=== PATIENT | female | born 1955 | race Caucasian/White ===

== ENCOUNTER → 2016-03-25 | Outpatient (CLI) | payer MEDICARE, OTHER ==
[~2016-03-25] MED LIST: ACET-2267 PO; ACTOS; ACTOS15 MG PO; ACYC800T PO; ALBU8.5H4 IH; ALPR.5T; ALPR0.25 PO; AMIT150T PO; AMIT50TA3 PO; AMLO5TAB2 PO; AMT50T; ASPI-983 PO; ATEN50TA PO; ATOR10TA PO; AZIT-21 PO; BUDE10.22 IH; BUTA-234 PO; CALC-250 PO; CEFD300C3 PO; CETI-265 PO; CETI10TA17 PO; CHOL100048 PO; CHOL5000 PO; CLOP75TA28 PO; CYCL10TA9 PO; DICYCLOMINE; ENAL20TA PO; FERR160T5 PO; FLUT16SP22 NS; FLUT1DIS26 IH; FOLI-74 PO; GABA-486 PO; GLIP-123; GLIP10TA13 PO; GLIP5TAB13 PO; HYDR-34 PO; HYDR-3923 PO; INSU100V16 SC; INSU100V5 SQ; KETO10TA PO; LACT1CAP62 PO; LEVO750T39 PO; LIRA0.6P SQ; LORA0.5T PO; LVT.1T; LVT.1T PO; MECL-106 PO; MECL-124 PO; METF-380 PO; METF1000 PO; METO-270 PO; METO-272 PO; MGX400T PO; MONT10TA24 PO; Multivitamins/Minerals Therap PO; OMEP20TA2 PO; ONDA4TAB8 SL; PNT40TEC PO; PRD20T PO; PRM25T PO; PROM25TA14 PO; PROMETRIUM; RT-ALBUINH IH; SULF1TAB38 PO; TICA90TA PO; TRAM50TA2 PO; TRM50T PO; ZLP10T PO
== END ==
LOC: LAB 11:07
PROVIDERS: ATTEND Internal Medicine Cardiovascular Disease
DX: R07.89 Other chest pain (principal); I25.10 Atherosclerotic heart disease of native coronary artery without angina pectoris; E11.9 Type 2 diabetes mellitus without complications; I10 Essential (primary) hypertension; E78.2 Mixed hyperlipidemia
CPT/HCPCS: 36415; 84484

== ENCOUNTER → 2016-03-26 | Outpatient (CLI) | payer MEDICARE, OTHER ==
[~2016-03-26] MED LIST changes: +CATHETER FLUSH 10 ML SYR IV PRN; +REGADENOSON 0.4 MG/5 ML SYR (LEXISCAN) IV ONE
[2016-03-26 09:08] VITALS: BP 134/59
--- NOTE | 2016-03-27 07:45 | STRESS TEST ---
PROCEDURE PHYSICIAN: NGHIA GUTIERREZ DATE OF PROCEDURE: 03/26/2016 LEXISCAN MYOVIEW STRESS TEST REPORT: REFERRING PHYSICIAN: Dr. Colindres. INDICATION: Chest pain. BASELINE HEART RATE: 106 BASELINE BLOOD PRESSURE: 136/52 BASELINE EKG: Sinus rhythm with no ischemic changes. IN SUMMARY: The patient was injected with 10.58 mCi of technetium 99 Myoview and the resting images were obtained. Then the patient received 0.4 mg of Lexiscan followed by 30.6 mCi of technetium 99 Myoview. Throughout the test, there were no EKG changes. The resting and stress images were reviewed and compared in the short axis, horizontal long axis, and vertical long axis views. Review of the images showed good radiotracer uptake with no significant ischemia or infarction on SPECT images. SSS is 3, SDS 3, TID value 0.87. On the gated images, the left ventricle appeared to be normal size with normal contractility. Calculated ejection fraction 69%. IN CONCLUSION: 1. The patient tolerated Lexiscan well. 2. Typical female pattern with no significant ischemia or infarction on SPECT images. 3. Normal left ventricular size with normal contractility. Calculated ejection fraction 69%. Job ID: [id number] Dictated Date: 03/26/2016 16:26:52 Superintendent Sales Date: 03/27/2016 07:41:36 / [email or web address]
== END ==
LOC: CARD 06:47
PROVIDERS: ATTEND Internal Medicine Cardiovascular Disease
DX: R07.89 Other chest pain (principal); I25.10 Atherosclerotic heart disease of native coronary artery without angina pectoris; I10 Essential (primary) hypertension; E78.2 Mixed hyperlipidemia; E11.9 Type 2 diabetes mellitus without complications
CPT/HCPCS: 78452; 93017

== ENCOUNTER 2016-04-07 00:39 | Emergency (ER) | payer MEDICARE, OTHER ==
[~2016-04-07] VITALS: Ht 162.6 cm; Wt 107.0 kg
[~2016-04-07 00:39] MED LIST changes: -CALC-250 PO; -CATHETER FLUSH 10 ML SYR IV PRN; -CLOP75TA28 PO; -INSU100V16 SC; -INSU100V5 SQ; -LEVO750T39 PO; -LIRA0.6P SQ; -MECL-106 PO; -METO-270 PO; -METO-272 PO; -Multivitamins/Minerals Therap PO; -ONDA4TAB8 SL; -PROM25TA14 PO; -REGADENOSON 0.4 MG/5 ML SYR (LEXISCAN) IV ONE
[2016-04-07 00:58] LABS: BASOPHILS # (AUTO) 0.1 10^3/uL (0.0-0.1); BASOPHILS % (AUTO) 1 % (0-10); EOSINOPHILS # (AUTO) 0.3 10^3/uL (0.0-0.3); EOSINOPHILS % (AUTO) 3 % (0-10); LYMPHOCYTES # (AUTO) 2.4 X 10^3 (1.0-4.0); LYMPHOCYTES % (AUTO) 25 % (12-44); MEAN CORPUSCULAR HEMOGLOBIN 26 PG (25-34); MEAN CORPUSCULAR HGB CONC 31 G/DL (32-36); MEAN CORPUSCULAR VOLUME 84 FL (80-99); MEAN PLATELET VOLUME 9.9 FL (7.4-10.4); MONOCYTES # (AUTO) 0.5 X 10^3 (0.0-1.0); MONOCYTES % (AUTO) 5 % (0-12); NEUTROPHILS # (AUTO) 6.4 X 10^3 (1.8-7.8); NEUTROPHILS % (AUTO) 67 % (42-75); PLATELET COUNT 257 10^3/uL (130-400); RED BLOOD COUNT 3.93 10^6/uL (4.35-5.85); RED CELL DISTRIBUTION WIDTH 14.3 % (10.0-14.5); WHITE BLOOD COUNT 9.6 10^3/uL (4.3-11.0)
[2016-04-07] MEDS ORDERED: ONDANSETRON 4 MG/2 ML (SDV) Z0FRAN IVP ONE (01:00)
[2016-04-07 01:09] LABS: MAGNESIUM 1.6 MG/DL (1.8-2.4)
[2016-04-07] MEDS ORDERED: BUDE10.22 IH (01:11)
[2016-04-07] MEDS ORDERED: CLOP75TA28 PO (01:11)
[2016-04-07] MEDS ORDERED: CYCL10TA9 PO (01:11)
[2016-04-07] MEDS ORDERED: MECL-106 PO ×2 (01:11→03:23)
[2016-04-07] MEDS ORDERED: LIRA0.6P SQ (01:11)
[2016-04-07] MEDS ORDERED: METO-270 PO (01:11)
[2016-04-07] MEDS ORDERED: AMIT50TA3 PO (01:11)
[2016-04-07] MEDS ORDERED: NS IV 500 ML 500 ML IV ONE (01:21)
[2016-04-07] MEDS ORDERED: PROMETHAZINE INJ 25 MG/ML (PHENERGAN) AMP IVP ONE (01:30)
[2016-04-07] MEDS ORDERED: MECLIZINE 25 MG (ANTIVERT) TAB PO ONE (01:30)
[2016-04-07 01:37] LABS: THYROID STIMULATING HORMONE 5.21 UIU/ML (0.35-4.94); TROPONIN I < 0.30 NG/ML (<0.30)
[2016-04-07 01:42] LABS: ALBUMIN 3.9 G/DL (3.2-4.5); BILIRUBIN,TOTAL 0.2 MG/DL (0.1-1.0); CALCIUM 8.9 MG/DL (8.5-10.1); CREATININE SERUM 1.03 MG/DL (0.60-1.30); POTASSIUM 4.8 MMOL/L (3.6-5.0); TOTAL PROTEIN 6.6 G/DL (6.4-8.2)
--- NOTE | 2016-04-07 01:47 | ED General ---
General Chief Complaint: Dizziness/Syncope Stated Complaint: OVERDOSE OF INSULIN Nursing Triage Note: pt reports taking 18units of insulin and feeling dizzy. fsbs 267. Nursing Sepsis Screen: No Definite Risk Source of Information: Patient Exam Limitations: No Limitations History of Present Illness Time Seen by Provider: 00:51 Initial Comments This 60-year-old woman presents to the emergency room with complaints of dizziness, nausea, and vomiting. She reports some visual disturbance as well although her gross finger discrimination is intact. She has some visual problems at baseline because of cataracts that are inoperable while she is on Plavix. She has a history of coronary artery disease with prior stent placement and takes Plavix. She is not a have any chest pain or shortness of breath at present. She has some mild left upper quadrant discomfort which may be associated with the vomiting. She has a history of problems with dizziness or vertigo treated with meclizine. She reports this episode of dizziness is worse than her prior episodes. She presents symptoms that she had an overdose of insulin as she was just recently started on Basaglar which she took not long before symptoms started. Fingerstick blood sugar was 267. Dizziness is present even without head movement but seems to be worse with movement of the head, particularly to the left. Allergies and Home Medications Allergies Coded Allergies: Penicillins (Verified Allergy, Unknown, 10/22/06) acetaminophen (Verified Allergy, Unknown, 10/22/06) codeine (Verified Allergy, Unknown, UPSET STOMACH, 10/23/06) morphine (Unverified Allergy, Unknown, 12/12/14) propoxyphene (Verified Allergy, Unknown, 10/22/06) topiramate (Verified Allergy, Unknown, 10/22/06) Home Medications Albuterol Sulfate 18 Gm Hfa.aer.ad 1-2 PUFF IH QID (Reported) Amitriptyline HCl 50 Mg Tablet 50 MG PO UD (Reported) Aspirin 81 Mg Tablet.dr #100 81 MG PO DAILY Prescribed by: NGHIA GUTIERREZ on 12/27/15 0741 Atorvastatin Calcium 10 Mg Tablet #30 10 MG PO DAILY Prescribed by: NGHIA GUTIERREZ on 12/27/15 0742 Budesonide/Formoterol Fumarate 10.2 Gm Hfa.aer.ad 2 PUFF IH BID (Reported) Cetirizine HCl 10 Mg Tablet 10 MG PO DAILY (Reported) Clopidogrel Bisulfate 75 Mg Tablet #90 1 TAB PO UD (Reported) Cyclobenzaprine HCl 10 Mg Tablet 10 MG PO UD (Reported) Enalapril Maleate 20 Mg Tablet 20 MG PO DAILY (Reported) Fluticasone Propionate 16 Gm [place].susp 2 SPRAYS NS HS (Reported) Gabapentin 100 Mg Capsule 200 MG PO TID (Reported) TAKES 2 (100MG) CAPSULES Glipizide 10 Mg Tablet 10 MG PO BID (Reported) Hydralazine HCl 25 Mg Tablet 25 MG PO BID (Reported) Levothyroxine Sodium 100 Mcg Tablet 100 MCG PO DAILY (Reported) Liraglutide 0.6 Mg/0.1 Ml Pen.injctr 1.2 MG SQ UD (Reported) Lorazepam 0.5 Mg Tablet 0.5 MG PO TID PRN PRN ANXIETY (Reported) Meclizine HCl 25 Mg Tablet 25 MG PO UD (Reported) Meclizine HCl 25 Mg Tablet #30 25 MG PO Q6H PRN PRN DIZZINESS Prescribed by: DAVIN ADHIKARI on 04/07/16322 Metformin HCl 1,000 Mg Tablet #180 1 TAB PO BID (Reported) Metoprolol Succinate 25 Mg Tab.er.24h #90 1 TAB PO UD (Reported) Ondansetron 4 Mg Tab.rapdis #10 4 MG SL Q4H PRN PRN NAUSEA/VOMITING Prescribed by: DAVIN ADHIKARI on 04/07/16322 Promethazine HCl 25 Mg Tablet #10 25 MG PO Q6H PRN PRN NAUSEA/VOMITING Prescribed by: DAVIN ADHIKARI on 04/07/163 Constitutional: no symptoms reported EENTM: see HPI Respiratory: no symptoms reported Cardiovascular: no symptoms reported Gastrointestinal: see HPI Genitourinary: no symptoms reported : No Musculoskeletal: no symptoms reported Skin: no symptoms reported Psychiatric/Neurological: See HPI Hematologic/Lymphatic: No Symptoms Reported Past Msvplyo-Bzqrgv-Udwrmy Hx Patient Social History Alcohol Use: Denies Use Recreational Drug Use: No Smoking Status: Never a Smoker Recent Foreign Travel: No Contact w/Someone Who Travel: No Recent Infectious Disease Expo: No Recent Hopitalizations: No Physical Abuse Screen: No Sexual Abuse: No Immunizations Up To Date Tetanus Booster (TDap): Unknown Date of Pneumonia Vaccine: Jan 06, 2008 Date of Influenza Vaccine: Dec 19, 2014 Seasonal Allergies Seasonal Allergies: No Surgeries HX Surgeries: Yes (FOOT) Surgeries: Appendectomy, Coronary Stent, Gallbladder, Orthopedic, Thyroidectomy Respiratory Hx Respiratory Disorders: Yes (CPAP) Respiratory Disorders: Asthma, Sleep Apnea, COPD Cardiovascular Hx Cardiac Disorders: Yes Cardiac Disorders: Cardiomyopathy, Coronary Artery Disease, High Cholesterol, Hypertension Neurological Hx Neurological Disorders: No 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 System : No Hx 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 Disorders: No Sexually Transmitted Disease: No SOLUTION SPEC History: Menopausal Genitourinary Hx Genitourinary Disorders: No Gastrointestinal Hx Gastrointestinal Disorders: No Musculoskeletal Hx Musculoskeletal Disorders: Yes (ARTHRITIS, LUPUS) Musculoskeletal Disorders: Arthritis Endocrine Hx Endocrine Disorders: Yes Endocrine Disorders: Diabetes, Insulin dep, Hypothyroidsim HEENT HX ENT Disorders: Yes (19 ROOT CANALS, TEETH MISSING) Cancer Hx Cancer: No Psychosocial Hx Psychiatric Problems: Yes Behavioral Health Disorders: Anxiety Integumentary HX Skin/Integumentary Disorder: No Blood Transfusions Hx Blood Disorders: No Adverse Reaction to a Blood Tr: No Family Medical History Family Medial History: Patient reports no known family medical history. Physical Exam Vital Signs Vital Sign - Last 12Hours 04/07/16 00:46 Temp 96.5 Pulse 93 Resp 18 B/P 157/94 Pulse Ox 97 O2 Delivery Room Air Capillary Refill : Less Than 3 Seconds General Appearance: No Apparent Distress WD/WN HEENT: PERRL/EOMI TMs Normal Normal ENT Inspection Pharynx Normal Neck: Normal Inspection SuppleNo Carotid Bruit Respiratory: Lungs Clear Normal Breath Sounds No Accessory Muscle Use No Respiratory Distress Cardiovascular: Regular Rate, Rhythm No Edema No Murmur Normal Peripheral Pulses Gastrointestinal: Normal Bowel Sounds Soft Tenderness (minimal on the left upper quadrant) Back: Normal Inspection Extremity: Normal Inspection No Pedal Edema Neurologic/Psychiatric: Alert Oriented x3 No Motor/Sensory Deficits 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 Norm as Tested Skin: Normal Color Warm/Dry Progress/Results/Core Measures Results/Orders Lab Results Laboratory Tests Test 04/07/16 00:45 04/07/16 01:55 Range/Units Alanine Aminotransferase (ALT/SGPT) 34 0-55 U/L Albumin 3.9 3.2-4.5 G/DL Alkaline Phosphatase 120 40-136 U/L Anion Gap 13 5-14 MMOL/L Aspartate Amino Transf (AST/SGOT) 32 5-34 U/L BUN/Creatinine Ratio 21 Basophils # (Auto) 0.1 0.0-0.1 10^3/uL Basophils (%) (Auto) 1 0-10 % Blood Urea Nitrogen 22 H 7-18 MG/DL Calcium Level 8.9 8.5-10.1 MG/DL Carbon Dioxide Level 19 L 21-32 MMOL/L Chloride Level 103 98-107 MMOL/L Creatinine 1.03 0.60-1.30 MG/DL Eosinophils # (Auto) 0.3 0.0-0.3 10^3/uL Eosinophils (%) (Auto) 3 0-10 % Estimat Glomerular Filtration Rate 54 Free Thyroxine 0.97 0.70-1.48 NG/DL Glucometer 267 H 70-110 MG/DL Glucose Level 259 H 70-105 MG/DL Hematocrit 33 L 35-52 % Hemoglobin 10.3 L 11.5-16.0 G/DL Lipase 56 8-78 U/L Lymphocytes # (Auto) 2.4 1.0-4.0 X 10^3 Lymphocytes (%) (Auto) 25 12-44 % Magnesium Level 1.6 L 1.8-2.4 MG/DL Mean Corpuscular Hemoglobin 26 25-34 PG Mean Corpuscular Hemoglobin Concent 31 L 32-36 G/DL Mean Corpuscular Volume 84 80-99 FL Mean Platelet Volume 9.9 7.4-10.4 FL Monocytes # (Auto) 0.5 0.0-1.0 X 10^3 Monocytes (%) (Auto) 5 0-12 % Neutrophils # (Auto) 6.4 1.8-7.8 X 10^3 Neutrophils (%) (Auto) 67 42-75 % Platelet Count 257 130-400 10^3/uL Potassium Level 4.8 3.6-5.0 MMOL/L Red Blood Count 3.93 L 4.35-5.85 10^6/uL Red Cell Distribution Width 14.3 10.0-14.5 % Sodium Level 135 135-145 MMOL/L TSH [place] Testing 5.21 H 0.35-4.94 UIU/ML Thyroid Stimulating Hormone (TSH) 5.21 H 0.35-4.94 UIU/ML Total Bilirubin 0.2 0.1-1.0 MG/DL Total Protein 6.6 6.4-8.2 G/DL Troponin I < 0.30 <0.30 NG/ML White Blood Count 9.6 4.3-11.0 10^3/uL Urine Bacteria TRACE /HPF Urine Bilirubin NEGATIVE NEGATIVE Urine Casts NONE /LPF Urine Clarity SLIGHTLY CLOUDY Urine Color YELLOW Urine Crystals NONE /LPF Urine Culture Indicated NO Urine Glucose (UA) 4+ H NEGATIVE Urine Ketones NEGATIVE NEGATIVE Urine Leukocyte Esterase 1+ H NEGATIVE Urine Mucus SMALL H /LPF Urine Nitrite NEGATIVE NEGATIVE Urine Protein NEGATIVE NEGATIVE Urine RBC NONE /HPF Urine RBC (Auto) NEGATIVE NEGATIVE Urine Specific [place] 1.020 1.016-1.022 Urine Squamous Epithelial Cells 10-25 H /HPF Urine Urobilinogen NORMAL NORMAL MG/DL Urine WBC RARE /HPF Urine pH 5 5-9 My Orders Orders-DAVIN DODSON MD Cbc With Automated Diff (04/07/16 00:49) Magnesium (04/07/16 00:49) Thyroid Analyzer (04/07/16 00:49) Troponin I (04/07/16 00:49) Ua Culture If Indicated (04/07/16 00:49) Influenza A And B Antigens (04/07/16 00:49) Accucheck Stat ONCE (04/07/16 00:49) Saline Lock/Iv-Start (04/07/16 00:49) Ekg Tracing (04/07/16 00:49) Monitor-Rhythm Ecg Trace Only (04/07/16 00:49) Chest 1 View, Ap/Pa Only (04/07/16 00:49) Ondansetron Injection (Zofran Injectio (04/07/16 01:00) Thyroid Stimulating Hormone (04/07/16 00:52) Free T4 (Free Thyroxine) (04/07/16 00:52) Ns Iv 500 Ml (Sodium Chloride 0.9%) (04/07/16 01:21) Meclizine Tablet (Antivert Tablet) (04/07/16 01:30) Promethazine Injection (Phenergan Injec (04/07/16 01:30) Comprehensive Metabolic Panel (04/07/16 01:24) Ct Angio Head/Neck (04/07/16 01:40) Lipase (04/07/16 01:50) Iohexol Injection (Omnipaque 350 Mg/Ml 1 (04/07/16 02:00) Ns (Ivpb) (Sodium Chloride 0.9% Ivpb Bag (04/07/16 02:00) Rx-Ondansetron Po (Rx-Zofran Po) (04/07/16 03:16) Rx-Promethazine Hcl (Rx-Phenergan Supp) (04/07/16 03:16) Rx-Meclizine Hcl (Rx-Antivert) (04/07/16 03:16) Medications Given in ED Current Medications Medications Dose Ordered Sig/Katrina Route Start Time Stop Time Status Last Admin Dose Admin Iohexol 85 ml ONCE ONCE IV 04/07/16 02:00 04/07/16 02:31 DC 04/07/16 02:13 85 ML Meclizine HCl 25 mg ONCE ONCE PO 04/07/16 01:30 04/07/16 01:31 DC 04/07/16 01:25 25 MG Ondansetron HCl 8 mg 8 mg ONCE ONCE IVP 04/07/16 01:00 04/07/16 01:02 DC 04/07/16 00:56 8 MG Promethazine HCl 12.5 mg ONCE ONCE IVP 04/07/16 01:30 04/07/16 01:31 DC 04/07/16 01:25 12.5 MG Sodium Chloride 80 ml ONCE ONCE IV 04/07/16 02:00 04/07/16 02:31 DC 04/07/16 02:13 80 ML Sodium Chloride 500 ml @ 0 mls/hr Q0M ONCE IV 04/07/16 01:21 04/07/16 01:23 DC 04/07/16 01:26 0 MLS/HR Vital Signs/I&O Vital Sign - Last 12Hours 04/07/16 04/07/16 00:46 03:26 Temp 96.5 98.7 Pulse 93 84 Resp 18 16 B/P 157/94 Pulse Ox 97 97 O2 Delivery Room Air Room Air Blood Pressure Mean: 115 Progress Note #1: Time: 02:00 Progress Note Patient's nausea has been treated in and Phenergan. She received 500 mL normal saline IV bolus. Oral meclizine has also been administered. She reports the nausea has resolved and the dizziness is modestly improved. Patient is on Plavix. CT of the head and neck was ordered as a means to evaluate posterior circulation, carotid arteries, and evaluate for acute stroke or hemorrhage. Anabel maneuver will be attempted once she returns. Progress Note #2: Progress Note Patient reported Apley maneuver did improve her dizziness but it was still present, worsening with movement to the right or left. CT angiogram of the head and neck was viewed by me, stat rad report reviewed, and results discussed with the radiologist. While there was a severe stenosis suspected in the proximal right internal carotid, this was not felt to be critical. Bilateral carotid arteries and in the vertebral arteries appeared patent. Furthermore, symptoms of dizziness would not correlate well with stenosis in the anterior circulation. The radiologist recommended outpatient carotid ultrasound follow- up. Progress Note #3: Progress Note Patient was dispensed with meclizine, or meclizine suppositories, and sublingual Zofran. Close follow-up was recommended. ECG Initial ECG Impression Date: Apr 07, 2016 Initial ECG Impression Time: 00:52 Initial ECG Rate: 76 Initial ECG Rhythm: Normal Sinus Comment Normal sinus rhythm with no ST elevation or depression. No abnormal intervals or axis deviation. No acute change from prior. Diagnostic Imaging Diagonstic Imaging: Xray Plain Films/CT/US/NM/MRI: chest Comments Chest x-ray viewed by me. Report not yet available. There is cardiomegaly stable from prior. No acute abnormalities appreciated. Diagonstic Imaging: CT Plain Films/CT/US/NM/MRI: head (and neck) Comments CT angiogram of the head and neck viewed by me and stat rad report reviewed. Findings discussed with radiologist Dr. Lynch. Moderate to severe stenosis was noted in the right internal carotid artery. However, she did not feel this correlated with symptoms of dizziness as the vertebral arteries were patent. She also stated the degree of stenosis did not appear critical and could be further evaluated by outpatient ultrasound. No hemorrhage was identified. Departure Impression Impression: Primary Impression: Vertigo Additional Impressions: Nausea & vomiting Qualified Code: R11.2 - Nausea with vomiting, unspecified Carotid stenosis Qualified Code: I65.23 - Occlusion and stenosis of bilateral carotid arteries Disposition: 01 HOME, SELF-CARE Condition: Improved Departure-Patient Inst. Decision time for Depature: 03:00 Referrals: KIYA HERMAN MD (PCP/Family) Primary Care Physician Patient Instructions: Vertigo (a Type of Dizziness) (DC) Add. Discharge Instructions: For nausea and vomiting, first try Zofran (ondansetron) dissolved under the tongue every 4 hours as needed. For nausea not controlled by Zofran, you may add Phenergan (promethazine), either the suppositories received in the ER or the pills prescribed. For dizziness you may take meclizine as prescribed. You may also try the Ativan you have at home. Some narrowing of the carotid arteries in your neck was identified on the CT scan. This should be followed by your primary care provider or medical equipment technician with ultrasound imaging. Return to the emergency room if symptoms worsen. All discharge instructions reviewed with patient and/or family. Voiced understanding. Scripts Promethazine HCl (Promethazine Tablet)25 Mg [id number] Mg PO Q6H PRN NAUSEA/ VOMITING #10 TAB Prov:DAVIN DODSON MD 04/07/16 Ondansetron (Zofran Odt)4 Mg Tab.rapdis4 Mg SL Q4H PRN NAUSEA/VOMITING #10 TAB Prov:DAVIN DODSON MD 04/07/16 Meclizine HCl 25 Mg [id number] Mg PO Q6H PRN DIZZINESS #30 TAB Prov:DAVIN DODSON MD 04/07/16 Copy Copies To 1: KIYA HERMAN MD Copies To 2: NGHIA GUTIERREZ MD, JOSHUA T MD Apr 07, 2016 01:47
[2016-04-07] MEDS ORDERED: NS 100 ML (IVPB) BAG IV ONE (02:00)
[2016-04-07] MEDS ORDERED: IOHEXOL 350 MG/ML 100 ML (OMNIPAQUE 350) VIAL IV ONE (02:00)
[2016-04-07 02:04] LABS: BILIRUBIN,URINE NEGATIVE (NEGATIVE); KETONES,URINE NEGATIVE (NEGATIVE); LEUKOCYTE ESTERASE ,URINE 1+ (NEGATIVE); NITRITE,URINE NEGATIVE (NEGATIVE); PH,URINE 5 (5-9); PROTEIN,URINE NEGATIVE (NEGATIVE); UROBILINOGEN,URINE NORMAL (NORMAL)
[2016-04-07 02:16] LABS: WBC,URINE RARE /HPF
[2016-04-07] MEDS ORDERED: RX-MECLIZINE HCL (ANTIVERT) 25 MG TAB #4 PPK PO STA (03:16)
[2016-04-07] MEDS ORDERED: RX-ONDANSETRON 4 MG ODT (ZOFRAN) PPK #4 SL STA (03:16)
[2016-04-07] MEDS ORDERED: RX-PHENERGAN 25 MG SUPP PPK#3 PR STA (03:16)
[2016-04-07] MEDS ORDERED: ONDA4TAB8 SL (03:23)
[2016-04-07] MEDS ORDERED: PROM25TA14 PO (03:23)
[2016-04-07 03:26] VITALS: BP 120/73
--- NOTE | 2016-04-07 07:14 | Diagnostic Imaging Report ---
INDICATION: Dizziness and cardiomegaly COMPARISON STUDY: Chest dated 12-26-15. FINDINGS: Portable upright view of the chest demonstrates stable cardiomegaly with normal vascularity. The lungs are clear. There are no pleural effusions. IMPRESSION: Stable cardiomegaly. Dictated by: Dictated on workstation # [id number]
--- NOTE | 2016-04-07 07:31 | Diagnostic Imaging Report ---
PROCEDURE: CT angiography of the head and CT angiography of the neck with and without contrast. TECHNIQUE: Contiguous noncontrast images were obtained from the skull base through the vertex. After intravenous contrast administration, helical CT angiography of the neck was performed. Source data was reformatted into multiple MIP projections. Delayed post contrast acquisition was also obtained. INDICATION: Dizziness, possible cerebral occlusion. CONTRAST: 85 cc of Omnipaque 350 was given intravenously. FINDINGS: Noncontrast CT scanning of the head demonstrates mild atrophy. No mass effect, midline shift, hemorrhage, or extra-axial fluid collections are present. The bone windows appear normal. CTA of the head demonstrates no aneurysms, arterial venous malformations, or dissection. The vertebrobasilar system appears normal. The right vertebral artery is slightly larger. The anterior middle cerebral arteries appear normal. CTA of the chest demonstrates normal takeoff of the great vessels from the arch. The vertebral arteries appear unremarkable. No dissection or stenosis is present. Right vertebral artery is slightly dominant. There is some artifact near the takeoff of both vertebral arteries. Mixed soft and hard plaque is seen at the right carotid bifurcation extending into the internal carotid artery with probably significant stenosis in the 70 to 80% range. The left carotid also has mixed plaque in the bulb and internal carotid artery. There is probably closer to 60% stenosis. Mild degenerative changes seen in the cervical spine. Posterior osteophytes are present at the T2-T3 level. Soft tissues appear normal. No fluid is seen in the mastoid air cells or paranasal sinuses. Degenerative changes are present in the acromioclavicular joints. The lung apices are clear. IMPRESSION: 1. There is significant plaque in both carotid bulbs and internal carotid arteries right worse than the left. Consider ultrasound for further evaluation. 2. Mild atrophy is present. 3. There are some mild degenerative changes of the spine. 4. Degenerative changes are present in the acromioclavicular joints. Dictated by: Dictated on workstation # [id number]
[2016-05-15] MEDS ORDERED: METO-272 PO (10:28)
[2016-05-15] MEDS ORDERED: AMLO5TAB2 PO (10:28)
[2016-05-15] MEDS ORDERED: LEVO750T39 PO (10:28)
[2016-05-15] MEDS ORDERED: CALC-250 PO (10:28)
[2016-05-15] MEDS ORDERED: GLIP5TAB13 PO (10:28)
[2016-05-15] MEDS ORDERED: Multivitamins/Minerals Therap PO (10:28)
[2016-05-15] MEDS ORDERED: MONT10TA24 PO (10:28)
[2016-05-15] MEDS ORDERED: GABA-486 PO (10:28)
[2016-05-15] MEDS ORDERED: INSU100V16 SC (10:28)
[2016-05-15] MEDS ORDERED: INSU100V5 SQ (10:28)
== END 2016-04-07 03:26 | disposition home or self-care (01) ==
LOC: EDUNIT# 00:39 → ER 00:41
DX: R11.2 Nausea with vomiting, unspecified (principal); H81.12 Benign paroxysmal vertigo, left ear; I65.23 Occlusion and stenosis of bilateral carotid arteries; I51.7 Cardiomegaly; M19.011 Primary osteoarthritis, right shoulder; M19.012 Primary osteoarthritis, left shoulder; I10 Essential (primary) hypertension; E11.9 Type 2 diabetes mellitus without complications; I25.10 Atherosclerotic heart disease of native coronary artery without angina pectoris; J44.9 Chronic obstructive pulmonary disease, unspecified; Z79.84 Long term (current) use of oral hypoglycemic drugs; Z79.02 Long term (current) use of antithrombotics/antiplatelets; Z79.899 Other long term (current) drug therapy; Z79.4 Long term (current) use of insulin
CPT/HCPCS: 36415; 70496; 70498; 71010; 80053; 81000; 82962; 83690; 83735; 84439; 84443; 84484; 85025; 93005; 93041; 96374; 96375

== ENCOUNTER → 2016-04-16 | Outpatient (CLI) | payer MEDICARE, OTHER ==
[~2016-04-16] MED LIST changes: +CALC-250 PO; +CLOP75TA28 PO; +INSU100V16 SC; +INSU100V5 SQ; +LEVO750T39 PO; +LIRA0.6P SQ; +MECL-106 PO; +METO-270 PO; +METO-272 PO; +Multivitamins/Minerals Therap PO; +ONDA4TAB8 SL; +PROM25TA14 PO
[2016-04-16 09:19] LABS: MEAN PLATELET VOLUME 10.4 FL (7.4-10.4); RED CELL DISTRIBUTION WIDTH 14.7 % (10.0-14.5); WHITE BLOOD COUNT 8.7 10^3/uL (4.3-11.0)
[2016-04-16 09:26] LABS: BILIRUBIN,URINE NEGATIVE (NEGATIVE); KETONES,URINE NEGATIVE (NEGATIVE); LEUKOCYTE ESTERASE ,URINE 1+ (NEGATIVE); NITRITE,URINE NEGATIVE (NEGATIVE); PH,URINE 5 (5-9); PROTEIN,URINE 2+ (NEGATIVE); UROBILINOGEN,URINE NORMAL (NORMAL)
[2016-04-16 09:40] LABS: BILIRUBIN,TOTAL 0.3 MG/DL (0.1-1.0); CREATININE SERUM 1.04 MG/DL (0.60-1.30); POTASSIUM 4.7 MMOL/L (3.6-5.0); TOTAL PROTEIN 7.2 G/DL (6.4-8.2)
--- NOTE | 2016-04-16 12:29 | Diagnostic Imaging Report ---
PA and lateral views of the chest. INDICATION: Preoperative evaluation. COMPARISON: 04/07/2016. FINDINGS: The lungs are clear. The heart size is mildly enlarged. No effusion or pneumothorax. The mediastinum and kesha appear unremarkable. IMPRESSION: Mild cardiomegaly. Dictated by: Dictated on workstation # [id number]
== END ==
LOC: CARD 08:35
PROVIDERS: ATTEND Thoracic Surgery (Cardiothoracic Vascular Surgery)
DX: Z01.810 Encounter for preprocedural cardiovascular examination (principal); Z01.811 Encounter for preprocedural respiratory examination; Z01.812 Encounter for preprocedural laboratory examination; I65.23 Occlusion and stenosis of bilateral carotid arteries
CPT/HCPCS: 36415; 71020; 80053; 81000; 85027; 93005

== ENCOUNTER 2016-05-06 11:10 | Inpatient (IN) | payer MEDICARE, OTHER ==
[~2016-05-06] VITALS: Ht 162.6 cm; Wt 107.0 kg
[~2016-05-06 11:10] MED LIST changes: -CALC-250 PO; -INSU100V16 SC; -INSU100V5 SQ; -LEVO750T39 PO; -METO-272 PO; -Multivitamins/Minerals Therap PO
[2016-05-06 12:35] VITALS: BP 146/61
[2016-05-06] MEDS ORDERED: MECLIZINE 25 MG (ANTIVERT) TAB PO PRN (13:30)
[2016-05-06] MEDS ORDERED: NITROGLYCERIN SUBLINGUAL 0.4 MG TAB (NITROSTAT) SL PRN (13:30)
[2016-05-06] MEDS ORDERED: FLU TRIvalent (5 YOA+) 2016-17 (AFLURIA) 0.5 ML IM ONE (13:30)
[2016-05-06] MEDS ORDERED: RT-ALBUTEROL SULF 2.5 MG/3 ML PRE-MIX VIAL INH PRN (13:45)
[2016-05-06] MEDS ORDERED: NON-FORMULARY MEDICATION 1 EA EA PV PRN (13:45)
[2016-05-06] MEDS ORDERED: CLOTRIMAZOLE 1% VAG CR (GYNE LOTRIMIN) 45 GM PV PRN (14:00)
--- NOTE | 2016-05-06 14:16 | Physical Therapy Evaluation ---
PT Evaluation-General Medical Diagnosis Admission Date May 06, 2016 at 13:01 Medical Diagnosis: right carotid endarterectomy Onset Date: Apr 24, 2016 Therapy Diagnosis Therapy Diagnosis: generalized weakness and debility Height/Weight Height (Feet): 5 Height (Inches): 4.00 Weight (Pounds): 236 Weight (Ounces): 0.0 Precautions Precautions/Isolations: Fall Prevention, Standard Precautions Weight Bear Status Location Restriction: LE Bilateral Referral Physician: Harry Reason for Referral: Evaluation/Treatment Medical History Pertinent Medical History: CAD, COPD, DM, GERD, HTN, Neuropathy Additional Medical History flash pulmonary edema Current History transfer from [place] Reviewed History: Yes Social History Home: Single Level Current Living Status: Alone Entry Into Home: Stairs With Railing PT Steps Into Home: 2 Prior/Core FIM Prior Level of Function Functional [place] Measure 0=Not Assessed/NA 4=Minimal Assistance 1=Total Assistance 5=Supervision or Setup 2=Maximal Assistance 6=Modified [place] 3=Moderate Assistance 7=Complete [place] Bed Mobility: 6 Transfers (B,C,W/C) (FIM): 6 Gait: 6 uses a cane or FWW PRN PT Evaluation-Current Subjective Patient states she is glad to be back in [place]. Pain Numeric Pain Scale: 0-No Pain Location: No Pain Reported Objective Patient Orientation: Normal For Age Problem Solving: Good ROM/Strength ROM Lower Extremities bilateral LE WFL Strenght Lower Extremities right knee flexion/extension 4/5; hip flexion 4/5; ankle dorsi/plantarflexion 4/ 5 left knee flexion/extension 4/5; hip flexion 4/5; ankle dorsi/plantarflexion 4/5 Integumentary/Posture Integumentary refer to nursing notes Bowel Incontinence: No Bladder Incontinence: No Posture slight flexed hip posture in stand Neuromuscular (Tone, Coordination, Reflexes) grossly intact Sensory Vision: Functional Hearing: Functional Sensation Right Lower Extremit: Impaired Sensation Left Lower Extremity: Impaired Transfers Functional [place] Measure 0=Not Assessed/NA 4=Minimal Assistance 1=Total Assistance 5=Supervision or Setup 2=Maximal Assistance 6=Modified [place] 3=Moderate Assistance 7=Complete IndependenceIRFPAI Quality Coding Scale 6 Independent with activity with or without an assistive device 5 Patient requires set up or clean up by helper. Patient completes activity by themselves 4 Supervision or touching assist (CGA). [employer] provide cues , steadying assist 3 The helper provides less than half the effort to complete the activity 2 The helper provides more than half the effort to complete the activity 1 Dependent. The helper does all the effort to complete an activity 7 Patient refused to complete or attempt activity 9 The patient did not perform the activity before the current illness or injury 88 Not attempted due to Medical conditions or safety concerns Transfers (B, C, W/C) (FIM): 5 Scootin Rollin Roll Left to Right (QC): 5 Supine to/from Sit: 5 Sit to/from Stand: 5 Sit to Lying (QC): 5 Lying to Sitting/Side of Bed(Q: 5 Sit to Stand (QC): 5 Chair/Vmb-ds-Pwxzp Xfer(QC): 5 Car Transfer (QC): 4 patient required assistance from car due to fatigue from trip Gait Does the Patient Walk?: Yes Mode of Locomotion: Walk Anticipated Mode of Locomotion: Walk Gait (FIM): 5 Distance (FIM): 3=150 ft Walk 10 feet (QC): 5 Walk 50 ft with 2 Turns(QC): 5 Walk 150 ft (QC): 5 Walking 10ft/uneven surface-QC: 5 Distance: 150' x 4 Gait Level of Assist: 5 Gait Persons Needed: 1 Gait Assistive Device: FWW Comments/Gait Description slow, steady, functional with FWW Stairs Stairs (FIM): 2 #of Steps: 5 Level of Assist: 4 1 Step (curb) (QC): 4 4 Steps (QC): 4 12 Steps (QC): 9 step to gait sequence Balance Sitting Static: Normal Sitting Dynamic: Normal Standing Static: Normal Standing Dynamic: Normal Picking up an Object (QC): 88 Treatment Patient performed NuStep exercise WL 1 x 20 min to increase cardiopulmonary function. Patient fatigues with activity. Assessment/Needs 60 y.o. female, will benefit from skilled PT to address functional strength and mobility to improve current LOF and to safely return to home with family support at maximum LOF. Rehab Potential: Good PT Short Term Goals Short Term Goals Time Frame: Apr 15, 2016 Transfers (B,C,W/C) (FIM): 5 Gait (FIM): 5 Distance (FIM): 3=150 ft Gait Distance Comment: 200' Gait Level of Assist: 5 Gait Assistive Device: FWW PT Avionics Installer Goals Avionics Installer Goals PT Avionics Installer Goals Time Frame: May 20, 2016 Transfers (B,C,W/C) (FIM): 6 Sit to Lying (QC): 6 Lying-Sitting on Side/Bed(QC): 6 Sit to Stand (QC): 6 Rollin Roll Left to Right (QC): 6 Chair/Myo-oh-Tzlob Xfer(QC): 6 Car Transfer (QC): 6 Does the Patient Walk: Yes Gait (FIM): 6 Gait distance (FIM): 3=150 ft Distance: 250' Walk 10 feet (QC): 6 Walk 10ft-Uneven Surface(QC): 6 Walk 50ft with 2 Turns (QC): 6 Walk 150 ft (QC): 6 Gait Level of Assist: 6 Gait Assistive Device: None, FWW Stairs (FIM): 5 (household exception) # of Steps: 4 1 Step (curb) (QC): 6 4 Steps (QC): 5 12 Steps (QC): 9 Stairs Level Of Assist: 5 Picking up an Object (QC): 6 PT Plan Problem List Problem List: Activity Tolerance, Functional Strength Treatment/Plan Treatment Plan: Continue Plan of Care Treatment Plan: Bed Mobility, Education, Functional Activity Lola, Functional Strength, Gait, Safety, Therapeutic Exercise, Transfers Treatment Duration: May 20, 2016 # of days/week 5-6 Minutes/Day (M-F): 60-90 Minutes/Day (Sat/Cuevas): PRN Pt/Family Agrees w/Plan: Yes Safety Risks/Education Patient Education: Disease Process, Safety Issues Teaching Recipient: Patient Teaching Methods: Discussion Response to Teaching: Verbalize Understanding Discharge Recommendations Therapy D/C Recommendations: Home w/ Family Support Time/GCodes Time In: 1230 Time Out: 1335 Total Billed Treatment Time: 65 Total Billed Treatment 1 visit EVHighC 45 min EX 20 min ARON GAMBLE PT May 06, 2016 14:16
--- NOTE | 2016-05-06 15:08 | ST Cognitive Linguistic Eval ---
Speech Evaluation-General Medical Diagnosis right carotid endarterectomy Onset Date: Apr 24, 2016 Therapy Diagnosis Therapy Diagnosis: Mild Dysarthria Precautions Precautions/Isolations: Fall Prevention, Standard Precautions Referral Referring Physician: Dr. Dheeraj Mcdonald Reason for Referral: Evaluation/Treatment Speech, Language, and Cognition Evaluation Medical History Pertinent Medical History: CAD, COPD, DM, GERD, HTN, Neuropathy Reviewed History: Yes Social History Current Living Status: Alone Speech PLF-Current Status Prior Level of Function The patient denied prior speech, language, or cognitive deficits prior to admission. Subjective The patient was recently admitted to [facility] following a carotid endarterectomy. The patient greeted the clinician appropriately and agreed to participate in the cognitive, speech, and language evaluation on this date. Language Eval: Auditory Comprehends Simple Yes/No Ques: Functional Indent/Objects Multiple Mathew: Functional Ident/Pics in Multiple Mathew: Functional Follows 1-Step Commands: Functional Follows Complex Directions: Functional (a) Follows General Conversations: Functional Language Eval: Verbal Language Completes Spontaneous Greeting: Functional Produces Auto, Serial Info: Functional Imitates Simple Words/Phrases: Functional Word Finding: Functional Requests Basic Needs: Functional States Basic Personal Info: Functional Expresses Complex Ideas: Functional Cognitive Patient Orientation The patient was oriented to month, day, date, year, and rationale for rehabilitation stay. Objective Cognitive Domain Attention: WNL Memory: Mild Problem Solving: Functional Objective Oral Motor/Speech Production The patient demonstrated slightly decreased right labial retraction and facial range of motion resulting in slightly imprecise articulation. The patient remained 100% intelligible in known and unknown contexts. Impression The patient demonstrated mild dysarthria characterized by slightly imprecise articulation. The patient demonstrated cognitive linguistic skills grossly within normal limits for completion of ADL's. Communication/Social Cognition Comprehension: 5 Expression: 5 Social Interaction: 6 Problem Solvin Memory: 5 Speech Patient Assess Expression of Ideas/Wants: Exhibits (3) Understanding [place] Content: Usually Understands (3) Brief Interview-Mental Status: Yes Repetition of Three Words: Three (3) Temporal Orientation: Year: Correct (3) Temporal Orientation: Month: Accurate within 5 days(2) Temporal Orientation: Day: Correct (1) Recall : Wear to say "Sock": Yes, no cue required (2) Recall : Color: Yes, after cueing (1) Recall : Bed: Yes, no cue required (2) Speech Short Term Goals Short Term Goals Short Term Goals 1. The patient will demonstrate oral motor exercises with 90% accuracy, independently. Time Frame-STG: One Week Speech Food Cro[employer] Farm Hand Goals Food Cro[employer] Farm Hand Goals 1. The patient will demonstrate increased labial and facial strength for improved intelligibility with verbal expression. Time Frame: Four Weeks Comprehension: 6 Expression: 5 Social Interaction: 6 Problem Solvin Memory: 6 Speech-Plan Treatment Plan Speech Therapy Treatment Plan: Continue Plan of Care Continue skilled speech services to focus on right facial range of motion and strengthening exercises. Treatment Duration: Jun 03, 2016 # of days/week Four to Five. Visits Per Week: Four to Five. Minutes/Day (M-F): 30 Rehab Potential: Good Safety Risks/Education Teaching Recipient: Patient Teaching Methods: Discussion Response to Teaching: Verbalize Understanding Education Topics Provided: Plan of Care, Results, Recommendations Time Speech Therapy Time In: 15:10 Speech Therapy Time Out: 15:25 Total Billed Time: 15 Billed Treatment Time 1, ANNIE MARTINS May 06, 2016 15:08
--- NOTE | 2016-05-06 15:34 | Occupational Therapy Eval ---
OT Evaluation-General/PLF Medical Diagnosis Admission Date May 06, 2016 at 13:01 Medical Diagnosis: right carotid endarterectomy Onset Date: Apr 24, 2016 Therapy Diagnosis Therapy Diagnosis: weakness, decr activity tolerance, decr self care Height/Weight Height (Feet): 5 Height (Inches): 4.00 Weight (Pounds): 236 Weight (Ounces): 0.0 Precautions Precautions/Isolations: Fall Prevention, Standard Precautions Weight Bear Status Location Restriction: LE Bilateral No lifting greater than 10#, no squatting. Referral Physician: Harry Referral Reason: Evaluation/Treatment Medical History Pertinent Medical History: CAD, COPD, DM, GERD, HTN, Neuropathy Additional Medical History Cardiac stent, lupus, flash pulmonary edema, anemia, asthma, chronic UTIs, carpal tunnel release bilat, osteoporosis, L breast biopsy, anxiety, acute renal failure, hypoxemia, mitral stenosis, pneumonia, bilat TKA and scoliosis per pt report Current History Admitted for carotid endarterectomy on 04-24, with complications of renal failure , pulmonary edema, pneumonia, resulting in admission to ICU for several days Reviewed History: Yes Social History Home: Single Level Current Living Status: Alone Entry Into Home: Stairs With Railing Steps Into Home: 2 Son lives next door ADL-Prior Level of Function ADL PLOF Comments Pt reported that she was able to manage all of her basic ADLs prior to surgery. 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 Pain reported 0/10 Appearance Alert, cooperative, good historian Mental Status/Objective Patient Orientation: Person, Place, Time, Situation Current Glasses/Contacts: Yes Hearing Aids: No Dentures/Partials: Yes (doesn't wear partial) Hand Dominance: Right Upper Extremity ROM Grossly WFL bilat Upper Extremity Sensation Pt reported no problems except some numbness R side of face Upper Extremity Strength Grossly 4/5 bilat Edema: No UE edema noted ADL-Treatment Functional [place] Measure 0=Not Assessed/NA 4=Minimal Assistance 1=Total Assistance 5=Supervision or Setup 2=Maximal Assistance 6=Modified [place] 3=Moderate Assistance 7=Complete IndependenceIRFPAI Quality Coding Scale 6 Independent with activity with or without an assistive device 5 Patient requires set up or clean up by helper. Patient completes activity by themselves 4 Supervision or touching assist (CGA). [place] provide cues , steadying assist 3 The helper provides less than half the effort to complete the activity 2 The helper provides more than half the effort to complete the activity 1 Dependent. The helper does all the effort to complete an activity 7 Patient refused to complete or attempt activity 9 The patient did not perform the activity before the current illness or injury 88 Not attempted due to Medical conditions or safety concerns Eating (FIM): 6 (Pt report. Has partial) Eating (QC): 6 Grooming (FIM): 5 (SBA, FWW at sink to brush teeth, comb hair. Washed face and hands in shower. No makeup) Oral Hygiene (QC): 4 (SBA) Bathing (FIM): 5 (SBA when standing to wash bottom. Washed and dried all parts in shower, shower bench, grab bars, hand held shower. setup) Shower/Bathe Self (QC): 4 (SBA) Upper Body Dressing (FIM): 5 (setup) Upper Body Dressing (QC): 5 Lower Body Dressing (FIM): 5 (SBA when standing to manage clothing, FWW. Struggled to get socks off, shoes without problem. pt educ use of soft sock aid) Lower Body Dressing (QC): 4 (SBA) On/Off Footwear (QC): 4 (SBA, struggled with socks off) Toileting (FIM): 5 (SBA for standing for clothing management, FWW, grab bar, tall toilet. managed clothing and hygiene) Toileting Hygiene (QC): 4 (SBA) Toilet/Commode Transfer (FIM): 5 (SBA on/off tall toilet, grab bar, FWW) Toilet Transfer (QC): 4 (SBA) Shower Transfer (FIM): 5 (SBA, pt educ for hand placement, shower bench, grab bar) Other Treatments Pt walked to gym area, FWW, SBA for safety with no LOB observed. Pt did 10 minutes bilat UE exercise with arm bike set at 10W resistance, with one recovery break. Exercises to help with increasing activity tolerance after long hospitalization. She reported that she uses this same piece of equipment during pulmonary rehab twice a week. Pt education on rehab process and energy conservation technique of pacing. She indicated that she tends to want to just get it done. O2 sats were generally 95%, with HR in 80s after walking to gym and in upper 50s after exercise. Care transferred to PT. Education OT Patient Education: Energy conservation, Exercise program, Modified ADL techniques, Purpose of tx/functional activities, Reviewed precautions, Rehab process, Safety issues, Transfer techniques, Use of adapted equipment Teaching Recipient: Patient Teaching Methods: Demonstration, Discussion Response to Teaching: Verbalize Understanding, Return Demonstration, Reinforcement Needed OT Short Term Goals Short Term Goals Transfers (B,C,W/C) (FIM): 5 OT Intermediate Goals Biofuels Research Scientist Goals Time Frame: May 20, 2016 Eating (FIM): 6 Eating (QC): 6 Groomin Oral Hygiene (QC): 6 Bathing(FIM): 6 Shower/Bathe Self (QC): 6 Upper Body Dressing(FIM): 6 Upper Body Dressing (QC): 6 Lower Body Dressing(FIM): 6 Lower Body Dressing (QC): 6 On/Off Footwear (QC): 6 Toileting(FIM): 6 Toileting Hygiene (QC): 6 Toilet/Commode Transfer(FIM): 6 Toilet/Commode Transfer (QC): 6 Shower Transfer(FIM): 6 Comprehension(FIM): 6 Expression (FIM): 5 Social Interaction(FIM): 6 1=Demonstrate adherence to instructed precautions during ADL tasks. 2=Patient will verbalize/demonstrate understanding of assistive devices/ modifications for ADL. 3=Patient will improve strength/tolerance for activity to enable patient to perform ADL's. OT Education/Plan Problem List/Assessment Assessment: Decreased Activ Tolerance, Decreased UE Strength, Dependent Transfers, Impaired Self-Care Skills Pt would benefit from skilled OT to increase her independence in basic self care to allow her to return to her home to live safely with nearby family support. Discharge Recommendations Plan/Recommendations: Continue POC Treatment Plan/Plan of Care Treatment,Training & Education: Yes Patient would benefit from OT for education, treatment and training to promote independence in ADL's, mobility, safety and/or upper extremity function for ADL' s. Plan of Care: ADL Retraining, Functional Mobility, Group Exercise/Act as Ind ( education, exercise, activity tolerance, functional activities), UE Funct Exercise/Act, UE Neuromus Re-Ed/Coord Treatment Duration: May 20, 2016 # of days/week 5-6 Visits Per Week: 10-11 Minutes/Day (M-F): 75-90 Minutes/Day (Sat/Cuevas): PRN Agreement: Yes Rehab Potential: Good Time/GCodes Start Time: 13:40 Stop Time: 15:10 Total Time Billed (hr/min): 90 Billed Treatment Time visit, 15 minutes evaluation moderate intensity, 45 minutes ADL, 30 minutes exercise PRIYA CHIRINOS OT May 06, 2016 15:34
--- NOTE | 2016-05-06 15:44 | Physical Therapy Daily Note ---
PT Daily Note-Current Subjective Patient agrees to PT. Pain Numeric Pain Scale: 0-No Pain Location: No Pain Reported Mental Status Patient Orientation: Normal For Age Transfers Functional [place] Measure 0=Not Assessed/NA 4=Minimal Assistance 1=Total Assistance 5=Supervision or Setup 2=Maximal Assistance 6=Modified [place] 3=Moderate Assistance 7=Complete IndependenceIRFPAI Quality Coding Scale 6 Independent with activity with or without an assistive device 5 Patient requires set up or clean up by helper. Patient completes activity by themselves 4 Supervision or touching assist (CGA). [place] provide cues , steadying assist 3 The helper provides less than half the effort to complete the activity 2 The helper provides more than half the effort to complete the activity 1 Dependent. The helper does all the effort to complete an activity 7 Patient refused to complete or attempt activity 9 The patient did not perform the activity before the current illness or injury 88 Not attempted due to Medical conditions or safety concerns Exercises Supine Ex: Ankle pumps, Quad Set, Heel Slides, Straight leg raise, Hip abd/add Supine Reps: 10 (bilateral LE in reclined position) Assessment Patient tolerated treatment well and is very fatigued. PT to increase activity as tolerated by patient. PT Short Term Goals Short Term Goals Time Frame: Apr 15, 2016 Transfers (B,C,W/C) (FIM): 5 Gait (FIM): 5 Distance (FIM): 3=150 ft Gait Distance Comment: 200' Gait Level of Assist: 5 Gait Assistive Device: FWW PT Vacuum System Tester Goals Fci Goals PT Fci Goals Time Frame: May 20, 2016 Transfers (B,C,W/C) (FIM): 6 Sit to Lying (QC): 6 Lying-Sitting on Side/Bed(QC): 6 Sit to Stand (QC): 6 Rollin Roll Left to Right (QC): 6 Chair/Sgq-cb-Ejulm Xfer(QC): 6 Car Transfer (QC): 6 Does the Patient Walk: Yes Gait (FIM): 6 Gait distance (FIM): 3=150 ft Distance: 250' Walk 10 feet (QC): 6 Walk 10ft-Uneven Surface(QC): 6 Walk 50ft with 2 Turns (QC): 6 Walk 150 ft (QC): 6 Gait Level of Assist: 6 Gait Assistive Device: None, FWW Stairs (FIM): 5 (household exception) # of Steps: 4 1 Step (curb) (QC): 6 4 Steps (QC): 5 12 Steps (QC): 9 Stairs Level Of Assist: 5 Picking up an Object (QC): 6 PT Plan Treatment/Plan Treatment Plan: Continue Plan of Care Treatment Plan: Bed Mobility, Education, Functional Activity Lola, Functional Strength, Gait, Safety, Therapeutic Exercise, Transfers Treatment Duration: May 20, 2016 Minutes/Day (M-F): 60-90 Minutes/Day (Sat/Cuevas): PRN Time/GCodes Time In: 1525 Time Out: 1540 Total Billed Treatment Time: 15 Total Billed Treatment 1 visit EX 15 min ARON GAMBLE PT May 06, 2016 15:44
[2016-05-06] MEDS: glipiZIDE 5 MG (GLUCOTROL) TAB PO SCH (16:09)
[2016-05-06] MEDS: metFORMIN 500 MG (GLUCOPHAGE) TAB PO SCH (16:10)
[2016-05-06] MEDS ORDERED: inSUlin ASPART (NovoLOG) 1 UNIT/0.01 ML (CHARGE PER UNIT) SC SCH (16:15)
[2016-05-06] MEDS ORDERED: inSUlin ASPART (NovoLOG) 1 UNIT/0.01 ML (CHARGE PER UNIT) SC ONE (16:30)
[2016-05-06 18:08] VITALS: BP 128/66
[2016-05-06] MEDS: inSUlin DETERMIR 1 UNIT/0.01 ML (LEVEMIR) CHARGE PER UNIT SQ SCH (20:26)
[2016-05-06] MEDS: inSUlin ASPART (NovoLOG) 1 UNIT/0.01 ML (CHARGE PER UNIT) SC SCH (20:26)
[2016-05-06] MEDS: GABAPENTIN 100 MG (NEURONTIN) CAP PO SCH (20:26)
[2016-05-06] MEDS: VITAMIN D3 5,000 UNITS (CHOLECALCIFEROL ) CAPSULE PO SCH (20:27)
[2016-05-06] MEDS: AMITRIPTYLINE 50 MG (ELAVIL) TAB PO SCH (20:27)
[2016-05-06] MEDS: FLUTICASONE NASAL SPRAY (FLONASE) 16 GM BTL NS SCH (20:27)
[2016-05-06] MEDS ORDERED: NON-FORMULARY MEDICATION 1 EA EA SC SCH (21:00)
[2016-05-06] MEDS ORDERED: NON-FORMULARY MEDICATION 1 EA EA IH SCH (21:00)
[2016-05-07 06:00] VITALS: BP 145/73
[2016-05-07] MEDS: inSUlin ASPART (NovoLOG) 1 UNIT/0.01 ML (CHARGE PER UNIT) SC SCH ×4 (06:00→20:16)
[2016-05-07] MEDS: MULTIVIT W/MINERALS TAB (THERAGRAN M) PO SCH (06:23)
[2016-05-07] MEDS: glipiZIDE 5 MG (GLUCOTROL) TAB PO SCH ×2 (06:23→17:48)
[2016-05-07] MEDS: metFORMIN 500 MG (GLUCOPHAGE) TAB PO SCH ×2 (06:23→17:49)
[2016-05-07] MEDS: LEVOTHYROXINE 100 MCG (LEVOTHROID) TAB PO SCH (06:23)
--- NOTE | 2016-05-07 08:13 | Consultation ---
History of Present Illness History of Present Illness Patient Consulted On(paige/time) 05/07/16 08:09 Date of Admission History of Present Illness patient had a right endarterectomy at [facility]. Patient's blood pressure went high and kidneys stop working. Patient was in intensive care unit for 12 days. Patient has weakness and a little slow now. Patient states has a little droopiness the right side of the mouth probably due to a nerve and stroke area Surgeries 2 knees replaced appendectomy gallbladder and stent in the heart Family history has same problems as I have Allergies and Home Medications Allergies Coded Allergies: Penicillins (Verified Allergy, Unknown, 10/22/06) acetaminophen (Verified Allergy, Unknown, 10/22/06) codeine (Verified Allergy, Unknown, UPSET STOMACH, 10/23/06) morphine (Unverified Allergy, Unknown, 12/12/14) propoxyphene (Verified Allergy, Unknown, 10/22/06) topiramate (Verified Allergy, Unknown, 10/22/06) Home Medications Albuterol Sulfate 18 Gm Hfa.aer.ad 1-2 PUFF IH QID (Reported) Amitriptyline HCl 50 Mg Tablet 50 MG PO UD (Reported) Aspirin 81 Mg Tablet.dr #100 81 MG PO DAILY Prescribed by: NGHIA GUTIERREZ on 12/27/15 0741 Atorvastatin Calcium 10 Mg Tablet #30 10 MG PO DAILY Prescribed by: NGHIA GUTIERREZ on 12/27/15 0742 Budesonide/Formoterol Fumarate 10.2 Gm Hfa.aer.ad 2 PUFF IH BID (Reported) Cetirizine HCl 10 Mg Tablet 10 MG PO DAILY (Reported) Clopidogrel Bisulfate 75 Mg Tablet #90 1 TAB PO UD (Reported) Cyclobenzaprine HCl 10 Mg Tablet 10 MG PO UD (Reported) Enalapril Maleate 20 Mg Tablet 20 MG PO DAILY (Reported) Fluticasone Propionate 16 Gm Richardson.susp 2 SPRAYS NS HS (Reported) Gabapentin 100 Mg Capsule 200 MG PO TID (Reported) TAKES 2 (100MG) CAPSULES Glipizide 10 Mg Tablet 10 MG PO BID (Reported) Hydralazine HCl 25 Mg Tablet 25 MG PO BID (Reported) Levothyroxine Sodium 100 Mcg Tablet 100 MCG PO DAILY (Reported) Liraglutide 0.6 Mg/0.1 Ml Pen.injctr 1.2 MG SQ UD (Reported) Lorazepam 0.5 Mg Tablet 0.5 MG PO TID PRN PRN ANXIETY (Reported) Meclizine HCl 25 Mg Tablet 25 MG PO UD (Reported) Meclizine HCl 25 Mg Tablet #30 25 MG PO Q6H PRN PRN DIZZINESS Prescribed by: DAVIN ADHIKARI on 04/07/16322 Metformin HCl 1,000 Mg Tablet #180 1 TAB PO BID (Reported) Metoprolol Succinate 25 Mg Tab.er.24h #90 1 TAB PO UD (Reported) Ondansetron 4 Mg Tab.rapdis #10 4 MG SL Q4H PRN PRN NAUSEA/VOMITING Prescribed by: DAVIN ADHIKARI on 04/07/16322 Promethazine HCl 25 Mg Tablet #10 25 MG PO Q6H PRN PRN NAUSEA/VOMITING Prescribed by: DAVIN ADHIKARI on 04/07/16322 Past Bphgfkb-Acjehg-Ouoels Hx Patient Social History Alcohol Use: Denies Use Recreational Drug Use: No Smoking Status: Never a Smoker Recent Foreign Travel: No Contact w/Someone Who Travel: No Recent Infectious Disease Expo: No Recent Hopitalizations: No Physical Abuse Screen: No Sexual Abuse: No Immunizations Up To Date Tetanus Booster (TDap): Unknown Date of Pneumonia Vaccine: Jan 06, 2008 Date of Influenza Vaccine: Dec 27, 2015 Seasonal Allergies Seasonal Allergies: No Surgeries HX Surgeries: Yes (FOOT) Surgeries: Appendectomy, Coronary Stent, Gallbladder, Orthopedic, Thyroidectomy Respiratory Hx Respiratory Disorders: Yes (CPAP) Respiratory Disorders: Asthma, Sleep Apnea, COPD Cardiovascular Hx Cardiac Disorders: Yes Cardiac Disorders: Cardiomyopathy, Coronary Artery Disease, High Cholesterol, Hypertension Neurological Hx Neurological Disorders: No 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 System Hx 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 Disorders: No Sexually Transmitted Disease: No MANAGER PRIVACY History: Menopausal Genitourinary Hx Genitourinary Disorders: No Genitourinary Disorders: UTI-Chronic Gastrointestinal Hx Gastrointestinal Disorders: No Musculoskeletal Hx Musculoskeletal Disorders: Yes (ARTHRITIS, LUPUS) Musculoskeletal Disorders: Arthritis Endocrine Hx Endocrine Disorders: Yes Endocrine Disorders: Diabetes, Insulin dep, Hypothyroidsim HEENT HX ENT Disorders: Yes (19 ROOT CANALS, TEETH MISSING) Cancer Hx Cancer: No Psychosocial Hx Psychiatric Problems: Yes Behavioral Health Disorders: Anxiety, Depression Integumentary HX Skin/Integumentary Disorder: No Blood Transfusions Hx Blood Disorders: No Adverse Reaction to a Blood Tr: No Family Medical History Family Medial History: Alzheimer's disease G8 SISTER Diabetes mellitus 19 FATHER Hypertension 19 FATHER 19 MOTHER Myocardial infarction 19 FATHER 19 MOTHER Neoplasm G8 SISTER Review of Systems-General Constitutional: weakness EENTM: no symptoms reported Respiratory: short of breath Gastrointestinal: no symptoms reported Genitourinary: no symptoms reported Physical Exam-General Problems Physical Exam Vital Signs Vital Sign - Last 12Hours 05/06/16 05/06/16 12:30 12:35 Temp 98.6 Pulse 76 Resp 20 B/P 146/61 Pulse Ox 97 O2 Delivery Room Air Capillary Refill : General Appearance: WD/WN no apparent distress Eyes: Bilateral Eye Normal Inspection HEENT: normal ENT inspection other (breakout inside lips) Neck: full range of motion other (right carotid endarterectomy) Respiratory: chest non-tender lungs clear no respiratory distress no accessory muscle use Cardiovascular: regular rate, rhythm no murmur Gastrointestinal: non tender soft Assessment/Plan Assessment/Plan Admission Diagnosis/Plan weakness. Carotid stenosis. Diabetes. History of renal failure. COPD. Asthma. Coronary artery disease History of infection Clinical Quality Measures DVT/VTE Risk/Contraindication: Risk Factor Score Per Nursin RFS Level Per Nursing on Admit: 4+=Very High VIELKA LUIS DO May 07, 2016 08:13
[2016-05-07 08:50] LABS: BILIRUBIN,URINE NEGATIVE (NEGATIVE); KETONES,URINE NEGATIVE (NEGATIVE); LEUKOCYTE ESTERASE ,URINE 2+ (NEGATIVE); NITRITE,URINE NEGATIVE (NEGATIVE); PH,URINE 7 (5-9); PROTEIN,URINE NEGATIVE (NEGATIVE); UROBILINOGEN,URINE NORMAL (NORMAL)
[2016-05-07] MEDS ORDERED: NON-FORMULARY MEDICATION 1 EA EA PO SCH (09:00)
[2016-05-07 09:08] LABS: YEAST,URINE FEW /HPF
[2016-05-07] MEDS: ACYCLOVIR 400 MG TABLET (ZOVIRAX) PO SCH ×3 (09:52→20:15)
[2016-05-07] MEDS: ASPIRIN E.C. 81 MG (ECOTRIN) TAB PO SCH (09:52)
[2016-05-07] MEDS: CLOPIDOGREL 75 MG (PLAVIX) TABLET PO SCH (09:52)
[2016-05-07] MEDS: amLODIPine 5 MG (NORVASC) TAB PO SCH (09:53)
[2016-05-07] MEDS: meTOproloL SUCCINATE 50 MG (TOPROL XL) TAB PO SCH (09:53)
[2016-05-07] MEDS: hydrALAZINE (APRESOLINE) 25 MG TAB PO SCH (09:53)
[2016-05-07] MEDS: ATORVASTATIN 10 MG (LIPITOR) TABLET PO SCH (09:53)
[2016-05-07] MEDS: LORATADINE (CLARITIN) 10 MG TAB PO SCH (09:53)
[2016-05-07] MEDS: GABAPENTIN 100 MG (NEURONTIN) CAP PO SCH ×2 (09:53→20:14)
[2016-05-07] MEDS: VITAMIN D3 5,000 UNITS (CHOLECALCIFEROL ) CAPSULE PO SCH ×2 (09:53→20:15)
[2016-05-07] MEDS: LORazepam 1 MG (ATIVAN) TAB PO SCH (09:53)
[2016-05-07] MEDS: MONTELUKAST 10 MG (SINGULAIR) TAB PO SCH (10:00)
--- NOTE | 2016-05-07 10:01 | HISTORY AND PHYSICAL ---
DATE OF ADMISSION: 05/06/2016 CHIEF COMPLAINT: Difficulty with walking. HISTORY OF PRESENT ILLNESS: The patient is a 60-year-old female who lives alone in [place] who had been modified independent with a cane or walker prior to having a right carotid endarterectomy for carotid artery disease with Dr. Victoria at [facility] in [place], [place] on 04/24/2016. The patient had postoperative complications with hypertension which was managed with a Cardene drip. She had worsening renal function and nephrology was consulted and started on IV fluids. The patient spiked a fever, and had leukocytosis, and there was concern for pneumonia. She was started on antibiotics. Her chest x-ray on 04/26 and 04/27 showed increasing pulmonary edema and she was placed on BiPAP and started on Lasix. She was followed by hospitalist and cardiology, critical care and Dr. Victoria. Therapies were begun and the patient was felt to be appropriate for inpatient rehabilitation and she is referred to [facility] rehab unit so as to be closer to home. Her PCP is Dr. Colindres. PAST MEDICAL HISTORY: 1. Type 2 diabetes mellitus. 2. Hypertension. 3. COPD. 4. GERD. 5. Asthma. 6. Chronic UTIs. 7. Menstrual disorder. 8. Carpal tunnel syndrome. 9. Osteoporosis. 10. Systemic lupus erythematosus. PAST SURGICAL HISTORY: 1. Left breast biopsy. 2. Thyroidectomy. 3. Carpal tunnel release bilateral. ALLERGIES: 1. PENICILLIN. 2. ACETAMINOPHEN. 3. CODEINE. 4. MORPHINE. 5. PROPOXYPHENE. 6. TOPIRAMATE. FAMILY HISTORY: Noncontributory. SOCIAL HISTORY: Essentially as per above. REVIEW OF SYSTEMS: Ten-point review of systems significant for some mild weakness mild dyspnea on exertion. Some mild incisional pain. Her admission glucometer reading was 402 and she was provided with a sliding scale A-regimen to complement her regular dose of insulin and oral medication for diabetes mellitus. MEDICATIONS: 1. Norvasc 10 mg p.o. daily. 2. Toprol XL 50 mg p.o. daily. 3. Apresoline 25 mg p.o. daily. 4. Lipitor 10 mg p.o. daily. 5. ASA 81 mg p.o. daily. 6. Singulair 10 mg p.o. daily. 7. Plavix 75 mg p.o. daily. 8. Ativan 1 mg p.o. daily. 9. Claritin 10 p.o. daily. 10. Multiple vitamins with minerals 1 tablet p.o. daily. 11. Synthroid 100 mcg p.o. daily. 12. Elavil 50 mg p.o. at bedtime. 13. Vitamin D3 5000 units p.o. b.i.d. 14. Flonase one spray each nostril at bedtime. 15. Gabapentin 200 mg p.o. t.i.d. 16. Levemir insulin 18 units subcutaneous at bedtime. 17. Sliding scale insulin regimen A, initiated upon admission to this facility. 18. Advair 2 puffs b.i.d. 19. Metformin 1000 mg p.o. b.i.d. 20. Glipizide 5 mg p.o. b.i.d. 21. Gyne-Lotrimin cream p.r.n. for rash. 22. Proventil treatments q.4 hours p.r.n. shortness of breath. 23. Tylenol 1000 mg p.o. q.6 hours p.r.n. mild pain. 24. Meclizine 25 mg p.o. q.6 hours for dizziness. 25. Nitroglycerin 0.4 mg q. 5 minutes p.r.n. chest pain or follow-up but glucometer readings 384 and 366; we will reassess in a.m. and adjust medications as necessary. PHYSICAL EXAMINATION: Physical examination is significant for a pleasant female, appearing her stated age, alert and oriented in no acute distress. VITAL SIGNS: She is afebrile. Pulse is 72, respirations 16, blood pressure 128/66. O2 sat 96% on room air. BMI 40.5 kg/sq m. HEENT: Vision, speech, hearing, grossly intact. No oral lesions noted. NECK: Supple without mass. Right carotid endarterectomy incision site is intact and healing well. No drainage noted. HEART: Regular rhythm. LUNGS: Clear. ABDOMEN: Soft, nontender. Bowel sounds present. EXTREMITIES: Trace edema both ankles. No calf tenderness. She is obese. MUSCULOSKELETAL: She has functional strength and active range of motion in both upper extremities, both lower extremities functional active range of motion strength is 4/5. NEUROLOGIC: Cognition grossly intact. Sensation is impaired in both ankles to light touch, coordination is intact. She is reported to be continent of bowel and bladder. She currently is min assist to standby assist for transfers. Mod assist for ambulating 150 feet with a wheeled walker. She is modified independent for eating and grooming at the wheelchair level, min assist for upper body dressing. Mod assist for lower body dressing and toileting. IMPRESSION: 1. General debilitation status post right carotid endarterectomy, Dr. Victoria, [facility] in [place], [place] 04/24/2016 for a carotid artery stenosis. 2. Obesity. 3. Brittle diabetes. Poorly controlled at this time. 4. COPD on inhalers. 5. GERD, on medications. 6. Hypertension, controlled with medication. 7. Asthma on inhaler. 8. History of chronic UTIs 9. Postoperative respiratory insufficiency placed on fluids. 10. Postop fluid overload placed on diuretic. 11. Postop hypertension placed on Cardene drip now on p.o. medications. 12. Diabetic peripheral neuropathy. 13. History of bilateral carpal tunnel release. 14. Postop dysarthria. PLAN: The patient will have a comprehensive program of inpatient rehabilitation with goal of maximizing level of functional independence prior to discharge home with home health care and family. The patient will have PT/OT 90 minutes per day, each discipline, for gait strengthening, conditioning, balance, energy conservation, any patient/family/caregiver training necessary, any adaptive equipment and training necessary. Therapy with cardiac and fall precautions. Speech therapy has assessed the patient on date of admission to rehab and found her to be functional other than for some slightly imprecise articulation due to slight decreased right labial retraction and facial range of motion. The mild dysarthria will be treated 3 to 5 times a week by speech therapy for 30 to 45 minutes sessions. Rehabilitation nursing assist with bowel, bladder, skin, wound care, medication administration, pain management. shipping services sales representative to assist with discharge planning, community reentry. Accu-Cheks q.i.d. before meals and at bedtime and adjust medications as needed. Consult Dr. Matthew in lieu of Dr. Colindres, PCP for medical management. Routine admission labs in a.m. Follow-up Dr. Victoria upon discharge from rehab. ESTIMATED LENGTH OF STAY: Two weeks. PROGNOSIS: Rehab prognosis appears good for goal of discharging home with family and home health care modified independent to supervision for ADLs and mobility skills. DIET: Carb consistent. CODE STATUS: Full code. POST ADMISSION PHYSICIAN ASSESSMENT: The preadmission screen agrees with the post admission assessment that the patient is a good candidate for inpatient rehabilitation. She appears to be well motivated to participate in 3 hours of therapy a day. She should be able tolerate 3 hours of therapy a day from a medical and surgical standpoint. She should benefit 3 hours of therapy a day. The case was discussed with Dr. Mcdonald over the phone by Dr. Victoria service today. The patient has a reasonable discharge plan, reasonable discharge rehabilitation goals and a supportive family. She has various comorbidities that need to be closely monitored, medications and treatments adjusted on daily basis as needed. These include her poorly controlled diabetes mellitus at this time, her hypertension and her COPD. Barriers to discharge for this patient who had been modified independent prior to this and living alone is for her to be modified independent to supervision for ADLs and mobility skills prior to discharge home with improved speech and intelligibility prior to discharge home so as to lessen the burden of the caregivers. Risks for this patient include: 1. Wound dehiscence. 2. Wound infection. 3. Skin breakdown. 4. Fall. 5. Fracture. 6. DVT. 7. Pulmonary embolism. 8. Urinary retention. 9. UTI. 10. Respiratory infection. 11. Aspiration. Will utilize SCDs for DVT prophylaxis.The patient is on plavix as well Job ID: [id number] Dictated Date: 05/06/2016 20:40:44 Chief Wellness Officer Date: 05/07/2016 09:34:00/edelmira MANCUSO
--- NOTE | 2016-05-07 10:09 | Occupational Ther Daily Note ---
OT Current Status-Daily Note Subjective No pain reported. Appearance Pt. is in bed. Agrees to work with OT. Mental Status/Objective Patient Orientation: Person, Place Functional [place] Measure 0=Not Assessed/NA 4=Minimal Assistance 1=Total Assistance 5=Supervision or Setup 2=Maximal Assistance 6=Modified [place] 3=Moderate Assistance 7=Complete [place] ADL-Treatment Functional [place] Measure 0=Not Assessed/NA 4=Minimal Assistance 1=Total Assistance 5=Supervision or Setup 2=Maximal Assistance 6=Modified [place] 3=Moderate Assistance 7=Complete IndependenceIRFPAI Quality Coding Scale 6 Independent with activity with or without an assistive device 5 Patient requires set up or clean up by helper. Patient completes activity by themselves 4 Supervision or touching assist (CGA). [place] provide cues , steadying assist 3 The helper provides less than half the effort to complete the activity 2 The helper provides more than half the effort to complete the activity 1 Dependent. The helper does all the effort to complete an activity 7 Patient refused to complete or attempt activity 9 The patient did not perform the activity before the current illness or injury 88 Not attempted due to Medical conditions or safety concerns Grooming (FIM): 5 (Pt. is able to brush hair and teeth with SBA at sink.) Bathing (FIM): 5 (Pt. showered last night. Requests to only spongebathe this morning. Requires set up only.) Upper Body (FIM): 5 Lower Body Dressing (FIM): 5 (Pt. is able to doff and don socks, shoes, underwear, and pants.) Toileting (FIM): 5 (Pt. is able to toilet self with SBA.) Transfers (B, C, W/C) (FIM): 5 (SBA for all transfers, including into/out of bed.) Toilet/Commode Transfer (FIM): 5 Other Treatment After ADLs, pt. agrees to ambulate to therapy gym. Completed 15 minutes with light resistance on armbike. Then tolerated fine motor coordination tasks with nut/bolt activity. Also completed arm arc activity with bilateral UE. No shortness of breath noted. 02 sats monitored and they stayed 94-95%. Hr at 73- 75. All needs met back in room. Pt.is able to ambulate with walker and no difficulty. Education OT Patient Education: Exercise program, Modified ADL techniques, Progress toward Goal/Update tx plan, Purpose of tx/functional activities, Reviewed precautions, Rehab process, Use of adapted equipment Teaching Recipient: Patient Teaching Methods: Demonstration, Discussion Response to Teaching: Verbalize Understanding, Return Demonstration OT Short Term Goals Short Term Goals Transfers (B,C,W/C) (FIM): 5 1=Demonstrate adherence to instructed precautions during ADL tasks. 2=Patient will verbalize/demonstrate understanding of assistive devices/ modifications for ADL. 3=Patient will improve strength/tolerance for activity to enable patient to perform ADL's. OT Snf Goals Snf Goals Time Frame: May 20, 2016 Eating (FIM): 6 Eating (QC): 6 Groomin Oral Hygiene (QC): 6 Bathing(FIM): 6 Shower/Bathe Self (QC): 6 Upper Body Dressing(FIM): 6 Upper Body Dressing (QC): 6 Lower Body Dressing(FIM): 6 Lower Body Dressing (QC): 6 On/Off Footwear (QC): 6 Toileting(FIM): 6 Toileting Hygiene (QC): 6 Toilet/Commode Transfer(FIM): 6 Toilet/Commode Transfer (QC): 6 Shower Transfer(FIM): 6 Comprehension(FIM): 6 Expression (FIM): 5 Social Interaction(FIM): 6 Problem Solving(FIM): 6 Memory(FIM): 6 1=Demonstrate adherence to instructed precautions during ADL tasks. 2=Patient will verbalize/demonstrate understanding of assistive devices/ modifications for ADL. 3=Patient will improve strength/tolerance for activity to enable patient to perform ADL's. OT Education/Plan Problem List/Assessment Assessment: Decreased Activ Tolerance, Decreased UE Strength, Impaired I ADL's , Impaired Self-Care Skills Pt would benefit from skilled OT to increase her independence in basic self care to allow her to return to her home to live safely with nearby family support. Discharge Recommendations Plan/Recommendations: Continue POC Therapy D/C Recommendations: Home w/ Family Support, Occupational Therapy Home Care Treatment Plan/Plan of Care Treatment,Training & Education: Yes Patient would benefit from OT for education, treatment and training to promote independence in ADL's, mobility, safety and/or upper extremity function for ADL' s. Plan of Care: ADL Retraining, Functional Mobility, Group Exercise/Act as Ind ( education, exercise, activity tolerance, functional activities), UE Funct Exercise/Act, UE Neuromus Re-Ed/Coord Treatment Duration: May 20, 2016 Visits Per Week: 10-11 Minutes/Day (M-F): 75-90 Minutes/Day (Sat/Cuevas): PRN Agreement: Yes Rehab Potential: Good Time/GCodes Start Time: 08:15 Stop Time: 09:15 Total Time Billed (hr/min): 60 Billed Treatment Time 1, ADL x 30minutes, EX x 30minutes HENRIETTA ROSENBERG OT May 07, 2016 10:09
--- NOTE | 2016-05-07 10:25 | Speech Therapy Daily Note ---
Speech Daily Progress Note Subjective The patient was sitting upright in recliner upon entrance. The patient greeted the clinician appropriately and agreed to participate in the speech therapy session on this date. Objective Oral Motor Exercises/Labial and Lingual Range of Motion and Strengthening: Oral motor exercises involving the tongue and lips were introduced, discussed, and demonstrated on this date. The patient completed 10 repetitions of each exercise following one direct modeling occurrence by the clinician. The patient completed exercises with high accuracy. Assessment Assessment Current Status: Good Progress Treatment Plan Continue Plan of Care Communication Comprehension: 4 Expression: 4 Social Cognition Social Interaction: 5 Problem Solvin Memory: 5 Speech Short Term Goals Short Term Goals Short Term Goals 1. The patient will demonstrate oral motor exercises with 90% accuracy, independently. Time Frame-STG: One Week Speech Correction Goals Chip Bin Conveyor Tender Goals 1. The patient will demonstrate increased labial and facial strength for improved intelligibility with verbal expression. Time Frame: Four Weeks Comprehension: 6 Expression: 5 Social Interaction: 6 Problem Solvin Memory: 6 Speech-Plan Treatment Plan Speech Therapy Treatment Plan: Continue Plan of Care Continue skilled speech services to target increased labial and lingual range of motion and strength. Treatment Duration: Jun 03, 2016 # of days/week Four to five. Visits Per Week: Four to Five. Minutes/Day (M-F): 30 Rehab Potential: Good Safety Risks/Education Teaching Recipient: Patient Teaching Methods: Demonstration, Handout, Discussion Response to Teaching: Return Demonstration Education Topics Provided: Oral Motor Exercises Time Speech Therapy Time In: 09:45 Speech Therapy Time Out: 10:15 Total Billed Time: 30 Billed Treatment Time NoelleJARETT ELIZABETH ST May 07, 2016 10:25
--- NOTE | 2016-05-07 11:25 | Physical Therapy Daily Note ---
PT Daily Note-Current Subjective Pt sitting in recliner with feet raised upon arrival. Pt reports feeling okay and agrees to PT but might need some rest breaks. Pt reports dizziness during walking so PT will monitor vitals. Pain Numeric Pain Scale: 0-No Pain Location: No Pain Reported Mental Status Patient Orientation: Person, Place, Time, Situation Transfers Functional [place] Measure 0=Not Assessed/NA 4=Minimal Assistance 1=Total Assistance 5=Supervision or Setup 2=Maximal Assistance 6=Modified [place] 3=Moderate Assistance 7=Complete IndependenceIRFPAI Quality Coding Scale 6 Independent with activity with or without an assistive device 5 Patient requires set up or clean up by helper. Patient completes activity by themselves 4 Supervision or touching assist (CGA). [place] provide cues , steadying assist 3 The helper provides less than half the effort to complete the activity 2 The helper provides more than half the effort to complete the activity 1 Dependent. The helper does all the effort to complete an activity 7 Patient refused to complete or attempt activity 9 The patient did not perform the activity before the current illness or injury 88 Not attempted due to Medical conditions or safety concerns Transfers (B, C, W/C) (FIM): 5 Scootin Sit to/from Stand: 5 Sit to Lying (QC): 5 Sit to Stand (QC): 5 Weight Bearing Weight Bearing Restriction: Full Weight Bearing Location Restriction: LE Bilateral Gait Training Does the Patient Walk?: Yes Gait (FIM): 5 Distance (FIM): 3=150 ft Distance: 150' Walk 10 feet (QC): 5 Walk 50 ft with 2 Turns(QC): 5 Walk 150 ft (QC): 5 Gait Level of Assist: 5 Gait Persons Needed: 1 Gait Assistive Device: FWW Pt ambulates with normalized gait pattern although reports dizziness shortly upon starting ambulation in [facility] [place]. PT will monitor vitals during tx to watch. Wheelchair Training Does the Pt Use a Wheelchair?: No Exercises Supine Ex: Ankle pumps, Glut sets, Heel Slides, Straight leg raise, Hip abd/add Supine Reps: 20 Treatments Pt transferred from recliner to standing using FWW at [facility]. Pt then ambulated in [employer] using FWW at [facility] before entering the Therapy Gym. Pt reports dizziness while walking so nursing is informed and vitals will be monitored. PT took short rest in chair and dizziness subsides. PT then transfers to standing using FWW at S[facility] and ambulates to mat before transferring standing to EOB to supine at SBA. Pt performs supine EX on mat with a couple short rest breaks due to fatigue. Pt then transfers from supine to EOB and reports dizziness again. PT takes vitals (BP-102/65, P-68 & O2 was 95%). Pt then transfers EOB to standing using FWW at SBA. Pt then ambulates back to room to rest. Pt transfers standing to sitting in recliner at A. Pt is left sitting in recliner with feet up and all needs met. Nursing to arrive shortly for Blood Sugar check. Assessment Current Status: Fair Progress Pt si able to complete transfers, ambulation and EX but fatigues easy and needs frequent rest breaks. Pt is also reporting dizziness with positional changes, nursing notified. PT Short Term Goals Short Term Goals Time Frame: Apr 15, 2016 Transfers (B,C,W/C) (FIM): 5 Gait (FIM): 5 Distance (FIM): 3=150 ft Gait Distance Comment: 200' Gait Level of Assist: 5 Gait Assistive Device: FWW PT Fpc Goals Final Tester Goals PT Fpc Goals Time Frame: May 20, 2016 Transfers (B,C,W/C) (FIM): 6 Sit to Lying (QC): 6 Lying-Sitting on Side/Bed(QC): 6 Sit to Stand (QC): 6 Rollin Roll Left to Right (QC): 6 Chair/Sbr-hg-[place] Xfer(QC): 6 Car Transfer (QC): 6 Does the Patient Walk: Yes Gait (FIM): 6 Gait distance (FIM): 3=150 ft Distance: 250' Walk 10 feet (QC): 6 Walk 10ft-Uneven Surface(QC): 6 Walk 50ft with 2 Turns (QC): 6 Walk 150 ft (QC): 6 Gait Level of Assist: 6 Gait Assistive Device: None, FWW Stairs (FIM): 5 (household exception) # of Steps: 4 1 Step (curb) (QC): 6 4 Steps (QC): 5 12 Steps (QC): 9 Stairs Level Of Assist: 5 Picking up an Object (QC): 6 PT Plan Problem List Problem List: Activity Tolerance, Functional Strength, Safety, Balance, Gait Treatment/Plan Treatment Plan: Continue Plan of Care Treatment Plan: Bed Mobility, Education, Functional Activity Lola, Functional Strength, Gait, Safety, Therapeutic Exercise, Transfers Treatment Duration: May 20, 2016 Minutes/Day (M-F): 60-90 Minutes/Day (Sat/Cuevas): PRN Safety Risks/Education Patient Education: Gait Training, Transfer Techniques, Correct Positioning, Safety Issues Teaching Recipient: Patient Teaching Methods: Discussion Response to Teaching: Verbalize Understanding Time/GCodes Time In: 1015 Time Out: 1100 Total Billed Treatment Time: 45 Total Billed Treatment visit, GT (10m), EX (20m) & FA (15m) FRANCIS JIN BOAT PULLER May 07, 2016 11:25
--- NOTE | 2016-05-07 14:41 | Therapy Group Daily Note ---
Therapy Daily Group Note Patient Education Topic Other List Below (ARU description/expectation) Exercises LE Seated Exercise, UE Exercise Other/Notes Pt actively participated in OT group. Group consisted of introductions (name, place living, favorite food), socializations, ARU expectations/educations, group interaction presenting safety hazards in home, UE/LE seated exercises and memory recall from history and pt's past. Pt contributed to each discussion appropriately. Pt had difficulties describing memories with details relevant to the topic. Pt able to complete UE/LE seated exercises without difficulty to increase strength and activity tolerance. After group, pt lying in bed with call light/phone in reach. Start Time: 13:00 Stop Time: 14:10 Total Billed Treatment Time: 70 Total Billed Treatment 1-GRP IVETH COSTELLO May 07, 2016 14:41
[2016-05-07 17:47] VITALS: BP 128/76
[2016-05-07] MEDS: AMITRIPTYLINE 50 MG (ELAVIL) TAB PO SCH (20:15)
[2016-05-07] MEDS: inSUlin DETERMIR 1 UNIT/0.01 ML (LEVEMIR) CHARGE PER UNIT SQ SCH (20:17)
[2016-05-07] MEDS: FLUTICASONE NASAL SPRAY (FLONASE) 16 GM BTL NS SCH (20:22)
[2016-05-07] MEDS ORDERED: MELATONIN 3 MG TABLET PO ONE (20:24)
[2016-05-07] MEDS: MELATONIN 3 MG TABLET PO SCH (20:26)
--- NOTE | 2016-05-07 20:29 | PM & R (SOAP) Progress Note ---
Subjective Subjective/Events-last exam Patient was seen in her room this AM Adjusting well to unit Patient requests resumption of her home melatonin for insomnia current meds reviewed DM better contolled this AM Patient c/o oral pain and throat pain Dr Matthew has begun antiviral Review of Systems General: Other (insomnia) HEENT: Sore Throat Other (oral pain) Neurological: : Other (dysarthria mild) Objective Exam Last Set of Vital Signs Vital Signs Date Time Temp Pulse Resp B/P Pulse Ox O2 Delivery O2 Flow Rate FiO2 05/07/16 17:47 96.0 70 18 128/76 96 Room Air Capillary Refill : I&O Bad tableGeneral: Alert, Oriented X3, Cooperative, No Acute Distress HEENT: Atraumatic, PERRLA, EOMI, Other (mild rt labial droop Hyperemic mucosa) Neck: Supple, No JVD Lungs: Clear to Auscultation Heart: Regular Rate Abdomen: Normal Bowel Sounds, Soft, No Tenderness Extremities: No Edema Neuro: Other (generalized weakness) Results Lab Laboratory Tests 05/06/16 15:46: Glucometer 402*H 05/06/16 18:27: Glucometer 384H 05/06/16 20:10: Glucometer 358H 05/07/16 05:35: Glucometer 85 05/07/16 08:35: Urine Bacteria TRACE, Urine Bilirubin NEGATIVE, Urine Casts NONE, Urine Clarity SLIGHTLY CLOUDY, Urine Color YELLOW, Urine Crystals NONE, Urine Culture Indicated YES, Urine Glucose (UA) NEGATIVE, Urine Ketones NEGATIVE, Urine Leukocyte Esterase 2+H, Urine Mucus NEGATIVE, Urine Nitrite NEGATIVE, Urine Other 5-10 TRANS EPIS, Urine Protein NEGATIVE, Urine RBC NONE, Urine RBC (Auto) NEGATIVE, Urine Specific [place] 1.005L, Urine Squamous Epithelial Cells 10-25H , Urine Urobilinogen NORMAL, Urine WBC 10-25H, Urine Yeast FEWH, Urine pH 7 05/07/16 11:04: Glucometer 110 05/07/16 16:03: Glucometer 199H 05/07/16 20:15: Glucometer 251H Assessment/Plan Assessment S/P RT CEA at OSH for Carotid artery d. DM better controlled Insomnia-melatonin resumed Mild dysarthria-ST addressing Herpes Simplex-antiviral ordered Discussed case with DR Lemos today who IS PCP-He made courtesy visit today Appreciate Dr Carvajal consult and orders OA both knees s/p BTKRS remote Plan Continue PT/OT/ST Team Conference held earlier today-See report for full functional update and POC and ELOS See orders. WHIT ARRINGTON MD May 07, 2016 20:29
[2016-05-07] MEDS ORDERED: MELATONIN 3 MG TABLET PO SCH (21:00)
[2016-05-07] MEDS: RT-ADVAIR HFA 45/21 MCG PER PUFF IH SCH (23:43)
[2016-05-08] MEDS: ACETAMINOPHEN 500 MG TAB (TYLENOL) PO PRN ×3 (05:22→20:18)
[2016-05-08 05:29] LABS: BASOPHILS % (AUTO) 0 % (0-10); EOSINOPHILS # (AUTO) 0.5 10^3/uL (0.0-0.3); EOSINOPHILS % (AUTO) 4 % (0-10); LYMPHOCYTES # (AUTO) 3.3 X 10^3 (1.0-4.0); LYMPHOCYTES % (AUTO) 23 % (12-44); MEAN CORPUSCULAR HEMOGLOBIN 27 PG (25-34); MEAN CORPUSCULAR HGB CONC 30 G/DL (32-36); MEAN CORPUSCULAR VOLUME 89 FL (80-99); MONOCYTES # (AUTO) 0.7 X 10^3 (0.0-1.0); MONOCYTES % (AUTO) 5 % (0-12); NEUTROPHILS # (AUTO) 9.9 X 10^3 (1.8-7.8); NEUTROPHILS % (AUTO) 69 % (42-75); PLATELET COUNT 343 10^3/uL (130-400); RED BLOOD COUNT 3.47 10^6/uL (4.35-5.85); RED CELL DISTRIBUTION WIDTH 14.9 % (10.0-14.5); WHITE BLOOD COUNT 14.4 10^3/uL (4.3-11.0)
[2016-05-08 05:50] LABS: ALBUMIN 3.7 G/DL (3.2-4.5); BILIRUBIN,TOTAL 0.5 MG/DL (0.1-1.0); CALCIUM 8.9 MG/DL (8.5-10.1); CREATININE SERUM 1.18 MG/DL (0.60-1.30); TOTAL PROTEIN 6.1 G/DL (6.4-8.2)
[2016-05-08] MEDS: inSUlin ASPART (NovoLOG) 1 UNIT/0.01 ML (CHARGE PER UNIT) SC SCH ×4 (05:58→20:15)
[2016-05-08 06:08] LABS: BAND NEUTROPHILS 0 %; BASOPHILS % (MANUAL) 0 %; EOSINOPHILS % (MANUAL) 3 %; HYPOCHROMASIA SLIGHT; LYMPHOCYTES % (MANUAL) 26 %; NEUTROPHILS % (MANUAL) 67 %; POIKILOCYTOSIS SLIGHT; POLYCHROMASIA SLIGHT
[2016-05-08] MEDS: metFORMIN 500 MG (GLUCOPHAGE) TAB PO SCH (06:33)
[2016-05-08] MEDS: MULTIVIT W/MINERALS TAB (THERAGRAN M) PO SCH (06:33)
[2016-05-08] MEDS: LEVOTHYROXINE 100 MCG (LEVOTHROID) TAB PO SCH (06:33)
[2016-05-08] MEDS: glipiZIDE 5 MG (GLUCOTROL) TAB PO SCH ×2 (06:33→17:29)
[2016-05-08 06:36] VITALS: BP 113/71
--- NOTE | 2016-05-08 07:58 | Progress Note (SOAP) ---
Subjective Subjective/Events-last exam patient has weakness. Patient has muscle pain on left side of ribs. GFR below 46. To stop metformin. Carotid stenosis Objective Exam Vital Signs Date Time Temp Pulse Resp B/P Pulse Ox O2 Delivery O2 Flow Rate FiO2 05/08/16 06:36 96.9 74 20 113/71 94 Room Air 05/07/16 17:47 96.0 70 18 128/76 96 Room Air I & O 05/08/16 07:00 Intake Total 875 ml Balance 875 ml Capillary Refill : General Appearance: No Apparent Distress WD/WN HEENT: Normal ENT Inspection Respiratory: Chest Non Tender Lungs Clear No Accessory Muscle Use No Respiratory Distress Cardiovascular: Regular Rate, Rhythm No Murmur Results Lab Laboratory Tests 05/08/16 05:06 Laboratory Tests 05/07/16 08:35: Urine Bacteria TRACE, Urine Bilirubin NEGATIVE, Urine Casts NONE, Urine Clarity SLIGHTLY CLOUDY, Urine Color YELLOW, Urine Crystals NONE, Urine Culture Indicated YES, Urine Glucose (UA) NEGATIVE, Urine Ketones NEGATIVE, Urine Leukocyte Esterase 2+H, Urine Mucus NEGATIVE, Urine Nitrite NEGATIVE, Urine Other 5-10 TRANS EPIS, Urine Protein NEGATIVE, Urine RBC NONE, Urine RBC (Auto) NEGATIVE, Urine Specific [place] 1.005L, Urine Squamous Epithelial Cells 10-25H , Urine Urobilinogen NORMAL, Urine WBC 10-25H, Urine Yeast FEWH, Urine pH 7 05/07/16 11:04: Glucometer 110 05/07/16 16:03: Glucometer 199H 05/07/16 20:15: Glucometer 251H 05/08/16 05:06: Alanine Aminotransferase (ALT/SGPT) 60H, Albumin 3.7, Alkaline Phosphatase 101, Anion Gap 14, Aspartate Amino Transf (AST/SGOT) 45H, B-Type Natriuretic Peptide 147.1H, BUN/Creatinine Ratio 26, Band Neutrophils 0, Basophils # (Auto) 0.0, Basophils % (Manual) 0, Basophils (%) (Auto) 0, Blood Urea Nitrogen 31H, Calcium Level 8.9, Carbon Dioxide Level 26, Chloride Level 101, Creatinine 1.18 , Eosinophils # (Auto) 0.5H, Eosinophils % (Manual) 3, Eosinophils (%) (Auto) 4 , Estimat Glomerular Filtration Rate 46, Glucose Level 85, Hematocrit 31L, Hemoglobin 9.3L, Hypochromasia SLIGHT, Lymphocytes # (Auto) 3.3, Lymphocytes % ( Manual) 26, Lymphocytes (%) (Auto) 23, Mean Corpuscular Hemoglobin 27, Mean Corpuscular Hemoglobin Concent 30L, Mean Corpuscular Volume 89, Mean Platelet Volume 10.0, Monocytes # (Auto) 0.7, Monocytes % (Manual) 4, Monocytes (%) (Auto ) 5, Neutrophils # (Auto) 9.9H, Neutrophils % (Manual) 67, Neutrophils (%) (Auto ) 69, Platelet Count 343, Poikilocytosis SLIGHT, Polychromasia SLIGHT, Potassium Level 4.0, Red Blood Count 3.47L, Red Cell Distribution Width 14.9H, Sodium Level 141, Total Bilirubin 0.5, Total Protein 6.1L, White Blood Count 14.4H 05/08/16 06:09: Glucometer 86 Assessment/Plan Assessment/Plan Assess & Plan/Chief Complaint weakness. Carotid stenosis. Diabetes. History of renal failure. COPD. Asthma. Coronary artery disease History of infection. . 05/08/16. Weakness. Carotid stenosis. Diabetes. Renal insufficiency. History of infection. Asthma Diagnosis/Problems: Clinical Quality Measures DVT/VTE Risk/Contraindication: Risk Factor Score Per Nursin RFS Level Per Nursing on Admit: 4+=Very High VIELKA LUIS DO May 08, 2016 07:58
[2016-05-08] MEDS: RT-ADVAIR HFA 45/21 MCG PER PUFF IH SCH ×2 (08:03→21:02)
--- NOTE | 2016-05-08 08:43 | Physical Therapy Daily Note ---
PT Daily Note-Current Subjective Patient in recliner pre tx, agrees to PT, states she has pain of 3/10 in her left side. Appearance Patient on toilet post tx, knows to pull nurse call when she is done Mental Status Patient Orientation: Person, Place, Situation Transfers Functional [place] Measure 0=Not Assessed/NA 4=Minimal Assistance 1=Total Assistance 5=Supervision or Setup 2=Maximal Assistance 6=Modified [place] 3=Moderate Assistance 7=Complete IndependenceIRFPAI Quality Coding Scale 6 Independent with activity with or without an assistive device 5 Patient requires set up or clean up by helper. Patient completes activity by themselves 4 Supervision or touching assist (CGA). [place] provide cues , steadying assist 3 The helper provides less than half the effort to complete the activity 2 The helper provides more than half the effort to complete the activity 1 Dependent. The helper does all the effort to complete an activity 7 Patient refused to complete or attempt activity 9 The patient did not perform the activity before the current illness or injury 88 Not attempted due to Medical conditions or safety concerns Transfers (B, C, W/C) (FIM): 5 Sit to/from Stand: 5 appropriate use of hands, no LOB Gait Training Gait (FIM): 5 Distance: 150'x2 Gait Level of Assist: 5 Gait Persons Needed: 1 Gait Assistive Device: FWW Patient was able to ambulate 150' without having to stop due to dizziness Exercises Standing: Hip Abduction, Hamstring curls, Heel/toe raises, Marching, Mini squats Standing Reps: 20 NuStep Minutes: 15 NuStep Workload: 4 Treatments functional strengthening, transfers, ambulation Assessment Current Status: Fair Progress Patient did need to rest between exercises in the parallel bars due to dizziness PT Short Term Goals Short Term Goals Time Frame: Apr 15, 2016 Transfers (B,C,W/C) (FIM): 5 Gait (FIM): 5 Distance (FIM): 3=150 ft Gait Distance Comment: 200' Gait Level of Assist: 5 Gait Assistive Device: FWW PT Fci Goals Ophthalmologist Retina Specialist Goals PT Fci Goals Time Frame: May 20, 2016 Transfers (B,C,W/C) (FIM): 6 Sit to Lying (QC): 6 Lying-Sitting on Side/Bed(QC): 6 Sit to Stand (QC): 6 Rollin Roll Left to Right (QC): 6 Chair/Zlr-ix-Ukswj Xfer(QC): 6 Car Transfer (QC): 6 Does the Patient Walk: Yes Gait (FIM): 6 Gait distance (FIM): 3=150 ft Distance: 250' Walk 10 feet (QC): 6 Walk 10ft-Uneven Surface(QC): 6 Walk 50ft with 2 Turns (QC): 6 Walk 150 ft (QC): 6 Gait Level of Assist: 6 Gait Assistive Device: None, FWW Stairs (FIM): 5 (household exception) # of Steps: 4 1 Step (curb) (QC): 6 4 Steps (QC): 5 12 Steps (QC): 9 Stairs Level Of Assist: 5 Picking up an Object (QC): 6 PT Plan Problem List Problem List: Activity Tolerance, Functional Strength, Safety, Balance, Gait, Transfer Treatment/Plan Treatment Plan: Continue Plan of Care Treatment Plan: Bed Mobility, Education, Functional Activity Lola, Functional Strength, Gait, Safety, Therapeutic Exercise, Transfers Treatment Duration: May 20, 2016 Minutes/Day (M-F): 60-90 Minutes/Day (Sat/Cuevas): PRN Safety Risks/Education Patient Education: Gait Training, Transfer Techniques, Safety Issues Teaching Recipient: Patient Teaching Methods: Demonstration, Discussion Response to Teaching: Reinforcement Needed Time/GCodes Time In: 800 Time Out: 845 Total Billed Treatment Time: 45 Total Billed Treatment 1 visit GT 15 min EX 30 min BRENT MORRIS PT May 08, 2016 08:43
[2016-05-08] MEDS: amLODIPine 5 MG (NORVASC) TAB PO SCH (08:45)
[2016-05-08] MEDS: LORATADINE (CLARITIN) 10 MG TAB PO SCH (08:45)
[2016-05-08] MEDS: ATORVASTATIN 10 MG (LIPITOR) TABLET PO SCH (08:45)
[2016-05-08] MEDS: meTOproloL SUCCINATE 50 MG (TOPROL XL) TAB PO SCH (08:45)
[2016-05-08] MEDS: MONTELUKAST 10 MG (SINGULAIR) TAB PO SCH (08:45)
[2016-05-08] MEDS: VITAMIN D3 5,000 UNITS (CHOLECALCIFEROL ) CAPSULE PO SCH ×2 (08:45→20:18)
[2016-05-08] MEDS: LORazepam 1 MG (ATIVAN) TAB PO SCH (08:46)
[2016-05-08] MEDS: GABAPENTIN 100 MG (NEURONTIN) CAP PO SCH ×2 (08:46→20:18)
[2016-05-08] MEDS: ACYCLOVIR 400 MG TABLET (ZOVIRAX) PO SCH ×3 (08:46→20:18)
[2016-05-08] MEDS: hydrALAZINE (APRESOLINE) 25 MG TAB PO SCH (08:46)
[2016-05-08] MEDS: CLOPIDOGREL 75 MG (PLAVIX) TABLET PO SCH (08:46)
[2016-05-08] MEDS: ASPIRIN E.C. 81 MG (ECOTRIN) TAB PO SCH (08:46)
--- NOTE | 2016-05-08 10:20 | Speech Therapy Daily Note ---
Speech Daily Progress Note Subjective The patient was sitting upright in recliner upon entrance. The patient greeted the clinician appropriately and agreed to participate in the speech therapy session on this date. Objective Oral Motor Exercises/Labial and Lingual Range of Motion and Strengthening: Oral motor exercises involving the tongue and lips were continued, discussed, and demonstrated on this date. The patient completed 10 repetitions of each exercise , independently. The patient completed exercises with high accuracy. Assessment Assessment Current Status: Excellent Progress Treatment Plan Discontinue ST, Goals Met Communication Comprehension: 6 Expression: 5 Social Cognition Social Interaction: 6 Problem Solvin Memory: 6 Speech Short Term Goals Short Term Goals Short Term Goals 1. The patient will demonstrate oral motor exercises with 90% accuracy, independently. Time Frame-STG: One Week Speech Longterm Goals Concrete Sculptor Goals 1. The patient will demonstrate increased labial and facial strength for improved intelligibility with verbal expression. Time Frame: Four Weeks Comprehension: 6 Expression: 5 Social Interaction: 6 Problem Solvin Memory: 6 Speech-Plan Treatment Plan Speech Therapy Treatment Plan: Discontinue ST, Goals Met The patient has met initial goals placed by ST and will be discharged from skilled speech services at this time. Treatment Duration: Jun 03, 2016 # of days/week Four to five. Visits Per Week: Four to Five. Minutes/Day (M-F): 30 Rehab Potential: Good Safety Risks/Education Teaching Recipient: Patient Teaching Methods: Discussion Response to Teaching: Verbalize Understanding Education Topics Provided: Plan of Care, Discharge Time Speech Therapy Time In: 09:45 Speech Therapy Time Out: 10:15 Total Billed Time: 30 Billed Treatment Time 1, ANNIE ERNANDEZ May 08, 2016 10:20
--- NOTE | 2016-05-08 10:22 | Therapy Team Discharge Summary ---
Therapy Discharge Summary Discharge Recommendations Date of Discharge Therapy D/C Recommendations: Home w/ Family Support, Occupational Therapy Home Care Speech-Language Pathology The patient was recently admitted to [facility] following a carotid endarterectomy resulting in debility. Upon admission, the patient reported and demonstrated mild dysarthria secondary to slight facial nerve paralysis. Skilled speech therapy services focused on oral motor exercises and labial/lingual strengthening. The patient met all goals placed by ST, demonstrating exercises with high accuracy, independently. At this time, the patient will be discharged from skilled speech services. PT Personal Lines Insurance Agent Goals Snf Goals PT Snf Goals Time Frame: May 20, 2016 Transfers (B,C,W/C) (FIM): 6 Roll Left to Right (QC): 6 Sit to Lying (QC): 6 Lying-Sitting on Side/Bed(QC): 6 Sit to Stand (QC): 6 Chair/Hpq-bo-Xeqdg Xfer(QC): 6 Car Transfer (QC): 6 Does the Patient Walk: Yes Gait (FIM): 6 Gait distance (FIM): 3=150 ft Distance: 250' Walk 10 feet (QC): 6 Walk 10ft-Uneven Surface(QC): 6 Walk 50ft with 2 Turns (QC): 6 Walk 150 ft (QC): 6 Gait Level of Assist: 6 Gait Assistive Device: None, FWW Stairs (FIM): 5 (household exception) # of Steps: 4 1 Step (curb) (QC): 6 4 Steps (QC): 5 12 Steps (QC): 9 Stairs Level Of Assist: 5 Picking up an Object (QC): 6 OT Personal Lines Insurance Agent Goals Snf Goals Time Frame: May 20, 2016 Eating (FIM): 6 Eating (QC): 6 Oral Hygiene (QC): 6 Grooming(FIM): 6 Bathing(FIM): 6 Shower/Bathe Self (QC): 6 Upper Body Dressing(FIM): 6 Upper Body Dressing (QC): 6 Lower Body Dressing(FIM): 6 Lower Body Dressing (QC): 6 On/Off Footwear (QC): 6 Toileting(FIM): 6 Toileting Hygiene (QC): 6 Toilet/Commode Transfer(FIM): 6 Toilet/Commode Transfer (QC): 6 Shower Transfer(FIM): 6 Comprehension(FIM): 6 Expression (FIM): 5 Social Interaction(FIM): 6 Problem Solving(FIM): 6 Memory(FIM): 6 1=Demonstrate adherence to instructed precautions during ADL tasks. 2=Patient will verbalize/demonstrate understanding of assistive devices/ modifications for ADL. 3=Patient will improve strength/tolerance for activity to enable patient to perform ADL's. Speech Snf Goals Snf Goals 1. The patient will demonstrate increased labial and facial strength for improved intelligibility with verbal expression. Time Frame: Four Weeks Comprehension: 6 (MET) Expression: 5 (MET) Social Interaction: 6 (MET) Problem Solvin (MET) Memory: 6 (MET) ANNIE RUBY May 08, 2016 10:22
--- NOTE | 2016-05-08 14:16 | Physical Therapy Daily Note ---
PT Daily Note-Current Subjective Patient is in recliner and agrees to PT. No c/o at this time. Pain Numeric Pain Scale: 0-No Pain Location: No Pain Reported Mental Status Patient Orientation: Normal For Age Transfers Functional [place] Measure 0=Not Assessed/NA 4=Minimal Assistance 1=Total Assistance 5=Supervision or Setup 2=Maximal Assistance 6=Modified [place] 3=Moderate Assistance 7=Complete IndependenceIRFPAI Quality Coding Scale 6 Independent with activity with or without an assistive device 5 Patient requires set up or clean up by helper. Patient completes activity by themselves 4 Supervision or touching assist (CGA). [place] provide cues , steadying assist 3 The helper provides less than half the effort to complete the activity 2 The helper provides more than half the effort to complete the activity 1 Dependent. The helper does all the effort to complete an activity 7 Patient refused to complete or attempt activity 9 The patient did not perform the activity before the current illness or injury 88 Not attempted due to Medical conditions or safety concerns Transfers (B, C, W/C) (FIM): 5 Scootin Sit to/from Stand: 5 Sit to Stand (QC): 5 Gait Training Does the Patient Walk?: Yes Gait (FIM): 5 Distance (FIM): 3=150 ft Distance: 300' x 1; 150' x 1 Walk 10 feet (QC): 5 Walk 50 ft with 2 Turns(QC): 5 Walk 150 ft (QC): 5 Gait Level of Assist: 5 Gait Assistive Device: FWW safe and functional Exercises NuStep Minutes: 15 NuStep Workload: 3 Assessment Patient is progressing with treatment and plans dismissing to home 05/13/16. PT to increase activity as tolerated by patient. PT Short Term Goals Short Term Goals Time Frame: Apr 15, 2016 Transfers (B,C,W/C) (FIM): 5 Gait (FIM): 5 Distance (FIM): 3=150 ft Gait Distance Comment: 200' Gait Level of Assist: 5 Gait Assistive Device: FWW PT Tile Setter Apprentice Goals Half-Way Goals PT Half-Way Goals Time Frame: May 20, 2016 Transfers (B,C,W/C) (FIM): 6 Sit to Lying (QC): 6 Lying-Sitting on Side/Bed(QC): 6 Sit to Stand (QC): 6 Rollin Roll Left to Right (QC): 6 Chair/Zkv-ev-Wsnjy Xfer(QC): 6 Car Transfer (QC): 6 Does the Patient Walk: Yes Gait (FIM): 6 Gait distance (FIM): 3=150 ft Distance: 250' Walk 10 feet (QC): 6 Walk 10ft-Uneven Surface(QC): 6 Walk 50ft with 2 Turns (QC): 6 Walk 150 ft (QC): 6 Gait Level of Assist: 6 Gait Assistive Device: None, FWW Stairs (FIM): 5 (household exception) # of Steps: 4 1 Step (curb) (QC): 6 4 Steps (QC): 5 12 Steps (QC): 9 Stairs Level Of Assist: 5 Picking up an Object (QC): 6 PT Plan Treatment/Plan Treatment Plan: Continue Plan of Care Treatment Plan: Bed Mobility, Education, Functional Activity Lola, Functional Strength, Gait, Safety, Therapeutic Exercise, Transfers Treatment Duration: May 20, 2016 Minutes/Day (M-F): 60-90 Minutes/Day (Sat/Cuevas): PRN Time/GCodes Time In: 1250 Time Out: 1320 Total Billed Treatment Time: 30 Total Billed Treatment 1 visit EX 15 min GT 15 min ARON GAMBLE PT May 08, 2016 14:16
--- NOTE | 2016-05-08 14:44 | Occupational Ther Daily Note ---
OT Current Status-Daily Note Subjective No pain reported. Appearance Pt. is up in chair. Agrees to shower. Mental Status/Objective Patient Orientation: Person, Place Functional [place] Measure 0=Not Assessed/NA 4=Minimal Assistance 1=Total Assistance 5=Supervision or Setup 2=Maximal Assistance 6=Modified [place] 3=Moderate Assistance 7=Complete [place] ADL-Treatment Functional [place] Measure 0=Not Assessed/NA 4=Minimal Assistance 1=Total Assistance 5=Supervision or Setup 2=Maximal Assistance 6=Modified [place] 3=Moderate Assistance 7=Complete IndependenceIRFPAI Quality Coding Scale 6 Independent with activity with or without an assistive device 5 Patient requires set up or clean up by helper. Patient completes activity by themselves 4 Supervision or touching assist (CGA). [place] provide cues , steadying assist 3 The helper provides less than half the effort to complete the activity 2 The helper provides more than half the effort to complete the activity 1 Dependent. The helper does all the effort to complete an activity 7 Patient refused to complete or attempt activity 9 The patient did not perform the activity before the current illness or injury 88 Not attempted due to Medical conditions or safety concerns Grooming (FIM): 5 (SBA at sink to brush hair and teeth.) Bathing (FIM): 5 (Pt. requires SBA in shower to bathe self.) Upper Body (FIM): 5 Lower Body Dressing (FIM): 4 (Pt. able to don underwear, pants, and shoes with SBA. Required min assist with sock aide to don socks.) Transfers (B, C, W/C) (FIM): 5 Shower Transfer(FIM): 5 (SBA to transfer into shower.) Other Treatment After ADLs in room, pt. ambulated to therapy gym. Completed armbike x 15 minutes to increase overall strength and endurance. O2 sats at 95% after shower. HR at 72 at end of this treatment. Donned 1 lb. wrist weights to increase overall strength and performed fine motor coordination task with pegs. Tolerated this treatment well by reaching consecutively with bilateral UE to put pegs into peg board. Education OT Patient Education: Correct positioning, Exercise program, Modified ADL techniques, Progress toward Goal/Update tx plan, Purpose of tx/functional activities, Reviewed precautions, Rehab process, Transfer techniques Teaching Recipient: Patient Teaching Methods: Demonstration, Discussion Response to Teaching: Verbalize Understanding, Return Demonstration OT Short Term Goals Short Term Goals Transfers (B,C,W/C) (FIM): 5 1=Demonstrate adherence to instructed precautions during ADL tasks. 2=Patient will verbalize/demonstrate understanding of assistive devices/ modifications for ADL. 3=Patient will improve strength/tolerance for activity to enable patient to perform ADL's. OT Color Depositing Machine Tender Goals Care Home Goals Time Frame: May 20, 2016 Eating (FIM): 6 Eating (QC): 6 Groomin Oral Hygiene (QC): 6 Bathing(FIM): 6 Shower/Bathe Self (QC): 6 Upper Body Dressing(FIM): 6 Upper Body Dressing (QC): 6 Lower Body Dressing(FIM): 6 Lower Body Dressing (QC): 6 On/Off Footwear (QC): 6 Toileting(FIM): 6 Toileting Hygiene (QC): 6 Toilet/Commode Transfer(FIM): 6 Toilet/Commode Transfer (QC): 6 Shower Transfer(FIM): 6 Comprehension(FIM): 6 (MET) Expression (FIM): 5 (MET) Social Interaction(FIM): 6 (MET) Problem Solving(FIM): 6 (MET) Memory(FIM): 6 (MET) 1=Demonstrate adherence to instructed precautions during ADL tasks. 2=Patient will verbalize/demonstrate understanding of assistive devices/ modifications for ADL. 3=Patient will improve strength/tolerance for activity to enable patient to perform ADL's. OT Education/Plan Problem List/Assessment Assessment: Decreased Activ Tolerance, Decreased UE Strength, Impaired I ADL's , Impaired Self-Care Skills Pt would benefit from skilled OT to increase her independence in basic self care to allow her to return to her home to live safely with nearby family support. Discharge Recommendations Plan/Recommendations: Continue POC Therapy D/C Recommendations: Home w/ Family Support, Occupational Therapy Home Care Treatment Plan/Plan of Care Treatment,Training & Education: Yes Patient would benefit from OT for education, treatment and training to promote independence in ADL's, mobility, safety and/or upper extremity function for ADL' s. Plan of Care: ADL Retraining, Functional Mobility, Group Exercise/Act as Ind ( education, exercise, activity tolerance, functional activities), UE Funct Exercise/Act, UE Neuromus Re-Ed/Coord Treatment Duration: May 20, 2016 Visits Per Week: 10-11 Minutes/Day (M-F): 75-90 Minutes/Day (Sat/Cuevas): PRN Agreement: Yes Rehab Potential: Good Time/GCodes Start Time: 10:15 Stop Time: 11:30 Total Time Billed (hr/min): 75 Billed Treatment Time 1, ADL x 30minutes, EX x 45minutes HENRIETTA ROSENBERG OT May 08, 2016 14:44
[2016-05-08 18:37] VITALS: BP 159/88
--- NOTE | 2016-05-08 19:33 | PM & R (SOAP) Progress Note ---
Subjective Subjective/Events-last exam Patient was seen in her room earlier today Progressing well with therapies.Patient SBA for transfers and gait Accucheks show good control DM Incision healing well Objective Exam Last Set of Vital Signs Vital Signs Date Time Temp Pulse Resp B/P Pulse Ox O2 Delivery O2 Flow Rate FiO2 05/08/16 18:37 97.9 75 20 159/88 94 Room Air Capillary Refill : I&O Intake and Output 05/08/16 00:00 Intake Total 975 ml Balance 975 ml Intake Oral 975 ml # Voids 5 # Bowel Movements 2 General: Alert, Oriented X3, Cooperative, No Acute Distress HEENT: Atraumatic, PERRLA, EOMI, Other (mild rt labial droop Hyperemic mucosa) Neck: Supple, No JVD Lungs: Clear to Auscultation Heart: Regular Rate Abdomen: Normal Bowel Sounds, Soft, No Tenderness Extremities: No Edema Neuro: Other (generalized weakness) Results Lab Laboratory Tests 05/06/16 15:46: Glucometer 402*H 05/06/16 18:27: Glucometer 384H 05/06/16 20:10: Glucometer 358H 05/07/16 05:35: Glucometer 85 05/07/16 08:35: Urine Bacteria TRACE, Urine Bilirubin NEGATIVE, Urine Casts NONE, Urine Clarity SLIGHTLY CLOUDY, Urine Color YELLOW, Urine Crystals NONE, Urine Culture Indicated YES, Urine Glucose (UA) NEGATIVE, Urine Ketones NEGATIVE, Urine Leukocyte Esterase 2+H, Urine Mucus NEGATIVE, Urine Nitrite NEGATIVE, Urine Other 5-10 TRANS EPIS, Urine Protein NEGATIVE, Urine RBC NONE, Urine RBC (Auto) NEGATIVE, Urine Specific [place] 1.005L, Urine Squamous Epithelial Cells 10-25H , Urine Urobilinogen NORMAL, Urine WBC 10-25H, Urine Yeast FEWH, Urine pH 7 05/07/16 11:04: Glucometer 110 05/07/16 16:03: Glucometer 199H 05/07/16 20:15: Glucometer 251H 05/08/16 05:06: Alanine Aminotransferase (ALT/SGPT) 60H, Albumin 3.7, Alkaline Phosphatase 101, Anion Gap 14, Aspartate Amino Transf (AST/SGOT) 45H, B-Type Natriuretic Peptide 147.1H, BUN/Creatinine Ratio 26, Band Neutrophils 0, Basophils # (Auto) 0.0, Basophils % (Manual) 0, Basophils (%) (Auto) 0, Blood Urea Nitrogen 31H, Calcium Level 8.9, Carbon Dioxide Level 26, Chloride Level 101, Creatinine 1.18 , Eosinophils # (Auto) 0.5H, Eosinophils % (Manual) 3, Eosinophils (%) (Auto) 4 , Estimat Glomerular Filtration Rate 46, Glucose Level 85, Hematocrit 31L, Hemoglobin 9.3L, Hypochromasia SLIGHT, Lymphocytes # (Auto) 3.3, Lymphocytes % ( Manual) 26, Lymphocytes (%) (Auto) 23, Mean Corpuscular Hemoglobin 27, Mean Corpuscular Hemoglobin Concent 30L, Mean Corpuscular Volume 89, Mean Platelet Volume 10.0, Monocytes # (Auto) 0.7, Monocytes % (Manual) 4, Monocytes (%) (Auto ) 5, Neutrophils # (Auto) 9.9H, Neutrophils % (Manual) 67, Neutrophils (%) (Auto ) 69, Platelet Count 343, Poikilocytosis SLIGHT, Polychromasia SLIGHT, Potassium Level 4.0, Red Blood Count 3.47L, Red Cell Distribution Width 14.9H, Sodium Level 141, Total Bilirubin 0.5, Total Protein 6.1L, White Blood Count 14.4H 05/08/16 06:09: Glucometer 86 05/08/16 11:02: Glucometer 148H 05/08/16 16:02: Glucometer 174H Microbiology 05/07/16 Urine Culture - Preliminary, Resulted Gram Negative Roberto Assessment/Plan Assessment S/P RT CEA at OSH for Carotid artery d. DM better controlled Insomnia-melatonin resumed Mild dysarthria-ST addressing Herpes Simplex-antiviral ordered Discussed case with DR Lemos today who IS PCP-He made courtesy visit today Appreciate Dr Carvajal consult and orders OA both knees s/p BTKRS remote Plan Continue PT/OT/ST Team Conference held earlier yesterday-See report for full functional update and POC and ELOS Appreciate DR carvajal notes and orders. See orders. WHIT ARRINGTON MD May 08, 2016 19:33
--- NOTE | 2016-05-08 19:41 | Individualized Plan of Care ---
Individualized Plan of Care Rehab Nursing IPOC Order Admission Date May 06, 2016 at 13:01 Current Orders Orders-WHIT ARRINGTON MD Insulin Aspart (Novolog) (Novolog (Charg (05/06/16 21:00) Patient Visit (05/07/16 ) Treat. Speech/Lang/Voice (05/07/16 ) Patient Visit (05/07/16 ) Gait Training, Ea 15 Min (05/07/16 ) Exercise Therap, Ea 15 Min (05/07/16 ) Functional Activities, Ea 15 (05/07/16 ) Nursing Communication (Pt.Care (05/07/16 14:59) Cbc With Automated Diff (05/12/16 04:00) Renal Profile (05/12/16 04:00) Melatonin Tablet (Melatonin Tablet) (05/07/16 21:00) Melatonin Tablet (Melatonin Tablet) (05/07/16 21:00) Melatonin Tablet (Melatonin Tablet) (05/07/16 20:24) Patient Visit (05/08/16 ) Treat. Speech/Lang/Voice (05/08/16 ) Patient Visit (05/08/16 ) Gait Training, Ea 15 Min (05/08/16 ) Exercise Therap, Ea 15 Min (05/08/16 ) Patient Visit (05/08/16 ) Exercise Therap, Ea 15 Min (05/08/16 ) Gait Training, Ea 15 Min (05/08/16 ) PT IPOC Problem List: Activity Tolerance, Functional Strength, Safety, Balance, Gait, Transfer Treatment Plan: Continue Plan of Care Bed Mobility, Education, Functional Activity [place], Functional Strength, Gait, Safety, Therapeutic Exercise, Transfers Treatment Duration: May 20, 2016 Visits Per Week: 10-11 Minutes/Day (M-F): 60-90 Minutes/Day (Sat/Cuevas): PRN OT IPOC Problems: Decreased Activ Tolerance, Decreased UE Strength, Impaired I ADL's, Impaired Self-Care Skills OT Problems Pt would benefit from skilled OT to increase her independence in basic self care to allow her to return to her home to live safely with nearby family support. Plan of Care: ADL Retraining, Functional Mobility, Group Exercise/Act as Ind ( education, exercise, activity tolerance, functional activities), UE Funct Exercise/Act, UE Neuromus Re-Ed/Coord Treatment Duration: May 20, 2016 Visits Per Week: 10-11 Minutes/Day (M-F): 75-90 Minutes/Day (Sat/Cuevas): PRN ST IPOC Speech Therapy Treatment Plan: Discontinue ST, Goals Met Treatment Duration: Jun 03, 2016 Visits Per Week: Four to Five. Minutes/Day (M-F): 30 Physician IPOC Medical Issues being managed closely and that require the 24 hour availability of a physician:dysarthria,poorly controlled DM all improved at this time 05/08/16 insomnia home melatonin resumed Medical Issues: DVT Prophylaxis, Falls Precautions, Fluid/Electrolyte/ Nutrition Balance, Infection Protection, Pain Management, Wound Care, Other ( List) (as per above) Brief Synthesis of Preadmission Screen, Post-Admission Evaluation, and Therapy Evaluations: 60 yo female s/p RT CEA done at OSH for Coritid Artery D referred to IRU for ongoing care and rehab.Accucheck > 400 upon admission and meds adjusted with good results Oral pain presumed [place] treated with med with improvement Home med for insomnia resumed Patient had been Independent prior to this PCP DR Lemos.Patient had mild postop dysarthria with rt labial droop now improved with ST and ST has signed off at this time Medical Prognosis: good Anticipated Length of Stay: 06/03/16 Rehab Goals Modified Independent for adls and mobility skills with improved speech and good wound healing as well as good control of DM Decreased oral pain Anticipated discharge destinat: Home with family and [facility] WHIT ARRINGTON MD May 08, 2016 19:41
[2016-05-08] MEDS: AMITRIPTYLINE 50 MG (ELAVIL) TAB PO SCH (20:18)
[2016-05-08] MEDS: MELATONIN 3 MG TABLET PO SCH (20:18)
[2016-05-08] MEDS: inSUlin DETERMIR 1 UNIT/0.01 ML (LEVEMIR) CHARGE PER UNIT SQ SCH (20:20)
[2016-05-08] MEDS: FLUTICASONE NASAL SPRAY (FLONASE) 16 GM BTL NS SCH (20:22)
[2016-05-09] MEDS: ACETAMINOPHEN 500 MG TAB (TYLENOL) PO PRN (05:22)
[2016-05-09 05:36] VITALS: BP 150/81
[2016-05-09] MEDS: inSUlin ASPART (NovoLOG) 1 UNIT/0.01 ML (CHARGE PER UNIT) SC SCH ×4 (06:00→20:34)
[2016-05-09] MEDS: MULTIVIT W/MINERALS TAB (THERAGRAN M) PO SCH (06:19)
[2016-05-09] MEDS: LEVOTHYROXINE 100 MCG (LEVOTHROID) TAB PO SCH (06:19)
[2016-05-09] MEDS: glipiZIDE 5 MG (GLUCOTROL) TAB PO SCH ×2 (06:19→17:00)
[2016-05-09] MEDS: RT-ADVAIR HFA 45/21 MCG PER PUFF IH SCH ×3 (06:55→18:56)
[2016-05-09 07:05] LABS: BASOPHILS % (AUTO) 0 % (0-10); EOSINOPHILS # (AUTO) 0.5 10^3/uL (0.0-0.3); EOSINOPHILS % (AUTO) 4 % (0-10); LYMPHOCYTES # (AUTO) 2.5 X 10^3 (1.0-4.0); LYMPHOCYTES % (AUTO) 17 % (12-44); MEAN CORPUSCULAR HEMOGLOBIN 27 PG (25-34); MEAN CORPUSCULAR HGB CONC 30 G/DL (32-36); MEAN CORPUSCULAR VOLUME 89 FL (80-99); MONOCYTES # (AUTO) 0.8 X 10^3 (0.0-1.0); MONOCYTES % (AUTO) 6 % (0-12); NEUTROPHILS # (AUTO) 11.1 X 10^3 (1.8-7.8); NEUTROPHILS % (AUTO) 74 % (42-75); PLATELET COUNT 352 10^3/uL (130-400); RED BLOOD COUNT 3.47 10^6/uL (4.35-5.85); WHITE BLOOD COUNT 14.9 10^3/uL (4.3-11.0)
[2016-05-09 07:28] LABS: ALBUMIN 3.7 G/DL (3.2-4.5); BILIRUBIN,TOTAL 0.5 MG/DL (0.1-1.0); CALCIUM 8.9 MG/DL (8.5-10.1); CREATININE SERUM 1.24 MG/DL (0.60-1.30); POTASSIUM 4.1 MMOL/L (3.6-5.0); TOTAL PROTEIN 6.2 G/DL (6.4-8.2)
--- NOTE | 2016-05-09 07:47 | Progress Note (SOAP) ---
Subjective Subjective/Events-last exam PATIENT STATES SHE FELT THE HEART FLUTTERING THIS MORNING. Patient in sinus rhythm now and did miss one beat. Patient voices no other complaints. Told patient if this continues we'll put her on telemetry. Patient has renal insufficiency to do a BMP on Thursday Objective Exam Vital Signs Date Time Temp Pulse Resp B/P Pulse Ox O2 Delivery O2 Flow Rate FiO2 05/09/16 06:55 92 05/09/16 05:36 96.0 80 20 150/81 93 Room Air 05/08/16 21:02 92 05/08/16 18:37 97.9 75 20 159/88 94 Room Air 05/08/16 09:00 Room Air I & O 05/09/16 07:00 Intake Total 1600 ml Balance 1600 ml Capillary Refill : General Appearance: No Apparent Distress WD/WN HEENT: Normal ENT Inspection Neck: Full Range of Motion Normal Inspection Respiratory: Chest Non Tender Lungs Clear Normal Breath Sounds No Accessory Muscle Use No Respiratory Distress Cardiovascular: Regular Rate, Rhythm Results Lab Laboratory Tests 05/08/16 11:02: Glucometer 148H 05/08/16 16:02: Glucometer 174H 05/08/16 20:14: Glucometer 176H 05/09/16 06:06: Glucometer 96 05/09/16 06:50: Alanine Aminotransferase (ALT/SGPT) 45, Albumin 3.7, Alkaline Phosphatase 102, Anion Gap 11, Aspartate Amino Transf (AST/SGOT) 23, BUN/Creatinine Ratio 20, Basophils # (Auto) 0.0, Basophils (%) (Auto) 0, Blood Urea Nitrogen 25H, Calcium Level 8.9, Carbon Dioxide Level 26, Chloride Level 102, Creatinine 1.24 , Eosinophils # (Auto) 0.5H, Eosinophils (%) (Auto) 4, Estimat Glomerular Filtration Rate 44, Glucose Level 129H, Hematocrit 31L, Hemoglobin 9.3L, Lymphocytes # (Auto) 2.5, Lymphocytes (%) (Auto) 17, Mean Corpuscular Hemoglobin 27, Mean Corpuscular Hemoglobin Concent 30L, Mean Corpuscular Volume 89, Mean Platelet Volume 10.0, Monocytes # (Auto) 0.8, Monocytes (%) (Auto) 6, Neutrophils # (Auto) 11.1H, Neutrophils (%) (Auto) 74, Platelet Count 352, Potassium Level 4.1, Red Blood Count 3.47L, Red Cell Distribution Width 15.0H, Sodium Level 139, Total Bilirubin 0.5, Total Protein 6.2L, White Blood Count 14.9H Microbiology 05/07/16 Urine Culture - Preliminary, Resulted Gram Negative Roberto Assessment/Plan Assessment/Plan Assess & Plan/Chief Complaint weakness. Carotid stenosis. Diabetes. History of renal failure. COPD. Asthma. Coronary artery disease History of infection. . 05/08/16. Weakness. Carotid stenosis. Diabetes. Renal insufficiency. History of infection. Asthma. . 05/09/16. Weakness. Carotid stenosis. Fluttering of heart. Diabetes. Renal insufficiency. CAD. Patient doing good. To monitor the flutter Diagnosis/Problems: Clinical Quality Measures DVT/VTE Risk/Contraindication: Risk Factor Score Per Nursin RFS Level Per Nursing on Admit: 4+=Very High VIELKA LUIS DO May 09, 2016 07:47
--- NOTE | 2016-05-09 08:39 | PM & R (SOAP) Progress Note ---
Subjective Subjective/Events-last exam Patient was seen in her room this AM Patient SBA for transfers Oral pain improved with antiviral RX.Postop anemia stable DM controlled Objective Exam Last Set of Vital Signs Vital Signs Date Time Temp Pulse Resp B/P Pulse Ox O2 Delivery O2 Flow Rate FiO2 05/09/16 06:55 92 05/09/16 05:36 96.0 80 20 150/81 Room Air Capillary Refill : I&O Intake and Output 05/09/16 00:00 Intake Total 1100 ml Balance 1100 ml Intake Oral 1100 ml # Voids 5 # Bowel Movements 2 General: Alert, Oriented X3, Cooperative, No Acute Distress HEENT: Atraumatic, PERRLA, EOMI, Other (mild rt labial droop Hyperemic mucosa) Neck: Supple, No JVD Lungs: Clear to Auscultation Heart: Regular Rate Abdomen: Normal Bowel Sounds, Soft, No Tenderness Extremities: No Edema Neuro: Other (generalized weakness) Results Lab Laboratory Tests 05/06/16 15:46: Glucometer 402*H 05/06/16 18:27: Glucometer 384H 05/06/16 20:10: Glucometer 358H 05/07/16 05:35: Glucometer 85 05/07/16 08:35: Urine Bacteria TRACE, Urine Bilirubin NEGATIVE, Urine Casts NONE, Urine Clarity SLIGHTLY CLOUDY, Urine Color YELLOW, Urine Crystals NONE, Urine Culture Indicated YES, Urine Glucose (UA) NEGATIVE, Urine Ketones NEGATIVE, Urine Leukocyte Esterase 2+H, Urine Mucus NEGATIVE, Urine Nitrite NEGATIVE, Urine Other 5-10 TRANS EPIS, Urine Protein NEGATIVE, Urine RBC NONE, Urine RBC (Auto) NEGATIVE, Urine Specific [place] 1.005L, Urine Squamous Epithelial Cells 10-25H , Urine Urobilinogen NORMAL, Urine WBC 10-25H, Urine Yeast FEWH, Urine pH 7 05/07/16 11:04: Glucometer 110 05/07/16 16:03: Glucometer 199H 05/07/16 20:15: Glucometer 251H 05/08/16 05:06: Alanine Aminotransferase (ALT/SGPT) 60H, Albumin 3.7, Alkaline Phosphatase 101, Anion Gap 14, Aspartate Amino Transf (AST/SGOT) 45H, B-Type Natriuretic Peptide 147.1H, BUN/Creatinine Ratio 26, Band Neutrophils 0, Basophils # (Auto) 0.0, Basophils % (Manual) 0, Basophils (%) (Auto) 0, Blood Urea Nitrogen 31H, Calcium Level 8.9, Carbon Dioxide Level 26, Chloride Level 101, Creatinine 1.18 , Eosinophils # (Auto) 0.5H, Eosinophils % (Manual) 3, Eosinophils (%) (Auto) 4 , Estimat Glomerular Filtration Rate 46, Glucose Level 85, Hematocrit 31L, Hemoglobin 9.3L, Hypochromasia SLIGHT, Lymphocytes # (Auto) 3.3, Lymphocytes % ( Manual) 26, Lymphocytes (%) (Auto) 23, Mean Corpuscular Hemoglobin 27, Mean Corpuscular Hemoglobin Concent 30L, Mean Corpuscular Volume 89, Mean Platelet Volume 10.0, Monocytes # (Auto) 0.7, Monocytes % (Manual) 4, Monocytes (%) (Auto ) 5, Neutrophils # (Auto) 9.9H, Neutrophils % (Manual) 67, Neutrophils (%) (Auto ) 69, Platelet Count 343, Poikilocytosis SLIGHT, Polychromasia SLIGHT, Potassium Level 4.0, Red Blood Count 3.47L, Red Cell Distribution Width 14.9H, Sodium Level 141, Total Bilirubin 0.5, Total Protein 6.1L, White Blood Count 14.4H 05/08/16 06:09: Glucometer 86 05/08/16 11:02: Glucometer 148H 05/08/16 16:02: Glucometer 174H 05/08/16 20:14: Glucometer 176H 05/09/16 06:06: Glucometer 96 05/09/16 06:50: Alanine Aminotransferase (ALT/SGPT) 45, Albumin 3.7, Alkaline Phosphatase 102, Anion Gap 11, Aspartate Amino Transf (AST/SGOT) 23, BUN/Creatinine Ratio 20, Basophils # (Auto) 0.0, Basophils (%) (Auto) 0, Blood Urea Nitrogen 25H, Calcium Level 8.9, Carbon Dioxide Level 26, Chloride Level 102, Creatinine 1.24 , Eosinophils # (Auto) 0.5H, Eosinophils (%) (Auto) 4, Estimat Glomerular Filtration Rate 44, Glucose Level 129H, Hematocrit 31L, Hemoglobin 9.3L, Lymphocytes # (Auto) 2.5, Lymphocytes (%) (Auto) 17, Mean Corpuscular Hemoglobin 27, Mean Corpuscular Hemoglobin Concent 30L, Mean Corpuscular Volume 89, Mean Platelet Volume 10.0, Monocytes # (Auto) 0.8, Monocytes (%) (Auto) 6, Neutrophils # (Auto) 11.1H, Neutrophils (%) (Auto) 74, Platelet Count 352, Potassium Level 4.1, Red Blood Count 3.47L, Red Cell Distribution Width 15.0H, Sodium Level 139, Total Bilirubin 0.5, Total Protein 6.2L, White Blood Count 14.9H Microbiology 05/07/16 Urine Culture - Preliminary, Resulted Gram Negative Roberto Assessment/Plan Assessment S/P RT CEA at OSH for Carotid artery d. DM better controlled Insomnia-melatonin resumed Mild dysarthria-ST addressing Herpes Simplex-antiviral ordered Discussed case with DR Lemos today who IS PCP-He made courtesy visit today Appreciate Dr Carvajal consult and orders OA both knees s/p BTKRS remote Plan Continue PT/OT/ST Team Conference held 05-07-16-See report for full functional update and POC and ELOS Appreciate DR carvajal notes and orders. Current labs appreciated WHIT ARRINGTON MD May 09, 2016 08:39
[2016-05-09] MEDS: VITAMIN D3 5,000 UNITS (CHOLECALCIFEROL ) CAPSULE PO SCH ×2 (08:41→20:34)
[2016-05-09] MEDS: MONTELUKAST 10 MG (SINGULAIR) TAB PO SCH (08:42)
[2016-05-09] MEDS: ASPIRIN E.C. 81 MG (ECOTRIN) TAB PO SCH (08:42)
[2016-05-09] MEDS: GABAPENTIN 100 MG (NEURONTIN) CAP PO SCH ×2 (08:42→20:34)
[2016-05-09] MEDS: hydrALAZINE (APRESOLINE) 25 MG TAB PO SCH (08:42)
[2016-05-09] MEDS: LORATADINE (CLARITIN) 10 MG TAB PO SCH (08:42)
[2016-05-09] MEDS: CLOPIDOGREL 75 MG (PLAVIX) TABLET PO SCH (08:42)
[2016-05-09] MEDS: ATORVASTATIN 10 MG (LIPITOR) TABLET PO SCH (08:42)
[2016-05-09] MEDS: meTOproloL SUCCINATE 50 MG (TOPROL XL) TAB PO SCH (08:42)
[2016-05-09] MEDS: ACYCLOVIR 400 MG TABLET (ZOVIRAX) PO SCH ×3 (08:42→20:34)
[2016-05-09] MEDS: LORazepam 1 MG (ATIVAN) TAB PO SCH (08:43)
[2016-05-09] MEDS: amLODIPine 5 MG (NORVASC) TAB PO SCH (08:43)
--- NOTE | 2016-05-09 09:01 | Physical Therapy Daily Note ---
PT Daily Note-Current Subjective Patient in bed pre tx, agrees to PT, states she has some discomfort in her left trunk but not what she would consider pain. Appearance Patient in recliner post tx with nurse in room to administer meds, has nurse call, phone, tray, all needs met. Mental Status Patient Orientation: Normal For Age Transfers Functional [place] Measure 0=Not Assessed/NA 4=Minimal Assistance 1=Total Assistance 5=Supervision or Setup 2=Maximal Assistance 6=Modified [place] 3=Moderate Assistance 7=Complete IndependenceIRFPAI Quality Coding Scale 6 Independent with activity with or without an assistive device 5 Patient requires set up or clean up by helper. Patient completes activity by themselves 4 Supervision or touching assist (CGA). [place] provide cues , steadying assist 3 The helper provides less than half the effort to complete the activity 2 The helper provides more than half the effort to complete the activity 1 Dependent. The helper does all the effort to complete an activity 7 Patient refused to complete or attempt activity 9 The patient did not perform the activity before the current illness or injury 88 Not attempted due to Medical conditions or safety concerns Transfers (B, C, W/C) (FIM): 5 Scootin Rollin Supine to/from Sit: 5 Sit to/from Stand: 5 cues for safety and hand placement, tends to stand pulling up from walker Gait Training Gait (FIM): 5 Distance: 400', 150' Gait Level of Assist: 5 Gait Persons Needed: 1 Gait Assistive Device: FWW slow, no LOB or unsteadiness Stair Training Stair Training: Handrails/: 2 handrails Stairs (FIM): 5 #of Steps: 12 Stairs: Pattern: Step to Level of Assist: 5 Exercises Seated Therapy Exercises: Ankle pumps, Hip flexion, Hip abd/add Seated Reps: 20 LAQ alternating for 5 min NuStep Minutes: 15 NuStep Workload: 5 Treatments functional strengthening, bed mobility and transfers, ambulation, stair training Assessment Current Status: Fair Progress improving mobility and endurance PT Short Term Goals Short Term Goals Time Frame: Apr 15, 2016 Transfers (B,C,W/C) (FIM): 5 Gait (FIM): 5 Distance (FIM): 3=150 ft Gait Distance Comment: 200' Gait Level of Assist: 5 Gait Assistive Device: FWW PT Pbx Teacher Goals Pbx Teacher Goals PT Care Home Goals Time Frame: May 20, 2016 Transfers (B,C,W/C) (FIM): 6 Sit to Lying (QC): 6 Lying-Sitting on Side/Bed(QC): 6 Sit to Stand (QC): 6 Rollin Roll Left to Right (QC): 6 Chair/[id number] Xfer(QC): 6 Car Transfer (QC): 6 Does the Patient Walk: Yes Gait (FIM): 6 Gait distance (FIM): 3=150 ft Distance: 250' Walk 10 feet (QC): 6 Walk 10ft-Uneven Surface(QC): 6 Walk 50ft with 2 Turns (QC): 6 Walk 150 ft (QC): 6 Gait Level of Assist: 6 Gait Assistive Device: None, FWW Stairs (FIM): 5 (household exception) # of Steps: 4 1 Step (curb) (QC): 6 4 Steps (QC): 5 12 Steps (QC): 9 Stairs Level Of Assist: 5 Picking up an Object (QC): 6 PT Plan Problem List Problem List: Activity Tolerance, Functional Strength, Safety, Balance, Gait, Transfer, Bed Mobility Treatment/Plan Treatment Plan: Continue Plan of Care Treatment Plan: Bed Mobility, Education, Functional Activity Lola, Functional Strength, Gait, Safety, Therapeutic Exercise, Transfers Treatment Duration: May 20, 2016 Visits Per Week: 10-11 Minutes/Day (M-F): 60-90 Minutes/Day (Sat/Cuevas): PRN Safety Risks/Education Patient Education: Gait Training, Transfer Techniques, Steps, Safety Issues Teaching Recipient: Patient Teaching Methods: Demonstration, Discussion Response to Teaching: Reinforcement Needed Time/GCodes Time In: 800 Time Out: 900 Total Billed Treatment Time: 60 Total Billed Treatment 1 visit GT 15 min FA 15 min EX 30 min BRENT MORRIS PT May 09, 2016 09:01
--- NOTE | 2016-05-09 11:37 | Occupational Ther Daily Note ---
OT Current Status-Daily Note Subjective Pt sitting in chair, agrees to treatment. Mental Status/Objective Functional [place] Measure 0=Not Assessed/NA 4=Minimal Assistance 1=Total Assistance 5=Supervision or Setup 2=Maximal Assistance 6=Modified [place] 3=Moderate Assistance 7=Complete [place] ADL-Treatment Pt declined bathing, states she took a shower last night. Pt already dressed and groomed this morning prior to therapy. Functional [place] Measure 0=Not Assessed/NA 4=Minimal Assistance 1=Total Assistance 5=Supervision or Setup 2=Maximal Assistance 6=Modified [place] 3=Moderate Assistance 7=Complete IndependenceIRFPAI Quality Coding Scale 6 Independent with activity with or without an assistive device 5 Patient requires set up or clean up by helper. Patient completes activity by themselves 4 Supervision or touching assist (CGA). [place] provide cues , steadying assist 3 The helper provides less than half the effort to complete the activity 2 The helper provides more than half the effort to complete the activity 1 Dependent. The helper does all the effort to complete an activity 7 Patient refused to complete or attempt activity 9 The patient did not perform the activity before the current illness or injury 88 Not attempted due to Medical conditions or safety concerns Other Treatment Sit to stand with SBA. Gait to therapy gym with FWW, no LOB noted. Pt donned 1 lb. wrist weights to increase overall strength and performed fine motor coordination task with pegs to increase coordination skills. Pt also performed fine motor task with nuts and bolts with 1# weights in place to increase strength and coordination. Arm bike x15 minutes to increase overall strength and activity tolerance. Pt completed task with minimal resistance and slow pace. Two rest breaks taken during activity. Pt completed putty activity with bilateral hands to increase strength. Pt then removed small beads from putty to increase manipulation skills. Pt performed sit to stand x10 reps to increase strength and safety needed for functional transfers. Pt able to complete sit to stand with SBA, occasional cues to push up from chair. Pt returned to room, transferred to chair with SBA. Sitting with needs met after session. OT Short Term Goals Short Term Goals Transfers (B,C,W/C) (FIM): 5 1=Demonstrate adherence to instructed precautions during ADL tasks. 2=Patient will verbalize/demonstrate understanding of assistive devices/ modifications for ADL. 3=Patient will improve strength/tolerance for activity to enable patient to perform ADL's. OT Resistance Welding Machine Operator Goals [facility] Goals Time Frame: May 20, 2016 Eating (FIM): 6 Eating (QC): 6 Groomin Oral Hygiene (QC): 6 Bathing(FIM): 6 Shower/Bathe Self (QC): 6 Upper Body Dressing(FIM): 6 Upper Body Dressing (QC): 6 Lower Body Dressing(FIM): 6 Lower Body Dressing (QC): 6 On/Off Footwear (QC): 6 Toileting(FIM): 6 Toileting Hygiene (QC): 6 Toilet/Commode Transfer(FIM): 6 Toilet/Commode Transfer (QC): 6 Shower Transfer(FIM): 6 Comprehension(FIM): 6 (MET) Expression (FIM): 5 (MET) Social Interaction(FIM): 6 (MET) Problem Solving(FIM): 6 (MET) Memory(FIM): 6 (MET) 1=Demonstrate adherence to instructed precautions during ADL tasks. 2=Patient will verbalize/demonstrate understanding of assistive devices/ modifications for ADL. 3=Patient will improve strength/tolerance for activity to enable patient to perform ADL's. OT Education/Plan Problem List/Assessment Pt would benefit from skilled OT to increase her independence in basic self care to allow her to return to her home to live safely with nearby family support. Discharge Recommendations Plan/Recommendations: Continue POC Treatment Plan/Plan of Care Patient would benefit from OT for education, treatment and training to promote independence in ADL's, mobility, safety and/or upper extremity function for ADL' s. Plan of Care: ADL Retraining, Functional Mobility, Group Exercise/Act as Ind ( education, exercise, activity tolerance, functional activities), UE Funct Exercise/Act, UE Neuromus Re-Ed/Coord Treatment Duration: May 20, 2016 Visits Per Week: 10-11 Minutes/Day (M-F): 75-90 Minutes/Day (Sat/Cuevas): PRN Agreement: Yes Rehab Potential: Good Time/GCodes Start Time: 09:00 Stop Time: 10:15 Total Time Billed (hr/min): 75 Billed Treatment Time 1 visit, EXx4(60minutes), FA(15minutes) SHARON GALLAGHER OT May 09, 2016 11:37
--- NOTE | 2016-05-09 11:42 | Occupational Ther Daily Note ---
OT Current Status-Daily Note Subjective Pt sitting in chair, agrees to treatment. Pt has no c/o pain. Mental Status/Objective Functional [place] Measure 0=Not Assessed/NA 4=Minimal Assistance 1=Total Assistance 5=Supervision or Setup 2=Maximal Assistance 6=Modified [place] 3=Moderate Assistance 7=Complete [place] ADL-Treatment Pt ambulated to ADL kitchen with SBA using FWW. Pt performed simple kitchen task to promote increased independence for home activities. Pt practiced getting items out of cabinets using FWW for balance. Pt able to fill cup with ice and water with SBA. Occasional cues required for FWW safety. Pt returned to room and transferred to toilet with SBA. Pt able to complete toileting hygiene with SBA. Stood at sink to wash hands with SBA. Pt sitting in chair with needs met after session, nurse aide present Functional [place] Measure 0=Not Assessed/NA 4=Minimal Assistance 1=Total Assistance 5=Supervision or Setup 2=Maximal Assistance 6=Modified [place] 3=Moderate Assistance 7=Complete IndependenceIRFPAI Quality Coding Scale 6 Independent with activity with or without an assistive device 5 Patient requires set up or clean up by helper. Patient completes activity by themselves 4 Supervision or touching assist (CGA). [place] provide cues , steadying assist 3 The helper provides less than half the effort to complete the activity 2 The helper provides more than half the effort to complete the activity 1 Dependent. The helper does all the effort to complete an activity 7 Patient refused to complete or attempt activity 9 The patient did not perform the activity before the current illness or injury 88 Not attempted due to Medical conditions or safety concerns Toileting (FIM): 5 Toilet/Commode Transfer (FIM): 5 Education OT Patient Education: Safety issues Teaching Recipient: Patient Teaching Methods: Discussion Response to Teaching: Verbalize Understanding OT Short Term Goals Short Term Goals Transfers (B,C,W/C) (FIM): 5 1=Demonstrate adherence to instructed precautions during ADL tasks. 2=Patient will verbalize/demonstrate understanding of assistive devices/ modifications for ADL. 3=Patient will improve strength/tolerance for activity to enable patient to perform ADL's. OT Plateman Goals [facility] Goals Time Frame: May 20, 2016 Eating (FIM): 6 Eating (QC): 6 Groomin Oral Hygiene (QC): 6 Bathing(FIM): 6 Shower/Bathe Self (QC): 6 Upper Body Dressing(FIM): 6 Upper Body Dressing (QC): 6 Lower Body Dressing(FIM): 6 Lower Body Dressing (QC): 6 On/Off Footwear (QC): 6 Toileting(FIM): 6 Toileting Hygiene (QC): 6 Toilet/Commode Transfer(FIM): 6 Toilet/Commode Transfer (QC): 6 Shower Transfer(FIM): 6 Comprehension(FIM): 6 (MET) Expression (FIM): 5 (MET) Social Interaction(FIM): 6 (MET) Problem Solving(FIM): 6 (MET) Memory(FIM): 6 (MET) 1=Demonstrate adherence to instructed precautions during ADL tasks. 2=Patient will verbalize/demonstrate understanding of assistive devices/ modifications for ADL. 3=Patient will improve strength/tolerance for activity to enable patient to perform ADL's. OT Education/Plan Problem List/Assessment Pt would benefit from skilled OT to increase her independence in basic self care to allow her to return to her home to live safely with nearby family support. Discharge Recommendations Plan/Recommendations: Continue POC Treatment Plan/Plan of Care Patient would benefit from OT for education, treatment and training to promote independence in ADL's, mobility, safety and/or upper extremity function for ADL' s. Plan of Care: ADL Retraining, Functional Mobility, Group Exercise/Act as Ind ( education, exercise, activity tolerance, functional activities), UE Funct Exercise/Act, UE Neuromus Re-Ed/Coord Treatment Duration: May 20, 2016 Visits Per Week: 10-11 Minutes/Day (M-F): 75-90 Minutes/Day (Sat/Cuevas): PRN Agreement: Yes Rehab Potential: Good Time/GCodes Start Time: 10:45 Stop Time: 11:00 Total Time Billed (hr/min): 15 Billed Treatment Time 1 visit, ADL(15minutes) SHARON GALLAGHER OT May 09, 2016 11:42
--- NOTE | 2016-05-09 16:38 | Physical Therapy Daily Note ---
PT Daily Note-Current Subjective Pt sitting in recliner upon arrival. Pt agrees to PT. Pain Numeric Pain Scale: 0-No Pain Location: No Pain Reported Mental Status Patient Orientation: Person, Place, Situation Transfers Functional [place] Measure 0=Not Assessed/NA 4=Minimal Assistance 1=Total Assistance 5=Supervision or Setup 2=Maximal Assistance 6=Modified [place] 3=Moderate Assistance 7=Complete IndependenceIRFPAI Quality Coding Scale 6 Independent with activity with or without an assistive device 5 Patient requires set up or clean up by helper. Patient completes activity by themselves 4 Supervision or touching assist (CGA). [place] provide cues , steadying assist 3 The helper provides less than half the effort to complete the activity 2 The helper provides more than half the effort to complete the activity 1 Dependent. The helper does all the effort to complete an activity 7 Patient refused to complete or attempt activity 9 The patient did not perform the activity before the current illness or injury 88 Not attempted due to Medical conditions or safety concerns Sc[place]in Sit to/from Stand: 5 Sit to Lying (QC): 5 Sit to Stand (QC): 5 Chair/Kzi-hs-Lpmqx Xfer(QC): 5 Bed to/from Chair: 5 Weight Bearing Weight Bearing Restriction: Full Weight Bearing Location Restriction: LE Bilateral Gait Training Does the Patient Walk?: Yes Gait (FIM): 5 Distance (FIM): 3=150 ft Distance: 150' Walk 10 feet (QC): 5 Walk 50 ft with 2 Turns(QC): 5 Walk 150 ft (QC): 5 Gait Level of Assist: 5 Gait Persons Needed: 1 Gait Assistive Device: FWW Exercises NuStep Minutes: 10 NuStep Workload: 5 Treatments Pt transferred and ambulated using FWW at [facility]. Pt used NuStep for strengthening and activity tolerance. Pt was left supine in bed with all needs met. Assessment Current Status: Good Progress Pt is transferring and ambulating at [facility] using FWW. PT Short Term Goals Short Term Goals Time Frame: Apr 15, 2016 Transfers (B,C,W/C) (FIM): 5 Gait (FIM): 5 Distance (FIM): 3=150 ft Gait Distance Comment: 200' Gait Level of Assist: 5 Gait Assistive Device: FWW PT Usp Goals Usp Goals PT Senior Pensions Administrator Goals Time Frame: May 20, 2016 Transfers (B,C,W/C) (FIM): 6 Sit to Lying (QC): 6 Lying-Sitting on Side/Bed(QC): 6 Sit to Stand (QC): 6 Rollin Roll Left to Right (QC): 6 Chair/Tml-ol-Cqtls Xfer(QC): 6 Car Transfer (QC): 6 Does the Patient Walk: Yes Gait (FIM): 6 Gait distance (FIM): 3=150 ft Distance: 250' Walk 10 feet (QC): 6 Walk 10ft-Uneven Surface(QC): 6 Walk 50ft with 2 Turns (QC): 6 Walk 150 ft (QC): 6 Gait Level of Assist: 6 Gait Assistive Device: None, FWW Stairs (FIM): 5 (household exception) # of Steps: 4 1 Step (curb) (QC): 6 4 Steps (QC): 5 12 Steps (QC): 9 Stairs Level Of Assist: 5 Picking up an Object (QC): 6 PT Plan Problem List Problem List: Activity Tolerance, Functional Strength, Gait Treatment/Plan Treatment Plan: Continue Plan of Care Treatment Plan: Bed Mobility, Education, Functional Activity [place]ola, Functional Strength, Gait, Safety, Therapeutic Exercise, Transfers Treatment Duration: May 20, 2016 Visits Per Week: 10-11 Minutes/Day (M-F): 60-90 Minutes/Day (Sat/Cuevas): PRN Safety Risks/Education Patient Education: Gait Training, Transfer Techniques, Correct Positioning, Safety Issues Teaching Recipient: Patient Teaching Methods: Discussion Response to Teaching: Verbalize Understanding Time/GCodes Time In: 1515 Time Out: 1545 Total Billed Treatment Time: 30 Total Billed Treatment visit, EX (15m) & GT (15m) FRANCIS IJN PTA May 09, 2016 16:38
[2016-05-09 20:05] VITALS: BP 119/74
[2016-05-09] MEDS: inSUlin DETERMIR 1 UNIT/0.01 ML (LEVEMIR) CHARGE PER UNIT SQ SCH (20:34)
[2016-05-09] MEDS: AMITRIPTYLINE 50 MG (ELAVIL) TAB PO SCH (20:34)
[2016-05-09] MEDS: MELATONIN 3 MG TABLET PO SCH (20:34)
[2016-05-09] MEDS: FLUTICASONE NASAL SPRAY (FLONASE) 16 GM BTL NS SCH (20:35)
[2016-05-10 06:00] VITALS: BP 158/78
[2016-05-10] MEDS: inSUlin ASPART (NovoLOG) 1 UNIT/0.01 ML (CHARGE PER UNIT) SC SCH ×4 (06:00→21:39)
[2016-05-10] MEDS: MULTIVIT W/MINERALS TAB (THERAGRAN M) PO SCH (06:07)
[2016-05-10] MEDS: LEVOTHYROXINE 100 MCG (LEVOTHROID) TAB PO SCH (06:07)
[2016-05-10] MEDS: glipiZIDE 5 MG (GLUCOTROL) TAB PO SCH ×2 (06:07→16:14)
[2016-05-10] MEDS: LORazepam 1 MG (ATIVAN) TAB PO SCH (08:18)
[2016-05-10] MEDS: VITAMIN D3 5,000 UNITS (CHOLECALCIFEROL ) CAPSULE PO SCH ×2 (08:18→20:08)
[2016-05-10] MEDS: ATORVASTATIN 10 MG (LIPITOR) TABLET PO SCH (08:18)
[2016-05-10] MEDS: meTOproloL SUCCINATE 50 MG (TOPROL XL) TAB PO SCH (08:18)
[2016-05-10] MEDS: ACYCLOVIR 400 MG TABLET (ZOVIRAX) PO SCH ×3 (08:19→20:08)
[2016-05-10] MEDS: amLODIPine 5 MG (NORVASC) TAB PO SCH (08:19)
[2016-05-10] MEDS: CLOPIDOGREL 75 MG (PLAVIX) TABLET PO SCH (08:19)
[2016-05-10] MEDS: LORATADINE (CLARITIN) 10 MG TAB PO SCH (08:19)
[2016-05-10] MEDS: GABAPENTIN 100 MG (NEURONTIN) CAP PO SCH ×2 (08:19→20:08)
[2016-05-10] MEDS: hydrALAZINE (APRESOLINE) 25 MG TAB PO SCH (08:19)
[2016-05-10] MEDS: ASPIRIN E.C. 81 MG (ECOTRIN) TAB PO SCH (08:19)
[2016-05-10] MEDS: MONTELUKAST 10 MG (SINGULAIR) TAB PO SCH (08:19)
[2016-05-10] MEDS: RT-ADVAIR HFA 45/21 MCG PER PUFF IH SCH ×2 (08:24→20:15)
--- NOTE | 2016-05-10 10:09 | Physical Therapy Daily Note ---
PT Daily Note-Current Subjective Pt agreeable. Pt denies pain. Pt reports overall she is getting stronger. Mental Status Patient Orientation: Person, Place, Situation Transfers Functional [place] Measure 0=Not Assessed/NA 4=Minimal Assistance 1=Total Assistance 5=Supervision or Setup 2=Maximal Assistance 6=Modified [place] 3=Moderate Assistance 7=Complete IndependenceIRFPAI Quality Coding Scale 6 Independent with activity with or without an assistive device 5 Patient requires set up or clean up by helper. Patient completes activity by themselves 4 Supervision or touching assist (CGA). [place] provide cues , steadying assist 3 The helper provides less than half the effort to complete the activity 2 The helper provides more than half the effort to complete the activity 1 Dependent. The helper does all the effort to complete an activity 7 Patient refused to complete or attempt activity 9 The patient did not perform the activity before the current illness or injury 88 Not attempted due to Medical conditions or safety concerns Gait Training Gait Assistive Device: FWW PT amb with FWW 2 x 400ft. Rest break of 2-3 min between. Pt CGA Exercises Seated Therapy Exercises: Ankle pumps, Long arc quads, Hip flexion, Hip abd/add Seated Reps: 20 Treatments PT seen for gait training, toileting SBA, and ther ex in chair. Assessment Current Status: Good Progress Pt vikash very well with rest breaks. No complaints. Pt back to chair with all needs met and call light in reach following therapy session. PT Short Term Goals Short Term Goals Time Frame: Apr 15, 2016 Transfers (B,C,W/C) (FIM): 5 Gait (FIM): 5 Distance (FIM): 3=150 ft Gait Distance Comment: 200' Gait Level of Assist: 5 Gait Assistive Device: FWW PT Halfway Goals Bank Courier Goals PT Bank Courier Goals Time Frame: May 20, 2016 Transfers (B,C,W/C) (FIM): 6 Sit to Lying (QC): 6 Lying-Sitting on Side/Bed(QC): 6 Sit to Stand (QC): 6 Rollin Roll Left to Right (QC): 6 Chair/Ffm-tt-Lxmeu Xfer(QC): 6 Car Transfer (QC): 6 Does the Patient Walk: Yes Gait (FIM): 6 Gait distance (FIM): 3=150 ft Distance: 250' Walk 10 feet (QC): 6 Walk 10ft-Uneven Surface(QC): 6 Walk 50ft with 2 Turns (QC): 6 Walk 150 ft (QC): 6 Gait Level of Assist: 6 Gait Assistive Device: None, FWW Stairs (FIM): 5 (household exception) # of Steps: 4 1 Step (curb) (QC): 6 4 Steps (QC): 5 12 Steps (QC): 9 Stairs Level Of Assist: 5 Picking up an Object (QC): 6 PT Plan Treatment/Plan Treatment Plan: Continue Plan of Care Treatment Plan: Bed Mobility, Education, Functional Activity [place], Functional Strength, Gait, Safety, Therapeutic Exercise, Transfers Treatment Duration: May 20, 2016 Visits Per Week: 10-11 Minutes/Day (M-F): 60-90 Minutes/Day (Sat/Cuevas): PRN Time/GCodes Time In: 950 Time Out: 1007 Total Billed Treatment Time: 15 Total Billed Treatment 1 gait 10min, Ther ex 5 min ROZINA MENG May 10, 2016 10:09
[2016-05-10] MEDS: MEROPENEM 500 MG in NS (IVPB) 100 ML IV SCH ×2 (16:12→21:32)
[2016-05-10] MEDS: fluCOnazole (DIFLUCAN) 100 MG TAB PO SCH (16:12)
[2016-05-10 18:12] VITALS: BP 133/85
[2016-05-10] MEDS: inSUlin DETERMIR 1 UNIT/0.01 ML (LEVEMIR) CHARGE PER UNIT SQ SCH (20:08)
[2016-05-10] MEDS: AMITRIPTYLINE 50 MG (ELAVIL) TAB PO SCH (20:08)
[2016-05-10] MEDS: FLUTICASONE NASAL SPRAY (FLONASE) 16 GM BTL NS SCH (20:09)
[2016-05-10] MEDS: MELATONIN 3 MG TABLET PO SCH (20:09)
[2016-05-10] MEDS: CATHETER FLUSH 10 ML SYR IV SCH (21:39)
[2016-05-11] MEDS: CATHETER FLUSH 10 ML SYR IV SCH ×3 (04:50→22:27)
[2016-05-11] MEDS: MEROPENEM 500 MG in NS (IVPB) 100 ML IV SCH ×4 (04:50→22:27)
[2016-05-11] MEDS: inSUlin ASPART (NovoLOG) 1 UNIT/0.01 ML (CHARGE PER UNIT) SC SCH ×4 (05:23→20:22)
[2016-05-11 06:03] VITALS: BP 129/77
[2016-05-11] MEDS: glipiZIDE 5 MG (GLUCOTROL) TAB PO SCH ×2 (06:32→16:48)
[2016-05-11] MEDS: MULTIVIT W/MINERALS TAB (THERAGRAN M) PO SCH (06:32)
[2016-05-11] MEDS: LEVOTHYROXINE 100 MCG (LEVOTHROID) TAB PO SCH (06:32)
[2016-05-11] MEDS: RT-ADVAIR HFA 45/21 MCG PER PUFF IH SCH ×2 (07:50→19:16)
[2016-05-11] MEDS: CLOPIDOGREL 75 MG (PLAVIX) TABLET PO SCH (09:50)
[2016-05-11] MEDS: hydrALAZINE (APRESOLINE) 25 MG TAB PO SCH (09:50)
[2016-05-11] MEDS: ACYCLOVIR 400 MG TABLET (ZOVIRAX) PO SCH ×2 (09:50→13:11)
[2016-05-11] MEDS: ATORVASTATIN 10 MG (LIPITOR) TABLET PO SCH (09:50)
[2016-05-11] MEDS: MONTELUKAST 10 MG (SINGULAIR) TAB PO SCH (09:50)
[2016-05-11] MEDS: meTOproloL SUCCINATE 50 MG (TOPROL XL) TAB PO SCH (09:50)
[2016-05-11] MEDS: LORATADINE (CLARITIN) 10 MG TAB PO SCH (09:51)
[2016-05-11] MEDS: amLODIPine 5 MG (NORVASC) TAB PO SCH (09:51)
[2016-05-11] MEDS: ASPIRIN E.C. 81 MG (ECOTRIN) TAB PO SCH (09:51)
[2016-05-11] MEDS: VITAMIN D3 5,000 UNITS (CHOLECALCIFEROL ) CAPSULE PO SCH ×2 (09:52→20:22)
[2016-05-11] MEDS: GABAPENTIN 100 MG (NEURONTIN) CAP PO SCH ×2 (09:52→20:22)
[2016-05-11] MEDS: LORazepam 1 MG (ATIVAN) TAB PO SCH (09:52)
[2016-05-11] MEDS: fluCOnazole (DIFLUCAN) 100 MG TAB PO SCH (15:33)
[2016-05-11 18:15] VITALS: BP 118/71
[2016-05-11] MEDS: FLUTICASONE NASAL SPRAY (FLONASE) 16 GM BTL NS SCH (20:22)
[2016-05-11] MEDS: AMITRIPTYLINE 50 MG (ELAVIL) TAB PO SCH (20:22)
[2016-05-11] MEDS: MELATONIN 3 MG TABLET PO SCH (20:22)
[2016-05-11] MEDS: inSUlin DETERMIR 1 UNIT/0.01 ML (LEVEMIR) CHARGE PER UNIT SQ SCH (20:23)
[2016-05-12] MEDS: CATHETER FLUSH 10 ML SYR IV SCH ×3 (03:51→21:36)
[2016-05-12] MEDS: MEROPENEM 500 MG in NS (IVPB) 100 ML IV SCH ×4 (03:51→21:36)
[2016-05-12 05:20] LABS: BASOPHILS # (AUTO) 0.1 10^3/uL (0.0-0.1); BASOPHILS % (AUTO) 1 % (0-10); EOSINOPHILS # (AUTO) 0.3 10^3/uL (0.0-0.3); EOSINOPHILS % (AUTO) 4 % (0-10); LYMPHOCYTES # (AUTO) 1.5 X 10^3 (1.0-4.0); LYMPHOCYTES % (AUTO) 18 % (12-44); MEAN CORPUSCULAR HGB CONC 30 G/DL (32-36); MEAN CORPUSCULAR VOLUME 90 FL (80-99); MEAN PLATELET VOLUME 8.9 FL (7.4-10.4); MONOCYTES # (AUTO) 0.7 X 10^3 (0.0-1.0); MONOCYTES % (AUTO) 8 % (0-12); NEUTROPHILS # (AUTO) 5.9 X 10^3 (1.8-7.8); NEUTROPHILS % (AUTO) 70 % (42-75)
[2016-05-12 05:22] LABS: MEAN CORPUSCULAR HEMOGLOBIN 27 PG (25-34); PLATELET COUNT 252 10^3/uL (130-400); RED BLOOD COUNT 3.33 10^6/uL (4.35-5.85); WHITE BLOOD COUNT 9.4 10^3/uL (4.3-11.0)
[2016-05-12 05:26] VITALS: BP 118/76
[2016-05-12 05:40] LABS: ALBUMIN 3.5 G/DL (3.2-4.5); BILIRUBIN,TOTAL 0.4 MG/DL (0.1-1.0); CREATININE SERUM 1.1 MG/DL (0.60-1.30); POTASSIUM 4.1 MMOL/L (3.6-5.0); TOTAL PROTEIN 6.1 G/DL (6.4-8.2)
[2016-05-12] MEDS: inSUlin ASPART (NovoLOG) 1 UNIT/0.01 ML (CHARGE PER UNIT) SC SCH ×4 (06:00→21:00)
[2016-05-12] MEDS: glipiZIDE 5 MG (GLUCOTROL) TAB PO SCH ×2 (06:27→16:41)
[2016-05-12] MEDS: LEVOTHYROXINE 100 MCG (LEVOTHROID) TAB PO SCH (06:27)
[2016-05-12] MEDS: MULTIVIT W/MINERALS TAB (THERAGRAN M) PO SCH (06:27)
--- NOTE | 2016-05-12 08:16 | Progress Note (SOAP) ---
Subjective Subjective/Events-last exam patient feeling good today. Heart regular. To do UA tomorrow. GFR increased to 50 from 44 Patient voices no complaints Objective Exam Vital Signs Date Time Temp Pulse Resp B/P Pulse Ox O2 Delivery O2 Flow Rate FiO2 05/12/16 05:26 98.9 77 18 118/76 90 Room Air 05/11/16 18:15 97.3 73 16 118/71 98 05/11/16 09:00 Room Air I & O 05/12/16 07:00 Intake Total 1760 ml Balance 1760 ml Capillary Refill : General Appearance: No Apparent Distress WD/WN HEENT: Normal ENT Inspection Respiratory: Chest Non Tender Lungs Clear Normal Breath Sounds No Accessory Muscle Use No Respiratory Distress Cardiovascular: Regular Rate, Rhythm No Murmur Results Lab Laboratory Tests 05/12/16 05:14 Laboratory Tests 05/11/16 11:00: Glucometer 182H 05/11/16 15:38: Glucometer 186H 05/11/16 20:11: Glucometer 266H 05/12/16 05:14: Alanine Aminotransferase (ALT/SGPT) 41, Albumin 3.5, Alkaline Phosphatase 113, Anion Gap 11, Aspartate Amino Transf (AST/SGOT) 31, BUN/Creatinine Ratio 13, Basophils # (Auto) 0.1, Basophils (%) (Auto) 1, Blood Urea Nitrogen 14, Calcium Level 9.0, Carbon Dioxide Level 23, Chloride Level 106, Creatinine 1.10, Eosinophils # (Auto) 0.3, Eosinophils (%) (Auto) 4, Estimat Glomerular Filtration Rate 50, Glucose Level 163H, Hematocrit 30L, Hemoglobin 9.1L, Lymphocytes # (Auto) 1.5, Lymphocytes (%) (Auto) 18, Mean Corpuscular Hemoglobin 27, Mean Corpuscular Hemoglobin Concent 30L, Mean Corpuscular Volume 90, Mean Platelet Volume 8.9, Monocytes # (Auto) 0.7, Monocytes (%) (Auto) 8, Neutrophils # (Auto) 5.9, Neutrophils (%) (Auto) 70, Platelet Count 252, Potassium Level 4.1, Red Blood Count 3.33L, Red Cell Distribution Width 16.0H, Sodium Level 140, Total Bilirubin 0.4, Total Protein 6.1L, White Blood Count 9.4 Microbiology 05/07/16 Urine Culture - Final, Complete Pseudomonas Aeruginosa Yeast Species Assessment/Plan Assessment/Plan Assess & Plan/Chief Complaint weakness. Carotid stenosis. Diabetes. History of renal failure. COPD. Asthma. Coronary artery disease History of infection. . 05/08/16. Weakness. Carotid stenosis. Diabetes. Renal insufficiency. History of infection. Asthma. . 05/09/16. Weakness. Carotid stenosis. Fluttering of heart. Diabetes. Renal insufficiency. CAD. Patient doing good. To monitor the flutter. . 05/12/16. GFR better at 50. Renal insufficiency. Carotid stenosis. Patient feeling better heart regular. Patient states occasionally heart flutters. Clinical Quality Measures DVT/VTE Risk/Contraindication: Risk Factor Score Per Nursin RFS Level Per Nursing on Admit: 4+=Very High VIELKA LUIS DO May 12, 2016 08:16
[2016-05-12] MEDS: LORATADINE (CLARITIN) 10 MG TAB PO SCH (08:43)
[2016-05-12] MEDS: ASPIRIN E.C. 81 MG (ECOTRIN) TAB PO SCH (08:43)
[2016-05-12] MEDS: ATORVASTATIN 10 MG (LIPITOR) TABLET PO SCH (08:43)
[2016-05-12] MEDS: meTOproloL SUCCINATE 50 MG (TOPROL XL) TAB PO SCH (08:44)
[2016-05-12] MEDS: hydrALAZINE (APRESOLINE) 25 MG TAB PO SCH (08:44)
[2016-05-12] MEDS: LORazepam 1 MG (ATIVAN) TAB PO SCH (08:44)
[2016-05-12] MEDS: CLOPIDOGREL 75 MG (PLAVIX) TABLET PO SCH (08:44)
[2016-05-12] MEDS: GABAPENTIN 100 MG (NEURONTIN) CAP PO SCH ×2 (08:44→21:35)
[2016-05-12] MEDS: MONTELUKAST 10 MG (SINGULAIR) TAB PO SCH (08:44)
[2016-05-12] MEDS: VITAMIN D3 5,000 UNITS (CHOLECALCIFEROL ) CAPSULE PO SCH ×2 (08:44→21:35)
[2016-05-12] MEDS: amLODIPine 5 MG (NORVASC) TAB PO SCH (08:45)
--- NOTE | 2016-05-12 09:44 | Physical Therapy Daily Note ---
PT Daily Note-Current Subjective Patient in recliner pre tx, agrees to PT, pleasant and cooperative. Pain Numeric Pain Scale: 0-No Pain Appearance Patient in recliner post tx with nurse call, phone, tray, all needs met. Discussed with nurse about making the patient independent in her room and allowing her to use the rest room by herself. PT and nurse agree to let her do that. Mental Status Patient Orientation: Normal For Age Transfers Functional [place] Measure 0=Not Assessed/NA 4=Minimal Assistance 1=Total Assistance 5=Supervision or Setup 2=Maximal Assistance 6=Modified [place] 3=Moderate Assistance 7=Complete IndependenceIRFPAI Quality Coding Scale 6 Independent with activity with or without an assistive device 5 Patient requires set up or clean up by helper. Patient completes activity by themselves 4 Supervision or touching assist (CGA). [place] provide cues , steadying assist 3 The helper provides less than half the effort to complete the activity 2 The helper provides more than half the effort to complete the activity 1 Dependent. The helper does all the effort to complete an activity 7 Patient refused to complete or attempt activity 9 The patient did not perform the activity before the current illness or injury 88 Not attempted due to Medical conditions or safety concerns Transfers (B, C, W/C) (FIM): 6 Sit to/from Stand: 6 Patient still occasionally needs reminded to use hands when standing or sitting. Gait Training Gait (FIM): 6 Distance: 500', 150' Gait Assistive Device: FWW slow but steady, no LOB Stair Training Stair Training: Handrails/: 2 handrails Stairs (FIM): 5 #of Steps: 12 Stairs: Pattern: Step to Level of Assist: 5 Exercises Standing: Hip Abduction, Hamstring curls, Heel/toe raises, Mini squats Standing Reps: 20 LAQ alternating with 2# ankle weights for 5 min, step ups x10 each side NuStep Minutes: 15 NuStep Workload: 5 Treatments functional strengthening, stair training, gait training, transfers Assessment Current Status: Fair Progress improving steadily with mobility PT Short Term Goals Short Term Goals Time Frame: Apr 15, 2016 Transfers (B,C,W/C) (FIM): 5 Gait (FIM): 5 Distance (FIM): 3=150 ft Gait Distance Comment: 200' Gait Level of Assist: 5 Gait Assistive Device: FWW PT Halfway Goals Halfway Goals PT Steward Dishwasher Goals Time Frame: May 20, 2016 Transfers (B,C,W/C) (FIM): 6 Sit to Lying (QC): 6 Lying-Sitting on Side/Bed(QC): 6 Sit to Stand (QC): 6 Rollin Roll Left to Right (QC): 6 Chair/Sxk-qv-Tgrdp Xfer(QC): 6 Car Transfer (QC): 6 Does the Patient Walk: Yes Gait (FIM): 6 Gait distance (FIM): 3=150 ft Distance: 250' Walk 10 feet (QC): 6 Walk 10ft-Uneven Surface(QC): 6 Walk 50ft with 2 Turns (QC): 6 Walk 150 ft (QC): 6 Gait Level of Assist: 6 Gait Assistive Device: None, FWW Stairs (FIM): 5 (household exception) # of Steps: 4 1 Step (curb) (QC): 6 4 Steps (QC): 5 12 Steps (QC): 9 Stairs Level Of Assist: 5 Picking up an Object (QC): 6 PT Plan Problem List Problem List: Activity Tolerance, Functional Strength, Safety, Balance, Gait, Transfer Treatment/Plan Treatment Plan: Continue Plan of Care Treatment Plan: Bed Mobility, Education, Functional Activity [place], Functional Strength, Gait, Safety, Therapeutic Exercise, Transfers Treatment Duration: May 20, 2016 Visits Per Week: 10-11 Minutes/Day (M-F): 60-90 Minutes/Day (Sat/Cuevas): PRN Safety Risks/Education Patient Education: Gait Training, Transfer Techniques, Steps, Safety Issues Teaching Recipient: Patient Teaching Methods: Demonstration, Discussion Response to Teaching: Reinforcement Needed Time/GCodes Time In: 845 Time Out: 945 Total Billed Treatment Time: 60 Total Billed Treatment 1 visit GT 15 min FA 15 min EX 30 min BRENT MORRIS PT May 12, 2016 09:44
[2016-05-12] MEDS: RT-ADVAIR HFA 45/21 MCG PER PUFF IH SCH ×2 (11:23→20:35)
--- NOTE | 2016-05-12 11:24 | Occupational Ther Daily Note ---
OT Current Status-Daily Note Subjective No pain reported. Appearance Pt. is up in chair. Agrees to shower and complete ADL tasks with OT. Mental Status/Objective Patient Orientation: Person, Place, Time, Situation Functional [place] Measure 0=Not Assessed/NA 4=Minimal Assistance 1=Total Assistance 5=Supervision or Setup 2=Maximal Assistance 6=Modified [place] 3=Moderate Assistance 7=Complete [place] ADL-Treatment Functional [place] Measure 0=Not Assessed/NA 4=Minimal Assistance 1=Total Assistance 5=Supervision or Setup 2=Maximal Assistance 6=Modified [place] 3=Moderate Assistance 7=Complete IndependenceIRFPAI Quality Coding Scale 6 Independent with activity with or without an assistive device 5 Patient requires set up or clean up by helper. Patient completes activity by themselves 4 Supervision or touching assist (CGA). [place] provide cues , steadying assist 3 The helper provides less than half the effort to complete the activity 2 The helper provides more than half the effort to complete the activity 1 Dependent. The helper does all the effort to complete an activity 7 Patient refused to complete or attempt activity 9 The patient did not perform the activity before the current illness or injury 88 Not attempted due to Medical conditions or safety concerns Grooming (FIM): 6 (Pt. is able to brush hair at sink with walker in front.) Bathing (FIM): 5 (Pt. showered this date with SBA required.) Shower/Bathe Self (QC): 5 Upper Body (FIM): 6 Upper Body Dressing (QC): 6 Lower Body Dressing (FIM): 4 (Pt. requested for OT to don socks. States that she has a system at home, and is able to do this on the bed.) Lower Body Dressing (QC): 4 Transfers (B, C, W/C) (FIM): 6 (Pt. is able to transfer with Mod I. Pt. is now up ad dell in her room.) Shower Transfer(FIM): 5 Other Treatment After ADL treatment, pt. ambulated with Mod I to therapy gym. Tolerated 15 minutes on armbike to increase overall strength and endurance. Pt. then donned 1 lb. wrist weights and completed fine motor peg activity with bilateral UE to increase strength. Went to kitchen. Completed kitchen task with walker. Able to retrieve items from high/low cabinets, as well as out of the refridgerator, with Mod I. Pt. educated in walker and kitchen safety. Verbalizes understanding. Went back to room. Needs met in room. PT/nursing/pt., and OT all aware that pt. is up ad dell in room. Education OT Patient Education: Exercise program, Modified ADL techniques, Progress toward Goal/Update tx plan, Purpose of tx/functional activities, Reviewed precautions, Rehab process, Transfer techniques Teaching Recipient: Patient Teaching Methods: Demonstration, Discussion Response to Teaching: Verbalize Understanding, Return Demonstration OT Short Term Goals Short Term Goals Transfers (B,C,W/C) (FIM): 5 1=Demonstrate adherence to instructed precautions during ADL tasks. 2=Patient will verbalize/demonstrate understanding of assistive devices/ modifications for ADL. 3=Patient will improve strength/tolerance for activity to enable patient to perform ADL's. OT Nursing Home Goals Nursing Home Goals Time Frame: May 20, 2016 Eating (FIM): 6 Eating (QC): 6 Groomin Oral Hygiene (QC): 6 Bathing(FIM): 6 Shower/Bathe Self (QC): 6 Upper Body Dressing(FIM): 6 Upper Body Dressing (QC): 6 Lower Body Dressing(FIM): 6 Lower Body Dressing (QC): 6 On/Off Footwear (QC): 6 Toileting(FIM): 6 Toileting Hygiene (QC): 6 Toilet/Commode Transfer(FIM): 6 Toilet/Commode Transfer (QC): 6 Shower Transfer(FIM): 6 Comprehension(FIM): 6 (MET) Expression (FIM): 5 (MET) Social Interaction(FIM): 6 (MET) Problem Solving(FIM): 6 (MET) Memory(FIM): 6 (MET) 1=Demonstrate adherence to instructed precautions during ADL tasks. 2=Patient will verbalize/demonstrate understanding of assistive devices/ modifications for ADL. 3=Patient will improve strength/tolerance for activity to enable patient to perform ADL's. OT Education/Plan Problem List/Assessment Assessment: Decreased Activ Tolerance, Impaired I ADL's, Impaired Self-Care Skills Pt would benefit from skilled OT to increase her independence in basic self care to allow her to return to her home to live safely with nearby family support. Discharge Recommendations Plan/Recommendations: Continue POC Therapy D/C Recommendations: Home w/ Family Support, Occupational Therapy Home Care Treatment Plan/Plan of Care Treatment,Training & Education: Yes Patient would benefit from OT for education, treatment and training to promote independence in ADL's, mobility, safety and/or upper extremity function for ADL' s. Plan of Care: ADL Retraining, Functional Mobility, Group Exercise/Act as Ind ( education, exercise, activity tolerance, functional activities), UE Funct Exercise/Act, UE Neuromus Re-Ed/Coord Treatment Duration: May 20, 2016 Visits Per Week: 10-11 Minutes/Day (M-F): 75-90 Minutes/Day (Sat/Cuevas): PRN Agreement: Yes Rehab Potential: Good Time/GCodes Start Time: 09:45 Stop Time: 11:15 Total Time Billed (hr/min): 90 Billed Treatment Time 1, ADL x 45minutes, Ex x 45minutes HENRIETTA ROSENBERG OT May 12, 2016 11:24
--- NOTE | 2016-05-12 13:53 | Physical Therapy Daily Note ---
PT Daily Note-Current Subjective Pt sitting in recliner with feet raised upon arrival. Pt agrees to PT. Pain Numeric Pain Scale: 0-No Pain Location: No Pain Reported Mental Status Patient Orientation: Person, Place, Situation Attachments: IV Transfers Functional [place] Measure 0=Not Assessed/NA 4=Minimal Assistance 1=Total Assistance 5=Supervision or Setup 2=Maximal Assistance 6=Modified [place] 3=Moderate Assistance 7=Complete IndependenceIRFPAI Quality Coding Scale 6 Independent with activity with or without an assistive device 5 Patient requires set up or clean up by helper. Patient completes activity by themselves 4 Supervision or touching assist (CGA). [place] provide cues , steadying assist 3 The helper provides less than half the effort to complete the activity 2 The helper provides more than half the effort to complete the activity 1 Dependent. The helper does all the effort to complete an activity 7 Patient refused to complete or attempt activity 9 The patient did not perform the activity before the current illness or injury 88 Not attempted due to Medical conditions or safety concerns Transfers (B, C, W/C) (FIM): 6 Scootin Rollin Roll Left to Right (QC): 6 Supine to/from Sit: 6 Sit to/from Stand: 6 Sit to Lying (QC): 6 Sit to Stand (QC): 6 Chair/Drm-py-[place] Xfer(QC): 6 Bed to/from Chair: 6 Weight Bearing Weight Bearing Restriction: Full Weight Bearing Location Restriction: LE Bilateral Gait Training Does the Patient Walk?: Yes Gait (FIM): 6 Distance (FIM): 3=150 ft Distance: 200' Walk 10 feet (QC): 6 Walk 50 ft with 2 Turns(QC): 6 Walk 150 ft (QC): 6 Gait Level of Assist: 6 Gait Persons Needed: 1 Gait Assistive Device: FWW Pt walks with slow but steady gait pattern, no LOB. Wheelchair Training Does the Pt Use a Wheelchair?: No Exercises Standing: Hip Abduction, Heel/toe raises, 3 way Ex=Flex, Abd, Ext, Mini squats , Step-ups, Weight shifts Standing Reps: 20 Treatments Pt transfers and ambulates using FWW at Mod I. Pt uses restroom before leaving room for tx. Pt completes Standing Ex at //bars. Pt returns to room to rest supine in bed at end of tx with all needs met. Assessment Current Status: Good Progress Pt has improved with increased independence of transfers and ambulation. PT Short Term Goals Short Term Goals Time Frame: Apr 15, 2016 Transfers (B,C,W/C) (FIM): 5 Gait (FIM): 5 Distance (FIM): 3=150 ft Gait Distance Comment: 200' Gait Level of Assist: 5 Gait Assistive Device: FWW PT Senior Care Goals Senior Care Goals PT Senior Care Goals Time Frame: May 20, 2016 Transfers (B,C,W/C) (FIM): 6 Sit to Lying (QC): 6 Lying-Sitting on Side/Bed(QC): 6 Sit to Stand (QC): 6 Rollin Roll Left to Right (QC): 6 Chair/Rrg-dd-Oorwz Xfer(QC): 6 Car Transfer (QC): 6 Does the Patient Walk: Yes Gait (FIM): 6 Gait distance (FIM): 3=150 ft Distance: 250' Walk 10 feet (QC): 6 Walk 10ft-Uneven Surface(QC): 6 Walk 50ft with 2 Turns (QC): 6 Walk 150 ft (QC): 6 Gait Level of Assist: 6 Gait Assistive Device: None, FWW Stairs (FIM): 5 (household exception) # of Steps: 4 1 Step (curb) (QC): 6 4 Steps (QC): 5 12 Steps (QC): 9 Stairs Level Of Assist: 5 Picking up an Object (QC): 6 PT Plan Problem List Problem List: Activity Tolerance, Functional Strength, Safety, Balance Treatment/Plan Treatment Plan: Continue Plan of Care Treatment Plan: Bed Mobility, Education, Functional Activity Lola, Functional Strength, Gait, Safety, Therapeutic Exercise, Transfers Treatment Duration: May 20, 2016 Visits Per Week: 10-11 Minutes/Day (M-F): 60-90 Minutes/Day (Sat/Cuevas): PRN Safety Risks/Education Patient Education: Gait Training, Transfer Techniques, Correct Positioning, Safety Issues Teaching Recipient: Patient Teaching Methods: Discussion Response to Teaching: Verbalize Understanding Time/GCodes Time In: 1300 Time Out: 1330 Total Billed Treatment Time: 30 Total Billed Treatment visit, EX (20m) & GT (10m) FRANCIS JIN PTA May 12, 2016 13:53
[2016-05-12] MEDS: ACETAMINOPHEN 500 MG TAB (TYLENOL) PO PRN (14:58)
[2016-05-12] MEDS: fluCOnazole (DIFLUCAN) 100 MG TAB PO SCH (15:00)
[2016-05-12 17:54] VITALS: BP 116/70
--- NOTE | 2016-05-12 19:45 | PM & R (SOAP) Progress Note ---
Subjective Subjective/Events-last exam Patient was seen in her room this evening Discharge postponed so that patient can complete course of IV antibiotics Patient Modified Independent for transfers Objective Exam Last Set of Vital Signs Vital Signs Date Time Temp Pulse Resp B/P Pulse Ox O2 Delivery O2 Flow Rate FiO2 05/12/16 17:54 97.8 68 18 116/70 96 Room Air Capillary Refill : I&O Intake and Output 05/12/16 00:00 Intake Total 1610 ml Balance 1610 ml Intake Oral 1280 ml IV Total 330 ml # Voids 7 General: Alert, Oriented X3, Cooperative, No Acute Distress HEENT: Atraumatic, PERRLA, EOMI, Other (mild rt labial droop Hyperemic mucosa) Neck: Supple, No JVD Lungs: Clear to Auscultation Heart: Regular Rate Abdomen: Normal Bowel Sounds, Soft, No Tenderness Extremities: No Edema Neuro: Other (generalized weakness) Results Lab Laboratory Tests 05/09/16 20:04: Glucometer 231H 05/10/16 06:00: Glucometer 121H 05/10/16 10:58: Glucometer 166H 05/10/16 16:07: Glucometer 179H 05/10/16 21:26: Glucometer 213H 05/11/16 04:56: Glucometer 162H 05/11/16 11:00: Glucometer 182H 05/11/16 15:38: Glucometer 186H 05/11/16 20:11: Glucometer 266H 05/12/16 05:14: Alanine Aminotransferase (ALT/SGPT) 41, Albumin 3.5, Alkaline Phosphatase 113, Anion Gap 11, Aspartate Amino Transf (AST/SGOT) 31, BUN/Creatinine Ratio 13, Basophils # (Auto) 0.1, Basophils (%) (Auto) 1, Blood Urea Nitrogen 14, Calcium Level 9.0, Carbon Dioxide Level 23, Chloride Level 106, Creatinine 1.10, Eosinophils # (Auto) 0.3, Eosinophils (%) (Auto) 4, Estimat Glomerular Filtration Rate 50, Glucose Level 163H, Hematocrit 30L, Hemoglobin 9.1L, Lymphocytes # (Auto) 1.5, Lymphocytes (%) (Auto) 18, Mean Corpuscular Hemoglobin 27, Mean Corpuscular Hemoglobin Concent 30L, Mean Corpuscular Volume 90, Mean Platelet Volume 8.9, Monocytes # (Auto) 0.7, Monocytes (%) (Auto) 8, Neutrophils # (Auto) 5.9, Neutrophils (%) (Auto) 70, Platelet Count 252, Potassium Level 4.1, Red Blood Count 3.33L, Red Cell Distribution Width 16.0H, Sodium Level 140, Total Bilirubin 0.4, Total Protein 6.1L, White Blood Count 9.4 05/12/16 11:12: Glucometer 191H 05/12/16 15:31: Glucometer 159H Microbiology 05/07/16 Urine Culture - Final, Complete Pseudomonas Aeruginosa Yeast Species Assessment/Plan Assessment S/P RT CEA at OSH for Carotid artery d. DM better controlled Insomnia-melatonin resumed Mild dysarthria-ST addressing Herpes Simplex-antiviral ordered Discussed case with DR Lemos today who IS PCP-He made courtesy visit today Appreciate Dr Carvajal consult and orders OA both knees s/p BTKRS remote Plan Continue PT/OT/ST Next Team Conference to be held 05/14/[address] carvajal notes and orders. Current labs appreciated WHIT ARRINGTON MD May 12, 2016 19:45
[2016-05-12] MEDS: inSUlin DETERMIR 1 UNIT/0.01 ML (LEVEMIR) CHARGE PER UNIT SQ SCH (21:35)
[2016-05-12] MEDS: MELATONIN 3 MG TABLET PO SCH (21:36)
[2016-05-12] MEDS: AMITRIPTYLINE 50 MG (ELAVIL) TAB PO SCH (21:36)
[2016-05-12] MEDS: FLUTICASONE NASAL SPRAY (FLONASE) 16 GM BTL NS SCH (21:38)
[2016-05-13] MEDS: MEROPENEM 500 MG in NS (IVPB) 100 ML IV SCH ×4 (05:00→21:29)
[2016-05-13] MEDS: LEVOTHYROXINE 100 MCG (LEVOTHROID) TAB PO SCH (05:02)
[2016-05-13] MEDS: CATHETER FLUSH 10 ML SYR IV SCH ×3 (05:04→20:16)
[2016-05-13] MEDS: inSUlin ASPART (NovoLOG) 1 UNIT/0.01 ML (CHARGE PER UNIT) SC SCH ×4 (05:04→20:14)
[2016-05-13 06:00] VITALS: BP 155/81
[2016-05-13] MEDS: glipiZIDE 5 MG (GLUCOTROL) TAB PO SCH ×2 (07:02→16:30)
[2016-05-13] MEDS: RT-ADVAIR HFA 45/21 MCG PER PUFF IH SCH ×2 (07:02→21:30)
[2016-05-13] MEDS: MULTIVIT W/MINERALS TAB (THERAGRAN M) PO SCH (07:02)
--- NOTE | 2016-05-13 08:06 | Progress Note (SOAP) ---
Subjective Subjective/Events-last exam carotid stenosis. Urine to be checked today for infection. Patient says she's improving. Patient able to get up and dressed himself. Objective Exam Vital Signs Date Time Temp Pulse Resp B/P Pulse Ox O2 Delivery O2 Flow Rate FiO2 05/13/16 07:02 93 05/13/16 06:00 96.8 81 16 155/81 95 Room Air 05/12/16 21:00 Room Air 05/12/16 20:35 95 05/12/16 17:54 97.8 68 18 116/70 96 Room Air 05/12/16 11:23 96 05/12/16 08:24 Room Air I & O 05/13/16 07:00 Intake Total 1725 ml Balance 1725 ml Capillary Refill : General Appearance: No Apparent Distress WD/WN HEENT: Normal ENT Inspection Neck: Full Range of Motion Normal Inspection Respiratory: Chest Non Tender Lungs Clear Normal Breath Sounds No Accessory Muscle Use No Respiratory Distress Cardiovascular: Regular Rate, Rhythm No Murmur Gastrointestinal: non tender soft Results Lab Laboratory Tests 05/12/16 11:12: Glucometer 191H 05/12/16 15:31: Glucometer 159H 05/12/16 21:29: Glucometer 189H 05/13/16 05:03: Glucometer 146H Microbiology 05/07/16 Urine Culture - Final, Complete Pseudomonas Aeruginosa Yeast Species Assessment/Plan Assessment/Plan Assess & Plan/Chief Complaint weakness. Carotid stenosis. Diabetes. History of renal failure. COPD. Asthma. Coronary artery disease History of infection. . 05/08/16. Weakness. Carotid stenosis. Diabetes. Renal insufficiency. History of infection. Asthma. . 05/09/16. Weakness. Carotid stenosis. Fluttering of heart. Diabetes. Renal insufficiency. CAD. Patient doing good. To monitor the flutter. . 05/12/16. GFR better at 50. Renal insufficiency. Carotid stenosis. Patient feeling better heart regular. Patient states occasionally heart flutters.. . 05/13/16. Patient feeling better. 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 Patient able to get up easily use the walker better Clinical Quality Measures DVT/VTE Risk/Contraindication: Risk Factor Score Per Nursin RFS Level Per Nursing on Admit: 4+=Very High VIELKA LUIS DO May 13, 2016 08:06
[2016-05-13] MEDS: meTOproloL SUCCINATE 50 MG (TOPROL XL) TAB PO SCH (08:40)
[2016-05-13] MEDS: CLOPIDOGREL 75 MG (PLAVIX) TABLET PO SCH (08:40)
[2016-05-13] MEDS: hydrALAZINE (APRESOLINE) 25 MG TAB PO SCH (08:41)
[2016-05-13] MEDS: LORazepam 1 MG (ATIVAN) TAB PO SCH (08:41)
[2016-05-13] MEDS: MONTELUKAST 10 MG (SINGULAIR) TAB PO SCH (08:41)
[2016-05-13] MEDS: amLODIPine 5 MG (NORVASC) TAB PO SCH (08:41)
[2016-05-13] MEDS: GABAPENTIN 100 MG (NEURONTIN) CAP PO SCH ×2 (08:41→20:15)
[2016-05-13] MEDS: LORATADINE (CLARITIN) 10 MG TAB PO SCH (08:41)
[2016-05-13] MEDS: ATORVASTATIN 10 MG (LIPITOR) TABLET PO SCH (08:41)
[2016-05-13] MEDS: VITAMIN D3 5,000 UNITS (CHOLECALCIFEROL ) CAPSULE PO SCH ×2 (08:41→20:15)
[2016-05-13] MEDS: ASPIRIN E.C. 81 MG (ECOTRIN) TAB PO SCH (08:41)
--- NOTE | 2016-05-13 09:10 | Physical Therapy Daily Note ---
PT Daily Note-Current Subjective Pt sitting in recliner upon arrival. Pt reports feeling pretty good and ready to discharge in a few days. Pt agrees to PT. Pain Numeric Pain Scale: 0-No Pain Location: No Pain Reported Mental Status Patient Orientation: Person, Place, Time, Situation Attachments: IV Transfers Functional [place] Measure 0=Not Assessed/NA 4=Minimal Assistance 1=Total Assistance 5=Supervision or Setup 2=Maximal Assistance 6=Modified [place] 3=Moderate Assistance 7=Complete IndependenceIRFPAI Quality Coding Scale 6 Independent with activity with or without an assistive device 5 Patient requires set up or clean up by helper. Patient completes activity by themselves 4 Supervision or touching assist (CGA). [place] provide cues , steadying assist 3 The helper provides less than half the effort to complete the activity 2 The helper provides more than half the effort to complete the activity 1 Dependent. The helper does all the effort to complete an activity 7 Patient refused to complete or attempt activity 9 The patient did not perform the activity before the current illness or injury 88 Not attempted due to Medical conditions or safety concerns Transfers (B, C, W/C) (FIM): 6 Scootin Sit to/from Stand: 6 Sit to Stand (QC): 6 Weight Bearing Weight Bearing Restriction: Full Weight Bearing Location Restriction: LE Bilateral Gait Training Does the Patient Walk?: Yes Gait (FIM): 5 Distance (FIM): 3=150 ft Distance: 175' Walk 10 feet (QC): 6 Walk 50 ft with 2 Turns(QC): 5 Walk 150 ft (QC): 5 Gait Level of Assist: 5 Gait Persons Needed: 1 Gait Assistive Device: FWW Pt's blade is a little slow but steady with no LOB. Wheelchair Training Does the Pt Use a Wheelchair?: No Stair Training Stair Training: Handrails/: 2 handrails Stairs (FIM): 5 #of Steps: 12 1 Step (curb) (QC): 5 4 Steps (QC): 5 12 Steps (QC): 5 Stairs: Pattern: Step to Level of Assist: 5 Exercises Standing: Hamstring curls, Heel/toe raises, 3 way Ex=Flex, Abd, Ext, Mini squats, Step-ups, Weight shifts Standing Reps: 20 NuStep Minutes: 10 NuStep Workload: 4 Treatments Pt [place] [facility] [place] FWW. Pt ambulates using FWW at SBA for safety with balance. Pt completes 12 stairs as well as Standing EX at //bars for balance practice, strengthening and activity tolerance. Pt also uses NuStep for 10m. Pt returns to sitting in recliner with all needs met at end of tx. Assessment Current Status: Good Progress Pt tolerates tx well and is making improvements with balance, activity tolerance and safety. 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 Time Frame: May 20, 2016 Transfers (B,C,W/C) (FIM): 6 Sit to Lying (QC): 6 Lying-Sitting on Side/Bed(QC): 6 Sit to Stand (QC): 6 Rollin Roll Left to Right (QC): 6 Chair/Mqy-df-Pjncf Xfer(QC): 6 Car Transfer (QC): 6 Does the Patient Walk: Yes Gait (FIM): 6 Gait distance (FIM): 3=150 ft Distance: 250' Walk 10 feet (QC): 6 Walk 10ft-Uneven Surface(QC): 6 Walk 50ft with 2 Turns (QC): 6 Walk 150 ft (QC): 6 Gait Level of Assist: 6 Gait Assistive Device: None, FWW Stairs (FIM): 5 (household exception) # of Steps: 4 1 Step (curb) (QC): 6 4 Steps (QC): 5 12 Steps (QC): 9 Stairs Level Of Assist: 5 Picking up an Object (QC): 6 PT Plan Problem List Problem List: Activity Tolerance, Safety, Balance, Gait Treatment/Plan Treatment Plan: Continue Plan of Care Treatment Plan: Bed Mobility, Education, Functional Activity [place]ola, Functional Strength, Gait, Safety, Therapeutic Exercise, Transfers Treatment Duration: May 20, 2016 Visits Per Week: 10-11 Minutes/Day (M-F): 60-90 Minutes/Day (Sat/Cuevas): PRN Safety Risks/Education Patient Education: Gait Training, Transfer Techniques, Steps, Correct Positioning, Safety Issues Teaching Recipient: Patient Teaching Methods: Discussion Response to Teaching: Verbalize Understanding Time/GCodes Time In: 815 Time Out: 915 Total Billed Treatment Time: 60 Total Billed Treatment visit, GT (15m), EX X2 (30m) & FA (15m) FRANCIS JIN LEASING COORDINATOR May 13, 2016 09:10
[2016-05-13] MEDS ORDERED: MILK OF MAGNESIA 400 MG/5 ML 30 ML UDC PO PRN (09:30)
--- NOTE | 2016-05-13 09:32 | PM & R (SOAP) Progress Note ---
Subjective Subjective/Events-last exam Patient was seen in her room this AM C/O constipation Discussed case with RN See orders.Patient modified Independent for transfers Objective Exam Last Set of Vital Signs Vital Signs Date Time Temp Pulse Resp B/P Pulse Ox O2 Delivery O2 Flow Rate FiO2 05/13/16 09:00 Room Air 05/13/16 07:02 93 05/13/16 06:00 96.8 81 16 155/81 Capillary Refill : I&O Intake and Output 05/13/16 00:00 Intake Total 1935 ml Balance 1935 ml Intake Oral 1625 ml IV Total 310 ml # Voids 8 General: Alert, Oriented X3, Cooperative, No Acute Distress HEENT: Atraumatic, PERRLA, EOMI, Other (mild rt labial droop Hyperemic mucosa) Neck: Supple, No JVD Lungs: Clear to Auscultation Heart: Regular Rate Abdomen: Normal Bowel Sounds, Soft, No Tenderness Extremities: No Edema Neuro: Other (generalized weakness) Results Lab Laboratory Tests 05/10/16 10:58: Glucometer 166H 05/10/16 16:07: Glucometer 179H 05/10/16 21:26: Glucometer 213H 05/11/16 04:56: Glucometer 162H 05/11/16 11:00: Glucometer 182H 05/11/16 15:38: Glucometer 186H 05/11/16 20:11: Glucometer 266H 05/12/16 05:14: Alanine Aminotransferase (ALT/SGPT) 41, Albumin 3.5, Alkaline Phosphatase 113, Anion Gap 11, Aspartate Amino Transf (AST/SGOT) 31, BUN/Creatinine Ratio 13, Basophils # (Auto) 0.1, Basophils (%) (Auto) 1, Blood Urea Nitrogen 14, Calcium Level 9.0, Carbon Dioxide Level 23, Chloride Level 106, Creatinine 1.10, Eosinophils # (Auto) 0.3, Eosinophils (%) (Auto) 4, Estimat Glomerular Filtration Rate 50, Glucose Level 163H, Hematocrit 30L, Hemoglobin 9.1L, Lymphocytes # (Auto) 1.5, Lymphocytes (%) (Auto) 18, Mean Corpuscular Hemoglobin 27, Mean Corpuscular Hemoglobin Concent 30L, Mean Corpuscular Volume 90, Mean Platelet Volume 8.9, Monocytes # (Auto) 0.7, Monocytes (%) (Auto) 8, Neutrophils # (Auto) 5.9, Neutrophils (%) (Auto) 70, Platelet Count 252, Potassium Level 4.1, Red Blood Count 3.33L, Red Cell Distribution Width 16.0H, Sodium Level 140, Total Bilirubin 0.4, Total Protein 6.1L, White Blood Count 9.4 05/12/16 11:12: Glucometer 191H 05/12/16 15:31: Glucometer 159H 05/12/16 21:29: Glucometer 189H 05/13/16 05:03: Glucometer 146H Microbiology 05/07/16 Urine Culture - Final, Complete Pseudomonas Aeruginosa Yeast Species Assessment/Plan Assessment S/P RT CEA at OSH for Carotid artery d. DM better controlled Insomnia-melatonin resumed Mild dysarthria-ST addressing Herpes Simplex-antiviral ordered Discussed case with DR Lemos today who IS PCP-He made courtesy visit today Appreciate Dr Carvajal consult and orders OA both knees s/p BTKRS remote Constipation meds adjusted Plan Continue PT/OT/ST Next Team Conference to be held tomorrow 05/14/[address] carvajal notes and orders. Current labs appreciated Meds added for constipation See orders WHIT ARRINGTON MD May 13, 2016 09:32
[2016-05-13 09:51] LABS: BILIRUBIN,URINE NEGATIVE (NEGATIVE); KETONES,URINE NEGATIVE (NEGATIVE); LEUKOCYTE ESTERASE ,URINE 2+ (NEGATIVE); NITRITE,URINE NEGATIVE (NEGATIVE); PH,URINE 6 (5-9); PROTEIN,URINE NEGATIVE (NEGATIVE); UROBILINOGEN,URINE NORMAL (NORMAL)
[2016-05-13 10:05] LABS: YEAST,URINE FEW /HPF
--- NOTE | 2016-05-13 10:49 | Occupational Ther Daily Note ---
OT Current Status-Daily Note Subjective Pt sitting in chair, agrees to treatment. Pt has no c/o pain. Mental Status/Objective Functional [place] Measure 0=Not Assessed/NA 4=Minimal Assistance 1=Total Assistance 5=Supervision or Setup 2=Maximal Assistance 6=Modified [place] 3=Moderate Assistance 7=Complete [place] ADL-Treatment Pt declined shower today, states she had a good shower yesterday. Pt requests to "freshen up." Pt sponge bathed upper body with set up while seated in chair. Doff/don pullover shirt with modified independence. Pt transferred to toilet with modified independence. Pt able to complete toileting hygiene and clothing management with modified independence. Stood at sink to wash hands without assistance. Functional [place] Measure 0=Not Assessed/NA 4=Minimal Assistance 1=Total Assistance 5=Supervision or Setup 2=Maximal Assistance 6=Modified [place] 3=Moderate Assistance 7=Complete IndependenceIRFPAI Quality Coding Scale 6 Independent with activity with or without an assistive device 5 Patient requires set up or clean up by helper. Patient completes activity by themselves 4 Supervision or touching assist (CGA). [place] provide cues , steadying assist 3 The helper provides less than half the effort to complete the activity 2 The helper provides more than half the effort to complete the activity 1 Dependent. The helper does all the effort to complete an activity 7 Patient refused to complete or attempt activity 9 The patient did not perform the activity before the current illness or injury 88 Not attempted due to Medical conditions or safety concerns Upper Body (FIM): 6 Upper Body Dressing (QC): 6 Toileting (FIM): 6 Toilet/Commode Transfer (FIM): 6 Other Treatment Gait to therapy gym with FWW, no LOB noted. Arm bike x15 minutes to increase overall strength and activity tolerance. Pt completed task with slow pace, one rest break taken. Bilateral UE exercises completed to increase strength needed for ADLs and transfers. Pt performed shoulder flexion, forward press, biceps curls, and wrist flex/ext x20 reps with dowel pedro. Rest breaks between exercises. Pt completed tabletop peg activity with bilateral hands with 1# wrist weights in place to increase strength for functional tasks. Arm arc activity with 1# weights in place to increase strength. Pt required one brief rest break during activity. Pt completed fine motor task with nuts and bolts to increase coordination/manipulation skills. Putty activity with bilateral hands to increase strength. Pt then removed small beads from putty with increased time. Pt returned to room, transferred to chair with modified independence. Pt sitting in chair with needs met after session. OT Short Term Goals Short Term Goals Transfers (B,C,W/C) (FIM): 5 1=Demonstrate adherence to instructed precautions during ADL tasks. 2=Patient will verbalize/demonstrate understanding of assistive devices/ modifications for ADL. 3=Patient will improve strength/tolerance for activity to enable patient to perform ADL's. OT Assisted Goals Motorboat Operator Goals Time Frame: May 20, 2016 Eating (FIM): 6 Eating (QC): 6 Groomin Oral Hygiene (QC): 6 Bathing(FIM): 6 Shower/Bathe Self (QC): 6 Upper Body Dressing(FIM): 6 Upper Body Dressing (QC): 6 Lower Body Dressing(FIM): 6 Lower Body Dressing (QC): 6 On/Off Footwear (QC): 6 Toileting(FIM): 6 Toileting Hygiene (QC): 6 Toilet/Commode Transfer(FIM): 6 Toilet/Commode Transfer (QC): 6 Shower Transfer(FIM): 6 Comprehension(FIM): 6 (MET) Expression (FIM): 5 (MET) Social Interaction(FIM): 6 (MET) Problem Solving(FIM): 6 (MET) Memory(FIM): 6 (MET) 1=Demonstrate adherence to instructed precautions during ADL tasks. 2=Patient will verbalize/demonstrate understanding of assistive devices/ modifications for ADL. 3=Patient will improve strength/tolerance for activity to enable patient to perform ADL's. OT Education/Plan Problem List/Assessment Pt would benefit from skilled OT to increase her independence in basic self care to allow her to return to her home to live safely with nearby family support. Discharge Recommendations Plan/Recommendations: Continue POC Treatment Plan/Plan of Care Patient would benefit from OT for education, treatment and training to promote independence in ADL's, mobility, safety and/or upper extremity function for ADL' s. Plan of Care: ADL Retraining, Functional Mobility, Group Exercise/Act as Ind ( education, exercise, activity tolerance, functional activities), UE Funct Exercise/Act, UE Neuromus Re-Ed/Coord Treatment Duration: May 20, 2016 Visits Per Week: 10-11 Minutes/Day (M-F): 75-90 Minutes/Day (Sat/Cuevas): PRN Agreement: Yes Rehab Potential: Good Time/GCodes Start Time: 09:15 Stop Time: 10:45 Total Time Billed (hr/min): 90 Billed Treatment Time 1 visit, ADL(20minutes), EXx5(70minutes) SHARON GALLAGHER OT May 13, 2016 10:49
--- NOTE | 2016-05-13 14:08 | Physical Therapy Daily Note ---
PT Daily Note-Current Subjective Pt asleep in recliner with feet raised upon arrival. Pt agrees to PT. Pain Numeric Pain Scale: 0-No Pain Location: No Pain Reported Mental Status Patient Orientation: Person, Place, Situation Transfers Functional [place] Measure 0=Not Assessed/NA 4=Minimal Assistance 1=Total Assistance 5=Supervision or Setup 2=Maximal Assistance 6=Modified [place] 3=Moderate Assistance 7=Complete IndependenceIRFPAI Quality Coding Scale 6 Independent with activity with or without an assistive device 5 Patient requires set up or clean up by helper. Patient completes activity by themselves 4 Supervision or touching assist (CGA). [place] provide cues , steadying assist 3 The helper provides less than half the effort to complete the activity 2 The helper provides more than half the effort to complete the activity 1 Dependent. The helper does all the effort to complete an activity 7 Patient refused to complete or attempt activity 9 The patient did not perform the activity before the current illness or injury 88 Not attempted due to Medical conditions or safety concerns Transfers (B, C, W/C) (FIM): 6 Scootin Sit to/from Stand: 6 Sit to Lying (QC): 6 Sit to Stand (QC): 6 Chair/Jmq-yq-Snjdo Xfer(QC): 6 Bed to/from Chair: 6 Weight Bearing Weight Bearing Restriction: Full Weight Bearing Location Restriction: LE Bilateral Gait Training Does the Patient Walk?: Yes Gait (FIM): 6 Distance (FIM): 3=150 ft Distance: 250' Walk 10 feet (QC): 6 Walk 50 ft with 2 Turns(QC): 6 Walk 150 ft (QC): 6 Gait Level of Assist: 6 Gait Persons Needed: 1 Gait Assistive Device: FWW Pt walks with slow but steady blade but no LOB. Wheelchair Training Does the Pt Use a Wheelchair?: No Exercises NuStep Minutes: 10 NuStep Workload: 5 Treatments Pt transfers at Mod I using FWW and ambulates using FWW at Mod I. Pt uses restroom before leaving room for tx. Pt uses NuStep in Therapy Gym for activity tolerance and strengthening. Pt returns to room to rest supine in bed with all needs met at end of tx. Assessment Current Status: Good Progress Pt has made improvements with independence and safety of transfers and mobility. PT Short Term Goals Short Term Goals Time Frame: Apr 15, 2016 Transfers (B,C,W/C) (FIM): 5 Gait (FIM): 5 Distance (FIM): 3=150 ft Gait Distance Comment: 200' Gait Level of Assist: 5 Gait Assistive Device: FWW PT [employer] Goals [employer] Goals PT Jail Goals Time Frame: May 20, 2016 Transfers (B,C,W/C) (FIM): 6 Sit to Lying (QC): 6 Lying-Sitting on Side/Bed(QC): 6 Sit to Stand (QC): 6 Rollin Roll Left to Right (QC): 6 Chair/[id number]-Igwcx Xfer(QC): 6 Car Transfer (QC): 6 Does the Patient Walk: Yes Gait (FIM): 6 Gait distance (FIM): 3=150 ft Distance: 250' Walk 10 feet (QC): 6 Walk 10ft-Uneven Surface(QC): 6 Walk 50ft with 2 Turns (QC): 6 Walk 150 ft (QC): 6 Gait Level of Assist: 6 Gait Assistive Device: None, FWW Stairs (FIM): 5 (household exception) # of Steps: 4 1 Step (curb) (QC): 6 4 Steps (QC): 5 12 Steps (QC): 9 Stairs Level Of Assist: 5 Picking up an Object (QC): 6 PT Plan Problem List Problem List: Activity Tolerance, Functional Strength, Gait Treatment/Plan Treatment Plan: Continue Plan of Care Treatment Plan: Bed Mobility, Education, Functional Activity Lola, Functional Strength, Gait, Safety, Therapeutic Exercise, Transfers Treatment Duration: May 20, 2016 Visits Per Week: 10-11 Minutes/Day (M-F): 60-90 Minutes/Day (Sat/Cuevas): PRN Safety Risks/Education Patient Education: Gait Training, Transfer Techniques, Correct Positioning, Safety Issues Teaching Recipient: Patient Teaching Methods: Discussion Response to Teaching: Verbalize Understanding Time/GCodes Time In: 1300 Time Out: 1330 Total Billed Treatment Time: 30 Total Billed Treatment visit, Ex (15m) & GT (15m) FRANCIS JIN PTA May 13, 2016 14:08
[2016-05-13] MEDS: fluCOnazole (DIFLUCAN) 100 MG TAB PO SCH (16:30)
[2016-05-13 17:55] VITALS: BP 109/68
[2016-05-13] MEDS: AMITRIPTYLINE 50 MG (ELAVIL) TAB PO SCH (20:15)
[2016-05-13] MEDS: MELATONIN 3 MG TABLET PO SCH (20:15)
[2016-05-13] MEDS: SENNA W/DOCUSATE (SENOKOT S) TABLET PO SCH (20:15)
[2016-05-13] MEDS: inSUlin DETERMIR 1 UNIT/0.01 ML (LEVEMIR) CHARGE PER UNIT SQ SCH (20:16)
[2016-05-13] MEDS: FLUTICASONE NASAL SPRAY (FLONASE) 16 GM BTL NS SCH (20:17)
[2016-05-14] MEDS: CATHETER FLUSH 10 ML SYR IV SCH ×3 (04:28→22:16)
[2016-05-14] MEDS: MEROPENEM 500 MG in NS (IVPB) 100 ML IV SCH ×4 (04:28→22:16)
[2016-05-14] MEDS: inSUlin ASPART (NovoLOG) 1 UNIT/0.01 ML (CHARGE PER UNIT) SC SCH ×4 (05:43→20:15)
[2016-05-14] MEDS: MULTIVIT W/MINERALS TAB (THERAGRAN M) PO SCH (05:44)
[2016-05-14] MEDS: LEVOTHYROXINE 100 MCG (LEVOTHROID) TAB PO SCH (05:44)
[2016-05-14] MEDS: glipiZIDE 5 MG (GLUCOTROL) TAB PO SCH ×2 (05:44→17:25)
[2016-05-14] MEDS: POLYETHYLENE GLYCOL 17 GM (MIRALAX) PACK PO PRN ×2 (05:45→20:13)
[2016-05-14 06:00] VITALS: BP 109/65
[2016-05-14 06:57] LABS: ANION GAP 10 MMOL/L (5-14); BLOOD UREA NITROGEN 14 MG/DL (7-18); BUN/CREATININE RATIO 16; CALCIUM 8.2 MG/DL (8.5-10.1); CARBON DIOXIDE 23 MMOL/L (21-32); CHLORIDE 109 MMOL/L (98-107); CREATININE SERUM 0.88 MG/DL (0.60-1.30); GFR ESTIMATED > 60; GLUCOSE 125 MG/DL (70-105); POTASSIUM 3.9 MMOL/L (3.6-5.0); SODIUM 142 MMOL/L (135-145)
[2016-05-14] MEDS: RT-ADVAIR HFA 45/21 MCG PER PUFF IH SCH ×2 (07:47→20:42)
--- NOTE | 2016-05-14 08:12 | Progress Note (SOAP) ---
Subjective Subjective/Events-last exam carotid stenosis. Recent pneumonia. Patient coughing. CBC and chest x-ray ordered. Patient improving Objective Exam Vital Signs Date Time Temp Pulse Resp B/P Pulse Ox O2 Delivery O2 Flow Rate FiO2 05/14/16 06:00 98.6 79 22 109/65 94 Room Air 05/13/16 21:31 96 05/13/16 20:00 Room Air 05/13/16 17:55 97.5 71 16 109/68 96 05/13/16 09:00 Room Air I & O 05/14/16 07:00 Intake Total 1340 ml Output Total 150 ml Balance 1190 ml Capillary Refill : General Appearance: No Apparent Distress WD/WN HEENT: Normal ENT Inspection Neck: Full Range of Motion Normal Inspection Respiratory: Chest Non Tender No Accessory Muscle Use No Respiratory Distress Other (ooff) Cardiovascular: Regular Rate, Rhythm No Murmur Results Lab Laboratory Tests 05/13/16 10:33: Glucometer 201H 05/13/16 15:33: Glucometer 169H 05/13/16 20:09: Glucometer 166H 05/14/16 05:15: Glucometer 127H 05/14/16 05:16: Anion Gap 10, BUN/Creatinine Ratio 16, Blood Urea Nitrogen 14, Calcium Level 8.2L, Carbon Dioxide Level 23, Chloride Level 109H, Creatinine 0.88, Estimat Glomerular Filtration Rate > 60, Glucose Level 125H, Potassium Level 3.9, Sodium Level 142 Microbiology 05/13/16 Urine Culture - Preliminary, Resulted NO GROWTH Assessment/Plan Assessment/Plan Assess & Plan/Chief Complaint weakness. Carotid stenosis. Diabetes. History of renal failure. COPD. Asthma. Coronary artery disease History of infection. . 05/08/16. Weakness. Carotid stenosis. Diabetes. Renal insufficiency. History of infection. Asthma. . 05/09/16. Weakness. Carotid stenosis. Fluttering of heart. Diabetes. Renal insufficiency. CAD. Patient doing good. To monitor the flutter. . 05/12/16. GFR better at 50. Renal insufficiency. Carotid stenosis. Patient feeling better heart regular. Patient states occasionally heart flutters.. . 05/13/16. Patient feeling better. 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 Patient able to get up easily use the walker better. . 05/14/16. Weakness. Carotid stenosis. History of renal failure. COPD. History of recent pneumonia. Patient starting to cough. Urine culture shows no growth preliminary report Clinical Quality Measures DVT/VTE Risk/Contraindication: Risk Factor Score Per Nursin RFS Level Per Nursing on Admit: 4+=Very High VIELKA LUIS DO May 14, 2016 08:12
[2016-05-14 08:23] LABS: BASOPHILS # (AUTO) 0.1 10^3/uL (0.0-0.1); BASOPHILS % (AUTO) 1 % (0-10); EOSINOPHILS # (AUTO) 0.3 10^3/uL (0.0-0.3); EOSINOPHILS % (AUTO) 4 % (0-10); LYMPHOCYTES # (AUTO) 1.7 X 10^3 (1.0-4.0); LYMPHOCYTES % (AUTO) 22 % (12-44); MEAN CORPUSCULAR HEMOGLOBIN 29 PG (25-34); MEAN CORPUSCULAR HGB CONC 31 G/DL (32-36); MEAN CORPUSCULAR VOLUME 92 FL (80-99); MEAN PLATELET VOLUME 10.3 FL (7.4-10.4); MONOCYTES # (AUTO) 0.6 X 10^3 (0.0-1.0); MONOCYTES % (AUTO) 8 % (0-12); NEUTROPHILS # (AUTO) 5.2 X 10^3 (1.8-7.8); NEUTROPHILS % (AUTO) 66 % (42-75); PLATELET COUNT 207 10^3/uL (130-400); RED BLOOD COUNT 3.03 10^6/uL (4.35-5.85); RED CELL DISTRIBUTION WIDTH 17.5 % (10.0-14.5); WHITE BLOOD COUNT 7.8 10^3/uL (4.3-11.0)
--- NOTE | 2016-05-14 09:04 | Physical Therapy Daily Note ---
PT Daily Note-Current Subjective Patient in recliner pre tx, agrees to PT, pleasant and cooperative, no complaints of pain. Patient is scheduled to discharge tomorrow. Appearance Patient in bathroom post tx, she is mod I in her room. Mental Status Patient Orientation: Normal For Age Transfers Functional [place] Measure 0=Not Assessed/NA 4=Minimal Assistance 1=Total Assistance 5=Supervision or Setup 2=Maximal Assistance 6=Modified [place] 3=Moderate Assistance 7=Complete IndependenceIRFPAI Quality Coding Scale 6 Independent with activity with or without an assistive device 5 Patient requires set up or clean up by helper. Patient completes activity by themselves 4 Supervision or touching assist (CGA). [place] provide cues , steadying assist 3 The helper provides less than half the effort to complete the activity 2 The helper provides more than half the effort to complete the activity 1 Dependent. The helper does all the effort to complete an activity 7 Patient refused to complete or attempt activity 9 The patient did not perform the activity before the current illness or injury 88 Not attempted due to Medical conditions or safety concerns Transfers (B, C, W/C) (FIM): 6 Scootin Rollin Roll Left to Right (QC): 6 Supine to/from Sit: 6 Sit to/from Stand: 6 Sit to Lying (QC): 6 Sit to Stand (QC): 6 Appropriate safety precautions and hand placement. Gait Training Gait (FIM): 6 Distance: 300' Walk 10 feet (QC): 6 Walk 50 ft with 2 Turns(QC): 6 Walk 150 ft (QC): 6 Walking 10ft/uneven surface-QC: 6 Gait Assistive Device: FWW Slow ambulation but steady, patient ambulates slightly pigeon toed. Wheelchair Training Does the Pt Use a Wheelchair?: No Stair Training Stair Training: Handrails/: 2 handrails Stairs (FIM): 6 #of Steps: 12 1 Step (curb) (QC): 6 4 Steps (QC): 6 12 Steps (QC): 6 Stairs: Pattern: Step to Balance Picking up an Object (QC): 6 Exercises Standing: Hip Abduction, Hamstring curls, Heel/toe raises, Marching, Mini squats Standing Reps: 20 NuStep Minutes: 15 NuStep Workload: 5 Treatments functional strengthening, stair training, bed mobility and transfers, ambulation Assessment Current Status: Fair Progress good improvement with mobility, no pain, patient is leaving tomorrow PT Short Term Goals Short Term Goals Time Frame: Apr 15, 2016 Transfers (B,C,W/C) (FIM): 5 Gait (FIM): 5 Distance (FIM): 3=150 ft Gait Distance Comment: 200' Gait Level of Assist: 5 Gait Assistive Device: FWW PT Jail Goals Jail Goals PT Computer Training Specialist Goals Time Frame: May 20, 2016 Transfers (B,C,W/C) (FIM): 6 (et) Sit to Lying (QC): 6 (met) Lying-Sitting on Side/Bed(QC): 6 (met) Sit to Stand (QC): 6 (met) Rollin (met) Roll Left to Right (QC): 6 (met) Chair/Ujr-oz-Jbxpv Xfer(QC): 6 Car Transfer (QC): 6 Does the Patient Walk: Yes Gait (FIM): 6 (mt) Gait distance (FIM): 3=150 ft Distance: 250' Walk 10 feet (QC): 6 (met) Walk 10ft-Uneven Surface(QC): 6 (met) Walk 50ft with 2 Turns (QC): 6 (met) Walk 150 ft (QC): 6 (met) Gait Level of Assist: 6 Gait Assistive Device: None, FWW Stairs (FIM): 5 (met) # of Steps: 4 1 Step (curb) (QC): 6 (met) 4 Steps (QC): 5 (metmet) 12 Steps (QC): 9 (met) Stairs Level Of Assist: 5 Picking up an Object (QC): 6 (met) PT Plan Problem List Problem List: Activity Tolerance, Functional Strength, Safety, Balance, Gait, Transfer Treatment/Plan Treatment Plan: Continue Plan of Care Treatment Plan: Bed Mobility, Education, Functional Activity [place], Functional Strength, Gait, Safety, Therapeutic Exercise, Transfers Treatment Duration: May 20, 2016 Visits Per Week: 10-11 Minutes/Day (M-F): 60-90 Minutes/Day (Sat/Cuevas): PRN Safety Risks/Education Patient Education: Gait Training, Transfer Techniques, Steps, Correct Positioning, Safety Issues Teaching Recipient: Patient Teaching Methods: Demonstration, Discussion Response to Teaching: Reinforcement Needed Time/GCodes Time In: 800 Time Out: 900 Total Billed Treatment Time: 60 Total Billed Treatment 1 visit GT 30 min EX 30 min BRENT MORRIS PT May 14, 2016 09:04
[2016-05-14] MEDS: meTOproloL SUCCINATE 50 MG (TOPROL XL) TAB PO SCH (09:07)
[2016-05-14] MEDS: ASPIRIN E.C. 81 MG (ECOTRIN) TAB PO SCH (09:07)
[2016-05-14] MEDS: SENNA W/DOCUSATE (SENOKOT S) TABLET PO SCH ×2 (09:07→20:14)
[2016-05-14] MEDS: VITAMIN D3 5,000 UNITS (CHOLECALCIFEROL ) CAPSULE PO SCH ×2 (09:07→20:14)
[2016-05-14] MEDS: LORazepam 1 MG (ATIVAN) TAB PO SCH (09:07)
[2016-05-14] MEDS: hydrALAZINE (APRESOLINE) 25 MG TAB PO SCH (09:07)
[2016-05-14] MEDS: LORATADINE (CLARITIN) 10 MG TAB PO SCH (09:07)
[2016-05-14] MEDS: CLOPIDOGREL 75 MG (PLAVIX) TABLET PO SCH (09:07)
[2016-05-14] MEDS: GABAPENTIN 100 MG (NEURONTIN) CAP PO SCH ×2 (09:07→20:14)
[2016-05-14] MEDS: ATORVASTATIN 10 MG (LIPITOR) TABLET PO SCH (09:07)
[2016-05-14] MEDS: MONTELUKAST 10 MG (SINGULAIR) TAB PO SCH (09:08)
[2016-05-14] MEDS: amLODIPine 5 MG (NORVASC) TAB PO SCH (09:08)
--- NOTE | 2016-05-14 10:40 | Occupational Ther Daily Note ---
OT Current Status-Daily Note Subjective No pain reported. Appearance Pt. is up in chair. Agreeable to shower. Mental Status/Objective Patient Orientation: Person, Place, Time, Situation Functional [place] Measure 0=Not Assessed/NA 4=Minimal Assistance 1=Total Assistance 5=Supervision or Setup 2=Maximal Assistance 6=Modified [place] 3=Moderate Assistance 7=Complete [place] ADL-Treatment Functional [place] Measure 0=Not Assessed/NA 4=Minimal Assistance 1=Total Assistance 5=Supervision or Setup 2=Maximal Assistance 6=Modified [place] 3=Moderate Assistance 7=Complete IndependenceIRFPAI Quality Coding Scale 6 Independent with activity with or without an assistive device 5 Patient requires set up or clean up by helper. Patient completes activity by themselves 4 Supervision or touching assist (CGA). [place] provide cues , steadying assist 3 The helper provides less than half the effort to complete the activity 2 The helper provides more than half the effort to complete the activity 1 Dependent. The helper does all the effort to complete an activity 7 Patient refused to complete or attempt activity 9 The patient did not perform the activity before the current illness or injury 88 Not attempted due to Medical conditions or safety concerns Eating (FIM): 6 Eating (QC): 6 Grooming (FIM): 6 Bathing (FIM): 6 Shower/Bathe Self (QC): 6 Upper Body (FIM): 6 Upper Body Dressing (QC): 6 Lower Body Dressing (FIM): 6 Lower Body Dressing (QC): 6 On/Off Footwear (QC): 6 Toileting (FIM): 6 Toileting Hygiene (QC): 6 Transfers (B, C, W/C) (FIM): 6 Toilet/Commode Transfer (FIM): 6 Toilet Transfer (QC): 6 Shower Transfer(FIM): 6 Other Treatment Pt. is up ad dell. Has already gathered her clothing previous to OT coming in room. Pt. is able to take herself to the shower, complete shower and dressing, and ambulate back out into the room. Pt. is able to complete all ADLs with Mod I, using walker, shower bench, and grab bars. No difficulty noted this date. Pt. states that she really hopes she can go home tomorrow. Education OT Patient Education: Modified ADL techniques, Progress toward Goal/Update tx plan, Purpose of tx/functional activities, Reviewed precautions, Rehab process, Transfer techniques Teaching Recipient: Patient Teaching Methods: Demonstration, Discussion Response to Teaching: Verbalize Understanding, Return Demonstration OT Short Term Goals Short Term Goals Transfers (B,C,W/C) (FIM): 5 1=Demonstrate adherence to instructed precautions during ADL tasks. 2=Patient will verbalize/demonstrate understanding of assistive devices/ modifications for ADL. 3=Patient will improve strength/tolerance for activity to enable patient to perform ADL's. OT [facility] Goals Skein Drier Goals Time Frame: May 20, 2016 Eating (FIM): 6 Eating (QC): 6 Groomin Oral Hygiene (QC): 6 Bathing(FIM): 6 Shower/Bathe Self (QC): 6 Upper Body Dressing(FIM): 6 Upper Body Dressing (QC): 6 Lower Body Dressing(FIM): 6 Lower Body Dressing (QC): 6 On/Off Footwear (QC): 6 Toileting(FIM): 6 Toileting Hygiene (QC): 6 Toilet/Commode Transfer(FIM): 6 Toilet/Commode Transfer (QC): 6 Shower Transfer(FIM): 6 Comprehension(FIM): 6 (MET) Expression (FIM): 5 (MET) Social Interaction(FIM): 6 (MET) Problem Solving(FIM): 6 (MET) Memory(FIM): 6 (MET) 1=Demonstrate adherence to instructed precautions during ADL tasks. 2=Patient will verbalize/demonstrate understanding of assistive devices/ modifications for ADL. 3=Patient will improve strength/tolerance for activity to enable patient to perform ADL's. OT Education/Plan Problem List/Assessment Assessment: No Skilled OT Needs ID'd Discharge Recommendations Plan/Recommendations: Continue POC Therapy D/C Recommendations: Home w/ Family Support Treatment Plan/Plan of Care Treatment,Training & Education: Yes Patient would benefit from OT for education, treatment and training to promote independence in ADL's, mobility, safety and/or upper extremity function for ADL' s. Plan of Care: ADL Retraining, Functional Mobility, Group Exercise/Act as Ind ( education, exercise, activity tolerance, functional activities), UE Funct Exercise/Act, UE Neuromus Re-Ed/Coord Treatment Duration: May 20, 2016 Visits Per Week: 10-11 Minutes/Day (M-F): 75-90 Minutes/Day (Sat/Cuevas): PRN Agreement: Yes Rehab Potential: Good Time/GCodes Start Time: 09:15 Stop Time: 10:15 Total Time Billed (hr/min): 60 Billed Treatment Time 1, ADL x 4 HENRIETTA ROSENBERG OT May 14, 2016 10:40
--- NOTE | 2016-05-14 11:20 | Diagnostic Imaging Report ---
INDICATION: Followup pneumonia. COMPARISON: 04/16/2016 FINDINGS: Frontal and lateral radiographic views of the chest were obtained. Cardiac silhouette and pulmonary vasculature are stable. Evaluation of the lung garcia demonstrates interval development of patchy opacities in the lateral left midlung field and right upper lobe. There is no large effusion or pneumothorax. Bony structures show no gross acute abnormalities. IMPRESSION: 1. Interval development of bilateral patchy airspace opacities concerning for pneumonia. Followup to resolution is recommended. Dictated by: Dictated on workstation # [id number]
[2016-05-14] MEDS: LEVOFLOXACIN 750 MG TAB (LEVAQUIN) PO SCH (14:23)
--- NOTE | 2016-05-14 14:23 | Therapy Group Daily Note ---
Therapy Daily Group Note Patient Education Topic Exercises (Benefits of Stretching) Exercises LE Seated Exercise, UE Exercise Other/Notes Pt ambulated to OT/PT group with FWW. Group consisted of introductions (name, place, own relaxation), socialization, education on stretching, UE/LE seated exercises, indoor signs/environmental Bingo. Pt actively participated in group. Pt was able to contribute to discussions each topic. Pt interacted with each peer appropriately. Completed exercises and stretches without difficulty. Pt was able to manipulate bingo chips, match pictures and follow directions throughout activities. After group, pt ambulated back to room with FWW by self. Call light/phone in reach. All needs met in room. Start Time: 13:00 Stop Time: 14:05 Total Billed Treatment Time: 65 Total Billed Treatment 1-GRP IVETH COSTELLO May 14, 2016 14:23
[2016-05-14] MEDS: fluCOnazole (DIFLUCAN) 100 MG TAB PO SCH (15:23)
[2016-05-14 18:00] VITALS: BP 112/75
[2016-05-14] MEDS: inSUlin DETERMIR 1 UNIT/0.01 ML (LEVEMIR) CHARGE PER UNIT SQ SCH (20:13)
[2016-05-14] MEDS: FLUTICASONE NASAL SPRAY (FLONASE) 16 GM BTL NS SCH (20:14)
[2016-05-14] MEDS: MELATONIN 3 MG TABLET PO SCH (20:14)
[2016-05-14] MEDS: AMITRIPTYLINE 50 MG (ELAVIL) TAB PO SCH (20:14)
--- NOTE | 2016-05-14 20:54 | PM & R (SOAP) Progress Note ---
Subjective Subjective/Events-last exam Patient was seen in HER room earlier today Appreciate Dr Carvajal note and orders CXR appreciated,Patient progressing well with therapes.Metformin on hold Objective Exam Last Set of Vital Signs Vital Signs Date Time Temp Pulse Resp B/P Pulse Ox O2 Delivery O2 Flow Rate FiO2 05/14/16 20:42 96 05/14/16 18:00 97.5 64 20 112/75 Room Air Capillary Refill : I&O Intake and Output 05/14/16 00:00 Intake Total 1050 ml Output Total 150 ml Balance 900 ml Intake Oral 850 ml IV Total 200 ml Output Urine Total 150 ml # Voids 7 General: Alert, Oriented X3, Cooperative, No Acute Distress HEENT: Atraumatic, PERRLA, EOMI, Other (mild rt labial droop Hyperemic mucosa) Neck: Supple, No JVD Lungs: Clear to Auscultation Heart: Regular Rate Abdomen: Normal Bowel Sounds, Soft, No Tenderness Extremities: No Edema Neuro: Other (generalized weakness) Results Lab Laboratory Tests 05/12/16 05:14: Alanine Aminotransferase (ALT/SGPT) 41, Albumin 3.5, Alkaline Phosphatase 113, Anion Gap 11, Aspartate Amino Transf (AST/SGOT) 31, BUN/Creatinine Ratio 13, Basophils # (Auto) 0.1, Basophils (%) (Auto) 1, Blood Urea Nitrogen 14, Calcium Level 9.0, Carbon Dioxide Level 23, Chloride Level 106, Creatinine 1.10, Eosinophils # (Auto) 0.3, Eosinophils (%) (Auto) 4, Estimat Glomerular Filtration Rate 50, Glucose Level 163H, Hematocrit 30L, Hemoglobin 9.1L, Lymphocytes # (Auto) 1.5, Lymphocytes (%) (Auto) 18, Mean Corpuscular Hemoglobin 27, Mean Corpuscular Hemoglobin Concent 30L, Mean Corpuscular Volume 90, Mean Platelet Volume 8.9, Monocytes # (Auto) 0.7, Monocytes (%) (Auto) 8, Neutrophils # (Auto) 5.9, Neutrophils (%) (Auto) 70, Platelet Count 252, Potassium Level 4.1, Red Blood Count 3.33L, Red Cell Distribution Width 16.0H, Sodium Level 140, Total Bilirubin 0.4, Total Protein 6.1L, White Blood Count 9.4 05/12/16 11:12: Glucometer 191H 05/12/16 15:31: Glucometer 159H 05/12/16 21:29: Glucometer 189H 05/13/16 05:03: Glucometer 146H 05/13/16 07:13: Urine Bacteria TRACE, Urine Bilirubin NEGATIVE, Urine Casts NONE, Urine Clarity CLEAR, Urine Color YELLOW, Urine Crystals NONE, Urine Culture Indicated YES, Urine Glucose (UA) NEGATIVE, Urine Ketones NEGATIVE, Urine Leukocyte Esterase 2+ H, Urine Mucus NEGATIVE, Urine Nitrite NEGATIVE, Urine Protein NEGATIVE, Urine RBC NONE, Urine RBC (Auto) NEGATIVE, Urine Renal Epithelial Cells 2-5, Urine Specific [place] 1.010L, Urine Squamous Epithelial Cells 5-10, Urine Urobilinogen NORMAL, Urine WBC 5-10H, Urine Yeast FEWH, Urine pH 6 05/13/16 10:33: Glucometer 201H 05/13/16 15:33: Glucometer 169H 05/13/16 20:09: Glucometer 166H 05/14/16 05:15: Glucometer 127H 05/14/16 05:16: Anion Gap 10, BUN/Creatinine Ratio 16, Basophils # (Auto) 0.1, Basophils (%) ( Auto) 1, Blood Urea Nitrogen 14, Calcium Level 8.2L, Carbon Dioxide Level 23, Chloride Level 109H, Creatinine 0.88, Eosinophils # (Auto) 0.3, Eosinophils (%) (Auto) 4, Estimat Glomerular Filtration Rate > 60, Glucose Level 125H, Hematocrit 28L, Hemoglobin 8.7L, Lymphocytes # (Auto) 1.7, Lymphocytes (%) (Auto ) 22, Mean Corpuscular Hemoglobin 29, Mean Corpuscular Hemoglobin Concent 31L, Mean Corpuscular Volume 92, Mean Platelet Volume 10.3, Monocytes # (Auto) 0.6, Monocytes (%) (Auto) 8, Neutrophils # (Auto) 5.2, Neutrophils (%) (Auto) 66, Platelet Count 207, Potassium Level 3.9, Red Blood Count 3.03L, Red Cell Distribution Width 17.5H, Sodium Level 142, White Blood Count 7.8 05/14/16 10:49: Glucometer 177H 05/14/16 15:41: Glucometer 162H 05/14/16 20:05: Glucometer 191H Microbiology 05/13/16 Urine Culture - Preliminary, Resulted NO GROWTH Assessment/Plan Assessment S/P RT CEA at OSH for Carotid artery d. DM better controlled Insomnia-melatonin resumed Mild dysarthria-ST addressing Herpes Simplex-antiviral ordered Discussed case with DR Lemos today who IS PCP-He made courtesy visit today Appreciate Dr Carvajal consult and orders OA both knees s/p BTKRS remote Constipation meds adjusted Presumed Pneumonia Antibiotics ordered. Plan Continue PT/OT/ST Team Conference hedl earlier today See report for full functional update and POC Appreciate DR carvajal notes and orders. Current labs appreciated Meds added for constipation See orders Discussed case with Nursing Discharge tentatively set for tomorrow. WHIT ARRINGTON MD May 14, 2016 20:54
[2016-05-15] MEDS: MEROPENEM 500 MG in NS (IVPB) 100 ML IV SCH (03:56)
[2016-05-15] MEDS: CATHETER FLUSH 10 ML SYR IV SCH (03:56)
[2016-05-15] MEDS: inSUlin ASPART (NovoLOG) 1 UNIT/0.01 ML (CHARGE PER UNIT) SC SCH ×2 (05:16→11:00)
[2016-05-15 05:30] VITALS: BP 145/84
[2016-05-15] MEDS: glipiZIDE 5 MG (GLUCOTROL) TAB PO SCH (06:17)
[2016-05-15] MEDS: LEVOTHYROXINE 100 MCG (LEVOTHROID) TAB PO SCH (06:17)
[2016-05-15] MEDS: MULTIVIT W/MINERALS TAB (THERAGRAN M) PO SCH (06:18)
[2016-05-15] MEDS: RT-ADVAIR HFA 45/21 MCG PER PUFF IH SCH (07:40)
--- NOTE | 2016-05-15 08:07 | Progress Note (SOAP) ---
Subjective Subjective/Events-last exam feeling better. Chest x-ray showed pneumonia. Patient sent home on Levaquin 5 more days. Urine culture negative now Objective Exam Vital Signs Date Time Temp Pulse Resp B/P Pulse Ox O2 Delivery O2 Flow Rate FiO2 05/15/16 07:40 88 05/15/16 05:30 99.0 87 18 145/84 92 Room Air 05/14/16 20:42 96 05/14/16 18:00 97.5 64 20 112/75 98 Room Air 05/14/16 09:00 Room Air I & O 05/15/16 07:00 Intake Total 1910 ml Balance 1910 ml Capillary Refill : General Appearance: No Apparent Distress WD/WN Results Lab Laboratory Tests 05/14/16 10:49: Glucometer 177H 05/14/16 15:41: Glucometer 162H 05/14/16 20:05: Glucometer 191H 05/15/16 05:11: Glucometer 127H Microbiology 05/13/16 Urine Culture - Preliminary, Resulted NO GROWTH Assessment/Plan Assessment/Plan Assess & Plan/Chief Complaint weakness. Carotid stenosis. Diabetes. History of renal failure. COPD. Asthma. Coronary artery disease History of infection. . 05/08/16. Weakness. Carotid stenosis. Diabetes. Renal insufficiency. History of infection. Asthma. . 05/09/16. Weakness. Carotid stenosis. Fluttering of heart. Diabetes. Renal insufficiency. CAD. Patient doing good. To monitor the flutter. . 05/12/16. GFR better at 50. Renal insufficiency. Carotid stenosis. Patient feeling better heart regular. Patient states occasionally heart flutters.. . 05/13/16. Patient feeling better. 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 Patient able to get up easily use the walker better. . 05/14/16. Weakness. Carotid stenosis. History of renal failure. COPD. History of recent pneumonia. Patient starting to cough. Urine culture shows no growth preliminary report. . 05/15/16. Patient feeling better. Patient to be discharged today. Pneumonia put on Levaquin. COPD. Carotid stenosis Clinical Quality Measures DVT/VTE Risk/Contraindication: Risk Factor Score Per Nursin RFS Level Per Nursing on Admit: 4+=Very High VIELKA LUIS DO May 15, 2016 08:07
--- NOTE | 2016-05-15 08:21 | Therapy Team Discharge Summary ---
Therapy Discharge Summary Discharge Recommendations Date of Discharge 05-15-16 Therapy D/C Recommendations: Home w/ Family Support, Occupational Therapy Home Care Occupational Therapy Pt. has been seen by occupational therapy to increase overall strength and independence with daily tasks. Pt. has met all goals. Pt. is able to shower, dress, and transfer with mod I. Pt. is discharging home with support from son. Recommend a shower chair, and an occupational therapy home evaluation to make sure she is independent in her home. Pt. to discharge today. PT [employer] Goals [employer] Goals PT [employer] Goals Time Frame: May 20, 2016 Transfers (B,C,W/C) (FIM): 6 (et) Roll Left to Right (QC): 6 (met) Sit to Lying (QC): 6 (met) Lying-Sitting on Side/Bed(QC): 6 (met) Sit to Stand (QC): 6 (met) Chair/Ser-ry-Rmqnl Xfer(QC): 6 Car Transfer (QC): 6 Does the Patient Walk: Yes Gait (FIM): 6 (mt) Gait distance (FIM): 3=150 ft Distance: 250' Walk 10 feet (QC): 6 (met) Walk 10ft-Uneven Surface(QC): 6 (met) Walk 50ft with 2 Turns (QC): 6 (met) Walk 150 ft (QC): 6 (met) Gait Level of Assist: 6 Gait Assistive Device: None, FWW Stairs (FIM): 5 (met) # of Steps: 4 1 Step (curb) (QC): 6 (met) 4 Steps (QC): 5 (metmet) 12 Steps (QC): 9 (met) Stairs Level Of Assist: 5 Picking up an Object (QC): 6 (met) OT [employer] Goals [employer] Goals Time Frame: May 20, 2016 Eating (FIM): 6 (met) Eating (QC): 6 (met) Oral Hygiene (QC): 6 (met) Grooming(FIM): 6 (met) Bathing(FIM): 6 (met) Shower/Bathe Self (QC): 6 (met) Upper Body Dressing(FIM): 6 (met) Upper Body Dressing (QC): 6 (met) Lower Body Dressing(FIM): 6 (met) Lower Body Dressing (QC): 6 (met) On/Off Footwear (QC): 6 (met) Toileting(FIM): 6 (met) Toileting Hygiene (QC): 6 (met) Toilet/Commode Transfer(FIM): 6 (met) Toilet/Commode Transfer (QC): 6 (met) Shower Transfer(FIM): 6 (met) Comprehension(FIM): 6 (MET) Expression (FIM): 5 (MET) Social Interaction(FIM): 6 (MET) Problem Solving(FIM): 6 (MET) Memory(FIM): 6 (MET) 1=Demonstrate adherence to instructed precautions during ADL tasks. 2=Patient will verbalize/demonstrate understanding of assistive devices/ modifications for ADL. 3=Patient will improve strength/tolerance for activity to enable patient to perform ADL's. Speech [employer] Goals Senior Care Goals 1. The patient will demonstrate increased labial and facial strength for improved intelligibility with verbal expression. Time Frame: Four Weeks Comprehension: 6 (MET) Expression: 5 (MET) Social Interaction: 6 (MET) Problem Solvin (MET) Memory: 6 (MET) HENRIETTA ROSENBERG OT May 15, 2016 08:21
[2016-05-15] MEDS: GABAPENTIN 100 MG (NEURONTIN) CAP PO SCH (09:01)
[2016-05-15] MEDS: meTOproloL SUCCINATE 50 MG (TOPROL XL) TAB PO SCH (09:02)
[2016-05-15] MEDS: LORazepam 1 MG (ATIVAN) TAB PO SCH (09:02)
[2016-05-15] MEDS: LORATADINE (CLARITIN) 10 MG TAB PO SCH (09:02)
[2016-05-15] MEDS: CLOPIDOGREL 75 MG (PLAVIX) TABLET PO SCH (09:02)
[2016-05-15] MEDS: hydrALAZINE (APRESOLINE) 25 MG TAB PO SCH (09:02)
[2016-05-15] MEDS: ATORVASTATIN 10 MG (LIPITOR) TABLET PO SCH (09:02)
[2016-05-15] MEDS: VITAMIN D3 5,000 UNITS (CHOLECALCIFEROL ) CAPSULE PO SCH (09:02)
[2016-05-15] MEDS: ASPIRIN E.C. 81 MG (ECOTRIN) TAB PO SCH (09:02)
[2016-05-15] MEDS: amLODIPine 5 MG (NORVASC) TAB PO SCH (09:02)
[2016-05-15] MEDS: SENNA W/DOCUSATE (SENOKOT S) TABLET PO SCH (09:02)
[2016-05-15] MEDS: MONTELUKAST 10 MG (SINGULAIR) TAB PO SCH (09:03)
--- NOTE | 2016-05-15 10:17 | Therapy Team Discharge Summary ---
Therapy Discharge Summary Discharge Recommendations Date of Discharge Therapy D/C Recommendations: Home w/ Family Support, Occupational Therapy Home Care Physical Therapy Patient came to rehab with weakness after right carotid endarterectomy. Upon admission patient performed bed mobility and transfers with SBA, ambulated 150' with a rolling walker with SBA, and could go up and down 5 steps using 2 handrails with CGA. Patient has been performing bed mobility and transfer training, balance and endurance training, functional strengthening, stair training, gait training, and education. Patient has made good progress and has met all of her roasterman goals. Now patient can perform bed mobility and transfers with mod I, ambulates 300' with a rolling walker with mod I ( including 10' over an uneven surface like carpet and 50' with at least 2 turns of 90 degrees), and can go up and down 12 steps using 2 handrails with mod I, and she can cloth picker an object from the floor with mod I. Patient is being discharged from this facility today and will be discharged from PT at this time. PT [facility] Goals Accounting Supervisor Goals PT Accounting Supervisor Goals Time Frame: May 20, 2016 Transfers (B,C,W/C) (FIM): 6 (et) Roll Left to Right (QC): 6 (met) Sit to Lying (QC): 6 (met) Lying-Sitting on Side/Bed(QC): 6 (met) Sit to Stand (QC): 6 (met) Chair/Mfc-pl-Eurlr Xfer(QC): 6 Car Transfer (QC): 6 Does the Patient Walk: Yes Gait (FIM): 6 (mt) Gait distance (FIM): 3=150 ft Distance: 250' Walk 10 feet (QC): 6 (met) Walk 10ft-Uneven Surface(QC): 6 (met) Walk 50ft with 2 Turns (QC): 6 (met) Walk 150 ft (QC): 6 (met) Gait Level of Assist: 6 Gait Assistive Device: None, FWW Stairs (FIM): 5 (met) # of Steps: 4 1 Step (curb) (QC): 6 (met) 4 Steps (QC): 5 (metmet) 12 Steps (QC): 9 (met) Stairs Level Of Assist: 5 Picking up an Object (QC): 6 (met) OT Accounting Supervisor Goals Accounting Supervisor Goals Time Frame: May 20, 2016 Eating (FIM): 6 (met) Eating (QC): 6 (met) Oral Hygiene (QC): 6 (met) Grooming(FIM): 6 (met) Bathing(FIM): 6 (met) Shower/Bathe Self (QC): 6 (met) Upper Body Dressing(FIM): 6 (met) Upper Body Dressing (QC): 6 (met) Lower Body Dressing(FIM): 6 (met) Lower Body Dressing (QC): 6 (met) On/Off Footwear (QC): 6 (met) Toileting(FIM): 6 (met) Toileting Hygiene (QC): 6 (met) Toilet/Commode Transfer(FIM): 6 (met) Toilet/Commode Transfer (QC): 6 (met) Shower Transfer(FIM): 6 (met) Comprehension(FIM): 6 (MET) Expression (FIM): 5 (MET) Social Interaction(FIM): 6 (MET) Problem Solving(FIM): 6 (MET) Memory(FIM): 6 (MET) 1=Demonstrate adherence to instructed precautions during ADL tasks. 2=Patient will verbalize/demonstrate understanding of assistive devices/ modifications for ADL. 3=Patient will improve strength/tolerance for activity to enable patient to perform ADL's. Speech Accounting Supervisor Goals [facility] Goals 1. The patient will demonstrate increased labial and facial strength for improved intelligibility with verbal expression. Time Frame: Four Weeks Comprehension: 6 (MET) Expression: 5 (MET) Social Interaction: 6 (MET) Problem Solvin (MET) Memory: 6 (MET) BRENT MORRIS PT May 15, 2016 10:16
--- NOTE | 2016-05-15 10:18 | PM & R (SOAP) Progress Note ---
Subjective Subjective/Events-last exam Patient was seen in her room this AM Appreciate Dr Carvajal note Discussed case with RN Current labs reviewed as well as therapy notes Objective Exam Last Set of Vital Signs Vital Signs Date Time Temp Pulse Resp B/P Pulse Ox O2 Delivery O2 Flow Rate FiO2 05/15/16 09:23 Room Air 05/15/16 07:40 88 05/15/16 05:30 99.0 87 18 145/84 Capillary Refill : I&O Intake and Output 05/15/16 00:00 Intake Total 2400 ml Balance 2400 ml Intake Oral 2200 ml IV Total 200 ml # Voids 6 General: Alert, Oriented X3, Cooperative, No Acute Distress HEENT: Atraumatic, PERRLA, EOMI, Other (mild rt labial droop Hyperemic mucosa) Neck: Supple, No JVD Lungs: Clear to Auscultation Heart: Regular Rate Abdomen: Normal Bowel Sounds, Soft, No Tenderness Extremities: No Edema Neuro: Other (generalized weakness) Results Lab Laboratory Tests 05/12/16 11:12: Glucometer 191H 05/12/16 15:31: Glucometer 159H 05/12/16 21:29: Glucometer 189H 05/13/16 05:03: Glucometer 146H 05/13/16 07:13: Urine Bacteria TRACE, Urine Bilirubin NEGATIVE, Urine Casts NONE, Urine Clarity CLEAR, Urine Color YELLOW, Urine Crystals NONE, Urine Culture Indicated YES, Urine Glucose (UA) NEGATIVE, Urine Ketones NEGATIVE, Urine Leukocyte Esterase 2+ H, Urine Mucus NEGATIVE, Urine Nitrite NEGATIVE, Urine Protein NEGATIVE, Urine RBC NONE, Urine RBC (Auto) NEGATIVE, Urine Renal Epithelial Cells 2-5, Urine Specific [place] 1.010L, Urine Squamous Epithelial Cells 5-10, Urine Urobilinogen NORMAL, Urine WBC 5-10H, Urine Yeast FEWH, Urine pH 6 05/13/16 10:33: Glucometer 201H 05/13/16 15:33: Glucometer 169H 05/13/16 20:09: Glucometer 166H 05/14/16 05:15: Glucometer 127H 05/14/16 05:16: Anion Gap 10, BUN/Creatinine Ratio 16, Basophils # (Auto) 0.1, Basophils (%) ( Auto) 1, Blood Urea Nitrogen 14, Calcium Level 8.2L, Carbon Dioxide Level 23, Chloride Level 109H, Creatinine 0.88, Eosinophils # (Auto) 0.3, Eosinophils (%) (Auto) 4, Estimat Glomerular Filtration Rate > 60, Glucose Level 125H, Hematocrit 28L, Hemoglobin 8.7L, Lymphocytes # (Auto) 1.7, Lymphocytes (%) (Auto ) 22, Mean Corpuscular Hemoglobin 29, Mean Corpuscular Hemoglobin Concent 31L, Mean Corpuscular Volume 92, Mean Platelet Volume 10.3, Monocytes # (Auto) 0.6, Monocytes (%) (Auto) 8, Neutrophils # (Auto) 5.2, Neutrophils (%) (Auto) 66, Platelet Count 207, Potassium Level 3.9, Red Blood Count 3.03L, Red Cell Distribution Width 17.5H, Sodium Level 142, White Blood Count 7.8 05/14/16 10:49: Glucometer 177H 05/14/16 15:41: Glucometer 162H 05/14/16 20:05: Glucometer 191H 05/15/16 05:11: Glucometer 127H Microbiology 05/13/16 Urine Culture - Preliminary, Resulted NO GROWTH Assessment/Plan Assessment S/P RT CEA at OSH for Carotid artery d. DM better controlled Insomnia-melatonin resumed Mild dysarthria-ST addressing Herpes Simplex-antiviral ordered Discussed case with DR Lemos today who IS PCP-He made courtesy visit today Appreciate Dr Carvajal consult and orders OA both knees s/p BTKRS remote Constipation meds adjusted Presumed Pneumonia Antibiotics ordered. Plan Discharge today to home with family and HHC F/U with Dr Jimenez in 1 week with CXR See orders. WHIT ARRINGTON MD May 15, 2016 10:18
[2016-05-15] MEDS ORDERED: CALC-250 PO (10:28)
[2016-05-15] MEDS ORDERED: INSU100V5 SQ (10:28)
[2016-05-15] MEDS ORDERED: GABA-486 PO (10:28)
[2016-05-15] MEDS ORDERED: AMLO5TAB2 PO (10:28)
[2016-05-15] MEDS ORDERED: METO-272 PO (10:28)
[2016-05-15] MEDS ORDERED: MONT10TA24 PO (10:28)
[2016-05-15] MEDS ORDERED: LEVO750T39 PO (10:28)
[2016-05-15] MEDS ORDERED: INSU100V16 SC (10:28)
[2016-05-15] MEDS ORDERED: Multivitamins/Minerals Therap PO (10:28)
[2016-05-15] MEDS ORDERED: GLIP5TAB13 PO (10:28)
[2016-05-15] MEDS: LEVOFLOXACIN 750 MG TAB (LEVAQUIN) PO SCH (11:16)
[2016-05-15 11:30] VITALS: BP 145/84
--- NOTE | 2016-05-27 13:19 | DISCHARGE SUMMARY ---
DATE OF ADMISSION: 05/06/2016 DATE OF DISCHARGE: 05/15/2016 HISTORY OF PRESENT ILLNESS: The patient is a 60-year-old female who lives alone in [place] who had been modified independent with a cane or walker prior to having a right carotid endarterectomy for carotid artery disease Dr. Victoria at [facility] in [place], [place] on 04/24/2016. The patient had postoperative complications with hypertension, which was managed with a Cardene drip. She had worsening renal function and nephrology was consulted and the patient was started on IV fluids. The patient spiked a fever and had leukocytosis and there was concern for pneumonia. She was started on antibiotics. Chest x-ray on 04/26 and 04/27 showed increasing pulmonary edema and she was placed on BiPAP and started on Lasix. She was followed by hospitalist service and cardiology, critical care and Dr. Victoria. Therapies were begun and the patient was felt to be appropriate for inpatient rehabilitation and she was referred to [facility] rehab unit so as to be closer to home. Her PCP is Dr. Colindres PAST MEDICAL HISTORY: 1. Type 2 diabetes mellitus. 2. Hypertension. 3. COPD, 4. GERD. 5. Asthma. 6. Chronic UTIs. 7. Carpal tunnel syndrome. 8. Osteoporosis. 9. Systemic lupus erythematosus. 10. Left breast biopsy. 11. Thyroidectomy. 12. Carpal tunnel release bilateral. MEDICAL COURSE: The patient was followed by Dr. Mcdonald and Dr. Matthew while on rehab unit. Her Accu-Cheks were monitored, insulin adjusted accordingly. She continued on her multiple medications which included Norvasc, Toprol-XL, Apresoline, Lipitor, aspirin, Singulair, Plavix, Ativan, Claritin, Synthroid, Elavil, Vitamin D3, Flonase nasal spray, Gabapentin, Advair, metformin, glipizide, Proventil treatments. She continued on a carb consistent diet. She had a chest x-ray on 05/14 showing interval development of bilateral patchy airspace opacities consistent with pneumonia. She had a course of IV antibiotics with improvement. She was afebrile during her stay. Blood pressure 145/84 on 05/15, pulse 87, respirations 18, O2 saturation 88% on room air. CBC on 05/14 showed WBC 7.8, H&H 8.7.28, platelet count 207,000. Glucometer readings between 05/14 and 05/15 varied between 127 and 192. Serum calcium on 05/14 was 8.2, blood glucose 125, chloride 109. UA was abnormal on 05/13 it showed yeast species. Urine culture on 05/07 showed pseudomonas aeruginosa, the patient was on antibiotic. The patient was also then started on Levaquin on the 05/14 p.o. after completing a course of IV antibiotics. The patient had a short course of Diflucan also for yeast infection. Her incision site was healing well and despite these her various medical issues she progressed well with therapy. She will have a follow-up x-ray in one week's time with Dr. Colindres. The patient had a course of acyclovir capsules for presumed oral herpes simplex. REHABILITATION COURSE: As per above she progressed well. PT notes upon admission the patient could perform bed mobility, transfers, standby assist, could ambulate 150 feet with a wheeled walker with standby assist and could go up and down 5 steps using 2 handrails with contact guard. Upon discharge, the patient could perform bed mobility, transfers, modified independent and ambulate 20 feet with a wheeled walker with modified independence. OT notes upon discharge she is able to shower dressing, transfers with modified independence. She will be discharging home with support from her son. It is recommended that she obtain a shower chair and home health care evaluation. Upon admission OT notes the patient was modified independent for eating, standby assist for grooming. Min assist for oral hygiene, min assist to standby assist for bathing. Set up for dressing, upper body, min assist for lower body dressing. Min assist for toileting hygiene, and toilet transfers. Speech therapy noted upon admission, the patient reported and demonstrated mild dysarthria secondary to slight facial nerve paralysis. Skilled speech therapy services focused on oral motor exercises, and labial/lingual strengthening. The patient met all goals placed by speech therapy demonstrating exercises with high accuracy independently and speech intelligibility improved. DISCHARGE INSTRUCTIONS: The patient will continue with carb consistent diet. Have follow-up with her surgeon Dr. Victoria and Dr. Colindres, PCP. Would follow-up chest x-ray one week's time with Dr. Colindres. The will have follow-up home health care services as well. DISCHARGE MEDICATIONS: 1. Amlodipine 10 mg p.o. daily. 2. Vitamin D 5000 units p.o. b.i.d. 3. Gabapentin 200 mg p.o. b.i.d. 4. Glipizide 5 mg p.o. b.i.d. with meals. 5. NovoLog insulin subcutaneous before meals and at bedtime, sliding scale. 6. Levemir insulin 18 units subcutaneous at bedtime. 7. Levaquin 750 mg p.o. daily. 8. Metoprolol 50 mg p.o. daily. 9. Singulair 10 mg p.o. daily. 10. Multivitamins with minerals 1 tablet p.o. daily. 11. Ventolin HFA 1 to 2 puffs q.i.d. 12. Amitriptyline 50 mg p.o. daily. 13. ASA 81 mg p.o. daily. 14. Lipitor 10 mg p.o. daily. 15. Symbicort 2 puffs b.i.d. 16. Cetirizine 10 mg p.o. daily. 17. Plavix 75 mg p.o. daily. 18. Flexeril 10 mg p.o. daily. 19. Flonase 2 sprays nasally at bedtime. 20. Levothyroxine 100 mcg p.o. daily. 21. Victoza 1.2 mg subcutaneous daily. 22. Lorazepam 0.5 mg p.o. t.i.d. p.r.n. anxiety. 23. Meclizine 25 mg p.o. q.6 hours p.r.n. dizziness. DISCHARGE DIAGNOSES: 1. Rehabilitation general debilitation status post right carotid artery endarterectomy for right carotid artery disease. 2. Dysarthria, postop cleared. 3. Postop hypertension, cleared. 4. Postoperative respiratory insufficiency, weaned from O2. 5. P.o. fluid overload, improved. 6. Herpes simplex, oral treated. 7. UTI, treated. 8. Cardiomyopathy stable, on medications. 9. Obesity. BMI 40.5. 10. Renal insufficiency, stable. 11. Hypertension, stable. 12. Diabetic peripheral neuropathy. 13. Coronary artery disease, stable. 14. Hypothyroidism on replacement. 15. GERD, on medications. 16. COPD, stable on medications. 17. Insomnia, improved with melatonin. 18. Long-term insulin. 19. Status post coronary stent. 20. Status post bilateral total knee replacements. 21. Constipation, treated. 22. Pneumonia, treated. CONDITION AT DISCHARGE: Improved and stable. PROGNOSIS: Rehab prognosis appears good for continued improvement at home and return to independent living with assistance from family as needed. Job ID: [id number] Dictated Date: 05/27/2016 12:30:30 Mailhouse Operator Date: 05/27/2016 12:52:22/edelmira MANCUSO
== END 2016-05-15 11:30 | disposition home health service (06) | DRG 949 ==
PROVIDERS: ADMIT Physical Medicine & Rehabilitation; ATTEND Physical Medicine & Rehabilitation
DX: Z48.812 Encounter for surgical aftercare following surgery on the circulatory system (principal); R47.1 Dysarthria and anarthria; B00.2 Herpesviral gingivostomatitis and pharyngotonsillitis; N39.0 Urinary tract infection, site not specified; I42.9 Cardiomyopathy, unspecified; J18.9 Pneumonia, unspecified organism; E87.70 Fluid overload, unspecified; E66.9 Obesity, unspecified; Z68.41 Body mass index [BMI] 40.0-44.9, adult; R06.89 Other abnormalities of breathing; N28.9 Disorder of kidney and ureter, unspecified; I10 Essential (primary) hypertension; E11.42 Type 2 diabetes mellitus with diabetic polyneuropathy; I25.10 Atherosclerotic heart disease of native coronary artery without angina pectoris; K59.00 Constipation, unspecified; E03.9 Hypothyroidism, unspecified; K21.9 Gastro-esophageal reflux disease without esophagitis; J44.9 Chronic obstructive pulmonary disease, unspecified; G47.00 Insomnia, unspecified; Z79.4 Long term (current) use of insulin; Z95.5 Presence of coronary angioplasty implant and graft; Z96.653 Presence of artificial knee joint, bilateral
CPT/HCPCS: 36415; 71020; 80048; 80053; 81000; 82962; 83880; 85007; 85025; 85027; 87077; 87088; 87186; 94640; 94664; 94760

== ENCOUNTER → 2016-05-26 | Outpatient (CLI) | payer MEDICARE, OTHER ==
[~2016-05-26] MED LIST changes: +CALC-250 PO; +INSU100V16 SC; +INSU100V5 SQ; +LEVO750T39 PO; +METO-272 PO; +Multivitamins/Minerals Therap PO
--- NOTE | 2016-05-26 09:52 | Diagnostic Imaging Report ---
INDICATION: Pneumonia. PA and lateral views of the chest are obtained. Comparison is made study of 05/14/2016. FINDINGS: Overall heart size and pulmonary vascularity remain within normal limits. There may be slight residual density in right perihilar region, however, previous findings have otherwise nearly resolved. There is no evidence of pneumothorax or significant pleural fluid. IMPRESSION: Minimal residual right perihilar density may represent area of residual pneumonitis. No new abnormality or adverse change is seen. Dictated by: Dictated on workstation # [id number]
== END ==
LOC: RAD 09:02
PROVIDERS: ATTEND Family Medicine
DX: J18.9 Pneumonia, unspecified organism (principal)
CPT/HCPCS: 71020

== ENCOUNTER → 2016-07-01 | Outpatient (CLI) | payer MEDICARE, OTHER ==
--- NOTE | 2016-07-04 08:36 | Diagnostic Imaging Report ---
EXAMINATION: Bilateral screening mammogram with a Computer Aided Detection (CAD) system. INDICATION: Screening. PERSONAL HISTORY: No current complaints stated on the questionnaire. COMPARISON: 06/28/2015. FINDINGS: The breasts are composed of scattered fibroglandular densities. There are scattered benign-appearing calcifications. In addition, there is a new group of mildly heterogenous calcifications seen in the upper lateral aspect of the right breast at mid depth. No definite associated mass. The left breast demonstrates no definite change. IMPRESSION: Focal compression magnification views for better evaluation of a new cluster of calcifications in the upper outer aspect of the right breast would be recommended. ACR BI-RADS Category 0: Incomplete. (Needs additional imaging evaluation). Result letter will be mailed to the patient. Note: At least 10% of breast cancer is not imaged by mammography. Dictated by: Dictated on workstation # [id number]
== END ==
LOC: RAD 08:48
PROVIDERS: ATTEND Obstetrics & Gynecology
DX: Z12.31 Encounter for screening mammogram for malignant neoplasm of breast (principal)
CPT/HCPCS: 77067

== ENCOUNTER → 2016-10-15 | Outpatient (CLI) | payer MEDICARE, OTHER ==
--- NOTE | 2016-10-15 12:59 | Diagnostic Imaging Report ---
PROCEDURE: CT abdomen and pelvis without contrast. TECHNIQUE: Multiple contiguous axial images were obtained through the abdomen and pelvis without the use of intravenous contrast. INDICATION: Abdominal and pelvic pain two weeks' duration. COMPARISON: Study compared with the abdominal portion of a CT chest and abdomen dated 08/30/2014. FINDINGS: There are some patchy nodular tree-in-bud infiltrates in both lower lobes suggestive of infectious or inflammatory process. No basilar pleural fluid. The gallbladder is surgically absent. There are a few small benign calcified splenic granulomata; the spleen is normal in size. The adrenals, pancreas, and unobstructed kidneys appeared normal. There is no bowel obstruction. There is apparent previous appendectomy. The uterus, adnexa, and urinary bladder are unremarkable. There is no evidence for bowel, biliary, or urinary tract obstruction. There is no ascites, abscess, hematoma, or other fluid collection. No inflammatory process or acute finding. No pneumatosis or free air. IMPRESSION: Likely infectious or inflammatory changes in the lung bases. No acute abdominal or pelvic abnormality. Dictated by: Dictated on workstation # [id number]
== END ==
LOC: RAD 07:30
PROVIDERS: ATTEND Family Medicine
DX: R10.2 Pelvic and perineal pain (principal)
CPT/HCPCS: 74176

== ENCOUNTER → 2016-11-18 | Outpatient (CLI) | payer MEDICARE, OTHER ==
--- NOTE | 2016-11-18 13:39 | Diagnostic Imaging Report ---
PA view of the chest and three views of the left ribs. INDICATION: Left rib pain. FINDINGS: PA chest view demonstrates slightly prominent opacity along the medial aspect of the right lung base probably related to prominent pericardial fat pad. The heart size is mildly enlarged. No effusion or pneumothorax. The mediastinum and kesha appear unremarkable. The left ribs demonstrate no fracture or focal lesion. IMPRESSION: Cardiomegaly. No left rib fracture seen. Dictated by: Dictated on workstation # [id number]
--- NOTE | 2016-11-18 13:44 | Diagnostic Imaging Report ---
AP view of the pelvis. INDICATION: Right hip pain. Patient felt that the right hip popped out of place. FINDINGS: No fracture, dislocation or radiopaque foreign body is seen. Prominent sclerotic changes with suggestion of subchondral erosions are seen in the right sacroiliac joint. The left sacroiliac joint demonstrates minimal sclerotic degenerative changes. Minimal degenerative changes at the hip joints and symphysis pubis seen. IMPRESSION: Prominent sclerotic changes with question of erosive component in the right sacroiliac joint seen. Consider possibility of inflammatory arthritis. Mild degenerative changes seen in the hip joints. Dictated by: Dictated on workstation # [id number]
== END ==
LOC: RAD 09:15
PROVIDERS: ATTEND Family Medicine
DX: R93.8 Abnormal findings on diagnostic imaging of other specified body structures (principal); I51.7 Cardiomegaly; R07.81 Pleurodynia
CPT/HCPCS: 71101; 72170

== ENCOUNTER 2017-06-15 17:00 | Outpatient (RCR) | payer MEDICARE, OTHER ==
[~2017-06-15 17:00] MED LIST changes: -METF1000 PO; +METF10002 PO; -METO-270 PO; -METO-272 PO; +METO-370 PO; +METO-387 PO
== END 2017-07-10 | disposition home or self-care (01) ==
LOC: CR3 17:00
PROVIDERS: ATTEND Family Medicine
DX: Z29.8 Encounter for other specified prophylactic measures (principal)

== ENCOUNTER → 2017-06-19 | Outpatient (CLI) | payer MEDICARE, OTHER ==
--- NOTE | 2017-06-19 08:24 | Diagnostic Imaging Report ---
PROCEDURE: US left lower extremity venous. TECHNIQUE: Multiple real-time grayscale images were obtained over the left lower extremity in various projections. Additional duplex Doppler and color Doppler images were also obtained. INDICATION: Left lower extremity pain and swelling. EXAMINATION: Grayscale and color Doppler evaluation of the deep veins of the left lower extremity were performed with waveform analysis. FINDINGS: Continuous venous flow is present. No intraluminal filling defect is identified. There is normal compressibility and response to augmentation. No abnormal perivascular fluid collection is identified. IMPRESSION: No ultrasound evidence of left lower extremity deep venous thrombosis. Dictated by: Dictated on workstation # [id number]
== END ==
LOC: RAD 07:17
PROVIDERS: ATTEND Family Medicine
DX: M79.89 Other specified soft tissue disorders (principal)

== ENCOUNTER → 2017-08-12 | Outpatient (RCR) | payer MEDICARE, OTHER | END | disposition home or self-care (01) | LOC: CR3 07-13 07:50 | PROVIDERS: ATTEND Family Medicine | DX: Z29.8 Encounter for other specified prophylactic measures (principal) ==

== ENCOUNTER 2017-09-04 08:54 | Outpatient (RCR) | payer MEDICARE, OTHER | END 2017-09-13 | disposition home or self-care (01) | LOC: CR3 08:54 | PROVIDERS: ATTEND Family Medicine | DX: Z29.8 Encounter for other specified prophylactic measures (principal) ==

== ENCOUNTER → 2017-10-07 | Outpatient (CLI) | payer MEDICARE, OTHER ==
--- NOTE | 2017-10-07 10:42 | Diagnostic Imaging Report ---
PROCEDURE: US left lower extremity venous. TECHNIQUE: Multiple real-time grayscale images were obtained over the left lower extremity in various projections. Additional duplex Doppler and color Doppler images were also obtained. INDICATION: Left leg pain and swelling. FINDINGS: The veins have good color fill-in and compressibility. There is normal spontaneous and augmented flow. IMPRESSION: Negative venous Doppler left leg. Dictated by: Dictated on workstation # [id number]
== END ==
LOC: RAD 09:23
PROVIDERS: ATTEND Family Medicine
DX: I82.432 Acute embolism and thrombosis of left popliteal vein (principal); R00.2 Palpitations
CPT/HCPCS: 93005

== ENCOUNTER 2017-10-13 07:50 | Emergency (ER) | payer MEDICARE, OTHER ==
[~2017-10-13] VITALS: Ht 162.6 cm; Wt 109.8 kg
--- OUTSIDE RECORDS SUMMARY | 2017-10-13 07:59 | XMS REPORT ---
Author Author JF CHAVARRIA [facility] Address [address] [place] [address] Care Team Providers Care Conservation Science Teacher Name Role Phone JF CHAVARRIA Unavailable PROBLEMS Type Condition ICD9-CM Code [id number] Code Onset Dates Condition Status SNOMED Code Assessment Severe episode of recurrent major depressive disorder, without psychotic features F33.2 Nov, Active [id number] Assessment Generalized anxiety disorder F41.1 Nov, Active [id number] Assessment Panic attack F41.0 Nov, Active [id number] ALLERGIES Unknown Allergies SOCIAL HISTORY No smoking Hx information available PLAN OF CARE VITAL SIGNS MEDICATIONS Unknown Medications RESULTS No Results PROCEDURES Procedure Date Ordered Related Diagnosis Body Site Psych diagnostic evaluation, new patient Nov 26, 2015 IMMUNIZATIONS No Known Immunizations
--- OUTSIDE RECORDS SUMMARY | 2017-10-13 07:59 | XMS REPORT ---
Author Author JF CHAVARRIA [facility] Address [address] [place] [address] Care Team Providers Care Leasing Agent Name Role Phone JF CHAVARRIA Unavailable PROBLEMS Type Condition ICD9-CM Code QCX05-AR Code Onset Dates Condition Status SNOMED Code Assessment Anxiety, generalized F41.1 Nov, Active [id number] Assessment Severe episode of recurrent major depressive disorder, without psychotic features F33.2 Nov, Active [id number] ALLERGIES Unknown Allergies SOCIAL HISTORY No smoking Hx information available PLAN OF CARE VITAL SIGNS MEDICATIONS Unknown Medications RESULTS No Results PROCEDURES Procedure Date Ordered Related Diagnosis Body Site Psychotherapy, patient &/family, 30 minutes, established patient Dec 03, 2015 IMMUNIZATIONS No Known Immunizations
--- NOTE | 2017-10-13 08:57 | Diagnostic Imaging Report ---
PROCEDURE: CT head without contrast. TECHNIQUE: Multiple contiguous axial images were obtained through the brain without the use of intravenous contrast. INDICATION: Head pain after fall. FINDINGS: There is mild prominence of the ventricles and sulci. There is some mild chronic microvascular ischemic disease. There is no hydrocephalus. No midline shift. There is no intracranial mass, hemorrhage or extra-axial fluid collection. Calvarium is intact. Sinuses and mastoid air cells are clear. Impression: No acute intracranial abnormality. Atrophy and mild chronic microvascular ischemic disease. Dictated by: Dictated on workstation # [id number]
--- NOTE | 2017-10-13 09:38 | ED Fall/Injury ---
General Chief Complaint: Trauma-Non Activation Stated Complaint: FELL Nursing Triage Note: SEE TRIAGE Source: patient Exam Limitations: no limitations History of Present Illness Date Seen by Provider: Oct 13, 2017 Time Seen by Provider: 08:50 Initial Comments Here with report of fall off the porch this morning. Patient apparently had an episode where she was coughing and describes choking but states her COPD is activated. She stepped out of the house to go to her son's house next door when she slipped and fell. She states that she hit her head and landed on her left hip. Denies loss of consciousness. Complains of pain to the posterior hip area on the left. Has been using her albuterol nebulizer at home and this has been helping but does not lasting. She has a doctor's appointment tomorrow. Location Injury Occurred: HOME Occurred: this morning Severity: moderate Injuries/Pain Location: head, pelvis Context: lost balance Loss of Consciousness: no loss of consciousness Associated Symptoms (Fall): No Abdominal Pain, No Chest Pain, No Confusion; Dizziness; No Headache, No Neck Pain Allergies and Home Medications Allergies Coded Allergies: Penicillins (Verified Allergy, Unknown, 10/22/06) acetaminophen (Verified Allergy, Unknown, 10/22/06) codeine (Verified Allergy, Unknown, UPSET STOMACH, 10/23/06) morphine (Unverified Allergy, Unknown, 12/12/14) propoxyphene (Verified Allergy, Unknown, 10/22/06) topiramate (Verified Allergy, Unknown, 10/22/06) Home Medications Albuterol Sulfate 18 Gm Hfa.aer.ad, 1-2 PUFF IH QID, (Reported) Amitriptyline HCl 50 Mg Tablet, 50 MG PO UD, (Reported) Amlodipine Besylate 5 Mg Tablet, 10 MG PO DAILY Prescribed by: WHIT ARRINGTON on 05/15/16 1028 Aspirin 81 Mg Tablet.dr, 81 MG PO DAILY Prescribed by: NGHIA GUTIERREZ on 12/27/15 0741 Atorvastatin Calcium 10 Mg Tablet, 10 MG PO DAILY Prescribed by: NGHIA GUTIERREZ on 12/27/15 0742 Budesonide/Formoterol Fumarate 10.2 Gm Hfa.aer.ad, 2 PUFF IH BID, (Reported) Cetirizine HCl 10 Mg Tablet, 10 MG PO DAILY, (Reported) Cholecalciferol 5,000 Unit Capsule, 5,000 UNIT PO BID Prescribed by: WHIT ARRINGTON on 05/15/16 1028 Clopidogrel Bisulfate 75 Mg Tablet, 1 TAB PO UD, (Reported) Cyclobenzaprine HCl 10 Mg Tablet, 10 MG PO UD, (Reported) Fluticasone Propionate 16 Gm [place].susp, 2 SPRAYS NS HS, (Reported) Gabapentin 100 Mg Capsule, 200 MG PO BID Prescribed by: WHIT ARRINGTON on 05/15/16 1028 Glipizide 5 Mg Tablet, 5 MG PO BID WITH MEALS Prescribed by: WHIT ARRINGTON on 05/15/16 1028 Insulin Aspart 100 Unit/1 Ml Susp, 0 UNIT SC ACHS Prescribed by: WHIT ARRINGTON on 05/15/16 1028 Insulin Determir 1,000 Units/10 Ml Soln, 18 UNIT SQ HS Prescribed by: WHIT ARRINGTON on 05/15/16 1028 Levofloxacin 750 Mg Tablet, 750 MG PO DAILY@1100 Prescribed by: WHIT ARRINGTON on 05/15/16 1028 Levothyroxine Sodium 100 Mcg Tablet, 100 MCG PO DAILY, (Reported) Liraglutide 0.6 Mg/0.1 Ml Pen.injctr, 1.2 MG SQ UD, (Reported) Lorazepam 0.5 Mg Tablet, 0.5 MG PO TID PRN for ANXIETY, (Reported) Meclizine HCl 25 Mg Tablet, 25 MG PO Q6H PRN for DIZZINESS Prescribed by: DAVIN ADHIKARI on 04/07/16 0323 Metoprolol Succinate 50 Mg Tab.er.24h, 50 MG PO DAILY Prescribed by: WHIT ARRINGTON on 05/15/16 1028 Montelukast Sodium 10 Mg Tablet, 10 MG PO DAILY Prescribed by: WHIT ARRINGTON on 05/15/16 1028 [Multivitamins/Minerals Therap] 1 EA TABLET, 1 EA PO DAILY@0700 Prescribed by: WHIT ARRINGTON on 05/15/16 1028 Patient Home Medication List Home Medication List Reviewed: Yes Review of Systems Constitutional: see HPI; No chills, No fever Eyes: No Symptoms Reported Ears, Nose, Mouth, Throat: no symptoms reported Respiratory: see HPI, cough, short of breath, wheezing Cardiovascular: no symptoms reported Gastrointestinal: No abdominal pain, No nausea, No vomiting Genitourinary: no symptoms reported Musculoskeletal: see HPI, joint pain, muscle pain; No neck pain Skin: no symptoms reported All Other Systems Reviewed Negative Unless Noted: Yes Past Ejhhubb-Geqmbx-Bkofnk Hx Past Med/Social Hx: Reviewed Nursing Past Med/Soc Hx Patient Social History Alcohol Use: Denies Use Recreational Drug Use: No Smoking Status: Former Smoker Recent Foreign Travel: No Contact w/Someone Who Travel: No Recent Infectious Disease Expo: No Recent Hopitalizations: No Immunizations Up To Date Tetanus Booster (TDap): Unknown Date of Pneumonia Vaccine: Jan 06, 2008 Date of Influenza Vaccine: Dec 27, 2015 Seasonal Allergies Seasonal Allergies: No Past Medical History Surgeries: Yes (FOOT) Appendectomy, Coronary Stent, Gallbladder, Orthopedic, Thyroidectomy Respiratory: Yes (CPAP) Asthma, Sleep Apnea, COPD Currently Using CPAP: Yes Currently Using BIPAP: No Cardiac: Yes Cardiomyopathy, Coronary Artery Disease, High Cholesterol, Hypertension Neurological: No 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 Sexually Transmitted Disease: No UTI-Chronic Gastrointestinal: No Musculoskeletal: Yes (ARTHRITIS, LUPUS) Arthritis Endocrine: Yes Diabetes, Insulin dep, Hypothyroidsim Cancer: No Psychosocial: Yes Anxiety, Depression Integumentary: No Blood Disorders: No Adverse Reaction/Blood Tranf: No Family Medical History Reviewed Nursing Family Hx Alzheimer's disease G8 SISTER Diabetes mellitus 19 FATHER Hypertension 19 FATHER 19 MOTHER Myocardial infarction 19 FATHER 19 MOTHER Neoplasm G8 SISTER Physical Exam Vital Signs Vital Signs - First Documented 10/13/17 10/13/17 07:50 09:46 Temp 97.1 Pulse 94 Resp 18 B/P (MAP) 144/84 (104) Pulse Ox 95 O2 Delivery Nasal Cannula O2 Flow Rate 1.00 Capillary Refill : Less Than 3 Seconds Height, Weight, BMI Height: 5'4.00" Weight: 242lbs. 0.0oz. 109.157755ld; 40.5 BMI Method:Stated General Appearance: WD/WN, no apparent distress HEENT: PERRL/EOMI, pharynx normal Neck: full range of motion, supple Cardiovascular: regular rate, rhythm, no murmur Respiratory: lungs clear, normal breath sounds Gastrointestinal: non tender, soft Back: normal inspection, no CVA tenderness, no vertebral tenderness Extremities: pelvis stable, other (tenderness posterior left hip area without deformity.) Neurologic/Psychiatric: alert, oriented x 3 Skin: normal color, warm/dry [place] Coma Score Best Eye Response: (4) Open Spontaneously Best Verbal Response: (5) Oriented Best Motor Response: (6) Obeys Commands Progress/Results/Core Measures Results/Orders My Orders Orders - SHARLA DOWNS MD Ct Head Wo (10/13/17 08:05) Pelvis With Left Hip 2-3 Views (10/13/17 08:05) Prednisone Tablet (Deltasone Tablet) (10/13/17 09:45) Albuterol/Ipra Inhalation Soln (Duoneb I (10/13/17 09:45) Svn Small Volume Nebulizer (10/13/17 09:32) Medications Given in ED Current Medications Medications Dose Ordered Sig/Katrina Route Start Time Stop Time Status Last Admin Dose Admin Albuterol/ Ipratropium 3 ml ONCE ONCE INH 10/13/17 09:45 10/13/17 09:46 DC 10/13/17 09:46 3 ML Prednisone 40 mg ONCE ONCE PO 10/13/17 09:45 10/13/17 09:46 DC 10/13/17 09:45 40 MG Vital Signs/I&O 10/13/17 10/13/17 07:50 09:46 Temp 97.1 Pulse 94 Resp 18 B/P (MAP) 144/84 (104) Pulse Ox 95 94 O2 Delivery Nasal Cannula O2 Flow Rate 1.00 Blood Pressure Mean: 104 Progress Progress Note : Progress Note Seen and evaluated. CT head ordered. X-ray left hip and pelvis ordered. Monitor patient. Duo neb and prednisone 40 mg by mouth ordered after she is complaining of COPD symptoms. Monitor patient. 1010: Patient feeling better. We will continue outpatient steroids and have her continue her doctor's appointment tomorrow. Discharged home with return precautions. Patient verbalize understanding instructions and agreement with plan. Diagnostic Imaging Diagonstic Imaging: CT Plain Films/CT/US/NM/MRI: head Comments VIA [facility] [place], [place] NAME: RUDDY GARLAND [facility] REC#: [id number] PT STATUS: REG ER : 1955 PHYSICIAN: SHARLA DOWNS MD ADMIT DATE: 10/13/17/ER Draft Date of Exam:10/13/17 CT HEAD WO PROCEDURE: CT head without contrast. TECHNIQUE: Multiple contiguous axial images were obtained through the brain without the use of intravenous contrast. INDICATION: Head pain after fall. FINDINGS: There is mild prominence of the ventricles and sulci. There is some mild chronic microvascular ischemic disease. There is no hydrocephalus. No midline shift. There is no intracranial mass, hemorrhage or extra-axial fluid collection. Calvarium is intact. Sinuses and mastoid air cells are clear. Impression: No acute intracranial abnormality. Atrophy and mild chronic microvascular ischemic disease. Dictated on workstation # [id number] Dict: 10/13/17 0853 Trans: 10/13/17 0857 [facility] [id number] Interpreted by: NATE PARKER MD Electronically signed by: Eligocheikh Imaging: Xray Plain Films/CT/US/NM/MRI: pelvis, hip Comments NAME: RUDDY GARLAND [facility] REC#: [id number] PT STATUS: REG ER : 1955 PHYSICIAN: SHARLA DOWNS MD ADMIT DATE: 10/13/17/ER Signed Date of Exam: 10/13/17 PELVIS WITH LEFT HIP 2-3 VIEWS INDICATION: Left hip pain after fall. COMPARISON: 11/18/2016. TECHNIQUE: AP pelvis with AP and frog-leg lateral views of left hip. FINDINGS: No acute fracture or malalignment involving the left hip. Mild degenerative arthritis of the left hip is stable since prior exam. No displaced fracture within the pelvis. The SI joints and symphysis pubis are normal in alignment. Right hip is also normal in alignment. IMPRESSION: No acute fracture or malalignment involving the left hip. Dictated by: Dictated on workstation # [id number] Dict: 10/13/1736 Trans: 10/13/17947 Interpreted by: GENO CORNEJO MD Electronically signed by: GENO CORNEJO MD 10/13/17947 Departure Impression Primary Impression: COPD with acute exacerbation Additional Impressions: Contusion of left hip Qualified Codes: S70.02XA - Contusion of left hip, initial encounter Minor head injury without loss of consciousness Qualified Codes: S09.90XA - Unspecified injury of head, initial encounter Disposition: 01 HOME, SELF-CARE Condition: Improved Departure-Patient Inst. Decision time for Depature: 10:15 Referrals: KIYA HERMAN MD (PCP/Family) Primary Care Physician Patient Instructions: COPD Including Emphysema (DC), Contusion (DC), Minor Head Injury (DC) Add. Discharge Instructions: All discharge instructions reviewed with patient and/or family. Voiced understanding. Take medications as directed. Follow-up with your doctor tomorrow scheduled. Return for worse pain, fever, vomiting, weakness, breathing problems or other concerns as needed. You may take Tylenol/acetaminophen 1000 mg every 8 hours as needed for pain. Copy Copies To 1: KIYA HERMAN MD, TIMOTHY D MD Oct 13, 2017 09:38
[2017-10-13] MEDS ORDERED: predniSONE 20 MG TAB PO ONE (09:45)
[2017-10-13] MEDS ORDERED: RT-ALBUTEROL/IPRATROPIUM 3 ML (DUONEB) VIAL INH ONE (09:45)
[2017-10-13 10:13] VITALS: BP 151/93
[2017-10-13] MEDS ORDERED: PRD20T PO (10:18)
== END 2017-10-13 10:26 | disposition home or self-care (01) ==
LOC: EDUNIT# 07:52 → ER 07:54
DX: S09.90XA Unspecified injury of head, initial encounter (principal); S70.02XA Contusion of left hip, initial encounter; J44.1 Chronic obstructive pulmonary disease with (acute) exacerbation; G47.30 Sleep apnea, unspecified; I42.9 Cardiomyopathy, unspecified; I25.10 Atherosclerotic heart disease of native coronary artery without angina pectoris; I10 Essential (primary) hypertension; E78.00 Pure hypercholesterolemia, unspecified; R40.2142 Coma scale, eyes open, spontaneous, at arrival to emergency department; R40.2252 Coma scale, best verbal response, oriented, at arrival to emergency department; R40.2362 Coma scale, best motor response, obeys commands, at arrival to emergency department; E11.9 Type 2 diabetes mellitus without complications; E03.9 Hypothyroidism, unspecified; F41.9 Anxiety disorder, unspecified; F32.9 Major depressive disorder, single episode, unspecified; Z88.0 Allergy status to penicillin; Z88.5 Allergy status to narcotic agent; Z87.440 Personal history of urinary (tract) infections; Z88.8 Allergy status to other drugs, medicaments and biological substances; Z82.49 Family history of ischemic heart disease and other diseases of the circulatory system; Z79.51 Long term (current) use of inhaled steroids; Z79.4 Long term (current) use of insulin; Z79.02 Long term (current) use of antithrombotics/antiplatelets; Z90.89 Acquired absence of other organs; Z95.5 Presence of coronary angioplasty implant and graft; Z87.891 Personal history of nicotine dependence; Z79.82 Long term (current) use of aspirin; W01.198A Fall on same level from slipping, tripping and stumbling with subsequent striking against other object, initial encounter; Y92.009 Unspecified place in unspecified non-institutional (private) residence as the place of occurrence of the external cause
CPT/HCPCS: 70450; 94640

== ENCOUNTER 2017-11-02 08:49 | Inpatient (IN) | payer MEDICARE, OTHER ==
[~2017-11-02] VITALS: Ht 163.8 cm; Wt 109.4 kg
[~2017-11-02 08:49] MED LIST changes: +AMLO5TAB7 PO; +METF-399 PO; -METF10002 PO
[2017-11-02 09:30] VITALS: BP 139/65
[2017-11-02 09:55] LABS: ABG BASE EXCESS 1.2 MMOL/L (-2.5-2.5); ABG OXYGEN SATURATION 86 % (94-100); ABG PCO2 44 MMHG (35-45); ABG PH 7.38 (7.37-7.43); ABG PO2 53 MMHG (79-93); ABG TCO2 26.9 MMOL/L (21.0-31.0); ALLENS TEST YES-POS; INSPIRED O2 0; PATIENT TEMP 99.5; VENTILATOR NO
[2017-11-02] MEDS ORDERED: NS IV 1000 ML 1,000 ML ONE (10:13)
[2017-11-02 10:38] LABS: BASOPHILS % (AUTO) 0 % (0-10); EOSINOPHILS # (AUTO) 0.2 10^3/uL (0.0-0.3); EOSINOPHILS % (AUTO) 2 % (0-10); HEMATOCRIT 29 % (35-52); HEMOGLOBIN 8.6 G/DL (11.5-16.0); LYMPHOCYTES # (AUTO) 1.4 X 10^3 (1.0-4.0); LYMPHOCYTES % (AUTO) 13 % (12-44); MEAN CORPUSCULAR HEMOGLOBIN 26 PG (25-34); MEAN CORPUSCULAR HGB CONC 29 G/DL (32-36); MEAN CORPUSCULAR VOLUME 89 FL (80-99); MEAN PLATELET VOLUME 9.3 FL (7.4-10.4); MONOCYTES # (AUTO) 0.3 X 10^3 (0.0-1.0); MONOCYTES % (AUTO) 3 % (0-12); NEUTROPHILS # (AUTO) 8.5 X 10^3 (1.8-7.8); NEUTROPHILS % (AUTO) 82 % (42-75); PLATELET COUNT 269 10^3/uL (130-400); RED BLOOD COUNT 3.29 10^6/uL (4.35-5.85); RED CELL DISTRIBUTION WIDTH 17.5 % (10.0-14.5); WHITE BLOOD COUNT 10.4 10^3/uL (4.3-11.0)
[2017-11-02 10:54] LABS: ALBUMIN 3.6 GM/DL (3.2-4.5); BILIRUBIN,TOTAL 0.4 MG/DL (0.1-1.0); CALCIUM 9.3 MG/DL (8.5-10.1); CREATININE SERUM 1.08 MG/DL (0.60-1.30); MAGNESIUM 1.6 MG/DL (1.8-2.4); PHOSPHORUS 4.2 MG/DL (2.3-4.7); POTASSIUM 4.4 MMOL/L (3.6-5.0); TOTAL PROTEIN 6.7 GM/DL (6.4-8.2)
[2017-11-02 12:00] VITALS: BP 153/68
[2017-11-02] MEDS: NS IV 1000 ML 1,000 ML IV SCH (14:35)
--- NOTE | 2017-11-02 14:44 | Diagnostic Imaging Report ---
PROCEDURE: US Venous Lower Ext Brendon. INDICATION: Chest pain, shortness of breath TECHNIQUE: Grayscale with color-flow and Doppler waveform evaluation of the bilateral lower extremity deep venous systems. CORRELATION STUDY: None FINDINGS: Color and grayscale sonographic images demonstrate no intraluminal defect within the visualized portion of the common femoral, superficial femoral and/or popliteal veins to suggest thrombus formation. These vessels demonstrate normal response to compression and augmentation. No soft tissue fluid collection. IMPRESSION: 1. Negative for deep venous thrombosis of either leg. Dictated by: Dictated on workstation # [id number]
[2017-11-02] MEDS ORDERED: RT-ALBUTEROL/IPRATROPIUM 3 ML (DUONEB) VIAL INH PRN (15:00)
[2017-11-02] MEDS: RT-ALBUTEROL/IPRATROPIUM 3 ML (DUONEB) VIAL INH SCH ×2 (15:09→19:15)
--- NOTE | 2017-11-02 15:33 | History & Physical-Hospitalist ---
History of Present Illness HPI/Chief Complaint The patient is a 61-year-old white female whom I have known for nearly 40 years. She presented to Dr. Gutierrez's office this morning with complaints of shortness of breath. He found her to be hypoxic and felt she should be admitted. She is a lifetime nonsmoker. There is a past history of vascular disease with a previous right carotid endarterectomy and ischemic heart disease with Dr. Peralta having performed angiography and stenting in 2016. She reports no recent chest pain. She states that she has had a cough but no sputum production. There has been no fever or sweats. She reports dyspnea with minimum exercise. Source: patient Exam Limitations: no limitations Date Seen 11/02/17 Time Seen by Provider: 15:32 Attending Physician Guillaume Gutierrez Floyd R MD Referring Physician Date of Admission Nov 02, 2017 at 09:33 Home Medications & Allergies Home Medications Reviewed patient Home Medication Reconciliation performed by pharmacy medication reconciliations cardiology technician and/or nursing. Patients Allergies have been reviewed. Allergies Allergies Coded Allergies Penicillins (Verified Allergy, Unknown, 10/22/06) acetaminophen (Verified Allergy, Unknown, 10/22/06) codeine (Verified Allergy, Unknown, UPSET STOMACH, 10/23/06) morphine (Unverified Allergy, Unknown, 12/12/14) propoxyphene (Verified Allergy, Unknown, 10/22/06) topiramate (Verified Allergy, Unknown, 10/22/06) Past Txsbqwn-Csmvxe-Dradbg Hx Past Med/Social Hx: Reviewed Nursing Past Med/Soc Hx Patient Social History 2nd Hand Smoke Exposure: No Recent Foreign Travel: No Contact w/other who traveled: No Recent Hopitalizations: No Immunizations Up To Date Tetanus Booster (TDap): Unknown Date of Pneumonia Vaccine: Jan 06, 2008 Date of Influenza Vaccine: Dec 27, 2015 Seasonal Allergies Seasonal Allergies: No Past Medical History Surgeries: Appendectomy, Coronary Stent, Gallbladder, Orthopedic, Thyroidectomy Currently Using CPAP: Yes Currently Using BIPAP: No Cardiac: Cardiomyopathy, Coronary Artery Disease, High Cholesterol, Hypertension 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: No Sexually Transmitted Disease: No Menopausal Genitourinary: UTI-Chronic Musculoskeletal: Arthritis Endocrine: Diabetes, Insulin dep, Hypothyroidsim Psychosocial: Anxiety, Depression History of Blood Disorders: No Adverse Reaction to Blood Anthony: No Family History Alzheimer's disease G8 SISTER Diabetes mellitus 19 FATHER Hypertension 19 FATHER 19 MOTHER Myocardial infarction 19 FATHER 19 MOTHER Neoplasm G8 SISTER Review of Systems Constitutional: see HPI EENTM: no symptoms reported Respiratory: see HPI, cough, dyspnea on exertion, short of breath Cardiovascular: no symptoms reported Gastrointestinal: no symptoms reported Genitourinary: no symptoms reported : No Musculoskeletal: no symptoms reported Skin: no symptoms reported Psychiatric/Neurological: No Symptoms Reported Physical Exam Physical Exam Vital Signs Capillary Refill : Height, Weight, BMI Height: 5'4.50" Weight: 241lbs. 4.0oz. 109.858585cx; 40.8 BMI Method:Stated General Appearance: Anxious Eyes: Bilateral Eye Normal Inspection HEENT: Normal ENT Inspection Neck: Full Range of Motion, Normal Inspection, Non Tender, Supple, Carotid Bruit Respiratory: Chest Non Tender, Lungs Clear, Normal Breath Sounds, No Accessory Muscle Use, No Respiratory Distress Cardiovascular: Regular Rate, Rhythm, No Edema, No Gallop, No JVD, No Murmur, Normal Peripheral Pulses Gastrointestinal: Normal Bowel Sounds, No Organomegaly, No Pulsatile Mass, Non Tender, Soft Extremity: Normal Capillary Refill, Normal Inspection, Normal Range of Motion, Non Tender, No Calf Tenderness, No Pedal Edema Neurologic/Psychiatric: Alert, Oriented x3, No Motor/Sensory Deficits, Normal Mood/Affect Skin: Normal Color, Warm/Dry Lymphatic: No Adenopathy Results Results/Procedures Labs Patient resulted labs reviewed. Assessment/Plan Admission Diagnosis Hypoxia 2.ASHD. 3.ASVD. Admission Status: Observation Assessment and Plan Chest x-ray. Nebulizer treatment. Pulmonology consult RUSLAN MADRID MD Nov 02, 2017 15:33
[2017-11-02 15:48] VITALS: BP 130/61
[2017-11-02] MEDS ORDERED: SULF-222 PO (16:21)
[2017-11-02] MEDS ORDERED: LORA1TAB PO ×2 (16:21→16:32)
[2017-11-02] MEDS ORDERED: MONT10TA21 PO (16:32)
[2017-11-02] MEDS ORDERED: TRAM50TA2 PO (16:32)
[2017-11-02] MEDS ORDERED: VITA1CAP PO (16:32)
[2017-11-02] MEDS ORDERED: BUDE10.2 IH (16:32)
[2017-11-02] MEDS ORDERED: METF-399 PO (16:32)
[2017-11-02] MEDS ORDERED: LOSA50TA7 PO (16:32)
[2017-11-02] MEDS ORDERED: CETI10TA20 PO (16:32)
[2017-11-02] MEDS ORDERED: ATOR10TA66 PO (16:32)
[2017-11-02] MEDS ORDERED: ALBU18HF2 INH (16:32)
[2017-11-02] MEDS ORDERED: LEVO100T7 PO (16:32)
[2017-11-02] MEDS ORDERED: CYCL10TA9 PO (16:32)
[2017-11-02] MEDS ORDERED: GABA-490 PO (16:32)
[2017-11-02] MEDS ORDERED: AMIT75TA2 PO (16:32)
[2017-11-02] MEDS ORDERED: INSU200I4 SC (16:32)
[2017-11-02] MEDS ORDERED: ACET-2267 PO (16:32)
[2017-11-02] MEDS ORDERED: GLIP5TAB13 PO (16:32)
[2017-11-02] MEDS ORDERED: METO-387 PO (16:32)
[2017-11-02] MEDS ORDERED: AMLO10TA6 PO (16:32)
[2017-11-02] MEDS ORDERED: MULT-35 PO (16:32)
[2017-11-02] MEDS ORDERED: ASPI-983 PO (16:32)
[2017-11-02] MEDS ORDERED: CHOL5000 PO (16:32)
[2017-11-02] MEDS ORDERED: LORazepam 1 MG (ATIVAN) TAB PO PRN (16:45)
[2017-11-02] MEDS ORDERED: RT-ALBUTEROL SULF 2.5 MG/3 ML PRE-MIX VIAL INH PRN (16:45)
[2017-11-02] MEDS ORDERED: NON-FORMULARY MEDICATION 1 EA EA (Acetaminophen (Tylenol Extra Strength) 1,000 MG) PO PRN (16:45)
[2017-11-02] MEDS ORDERED: MECLIZINE 25 MG (ANTIVERT) TAB PO PRN (16:45)
[2017-11-02] MEDS ORDERED: CYCLOBENZAPRINE 10 MG (FLEXERIL) TAB PO PRN (16:45)
--- NOTE | 2017-11-02 17:09 | Consultation-Cardiology ---
HPI-Cardiology Cardiology Consultation Date of Consultation 11/02/17 Date of Admission Time Seen by Provider: 17:04 Indication: Shortness of breath HPI 61 years old lady with history of coronary artery disease, carotid stenosis, hypertension hyperlipidemia. Patient was in her usual state of health, has been having increasing dyspnea on exertion which has been worsening. She was seen by Dr. Gutierrez and referred for direct admission. She has been compliant with medication. Having mild pedal edema. She was seen by Dr. Vargas in [place] and had a cardiac catheterization in [facility] about 3 months ago and she was told that there is no significant obstructive disease. Home Medications & Allergies Allergies: Coded Allergies: Penicillins (Verified Allergy, Unknown, 10/22/06) acetaminophen (Verified Allergy, Unknown, 10/22/06) codeine (Verified Allergy, Unknown, UPSET STOMACH, 10/23/06) morphine (Unverified Allergy, Unknown, 12/12/14) propoxyphene (Verified Allergy, Unknown, 10/22/06) topiramate (Verified Allergy, Unknown, 10/22/06) Home Medication List Reviewed: Yes [id number]-[id number] Hx Patient Social History Marital Status: 2nd Hand Smoke Exposure: No Recent Foreign Travel: No Recent Hopitalizations: No Immunizations Up To Date Tetanus Booster (TDap): Unknown Date of Pneumonia Vaccine: Jan 06, 2008 Date of Influenza Vaccine: Dec 27, 2015 Past Medical History Past medical history as described below Family Medical History Family History: Alzheimer's disease G8 SISTER Diabetes mellitus 19 FATHER Hypertension 19 FATHER 19 MOTHER Myocardial infarction 19 FATHER 19 MOTHER Neoplasm G8 SISTER Review of Systems Constitutional: no symptoms reported, see HPI EENTM: see HPI, no symptoms reported Respiratory: see HPI, dyspnea on exertion, short of breath Cardiovascular: see HPI; No chest pain; edema; No Hx of Intervention, No palpitations, No syncope, No vascular heart diseas, No other Gastrointestinal: no symptoms reported, see HPI Genitourinary: no symptoms reported, see HPI Musculoskeletal: no symptoms reported, see HPI Skin: no symptoms reported, see HPI Psychiatric/Neurological: No Symptoms Reported, See HPI Reviewed Test Results Reviewed Test Results Lab Laboratory Tests Test 11/02/17 09:49 11/02/17 10:20 11/02/17 16:26 Range/Units Blood Gas Puncture Site R BRACHIAL Blood Gas Patient Temperature 99.5 Arterial Blood pH 7.38 7.37-7.43 Arterial Blood Partial Pressure CO2 44 35-45 MMHG Arterial Blood Partial Pressure O2 53 L 79-93 MMHG Arterial Blood HCO3 26 23-27 MMOL/L Arterial Blood Total CO2 26.9 21.0-31.0 MMOL/L Arterial Blood Oxygen Saturation 86 L 94-100 % Arterial Blood Base Excess 1.2 -2.5-2.5 MMOL/L Derian Test YES-POS Blood Gas Ventilator Setting NO Blood Gas Inspired Oxygen 0 White Blood Count 10.4 4.3-11.0 10^3/uL Red Blood Count 3.29 L 4.35-5.85 10^6/uL Hemoglobin 8.6 L 11.5-16.0 G/DL Hematocrit 29 L 35-52 % Mean Corpuscular Volume 89 80-99 FL Mean Corpuscular Hemoglobin 26 25-34 PG Mean Corpuscular Hemoglobin Concent 29 L 32-36 G/DL Red Cell Distribution Width 17.5 H 10.0-14.5 % Platelet Count 269 130-400 10^3/uL Mean Platelet Volume 9.3 7.4-10.4 FL Neutrophils (%) (Auto) 82 H 42-75 % Lymphocytes (%) (Auto) 13 12-44 % Monocytes (%) (Auto) 3 0-12 % Eosinophils (%) (Auto) 2 0-10 % Basophils (%) (Auto) 0 0-10 % Neutrophils # (Auto) 8.5 H 1.8-7.8 X 10^3 Lymphocytes # (Auto) 1.4 1.0-4.0 X 10^3 Monocytes # (Auto) 0.3 0.0-1.0 X 10^3 Eosinophils # (Auto) 0.2 0.0-0.3 10^3/uL Basophils # (Auto) 0.0 0.0-0.1 10^3/uL D-Dimer 1.02 H 0.00-0.49 UG/ML Sodium Level 139 135-145 MMOL/L Potassium Level 4.4 3.6-5.0 MMOL/L Chloride Level 104 98-107 MMOL/L Carbon Dioxide Level 25 21-32 MMOL/L Anion Gap 10 5-14 MMOL/L Blood Urea Nitrogen 12 7-18 MG/DL Creatinine 1.08 0.60-1.30 MG/DL Estimat Glomerular Filtration Rate 51 BUN/Creatinine Ratio 11 Glucose Level 212 H 70-105 MG/DL Calcium Level 9.3 8.5-10.1 MG/DL Corrected Calcium 9.6 8.5-10.1 MG/DL Phosphorus Level 4.2 2.3-4.7 MG/DL Magnesium Level 1.6 L 1.8-2.4 MG/DL Total Bilirubin 0.4 0.1-1.0 MG/DL Aspartate Amino Transf (AST/SGOT) 15 5-34 U/L Alanine Aminotransferase (ALT/SGPT) 14 0-55 U/L Alkaline Phosphatase 122 40-136 U/L Troponin I < 0.30 < 0.30 <0.30 NG/ML B-Type Natriuretic Peptide 322.5 H <100.0 PG/ML Total Protein 6.7 6.4-8.2 GM/DL Albumin 3.6 3.2-4.5 GM/DL Physical Exam Vital Signs Vital Signs - First Documented 11/02/17 09:30 Temp 99.5 Pulse 101 Resp 18 B/P (MAP) 139/65 (89) Pulse Ox 94 O2 Delivery Nasal Cannula O2 Flow Rate 2.00 Capillary Refill : Height, Weight, BMI Height: 5'4.50" Weight: 241lbs. 4.0oz. 109.444713en; 40.8 BMI Method:Stated General Appearance: No Apparent Distress, WD/WN Eyes: Bilateral Eye Normal Inspection, Bilateral Eye PERRL, Bilateral Eye EOMI HEENT: PERRL/EOMI, TMs Normal, Normal ENT Inspection, Pharynx Normal Neck: Full Range of Motion, Normal Inspection, Non Tender, Supple, Carotid Bruit Respiratory: Chest Non Tender, Lungs Clear, Normal Breath Sounds, No Accessory Muscle Use, No Respiratory Distress Cardiovascular: Regular Rate, Rhythm, No Edema, No Gallop, No JVD, No Murmur, Normal Peripheral Pulses Gastrointestinal: Normal Bowel Sounds, No Organomegaly, No Pulsatile Mass, Non Tender, Soft Back: Normal Inspection, No CVA Tenderness, No Vertebral Tenderness Extremity: Normal Capillary Refill, Normal Inspection, Normal Range of Motion, Non Tender, No Calf Tenderness, No Pedal Edema Neurologic/Psychiatric: Alert, Oriented x3, No Motor/Sensory Deficits, Normal Mood/Affect Skin: Normal Color, Warm/Dry Lymphatic: No Adenopathy A/P-Cardiology Admission Diagnosis Shortness of breath Coronary artery disease Peripheral arterial disease Hypertension Assessment/Plan Shortness of breath, worsening recently, acute exacerbation of COPD. Elevation of BNP. I will evaluate 2-D echocardiogram, previously she had abnormal echocardiogram. History of chest pain, musculoskeletal. Currently not having any active pain. Coronary artery disease, status post cardiac catheterization done on December had 90 percent stenosis in the OM, stenting using 2.516 mm Promus Premier stent with excellent results expanded to 2.65, reporting having a cardiac catheterization done at [facility] about 3 months ago and she was told that she has [id number] disease nonobstructive disease. I'll try to obtain copy of the results. Carotid artery stenosis, had carotid endarterectomy done by Dr. Victoria in 2016. Lower extremity pain, seen Dr. Pruett in the past, had ultrasound which was negative, MARICEL is 0.86 on the right and 0.95 on the left done on November 13, 2015. Continue to monitor Hypertension, restart home medication monitor blood pressure Hyperlipidemia, monitor lipids BMI is 40, we discussed weight loss and exercise. History of chronic venous insufficiency, COPD, followed and managed by Dr. Gutierrez Diabetes mellitus, followed and managed by primary care physician Degenerative joint disease, spinal stenosis, scoliosis, limiting her exercise ability. Systemic lupus erythematous. Followed and managed by primary care physician. Clinical Quality Measures DVT/VTE Risk/Contraindication: Risk Factor Score Per Nursin RFS Level Per Nursing on Admit: 3=High NGHIA GUTIERREZ MD Nov 02, 2017 5:09 pm
[2017-11-02] MEDS ORDERED: ACETAMINOPHEN 500 MG TAB (TYLENOL) PO PRN (17:30)
[2017-11-02] MEDS: RT-ADVAIR HFA 115/21 MCG PER PUFF IH SCH (19:16)
[2017-11-02] MEDS: metFORMIN 500 MG (GLUCOPHAGE) TAB PO SCH (19:27)
[2017-11-02] MEDS ORDERED: inSUlin ASPART (NovoLOG) 1 UNIT/0.01 ML (CHARGE PER UNIT) SC SCH (19:30)
[2017-11-02 20:19] VITALS: BP 138/64
[2017-11-02] MEDS ORDERED: NON-FORMULARY MEDICATION 1 EA EA (Amitriptyline HCl 75 MG) PO SCH (21:00)
[2017-11-02] MEDS ORDERED: inSUlin DETERMIR 1 UNIT/0.01 ML (LEVEMIR) CHARGE PER UNIT SQ SCH (21:00)
[2017-11-02] MEDS ORDERED: NON-FORMULARY MEDICATION 1 EA EA (Montelukast Sodium (Singulair) 10 MG) PO SCH (21:00)
[2017-11-02] MEDS ORDERED: NON-FORMULARY MEDICATION 1 EA EA (Budesonide/Formoterol Fumarate (Symbicort 160-4.5 Mcg In IH SCH ×2 (21:00)
[2017-11-02] MEDS ORDERED: NON-FORMULARY MEDICATION 1 EA EA (Metformin HCl 1,000 MG) PO SCH (21:00)
[2017-11-02] MEDS: MONTELUKAST 10 MG (SINGULAIR) TAB PO SCH (21:21)
[2017-11-02] MEDS: AMITRIPTYLINE 25 MG (ELAVIL) TAB PO SCH (21:21)
[2017-11-02] MEDS: GABAPENTIN 400 MG (NEURONTIN) CAP PO SCH (21:21)
[2017-11-02] MEDS: LORazepam 1 MG (ATIVAN) TAB PO SCH (21:22)
[2017-11-02] MEDS: FLUTICASONE NASAL SPRAY (FLONASE) 16 GM BTL NS SCH (21:22)
[2017-11-02 23:24] VITALS: BP 122/57
[2017-11-03] MEDS: RT-ALBUTEROL/IPRATROPIUM 3 ML (DUONEB) VIAL INH SCH ×4 (02:31→19:16)
[2017-11-03 04:00] VITALS: BP 131/58
[2017-11-03] MEDS: NS IV 1000 ML 1,000 ML IV SCH (04:48)
[2017-11-03 05:04] LABS: BASOPHILS # (AUTO) 0.1 10^3/uL (0.0-0.1); BASOPHILS % (AUTO) 1 % (0-10); EOSINOPHILS # (AUTO) 0.3 10^3/uL (0.0-0.3); EOSINOPHILS % (AUTO) 3 % (0-10); HEMATOCRIT 29 % (35-52); HEMOGLOBIN 8.7 G/DL (11.5-16.0); LYMPHOCYTES # (AUTO) 1.7 X 10^3 (1.0-4.0); LYMPHOCYTES % (AUTO) 19 % (12-44); MEAN CORPUSCULAR HEMOGLOBIN 27 PG (25-34); MEAN CORPUSCULAR HGB CONC 30 G/DL (32-36); MEAN CORPUSCULAR VOLUME 89 FL (80-99); MEAN PLATELET VOLUME 9.1 FL (7.4-10.4); MONOCYTES # (AUTO) 0.3 X 10^3 (0.0-1.0); MONOCYTES % (AUTO) 3 % (0-12); NEUTROPHILS # (AUTO) 6.7 X 10^3 (1.8-7.8); NEUTROPHILS % (AUTO) 74 % (42-75); PLATELET COUNT 263 10^3/uL (130-400); RED CELL DISTRIBUTION WIDTH 17.1 % (10.0-14.5)
[2017-11-03 05:23] LABS: ALBUMIN 3.6 GM/DL (3.2-4.5); BILIRUBIN,TOTAL 0.4 MG/DL (0.1-1.0); CALCIUM 9.3 MG/DL (8.5-10.1); CREATININE SERUM 1.08 MG/DL (0.60-1.30); MAGNESIUM 1.8 MG/DL (1.8-2.4); PHOSPHORUS 4.7 MG/DL (2.3-4.7); POTASSIUM 4.3 MMOL/L (3.6-5.0); TOTAL PROTEIN 6.8 GM/DL (6.4-8.2)
[2017-11-03] MEDS: LEVOTHYROXINE 100 MCG (LEVOTHROID) TAB PO SCH (06:09)
[2017-11-03] MEDS: glipiZIDE 5 MG (GLUCOTROL) TAB PO SCH (06:09)
[2017-11-03] MEDS: metFORMIN 500 MG (GLUCOPHAGE) TAB PO SCH ×2 (06:09→17:01)
[2017-11-03 08:00] VITALS: BP 135/61
--- NOTE | 2017-11-03 08:00 | Cardiology Progress Note ---
Subjective Date Seen by Provider: Nov 03, 2017 Time Seen by Provider: 07:59 Subjective/Events-last exam Patient is laying down in bed, breathing better, denied any chest pain. Reporting mild improvement, complaining of dysuria Review of Systems General: No Chills, No Night Sweats, No Fatigue, No Malaise, No Appetite, No Other HEENT: No Head Aches, No Visual Changes, No Eye Pain, No Ear Pain, No Dysphasia , No Sinus Congestion, No Post Nasal Drip, No Sore Throat, No Other Pulmonary: Dyspnea; No Cough, No Pleuritic Chest Pain, No Other Cardiovascular: Edema; No: Chest Pain, Palpitations, Orthopnea, Paroxysmal Noc. Dyspnea, Lt Headedness, Other Objective-Cardiology Exam Last Set of Vital Signs Vital Signs 11/03/17 04:00 Temp 96.5 Pulse 92 Resp 20 B/P (MAP) 131/58 (82) Pulse Ox 96 O2 Delivery Nasal Cannula O2 Flow Rate 2.00 Capillary Refill : I&O Intake and Output 11/03/17 00:00 Intake Total 620 ml Output Total 900 ml Balance -280 ml Intake Oral 620 ml Output Urine Total 900 ml # Voids 2 Daily Weight Change No General: Alert, Oriented X3, Cooperative HEENT: Atraumatic, PERRLA Neck: Supple, No JVD, No Thyromegaly Lungs: Clear to Auscultation, Normal Air Movement Heart: Regular Rate, Normal S1, Normal S2, No Murmurs Abdomen: Normal Bowel Sounds, Soft, No Tenderness, No Hepatosplenomegaly, No Masses Extremities: No Clubbing, No Cyanosis, No Edema, Normal Pulses, No Tenderness/ Swelling Skin: No Rashes, No Breakdown, No Significant Lesion Neuro: Normal Gait, Normal Speech, Strength at 5/5 X4 Ext, Normal Tone, Sensation Intact Psych/Mental Status: Mental Status NL, Mood NL Results Lab Laboratory Tests 11/02/17 10:20 11/03/17 04:35 A/P-Cardiology Admission Diagnosis Shortness of breath Coronary artery disease Peripheral arterial disease Hypertension Assessment/Plan Acute exacerbation of COPD, improving slowly. Echocardiogram showed normal left ventricular size and function with ejection fraction 55-60 percent, moderate mitral regurgitation, heavily calcified mitral valve, pulmonary artery pressure of 15-20 mmHg. History of chest pain, musculoskeletal. Currently not having any active pain. Dysuria, I will evaluate urine analysis Coronary artery disease, status post cardiac catheterization done on December had 90 percent stenosis in the OM, stenting using 2.516 mm Promus Premier stent with excellent results expanded to 2.65, reporting having a cardiac catheterization done at [facility] about 3 months ago and she was told that she has [id number] disease nonobstructive disease. I'll try to obtain copy of the results. Carotid artery stenosis, had carotid endarterectomy done by Dr. Victoria in 2016. Lower extremity pain, seen Dr. Pruett in the past, had ultrasound which was negative, MARICEL is 0.86 on the right and 0.95 on the left done on November 13, 2015. Continue to monitor Hypertension, continue to monitor blood pressure Hyperlipidemia, monitor lipids BMI is 40, we discussed weight loss and exercise. History of chronic venous insufficiency, COPD, followed and managed by Dr. Gutierrez Diabetes mellitus, followed and managed by primary care physician Degenerative joint disease, spinal stenosis, scoliosis, limiting her exercise ability. Systemic lupus erythematous. Followed and managed by primary care physician. Clinical Quality Measures DVT/VTE Risk/Contraindication: Risk Factor Score Per Nursin RFS Level Per Nursing on Admit: 3=High NGHIA GUTIERREZ MD Nov 03, 2017 08:00
--- NOTE | 2017-11-03 08:07 | Pulmonary Consultation ---
History of Present Illness History of Present Illness Date of Consultation 11/03/17 08:05 Time Seen by Provider: 09:33 Date of Admission Reason for Visit: Shortness of breath History of Present Illness 61yo with hx of CAD, caroted stenosis, morbid obesity directly admitted from my office secondary to worsening SOB and midsternal sharp 10/10 CP radiating to left sholder. She has had similar episodes in the past. She also has increased bilateral edema. I am consulted for pulmonary management. Allergies and Home Medications Allergies Coded Allergies: Penicillins (Verified Allergy, Unknown, 10/22/06) acetaminophen (Verified Allergy, Unknown, 10/22/06) codeine (Verified Allergy, Unknown, UPSET STOMACH, 10/23/06) morphine (Unverified Allergy, Unknown, 12/12/14) propoxyphene (Verified Allergy, Unknown, 10/22/06) topiramate (Verified Allergy, Unknown, 10/22/06) Home Medications Acetaminophen 500 Mg Tablet, 1,000 MG PO Q6H PRN for PAIN-MILD, (Reported) Albuterol Sulfate 18 Gm Hfa.aer.ad, 2 PUFF INH Q4H PRN for SHORTNESS OF BREATH, (Reported) Amitriptyline HCl 75 Mg Tablet, 75 MG PO HS, (Reported) Amlodipine Besylate 10 Mg Tablet, 5 MG PO DAILY, (Reported) Aspirin 81 Mg Tablet.dr, 81 MG PO DAILY, (Reported) Atorvastatin Calcium 10 Mg Tablet, 10 MG PO DAILY, (Reported) Budesonide/Formoterol Fumarate 10.2 Gm Hfa.aer.ad, 2 PUFF IH BID, (Reported) Cetirizine HCl 10 Mg Tablet, 10 MG PO DAILY, (Reported) Cholecalciferol (Vitamin D3) 5,000 Unit Capsule, 5,000 UNIT PO BID, (Reported) Cyclobenzaprine HCl 10 Mg Tablet, 10 MG PO BID PRN for MUSCLE SPASMS, (Reported) Fluticasone Propionate 16 Gm [place].susp, 2 SPRAYS NS HS, (Reported) Gabapentin 400 Mg Capsule, 400 MG PO TID, (Reported) Glipizide 5 Mg Tablet, 5 MG PO DAILY, (Reported) Insulin Degludec 200 Unit/1 Ml Insuln.pen, 12 UNITS SC BID, (Reported) Levothyroxine Sodium 100 Mcg Tablet, 100 MCG PO DAILY, (Reported) Lorazepam 1 Mg Tablet, 1 MG PO DAILY PRN for ANXIETY, (Reported) Lorazepam 1 Mg Tablet, 1 MG PO HS, (Reported) Losartan Potassium 50 Mg Tablet, 50 MG PO DAILY, (Reported) Meclizine HCl 25 Mg Tablet, 25 MG PO Q6H PRN for DIZZINESS Prescribed by: DAVIN ADHIKARI on 04/07/16 0323 Metformin HCl 1,000 Mg Tablet, 1,000 MG PO BID, (Reported) Metoprolol Succinate 25 Mg Tab.er.24h, 25 MG PO DAILY, (Reported) Montelukast Sodium 10 Mg Tablet, 10 MG PO HS, (Reported) Multivitamin 1 Each Tablet, 1 TAB PO DAILY, (Reported) Tramadol HCl 50 Mg Tablet, 50 MG PO Q4H PRN for PAIN-MODERATE, (Reported) Vitamin B Complex 1 Each Capsule, 1 CAP PO DAILY, (Reported) Past Lzfdwll-Sbrwvw-Rkyavv Hx Patient Social History Alcohol Use: Denies Use Recreational Drug Use: No Smoking Status: Never a Smoker 2nd Hand Smoke Exposure: No Recent Foreign Travel: No Contact w/Someone Who Travel: No Recent Hopitalizations: No Immunizations Up To Date Tetanus Booster (TDap): Unknown Date of Pneumonia Vaccine: Feb 05, 2018 Date of Influenza Vaccine: Dec 27, 2015 Seasonal Allergies Seasonal Allergies: No Past Medical History Surgeries: Yes (FOOT) Appendectomy, Coronary Stent, Gallbladder, Orthopedic, Thyroidectomy Respiratory: Yes (CPAP) Asthma, Sleep Apnea, COPD Currently Using CPAP: Yes Currently Using BIPAP: No Cardiac: Yes (STENT) Cardiomyopathy, Coronary Artery Disease, High Cholesterol, Hypertension Neurological: No 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 Disorders: No CASING 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 History: Menopausal Sexually Transmitted Disease: No UTI-Chronic Gastrointestinal: No Musculoskeletal: Yes (ARTHRITIS, LUPUS) Arthritis Endocrine: Yes Diabetes, Insulin dep, Hypothyroidsim HEENT: No Cancer: No Psychosocial: Yes Anxiety, Depression Integumentary: No Blood Disorders: No Adverse Reaction/Blood Tranf: No Family Medical History Alzheimer's disease G8 SISTER Diabetes mellitus 19 FATHER Hypertension 19 FATHER 19 MOTHER Myocardial infarction 19 FATHER 19 MOTHER Neoplasm G8 SISTER Review of Systems Time Seen by Provider: 09:35 Constitutional: No: Fever, Sweats, Weakness, Malaise, Other Respiratory: Cough, Shortness of breath Cardiovascular: Chest Pain, Palpitations, Paroxysmal Noc. Dyspnea, Lt Headedness Gastrointestinal: Nausea; No: Abdominal Pain, Diarrhea, Constipation Genitourinary: No Dysuria, No Frequency, No Incontinence, No Hematuria, No Retention, No Other Neurological: Weakness Sepsis Event Evaluation Height, Weight, BMI Height: 5'4.50" Weight: 241lbs. 4.0oz. 109.968400rg; 40.8 BMI Method:Stated Exam Exam Vital Signs Date Time Temp Pulse Resp B/P (MAP) Pulse Ox O2 Delivery O2 Flow Rate FiO2 11/03/17 04:00 96.5 92 20 131/58 (82) 96 Nasal Cannula 2.00 11/03/17 02:31 94 Nasal Cannula 2.00 11/03/17 01:00 88 11/02/17 23:24 99.0 91 20 122/57 (78) 96 Nasal Cannula 2.00 11/02/17 20:19 97.6 95 18 138/64 (88) 96 Nasal Cannula 2.00 11/02/17 20:00 Nasal Cannula 2.00 11/02/17 19:16 92 Nasal Cannula 2.00 11/02/17 19:16 92 Nasal Cannula 2.00 11/02/17 19:00 91 11/02/17 15:48 98.0 92 14 130/61 (84) 95 11/02/17 15:09 93 Nasal Cannula 2.00 11/02/17 13:00 94 11/02/17 12:00 98.4 97 18 153/68 (96) 100 Nasal Cannula 2.00 11/02/17 10:32 Nasal Cannula 3.00 11/02/17 10:31 96 11/02/17 09:55 84 Room Air 11/02/17 09:30 99.5 101 18 139/65 (89) 94 Nasal Cannula 2.00 I & O 11/03/17 07:00 Intake Total 1720 ml Output Total 1550 ml Balance 170 ml Height & Weight Height: 5'4.50" Weight: 241lbs. 4.0oz. 109.945975gr; 40.8 BMI Method:Stated General Appearance: No Apparent Distress, WD/WN HEENT: PERRL/EOMI, TMs Normal, Normal ENT Inspection, Pharynx Normal Neck: Full Range of Motion, Normal Inspection, Non Tender, Supple, Carotid Bruit Respiratory: Chest Non Tender, Lungs Clear, Normal Breath Sounds, No Accessory Muscle Use, No Respiratory Distress Cardiovascular: Regular Rate, Rhythm, No Edema, No Gallop, No JVD, No Murmur, Normal Peripheral Pulses Extremity: Normal Capillary Refill, Normal Inspection, Normal Range of Motion, Non Tender, No Calf Tenderness, No Pedal Edema Neurologic/Psychiatric: Alert, Oriented x3, No Motor/Sensory Deficits, Normal Mood/Affect Skin: Normal Color, Warm/Dry Lymphatic: No Adenopathy Results Lab Laboratory Tests 11/02/17 10:20 11/03/17 04:35 Assessment/Plan Assessment/Plan COPDAE -Steroids, SVNs -Check CT of chest CP, CAD -Dr. Peralta following LARRY MURILLO DO Nov 03, 2017 08:07
[2017-11-03] MEDS ORDERED: NON-FORMULARY MEDICATION 1 EA EA (Amlodipine Besylate 5 MG) PO SCH ×2 (09:00)
[2017-11-03] MEDS ORDERED: ASPIRIN E.C. 81 MG (ECOTRIN) TAB PO SCH (09:00)
[2017-11-03] MEDS ORDERED: NON-FORMULARY MEDICATION 1 EA EA (Losartan Potassium 50 MG) PO SCH ×2 (09:00)
[2017-11-03] MEDS ORDERED: ATORVASTATIN 10 MG (LIPITOR) TABLET PO SCH (09:00)
[2017-11-03] MEDS ORDERED: NON-FORMULARY MEDICATION 1 EA EA (Cetirizine HCl (Zyrtec) 10 MG) PO SCH ×2 (09:00)
[2017-11-03] MEDS: GABAPENTIN 400 MG (NEURONTIN) CAP PO SCH ×3 (09:10→21:14)
[2017-11-03] MEDS: LOSARTAN 50 MG (COZAAR) TAB PO SCH (09:10)
[2017-11-03] MEDS: ASPIRIN E.C. 81 MG (ECOTRIN) TAB PO SCH (09:10)
[2017-11-03] MEDS: amLODIPine 5 MG (NORVASC) TAB PO SCH (09:10)
[2017-11-03] MEDS: ATORVASTATIN 10 MG (LIPITOR) TABLET PO SCH (09:10)
[2017-11-03] MEDS: LORATADINE (CLARITIN) 10 MG TAB PO SCH (09:10)
[2017-11-03] MEDS: RT-ADVAIR HFA 115/21 MCG PER PUFF IH SCH ×2 (09:20→19:16)
[2017-11-03 10:29] LABS: BILIRUBIN,URINE NEGATIVE (NEGATIVE); CLARITY,URINE CLEAR; COLOR,URINE YELLOW; GLUCOSE, URINE (UA) NEGATIVE (NEGATIVE); KETONES,URINE NEGATIVE (NEGATIVE); LEUKOCYTE ESTERASE ,URINE 1+ (NEGATIVE); NITRITE,URINE NEGATIVE (NEGATIVE); PH,URINE 7 (5-9); PROTEIN,URINE NEGATIVE (NEGATIVE); UROBILINOGEN,URINE NORMAL (NORMAL)
[2017-11-03] MEDS ORDERED: PATIENT MAY USE OWN MED,SINGLE MED PO SCH (10:30)
[2017-11-03] MEDS: INSULIN DEGLUDEC 200 UNIT/ML SC SCH ×2 (10:37→21:15)
[2017-11-03 10:43] LABS: BACTERIA,URINE NEGATIVE /HPF; YEAST,URINE FEW /HPF
[2017-11-03 12:00] VITALS: BP 132/59
[2017-11-03] MEDS ORDERED: IOHEXOL 350 MG/ML 150 ML (OMNIPAQUE 350) VIAL IV ONE (12:45)
[2017-11-03] MEDS ORDERED: NS 250 ML (IVPB) BAG IV ONE (12:45)
--- NOTE | 2017-11-03 13:58 | Progress Note-Hospitalist ---
Progress Note Progress Notes/Assess & Plan Date Seen 11/03/17 Time Seen by Provider: 13:41 Assessment & Plan The workup continues. It is noted that her PCO2 was 53 on room air. Is also noted that her hemoglobin is 8.7. The cause of her anemia is not completely clear. Echocardiogram is pending. It is not known whether she has had previous pulmonary function testing. She reports she is comfortable today. She is not clear about the etiology of her anemia. She reports that in 2016 when she had her carotid endarterectomy she was anemic and required a transfusion. Physical exam: She is in the bedside chair. Lungs are clear to auscultation. CV is regular without murmur. Ankles show no pedal edema. Impression: Hypoxia etiology unknown Plan: CT scan today. As she has not previously had any anemia workup I will consult hematology. RUSLAN MADRID MD Nov 03, 2017 13:58
--- NOTE | 2017-11-03 15:37 | Diagnostic Imaging Report ---
PROCEDURE: CT angiography of the chest with contrast. TECHNIQUE: Multiple contiguous axial images were obtained through the chest after uneventful bolus administration of intravenous contrast. Reconstructed CTA MIP acquisitions were also performed. INDICATION: Shortness of breath. FINDINGS: The previous CT chest exam performed on 03/05/2015 failed to show any sign of an acute cardiopulmonary abnormality. On this study, the pulmonary arteries were not fully opacified. There is no definite defect to suggest a pulmonary embolus. There are areas of low density interposed between the main pulmonary arteries and the bronchi. These findings were also present on the prior study and have not changed. The aorta is not abnormally dilated, and there is no sign of a dissection. The heart is enlarged, and there are coronary artery calcifications evident. In the interval since the prior study, vague ground-glass densities have developed throughout both lungs. There is also now a small amount of fluid and/or pleural thickening in each lung base. These findings are nonspecific but could be related to mild acute pulmonary edema. There is no consolidated pneumonia identified, however. The previous exam did note chronic mediastinal adenopathy. On this study, several of the nodes involving the mediastinum have increased in size since the prior exam. The 1.2 cm subcarinal node now measures 1.5 CM. The 0.8 CM pretracheal node on the right is now estimated to be 1.2 cm. The 0.9 cm lymph node in the superior mediastinum on the right now measures 1.1 cm. These nodes are nonspecific and may represent reactive nodes. It would be less likely that they are involved by neoplasm. Even so, it may prove worthwhile to have a short-term (three-month) followup CT chest exam for further study. The thyroid gland where visualized is unremarkable. The 1.1 cm nodule in the left breast seen previously is again evident and not significantly changed. There is no other obvious breast mass. The sections through the upper abdomen again show hepatomegaly with fatty metamorphosis of the liver. The gallbladder is surgically absent. The bone windows are unremarkable for a fracture or for a destructive lesion. IMPRESSION: 1. In the interval since the prior exam, ground-glass densities have developed in both lungs. There also appears to be a small amount of fluid present. These findings suggest that there may be an element of mild pulmonary congestion present. Clinical followup is recommended. 2. There is no evidence for pneumonia, and there is no definite defect within the pulmonary arteries to indicate a pulmonary embolus. 3. There is cardiomegaly and coronary artery disease. 4. There has been an increase in size of the mediastinal nodes. These nodes are nonspecific, however. Recommendations as above. 5. There is hepatomegaly with fatty metamorphosis. Dictated by: Dictated on workstation # [id number]
[2017-11-03 16:00] VITALS: BP 133/65
[2017-11-03 19:31] VITALS: BP 122/56
[2017-11-03] MEDS: AMITRIPTYLINE 25 MG (ELAVIL) TAB PO SCH (21:14)
[2017-11-03] MEDS: MONTELUKAST 10 MG (SINGULAIR) TAB PO SCH (21:14)
[2017-11-03] MEDS: LORazepam 1 MG (ATIVAN) TAB PO SCH (21:15)
[2017-11-03] MEDS: FLUTICASONE NASAL SPRAY (FLONASE) 16 GM BTL NS SCH (21:15)
[2017-11-04 00:19] VITALS: BP 134/65
[2017-11-04] MEDS: RT-ALBUTEROL/IPRATROPIUM 3 ML (DUONEB) VIAL INH SCH ×2 (01:43→09:17)
[2017-11-04] MEDS: NS IV 1000 ML 1,000 ML IV SCH (03:53)
[2017-11-04 04:35] VITALS: BP 124/60
[2017-11-04] MEDS: LEVOTHYROXINE 100 MCG (LEVOTHROID) TAB PO SCH (06:08)
[2017-11-04] MEDS: glipiZIDE 5 MG (GLUCOTROL) TAB PO SCH (06:08)
[2017-11-04 06:42] LABS: ABSOLUTE RETIC # 93 10e9/L (24-90); BASOPHILS % (AUTO) 0 % (0-10); EOSINOPHILS # (AUTO) 0.3 10^3/uL (0.0-0.3); EOSINOPHILS % (AUTO) 4 % (0-10); HEMATOCRIT 29 % (35-52); HEMOGLOBIN 8.4 G/DL (11.5-16.0); LYMPHOCYTES # (AUTO) 1.1 X 10^3 (1.0-4.0); LYMPHOCYTES % (AUTO) 13 % (12-44); MEAN CORPUSCULAR HEMOGLOBIN 27 PG (25-34); MEAN CORPUSCULAR HGB CONC 30 G/DL (32-36); MEAN CORPUSCULAR VOLUME 91 FL (80-99); MONOCYTES # (AUTO) 0.4 X 10^3 (0.0-1.0); MONOCYTES % (AUTO) 4 % (0-12); NEUTROPHILS # (AUTO) 7.2 X 10^3 (1.8-7.8); NEUTROPHILS % (AUTO) 79 % (42-75); PLATELET COUNT 261 10^3/uL (130-400); RED BLOOD COUNT 3.15 10^6/uL (4.35-5.85); RED CELL DISTRIBUTION WIDTH 17.4 % (10.0-14.5); RETICULOCYTE % 2.94 % (0.50-2.40); WHITE BLOOD COUNT 9.1 10^3/uL (4.3-11.0)
[2017-11-04 07:03] LABS: ALBUMIN 3.4 GM/DL (3.2-4.5); BILIRUBIN,TOTAL 0.3 MG/DL (0.1-1.0); CALCIUM 9.2 MG/DL (8.5-10.1); CREATININE SERUM 1.11 MG/DL (0.60-1.30); POTASSIUM 4.6 MMOL/L (3.6-5.0); TOTAL PROTEIN 6.4 GM/DL (6.4-8.2)
[2017-11-04 07:33] LABS: BAND NEUTROPHILS 1 %; BASOPHILS % (MANUAL) 0 %; EOSINOPHILS % (MANUAL) 6 %; ERYTHROCYTE SEDIMENTATION RATE 69 MM/HR (0-30); LYMPHOCYTES % (MANUAL) 16 %; MONOCYTES % (MANUAL) 3 %; NEUTROPHILS % (MANUAL) 74 %
[2017-11-04 07:36] LABS: HYPOCHROMASIA SLIGHT; POLYCHROMASIA SLIGHT
[2017-11-04] MEDS ORDERED: FUROSEMIDE 40 MG/4 ML INJ (LASIX) IVP NR (07:45)
[2017-11-04 08:00] VITALS: BP 125/60
--- NOTE | 2017-11-04 08:34 | Cardiology Progress Note ---
Subjective Date Seen by Provider: Nov 04, 2017 Time Seen by Provider: 08:20 Subjective/Events-last exam Patient is in bed, c/o chest pain, reproducible with palpation. Denies any dizziness or lightheadedness. Review of Systems General: No Night Sweats, No Fatigue, No Malaise HEENT: No Visual Changes, No Dysphasia Pulmonary: Dyspnea, Cough Cardiovascular: Chest Pain, Edema; No: Palpitations, Paroxysmal Noc. Dyspnea Gastrointestinal: No: Nausea, Vomiting, Abdominal Pain, Constipation Genitourinary: No Dysuria, No Frequency Musculoskeletal: No: neck pain, back pain Neurological: No: Weakness, Numbness Objective-Cardiology Exam Last Set of Vital Signs Vital Signs 11/04/17 11/04/17 01:44 04:35 Temp 98.5 Pulse 91 Resp 18 B/P (MAP) 124/60 (81) Pulse Ox 98 O2 Delivery Room Air O2 Flow Rate 3.00 Capillary Refill : Less Than 3 SecondsLess Than 3 Seconds I&O Intake and Output 11/04/17 00:00 Intake Total 3220 ml Output Total 2950 ml Balance 270 ml Intake Oral 2220 ml IV Total 1000 ml Output Urine Total 2950 ml # Voids 3 General: Alert, Oriented X3, Cooperative HEENT: Atraumatic, PERRLA Neck: Supple, No JVD, No Thyromegaly Lungs: Clear to Auscultation, Normal Air Movement Heart: Regular Rate, Normal S1, Normal S2, No Murmurs Abdomen: Normal Bowel Sounds, Soft, No Tenderness, No Hepatosplenomegaly, No Masses Extremities: No Clubbing, No Cyanosis, No Edema, Normal Pulses, No Tenderness/ Swelling Skin: No Rashes, No Breakdown, No Significant Lesion Neuro: Normal Gait, Normal Speech, Strength at 5/5 X4 Ext, Normal Tone, Sensation Intact Psych/Mental Status: Mental Status NL, Mood NL Results Lab Laboratory Tests 11/04/17 06:30 A/P-Cardiology Admission Diagnosis Shortness of breath Coronary artery disease Peripheral arterial disease Hypertension Assessment/Plan Acute exacerbation of COPD, improving slowly. Mitral valve stenosis- Echocardiogram showed normal left ventricular size and function with ejection fraction 55-60 percent, moderate mitral regurgitation, heavily calcified mitral valve, pulmonary artery pressure of 15-20 mmHg. Patient underwent THANH July 2017, done by Dr. Vargas at [facility] revealing moderate mitral valve stenosis. Continue to monitor. History of chest pain, musculoskeletal. Currently not having any active pain. Dysuria, UA WNL Coronary artery disease, status post cardiac catheterization done on December had 90 percent stenosis in the OM, stenting using 2.516 mm Promus Premier stent with excellent results expanded to 2.65. Underwent cardiac cath July [address] Vargas at [facility] revealing patent stent to OM, nonobstructive disease. Carotid artery stenosis, had carotid endarterectomy done by Dr. Victoria in 2016. Lower extremity pain, seen Dr. Pruett in the past, had ultrasound which was negative, MARICEL is 0.86 on the right and 0.95 on the left done on November 13, 2015. Continue to monitor Hypertension, continue to monitor blood pressure Hyperlipidemia, monitor lipids BMI is 40, we discussed weight loss and exercise. History of chronic venous insufficiency, COPD, followed and managed by Dr. Gutierrez Diabetes mellitus, followed and managed by primary care physician Degenerative joint disease, spinal stenosis, scoliosis, limiting her exercise ability. Systemic lupus erythematous. Followed and managed by primary care physician. Clinical Quality Measures DVT/VTE Risk/Contraindication: Risk Factor Score Per Nursin RFS Level Per Nursing on Admit: 3=High MERARY MATTSON Nov 04, 2017 08:34
[2017-11-04] MEDS: RT-ADVAIR HFA 115/21 MCG PER PUFF IH SCH (09:17)
[2017-11-04] MEDS: GABAPENTIN 400 MG (NEURONTIN) CAP PO SCH ×2 (09:37→13:52)
[2017-11-04] MEDS: ATORVASTATIN 10 MG (LIPITOR) TABLET PO SCH (09:37)
[2017-11-04] MEDS: INSULIN DEGLUDEC 200 UNIT/ML SC SCH (09:37)
[2017-11-04] MEDS: ASPIRIN E.C. 81 MG (ECOTRIN) TAB PO SCH (09:37)
[2017-11-04] MEDS: amLODIPine 5 MG (NORVASC) TAB PO SCH (09:37)
[2017-11-04] MEDS: LORATADINE (CLARITIN) 10 MG TAB PO SCH (09:37)
[2017-11-04] MEDS: LOSARTAN 50 MG (COZAAR) TAB PO SCH (09:38)
[2017-11-04] MEDS ORDERED: LACTULOSE SYRUP 10GM/15ML (ENULOSE) 30ML UDC PO SCH (10:30)
[2017-11-04] MEDS ORDERED: POLYETHYLENE GLYCOL 17 GM (MIRALAX) PACK PO SCH (10:30)
--- NOTE | 2017-11-04 10:56 | Pulmonary Progress Note ---
Subjective Time Seen by Provider: 10:05 Subjective/Events-last exam complains of SOB. Sepsis Event Evaluation Height, Weight, BMI Height: 5'4.50" Weight: 241lbs. 4.0oz. 109.949308eo; 40.8 BMI Method:Stated Exam Exam Vital Signs Date Time Temp Pulse Resp B/P (MAP) Pulse Ox O2 Delivery O2 Flow Rate FiO2 11/04/17 09:18 Room Air 11/04/17 08:00 99 Nasal Cannula 2.00 11/04/17 08:00 98.4 96 20 125/60 (81) 99 Nasal Cannula 2.00 11/04/17 07:00 93 11/04/17 04:35 98.5 91 18 124/60 (81) 98 Room Air 11/04/17 01:44 95 Nasal Cannula 3.00 11/04/17 01:00 77 11/04/17 00:19 98.1 93 17 134/65 (88) 98 Room Air 11/03/17 20:00 Nasal Cannula 2.00 11/03/17 19:31 97.2 90 16 122/56 (78) 98 Room Air 11/03/17 19:23 Nasal Cannula 3.00 11/03/17 19:16 95 Nasal Cannula 3.00 11/03/17 19:00 91 11/03/17 16:00 97.9 94 20 133/65 (87) 97 Room Air 11/03/17 15:00 99 Nasal Cannula 2.00 11/03/17 13:00 102 11/03/17 12:00 99.1 94 20 132/59 (83) 96 Room Air I & O 11/04/17 07:00 Intake Total 2920 ml Output Total 2850 ml Balance 70 ml Height & Weight Height: 5'4.50" Weight: 241lbs. 4.0oz. 109.779878mn; 40.8 BMI Method:Stated General Appearance: No Apparent Distress, WD/WN HEENT: PERRL/EOMI, TMs Normal, Normal ENT Inspection, Pharynx Normal Neck: Full Range of Motion, Normal Inspection, Non Tender, Supple, Carotid Bruit Respiratory: Chest Non Tender, Lungs Clear, Normal Breath Sounds, No Accessory Muscle Use, No Respiratory Distress Cardiovascular: Regular Rate, Rhythm, No Edema, No Gallop, No JVD, No Murmur, Normal Peripheral Pulses Capillary Refill: Less Than 3 Seconds Extremity: Normal Capillary Refill, Normal Inspection, Normal Range of Motion, Non Tender, No Calf Tenderness, No Pedal Edema Neurologic/Psychiatric: Alert, Oriented x3, No Motor/Sensory Deficits, Normal Mood/Affect Skin: Normal Color, Warm/Dry Lymphatic: No Adenopathy Results Lab Laboratory Tests 11/03/17 04:35 11/04/17 06:30 Assessment/Plan Assessment/Plan COPDAE -Steroids, SVNs Pulmonary edema with small bilateral pleural effusions -Will give lasix 60mg IV X 1 -CT of chest reviewed Diastolic CHF -Amy CP, CAD -Dr. Peralta following LARRY MURILLO DO Nov 04, 2017 10:56
--- NOTE | 2017-11-04 11:27 | Discharge Summary-Hospitalist ---
Diagnosis/Chief Complaint Date of Admission Nov 02, 2017 at 09:33 Date of Discharge Discharge Date: Nov 04, 2017 Discharge Diagnosis (1) Chest pain Status: Resolved (2) Debility Status: Chronic (3) Hypoxia Status: Chronic Assessment & Plan: Needs 3 liters on exertion and 2 liters continuous (4) Dysuria Status: Chronic (5) Depression Status: Chronic (6) Anxiety Status: Chronic (7) Anemia Status: Chronic (8) Diabetes mellitus Status: Chronic Discharge Summary Discharge Physical Exam Allergies: Coded Allergies: Penicillins (Verified Allergy, Unknown, 10/22/06) acetaminophen (Verified Allergy, Unknown, 10/22/06) codeine (Verified Allergy, Unknown, UPSET STOMACH, 10/23/06) morphine (Unverified Allergy, Unknown, 12/12/14) propoxyphene (Verified Allergy, Unknown, 10/22/06) topiramate (Verified Allergy, Unknown, 10/22/06) Vitals & I&Os Vital Signs Date Time Temp Pulse Resp B/P (MAP) Pulse Ox O2 Delivery O2 Flow Rate FiO2 11/04/17 11:12 96 3.00 11/04/17 09:18 Room Air 11/04/17 08:00 98.4 96 20 125/60 (81) General Appearance: No Apparent Distress, WD/WN, Chronically ill, Obese Respiratory: Chest Non Tender, Lungs Clear, Normal Breath Sounds, No Accessory Muscle Use, No Respiratory Distress Cardiovascular: Regular Rate, Rhythm, No Edema, No Gallop, No JVD, No Murmur, Normal Peripheral Pulses Neurologic/Psychiatric: Alert, Oriented x3, No Motor/Sensory Deficits, Depressed Affect Hospital Course Hospital course: patient had an uneventful hospital course. Chest pain was evaluated by Cardiology and Pulmonology to be non-cardiac in origin. Home O2 evaluation revealed she needs 3 liters on exertion and 2 liters continuous and those orders were placed for medical supply. Dr Jain was consulted for anemia and he will see her prior to DC but labs suggested anemia of chronic disease. Patient overall remained stable but chronic illnesses are progressive and causing more debility. She will go home at DC and her son lives next door for additional support and she declined HH orders. Labs (last 24 hrs) Laboratory Tests 11/03/17 16:04: Glucometer 201H 11/03/17 20:10: Glucometer 234H 11/04/17 05:50: Glucometer 265H 11/04/17 06:30: White Blood Count 9.1, Red Blood Count 3.15L, Hemoglobin 8.4L, Hematocrit 29L, Mean Corpuscular Volume 91, Mean Corpuscular Hemoglobin 27, Mean Corpuscular Hemoglobin Concent 30L, Red Cell Distribution Width 17.4H, Platelet Count 261, Mean Platelet Volume 9.0, Neutrophils (%) (Auto) 79H, Lymphocytes (%) (Auto) 13 , Monocytes (%) (Auto) 4, Eosinophils (%) (Auto) 4, Basophils (%) (Auto) 0, Neutrophils # (Auto) 7.2, Lymphocytes # (Auto) 1.1, Monocytes # (Auto) 0.4, Eosinophils # (Auto) 0.3, Basophils # (Auto) 0.0, Neutrophils % (Manual) 74, Lymphocytes % (Manual) 16, Monocytes % (Manual) 3, Eosinophils % (Manual) 6, Basophils % (Manual) 0, Band Neutrophils 1, Polychromasia SLIGHT, Hypochromasia SLIGHT, Erythrocyte Sedimentation Rate 69H, Absolute Reticulocyte Count 93H, Percent Reticulocyte Count 2.94H, Sodium Level 139, Potassium Level 4.6, Chloride Level 103, Carbon Dioxide Level 26, Anion Gap 10, Blood Urea Nitrogen 12, Creatinine 1.11, Estimat Glomerular Filtration Rate 50, BUN/Creatinine Ratio 11, Glucose Level 265H, Calcium Level 9.2, Corrected Calcium 9.7, Total Bilirubin 0.3, Aspartate Amino Transf (AST/SGOT) 13, Alanine Aminotransferase ( ALT/SGPT) 12, Alkaline Phosphatase 112, C-Reactive Protein High Sensitivity 4.20H, Total Protein 6.4, Albumin 3.4 11/04/17 11:20: Glucometer 235H Patient resulted labs reviewed. Pending Labs Laboratory Tests 11/04/17 05:50: Glucometer 265 11/04/17 06:30: White Blood Count 9.1, Red Blood Count 3.15, Hemoglobin 8.4, Hematocrit 29, Mean Corpuscular Volume 91, Mean Corpuscular Hemoglobin 27, Mean Corpuscular Hemoglobin Concent 30, Red Cell Distribution Width 17.4, Platelet Count 261, Mean Platelet Volume 9.0, Neutrophils (%) (Auto) 79, Lymphocytes (%) (Auto) 13, Monocytes (%) (Auto) 4, Eosinophils (%) (Auto) 4, Basophils (%) (Auto) 0, Neutrophils # (Auto) 7.2, Lymphocytes # (Auto) 1.1, Monocytes # (Auto) 0.4, Eosinophils # (Auto) 0.3, Basophils # (Auto) 0.0, Neutrophils % (Manual) 74, Lymphocytes % (Manual) 16, Monocytes % (Manual) 3, Eosinophils % (Manual) 6, Basophils % (Manual) 0, Band Neutrophils 1, Polychromasia SLIGHT, Hypochromasia SLIGHT, Erythrocyte Sedimentation Rate 69, Absolute Reticulocyte Count 93, Percent Reticulocyte Count 2.94, Sodium Level 139, Potassium Level 4.6, Chloride Level 103, Carbon Dioxide Level 26, Anion Gap 10, Blood Urea Nitrogen 12, Creatinine 1.11, Estimat Glomerular Filtration Rate 50, BUN/Creatinine Ratio 11, Glucose Level 265, Calcium Level 9.2, Corrected Calcium 9.7, Iron Level [Pending], Total Iron Binding Capacity [Pending], Unsaturated Iron Binding Capacity [Pending], Transferrin % Saturation [Pending], Ferritin [ Pending], Total Bilirubin 0.3, Aspartate Amino Transf (AST/SGOT) 13, Alanine Aminotransferase (ALT/SGPT) 12, Alkaline Phosphatase 112, C-Reactive Protein High Sensitivity 4.20, Total Protein 6.4, Albumin 3.4 11/04/17 11:20: Glucometer 235 Discussion & Recommendations Discharge Planning: <30 minutes discharge planning Discharge Home Medications: Active Scripts Active Meclizine HCl 25 Mg Tablet 25 Mg PO Q6H PRN Reported Cyclobenzaprine HCl 10 Mg Tablet 10 Mg PO BID PRN Tylenol Extra Strength (Acetaminophen) 500 Mg Tablet 1,000 Mg PO Q6H PRN Vitamin B Complex 1 Each Capsule 1 Cap PO DAILY Daily Multiple Vitamin (Multivitamin) 1 Each Tablet 1 Tab PO DAILY Zyrtec (Cetirizine HCl) 10 Mg Tablet 10 Mg PO DAILY Vitamin D3 (Cholecalciferol (Vitamin D3)) 5,000 Unit Capsule 5,000 Unit PO BID Aspirin EC (Aspirin) 81 Mg Tablet.dr 81 Mg PO DAILY Levothyroxine Sodium 100 Mcg Tablet 100 Mcg PO DAILY Amlodipine Besylate 10 Mg Tablet 5 Mg PO DAILY Metoprolol Succinate 25 Mg Tab.er.24h 25 Mg PO DAILY Atorvastatin Calcium 10 Mg Tablet 10 Mg PO DAILY Ventolin Hfa (Albuterol Sulfate) 18 Gm Hfa.aer.ad 2 Puff INH Q4H PRN Gabapentin 400 Mg Capsule 400 Mg PO TID Glipizide 5 Mg Tablet 5 Mg PO DAILY Losartan Potassium 50 Mg Tablet 50 Mg PO DAILY Amitriptyline HCl 75 Mg Tablet 75 Mg PO HS Metformin HCl 1,000 Mg Tablet 1,000 Mg PO BID Singulair (Montelukast Sodium) 10 Mg Tablet 10 Mg PO HS Tramadol HCl 50 Mg Tablet 50 Mg PO Q4H PRN Lorazepam 1 Mg Tablet 1 Mg PO HS Tresiba Flextouch U-200 (Insulin Degludec) 200 Unit/1 Ml Insuln.pen 12 Units SC BID Symbicort 160-4.5 Mcg Inhaler (Budesonide/Formoterol Fumarate) 10.2 Gm Hfa.aer.ad 2 Puff IH BID Lorazepam 1 Mg Tablet 1 Mg PO DAILY PRN Fluticasone Propionate 16 Gm [place].susp 2 Sprays NS HS Instructions to patient/family Please see electronic discharge instructions given to patient. Clinical Quality Measures DVT/VTE Risk/Contraindication: Risk Factor Score Per Nursin RFS Level Per Nursing on Admit: 3=High Problem Qualifiers (1) Chest pain: Chest pain type: unspecified Qualified Codes: R07.9 - Chest pain, unspecified (2) Depression: Depression Type: unspecified Qualified Codes: F32.9 - Major depressive disorder, single episode, unspecified (3) Anemia: Anemia type: unspecified type Qualified Codes: D64.9 - Anemia, unspecified (4) Diabetes mellitus: Diabetes mellitus type: type 2 Diabetes mellitus manager long term care insulin use: without [place] use Diabetes mellitus complication status: with unspecified complications Qualified Codes: E11.8 - Type 2 diabetes mellitus with unspecified complications FERN BAILEY DO Nov 04, 2017 11:27
--- NOTE | 2017-11-04 11:32 | Progress Note-Hospitalist ---
ANGEL ZIEGLER MEDICAL STUDENT 11/04/17 1132: Subjective HPI/CC On Admission Date Seen by Provider: Nov 04, 2017 Time Seen by Provider: 09:50 The patient is a 61-year-old white female whom I have known for nearly 40 years. She presented to Dr. Gutierrez's office this morning with complaints of shortness of breath. He found her to be hypoxic and felt she should be admitted. She is a lifetime nonsmoker. There is a past history of vascular disease with a previous right carotid endarterectomy and ischemic heart disease with Dr. Peralta having performed angiography and stenting in 2016. She reports no recent chest pain. She states that she has had a cough but no sputum production. There has been no fever or sweats. She reports dyspnea with minimum exercise. Subjective/Events-last exam No acute events overnight. Her shortness of breath and chest pain are improving , though her chest still hurts when she presses on it. She has not had a BM since arriving, but she had 5 BMS the day prior to admission. She continues to have burning with urination. She is ambulating to and from the bathroom. Review of Systems Cardiovascular: Chest Pain Gastrointestinal: Constipation Genitourinary: Dysuria, Frequency Objective Exam Vital Signs Vital Signs Date Time Temp Pulse Resp B/P (MAP) Pulse Ox O2 Delivery O2 Flow Rate FiO2 11/04/17 11:12 96 3.00 11/04/17 09:18 Room Air 11/04/17 08:00 98.4 96 20 125/60 (81) Capillary Refill : Less Than 3 SecondsLess Than 3 Seconds Results/Procedures Lab Laboratory Tests 11/04/17 06:30 Patient resulted labs reviewed. Assessment/Plan Assessment and Plan Assess & Plan/Chief Complaint Chest Pain: Likely muskuloskeletal, no further work up necessary. Anemia -Hematology consulted -Iron studies pending Dysuria/Frequency -UA has shown no indication of UTI, no further workup necessary Dispo -Qualifies for 3 L for home daytime use -Will help arrange follow up with Dr. Vargas Clinical Quality Measures DVT/VTE Risk/Contraindication: Risk Factor Score Per Nursin RFS Level Per Nursing on Admit: 3=High FERN BAILEY DO 11/04/17 1232: Subjective Subjective/Events-last exam Patient has multiple chronic issues Patient lives alone but son is next door and declines HH Multiple home meds noted O2 needs portable access Dr Jain will see the patient but likely anemia of chronic disease Chest pain is no longer present and non-specific and non-cardiac UA nl x 2 although symptoms still present and appears to be chronic like the rest of her issues Review of Systems General: Fatigue Pulmonary: Dyspnea Cardiovascular: Chest Pain Gastrointestinal: Constipation Genitourinary: Dysuria, Frequency Objective Exam General Appearance: No Apparent Distress, WD/WN, Chronically ill, Obese HEENT: PERRL/EOMI, Normal ENT Inspection, Pharynx Normal, Moist Mucous Membranes Neck: Full Range of Motion, Normal Inspection, Non Tender, Supple, Carotid Bruit Respiratory: Chest Non Tender, Lungs Clear, Normal Breath Sounds, No Accessory Muscle Use, No Respiratory Distress, Decreased Breath Sounds Cardiovascular: Regular Rate, Rhythm, No Edema, No Gallop, No JVD, No Murmur, Normal Peripheral Pulses Gastrointestinal: Normal Bowel Sounds, No Organomegaly, No Pulsatile Mass, Non Tender, Soft Back: Normal Inspection, No CVA Tenderness, No Vertebral Tenderness Extremity: Normal Capillary Refill, Normal Inspection, Normal Range of Motion, Non Tender, No Calf Tenderness, No Pedal Edema Neurologic/Psychiatric: Alert, Oriented x3, No Motor/Sensory Deficits, Depressed Affect Skin: Normal Color, Warm/Dry Lymphatic: No Adenopathy Assessment/Plan Assessment and Plan Assess & Plan/Chief Complaint Chest pain non-cardiac Dysuria with normal UA x 2 appears chronic Hypoxia on home O2 Anemia of chronic disease Diagnosis/Problems Diagnosis/Problems (1) Chest pain Status: Acute Qualifiers: Chest pain type: unspecified Qualified Codes: R07.9 - Chest pain, unspecified (2) Diabetes mellitus Status: Chronic Qualifiers: Diabetes mellitus type: type 2 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 use: without snf use Diabetes mellitus complication status: with unspecified complications Qualified Codes: E11.8 - Type 2 diabetes mellitus with unspecified complications (3) Dysuria Status: Chronic (4) Debility Status: Chronic (5) Depression Status: Chronic Qualifiers: Depression Type: unspecified Qualified Codes: F32.9 - Major depressive disorder, single episode, unspecified (6) Anemia Status: Chronic Qualifiers: Anemia type: unspecified type Qualified Codes: D64.9 - Anemia, unspecified (7) Hypoxia Status: Chronic (8) Anxiety Status: Chronic ANGEL ZIEGLER MEDICAL STUDENT Nov 04, 2017 11:32 FERN BAILEY DO Nov 04, 2017 12:32
--- NOTE | 2017-11-04 11:45 | Cardiology Progress Note ---
Subjective Date Seen by Provider: Nov 04, 2017 Time Seen by Provider: 11:41 Subjective/Events-last exam Patient is in bed, feeling better, no new complaint, had reproducible chest pain on the left Review of Systems General: No Chills, No Night Sweats, No Fatigue, No Malaise, No Appetite, No Other HEENT: No Head Aches, No Visual Changes, No Eye Pain, No Ear Pain, No Dysphasia , No Sinus Congestion, No Post Nasal Drip, No Sore Throat, No Other Pulmonary: Dyspnea; No Cough, No Pleuritic Chest Pain, No Other Cardiovascular: No: Chest Pain, Palpitations, Orthopnea, Paroxysmal Noc. Dyspnea, Edema, Lt Headedness, Other Objective-Cardiology Exam Last Set of Vital Signs Vital Signs 11/04/17 11/04/17 11/04/17 08:00 09:18 11:12 Temp 98.4 Pulse 96 Resp 20 B/P (MAP) 125/60 (81) Pulse Ox 96 O2 Delivery Room Air O2 Flow Rate 3.00 Capillary Refill : Less Than 3 SecondsLess Than 3 Seconds I&O Intake and Output 11/04/17 00:00 Intake Total 3220 ml Output Total 2950 ml Balance 270 ml Intake Oral 2220 ml IV Total 1000 ml Output Urine Total 2950 ml # Voids 3 General: Alert, Oriented X3, Cooperative HEENT: Atraumatic, PERRLA Neck: Supple, No JVD, No Thyromegaly Lungs: Clear to Auscultation, Normal Air Movement Heart: Regular Rate, Normal S1, Normal S2, No Murmurs Abdomen: Normal Bowel Sounds, Soft, No Tenderness, No Hepatosplenomegaly, No Masses Extremities: No Clubbing, No Cyanosis, No Edema, Normal Pulses, No Tenderness/ Swelling Skin: No Rashes, No Breakdown, No Significant Lesion Neuro: Normal Gait, Normal Speech, Strength at 5/5 X4 Ext, Normal Tone, Sensation Intact Psych/Mental Status: Mental Status NL, Mood NL Results Lab Laboratory Tests 11/04/17 06:30 A/P-Cardiology Admission Diagnosis Shortness of breath Coronary artery disease Peripheral arterial disease Hypertension Assessment/Plan Acute exacerbation of COPD, improving slowly. Mitral valve stenosis- Echocardiogram showed normal left ventricular size and function with ejection fraction 55-60 percent, moderate mitral regurgitation, heavily calcified mitral valve, pulmonary artery pressure of 15-20 mmHg. Patient underwent THANH July 2017, done by Dr. Vargas at [facility] revealing moderate mitral valve stenosis. Continue to monitor Anemia, stable H&H, anemia analyzer were ordered. Continue to monitor, managed by primary care team History of chest pain, musculoskeletal, having reproducible chest pain, non cardiac Dysuria, UA WNL, managed by primary team Coronary artery disease, status post cardiac catheterization done on December had 90 percent stenosis in the OM, stenting using 2.516 mm Promus Premier stent with excellent results expanded to 2.65. Underwent cardiac cath July [address] Vargas at [facility] revealing patent stent to OM, nonobstructive disease. Continue to monitor Carotid artery stenosis, had carotid endarterectomy done by Dr. Victoria in 2016. continue to monitor Lower extremity pain, seen Dr. Pruett in the past, had ultrasound which was negative, MARICEL is 0.86 on the right and 0.95 on the left done on November 13, 2015. Continue to monitor Hypertension, continue to monitor blood pressure Hyperlipidemia, monitor lipids BMI is 40, we discussed weight loss and exercise. History of chronic venous insufficiency, COPD, followed and managed by Dr. Gutierrez Diabetes mellitus, followed and managed by primary care physician Degenerative joint disease, spinal stenosis, scoliosis, limiting her exercise ability. Systemic lupus erythematous. Followed and managed by primary care physician. Clinical Quality Measures DVT/VTE Risk/Contraindication: Risk Factor Score Per Nursin RFS Level Per Nursing on Admit: 3=High NGHIA GUTIERREZ MD Nov 04, 2017 11:45
--- NOTE | 2017-11-04 18:04 | CONSULTATION REPORT ---
DATE OF SERVICE: 11/04/2017 The patient is admitted to room 425. REFERRING PHYSICIAN: Gil Oliva MD. IMPRESSION: 1. A 61-year-old female admitted with increasing shortness of breath. 2. Worsening anemia since the last few years and history of packed red blood cell transfusion in the past for symptomatic anemia. 3. Chronic kidney disease - stage III since the last several years. 4. Multiple other comorbidities including coronary artery disease, peripheral arterial disease, diabetes mellitus type 2, systemic lupus erythematosus. RECOMMENDATIONS: 1. I will obtain a CBC, reticulocyte count, serum iron studies, CMP, sed rate as well as C-reactive protein today. 2. Continue management of lung problems as you are doing. 3. Okay to discharge the patient if stable from medical standpoint. 4. [facility] week to review the pending labs and discuss about further options. BRIEF HISTORY: The patient is a 61-year-old female who was admitted to the hospital with worsening dyspnea on exertion. The patient has been oxygen dependent previously and follows regularly with Dr. Gutierrez. At the time of admission, she was noted to be anemic, which has been gradually worsening over the last several years. Because of this, a hematology consultation was obtained for further workup and management. PAST MEDICAL HISTORY: Significant for diabetes mellitus for more than 25 to 30 years. She is on treatment for this. She has a history of coronary artery disease requiring a stent placement in the past. She also has peripheral arterial disease and has undergone carotid endarterectomies. She has history of hypertension and hypercholesterolemia. She was diagnosed with systemic lupus erythematosus several years ago, but has not taken any treatment for the last few years and no followup with the automation developer. PAST SURGICAL HISTORY: Includes appendectomy, cholecystectomy, thyroidectomy in her teenage years, bilateral knee replacement, bilateral carpal tunnel release, cardiac catheterization with stent placement and foot surgery. SOCIAL HISTORY: The patient is and lives alone in [place], [place]. She has a son who lives next door and checks on her regularly. 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 She gives history of significant exposure to chemicals during her work. She is a never smoker and denied any significant secondhand tobacco exposure other than at work. No significant alcohol or other recreational drug use. FAMILY HISTORY: Only significant for her sister who was diagnosed with breast cancer while in her early 70s. No hematologic problems in the family that the patient knows of. Both her parents had hypertension and coronary artery disease. Father was a diabetic also. Rest of the family history is unremarkable. PHYSICAL EXAMINATION: GENERAL: Today showed an elderly female, obese, awake and oriented and in mild respiratory distress. VITAL SIGNS: Temperature was 98.4, pulse rate of 96, respirations 20, blood pressure 125/60 with oxygen saturation of 99% on 2 liters of oxygen by nasal cannula. HEENT: Normocephalic, extraocular muscles intact, conjunctivae slightly pale, oral mucosa moist. NECK: Supple, with no JVD. No cervical, supraclavicular or axillary lymphadenopathy palpable. CHEST: Symmetrical. LUNGS: Fairly clear to auscultation without wheezes or rales. CARDIOVASCULAR: Regular in rate and rhythm and borderline tachycardic. No murmurs or gallops heard. ABDOMEN: Obese, soft, nontender with no hepatosplenomegaly or other masses palpable. EXTREMITIES: Showed no edema. NEUROLOGIC: Grossly intact without focal motor deficits. LABORATORY DATA: CBC done today showed a white blood cell count of 9.1, hemoglobin was 8.4 with MCV of 91. Platelet count was 261,000 with neutrophil count of 7.2 and lymphocyte count 1.1. Absolute reticulocyte count was 93,000. Sed rate was elevated at 69 and C-reactive protein was elevated at 4.2. Chemistry panel showed normal electrolytes. BUN was 12 and creatinine 1.11 with GFR 50 mL per minute. Fasting blood glucose was 265. Liver function studies were within normal limits. Serum iron study is pending. I have reviewed her CBCs dating back to 2010 and the anemia has been gradually worsening over time. The renal function has also been below normal since 2010 onwards. Thank you for allowing me to participate in this patient's care. I will see her back next week in the office and follow the pending lab work as well as initiate further workup as needed. Job ID: [id number] DocumentID: [id number] Dictated Date: 11/04/2017 14:14:30 Revenue Research Analyst Date: 11/04/2017 18:03:41 Dictated By: NORA ESCAMILLA MD [facility]dulkadir
--- NOTE | 2017-11-06 11:04 | Physician Query Clarification ---
PQ-Conflicting Diagnosis Admission/Discharge Admission Date: Nov 02, 2017 at 09:33 Discharge Date: Nov 04, 2017 at 14:05 The medical record reflects the following clinical scenario: History/Risk Factors: Hypertensive cardiorenal disease, CAD, Diabetes Clinical Findings: SOB, hypoxia, midsternal sharp chest pain radiating into Lt. shoulder Treatment: Steroids, SVN's, telemetry, IVF NS 50 cc/hr, O2 Question: Do you agree with the impression of the COPD acute exacerbation per Dr. Peralta and Dr. Gutierrez 11/03 PN. Please document a response below. PHYSICIAN RESPONSE Do you agree w/Consulting Dx?: Yes In responding to this query, please exercise your independent professional judgment. The purpose of this communication is to more accurately reflect the complexity of your patients condition. The fact that a question is asked does not imply that any particular answer is desired or expected. Thank you for your timely response to this clarification. Requestors name: Vin THIS PHYSICIAN QUERY FORM IS A PERMANENT PART OF THE MEDICAL RECORD VIN DICKSON Nov 06, 2017 11:04 FERN BAILEY DO Nov 06, 2017 17:52
[2017-11-10] MEDS ORDERED: SUCR1TAB36 PO (08:38)
[2017-11-10] MEDS ORDERED: PANT40TA2 PO (08:38)
--- NOTE | 2017-11-12 16:35 | Physician Query Clarification ---
PQ-CHF Specificity The medical record reflects the following clinical scenario: History/Risk Factors: COPDAE, CAD, CARDIOMYOPATHY, HTN Clinical Findings: BNP 322.5, pulmonary edema with small bilateral pleural effusions and diastolic CHF per Dr. Gutierrez consult Treatment: 60 mg IV lasix Question: Can you further specify the acuity &/or type of CHF per the clinical indicators above? Please document a response below PHYSICIAN RESPONSE Acuity: Acute Type: Diastolic In responding to this query, please exercise your independent professional judgment. The purpose of this communication is to more accurately reflect the complexity of your patients condition. The fact that a question is asked does not imply that any particular answer is desired or expected. Thank you for your timely response to this clarification. Requestors name: Vin THIS PHYSICIAN QUERY FORM IS A PERMANENT PART OF THE MEDICAL RECORD VIN DICKSON Nov 12, 2017 16:35 NGHIA GUTIERREZ MD Nov 12, 2017 21:51
== END 2017-11-04 14:05 | disposition home or self-care (01) | DRG 190 ==
LOC: 4TH 09:33
PROVIDERS: ADMIT Internal Medicine; ATTEND Internal Medicine Critical Care Medicine
DX: J44.1 Chronic obstructive pulmonary disease with (acute) exacerbation (principal); I25.10 Atherosclerotic heart disease of native coronary artery without angina pectoris; I42.9 Cardiomyopathy, unspecified; I13.0 Hypertensive heart and chronic kidney disease with heart failure and stage 1 through stage 4 chronic kidney disease, or unspecified chronic kidney disease; I50.31 Acute diastolic (congestive) heart failure; N18.3 Chronic kidney disease, stage 3 (moderate); D64.9 Anemia, unspecified; E78.00 Pure hypercholesterolemia, unspecified; Z68.41 Body mass index [BMI] 40.0-44.9, adult; E66.01 Morbid (severe) obesity due to excess calories; E11.51 Type 2 diabetes mellitus with diabetic peripheral angiopathy without gangrene; I34.0 Nonrheumatic mitral (valve) insufficiency; R30.0 Dysuria; G47.30 Sleep apnea, unspecified; R60.0 Localized edema; M79.661 Pain in right lower leg; M79.662 Pain in left lower leg; I87.2 Venous insufficiency (chronic) (peripheral); I65.29 Occlusion and stenosis of unspecified carotid artery; E89.0 Postprocedural hypothyroidism; M19.91 Primary osteoarthritis, unspecified site; F41.9 Anxiety disorder, unspecified; F32.9 Major depressive disorder, single episode, unspecified; M48.00 Spinal stenosis, site unspecified; R07.89 Other chest pain; M41.9 Scoliosis, unspecified; M32.9 Systemic lupus erythematosus, unspecified; Z95.5 Presence of coronary angioplasty implant and graft; Z79.4 Long term (current) use of insulin
CPT/HCPCS: 36415; 36600; 71275; 80053; 81000; 82728; 82805; 82962; 83540; 83735; 83880; 84100; 84484; 85007; 85025; 85027; 85045; 85379; 85652; 86141; 93005; 93306; 93970; 94640; 94664; 94760; 94761

== ENCOUNTER 2017-11-10 07:02 | Day surgery (SDC) | payer MEDICARE, OTHER ==
[~2017-11-10] VITALS: Ht 163.8 cm; Wt 109.4 kg
[~2017-11-10 07:02] MED LIST changes: +ALBU18HF2 INH; +AMIT75TA2 PO; +AMLO10TA6 PO; +ATOR10TA66 PO; +BUDE10.2 IH; +CETI10TA20 PO; +GABA-490 PO; +INSU200I4 SC; +LEVO100T7 PO; +LORA1TAB PO; +LOSA50TA7 PO; +MONT10TA21 PO; +MULT-35 PO; +SULF-222 PO; +VITA1CAP PO
[2017-11-10] MEDS ORDERED: LACTATED RINGERS 1,000 ML IV ONE (07:18)
--- NOTE | 2017-11-10 07:36 | Progress Note-Pre Operative ---
Pre-Operative Progress Note H&P Reviewed The H&P was reviewed, patient examined and no changes noted. Date Seen by Provider: Nov 10, 2017 Time Seen by Provider: 07:35 Date H&P Reviewed: Nov 10, 2017 Time H&P Reviewed: 07:35 Pre-Operative Diagnosis: dysphagia MARILY PANDEY DO Nov 10, 2017 07:36
[2017-11-10] MEDS ORDERED: LACTATED RINGERS 1,000 ML IV STA (07:51)
[2017-11-10 07:55] VITALS: BP 136/67
[2017-11-10] MEDS ORDERED: HURRICAINE EXT TUBE (BENZOCAINE) XX PRN (08:00)
[2017-11-10] MEDS ORDERED: proPOfol 200 MG/20 ML (DIPRIVAN) VIAL IV ONE (08:06)
[2017-11-10] MEDS ORDERED: MIDAZOLAM 2 MG/2 ML (VERSED) VIAL ONE (08:06)
--- NOTE | 2017-11-10 08:34 | Progress Note-Post Operative ---
Post-Operative Progess Note Surgeon (s)/Caterpillar Mechanic (s) Surgeon MARILY PANDEY DO Caterpillar Mechanic: na Pre-Operative Diagnosis dysphagia Post-Operative Diagnosis small hiatal hernia, gastritis c linear ulcerations Procedure & Operative Findings Date of Procedure 11/10/17 Procedure Performed/Findings egd c biopsies Anesthesia Type per [facility] Estimated Blood Loss Estimated blood loss (mL): none Specimens/Packing Specimens Removed antrum, body MARILY PANDEY DO Nov 10, 2017 08:34
[2017-11-10] MEDS ORDERED: SUCR1TAB36 PO (08:38)
[2017-11-10] MEDS ORDERED: HURRICAINE EXT TUBE (BENZOCAINE) ONE (08:38)
[2017-11-10] MEDS ORDERED: PANT40TA2 PO (08:38)
--- NOTE | 2017-11-10 08:40 | Discharge Inst-Simple/Standard ---
Discharge Inst-Standard Discharge Medications New, Converted or Re-Newed RX: Transmitted to Pharmacy Patient Instructions/Follow Up Plan of Care/Instructions/FU: 3 weeks isaiah Activity as Tolerated: Yes Discharge Diet: Regular Diet, Other Diet (ulcer diet) MARILY PANDEY DO Nov 10, 2017 08:40
[2017-11-10 08:50] VITALS: BP 121/56
[2017-11-10 09:10] VITALS: BP 129/69
[2017-11-10 09:18] VITALS: BP 129/69
--- NOTE | 2017-11-10 10:09 | Anesthesia-General Post-Op ---
MAC Patient Condition Mental Status/LOC: Same as Preop Cardiovascular: Satisfactory Nausea/Vomiting: Absent Respiratory: Satisfactory Pain: Controlled Complications: Absent Post Op Complications Complications None Follow Up Care/Instructions Patient Instructions None needed. Anesthesiology Discharge Order Discharge Order Patient is doing well, no complaints, stable vital signs, no apparent adverse anesthesia problems. No complications reported per nursing. CHAR LUNA CRNA Nov 10, 2017 10:09
--- NOTE | 2017-11-10 12:18 | OPERATIVE REPORT ---
DATE OF SERVICE: 11/10/2017 PREOPERATIVE DIAGNOSIS: Dysphagia. POSTOPERATIVE DIAGNOSES: Small hiatal hernia, gastritis with linear ulcerations. PROCEDURE: EGD with biopsy. SURGEON: Marily Pulido DO. ANESTHESIA: Per MDA. ESTIMATED BLOOD LOSS: None. COMPLICATIONS: None. INDICATIONS: The patient is a 61-year-old female with dysphagia. She understands the risks and benefits of the procedure and wished to proceed with procedure. Consent was signed on the chart. DESCRIPTION OF PROCEDURE: The patient was taken to the endoscopy suite, placed in the left lateral recumbent position. Timeout was performed. Scope was inserted in the mouth, down the esophagus, stomach and into the duodenum without difficulty. There were no polyps, masses or ulcerations within the duodenum. Scope was slowly retracted back into the stomach where it was further insufflated. Linear ulcerations were present up around the body of the stomach. The antrum had just a slight gastritis appearance, no polyps, masses or ulcerations. The scope was retroflexed noting a very small hiatal hernia. No other polyps, masses or ulcerations as noted above. Biopsies of the antrum and the body were obtained. Scope was then slowly retracted back into the distal esophagus. There were no polyps, masses, ulcerations or erythematous changes. Scope was slowly retracted back until completely removed noting no other pathology. RECOMMENDATIONS: The patient will be started on Protonix 40 mg daily and Carafate 1 gram four times a day. We will see her in the office in three weeks to discuss symptoms and pathology at that time. If she has any problems, she should be seen at that time. Job ID: [id number] DocumentID: [id number] Dictated Date: 11/10/2017 08:42:52 Labourers Date: 11/10/2017 12:17:23 Dictated By: MARILY PULIDO DO
== END 2017-11-10 09:15 | disposition home or self-care (01) ==
LOC: ENDO 07:02
PROVIDERS: ATTEND Surgery
DX: K29.50 Unspecified chronic gastritis without bleeding (principal); K44.9 Diaphragmatic hernia without obstruction or gangrene; K25.9 Gastric ulcer, unspecified as acute or chronic, without hemorrhage or perforation; I25.10 Atherosclerotic heart disease of native coronary artery without angina pectoris; I42.9 Cardiomyopathy, unspecified; I10 Essential (primary) hypertension; J45.909 Unspecified asthma, uncomplicated; J44.9 Chronic obstructive pulmonary disease, unspecified; G47.33 Obstructive sleep apnea (adult) (pediatric); E11.42 Type 2 diabetes mellitus with diabetic polyneuropathy; E66.01 Morbid (severe) obesity due to excess calories; Z68.41 Body mass index [BMI] 40.0-44.9, adult; Z79.4 Long term (current) use of insulin; Z79.82 Long term (current) use of aspirin; Z95.5 Presence of coronary angioplasty implant and graft
CPT/HCPCS: 88305; 88342

== ENCOUNTER 2017-11-19 08:53 | Outpatient (RCR) | payer MEDICARE, OTHER ==
[~2017-11-19 08:53] MED LIST changes: +FERRIC CARBOXYMALTOSE (CANCER) 750 MG in NS (IVPB) CANCER CENTER 250 ML IV SCH; +PANT40TA2 PO; +SUCR1TAB36 PO
== END 2017-12-06 | disposition home or self-care (01) ==
LOC: ONC 08:53
PROVIDERS: ATTEND Internal Medicine Hematology & Oncology
DX: D50.9 Iron deficiency anemia, unspecified (principal); K29.50 Unspecified chronic gastritis without bleeding; K25.9 Gastric ulcer, unspecified as acute or chronic, without hemorrhage or perforation; N18.3 Chronic kidney disease, stage 3 (moderate); I12.9 Hypertensive chronic kidney disease with stage 1 through stage 4 chronic kidney disease, or unspecified chronic kidney disease; E11.22 Type 2 diabetes mellitus with diabetic chronic kidney disease; I25.10 Atherosclerotic heart disease of native coronary artery without angina pectoris; J45.909 Unspecified asthma, uncomplicated; G47.33 Obstructive sleep apnea (adult) (pediatric); E03.9 Hypothyroidism, unspecified; Z79.4 Long term (current) use of insulin; Z79.82 Long term (current) use of aspirin
CPT/HCPCS: 96365

== ENCOUNTER → 2017-11-27 | Outpatient (CLI) | payer MEDICARE, OTHER ==
[~2017-11-27] MED LIST changes: -FERRIC CARBOXYMALTOSE (CANCER) 750 MG in NS (IVPB) CANCER CENTER 250 ML IV SCH
== END ==
LOC: RAD 13:53
PROVIDERS: ATTEND Nurse Practitioner Family
DX: N63.0 Unspecified lump in unspecified breast (principal); Z53.8 Procedure and treatment not carried out for other reasons

== ENCOUNTER 2017-11-30 10:16 | Outpatient (RCR) | payer MEDICARE, OTHER ==
[~2017-11-30] VITALS: Ht 162.6 cm; Wt 108.9 kg
[2017-11-30 10:25] VITALS: BP 130/40
== END 2017-12-06 | disposition home or self-care (01) ==
LOC: RT 10:16
PROVIDERS: ATTEND Nurse Practitioner Family
DX: J98.4 Other disorders of lung (principal); R06.02 Shortness of breath; R09.02 Hypoxemia

== ENCOUNTER → 2017-12-02 | Outpatient (CLI) | payer MEDICARE, OTHER ==
--- NOTE | 2017-12-02 10:03 | Diagnostic Imaging Report ---
Ultrasound of the left breast. INDICATION: Left breast mass. FINDINGS: The diagnostic mammogram performed earlier today failed to show any sign of malignancy. On this exam, there is no discrete solid or cystic mass in the region of patient's palpable abnormality. It may be that the palpable abnormality in question is related to fibroglandular tissue alone. However, if clinical concern regarding a palpable abnormality persists, then biopsy should still be considered. The mammogram also noted a small area increased density in the medial aspect of the breast. The also examination of the medial aspect of the breast failed to show any discrete solid or cystic mass. Most likely the density seen on the mammogram was secondary to superimposition. IMPRESSION: 1. There is no evidence of malignancy. Recommendations as above. 2. These results were discussed with Brenda Correa APRN. ACR BI-RADS Category 1: Negative. Dictated by: Dictated on workstation # [id number]
--- NOTE | 2017-12-02 18:12 | Diagnostic Imaging Report ---
EXAMINATION: Unilateral Diagnostic left mammogram with 3D tomosynthesis. INDICATION: Breast nodule. COMPARISON: This study was compared to the prior exams of 07/08/2017, 07/01/2016, and 06/28/2015. The current study was also evaluated with a Computer Aided Detection (CAD) system. FINDINGS: At this time, the patient does complain of a mass in the 12 o'clock position of the left breast. A marker was placed over the area of concern. There is no primary or secondary sign of malignancy evident in this area. Even so, I would recommend that ultrasound be performed for further study. In the medial aspect of the left breast in the craniocaudad view, approximately 12 cm from the nipple, there is a small 5 mm asymmetric density. This finding is not as conspicuous on the tomographic views nor can it be identified with certainty on the MLO view of the left breast. I suspect this density is most likely secondary to fibroglandular tissue. Even so, I would recommend that ultrasound of the medial aspect of the left breast also be performed. IMPRESSION: There is no evidence of malignancy. Ultrasound would be recommended for further evaluation of both the palpable abnormality in the 12 o'clock position and the small density in the medial aspect of the left breast. ACR BI-RADS Category 0: Incomplete. (Needs additional imaging evaluation). Result letter will be mailed to the patient. Note: At least 10% of breast cancer is not imaged by mammography. Dictated by: Dictated on workstation # [id number]
== END ==
LOC: RAD 08:21
PROVIDERS: ATTEND Nurse Practitioner Family
DX: N63.20 Unspecified lump in the left breast, unspecified quadrant (principal); N64.4 Mastodynia
CPT/HCPCS: 76642

== ENCOUNTER → 2017-12-09 | Outpatient (CLI) | payer MEDICARE, OTHER ==
--- NOTE | 2017-12-09 14:48 | Diagnostic Imaging Report ---
PROCEDURE: US Renal Bilateral. TECHNIQUE: Multiple real-time grayscale images were obtained over the kidneys in various projections bilaterally. INDICATION: Dysuria. Right kidney measures 9.4 x 4.4 x 5.4 cm and the left kidney measures 8.7 x 5.4 x 4.3 cm. Cortical thickness and echogenicity is normal. No calculi are seen. There is no hydronephrosis. Bladder is decompressed. IMPRESSION: Unremarkable renal ultrasound. Dictated by: Dictated on workstation # [id number]
--- NOTE | 2017-12-09 14:53 | Diagnostic Imaging Report ---
Indication: Dysuria. Prevoid bladder volume is 159 mL. Post void volume is 2 mL. No bladder wall thickening or mass is detected. Impression: Unremarkable bladder ultrasound. Dictated by: Dictated on workstation # [id number]
== END ==
LOC: RAD 11:59
PROVIDERS: ATTEND Nurse Practitioner Family
DX: R30.0 Dysuria (principal)
CPT/HCPCS: 76770; 76857

== ENCOUNTER 2017-12-24 08:56 | Outpatient (RCR) | payer MEDICARE, OTHER ==
[2017-12-21 09:30] LABS: ABSOLUTE RETIC # 74 10e9/L (24-90); BASOPHILS # (AUTO) 0.1 10^3/uL (0.0-0.1); BASOPHILS % (AUTO) 1 % (0-10); EOSINOPHILS # (AUTO) 0.2 10^3/uL (0.0-0.3); EOSINOPHILS % (AUTO) 2 % (0-10); HEMATOCRIT 37 % (35-52); HEMOGLOBIN 12.3 G/DL (11.5-16.0); LYMPHOCYTES # (AUTO) 1.2 X 10^3 (1.0-4.0); LYMPHOCYTES % (AUTO) 12 % (12-44); MEAN CORPUSCULAR HEMOGLOBIN 31 PG (25-34); MEAN CORPUSCULAR HGB CONC 34 G/DL (32-36); MEAN CORPUSCULAR VOLUME 92 FL (80-99); MEAN PLATELET VOLUME 9.8 FL (7.4-10.4); MONOCYTES # (AUTO) 0.4 X 10^3 (0.0-1.0); MONOCYTES % (AUTO) 4 % (0-12); NEUTROPHILS # (AUTO) 8.3 X 10^3 (1.8-7.8); NEUTROPHILS % (AUTO) 82 % (42-75); PLATELET COUNT 218 10^3/uL (130-400); RED BLOOD COUNT 3.99 10^6/uL (4.35-5.85); RED CELL DISTRIBUTION WIDTH 17.4 % (10.0-14.5); RETICULOCYTE % 1.85 % (0.50-2.40); WHITE BLOOD COUNT 10.1 10^3/uL (4.3-11.0)
[2017-12-21 09:48] LABS: ALBUMIN 4.1 GM/DL (3.2-4.5); BILIRUBIN,TOTAL 0.3 MG/DL (0.1-1.0); CALCIUM 9.2 MG/DL (8.5-10.1); CREATININE SERUM 1.1 MG/DL (0.60-1.30); POTASSIUM 4.8 MMOL/L (3.6-5.0); TOTAL PROTEIN 7.5 GM/DL (6.4-8.2)
== END 2018-03-21 | disposition home or self-care (01) ==
LOC: ONC 08:56
PROVIDERS: ATTEND Internal Medicine Hematology & Oncology
DX: D50.9 Iron deficiency anemia, unspecified (principal); K29.50 Unspecified chronic gastritis without bleeding; K25.9 Gastric ulcer, unspecified as acute or chronic, without hemorrhage or perforation; N18.3 Chronic kidney disease, stage 3 (moderate); I12.9 Hypertensive chronic kidney disease with stage 1 through stage 4 chronic kidney disease, or unspecified chronic kidney disease; E11.22 Type 2 diabetes mellitus with diabetic chronic kidney disease; I25.10 Atherosclerotic heart disease of native coronary artery without angina pectoris; J45.909 Unspecified asthma, uncomplicated; G47.33 Obstructive sleep apnea (adult) (pediatric); E03.9 Hypothyroidism, unspecified; Z79.4 Long term (current) use of insulin; Z79.82 Long term (current) use of aspirin
CPT/HCPCS: 36415; 80053; 82728; 85025; 85045; 99213

== ENCOUNTER 2018-01-27 13:15 | Outpatient (CLI) | payer MEDICARE, OTHER ==
[~2018-01-27] VITALS: Ht 162.6 cm; Wt 111.1 kg
== END 2018-01-27 14:09 | disposition home or self-care (01) ==
LOC: PREOP 13:15
PROVIDERS: ATTEND Surgery
DX: Z01.818 Encounter for other preprocedural examination (principal)

== ENCOUNTER 2018-02-02 06:34 | Day surgery (SDC) | payer MEDICARE, OTHER ==
[~2018-02-02] VITALS: Ht 162.6 cm; Wt 111.1 kg
[2018-02-02] MEDS ORDERED: LACTATED RINGERS 1,000 ML IV STA (07:06)
[2018-02-02] MEDS ORDERED: HURRICAINE EXT TUBE (BENZOCAINE) XX PRN (07:15)
[2018-02-02] MEDS ORDERED: LACTATED RINGERS 1,000 ML IV ONE (07:25)
[2018-02-02] MEDS ORDERED: MIDAZOLAM 2 MG/2 ML (VERSED) VIAL ONE (07:29)
[2018-02-02] MEDS ORDERED: PROPOFOL INJECTION 50 ML IV ONE ×2 (07:29→08:41)
[2018-02-02 07:32] VITALS: BP 156/88
--- OUTSIDE RECORDS SUMMARY | 2018-02-02 07:51 | XMS REPORT | Clinical Summary ---
Author Author [facility] Organization [facility] Address Unknown Phone Unavailable Care Team Providers Care Acid Loader Name Role Phone PCP Unavailable Allergies Not on File Current Medications Not on file Active Problems Not on file Social History Tobacco Use Types Packs/Day Years Used Date Never Assessed Sex Assigned at Date Recorded Not on file Last Filed Vital Signs Not on file Plan of Treatment Not on file Results Not on filefrom Last 3 Months
[2018-02-02] MEDS ORDERED: ESMOLOL 100 MG/10 ML (BREVIBLOC) VIAL ONE (08:19)
--- NOTE | 2018-02-02 08:22 | Progress Note-Pre Operative ---
Pre-Operative Progress Note H&P Reviewed The H&P was reviewed, patient examined and no changes noted. Date Seen by Provider: Feb 02, 2018 Time Seen by Provider: 08:22 Date H&P Reviewed: Feb 02, 2018 Time H&P Reviewed: 08:22 Pre-Operative Diagnosis: gastrtis, fe def anemia MAIRLY PANDEY DO Feb 02, 2018 08:22
[2018-02-02] MEDS ORDERED: fentaNYL INJECTION 100 MCG/2 ML AMP ONE (08:41)
--- NOTE | 2018-02-02 09:12 | Progress Note-Post Operative ---
Post-Operative Progess Note Surgeon (s)/Outreach Consultant (s) Surgeon MARILY PANDEY DO Outreach Consultant: na Pre-Operative Diagnosis gastrtis, fe def anemia Post-Operative Diagnosis gastritis, normal colon Procedure & Operative Findings Date of Procedure 02/02/18 Procedure Performed/Findings egd c biopsies, colonoscopy Anesthesia Type per credit clerk Estimated Blood Loss Estimated blood loss (mL): none Specimens/Packing Specimens Removed antrum, body MARILY PANDEY DO Feb 02, 2018 09:12
--- NOTE | 2018-02-02 09:14 | Discharge Inst-Simple/Standard ---
Discharge Inst-Standard Patient Instructions/Follow Up Plan of Care/Instructions/FU: 2 weeks isaiah Activity as Tolerated: Yes Discharge Diet: Regular Diet MARILY PANDEY DO Feb 02, 2018 09:14
[2018-02-02 09:15] VITALS: BP 134/70
[2018-02-02 09:50] VITALS: BP 147/88
--- NOTE | 2018-02-02 09:54 | Anesthesia-General Post-Op ---
MAC Patient Condition Mental Status/LOC: Same as Preop Cardiovascular: Satisfactory Nausea/Vomiting: Absent Respiratory: Satisfactory Pain: Controlled Complications: Absent Post Op Complications Complications None Follow Up Care/Instructions Patient Instructions None needed. Anesthesiology Discharge Order Discharge Order Patient is doing well, no complaints, stable vital signs, no apparent adverse anesthesia problems. No complications reported per nursing. LEON NAVARRO CRNA Feb 02, 2018 09:54
[2018-02-02 10:30] VITALS: BP 123/78
[2018-02-02 10:45] VITALS: BP 123/78
--- NOTE | 2018-02-02 14:13 | OPERATIVE REPORT ---
DATE OF SERVICE: 02/02/2018 PREOPERATIVE DIAGNOSES: Gastritis, iron deficiency anemia. POSTOPERATIVE DIAGNOSES: Gastritis, hiatal hernia, normal colon. PROCEDURES PERFORMED: Esophagogastroduodenoscopy with biopsies, colonoscopy. SURGEON: Marily Pulido DO. ANESTHESIA: Per EXTRACORPOREAL TECHNICIAN. ESTIMATED BLOOD LOSS: None. COMPLICATIONS: None. INDICATIONS: The patient is a 62-year-old female, clinically with gastritis and she had some iron deficiency anemia. She understands risks and benefits of procedure and wished to proceed with procedure. Consent was signed on the chart. DESCRIPTION OF PROCEDURE: The patient was taken to the endoscopy suite, placed in left lateral recumbent position. Timeout was performed. Scope was inserted in the mouth, down the esophagus, stomach and into the duodenum without difficulty. There are no polyps, masses or ulcerations in the duodenum. Scope was slowly retracted back to the stomach where it was further insufflated. Erythematous changes were present around the body and antrum. Biopsies of the antrum and body were obtained. Scope was retroflexed noting a hiatal hernia, no other pathology noted. Scope was returned to its normal position within the stomach. There are no polyps, masses or ulcerations. Scope was slowly retracted back into the distal esophagus, which had normal appearance. There are no polyps, masses or ulcerations. Scope was slowly retracted back until completely removed, noting no other pathology. Digital rectal exam was performed. No palpable polyps, masses or ulcerations. Scope was inserted in the rectum, advanced all the way to the cecum with minimal difficulty. Prep was adequate with irrigation and suction. Scope was then slowly retracted back. No polyps, mass or ulceration in the cecum, ascending, transverse, descending, sigmoid colon. Once in the rectum, scope was retroflexed noting no other pathology. Scope was returned to its normal position, slowly withdrawn until completely removed. The patient tolerated the procedure well without any complications. She was taken to recovery room in stable condition. RECOMMENDATIONS: The patient is to continue on current medications. The patient is to follow up in the office in 2 weeks to discuss pathology results. The patient will need repeat colonoscopy in 10 years unless family history of colon cancer or personal history of polyps, which would then be in 5 years. Job ID: [id number] DocumentID: [id number] Dictated Date: 02/02/2018 09:17:30 Reel Cart Operator Date: 02/02/2018 14:12:30 Dictated By: MARILY PULIDO DO
== END 2018-02-02 10:45 | disposition home or self-care (01) ==
LOC: ENDO 06:34
PROVIDERS: ATTEND Surgery
DX: K29.70 Gastritis, unspecified, without bleeding (principal); K21.9 Gastro-esophageal reflux disease without esophagitis; K44.9 Diaphragmatic hernia without obstruction or gangrene; D50.9 Iron deficiency anemia, unspecified; E11.9 Type 2 diabetes mellitus without complications; I25.10 Atherosclerotic heart disease of native coronary artery without angina pectoris; I10 Essential (primary) hypertension; J45.909 Unspecified asthma, uncomplicated; J44.9 Chronic obstructive pulmonary disease, unspecified; G47.33 Obstructive sleep apnea (adult) (pediatric); E66.01 Morbid (severe) obesity due to excess calories; Z68.41 Body mass index [BMI] 40.0-44.9, adult; Z95.5 Presence of coronary angioplasty implant and graft; Z79.4 Long term (current) use of insulin; Z79.82 Long term (current) use of aspirin; Z79.899 Other long term (current) drug therapy
CPT/HCPCS: 82962

== ENCOUNTER → 2018-02-23 | Outpatient (CLI) | payer MEDICARE, OTHER ==
[~2018-02-23] MED LIST changes: +IOHEXOL 350 MG/ML 100 ML (OMNIPAQUE 350) VIAL IV ONE; +NS 100 ML (IVPB) BAG IV ONE; +RECEIVED CONTRAST (Hold Metformin) IV SCH
[2018-02-23 08:46] LABS: CREATININE SERUM 1.07 MG/DL (0.60-1.30)
--- NOTE | 2018-02-23 10:08 | Diagnostic Imaging Report ---
PROCEDURE: CT chest with contrast only. TECHNIQUE: Multiple contiguous axial images were obtained through the chest after administration of intravenous contrast. INDICATION: Restrictive lung disease. COMPARISON: 11/03/2017 FINDINGS: There is no significant mediastinal, axillary and/or hilar lymphadenopathy. The severity of mediastinal lymphadenopathy appears diminished. A few mildly prominent axillary lymph nodes are present. Largest in left axilla short axis dimension 8 mm. Heart size is enlarged. Scattered coronary artery calcification. Prominent calcification of the mitral valve. No pericardial effusion. Small hiatal hernia present. The lung garcia overall appear to be relatively normal. There is noted slight asymmetric elevated right diaphragm appearing unchanged from prior study. Lung garcia overall are clear. No infiltrate. Very slight groundglass opacities about the right lung base but appears less pronounced from prior study. No findings to suggest significant fibrosis. No significant pleural effusion. Likely hepatomegaly and hepatic steatosis present. Few calcified granulomas within the spleen. Gallbladder absent. Advanced degenerative changes about the thoracic spine with bridging osteophytes at multiple levels. IMPRESSION: 1. Negative for acute abnormality of the chest. The previously noted groundglass opacities of the lung garcia are largely diminished. No current consolidating infiltrate. Lung volumes overall appear to be relatively normal. 2. Cardiac enlargement with scattered coronary artery and mitral valve calcifications. Dictated by: Dictated on workstation # [id number]
[2018-02-23 11:27] LABS: ABG BASE EXCESS 4.6 MMOL/L (-2.5-2.5); ABG OXYGEN SATURATION 99 % (94-100); ABG PCO2 45 MMHG (35-45); ABG PH 7.42 (7.37-7.43); ABG PO2 119 MMHG (79-93); ABG TCO2 30.4 MMOL/L (21.0-31.0)
[2018-02-23 11:30] LABS: ALLENS TEST YES-POS; INSPIRED O2 3
[2018-02-23 11:31] LABS: PATIENT TEMP 97.6; VENTILATOR NO
== END ==
LOC: RAD 08:19
PROVIDERS: ATTEND Nurse Practitioner Family
DX: J45.909 Unspecified asthma, uncomplicated (principal); I25.10 Atherosclerotic heart disease of native coronary artery without angina pectoris; I05.9 Rheumatic mitral valve disease, unspecified; J98.4 Other disorders of lung
CPT/HCPCS: 36415; 71260; 82565; 82805; 84520

== ENCOUNTER 2018-03-18 09:00 | Outpatient (RCR) | payer MEDICARE, OTHER ==
[2017-12-22 08:50] VITALS: BP 120/70
[2017-12-22 09:47] VITALS: BP 160/60
[2017-12-31 09:00] VITALS: BP 140/80
[2017-12-31 10:00] VITALS: BP 135/70
[2018-01-07 09:00] VITALS: BP 130/78
[2018-01-07 10:00] VITALS: BP 125/70
[2018-01-12 09:00] VITALS: BP 128/60
[2018-01-12 10:00] VITALS: BP 138/60
[2018-01-21 09:00] VITALS: BP 132/73
[2018-01-21 10:00] VITALS: BP 132/68
[2018-01-26 08:45] VITALS: BP 150/60
[2018-01-26 09:45] VITALS: BP 140/64
[2018-02-09 08:40] VITALS: BP 170/80
[2018-02-09 10:00] VITALS: BP 140/60
[2018-02-11 08:50] VITALS: BP 160/60
[2018-02-11 09:56] VITALS: BP 110/72
[2018-02-16 09:00] VITALS: BP 123/70
[2018-02-16 10:00] VITALS: BP 141/50
[2018-02-25 08:50] VITALS: BP 130/60
[2018-02-25 11:44] VITALS: BP 130/60
[2018-03-04 08:25] VITALS: BP 118/72
[2018-03-04 09:30] VITALS: BP 118/60
[2018-03-18 09:00] VITALS: BP 148/50
[~2018-03-18 09:00] MED LIST changes: -IOHEXOL 350 MG/ML 100 ML (OMNIPAQUE 350) VIAL IV ONE; -NS 100 ML (IVPB) BAG IV ONE; -RECEIVED CONTRAST (Hold Metformin) IV SCH
[2018-03-23 08:30] VITALS: BP 137/70
[2018-03-23 09:35] VITALS: BP 170/50
== END 2018-03-22 | disposition home or self-care (01) ==
LOC: PULM 09:00
PROVIDERS: ATTEND Nurse Practitioner Family
DX: J98.4 Other disorders of lung (principal); R06.02 Shortness of breath; R09.02 Hypoxemia

== ENCOUNTER 2018-03-30 20:05 | Outpatient (CLI) | payer MEDICARE, OTHER ==
[~2018-03-30 20:05] MED LIST changes: -AMLO10TA6 PO; +AMLO10TA7 PO; -AMLO5TAB7 PO; +AMLO5TAB9 PO; +LOSA50TA63 PO; -LOSA50TA7 PO
== END 2018-03-31 06:10 | disposition home or self-care (01) ==
LOC: SLEEP 20:05
PROVIDERS: ATTEND Nurse Practitioner Family
DX: G47.33 Obstructive sleep apnea (adult) (pediatric) (principal); R09.02 Hypoxemia; J45.909 Unspecified asthma, uncomplicated; R07.89 Other chest pain; J98.4 Other disorders of lung; R06.02 Shortness of breath
CPT/HCPCS: 95810

== ENCOUNTER 2018-04-26 08:24 | Outpatient (RCR) | payer MEDICARE, OTHER ==
[2018-04-21 08:50] LABS: ABSOLUTE RETIC # 71 10e9/L (24-90); BASOPHILS % (AUTO) 1 % (0-10); EOSINOPHILS # (AUTO) 0.3 10^3/uL (0.0-0.3); EOSINOPHILS % (AUTO) 3 % (0-10); HEMATOCRIT 36 % (35-52); HEMOGLOBIN 11.9 G/DL (11.5-16.0); LYMPHOCYTES # (AUTO) 1.4 X 10^3 (1.0-4.0); LYMPHOCYTES % (AUTO) 16 % (12-44); MEAN CORPUSCULAR HEMOGLOBIN 32 PG (25-34); MEAN CORPUSCULAR HGB CONC 33 G/DL (32-36); MEAN CORPUSCULAR VOLUME 98 FL (80-99); MEAN PLATELET VOLUME 9.3 FL (7.4-10.4); MONOCYTES # (AUTO) 0.4 X 10^3 (0.0-1.0); MONOCYTES % (AUTO) 4 % (0-12); NEUTROPHILS # (AUTO) 6.4 X 10^3 (1.8-7.8); NEUTROPHILS % (AUTO) 76 % (42-75); PLATELET COUNT 243 10^3/uL (130-400); RED CELL DISTRIBUTION WIDTH 12.8 % (10.0-14.5); RETICULOCYTE % 1.91 % (0.50-2.40); WHITE BLOOD COUNT 8.4 10^3/uL (4.3-11.0)
[2018-04-21 09:11] LABS: BILIRUBIN,TOTAL 0.4 MG/DL (0.1-1.0); CALCIUM 8.9 MG/DL (8.5-10.1); CREATININE SERUM 1.06 MG/DL (0.60-1.30); POTASSIUM 4.2 MMOL/L (3.6-5.0); TOTAL PROTEIN 7.3 GM/DL (6.4-8.2)
== END 2018-07-20 | disposition home or self-care (01) ==
LOC: ONC 08:24
PROVIDERS: ATTEND Internal Medicine Hematology & Oncology
DX: D50.9 Iron deficiency anemia, unspecified (principal); K29.50 Unspecified chronic gastritis without bleeding; K25.9 Gastric ulcer, unspecified as acute or chronic, without hemorrhage or perforation; N18.3 Chronic kidney disease, stage 3 (moderate); I12.9 Hypertensive chronic kidney disease with stage 1 through stage 4 chronic kidney disease, or unspecified chronic kidney disease; E11.22 Type 2 diabetes mellitus with diabetic chronic kidney disease; I25.10 Atherosclerotic heart disease of native coronary artery without angina pectoris; J45.909 Unspecified asthma, uncomplicated; G47.33 Obstructive sleep apnea (adult) (pediatric); E03.9 Hypothyroidism, unspecified; Z79.4 Long term (current) use of insulin; Z79.82 Long term (current) use of aspirin
CPT/HCPCS: 36415; 80053; 82728; 85025; 85045; 99213

== ENCOUNTER 2018-05-07 20:33 | Outpatient (CLI) | payer MEDICARE, OTHER | END 2018-05-08 06:53 | disposition home or self-care (01) | LOC: SLEEP 20:33 | PROVIDERS: ATTEND Nurse Practitioner Family | DX: G47.33 Obstructive sleep apnea (adult) (pediatric) (principal); J45.909 Unspecified asthma, uncomplicated; R07.89 Other chest pain; J30.9 Allergic rhinitis, unspecified; J98.4 Other disorders of lung; R06.02 Shortness of breath; R09.02 Hypoxemia | CPT/HCPCS: 95811 ==

== ENCOUNTER 2018-06-01 09:00 | Outpatient (RCR) | payer MEDICARE, OTHER ==
[2018-03-30 08:20] VITALS: BP 123/60
[2018-03-30 09:12] VITALS: BP 160/60
[2018-04-01 08:50] VITALS: BP 140/60
[2018-04-01 09:45] VITALS: BP 140/60
[2018-04-06 09:48] VITALS: BP 120/60
[2018-04-06 10:45] VITALS: BP 140/60
[2018-04-08 08:42] VITALS: BP 124/82
[2018-04-08 08:50] VITALS: BP 124/82
[2018-04-08 09:48] VITALS: BP 120/60
[2018-04-13 09:00] VITALS: BP 120/60
[2018-04-13 10:00] VITALS: BP 160/60
[2018-04-27 08:20] VITALS: BP 160/60
[2018-04-27 09:00] VITALS: BP 132/64
[2018-04-29 09:00] VITALS: BP 140/60
[2018-04-29 10:00] VITALS: BP 125/60
[2018-05-04 09:00] VITALS: BP 142/70
[2018-05-04 10:00] VITALS: BP 132/60
[2018-05-11 08:30] VITALS: BP 118/60
[2018-05-11 09:35] VITALS: BP 115/50
[2018-05-13 08:43] VITALS: BP 156/60
[2018-05-13 09:47] VITALS: BP 128/50
[2018-05-20 09:00] VITALS: BP 130/70
[2018-05-20 09:40] VITALS: BP 120/50
[2018-05-27 08:30] VITALS: BP 141/60
[2018-05-27 09:30] VITALS: BP 140/80
[2018-06-01 08:30] VITALS: BP 160/50
[2018-06-01 09:30] VITALS: BP 138/62
== END 2018-06-30 | disposition home or self-care (01) ==
LOC: PULM 09:00
PROVIDERS: ATTEND Nurse Practitioner Family
DX: J98.4 Other disorders of lung (principal); R06.02 Shortness of breath; R09.02 Hypoxemia

== ENCOUNTER 2018-06-01 15:41 | Emergency (ER) | payer MEDICARE, OTHER ==
[~2018-06-01] VITALS: Ht 162.6 cm; Wt 113.4 kg
[2018-06-01 16:28] LABS: BASOPHILS # (AUTO) 0.1 10^3/uL (0.0-0.1); BASOPHILS % (AUTO) 1 % (0-10); EOSINOPHILS # (AUTO) 0.3 10^3/uL (0.0-0.3); EOSINOPHILS % (AUTO) 3 % (0-10); HEMATOCRIT 36 % (35-52); HEMOGLOBIN 11.5 G/DL (11.5-16.0); LYMPHOCYTES # (AUTO) 1.7 X 10^3 (1.0-4.0); LYMPHOCYTES % (AUTO) 17 % (12-44); MEAN CORPUSCULAR HEMOGLOBIN 32 PG (25-34); MEAN CORPUSCULAR HGB CONC 32 G/DL (32-36); MEAN CORPUSCULAR VOLUME 98 FL (80-99); MEAN PLATELET VOLUME 10.1 FL (7.4-10.4); MONOCYTES # (AUTO) 0.4 X 10^3 (0.0-1.0); MONOCYTES % (AUTO) 4 % (0-12); NEUTROPHILS # (AUTO) 7.4 X 10^3 (1.8-7.8); NEUTROPHILS % (AUTO) 75 % (42-75); PLATELET COUNT 216 10^3/uL (130-400); RED CELL DISTRIBUTION WIDTH 12.3 % (10.0-14.5); WHITE BLOOD COUNT 9.9 10^3/uL (4.3-11.0)
--- NOTE | 2018-06-01 16:30 | ED Cardiac General ---
History of Present Illness General Chief Complaint: Cardiac/General Problems Stated Complaint: HEART RATE PROBLEMS Nursing Triage Note: PT ARRIVED POV WITH FRIEND WITH C/O IRREGULAR HEART RATE. PT STATES HEARTRATE WILL BE 40 THEN GO TO 120. HER DOCTOR SENT HER TO THE ED. PT ONLY OTHER SYMPTOMS ARE FEELING TIRED. Source: patient Exam Limitations: no limitations History of Present Illness Date Seen by Provider: Jun 01, 2018 Time Seen by Provider: 16:06 Initial Comments The patient presents to the ER by private conveyance with significant other and chief complaint that today since this morning is been having some irregular heart rate. She says she usually checks her heart rate 4 times a day because she has COPD. She says her heart rates been anywhere from 2240. She denies a history of atrial fibrillation. She denies palpitations chest pain shortness of breath, cough, fevers chills nausea vomiting sweats. She does have a history of coronary stent and has had her carotids surgically addressed. She follows with a admissions rn at [place], [place]. She's never had this problem with irregular heartbeat before. She is not on a blood thinner. She takes her medications routinely. She is diabetic and takes stress either 18 units twice a day as well as metformin and glipizide. She is followed by Dr. HERMAN. She denies any chest pain now. She takes metoprolol 25 mg as well as Synthroid 100 g a day. Allergies and Home Medications Allergies Coded Allergies: Penicillins (Verified Allergy, Unknown, 10/22/06) acetaminophen (Verified Allergy, Unknown, 10/22/06) codeine (Verified Allergy, Unknown, UPSET STOMACH, 10/23/06) morphine (Unverified Allergy, Unknown, 12/12/14) propoxyphene (Verified Allergy, Unknown, 10/22/06) topiramate (Verified Allergy, Unknown, 10/22/06) Home Medications Acetaminophen 500 Mg Tablet, 1,000 MG PO Q6H PRN for PAIN-MILD, (Reported) Albuterol Sulfate 18 Gm Hfa.aer.ad, 2 PUFF INH Q4H PRN for SHORTNESS OF BREATH, (Reported) Amitriptyline HCl 75 Mg Tablet, 75 MG PO HS, (Reported) Amlodipine Besylate 10 Mg Tablet, 5 MG PO DAILY, (Reported) Aspirin 81 Mg Tablet.dr, 81 MG PO DAILY, (Reported) Atorvastatin Calcium 10 Mg Tablet, 10 MG PO DAILY, (Reported) Budesonide/Formoterol Fumarate 10.2 Gm Hfa.aer.ad, 2 PUFF IH BID, (Reported) Cetirizine HCl 10 Mg Tablet, 10 MG PO DAILY, (Reported) Cholecalciferol (Vitamin D3) 5,000 Unit Capsule, 5,000 UNIT PO BID, (Reported) Cyclobenzaprine HCl 10 Mg Tablet, 10 MG PO BID PRN for MUSCLE SPASMS, (Reported) Fluticasone Propionate 16 Gm Stopover.susp, 2 SPRAYS NS HS, (Reported) Gabapentin 400 Mg Capsule, 400 MG PO TID, (Reported) Glipizide 5 Mg Tablet, 5 MG PO DAILY, (Reported) Insulin Degludec 200 Unit/1 Ml Insuln.pen, 12 UNITS SC BID, (Reported) Levothyroxine Sodium 100 Mcg Tablet, 100 MCG PO DAILY, (Reported) Lorazepam 1 Mg Tablet, 1 MG PO DAILY PRN for ANXIETY, (Reported) Lorazepam 1 Mg Tablet, 1 MG PO HS, (Reported) Losartan Potassium 50 Mg Tablet, 50 MG PO DAILY, (Reported) Meclizine HCl 25 Mg Tablet, 25 MG PO Q6H PRN for DIZZINESS Prescribed by: DAVIN ADHIKARI on 04/07/16 0323 Metformin HCl 1,000 Mg Tablet, 1,000 MG PO BID, (Reported) Metoprolol Succinate 25 Mg Tab.er.24h, 25 MG PO DAILY, (Reported) Montelukast Sodium 10 Mg Tablet, 10 MG PO HS, (Reported) Multivitamin 1 Each Tablet, 1 TAB PO DAILY, (Reported) Pantoprazole Sodium 40 Mg Tablet.dr, 40 MG PO DAILY Prescribed by: MARILY PANDEY on 11/10/17837 Sucralfate 1 Gm Tablet, 1 GM PO Q6H Prescribed by: MARILY PANDEY on 11/10/17837 Tramadol HCl 50 Mg Tablet, 50 MG PO Q4H PRN for PAIN-MODERATE, (Reported) Vitamin B Complex 1 Each Capsule, 1 CAP PO DAILY, (Reported) Patient Home Medication List Home Medication List Reviewed: Yes Review of Systems Review of Systems Constitutional: No chills, No fever, No malaise EENTM: No Eye Pain, No Eye Tearing Respiratory: Denies Cough, Denies Shortness of Air Cardiovascular: Denies Chest Pain, Denies Edema Gastrointestinal: Denies Constipated, Denies Diarrhea, Denies Nausea, Denies Vomiting Genitourinary: Denies Burning, Denies Drainage Musculoskeletal: No back pain, No joint pain Past Xovvoao-Ddqwoh-Jqhucw Hx Patient Social History Alcohol Use: Denies Use Recreational Drug Use: No Smoking Status: Never a Smoker 2nd Hand Smoke Exposure: No Recent Foreign Travel: No Contact w/Someone Who Travel: No Recent Infectious Disease Expo: No Recent Hopitalizations: Yes (11/02/17-"LOW OXYGEN") Physical Abuse: No Sexual Abuse: No Mistreated: No Fear: No Immunizations Up To Date Tetanus Booster (TDap): Unknown Date of Pneumonia Vaccine: Feb 05, 2017 Date of Influenza Vaccine: Dec 21, 2017 Seasonal Allergies Seasonal Allergies: No Past Medical History Surgeries: Yes (FOOT) Appendectomy, Coronary Stent, Gallbladder, Orthopedic, Thyroidectomy Respiratory: Yes (CPAP) Asthma, Sleep Apnea, COPD Currently Using CPAP: Yes Currently Using BIPAP: No Cardiac: Yes (STENT) Cardiomyopathy, Coronary Artery Disease, High Cholesterol, Hypertension Neurological: No 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 Sexually Transmitted Disease: No HIV/AIDS: No UTI-Chronic Gastrointestinal: No Musculoskeletal: Yes (ARTHRITIS, LUPUS) Arthritis Endocrine: Yes Diabetes, Insulin dep, Hypothyroidsim HEENT: No Cancer: No Psychosocial: Yes Anxiety, Depression Integumentary: No Blood Disorders: No Adverse Reaction/Blood Tranf: No Family Medical History Alzheimer's disease G8 SISTER Diabetes mellitus 19 FATHER Hypertension 19 FATHER 19 MOTHER Myocardial infarction 19 FATHER 19 MOTHER Neoplasm G8 SISTER Physical Exam Vital Signs Vital Signs - First Documented 06/01/18 15:48 Temp 98.8 Pulse 103 Resp 20 B/P (MAP) 174/69 (104) Pulse Ox 91 O2 Delivery Nasal Cannula Capillary Refill : Less Than 3 Seconds Height, Weight, BMI Height: 5'4.00" Weight: 250lbs. 6.0oz. 113.527613ew; 42.1 BMI Method:Stated General Appearance: No Apparent Distress, Anxious HEENT: PERRL/EOMI, Normal ENT Inspection, Pharynx Normal, Moist Mucous Membranes Neck: Full Range of Motion, Normal Inspection Respiratory: Lungs Clear, Normal Breath Sounds, No Accessory Muscle Use, No Respiratory Distress Cardiovascular: Regular Rate, Rhythm, No Edema, Normal Peripheral Pulses, Other (rate is running between 90 and 105.) Extremity: Normal Capillary Refill, Normal Inspection, No Pedal Edema Neurologic/Psychiatric: Alert, Oriented x3, No Motor/Sensory Deficits Skin: Normal Color, Warm/Dry Progress/Results/Core Measures Results/Orders Lab Results Laboratory Tests Test 06/01/18 16:03 Range/Units White Blood Count 9.9 4.3-11.0 10^3/uL Red Blood Count 3.64 L 4.35-5.85 10^6/uL Hemoglobin 11.5 11.5-16.0 G/DL Hematocrit 36 35-52 % Mean Corpuscular Volume 98 80-99 FL Mean Corpuscular Hemoglobin 32 25-34 PG Mean Corpuscular Hemoglobin Concent 32 32-36 G/DL Red Cell Distribution Width 12.3 10.0-14.5 % Platelet Count 216 130-400 10^3/uL Mean Platelet Volume 10.1 7.4-10.4 FL Neutrophils (%) (Auto) 75 42-75 % Lymphocytes (%) (Auto) 17 12-44 % Monocytes (%) (Auto) 4 0-12 % Eosinophils (%) (Auto) 3 0-10 % Basophils (%) (Auto) 1 0-10 % Neutrophils # (Auto) 7.4 1.8-7.8 X 10^3 Lymphocytes # (Auto) 1.7 1.0-4.0 X 10^3 Monocytes # (Auto) 0.4 0.0-1.0 X 10^3 Eosinophils # (Auto) 0.3 0.0-0.3 10^3/uL Basophils # (Auto) 0.1 0.0-0.1 10^3/uL Sodium Level 136 135-145 MMOL/L Potassium Level 4.2 3.6-5.0 MMOL/L Chloride Level 102 98-107 MMOL/L Carbon Dioxide Level 25 21-32 MMOL/L Anion Gap 9 5-14 MMOL/L Blood Urea Nitrogen 13 7-18 MG/DL Creatinine 1.03 0.60-1.30 MG/DL Estimat Glomerular Filtration Rate 54 BUN/Creatinine Ratio 13 Glucose Level 324 H 70-105 MG/DL Calcium Level 8.5 8.5-10.1 MG/DL Corrected Calcium 8.7 8.5-10.1 MG/DL Magnesium Level 1.4 L 1.8-2.4 MG/DL Total Bilirubin 0.3 0.1-1.0 MG/DL Aspartate Amino Transf (AST/SGOT) 38 H 5-34 U/L Alanine Aminotransferase (ALT/SGPT) 36 0-55 U/L Alkaline Phosphatase 125 40-136 U/L Troponin I < 0.028 <0.028 NG/ML Total Protein 6.8 6.4-8.2 GM/DL Albumin 3.8 3.2-4.5 GM/DL Thyroid Stimulating Hormone (TSH) 6.67 H 0.35-4.94 UIU/ML Free Thyroxine 0.95 0.70-1.48 NG/DL My Orders Orders - TO GRAY Cbc With Automated Diff (06/01/18 16:21) Comprehensive Metabolic Panel (06/01/18 16:21) Magnesium (06/01/18 16:21) Thyroid Stimulating Hormone (06/01/18 16:21) Troponin I (06/01/18 16:21) Chest 1 View, Ap/Pa Only (06/01/18 16:21) Continuous Ekg Monitoring (06/01/18 16:21) Ekg Tracing (06/01/18 16:21) Free T4 (Free Thyroxine) (06/01/18 17:12) Magnesium Oxide Tablet (Mag Ox Tablet) (06/01/18 17:30) Medications Given in ED Current Medications Medications Dose Ordered Sig/Katrina Route Start Time Stop Time Status Last Admin Dose Admin Magnesium Oxide 400 mg ONCE ONCE PO 06/01/18 17:30 06/01/18 17:31 DC 06/01/18 17:34 400 MG Vital Signs/I&O 06/01/18 15:48 Temp 98.8 Pulse 103 Resp 20 B/P (MAP) 174/69 (104) Pulse Ox 91 O2 Delivery Nasal Cannula Blood Pressure Mean: 104 Progress Progress Note #1: Time: 16:28 Progress Note The patient states she noted her heart rate down in the 20s and as high as the 140s even since being on the monitor here in the ER but no alarms were triggered and a review of the telemetry did not back that up. The patient does have a significant amount of anxiety and that may be contributed to her heart rate and blood pressure being elevated. We'll continue to monitor check some basic labs to include a TSH and if we don't find anything we'll have her follow- up with primary care and/or cardiology. Progress Note #2: Time: 17:13 Progress Note Labs are okay. Patient has had a steady heart rate in the 85-95 range since being here. Resting comfortably. Other vital signs are unremarkable. TSH is borderline elevated so we added a free T4. We'll discharge to follow-up with primary care. Initial ECG Impression Date: Jun 01, 2018 Initial ECG Impression Time: 15:58 Initial ECG Rate: 97 Initial ECG Rhythm: Normal Sinus Initial ECG Intervals: QT (473) Initial ECG Impression: Normal, Nonspecific Changes Initial ECG Comparisson: Unchanged Comment No significant ST elevation or depression. Diagnostic Imaging Diagonstic Imaging: Xray Plain Films/CT/US/NM/MRI: chest (1v) Comments [facility] [place], [place] NAME: RUDDY GARLAND [facility] REC#: [id number] PT STATUS: REG ER : 1955 PHYSICIAN: TO GRAY MD ADMIT DATE: 06/01/18/ER Draft Date of Exam:06/01/18 CHEST 1 VIEW, AP/PA ONLY INDICATION: Irregular heart rate. TIME OF EXAM: 4:34 p.m. COMPARISON: Correlation is made with prior study from 10/29/2017. FINDINGS: The heart is enlarged. No infiltrate or failure is seen. No effusion or pneumothorax is detected. IMPRESSION: Cardiomegaly. No acute feature is detected. Dictated on workstation # [id number] Dict: 06/01/18 1639 Trans: 06/01/18 1643 [id number] Interpreted by: BERENICE WHITE MD Electronically signed by: Reviewed: Reviewed by Me Departure Impression Primary Impression: Irregular heart beat Disposition: 01 HOME, SELF-CARE Condition: Stable Departure-Patient Inst. Decision time for Depature: 17:51 Referrals: KIYA HERMAN MD (PCP/Family) Primary Care Physician Patient Instructions: Lowering Your Risk of Heart Disease Add. Discharge Instructions: Your admissions rn and get a follow-up appointment in the next few weeks. Discuss your irregular heartbeat. You may also follow-up with primary care same reason. If you begin to have significant chest pain or shortness of breath then you should return to the nearest ER. All discharge instructions reviewed with patient and/or family. Voiced understanding. TO GRAY Jun 01, 2018 16:30
[2018-06-01 16:40] LABS: ALANINE AMINOTRANSFERASE 36 U/L (0-55); ALBUMIN 3.8 GM/DL (3.2-4.5); ALKALINE PHOSPHATASE 125 U/L (40-136); BILIRUBIN,TOTAL 0.3 MG/DL (0.1-1.0); BUN/CREATININE RATIO 13; CALCIUM 8.5 MG/DL (8.5-10.1); CARBON DIOXIDE 25 MMOL/L (21-32); CHLORIDE 102 MMOL/L (98-107); CREATININE SERUM 1.03 MG/DL (0.60-1.30); GFR ESTIMATED 54; GLUCOSE 324 MG/DL (70-105); MAGNESIUM 1.4 MG/DL (1.8-2.4); POTASSIUM 4.2 MMOL/L (3.6-5.0); SODIUM 136 MMOL/L (135-145); TOTAL PROTEIN 6.8 GM/DL (6.4-8.2)
--- NOTE | 2018-06-01 16:43 | Diagnostic Imaging Report ---
INDICATION: Irregular heart rate. TIME OF EXAM: 4:34 p.m. COMPARISON: Correlation is made with prior study from 10/29/2017. FINDINGS: The heart is enlarged. No infiltrate or failure is seen. No effusion or pneumothorax is detected. IMPRESSION: Cardiomegaly. No acute feature is detected. Dictated by: Dictated on workstation # [id number]
[2018-06-01] MEDS ORDERED: MAGNESIUM OXIDE (MAG-OX)400 MG TAB PO ONE (17:30)
[2018-06-01 17:59] VITALS: BP 152/98
== END 2018-06-01 17:59 | disposition home or self-care (01) ==
LOC: EDUNIT# 15:41 → ER 15:43
DX: I49.9 Cardiac arrhythmia, unspecified (principal); J44.9 Chronic obstructive pulmonary disease, unspecified; E11.9 Type 2 diabetes mellitus without complications; I42.9 Cardiomyopathy, unspecified; G47.30 Sleep apnea, unspecified; I10 Essential (primary) hypertension; M32.9 Systemic lupus erythematosus, unspecified; E03.9 Hypothyroidism, unspecified; F41.9 Anxiety disorder, unspecified; F32.9 Major depressive disorder, single episode, unspecified; E78.00 Pure hypercholesterolemia, unspecified; Z95.5 Presence of coronary angioplasty implant and graft; Z87.440 Personal history of urinary (tract) infections; Z88.0 Allergy status to penicillin; Z88.6 Allergy status to analgesic agent; Z82.49 Family history of ischemic heart disease and other diseases of the circulatory system; Z88.5 Allergy status to narcotic agent; Z90.89 Acquired absence of other organs; Z88.8 Allergy status to other drugs, medicaments and biological substances; Z79.51 Long term (current) use of inhaled steroids; Z79.82 Long term (current) use of aspirin; Z79.4 Long term (current) use of insulin
CPT/HCPCS: 36415; 71045; 80053; 83735; 84439; 84443; 84484; 85025; 93005

== ENCOUNTER 2018-09-24 07:56 | Outpatient (RCR) | payer MEDICARE, OTHER ==
[2018-09-13 08:43] LABS: BASOPHILS # (AUTO) 0.1 10^3/uL (0.0-0.1); BASOPHILS % (AUTO) 1 % (0-10); EOSINOPHILS # (AUTO) 0.3 10^3/uL (0.0-0.3); EOSINOPHILS % (AUTO) 3 % (0-10); HEMATOCRIT 36 % (35-52); HEMOGLOBIN 11.4 G/DL (11.5-16.0); LYMPHOCYTES # (AUTO) 1.2 X 10^3 (1.0-4.0); LYMPHOCYTES % (AUTO) 13 % (12-44); MEAN CORPUSCULAR HEMOGLOBIN 31 PG (25-34); MEAN CORPUSCULAR HGB CONC 32 G/DL (32-36); MEAN CORPUSCULAR VOLUME 98 FL (80-99); MEAN PLATELET VOLUME 9.4 FL (7.4-10.4); MONOCYTES # (AUTO) 0.4 X 10^3 (0.0-1.0); MONOCYTES % (AUTO) 4 % (0-12); NEUTROPHILS # (AUTO) 7.4 X 10^3 (1.8-7.8); NEUTROPHILS % (AUTO) 80 % (42-75); PLATELET COUNT 252 10^3/uL (130-400); RED CELL DISTRIBUTION WIDTH 12.8 % (10.0-14.5); WHITE BLOOD COUNT 9.2 10^3/uL (4.3-11.0)
[2018-09-13 09:10] LABS: ALBUMIN 3.9 GM/DL (3.2-4.5); BILIRUBIN,TOTAL 0.4 MG/DL (0.1-1.0); CALCIUM 9.1 MG/DL (8.5-10.1); CREATININE SERUM 1.01 MG/DL (0.60-1.30); POTASSIUM 4.6 MMOL/L (3.6-5.0); TOTAL PROTEIN 7.5 GM/DL (6.4-8.2)
== END 2018-12-12 | disposition home or self-care (01) ==
LOC: ONC 07:56
PROVIDERS: ATTEND Internal Medicine Hematology & Oncology
DX: D50.9 Iron deficiency anemia, unspecified (principal); K29.50 Unspecified chronic gastritis without bleeding; K25.9 Gastric ulcer, unspecified as acute or chronic, without hemorrhage or perforation; N18.3 Chronic kidney disease, stage 3 (moderate); I12.9 Hypertensive chronic kidney disease with stage 1 through stage 4 chronic kidney disease, or unspecified chronic kidney disease; E11.22 Type 2 diabetes mellitus with diabetic chronic kidney disease; I25.10 Atherosclerotic heart disease of native coronary artery without angina pectoris; J45.909 Unspecified asthma, uncomplicated; G47.33 Obstructive sleep apnea (adult) (pediatric); E03.9 Hypothyroidism, unspecified; Z79.4 Long term (current) use of insulin; Z79.82 Long term (current) use of aspirin
CPT/HCPCS: 36415; 80053; 82728; 85025; 99213

== ENCOUNTER 2018-11-05 16:10 | Emergency (ER) | payer MEDICARE, OTHER ==
[~2018-11-05] VITALS: Ht 162.6 cm; Wt 111.6 kg
--- NOTE | 2018-11-05 16:27 | ED Cough/URI ---
General Chief Complaint: Respiratory Problems Stated Complaint: SOB Source: patient Exam Limitations: no limitations History of Present Illness Date Seen by Provider: Nov 05, 2018 Time Seen by Provider: 16:26 Initial Comments To ER by private vehicle with reports of shortness of breath that began about 12:30 PM today. She has a history of some sort of lung disease but she states that it is not COPD. She wears oxygen at 3 L [id number]. Denies cough. Reports a lot of "mucus" in her throat and difficulty clearing it. Thinks that she may just be panicking, she used some new laundry detergent and suspects that the fragrances of that has worsened her lung disease. She also states that she is very anxious. Timing/Duration: this afternoon Prior Episodes/Possible Cause: frequent episodes Associated Symptoms: shortness of breath Allergies and Home Medications Allergies Coded Allergies: Penicillins (Verified Allergy, Unknown, 10/22/06) acetaminophen (Verified Allergy, Unknown, 10/22/06) codeine (Verified Allergy, Unknown, UPSET STOMACH, 10/23/06) morphine (Unverified Allergy, Unknown, 12/12/14) propoxyphene (Verified Allergy, Unknown, 10/22/06) topiramate (Verified Allergy, Unknown, 10/22/06) Home Medications Acetaminophen 500 Mg Tablet, 1,000 MG PO Q6H PRN for PAIN-MILD, (Reported) Albuterol Sulfate 18 Gm Hfa.aer.ad, 2 PUFF INH Q4H PRN for SHORTNESS OF BREATH, (Reported) Amitriptyline HCl 75 Mg Tablet, 75 MG PO HS, (Reported) Amlodipine Besylate 10 Mg Tablet, 5 MG PO DAILY, (Reported) Aspirin 81 Mg Tablet.dr, 81 MG PO DAILY, (Reported) Atorvastatin Calcium 10 Mg Tablet, 10 MG PO DAILY, (Reported) Budesonide/Formoterol Fumarate 10.2 Gm Hfa.aer.ad, 2 PUFF IH BID, (Reported) Cetirizine HCl 10 Mg Tablet, 10 MG PO DAILY, (Reported) Cholecalciferol (Vitamin D3) 5,000 Unit Capsule, 5,000 UNIT PO BID, (Reported) Cyclobenzaprine HCl 10 Mg Tablet, 10 MG PO BID PRN for MUSCLE SPASMS, (Reported) Fluticasone Propionate 16 Gm [place].susp, 2 SPRAYS NS HS, (Reported) Gabapentin 400 Mg Capsule, 400 MG PO TID, (Reported) Glipizide 5 Mg Tablet, 5 MG PO DAILY, (Reported) Insulin Degludec 200 Unit/1 Ml Insuln.pen, 12 UNITS SC BID, (Reported) Levothyroxine Sodium 100 Mcg Tablet, 100 MCG PO DAILY, (Reported) Lorazepam 1 Mg Tablet, 1 MG PO DAILY PRN for ANXIETY, (Reported) Lorazepam 1 Mg Tablet, 1 MG PO HS, (Reported) Losartan Potassium 50 Mg Tablet, 50 MG PO DAILY, (Reported) Meclizine HCl 25 Mg Tablet, 25 MG PO Q6H PRN for DIZZINESS Prescribed by: DAVIN ADHIKARI on 04/07/16 0323 Metformin HCl 1,000 Mg Tablet, 1,000 MG PO BID, (Reported) Metoprolol Succinate 25 Mg Tab.er.24h, 25 MG PO DAILY, (Reported) Montelukast Sodium 10 Mg Tablet, 10 MG PO HS, (Reported) Multivitamin 1 Each Tablet, 1 TAB PO DAILY, (Reported) Pantoprazole Sodium 40 Mg Tablet.dr, 40 MG PO DAILY Prescribed by: MARILY PANDEY on 11/10/17837 Sucralfate 1 Gm Tablet, 1 GM PO Q6H Prescribed by: MARILY PANDEY on 11/10/17837 Tramadol HCl 50 Mg Tablet, 50 MG PO Q4H PRN for PAIN-MODERATE, (Reported) Vitamin B Complex 1 Each Capsule, 1 CAP PO DAILY, (Reported) Patient Home Medication List Home Medication List Reviewed: Yes Review of Systems Review of Systems Constitutional: see HPI EENTM: see HPI Respiratory: see HPI, cough Cardiovascular: no symptoms reported Genitourinary: no symptoms reported Musculoskeletal: no symptoms reported Skin: no symptoms reported Psychiatric/Neurological: No Symptoms Reported Past Hciltit-Jecyvx-Azwxnr Hx Patient Social History 2nd Hand Smoke Exposure: No Recent Hopitalizations: Yes (11/02/17-"LOW OXYGEN") Immunizations Up To Date Tetanus Booster (TDap): Unknown Date of Pneumonia Vaccine: Feb 05, 2017 Date of Influenza Vaccine: Dec 21, 2017 Seasonal Allergies Seasonal Allergies: No Past Medical History Surgeries: Yes (FOOT) Appendectomy, Coronary Stent, Gallbladder, Orthopedic, Thyroidectomy Respiratory: Yes (CPAP) Asthma, Sleep Apnea, COPD Currently Using CPAP: Yes Currently Using BIPAP: No Cardiac: Yes (STENT) Cardiomyopathy, Coronary Artery Disease, High Cholesterol, Hypertension Neurological: No 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 Sexually Transmitted Disease: No HIV/AIDS: No UTI-Chronic Gastrointestinal: No Musculoskeletal: Yes (ARTHRITIS, LUPUS) Arthritis Endocrine: Yes Diabetes, Insulin dep, Hypothyroidsim HEENT: No Cancer: No Psychosocial: Yes Anxiety, Depression Integumentary: No Blood Disorders: No Adverse Reaction/Blood Tranf: No Family Medical History Alzheimer's disease G8 SISTER Diabetes mellitus 19 FATHER Hypertension 19 FATHER 19 MOTHER Myocardial infarction 19 FATHER 19 MOTHER Neoplasm G8 SISTER Physical Exam Vital Signs - First Documented 11/05/18 16:30 Temp 98.3 Pulse 99 Resp 19 B/P (MAP) 141/75 (97) Pulse Ox 100 O2 Delivery Nasal Cannula O2 Flow Rate 3.00 Capillary Refill : Height: 5'4.00" Weight: 250lbs. 6.0oz. 113.476061sm; 42.1 BMI Method:Stated General Appearance: WD/WN, no apparent distress Eyes: Bilateral Eye Normal Inspection, Bilateral Eye PERRL, Bilateral Eye EOMI HEENT: PERRL/EOMI, normal ENT inspection Respiratory: lungs clear, normal breath sounds, no respiratory distress, no accessory muscle use Gastrointestinal: normal bowel sounds, non tender, soft Extremities: normal range of motion, non-tender Neurologic/Psychiatric: alert, normal mood/affect, oriented x 3 Skin: normal color, warm/dry Progress/Results/Core Measures Suspected Sepsis SIRS Temperature: Pulse: Respiratory Rate: Laboratory Tests 11/05/18 16:30: White Blood Count 9.3 Blood Pressure / Mean: Laboratory Tests 11/05/18 16:30: Creatinine 1.21, Platelet Count 227, Total Bilirubin 0.2 Results/Orders Lab Results Laboratory Tests Test 11/05/18 16:30 Range/Units White Blood Count 9.3 4.3-11.0 10^3/uL Red Blood Count 3.54 L 4.35-5.85 10^6/uL Hemoglobin 11.2 L 11.5-16.0 G/DL Hematocrit 34 L 35-52 % Mean Corpuscular Volume 97 80-99 FL Mean Corpuscular Hemoglobin 32 25-34 PG Mean Corpuscular Hemoglobin Concent 33 32-36 G/DL Red Cell Distribution Width 12.6 10.0-14.5 % Platelet Count 227 130-400 10^3/uL Mean Platelet Volume 9.8 7.4-10.4 FL Neutrophils (%) (Auto) 76 H 42-75 % Lymphocytes (%) (Auto) 16 12-44 % Monocytes (%) (Auto) 5 0-12 % Eosinophils (%) (Auto) 2 0-10 % Basophils (%) (Auto) 0 0-10 % Neutrophils # (Auto) 7.1 1.8-7.8 X 10^3 Lymphocytes # (Auto) 1.5 1.0-4.0 X 10^3 Monocytes # (Auto) 0.5 0.0-1.0 X 10^3 Eosinophils # (Auto) 0.2 0.0-0.3 10^3/uL Basophils # (Auto) 0.0 0.0-0.1 10^3/uL Sodium Level 138 135-145 MMOL/L Potassium Level 4.4 3.6-5.0 MMOL/L Chloride Level 101 98-107 MMOL/L Carbon Dioxide Level 22 21-32 MMOL/L Anion Gap 15 H 5-14 MMOL/L Blood Urea Nitrogen 17 7-18 MG/DL Creatinine 1.21 0.60-1.30 MG/DL Estimat Glomerular Filtration Rate 45 BUN/Creatinine Ratio 14 Glucose Level 295 H 70-105 MG/DL Calcium Level 8.8 8.5-10.1 MG/DL Corrected Calcium 8.9 8.5-10.1 MG/DL Total Bilirubin 0.2 0.1-1.0 MG/DL Aspartate Amino Transf (AST/SGOT) 32 5-34 U/L Alanine Aminotransferase (ALT/SGPT) 31 0-55 U/L Alkaline Phosphatase 122 40-136 U/L Troponin I < 0.028 <0.028 NG/ML Total Protein 7.2 6.4-8.2 GM/DL Albumin 3.9 3.2-4.5 GM/DL My Orders Orders - MAGDY ZIEGLER INTERNET MARKETING ASSISTANT Cbc With Automated Diff (11/05/18 16:21) Comprehensive Metabolic Panel (11/05/18 16:21) Ua Culture If Indicated (11/05/18 16:21) Ed Iv/Invasive Line Start (11/05/18 16:21) Troponin I (11/05/18 16:21) Chest Pa/Lat (2 View) (11/05/18 16:21) Lorazepam Injection (Ativan Injection) (11/05/18 16:30) Medications Given in ED Current Medications Medications Dose Ordered Sig/Katrina Route Start Time Stop Time Status Last Admin Dose Admin Lorazepam 0.5 mg ONCE PRN IVP 11/05/18 16:30 11/05/18 16:37 0.5 MG Vital Signs/I&O 11/05/18 16:30 Temp 98.3 Pulse 99 Resp 19 B/P (MAP) 141/75 (97) Pulse Ox 100 O2 Delivery Nasal Cannula O2 Flow Rate 3.00 Capillary Refill : Departure Communication (Admissions) Left chest wall is very tender to palpation, she states she always has this and is no different than usual. She's been told this is arthritis. Impression Primary Impression: Anxiety Additional Impression: Chest wall pain Disposition: HOME, SELF-CARE Condition: Stable Departure-Patient Inst. Decision time for Depature: 17:37 Referrals: KIYA HERMAN MD (PCP/Family) Primary Care Physician Patient Instructions: NO INSTRUCTIONS GIVEN Add. Discharge Instructions: 1. Return to ER for any concerns. All discharge instructions reviewed with patient and/or family. Voiced understanding. MAGDY ZIEGLER INTERNET MARKETING ASSISTANT Nov 05, 2018 16:27
[2018-11-05] MEDS ORDERED: LORazepam INJ 2 MG/ML (ATIVAN) VIAL IVP PRN (16:30)
[2018-11-05 16:37] LABS: BASOPHILS % (AUTO) 0 % (0-10); EOSINOPHILS # (AUTO) 0.2 10^3/uL (0.0-0.3); EOSINOPHILS % (AUTO) 2 % (0-10); HEMATOCRIT 34 % (35-52); HEMOGLOBIN 11.2 G/DL (11.5-16.0); LYMPHOCYTES # (AUTO) 1.5 X 10^3 (1.0-4.0); LYMPHOCYTES % (AUTO) 16 % (12-44); MEAN CORPUSCULAR HEMOGLOBIN 32 PG (25-34); MEAN CORPUSCULAR HGB CONC 33 G/DL (32-36); MEAN CORPUSCULAR VOLUME 97 FL (80-99); MEAN PLATELET VOLUME 9.8 FL (7.4-10.4); MONOCYTES # (AUTO) 0.5 X 10^3 (0.0-1.0); MONOCYTES % (AUTO) 5 % (0-12); NEUTROPHILS # (AUTO) 7.1 X 10^3 (1.8-7.8); NEUTROPHILS % (AUTO) 76 % (42-75); PLATELET COUNT 227 10^3/uL (130-400); RED CELL DISTRIBUTION WIDTH 12.6 % (10.0-14.5); WHITE BLOOD COUNT 9.3 10^3/uL (4.3-11.0)
[2018-11-05 16:57] LABS: ALANINE AMINOTRANSFERASE 31 U/L (0-55); ALBUMIN 3.9 GM/DL (3.2-4.5); ALKALINE PHOSPHATASE 122 U/L (40-136); BILIRUBIN,TOTAL 0.2 MG/DL (0.1-1.0); BUN/CREATININE RATIO 14; CALCIUM 8.8 MG/DL (8.5-10.1); CARBON DIOXIDE 22 MMOL/L (21-32); CHLORIDE 101 MMOL/L (98-107); CREATININE SERUM 1.21 MG/DL (0.60-1.30); GFR ESTIMATED 45; GLUCOSE 295 MG/DL (70-105); POTASSIUM 4.4 MMOL/L (3.6-5.0); SODIUM 138 MMOL/L (135-145); TOTAL PROTEIN 7.2 GM/DL (6.4-8.2)
--- NOTE | 2018-11-05 17:06 | Diagnostic Imaging Report ---
INDICATION: Short of breath. FINDINGS: Two views of the chest show cardiomegaly with mild pulmonary venous distention. The lungs are clear. There is no effusion or pneumothorax. There is no acute bony abnormality. IMPRESSION: There is cardiomegaly with no failure. The chest is similar to a study from 06/01/2018. Dictated by: Dictated on workstation # [id number]
[2018-11-05 17:58] VITALS: BP 134/72
== END 2018-11-05 17:58 | disposition home or self-care (01) ==
LOC: ER 16:10 → EDUNIT# 16:10 → ER 17:58
DX: F41.9 Anxiety disorder, unspecified (principal); R07.89 Other chest pain; J44.9 Chronic obstructive pulmonary disease, unspecified; G47.30 Sleep apnea, unspecified; I10 Essential (primary) hypertension; E78.00 Pure hypercholesterolemia, unspecified; I25.10 Atherosclerotic heart disease of native coronary artery without angina pectoris; I42.9 Cardiomyopathy, unspecified; M32.9 Systemic lupus erythematosus, unspecified; E11.9 Type 2 diabetes mellitus without complications; E03.9 Hypothyroidism, unspecified; F32.9 Major depressive disorder, single episode, unspecified; Z87.440 Personal history of urinary (tract) infections; Z99.81 Dependence on supplemental oxygen; Z88.0 Allergy status to penicillin; Z88.5 Allergy status to narcotic agent; Z88.8 Allergy status to other drugs, medicaments and biological substances; Z79.82 Long term (current) use of aspirin; Z79.84 Long term (current) use of oral hypoglycemic drugs; Z90.49 Acquired absence of other specified parts of digestive tract; Z95.5 Presence of coronary angioplasty implant and graft; Z82.49 Family history of ischemic heart disease and other diseases of the circulatory system
CPT/HCPCS: 36415; 71046; 80053; 84484; 85025

== ENCOUNTER → 2018-12-06 | Outpatient (CLI) | payer MEDICARE, OTHER ==
--- NOTE | 2018-12-06 12:15 | Diagnostic Imaging Report ---
PROCEDURE: US Renal Bilateral. TECHNIQUE: Multiple real-time grayscale images were obtained over the kidneys in various projections bilaterally. INDICATION: Acute cystitis, dysuria. FINDINGS: The previous renal ultrasound exam of 12/09/2017 fail to show any sign of solid renal mass or hydronephrosis of either kidney. On this exam, both kidneys were identified. The right kidney measures 10.6 x 5.0 x 5.2 CM while the left kidney is estimated to be 10.0 x 5.5 x 5.0 CM. There is no evidence for solid renal mass or hydronephrosis. The renal cortices are normal in thickness and echogenicity. The bladder was imaged during the course of exam. The bladder is only partially filled and consequently not well evaluated. There is no obvious bladder abnormality evident. Neither ureteral jet was noted, however. IMPRESSION: 1. There is no evidence for solid renal mass or for an acute abnormality of either kidney. 2. The renal cortices are normal in thickness and echogenicity. 3. There is no obvious bladder abnormality noted. Dictated by: Dictated on workstation # [id number]
== END ==
LOC: RAD 09:15
PROVIDERS: ATTEND Nurse Practitioner Family
DX: N30.00 Acute cystitis without hematuria (principal)
CPT/HCPCS: 76770

== ENCOUNTER 2018-12-31 16:39 | Emergency (ER) | payer MEDICARE, OTHER ==
[~2018-12-31] VITALS: Ht 162 cm; Wt 111.0 kg
[2018-12-31] MEDS ORDERED: LACTATED RINGERS 1,000 ML IV ONE (18:53)
[2018-12-31 19:00] LABS: BILIRUBIN,URINE NEGATIVE (NEGATIVE); CLARITY,URINE CLEAR; COLOR,URINE YELLOW; GLUCOSE, URINE (UA) 3+ (NEGATIVE); KETONES,URINE NEGATIVE (NEGATIVE); LEUKOCYTE ESTERASE ,URINE 3+ (NEGATIVE); NITRITE,URINE POSITIVE (NEGATIVE); PH,URINE 6 (5-9); PROTEIN,URINE 2+ (NEGATIVE)
[2018-12-31] MEDS ORDERED: FAMOTIDINE 20MG/2ML IV (PEPCID) IV STA (19:02)
[2018-12-31 19:09] LABS: AMORPHOUS SEDIMENT,UR FEW AMOR URATES /LPF; BACTERIA,URINE MODERATE /HPF
[2018-12-31 19:12] LABS: BASOPHILS # (AUTO) 0.1 10^3/uL (0.0-0.1); BASOPHILS % (AUTO) 1 % (0-10); EOSINOPHILS # (AUTO) 0.2 10^3/uL (0.0-0.3); EOSINOPHILS % (AUTO) 2 % (0-10); HEMATOCRIT 37 % (35-52); HEMOGLOBIN 11.8 G/DL (11.5-16.0); LYMPHOCYTES # (AUTO) 2.3 X 10^3 (1.0-4.0); LYMPHOCYTES % (AUTO) 21 % (12-44); MEAN CORPUSCULAR HEMOGLOBIN 31 PG (25-34); MEAN CORPUSCULAR HGB CONC 32 G/DL (32-36); MEAN CORPUSCULAR VOLUME 96 FL (80-99); MEAN PLATELET VOLUME 8.9 FL (7.4-10.4); MONOCYTES # (AUTO) 0.5 X 10^3 (0.0-1.0); MONOCYTES % (AUTO) 5 % (0-12); NEUTROPHILS # (AUTO) 7.9 X 10^3 (1.8-7.8); NEUTROPHILS % (AUTO) 72 % (42-75); PLATELET COUNT 255 10^3/uL (130-400); RED CELL DISTRIBUTION WIDTH 12.8 % (10.0-14.5)
[2018-12-31] MEDS ORDERED: ANTACID SUSP 30 ML UDC (MYLANTA) PO ONE (19:15)
[2018-12-31] MEDS ORDERED: LIDOCAINE 2% VISCOUS 15 ML UDC PO ONE (19:15)
[2018-12-31] MEDS ORDERED: ONDANSETRON 4 MG/2 ML (SDV) Z0FRAN IVP ONE (19:15)
[2018-12-31 19:34] LABS: ALBUMIN 4.1 GM/DL (3.2-4.5); BILIRUBIN,TOTAL 0.3 MG/DL (0.1-1.0); CALCIUM 9.3 MG/DL (8.5-10.1); CREATININE SERUM 1.03 MG/DL (0.60-1.30); MAGNESIUM 1.6 MG/DL (1.6-2.4); POTASSIUM 4.2 MMOL/L (3.6-5.0); TOTAL PROTEIN 7.5 GM/DL (6.4-8.2)
--- NOTE | 2018-12-31 20:12 | ED GI ---
General Chief Complaint: Abdominal/GI Problems Stated Complaint: ABD PAIN,DIARRHEA Nursing Triage Note: YUE STATES THAT SHE HAS HAD DIARRHEA X4 DAYS. SHE HAS BEEN SEEING HER PCP WHO PUT HER ON PROBIOTICS AND IMMODIUM WITH NO LUCK. SHE IS HAVING EPIGASTRIC PAINS AND LOWER GI PAINS WELL. Sepsis Screen: Possible Sepsis Risk Source of Information: Patient Exam Limitations: No Limitations History of Present Illness Date Seen by Provider: Dec 31, 2018 Time Seen by Provider: 18:07 Initial Comments This 63-year-old woman presents to the emergency room with primary complaint of epigastric pain and lower abdominal pain for about 4 days. She has had a worsening of her chronic diarrhea. She is under the care of Dr. Davis in [place] and has had workups for bowel issues in the past. She has no definite diagnosis at this time. She denies any hematochezia or melena. She has recently been treated with Cipro for urinary tract infection. She has also taken medications for yeast infection. She is afebrile. She denies vomiting. She has chronic hypoxia and wears nasal cannula oxygen due to cardiac disease. Allergies and Home Medications Allergies Coded Allergies: Penicillins (Verified Allergy, Unknown, 10/22/06) acetaminophen (Verified Allergy, Unknown, 10/22/06) codeine (Verified Allergy, Unknown, UPSET STOMACH, 10/23/06) morphine (Unverified Allergy, Unknown, 12/12/14) propoxyphene (Verified Allergy, Unknown, 10/22/06) topiramate (Verified Allergy, Unknown, 10/22/06) Home Medications Acetaminophen 500 Mg Tablet, 1,000 MG PO Q6H PRN for PAIN-MILD, (Reported) Albuterol Sulfate 18 Gm Hfa.aer.ad, 2 PUFF INH Q4H PRN for SHORTNESS OF BREATH, (Reported) Amitriptyline HCl 75 Mg Tablet, 75 MG PO HS, (Reported) Amlodipine Besylate 10 Mg Tablet, 5 MG PO DAILY, (Reported) Aspirin 81 Mg Tablet.dr, 81 MG PO DAILY, (Reported) Atorvastatin Calcium 10 Mg Tablet, 10 MG PO DAILY, (Reported) Budesonide/Formoterol Fumarate 10.2 Gm Hfa.aer.ad, 2 PUFF IH BID, (Reported) Cetirizine HCl 10 Mg Tablet, 10 MG PO DAILY, (Reported) Cholecalciferol (Vitamin D3) 5,000 Unit Capsule, 5,000 UNIT PO BID, (Reported) Ciprofloxacin HCl 500 Mg Tablet, 500 MG PO BID Prescribed by: DAVIN ADHIKARI on 12/31/182013 Cyclobenzaprine HCl 10 Mg Tablet, 10 MG PO BID PRN for MUSCLE SPASMS, (Reported) Fluticasone Propionate 16 Gm [place].susp, 2 SPRAYS NS HS, (Reported) Gabapentin 400 Mg Capsule, 400 MG PO TID, (Reported) Glipizide 5 Mg Tablet, 5 MG PO DAILY, (Reported) Insulin Degludec 200 Unit/1 Ml Insuln.pen, 12 UNITS SC BID, (Reported) Levothyroxine Sodium 100 Mcg Tablet, 100 MCG PO DAILY, (Reported) Lorazepam 1 Mg Tablet, 1 MG PO DAILY PRN for ANXIETY, (Reported) Lorazepam 1 Mg Tablet, 1 MG PO HS, (Reported) Losartan Potassium 50 Mg Tablet, 50 MG PO DAILY, (Reported) Meclizine HCl 25 Mg Tablet, 25 MG PO Q6H PRN for DIZZINESS Prescribed by: DAVIN ADHIKARI on 04/07/16322 Metformin HCl 1,000 Mg Tablet, 1,000 MG PO BID, (Reported) Metoprolol Succinate 25 Mg Tab.er.24h, 25 MG PO DAILY, (Reported) Montelukast Sodium 10 Mg Tablet, 10 MG PO HS, (Reported) Multivitamin 1 Each Tablet, 1 TAB PO DAILY, (Reported) Pantoprazole Sodium 40 Mg Tablet.dr, 40 MG PO DAILY Prescribed by: MARILY PANDEY on 11/10/17837 Sucralfate 1 Gm Tablet, 1 GM PO Q6H Prescribed by: MARILY PANDEY on 11/10/17837 Tramadol HCl 50 Mg Tablet, 50 MG PO Q4H PRN for PAIN-MODERATE, (Reported) Vitamin B Complex 1 Each Capsule, 1 CAP PO DAILY, (Reported) Patient Home Medication List Home Medication List Reviewed: Yes Review of Systems Review of Systems Constitutional: no symptoms reported EENTM: No Symptoms Reported Respiratory: See HPI Cardiovascular: See HPI Gastrointestinal: See HPI Genitourinary: See HPI Musculoskeletal: no symptoms reported Skin: no symptoms reported Psychiatric/Neurological: No Symptoms Reported Endocrine: No Symptoms Reported Hematologic/Lymphatic: No Symptoms Reported Past Mfqbnpf-Xyidti-Niwcdy Hx Past Med/Social Hx: Reviewed and Corrections made Patient Social History Alcohol Use: Denies Use Recreational Drug Use: No Smoking Status: Never a Smoker 2nd Hand Smoke Exposure: No Recent Foreign Travel: No Contact w/Someone Who Travel: No Recent Infectious Disease Expo: No Recent Hopitalizations: Yes (11/02/17-"LOW OXYGEN") Immunizations Up To Date Tetanus Booster (TDap): Unknown Date of Pneumonia Vaccine: Feb 05, 2017 Date of Influenza Vaccine: Dec 21, 2017 Seasonal Allergies Seasonal Allergies: No Past Medical History Surgeries: Yes (FOOT) Appendectomy, Coronary Stent, Gallbladder, Orthopedic, Thyroidectomy Respiratory: Yes (CPAP - 3L NC O2 ) Asthma, Sleep Apnea, COPD Currently Using CPAP: Yes Currently Using BIPAP: No Cardiac: Yes (STENT) Cardiomyopathy, Coronary Artery Disease, High Cholesterol, Hypertension, Valvular Heart Disease Neurological: No 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 Disorders: No 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: 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 Sexually Transmitted Disease: No HIV/AIDS: No UTI-Chronic Gastrointestinal: No Musculoskeletal: Yes (ARTHRITIS, LUPUS, spinal stenosis) Arthritis, Scoliosis Endocrine: Yes Diabetes, Insulin dep, Hypothyroidsim HEENT: No Cancer: No Psychosocial: Yes Anxiety, Depression Integumentary: No Blood Disorders: No Adverse Reaction/Blood Tranf: No Family Medical History Reviewed Nursing Family Hx Alzheimer's disease G8 SISTER Diabetes mellitus 19 FATHER Hypertension 19 FATHER 19 MOTHER Myocardial infarction 19 FATHER 19 MOTHER Neoplasm G8 SISTER Physical Exam Vital Signs Vital Signs - First Documented 12/31/18 16:58 Temp 37.0 Pulse 99 Resp 22 B/P (MAP) 152/82 (105) Pulse Ox 97 O2 Delivery Nasal Cannula O2 Flow Rate 3.00 Capillary Refill : Less Than 3 Seconds Height/Weight/BMI Height: 5'4.00" Weight: 246lbs. 6.0oz. 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, no motor/sensory deficits, alert, normal mood/affect, oriented x 3 Skin: normal color, warm/dry Progress/Results/Core Measures Results/Orders Lab Results Laboratory Tests Test 12/31/18 18:53 12/31/18 19:06 Range/Units Urine Color YELLOW Urine Clarity CLEAR Urine pH 6 5-9 Urine Specific [place] 1.010 L 1.016-1.022 Urine Protein 2+ H NEGATIVE Urine Glucose (UA) 3+ H NEGATIVE Urine Ketones NEGATIVE NEGATIVE Urine Nitrite POSITIVE H NEGATIVE Urine Bilirubin NEGATIVE NEGATIVE Urine Urobilinogen NORMAL NORMAL MG/DL Urine Leukocyte Esterase 3+ H NEGATIVE Urine RBC (Auto) 2+ H NEGATIVE Urine RBC 2-5 H /HPF Urine WBC 10-25 H /HPF Urine Crystals PRESENT H /LPF Urine Amorphous Sediment FEW MICHELET URATES H /LPF Urine Bacteria MODERATE H /HPF Urine Casts NONE /LPF Urine Mucus NEGATIVE /LPF Urine Culture Indicated YES White Blood Count 11.0 4.3-11.0 10^3/uL Red Blood Count 3.83 L 4.35-5.85 10^6/uL Hemoglobin 11.8 11.5-16.0 G/DL Hematocrit 37 35-52 % Mean Corpuscular Volume 96 80-99 FL Mean Corpuscular Hemoglobin 31 25-34 PG Mean Corpuscular Hemoglobin Concent 32 32-36 G/DL Red Cell Distribution Width 12.8 10.0-14.5 % Platelet Count 255 130-400 10^3/uL Mean Platelet Volume 8.9 7.4-10.4 FL Neutrophils (%) (Auto) 72 42-75 % Lymphocytes (%) (Auto) 21 12-44 % Monocytes (%) (Auto) 5 0-12 % Eosinophils (%) (Auto) 2 0-10 % Basophils (%) (Auto) 1 0-10 % Neutrophils # (Auto) 7.9 H 1.8-7.8 X 10^3 Lymphocytes # (Auto) 2.3 1.0-4.0 X 10^3 Monocytes # (Auto) 0.5 0.0-1.0 X 10^3 Eosinophils # (Auto) 0.2 0.0-0.3 10^3/uL Basophils # (Auto) 0.1 0.0-0.1 10^3/uL Sodium Level 140 135-145 MMOL/L Potassium Level 4.2 3.6-5.0 MMOL/L Chloride Level 103 98-107 MMOL/L Carbon Dioxide Level 28 21-32 MMOL/L Anion Gap 9 5-14 MMOL/L Blood Urea Nitrogen 12 7-18 MG/DL Creatinine 1.03 0.60-1.30 MG/DL Estimat Glomerular Filtration Rate 54 BUN/Creatinine Ratio 12 Glucose Level 160 H 70-105 MG/DL Calcium Level 9.3 8.5-10.1 MG/DL Corrected Calcium 9.2 8.5-10.1 MG/DL Magnesium Level 1.6 1.6-2.4 MG/DL Total Bilirubin 0.3 0.1-1.0 MG/DL Aspartate Amino Transf (AST/SGOT) 37 H 5-34 U/L Alanine Aminotransferase (ALT/SGPT) 36 0-55 U/L Alkaline Phosphatase 140 H 40-136 U/L C-Reactive Protein High Sensitivity 2.09 H 0.00-0.50 MG/DL Total Protein 7.5 6.4-8.2 GM/DL Albumin 4.1 3.2-4.5 GM/DL Lipase 23 8-78 U/L Thyroid Stimulating Hormone (TSH) 8.24 H 0.35-4.94 UIU/ML Free Thyroxine 0.95 0.70-1.48 NG/DL My Orders Orders - DAVIN DODSON MD Cbc With Automated Diff (12/31/18 18:06) Comprehensive Metabolic Panel (12/31/18 18:06) Magnesium (12/31/18 18:06) Ua Culture If Indicated (12/31/18 18:06) Ed Iv/Invasive Line Start (12/31/18 18:06) Ed Iv/Invasive Line Start (12/31/18 18:53) Lactated Ringers (Lr 1000 Ml Iv Solution (12/31/18 18:53) Hs C Reactive Protein (12/31/18 19:02) Lipase (12/31/18 19:02) Ondansetron Injection (Zofran Injectio (12/31/18 19:15) Lidocaine 2% Viscous 15 Ml (Xylocaine Vi (12/31/18 19:15) Antacid Suspension (Mylanta Suspension (12/31/18 19:15) Famotidine Injection (Pepcid Injection) (12/31/18 19:02) Urine Culture (12/31/18 18:53) Thyroid Stimulating Hormone (12/31/18 20:12) Free T4 (Free Thyroxine) (12/31/18 20:12) Medications Given in ED Vital Signs/I&O 12/31/18 12/31/18 16:58 20:20 Temp 37.0 36.9 Pulse 99 79 Resp 22 18 B/P (MAP) 152/82 (105) 154/81 (105) Pulse Ox 97 99 O2 Delivery Nasal Cannula Nasal Cannula O2 Flow Rate 3.00 3.00 Blood Pressure Mean: 105 Progress Progress Note : Time: 20:09 Progress Note Workup was unremarkable. Patient received a liter of LR. Pepcid, Zofran, and GI cocktail greatly improved her upper abdominal pain. I am adding Pepcid to her pantoprazole for additional treatment of suspected gastritis. Urinary tract infection will be treated with Cipro. Patient states her urologist recommends that she take Cipro whenever she has UTI. It was noted patient takes levothyroxin. She states that is been a few years since her levels have been checked. I'm going to add thyroid labs to her blood in the lab. She is to follow-up with Dr. Colindres regarding results. Departure Impression Primary Impression: Nausea vomiting and diarrhea Additional Impressions: Generalized abdominal pain Urinary tract infection Qualified Codes: N39.0 - Urinary tract infection, site not specified Hypothyroidism Qualified Codes: E03.9 - Hypothyroidism, unspecified Disposition: 01 HOME, SELF-CARE Condition: Improved Departure-Patient Inst. Referrals: KIYA COLINDRES MD (PCP/Family) Primary Care Physician Patient Instructions: Viral Gastroenteritis, Acute Abdomen (Belly Pain), Adult (DC) Add. Discharge Instructions: Start with clear liquids and gradually advance your diet with small quantities of bland food as tolerated. Rehydration formula such as Pedialyte or generic equivalents are ideal for rehydration and can be purchased [id number]. I suggest adding Pepcid (famotidine) 20 mg twice daily to your pantoprazole for the next 1-2 weeks. You may continue taking Zofran (ondansetron) and probiotics as previously prescribed. Complete Cipro as prescribed. Follow-up with your primary care provider or urologist early next week to review urine culture results. You may use Tylenol (acetaminophen) up to 1000 mg every 6 hours as needed for pain. Imodium may be used sparingly to treat diarrhea. You may also try stopping metformin for the next 2 or 3 days. Return to the emergency room if you have worsening symptoms or you develop new symptoms such as fever over 100, escalating pain, etc. All discharge instructions reviewed with patient and/or family. Voiced understa nding. Scripts Ciprofloxacin HCl (Ciprofloxacin HCl) 500 Mg Tablet 500 MG PO BID, #10 TAB Prov: DAVIN DODSON MD 12/31/18 Copy Copies To 1: KIYA COLINDRES MD, JOSHUA T MD Dec 31, 2018 20:12
[2018-12-31] MEDS ORDERED: CIPR500T4 PO (20:14)
[2018-12-31 20:20] VITALS: BP 154/81
[2018-12-31 20:50] LABS: FREE T4 (FREE THYROXINE) 0.95 NG/DL (0.70-1.48)
== END 2018-12-31 20:25 | disposition home or self-care (01) ==
LOC: EDUNIT# 16:39 → ER 16:40
DX: N39.0 Urinary tract infection, site not specified (principal); R19.7 Diarrhea, unspecified; R10.84 Generalized abdominal pain; E03.9 Hypothyroidism, unspecified; I10 Essential (primary) hypertension; E11.9 Type 2 diabetes mellitus without complications; I25.10 Atherosclerotic heart disease of native coronary artery without angina pectoris; E78.00 Pure hypercholesterolemia, unspecified; J44.9 Chronic obstructive pulmonary disease, unspecified; F41.9 Anxiety disorder, unspecified; F32.9 Major depressive disorder, single episode, unspecified; G47.30 Sleep apnea, unspecified; Z99.89 Dependence on other enabling machines and devices; Z95.5 Presence of coronary angioplasty implant and graft; Z88.0 Allergy status to penicillin; Z88.5 Allergy status to narcotic agent; Z87.440 Personal history of urinary (tract) infections; Z88.6 Allergy status to analgesic agent; Z88.8 Allergy status to other drugs, medicaments and biological substances; Z79.82 Long term (current) use of aspirin; Z79.51 Long term (current) use of inhaled steroids; Z79.4 Long term (current) use of insulin; Z90.49 Acquired absence of other specified parts of digestive tract; Z82.49 Family history of ischemic heart disease and other diseases of the circulatory system
CPT/HCPCS: 36415; 80053; 81000; 83690; 83735; 84439; 84443; 85025; 86141; 87077; 87088; 87186; 96361; 96374; 96375

== ENCOUNTER → 2019-01-28 | Outpatient (CLI) | payer MEDICARE, OTHER ==
[~2019-01-28] MED LIST changes: +CIPR500T4 PO
[2019-01-28 09:20] LABS: BASOPHILS # (AUTO) 0.1 10^3/uL (0.0-0.1); BASOPHILS % (AUTO) 1 % (0-10); EOSINOPHILS # (AUTO) 0.2 10^3/uL (0.0-0.3); EOSINOPHILS % (AUTO) 2 % (0-10); HEMATOCRIT 37 % (35-52); LYMPHOCYTES # (AUTO) 1.3 X 10^3 (1.0-4.0); LYMPHOCYTES % (AUTO) 13 % (12-44); MEAN CORPUSCULAR HEMOGLOBIN 31 PG (25-34); MEAN CORPUSCULAR HGB CONC 32 G/DL (32-36); MEAN CORPUSCULAR VOLUME 96 FL (80-99); MEAN PLATELET VOLUME 9.7 FL (7.4-10.4); MONOCYTES # (AUTO) 0.4 X 10^3 (0.0-1.0); MONOCYTES % (AUTO) 4 % (0-12); NEUTROPHILS # (AUTO) 8.5 X 10^3 (1.8-7.8); NEUTROPHILS % (AUTO) 81 % (42-75); PLATELET COUNT 206 10^3/uL (130-400); RED CELL DISTRIBUTION WIDTH 12.8 % (10.0-14.5); WHITE BLOOD COUNT 10.4 10^3/uL (4.3-11.0)
--- NOTE | 2019-01-28 10:13 | Diagnostic Imaging Report ---
INDICATION: Shortness of air. TIME OF EXAM: 9:58 a.m. Correlation is made with prior chest from 11/05/2018. The heart is enlarged but stable. There is mild central congestion. No overt failure is seen. There is no effusion or pneumothorax. IMPRESSION: Cardiomegaly and central congestion. Dictated by: Dictated on workstation # [id number]
== END ==
LOC: RAD 09:01
PROVIDERS: ATTEND Nurse Practitioner Family
DX: I51.7 Cardiomegaly (principal); R06.02 Shortness of breath; R07.81 Pleurodynia; R09.89 Other specified symptoms and signs involving the circulatory and respiratory systems
CPT/HCPCS: 36415; 71046; 83880; 85025

== ENCOUNTER 2019-02-28 13:39 | Emergency (ER) | payer MEDICARE, OTHER ==
[~2019-02-28] VITALS: Ht 162.5 cm; Wt 111.8 kg
[2019-02-28 15:54] LABS: BILIRUBIN,URINE NEGATIVE (NEGATIVE); CLARITY,URINE CLEAR; COLOR,URINE YELLOW; GLUCOSE, URINE (UA) 3+ (NEGATIVE); KETONES,URINE NEGATIVE (NEGATIVE); LEUKOCYTE ESTERASE ,URINE NEGATIVE (NEGATIVE); NITRITE,URINE NEGATIVE (NEGATIVE); PROTEIN,URINE NEGATIVE (NEGATIVE)
[2019-02-28] MEDS ORDERED: fentaNYL INJECTION 100 MCG/2 ML AMP IVP ONE (16:00)
[2019-02-28 16:06] LABS: BACTERIA,URINE NEGATIVE /HPF; RBC,URINE 0-2 /HPF; SQUAMOUS EPITHELIAL CELL,UR 0-2 /HPF; WBC,URINE 0-2 /HPF
[2019-02-28 16:08] LABS: BASOPHILS # (AUTO) 0.1 10^3/uL (0.0-0.1); BASOPHILS % (AUTO) 1 % (0-10); EOSINOPHILS # (AUTO) 0.2 10^3/uL (0.0-0.3); EOSINOPHILS % (AUTO) 2 % (0-10); HEMATOCRIT 37 % (35-52); LYMPHOCYTES # (AUTO) 1.5 X 10^3 (1.0-4.0); LYMPHOCYTES % (AUTO) 15 % (12-44); MEAN CORPUSCULAR HEMOGLOBIN 31 PG (25-34); MEAN CORPUSCULAR HGB CONC 32 G/DL (32-36); MEAN CORPUSCULAR VOLUME 97 FL (80-99); MEAN PLATELET VOLUME 9.9 FL (7.4-10.4); MONOCYTES # (AUTO) 0.4 X 10^3 (0.0-1.0); MONOCYTES % (AUTO) 4 % (0-12); NEUTROPHILS # (AUTO) 7.9 X 10^3 (1.8-7.8); NEUTROPHILS % (AUTO) 79 % (42-75); PLATELET COUNT 211 10^3/uL (130-400); RED CELL DISTRIBUTION WIDTH 12.6 % (10.0-14.5); WHITE BLOOD COUNT 10.1 10^3/uL (4.3-11.0)
--- NOTE | 2019-02-28 16:13 | ED Abdominal Pain ---
General Chief Complaint: Abdominal/GI Problems Stated Complaint: R SIDE PAIN Nursing Triage Note: Pt to ED in wheelchair. Pt reports R flank/back pain with two episodes of vomiting this morning. Pt reports the pain feels like it could be the kidney or pancreas. Sepsis Screen: No Definite Risk Source of Information: Patient Exam Limitations: No Limitations History of Present Illness Date Seen by Provider: Feb 28, 2019 Time Seen by Provider: 16:11 Initial Comments To ER with nausea vomiting right upper quadrant abdominal pain. Right upper quadrant abdominal pain getting worse over the past few days. Pain worsened by deep breathing. Remote history of cholecystectomy. Timing/Duration: 1-2 Days, Getting Worse Severity/Quality: Moderate Location: RUQ Radiation: No Radiation Activities at Onset: None Associated Symptoms: Nausea/Vomiting Allergies and Home Medications Allergies Coded Allergies: Penicillins (Verified Allergy, Unknown, 10/22/06) acetaminophen (Verified Allergy, Unknown, 10/22/06) codeine (Verified Allergy, Unknown, UPSET STOMACH, 10/23/06) morphine (Unverified Allergy, Unknown, 12/12/14) propoxyphene (Verified Allergy, Unknown, 10/22/06) topiramate (Verified Allergy, Unknown, 10/22/06) Home Medications Acetaminophen 500 Mg Tablet, 1,000 MG PO Q6H PRN for PAIN-MILD, (Reported) Albuterol Sulfate 18 Gm Hfa.aer.ad, 2 PUFF INH Q4H PRN for SHORTNESS OF BREATH, (Reported) Amitriptyline HCl 75 Mg Tablet, 75 MG PO HS, (Reported) Amlodipine Besylate 10 Mg Tablet, 5 MG PO DAILY, (Reported) Aspirin 81 Mg Tablet.dr, 81 MG PO DAILY, (Reported) Atorvastatin Calcium 10 Mg Tablet, 10 MG PO DAILY, (Reported) Budesonide/Formoterol Fumarate 10.2 Gm Hfa.aer.ad, 2 PUFF IH BID, (Reported) Cetirizine HCl 10 Mg Tablet, 10 MG PO DAILY, (Reported) Cholecalciferol (Vitamin D3) 5,000 Unit Capsule, 5,000 UNIT PO BID, (Reported) Ciprofloxacin HCl 500 Mg Tablet, 500 MG PO BID Prescribed by: DAVIN ADHIKARI on 12/31/182013 Cyclobenzaprine HCl 10 Mg Tablet, 10 MG PO BID PRN for MUSCLE SPASMS, (Reported) Fluticasone Propionate 16 Gm [place].susp, 2 SPRAYS NS HS, (Reported) Gabapentin 400 Mg Capsule, 400 MG PO TID, (Reported) Glipizide 5 Mg Tablet, 5 MG PO DAILY, (Reported) Insulin Degludec 200 Unit/1 Ml Insuln.pen, 12 UNITS SC BID, (Reported) Levothyroxine Sodium 100 Mcg Tablet, 100 MCG PO DAILY, (Reported) Lorazepam 1 Mg Tablet, 1 MG PO DAILY PRN for ANXIETY, (Reported) Lorazepam 1 Mg Tablet, 1 MG PO HS, (Reported) Losartan Potassium 50 Mg Tablet, 50 MG PO DAILY, (Reported) Meclizine HCl 25 Mg Tablet, 25 MG PO Q6H PRN for DIZZINESS Prescribed by: DAVIN ADHIKARI on 04/07/16 0323 Metformin HCl 1,000 Mg Tablet, 1,000 MG PO BID, (Reported) Metoprolol Succinate 25 Mg Tab.er.24h, 25 MG PO DAILY, (Reported) Montelukast Sodium 10 Mg Tablet, 10 MG PO HS, (Reported) Multivitamin 1 Each Tablet, 1 TAB PO DAILY, (Reported) Pantoprazole Sodium 40 Mg Tablet.dr, 40 MG PO DAILY Prescribed by: MARILY PANDEY on 11/10/17837 Sucralfate 1 Gm Tablet, 1 GM PO Q6H Prescribed by: MARILY PANDEY on 11/10/17837 Tramadol HCl 50 Mg Tablet, 50 MG PO Q4H PRN for PAIN-MODERATE, (Reported) Vitamin B Complex 1 Each Capsule, 1 CAP PO DAILY, (Reported) Patient Home Medication List Home Medication List Reviewed: Yes Review of Systems Review of Systems Constitutional: see HPI EENTM: No Symptoms Reported Respiratory: No Symptoms Reported Cardiovascular: No Symptoms Reported Gastrointestinal: See HPI, Abdominal Pain, Nausea, Vomiting Genitourinary: No Symptoms Reported Musculoskeletal: no symptoms reported Skin: no symptoms reported Psychiatric/Neurological: No Symptoms Reported Endocrine: No Symptoms Reported Past Mccanef-Udmdhk-Thnrmc Hx Patient Social History Alcohol Use: Denies Use Recreational Drug Use: No Smoking Status: Never a Smoker 2nd Hand Smoke Exposure: No Recent Foreign Travel: No Contact w/Someone Who Travel: No Recent Infectious Disease Expo: No Recent Hopitalizations: No Immunizations Up To Date Tetanus Booster (TDap): Unknown Date of Pneumonia Vaccine: Feb 05, 2017 Date of Influenza Vaccine: Dec 21, 2017 Seasonal Allergies Seasonal Allergies: No Past Medical History Surgeries: Yes (FOOT) Appendectomy, Coronary Stent, Gallbladder, Orthopedic, Thyroidectomy Respiratory: Yes (CPAP - 3L NC O2 ) Asthma, Sleep Apnea, COPD Currently Using CPAP: Yes Currently Using BIPAP: No Cardiac: Yes (STENT) Cardiomyopathy, Chronic Edema/Swelling, Coronary Artery Disease, High Cholesterol, Hypertension, Valvular Heart Disease Neurological: No 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 Sexually Transmitted Disease: No HIV/AIDS: No UTI-Chronic Gastrointestinal: No Musculoskeletal: Yes (ARTHRITIS, LUPUS, spinal stenosis) Arthritis, Scoliosis Endocrine: Yes Diabetes, Insulin dep, Hypothyroidsim HEENT: No Cancer: No Psychosocial: Yes Anxiety, Depression Integumentary: No Blood Disorders: No Adverse Reaction/Blood Tranf: No Family Medical History Alzheimer's disease G8 SISTER Diabetes mellitus 19 FATHER Hypertension 19 FATHER 19 MOTHER Myocardial infarction 19 FATHER 19 MOTHER Neoplasm G8 SISTER Physical Exam Vital Signs Vital Signs - First Documented 02/28/19 14:20 Temp 37.0 Pulse 98 Resp 17 B/P (MAP) 134/82 (99) Pulse Ox 98 O2 Delivery Nasal Cannula O2 Flow Rate 3.00 Capillary Refill : Less Than 3 Seconds Height/Weight/BMI Height: 5'4.00" Weight: 246lbs. 6.0oz. 111.958001tb; 42.00 BMI Method:Stated General Appearance: WD/WN, no apparent distress Respiratory: no respiratory distress, no accessory muscle use Gastrointestinal: normal bowel sounds, non tender, soft Extremities: normal range of motion, non-tender Neurologic/Psychiatric: alert, normal mood/affect, oriented x 3 Skin: normal color, warm/dry Progress/Results/Core Measures Results/Orders Lab Results Laboratory Tests Test 02/28/19 15:23 02/28/19 16:02 Range/Units Urine Color YELLOW Urine Clarity CLEAR Urine pH 7.0 5-9 Urine Specific [place] 1.015 L 1.016-1.022 Urine Protein NEGATIVE NEGATIVE Urine Glucose (UA) 3+ H NEGATIVE Urine Ketones NEGATIVE NEGATIVE Urine Nitrite NEGATIVE NEGATIVE Urine Bilirubin NEGATIVE NEGATIVE Urine Urobilinogen 0.2 < = 1.0 MG/DL Urine Leukocyte Esterase NEGATIVE NEGATIVE Urine RBC (Auto) NEGATIVE NEGATIVE Urine RBC 0-2 /HPF Urine WBC 0-2 /HPF Urine Squamous Epithelial Cells 0-2 /HPF Urine Crystals NONE /LPF Urine Bacteria NEGATIVE /HPF Urine Casts NONE /LPF Urine Mucus NEGATIVE /LPF Urine Culture Indicated NO White Blood Count 10.1 4.3-11.0 10^3/uL Red Blood Count 3.85 L 4.35-5.85 10^6/uL Hemoglobin 12.0 11.5-16.0 G/DL Hematocrit 37 35-52 % Mean Corpuscular Volume 97 80-99 FL Mean Corpuscular Hemoglobin 31 25-34 PG Mean Corpuscular Hemoglobin Concent 32 32-36 G/DL Red Cell Distribution Width 12.6 10.0-14.5 % Platelet Count 211 130-400 10^3/uL Mean Platelet Volume 9.9 7.4-10.4 FL Neutrophils (%) (Auto) 79 H 42-75 % Lymphocytes (%) (Auto) 15 12-44 % Monocytes (%) (Auto) 4 0-12 % Eosinophils (%) (Auto) 2 0-10 % Basophils (%) (Auto) 1 0-10 % Neutrophils # (Auto) 7.9 H 1.8-7.8 X 10^3 Lymphocytes # (Auto) 1.5 1.0-4.0 X 10^3 Monocytes # (Auto) 0.4 0.0-1.0 X 10^3 Eosinophils # (Auto) 0.2 0.0-0.3 10^3/uL Basophils # (Auto) 0.1 0.0-0.1 10^3/uL Sodium Level 138 135-145 MMOL/L Potassium Level 4.5 3.6-5.0 MMOL/L Chloride Level 101 98-107 MMOL/L Carbon Dioxide Level 25 21-32 MMOL/L Anion Gap 12 5-14 MMOL/L Blood Urea Nitrogen 17 7-18 MG/DL Creatinine 1.19 0.60-1.30 MG/DL Estimat Glomerular Filtration Rate 46 BUN/Creatinine Ratio 14 Glucose Level 242 H 70-105 MG/DL Calcium Level 8.8 8.5-10.1 MG/DL Corrected Calcium 8.9 8.5-10.1 MG/DL Total Bilirubin 0.3 0.1-1.0 MG/DL Aspartate Amino Transf (AST/SGOT) 38 H 5-34 U/L Alanine Aminotransferase (ALT/SGPT) 33 0-55 U/L Alkaline Phosphatase 123 40-136 U/L Total Protein 7.2 6.4-8.2 GM/DL Albumin 3.9 3.2-4.5 GM/DL Lipase 17 8-78 U/L My Orders Orders - MAGDY ZIEGLER APRN Cbc With Automated Diff (02/28/19 14:48) Comprehensive Metabolic Panel (02/28/19 14:48) Lipase (02/28/19 14:48) Ed Iv/Invasive Line Start (02/28/19 15:51) Fentanyl Injection (Sublimaze Injection (02/28/19 16:00) Chest Pa/Lat (2 View) (02/28/19 16:04) Ct Abdomen/Pelvis Wo (02/28/19 16:04) Medications Given in ED Current Medications Medications Dose Ordered Sig/Katrina Route Start Time Stop Time Status Last Admin Dose Admin Fentanyl Citrate 50 mcg ONCE ONCE IVP 02/28/19 16:00 02/28/19 16:01 DC 02/28/19 16:32 50 MCG Vital Signs/I&O 02/28/19 14:20 Temp 37.0 Pulse 98 Resp 17 B/P (MAP) 134/82 (99) Pulse Ox 98 O2 Delivery Nasal Cannula O2 Flow Rate 3.00 Blood Pressure Mean: 99 Progress Progress Note : Progress Note NAME: RUDDY GARLAND [facility] REC#: [id number] PT STATUS: REG ER : 1955 PHYSICIAN: MAGDY ZIEGLER APRN ADMIT DATE: 02/28/19/ER Draft Date of Exam:02/28/19 CHEST PA/LAT (2 VIEW) INDICATION: Vomiting. Back pain. COMPARISON: 01/28/2019 FINDINGS: Frontal and lateral views of the chest demonstrate mild cardiomegaly. Pulmonary vasculature however is within normal limits. The lungs are clear. There are no signs of infiltrate, pleural effusions or pneumothoraces. The visualized osseous structures show no acute abnormalities. IMPRESSION: 1. Mild cardiomegaly, but no evidence of failure or focal infiltrate. Dictated on workstation # [id number] Dict: 02/28/19 1618 Trans: 02/28/19 1620 [facility] [id number] Interpreted by: MARTHA PIEDRA MD Electronically signed by: Departure Impression Primary Impression: RUQ pain Disposition: 01 HOME, SELF-CARE Condition: Improved Departure-Patient Inst. Decision time for Depature: 16:55 Referrals: KIYA HERMAN MD (PCP/Family) Primary Care Physician Patient Instructions: Acute Abdomen (Belly Pain), Adult (DC) Add. Discharge Instructions: 1. Return to ER for any concerns 2. Follow-up with your doctor next week 3. All discharge instructions reviewed with patient and/or family. Voiced understanding. MAGDY ZIEGLER [employer]LECT[employer]OLS ASSEMBLER Feb 28, 2019 16:13
--- NOTE | 2019-02-28 16:20 | Diagnostic Imaging Report ---
INDICATION: Vomiting. Back pain. COMPARISON: 01/28/2019 FINDINGS: Frontal and lateral views of the chest demonstrate mild cardiomegaly. Pulmonary vasculature however is within normal limits. The lungs are clear. There are no signs of infiltrate, pleural effusions or pneumothoraces. The visualized osseous structures show no acute abnormalities. IMPRESSION: 1. Mild cardiomegaly, but no evidence of failure or focal infiltrate. Dictated by: Dictated on workstation # [id number]
[2019-02-28 16:33] LABS: ALBUMIN 3.9 GM/DL (3.2-4.5); BILIRUBIN,TOTAL 0.3 MG/DL (0.1-1.0); CALCIUM 8.8 MG/DL (8.5-10.1); CREATININE SERUM 1.19 MG/DL (0.60-1.30); POTASSIUM 4.5 MMOL/L (3.6-5.0); TOTAL PROTEIN 7.2 GM/DL (6.4-8.2)
--- NOTE | 2019-02-28 16:36 | Diagnostic Imaging Report ---
EXAMINATION: CT Abdomen Pelvis without contrast. TECHNIQUE: Multiple contiguous axial images were obtained through the abdomen and pelvis without the use of intravenous contrast. All CT scans use one or more of the following dose optimizing techniques: automated exposure control, MA and/or KvP adjustment based on a patient size and exam type, or iterative reconstruction. HISTORY: Right flank pain. COMPARISON: 10/15/2016 FINDINGS: Limited views of the lower thorax are unremarkable. Liver is mildly steatotic. No suspicious liver lesions are seen. There is no biliary ductal dilation. Gallbladder is absent. Pancreas is normal. Spleen is normal. Adrenal glands are normal. The kidneys are normal. There is no hydronephrosis. Urinary bladder is normal. There are no dilated loops of large or small bowel. No obstruction or inflammation. No free fluid or air. No abdominal or pelvic lymphadenopathy. Aorta is normal in caliber without aneurysm. There are no suspicious osseous lesions. IMPRESSION: 1. No acute abnormality in the abdomen or pelvis. 2. Mild hepatic steatosis. Dictated by: Dictated on workstation # [id number]
[2019-02-28] MEDS ORDERED: KETOROLAC 30 MG/ML VIAL IVP ONE (17:15)
[2019-02-28 17:23] VITALS: BP 132/88
== END 2019-02-28 17:23 | disposition home or self-care (01) ==
LOC: EDUNIT# 13:39 → ER 13:40
DX: R10.11 Right upper quadrant pain (principal); J44.9 Chronic obstructive pulmonary disease, unspecified; I10 Essential (primary) hypertension; F41.9 Anxiety disorder, unspecified; F32.9 Major depressive disorder, single episode, unspecified; I25.10 Atherosclerotic heart disease of native coronary artery without angina pectoris; E78.00 Pure hypercholesterolemia, unspecified; E11.9 Type 2 diabetes mellitus without complications; E03.9 Hypothyroidism, unspecified; Z87.440 Personal history of urinary (tract) infections; Z95.5 Presence of coronary angioplasty implant and graft; Z88.0 Allergy status to penicillin; Z88.6 Allergy status to analgesic agent; Z88.5 Allergy status to narcotic agent; Z88.8 Allergy status to other drugs, medicaments and biological substances; Z79.82 Long term (current) use of aspirin; Z79.51 Long term (current) use of inhaled steroids; Z79.4 Long term (current) use of insulin; Z90.49 Acquired absence of other specified parts of digestive tract; Z82.49 Family history of ischemic heart disease and other diseases of the circulatory system
CPT/HCPCS: 36415; 71046; 74176; 80053; 81000; 83690; 85025; 96374; 96375

== ENCOUNTER 2019-03-17 08:57 | Outpatient (RCR) | payer MEDICARE, OTHER ==
[2019-03-14 08:36] LABS: BASOPHILS # (AUTO) 0.1 10^3/uL (0.0-0.1); BASOPHILS % (AUTO) 1 % (0-10); EOSINOPHILS # (AUTO) 0.3 10^3/uL (0.0-0.3); EOSINOPHILS % (AUTO) 3 % (0-10); HEMATOCRIT 39 % (35-52); HEMOGLOBIN 12.8 G/DL (11.5-16.0); LYMPHOCYTES # (AUTO) 1.2 X 10^3 (1.0-4.0); LYMPHOCYTES % (AUTO) 13 % (12-44); MEAN CORPUSCULAR HEMOGLOBIN 31 PG (25-34); MEAN CORPUSCULAR HGB CONC 33 G/DL (32-36); MEAN CORPUSCULAR VOLUME 95 FL (80-99); MEAN PLATELET VOLUME 10.1 FL (7.4-10.4); MONOCYTES # (AUTO) 0.4 X 10^3 (0.0-1.0); MONOCYTES % (AUTO) 4 % (0-12); NEUTROPHILS # (AUTO) 7.6 X 10^3 (1.8-7.8); NEUTROPHILS % (AUTO) 80 % (42-75); PLATELET COUNT 222 10^3/uL (130-400); RED CELL DISTRIBUTION WIDTH 12.5 % (10.0-14.5); WHITE BLOOD COUNT 9.5 10^3/uL (4.3-11.0)
[2019-03-14 08:56] LABS: ALBUMIN 4.1 GM/DL (3.2-4.5); BILIRUBIN,TOTAL 0.4 MG/DL (0.1-1.0); CALCIUM 8.9 MG/DL (8.5-10.1); CREATININE SERUM 1.16 MG/DL (0.60-1.30); POTASSIUM 4.3 MMOL/L (3.6-5.0); TOTAL PROTEIN 7.4 GM/DL (6.4-8.2)
[~2019-03-17 08:57] MED LIST changes: -CETI10TA20 PO; +CETI10TA21 PO; -MECL-106 PO; +MECL-149 PO; -METO-370 PO; -METO-387 PO; +METO50TA7 PO; -MONT10TA24 PO; +MONT10TA26 PO; +MTP25TSR PO; -TRAM50TA2 PO
[2019-04-11] MEDS ORDERED: ONDA4TAB11 PO (15:18)
[2019-05-14] MEDS ORDERED: DOXY100T2 PO (16:20)
== END 2019-06-12 | disposition home or self-care (01) ==
LOC: ONC 08:57
PROVIDERS: ATTEND Internal Medicine Hematology & Oncology
DX: D50.9 Iron deficiency anemia, unspecified (principal); K29.50 Unspecified chronic gastritis without bleeding; K25.9 Gastric ulcer, unspecified as acute or chronic, without hemorrhage or perforation; N18.3 Chronic kidney disease, stage 3 (moderate); I12.9 Hypertensive chronic kidney disease with stage 1 through stage 4 chronic kidney disease, or unspecified chronic kidney disease; E11.22 Type 2 diabetes mellitus with diabetic chronic kidney disease; I25.10 Atherosclerotic heart disease of native coronary artery without angina pectoris; J45.909 Unspecified asthma, uncomplicated; G47.33 Obstructive sleep apnea (adult) (pediatric); E03.9 Hypothyroidism, unspecified; Z79.4 Long term (current) use of insulin; Z79.82 Long term (current) use of aspirin
CPT/HCPCS: 80053; 82728; 85025; 99213

== ENCOUNTER 2019-03-22 07:46 | Emergency (ER) | payer MEDICARE, OTHER ==
[~2019-03-22] VITALS: Ht 162 cm; Wt 109.6 kg
[~2019-03-22 07:46] MED LIST changes: +CETI10TA20 PO; -CETI10TA21 PO; +MECL-106 PO; -MECL-149 PO; +MONT10TA24 PO; -MONT10TA26 PO
[2019-03-22] MEDS ORDERED: KETOROLAC 30 MG/ML VIAL IVP STA (08:07)
[2019-03-22] MEDS ORDERED: LACTATED RINGERS 1,000 ML IV STA (08:07)
[2019-03-22] MEDS ORDERED: ONDANSETRON 4 MG/2 ML (SDV) Z0FRAN IVP ONE (08:15)
[2019-03-22 08:28] LABS: BASOPHILS # (AUTO) 0.1 10^3/uL (0.0-0.1); BASOPHILS % (AUTO) 1 % (0-10); EOSINOPHILS # (AUTO) 0.3 10^3/uL (0.0-0.3); EOSINOPHILS % (AUTO) 3 % (0-10); HEMATOCRIT 38 % (35-52); HEMOGLOBIN 12.2 G/DL (11.5-16.0); LYMPHOCYTES # (AUTO) 1.3 X 10^3 (1.0-4.0); LYMPHOCYTES % (AUTO) 15 % (12-44); MEAN CORPUSCULAR HEMOGLOBIN 30 PG (25-34); MEAN CORPUSCULAR HGB CONC 32 G/DL (32-36); MEAN CORPUSCULAR VOLUME 96 FL (80-99); MEAN PLATELET VOLUME 9.9 FL (7.4-10.4); MONOCYTES # (AUTO) 0.4 X 10^3 (0.0-1.0); MONOCYTES % (AUTO) 4 % (0-12); NEUTROPHILS # (AUTO) 6.7 X 10^3 (1.8-7.8); NEUTROPHILS % (AUTO) 77 % (42-75); PLATELET COUNT 207 10^3/uL (130-400); RED CELL DISTRIBUTION WIDTH 12.6 % (10.0-14.5); WHITE BLOOD COUNT 8.7 10^3/uL (4.3-11.0)
--- NOTE | 2019-03-22 08:31 | ED General ---
General Chief Complaint: Head/Cervical Problems Stated Complaint: HEADACHE Nursing Triage Note: pt presents to ed with complaints of l sided migraine, l neck, and l shoulder pain since thursday. Pt also reports l sided cp and pain under her l rib cage which is reproducable with palpation. Nursing Sepsis Screen: No Definite Risk Source of Information: Patient Exam Limitations: No Limitations History of Present Illness Date Seen by Provider: Mar 22, 2019 Time Seen by Provider: 07:58 Initial Comments Here with report of left-sided headache and left chest wall pain. She states that this is her migraine and has had it for several days. Left chest wall pain hurts to touch and she states that she was told that she has inflammation there. Also has had diarrhea and nausea. States that diarrhea has improved. Does have history of GI distress and bowel problems. She has not taken anything for the pain she was unsure what she could take. Timing/Duration: 3-4 Days Severity: Moderate Associated Systoms: Chest Pain; No Cough, No Fever/Chills; Headaches, Nausea/Vomiting; No Shortness of Air; Weakness Allergies and Home Medications Allergies Coded Allergies: Penicillins (Verified Allergy, Unknown, 10/22/06) codeine (Verified Allergy, Unknown, UPSET STOMACH, 10/23/06) morphine (Unverified Allergy, Unknown, 12/12/14) propoxyphene (Verified Allergy, Unknown, 10/22/06) topiramate (Verified Allergy, Unknown, 10/22/06) Home Medications Acetaminophen 500 Mg Tablet, 1,000 MG PO Q6H PRN for PAIN-MILD, (Reported) Albuterol Sulfate 18 Gm Hfa.aer.ad, 2 PUFF INH Q4H PRN for SHORTNESS OF BREATH, (Reported) Amitriptyline HCl 75 Mg Tablet, 75 MG PO HS, (Reported) Amlodipine Besylate 10 Mg Tablet, 5 MG PO DAILY, (Reported) Aspirin 81 Mg Tablet.dr, 81 MG PO DAILY, (Reported) Atorvastatin Calcium 10 Mg Tablet, 10 MG PO DAILY, (Reported) Budesonide/Formoterol Fumarate 10.2 Gm Hfa.aer.ad, 2 PUFF IH BID, (Reported) Cetirizine HCl 10 Mg Tablet, 10 MG PO DAILY, (Reported) Cholecalciferol (Vitamin D3) 5,000 Unit Capsule, 5,000 UNIT PO BID, (Reported) Ciprofloxacin HCl 500 Mg Tablet, 500 MG PO BID Prescribed by: DAVIN ADHIKARI on 12/31/182013 Cyclobenzaprine HCl 10 Mg Tablet, 10 MG PO BID PRN for MUSCLE SPASMS, (Reported) Fluticasone Propionate 16 Gm [place].susp, 2 SPRAYS NS HS, (Reported) Gabapentin 400 Mg Capsule, 400 MG PO TID, (Reported) Glipizide 5 Mg Tablet, 5 MG PO DAILY, (Reported) Insulin Degludec 200 Unit/1 Ml Insuln.pen, 12 UNITS SC BID, (Reported) Levothyroxine Sodium 100 Mcg Tablet, 100 MCG PO DAILY, (Reported) Lorazepam 1 Mg Tablet, 1 MG PO DAILY PRN for ANXIETY, (Reported) Lorazepam 1 Mg Tablet, 1 MG PO HS, (Reported) Losartan Potassium 50 Mg Tablet, 50 MG PO DAILY, (Reported) Meclizine HCl 25 Mg Tablet, 25 MG PO Q6H PRN for DIZZINESS Prescribed by: DAVIN ADHIKARI on 04/07/16322 Metformin HCl 1,000 Mg Tablet, 1,000 MG PO BID, (Reported) Metoprolol Succinate 25 Mg Tab.er.24h, 25 MG PO DAILY, (Reported) Montelukast Sodium 10 Mg Tablet, 10 MG PO HS, (Reported) Multivitamin 1 Each Tablet, 1 TAB PO DAILY, (Reported) Pantoprazole Sodium 40 Mg Tablet.dr, 40 MG PO DAILY Prescribed by: MARILY PANDEY on 11/10/17837 Sucralfate 1 Gm Tablet, 1 GM PO Q6H Prescribed by: MARILY PANDEY on 11/10/17837 Tramadol HCl 50 Mg Tablet, 50 MG PO Q4H PRN for PAIN-MODERATE, (Reported) Vitamin B Complex 1 Each Capsule, 1 CAP PO DAILY, (Reported) Patient Home Medication List Home Medication List Reviewed: Yes Review of Systems Review of Systems Constitutional: see HPI; No chills, No fever EENTM: No ear pain, No eye pain Respiratory: No cough, No short of breath Cardiovascular: chest pain; No edema; Hx of Intervention; No palpitations Gastrointestinal: No abdominal pain; diarrhea, nausea, vomiting Genitourinary: no symptoms reported : No Musculoskeletal: joint pain, muscle pain, neck pain Skin: no symptoms reported Psychiatric/Neurological: No Symptoms Reported All Other Systems Reviewed Negative Unless Noted: Yes Past Gzycvdz-Mruxkg-Byvqiu Hx Past Med/Social Hx: Reviewed Nursing Past Med/Soc Hx Patient Social History Alcohol Use: Denies Use Recreational Drug Use: No Smoking Status: Never a Smoker 2nd Hand Smoke Exposure: No Recent Foreign Travel: No Contact w/Someone Who Travel: No Recent Infectious Disease Expo: No Recent Hopitalizations: No Physical Abuse: No Sexual Abuse: No Mistreated: No Fear: No Immunizations Up To Date Tetanus Booster (TDap): Unknown Date of Pneumonia Vaccine: Feb 05, 2017 Date of Influenza Vaccine: Dec 21, 2017 Seasonal Allergies Seasonal Allergies: No Past Medical History Surgeries: Yes (FOOT) Appendectomy, Coronary Stent, Gallbladder, Orthopedic, Thyroidectomy Respiratory: Yes (CPAP - 3L NC O2 ) Asthma, Sleep Apnea, COPD Currently Using CPAP: Yes Currently Using BIPAP: No Cardiac: Yes (STENT) Cardiomyopathy, Chronic Edema/Swelling, Coronary Artery Disease, High Cholesterol, Hypertension, Valvular Heart Disease Neurological: No 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 Sexually Transmitted Disease: No HIV/AIDS: No UTI-Chronic Gastrointestinal: No Musculoskeletal: Yes (ARTHRITIS, spinal stenosis) Arthritis, Scoliosis Endocrine: Yes Diabetes, Insulin dep, Hypothyroidsim HEENT: No Cancer: No Psychosocial: Yes Anxiety, Depression Integumentary: No Blood Disorders: No Adverse Reaction/Blood Tranf: No Family Medical History Reviewed Nursing Family Hx Alzheimer's disease G8 SISTER Diabetes mellitus 19 FATHER Hypertension 19 FATHER 19 MOTHER Myocardial infarction 19 FATHER 19 MOTHER Neoplasm G8 SISTER Physical Exam Vital Signs Vital Signs - First Documented 03/22/19 07:56 Temp 36.6 Pulse 113 Resp 20 B/P (MAP) 14/83 (60) Pulse Ox 94 O2 Delivery Nasal Cannula O2 Flow Rate 2.00 Capillary Refill : Less Than 3 Seconds Height, Weight, BMI Height: 5'4.00" Weight: 246lbs. 6.0oz. 111.597512eh; 41.00 BMI Method:Stated General Appearance: No Apparent Distress, WD/WN HEENT: PERRL/EOMI, Pharynx Normal Neck: Non Tender, Supple Respiratory: Lungs Clear, Normal Breath Sounds, Other (reproducible pain along the left anterior chest wall above the breast to the shoulder area.) Cardiovascular: Regular Rate, Rhythm, No Murmur Gastrointestinal: Normal Bowel Sounds, Non Tender, Soft Back: Normal Inspection, No CVA Tenderness, No Vertebral Tenderness Extremity: Normal Range of Motion, Non Tender, No Calf Tenderness Neurologic/Psychiatric: Alert, Oriented x3 Skin: Normal Color, Warm/Dry Progress/Results/Core Measures Suspected Sepsis Recent Fever Within 48 Hours: No Infection Criteria Present: None New/Unexplained Altered Menta: No Sepsis Screen: No Definite Risk SIRS Temperature: Pulse: 113 Respiratory Rate: 20 Laboratory Tests 03/22/19 08:15: White Blood Count 8.7 Blood Pressure 14 /83 Mean: 60 Laboratory Tests 03/22/19 08:15: Creatinine 1.04, Platelet Count 207, Total Bilirubin 0.2 Results/Orders Lab Results Laboratory Tests Test 03/22/19 08:15 03/22/19 08:29 Range/Units White Blood Count 8.7 4.3-11.0 10^3/uL Red Blood Count 4.01 L 4.35-5.85 10^6/uL Hemoglobin 12.2 11.5-16.0 G/DL Hematocrit 38 35-52 % Mean Corpuscular Volume 96 80-99 FL Mean Corpuscular Hemoglobin 30 25-34 PG Mean Corpuscular Hemoglobin Concent 32 32-36 G/DL Red Cell Distribution Width 12.6 10.0-14.5 % Platelet Count 207 130-400 10^3/uL Mean Platelet Volume 9.9 7.4-10.4 FL Neutrophils (%) (Auto) 77 H 42-75 % Lymphocytes (%) (Auto) 15 12-44 % Monocytes (%) (Auto) 4 0-12 % Eosinophils (%) (Auto) 3 0-10 % Basophils (%) (Auto) 1 0-10 % Neutrophils # (Auto) 6.7 1.8-7.8 X 10^3 Lymphocytes # (Auto) 1.3 1.0-4.0 X 10^3 Monocytes # (Auto) 0.4 0.0-1.0 X 10^3 Eosinophils # (Auto) 0.3 0.0-0.3 10^3/uL Basophils # (Auto) 0.1 0.0-0.1 10^3/uL Sodium Level 140 135-145 MMOL/L Potassium Level 4.4 3.6-5.0 MMOL/L Chloride Level 103 98-107 MMOL/L Carbon Dioxide Level 25 21-32 MMOL/L Anion Gap 12 5-14 MMOL/L Blood Urea Nitrogen 13 7-18 MG/DL Creatinine 1.04 0.60-1.30 MG/DL Estimat Glomerular Filtration Rate 53 BUN/Creatinine Ratio 13 Glucose Level 180 H 70-105 MG/DL Calcium Level 8.7 8.5-10.1 MG/DL Corrected Calcium 8.7 8.5-10.1 MG/DL Total Bilirubin 0.2 0.1-1.0 MG/DL Aspartate Amino Transf (AST/SGOT) 31 5-34 U/L Alanine Aminotransferase (ALT/SGPT) 34 0-55 U/L Alkaline Phosphatase 117 40-136 U/L Troponin I < 0.028 <0.028 NG/ML C-Reactive Protein High Sensitivity 1.14 H 0.00-0.50 MG/DL Total Protein 7.4 6.4-8.2 GM/DL Albumin 4.0 3.2-4.5 GM/DL Urine Color YELLOW Urine Clarity CLEAR Urine pH 6.0 5-9 Urine Specific [place] 1.020 1.016-1.022 Urine Protein NEGATIVE NEGATIVE Urine Glucose (UA) NEGATIVE NEGATIVE Urine Ketones NEGATIVE NEGATIVE Urine Nitrite NEGATIVE NEGATIVE Urine Bilirubin NEGATIVE NEGATIVE Urine Urobilinogen 0.2 < = 1.0 MG/DL Urine Leukocyte Esterase NEGATIVE NEGATIVE Urine RBC (Auto) NEGATIVE NEGATIVE Urine RBC NONE /HPF Urine WBC 0-2 /HPF Urine Squamous Epithelial Cells 5-10 /HPF Urine Crystals NONE /LPF Urine Bacteria NEGATIVE /HPF Urine Casts NONE /LPF Urine Mucus NEGATIVE /LPF Urine Yeast FEW H /HPF Urine Culture Indicated NO My Orders Orders - SHARLA DOWNS MD Cbc With Automated Diff (03/22/19 08:07) Comprehensive Metabolic Panel (03/22/19 08:07) Hs C Reactive Protein (03/22/19 08:07) Troponin I (03/22/19 08:07) Ed Iv/Invasive Line Start (03/22/19 08:07) Ekg Tracing (03/22/19 08:07) Ondansetron Injection (Zofran Injectio (03/22/19 08:15) Lactated Ringers (Lr 1000 Ml Iv Solution (03/22/19 08:07) Ketorolac Injection (Toradol Injection) (03/22/19 08:07) Chest Pa/Lat (2 View) (03/22/19 08:07) Ua Culture If Indicated (03/22/19 08:09) Acetaminophen Tablet (Tylenol Tablet) (03/22/19 09:27) Medications Given in ED Current Medications Medications Dose Ordered Sig/Katrina Route Start Time Stop Time Status Last Admin Dose Admin Ondansetron HCl 4 mg ONCE ONCE IVP 03/22/19 08:15 03/22/19 08:16 DC 03/22/19 08:18 4 MG Vital Signs/I&O 03/22/19 07:56 Temp 36.6 Pulse 113 Resp 20 B/P (MAP) 14/83 (60) Pulse Ox 94 O2 Delivery Nasal Cannula O2 Flow Rate 2.00 Capillary Refill : Less Than 3 Seconds Blood Pressure Mean: 60 Progress Note : Progress Note Seen and evaluated. IV, labs, EKG and chest x-ray ordered. Toradol 15 mg IV and LR 1 L bolus ordered. Monitor patient. Zofran 4 mg IV ordered. Monitor patient. 09: Labs reviewed and no significant findings noted. Troponin and EKG are negative. Chest x-ray does not show any pneumonia. Overall not concerning at this point especially with 3-4 days of persistent pain. We will give Tylenol 1 g by mouth now. She will continue this outpatient. She will initiate [id number] Aleve one tablet twice daily for the next 3 days and then stop. She has a follow-up appointment with Dr. Bailey next Thursday and she will keep that. I will send a copy of the chart to Dr. Bailey's office. Discharged home with return precautions. Patient verbalize understanding instructions and agreement with plan. ECG Initial ECG Impression Date: Mar 22, 2019 Initial ECG Impression Time: 08:08 Initial ECG Rate: 93 Initial ECG Rhythm: Normal Sinus Initial ECG Impression: Normal Initial ECG Comparisson: Unchanged Comment Sinus rhythm with normal axis. No evidence of ST elevation [place]. Unchanged from previous of 11/05/18. Interpreted by me. Diagnostic Imaging Diagonstic Imaging: Xray Plain Films/CT/US/NM/MRI: chest Comments [facility], [place] NAME: RUDDY GARLAND [facility] REC#: [id number] PT STATUS: REG ER : 1955 PHYSICIAN: SHARLA DOWNS MD ADMIT DATE: 03/22/19/ER Signed Date of Exam:03/22/19 CHEST PA/LAT (2 VIEW) EXAMINATION: Chest 2 view HISTORY: Headache and shortness of breath. COMPARISON: 02/28/2019 FINDINGS: The lung volumes are normal. No focal consolidation is seen. No large pleural effusion or pneumothorax is seen. The cardiomediastinal silhouette is normal in size and contour. No acute osseous abnormality is seen. IMPRESSION: 1. No acute pleuroparenchymal process. Dictated by: Dictated on workstation # [id number] Dict: 03/22/19900 Trans: 03/22/19901 PC1 [id number] Interpreted by: LAUREL BARNES DO Electronically signed by: LAUREL BARNES DO 03/22/19901 Departure Impression Primary Impression: Migraine Qualified Codes: G43.909 - Migraine, unspecified, not intractable, without status migrainosus Additional Impression: Chest wall pain Disposition: HOME, SELF-CARE Condition: Stable Departure-Patient Inst. Decision time for Depature: 09:31 Referrals: KIYA HERMAN MD (PCP/Family) Primary Care Physician Patient Instructions: Migraine Headache (DC), Chest Pain (DC), Chest Pain That Is Not Caused by the Heart (DC) Add. Discharge Instructions: All discharge instructions reviewed with patient and/or family. Voiced understanding. You may take Tylenol/acetaminophen 1000 mg every 6-8 hours as needed for pain. You may take hyti-exz-[id number] Aleve/naproxen 1 tablet twice daily for the next 3 days and then you should stop. Only take it as needed and try to limit dosing. Follow up with Dr. Bailey next Thursday as scheduled. Drink plenty of fluids. Return for worse pain, fever, vomiting, weakness, breathing problems or other concerns as needed. Copy Copies To 1: FERN BAILEY TIMOTHY D MD Mar 22, 2019 08:31
[2019-03-22 08:38] LABS: BILIRUBIN,URINE NEGATIVE (NEGATIVE); CLARITY,URINE CLEAR; COLOR,URINE YELLOW; GLUCOSE, URINE (UA) NEGATIVE (NEGATIVE); KETONES,URINE NEGATIVE (NEGATIVE); LEUKOCYTE ESTERASE ,URINE NEGATIVE (NEGATIVE); NITRITE,URINE NEGATIVE (NEGATIVE); PROTEIN,URINE NEGATIVE (NEGATIVE)
[2019-03-22 08:51] LABS: ALANINE AMINOTRANSFERASE 34 U/L (0-55); ALKALINE PHOSPHATASE 117 U/L (40-136); BILIRUBIN,TOTAL 0.2 MG/DL (0.1-1.0); BUN/CREATININE RATIO 13; CALCIUM 8.7 MG/DL (8.5-10.1); CARBON DIOXIDE 25 MMOL/L (21-32); CHLORIDE 103 MMOL/L (98-107); CREATININE SERUM 1.04 MG/DL (0.60-1.30); GFR ESTIMATED 53; GLUCOSE 180 MG/DL (70-105); POTASSIUM 4.4 MMOL/L (3.6-5.0); SODIUM 140 MMOL/L (135-145); TOTAL PROTEIN 7.4 GM/DL (6.4-8.2)
[2019-03-22 08:55] LABS: BACTERIA,URINE NEGATIVE /HPF; WBC,URINE 0-2 /HPF; YEAST,URINE FEW /HPF
--- NOTE | 2019-03-22 09:03 | Diagnostic Imaging Report ---
EXAMINATION: Chest 2 view HISTORY: Headache and shortness of breath. COMPARISON: 02/28/2019 FINDINGS: The lung volumes are normal. No focal consolidation is seen. No large pleural effusion or pneumothorax is seen. The cardiomediastinal silhouette is normal in size and contour. No acute osseous abnormality is seen. IMPRESSION: 1. No acute pleuroparenchymal process. Dictated by: Dictated on workstation # [id number]
[2019-03-22] MEDS ORDERED: ACETAMINOPHEN 500 MG TAB (TYLENOL) PO STA (09:27)
[2019-03-22 09:45] VITALS: BP 146/93
== END 2019-03-22 09:58 | disposition home or self-care (01) ==
LOC: EDUNIT# 07:46 → ER 07:47
DX: G43.909 Migraine, unspecified, not intractable, without status migrainosus (principal); R07.89 Other chest pain; J44.9 Chronic obstructive pulmonary disease, unspecified; I10 Essential (primary) hypertension; E11.9 Type 2 diabetes mellitus without complications; F41.9 Anxiety disorder, unspecified; F32.9 Major depressive disorder, single episode, unspecified; I25.10 Atherosclerotic heart disease of native coronary artery without angina pectoris; E78.00 Pure hypercholesterolemia, unspecified; G47.30 Sleep apnea, unspecified; E03.9 Hypothyroidism, unspecified; Z99.89 Dependence on other enabling machines and devices; Z87.440 Personal history of urinary (tract) infections; Z88.0 Allergy status to penicillin; Z88.5 Allergy status to narcotic agent; Z88.8 Allergy status to other drugs, medicaments and biological substances; Z79.82 Long term (current) use of aspirin; Z79.51 Long term (current) use of inhaled steroids; Z79.4 Long term (current) use of insulin; Z90.49 Acquired absence of other specified parts of digestive tract; Z95.5 Presence of coronary angioplasty implant and graft; Z82.49 Family history of ischemic heart disease and other diseases of the circulatory system
CPT/HCPCS: 36415; 71046; 80053; 81000; 84484; 85025; 86141; 93005; 96361; 96374; 96375

== ENCOUNTER 2019-04-11 07:09 | Emergency (ER) | payer MEDICARE, OTHER ==
[~2019-04-11] VITALS: Ht 162.2 cm; Wt 113.6 kg
[2019-04-11] MEDS ORDERED: LACTATED RINGERS 1,000 ML IV ONE ×2 (08:02)
[2019-04-11] MEDS ORDERED: NS IV 500 ML 500 ML IV ONE (08:02)
--- NOTE | 2019-04-11 08:12 | ED GI ---
General Chief Complaint: General Problems/Pain Stated Complaint: FLU;HEADACHE Nursing Triage Note: TO ED PER WITH W/C WITH [address] REPORTS SHE HAS HAD DIARRHEA FOR 2WEEKS, AND HEADACHE WITH NECK PAIN AND INCREACE SOA Sepsis Screen: No Definite Risk Source of Information: Patient Exam Limitations: No Limitations History of Present Illness Date Seen by Provider: Apr 11, 2019 Time Seen by Provider: 07:49 Initial Comments The patient presents to ER by private conveyance with chief complaint of nausea vomiting diarrhea for the past 2-3 weeks. She follows with Dr. Bailey in 10 days ago had labs drawn and a stool study she brought with her demonstrating no white blood cells and negative for C. difficile colitis. She's been using Imodium frequently without relief. She denies a history of diverticulitis, irritable bowel or inflammatory bowel disease. She's had her gallbladder and appendix out. She's had her carotids worked on as well as a stent in her heart. She's feeling nauseated now. She's having general body aches neck ache headache that she a ssociated being dehydrated. She says she's had poor fluid intake. She's been using Tylenol and naproxen for her discomfort with marginal relief. Allergies and Home Medications Allergies Coded Allergies: Penicillins (Verified Allergy, Unknown, 10/22/06) codeine (Verified Allergy, Unknown, UPSET STOMACH, 10/23/06) morphine (Unverified Allergy, Unknown, 12/12/14) propoxyphene (Verified Allergy, Unknown, 10/22/06) topiramate (Verified Allergy, Unknown, 10/22/06) Home Medications Acetaminophen 500 Mg Tablet, 1,000 MG PO Q6H PRN for PAIN-MILD, (Reported) Albuterol Sulfate 18 Gm Hfa.aer.ad, 2 PUFF INH Q4H PRN for SHORTNESS OF BREATH, (Reported) Amitriptyline HCl 75 Mg Tablet, 75 MG PO HS, (Reported) Amlodipine Besylate 10 Mg Tablet, 5 MG PO DAILY, (Reported) Aspirin 81 Mg Tablet.dr, 81 MG PO DAILY, (Reported) Atorvastatin Calcium 10 Mg Tablet, 10 MG PO DAILY, (Reported) Budesonide/Formoterol Fumarate 10.2 Gm Hfa.aer.ad, 2 PUFF IH BID, (Reported) Cetirizine HCl 10 Mg Tablet, 10 MG PO DAILY, (Reported) Cholecalciferol (Vitamin D3) 5,000 Unit Capsule, 5,000 UNIT PO BID, (Reported) Ciprofloxacin HCl 500 Mg Tablet, 500 MG PO BID Prescribed by: DAVIN ADHIKARI on 12/31/182013 Cyclobenzaprine HCl 10 Mg Tablet, 10 MG PO BID PRN for MUSCLE SPASMS, (Reported) Fluticasone Propionate 16 Gm [place].susp, 2 SPRAYS NS HS, (Reported) Gabapentin 400 Mg Capsule, 400 MG PO TID, (Reported) Glipizide 5 Mg Tablet, 5 MG PO DAILY, (Reported) Insulin Degludec 200 Unit/1 Ml Insuln.pen, 12 UNITS SC BID, (Reported) Levothyroxine Sodium 100 Mcg Tablet, 100 MCG PO DAILY, (Reported) Lorazepam 1 Mg Tablet, 1 MG PO DAILY PRN for ANXIETY, (Reported) Lorazepam 1 Mg Tablet, 1 MG PO HS, (Reported) Losartan Potassium 50 Mg Tablet, 50 MG PO DAILY, (Reported) Meclizine HCl 25 Mg Tablet, 25 MG PO Q6H PRN for DIZZINESS Prescribed by: DAVIN ADHIKARI on 04/07/16322 Metformin HCl 1,000 Mg Tablet, 1,000 MG PO BID, (Reported) Metoprolol Succinate 25 Mg Tab.er.24h, 25 MG PO DAILY, (Reported) Montelukast Sodium 10 Mg Tablet, 10 MG PO HS, (Reported) Multivitamin 1 Each Tablet, 1 TAB PO DAILY, (Reported) Pantoprazole Sodium 40 Mg Tablet.dr, 40 MG PO DAILY Prescribed by: MARILY PANDEY on 11/10/17837 Sucralfate 1 Gm Tablet, 1 GM PO Q6H Prescribed by: MARILY PANDEY on 11/10/17837 Tramadol HCl 50 Mg Tablet, 50 MG PO Q4H PRN for PAIN-MODERATE, (Reported) Vitamin B Complex 1 Each Capsule, 1 CAP PO DAILY, (Reported) Patient Home Medication List Home Medication List Reviewed: Yes Review of Systems Review of Systems Constitutional: No chills, No diaphoresis EENTM: No Blurred Vision, No Double Vision Respiratory: Denies Cough, Denies Shortness of Air Cardiovascular: Denies Chest Pain, Denies Lightheadedness Gastrointestinal: See HPI; Denies Abdominal Pain, Denies Blood Streaked Stools, Denies Constipated; Diarrhea, Nausea, Poor Fluid Intake, Vomiting Genitourinary: Denies Burning, Denies Discharge Musculoskeletal: No back pain, No joint pain Skin: No pruritus, No rash Psychiatric/Neurological: Denies Anxiety, Denies Depressed All Other Systems Reviewed Negative Unless Noted: Yes Past Iqhouhi-Vbqkdb-Jvzwlq Hx Patient Social History Alcohol Use: Denies Use Recreational Drug Use: No Smoking Status: Never a Smoker 2nd Hand Smoke Exposure: No Recent Foreign Travel: No Contact w/Someone Who Travel: No Recent Infectious Disease Expo: No Recent Hopitalizations: No Immunizations Up To Date Tetanus Booster (TDap): Unknown Date of Pneumonia Vaccine: Feb 05, 2017 Date of Influenza Vaccine: Dec 21, 2017 Seasonal Allergies Seasonal Allergies: No Past Medical History Surgeries: Yes (FOOT) Appendectomy, Coronary Stent, Gallbladder, Orthopedic, Thyroidectomy Respiratory: Yes (CPAP - 3L NC O2 ) Asthma, Sleep Apnea, COPD Currently Using CPAP: Yes Currently Using BIPAP: No Cardiac: Yes (STENT) Cardiomyopathy, Chronic Edema/Swelling, Coronary Artery Disease, High Cholesterol, Hypertension, Valvular Heart Disease Neurological: No 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 Disorders: No 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 [employer] History: Menopausal Sexually Transmitted Disease: No HIV/AIDS: No UTI-Chronic Gastrointestinal: No Musculoskeletal: Yes (ARTHRITIS, spinal stenosis) Arthritis, Scoliosis Endocrine: Yes Diabetes, Insulin dep, Hypothyroidsim HEENT: No Cancer: No Psychosocial: Yes Anxiety, Depression Integumentary: No Blood Disorders: No Adverse Reaction/Blood Tranf: No Family Medical History Alzheimer's disease G8 SISTER Diabetes mellitus 19 FATHER Hypertension 19 FATHER 19 MOTHER Myocardial infarction 19 FATHER 19 MOTHER Neoplasm G8 SISTER Physical Exam Vital Signs Vital Signs - First Documented 04/11/19 07:38 Temp 36.9 Pulse 97 Resp 18 B/P (MAP) 137/77 (97) Pulse Ox 100 O2 Delivery Nasal Cannula O2 Flow Rate 3.00 Capillary Refill : Less Than 3 Seconds Height/Weight/BMI Height: 5'4.00" Weight: 246lbs. 6.0oz. 111.545747bo; 43.00 BMI Method:Stated General Appearance: WD/WN, mild distress HEENT: PERRL/EOMI, pharynx normal Neck: full range of motion, supple, normal inspection Respiratory: lungs clear, normal breath sounds, no respiratory distress, no accessory muscle use Cardiovascular: normal peripheral pulses, regular rate, rhythm Peripheral Pulses: 2+ Radial Pulses (R), 2+ Radial Pulses (L) Gastrointestinal: normal bowel sounds, non tender, soft Extremities: normal range of motion, non-tender, normal inspection, normal capillary refill Neurologic/Psychiatric: alert, normal mood/affect, oriented x 3 Skin: normal color, warm/dry Focused Exam Lactate Level 04/11/19 08:30: Lactic Acid Level 1.21 Lactic Acid Level Laboratory Tests Test 04/11/19 08:30 Lactic Acid Level 1.21 MMOL/L (0.50-2.00) Progress/Results/Core Measures Results/Orders Lab Results Laboratory Tests Test 04/11/19 08:20 04/11/19 08:30 Range/Units Urine Color YELLOW Urine Clarity CLEAR Urine pH 7.0 5-9 Urine Specific [place] 1.010 L 1.016-1.022 Urine Protein NEGATIVE NEGATIVE Urine Glucose (UA) NEGATIVE NEGATIVE Urine Ketones NEGATIVE NEGATIVE Urine Nitrite NEGATIVE NEGATIVE Urine Bilirubin NEGATIVE NEGATIVE Urine Urobilinogen 0.2 < = 1.0 MG/DL Urine Leukocyte Esterase NEGATIVE NEGATIVE Urine RBC (Auto) NEGATIVE NEGATIVE Urine RBC NONE /HPF Urine WBC NONE /HPF Urine Squamous Epithelial Cells 0-2 /HPF Urine Crystals NONE /LPF Urine Bacteria NEGATIVE /HPF Urine Casts NONE /LPF Urine Mucus NEGATIVE /LPF Urine Culture Indicated CULTURE PENDING White Blood Count 8.3 4.3-11.0 10^3/uL Red Blood Count 3.97 L 4.35-5.85 10^6/uL Hemoglobin 12.3 11.5-16.0 G/DL Hematocrit 38 35-52 % Mean Corpuscular Volume 96 80-99 FL Mean Corpuscular Hemoglobin 31 25-34 PG Mean Corpuscular Hemoglobin Concent 32 32-36 G/DL Red Cell Distribution Width 12.6 10.0-14.5 % Platelet Count 238 130-400 10^3/uL Mean Platelet Volume 9.6 7.4-10.4 FL Neutrophils (%) (Auto) 77 H 42-75 % Lymphocytes (%) (Auto) 16 12-44 % Monocytes (%) (Auto) 4 0-12 % Eosinophils (%) (Auto) 2 0-10 % Basophils (%) (Auto) 1 0-10 % Neutrophils # (Auto) 6.4 1.8-7.8 X 10^3 Lymphocytes # (Auto) 1.3 1.0-4.0 X 10^3 Monocytes # (Auto) 0.4 0.0-1.0 X 10^3 Eosinophils # (Auto) 0.2 0.0-0.3 10^3/uL Basophils # (Auto) 0.1 0.0-0.1 10^3/uL Prothrombin Time 13.9 12.2-14.7 SEC INR Comment 1.0 0.8-1.4 Activated Partial Thromboplast Time 34 24-35 SEC Sodium Level 138 135-145 MMOL/L Potassium Level 4.6 3.6-5.0 MMOL/L Chloride Level 101 98-107 MMOL/L Carbon Dioxide Level 26 21-32 MMOL/L Anion Gap 11 5-14 MMOL/L Blood Urea Nitrogen 15 7-18 MG/DL Creatinine 0.91 0.60-1.30 MG/DL Estimat Glomerular Filtration Rate > 60 BUN/Creatinine Ratio 16 Glucose Level 171 H 70-105 MG/DL Lactic Acid Level 1.21 0.50-2.00 MMOL/L Calcium Level 9.0 8.5-10.1 MG/DL Corrected Calcium 9.2 8.5-10.1 MG/DL Magnesium Level 1.4 L 1.6-2.4 MG/DL Total Bilirubin 0.3 0.1-1.0 MG/DL Aspartate Amino Transf (AST/SGOT) 48 H 5-34 U/L Alanine Aminotransferase (ALT/SGPT) 46 0-55 U/L Alkaline Phosphatase 121 40-136 U/L Total Protein 7.0 6.4-8.2 GM/DL Albumin 3.8 3.2-4.5 GM/DL My Orders Orders - TO GRAY Cbc With Automated Diff (04/11/19 08:02) Comprehensive Metabolic Panel (04/11/19 08:02) Blood Culture (04/11/19 08:02) Urinalysis (04/11/19 08:02) Urine Culture (04/11/19 08:02) Protime With Inr (04/11/19 08:02) Partial Thromboplastin Time (04/11/19 08:02) Chest 1 View, Ap/Pa Only (04/11/19 08:02) Ed Iv/Invasive Line Start (04/11/19 08:02) Ed Iv/Invasive Line Start (04/11/19 08:02) Vital Signs Adult Sepsis Patie Q15M (04/11/19 08:02) Ondansetron Injection (Zofran Injectio (04/11/19 08:15) O2 (04/11/19 08:02) Remove Rings In Anticipation O (04/11/19 08:02) Lactic Acid Analyzer (04/11/19 08:02) Lactated Ringers (Lr 1000 Ml Iv Solution (04/11/19 08:02) Ed Iv/Invasive Line Start (04/11/19 08:02) Ns Iv 500 Ml (Sodium Chloride 0.9%) (04/11/19 08:02) Lactated Ringers (Lr 1000 Ml Iv Solution (04/11/19 08:02) Stool Culture (04/11/19 08:02) Fecal Wbc (04/11/19 08:02) C Difficile Ag + Toxin A/B. (04/11/19 08:02) Magnesium (04/11/19 08:13) Ct Abdomen/Pelvis W (04/11/19 08:13) Iohexol Injection (Omnipaque 350 Mg/Ml 1 (04/11/19 09:15) Received Contrast (Hold Metformin- Contr (04/11/19 09:15) Ns (Ivpb) (Sodium Chloride 0.9% Ivpb Bag (04/11/19 09:15) Magnesium 1 Gm/100 Ml Ivpb (Magnesium Cuevas (04/11/19 10:00) Ketorolac Injection (Toradol Injection) (04/11/19 13:15) General/Regular (04/11/19 Lunch) Medications Given in ED Current Medications Medications Dose Ordered Sig/Katrina Route Start Time Stop Time Status Last Admin Dose Admin Iohexol 100 ml ONCE ONCE IV 04/11/19 09:15 04/11/19 09:16 DC 04/11/19 10:06 100 ML Ketorolac Tromethamine 30 mg ONCE ONCE IVP 04/11/19 13:15 04/11/19 13:16 DC 04/11/19 13:23 30 MG Lactated Ringer's 1,000 ml @ 0 mls/hr Q0M ONCE IV 04/11/19 08:02 04/11/19 08:07 DC 04/11/19 08:36 1,000 MLS/HR Lactated Ringer's 1,000 ml @ 0 mls/hr Q0M ONCE IV 04/11/19 08:02 04/11/19 08:07 DC 04/11/19 09:40 1,000 MLS/HR Magnesium Sulfate/ Dextrose 100 ml @ 100 mls/hr ONCE ONCE IV 04/11/19 10:00 04/11/19 10:59 DC 04/11/19 11:51 100 MLS/HR Ondansetron HCl 4 mg PRN PRN IV 04/11/19 08:15 04/11/19 08:39 DC 04/11/19 08:34 4 MG Sodium Chloride 100 ml ONCE ONCE IV 04/11/19 09:15 04/11/19 09:16 DC 04/11/19 10:06 80 ML Vital Signs/I&O 04/11/19 07:38 Temp 36.9 Pulse 97 Resp 18 B/P (MAP) 137/77 (97) Pulse Ox 100 O2 Delivery Nasal Cannula O2 Flow Rate 3.00 Blood Pressure Mean: 97 Progress Progress Note #1: Time: 08:11 Progress Note Based on an adjusted body weight of 78 kg we gave her 30 mL/kg. She's not having a tremendous amount of pain but her clinical exam is consistent with dehydration. If we can obtain stool samples we will test them. We'll give her Zofran for nausea. Toradol for body aches if she doesn't have an acute kidney injury. If she has no elevated white count and she will be septic though we will still hold off giving antibiotics until we have a complete picture. Progress Note #2: Time: 15:16 Progress Note Patient has had no diarrhea since she's been here. Her body aches are improved with Toradol. We have encouraged 1-2 tablets of naproxen once or twice a day for the next couple days. She does not have coronary disease or significant kidney disease. She has a follow-up appointment on Thursday, 4 days from now with primary care. We'll send her home with some Zofran tablets. Diagnostic Imaging Diagonstic Imaging: Xray Plain Films/CT/US/NM/MRI: chest (1v) Comments NAME: RUDDY GARLAND Damon [facility] REC#: [id number] PT STATUS: REG ER : 1955 PHYSICIAN: TO GRAY MD ADMIT DATE: 04/11/19/ER Signed Date of Exam:04/11/19 CHEST 1 VIEW, AP/PA ONLY INDICATION: Shortness of breath COMPARISON: 03/22/2019 FINDINGS: Single view of the chest demonstrates stable cardiac enlargement. Lungs are clear. There is no pneumothorax. The osseous structures are normal. IMPRESSION: Stable cardiac enlargement without pulmonary edema or infiltrate. Dictated by: Dictated on workstation # [id number] Dict: 04/11/19 0854 Trans: 04/11/19 0903 ELEUTERIO [id number] Interpreted by: ELIJAH GREENWOOD Electronically signed by: ELIJAH GREENWOOD 04/11/19902 Reviewed: Reviewed by Me Diagonstic Imaging: CT (with IV contrast) Plain Films/CT/US/NM/MRI: abdomen, pelvis Comments [facility] [place], [place] NAME: RUDDY GARLAND [facility] REC#: [id number] PT STATUS: REG ER : 1955 PHYSICIAN: TO GRAY MD ADMIT DATE: 04/11/19/ER Draft Date of Exam:04/11/19 CT ABDOMEN/PELVIS W PROCEDURE: CT abdomen and pelvis with contrast. TECHNIQUE: Multiple contiguous axial images were obtained through the abdomen and pelvis after administration of intravenous contrast. Auto Exposure Controls were utilized during the CT exam to meet ALARA standards for radiation dose reduction. INDICATION: Diarrhea for two weeks as well as headache and neck pain. COMPARISON: Comparison is made with prior CT from 02/28/2019. FINDINGS: The lung bases are clear. There is generalized low density throughout the liver consistent with hepatic steatosis. No discrete liver mass is detected. The gallbladder is surgically absent. The pancreas and spleen are unremarkable. No adrenal mass is detected. Kidneys are unremarkable. Aorta demonstrates moderate atherosclerotic calcifications but is non-aneurysmal. The small and large bowel loops are normal caliber. There is no evidence of obstruction. The uterus and bladder are unremarkable. No abdominal or pelvic lymphadenopathy is detected. IMPRESSION: 1. Hepatic steatosis. 2. No acute feature in the abdomen or pelvis is identified. Dictated on workstation # [id number] Dict: 04/11/19 1030 Trans: 04/11/19 1036 TS [id number] Interpreted by: BERENICE WHITE MD Electronically signed by: Reviewed: Reviewed by Me Diagonstic Imaging: Xray Plain Films/CT/US/NM/MRI: chest (1v) Comments [id number] [place] [address] [place], [place] NAME: RUDDY GARLAND [facility] REC#: [id number] PT STATUS: REG ER : 1955 PHYSICIAN: TO GRAY MD ADMIT DATE: 04/11/19/ER Signed Date of Exam:04/11/19 CHEST 1 VIEW, AP/PA ONLY INDICATION: Shortness of breath COMPARISON: 03/22/2019 FINDINGS: Single view of the chest demonstrates stable cardiac enlargement. Lungs are clear. There is no pneumothorax. The osseous structures are normal. IMPRESSION: Stable cardiac enlargement without pulmonary edema or infiltrate. Dictated by: Dictated on workstation # [id number] Dict: 04/11/19 0854 Trans: 04/11/19 0903 ELEUTERIO [id number] Interpreted by: ELIJAH GREENWOOD Electronically signed by: ELIJAH GREENWOOD 04/11/19 0903 Reviewed: Reviewed by Me Departure Impression Primary Impression: Gastroenteritis and colitis, viral Additional Impressions: Anxiety Myalgia Disposition: 01 HOME, SELF-CARE Condition: Improved Departure-Patient Inst. Decision time for Depature: 15:17 Referrals: FERN BAILEY DO (PCP/Family) Primary Care Physician Patient Instructions: Viral Gastroenteritis, Adult (DC) Add. Discharge Instructions: Limited heating pads, topical creams such as Biofreeze or icy hot, massage. Keep your follow-up appointment with your primary care doctor. Tylenol 1000 mg every 8 hours as needed for pain. One or 2 tablets of naproxen once or twice a day as needed for body aches. Ondansetron one tablet under the tongue every 6 hours as needed for nausea or vomiting. All discharge instructions reviewed with patient and/or family. Voiced understanding. Scripts Ondansetron (Ondansetron Odt) 4 Mg Tab.rapdis 4 MG PO Q6H PRN for NAUSEA/VOMITING, #15 TAB 0 Refills Prov: TO GRAY 04/11/19 TO GRAY Apr 11, 2019 08:12
[2019-04-11] MEDS ORDERED: ONDANSETRON 4 MG/2 ML (SDV) Z0FRAN IV PRN (08:15)
[2019-04-11 08:33] LABS: BILIRUBIN,URINE NEGATIVE (NEGATIVE); CLARITY,URINE CLEAR; COLOR,URINE YELLOW; GLUCOSE, URINE (UA) NEGATIVE (NEGATIVE); KETONES,URINE NEGATIVE (NEGATIVE); LEUKOCYTE ESTERASE ,URINE NEGATIVE (NEGATIVE); NITRITE,URINE NEGATIVE (NEGATIVE); PROTEIN,URINE NEGATIVE (NEGATIVE)
[2019-04-11 08:37] LABS: BASOPHILS # (AUTO) 0.1 10^3/uL (0.0-0.1); BASOPHILS % (AUTO) 1 % (0-10); EOSINOPHILS # (AUTO) 0.2 10^3/uL (0.0-0.3); EOSINOPHILS % (AUTO) 2 % (0-10); HEMATOCRIT 38 % (35-52); HEMOGLOBIN 12.3 G/DL (11.5-16.0); LYMPHOCYTES # (AUTO) 1.3 X 10^3 (1.0-4.0); LYMPHOCYTES % (AUTO) 16 % (12-44); MEAN CORPUSCULAR HEMOGLOBIN 31 PG (25-34); MEAN CORPUSCULAR HGB CONC 32 G/DL (32-36); MEAN CORPUSCULAR VOLUME 96 FL (80-99); MEAN PLATELET VOLUME 9.6 FL (7.4-10.4); MONOCYTES # (AUTO) 0.4 X 10^3 (0.0-1.0); MONOCYTES % (AUTO) 4 % (0-12); NEUTROPHILS # (AUTO) 6.4 X 10^3 (1.8-7.8); NEUTROPHILS % (AUTO) 77 % (42-75); PLATELET COUNT 238 10^3/uL (130-400); RED CELL DISTRIBUTION WIDTH 12.6 % (10.0-14.5); WHITE BLOOD COUNT 8.3 10^3/uL (4.3-11.0)
[2019-04-11 08:41] LABS: BACTERIA,URINE NEGATIVE /HPF; SQUAMOUS EPITHELIAL CELL,UR 0-2 /HPF
[2019-04-11 08:50] LABS: PROTHROMBIN TIME PATIENT 13.9 SEC (12.2-14.7)
[2019-04-11 08:57] LABS: CARBON DIOXIDE 26 MMOL/L (21-32); CHLORIDE 101 MMOL/L (98-107); POTASSIUM 4.6 MMOL/L (3.6-5.0); SODIUM 138 MMOL/L (135-145)
[2019-04-11 08:58] LABS: ALANINE AMINOTRANSFERASE 46 U/L (0-55); ALBUMIN 3.8 GM/DL (3.2-4.5); ALKALINE PHOSPHATASE 121 U/L (40-136); BILIRUBIN,TOTAL 0.3 MG/DL (0.1-1.0); BUN/CREATININE RATIO 16; CREATININE SERUM 0.91 MG/DL (0.60-1.30); GFR ESTIMATED > 60; GLUCOSE 171 MG/DL (70-105); MAGNESIUM 1.4 MG/DL (1.6-2.4)
--- NOTE | 2019-04-11 08:58 | Diagnostic Imaging Report ---
INDICATION: Shortness of breath COMPARISON: 03/22/2019 FINDINGS: Single view of the chest demonstrates stable cardiac enlargement. Lungs are clear. There is no pneumothorax. The osseous structures are normal. IMPRESSION: Stable cardiac enlargement without pulmonary edema or infiltrate. Dictated by: Dictated on workstation # [id number]
[2019-04-11] MEDS ORDERED: IOHEXOL 350 MG/ML 100 ML (OMNIPAQUE 350) VIAL IV ONE (09:15)
[2019-04-11] MEDS ORDERED: HOLD METFORMIN - RECEIVED CONTRAST 20 ML VIAL IV SCH (09:15)
[2019-04-11] MEDS ORDERED: NS 100 ML (IVPB) BAG IV ONE (09:15)
--- NOTE | 2019-04-11 10:36 | Diagnostic Imaging Report ---
PROCEDURE: CT abdomen and pelvis with contrast. TECHNIQUE: Multiple contiguous axial images were obtained through the abdomen and pelvis after administration of intravenous contrast. Auto Exposure Controls were utilized during the CT exam to meet ALARA standards for radiation dose reduction. INDICATION: Diarrhea for two weeks as well as headache and neck pain. COMPARISON: Comparison is made with prior CT from 02/28/2019. FINDINGS: The lung bases are clear. There is generalized low density throughout the liver consistent with hepatic steatosis. No discrete liver mass is detected. The gallbladder is surgically absent. The pancreas and spleen are unremarkable. No adrenal mass is detected. Kidneys are unremarkable. Aorta demonstrates moderate atherosclerotic calcifications but is non-aneurysmal. The small and large bowel loops are normal caliber. There is no evidence of obstruction. The uterus and bladder are unremarkable. No abdominal or pelvic lymphadenopathy is detected. IMPRESSION: 1. Hepatic steatosis. 2. No acute feature in the abdomen or pelvis is identified. Dictated by: Dictated on workstation # [id number]
[2019-04-11] MEDS: MAGNESIUM 1 GM/100 ML IVPB 100 ML IV ONE ×2 (11:40→11:51)
--- NOTE | 2019-04-11 12:16 | NUR ---
PATINET HAS HAD NO DIARRHEA.
[2019-04-11] MEDS ORDERED: KETOROLAC 30 MG/ML VIAL IVP ONE (13:15)
--- NOTE | 2019-04-11 13:28 | NUR ---
FOOD TRAY GIVEN
[2019-04-11] MEDS ORDERED: ONDA4TAB11 PO (15:18)
[2019-04-11 15:29] VITALS: BP 168/80
== END 2019-04-11 15:39 | disposition home or self-care (01) ==
LOC: EDUNIT# 07:09 → ER 07:10
DX: A08.4 Viral intestinal infection, unspecified (principal); F41.9 Anxiety disorder, unspecified; M79.18 Myalgia, other site; I10 Essential (primary) hypertension; E11.9 Type 2 diabetes mellitus without complications; E78.00 Pure hypercholesterolemia, unspecified; I25.10 Atherosclerotic heart disease of native coronary artery without angina pectoris; F32.9 Major depressive disorder, single episode, unspecified; E03.9 Hypothyroidism, unspecified; G47.30 Sleep apnea, unspecified; Z99.81 Dependence on supplemental oxygen; Z88.0 Allergy status to penicillin; Z88.5 Allergy status to narcotic agent; Z88.8 Allergy status to other drugs, medicaments and biological substances; Z79.82 Long term (current) use of aspirin; Z79.51 Long term (current) use of inhaled steroids; Z79.4 Long term (current) use of insulin; Z95.5 Presence of coronary angioplasty implant and graft; Z82.49 Family history of ischemic heart disease and other diseases of the circulatory system
CPT/HCPCS: 36415; 71045; 74177; 80053; 81000; 83605; 83735; 85025; 85610; 85730; 87040; 87088

== ENCOUNTER 2019-05-14 14:49 | Emergency (ER) | payer MEDICARE, OTHER ==
[~2019-05-14] VITALS: Ht 162 cm; Wt 108.0 kg
[~2019-05-14 14:49] MED LIST changes: -CETI10TA20 PO; +CETI10TA21 PO; -MECL-106 PO; +MECL-149 PO; -MONT10TA24 PO; +MONT10TA26 PO; +ONDA4TAB11 PO
[2019-05-14] MEDS ORDERED: LACTATED RINGERS 1,000 ML IV ONE (14:58)
--- NOTE | 2019-05-14 15:07 | ED General ---
General Chief Complaint: Respiratory Problems Stated Complaint: SOA Source of Information: Patient Exam Limitations: No Limitations History of Present Illness Date Seen by Provider: May 14, 2019 Time Seen by Provider: 14:53 Initial Comments Here with 36 hours of increasing upper respiratory ingestion, cough, sinus pressure and pain and shortness of breath. Also complains of left neck/chest pain and headache. Denies nausea or vomiting. Denies dysuria or diarrhea. Chronically on O2 at 2 L and lasted albuterol treatment right before coming here today. Timing/Duration: 1-2 Days Severity: Moderate Associated Systoms: Chest Pain, Cough, Fever/Chills; No Nausea/Vomiting; Shortness of Air, Weakness Allergies and Home Medications Allergies Coded Allergies: Penicillins (Verified Allergy, Unknown, 10/22/06) codeine (Verified Allergy, Unknown, UPSET STOMACH, 10/23/06) morphine (Unverified Allergy, Unknown, 12/12/14) propoxyphene (Verified Allergy, Unknown, 10/22/06) topiramate (Verified Allergy, Unknown, 10/22/06) Home Medications Acetaminophen 500 Mg Tablet, 1,000 MG PO Q6H PRN for PAIN-MILD, (Reported) Albuterol Sulfate 18 Gm Hfa.aer.ad, 2 PUFF INH Q4H PRN for SHORTNESS OF BREATH, (Reported) Amitriptyline HCl 75 Mg Tablet, 75 MG PO HS, (Reported) Amlodipine Besylate 10 Mg Tablet, 5 MG PO DAILY, (Reported) Aspirin 81 Mg Tablet.dr, 81 MG PO DAILY, (Reported) Atorvastatin Calcium 10 Mg Tablet, 10 MG PO DAILY, (Reported) Budesonide/Formoterol Fumarate 10.2 Gm Hfa.aer.ad, 2 PUFF IH BID, (Reported) Cetirizine HCl 10 Mg Tablet, 10 MG PO DAILY, (Reported) Cholecalciferol (Vitamin D3) 5,000 Unit Capsule, 5,000 UNIT PO BID, (Reported) Ciprofloxacin HCl 500 Mg Tablet, 500 MG PO BID Prescribed by: DAVIN ADHIKARI on 12/31/182013 Cyclobenzaprine HCl 10 Mg Tablet, 10 MG PO BID PRN for MUSCLE SPASMS, (Reported) Fluticasone Propionate 16 Gm [place].susp, 2 SPRAYS NS HS, (Reported) Gabapentin 400 Mg Capsule, 400 MG PO TID, (Reported) Glipizide 5 Mg Tablet, 5 MG PO DAILY, (Reported) Insulin Degludec 200 Unit/1 Ml Insuln.pen, 12 UNITS SC BID, (Reported) Levothyroxine Sodium 100 Mcg Tablet, 100 MCG PO DAILY, (Reported) Lorazepam 1 Mg Tablet, 1 MG PO DAILY PRN for ANXIETY, (Reported) Lorazepam 1 Mg Tablet, 1 MG PO HS, (Reported) Losartan Potassium 50 Mg Tablet, 50 MG PO DAILY, (Reported) Meclizine HCl 25 Mg Tablet, 25 MG PO Q6H PRN for DIZZINESS Prescribed by: DAVIN ADHIKARI on 04/07/16 0323 Metformin HCl 1,000 Mg Tablet, 1,000 MG PO BID, (Reported) Metoprolol Succinate 25 Mg Tab.er.24h, 25 MG PO DAILY, (Reported) Montelukast Sodium 10 Mg Tablet, 10 MG PO HS, (Reported) Multivitamin 1 Each Tablet, 1 TAB PO DAILY, (Reported) Ondansetron 4 Mg Tab.rapdis, 4 MG PO Q6H PRN for NAUSEA/VOMITING Prescribed by: TO GRAY on 04/11/19 1518 Pantoprazole Sodium 40 Mg Tablet.dr, 40 MG PO DAILY Prescribed by: MARILY PANDEY on 11/10/17 08 Sucralfate 1 Gm Tablet, 1 GM PO Q6H Prescribed by: MARILY PANDEY on 11/10/17 0838 Tramadol HCl 50 Mg Tablet, 50 MG PO Q4H PRN for PAIN-MODERATE, (Reported) Vitamin B Complex 1 Each Capsule, 1 CAP PO DAILY, (Reported) Patient Home Medication List Home Medication List Reviewed: Yes Review of Systems Review of Systems Constitutional: see HPI EENTM: nose congestion, throat pain; No ear pain Respiratory: cough, short of breath Cardiovascular: chest pain; No edema Gastrointestinal: No abdominal pain, No nausea, No vomiting Genitourinary: no symptoms reported Musculoskeletal: muscle pain, neck pain Skin: no symptoms reported Psychiatric/Neurological: Anxiety, Headache Hematologic/Lymphatic: No Symptoms Reported All Other Systems Reviewed Negative Unless Noted: Yes Past Dprerlf-Naerjw-Qgchpj Hx Past Med/Social Hx: Reviewed Nursing Past Med/Soc Hx Patient Social History Alcohol Use: Denies Use Recreational Drug Use: No Smoking Status: Never a Smoker 2nd Hand Smoke Exposure: No Recent Foreign Travel: No Contact w/Someone Who Travel: No Recent Hopitalizations: No Physical Abuse: No Sexual Abuse: No Mistreated: No Fear: No Immunizations Up To Date Tetanus Booster (TDap): Unknown Date of Pneumonia Vaccine: Feb 05, 2017 Date of Influenza Vaccine: Dec 21, 2018 Seasonal Allergies Seasonal Allergies: No Past Medical History Surgeries: Yes (FOOT) Appendectomy, Coronary Stent, Gallbladder, Orthopedic, Thyroidectomy Respiratory: Yes (CPAP - 3L NC O2 ) Asthma, Sleep Apnea, COPD Currently Using CPAP: Yes Currently Using BIPAP: No Cardiac: Yes (STENT) Cardiomyopathy, Chronic Edema/Swelling, Coronary Artery Disease, High Cholesterol, Hypertension, Valvular Heart Disease Neurological: No 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 Disorders: No [employer] History: Menopausal Sexually Transmitted Disease: No HIV/AIDS: No UTI-Chronic Gastrointestinal: No Musculoskeletal: Yes (ARTHRITIS, spinal stenosis) Arthritis, Scoliosis Endocrine: Yes Diabetes, Insulin dep, Hypothyroidsim HEENT: No Cancer: No Psychosocial: Yes Anxiety, Depression Integumentary: No Blood Disorders: No Adverse Reaction/Blood Tranf: No Family Medical History Reviewed Nursing Family Hx Alzheimer's disease G8 SISTER Diabetes mellitus 19 FATHER Hypertension 19 FATHER 19 MOTHER Myocardial infarction 19 FATHER 19 MOTHER Neoplasm G8 SISTER Physical Exam-Suspected Sepsis Physical Exam Vital Signs Vital Signs - First Documented 05/14/19 14:50 Temp 36.5 Pulse 93 Resp 18 B/P (MAP) 175/77 (109) Pulse Ox 100 O2 Delivery Nasal Cannula O2 Flow Rate 3.00 Capillary Refill : Height, Weight, BMI Height: 5'4.00" Weight: 246lbs. 6.0oz. [id number]; 43.00 BMI Method:Stated General Appearance: No Apparent Distress, WD/WN HEENT: PERRL/EOMI, Pharynx Normal Neck: Non Tender, Supple Respiratory: Normal Breath Sounds, Other (course cough) Cardiovascular: No Murmur, Tachycardia Gastrointestinal: Non Tender, Soft Back: Normal Inspection, No CVA Tenderness, No Vertebral Tenderness Extremity: Normal Inspection, Normal Range of Motion Neurologic/Psychiatric: Alert, Oriented x3 Skin: normal color, warm/dry Progress/Results/Core Measures Suspected Sepsis SIRS Temperature: Pulse: Respiratory Rate: Laboratory Tests 05/14/19 15:23: White Blood Count 10.9 Blood Pressure / Mean: Laboratory Tests 05/14/19 15:23: Creatinine 1.19, Platelet Count 232, Total Bilirubin 0.3 Results/Orders Lab Results Laboratory Tests Test 05/14/19 15:23 Range/Units White Blood Count 10.9 4.3-11.0 10^3/uL Red Blood Count 3.61 L 4.35-5.85 10^6/uL Hemoglobin 11.3 L 11.5-16.0 G/DL Hematocrit 35 35-52 % Mean Corpuscular Volume 98 80-99 FL Mean Corpuscular Hemoglobin 31 25-34 PG Mean Corpuscular Hemoglobin Concent 32 32-36 G/DL Red Cell Distribution Width 13.4 10.0-14.5 % Platelet Count 232 130-400 10^3/uL Mean Platelet Volume 9.6 7.4-10.4 FL Neutrophils (%) (Auto) 80 H 42-75 % Lymphocytes (%) (Auto) 14 12-44 % Monocytes (%) (Auto) 4 0-12 % Eosinophils (%) (Auto) 2 0-10 % Basophils (%) (Auto) 0 0-10 % Neutrophils # (Auto) 8.7 H 1.8-7.8 X 10^3 Lymphocytes # (Auto) 1.5 1.0-4.0 X 10^3 Monocytes # (Auto) 0.5 0.0-1.0 X 10^3 Eosinophils # (Auto) 0.2 0.0-0.3 10^3/uL Basophils # (Auto) 0.0 0.0-0.1 10^3/uL Sodium Level 139 135-145 MMOL/L Potassium Level 4.6 3.6-5.0 MMOL/L Chloride Level 106 98-107 MMOL/L Carbon Dioxide Level 22 21-32 MMOL/L Anion Gap 11 5-14 MMOL/L Blood Urea Nitrogen 16 7-18 MG/DL Creatinine 1.19 0.60-1.30 MG/DL Estimat Glomerular Filtration Rate 46 BUN/Creatinine Ratio 13 Glucose Level 162 H 70-105 MG/DL Calcium Level 9.2 8.5-10.1 MG/DL Corrected Calcium 9.4 8.5-10.1 MG/DL Total Bilirubin 0.3 0.1-1.0 MG/DL Aspartate Amino Transf (AST/SGOT) 33 5-34 U/L Alanine Aminotransferase (ALT/SGPT) 32 0-55 U/L Alkaline Phosphatase 108 40-136 U/L Troponin I < 0.028 <0.028 NG/ML C-Reactive Protein High Sensitivity 1.86 H 0.00-0.50 MG/DL Total Protein 7.2 6.4-8.2 GM/DL Albumin 3.7 3.2-4.5 GM/DL Micro Results Microbiology 05/14/19 Influenza Types A,B Antigen (GIANLUCA) - Final, Complete My Orders Orders - SHARLA DOWNS MD Cbc With Automated Diff (05/14/19 14:58) Comprehensive Metabolic Panel (05/14/19 14:58) Hs C Reactive Protein (05/14/19 14:58) Troponin I (05/14/19 14:58) Influenza A And B Antigens (05/14/19 14:58) Chest 1 View, Ap/Pa Only (05/14/19 14:58) Ekg Tracing (05/14/19 14:58) Monitor-Rhythm Ecg Trace Only (05/14/19 14:58) Ed Iv/Invasive Line Start (05/14/19 14:58) Lactated Ringers (Lr 1000 Ml Iv Solution (05/14/19 14:58) Acetaminophen Tablet (Tylenol Tablet) (05/14/19 15:12) Ketorolac Injection (Toradol Injection) (05/14/19 15:12) Medications Given in ED Current Medications Medications Dose Ordered Sig/Katrina Route Start Time Stop Time Status Last Admin Dose Admin Lactated Ringer's 1,000 ml @ 0 mls/hr Q0M ONCE IV 05/14/19 14:58 05/14/19 15:01 DC 05/14/19 15:26 0 MLS/HR Vital Signs/I&O 05/14/19 14:50 Temp 36.5 Pulse 93 Resp 18 B/P (MAP) 175/77 (109) Pulse Ox 100 O2 Delivery Nasal Cannula O2 Flow Rate 3.00 Capillary Refill : Progress Note : Progress Note Seen and evaluated. IV, labs, UA, chest x-ray, influenza screen and EKG ordered. Monitor patient. ECG Initial ECG Impression Date: May 14, 2019 Initial ECG Impression Time: 14:54 Initial ECG Rate: 96 Initial ECG Rhythm: S.Tach Comment Sinus tachycardia with rate greater than 90. Normal axis. No evidence of ST elevation [place]. Similar to previous of 03/22/19. Interpreted by me. Diagnostic Imaging Diagonstic Imaging: Xray Plain Films/CT/US/NM/MRI: chest Comments [facility], [place], [place] NAME: RUDDY GARLAND [facility] REC#: [id number] PT STATUS: REG ER : 1955 PHYSICIAN: SHARLA DOWNS MD ADMIT DATE: 05/14/19/ER Draft Date of Exam:05/14/19 CHEST 1 VIEW, AP/PA ONLY INDICATION: Chest pain, shortness of air. COMPARISON: April 11, 2019 TECHNIQUE: Single radiograph of the chest dated May 14, 2019. FINDINGS: The cardiac silhouette is enlarged, though stable. Central pulmonary vascular congestion, increased since the prior examination. The lungs however are clear of focal pulmonary opacity. No pleural effusion. No pneumothorax. No acute osseous abnormality. IMPRESSION: Cardiomegaly with increasing central pulmonary vascular congestion without significant interstitial edema or pleural effusion. Dictated on workstation # [id number] Dict: 05/14/19 1521 Trans: 05/14/[address] [facility] [id number] Interpreted by: EPIFANIO YANES MD Electronically signed by: Departure Impression Primary Impression: Upper respiratory infection Qualified Codes: J06.9 - Acute upper respiratory infection, unspecified Additional Impression: Lymphadenopathy Disposition: 01 HOME, SELF-CARE Condition: Stable Departure-Patient Inst. Decision time for Depature: 16:18 Referrals: FERN BAILEY DO (PCP/Family) Primary Care Physician DOUG SEWELL DO Patient Instructions: Bacterial Upper Respiratory Infection, Adult (DC) Add. Discharge Instructions: All discharge instructions reviewed with patient and/or family. Voiced understanding. Take medications as directed. Follow-up with your doctor early next week for recheck and further evaluation. You may use Tylenol/acetaminophen 1000 mg every 6-8 hours as needed for fever or pain. You may use ibuprofen 600 mg every 8 hours as needed for fever or pain. Drink plenty of fluids. You may use over -the-counter Afrin nasal spray or the generic, 12 hour relief, 2 sprays to each tonsil twice daily for 3 days only and then stop. Do not use more than 3 days. Return for worse pain, fever, vomiting, weakness, breathing problems or other concerns as needed. Scripts Doxycycline Hyclate (Doxycycline Hyclate) 100 Mg Tablet 100 MG PO BID, #20 TAB 0 Refills Prov: SHARLA DOWNS MD 05/14/19 Copy Copies To 1: DOUG SEWELL TIMOTHY D MD May 14, 2019 15:06
[2019-05-14] MEDS ORDERED: ACETAMINOPHEN 500 MG TAB (TYLENOL) PO STA (15:12)
[2019-05-14] MEDS ORDERED: KETOROLAC 30 MG/ML VIAL IVP STA (15:12)
--- NOTE | 2019-05-14 15:26 | Diagnostic Imaging Report ---
INDICATION: Chest pain, shortness of air. COMPARISON: April 11, 2019 TECHNIQUE: Single radiograph of the chest dated May 14, 2019. FINDINGS: The cardiac silhouette is enlarged, though stable. Central pulmonary vascular congestion, increased since the prior examination. The lungs however are clear of focal pulmonary opacity. No pleural effusion. No pneumothorax. No acute osseous abnormality. IMPRESSION: Cardiomegaly with increasing central pulmonary vascular congestion without significant interstitial edema or pleural effusion. Dictated by: Dictated on workstation # [id number]
[2019-05-14 15:34] LABS: BASOPHILS % (AUTO) 0 % (0-10); EOSINOPHILS # (AUTO) 0.2 10^3/uL (0.0-0.3); EOSINOPHILS % (AUTO) 2 % (0-10); HEMATOCRIT 35 % (35-52); HEMOGLOBIN 11.3 G/DL (11.5-16.0); LYMPHOCYTES # (AUTO) 1.5 X 10^3 (1.0-4.0); LYMPHOCYTES % (AUTO) 14 % (12-44); MEAN CORPUSCULAR HEMOGLOBIN 31 PG (25-34); MEAN CORPUSCULAR HGB CONC 32 G/DL (32-36); MEAN CORPUSCULAR VOLUME 98 FL (80-99); MEAN PLATELET VOLUME 9.6 FL (7.4-10.4); MONOCYTES # (AUTO) 0.5 X 10^3 (0.0-1.0); MONOCYTES % (AUTO) 4 % (0-12); NEUTROPHILS # (AUTO) 8.7 X 10^3 (1.8-7.8); NEUTROPHILS % (AUTO) 80 % (42-75); PLATELET COUNT 232 10^3/uL (130-400); RED CELL DISTRIBUTION WIDTH 13.4 % (10.0-14.5); WHITE BLOOD COUNT 10.9 10^3/uL (4.3-11.0)
[2019-05-14 16:03] LABS: ALANINE AMINOTRANSFERASE 32 U/L (0-55); ALBUMIN 3.7 GM/DL (3.2-4.5); ALKALINE PHOSPHATASE 108 U/L (40-136); BILIRUBIN,TOTAL 0.3 MG/DL (0.1-1.0); BUN/CREATININE RATIO 13; CALCIUM 9.2 MG/DL (8.5-10.1); CARBON DIOXIDE 22 MMOL/L (21-32); CHLORIDE 106 MMOL/L (98-107); CREATININE SERUM 1.19 MG/DL (0.60-1.30); GFR ESTIMATED 46; GLUCOSE 162 MG/DL (70-105); POTASSIUM 4.6 MMOL/L (3.6-5.0); SODIUM 139 MMOL/L (135-145); TOTAL PROTEIN 7.2 GM/DL (6.4-8.2)
[2019-05-14] MEDS ORDERED: DOXY100T2 PO (16:20)
[2019-05-14 16:32] VITALS: BP 149/80
--- OUTSIDE RECORDS SUMMARY | 2019-05-18 01:50 | XMS REPORT | Encounter Summary ---
Author Author [facility] Organization [facility] Address Unknown Phone Unavailable Care Team Providers Care Pack Operator Name Role Phone PCP Unavailable Encounter Details Care Team Description Date Type Department Frederic Culver MD [address] [facility] [address] [place] [address] [phone] [facility] [address] [place] [address] Social History Date Tobacco Use Types Packs/Day Years Used Never Assessed Sex Assigned at Date Recorded Not on file Industry Job Start Date Occupation Not on file Not on file Not on file Travel End Travel History Travel Start No recent travel history available. documented as of this encounter Plan of Treatment Not on filedocumented as of this encounter Procedures Comments Procedure Name Priority Date/Time Associated Diag nosis PROTEIN ELECTROPHORESIS Routine 10/22/2012 SERUM 2:00 PM CDT MAGNESIUM Routine 10/22/2012 2:00 PM CDT documented in this encounter Results * Magnesium (10/22/2012 2:00 PM CDT) Magnesium 1.3 (L) 1.4 - 2.7 MG/DL [facility] Specimen Blood Performing Organization Address City/State/Zipcode Ph one Number [facility] [address] [place], [place] [address] [facility] * Protein Electrophoresis Serum (10/22/2012 2:00 PM CDT) Protein Total 7.3 6.0 - 8.2 G/DL [facility] SPE Albumin 3.5Comment: Normal protein 3.5 - 5.0 G/DL HLA B electrophoresis pattern. Alpha 1 0.2 0.1 - 0.4 G/DL [facility] Alpha 2 1.1 0.4 - 1.3 G/DL [facility] Beta 1.1 0.6 - 1.3 G/DL [facility] Gamma 1.3 0.6 - 1.5 G/DL [facility] A/G Ratio 0.9 [facility] Pathologist Reviewed by Praveen Sheets, [facility] Review MBautista,Comment: Reviewed by Jackson Sheets M.D.,Ph.D. Specimen Blood Performing Organization Address City/State/[facility] one Number [facility] [address] [place], [place] [address] [facility] documented in this encounter Visit Diagnoses Not on filedocumented in this encounter
--- OUTSIDE RECORDS SUMMARY | 2019-05-18 01:50 | XMS REPORT | Encounter Summary ---
Author Author [facility] Organization [facility] Address Unknown Phone Unavailable Care Team Providers Care Supervisor [employer] Name Role Phone PCP Unavailable Encounter Details Care Team Description Date Type Department Frederic Culver MD [address] [facility] [address] [place] [address] [phone] 07/16/2012 [facility] Encounter [address] [place] [address] Social History Date Tobacco Use Types Packs/Day [...] Procedure Name Priority Date/Time Associated Diag nosis MAGNESIUM Routine 07/16/2012 12:00 PM CDT documented in this encounter Results * Magnesium (07/16/2012 12:00 PM CDT) Magnesium 1.4 1.4 - 2.7 MG/DL [facility] Specimen Blood Performing Organization Address City/State/Zipcode Ph one Number [facility] [address] [place], [place] [address] [facility] documented in this encounter Visit Diagnoses Not on filedocumented in this encounter
--- OUTSIDE RECORDS SUMMARY | 2019-05-18 01:50 | XMS REPORT | Encounter Summary ---
Author Author [facility] Organization [facility] Address Unknown Phone Unavailable Care Team Providers Care Dictaphone Mechanic Name Role Phone PCP Unavailable Encounter Details Care Team Description Date Type Department Frederic Culver MD [address] [facility] [address] [place] [address] [phone] [facility] [address] [place] [address] Social History Date Tobacco Use Types Packs/Day [...] Procedure Name Priority Date/Time Associated Diag nosis SMOOTH MUSCLE ANTIBODY Routine 10/03/2010 1:00 PM CDT RO/SSA ANTIBODY Routine 10/03/2010 1:00 PM CDT DNA ANTIBODY Routine 10/03/2010 1:00 PM CDT GWYN QUALITATIVE Routine 10/03/2010 1:00 PM CDT ACUTE HEPATITIS PANEL Routine 10/03/2010 1:00 PM CDT documented in this encounter Results * Acute Hepatitis Panel (10/03/2010 1:00 PM CDT) Hepatitis B Non-reactive Non-reactive [facility] Surface Ag Hepatitis B Non-reactive Non-reactive [facility] Core Ab IgM Hepatitis A Ab Non-reactive Non-reactive [facility] IgM Hepatitis C Ab Non-reactive Non-reactive [facility] Specimen Blood Performing Organization Address City/State/Zipcode Ph one Number [facility] [address] [place], [place] [address] [facility] * DNA Antibody (10/03/2010 1:00 PM CDT) DNA Antibody 4 0 - 5 IU/ML [facility] Specimen Blood Performing Organization Address [facility] one Number [facility] [address] [place], [place] [address] [facility] * GWYN Qualitative (10/03/2010 1:00 PM CDT) GWYN Qualitative Negative Negative [facility] Specimen Blood Performing Organization Address [facility] one Number [facility] [address] [place] [phone] [facility] * RO/SSA Antibody (10/03/2010 1:00 PM CDT) RO/SSA Antibody Negative [facility] Specimen Blood Performing Organization Address [facility] one Number [facility] [address] [place] [phone] [facility] * Smooth Muscle Antibody (10/03/2010 1:00 PM CDT) Smooth Muscle 10 0 - 15 UNITS [facility] Antibody Specimen Blood Performing Organization Address [facility] one Number [facility] [address] [place] [phone] [facility] documented in this encounter Visit Diagnoses Not on filedocumented in this encounter
--- OUTSIDE RECORDS SUMMARY | 2019-05-18 01:50 | XMS REPORT | Clinical Summary ---
Author Author [facility] Organization [facility] Address Unknown Phone Unavailable Care Team Providers Care Edge Burnisher Name Role Phone PCP Unavailable Allergies Not on File Medications Not on file Active Problems Not on file Social History Date Tobacco Use Types Packs/Day Years Used Never Assessed Sex Assigned at Date Recorded Not on file Industry Job Start Date Occupation Not on file Not on file Not on file Travel End Travel History Travel Start No recent travel history available. Last Filed Vital Signs Not on file Plan of Treatment Not on file Results Not on filefrom Last 3 Months
--- OUTSIDE RECORDS SUMMARY | 2019-05-18 01:56 | XMS REPORT | Continuity of Care Document ---
Author Organization Unknown Address Unknown Phone Unavailable Allergies Active Description Code Type Severity Reaction Onset Reported/Identified Relationship to Patient Clinical Status Yes acetaminophen [id number] Matthias g Allergy Unknown N/A 10/22/2006 Yes codeine [id number] Drug Allergy Unknown UPSET STOMACH 05/15/2019 Yes morphine [id number] Drug Allergy Unknown N/A 05/15/2019 Yes Penicillins [id number] Drug Aller gy Unknown N/A 05/15/2019 Yes propoxyphene [id number] Drug Allergy Unknown N/A 05/15/2019 Yes topiramate [id number] Drug Allerg y Unknown N/A 05/15/2019 Medications There is no data. Problems Date Dx Coded Attending Type Code Diagnosis Diagnosed By 08/29/2009 Ot 530.81 ESO PHAGEAL REFLUX 08/29/2009 Ot 535.40 OTH SPECIFIED GASTRITIS,W/O MENTION OF H 08/29/2009 Ot 792.1 ABN FIND-STOOL CONTENTS 12/18/2009 Ot 338.18 12/18/2009 Ot 719.46 12/18/2009 Ot 729.5 12/18/2009 Ot V43.65 01/18/2010 Ot 285.9 01/18/2010 Ot 455.0 01/18/2010 Ot 455.3 01/18/2010 Ot 578.9 07/11/2010 Ot 466.0 ACUT E BRONCHITIS 07/11/2010 Ot 786.05 VENKATA RTNESS OF BREATH 10/13/2010 Ot 244.9 HYPO THYROIDISM NOS 10/13/2010 Ot 250.00 MARY LOU B JOSE WO COMPL, TYPE II OR UNSPEC TY 10/13/2010 Ot 272.4 HYPE RLIPIDEMIA NEC/NOS 10/13/2010 Ot 278.00 OBE SITY, NOS 10/13/2010 Ot 401.9 HYPE RTENSION NOS 10/13/2010 Ot 530.81 ESO PHAGEAL REFLUX 10/13/2010 Ot 780.4 DIZZ INESS AND GIDDINESS 10/13/2010 Ot 791.9 ABN URINE FINDINGS NEC 10/13/2010 Ot V58.69 OTH MED,LT,CURRENT USE 01/18/2011 Ot 300.00 ANX IETY STATE NOS 01/18/2011 Ot 462 ACUTE PHARYNGITIS 04/28/2012 Ot 275.2 DIS MAGNESIUM METABOLISM 04/28/[address] PAIN NOS 04/28/2012 Ot 786.52 TANIA NFUL RESPIRATION 01/05/2013 MARQUITA HERNANDEZ MD Ot 530.11 REFLUX ESOPHAGITIS 01/05/2013 MARQUITA HERNANDEZ MD Ot 535.50 UNSP GASTRITIS GASTRODUODENITIS W/O ME 01/05/2013 MARQUITA HERNANDEZ MD Ot 553.3 DIAPHRAGMATIC HERNIA 03/02/2013 BATSHEVA LARKIN, KIYA R Ot 285. 9 ANEMIA NOS 03/02/2013 KIYA HERMAN MD R Ot 780. 79 OTH MALAISE FATIGUE 03/13/2014 Ot 793.81 03/13/2014 Ot 250.00 03/13/2014 Ot 562.11 03/13/2014 Ot 787.7 03/13/2014 Ot 793.81 03/13/2014 Ot V58.61 03/13/2014 Ot V58.83 03/13/2014 Ot V58.61 03/13/2014 Ot V58.83 03/13/2014 Ot V76.12 03/13/2014 Ot 784.0 03/13/2014 Ot 784.0 03/13/2014 Ot 722.52 03/13/2014 Ot 726.91 03/13/2014 Ot 735.4 03/13/2014 Ot V72.84 03/13/2014 Ot V74.8 03/13/2014 Ot 250.00 03/13/2014 Ot 726.91 03/13/2014 Ot V76.12 03/13/2014 Ot 625.9 03/13/2014 Ot 627.1 03/13/2014 Ot V76.12 03/13/2014 Ot 571.8 03/13/2014 Ot 789.09 03/13/2014 GHANSHYAM LARKIN, Justyn BADILLO Ot 595.2 03/13/2014 GHANSHYAM LARKIN, Justyn BADILLO Ot 599.0 03/13/2014 Justyn MORRISSEY MD Ot 595.9 03/13/2014 MARQUITA HERNANDEZ MD Ot V72.84 03/13/2014 BATSHEVA LARKIN, KIYA R Ot 368. 9 03/13/2014 BATSHEVA LARKIN, KIYA R Ot 784. 0 03/13/2014 Ot 285.9 03/13/2014 Ot 780.79 03/13/2014 LEANNA BROOKE MD Ot V76.1 2 05/04/2014 BATSHEVA LARKIN, KIYA R Ot 599. 0 06/11/2014 BATSHEVA LARKIN, KIYA R Ot 599. 0 URIN TRACT INFECTION NOS 08/05/2014 LEANNA BROOKE MD Ot V76.1 2 09/21/2014 BATSHEVA LARKIN, KIYA R Ot 786. 2 09/21/2014 BATSHEVA LARKIN, KIYA R Ot 786. 50 09/28/2014 BATSHEVA LARKIN, KIYA R Ot 784. 0 09/28/2014 BATSHEVA LARKIN, KIYA R Ot 786. 2 09/28/2014 BATSHEVA LARKIN, KIYA R Ot 786. 50 10/05/2014 BATSHEVA LARKIN, KIYA R Ot 784. 0 11/03/2014 JUSTINO CAREY MD Ot 244. 9 HYPOTHYROIDISM NOS 11/03/2014 JUSTINO CAREY MD Ot 250. 00 DIAB JOSE WO COMPL, TYPE II OR UNSPEC TY 11/03/2014 JUSTINO CAREY MD Ot 401. 9 HYPERTENSION NOS 11/03/2014 JUSTINO CAREY MD Ot 729. 1 MYALGIA AND MYOSITIS NOS 11/03/2014 JUSTINO CAREY MD Ot 786. 50 CHEST PAIN NOS 11/03/2014 JUSTINO CAREY MD Ot 786. 52 PAINFUL RESPIRATION 11/03/2014 JUSTINO CAREY MD Ot V17. 3 FAM HX-ISCHEM HEART DIS 11/03/2014 JUSTINO CAREY MD Ot V58. 69 OTH MED,LT,CURRENT USE 11/03/2014 Ot 250.00 11/03/2014 Ot 562.11 11/03/2014 Ot 787.7 11/03/2014 Ot 793.81 11/03/2014 Ot V58.61 11/03/2014 Ot V58.83 11/03/2014 Ot V58.61 11/03/2014 Ot V58.83 11/03/2014 Ot V76.12 11/03/2014 Ot 784.0 11/03/2014 Ot 784.0 11/03/2014 Ot 722.52 11/03/2014 Ot 726.91 11/03/2014 Ot 735.4 11/03/2014 Ot V72.84 11/03/2014 Ot V74.8 11/03/2014 Ot 250.00 11/03/2014 Ot 726.91 11/03/2014 Ot V76.12 11/03/2014 Ot 625.9 11/03/2014 Ot 627.1 11/03/2014 Ot V76.12 11/03/2014 Ot 571.8 11/03/2014 Ot 789.09 11/03/2014 GHANSHYAM LARKIN, Justyn BADILLO Ot 595.2 11/03/2014 GHANSHYAM LARIKN, Justyn BADILLO Ot 599.0 11/03/2014 GHANSHYAM LARKIN, Justyn BADILLO Ot 595.9 11/03/2014 MARY LARKIN, MARQUITA Ot V72.84 11/03/2014 BATSHEVA LARKIN, KIYA R Ot 368. 9 11/03/2014 BATSHEVA LARKIN, KIYA R Ot 784. 0 11/03/2014 Ot 285.9 11/03/2014 Ot 780.79 11/03/2014 MENDY LARKIN, LEANNA Alejandra Ot V76.1 2 11/03/2014 MENDY LARKIN, LEANNA Alejandra Ot V76.1 2 11/03/2014 BATSHEVA LARKIN, KIYA R Ot 599. 0 11/03/2014 BATSHEVA LARKIN, KIYA R Ot 786. 2 11/03/2014 BATSHEVA LARKIN, KIYA R Ot 786. 50 11/03/2014 BATSHEVA LARKIN, KIYA R Ot 784. 0 11/15/2014 NWAGWU, ISIDORE O PLUMBING ASSEMBLER INSTALLER Ot 250.00 11/15/2014 NWAGWU, ISIDORE O PLUMBING ASSEMBLER INSTALLER Ot 401.9 11/15/2014 NWAGWU, ISIDORE O PLUMBING ASSEMBLER INSTALLER Ot 443.9 11/29/2014 NWAGWU, ISIDORE O PLUMBING ASSEMBLER INSTALLER Ot 250.00 11/29/2014 NWAGWU, ISIDORE O PLUMBING ASSEMBLER INSTALLER Ot 401.9 11/29/2014 NWAGWU, ISIDORE O PLUMBING ASSEMBLER INSTALLER Ot 443.9 12/06/2014 NWABBIE PEÑA PLUMBING ASSEMBLER INSTALLER Ot 250.00 12/06/2014 NWAGWUABBIE O PLUMBING ASSEMBLER INSTALLER Ot 401.9 12/06/2014 NWMARCO ANTONIOWUABBIE PLUMBING ASSEMBLER INSTALLER Ot 443.9 12/12/2014 Ot R06.02 VENKATA RTNESS OF BREATH 12/12/2014 Ot T44.7X5A A DVERSE EFFECT OF BETA-ADRENORECEPTOR AN 12/13/2014 Ot J45.901 UN SPECIFIED ASTHMA WITH (ACUTE) EXACERBA 12/13/2014 Ot R06.02 VENKATA RTNESS OF BREATH 12/15/2014 RUSLAN MADRID MD Ot F41 .9 ANXIETY DISORDER, UNSPECIFIED 12/15/2014 RUSLAN MADRID MD Ot F43 .0 ACUTE STRESS REACTION 12/15/2014 RUSLAN MADRID MD Ot R06.02 SHORTNESS OF BREATH 01/19/2015 GAMALIEL MURILLO DOSON M Ot E03. 9 01/19/2015 GAMALIEL MURILLO DOSON M Ot E11. 9 01/19/2015 GAMALIEL MURILLO DOSON M Ot E66. 9 01/19/2015 GAMALIEL MURILLO DOSON M Ot I10 01/19/2015 GAMALIEL MURILLO DOSON M Ot J45.998 02/07/2015 GAMALIEL MURILLO DOSON M Ot E03. 9 02/07/2015 CHIDI DOGAMALIELLARRY M Ot E11. 9 02/07/2015 CHIDI DOGAMALIELLARRY M Ot E66. 9 02/07/2015 CHIDI DOGAMALIELLARRY M Ot I10 02/07/2015 GAMALIEL MURILLO DOSON M Ot J45.998 02/08/2015 CHIDI DOGAMALIELLARRY M Ot E03. 9 02/08/2015 CHIDI DOGAMALIELLARRY M Ot E11. 9 02/08/2015 CHIDI DO, LARRY M Ot E66. 9 02/08/2015 CHIDI DOGAMALIELLARRY M Ot I10 02/08/2015 GAMALIEL MURILLO DOSON M Ot J45.998 02/12/2015 GAMALIEL MURILLO DOSON M Ot G47. 33 OBSTRUCTIVE SLEEP APNEA (ADULT) (PEDIATR 03/16/2015 MARIPOSA SANCHEZ APRN Ot G47.33 OBSTRUCTIVE SLEEP APNEA (ADULT) (PEDIATR 03/16/2015 MARIPOSA SANCHEZ APRN Ot G47.61 PERIODIC LIMB MOVEMENT DISORDER 03/29/2015 LARRY MURILLO DO Ot E03. 9 03/29/2015 LARRY MURILLO DO Ot E11. 9 03/29/2015 LARRY MURILLO DO Ot E66. 9 03/29/2015 LARRY MURILLO DO Ot I10 03/29/2015 LARRY MURILLO DO Ot J45.998 04/05/2015 LARRY MURILLO DO Ot E03. 9 04/05/2015 LARRY MURILLO DO Ot E11. 9 04/05/2015 LARRY MURILLO DO Ot E66. 9 04/05/2015 LARRY MURILLO DO Ot I10 04/05/2015 LARRY MURILLO DO Ot J45.998 04/24/2015 Ot V58.61 04/24/2015 Ot V58.83 04/24/2015 Ot V58.61 04/24/2015 Ot V58.83 04/24/2015 Ot V76.12 04/24/2015 Ot 784.0 04/24/2015 Ot 784.0 04/24/2015 Ot 722.52 04/24/2015 Ot 726.91 04/24/2015 Ot 735.4 04/24/2015 Ot V72.84 04/24/2015 Ot V74.8 04/24/2015 Ot 250.00 04/24/2015 Ot 726.91 04/24/2015 Ot V76.12 04/24/2015 Ot 625.9 04/24/2015 Ot 627.1 04/24/2015 Ot V76.12 04/24/2015 Ot 571.8 04/24/2015 Ot 789.09 04/24/2015 GHANSHYAM LARKIN, Justyn BADILLO Ot 595.2 04/24/2015 GHANSHYAM LARKIN, Justyn BADILLO Ot 599.0 04/24/2015 GHANSHYAM LARKIN, Justyn BADILLO Ot 595.9 04/24/2015 MARQUITA HERNANDEZ MD Ot V72.84 04/24/2015 BATSHEVA LARKIN, KIYA R Ot 368. 9 04/24/2015 BATSHEVA LARKIN, KIYA Wei Ot 784. 0 04/24/2015 Ot 285.9 04/24/2015 Ot 780.79 04/24/2015 MENDY LARKIN, LEANNA Alejandra Ot V76.1 2 04/24/2015 MENDY LARKIN, LEANNA Alejandra Ot V76.1 2 04/24/2015 BATSHEVA LARKIN, KIYA R Ot 599. 0 04/24/2015 BATSHEVA LARKIN, KIYA R Ot 786. 2 04/24/2015 BATSHEVA LARKIN, KIYA R Ot 786. 50 04/24/2015 BATSHEVA LARKIN, KIYA R Ot 784. 0 04/24/2015 NWAGWU, ISIDORE O PLUMBING ASSEMBLER INSTALLER Ot 250.00 04/24/2015 NWAGWU, ISIDORE O PLUMBING ASSEMBLER INSTALLER Ot 401.9 04/24/2015 NWAGWU, ISIDORE O PLUMBING ASSEMBLER INSTALLER Ot 443.9 04/24/2015 CHIDI DO, LARRY M Ot E03. 9 04/24/2015 CHIDI DO, LARRY M Ot E11. 9 04/24/2015 CHIDI DO, LARRY M Ot E66. 9 04/24/2015 CHIDI DO, LARRY M Ot I10 04/24/2015 CHIDI DO, LARRY M Ot J45.998 04/24/2015 CHIDI DO, LARRY M Ot E03. 9 04/24/2015 CHIDI DO, LARRY M Ot E11. 9 04/24/2015 CHIDI DO, LARRY M Ot E66. 9 04/24/2015 CHIDI DO, LARRY M Ot I10 04/24/2015 CHIDI DO, LARRY M Ot J45.998 04/26/2015 BATSHEVA LARKIN, KIYA R Ot K76. 0 04/26/2015 BATSHEVA LARKIN, KIYA R Ot K76. 0 05/21/2015 BATSHEVA LARKIN, KIYA R Ot K76. 0 06/11/2015 BATSHEVA LARKIN, KIYA R Ot K76. 0 06/28/2015 MENDY LARKIN, LEANNA Alejandra Ot Z12.3 1 ENCNTR SCREEN MAMMOGRAM FOR MALIGNANT NE 06/29/2015 MARIPOSA SANCHEZ PLUMBING ASSEMBLER INSTALLER Ot J45.909 UNSPECIFIED ASTHMA, UNCOMPLICATED 06/29/2015 MARIPOSA SANCHEZ PLUMBING ASSEMBLER INSTALLER Ot J98.4 OTHER DISORDERS OF LUNG 06/29/2015 MARIPOSA SANCHEZ PLUMBING ASSEMBLER INSTALLER Ot R06.02 SHORTNESS OF BREATH 07/05/2015 MARIPOSA SANCHEZ E PLUMBING ASSEMBLER INSTALLER Ot J45.909 UNSPECIFIED ASTHMA, UNCOMPLICATED 07/05/2015 DANIELSATHYA GUTIERRESINE E PLUMBING ASSEMBLER INSTALLER Ot J98.4 OTHER DISORDERS OF LUNG 07/05/2015 DANIELSATHYA GUTIERRESINE E PLUMBING ASSEMBLER INSTALLER Ot R06.02 SHORTNESS OF BREATH 07/18/2015 MENDY LARKIN, LEANNA Alejandra Ot Z12.3 1 ENCNTR SCREEN MAMMOGRAM FOR MALIGNANT NE 08/26/2015 SATHYA SANCHEZINE E PLUMBING ASSEMBLER INSTALLER Ot J45.909 UNSPECIFIED ASTHMA, UNCOMPLICATED 08/26/2015 DANIELSATHYA GUTIERRESINE E PLUMBING ASSEMBLER INSTALLER Ot J98.4 OTHER DISORDERS OF LUNG 08/26/2015 DANIELSATHYA GUTIERRESINE E PLUMBING ASSEMBLER INSTALLER Ot R06.02 SHORTNESS OF BREATH 08/31/2015 DANIELSATHYA GUTIERRESINE Zafar PLUMBING ASSEMBLER INSTALLER Ot J45.909 UNSPECIFIED ASTHMA, UNCOMPLICATED 08/31/2015 DANIELSATHYA GUTIERRESINE E PLUMBING ASSEMBLER INSTALLER Ot J98.4 OTHER DISORDERS OF LUNG 08/31/2015 DANIELSATHYA GUTIERRESINE Zafar PLUMBING ASSEMBLER INSTALLER Ot R06.02 SHORTNESS OF BREATH 09/27/2015 DANIELSATHYA GUTIERRESINE Zafar PLUMBING ASSEMBLER INSTALLER Ot J45.909 UNSPECIFIED ASTHMA, UNCOMPLICATED 09/27/2015 DANIELSATHYA GUTIERRESINE Zafar PLUMBING ASSEMBLER INSTALLER Ot J98.4 OTHER DISORDERS OF LUNG 09/27/2015 DANIELSATHYA GUTIERRESINE Zafar PLUMBING ASSEMBLER INSTALLER Ot R06.02 SHORTNESS OF BREATH 10/04/2015 MARIPOSA SANCHEZ PLUMBING ASSEMBLER INSTALLER Ot J45.909 UNSPECIFIED ASTHMA, UNCOMPLICATED 10/04/2015 DANIELSATHYA GUTIERRESINE Zafar PLUMBING ASSEMBLER INSTALLER Ot J98.4 OTHER DISORDERS OF LUNG 10/04/2015 SATHYA SANCHEZINE E PLUMBING ASSEMBLER INSTALLER Ot R06.02 SHORTNESS OF BREATH 10/08/2015 NADJA LARKIN, MARCELO Alejandra Ot M47.8 96 OTHER SPONDYLOSIS, LUMBAR REGION 10/26/2015 NADJA LARKIN, MARCELO Alejandra Ot M47.8 96 OTHER SPONDYLOSIS, LUMBAR REGION 11/02/2015 MAGDY ZIEGLER APRN Ot F41 .9 ANXIETY DISORDER, UNSPECIFIED 11/02/2015 MAGDY ZIEGLER APRN Ot I51 .7 CARDIOMEGALY 11/02/2015 MAGDY ZIEGLER APRN Ot R00 .2 PALPITATIONS 11/02/2015 MAGDY ZIEGLER APRN Ot R06.00 DYSPNEA, UNSPECIFIED 11/02/2015 NADJA LARKIN, MARCELO Alejandra Ot M47.8 96 OTHER SPONDYLOSIS, LUMBAR REGION 11/05/2015 MAGDY ZIEGLER PLUMBING ASSEMBLER INSTALLER Ot F41 .9 ANXIETY DISORDER, UNSPECIFIED 11/05/2015 MAGDY ZIEGLER PLUMBING ASSEMBLER INSTALLER Ot I51 .7 CARDIOMEGALY 11/05/2015 MAGDY ZIEGLER PLUMBING ASSEMBLER INSTALLER Ot R00 .2 PALPITATIONS 11/05/2015 MAGDY ZIEGLER PLUMBING ASSEMBLER INSTALLER Ot R06.00 DYSPNEA, UNSPECIFIED 11/23/2015 MAGDY ZIEGLER PLUMBING ASSEMBLER INSTALLER Ot E11.649 TYPE 2 DIABETES MELLITUS WITH HYPOGLYCEM 11/23/2015 MAGDY ZIEGLER PLUMBING ASSEMBLER INSTALLER Ot E11 .9 TYPE 2 DIABETES MELLITUS WITHOUT COMPLIC 11/23/2015 MAGDY ZIEGLER APRN Ot F41 .9 ANXIETY DISORDER, UNSPECIFIED 11/23/2015 MAGDY ZIEGLER PLUMBING ASSEMBLER INSTALLER Ot I51 .7 CARDIOMEGALY 11/23/2015 MAGDY ZIEGLER APRN Ot R05 COUGH 11/23/2015 MAGDY ZIEGLER APRN Ot R10.10 UPPER ABDOMINAL PAIN, UNSPECIFIED 11/23/2015 MAGDY ZIEGLER PLUMBING ASSEMBLER INSTALLER Ot Z79.899 OTHER HALF-WAY (CURRENT) DRUG THERAPY 11/26/2015 MAGDY ZIEGLER PLUMBING ASSEMBLER INSTALLER Ot E11.649 TYPE 2 DIABETES MELLITUS WITH HYPOGLYCEM 11/26/2015 MAGDY ZIEGLER PLUMBING ASSEMBLER INSTALLER Ot E11 .9 TYPE 2 DIABETES MELLITUS WITHOUT COMPLIC 11/26/2015 MAGDY ZIEGLER APRN Ot F41 .9 ANXIETY DISORDER, UNSPECIFIED 11/26/2015 MAGDY ZIEGLER PLUMBING ASSEMBLER INSTALLER Ot I51 .7 CARDIOMEGALY 11/26/2015 MAGDY ZIEGLER APRN Ot R05 COUGH 11/26/2015 MAGDY ZIEGLER PLUMBING ASSEMBLER INSTALLER Ot R10.10 UPPER ABDOMINAL PAIN, UNSPECIFIED 11/26/2015 MAGDY ZIEGLER PLUMBING ASSEMBLER INSTALLER Ot Z79.899 OTHER CHIEF MEDICAL OFFICER (CURRENT) DRUG THERAPY 11/28/2015 MARIPOSA SANCHEZ PLUMBING ASSEMBLER INSTALLER Ot J45.909 UNSPECIFIED ASTHMA, UNCOMPLICATED 11/28/2015 MARIPOSA SANCHEZ PLUMBING ASSEMBLER INSTALLER Ot J98.4 OTHER DISORDERS OF LUNG 11/28/2015 MARIPOSA SANCHEZ PLUMBING ASSEMBLER INSTALLER Ot R06.02 SHORTNESS OF BREATH 11/28/2015 BRENDA LARKIN, NGHIA Alejandra Ot G47. 33 OBSTRUCTIVE SLEEP APNEA (ADULT) (PEDIATR 11/28/2015 NGHIA GUTIERREZ MD Ot I10 ESSENTIAL (PRIMARY) HYPERTENSION 11/28/2015 NGHIA GUTIERREZ MD Ot J98. 4 OTHER DISORDERS OF LUNG 11/28/2015 NGHIA GUTIERREZ MD Ot R06. 02 SHORTNESS OF BREATH 11/28/2015 NGHIA GUTIERREZ MD Ot R07. 9 CHEST PAIN, UNSPECIFIED 11/28/2015 NGHIA GUTIERREZ MD Ot G47. 33 OBSTRUCTIVE SLEEP APNEA (ADULT) (PEDIATR 11/28/2015 NGHIA GUTIERREZ MD Ot I10 ESSENTIAL (PRIMARY) HYPERTENSION 11/28/2015 NGHIA GUTIERREZ MD Ot J98. 4 OTHER DISORDERS OF LUNG 11/28/2015 NGHIA GUTIERREZ MD Ot R06. 02 SHORTNESS OF BREATH 11/28/2015 NGHIA GUTIERREZ MD Ot R07. 9 CHEST PAIN, UNSPECIFIED 11/29/2015 BATSHEVA LARKIN, KIYA Wei Ot D64. 9 ANEMIA, UNSPECIFIED 12/03/2015 NGHIA GUTIERREZ MD Ot G47. 33 OBSTRUCTIVE SLEEP APNEA (ADULT) (PEDIATR 12/03/2015 NGHIA GUTIERREZ MD Ot I10 ESSENTIAL (PRIMARY) HYPERTENSION 12/03/2015 NGHIA GUTIERREZ MD Ot J98. 4 OTHER DISORDERS OF LUNG 12/03/2015 NGHIA GUTIERREZ MD Ot R06. 02 SHORTNESS OF BREATH 12/03/2015 NGHIA GUTIERREZ MD Ot R07. 9 CHEST PAIN, UNSPECIFIED 12/12/2015 Ot 784.0 HEAD ACHE 12/12/2015 Ot 722.52 LUM B/LUMBOSAC DISC DEGEN 12/12/2015 Ot 726.91 EXO STOSIS, SITE NOS 12/12/2015 Ot 735.4 OTHE R HAMMER TOE 12/12/2015 Ot V72.84 EXA M PRE- OPERATIVE NOS 12/12/2015 Ot V74.8 SCRE EN-BACTERIAL DIS NEC 12/12/2015 Ot 250.00 MARY LOU B JOSE WO COMPL, TYPE II OR UNSPEC TY 12/12/2015 Ot 726.91 EXO STOSIS, SITE NOS 12/12/2015 Ot V76.12 OTH SCREEN MAMMO- MALIGN NEOPLASM OF CALEB 12/12/2015 Ot 625.9 FEM GENITAL SYMPTOMS NOS 12/12/2015 Ot 627.1 POST MENOPAUSAL BLEEDING 12/12/2015 Ot V76.12 OTH SCREEN MAMMO- MALIGN NEOPLASM OF CALEB 12/12/2015 Ot 571.8 CALF SKINNER JOAQUINA LIVER DIS NEC 12/12/2015 Ot 789.09 ABD OMINAL PAIN, OTHER SPECIFIED SITE 12/12/2015 Justyn MORRISSEY MD Ot 595.2 CHRONIC CYSTITIS NEC 12/12/2015 Justyn MORRISSEY MD Ot 599.0 URIN TRACT INFECTION NOS 12/12/2015 Justyn MORRISSEY MD Ot 595.9 CYSTITIS NOS 12/12/2015 MARQUITA HERNANDEZ MD Ot V72.84 EXAM PRE-OPERATIVE NOS 12/12/2015 KIYA HERMAN MD R Ot 368. 9 VISUAL DISTURBANCE NOS 12/12/2015 KIYA HERMAN MD R Ot 784. 0 HEADACHE 12/12/2015 Ot 285.9 ANEM IA NOS 12/12/2015 Ot 780.79 OTH MALAISE FATIGUE 12/12/2015 LEANNA BROOKE MD Ot V76.1 2 OTH SCREEN MAMMO-MALIGN NEOPLASM OF CALEB 12/12/2015 LEANNA BROOKE MD Ot V76.1 2 OTH SCREEN MAMMO-MALIGN NEOPLASM OF CALEB 12/12/2015 KIYA HERMAN MD Ot 599. 0 URIN TRACT INFECTION NOS 12/12/2015 KIYA HERMAN MD R Ot 786. 2 COUGH 12/12/2015 KIYA HERMAN MD R Ot 786. 50 CHEST PAIN NOS 12/12/2015 KIYA HERMAN MD R Ot 784. 0 HEADACHE 12/12/2015 NWMARCO ANTONIOWU, ISIDORE O PLUMBING ASSEMBLER INSTALLER Ot 250.00 DIAB JOSE WO COMPL, TYPE II OR UNSPEC TY 12/12/2015 NWMARCO ANTONIOWU, ISIDORE O PLUMBING ASSEMBLER INSTALLER Ot 401.9 HYPERTENSION NOS 12/12/2015 NWMARCO ANTONIOWSerene, ISIDORE O PLUMBING ASSEMBLER INSTALLER Ot 443.9 PERIPH VASCULAR DIS NOS 12/12/2015 LARRY MURILLO DO Ot E03. 9 HYPOTHYROIDISM, UNSPECIFIED 12/12/2015 LARRY MURILLO DO Ot E11. 9 TYPE 2 DIABETES MELLITUS WITHOUT COMPLIC 12/12/2015 LARRY MURILLO DO Ot E66. 9 OBESITY, UNSPECIFIED 12/12/2015 LARRY MURILLO DO Ot I10 ESSENTIAL (PRIMARY) HYPERTENSION 12/12/2015 CHIDI LARRY Damon Ot J45.998 OTHER ASTHMA 12/12/2015 CHIDI DO LARRY Damon Ot E03. 9 HYPOTHYROIDISM, UNSPECIFIED 12/12/2015 CHIDI RUCKER LARRY Damon Ot E11. 9 TYPE 2 DIABETES MELLITUS WITHOUT COMPLIC 12/12/2015 CHIDI DO LARRY Damon Ot E66. 9 OBESITY, UNSPECIFIED 12/12/2015 GAMALIEL MURILLO DOSON Damon Ot I10 ESSENTIAL (PRIMARY) HYPERTENSION 12/12/2015 CHIDI RUCKER LARRY Jose Ot J45.998 OTHER ASTHMA 12/12/2015 BATSHEVA LARKIN, KIYA R Ot K76. 0 FATTY (CHANGE OF) LIVER, NOT ELSEWHERE C 12/12/2015 MENDY LARKIN, LEANNA J Ot Z12.3 1 ENCNTR SCREEN MAMMOGRAM FOR MALIGNANT NE 12/12/2015 NADJA LARKIN, MARCELO Alejandra Ot M47.8 96 OTHER SPONDYLOSIS, LUMBAR REGION 12/12/2015 BATSHEVA LARKIN, KIYA R Ot D64. 9 ANEMIA, UNSPECIFIED 12/12/2015 NGHIA GUTIERREZ MD Ot G47. 33 OBSTRUCTIVE SLEEP APNEA (ADULT) (PEDIATR 12/12/2015 NGHIA GUTIERREZ MD Ot I10 ESSENTIAL (PRIMARY) HYPERTENSION 12/12/2015 NGHIA GUTIERREZ MD Ot J98. 4 OTHER DISORDERS OF LUNG 12/12/2015 NGHIA GUTIERREZ MD Ot R06. 02 SHORTNESS OF BREATH 12/12/2015 NGHIA GUTIERREZ MD Ot R07. 9 CHEST PAIN, UNSPECIFIED 12/12/2015 MARIPOSA SANCHEZ PLUMBING ASSEMBLER INSTALLER Ot J45.909 UNSPECIFIED ASTHMA, UNCOMPLICATED 12/12/2015 MARIPOSA SANCHEZ PLUMBING ASSEMBLER INSTALLER Ot J98.4 OTHER DISORDERS OF LUNG 12/12/2015 MARIPOSA SANCHEZ PLUMBING ASSEMBLER INSTALLER Ot R06.02 SHORTNESS OF BREATH 12/12/2015 NGHIA GUTIERREZ MD Ot R07. 9 CHEST PAIN, UNSPECIFIED 12/13/2015 NGHIA GUTIERREZ MD Ot R07. 9 CHEST PAIN, UNSPECIFIED 12/13/2015 NGHIA GUTIERREZ MD Ot G47. 33 OBSTRUCTIVE SLEEP APNEA (ADULT) (PEDIATR 12/13/2015 NGHIA GUTIERREZ MD Ot I10 ESSENTIAL (PRIMARY) HYPERTENSION 12/13/2015 NGHIA GUTIERREZ MD Ot J98. 4 OTHER DISORDERS OF LUNG 12/13/2015 NGHIA GUTIERREZ MD Ot R06. 02 SHORTNESS OF BREATH 12/13/2015 NGHIA GUTIERREZ MD Ot R07. 9 CHEST PAIN, UNSPECIFIED 12/19/2015 NGHIA GUTIERREZ MD Ot G47. 33 OBSTRUCTIVE SLEEP APNEA (ADULT) (PEDIATR 12/19/2015 NGHIA GUTIERREZ MD Ot I10 ESSENTIAL (PRIMARY) HYPERTENSION 12/19/2015 NGHIA GUTIERREZ MD Ot J98. 4 OTHER DISORDERS OF LUNG 12/19/2015 NGHIA GUTIERREZ MD Ot R06. 02 SHORTNESS OF BREATH 12/19/2015 NGHIA GUTIERREZ MD Ot R07. 9 CHEST PAIN, UNSPECIFIED 12/27/2015 NGHIA GUTIERREZ MD Ot E11. 9 TYPE 2 DIABETES MELLITUS WITHOUT COMPLIC 12/27/2015 NGHIA GUTIERREZ MD Ot E66. 9 OBESITY, UNSPECIFIED 12/27/2015 NGHIA GUTIERREZ MD Ot E78. 5 HYPERLIPIDEMIA, UNSPECIFIED 12/27/2015 NGHIA GUTIERREZ MD Ot G47. 33 OBSTRUCTIVE SLEEP APNEA (ADULT) (PEDIATR 12/27/2015 NGHIA GUTIERREZ MD Ot I10 ESSENTIAL (PRIMARY) HYPERTENSION 12/27/2015 NGHAI GUTIERREZ MD Ot I25. 10 ATHSCL HEART DISEASE OF [place] CORONARY 12/27/2015 NGHIA GUTIERREZ MD Ot J44. 9 CHRONIC OBSTRUCTIVE PULMONARY DISEASE, U 12/27/2015 NGHIA GUTIERREZ MD Ot M32. 9 SYSTEMIC LUPUS ERYTHEMATOSUS, UNSPECIFIE 12/27/2015 NGHIA GUTIERREZ MD Ot M79.609 PAIN IN UNSPECIFIED LIMB 12/27/2015 NGHIA GUTIERREZ MD Ot Z23 ENCOUNTER FOR IMMUNIZATION 12/27/2015 NGHIA GUTIERREZ MD Ot Z68. 41 BODY MASS INDEX (BMI) 40.0-44.9, ADULT 12/27/2015 NGHIA GUTIERREZ MD Ot Z79.899 OTHER HALF-WAY (CURRENT) DRUG THERAPY 12/27/2015 NGHIA GUTIERREZ MD Ot G47. 33 OBSTRUCTIVE SLEEP APNEA (ADULT) (PEDIATR 12/27/2015 NGHIA GUTIERREZ MD Ot I10 ESSENTIAL (PRIMARY) HYPERTENSION 12/27/2015 NGHIA GUTIERREZ MD Ot J98. 4 OTHER DISORDERS OF LUNG 12/27/2015 NGHIA GUTIERREZ MD Ot R06. 02 SHORTNESS OF BREATH 12/27/2015 NGHIA GUTIERREZ MD Ot R07. 9 CHEST PAIN, UNSPECIFIED 12/31/2015 DAVIN DODSON MD Ot E11.9 TYPE 2 DIABETES MELLITUS WITHOUT COMPLIC 12/31/2015 DAVIN DODSON MD Ot I10 ESSENTIAL (PRIMARY) HYPERTENSION 12/31/2015 DAVIN DODSON MD Ot M79.662 PAIN IN LEFT LOWER LEG 12/31/2015 DAVIN DODSON MD Ot Z79.82 CHIEF MEDICAL OFFICER (CURRENT) USE OF ASPIRIN 12/31/2015 DAVIN DODSON MD T Ot Z79.899 OTHER CHIEF MEDICAL OFFICER (CURRENT) DRUG THERAPY 12/31/2015 DAVIN DODSON MD T Ot Z95.5 PRESENCE OF CORONARY ANGIOPLASTY IMPLANT 01/02/2016 DAVIN DODSON MD Ot E11.9 TYPE 2 DIABETES MELLITUS WITHOUT COMPLIC 01/02/2016 DAVIN DODSON MD Ot I10 ESSENTIAL (PRIMARY) HYPERTENSION 01/02/2016 DAVIN DODSON MD Ot M79.662 PAIN IN LEFT LOWER LEG 01/02/2016 DAVIN DODSON MD Ot Z79.82 HALF-WAY (CURRENT) USE OF ASPIRIN 01/02/2016 DAVIN DODSON MD T Ot Z79.899 OTHER HALF-WAY (CURRENT) DRUG THERAPY 01/02/2016 DAVIN DODSON MD T Ot Z95.5 PRESENCE OF CORONARY ANGIOPLASTY IMPLANT 01/02/2016 NGHIA GUTIERREZ MD Ot G47. 33 OBSTRUCTIVE SLEEP APNEA (ADULT) (PEDIATR 01/02/2016 NGHIA GUTIERREZ MD Ot I10 ESSENTIAL (PRIMARY) HYPERTENSION 01/02/2016 NGHIA GUTIERREZ MD Ot J98. 4 OTHER DISORDERS OF LUNG 01/02/2016 NGHIA GUTIERREZ MD Ot R06. 02 SHORTNESS OF BREATH 01/02/2016 NGHIA GUTIERREZ MD Ot R07. 9 CHEST PAIN, UNSPECIFIED 01/04/2016 NGHIA GUTIERREZ MD Ot G47. 33 OBSTRUCTIVE SLEEP APNEA (ADULT) (PEDIATR 01/04/2016 NGHIA GUTIERREZ MD Ot I10 ESSENTIAL (PRIMARY) HYPERTENSION 01/04/2016 NGHIA GUTIERREZ MD Ot J98. 4 OTHER DISORDERS OF LUNG 01/04/2016 NGHAI GUTIERREZ MD Ot R06. 02 SHORTNESS OF BREATH 01/04/2016 NGHIA GUTIERREZ MD Ot R07. 9 CHEST PAIN, UNSPECIFIED 01/11/2016 Ot 722.52 LUM B/LUMBOSAC DISC DEGEN 01/11/2016 Ot 726.91 EXO STOSIS, SITE NOS 01/11/2016 Ot 735.4 OTHE R HAMMER TOE 01/11/2016 Ot V72.84 EXA M PRE- OPERATIVE NOS 01/11/2016 Ot V74.8 SCRE EN-BACTERIAL DIS NEC 01/11/2016 Ot 250.00 MARY LOU B JOSE WO COMPL, TYPE II OR UNSPEC TY 01/11/2016 Ot 726.91 EXO STOSIS, SITE NOS 01/11/2016 Ot V76.12 OTH SCREEN MAMMO- MALIGN NEOPLASM OF [place] 01/11/2016 Ot 625.9 FEM GENITAL SYMPTOMS NOS 01/11/2016 Ot 627.1 POST MENOPAUSAL BLEEDING 01/11/2016 Ot V76.12 OTH SCREEN MAMMO- MALIGN NEOPLASM OF [place] 01/11/2016 Ot 571.8 CALF SKINNER JOAQUINA LIVER DIS NEC 01/11/2016 Ot 789.09 ABD OMINAL PAIN, OTHER SPECIFIED SITE 01/11/2016 Justyn MORRISSEY MD Ot 595.2 CHRONIC CYSTITIS NEC 01/11/2016 Justyn MORRISSEY MD Ot 599.0 URIN TRACT INFECTION NOS 01/11/2016 Justyn MORRISSEY MD Ot 595.9 CYSTITIS NOS 01/11/2016 MARQUITA HERNANDEZ MD Ot V72.84 EXAM PRE-OPERATIVE NOS 01/11/2016 KIYA HERMAN MD Ot 368. 9 VISUAL DISTURBANCE NOS 01/11/2016 KIYA HERMAN MD Ot 784. 0 HEADACHE 01/11/2016 Ot 285.9 ANEM IA NOS 01/11/2016 Ot 780.79 OTH MALAISE FATIGUE 01/11/2016 LEANNA BROOKE MD Ot V76.1 2 OTH SCREEN MAMMO-MALIGN NEOPLASM OF [place] 01/11/2016 LEANNA BROOKE MD J Ot V76.1 2 OTH SCREEN MAMMO-MALIGN NEOPLASM OF [place] 01/11/2016 BATSHEVA LARKIN, KIYA R Ot 599. 0 URIN TRACT INFECTION NOS 01/11/2016 BATSHEVA LARKIN, KIYA R Ot 786. 2 COUGH 01/11/2016 BATSHEVA LARKIN, KIYA R Ot 786. 50 CHEST PAIN NOS 01/11/2016 BATSHEVA LARKIN, KIYA R Ot 784. 0 HEADACHE 01/11/2016 NWAGWU, ISIDORE O PLUMBING ASSEMBLER INSTALLER Ot 250.00 DIAB JOSE WO COMPL, TYPE II OR UNSPEC TY 01/11/2016 NWAGWU, ISIDORE O PLUMBING ASSEMBLER INSTALLER Ot 401.9 HYPERTENSION NOS 01/11/2016 NWAGWU, ISIDORE O PLUMBING ASSEMBLER INSTALLER Ot 443.9 PERIPH VASCULAR DIS NOS 01/11/2016 LARRY MURILLO DO Ot E03. 9 HYPOTHYROIDISM, UNSPECIFIED 01/11/2016 LARRY MURILLO DO Ot E11. 9 TYPE 2 DIABETES MELLITUS WITHOUT COMPLIC 01/11/2016 LARRY MURILLO DO Ot E66. 9 OBESITY, UNSPECIFIED 01/11/2016 LARRY MURILLO DO Ot I10 ESSENTIAL (PRIMARY) HYPERTENSION 01/11/2016 LARRY MURILLO DO Ot J45.998 OTHER ASTHMA 01/11/2016 LARRY MURILLO DO Ot E03. 9 HYPOTHYROIDISM, UNSPECIFIED 01/11/2016 LARRY MURILLO DO Ot E11. 9 TYPE 2 DIABETES MELLITUS WITHOUT COMPLIC 01/11/2016 LARRY MURILLO DO Ot E66. 9 OBESITY, UNSPECIFIED 01/11/2016 LARRY MURILLO DO Ot I10 ESSENTIAL (PRIMARY) HYPERTENSION 01/11/2016 LARRY MURILLO DO Ot J45.998 OTHER ASTHMA 01/11/2016 BATSHEVA LARKIN, KIYA R Ot K76. 0 FATTY (CHANGE OF) LIVER, NOT ELSEWHERE C 01/11/2016 MENDY LARKIN, LEANNA Alejandra Ot Z12.3 1 ENCNTR SCREEN MAMMOGRAM FOR MALIGNANT NE 01/11/2016 NADJA LARKIN, MARCELO Alejandra Ot M47.8 96 OTHER SPONDYLOSIS, LUMBAR REGION 01/11/2016 BATSHEVA LARKIN, KIYA R Ot D64. 9 ANEMIA, UNSPECIFIED 01/11/2016 NGHIA GUTIERREZ MD Ot G47. 33 OBSTRUCTIVE SLEEP APNEA (ADULT) (PEDIATR 01/11/2016 NGHIA GUTIERREZ MD Ot I10 ESSENTIAL (PRIMARY) HYPERTENSION 01/11/2016 NGHIA GUTIERREZ MD Ot J98. 4 OTHER DISORDERS OF LUNG 01/11/2016 NGHIA GUTIERREZ MD Ot R06. 02 SHORTNESS OF BREATH 01/11/2016 NGHIA GUTIERREZ MD Ot R07. 9 CHEST PAIN, UNSPECIFIED 01/11/2016 NGHIA GUTIERREZ MD Ot G47. 33 OBSTRUCTIVE SLEEP APNEA (ADULT) (PEDIATR 01/11/2016 NGHIA GUTIERREZ MD Ot I10 ESSENTIAL (PRIMARY) HYPERTENSION 01/11/2016 NGHIA GUTIERREZ MD Ot J98. 4 OTHER DISORDERS OF LUNG 01/11/2016 NGHIA GUTIERREZ MD Ot R06. 02 SHORTNESS OF BREATH 01/11/2016 NGHIA GUTIERREZ MD Ot R07. 9 CHEST PAIN, UNSPECIFIED 01/11/2016 MARIPOSA SANCHEZ PLUMBING ASSEMBLER INSTALLER Ot J45.909 UNSPECIFIED ASTHMA, UNCOMPLICATED 01/11/2016 MARIPOSA SANCHEZ PLUMBING ASSEMBLER INSTALLER Ot J98.4 OTHER DISORDERS OF LUNG 01/11/2016 MARIPOSA SANCHEZ PLUMBING ASSEMBLER INSTALLER Ot R06.02 SHORTNESS OF BREATH 01/11/2016 NGHIA GUTIERREZ MD Ot G47. 33 OBSTRUCTIVE SLEEP APNEA (ADULT) (PEDIATR 01/11/2016 NGHIA GUTIERREZ MD Ot I10 ESSENTIAL (PRIMARY) HYPERTENSION 01/11/2016 NGHIA GUTIERREZ MD Ot J98. 4 OTHER DISORDERS OF LUNG 01/11/2016 NGHIA GUTIERREZ MD Ot R06. 02 SHORTNESS OF BREATH 01/11/2016 NGHIA GUTIERREZ MD Ot R07. 9 CHEST PAIN, UNSPECIFIED 01/15/2016 NGHIA GUTIERREZ MD Ot E11. 9 TYPE 2 DIABETES MELLITUS WITHOUT COMPLIC 01/15/2016 NGHIA GUTIERREZ MD Ot E66. 9 OBESITY, UNSPECIFIED 01/15/2016 NGHIA GUTIERREZ MD Ot E78. 5 HYPERLIPIDEMIA, UNSPECIFIED 01/15/2016 NGHIA GUTIERREZ MD Ot G47. 33 OBSTRUCTIVE SLEEP APNEA (ADULT) (PEDIATR 01/15/2016 NGHIA GUTIERREZ MD Ot I10 ESSENTIAL (PRIMARY) HYPERTENSION 01/15/2016 NGHIA GUTIERREZ MD Ot I25. 10 ATHSCL HEART DISEASE OF [place] CORONARY 01/15/2016 NGHIA GUTIERREZ MD Ot J44. 9 CHRONIC OBSTRUCTIVE PULMONARY DISEASE, U 01/15/2016 NGHIA GUTIERREZ MD Ot M32. 9 SYSTEMIC LUPUS ERYTHEMATOSUS, UNSPECIFIE 01/15/2016 NGHIA GUTIERREZ MD Ot M79.609 PAIN IN UNSPECIFIED LIMB 01/15/2016 NGHIA GUTIERREZ MD Ot Z23 ENCOUNTER FOR IMMUNIZATION 01/15/2016 NGHIA GUTIERREZ MD Ot Z68. 41 BODY MASS INDEX (BMI) 40.0-44.9, ADULT 01/15/2016 NGHIA GUTIERREZ MD, Ot Z79.899 OTHER HALF-WAY (CURRENT) DRUG THERAPY 02/03/2016 BATSHEVA LARKIN, KIYA Wei Ot D64. 9 ANEMIA, UNSPECIFIED 03/26/2016 NGHIA GUTIERREZ MD Ot E11. 9 TYPE 2 DIABETES MELLITUS WITHOUT COMPLIC 03/26/2016 NGHIA GUTIERREZ MD Ot E78. 2 MIXED HYPERLIPIDEMIA 03/26/2016 NGHIA GUTIERREZ MD Ot I10 ESSENTIAL (PRIMARY) HYPERTENSION 03/26/2016 NGHIA GUTIERREZ MD Ot I25. 10 ATHSCL HEART DISEASE OF [place] CORONARY 03/26/2016 NGHIA GUTIERREZ MD Ot R07. 89 OTHER CHEST PAIN 03/31/2016 NGHIA GUTIERREZ MD Ot E11. 9 TYPE 2 DIABETES MELLITUS WITHOUT COMPLIC 03/31/2016 NGHIA GUTIERREZ MD Ot E78. 2 MIXED HYPERLIPIDEMIA 03/31/2016 NGHIA GUTIERREZ MD Ot I10 ESSENTIAL (PRIMARY) HYPERTENSION 03/31/2016 NGHIA GUTIERREZ MD Ot I25. 10 ATHSCL HEART DISEASE OF [place] CORONARY 03/31/2016 NGHIA GUTIERREZ MD Ot R07. 89 OTHER CHEST PAIN 04/07/2016 DAVIN DODSON MD Ot E11.9 TYPE 2 DIABETES MELLITUS WITHOUT COMPLIC 04/07/2016 DAVIN DODSON MD Ot H81.12 BENIGN PAROXYSMAL VERTIGO, LEFT EAR 04/07/2016 DAVIN DODSON MD Ot I10 ESSENTIAL (PRIMARY) HYPERTENSION 04/07/2016 DAVIN DODSON MD Ot I25.10 ATHSCL HEART DISEASE OF [place] CORONARY 04/07/2016 DAVIN DODSON MD Ot I51.7 CARDIOMEGALY 04/07/2016 DAVIN DODSON MD Ot I65.23 OCCLUSION AND STENOSIS OF BILATERAL CAT 04/07/2016 DAVIN DODSON MD, Ot J44.9 CHRONIC OBSTRUCTIVE PULMONARY DISEASE, U 04/07/2016 DAVIN DODSON MD Ot M19.011 PRIMARY OSTEOARTHRITIS, RIGHT SHOULDER 04/07/2016 DAVIN DODSON MD Ot M19.012 PRIMARY OSTEOARTHRITIS, LEFT SHOULDER 04/07/2016 DAVIN DODSON MD Ot R11.2 NAUSEA WITH VOMITING, UNSPECIFIED 04/07/2016 DAVIN DODSON MD, Ot R42 DIZZINESS AND GIDDINESS 04/07/2016 DAVIN DODSON MD Ot Z79.02 HALF-WAY (CURRENT) USE OF ANTITHROMBOTI 04/07/2016 DAVIN DODSON MD Ot Z79.4 HALF-WAY (CURRENT) USE OF INSULIN 04/07/2016 DAVIN DODSON MD Ot Z79.84 CHIEF MEDICAL OFFICER (CURRENT) USE OF ORAL HYPOGLYC 04/07/2016 DAVIN DODSON MD Ot Z79.899 OTHER HALF-WAY (CURRENT) DRUG THERAPY 04/08/2016 DAVIN DODSON MD Ot E11.9 TYPE 2 DIABETES MELLITUS WITHOUT COMPLIC 04/08/2016 DAVIN DODSON MD Ot H81.12 BENIGN PAROXYSMAL VERTIGO, LEFT EAR 04/08/2016 DAVIN DODSON MD Ot I10 ESSENTIAL (PRIMARY) HYPERTENSION 04/08/2016 DAVIN DODSON MD Ot I25.10 ATHSCL HEART DISEASE OF [place] CORONARY 04/08/2016 DAVIN DODSON MD Ot I51.7 CARDIOMEGALY 04/08/2016 DAVIN DODSON MD Ot I65.23 OCCLUSION AND STENOSIS OF BILATERAL CAT 04/08/2016 DAVIN DODSON MD Ot J44.9 CHRONIC OBSTRUCTIVE PULMONARY DISEASE, U 04/08/2016 BRUEGGEMANN MD, DAVIN T Ot M19.011 PRIMARY OSTEOARTHRITIS, RIGHT SHOULDER 04/08/2016 DAVIN DODSON MD Ot M19.012 PRIMARY OSTEOARTHRITIS, LEFT SHOULDER 04/08/2016 DAVIN DODSON MD Ot R11.2 NAUSEA WITH VOMITING, UNSPECIFIED 04/08/2016 DAVIN DODSON MD, Ot R42 DIZZINESS AND GIDDINESS 04/08/2016 DAVIN DODSON MD Ot Z79.02 HALF-WAY (CURRENT) USE OF ANTITHROMBOTI 04/08/2016 DAVIN DODSON MD Ot Z79.4 CHIEF MEDICAL OFFICER (CURRENT) USE OF INSULIN 04/08/2016 DAVIN DODSON MD, Ot Z79.84 HALF-WAY (CURRENT) USE OF ORAL HYPOGLYC 04/08/2016 DAVIN DODSON MD, Ot Z79.899 OTHER CHIEF MEDICAL OFFICER (CURRENT) DRUG THERAPY 04/15/2016 NGHIA GUTIERREZ MD Ot E11. 9 TYPE 2 DIABETES MELLITUS WITHOUT COMPLIC 04/15/2016 NGHIA GUTIERREZ MD Ot E78. 2 MIXED HYPERLIPIDEMIA 04/15/2016 NGHIA GUTIERREZ MD, Ot I10 ESSENTIAL (PRIMARY) HYPERTENSION 04/15/2016 NGHIA GUTIERREZ MD Ot I25. 10 ATHSCL HEART DISEASE OF [place] CORONARY 04/15/2016 NGHIA GUTIERREZ MD Ot R07. 89 OTHER CHEST PAIN 04/17/2016 SAM HEALY MD Ot I65. 23 OCCLUSION AND STENOSIS OF BILATERAL CAT 04/17/2016 SAM HEALY MD Ot Z01.810 ENCOUNTER FOR PREPROCEDURAL CARDIOVASCUL 04/17/2016 SAM HEALY MD Ot Z01.811 ENCOUNTER FOR PREPROCEDURAL RESPIRATORY 04/17/2016 SAM HEALY MD Ot Z01.812 ENCOUNTER FOR PREPROCEDURAL LABORATORY E 04/18/2016 NGHIA GUTIERREZ MD Ot E11. 9 TYPE 2 DIABETES MELLITUS WITHOUT COMPLIC 04/18/2016 NGHIA GUTIERREZ MD Ot E78. 2 MIXED HYPERLIPIDEMIA 04/18/2016 NGHIA GUTIERREZ MD Ot I10 ESSENTIAL (PRIMARY) HYPERTENSION 04/18/2016 NGHIA GUTIERREZ MD Ot I25. 10 ATHSCL HEART DISEASE OF [place] CORONARY 04/18/2016 NGHIA GUTIERREZ MD Ot R07. 89 OTHER CHEST PAIN 04/22/2016 SAM HEALY MD Ot I65. 23 OCCLUSION AND STENOSIS OF BILATERAL CAT 04/22/2016 SAM HEALY MD Ot Z01.810 ENCOUNTER FOR PREPROCEDURAL CARDIOVASCUL 04/22/2016 SAM HEALY MD Ot Z01.811 ENCOUNTER FOR PREPROCEDURAL RESPIRATORY 04/22/2016 SAM HEALY MD, Ot Z01.812 ENCOUNTER FOR PREPROCEDURAL LABORATORY E 04/29/2016 NGHIA GUTIERREZ MD Ot E11. 9 TYPE 2 DIABETES MELLITUS WITHOUT COMPLIC 04/29/2016 NGHIA GUTIERREZ MD Ot E78. 2 MIXED HYPERLIPIDEMIA 04/29/2016 NGHIA GUTIERREZ MD Ot I10 ESSENTIAL (PRIMARY) HYPERTENSION 04/29/2016 NGHIA GUTIERREZ MD Ot I25. 10 ATHSCL HEART DISEASE OF [place] CORONARY 04/29/2016 NGHIA GUTIERREZ MD Ot R07. 89 OTHER CHEST PAIN 05/09/2016 SAM HEALY MD Ot I65. 23 OCCLUSION AND STENOSIS OF BILATERAL CAT 05/09/2016 SAM HEALY MD Ot Z01.810 ENCOUNTER FOR PREPROCEDURAL CARDIOVASCUL 05/09/2016 SAM HEALY MD Ot Z01.811 ENCOUNTER FOR PREPROCEDURAL RESPIRATORY 05/09/2016 SAM HEALY MD Ot Z01.812 ENCOUNTER FOR PREPROCEDURAL LABORATORY E 05/13/2016 SAM HEALY MD Ot I65. 23 OCCLUSION AND STENOSIS OF BILATERAL CAT 05/13/2016 SAM HEALY MD Ot Z01.810 ENCOUNTER FOR PREPROCEDURAL CARDIOVASCUL 05/13/2016 SAM HEALY MD Ot Z01.811 ENCOUNTER FOR PREPROCEDURAL RESPIRATORY 05/13/2016 SAM HEALY MD Ot Z01.812 ENCOUNTER FOR PREPROCEDURAL LABORATORY E 05/15/2016 WHIT ARRINGTON MD Ot B00.2 HERPESVIRAL GINGIVOSTOMATITIS AND PHARYN 05/15/2016 WHIT ARRINGTON MD Ot E03.9 HYPOTHYROIDISM, UNSPECIFIED 05/15/2016 WHIT ARRINGTON MD Ot E11.4 2 TYPE 2 DIABETES MELLITUS WITH DIABETIC P 05/15/2016 WHIT ARRINGTON MD E Ot E66.9 OBESITY, UNSPECIFIED 05/15/2016 WHIT ARRINGTON MD E Ot E87.7 0 FLUID OVERLOAD, UNSPECIFIED 05/15/2016 WHIT ARRINGTON MD E Ot G47.0 0 INSOMNIA, UNSPECIFIED 05/15/2016 WHIT ARRINGTON MD E Ot I10 ESSENTIAL (PRIMARY) HYPERTENSION 05/15/2016 WHIT ARRINGTON MD Ot I25.1 0 ATHSCL HEART DISEASE OF [place] CORONARY 05/15/2016 WHIT ARRINGTON MD Ot I42.9 CARDIOMYOPATHY, UNSPECIFIED 05/15/2016 WHIT ARRINGTON MD E Ot J18.9 PNEUMONIA, UNSPECIFIED ORGANISM 05/15/2016 WHIT ARRINGTON MD Ot J44.9 CHRONIC OBSTRUCTIVE PULMONARY DISEASE, U 05/15/2016 WHIT ARRINGTON MD Ot K21.9 GASTRO-ESOPHAGEAL REFLUX DISEASE WITHOUT 05/15/2016 WHIT ARRINGTON MD E Ot K59.0 0 CONSTIPATION, UNSPECIFIED 05/15/2016 WHIT ARRINGTON MD Ot N28.9 DISORDER OF KIDNEY AND URETER, UNSPECIFI 05/15/2016 WHIT ARRINGTON MD E Ot N39.0 URINARY TRACT INFECTION, SITE NOT SPECIF 05/15/2016 WHIT ARRINGTON MD E Ot R06.8 9 OTHER ABNORMALITIES OF BREATHING 05/15/2016 WHIT ARRINGTON MD E Ot R47.1 DYSARTHRIA AND ANARTHRIA 05/15/2016 WHIT ARRINGTON MD E Ot Z48.8 12 ENCNTR FOR SURGICAL AFTCR FOLLOWING SURG 05/15/2016 WHIT ARRINGTON MD Ot Z68.4 1 BODY MASS INDEX (BMI) 40.0-44.9, ADULT 05/15/2016 WHIT ARRINGTON MD E Ot Z79.4 CHIEF MEDICAL OFFICER (CURRENT) USE OF INSULIN 05/15/2016 WHIT ARRINGTON MD E Ot Z95.5 PRESENCE OF CORONARY ANGIOPLASTY IMPLANT 05/15/2016 WHIT ARRINGTON MD Ot Z96.6 53 PRESENCE OF ARTIFICIAL KNEE JOINT, BILAT 06/18/2016 KIYA HERMAN MD R Ot J18. 9 PNEUMONIA, UNSPECIFIED ORGANISM 06/27/2016 KIYA HERMAN MD R Ot J18. 9 PNEUMONIA, UNSPECIFIED ORGANISM 07/01/2016 LEANNA BROOKE MD Ot Z12.3 1 ENCNTR SCREEN MAMMOGRAM FOR MALIGNANT NE 07/01/2016 LEANNA BROOKE MD Ot Z12.3 1 ENCNTR SCREEN MAMMOGRAM FOR MALIGNANT NE 07/01/2016 LEANNA BROOKE MD Ot Z12.3 1 ENCNTR SCREEN MAMMOGRAM FOR MALIGNANT NE 07/23/2016 LEANNA BROOKE MD Ot Z12.3 1 ENCNTR SCREEN MAMMOGRAM FOR MALIGNANT NE 10/15/2016 NGHIA GUTIERREZ MD Ot G47. 33 OBSTRUCTIVE SLEEP APNEA (ADULT) (PEDIATR 10/15/2016 NGHIA GUTIERREZ MD Ot I10 ESSENTIAL (PRIMARY) HYPERTENSION 10/15/2016 NGHIA GUTIERREZ MD Ot J98. 4 OTHER DISORDERS OF LUNG 10/15/2016 NGHIA GUTIERREZ MD Ot R06. 02 SHORTNESS OF BREATH 10/15/2016 NGHIA GUTIERREZ MD Ot R07. 9 CHEST PAIN, UNSPECIFIED 10/16/2016 NGHIA GUTIERREZ MD Ot G47. 33 OBSTRUCTIVE SLEEP APNEA (ADULT) (PEDIATR 10/16/2016 NGHIA GUTIERREZ MD Ot I10 ESSENTIAL (PRIMARY) HYPERTENSION 10/16/2016 NGHIA GUTIERREZ MD Ot J98. 4 OTHER DISORDERS OF LUNG 10/16/2016 NGHIA GUTIERREZ MD Ot R06. 02 SHORTNESS OF BREATH 10/16/2016 NGHIA GUTIERREZ MD Ot R07. 9 CHEST PAIN, UNSPECIFIED 11/05/2016 KIYA HERMAN MD R Ot R10. 2 PELVIC AND PERINEAL PAIN 11/12/2016 KIYA HERMAN MD R Ot R10. 2 PELVIC AND PERINEAL PAIN 12/09/2016 KIYA HERMAN MD R Ot I51. 7 CARDIOMEGALY 12/09/2016 KIYA HERMAN MD R Ot R07. 81 PLEURODYNIA 12/09/2016 KIYA HERMAN MD R Ot R93. 8 ABNORMAL FINDINGS ON DIAGNOSTIC IMAGING 12/12/2016 KIYA HERMAN MD R Ot I51. 7 CARDIOMEGALY 12/12/2016 KIYA HERMAN MD R Ot R07. 81 PLEURODYNIA 12/12/2016 KIYA HERMAN MD R Ot R93. 8 ABNORMAL FINDINGS ON DIAGNOSTIC IMAGING 06/17/2017 Ot V76.12 OTH SCREEN MAMMO- MALIGN NEOPLASM OF [place] 06/17/2017 Ot 571.8 CALF SKINNER JOAQUINA LIVER DIS NEC 06/17/2017 Ot 789.09 ABD OMINAL PAIN, OTHER SPECIFIED SITE 06/17/2017 Justyn MORRISSEY MD Ot 595.2 CHRONIC CYSTITIS NEC 06/17/2017 Justyn MORRISSEY MD Ot 599.0 URIN TRACT INFECTION NOS 06/17/2017 Justyn MORRISESY MD Ot 595.9 CYSTITIS NOS 06/17/2017 MARY LARKIN, MARQUITA Ot V72.84 EXAM PRE-OPERATIVE NOS 06/17/2017 BATSHEVA LARKIN, KIYA R Ot 368. 9 VISUAL DISTURBANCE NOS 06/17/2017 BATSHEVA LARKIN, KIYA R Ot 784. 0 HEADACHE 06/17/2017 Ot 285.9 ANEM IA NOS 06/17/2017 Ot 780.79 OTH MALAISE FATIGUE 06/17/2017 LEANNA BROOKE MD Ot V76.1 2 OTH SCREEN MAMMO-MALIGN NEOPLASM OF [place] 06/17/2017 LEANNA BROOKE MD Ot V76.1 2 OTH SCREEN MAMMO-MALIGN NEOPLASM OF [place] 06/17/2017 KIYA HERMAN MD R Ot 599. 0 URIN TRACT INFECTION NOS 06/17/2017 KIYA HERMAN MD R Ot 786. 2 COUGH 06/17/2017 BATSHEVA LARKIN, KIYA R Ot 786. 50 CHEST PAIN NOS 06/17/2017 HERNANDEZ HERMAN MDYD R Ot 784. 0 HEADACHE 06/17/2017 NWAGWU, ISIDORE O PLUMBING ASSEMBLER INSTALLER Ot 250.00 DIAB JOSE WO COMPL, TYPE II OR UNSPEC TY 06/17/2017 NWAGWU, ISIDORE O PLUMBING ASSEMBLER INSTALLER Ot 401.9 HYPERTENSION NOS 06/17/2017 NWMARCO ANTONIOWSerene, ISIDORE O PLUMBING ASSEMBLER INSTALLER Ot 443.9 PERIPH VASCULAR DIS NOS 06/17/2017 LARRY MURILLO DO Ot E03. 9 HYPOTHYROIDISM, UNSPECIFIED 06/17/2017 LARRY MURILLO DO Ot E11. 9 TYPE 2 DIABETES MELLITUS WITHOUT COMPLIC 06/17/2017 LARRY MURILLO DO Ot E66. 9 OBESITY, UNSPECIFIED 06/17/2017 LARRY MURILLO DO Ot I10 ESSENTIAL (PRIMARY) HYPERTENSION 06/17/2017 LARRY MURILLO DO Ot J45.998 OTHER ASTHMA 06/17/2017 LARRY MURILLO DO Ot E03. 9 HYPOTHYROIDISM, UNSPECIFIED 06/17/2017 LARRY MURILLO DO Ot E11. 9 TYPE 2 DIABETES MELLITUS WITHOUT COMPLIC 06/17/2017 LARRY MURILLO DO Ot E66. 9 OBESITY, UNSPECIFIED 06/17/2017 CHIDI RUCKER LARRY M Ot I10 ESSENTIAL (PRIMARY) HYPERTENSION 06/17/2017 CHIDI RUCKER LARRY Jose Ot J45.998 OTHER ASTHMA 06/17/2017 BATSHEVA LARKIN, KIYA R Ot K76. 0 FATTY (CHANGE OF) LIVER, NOT ELSEWHERE C 06/17/2017 MENDY LARKIN, LEANNA Alejandra Ot Z12.3 1 ENCNTR SCREEN MAMMOGRAM FOR MALIGNANT NE 06/17/2017 NADJA LARKIN, MARCELO Alejandra Ot M47.8 96 OTHER SPONDYLOSIS, LUMBAR REGION 06/17/2017 NGHIA GUTIERREZ MD Ot G47. 33 OBSTRUCTIVE SLEEP APNEA (ADULT) (PEDIATR 06/17/2017 NGHIA GUTIERREZ MD Ot I10 ESSENTIAL (PRIMARY) HYPERTENSION 06/17/2017 NGHIA GUTIERREZ MD Ot J98. 4 OTHER DISORDERS OF LUNG 06/17/2017 NGHIA GUTIERREZ MD Ot R06. 02 SHORTNESS OF BREATH 06/17/2017 NGHIA GUTIERREZ MD Ot R07. 9 CHEST PAIN, UNSPECIFIED 06/17/2017 NGHIA GUTIERREZ MD Ot G47. 33 OBSTRUCTIVE SLEEP APNEA (ADULT) (PEDIATR 06/17/2017 NGHIA GUTIERREZ MD Ot I10 ESSENTIAL (PRIMARY) HYPERTENSION 06/17/2017 NGHIA GUTIERREZ MD J Ot J98. 4 OTHER DISORDERS OF LUNG 06/17/2017 NGHIA GUTIERREZ MD Ot R06. 02 SHORTNESS OF BREATH 06/17/2017 NGHIA GUTIERREZ MD Ot R07. 9 CHEST PAIN, UNSPECIFIED 06/17/2017 MARIPOSA SANCHEZ APRN Ot J45.909 UNSPECIFIED ASTHMA, UNCOMPLICATED 06/17/2017 MARIPOSA SANCHEZ PLUMBING ASSEMBLER INSTALLER Ot J98.4 OTHER DISORDERS OF LUNG 06/17/2017 MARIPOSA SANCHEZ PLUMBING ASSEMBLER INSTALLER Ot R06.02 SHORTNESS OF BREATH 06/17/2017 BATSHEVA LARKIN, KIYA R Ot D64. 9 ANEMIA, UNSPECIFIED 06/17/2017 NGHIA GUTIERREZ MD Ot E11. 9 TYPE 2 DIABETES MELLITUS WITHOUT COMPLIC 06/17/2017 NGHIA GUTIERREZ MD Ot E78. 2 MIXED HYPERLIPIDEMIA 06/17/2017 NGHIA GUTIERREZ MD Ot I10 ESSENTIAL (PRIMARY) HYPERTENSION 06/17/2017 NGHIA GUTIERREZ MD Ot I25. 10 ATHSCL HEART DISEASE OF [place] CORONARY 06/17/2017 NGHIA GUTIERREZ MD Ot R07. 89 OTHER CHEST PAIN 06/17/2017 NGHIA GUTIERREZ MD Ot E11. 9 TYPE 2 DIABETES MELLITUS WITHOUT COMPLIC 06/17/2017 NGHIA GUTIERREZ MD Ot E78. 2 MIXED HYPERLIPIDEMIA 06/17/2017 NGHIA GUTIERREZ MD Ot I10 ESSENTIAL (PRIMARY) HYPERTENSION 06/17/2017 NGHIA GUTIERREZ MD Ot I25. 10 ATHSCL HEART DISEASE OF [place] CORONARY 06/17/2017 NGHIA GUTIERREZ MD Ot R07. 89 OTHER CHEST PAIN 06/17/2017 SAM HEALY MD Ot I65. 23 OCCLUSION AND STENOSIS OF BILATERAL CAT 06/17/2017 SAM HEALY MD Ot Z01.810 ENCOUNTER FOR PREPROCEDURAL CARDIOVASCUL 06/17/2017 SAM HEALY MD, Ot Z01.811 ENCOUNTER FOR PREPROCEDURAL RESPIRATORY 06/17/2017 SAM HEALY MD Ot Z01.812 ENCOUNTER FOR PREPROCEDURAL LABORATORY E 06/17/2017 KYIA HERMAN MD Ot J18. 9 PNEUMONIA, UNSPECIFIED ORGANISM 06/17/2017 MENDY LARKIN, LEANNA Alejandra Ot Z12.3 1 ENCNTR SCREEN MAMMOGRAM FOR MALIGNANT NE 06/17/2017 KIYA HERMAN MD R Ot R10. 2 PELVIC AND PERINEAL PAIN 06/17/2017 KIYA HERMAN MD Ot I51. 7 CARDIOMEGALY 06/17/2017 KIYA HERMAN MD Ot R07. 81 PLEURODYNIA 06/17/2017 KIYA HERMAN MD Ot R93. 8 ABNORMAL FINDINGS ON DIAGNOSTIC IMAGING 06/17/2017 KIYA HERMAN MD R Ot M79.662 PAIN IN LEFT LOWER LEG 06/18/2017 KIYA HERMAN MD R Ot M79.662 PAIN IN LEFT LOWER LEG 06/18/2017 Ot V76.12 OTH SCREEN MAMMO- MALIGN NEOPLASM OF [place] 06/18/2017 Ot 571.8 CALF SKINNER JOAQUINA LIVER DIS NEC 06/18/2017 Ot 789.09 ABD OMINAL PAIN, OTHER SPECIFIED SITE 06/18/2017 Justyn MORRISSEY MD Ot 595.2 CHRONIC CYSTITIS NEC 06/18/2017 Justyn MORRISSEY MD Ot 599.0 URIN TRACT INFECTION NOS 06/18/2017 Justyn MORRISSEY MD Ot 595.9 CYSTITIS NOS 06/18/2017 MARY LARKIN, [facility]ALTHCAREELICEO Ot V72.84 EXAM PRE-OPERATIVE NOS 06/18/2017 BATSHEVA LARKIN, KIYA R Ot 368. 9 VISUAL DISTURBANCE NOS 06/18/2017 KIYA HERMAN MD R Ot 784. 0 HEADACHE 06/18/2017 Ot 285.9 ANEM IA NOS 06/18/2017 Ot 780.79 OTH MALAISE FATIGUE 06/18/2017 LEANNA BROOKE MD Ot V76.1 2 OTH SCREEN MAMMO-MALIGN NEOPLASM OF [place] 06/18/2017 LEANNA BROOKE MD Ot V76.1 2 OTH SCREEN MAMMO-MALIGN NEOPLASM OF [place] 06/18/2017 KIYA HERMAN MD R Ot 599. 0 URIN TRACT INFECTION NOS 06/18/2017 BATSHEVA LARKIN KIYA R Ot 786. 2 COUGH 06/18/2017 BATSHEVA LARKIN KIYA R Ot 786. 50 CHEST PAIN NOS 06/18/2017 BATSHEVA LARKIN KIYA R Ot 784. 0 HEADACHE 06/18/2017 NWAGWU, ISIDORE O PLUMBING ASSEMBLER INSTALLER Ot 250.00 DIAB JOSE WO COMPL, TYPE II OR UNSPEC TY 06/18/2017 NWAGWU, ISIDORE O PLUMBING ASSEMBLER INSTALLER Ot 401.9 HYPERTENSION NOS 06/18/2017 NWMARCO ANTONIOWU, ISIDORE O PLUMBING ASSEMBLER INSTALLER Ot 443.9 PERIPH VASCULAR DIS NOS 06/18/2017 LARRY MURILLO DO Ot E03. 9 HYPOTHYROIDISM, UNSPECIFIED 06/18/2017 LARRY MURILLO DO Ot E11. 9 TYPE 2 DIABETES MELLITUS WITHOUT COMPLIC 06/18/2017 LARRY MURILLO DO Ot E66. 9 OBESITY, UNSPECIFIED 06/18/2017 LARRY MURILLO DO Ot I10 ESSENTIAL (PRIMARY) HYPERTENSION 06/18/2017 LARRY MURILLO DO Ot J45.998 OTHER ASTHMA 06/18/2017 LARRY MURILLO DO Ot E03. 9 HYPOTHYROIDISM, UNSPECIFIED 06/18/2017 LARRY MURILLO DO Ot E11. 9 TYPE 2 DIABETES MELLITUS WITHOUT COMPLIC 06/18/2017 LARRY MURILLO DO Ot E66. 9 OBESITY, UNSPECIFIED 06/18/2017 LARRY MURILLO DO Ot I10 ESSENTIAL (PRIMARY) HYPERTENSION 06/18/2017 LARRY MURILLO DO Ot J45.998 OTHER ASTHMA 06/18/2017 BATSHEVA LARKIN, KIYA R Ot K76. 0 FATTY (CHANGE OF) LIVER, NOT ELSEWHERE C 06/18/2017 MENDY LARKIN, LEANNA Alejandra Ot Z12.3 1 ENCNTR SCREEN MAMMOGRAM FOR MALIGNANT NE 06/18/2017 NADJA LARKIN, MARCELO Alejandra Ot M47.8 96 OTHER SPONDYLOSIS, LUMBAR REGION 06/18/2017 NGHIA GUTIERREZ MD Ot G47. 33 OBSTRUCTIVE SLEEP APNEA (ADULT) (PEDIATR 06/18/2017 NGHIA GUTIERREZ MD Ot I10 ESSENTIAL (PRIMARY) HYPERTENSION 06/18/2017 NGHIA GUTIERREZ MD Ot J98. 4 OTHER DISORDERS OF LUNG 06/18/2017 NGHIA GUTIERREZ MD Ot R06. 02 SHORTNESS OF BREATH 06/18/2017 NGHIA GUTIERREZ MD Ot R07. 9 CHEST PAIN, UNSPECIFIED 06/18/2017 NGHIA GUTIERREZ MD Ot G47. 33 OBSTRUCTIVE SLEEP APNEA (ADULT) (PEDIATR 06/18/2017 NGHIA GUTIERREZ MD Ot I10 ESSENTIAL (PRIMARY) HYPERTENSION 06/18/2017 NGHIA GUTIERREZ MD Ot J98. 4 OTHER DISORDERS OF LUNG 06/18/2017 NGHIA GUTIERREZ MD Ot R06. 02 SHORTNESS OF BREATH 06/18/2017 NGHIA GUTIERREZ MD Ot R07. 9 CHEST PAIN, UNSPECIFIED 06/18/2017 MARIPOSA SANCHEZ APRN Ot J45.909 UNSPECIFIED ASTHMA, UNCOMPLICATED 06/18/2017 MARIPOSA SANCHEZ PLUMBING ASSEMBLER INSTALLER Ot J98.4 OTHER DISORDERS OF LUNG 06/18/2017 MARIPOSA SANCHEZ APRN Ot R06.02 SHORTNESS OF BREATH 06/18/2017 KIYA HERMAN MD Ot D64. 9 ANEMIA, UNSPECIFIED 06/18/2017 NGHIA GUTIERREZ MD Ot E11. 9 TYPE 2 DIABETES MELLITUS WITHOUT COMPLIC 06/18/2017 NGHIA GUTIERREZ MD Ot E78. 2 MIXED HYPERLIPIDEMIA 06/18/2017 NGHIA GUTIERREZ MD Ot I10 ESSENTIAL (PRIMARY) HYPERTENSION 06/18/2017 NGHIA GUTIERREZ MD Ot I25. 10 ATHSCL HEART DISEASE OF [place] CORONARY 06/18/2017 NGHIA GUTIERREZ MD Ot R07. 89 OTHER CHEST PAIN 06/18/2017 NGHIA GUTIERREZ MD Ot E11. 9 TYPE 2 DIABETES MELLITUS WITHOUT COMPLIC 06/18/2017 NGHIA GUTIERREZ MD Ot E78. 2 MIXED HYPERLIPIDEMIA 06/18/2017 NGHIA GUTIERREZ MD, Ot I10 ESSENTIAL (PRIMARY) HYPERTENSION 06/18/2017 NGHIA GUTIERREZ MD Ot I25. 10 ATHSCL HEART DISEASE OF [place] CORONARY 06/18/2017 NGHIA GUTIERREZ MD Ot R07. 89 OTHER CHEST PAIN 06/18/2017 SAM HEALY MD Ot I65. 23 OCCLUSION AND STENOSIS OF BILATERAL CAT 06/18/2017 SAM HEALY MD Ot Z01.810 ENCOUNTER FOR PREPROCEDURAL CARDIOVASCUL 06/18/2017 SAM HEALY MD Ot Z01.811 ENCOUNTER FOR PREPROCEDURAL RESPIRATORY 06/18/2017 SAM HEALY MD, Ot Z01.812 ENCOUNTER FOR PREPROCEDURAL LABORATORY E 06/18/2017 KIYA HERMAN MD Ot J18. 9 PNEUMONIA, UNSPECIFIED ORGANISM 06/18/2017 LEANNA BROOKE MD Ot Z12.3 1 ENCNTR SCREEN MAMMOGRAM FOR MALIGNANT NE 06/18/2017 KIYA HERMAN MD Ot R10. 2 PELVIC AND PERINEAL PAIN 06/18/2017 KIYA HERMAN MD Ot I51. 7 CARDIOMEGALY 06/18/2017 KIYA HERMAN MD Ot R07. 81 PLEURODYNIA 06/18/2017 KIYA HERMAN MD Ot R93. 8 ABNORMAL FINDINGS ON DIAGNOSTIC IMAGING 06/18/2017 KIYA HERMAN MD Ot M79.662 PAIN IN LEFT LOWER LEG 06/19/2017 Ot V76.12 OTH SCREEN MAMMO- MALIGN NEOPLASM OF [place] 06/19/2017 Ot 571.8 CALF SKINNER JOAQUINA LIVER DIS NEC 06/19/2017 Ot 789.09 ABD OMINAL PAIN, OTHER SPECIFIED SITE 06/19/2017 GHANSHYAM LARKIN, Justyn BADILLO Ot 595.2 CHRONIC CYSTITIS NEC 06/19/2017 GHANSHYAM LARKIN, Justyn BADILLO Ot 599.0 URIN TRACT INFECTION NOS 06/19/2017 GHANSHYAM LARKIN, Justyn BADILLO Ot 595.9 CYSTITIS NOS 06/19/2017 MARY LARKIN, [facility] Ot V72.84 EXAM PRE-OPERATIVE NOS 06/19/2017 BATSHEVA LARKIN, KIYA R Ot 368. 9 VISUAL DISTURBANCE NOS 06/19/2017 BATSHEVA LARKIN, KIYA R Ot 784. 0 HEADACHE 06/19/2017 Ot 285.9 ANEM IA NOS 06/19/2017 Ot 780.79 OTH MALAISE FATIGUE 06/19/2017 LEANNA BROOKE MD Ot V76.1 2 OTH SCREEN MAMMO-MALIGN NEOPLASM OF [place] 06/19/2017 LEANNA BROOKE MD Ot V76.1 2 OTH SCREEN MAMMO-MALIGN NEOPLASM OF [place] 06/19/2017 BATSHEVA LARKIN, KIYA R Ot 599. 0 URIN TRACT INFECTION NOS 06/19/2017 BATSHEVA LARKIN, KIYA R Ot 786. 2 COUGH 06/19/2017 BATSHEVA LARKIN, KIYA R Ot 786. 50 CHEST PAIN NOS 06/19/2017 BATSHEVA LARKIN KIYA R Ot 784. 0 HEADACHE 06/19/2017 NWAGWU, ISIDORE O [employer]SEM[employer]ER INSTALLER Ot 250.00 DIAB JOSE WO COMPL, TYPE II OR UNSPEC TY 06/19/2017 NWAGWU, ISIDORE O [employer]ER INSTALLER Ot 401.9 HYPERTENSION NOS 06/19/2017 NWAGWU, ISIDORE O [employer] INSTALLER Ot 443.9 PERIPH VASCULAR DIS NOS 06/19/2017 LARRY MURILLO DO Ot E03. 9 HYPOTHYROIDISM, UNSPECIFIED 06/19/2017 LARRY MURILLO DO Ot E11. 9 TYPE 2 DIABETES MELLITUS WITHOUT COMPLIC 06/19/2017 LARRY MURILLO DO Ot E66. 9 OBESITY, UNSPECIFIED 06/19/2017 LARRY MURILLO DO Ot I10 ESSENTIAL (PRIMARY) HYPERTENSION 06/19/2017 CHIDI RUCKER LARRY Jose Ot J45.998 OTHER ASTHMA 06/19/2017 CHIDILARRY BURNETT DO Ot E03. 9 HYPOTHYROIDISM, UNSPECIFIED 06/19/2017 CHIDI LARRY Jose Ot E11. 9 TYPE 2 DIABETES MELLITUS WITHOUT COMPLIC 06/19/2017 CHIDI LARRY Jose Ot E66. 9 OBESITY, UNSPECIFIED 06/19/2017 CHIDI LARRY Jose Ot I10 ESSENTIAL (PRIMARY) HYPERTENSION 06/19/2017 CHIDI RUCKER LARRY Jose Ot J45.998 OTHER ASTHMA 06/19/2017 BATSHEVA LARKIN, KIYA R Ot K76. 0 FATTY (CHANGE OF) LIVER, NOT ELSEWHERE C 06/19/2017 MENDY LARKIN, LEANNA Alejandra Ot Z12.3 1 ENCNTR SCREEN MAMMOGRAM FOR MALIGNANT NE 06/19/2017 NADJA LARKIN, MARCELO Alejandra Ot M47.8 96 OTHER SPONDYLOSIS, LUMBAR REGION 06/19/2017 NGHIA GUTIERREZ MD Ot G47. 33 OBSTRUCTIVE SLEEP APNEA (ADULT) (PEDIATR 06/19/2017 NGHIA GUTIERREZ MD Ot I10 ESSENTIAL (PRIMARY) HYPERTENSION 06/19/2017 NGHIA GUTIERREZ MD Ot J98. 4 OTHER DISORDERS OF LUNG 06/19/2017 NGHIA GUTIERREZ MD Ot R06. 02 SHORTNESS OF BREATH 06/19/2017 NGHIA GUTIERREZ MD Ot R07. 9 CHEST PAIN, UNSPECIFIED 06/19/2017 NGHIA GUTIERREZ MD Ot G47. 33 OBSTRUCTIVE SLEEP APNEA (ADULT) (PEDIATR 06/19/2017 NGHIA GUTIERREZ MD Ot I10 ESSENTIAL (PRIMARY) HYPERTENSION 06/19/2017 NGHIA GUTIERREZ MD Ot J98. 4 OTHER DISORDERS OF LUNG 06/19/2017 NGHIA GUTIERREZ MD Ot R06. 02 SHORTNESS OF BREATH 06/19/2017 NGHIA GUTIERREZ MD Ot R07. 9 CHEST PAIN, UNSPECIFIED 06/19/2017 MARIPOSA SANCHEZ APRN Ot J45.909 UNSPECIFIED ASTHMA, UNCOMPLICATED 06/19/2017 MARIPOSA SANCHEZ PLUM[employer]SEM[employer]ER INSTALLER Ot J98.4 OTHER DISORDERS OF LUNG 06/19/2017 MARIPOSA SANCHEZ APRN Ot R06.02 SHORTNESS OF BREATH 06/19/2017 KIYA HERMAN MD Ot D64. 9 ANEMIA, UNSPECIFIED 06/19/2017 NGHIA GUTIERREZ MD Ot E11. 9 TYPE 2 DIABETES MELLITUS WITHOUT COMPLIC 06/19/2017 NGHIA GUTIERREZ MD Ot E78. 2 MIXED HYPERLIPIDEMIA 06/19/2017 NGHIA GUTIERREZ MD Ot I10 ESSENTIAL (PRIMARY) HYPERTENSION 06/19/2017 NGHIA GUTIERREZ MD Ot I25. 10 ATHSCL HEART DISEASE OF [place] CORONARY 06/19/2017 NGHIA GUTIERREZ MD Ot R07. 89 OTHER CHEST PAIN 06/19/2017 NGHIA GUTIERREZ MD Ot E11. 9 TYPE 2 DIABETES MELLITUS WITHOUT COMPLIC 06/19/2017 NGHIA GUTIERREZ MD Ot E78. 2 MIXED HYPERLIPIDEMIA 06/19/2017 NGHIA GUTIERREZ MD Ot I10 ESSENTIAL (PRIMARY) HYPERTENSION 06/19/2017 NGHIA GUTIERREZ MD Ot I25. 10 ATHSCL HEART DISEASE OF [place] CORONARY 06/19/2017 NGHIA GUTIERREZ MD Ot R07. 89 OTHER CHEST PAIN 06/19/2017 SAM HEALY MD Ot I65. 23 OCCLUSION AND STENOSIS OF BILATERAL CAT 06/19/2017 SAM HEALY MD Ot Z01.810 ENCOUNTER FOR PREPROCEDURAL CARDIOVASCUL 06/19/2017 SAM HEALY MD Ot Z01.811 ENCOUNTER FOR PREPROCEDURAL RESPIRATORY 06/19/2017 SAM HEALY MD, Ot Z01.812 ENCOUNTER FOR PREPROCEDURAL LABORATORY E 06/19/2017 KIYA HERMAN MD Ot J18. 9 PNEUMONIA, UNSPECIFIED ORGANISM 06/19/2017 LEANNA BROOKE MD Ot Z12.3 1 ENCNTR SCREEN MAMMOGRAM FOR MALIGNANT NE 06/19/2017 KIYA HERMAN MD Ot R10. 2 PELVIC AND PERINEAL PAIN 06/19/2017 KIYA HERMAN MD Ot I51. 7 CARDIOMEGALY 06/19/2017 KIYA HERMAN MD Ot R07. 81 PLEURODYNIA 06/19/2017 KIYA HERMAN MD Ot R93. 8 ABNORMAL FINDINGS ON DIAGNOSTIC IMAGING 06/19/2017 KIYA HERMAN MD Ot M79.662 PAIN IN LEFT LOWER LEG 06/22/2017 KIYA HERMAN MD R Ot M79. 89 OTHER SPECIFIED SOFT TISSUE DISORDERS 06/22/2017 KIYA HERMAN MD R Ot M79. 89 OTHER SPECIFIED SOFT TISSUE DISORDERS 06/25/2017 KIYA HERMAN MD R Ot M79. 89 OTHER SPECIFIED SOFT TISSUE DISORDERS 07/10/2017 KIYA HERMAN MD R Ot M79. 89 OTHER SPECIFIED SOFT TISSUE DISORDERS 07/15/2017 KIYA HERMAN MD R Ot M79. 89 OTHER SPECIFIED SOFT TISSUE DISORDERS 07/16/2017 KIYA HERMAN MD R Ot Z29. 8 ENCOUNTER FOR OTHER SPECIFIED PROPHYLACT 08/12/2017 KIYA HERMAN MD R Ot Z29. 8 ENCOUNTER FOR OTHER SPECIFIED PROPHYLACT 09/16/2017 KIYA HERMAN MD Ot Z29. 8 ENCOUNTER FOR OTHER SPECIFIED PROPHYLACT 10/13/2017 Ot E03.9 HYPO THYROIDISM, UNSPECIFIED 10/13/2017 Ot E11.9 TYPE 2 DIABETES MELLITUS WITHOUT COMPLIC 10/13/2017 Ot E78.00 PUR E HYPERCHOLESTEROLEMIA, UNSPECIFIED 10/13/2017 Ot F32.9 RITA R DEPRESSIVE DISORDER, SINGLE EPISOD 10/13/2017 Ot F41.9 ANXI ETY DISORDER, UNSPECIFIED 10/13/2017 Ot G47.30 SLE EP APNEA, UNSPECIFIED 10/13/2017 Ot I10 ESSENT IAL (PRIMARY) HYPERTENSION 10/13/2017 Ot I25.10 ATH SCL HEART DISEASE OF [place] CORONARY 10/13/2017 Ot I42.9 CARD IOMYOPATHY, UNSPECIFIED 10/13/2017 Ot J44.1 CALF SKINNER JOAQUINA OBSTRUCTIVE PULMONARY DISEASE W 10/13/2017 Ot R40.2142 C JAMISON SCALE, EYES OPEN, SPONTANEOUS, EMR 10/13/2017 Ot R40.2252 C JAMISON SCALE, BEST VERBAL RESPONSE, ORIENT 10/13/2017 Ot R40.2362 C JAMISON SCALE, BEST MOTOR RESPONSE, OBEYS C 10/13/2017 Ot S09.90XA U NSPECIFIED INJURY OF HEAD, INITIAL ENCO 10/13/2017 Ot S70.02XA C ONTUSION OF LEFT HIP, INITIAL ENCOUNTER 10/13/2017 Ot W01.198A F ALL SAME LEV FROM SLIP/TRIP W STRIKE AG 10/13/[address] IN UNSP NON-INSTITUT (PRIVATE 10/13/2017 Ot Z79.02 TIFFANI G TERM (CURRENT) USE OF ANTITHROMBOTI 10/13/2017 Ot Z79.4 CHIEF MEDICAL OFFICER (CURRENT) USE OF INSULIN 10/13/2017 Ot Z79.51 TIFFANI G TERM (CURRENT) USE OF INHALED STERO 10/13/2017 Ot Z79.82 TIFFANI G TERM (CURRENT) USE OF ASPIRIN 10/13/2017 Ot Z82.49 FAM CHANA HX OF ISCHEM HEART DIS AND OTH DI 10/13/2017 Ot Z87.440 PE RSONAL HISTORY OF URINARY (TRACT) INFE 10/13/2017 Ot 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 10/13/2017 Ot Z88.0 JANICE RGY STATUS TO PENICILLIN 10/13/2017 Ot Z88.5 JANICE RGY STATUS TO NARCOTIC AGENT STATUS 10/13/2017 Ot Z88.8 JANICE RGY STATUS TO OTH DRUG/MEDS/BIOL SUB 10/13/2017 Ot Z90.89 ACQ UIRED ABSENCE OF OTHER ORGANS 10/13/2017 Ot Z95.5 PRES ENCE OF CORONARY ANGIOPLASTY IMPLANT 10/27/2017 Ot I82.432 AC SENE[place] EMBOLISM AND THROMBOSIS OF LEFT PO 10/27/2017 Ot R00.2 PALP ITATIONS 10/29/2017 MAGDY ZIEGLER APRN Ot E03 .9 HYPOTHYROIDISM, UNSPECIFIED 10/29/2017 MAGDY ZIEGLER APRN Ot E11 .9 TYPE 2 DIABETES MELLITUS WITHOUT COMPLIC 10/29/2017 MAGDY ZIEGLER APRN Ot E78.00 PURE HYPERCHOLESTEROLEMIA, UNSPECIFIED 10/29/2017 MAGDY ZIEGLER APRN Ot F32 .9 MAJOR DEPRESSIVE DISORDER, SINGLE EPISOD 10/29/2017 MAGDY ZIEGLER APRN Ot F41 .9 ANXIETY DISORDER, UNSPECIFIED 10/29/2017 MAGDY ZIEGLER APRN Ot G47.30 SLEEP APNEA, UNSPECIFIED 10/29/2017 MAGDY ZIEGLER APRN Ot I10 ESSENTIAL (PRIMARY) HYPERTENSION 10/29/2017 MAGDY ZIEGLER APRN Ot I25.10 ATHSCL HEART DISEASE OF [place] CORONARY 10/29/2017 MAGDY ZIEGLER APRN Ot I42 .9 CARDIOMYOPATHY, UNSPECIFIED 10/29/2017 MAGDY ZIEGLER APRN Ot J44 .9 CHRONIC OBSTRUCTIVE PULMONARY DISEASE, U 10/29/2017 MAGDY ZIEGLER APRN Ot R10.13 EPIGASTRIC PAIN 10/29/2017 MAGDY ZIEGLER APRN Ot Z79.02 CHIEF MEDICAL OFFICER (CURRENT) USE OF ANTITHROMBOTI 10/29/2017 MAGDY ZIEGLER APRN Ot Z79 .4 HALF-WAY (CURRENT) USE OF INSULIN 10/29/2017 MAGDY ZIEGLER APRN Ot Z79.51 CHIEF MEDICAL OFFICER (CURRENT) USE OF INHALED STERO 10/29/2017 MAGDY ZIEGLER APRN Ot Z79.52 CHIEF MEDICAL OFFICER (CURRENT) USE OF SYSTEMIC STER 10/29/2017 MAGDY ZIEGLER APRN Ot Z79.82 HALF-WAY (CURRENT) USE OF ASPIRIN 10/29/2017 MAGDY ZIEGLER APRN Ot Z82.49 FAMILY HX OF [place]HE[place] HEART DIS AND OTH DI 10/29/2017 MAGDY ZIEGLER APRN Ot Z87.19 PERSONAL HISTORY OF OTHER DISEASES OF TH 10/29/2017 MAGDY ZIEGLER APRN Ot Z87.440 PERSONAL HISTORY OF URINARY (TRACT) INFE 10/29/2017 MAGDY ZIEGLER APRN Ot Z88 .0 ALLERGY STATUS TO PENICILLIN 10/29/2017 MAGDY ZIEGLER APRN Ot Z88 .5 ALLERGY STATUS TO NARCOTIC AGENT STATUS 10/29/2017 MAGDY ZIEGLER APRN Ot Z88 .6 ALLERGY STATUS TO ANALGESIC AGENT STATUS 10/29/2017 MAGDY ZIEGLER APRN Ot Z88 .8 ALLERGY STATUS TO OT DRUG/MEDS/BIOL SUB 10/29/2017 MAGDY ZIEGLER APRN Ot Z90.89 ACQUIRED ABSENCE OF OTHER ORGANS 10/29/2017 MAGDY ZIEGLER APRN Ot Z95 .5 PRESENCE OF CORONARY ANGIOPLASTY IMPLANT 10/30/2017 Ot I82.432 AC [place] EMBOLISM AND THROMBOSIS OF LEFT PO 10/30/2017 Ot R00.2 PALP ITATIONS 10/31/2017 BATSHEVA LARKIN, KIYA R Ot Z29. 8 ENCOUNTER FOR OTHER SPECIFIED PROPHYLACT 11/02/2017 MAGDY ZIEGLER APRN Ot E03 .9 HYPOTHYROIDISM, UNSPECIFIED 11/02/2017 MAGDY ZIEGLER APRN Ot E11 .9 TYPE 2 DIABETES MELLITUS WITHOUT COMPLIC 11/02/2017 MAGDY ZIEGLER APRN Ot E78.00 PURE HYPERCHOLESTEROLEMIA, UNSPECIFIED 11/02/2017 MAGDY ZIEGLER APRN Ot F32 .9 MAJOR DEPRESSIVE DISORDER, SINGLE EPISOD 11/02/2017 MAGDY ZIEGLER APRN Ot F41 .9 ANXIETY DISORDER, UNSPECIFIED 11/02/2017 MAGDY ZIGELER APRN Ot G47.30 SLEEP APNEA, UNSPECIFIED 11/02/2017 MAGDY ZIEGLER APRN Ot I10 ESSENTIAL (PRIMARY) HYPERTENSION 11/02/2017 MAGDY ZIEGLER APRN Ot I25.10 ATHSCL HEART DISEASE OF [place] CORONARY 11/02/2017 MAGDY ZIEGLER APRN Ot I42 .9 CARDIOMYOPATHY, UNSPECIFIED 11/02/2017 MAGDY ZIEGLER APRN Ot J44 .9 CHRONIC OBSTRUCTIVE PULMONARY DISEASE, U 11/02/2017 MAGDY ZIEGLER APRN Ot R10.13 EPIGASTRIC PAIN 11/02/2017 MAGDY ZIEGLER APRN Ot Z79.02 HALF-WAY (CURRENT) USE OF ANTITHROMBOTI 11/02/2017 MAGDY ZIEGLER APRN Ot Z79 .4 CHIEF MEDICAL OFFICER (CURRENT) USE OF INSULIN 11/02/2017 MAGDY ZIEGLER APRN Ot Z79.51 HALF-WAY (CURRENT) USE OF INHALED STERO 11/02/2017 MAGDY ZIEGLER APRN Ot Z79.52 CHIEF MEDICAL OFFICER (CURRENT) USE OF SYSTEMIC STER 11/02/2017 MAGDY ZIEGLER APRN Ot Z79.82 CHIEF MEDICAL OFFICER (CURRENT) USE OF ASPIRIN 11/02/2017 MAGDY ZIEGLER APRN Ot Z82.49 FAMILY HX OF [place] HEART DIS AND OTH DI 11/02/2017 MAGDY ZIEGLER APRN Ot Z87.19 PERSONAL HISTORY OF OTHER DISEASES OF TH 11/02/2017 MAGDY ZIEGLER APRN Ot Z87.440 PERSONAL HISTORY OF URINARY (TRACT) INFE 11/02/2017 MAGDY ZIEGLER APRN Ot Z88 .0 ALLERGY STATUS TO PENICILLIN 11/02/2017 MAGDY ZIEGLER APRN Ot Z88 .5 ALLERGY STATUS TO NARCOTIC AGENT STATUS 11/02/2017 MAGDY ZIEGLER APRN Ot Z88 .6 ALLERGY STATUS TO ANALGESIC AGENT STATUS 11/02/2017 MAGDY ZIEGLER APRN Ot Z88 .8 ALLERGY STATUS TO OTH DRUG/MEDS/BIOL SUB 11/02/2017 MAGDY ZIEGLER APRN Ot Z90.89 ACQUIRED ABSENCE OF OTHER ORGANS 11/02/2017 MAGDY ZIEGLER APRN Ot Z95 .5 PRESENCE OF CORONARY ANGIOPLASTY IMPLANT 11/04/2017 MARILY PANDEY DO Ot Z01.818 ENCOUNTER FOR OTHER PREPROCEDURAL EXAMIN 11/04/2017 LARRY MURILLO DO, Ot D64. 9 ANEMIA, UNSPECIFIED 11/04/2017 LARRY MURILLO DO Ot E11. 51 TYPE 2 DIABETES W DIABETIC PERIPHERAL AN 11/04/2017 LARRY MURILLO DO, Ot E66. 01 MORBID (SEVERE) OBESITY DUE TO EXCESS CA 11/04/2017 LARRY MURILLO DO, Ot E78. 00 PURE HYPERCHOLESTEROLEMIA, UNSPECIFIED 11/04/2017 LARRY MURILLO DO, Ot E89. 0 POSTPROCEDURAL HYPOTHYROIDISM 11/04/2017 LARRY MURILLO DO, Ot F32. 9 MAJOR DEPRESSIVE DISORDER, SINGLE EPISOD 11/04/2017 LARRY MURILLO DO, Ot F41. 9 ANXIETY DISORDER, UNSPECIFIED 11/04/2017 LARRY MURILLO DO, Ot G47. 30 SLEEP APNEA, UNSPECIFIED 11/04/2017 LARRY MURILLO DO, Ot I10 ESSENTIAL (PRIMARY) HYPERTENSION 11/04/2017 LARRY MURILLO DO, Ot I13. 0 HYP HRT CHR [facility] DIS W HRT FAIL AND ST 11/04/2017 LARRY MURILLO DO, Ot I25. 10 ATHSCL HEART DISEASE OF [place] CORONARY 11/04/2017 LARRY MURILLO DO Ot I34. 0 NONRHEUMATIC MITRAL (VALVE) INSUFFICIENC 11/04/2017 LARRY MURILLO DO Ot I42. 9 CARDIOMYOPATHY, UNSPECIFIED 11/04/2017 LARRY MURILLO DO, Ot I50. 30 UNSPECIFIED DIASTOLIC (CONGESTIVE) HEART 11/04/2017 LARRY MURILLO DO, Ot I50. 31 ACUTE DIASTOLIC (CONGESTIVE) HEART FAILU 11/04/2017 LARRY MURILLO DO, Ot I65. 29 OCCLUSION AND STENOSIS OF UNSPECIFIED CA 11/04/2017 LARRY MURILLO DO, Ot I87. 2 VENOUS INSUFFICIENCY (CHRONIC) (PERIPHER 11/04/2017 LARRY MURILLO DO, Ot J44. 1 CHRONIC OBSTRUCTIVE PULMONARY DISEASE W 11/04/2017 LARRY MURILLO DO, Ot M19. 91 PRIMARY OSTEOARTHRITIS, UNSPECIFIED SITE 11/04/2017 CHIDI DO, LARRY M Ot M32. 9 SYSTEMIC LUPUS ERYTHEMATOSUS, UNSPECIFIE 11/04/2017 LARRY MURILLO DO Ot M41. 9 SCOLIOSIS, UNSPECIFIED 11/04/2017 CHIDI RUCKER LARRY M Ot M48. 00 SPINAL STENOSIS, SITE UNSPECIFIED 11/04/2017 LARRY MURILLO DO Ot M79.661 PAIN IN RIGHT LOWER LEG 11/04/2017 LARRY MURILLO DO Ot M79.662 PAIN IN LEFT LOWER LEG 11/04/2017 LARRY MURILLO DO Ot N18. 3 CHRONIC KIDNEY DISEASE, STAGE 3 (MODERAT 11/04/2017 LARRY MURILLO DO Ot R07. 89 OTHER CHEST PAIN 11/04/2017 LARRY MURILLO DO Ot R30. 0 DYSURIA 11/04/2017 LARRY MURILLO DO Ot R60. 0 LOCALIZED EDEMA 11/04/2017 LARRY MURILLO DO Ot Z68. 41 BODY MASS INDEX (BMI) 40.0-44.9, ADULT 11/04/2017 LARRY MURILLO DO Ot Z79. 4 CHIEF MEDICAL OFFICER (CURRENT) USE OF INSULIN 11/04/2017 LARRY MURILLO DO Ot Z95. 5 PRESENCE OF CORONARY ANGIOPLASTY IMPLANT 11/05/2017 MAGDY ZIEGLER APRN Ot E03 .9 HYPOTHYROIDISM, UNSPECIFIED 11/05/2017 MAGDY ZIEGLER APRN Ot E11 .9 TYPE 2 DIABETES MELLITUS WITHOUT COMPLIC 11/05/2017 MAGDY ZIEGLER APRN Ot E78.00 PURE HYPERCHOLESTEROLEMIA, UNSPECIFIED 11/05/2017 MAGDY ZIEGLER APRN Ot F32 .9 MAJOR DEPRESSIVE DISORDER, SINGLE EPISOD 11/05/2017 MAGDY ZIEGLER APRN Ot F41 .9 ANXIETY DISORDER, UNSPECIFIED 11/05/2017 MAGDY ZIEGLER APRN Ot G47.30 SLEEP APNEA, UNSPECIFIED 11/05/2017 MAGDY ZIEGLER APRN Ot I10 ESSENTIAL (PRIMARY) HYPERTENSION 11/05/2017 MAGDY ZIEGLER APRN Ot I25.10 ATHSCL HEART DISEASE OF [place] CORONARY 11/05/2017 MAGDY ZIEGLER APRN Ot I42 .9 CARDIOMYOPATHY, UNSPECIFIED 11/05/2017 MAGDY ZIEGLER APRN Ot J44 .9 CHRONIC OBSTRUCTIVE PULMONARY DISEASE, U 11/05/2017 MAGDY ZIEGLER APRN Ot R10.13 EPIGASTRIC PAIN 11/05/2017 MAGDY ZIEGLER APRN Ot Z79.02 CHIEF MEDICAL OFFICER (CURRENT) USE OF ANTITHROMBOTI 11/05/2017 MAGDY ZIEGLER APRN Ot Z79 .4 HALF-WAY (CURRENT) USE OF INSULIN 11/05/2017 MAGDY ZIEGLER APRN Ot Z79.51 CHIEF MEDICAL OFFICER (CURRENT) USE OF INHALED STERO 11/05/2017 MAGDY ZIEGLER APRN Ot Z79.52 CHIEF MEDICAL OFFICER (CURRENT) USE OF SYSTEMIC STER 11/05/2017 MAGDY ZIEGLER APRN Ot Z79.82 HALF-WAY (CURRENT) USE OF ASPIRIN 11/05/2017 MAGDY ZIEGLER APRN Ot Z82.49 FAMILY HX OF I[place]HEM HEART DIS AND OTH DI 11/05/2017 MAGDY ZIEGLER APRN Ot Z87.19 PERSONAL HISTORY OF OTHER DISEASES OF TH 11/05/2017 MAGDY ZIEGLER APRN Ot Z87.440 PERSONAL HISTORY OF URINARY (TRACT) INFE 11/05/2017 MAGDY ZIEGLER APRN Ot Z88 .0 ALLERGY STATUS TO PENICILLIN 11/05/2017 MAGDY ZIEGLER APRN Ot Z88 .5 ALLERGY STATUS TO NARCOTIC AGENT STATUS 11/05/2017 MAGDY ZIEGLER APRN Ot Z88 .6 ALLERGY STATUS TO ANALGESIC AGENT STATUS 11/05/2017 MAGDY ZIEGLER APRN Ot Z88 .8 ALLERGY STATUS TO OT DRUG/MEDS/BIOL SUB 11/05/2017 MAGDY ZIEGLER APRN Ot Z90.89 ACQUIRED ABSENCE OF OTHER ORGANS 11/05/2017 MAGDY ZIEGLER APRN Ot Z95 .5 PRESENCE OF CORONARY ANGIOPLASTY IMPLANT 11/05/2017 MARILY PANDEY DO Ot Z01.818 ENCOUNTER FOR OTHER PREPROCEDURAL EXAMIN 11/10/2017 MARILY PANDEY DO Ot E11. 42 TYPE 2 DIABETES MELLITUS WITH DIABETIC P 11/10/2017 MARILY PANDEY DO Ot E66. 01 MORBID (SEVERE) OBESITY DUE TO EXCESS CA 11/10/2017 MARILY PANDEY DO Ot G47. 33 OBSTRUCTIVE SLEEP APNEA (ADULT) (PEDIATR 11/10/2017 MARILY PANDEY DO Ot I10 ESSENTIAL (PRIMARY) HYPERTENSION 11/10/2017 MARILY PANDEY DO Ot I25. 10 ATHSCL HEART DISEASE OF [place] CORONARY 11/10/2017 MARILY PANDEY DO Ot I42. 9 CARDIOMYOPATHY, UNSPECIFIED 11/10/2017 MARILY PANDEY DO Ot J44. 9 CHRONIC OBSTRUCTIVE PULMONARY DISEASE, U 11/10/2017 MARILY PANDEY DO Ot J45.909 UNSPECIFIED ASTHMA, UNCOMPLICATED 11/10/2017 MARILY PANDEY DO Ot K25. 9 GASTRIC ULCER, UNSP ACUTE OR CHRONIC, 11/10/2017 MARILY PANDEY DO Ot K29. 50 UNSPECIFIED CHRONIC GASTRITIS WITHOUT BL 11/10/2017 MARILY PANDEY DO Ot K44. 9 DIAPHRAGMATIC HERNIA WITHOUT OBSTRUCTION 11/10/2017 MARILY PANDEY DO Ot Z68. 41 BODY MASS INDEX (BMI) 40.0-44.9, ADULT 11/10/2017 MARILY PANDEY DO Ot Z79. 4 HALF-WAY (CURRENT) USE OF INSULIN 11/10/2017 MARILY PANDEY DO Ot Z79. 82 CHIEF MEDICAL OFFICER (CURRENT) USE OF ASPIRIN 11/10/2017 MARILY PANDEY DO Ot Z95. 5 PRESENCE OF CORONARY ANGIOPLASTY IMPLANT 11/12/2017 MARILY PANDEY DO Ot E11. 42 TYPE 2 DIABETES MELLITUS WITH DIABETIC P 11/12/2017 MARILY PANDEY DO Ot E66. 01 MORBID (SEVERE) OBESITY DUE TO EXCESS CA 11/12/2017 MARILY PANDEY DO Ot G47. 33 OBSTRUCTIVE SLEEP APNEA (ADULT) (PEDIATR 11/12/2017 MARILY PANDEY DO Ot I10 ESSENTIAL (PRIMARY) HYPERTENSION 11/12/2017 MARILY PANDEY DO Ot I25. 10 ATHSCL HEART DISEASE OF [place] CORONARY 11/12/2017 MARILY PANDEY DO Ot I42. 9 CARDIOMYOPATHY, UNSPECIFIED 11/12/2017 MARILY PANDEY DO Ot J44. 9 CHRONIC OBSTRUCTIVE PULMONARY DISEASE, U 11/12/2017 MARILY PANDEY DO Ot J45.909 UNSPECIFIED ASTHMA, UNCOMPLICATED 11/12/2017 MARILY PANDEY DO Ot K25. 9 GASTRIC ULCER, UNSP ACUTE OR CHRONIC, 11/12/2017 MARILY PANDEY DO Ot K29. 50 UNSPECIFIED CHRONIC GASTRITIS WITHOUT BL 11/12/2017 MARILY PANDEY DO Ot K44. 9 DIAPHRAGMATIC HERNIA WITHOUT OBSTRUCTION 11/12/2017 MARILY PANDEY DO Ot Z68. 41 BODY MASS INDEX (BMI) 40.0-44.9, ADULT 11/12/2017 MARILY PANDEY DO Ot Z79. 4 CHIEF MEDICAL OFFICER (CURRENT) USE OF INSULIN 11/12/2017 PANDEYMARILY BURT DO Ot Z79. 82 CHIEF MEDICAL OFFICER (CURRENT) USE OF ASPIRIN 11/12/[facility] 5 PRESENCE OF CORONARY ANGIOPLASTY IMPLANT 12/03/2017 ABI PANG APRN Ot N63.20 UNSPECIFIED LUMP IN THE LEFT BREAST, UNS 12/03/2017 ABI PANG APRN Ot N64.4 MASTODYNIA 12/06/2017 NORA ESCAMILLA Ot D50.9 IRON DEFICIENCY ANEMIA, UNSPECIFIED 12/06/2017 NORA ESCAMILLA Ot E03.9 HYPOTHYROIDISM, UNSPECIFIED 12/06/2017 NORA ESCAMILLA Ot 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 W DIABETIC CALF SKINNER 12/06/2017 NORA ESCAMILLA Ot G47.33 OBSTRUCTIVE SLEEP APNEA (ADULT) (PEDIATR 12/06/2017 NORA ESCAMILLA Ot I12.9 HYPERTENSIVE CHRONIC KIDNEY DISEASE W ST 12/06/2017 NORA ESCAMILLA N Ot I25.10 ATHSCL HEART DISEASE OF [place] CORONARY 12/06/2017 NORA ESCAMILLA Ot J45.909 UNSPECIFIED ASTHMA, UNCOMPLICATED 12/06/2017 NORA ESCAMILLA Ot K25.9 GASTRIC ULCER, UNSP ACUTE OR CHRONIC, 12/06/2017 NORA ESCAMILLA Ot K29.50 UNSPECIFIED CHRONIC GASTRITIS WITHOUT BL 12/06/2017 NORA ESCAMILLA Ot N18.3 CHRONIC KIDNEY DISEASE, STAGE 3 (MODERAT 12/06/2017 NORA ESCAMILLA Ot Z79.4 HALF-WAY (CURRENT) USE OF INSULIN 12/06/2017 NORA ESCAMILLA Ot Z79.82 HALF-WAY (CURRENT) USE OF ASPIRIN 12/06/2017 MARIPOSA SANCHEZ APRN Ot J98.4 OTHER DISORDERS OF LUNG 12/06/2017 MARIPOSA SANCHEZ APRN Ot R06.02 SHORTNESS OF BREATH 12/06/2017 MARIPOSA SANCHEZ APRN Ot R09.02 HYPOXEMIA 12/08/2017 FRANCINE, BOBAN N Ot D50.9 IRON DEFICIENCY ANEMIA, UNSPECIFIED 12/08/2017 NORA ESCAMILLA N Ot E03.9 HYPOTHYROIDISM, UNSPECIFIED 12/08/2017 NORA ESCAMILLA N Ot 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 W DIABETIC CALF SKINNER 12/08/2017 NORA ESCAMILLA N Ot G47.33 OBSTRUCTIVE SLEEP APNEA (ADULT) (PEDIATR 12/08/2017 NORA ESCAMILLA N Ot I12.9 HYPERTENSIVE CHRONIC KIDNEY DISEASE W ST 12/08/2017 NORA ESCAMILLA Wilfrido Ot I25.10 ATHSCL HEART DISEASE OF [place] CORONARY 12/08/2017 NORA ESCAMILLA Wilfrido Ot J45.909 UNSPECIFIED ASTHMA, UNCOMPLICATED 12/08/2017 NORA ESCAMILLA N Ot K25.9 GASTRIC ULCER, UNSP ACUTE OR CHRONIC, 12/08/2017 NORA ESCAMILLA N Ot K29.50 UNSPECIFIED CHRONIC GASTRITIS WITHOUT BL 12/08/2017 NORA ESCAMILLA Wilfrido Ot N18.3 CHRONIC KIDNEY DISEASE, STAGE 3 (MODERAT 12/08/2017 NORA ESCAMILLA Wilfrido Ot Z79.4 HALF-WAY (CURRENT) USE OF INSULIN 12/08/2017 NORA ESCAMILLA N Ot Z79.82 HALF-WAY (CURRENT) USE OF ASPIRIN 12/09/2017 MARIPOSA SANCHEZ PLUMBING ASSEMBLER INSTALLER Ot J98.4 OTHER DISORDERS OF LUNG 12/09/2017 MARIPOSA SANCHEZ PLUMBING ASSEMBLER INSTALLER Ot R06.02 SHORTNESS OF BREATH 12/09/2017 MARIPOSA SANCHEZ PLUMBING ASSEMBLER INSTALLER Ot R09.02 HYPOXEMIA 12/22/2017 MARIPOSA SANCHEZ PLUMBING ASSEMBLER INSTALLER Ot J98.4 OTHER DISORDERS OF LUNG 12/22/2017 MARIPOSA SANCHEZ PLUMBING ASSEMBLER INSTALLER Ot R06.02 SHORTNESS OF BREATH 12/22/2017 MARIPOSA SANCHEZ PLUMBING ASSEMBLER INSTALLER Ot R09.02 HYPOXEMIA 12/22/2017 MARIPOSA SANCHEZ PLUMBING ASSEMBLER INSTALLER Ot J98.4 OTHER DISORDERS OF LUNG 12/22/2017 MARIPOSA SANCHEZ PLUMBING ASSEMBLER INSTALLER Ot R06.02 SHORTNESS OF BREATH 12/22/2017 MARIPOSA SANCHEZ PLUMBING ASSEMBLER INSTALLER Ot R09.02 HYPOXEMIA 12/22/2017 ABI PANG PLUMBING ASSEMBLER INSTALLER Ot N63.20 UNSPECIFIED LUMP IN THE LEFT BREAST, UNS 12/22/2017 ABI PANG PLUMBING ASSEMBLER INSTALLER Ot N64.4 MASTODYNIA 12/23/2017 MARIPOSA SANCHEZ PLUMBING ASSEMBLER INSTALLER Ot J98.4 OTHER DISORDERS OF LUNG 12/23/2017 MARIPOSA SANCHEZ PLUMBING ASSEMBLER INSTALLER Ot R06.02 SHORTNESS OF BREATH 12/23/2017 MARIPOSA SANCHEZ PLUMBING ASSEMBLER INSTALLER Ot R09.02 HYPOXEMIA 12/28/2017 ABI PANG R PLUMBING ASSEMBLER INSTALLER Ot N63.20 UNSPECIFIED LUMP IN THE LEFT BREAST, UNS 12/28/2017 POLY, ABI R PLUMBING ASSEMBLER INSTALLER Ot N64.4 MASTODYNIA 12/31/2017 MARIPOSA SANCHEZ PLUMBING ASSEMBLER INSTALLER Ot J98.4 OTHER DISORDERS OF LUNG 12/31/2017 MARIPOSA SANCHEZ PLUMBING ASSEMBLER INSTALLER Ot R06.02 SHORTNESS OF BREATH 12/31/2017 MARIPOSA SANCHEZ PLUMBING ASSEMBLER INSTALLER Ot R09.02 HYPOXEMIA 01/05/2018 [place] PLUMBING ASSEMBLER INSTALLER Ot R30.0 DYSURIA 01/06/2018 [place] PLUMBING ASSEMBLER INSTALLER Ot R30.0 DYSURIA 01/07/2018 MARIPOSA SANCHEZ PLUMBING ASSEMBLER INSTALLER Ot J98.4 OTHER DISORDERS OF LUNG 01/07/2018 MARIPOSA SANCHEZ PLUMBING ASSEMBLER INSTALLER Ot R06.02 SHORTNESS OF BREATH 01/07/2018 MARIPOSA SANCHEZ PLUMBING ASSEMBLER INSTALLER Ot R09.02 HYPOXEMIA 01/12/2018 MARIPOSA SANCHEZ PLUMBING ASSEMBLER INSTALLER Ot J98.4 OTHER DISORDERS OF LUNG 01/12/2018 MARIPOSA SANCHEZ PLUMBING ASSEMBLER INSTALLER Ot R06.02 SHORTNESS OF BREATH 01/12/2018 MARIPOSA SANCHEZ PLUMBING ASSEMBLER INSTALLER Ot R09.02 HYPOXEMIA 01/21/2018 MARIPOSA SANCHEZ PLUMBING ASSEMBLER INSTALLER Ot J98.4 OTHER DISORDERS OF LUNG 01/21/2018 MARIPOSA SANCHEZ PLUMBING ASSEMBLER INSTALLER Ot R06.02 SHORTNESS OF BREATH 01/21/2018 MARIPOSA SANCHEZ PLUMBING ASSEMBLER INSTALLER Ot R09.02 HYPOXEMIA 01/21/2018 MARIPOSA SANCHEZ PLUMBING ASSEMBLER INSTALLER Ot J98.4 OTHER DISORDERS OF LUNG 01/21/2018 MARIPOSA SANCHEZ PLUMBING ASSEMBLER INSTALLER Ot R06.02 SHORTNESS OF BREATH 01/21/2018 MARIPOSA SANCHEZ PLUMBING ASSEMBLER INSTALLER Ot R09.02 HYPOXEMIA 01/26/2018 MARIPOSA SANCHEZ PLUMBING ASSEMBLER INSTALLER Ot J98.4 OTHER DISORDERS OF LUNG 01/26/2018 MARIPOSA SANCHEZ PLUMBING ASSEMBLER INSTALLER Ot R06.02 SHORTNESS OF BREATH 01/26/2018 MARIPOSA SANCHEZ APRN Ot R09.02 HYPOXEMIA 01/27/2018 PANDEY DOMARILY Ot Z01.818 ENCOUNTER FOR OTHER PREPROCEDURAL EXAMIN 01/27/2018 PANDEY DO, MARILY Panchal Ot Z01.818 ENCOUNTER FOR OTHER PREPROCEDURAL EXAMIN 01/27/2018 PANDEY DO, MARILY Panchal Ot Z01.818 ENCOUNTER FOR OTHER PREPROCEDURAL EXAMIN 02/01/2018 PANDEY DOMARILY Ot Z01.818 ENCOUNTER FOR OTHER PREPROCEDURAL EXAMIN 02/01/2018 NORA ESCAMILLA Ot D50.9 IRON DEFICIENCY ANEMIA, UNSPECIFIED 02/01/2018 NORA ESCAMILLA Ot E03.9 HYPOTHYROIDISM, UNSPECIFIED 02/01/2018 NORA ESCAMILLA Ot 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 W DIABETIC CALF SKINNER 02/01/2018 ONRA ESCAMILLA Ot G47.33 OBSTRUCTIVE SLEEP APNEA (ADULT) (PEDIATR 02/01/2018 NORA ESCAMILLA Ot I12.9 HYPERTENSIVE CHRONIC KIDNEY DISEASE W ST 02/01/2018 NORA ESCAMILLA Ot I25.10 ATHSCL HEART DISEASE OF [place] CORONARY 02/01/2018 NORA ESCAMILLA Ot J45.909 UNSPECIFIED ASTHMA, UNCOMPLICATED 02/01/2018 NORA ESCAMILLA Ot K25.9 GASTRIC ULCER, UNSP ACUTE OR CHRONIC, 02/01/2018 NORA ESCAMILLA Ot K29.50 UNSPECIFIED CHRONIC GASTRITIS WITHOUT BL 02/01/2018 NORA ESCAMILLA Ot N18.3 CHRONIC KIDNEY DISEASE, STAGE 3 (MODERAT 02/01/2018 NORA ESCAMILLA Ot Z79.4 HALF-WAY (CURRENT) USE OF INSULIN 02/01/2018 NORA ESCAMILLA Ot Z79.82 CHIEF MEDICAL OFFICER (CURRENT) USE OF ASPIRIN 02/01/2018 MARIPOSA SANCHEZ APRN Ot J98.4 OTHER DISORDERS OF LUNG 02/01/2018 MARIPOSA SANCHEZ APRN Ot R06.02 SHORTNESS OF BREATH 02/01/2018 MARIPOSA SANCHEZ APRN Ot R09.02 HYPOXEMIA 02/02/2018 MARILY PANDEY DO Ot D50. 9 IRON DEFICIENCY ANEMIA, UNSPECIFIED 02/02/2018 MARILY PANDEY DO Ot E11. 9 TYPE 2 DIABETES MELLITUS WITHOUT COMPLIC 02/02/2018 MARILY PANDEY DO Ot E66. 01 MORBID (SEVERE) OBESITY DUE TO EXCESS CA 02/02/2018 MARILY PANDEY DO Ot G47. 33 OBSTRUCTIVE SLEEP APNEA (ADULT) (PEDIATR 02/02/2018 MARILY PANDEY DO Ot I10 ESSENTIAL (PRIMARY) HYPERTENSION 02/02/2018 MARILY PANDEY DO Ot I25. 10 ATHSCL HEART DISEASE OF [place] CORONARY 02/02/2018 MARILY PANDEY DO Ot J44. 9 CHRONIC OBSTRUCTIVE PULMONARY DISEASE, U 02/02/2018 MARILY PANDEY DO, Ot J45.909 UNSPECIFIED ASTHMA, UNCOMPLICATED 02/02/2018 MARILY PANDEY DO Ot K21. 9 GASTRO-ESOPHAGEAL REFLUX DISEASE WITHOUT 02/02/2018 MARILY PANDEY DO Ot K29. 70 GASTRITIS, UNSPECIFIED, WITHOUT BLEEDING 02/02/2018 MARILY PANDEY DO Ot K44. 9 DIAPHRAGMATIC HERNIA WITHOUT OBSTRUCTION 02/02/2018 MARILY PANDEY DO Ot Z68. 41 BODY MASS INDEX (BMI) 40.0-44.9, ADULT 02/02/2018 MARILY PANDEY DO Ot Z79. 4 CHIEF MEDICAL OFFICER (CURRENT) USE OF INSULIN 02/02/2018 MARILY PANDEY DO Ot Z79. 82 HALF-WAY (CURRENT) USE OF ASPIRIN 02/02/2018 MARILY PANDEY DO Ot Z79.899 OTHER CHIEF MEDICAL OFFICER (CURRENT) DRUG THERAPY 02/02/2018 MARILY PANDEY DO Ot Z95. 5 PRESENCE OF CORONARY ANGIOPLASTY IMPLANT 02/02/2018 NORA ESCAMILLA Ot D50.9 IRON DEFICIENCY ANEMIA, UNSPECIFIED 02/02/2018 NORA ESCAMILLA Ot E03.9 HYPOTHYROIDISM, UNSPECIFIED 02/02/2018 NORA ESCAMILLA Ot 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 W DIABETIC CALF SKINNER 02/02/2018 NORA ESCAMILLA Ot G47.33 OBSTRUCTIVE SLEEP APNEA (ADULT) (PEDIATR 02/02/2018 NORA ESCAMILLA Ot I12.9 HYPERTENSIVE CHRONIC KIDNEY DISEASE W ST 02/02/2018 NORA ESCAMILLA Ot I25.10 ATHSCL HEART DISEASE OF [place] CORONARY 02/02/2018 NORA ESCAMILLA Wilfrido Ot J45.909 UNSPECIFIED ASTHMA, UNCOMPLICATED 02/02/2018 FRANCINE SABRINANAZARIO Wilfrido Ot K25.9 GASTRIC ULCER, UNSP ACUTE OR CHRONIC, 02/02/2018 FRANCINE NORA Anna Ot K29.50 UNSPECIFIED CHRONIC GASTRITIS WITHOUT BL 02/02/2018 FRANCINE NORA Anna Ot N18.3 CHRONIC KIDNEY DISEASE, STAGE 3 (MODERAT 02/02/2018 FRANCINE NORA Anna Ot Z79.4 HALF-WAY (CURRENT) USE OF INSULIN 02/02/2018 NORA ESCAMILLA Ot Z79.82 CHIEF MEDICAL OFFICER (CURRENT) USE OF ASPIRIN 02/02/2018 MARIPOSA SANCHEZ APRN Ot J98.4 OTHER DISORDERS OF LUNG 02/02/2018 MARIPOSA SANCHEZ APRN Ot R06.02 SHORTNESS OF BREATH 02/02/2018 MARIPOSA SANCHEZ APRN Ot R09.02 HYPOXEMIA 02/03/2018 MARILY PANDEY DO Ot D50. 9 IRON DEFICIENCY ANEMIA, UNSPECIFIED 02/03/2018 MARILY PANDEY DO Ot E11. 9 TYPE 2 DIABETES MELLITUS WITHOUT COMPLIC 02/03/2018 MARILY PANDEY DO Ot E66. 01 MORBID (SEVERE) OBESITY DUE TO EXCESS CA 02/03/2018 MARILY PANDEY DO Ot G47. 33 OBSTRUCTIVE SLEEP APNEA (ADULT) (PEDIATR 02/03/2018 MARILY PANDEY DO Ot I10 ESSENTIAL (PRIMARY) HYPERTENSION 02/03/2018 MARILY PANDEY DO Ot I25. 10 ATHSCL HEART DISEASE OF [place] CORONARY 02/03/2018 MARILY PANDEY DO Ot J44. 9 CHRONIC OBSTRUCTIVE PULMONARY DISEASE, U 02/03/2018 MARILY PANDEY DO Ot J45.909 UNSPECIFIED ASTHMA, UNCOMPLICATED 02/03/2018 MARILY PANDEY DO Ot K21. 9 GASTRO-ESOPHAGEAL REFLUX DISEASE WITHOUT 02/03/2018 MARILY PANDEY DO Ot K29. 70 GASTRITIS, UNSPECIFIED, WITHOUT BLEEDING 02/03/2018 MARILY PANDEY DO Ot K44. 9 DIAPHRAGMATIC HERNIA WITHOUT OBSTRUCTION 02/03/2018 MARILY PANDEY DO Ot Z68. 41 BODY MASS INDEX (BMI) 40.0-44.9, ADULT 02/03/2018 MARILY PANDEY DO Ot Z79. 4 CHIEF MEDICAL OFFICER (CURRENT) USE OF INSULIN 02/03/2018 MARILY PANDEY DO Ot Z79. 82 CHIEF MEDICAL OFFICER (CURRENT) USE OF ASPIRIN 02/03/2018 MARILY PANDEY DO Ot Z79.899 OTHER HALF-WAY (CURRENT) DRUG THERAPY 02/03/2018 MARILY PANDEY DO Ot Z95. 5 PRESENCE OF CORONARY ANGIOPLASTY IMPLANT 02/09/2018 MARIPOSA SANCHEZ APRN Ot J98.4 OTHER DISORDERS OF LUNG 02/09/2018 MARIPOSA SANCHEZ APRN Ot R06.02 SHORTNESS OF BREATH 02/09/2018 MARIPOSA SANCHEZ APRN Ot R09.02 HYPOXEMIA 02/11/2018 MARIPOSA SANCHEZ APRN Ot J98.4 OTHER DISORDERS OF LUNG 02/11/2018 MARIPOSA SANCHEZ APRN Ot R06.02 SHORTNESS OF BREATH 02/11/2018 MARIPOSA SANCHEZ APRN Ot R09.02 HYPOXEMIA 02/16/2018 MARIPOSA SANCHEZ APRN Ot J98.4 OTHER DISORDERS OF LUNG 02/16/2018 MARIPOSA SANCHEZ APRN Ot R06.02 SHORTNESS OF BREATH 02/16/2018 MARIPOSA SANCHEZ APRN Ot R09.02 HYPOXEMIA 02/24/2018 MARIPOSA SANCHEZ APRN Ot I05.9 RHEUMATIC MITRAL VALVE DISEASE, UNSPECIF 02/24/2018 MARIPOSA SANCHEZ APRN Ot I25.10 ATHSCL HEART DISEASE OF [place] CORONARY 02/24/2018 MARIPOSA SANCHEZ APRN Ot J45.909 UNSPECIFIED ASTHMA, UNCOMPLICATED 02/24/2018 MARIPOSA SANCHEZ APRN Ot J98.4 OTHER DISORDERS OF LUNG 02/25/2018 MARIPOSA SANCHEZ APRN Ot J98.4 OTHER DISORDERS OF LUNG 02/25/2018 MARIPOSA SANCHEZ APRN Ot R06.02 SHORTNESS OF BREATH 02/25/2018 MARIPOSA SANCHEZ APRN Ot R09.02 HYPOXEMIA 02/26/2018 MARILY PANDEY DO Ot D50. 9 IRON DEFICIENCY ANEMIA, UNSPECIFIED 02/26/2018 MARILY PANDEY DO Ot E11. 9 TYPE 2 DIABETES MELLITUS WITHOUT COMPLIC 02/26/2018 MARILY PANDEY DO Ot E66. 01 MORBID (SEVERE) OBESITY DUE TO EXCESS CA 02/26/2018 MARILY PANDEY DO Ot G47. 33 OBSTRUCTIVE SLEEP APNEA (ADULT) (PEDIATR 02/26/2018 MARILY PANDEY DO Ot I10 ESSENTIAL (PRIMARY) HYPERTENSION 02/26/2018 MARILY PANDEY DO Ot I25. 10 ATHSCL HEART DISEASE OF [place] CORONARY 02/26/2018 MARILY PANDEY DO Ot J44. 9 CHRONIC OBSTRUCTIVE PULMONARY DISEASE, U 02/26/2018 MARILY PANDEY DO Ot J45.909 UNSPECIFIED ASTHMA, UNCOMPLICATED 02/26/2018 MARILY PANDEY DO Ot K21. 9 GASTRO-ESOPHAGEAL REFLUX DISEASE WITHOUT 02/26/2018 MARILY PANDEY DO Ot K29. 70 GASTRITIS, UNSPECIFIED, WITHOUT BLEEDING 02/26/2018 MARILY PANDEY DO Ot K44. 9 DIAPHRAGMATIC HERNIA WITHOUT OBSTRUCTION 02/26/2018 MARILY PANDEY DO Ot Z68. 41 BODY MASS INDEX (BMI) 40.0-44.9, ADULT 02/26/2018 MARILY PANDEY DO Ot Z79. 4 HALF-WAY (CURRENT) USE OF INSULIN 02/26/2018 MARILY PANDEY DO Ot Z79. 82 CHIEF MEDICAL OFFICER (CURRENT) USE OF ASPIRIN 02/26/2018 MARILY PANDEY DO Ot Z79.899 OTHER CHIEF MEDICAL OFFICER (CURRENT) DRUG THERAPY 02/26/2018 MARILY PANDEY DO Ot Z95. 5 PRESENCE OF CORONARY ANGIOPLASTY IMPLANT 03/04/2018 MARIPOSA SANCHEZ APRN Ot J98.4 OTHER DISORDERS OF LUNG 03/04/2018 MARIPOSA SANCHEZ APRN Ot R06.02 SHORTNESS OF BREATH 03/04/2018 MARIPOSA SANCHEZ APRN Ot R09.02 HYPOXEMIA 03/18/2018 MARIPOSA SANCHEZ APRN Ot J98.4 OTHER DISORDERS OF LUNG 03/18/2018 MARIPOSA SANCHEZ APRN Ot R06.02 SHORTNESS OF BREATH 03/18/2018 MARIPOSA SANCHEZ APRN Ot R09.02 HYPOXEMIA 03/21/2018 NORA ESCAMILLA Ot D50.9 IRON DEFICIENCY ANEMIA, UNSPECIFIED 03/21/2018 NORA ESCAMILLA Ot E03.9 HYPOTHYROIDISM, UNSPECIFIED 03/21/2018 FRANCINE, BOBAN N Ot 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 W DIABETIC CALF SKINNER 03/21/2018 FRANCINE, SABRINAAN N Ot G47.33 OBSTRUCTIVE SLEEP APNEA (ADULT) (PEDIATR 03/21/2018 FRANCINENORA N Ot I12.9 HYPERTENSIVE CHRONIC KIDNEY DISEASE W ST 03/21/2018 FRANCINENORA N Ot I25.10 ATHSCL HEART DISEASE OF [place] CORONARY 03/21/2018 NORA ESCAMILLA N Ot J45.909 UNSPECIFIED ASTHMA, UNCOMPLICATED 03/21/2018 FRANCINENORA N Ot K25.9 GASTRIC ULCER, UNSP ACUTE OR CHRONIC, 03/21/2018 FRANCINE BOBAN N Ot K29.50 UNSPECIFIED CHRONIC GASTRITIS WITHOUT BL 03/21/2018 NORA ESCAMILLA N Ot N18.3 CHRONIC KIDNEY DISEASE, STAGE 3 (MODERAT 03/21/2018 NORA ESCAMILLA N Ot Z79.4 CHIEF MEDICAL OFFICER (CURRENT) USE OF INSULIN 03/21/2018 NORA ESCAMILLA N Ot Z79.82 HALF-WAY (CURRENT) USE OF ASPIRIN 03/22/2018 MARIPOSA SANCHEZ PLUMBING ASSEMBLER INSTALLER Ot J98.4 OTHER DISORDERS OF LUNG 03/22/2018 MARIPOSA SANCHEZ PLUMBING ASSEMBLER INSTALLER Ot R06.02 SHORTNESS OF BREATH 03/22/2018 MARIPOSA SANCHEZ PLUMBING ASSEMBLER INSTALLER Ot R09.02 HYPOXEMIA 03/22/2018 NORA ESCAMILLA N Ot D50.9 IRON DEFICIENCY ANEMIA, UNSPECIFIED 03/22/2018 NORA ESCAMILLA N Ot E03.9 HYPOTHYROIDISM, UNSPECIFIED 03/22/2018 NORA ESCAMILLA N Ot 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 W DIABETIC CALF SKINNER 03/22/2018 NORA ESCAMILLA N Ot G47.33 OBSTRUCTIVE SLEEP APNEA (ADULT) (PEDIATR 03/22/2018 FRANCINENORA N Ot I12.9 HYPERTENSIVE CHRONIC KIDNEY DISEASE W ST 03/22/2018 FRANCINENORA N Ot I25.10 ATHSCL HEART DISEASE OF [place] CORONARY 03/22/2018 NORA ESCAMILLA N Ot J45.909 UNSPECIFIED ASTHMA, UNCOMPLICATED 03/22/2018 FRANCINESABRINAAN N Ot K25.9 GASTRIC ULCER, UNSP ACUTE OR CHRONIC, 03/22/2018 FRANCINENORA N Ot K29.50 UNSPECIFIED CHRONIC GASTRITIS WITHOUT BL 03/22/2018 NORA ESCAMILLA N Ot N18.3 CHRONIC KIDNEY DISEASE, STAGE 3 (MODERAT 03/22/2018 NORA ESCAMILLA N Ot Z79.4 HALF-WAY (CURRENT) USE OF INSULIN 03/22/2018 NORA ESCAMILLA N Ot Z79.82 CHIEF MEDICAL OFFICER (CURRENT) USE OF ASPIRIN 03/23/2018 MARIPOSA SANCHEZ PLUMBING ASSEMBLER INSTALLER Ot J98.4 OTHER DISORDERS OF LUNG 03/23/2018 MARIPOSA SANCHEZ PLUMBING ASSEMBLER INSTALLER Ot R06.02 SHORTNESS OF BREATH 03/23/2018 MARIPOSA SANCHEZ PLUMBING ASSEMBLER INSTALLER Ot R09.02 HYPOXEMIA 03/25/2018 MARIPOSA SANCHEZ PLUMBING ASSEMBLER INSTALLER Ot I05.9 RHEUMATIC MITRAL VALVE DISEASE, UNSPECIF 03/25/2018 MARIPOSA SANCHEZ PLUMBING ASSEMBLER INSTALLER Ot I25.10 ATHSCL HEART DISEASE OF [place] CORONARY 03/25/2018 MARIPOSA SANCHEZ PLUMBING ASSEMBLER INSTALLER Ot J45.909 UNSPECIFIED ASTHMA, UNCOMPLICATED 03/25/2018 MARIPOSA SANCHEZ PLUMBING ASSEMBLER INSTALLER Ot J98.4 OTHER DISORDERS OF LUNG 03/26/2018 MARIPOSA SANCHEZ PLUMBING ASSEMBLER INSTALLER Ot G47.33 OBSTRUCTIVE SLEEP APNEA (ADULT) (PEDIATR 03/27/2018 NORA ESCAMILLA N Ot D50.9 IRON DEFICIENCY ANEMIA, UNSPECIFIED 03/27/2018 NORA ESCAMILLA N Ot E03.9 HYPOTHYROIDISM, UNSPECIFIED 03/27/2018 NORA ESCAMILLA N Ot 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 W DIABETIC CALF SKINNER 03/27/2018 NORA ESCAMILLA N Ot G47.33 OBSTRUCTIVE SLEEP APNEA (ADULT) (PEDIATR 03/27/2018 NORA ESCAMILLA N Ot I12.9 HYPERTENSIVE CHRONIC KIDNEY DISEASE W ST 03/27/2018 NORA ESCAMILLA N Ot I25.10 ATHSCL HEART DISEASE OF [place] CORONARY 03/27/2018 NORA ESCAMILLA N Ot J45.909 UNSPECIFIED ASTHMA, UNCOMPLICATED 03/27/2018 NORA ESCAMILLA N Ot K25.9 GASTRIC ULCER, UNSP ACUTE OR CHRONIC, 03/27/2018 NORA ESCAMILLA N Ot K29.50 UNSPECIFIED CHRONIC GASTRITIS WITHOUT BL 03/27/2018 NORA ESCAMILLA N Ot N18.3 CHRONIC KIDNEY DISEASE, STAGE 3 (MODERAT 03/27/2018 NORA ESCAMILLA N Ot Z79.4 CHIEF MEDICAL OFFICER (CURRENT) USE OF INSULIN 03/27/2018 NORA ESCAMILLA N Ot Z79.82 HALF-WAY (CURRENT) USE OF ASPIRIN 03/28/2018 MARIPOSA SANCHEZ APRN Ot J98.4 OTHER DISORDERS OF LUNG 03/28/2018 MARIPOSA SANCHEZ APRN Ot R06.02 SHORTNESS OF BREATH 03/28/2018 MARIPOSA SANCHEZ PLUMBING ASSEMBLER INSTALLER Ot R09.02 HYPOXEMIA 03/30/2018 MARIPOSA SANCHEZ PLUMBING ASSEMBLER INSTALLER Ot J98.4 OTHER DISORDERS OF LUNG 03/30/2018 MARIPOSA SANCHEZ PLUMBING ASSEMBLER INSTALLER Ot R06.02 SHORTNESS OF BREATH 03/30/2018 MARIPOSA SANCHEZ PLUMBING ASSEMBLER INSTALLER Ot R09.02 HYPOXEMIA 03/30/2018 MARIPOSA SANCHEZ APRN Ot G47.33 OBSTRUCTIVE SLEEP APNEA (ADULT) (PEDIATR 03/30/2018 MARIPOSA SANCHEZ PLUMBING ASSEMBLER INSTALLER Ot G47.33 OBSTRUCTIVE SLEEP APNEA (ADULT) (PEDIATR 03/31/2018 MARIPOSA SANCHEZ APRN Ot G47.33 OBSTRUCTIVE SLEEP APNEA (ADULT) (PEDIATR 03/31/2018 MARIPOSA SANCHEZ PLUMBING ASSEMBLER INSTALLER Ot J45.909 UNSPECIFIED ASTHMA, UNCOMPLICATED 03/31/2018 MARIPOSA SANCHEZ APRN Ot J98.4 OTHER DISORDERS OF LUNG 03/31/2018 MARIPOSA SANCHEZ APRN Ot R06.02 SHORTNESS OF BREATH 03/31/2018 MARIPOSA SANCHEZ APRN Ot R07.89 OTHER CHEST PAIN 03/31/2018 MARIPOSA SANCHEZ APRN Ot R09.02 HYPOXEMIA 03/31/2018 MARIPOSA SANCHEZ APRN Ot I05.9 RHEUMATIC MITRAL VALVE DISEASE, UNSPECIF 03/31/2018 MARIPOSA SANCHEZ PLUMBING ASSEMBLER INSTALLER Ot I25.10 ATHSCL HEART DISEASE OF [place] CORONARY 03/31/2018 MARIPOSA SANCHEZ PLUMBING ASSEMBLER INSTALLER Ot J45.909 UNSPECIFIED ASTHMA, UNCOMPLICATED 03/31/2018 MARIPOSA SANCHEZ PLUMBING ASSEMBLER INSTALLER Ot J98.4 OTHER DISORDERS OF LUNG 03/31/2018 MARIPOSA SANCHEZ PLUMBING ASSEMBLER INSTALLER Ot G47.33 OBSTRUCTIVE SLEEP APNEA (ADULT) (PEDIATR 03/31/2018 MARIPOSA SANCHEZ PLUMBING ASSEMBLER INSTALLER Ot J45.909 UNSPECIFIED ASTHMA, UNCOMPLICATED 03/31/2018 MARIPOSA SANCHEZ PLUMBING ASSEMBLER INSTALLER Ot J98.4 OTHER DISORDERS OF LUNG 03/31/2018 MARIPOSA SANCHEZ PLUMBING ASSEMBLER INSTALLER Ot R06.02 SHORTNESS OF BREATH 03/31/2018 MARIPOSA SANCHEZ PLUMBING ASSEMBLER INSTALLER Ot R07.89 OTHER CHEST PAIN 03/31/2018 MARIPOSA SANCHEZ PLUMBING ASSEMBLER INSTALLER Ot R09.02 HYPOXEMIA 04/01/2018 SATHYA SANCHEZINE E PLUMBING ASSEMBLER INSTALLER Ot J98.4 OTHER DISORDERS OF LUNG 04/01/2018 DANIELMARIPOSA GUTIERRES PLUMBING ASSEMBLER INSTALLER Ot R06.02 SHORTNESS OF BREATH 04/01/2018 MARIPOSA SANCHEZ E PLUMBING ASSEMBLER INSTALLER Ot R09.02 HYPOXEMIA 04/06/2018 SATHYA SANCHEZINE E PLUMBING ASSEMBLER INSTALLER Ot J98.4 OTHER DISORDERS OF LUNG 04/06/2018 MARIPOSA SANCHEZ PLUMBING ASSEMBLER INSTALLER Ot R06.02 SHORTNESS OF BREATH 04/06/2018 MARIPOSA SANCHEZ PLUMBING ASSEMBLER INSTALLER Ot R09.02 HYPOXEMIA 04/08/2018 MARIPOSA SANCHEZ PLUMBING ASSEMBLER INSTALLER Ot J98.4 OTHER DISORDERS OF LUNG 04/08/2018 MARIPOSA SANCHEZ PLUMBING ASSEMBLER INSTALLER Ot R06.02 SHORTNESS OF BREATH 04/08/2018 MARIPOSA SANCHEZ PLUMBING ASSEMBLER INSTALLER Ot R09.02 HYPOXEMIA 04/13/2018 MARIPOSA SANCHEZ PLUMBING ASSEMBLER INSTALLER Ot J98.4 OTHER DISORDERS OF LUNG 04/13/2018 MARIPOSA SANCHEZ PLUMBING ASSEMBLER INSTALLER Ot R06.02 SHORTNESS OF BREATH 04/13/2018 MARIPOSA SANCHEZ PLUMBING ASSEMBLER INSTALLER Ot R09.02 HYPOXEMIA 04/17/2018 MARIPOSA SANCHEZ PLUMBING ASSEMBLER INSTALLER Ot J98.4 OTHER DISORDERS OF LUNG 04/17/2018 MARIPOSA SANCHEZ PLUMBING ASSEMBLER INSTALLER Ot R06.02 SHORTNESS OF BREATH 04/17/2018 MARIPOSA SANCHEZ PLUMBING ASSEMBLER INSTALLER Ot R09.02 HYPOXEMIA 04/21/2018 NORA ESCAMILLA Ot D50.9 IRON DEFICIENCY ANEMIA, UNSPECIFIED 04/21/2018 NORA ESCAMILLA Ot E03.9 HYPOTHYROIDISM, UNSPECIFIED 04/21/2018 NORA ESCAMILLA N Ot 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 W DIABETIC CALF SKINNER 04/21/2018 NORA ESCAMILLA Ot G47.33 OBSTRUCTIVE SLEEP APNEA (ADULT) (PEDIATR 04/21/2018 NORA ESCAMILLA Ot I12.9 HYPERTENSIVE CHRONIC KIDNEY DISEASE W ST 04/21/2018 FRANCINENORA Ot I25.10 ATHSCL HEART DISEASE OF [place] CORONARY 04/21/2018 FRANCINE NORA Anna Ot J45.909 UNSPECIFIED ASTHMA, UNCOMPLICATED 04/21/2018 FRANCINENORA N Ot K25.9 GASTRIC ULCER, UNSP ACUTE OR CHRONIC, 04/21/2018 FRANCINENORA N Ot K29.50 UNSPECIFIED CHRONIC GASTRITIS WITHOUT BL 04/21/2018 NORA ESCAMILLA N Ot N18.3 CHRONIC KIDNEY DISEASE, STAGE 3 (MODERAT 04/21/2018 NORA ESCAMILLA N Ot Z79.4 CHIEF MEDICAL OFFICER (CURRENT) USE OF INSULIN 04/21/2018 NORA ESCAMILLA N Ot Z79.82 CHIEF MEDICAL OFFICER (CURRENT) USE OF ASPIRIN 04/22/2018 NORA ESCAMILLA N Ot D50.9 IRON DEFICIENCY ANEMIA, UNSPECIFIED 04/22/2018 NORA ESCAMILLA Ot E03.9 HYPOTHYROIDISM, UNSPECIFIED 04/22/2018 NORA ESCAMILLA N Ot 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 W DIABETIC CALF SKINNER 04/22/2018 NORA ESCAMILLA N Ot G47.33 OBSTRUCTIVE SLEEP APNEA (ADULT) (PEDIATR 04/22/2018 NORA ESCAMILLA N Ot I12.9 HYPERTENSIVE CHRONIC KIDNEY DISEASE W ST 04/22/2018 NORA ESCAMILLA N Ot I25.10 ATHSCL HEART DISEASE OF [place] CORONARY 04/22/2018 FRANCINENORA Ot J45.909 UNSPECIFIED ASTHMA, UNCOMPLICATED 04/22/2018 NORA ESCAMILLA N Ot K25.9 GASTRIC ULCER, UNSP ACUTE OR CHRONIC, 04/22/2018 NORA ESCAMILLA N Ot K29.50 UNSPECIFIED CHRONIC GASTRITIS WITHOUT BL 04/22/2018 NORA ESCAMILLA N Ot N18.3 CHRONIC KIDNEY DISEASE, STAGE 3 (MODERAT 04/22/2018 NORA ESCAMILLA N Ot Z79.4 CHIEF MEDICAL OFFICER (CURRENT) USE OF INSULIN 04/22/2018 NORA ESCAMILLA N Ot Z79.82 HALF-WAY (CURRENT) USE OF ASPIRIN 04/27/2018 MARIPOSA SANCHEZ PLUMBING ASSEMBLER INSTALLER Ot J98.4 OTHER DISORDERS OF LUNG 04/27/2018 MARIPOSA SANCHEZ PLUMBING ASSEMBLER INSTALLER Ot R06.02 SHORTNESS OF BREATH 04/27/2018 MARIPOSA SANCHEZ PLUMBING ASSEMBLER INSTALLER Ot R09.02 HYPOXEMIA 05/04/2018 DANIELSATHYA GUTIERRESINE E PLUMBING ASSEMBLER INSTALLER Ot J98.4 OTHER DISORDERS OF LUNG 05/04/2018 DANIELSATHYA GUTIERRESINE Zafar PLUMBING ASSEMBLER INSTALLER Ot R06.02 SHORTNESS OF BREATH 05/04/2018 SATHYA SANCHEZINE E PLUMBING ASSEMBLER INSTALLER Ot R09.02 HYPOXEMIA 05/05/2018 DANIELSATHYA GUTIERRESINE E PLUMBING ASSEMBLER INSTALLER Ot J98.4 OTHER DISORDERS OF LUNG 05/05/2018 DANIELSATHYA GUTIERRESINE E PLUMBING ASSEMBLER INSTALLER Ot R06.02 SHORTNESS OF BREATH 05/05/2018 DANIELSATHYAMARIPOSA E PLUMBING ASSEMBLER INSTALLER Ot R09.02 HYPOXEMIA 05/07/2018 DANIEL, MARIPOSA E PLUMBING ASSEMBLER INSTALLER Ot J98.4 OTHER DISORDERS OF LUNG 05/07/2018 DANIELMARIPOSA GUTIERRES PLUMBING ASSEMBLER INSTALLER Ot R06.02 SHORTNESS OF BREATH 05/07/2018 SATHYA SANCHEZINE E PLUMBING ASSEMBLER INSTALLER Ot R09.02 HYPOXEMIA 05/08/2018 DANIELSATHYA GUTIERRESINE E PLUMBING ASSEMBLER INSTALLER Ot G47.33 OBSTRUCTIVE SLEEP APNEA (ADULT) (PEDIATR 05/08/2018 DANIELSATHYA GUTIERRESINE E PLUMBING ASSEMBLER INSTALLER Ot J30.9 ALLERGIC RHINITIS, UNSPECIFIED 05/08/2018 DANIELSATHYAMARIPOSA E PLUMBING ASSEMBLER INSTALLER Ot J45.909 UNSPECIFIED ASTHMA, UNCOMPLICATED 05/08/2018 DANIELSATHYA GUTIERRESINE Zfaar PLUMBING ASSEMBLER INSTALLER Ot J98.4 OTHER DISORDERS OF LUNG 05/08/2018 MARIPOSA SANCHEZ PLUMBING ASSEMBLER INSTALLER Ot R06.02 SHORTNESS OF BREATH 05/08/2018 MARIPOSA SANCHEZ PLUMBING ASSEMBLER INSTALLER Ot R07.89 OTHER CHEST PAIN 05/08/2018 MARIPOSA SANCHEZ PLUMBING ASSEMBLER INSTALLER Ot R09.02 HYPOXEMIA 05/10/2018 SATHYA SANCHEZINE E PLUMBING ASSEMBLER INSTALLER Ot G47.33 OBSTRUCTIVE SLEEP APNEA (ADULT) (PEDIATR 05/10/2018 DANIELSATHYA GUTIERRESINE E PLUMBING ASSEMBLER INSTALLER Ot J30.9 ALLERGIC RHINITIS, UNSPECIFIED 05/10/2018 DANIELSATHYA GUTIERRESINE E PLUMBING ASSEMBLER INSTALLER Ot J45.909 UNSPECIFIED ASTHMA, UNCOMPLICATED 05/10/2018 DANIELSATHYA GUTIERRESINE E PLUMBING ASSEMBLER INSTALLER Ot J98.4 OTHER DISORDERS OF LUNG 05/10/2018 DANIELMARIPOSA GUTIERRES E PLUMBING ASSEMBLER INSTALLER Ot R06.02 SHORTNESS OF BREATH 05/10/2018 DANIELSATHYA GUTIERRESINE E PLUMBING ASSEMBLER INSTALLER Ot R07.89 OTHER CHEST PAIN 05/10/2018 DANIELMARIPOSA GUTIERRES PLUMBING ASSEMBLER INSTALLER Ot R09.02 HYPOXEMIA 05/11/2018 DANIELSATHYAMARIPOSA E PLUMBING ASSEMBLER INSTALLER Ot J98.4 OTHER DISORDERS OF LUNG 05/11/2018 DANIEL MARIPOSA E PLUMBING ASSEMBLER INSTALLER Ot R06.02 SHORTNESS OF BREATH 05/11/2018 DANIEL MARIPOSA E PLUMBING ASSEMBLER INSTALLER Ot R09.02 HYPOXEMIA 05/13/2018 DANIEL MARIPOSA E PLUMBING ASSEMBLER INSTALLER Ot J98.4 OTHER DISORDERS OF LUNG 05/13/2018 DANIELSATHYA GUTIERRESINE E PLUMBING ASSEMBLER INSTALLER Ot R06.02 SHORTNESS OF BREATH 05/13/2018 SATHYA SANCHEZINE E PLUMBING ASSEMBLER INSTALLER Ot R09.02 HYPOXEMIA 05/20/2018 DANIELSATHYA GUTIERRESINE E PLUMBING ASSEMBLER INSTALLER Ot J98.4 OTHER DISORDERS OF LUNG 05/20/2018 DANIELMARIPOSA GUTIERRES PLUMBING ASSEMBLER INSTALLER Ot R06.02 SHORTNESS OF BREATH 05/20/2018 MARIPOSA SANCHEZ PLUMBING ASSEMBLER INSTALLER Ot R09.02 HYPOXEMIA 05/27/2018 SATHYA SANCHEZINE Zafar PLUMBING ASSEMBLER INSTALLER Ot J98.4 OTHER DISORDERS OF LUNG 05/27/2018 MARIPOSA SANCHEZ PLUMBING ASSEMBLER INSTALLER Ot R06.02 SHORTNESS OF BREATH 05/27/2018 MARIPOSA SANCHEZ PLUMBING ASSEMBLER INSTALLER Ot R09.02 HYPOXEMIA 05/28/2018 NORA ESCAMILLA Ot D50.9 IRON DEFICIENCY ANEMIA, UNSPECIFIED 05/28/2018 NORA ESCAMILLA Ot E03.9 HYPOTHYROIDISM, UNSPECIFIED 05/28/2018 NORA ESCAMILLA N Ot 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 W DIABETIC CALF SKINNER 05/28/2018 NORA ESCAMILLA Ot G47.33 OBSTRUCTIVE SLEEP APNEA (ADULT) (PEDIATR 05/28/2018 NORA ESCAMILLA N Ot I12.9 HYPERTENSIVE CHRONIC KIDNEY DISEASE W ST 05/28/2018 NORA ESCAMILLA N Ot I25.10 ATHSCL HEART DISEASE OF [place] CORONARY 05/28/2018 NORA ESCAMILLA Ot J45.909 UNSPECIFIED ASTHMA, UNCOMPLICATED 05/28/2018 NORA ESCAMILLA Ot K25.9 GASTRIC ULCER, UNSP ACUTE OR CHRONIC, 05/28/2018 NORA ESCAMILLA N Ot K29.50 UNSPECIFIED CHRONIC GASTRITIS WITHOUT BL 05/28/2018 NORA ESCAMILLA Ot N18.3 CHRONIC KIDNEY DISEASE, STAGE 3 (MODERAT 05/28/2018 NORA ESCAMILLA Ot Z79.4 CHIEF MEDICAL OFFICER (CURRENT) USE OF INSULIN 05/28/2018 NORA ESCAMILLA Ot Z79.82 HALF-WAY (CURRENT) USE OF ASPIRIN 06/01/2018 MARIPOSA SANCHEZ PLUMBING ASSEMBLER INSTALLER Ot J98.4 OTHER DISORDERS OF LUNG 06/01/2018 MARIPOSA SANCHEZ PLUMBING ASSEMBLER INSTALLER Ot R06.02 SHORTNESS OF BREATH 06/01/2018 MARIPOSA SANCHEZ PLUMBING ASSEMBLER INSTALLER Ot R09.02 HYPOXEMIA 06/01/2018 MARIPOSA SANCHEZ PLUMBING ASSEMBLER INSTALLER Ot J98.4 OTHER DISORDERS OF LUNG 06/01/2018 MARIPOSA SANCHEZ PLUMBING ASSEMBLER INSTALLER Ot R06.02 SHORTNESS OF BREATH 06/01/2018 MARIPOSA SANCHEZ PLUMBING ASSEMBLER INSTALLER Ot R09.02 HYPOXEMIA 06/01/2018 NORA ESCAMILLA Ot D50.9 IRON DEFICIENCY ANEMIA, UNSPECIFIED 06/01/2018 NORA ESCAMILLA Ot E03.9 HYPOTHYROIDISM, UNSPECIFIED 06/01/2018 NORA ESCAMILLA Ot 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 W DIABETIC CALF SKINNER 06/01/2018 NORA ESCAMILLA Ot G47.33 OBSTRUCTIVE SLEEP APNEA (ADULT) (PEDIATR 06/01/2018 NORA ESCAMILLA N Ot I12.9 HYPERTENSIVE CHRONIC KIDNEY DISEASE W ST 06/01/2018 NORA ESCAMILLA Ot I25.10 ATHSCL HEART DISEASE OF [place] CORONARY 06/01/2018 NORA ESCAMILLA Ot J45.909 UNSPECIFIED ASTHMA, UNCOMPLICATED 06/01/2018 NORA ESCAMILLA Ot K25.9 GASTRIC ULCER, UNSP ACUTE OR CHRONIC, 06/01/2018 NORA ESCAMILLA Ot K29.50 UNSPECIFIED CHRONIC GASTRITIS WITHOUT BL 06/01/2018 NORA ESCAMILLA Ot N18.3 CHRONIC KIDNEY DISEASE, STAGE 3 (MODERAT 06/01/2018 NORA ESCAMILLA Ot Z79.4 HALF-WAY (CURRENT) USE OF INSULIN 06/01/2018 NORA ESCAMILLA Ot Z79.82 CHIEF MEDICAL OFFICER (CURRENT) USE OF ASPIRIN 06/01/2018 ISAAC LARKIN, TO Alejandra Ot E03. 9 HYPOTHYROIDISM, UNSPECIFIED 06/01/2018 TO GRAY MD Ot E11. 9 TYPE 2 DIABETES MELLITUS WITHOUT COMPLIC 06/01/2018 TO GRAY MD Ot E78. 00 PURE HYPERCHOLESTEROLEMIA, UNSPECIFIED 06/01/2018 TO GRAY MD Ot F32. 9 MAJOR DEPRESSIVE DISORDER, SINGLE EPISOD 06/01/2018 TO GRAY MD Ot F41. 9 ANXIETY DISORDER, UNSPECIFIED 06/01/2018 TO GRAY MD Ot G47. 30 SLEEP APNEA, UNSPECIFIED 06/01/2018 TO GRAY MD Ot I10 ESSENTIAL (PRIMARY) HYPERTENSION 06/01/2018 TO GRAY MD Ot I42. 9 CARDIOMYOPATHY, UNSPECIFIED 06/01/2018 TO GRAY MD Ot I49. 9 CARDIAC ARRHYTHMIA, UNSPECIFIED 06/01/2018 TO GRAY MD Ot J44. 9 CHRONIC OBSTRUCTIVE PULMONARY DISEASE, U 06/01/2018 TO GRAY MD Ot M32. 9 SYSTEMIC LUPUS ERYTHEMATOSUS, UNSPECIFIE 06/01/2018 TO GRAY MD Ot R00. 9 UNSPECIFIED ABNORMALITIES OF HEART BEAT 06/01/2018 TO GRAY MD Ot Z79. 4 CHIEF MEDICAL OFFICER (CURRENT) USE OF INSULIN 06/01/2018 TO GRAY MD Ot Z79. 51 CHIEF MEDICAL OFFICER (CURRENT) USE OF INHALED STERO 06/01/2018 TO GRAY MD Ot Z79. 82 CHIEF MEDICAL OFFICER (CURRENT) USE OF ASPIRIN 06/01/2018 TO GRAY MD Ot Z82. 49 FAMILY HX OF ISCHEM HEART DIS AND OTH DI 06/01/2018 TO GRAY MD Ot Z87.440 PERSONAL HISTORY OF URINARY (TRACT) INFE 06/01/2018 TO GRAY MD Ot Z88. 0 ALLERGY STATUS TO PENICILLIN 06/01/2018 TO GRAY MD Ot Z88. 5 ALLERGY STATUS TO NARCOTIC AGENT STATUS 06/01/2018 TO GRAY MD Ot Z88. 6 ALLERGY STATUS TO ANALGESIC AGENT STATUS 06/01/2018 TO GRAY MD Ot Z88. 8 ALLERGY STATUS TO OTH DRUG/MEDS/BIOL SUB 06/01/2018 TO GRAY MD Ot Z90. 89 ACQUIRED ABSENCE OF OTHER ORGANS 06/01/2018 TO GRAY MD Ot Z95. 5 PRESENCE OF CORONARY ANGIOPLASTY IMPLANT 06/03/2018 ISAAC MD, TO J Ot E03. 9 HYPOTHYROIDISM, UNSPECIFIED 06/03/2018 TO GRAY MD Ot E11. 9 TYPE 2 DIABETES MELLITUS WITHOUT COMPLIC 06/03/2018 TO GRAY MD Ot E78. 00 PURE HYPERCHOLESTEROLEMIA, UNSPECIFIED 06/03/2018 TO GRAY MD Ot F32. 9 MAJOR DEPRESSIVE DISORDER, SINGLE EPISOD 06/03/2018 TO GRAY MD Ot F41. 9 ANXIETY DISORDER, UNSPECIFIED 06/03/2018 TO GRAY MD Ot G47. 30 SLEEP APNEA, UNSPECIFIED 06/03/2018 TO GRAY MD Ot I10 ESSENTIAL (PRIMARY) HYPERTENSION 06/03/2018 TO GRAY MD Ot I42. 9 CARDIOMYOPATHY, UNSPECIFIED 06/03/2018 TO GRAY MD Ot I49. 9 CARDIAC ARRHYTHMIA, UNSPECIFIED 06/03/2018 TO GRAY MD Ot J44. 9 CHRONIC OBSTRUCTIVE PULMONARY DISEASE, U 06/03/2018 TO GRAY MD Ot M32. 9 SYSTEMIC LUPUS ERYTHEMATOSUS, UNSPECIFIE 06/03/2018 TO GRAY MD Ot R00. 9 UNSPECIFIED ABNORMALITIES OF HEART BEAT 06/03/2018 TO GRAY MD Ot Z79. 4 CHIEF MEDICAL OFFICER (CURRENT) USE OF INSULIN 06/03/2018 TO GRAY MD Ot Z79. 51 HALF-WAY (CURRENT) USE OF INHALED STERO 06/03/2018 TO GRAY MD Ot Z79. 82 HALF-WAY (CURRENT) USE OF ASPIRIN 06/03/2018 TO GRAY MD Ot Z82. 49 FAMILY HX OF ISCHEM HEART DIS AND OTH DI 06/03/2018 TO GRAY MD Ot Z87.440 PERSONAL HISTORY OF URINARY (TRACT) INFE 06/03/2018 TO GRAY MD Ot Z88. 0 ALLERGY STATUS TO PENICILLIN 06/03/2018 TO GRAY MD Ot Z88. 5 ALLERGY STATUS TO NARCOTIC AGENT STATUS 06/03/2018 TO GRAY MD Ot Z88. 6 ALLERGY STATUS TO ANALGESIC AGENT STATUS 06/03/2018 TO GRAY MD Ot Z88. 8 ALLERGY STATUS TO OTH DRUG/MEDS/BIOL SUB 06/03/2018 TO GRAY MD Ot Z90. 89 ACQUIRED ABSENCE OF OTHER ORGANS 06/03/2018 ISAAC LARKIN, TO Alejandra Ot Z95. 5 PRESENCE OF CORONARY ANGIOPLASTY IMPLANT 06/30/2018 MARIPOSA SANCHEZ PLUMBING ASSEMBLER INSTALLER Ot J98.4 OTHER DISORDERS OF LUNG 06/30/2018 MARIPOSA SANCHEZ PLUMBING ASSEMBLER INSTALLER Ot R06.02 SHORTNESS OF BREATH 06/30/2018 MARIPOSA SANCHEZ PLUMBING ASSEMBLER INSTALLER Ot R09.02 HYPOXEMIA 07/01/2018 MARIPOSA SANCHEZ PLUMBING ASSEMBLER INSTALLER Ot J98.4 OTHER DISORDERS OF LUNG 07/01/2018 DANIELMARIPOSA GUTIERRES PLUMBING ASSEMBLER INSTALLER Ot R06.02 SHORTNESS OF BREATH 07/01/2018 MARIPOSA SANCHEZ PLUMBING ASSEMBLER INSTALLER Ot R09.02 HYPOXEMIA 07/20/2018 NORA ESCAMILLA N Ot D50.9 IRON DEFICIENCY ANEMIA, UNSPECIFIED 07/20/2018 NORA ESCAMILLA N Ot E03.9 HYPOTHYROIDISM, UNSPECIFIED 07/20/2018 NORA ESCAMILLA N Ot 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 W DIABETIC CALF SKINNER 07/20/2018 NORA ESCAMILLA N Ot G47.33 OBSTRUCTIVE SLEEP APNEA (ADULT) (PEDIATR 07/20/2018 NORA ESCAMILLA N Ot I12.9 HYPERTENSIVE CHRONIC KIDNEY DISEASE W ST 07/20/2018 NORA ESCAMILLA N Ot I25.10 ATHSCL HEART DISEASE OF [place] CORONARY 07/20/2018 NORA ESCAMILLA N Ot J45.909 UNSPECIFIED ASTHMA, UNCOMPLICATED 07/20/2018 NORA ESCAMILLA N Ot K25.9 GASTRIC ULCER, UNSP ACUTE OR CHRONIC, 07/20/2018 NORA ESCAMILLA N Ot K29.50 UNSPECIFIED CHRONIC GASTRITIS WITHOUT BL 07/20/2018 NORA ESCAMILLA N Ot N18.3 CHRONIC KIDNEY DISEASE, STAGE 3 (MODERAT 07/20/2018 NORA ESCAMILLA N Ot Z79.4 CHIEF MEDICAL OFFICER (CURRENT) USE OF INSULIN 07/20/2018 NORA ESCAMILLA N Ot Z79.82 HALF-WAY (CURRENT) USE OF ASPIRIN 07/21/2018 NORA ESCAMILLA N Ot D50.9 IRON DEFICIENCY ANEMIA, UNSPECIFIED 07/21/2018 NORA ESCAMILLA N Ot E03.9 HYPOTHYROIDISM, UNSPECIFIED 07/21/2018 NORA ESCAMILLA N Ot 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 W DIABETIC CALF SKINNER 07/21/2018 FRANCINE, BOBAN N Ot G47.33 OBSTRUCTIVE SLEEP APNEA (ADULT) (PEDIATR 07/21/2018 FRANCINE, BOBAN N Ot I12.9 HYPERTENSIVE CHRONIC KIDNEY DISEASE W ST 07/21/2018 FRANCINE, BOBAN N Ot I25.10 ATHSCL HEART DISEASE OF [place] CORONARY 07/21/2018 FRANCINESABRINAAN N Ot J45.909 UNSPECIFIED ASTHMA, UNCOMPLICATED 07/21/2018 FRANCINE, BOBAN N Ot K25.9 GASTRIC ULCER, UNSP ACUTE OR CHRONIC, 07/21/2018 FRANCINE, BOBAN N Ot K29.50 UNSPECIFIED CHRONIC GASTRITIS WITHOUT BL 07/21/2018 FRANCINE, BOBAN N Ot N18.3 CHRONIC KIDNEY DISEASE, STAGE 3 (MODERAT 07/21/2018 FRANCINE, BOBAN N Ot Z79.4 HALF-WAY (CURRENT) USE OF INSULIN 07/21/2018 FRANCINE, BOBAN N Ot Z79.82 CHIEF MEDICAL OFFICER (CURRENT) USE OF ASPIRIN 10/28/2018 FRANCINESABRINAAN N Ot D50.9 IRON DEFICIENCY ANEMIA, UNSPECIFIED 10/28/2018 FRANCINE BOBAN N Ot E03.9 HYPOTHYROIDISM, UNSPECIFIED 10/28/2018 FRANCINE, BOBAN N Ot 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 W DIABETIC CALF SKINNER 10/28/2018 FRANCINE BOBAN N Ot G47.33 OBSTRUCTIVE SLEEP APNEA (ADULT) (PEDIATR 10/28/2018 FRANCINE, BOBAN N Ot I12.9 HYPERTENSIVE CHRONIC KIDNEY DISEASE W ST 10/28/2018 FRANCINE BOBAN N Ot I25.10 ATHSCL HEART DISEASE OF [place] CORONARY 10/28/2018 FRANCINE BOBNAZARIO N Ot J45.909 UNSPECIFIED ASTHMA, UNCOMPLICATED 10/28/2018 FRANCINE, BOBAN N Ot K25.9 GASTRIC ULCER, UNSP ACUTE OR CHRONIC, 10/28/2018 FRANCINE, BOBAN N Ot K29.50 UNSPECIFIED CHRONIC GASTRITIS WITHOUT BL 10/28/2018 FRANCINE, BOBAN N Ot N18.3 CHRONIC KIDNEY DISEASE, STAGE 3 (MODERAT 10/28/2018 FRANCINE, BOBAN N Ot Z79.4 HALF-WAY (CURRENT) USE OF INSULIN 10/28/2018 FRANCINE, BOBAN N Ot Z79.82 CHIEF MEDICAL OFFICER (CURRENT) USE OF ASPIRIN 11/05/2018 ZIEGLER, PETER J PLUMBING ASSEMBLER INSTALLER Ot E03 .9 HYPOTHYROIDISM, UNSPECIFIED 11/05/2018 MAGDY ZIEGLER APRN Ot E11 .9 TYPE 2 DIABETES MELLITUS WITHOUT COMPLIC 11/05/2018 MAGDY ZIEGLER APRN Ot E78.00 PURE HYPERCHOLESTEROLEMIA, UNSPECIFIED 11/05/2018 MAGDY ZIEGLER APRN Ot F32 .9 MAJOR DEPRESSIVE DISORDER, SINGLE EPISOD 11/05/2018 MAGDY ZIEGLER APRN Ot F41 .9 ANXIETY DISORDER, UNSPECIFIED 11/05/2018 MAGDY ZIEGLER APRN Ot G47.30 SLEEP APNEA, UNSPECIFIED 11/05/2018 MAGDY ZIEGLER APRN Ot I10 ESSENTIAL (PRIMARY) HYPERTENSION 11/05/2018 MAGDY ZIEGLER APRN Ot I25.10 ATHSCL HEART DISEASE OF [place] CORONARY 11/05/2018 MAGDY ZIEGLER APRN Ot I42 .9 CARDIOMYOPATHY, UNSPECIFIED 11/05/2018 MAGDY ZIEGLER APRN Ot J44 .9 CHRONIC OBSTRUCTIVE PULMONARY DISEASE, U 11/05/2018 MAGDY ZIEGLER APRN Ot M32 .9 SYSTEMIC LUPUS ERYTHEMATOSUS, UNSPECIFIE 11/05/2018 MAGDY ZIEGLER APRN Ot R06.02 SHORTNESS OF BREATH 11/05/2018 MAGDY ZIEGLER APRN Ot R07.89 OTHER CHEST PAIN 11/05/2018 MAGDY ZIEGLER APRN Ot Z79.82 CHIEF MEDICAL OFFICER (CURRENT) USE OF ASPIRIN 11/05/2018 MAGDY ZIEGLER APRN Ot Z79.84 CHIEF MEDICAL OFFICER (CURRENT) USE OF ORAL HYPOGLYC 11/05/2018 MAGDY ZIEGLER APRN Ot Z82.49 FAMILY HX OF ISCHEM HEART DIS AND OTH DI 11/05/2018 MAGDY ZIEGLER APRN Ot Z87.440 PERSONAL HISTORY OF URINARY (TRACT) INFE 11/05/2018 MAGDY ZIEGLER APRN Ot Z88 .0 ALLERGY STATUS TO PENICILLIN 11/05/2018 MAGDY ZIEGLER APRN Ot Z88 .5 ALLERGY STATUS TO NARCOTIC AGENT STATUS 11/05/2018 MAGDY ZIEGLER APRN Ot Z88 .8 ALLERGY STATUS TO OTH DRUG/MEDS/BIOL SUB 11/05/2018 MAGDY ZIEGLER APRN Ot Z90.49 ACQUIRED ABSENCE OF OTHER SPECIFIED PART 11/05/2018 MAGDY ZIEGLER APRN Ot Z95 .5 PRESENCE OF CORONARY ANGIOPLASTY IMPLANT 11/05/2018 MAGDY ZIEGLER APRN Ot Z99.81 DEPENDENCE ON SUPPLEMENTAL OXYGEN 12/12/2018 FRANCINESABRINAAN N Ot D50.9 IRON DEFICIENCY ANEMIA, UNSPECIFIED 12/12/2018 FRANCINESABRINAAN N Ot E03.9 HYPOTHYROIDISM, UNSPECIFIED 12/12/2018 FRANCINE, BOBAN N Ot 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 W DIABETIC CALF SKINNER 12/12/2018 FRANCINE, BOBAN N Ot G47.33 OBSTRUCTIVE SLEEP APNEA (ADULT) (PEDIATR 12/12/2018 FRANCINE, BOBAN N Ot I12.9 HYPERTENSIVE CHRONIC KIDNEY DISEASE W ST 12/12/2018 FRANCINE, BOBAN N Ot I25.10 ATHSCL HEART DISEASE OF [place] CORONARY 12/12/2018 FRANCINE BOBAN N Ot J45.909 UNSPECIFIED ASTHMA, UNCOMPLICATED 12/12/2018 FRANCINE, BOBAN N Ot K25.9 GASTRIC ULCER, UNSP ACUTE OR CHRONIC, 12/12/2018 FRANCINE BOBAN N Ot K29.50 UNSPECIFIED CHRONIC GASTRITIS WITHOUT BL 12/12/2018 FRANCINENORA N Ot N18.3 CHRONIC KIDNEY DISEASE, STAGE 3 (MODERAT 12/12/2018 SABRINA ESCAMILLAAN N Ot Z79.4 HALF-WAY (CURRENT) USE OF INSULIN 12/12/2018 NORA ESCAMILLA N Ot Z79.82 HALF-WAY (CURRENT) USE OF ASPIRIN 12/13/2018 FRANCINE BOBAN N Ot D50.9 IRON DEFICIENCY ANEMIA, UNSPECIFIED 12/13/2018 FRANCINE BOBAN N Ot E03.9 HYPOTHYROIDISM, UNSPECIFIED 12/13/2018 FRANCINESABRINAAN N Ot 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 W DIABETIC CALF SKINNER 12/13/2018 FRANCINE, BOBAN N Ot G47.33 OBSTRUCTIVE SLEEP APNEA (ADULT) (PEDIATR 12/13/2018 FRANCINE, BOBAN N Ot I12.9 HYPERTENSIVE CHRONIC KIDNEY DISEASE W ST 12/13/2018 FRANCINE BOBAN N Ot I25.10 ATHSCL HEART DISEASE OF [place] CORONARY 12/13/2018 FRANCINE, BOBAN N Ot J45.909 UNSPECIFIED ASTHMA, UNCOMPLICATED 12/13/2018 FRANCINE, BOBAN N Ot K25.9 GASTRIC ULCER, UNSP ACUTE OR CHRONIC, 12/13/2018 FRANCINE, BOBAN N Ot K29.50 UNSPECIFIED CHRONIC GASTRITIS WITHOUT BL 12/13/2018 FRANCINE, BOBAN N Ot N18.3 CHRONIC KIDNEY DISEASE, STAGE 3 (MODERAT 12/13/2018 FRANCINE BOBAN N Ot Z79.4 HALF-WAY (CURRENT) USE OF INSULIN 12/13/2018 FRANCINE, BOBAN N Ot Z79.82 CHIEF MEDICAL OFFICER (CURRENT) USE OF ASPIRIN 12/18/2018 FRANCINE BOBAN N Ot D50.9 IRON DEFICIENCY ANEMIA, UNSPECIFIED 12/18/2018 FRANCINE BOBAN N Ot E03.9 HYPOTHYROIDISM, UNSPECIFIED 12/18/2018 FRANCINE, BOBAN N Ot 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 W DIABETIC CALF SKINNER 12/18/2018 FRANCINE BOBAN N Ot G47.33 OBSTRUCTIVE SLEEP APNEA (ADULT) (PEDIATR 12/18/2018 FRANCINE BOBAN N Ot I12.9 HYPERTENSIVE CHRONIC KIDNEY DISEASE W ST 12/18/2018 FRANCINE BOBAN N Ot I25.10 ATHSCL HEART DISEASE OF [place] CORONARY 12/18/2018 FRANCINE BOBAN N Ot J45.909 UNSPECIFIED ASTHMA, UNCOMPLICATED 12/18/2018 FRANCINE BOBAN N Ot K25.9 GASTRIC ULCER, UNSP ACUTE OR CHRONIC, 12/18/2018 FRANCINE, BOBAN N Ot K29.50 UNSPECIFIED CHRONIC GASTRITIS WITHOUT BL 12/18/2018 FRANCINE BOBAN N Ot N18.3 CHRONIC KIDNEY DISEASE, STAGE 3 (MODERAT 12/18/2018 FRANCINE BOBAN N Ot Z79.4 CHIEF MEDICAL OFFICER (CURRENT) USE OF INSULIN 12/18/2018 FRANCINE BOBAN N Ot Z79.82 HALF-WAY (CURRENT) USE OF ASPIRIN 12/31/2018 LOUISE LAND APRN Ot N30.00 ACUTE CYSTITIS WITHOUT HEMATURIA 12/31/2018 IVORY LARKIN, DAVIN Maciel Ot E03.9 HYPOTHYROIDISM, UNSPECIFIED 12/31/2018 IVORY LARKIN, DAVIN Maciel Ot E11.9 TYPE 2 DIABETES MELLITUS WITHOUT COMPLIC 12/31/2018 IVORY LARKIN, DAVIN Maciel Ot E78.00 PURE HYPERCHOLESTEROLEMIA, UNSPECIFIED 12/31/2018 IVORY LARKIN, DAVIN Maciel Ot F32.9 MAJOR DEPRESSIVE DISORDER, SINGLE EPISOD 12/31/2018 IVORY LARKIN, DAVIN Maciel Ot F41.9 ANXIETY DISORDER, UNSPECIFIED 12/31/2018 DAVIN DODSON MD, Ot G47.30 SLEEP APNEA, UNSPECIFIED 12/31/2018 DAVIN DODSON MD, Ot I10 ESSENTIAL (PRIMARY) HYPERTENSION 12/31/2018 DAVIN DODSON MD, Ot I25.10 ATHSCL HEART DISEASE OF [place] CORONARY 12/31/2018 DAVIN DODSON MD, Ot J44.9 CHRONIC OBSTRUCTIVE PULMONARY DISEASE, U 12/31/2018 DAVIN DODSON MD, Ot N39.0 URINARY TRACT INFECTION, SITE NOT SPECIF 12/31/2018 DAVIN DODSON MD, Ot R10.84 GENERALIZED ABDOMINAL PAIN 12/31/2018 DAVIN DODSON MD, Ot R11.2 NAUSEA WITH VOMITING, UNSPECIFIED 12/31/2018 DAVIN DODSON MD, Ot R19.7 DIARRHEA, UNSPECIFIED 12/31/2018 DAVIN DODSON MD, Ot Z79.4 HALF-WAY (CURRENT) USE OF INSULIN 12/31/2018 DAVIN DODSON MD, Ot Z79.51 CHIEF MEDICAL OFFICER (CURRENT) USE OF INHALED STERO 12/31/2018 DAVIN DODSON MD, Ot Z79.82 HALF-WAY (CURRENT) USE OF ASPIRIN 12/31/2018 DAVIN DODSON MD, Ot Z82.49 FAMILY HX OF [place]HE[place] HEART DIS AND OTH DI 12/31/2018 DAVIN DODSON MD, Ot Z87.440 PERSONAL HISTORY OF URINARY (TRACT) INFE 12/31/2018 DAVIN DODSON MD, Ot Z88.0 ALLERGY STATUS TO PENICILLIN 12/31/2018 DAVIN DODSON MD, Ot Z88.5 ALLERGY STATUS TO NARCOTIC AGENT STATUS 12/31/2018 DAVIN DODSON MD, Ot Z88.6 ALLERGY STATUS TO ANALGESIC AGENT STATUS 12/31/2018 DAVIN DODSON MD, Ot Z88.8 ALLERGY STATUS TO OTH DRUG/MEDS/BIOL SUB 12/31/2018 DAVIN DODSON MD, Ot Z90.49 ACQUIRED ABSENCE OF OTHER SPECIFIED PART 12/31/2018 BRUEGGEMANN MD, DAVIN T Ot Z95.5 PRESENCE OF CORONARY ANGIOPLASTY IMPLANT 12/31/2018 DAVIN DODSON MD Ot Z99.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 01/02/2019 KIYA HERMAN MD R Ot Z29. 8 ENCOUNTER FOR OTHER SPECIFIED PROPHYLACT 01/02/2019 KIYA HERMAN MD Ot Z29. 8 ENCOUNTER FOR OTHER SPECIFIED PROPHYLACT 01/03/2019 LOUISE LAND PLUMBING ASSEMBLER INSTALLER Ot N30.00 ACUTE CYSTITIS WITHOUT HEMATURIA 01/04/2019 DAVIN DODSON MD Ot E03.9 HYPOTHYROIDISM, UNSPECIFIED 01/04/2019 DAVIN DODSON MD Ot E11.9 TYPE 2 DIABETES MELLITUS WITHOUT COMPLIC 01/04/2019 DAVIN DODSON MD Ot E78.00 PURE HYPERCHOLESTEROLEMIA, UNSPECIFIED 01/04/2019 DAVIN DODSON MD Ot F32.9 MAJOR DEPRESSIVE DISORDER, SINGLE EPISOD 01/04/2019 DAVIN DODSON MD Ot F41.9 ANXIETY DISORDER, UNSPECIFIED 01/04/2019 DAVIN DODSON MD Ot G47.30 SLEEP APNEA, UNSPECIFIED 01/04/2019 DAVIN DODSON MD Ot I10 ESSENTIAL (PRIMARY) HYPERTENSION 01/04/2019 DAVIN DODSON MD, Ot I25.10 ATHSCL HEART DISEASE OF [place] CORONARY 01/04/2019 DAVIN DODSON MD, Ot J44.9 CHRONIC OBSTRUCTIVE PULMONARY DISEASE, U 01/04/2019 DAVIN DODSON MD Ot N39.0 URINARY TRACT INFECTION, SITE NOT SPECIF 01/04/2019 DAVIN DODSON MD Ot R10.84 GENERALIZED ABDOMINAL PAIN 01/04/2019 DAVIN DODSON MD, Ot R11.2 NAUSEA WITH VOMITING, UNSPECIFIED 01/04/2019 DAVIN DODSON MD Ot R19.7 DIARRHEA, UNSPECIFIED 01/04/2019 DAVIN DODSON MD, Ot Z79.4 CHIEF MEDICAL OFFICER (CURRENT) USE OF INSULIN 01/04/2019 DAVIN DODSON MD Ot Z79.51 CHIEF MEDICAL OFFICER (CURRENT) USE OF INHALED STERO 01/04/2019 DAVIN DODSON MD, Ot Z79.82 HALF-WAY (CURRENT) USE OF ASPIRIN 01/04/2019 DAVIN DODSON MD, Ot Z82.49 FAMILY HX OF I[place]HE[place] HEART DIS AND OTH DI 01/04/2019 DAVIN DODSON MD, Ot Z87.440 PERSONAL HISTORY OF URINARY (TRACT) INFE 01/04/2019 DAVIN DODSON MD, Ot Z88.0 ALLERGY STATUS TO PENICILLIN 01/04/2019 DAVIN DODSON MD, Ot Z88.5 ALLERGY STATUS TO NARCOTIC AGENT STATUS 01/04/2019 DAVIN DODSON MD, Ot Z88.6 ALLERGY STATUS TO ANALGESIC AGENT STATUS 01/04/2019 DAVIN DODSON MD, Ot Z88.8 ALLERGY STATUS TO OTH DRUG/MEDS/BIOL SUB 01/04/2019 DAVIN DODSON MD, Ot Z90.49 ACQUIRED ABSENCE OF OTHER SPECIFIED PART 01/04/2019 DAVIN DODSON MD, Ot Z95.5 PRESENCE OF CORONARY ANGIOPLASTY IMPLANT 01/04/2019 DAVIN DODSON MD, Ot Z99.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 01/31/2019 Ot I51.7 CARD IOMEGALY 01/31/2019 Ot R06.02 VENKATA RTNESS OF BREATH 01/31/2019 Ot R07.81 PLE URODYNIA 01/31/2019 Ot R09.89 OTH SYMPTOMS AND SIGNS INVOLVING THE CIR 02/28/2019 MAGDY ZIEGLER APRN Ot E03 .9 HYPOTHYROIDISM, UNSPECIFIED 02/28/2019 MAGDY ZIEGLER APRN Ot E11 .9 TYPE 2 DIABETES MELLITUS WITHOUT COMPLIC 02/28/2019 MAGDY ZIEGLER APRN Ot E78.00 PURE HYPERCHOLESTEROLEMIA, UNSPECIFIED 02/28/2019 MAGDY ZIEGLER APRN Ot F32 .9 MAJOR DEPRESSIVE DISORDER, SINGLE EPISOD 02/28/2019 MAGDY ZIEGLER APRN Ot F41 .9 ANXIETY DISORDER, UNSPECIFIED 02/28/2019 MAGDY ZIEGLER APRN Ot I10 ESSENTIAL (PRIMARY) HYPERTENSION 02/28/2019 MAGDY ZIEGLER APRN Ot I25.10 ATHSCL HEART DISEASE OF [place] CORONARY 02/28/2019 MAGDY ZIEGLER APRN Ot J44 .9 CHRONIC OBSTRUCTIVE PULMONARY DISEASE, U 02/28/2019 MAGDY ZIEGLER APRN Ot R10.11 RIGHT UPPER QUADRANT PAIN 02/28/2019 MAGDY ZIEGLER APRN Ot Z79 .4 HALF-WAY (CURRENT) USE OF INSULIN 02/28/2019 MAGDY ZIEGLER APRN Ot Z79.51 CHIEF MEDICAL OFFICER (CURRENT) USE OF INHALED STERO 02/28/2019 MAGDY ZIEGLER APRN Ot Z79.82 HALF-WAY (CURRENT) USE OF ASPIRIN 02/28/2019 MAGDY ZIEGLER APRN Ot Z82.49 FAMILY HX OF ISCHEM HEART DIS AND OTH DI 02/28/2019 MAGDY ZIEGLER APRN Ot Z87.440 PERSONAL HISTORY OF URINARY (TRACT) INFE 02/28/2019 MAGDY ZIEGLER APRN Ot Z88 .0 ALLERGY STATUS TO PENICILLIN 02/28/2019 MAGDY ZIEGLER APRN Ot Z88 .5 ALLERGY STATUS TO NARCOTIC AGENT STATUS 02/28/2019 MAGDY ZIEGLER APRN Ot Z88 .6 ALLERGY STATUS TO ANALGESIC AGENT STATUS 02/28/2019 MAGDY ZIEGLER APRN Ot Z88 .8 ALLERGY STATUS TO OT DRUG/MEDS/BIOL SUB 02/28/2019 MAGDY ZIEGLER APRN Ot Z90.49 ACQUIRED ABSENCE OF OTHER SPECIFIED PART 02/28/2019 MAGDY ZIEGLER APRN Ot Z95 .5 PRESENCE OF CORONARY ANGIOPLASTY IMPLANT 03/03/2019 MAGDY ZIEGLER APRN Ot E03 .9 HYPOTHYROIDISM, UNSPECIFIED 03/03/2019 MAGDY ZIEGLER APRN Ot E11 .9 TYPE 2 DIABETES MELLITUS WITHOUT COMPLIC 03/03/2019 MAGDY ZIEGLER APRN Ot E78.00 PURE HYPERCHOLESTEROLEMIA, UNSPECIFIED 03/03/2019 MAGDY ZIEGLER APRN Ot F32 .9 MAJOR DEPRESSIVE DISORDER, SINGLE EPISOD 03/03/2019 MAGDY ZIEGLER APRN Ot F41 .9 ANXIETY DISORDER, UNSPECIFIED 03/03/2019 MAGDY ZIEGLER APRN Ot I10 ESSENTIAL (PRIMARY) HYPERTENSION 03/03/2019 MAGDY ZIEGLER APRN Ot I25.10 ATHSCL HEART DISEASE OF [place] CORONARY 03/03/2019 MAGDY ZIEGLER APRN Ot J44 .9 CHRONIC OBSTRUCTIVE PULMONARY DISEASE, U 03/03/2019 MAGDY ZIEGLER APRN Ot R10.11 RIGHT UPPER QUADRANT PAIN 03/03/2019 MAGDY ZIEGLER APRN Ot Z79 .4 CHIEF MEDICAL OFFICER (CURRENT) USE OF INSULIN 03/03/2019 MAGDY ZIEGLER APRN Ot Z79.51 CHIEF MEDICAL OFFICER (CURRENT) USE OF INHALED STERO 03/03/2019 MAGDY ZIEGLER APRN Ot Z79.82 HALF-WAY (CURRENT) USE OF ASPIRIN 03/03/2019 MAGDY ZIEGLER APRN Ot Z82.49 FAMILY HX OF I[place]HE[place] HEART DIS AND OTH DI 03/03/2019 MAGDY ZIEGLER APRN Ot Z87.440 PERSONAL HISTORY OF URINARY (TRACT) INFE 03/03/2019 MAGDY ZIEGLER APRN Ot Z88 .0 ALLERGY STATUS TO PENICILLIN 03/03/2019 MAGDY ZIEGLER APRN Ot Z88 .5 ALLERGY STATUS TO NARCOTIC AGENT STATUS 03/03/2019 MAGDY ZIEGLER APRN Ot Z88 .6 ALLERGY STATUS TO ANALGESIC AGENT STATUS 03/03/2019 MAGDY ZIEGLER APRN Ot Z88 .8 ALLERGY STATUS TO OTH DRUG/MEDS/BIOL SUB 03/03/2019 MAGDY ZIEGLER APRN Ot Z90.49 ACQUIRED ABSENCE OF OTHER SPECIFIED PART 03/03/2019 MAGDY ZIEGLER APRN Ot Z95 .5 PRESENCE OF CORONARY ANGIOPLASTY IMPLANT 03/04/2019 Ot I51.7 CARD IOMEGALY 03/04/2019 Ot R06.02 VENKATA RTNESS OF BREATH 03/04/2019 Ot R07.81 PLE URODYNIA 03/04/2019 Ot R09.89 OTH SYMPTOMS AND SIGNS INVOLVING THE CIR 03/06/2019 MAGDY ZIEGLER APRN Ot E03 .9 HYPOTHYROIDISM, UNSPECIFIED 03/06/2019 MAGDY ZIEGLER APRN Ot E11 .9 TYPE 2 DIABETES MELLITUS WITHOUT COMPLIC 03/06/2019 MAGDY ZIEGLER APRN Ot E78.00 PURE HYPERCHOLESTEROLEMIA, UNSPECIFIED 03/06/2019 MAGDY ZIEGLER APRN Ot F32 .9 MAJOR DEPRESSIVE DISORDER, SINGLE EPISOD 03/06/2019 MAGDY ZIEGLER APRN Ot F41 .9 ANXIETY DISORDER, UNSPECIFIED 03/06/2019 MAGDY ZIEGLER APRN Ot I10 ESSENTIAL (PRIMARY) HYPERTENSION 03/06/2019 MAGDY ZIEGLER APRN Ot I25.10 ATHSCL HEART DISEASE OF [place] CORONARY 03/06/2019 MAGDY ZIEGLER APRN Ot J44 .9 CHRONIC OBSTRUCTIVE PULMONARY DISEASE, U 03/06/2019 MAGDY ZIEGLER APRN Ot R10.11 RIGHT UPPER QUADRANT PAIN 03/06/2019 MAGDY ZIEGLER APRN Ot Z79 .4 CHIEF MEDICAL OFFICER (CURRENT) USE OF INSULIN 03/06/2019 MAGDY ZIEGLER APRN Ot Z79.51 CHIEF MEDICAL OFFICER (CURRENT) USE OF INHALED STERO 03/06/2019 MAGDY ZIEGLER APRN Ot Z79.82 HALF-WAY (CURRENT) USE OF ASPIRIN 03/06/2019 MAGDY ZIEGLER APRN Ot Z82.49 FAMILY HX OF ISCHEM HEART DIS AND OTH DI 03/06/2019 MAGDY ZIEGLER APRN Ot Z87.440 PERSONAL HISTORY OF URINARY (TRACT) INFE 03/06/2019 MAGDY ZIEGLER APRN Ot Z88 .0 ALLERGY STATUS TO PENICILLIN 03/06/2019 MAGDY ZIEGLER APRN Ot Z88 .5 ALLERGY STATUS TO NARCOTIC AGENT STATUS 03/06/2019 MAGDY ZIEGLER APRN Ot Z88 .6 ALLERGY STATUS TO ANALGESIC AGENT STATUS 03/06/2019 MAGDY ZIEGLER APRN Ot Z88 .8 ALLERGY STATUS TO OTH DRUG/MEDS/BIOL SUB 03/06/2019 MAGDY ZIEGLER APRN Ot Z90.49 ACQUIRED ABSENCE OF OTHER SPECIFIED PART 03/06/2019 MAGDY ZIEGLER APRN Ot Z95 .5 PRESENCE OF CORONARY ANGIOPLASTY IMPLANT 03/22/2019 BATSHEVA LARKIN, KIYA R Ot 599. 0 URIN TRACT INFECTION NOS 03/22/2019 MARIPOSA SANCHEZ PLUMBING ASSEMBLER INSTALLER Ot J45.909 UNSPECIFIED ASTHMA, UNCOMPLICATED 03/22/2019 MARIPOSA SANCHEZ PLUMBING ASSEMBLER INSTALLER Ot J98.4 OTHER DISORDERS OF LUNG 03/22/2019 MARIPOSA SANCHEZ PLUMBING ASSEMBLER INSTALLER Ot R06.02 SHORTNESS OF BREATH 03/22/2019 BATSHEVA LARKIN, KIYA R Ot D64. 9 ANEMIA, UNSPECIFIED 03/22/2019 MARIPOSA SANCHEZ PLUMBING ASSEMBLER INSTALLER Ot J98.4 OTHER DISORDERS OF LUNG 03/22/2019 MARIPOSA SANCHEZ PLUMBING ASSEMBLER INSTALLER Ot R06.02 SHORTNESS OF BREATH 03/22/2019 MARIPOSA SANCHEZ PLUMBING ASSEMBLER INSTALLER Ot R09.02 HYPOXEMIA 03/22/2019 YARELISHARLA MCGHEE MD Ot E03.9 HYPOTHYROIDISM, UNSPECIFIED 03/22/2019 SHARLA DOWNS MD Ot E11.9 TYPE 2 DIABETES MELLITUS WITHOUT COMPLIC 03/22/2019 SHARLA DOWNS MD Ot E78.00 PURE HYPERCHOLESTEROLEMIA, UNSPECIFIED 03/22/2019 SHARLA DOWNS MD Ot F32.9 MAJOR DEPRESSIVE DISORDER, SINGLE EPISOD 03/22/2019 SHARLA DOWNS MD, Ot F41.9 ANXIETY DISORDER, UNSPECIFIED 03/22/2019 SHARLA DOWNS MD Ot G43.909 MIGRAINE, UNSP, NOT INTRACTABLE, WITHOUT 03/22/2019 SHARLA DOWNS MD Ot G47.30 SLEEP APNEA, UNSPECIFIED 03/22/2019 SHARLA DOWNS MD, Ot I10 ESSENTIAL (PRIMARY) HYPERTENSION 03/22/2019 SHARLA DOWNS MD Ot I25.10 ATHSCL HEART DISEASE OF [place] CORONARY 03/22/2019 SHARLA DOWNS MD Ot J44.9 CHRONIC OBSTRUCTIVE PULMONARY DISEASE, U 03/22/2019 SHARLA DOWNS MD Ot R07.89 OTHER CHEST PAIN 03/22/2019 SHARLA DOWNS MD Ot R51 HEADACHE 03/22/2019 SHARLA DOWNS MD, Ot Z79.4 CHIEF MEDICAL OFFICER (CURRENT) USE OF INSULIN 03/22/2019 SHARLA DOWNS MD Ot Z79.51 CHIEF MEDICAL OFFICER (CURRENT) USE OF INHALED STERO 03/22/2019 SHARLA DOWNS MD Ot Z79.82 CHIEF MEDICAL OFFICER (CURRENT) USE OF ASPIRIN 03/22/2019 SHARLA DOWNS MD Ot Z82.49 FAMILY HX OF ISCHEM HEART DIS AND OTH DI 03/22/2019 SHARLA DOWNS MD Ot Z87.440 PERSONAL HISTORY OF URINARY (TRACT) INFE 03/22/2019 SHARLA DOWNS MD Ot Z88.0 ALLERGY STATUS TO PENICILLIN 03/22/2019 SHARLA DOWNS MD Ot Z88.5 ALLERGY STATUS TO NARCOTIC AGENT STATUS 03/22/2019 SHARLA DOWNS MD Ot Z88.8 ALLERGY STATUS TO OTH DRUG/MEDS/BIOL SUB 03/22/2019 SHARLA DOWNS MD Ot Z90.49 ACQUIRED ABSENCE OF OTHER SPECIFIED PART 03/22/2019 SHARLA DOWNS MD Ot Z95.5 PRESENCE OF CORONARY ANGIOPLASTY IMPLANT 03/22/2019 SHARLA DOWNS MD Ot Z99.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 03/25/2019 SHARLA DOWNS MD, Ot E03.9 HYPOTHYROIDISM, UNSPECIFIED 03/25/2019 SHARLA DOWNS MD Ot E11.9 TYPE 2 DIABETES MELLITUS WITHOUT COMPLIC 03/25/2019 SHARLA DOWNS MD Ot E78.00 PURE HYPERCHOLESTEROLEMIA, UNSPECIFIED 03/25/2019 SHARLA DOWNS MD, Ot F32.9 MAJOR DEPRESSIVE DISORDER, SINGLE EPISOD 03/25/2019 SHARLA DOWNS MD, Ot F41.9 ANXIETY DISORDER, UNSPECIFIED 03/25/2019 SHARLA DOWNS MD, Ot G43.909 MIGRAINE, UNSP, NOT INTRACTABLE, WITHOUT 03/25/2019 SHARLA DOWNS MD Ot G47.30 SLEEP APNEA, UNSPECIFIED 03/25/2019 SHARLA DOWNS MD Ot I10 ESSENTIAL (PRIMARY) HYPERTENSION 03/25/2019 SHARLA DOWNS MD, Ot I25.10 ATHSCL HEART DISEASE OF [place] CORONARY 03/25/2019 SHARLA DOWNS MD, Ot J44.9 CHRONIC OBSTRUCTIVE PULMONARY DISEASE, U 03/25/2019 SHARLA DOWNS MD, Ot R07.89 OTHER CHEST PAIN 03/25/2019 SHARLA DOWNS MD Ot R51 HEADACHE 03/25/2019 SHARLA DOWNS MD Ot Z79.4 CHIEF MEDICAL OFFICER (CURRENT) USE OF INSULIN 03/25/2019 SHARLA DOWNS MD Ot Z79.51 CHIEF MEDICAL OFFICER (CURRENT) USE OF INHALED STERO 03/25/2019 SHARLA DOWNS MD Ot Z79.82 CHIEF MEDICAL OFFICER (CURRENT) USE OF ASPIRIN 03/25/2019 SHARLA DOWNS MD, Ot Z82.49 FAMILY HX OF ISCHEM HEART DIS AND OTH DI 03/25/2019 SHARLA DOWNS MD, Ot Z87.440 PERSONAL HISTORY OF URINARY (TRACT) INFE 03/25/2019 SHARLA DOWNS MD, Ot Z88.0 ALLERGY STATUS TO PENICILLIN 03/25/2019 YARELI MD, SHARLA D Ot Z88.5 ALLERGY STATUS TO NARCOTIC AGENT STATUS 03/25/2019 SHARLA DOWNS MD, Ot Z88.8 ALLERGY STATUS TO OTH DRUG/MEDS/BIOL SUB 03/25/2019 SHARLA DOWNS MD, Ot Z90.49 ACQUIRED ABSENCE OF OTHER SPECIFIED PART 03/25/2019 SHARLA DOWNS MD Ot Z95.5 PRESENCE OF CORONARY ANGIOPLASTY IMPLANT 03/25/2019 SHARLA DOWNS MD Ot Z99.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 03/28/2019 SHARLA DOWNS MD Ot E03.9 HYPOTHYROIDISM, UNSPECIFIED 03/28/2019 SHARLA DOWNS MD Ot E11.9 TYPE 2 DIABETES MELLITUS WITHOUT COMPLIC 03/28/2019 SHARLA DOWNS MD, Ot E78.00 PURE HYPERCHOLESTEROLEMIA, UNSPECIFIED 03/28/2019 SHARLA DOWNS MD, Ot F32.9 MAJOR DEPRESSIVE DISORDER, SINGLE EPISOD 03/28/2019 SHARLA DOWNS MD, Ot F41.9 ANXIETY DISORDER, UNSPECIFIED 03/28/2019 SHARLA DOWNS MD Ot G43.909 MIGRAINE, UNSP, NOT INTRACTABLE, WITHOUT 03/28/2019 SHARLA DOWNS MD Ot G47.30 SLEEP APNEA, UNSPECIFIED 03/28/2019 SHARLA DOWNS MD Ot I10 ESSENTIAL (PRIMARY) HYPERTENSION 03/28/2019 SHARLA DOWNS MD, Ot I25.10 ATHSCL HEART DISEASE OF [place] CORONARY 03/28/2019 SHARLA DOWNS MD, Ot J44.9 CHRONIC OBSTRUCTIVE PULMONARY DISEASE, U 03/28/2019 SHARLA DOWNS MD Ot R07.89 OTHER CHEST PAIN 03/28/2019 SHARLA DOWNS MD Ot R51 HEADACHE 03/28/2019 SHARLA DOWNS MD, Ot Z79.4 CHIEF MEDICAL OFFICER (CURRENT) USE OF INSULIN 03/28/2019 SHARLA DOWNS MD Ot Z79.51 CHIEF MEDICAL OFFICER (CURRENT) USE OF INHALED STERO 03/28/2019 SHARLA DOWNS MD Ot Z79.82 CHIEF MEDICAL OFFICER (CURRENT) USE OF ASPIRIN 03/28/2019 SHARLA DOWNS MD Ot Z82.49 FAMILY HX OF ISCHEM HEART DIS AND OTH DI 03/28/2019 SHARLA DOWNS MD, Ot Z87.440 PERSONAL HISTORY OF URINARY (TRACT) INFE 03/28/2019 SHARLA DOWNS MD, Ot Z88.0 ALLERGY STATUS TO PENICILLIN 03/28/2019 SHARLA DOWNS MD, Ot Z88.5 ALLERGY STATUS TO NARCOTIC AGENT STATUS 03/28/2019 SHARLA DOWNS MD, Ot Z88.8 ALLERGY STATUS TO OTH DRUG/MEDS/BIOL SUB 03/28/2019 SHARLA DOWNS MD, Ot Z90.49 ACQUIRED ABSENCE OF OTHER SPECIFIED PART 03/28/2019 SHARLA DOWNS MD, Ot Z95.5 PRESENCE OF CORONARY ANGIOPLASTY IMPLANT 03/28/2019 SHARLA ODWNS MD, Ot Z99.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 03/30/2019 NORA ESCAMILLA Ot D50.9 IRON DEFICIENCY ANEMIA, UNSPECIFIED 03/30/2019 NORA ESCAMILLA Ot E03.9 HYPOTHYROIDISM, UNSPECIFIED 03/30/2019 NORA ESCAMILLA Ot 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 W DIABETIC CALF SKINNER 03/30/2019 NORA ESCAMILLA Ot G47.33 OBSTRUCTIVE SLEEP APNEA (ADULT) (PEDIATR 03/30/2019 NORA ESCAMILLA Ot I12.9 HYPERTENSIVE CHRONIC KIDNEY DISEASE W ST 03/30/2019 NORA ESCAMILLA Ot I25.10 ATHSCL HEART DISEASE OF [place] CORONARY 03/30/2019 NORA ESCAMILLA Ot J45.909 UNSPECIFIED ASTHMA, UNCOMPLICATED 03/30/2019 NORA ESCAMILLA Ot K25.9 GASTRIC ULCER, UNSP ACUTE OR CHRONIC, 03/30/2019 NORA ESCAMILLA Ot K29.50 UNSPECIFIED CHRONIC GASTRITIS WITHOUT BL 03/30/2019 NORA ESCAMILLA Ot N18.3 CHRONIC KIDNEY DISEASE, STAGE 3 (MODERAT 03/30/2019 NORA ESCAMILLA Ot Z79.4 CHIEF MEDICAL OFFICER (CURRENT) USE OF INSULIN 03/30/2019 NORA ESCAMILLA Ot Z79.82 CHIEF MEDICAL OFFICER (CURRENT) USE OF ASPIRIN 04/11/2019 TO GRAY MD Ot A08. 4 VIRAL INTESTINAL INFECTION, UNSPECIFIED 04/11/2019 TO GRAY MD Ot E03. 9 HYPOTHYROIDISM, UNSPECIFIED 04/11/2019 TO GRAY MD Ot E11. 9 TYPE 2 DIABETES MELLITUS WITHOUT COMPLIC 04/11/2019 TO GRAY MD Ot E78. 00 PURE HYPERCHOLESTEROLEMIA, UNSPECIFIED 04/11/2019 TO GRAY MD, Ot F32. 9 MAJOR DEPRESSIVE DISORDER, SINGLE EPISOD 04/11/2019 TO GRAY MD, Ot F41. 9 ANXIETY DISORDER, UNSPECIFIED 04/11/2019 TO GRAY MD, Ot G47. 30 SLEEP APNEA, UNSPECIFIED 04/11/2019 TO GRAY MD Ot I10 ESSENTIAL (PRIMARY) HYPERTENSION 04/11/2019 TO GRAY MD, Ot I25. 10 ATHSCL HEART DISEASE OF [place] CORONARY 04/11/2019 TO GRAY MD, Ot M79. 18 MYALGIA, OTHER SITE 04/11/2019 TO GRAY MD Ot R51 HEADACHE 04/11/2019 TO GRAY MD, Ot Z79. 4 CHIEF MEDICAL OFFICER (CURRENT) USE OF INSULIN 04/11/2019 TO GRAY MD, Ot Z79. 51 HALF-WAY (CURRENT) USE OF INHALED STERO 04/11/2019 TO GRAY MD, Ot Z79. 82 HALF-WAY (CURRENT) USE OF ASPIRIN 04/11/2019 TO GRAY MD, Ot Z82. 49 FAMILY HX OF ISCHEM HEART DIS AND OTH DI 04/11/2019 TO GRAY MD, Ot Z88. 0 ALLERGY STATUS TO PENICILLIN 04/11/2019 TO GRAY MD, Ot Z88. 5 ALLERGY STATUS TO NARCOTIC AGENT STATUS 04/11/2019 TO GRAY MD, Ot Z88. 8 ALLERGY STATUS TO OT DRUG/MEDS/BIOL SUB 04/11/2019 TO GRAY MD, Ot Z95. 5 PRESENCE OF CORONARY ANGIOPLASTY IMPLANT 04/11/2019 TO GRAY MD Ot Z99. 81 DEPENDENCE ON SUPPLEMENTAL OXYGEN 04/15/2019 NORA ESCAMILLA Ot D50.9 IRON DEFICIENCY ANEMIA, UNSPECIFIED 04/15/2019 NORA ESCAMILLA Ot E03.9 HYPOTHYROIDISM, UNSPECIFIED 04/15/2019 NORA ESCAMILLA Ot 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 W DIABETIC CALF SKINNER 04/15/2019 NORA ESCAMILLA Ot G47.33 OBSTRUCTIVE SLEEP APNEA (ADULT) (PEDIATR 04/15/2019 NORA ESCAMILLA Ot I12.9 HYPERTENSIVE CHRONIC KIDNEY DISEASE W ST 04/15/2019 NORA ESCAMILLA Ot I25.10 ATHSCL HEART DISEASE OF [place] CORONARY 04/15/2019 FRANCINENORA Ot J45.909 UNSPECIFIED ASTHMA, UNCOMPLICATED 04/15/2019 NORA ESCAMILLA Ot K25.9 GASTRIC ULCER, UNSP ACUTE OR CHRONIC, 04/15/2019 NORA ESCAMILLA Ot K29.50 UNSPECIFIED CHRONIC GASTRITIS WITHOUT BL 04/15/2019 NORA ESCAMILLA Ot N18.3 CHRONIC KIDNEY DISEASE, STAGE 3 (MODERAT 04/15/2019 NORA ESCAMILLA Ot Z79.4 HALF-WAY (CURRENT) USE OF INSULIN 04/15/2019 NORA ESCAMILLA Ot Z79.82 CHIE[employer]ICAL OFFICER (CURRENT) USE OF ASPIRIN 04/17/2019 TO GRAY MD Ot A08. 4 VIRAL INTESTINAL INFECTION, UNSPECIFIED 04/17/2019 TO GRAY MD Ot E03. 9 HYPOTHYROIDISM, UNSPECIFIED 04/17/2019 TO GRAY MD Ot E11. 9 TYPE 2 DIABETES MELLITUS WITHOUT COMPLIC 04/17/2019 TO GRAY MD Ot E78. 00 PURE HYPERCHOLESTEROLEMIA, UNSPECIFIED 04/17/2019 TO GRAY MD Ot F32. 9 MAJOR DEPRESSIVE DISORDER, SINGLE EPISOD 04/17/2019 TO GRAY MD Ot F41. 9 ANXIETY DISORDER, UNSPECIFIED 04/17/2019 TO GRAY MD Ot G47. 30 SLEEP APNEA, UNSPECIFIED 04/17/2019 TO GRAY MD Ot I10 ESSENTIAL (PRIMARY) HYPERTENSION 04/17/2019 TO GRAY MD Ot I25. 10 ATHSCL HEART DISEASE OF [place] CORONARY 04/17/2019 TO GRAY MD Ot M79. 18 MYALGIA, OTHER SITE 04/17/2019 TO GRAY MD Ot R51 HEADACHE 04/17/2019 TO GRAY MD Ot Z79. 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 82 HALF-WAY (CURRENT) USE OF ASPIRIN 04/17/2019 TO GRAY MD, Ot Z82. 49 FAMILY HX OF ISCHEM HEART DIS AND OTH DI 04/17/2019 TO GRAY MD, Ot Z88. 0 ALLERGY STATUS TO PENICILLIN 04/17/2019 TO GRAY MD, Ot Z88. 5 ALLERGY STATUS TO NARCOTIC AGENT STATUS 04/17/2019 TO GRAY MD, Ot Z88. 8 ALLERGY STATUS TO OTH DRUG/MEDS/BIOL SUB 04/17/2019 TO GRAY MD, Ot Z95. 5 PRESENCE OF CORONARY ANGIOPLASTY IMPLANT 04/17/2019 TO GRAY MD, Ot Z99. 81 DEPENDENCE ON SUPPLEMENTAL OXYGEN 05/03/2019 NORA ESCAMILLA Ot D50.9 IRON DEFICIENCY ANEMIA, UNSPECIFIED 05/03/2019 NORA ESCAMILLA Ot E03.9 HYPOTHYROIDISM, UNSPECIFIED 05/03/2019 NORA ESCAMILLA Ot 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 W DIABETIC CALF SKINNER 05/03/2019 NORA ESCAMILLA Ot G47.33 OBSTRUCTIVE SLEEP APNEA (ADULT) (PEDIATR 05/03/2019 NORA ESCAMILLA Ot I12.9 HYPERTENSIVE CHRONIC KIDNEY DISEASE W ST 05/03/2019 NORA ESCAMILLA Ot I25.10 ATHSCL HEART DISEASE OF [place] CORONARY 05/03/2019 NORA ESCAMILLA Ot J45.909 UNSPECIFIED ASTHMA, UNCOMPLICATED 05/03/2019 NORA ESCAMILLA Ot K25.9 GASTRIC ULCER, UNSP ACUTE OR CHRONIC, 05/03/2019 NORA ESCAMILLA Ot K29.50 UNSPECIFIED CHRONIC GASTRITIS WITHOUT BL 05/03/2019 NORA ESCAMILLA Ot N18.3 CHRONIC KIDNEY DISEASE, STAGE 3 (MODERAT 05/03/2019 NORA ESCAMILLA Ot Z79.4 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 0 URIN TRACT INFECTION NOS 05/15/2019 MARIPOSA SANCHEZ APRN Ot J45.909 UNSPECIFIED ASTHMA, UNCOMPLICATED 05/15/2019 MARIPOSA SANCHEZ APRN Ot J98.4 OTHER DISORDERS OF LUNG 05/15/2019 MARIPOSA SANCHEZ APRN Ot R06.02 SHORTNESS OF BREATH 05/15/2019 BATSHEVA LARKIN, KIYA R Ot D64. 9 ANEMIA, UNSPECIFIED 05/15/2019 MARIPOSA SANCHEZ APRN Ot J98.4 OTHER DISORDERS OF LUNG 05/15/2019 MARIPOSA SANCHEZ APRN Ot R06.02 SHORTNESS OF BREATH 05/15/2019 MARIPOSA SANCHEZ APRN Ot R09.02 HYPOXEMIA Procedures There is no data. Results Test Result Range Complete blood count (CBC) with automate d white blood cell (WBC) differential - 11/02/15 10:35 Blood leukocytes automated count (number/volume) 11.7 10*3/uL 4.3-11.0 Blood erythrocytes automated count (number/volume) 3.87 10*6/uL 4.35-5.85 Venous blood hemoglobin measurement (mass/volume) 10.6 g/dL 11.5-16.0 Blood hematocrit (volume fraction) 33 % 35-52 Automated erythrocyte mean corpuscular volume 86 [ foz_us] 80-99 Automated erythrocyte mean corpuscular h emoglobin (mass per erythrocyte) 27 pg 25-34 Automated erythrocyte mean corpuscular h emoglobin concentration measurement (mass/volume) 32 g/dL 32-36 Automated erythrocyte distribution width ratio 14. 4 % 10.0- 14.5 Automated blood platelet count (count/volume) 284 10*3/uL 130-400 Automated blood platelet mean volume measurement 10.1 [foz_us] 7.4-10.4 Automated blood neutrophils/100 leukocytes 78 % 42-75 Automated blood lymphocytes/100 leukocytes 16 % 12-44 Blood monocytes/100 leukocytes 4 % 0-12 Automated blood eosinophils/100 leukocytes 2 % 0-10 Automated blood basophils/100 leukocytes 1 % 0-10 Blood neutrophils automated count (number/volume) 9.1 10*3 1.8-7.8 Blood lymphocytes automated count (number/volume) 1.9 10*3 1.0-4.0 Blood monocytes automated count (number/volume) 0. 5 10*3 0.0-1.0 Automated eosinophil count 0.2 10*3/uL 0 .0-0.3 Automated blood basophil count (count/volume) 0.1 10*3/uL 0.0-0.1 Comprehensive metabolic panel - 11/02/15 10:35 Serum or plasma sodium measurement (moles/volume) 132 mmol/L 135-145 Serum or plasma potassium measurement (moles/volume) 4.8 mmol/L 3.6-5.0 Serum or plasma chloride measurement (moles/volume) 101 mmol/L 98-107 Carbon dioxide 18 mmol/L 21-32 Serum or plasma anion gap determination (moles/volume) 13 mmol/L 5-14 Serum or plasma urea nitrogen measurement (mass/volume ) 15 mg/dL 7-18 Serum or plasma creatinine measurement (mass/volume) 1.07 mg/dL 0.60-1.30 Serum or plasma urea nitrogen/creatinine mass ratio 14 NRG Serum or plasma creatinine measurement w ith calculation of estimated glomerular filtration rate 52 NRG Serum or plasma glucose measurement (mass/volume) 235 mg/dL 70-105 Serum or plasma calcium measurement (mass/volume) 9.0 mg/dL 8.5-10.1 Serum or plasma total bilirubin measurement (mass/volu me) 0.2 mg/dL 0.1-1.0 Serum or plasma alkaline phosphatase shabana surement (enzymatic activity/volume) 120 U/L 40-136 Serum or plasma aspartate aminotransfera se measurement (enzymatic activity/volume) 26 U/L 5-34 Serum or plasma alanine aminotransferase measurement (enzymatic activity/volume) 33 U/L 0-55 Serum or plasma protein measurement (mass/volume) 7.1 g/dL 6.4-8.2 Serum or plasma albumin measurement (mass/volume) 4.0 g/dL 3.2-4.5 Serum or plasma troponin i.cardiac measu rement (mass/volume) - 11/02/15 10:35 Serum or plasma troponin i.cardiac measurement (mass/v olume) < ng/mL <0.30 Serum or plasma lithium measurement (mol es/volume) - 11/02/15 10:35 BNP level 97.7 pg/mL <100.0 Fibrin D-dimer FEU measurement in platel et poor plasma (mass/volume) - 11/02/15 10:35 Fibrin D-dimer FEU measurement in platelet poor plasma (mass/volume) 0.29 ug/mL 0.00-0.49 Serum or plasma folate measurement (mass /volume) - 11/05/15 11:09 Serum or plasma folate measurement (mass/volume) 1 9.6 % 1.5- 24.0 Serum iron and total iron binding capaci ty panel - 11/05/15 11:09 Serum or plasma iron measurement (mass/volume) 40 % 35-180 Total iron binding capacity and transferrin saturation measurement 12 % 15-50 Iron binding capacity [mass/volume] in serum or plasma 342 % 280-380 UIBC (unsaturated iron binding capacity) 302 % 55-450 Cyanocobalamin measurement - 11/05/15 11 :09 Vitamin B12 361 pg/mL 200-1000 25-hydroxyvitamin D measurement - 11:09 25-hydroxy vitamin D measurement 7 % 30-100 Stool occult blood screen - 11/06/15 06: 00 Stool gastrointestinal hemoglobin detection NEGATI VE NEGATIVE Complete blood count (CBC) with automate d white blood cell (WBC) differential - 11/23/15 16:25 Blood leukocytes automated count (number/volume) 8.9 10*3/uL 4.3-11.0 Blood erythrocytes automated count (number/volume) 3.71 10*6/uL 4.35-5.85 Venous blood hemoglobin measurement (mass/volume) 10.0 g/dL 11.5-16.0 Blood hematocrit (volume fraction) 32 % 35-52 Automated erythrocyte mean corpuscular volume 86 [ foz_us] 80-99 Automated erythrocyte mean corpuscular h emoglobin (mass per erythrocyte) 27 pg 25-34 Automated erythrocyte mean corpuscular h emoglobin concentration measurement (mass/volume) 31 g/dL 32-36 Automated erythrocyte distribution width ratio 14. 7 % 10.0- 14.5 Automated blood platelet count (count/volume) 276 10*3/uL 130-400 Automated blood platelet mean volume measurement 10.2 [foz_us] 7.4-10.4 Automated blood neutrophils/100 leukocytes 69 % 42-75 Automated blood lymphocytes/100 leukocytes 23 % 12-44 Blood monocytes/100 leukocytes 6 % 0-12 Automated blood eosinophils/100 leukocytes 2 % 0-10 Automated blood basophils/100 leukocytes 1 % 0-10 Blood neutrophils automated count (number/volume) 6.2 10*3 1.8-7.8 Blood lymphocytes automated count (number/volume) 2.0 10*3 1.0-4.0 Blood monocytes automated count (number/volume) 0. 5 10*3 0.0-1.0 Automated eosinophil count 0.1 10*3/uL 0 .0-0.3 Automated blood basophil count (count/volume) 0.1 10*3/uL 0.0-0.1 Comprehensive metabolic panel - 11/23/15 16:25 Serum or plasma sodium measurement (moles/volume) 134 mmol/L 135-145 Serum or plasma potassium measurement (moles/volume) 4.7 mmol/L 3.6-5.0 Serum or plasma chloride measurement (moles/volume) 104 mmol/L 98-107 Carbon dioxide 19 mmol/L 21-32 Serum or plasma anion gap determination (moles/volume) 11 mmol/L 5-14 Serum or plasma urea nitrogen measurement (mass/volume ) 15 mg/dL 7-18 Serum or plasma creatinine measurement (mass/volume) 1.24 mg/dL 0.60-1.30 Serum or plasma urea nitrogen/creatinine mass ratio 12 NRG Serum or plasma creatinine measurement w ith calculation of estimated glomerular filtration rate 44 NRG Serum or plasma glucose measurement (mass/volume) 341 mg/dL 70-105 Serum or plasma calcium measurement (mass/volume) 8.8 mg/dL 8.5-10.1 Serum or plasma total bilirubin measurement (mass/volu me) 0.2 mg/dL 0.1-1.0 Serum or plasma alkaline phosphatase shabana surement (enzymatic activity/volume) 115 U/L 40-136 Serum or plasma aspartate aminotransfera se measurement (enzymatic activity/volume) 27 U/L 5-34 Serum or plasma alanine aminotransferase measurement (enzymatic activity/volume) 32 U/L 0-55 Serum or plasma protein measurement (mass/volume) 6.6 g/dL 6.4-8.2 Serum or plasma albumin measurement (mass/volume) 3.8 g/dL 3.2-4.5 Capillary blood glucose measurement by g lucometer (mass/volume) - 11/23/15 16:28 Capillary blood glucose measurement by glucometer (mas s/volume) 342 mg/dL 70-110 Complete urinalysis with reflex to cultu re - 11/23/15 16:35 Urine color determination YELLOW NRG Urine clarity determination CLEAR NR G Urine pH measurement by test strip 6 5-9 Specific gravity of urine by test strip 1.010 1.016-1.022 Urine protein assay by test strip, semi-quantitative NEGATIVE NEGATIVE Urine glucose detection by automated test strip 4+ NEGATIVE Erythrocytes detection in urine sediment by light micr oscopy NEGATIVE NEGATIVE Urine ketones detection by automated test strip NE GATIVE NEGATIVE Urine nitrite detection by test strip NEGATIVE NEGATIVE Urine total bilirubin detection by test strip NEGA TIVE NEGATIVE Urine urobilinogen measurement by automated test strip (mass/volume) NORMAL NORMAL Urine leukocyte esterase detection by dipstick NEG ATIVE NEGATIVE Automated urine sediment erythrocyte cou nt by microscopy (number/high power field) NONE NRG Automated urine sediment leukocyte count by microscopy (number/high power field) [HPF] NRG Bacteria detection in urine sediment by light microsco py NONE NRG Squamous epithelial cells detection in u rine sediment by light microscopy 2-5 NRG Crystals detection in urine sediment by light microsco py NONE NRG Casts detection in urine sediment by light microscopy NONE NRG Mucus detection in urine sediment by light microscopy NEGATIVE NRG Complete urinalysis with reflex to culture NO NRG Complete urinalysis with reflex to cultu re - 12/26/15 07:02 Urine color determination YELLOW NRG Urine clarity determination VERY CLOUDY NRG Urine pH measurement by test strip 5 5-9 Specific gravity of urine by test strip 1.020 1.016-1.022 Urine protein assay by test strip, semi-quantitative 1+ NEGATIVE Urine glucose detection by automated test strip 4+ NEGATIVE Erythrocytes detection in urine sediment by light micr oscopy NEGATIVE NEGATIVE Urine ketones detection by automated test strip NE GATIVE NEGATIVE Urine nitrite detection by test strip NEGATIVE NEGATIVE Urine total bilirubin detection by test strip NEGA TIVE NEGATIVE Urine urobilinogen measurement by automated test strip (mass/volume) NORMAL NORMAL Urine leukocyte esterase detection by dipstick 3+ NEGATIVE Automated urine sediment erythrocyte cou nt by microscopy (number/high power field) NONE NRG Automated urine sediment leukocyte count by microscopy (number/high power field) [HPF] NRG Bacteria detection in urine sediment by light microsco py FEW NRG Squamous epithelial cells detection in u rine sediment by light microscopy 5-10 NRG Crystals detection in urine sediment by light microsco py NONE NRG Casts detection in urine sediment by light microscopy NONE NRG Mucus detection in urine sediment by light microscopy NEGATIVE NRG Complete urinalysis with reflex to culture YES NRG Bacterial urine culture - 12/26/15 07:02 Bacterial urine culture [id number] NRG COLONY COUNT 10,000/ML - 100,000/ML NRG FTX;REPORTABLE SENSITIVITY REPORTED AT 1335, 12-28 NR URINE CULTURE RESULTS PLUS NRG Bacterial susceptibility panel - 6 07:02 Gentamicin susceptibility test by minimum inhibitory c oncentration <= NRG Trimethoprim/sulfamethoxazole susceptibi lity test by minimum inhibitoryconcentration >= NRG Ampicillin susceptibility test by minimum inhibitory c oncentration R NRG Tobramycin susceptibility test by minimum inhibitory c oncentration <= NRG Cefazolin susceptibility test by minimum inhibitory co ncentration >= NRG Ceftriaxone susceptibility test by minimum inhibitory concentration <= NRG Ampicillin/sulbactam susceptibility test by minimum inhibitory concentration <= NRG Piperacillin/tazobactam susceptibility t est by minimum inhibitory concentration <= NRG Ciprofloxacin susceptibility test by minimum inhibitor y concentration <= NRG Meropenem susceptibility test by minimum inhibitory co ncentration <= NRG Nitrofurantoin susceptibility test by mi nimum inhibitory concentration 128 NRG Aztreonam susceptibility test by minimum inhibitory co ncentration <= NRG Bacterial susceptibility panel - 6 07:02 Gentamicin susceptibility test by minimum inhibitory c oncentration S NRG Vancomycin susceptibility test by minimum inhibitory c oncentration 2 NRG Levofloxacin susceptibility test by minimum inhibitory concentration 1 NRG Tetracycline susceptibility test by minimum inhibitory concentration <= NRG Ampicillin susceptibility test by minimum inhibitory c oncentration <= NRG Nitrofurantoin susceptibility test by mi nimum inhibitory concentration <= NRG Linezolid susceptibility test by minimum inhibitory co ncentration 2 NRG Automated blood complete blood count (he mogram) panel - 12/26/15 07:10 Blood leukocytes automated count (number/volume) 11.2 10*3/uL 4.3-11.0 Blood erythrocytes automated count (number/volume) 4.04 10*6/uL 4.35-5.85 Venous blood hemoglobin measurement (mass/volume) 11.0 g/dL 11.5-16.0 Blood hematocrit (volume fraction) 35 % 35-52 Automated erythrocyte mean corpuscular volume 86 [ foz_us] 80-99 Automated erythrocyte mean corpuscular h emoglobin (mass per erythrocyte) 27 pg 25-34 Automated erythrocyte mean corpuscular h emoglobin concentration measurement (mass/volume) 32 g/dL 32-36 Automated erythrocyte distribution width ratio 14. 9 % 10.0- 14.5 Automated blood platelet count (count/volume) 312 10*3/uL 130-400 Automated blood platelet mean volume measurement 10.0 [foz_us] 7.4-10.4 PT panel in platelet poor plasma by coag ulation assay - 12/26/15 07:10 Prothrombin time (PT) in platelet poor plasma by coagu lation assay 13.1 s 12.2-14.7 INR in platelet poor plasma or blood by coagulation as say 1.0 0.8-1.4 Activated partial thromboplastin time (a PTT) in platelet poor plasma bycoagulation assay - 12/26/15 07:10 Activated partial thromboplastin time (a PTT) in platelet poor plasma bycoagulation assay 31 s 24-35 Comprehensive metabolic panel - 12/26/15 07:10 Serum or plasma sodium measurement (moles/volume) 137 mmol/L 135-145 Serum or plasma potassium measurement (moles/volume) 4.6 mmol/L 3.6-5.0 Serum or plasma chloride measurement (moles/volume) 104 mmol/L 98-107 Carbon dioxide 23 mmol/L 21-32 Serum or plasma anion gap determination (moles/volume) 10 mmol/L 5-14 Serum or plasma urea nitrogen measurement (mass/volume ) 21 mg/dL 7-18 Serum or plasma creatinine measurement (mass/volume) 0.90 mg/dL 0.60-1.30 Serum or plasma urea nitrogen/creatinine mass ratio 23 NRG Serum or plasma creatinine measurement w ith calculation of estimated glomerular filtration rate > NRG Serum or plasma glucose measurement (mass/volume) 263 mg/dL 70-105 Serum or plasma calcium measurement (mass/volume) 9.6 mg/dL 8.5-10.1 Serum or plasma total bilirubin measurement (mass/volu me) 0.3 mg/dL 0.1-1.0 Serum or plasma alkaline phosphatase shabana surement (enzymatic activity/volume) 113 U/L 40-136 Serum or plasma aspartate aminotransfera se measurement (enzymatic activity/volume) 40 U/L 5-34 Serum or plasma alanine aminotransferase measurement (enzymatic activity/volume) 43 U/L 0-55 Serum or plasma protein measurement (mass/volume) 7.5 g/dL 6.4-8.2 Serum or plasma albumin measurement (mass/volume) 4.3 g/dL 3.2-4.5 Lipid 1996 panel - 12/26/15 07:10 Serum or plasma triglyceride measurement (mass/volume) 116 mg/dL <150 Serum or plasma cholesterol measurement (mass/volume) 197 mg/dL < 200 Serum or plasma cholesterol in HDL measurement (mass/v olume) 44 mg/dL 40-60 Cholesterol in LDL [mass/volume] in serum or plasma by direct assay 141 mg/dL 1-129 Serum or plasma cholesterol in VLDL measurement (mass/ volume) 23 mg/dL 5-40 Methicillin resistant Staphylococcus aur eus (MRSA) screening culture - 12/26/15 07:10 Methicillin resistant Staphylococcus aureus (MRSA) scr eening culture NEG NRG Capillary blood glucose measurement by g lucometer (mass/volume) - 12/26/15 19:33 Capillary blood glucose measurement by glucometer (mas s/volume) 216 mg/dL 70-110 Automated blood complete blood count (he mogram) panel - 12/27/15 03:19 Blood leukocytes automated count (number/volume) 8.3 10*3/uL 4.3-11.0 Blood erythrocytes automated count (number/volume) 3.76 10*6/uL 4.35-5.85 Venous blood hemoglobin measurement (mass/volume) 10.1 g/dL 11.5-16.0 Blood hematocrit (volume fraction) 32 % 35-52 Automated erythrocyte mean corpuscular volume 86 [ foz_us] 80-99 Automated erythrocyte mean corpuscular h emoglobin (mass per erythrocyte) 27 pg 25-34 Automated erythrocyte mean corpuscular h emoglobin concentration measurement (mass/volume) 31 g/dL 32-36 Automated erythrocyte distribution width ratio 14. 8 % 10.0- 14.5 Automated blood platelet count (count/volume) 256 10*3/uL 130-400 Automated blood platelet mean volume measurement 10.4 [foz_us] 7.4-10.4 Whole blood basic metabolic panel - 12/08 03:19 Serum or plasma sodium measurement (moles/volume) 136 mmol/L 135-145 Serum or plasma potassium measurement (moles/volume) 4.4 mmol/L 3.6-5.0 Serum or plasma chloride measurement (moles/volume) 105 mmol/L 98-107 Carbon dioxide 18 mmol/L 21-32 Serum or plasma anion gap determination (moles/volume) 13 mmol/L 5-14 Serum or plasma urea nitrogen measurement (mass/volume ) 17 mg/dL 7-18 Serum or plasma creatinine measurement (mass/volume) 0.82 mg/dL 0.60-1.30 Serum or plasma urea nitrogen/creatinine mass ratio 21 NRG Serum or plasma creatinine measurement w ith calculation of estimated glomerular filtration rate > NRG Serum or plasma glucose measurement (mass/volume) 268 mg/dL 70-105 Serum or plasma calcium measurement (mass/volume) 8.9 mg/dL 8.5-10.1 Capillary blood glucose measurement by g lucometer (mass/volume) - 04/07/16 00:45 Capillary blood glucose measurement by glucometer (mas s/volume) 267 mg/dL 70-110 Complete blood count (CBC) with automate d white blood cell (WBC) differential - 04/07/16 00:45 Blood leukocytes automated count (number/volume) 9.6 10*3/uL 4.3-11.0 Blood erythrocytes automated count (number/volume) 3.93 10*6/uL 4.35-5.85 Venous blood hemoglobin measurement (mass/volume) 10.3 g/dL 11.5-16.0 Blood hematocrit (volume fraction) 33 % 35-52 Automated erythrocyte mean corpuscular volume 84 [ foz_us] 80-99 Automated erythrocyte mean corpuscular h emoglobin (mass per erythrocyte) 26 pg 25-34 Automated erythrocyte mean corpuscular h emoglobin concentration measurement (mass/volume) 31 g/dL 32-36 Automated erythrocyte distribution width ratio 14. 3 % 10.0- 14.5 Automated blood platelet count (count/volume) 257 10*3/uL 130-400 Automated blood platelet mean volume measurement 9.9 [foz_us] 7.4-10.4 Automated blood neutrophils/100 leukocytes 67 % 42-75 Automated blood lymphocytes/100 leukocytes 25 % 12-44 Blood monocytes/100 leukocytes 5 % 0-12 Automated blood eosinophils/100 leukocytes 3 % 0-10 Automated blood basophils/100 leukocytes 1 % 0-10 Blood neutrophils automated count (number/volume) 6.4 10*3 1.8-7.8 Blood lymphocytes automated count (number/volume) 2.4 10*3 1.0-4.0 Blood monocytes automated count (number/volume) 0. 5 10*3 0.0-1.0 Automated eosinophil count 0.3 10*3/uL 0 .0-0.3 Automated blood basophil count (count/volume) 0.1 10*3/uL 0.0-0.1 Magnesium - 04/07/16 00:45 Magnesium 1.6 mg/dL 1.8-2.4 Serum or plasma troponin i.cardiac measu rement (mass/volume) - 04/07/16 00:45 Serum or plasma troponin i.cardiac measurement (mass/v olume) < ng/mL <0.30 THYROID STIMULATING HORMONE - 04/07/16 0 0:45 THYROID STIMULATING HORMONE 5.21 u[iU]/mL 0.35-4.94 Serum or plasma thyroxine (T4) free jenny urement (mass/volume) - 04/07/16 00:45 Serum or plasma thyroxine (T4) free measurement (mass/ volume) 0.97 ng/dL 0.70-1.48 Serum or plasma thyrotropin measurement by detection limit <=0.05 miu/l (units/volume) - 04/07/16 00:45 Serum or plasma thyrotropin measurement by detection limit <=0.05 miu/l (units/volume) 5.21 u[iU]/mL 0.35-4.94 Comprehensive metabolic panel - 04/07/16 00:45 Serum or plasma sodium measurement (moles/volume) 135 mmol/L 135-145 Serum or plasma potassium measurement (moles/volume) 4.8 mmol/L 3.6-5.0 Serum or plasma chloride measurement (moles/volume) 103 mmol/L 98-107 Carbon dioxide 19 mmol/L 21-32 Serum or plasma anion gap determination (moles/volume) 13 mmol/L 5-14 Serum or plasma urea nitrogen measurement (mass/volume ) 22 mg/dL 7-18 Serum or plasma creatinine measurement (mass/volume) 1.03 mg/dL 0.60-1.30 Serum or plasma urea nitrogen/creatinine mass ratio 21 NRG Serum or plasma creatinine measurement w ith calculation of estimated glomerular filtration rate 54 NRG Serum or plasma glucose measurement (mass/volume) 259 mg/dL 70-105 Serum or plasma calcium measurement (mass/volume) 8.9 mg/dL 8.5-10.1 Serum or plasma total bilirubin measurement (mass/volu me) 0.2 mg/dL 0.1-1.0 Serum or plasma alkaline phosphatase shabana surement (enzymatic activity/volume) 120 U/L 40-136 Serum or plasma aspartate aminotransfera se measurement (enzymatic activity/volume) 32 U/L 5-34 Serum or plasma alanine aminotransferase measurement (enzymatic activity/volume) 34 U/L 0-55 Serum or plasma protein measurement (mass/volume) 6.6 g/dL 6.4-8.2 Serum or plasma albumin measurement (mass/volume) 3.9 g/dL 3.2-4.5 Lipase - 04/07/16 00:45 Lipase 56 U/L 8-78 Complete urinalysis with reflex to cultu re - 04/07/16 01:55 Urine color determination YELLOW NRG Urine clarity determination SLIGHTLY CLOUDY NRG Urine pH measurement by test strip 5 5-9 Specific gravity of urine by test strip 1.020 1.016-1.022 Urine protein assay by test strip, semi-quantitative NEGATIVE NEGATIVE Urine glucose detection by automated test strip 4+ NEGATIVE Erythrocytes detection in urine sediment by light micr oscopy NEGATIVE NEGATIVE Urine ketones detection by automated test strip NE GATIVE NEGATIVE Urine nitrite detection by test strip NEGATIVE NEGATIVE Urine total bilirubin detection by test strip NEGA TIVE NEGATIVE Urine urobilinogen measurement by automated test strip (mass/volume) NORMAL NORMAL Urine leukocyte esterase detection by dipstick 1+ NEGATIVE Automated urine sediment erythrocyte cou nt by microscopy (number/high power field) NONE NRG Automated urine sediment leukocyte count by microscopy (number/high power field) RARE NRG Bacteria detection in urine sediment by light microsco py TRACE NRG Squamous epithelial cells detection in u rine sediment by light microscopy 10-25 NRG Crystals detection in urine sediment by light microsco py NONE NRG Casts detection in urine sediment by light microscopy NONE NRG Mucus detection in urine sediment by light microscopy SMALL NRG Complete urinalysis with reflex to culture NO NRG Automated blood complete blood count (he mogram) panel - 04/16/16 09:10 Blood leukocytes automated count (number/volume) 8.7 10*3/uL 4.3-11.0 Blood erythrocytes automated count (number/volume) 4.00 10*6/uL 4.35-5.85 Venous blood hemoglobin measurement (mass/volume) 10.7 g/dL 11.5-16.0 Blood hematocrit (volume fraction) 34 % 35-52 Automated erythrocyte mean corpuscular volume 86 [ foz_us] 80-99 Automated erythrocyte mean corpuscular h emoglobin (mass per erythrocyte) 27 pg 25-34 Automated erythrocyte mean corpuscular h emoglobin concentration measurement (mass/volume) 31 g/dL 32-36 Automated erythrocyte distribution width ratio 14. 7 % 10.0- 14.5 Automated blood platelet count (count/volume) 241 10*3/uL 130-400 Automated blood platelet mean volume measurement 10.4 [foz_us] 7.4-10.4 Comprehensive metabolic panel - 04/16/16 09:10 Serum or plasma sodium measurement (moles/volume) 139 mmol/L 135-145 Serum or plasma potassium measurement (moles/volume) 4.7 mmol/L 3.6-5.0 Serum or plasma chloride measurement (moles/volume) 107 mmol/L 98-107 Carbon dioxide 16 mmol/L 21-32 Serum or plasma anion gap determination (moles/volume) 16 mmol/L 5-14 Serum or plasma urea nitrogen measurement (mass/volume ) 15 mg/dL 7-18 Serum or plasma creatinine measurement (mass/volume) 1.04 mg/dL 0.60-1.30 Serum or plasma urea nitrogen/creatinine mass ratio 14 NRG Serum or plasma creatinine measurement w ith calculation of estimated glomerular filtration rate 54 NRG Serum or plasma glucose measurement (mass/volume) 237 mg/dL 70-105 Serum or plasma calcium measurement (mass/volume) 9.0 mg/dL 8.5-10.1 Serum or plasma total bilirubin measurement (mass/volu me) 0.3 mg/dL 0.1-1.0 Serum or plasma alkaline phosphatase shabana surement (enzymatic activity/volume) 113 U/L 40-136 Serum or plasma aspartate aminotransfera se measurement (enzymatic activity/volume) 27 U/L 5-34 Serum or plasma alanine aminotransferase measurement (enzymatic activity/volume) 28 U/L 0-55 Serum or plasma protein measurement (mass/volume) 7.2 g/dL 6.4-8.2 Serum or plasma albumin measurement (mass/volume) 4.0 g/dL 3.2-4.5 Complete urinalysis with reflex to cultu re - 04/16/16 09:19 Urine color determination YELLOW NRG Urine clarity determination CLEAR NR G Urine pH measurement by test strip 5 5-9 Specific gravity of urine by test strip 1.020 1.016-1.022 Urine protein assay by test strip, semi-quantitative 2+ NEGATIVE Urine glucose detection by automated test strip 4+ NEGATIVE Erythrocytes detection in urine sediment by light micr oscopy NEGATIVE NEGATIVE Urine ketones detection by automated test strip NE GATIVE NEGATIVE Urine nitrite detection by test strip NEGATIVE NEGATIVE Urine total bilirubin detection by test strip NEGA TIVE NEGATIVE Urine urobilinogen measurement by automated test strip (mass/volume) NORMAL NORMAL Urine leukocyte esterase detection by dipstick 1+ NEGATIVE Automated urine sediment erythrocyte cou nt by microscopy (number/high power field) NONE NRG Automated urine sediment leukocyte count by microscopy (number/high power field) [HPF] NRG Bacteria detection in urine sediment by light microsco py FEW NRG Squamous epithelial cells detection in u rine sediment by light microscopy 10-25 NRG Crystals detection in urine sediment by light microsco py NONE NRG Casts detection in urine sediment by light microscopy NONE NRG Mucus detection in urine sediment by light microscopy NEGATIVE NRG Complete urinalysis with reflex to culture NO NRG Capillary blood glucose measurement by g lucometer (mass/volume) - 05/06/16 15:46 Capillary blood glucose measurement by glucometer (mas s/volume) 402 mg/dL 70-110 Capillary blood glucose measurement by g lucometer (mass/volume) - 05/06/16 18:27 Capillary blood glucose measurement by glucometer (mas s/volume) 384 mg/dL 70-110 Capillary blood glucose measurement by g lucometer (mass/volume) - 05/06/16 20:10 Capillary blood glucose measurement by glucometer (mas s/volume) 358 mg/dL 70-110 Capillary blood glucose measurement by g lucometer (mass/volume) - 05/07/16 05:35 Capillary blood glucose measurement by glucometer (mas s/volume) 85 mg/dL 70-110 Complete urinalysis with reflex to cultu re - 05/07/16 08:35 Urine color determination YELLOW NRG Urine clarity determination SLIGHTLY CLOUDY NRG Urine pH measurement by test strip 7 5-9 Specific gravity of urine by test strip 1.005 1.016-1.022 Urine protein assay by test strip, semi-quantitative NEGATIVE NEGATIVE Urine glucose detection by automated test strip NE GATIVE NEGATIVE Erythrocytes detection in urine sediment by light micr oscopy NEGATIVE NEGATIVE Urine ketones detection by automated test strip NE GATIVE NEGATIVE Urine nitrite detection by test strip NEGATIVE NEGATIVE Urine total bilirubin detection by test strip NEGA TIVE NEGATIVE Urine urobilinogen measurement by automated test strip (mass/volume) NORMAL NORMAL Urine leukocyte esterase detection by dipstick 2+ NEGATIVE Automated urine sediment erythrocyte cou nt by microscopy (number/high power field) NONE NRG Automated urine sediment leukocyte count by microscopy (number/high power field) [HPF] NRG Bacteria detection in urine sediment by light microsco py TRACE NRG Squamous epithelial cells detection in u rine sediment by light microscopy 10-25 NRG Crystals detection in urine sediment by light microsco py NONE NRG Casts detection in urine sediment by light microscopy NONE NRG Mucus detection in urine sediment by light microscopy NEGATIVE NRG Complete urinalysis with reflex to culture YES NRG Yeast detection in urine sediment by light microscopy FEW NRG Other elements identification in urine sediment by lig ht microscopy 5- 10 TRANS EPIS NRG Bacterial urine culture - 05/07/16 08:35 Bacterial urine culture [id number] NRG COLONY COUNT 10,000/ML - 100,000/ML NRG FTX;REPORTABLE NO FURTHER STUDIES UNLESS REQUESTED NRG URINE CULTURE RESULTS PLUS NRG Bacterial susceptibility panel - 7 08:35 Gentamicin susceptibility test by minimum inhibitory c oncentration >= NRG Tobramycin susceptibility test by minimum inhibitory c oncentration 8 NRG Piperacillin/tazobactam susceptibility t est by minimum inhibitory concentration 32 NRG Ciprofloxacin susceptibility test by minimum inhibitor y concentration >= NRG Meropenem susceptibility test by minimum inhibitory co ncentration 4 NRG Cefepime susceptibility test by minimum inhibitory con centration 16 NRG Amikacin susceptibility test by minimum inhibitory con centration R NRG Capillary blood glucose measurement by g lucometer (mass/volume) - 05/07/16 11:04 Capillary blood glucose measurement by glucometer (mas s/volume) 110 mg/dL 70-110 Capillary blood glucose measurement by g lucometer (mass/volume) - 05/07/16 16:03 Capillary blood glucose measurement by glucometer (mas s/volume) 199 mg/dL 70-110 Capillary blood glucose measurement by g lucometer (mass/volume) - 05/07/16 20:15 Capillary blood glucose measurement by glucometer (mas s/volume) 251 mg/dL 70-110 Complete blood count (CBC) with automate d white blood cell (WBC) differential - 05/08/16 05:06 Blood leukocytes automated count (number/volume) 14.4 10*3/uL 4.3-11.0 Blood erythrocytes automated count (number/volume) 3.47 10*6/uL 4.35-5.85 Venous blood hemoglobin measurement (mass/volume) 9.3 g/dL 11.5-16.0 Blood hematocrit (volume fraction) 31 % 35-52 Automated erythrocyte mean corpuscular volume 89 [ foz_us] 80-99 Automated erythrocyte mean corpuscular h emoglobin (mass per erythrocyte) 27 pg 25-34 Automated erythrocyte mean corpuscular h emoglobin concentration measurement (mass/volume) 30 g/dL 32-36 Automated erythrocyte distribution width ratio 14. 9 % 10.0- 14.5 Automated blood platelet count (count/volume) 343 10*3/uL 130-400 Automated blood platelet mean volume measurement 10.0 [foz_us] 7.4-10.4 Automated blood neutrophils/100 leukocytes 69 % 42-75 Automated blood lymphocytes/100 leukocytes 23 % 12-44 Blood monocytes/100 leukocytes 5 % 0-12 Automated blood eosinophils/100 leukocytes 4 % 0-10 Automated blood basophils/100 leukocytes 0 % 0-10 Blood neutrophils automated count (number/volume) 9.9 10*3 1.8-7.8 Blood lymphocytes automated count (number/volume) 3.3 10*3 1.0-4.0 Blood monocytes automated count (number/volume) 0. 7 10*3 0.0-1.0 Automated eosinophil count 0.5 10*3/uL 0 .0-0.3 Automated blood basophil count (count/volume) 0.0 10*3/uL 0.0-0.1 Comprehensive metabolic panel - 05/08/16 05:06 Serum or plasma sodium measurement (moles/volume) 141 mmol/L 135-145 Serum or plasma potassium measurement (moles/volume) 4.0 mmol/L 3.6-5.0 Serum or plasma chloride measurement (moles/volume) 101 mmol/L 98-107 Carbon dioxide 26 mmol/L 21-32 Serum or plasma anion gap determination (moles/volume) 14 mmol/L 5-14 Serum or plasma urea nitrogen measurement (mass/volume ) 31 mg/dL 7-18 Serum or plasma creatinine measurement (mass/volume) 1.18 mg/dL 0.60-1.30 Serum or plasma urea nitrogen/creatinine mass ratio 26 NRG Serum or plasma creatinine measurement w ith calculation of estimated glomerular filtration rate 46 NRG Serum or plasma glucose measurement (mass/volume) 85 mg/dL 70-105 Serum or plasma calcium measurement (mass/volume) 8.9 mg/dL 8.5-10.1 Serum or plasma total bilirubin measurement (mass/volu me) 0.5 mg/dL 0.1-1.0 Serum or plasma alkaline phosphatase shabana surement (enzymatic activity/volume) 101 U/L 40-136 Serum or plasma aspartate aminotransfera se measurement (enzymatic activity/volume) 45 U/L 5-34 Serum or plasma alanine aminotransferase measurement (enzymatic activity/volume) 60 U/L 0-55 Serum or plasma protein measurement (mass/volume) 6.1 g/dL 6.4-8.2 Serum or plasma albumin measurement (mass/volume) 3.7 g/dL 3.2-4.5 Blood manual differential performed dete ction - 05/08/16 05:06 Blood monocytes/100 leukocytes 4 % NRG Manual blood segmented neutrophils/100 leukocytes 67 % NRG Blood band neutrophils/100 leukocytes 0 % NRG Manual blood lymphocytes/100 leukocytes 26 % NRG Manual eosinophils/100 leukocytes in nose 3 % NRG Manual blood basophils/100 leukocytes 0 % NRG Blood polychromasia detection by light microscopy SLIGHT NRG Blood poikilocytosis detection by light microscopy SLIGHT NRG Blood hypochromia detection by light microscopy SL IGHT NRG Serum or plasma lithium measurement (mol es/volume) - 05/08/16 05:06 BNP level 147.1 pg/mL <100.0 Capillary blood glucose measurement by g lucometer (mass/volume) - 05/08/16 06:09 Capillary blood glucose measurement by glucometer (mas s/volume) 86 mg/dL 70-110 Capillary blood glucose measurement by g lucometer (mass/volume) - 05/08/16 11:02 Capillary blood glucose measurement by glucometer (mas s/volume) 148 mg/dL 70-110 Capillary blood glucose measurement by g lucometer (mass/volume) - 05/08/16 16:02 Capillary blood glucose measurement by glucometer (mas s/volume) 174 mg/dL 70-110 Capillary blood glucose measurement by g lucometer (mass/volume) - 05/08/16 20:14 Capillary blood glucose measurement by glucometer (mas s/volume) 176 mg/dL 70-110 Capillary blood glucose measurement by g lucometer (mass/volume) - 05/09/16 06:06 Capillary blood glucose measurement by glucometer (mas s/volume) 96 mg/dL 70-110 Complete blood count (CBC) with automate d white blood cell (WBC) differential - 05/09/16 06:50 Blood leukocytes automated count (number/volume) 14.9 10*3/uL 4.3-11.0 Blood erythrocytes automated count (number/volume) 3.47 10*6/uL 4.35-5.85 Venous blood hemoglobin measurement (mass/volume) 9.3 g/dL 11.5-16.0 Blood hematocrit (volume fraction) 31 % 35-52 Automated erythrocyte mean corpuscular volume 89 [ foz_us] 80-99 Automated erythrocyte mean corpuscular h emoglobin (mass per erythrocyte) 27 pg 25-34 Automated erythrocyte mean corpuscular h emoglobin concentration measurement (mass/volume) 30 g/dL 32-36 Automated erythrocyte distribution width ratio 15. 0 % 10.0- 14.5 Automated blood platelet count (count/volume) 352 10*3/uL 130-400 Automated blood platelet mean volume measurement 10.0 [foz_us] 7.4-10.4 Automated blood neutrophils/100 leukocytes 74 % 42-75 Automated blood lymphocytes/100 leukocytes 17 % 12-44 Blood monocytes/100 leukocytes 6 % 0-12 Automated blood eosinophils/100 leukocytes 4 % 0-10 Automated blood basophils/100 leukocytes 0 % 0-10 Blood neutrophils automated count (number/volume) 11.1 10*3 1.8-7.8 Blood lymphocytes automated count (number/volume) 2.5 10*3 1.0-4.0 Blood monocytes automated count (number/volume) 0. 8 10*3 0.0-1.0 Automated eosinophil count 0.5 10*3/uL 0 .0-0.3 Automated blood basophil count (count/volume) 0.0 10*3/uL 0.0-0.1 Comprehensive metabolic panel - 05/09/16 06:50 Serum or plasma sodium measurement (moles/volume) 139 mmol/L 135-145 Serum or plasma potassium measurement (moles/volume) 4.1 mmol/L 3.6-5.0 Serum or plasma chloride measurement (moles/volume) 102 mmol/L 98-107 Carbon dioxide 26 mmol/L 21-32 Serum or plasma anion gap determination (moles/volume) 11 mmol/L 5-14 Serum or plasma urea nitrogen measurement (mass/volume ) 25 mg/dL 7-18 Serum or plasma creatinine measurement (mass/volume) 1.24 mg/dL 0.60-1.30 Serum or plasma urea nitrogen/creatinine mass ratio 20 NRG Serum or plasma creatinine measurement w ith calculation of estimated glomerular filtration rate 44 NRG Serum or plasma glucose measurement (mass/volume) 129 mg/dL 70-105 Serum or plasma calcium measurement (mass/volume) 8.9 mg/dL 8.5-10.1 Serum or plasma total bilirubin measurement (mass/volu me) 0.5 mg/dL 0.1-1.0 Serum or plasma alkaline phosphatase shabana surement (enzymatic activity/volume) 102 U/L 40-136 Serum or plasma aspartate aminotransfera se measurement (enzymatic activity/volume) 23 U/L 5-34 Serum or plasma alanine aminotransferase measurement (enzymatic activity/volume) 45 U/L 0-55 Serum or plasma protein measurement (mass/volume) 6.2 g/dL 6.4-8.2 Serum or plasma albumin measurement (mass/volume) 3.7 g/dL 3.2-4.5 Capillary blood glucose measurement by g lucometer (mass/volume) - 05/09/16 11:03 Capillary blood glucose measurement by glucometer (mas s/volume) 149 mg/dL 70-110 Capillary blood glucose measurement by g lucometer (mass/volume) - 05/09/16 16:59 Capillary blood glucose measurement by glucometer (mas s/volume) 144 mg/dL 70-110 Capillary blood glucose measurement by g lucometer (mass/volume) - 05/09/16 20:04 Capillary blood glucose measurement by glucometer (mas s/volume) 231 mg/dL 70-110 Capillary blood glucose measurement by g lucometer (mass/volume) - 05/10/16 06:00 Capillary blood glucose measurement by glucometer (mas s/volume) 121 mg/dL 70-110 Capillary blood glucose measurement by g lucometer (mass/volume) - 05/10/16 10:58 Capillary blood glucose measurement by glucometer (mas s/volume) 166 mg/dL 70-110 Capillary blood glucose measurement by g lucometer (mass/volume) - 05/10/16 16:07 Capillary blood glucose measurement by glucometer (mas s/volume) 179 mg/dL 70-110 Capillary blood glucose measurement by g lucometer (mass/volume) - 05/10/16 21:26 Capillary blood glucose measurement by glucometer (mas s/volume) 213 mg/dL 70-110 Capillary blood glucose measurement by g lucometer (mass/volume) - 05/11/16 04:56 Capillary blood glucose measurement by glucometer (mas s/volume) 162 mg/dL 70-110 Capillary blood glucose measurement by g lucometer (mass/volume) - 05/11/16 11:00 Capillary blood glucose measurement by glucometer (mas s/volume) 182 mg/dL 70-110 Capillary blood glucose measurement by g lucometer (mass/volume) - 05/11/16 15:38 Capillary blood glucose measurement by glucometer (mas s/volume) 186 mg/dL 70-110 Capillary blood glucose measurement by g lucometer (mass/volume) - 05/11/16 20:11 Capillary blood glucose measurement by glucometer (mas s/volume) 266 mg/dL 70-110 Complete blood count (CBC) with automate d white blood cell (WBC) differential - 05/12/16 05:14 Blood leukocytes automated count (number/volume) 9.4 10*3/uL 4.3-11.0 Blood erythrocytes automated count (number/volume) 3.33 10*6/uL 4.35-5.85 Venous blood hemoglobin measurement (mass/volume) 9.1 g/dL 11.5-16.0 Blood hematocrit (volume fraction) 30 % 35-52 Automated erythrocyte mean corpuscular volume 90 [ foz_us] 80-99 Automated erythrocyte mean corpuscular h emoglobin (mass per erythrocyte) 27 pg 25-34 Automated erythrocyte mean corpuscular h emoglobin concentration measurement (mass/volume) 30 g/dL 32-36 Automated erythrocyte distribution width ratio 16. 0 % 10.0- 14.5 Automated blood platelet count (count/volume) 252 10*3/uL 130-400 Automated blood platelet mean volume measurement 8.9 [foz_us] 7.4-10.4 Automated blood neutrophils/100 leukocytes 70 % 42-75 Automated blood lymphocytes/100 leukocytes 18 % 12-44 Blood monocytes/100 leukocytes 8 % 0-12 Automated blood eosinophils/100 leukocytes 4 % 0-10 Automated blood basophils/100 leukocytes 1 % 0-10 Blood neutrophils automated count (number/volume) 5.9 10*3 1.8-7.8 Blood lymphocytes automated count (number/volume) 1.5 10*3 1.0-4.0 Blood monocytes automated count (number/volume) 0. 7 10*3 0.0-1.0 Automated eosinophil count 0.3 10*3/uL 0 .0-0.3 Automated blood basophil count (count/volume) 0.1 10*3/uL 0.0-0.1 Comprehensive metabolic panel - 05/12/16 05:14 Serum or plasma sodium measurement (moles/volume) 140 mmol/L 135-145 Serum or plasma potassium measurement (moles/volume) 4.1 mmol/L 3.6-5.0 Serum or plasma chloride measurement (moles/volume) 106 mmol/L 98-107 Carbon dioxide 23 mmol/L 21-32 Serum or plasma anion gap determination (moles/volume) 11 mmol/L 5-14 Serum or plasma urea nitrogen measurement (mass/volume ) 14 mg/dL 7-18 Serum or plasma creatinine measurement (mass/volume) 1.10 mg/dL 0.60-1.30 Serum or plasma urea nitrogen/creatinine mass ratio 13 NRG Serum or plasma creatinine measurement w ith calculation of estimated glomerular filtration rate 50 NRG Serum or plasma glucose measurement (mass/volume) 163 mg/dL 70-105 Serum or plasma calcium measurement (mass/volume) 9.0 mg/dL 8.5-10.1 Serum or plasma total bilirubin measurement (mass/volu me) 0.4 mg/dL 0.1-1.0 Serum or plasma alkaline phosphatase shabana surement (enzymatic activity/volume) 113 U/L 40-136 Serum or plasma aspartate aminotransfera se measurement (enzymatic activity/volume) 31 U/L 5-34 Serum or plasma alanine aminotransferase measurement (enzymatic activity/volume) 41 U/L 0-55 Serum or plasma protein measurement (mass/volume) 6.1 g/dL 6.4-8.2 Serum or plasma albumin measurement (mass/volume) 3.5 g/dL 3.2-4.5 Capillary blood glucose measurement by g lucometer (mass/volume) - 05/12/16 11:12 Capillary blood glucose measurement by glucometer (mas s/volume) 191 mg/dL 70-110 Capillary blood glucose measurement by g lucometer (mass/volume) - 05/12/16 15:31 Capillary blood glucose measurement by glucometer (mas s/volume) 159 mg/dL 70-110 Capillary blood glucose measurement by g lucometer (mass/volume) - 05/12/16 21:29 Capillary blood glucose measurement by glucometer (mas s/volume) 189 mg/dL 70-110 Capillary blood glucose measurement by g lucometer (mass/volume) - 05/13/16 05:03 Capillary blood glucose measurement by glucometer (mas s/volume) 146 mg/dL 70-110 Complete urinalysis with reflex to cultu re - 05/13/16 07:13 Urine color determination YELLOW NRG Urine clarity determination CLEAR NR G Urine pH measurement by test strip 6 5-9 Specific gravity of urine by test strip 1.010 1.016-1.022 Urine protein assay by test strip, semi-quantitative NEGATIVE NEGATIVE Urine glucose detection by automated test strip NE GATIVE NEGATIVE Erythrocytes detection in urine sediment by light micr oscopy NEGATIVE NEGATIVE Urine ketones detection by automated test strip NE GATIVE NEGATIVE Urine nitrite detection by test strip NEGATIVE NEGATIVE Urine total bilirubin detection by test strip NEGA TIVE NEGATIVE Urine urobilinogen measurement by automated test strip (mass/volume) NORMAL NORMAL Urine leukocyte esterase detection by dipstick 2+ NEGATIVE Automated urine sediment erythrocyte cou nt by microscopy (number/high power field) NONE NRG Automated urine sediment leukocyte count by microscopy (number/high power field) [HPF] NRG Bacteria detection in urine sediment by light microsco py TRACE NRG Squamous epithelial cells detection in u rine sediment by light microscopy 5-10 NRG Crystals detection in urine sediment by light microsco py NONE NRG Casts detection in urine sediment by light microscopy NONE NRG Mucus detection in urine sediment by light microscopy NEGATIVE NRG Complete urinalysis with reflex to culture YES NRG Yeast detection in urine sediment by light microscopy FEW NRG Renal epithelial cells detection in urin e sediment by light microscopy 2-5 NRG Bacterial urine culture - 05/13/16 07:13 Bacterial urine culture [id number] NRG COLONY COUNT 10,000/ML - 100,000/ML NRG FTX;REPORTABLE NO FURTHER STUDIES UNLESS REQUESTED NRG Capillary blood glucose measurement by g lucometer (mass/volume) - 05/13/16 10:33 Capillary blood glucose measurement by glucometer (mas s/volume) 201 mg/dL 70-110 Capillary blood glucose measurement by g lucometer (mass/volume) - 05/13/16 15:33 Capillary blood glucose measurement by glucometer (mas s/volume) 169 mg/dL 70-110 Capillary blood glucose measurement by g lucometer (mass/volume) - 05/13/16 20:09 Capillary blood glucose measurement by glucometer (mas s/volume) 166 mg/dL 70-110 Capillary blood glucose measurement by g lucometer (mass/volume) - 05/14/16 05:15 Capillary blood glucose measurement by glucometer (mas s/volume) 127 mg/dL 70-110 Whole blood basic metabolic panel - 10/23 05:16 Serum or plasma sodium measurement (moles/volume) 142 mmol/L 135-145 Serum or plasma potassium measurement (moles/volume) 3.9 mmol/L 3.6-5.0 Serum or plasma chloride measurement (moles/volume) 109 mmol/L 98-107 Carbon dioxide 23 mmol/L 21-32 Serum or plasma anion gap determination (moles/volume) 10 mmol/L 5-14 Serum or plasma urea nitrogen measurement (mass/volume ) 14 mg/dL 7-18 Serum or plasma creatinine measurement (mass/volume) 0.88 mg/dL 0.60-1.30 Serum or plasma urea nitrogen/creatinine mass ratio 16 NRG Serum or plasma creatinine measurement w ith calculation of estimated glomerular filtration rate > NRG Serum or plasma glucose measurement (mass/volume) 125 mg/dL 70-105 Serum or plasma calcium measurement (mass/volume) 8.2 mg/dL 8.5-10.1 Complete blood count (CBC) with automate d white blood cell (WBC) differential - 05/14/16 05:16 Blood leukocytes automated count (number/volume) 7.8 10*3/uL 4.3-11.0 Blood erythrocytes automated count (number/volume) 3.03 10*6/uL 4.35-5.85 Venous blood hemoglobin measurement (mass/volume) 8.7 g/dL 11.5-16.0 Blood hematocrit (volume fraction) 28 % 35-52 Automated erythrocyte mean corpuscular volume 92 [ foz_us] 80-99 Automated erythrocyte mean corpuscular h emoglobin (mass per erythrocyte) 29 pg 25-34 Automated erythrocyte mean corpuscular h emoglobin concentration measurement (mass/volume) 31 g/dL 32-36 Automated erythrocyte distribution width ratio 17. 5 % 10.0- 14.5 Automated blood platelet count (count/volume) 207 10*3/uL 130-400 Automated blood platelet mean volume measurement 10.3 [foz_us] 7.4-10.4 Automated blood neutrophils/100 leukocytes 66 % 42-75 Automated blood lymphocytes/100 leukocytes 22 % 12-44 Blood monocytes/100 leukocytes 8 % 0-12 Automated blood eosinophils/100 leukocytes 4 % 0-10 Automated blood basophils/100 leukocytes 1 % 0-10 Blood neutrophils automated count (number/volume) 5.2 10*3 1.8-7.8 Blood lymphocytes automated count (number/volume) 1.7 10*3 1.0-4.0 Blood monocytes automated count (number/volume) 0. 6 10*3 0.0-1.0 Automated eosinophil count 0.3 10*3/uL 0 .0-0.3 Automated blood basophil count (count/volume) 0.1 10*3/uL 0.0-0.1 Capillary blood glucose measurement by g lucometer (mass/volume) - 05/14/16 10:49 Capillary blood glucose measurement by glucometer (mas s/volume) 177 mg/dL 70-110 Capillary blood glucose measurement by g lucometer (mass/volume) - 05/14/16 15:41 Capillary blood glucose measurement by glucometer (mas s/volume) 162 mg/dL 70-110 Capillary blood glucose measurement by g lucometer (mass/volume) - 05/14/16 20:05 Capillary blood glucose measurement by glucometer (mas s/volume) 191 mg/dL 70-110 Capillary blood glucose measurement by g lucometer (mass/volume) - 05/15/16 05:11 Capillary blood glucose measurement by glucometer (mas s/volume) 127 mg/dL 70-110 Capillary blood glucose measurement by g lucometer (mass/volume) - 05/15/16 11:16 Capillary blood glucose measurement by glucometer (mas s/volume) 192 mg/dL 70-110 Arterial blood gas measurement - 8 09:49 Blood pCO2 44 mm[Hg] 35-45 Blood pO2 53 mm[Hg] 79-93 Arterial blood bicarbonate measurement (moles/volume) 26 mmol/L 23-27 Arterial blood base excess by calculation 1.2 mmol /L -2.5-2.5 Arterial blood oxygen saturation measurement 86 % 94-100 * Inhaled oxygen flow rate 0 NRG Arterial blood pH measurement with patient temperature correction 7.38 7.37-7.43 Arterial blood carbon dioxide, total measurement (mole s/volume) 26.9 mmol/L 21.0-31.0 Body site R BRACHIAL NRG Assessment of wrist artery patency prior to arterial p uncture YES-POS NRG Setting of ventilation mode NO NR G Measurement of body temperature 99.5 NRG Complete blood count (CBC) with automate d white blood cell (WBC) differential - 11/02/17 10:20 Blood leukocytes automated count (number/volume) 10.4 10*3/uL 4.3-11.0 Blood erythrocytes automated count (number/volume) 3.29 10*6/uL 4.35-5.85 Venous blood hemoglobin measurement (mass/volume) 8.6 g/dL 11.5-16.0 Blood hematocrit (volume fraction) 29 % 35-52 Automated erythrocyte mean corpuscular volume 89 [ foz_us] 80-99 Automated erythrocyte mean corpuscular h emoglobin (mass per erythrocyte) 26 pg 25-34 Automated erythrocyte mean corpuscular h emoglobin concentration measurement (mass/volume) 29 g/dL 32-36 Automated erythrocyte distribution width ratio 17. 5 % 10.0- 14.5 Automated blood platelet count (count/volume) 269 10*3/uL 130-400 Automated blood platelet mean volume measurement 9.3 [foz_us] 7.4-10.4 Automated blood neutrophils/100 leukocytes 82 % 42-75 Automated blood lymphocytes/100 leukocytes 13 % 12-44 Blood monocytes/100 leukocytes 3 % 0-12 Automated blood eosinophils/100 leukocytes 2 % 0-10 Automated blood basophils/100 leukocytes 0 % 0-10 Blood neutrophils automated count (number/volume) 8.5 10*3 1.8-7.8 Blood lymphocytes automated count (number/volume) 1.4 10*3 1.0-4.0 Blood monocytes automated count (number/volume) 0. 3 10*3 0.0-1.0 Automated eosinophil count 0.2 10*3/uL 0 .0-0.3 Automated blood basophil count (count/volume) 0.0 10*3/uL 0.0-0.1 Comprehensive metabolic panel - 11/02/17 10:20 Serum or plasma sodium measurement (moles/volume) 139 mmol/L 135-145 Serum or plasma potassium measurement (moles/volume) 4.4 mmol/L 3.6-5.0 Serum or plasma chloride measurement (moles/volume) 104 mmol/L 98-107 Carbon dioxide 25 mmol/L 21-32 Serum or plasma anion gap determination (moles/volume) 10 mmol/L 5-14 Serum or plasma urea nitrogen measurement (mass/volume ) 12 mg/dL 7-18 Serum or plasma creatinine measurement (mass/volume) 1.08 mg/dL 0.60-1.30 Serum or plasma urea nitrogen/creatinine mass ratio 11 NRG Serum or plasma creatinine measurement w ith calculation of estimated glomerular filtration rate 51 NRG Serum or plasma glucose measurement (mass/volume) 212 mg/dL 70-105 Serum or plasma calcium measurement (mass/volume) 9.3 mg/dL 8.5-10.1 Serum or plasma total bilirubin measurement (mass/volu me) 0.4 mg/dL 0.1-1.0 Serum or plasma alkaline phosphatase shabana surement (enzymatic activity/volume) 122 U/L 40-136 Serum or plasma aspartate aminotransfera se measurement (enzymatic activity/volume) 15 U/L 5-34 Serum or plasma alanine aminotransferase measurement (enzymatic activity/volume) 14 U/L 0-55 Serum or plasma protein measurement (mass/volume) 6.7 g/dL 6.4-8.2 Serum or plasma albumin measurement (mass/volume) 3.6 g/dL 3.2-4.5 CALCIUM CORRECTED 9.6 mg/dL 8.5-10.1 Serum or plasma phosphate measurement (m ass/volume) - 11/02/17 10:20 Serum or plasma phosphate measurement (mass/volume) 4.2 mg/dL 2.3-4.7 Magnesium - 11/02/17 10:20 Magnesium 1.6 mg/dL 1.8-2.4 Serum or plasma lithium measurement (mol es/volume) - 11/02/17 10:20 BNP level 322.5 pg/mL <100.0 Fibrin D-dimer FEU measurement in platel et poor plasma (mass/volume) - 11/02/17 10:20 Fibrin D-dimer FEU measurement in platelet poor plasma (mass/volume) 1.02 ug/mL 0.00-0.49 Serum or plasma troponin i.cardiac measu rement (mass/volume) - 11/02/17 10:20 Serum or plasma troponin i.cardiac measurement (mass/v olume) < ng/mL <0.30 Serum or plasma troponin i.cardiac measu rement (mass/volume) - 11/02/17 16:26 Serum or plasma troponin i.cardiac measurement (mass/v olume) < ng/mL <0.30 Capillary blood glucose measurement by g lucometer (mass/volume) - 11/02/17 20:55 Capillary blood glucose measurement by glucometer (mas s/volume) 292 mg/dL 70-110 Serum or plasma troponin i.cardiac measu rement (mass/volume) - 11/02/17 22:35 Serum or plasma troponin i.cardiac measurement (mass/v olume) < ng/mL <0.30 Complete blood count (CBC) with automate d white blood cell (WBC) differential - 11/03/17 04:35 Blood leukocytes automated count (number/volume) 9.0 10*3/uL 4.3-11.0 Blood erythrocytes automated count (number/volume) 3.20 10*6/uL 4.35-5.85 Venous blood hemoglobin measurement (mass/volume) 8.7 g/dL 11.5-16.0 Blood hematocrit (volume fraction) 29 % 35-52 Automated erythrocyte mean corpuscular volume 89 [ foz_us] 80-99 Automated erythrocyte mean corpuscular h emoglobin (mass per erythrocyte) 27 pg 25-34 Automated erythrocyte mean corpuscular h emoglobin concentration measurement (mass/volume) 30 g/dL 32-36 Automated erythrocyte distribution width ratio 17. 1 % 10.0- 14.5 Automated blood platelet count (count/volume) 263 10*3/uL 130-400 Automated blood platelet mean volume measurement 9.1 [foz_us] 7.4-10.4 Automated blood neutrophils/100 leukocytes 74 % 42-75 Automated blood lymphocytes/100 leukocytes 19 % 12-44 Blood monocytes/100 leukocytes 3 % 0-12 Automated blood eosinophils/100 leukocytes 3 % 0-10 Automated blood basophils/100 leukocytes 1 % 0-10 Blood neutrophils automated count (number/volume) 6.7 10*3 1.8-7.8 Blood lymphocytes automated count (number/volume) 1.7 10*3 1.0-4.0 Blood monocytes automated count (number/volume) 0. 3 10*3 0.0-1.0 Automated eosinophil count 0.3 10*3/uL 0 .0-0.3 Automated blood basophil count (count/volume) 0.1 10*3/uL 0.0-0.1 Comprehensive metabolic panel - 11/03/17 04:35 Serum or plasma sodium measurement (moles/volume) 140 mmol/L 135-145 Serum or plasma potassium measurement (moles/volume) 4.3 mmol/L 3.6-5.0 Serum or plasma chloride measurement (moles/volume) 103 mmol/L 98-107 Carbon dioxide 24 mmol/L 21-32 Serum or plasma anion gap determination (moles/volume) 13 mmol/L 5-14 Serum or plasma urea nitrogen measurement (mass/volume ) 12 mg/dL 7-18 Serum or plasma creatinine measurement (mass/volume) 1.08 mg/dL 0.60-1.30 Serum or plasma urea nitrogen/creatinine mass ratio 11 NRG Serum or plasma creatinine measurement w ith calculation of estimated glomerular filtration rate 51 NRG Serum or plasma glucose measurement (mass/volume) 217 mg/dL 70-105 Serum or plasma calcium measurement (mass/volume) 9.3 mg/dL 8.5-10.1 Serum or plasma total bilirubin measurement (mass/volu me) 0.4 mg/dL 0.1-1.0 Serum or plasma alkaline phosphatase shabana surement (enzymatic activity/volume) 124 U/L 40-136 Serum or plasma aspartate aminotransfera se measurement (enzymatic activity/volume) 13 U/L 5-34 Serum or plasma alanine aminotransferase measurement (enzymatic activity/volume) 15 U/L 0-55 Serum or plasma protein measurement (mass/volume) 6.8 g/dL 6.4-8.2 Serum or plasma albumin measurement (mass/volume) 3.6 g/dL 3.2-4.5 CALCIUM CORRECTED 9.6 mg/dL 8.5-10.1 Serum or plasma phosphate measurement (m ass/volume) - 11/03/17 04:35 Serum or plasma phosphate measurement (mass/volume) 4.7 mg/dL 2.3-4.7 Magnesium - 11/03/17 04:35 Magnesium 1.8 mg/dL 1.8-2.4 Serum or plasma lithium measurement (mol es/volume) - 11/03/17 04:35 BNP level 241.8 pg/mL <100.0 Complete urinalysis with reflex to cultu re - 11/03/17 10:24 Urine color determination YELLOW NRG Urine clarity determination CLEAR NR G Urine pH measurement by test strip 7 5-9 Specific gravity of urine by test strip 1.005 1.016-1.022 Urine protein assay by test strip, semi-quantitative NEGATIVE NEGATIVE Urine glucose detection by automated test strip NE GATIVE NEGATIVE Erythrocytes detection in urine sediment by light micr oscopy NEGATIVE NEGATIVE Urine ketones detection by automated test strip NE GATIVE NEGATIVE Urine nitrite detection by test strip NEGATIVE NEGATIVE Urine total bilirubin detection by test strip NEGA TIVE NEGATIVE Urine urobilinogen measurement by automated test strip (mass/volume) NORMAL NORMAL Urine leukocyte esterase detection by dipstick 1+ NEGATIVE Automated urine sediment erythrocyte cou nt by microscopy (number/high power field) NONE NRG Automated urine sediment leukocyte count by microscopy (number/high power field) [HPF] NRG Bacteria detection in urine sediment by light microsco py NEGATIVE NRG Squamous epithelial cells detection in u rine sediment by light microscopy 2-5 NRG Crystals detection in urine sediment by light microsco py NONE NRG Casts detection in urine sediment by light microscopy NONE NRG Mucus detection in urine sediment by light microscopy NEGATIVE NRG Complete urinalysis with reflex to culture NO NRG Yeast detection in urine sediment by light microscopy FEW NRG Capillary blood glucose measurement by g lucometer (mass/volume) - 11/03/17 11:36 Capillary blood glucose measurement by glucometer (mas s/volume) 169 mg/dL 70-110 Capillary blood glucose measurement by g lucometer (mass/volume) - 11/03/17 16:04 Capillary blood glucose measurement by glucometer (mas s/volume) 201 mg/dL 70-110 Capillary blood glucose measurement by g lucometer (mass/volume) - 11/03/17 20:10 Capillary blood glucose measurement by glucometer (mas s/volume) 234 mg/dL 70-110 Serum iron and total iron binding capaci ty panel - 11/04/17 06:30 Serum or plasma iron measurement (mass/volume) 27 % 35-180 Total iron binding capacity and transferrin saturation measurement 10 % 15-50 Iron binding capacity [mass/volume] in serum or plasma 284 % 280-380 UIBC (unsaturated iron binding capacity) 257 % 55-450 Serum or plasma ferritin measurement (mass/volume) 42.7 % 20.0-177.0 Capillary blood glucose measurement by g lucometer (mass/volume) - 02/02/18 07:26 Capillary blood glucose measurement by glucometer (mas s/volume) 227 mg/dL 70-110 Arterial blood gas measurement - 8 11:20 Blood pCO2 45 mm[Hg] 35-45 Blood pO2 119 mm[Hg] 79-93 Arterial blood bicarbonate measurement (moles/volume) 29 mmol/L 23-27 Arterial blood base excess by calculation 4.6 mmol /L -2.5-2.5 Arterial blood oxygen saturation measurement 99 % 94-100 * Inhaled oxygen flow rate 3 NRG Arterial blood pH measurement with patient temperature correction 7.42 7.37-7.43 Arterial blood carbon dioxide, total measurement (mole s/volume) 30.4 mmol/L 21.0-31.0 Body site RRAD NRG Assessment of wrist artery patency prior to arterial p uncture YES-POS NRG Setting of ventilation mode NO NR G Measurement of body temperature 97.6 NRG Complete blood count (CBC) with automate d white blood cell (WBC) differential - 06/01/18 16:03 Blood leukocytes automated count (number/volume) 9.9 10*3/uL 4.3-11.0 Blood erythrocytes automated count (number/volume) 3.64 10*6/uL 4.35-5.85 Venous blood hemoglobin measurement (mass/volume) 11.5 g/dL 11.5-16.0 Blood hematocrit (volume fraction) 36 % 35-52 Automated erythrocyte mean corpuscular volume 98 [ foz_us] 80-99 Automated erythrocyte mean corpuscular h emoglobin (mass per erythrocyte) 32 pg 25-34 Automated erythrocyte mean corpuscular h emoglobin concentration measurement (mass/volume) 32 g/dL 32-36 Automated erythrocyte distribution width ratio 12. 3 % 10.0- 14.5 Automated blood platelet count (count/volume) 216 10*3/uL 130-400 Automated blood platelet mean volume measurement 10.1 [foz_us] 7.4-10.4 Automated blood neutrophils/100 leukocytes 75 % 42-75 Automated blood lymphocytes/100 leukocytes 17 % 12-44 Blood monocytes/100 leukocytes 4 % 0-12 Automated blood eosinophils/100 leukocytes 3 % 0-10 Automated blood basophils/100 leukocytes 1 % 0-10 Blood neutrophils automated count (number/volume) 7.4 10*3 1.8-7.8 Blood lymphocytes automated count (number/volume) 1.7 10*3 1.0-4.0 Blood monocytes automated count (number/volume) 0. 4 10*3 0.0-1.0 Automated eosinophil count 0.3 10*3/uL 0 .0-0.3 Automated blood basophil count (count/volume) 0.1 10*3/uL 0.0-0.1 Comprehensive metabolic panel - 06/01/18 16:03 Serum or plasma sodium measurement (moles/volume) 136 mmol/L 135-145 Serum or plasma potassium measurement (moles/volume) 4.2 mmol/L 3.6-5.0 Serum or plasma chloride measurement (moles/volume) 102 mmol/L 98-107 Carbon dioxide 25 mmol/L 21-32 Serum or plasma anion gap determination (moles/volume) 9 mmol/L 5-14 Serum or plasma urea nitrogen measurement (mass/volume ) 13 mg/dL 7-18 Serum or plasma creatinine measurement (mass/volume) 1.03 mg/dL 0.60-1.30 Serum or plasma urea nitrogen/creatinine mass ratio 13 NRG Serum or plasma creatinine measurement w ith calculation of estimated glomerular filtration rate 54 NRG Serum or plasma glucose measurement (mass/volume) 324 mg/dL 70-105 Serum or plasma calcium measurement (mass/volume) 8.5 mg/dL 8.5-10.1 Serum or plasma total bilirubin measurement (mass/volu me) 0.3 mg/dL 0.1-1.0 Serum or plasma alkaline phosphatase shabana surement (enzymatic activity/volume) 125 U/L 40-136 Serum or plasma aspartate aminotransfera se measurement (enzymatic activity/volume) 38 U/L 5-34 Serum or plasma alanine aminotransferase measurement (enzymatic activity/volume) 36 U/L 0-55 Serum or plasma protein measurement (mass/volume) 6.8 g/dL 6.4-8.2 Serum or plasma albumin measurement (mass/volume) 3.8 g/dL 3.2-4.5 CALCIUM CORRECTED 8.7 mg/dL 8.5-10.1 Magnesium - 06/01/18 16:03 Magnesium 1.4 mg/dL 1.8-2.4 Serum or plasma troponin i.cardiac measu rement (mass/volume) - 06/01/18 16:03 Serum or plasma troponin i.cardiac measurement (mass/v olume) < ng/mL <0.028 THYROID STIMULATING HORMONE - 06/01/18 1 6:03 THYROID STIMULATING HORMONE 6.67 u[iU]/mL 0.35-4.94 Serum or plasma thyroxine (T4) free jenny urement (mass/volume) - 06/01/18 16:03 Serum or plasma thyroxine (T4) free measurement (mass/ volume) 0.95 ng/dL 0.70-1.48 Complete blood count (CBC) with automate d white blood cell (WBC) differential - 09/13/18 08:35 Blood leukocytes automated count (number/volume) 9.2 10*3/uL 4.3-11.0 Blood erythrocytes automated count (number/volume) 3.69 10*6/uL 4.35-5.85 Venous blood hemoglobin measurement (mass/volume) 11.4 g/dL 11.5-16.0 Blood hematocrit (volume fraction) 36 % 35-52 Automated erythrocyte mean corpuscular volume 98 [ foz_us] 80-99 Automated erythrocyte mean corpuscular h emoglobin (mass per erythrocyte) 31 pg 25-34 Automated erythrocyte mean corpuscular h emoglobin concentration measurement (mass/volume) 32 g/dL 32-36 Automated erythrocyte distribution width ratio 12. 8 % 10.0- 14.5 Automated blood platelet count (count/volume) 252 10*3/uL 130-400 Automated blood platelet mean volume measurement 9.4 [foz_us] 7.4-10.4 Automated blood neutrophils/100 leukocytes 80 % 42-75 Automated blood lymphocytes/100 leukocytes 13 % 12-44 Blood monocytes/100 leukocytes 4 % 0-12 Automated blood eosinophils/100 leukocytes 3 % 0-10 Automated blood basophils/100 leukocytes 1 % 0-10 Blood neutrophils automated count (number/volume) 7.4 10*3 1.8-7.8 Blood lymphocytes automated count (number/volume) 1.2 10*3 1.0-4.0 Blood monocytes automated count (number/volume) 0. 4 10*3 0.0-1.0 Automated eosinophil count 0.3 10*3/uL 0 .0-0.3 Automated blood basophil count (count/volume) 0.1 10*3/uL 0.0-0.1 Comprehensive metabolic panel - 09/13/18 08:35 Serum or plasma sodium measurement (moles/volume) 140 mmol/L 135-145 Serum or plasma potassium measurement (moles/volume) 4.6 mmol/L 3.6-5.0 Serum or plasma chloride measurement (moles/volume) 104 mmol/L 98-107 Carbon dioxide 25 mmol/L 21-32 Serum or plasma anion gap determination (moles/volume) 11 mmol/L 5-14 Serum or plasma urea nitrogen measurement (mass/volume ) 14 mg/dL 7-18 Serum or plasma creatinine measurement (mass/volume) 1.01 mg/dL 0.60-1.30 Serum or plasma urea nitrogen/creatinine mass ratio 14 NRG Serum or plasma creatinine measurement w ith calculation of estimated glomerular filtration rate 55 NRG Serum or plasma glucose measurement (mass/volume) 165 mg/dL 70-105 Serum or plasma calcium measurement (mass/volume) 9.1 mg/dL 8.5-10.1 Serum or plasma total bilirubin measurement (mass/volu me) 0.4 mg/dL 0.1-1.0 Serum or plasma alkaline phosphatase shabana surement (enzymatic activity/volume) 130 U/L 40-136 Serum or plasma aspartate aminotransfera se measurement (enzymatic activity/volume) 46 U/L 5-34 Serum or plasma alanine aminotransferase measurement (enzymatic activity/volume) 41 U/L 0-55 Serum or plasma protein measurement (mass/volume) 7.5 g/dL 6.4-8.2 Serum or plasma albumin measurement (mass/volume) 3.9 g/dL 3.2-4.5 CALCIUM CORRECTED 9.2 mg/dL 8.5-10.1 Serum or plasma ferritin measurement (ma ss/volume) - 09/13/18 08:35 Serum or plasma ferritin measurement (mass/volume) 225.3 % 20.0-177.0 Complete blood count (CBC) with automate d white blood cell (WBC) differential - 11/05/18 16:30 Blood leukocytes automated count (number/volume) 9.3 10*3/uL 4.3-11.0 Blood erythrocytes automated count (number/volume) 3.54 10*6/uL 4.35-5.85 Venous blood hemoglobin measurement (mass/volume) 11.2 g/dL 11.5-16.0 Blood hematocrit (volume fraction) 34 % 35-52 Automated erythrocyte mean corpuscular volume 97 [ foz_us] 80-99 Automated erythrocyte mean corpuscular h emoglobin (mass per erythrocyte) 32 pg 25-34 Automated erythrocyte mean corpuscular h emoglobin concentration measurement (mass/volume) 33 g/dL 32-36 Automated erythrocyte distribution width ratio 12. 6 % 10.0- 14.5 Automated blood platelet count (count/volume) 227 10*3/uL 130-400 Automated blood platelet mean volume measurement 9.8 [foz_us] 7.4-10.4 Automated blood neutrophils/100 leukocytes 76 % 42-75 Automated blood lymphocytes/100 leukocytes 16 % 12-44 Blood monocytes/100 leukocytes 5 % 0-12 Automated blood eosinophils/100 leukocytes 2 % 0-10 Automated blood basophils/100 leukocytes 0 % 0-10 Blood neutrophils automated count (number/volume) 7.1 10*3 1.8-7.8 Blood lymphocytes automated count (number/volume) 1.5 10*3 1.0-4.0 Blood monocytes automated count (number/volume) 0. 5 10*3 0.0-1.0 Automated eosinophil count 0.2 10*3/uL 0 .0-0.3 Automated blood basophil count (count/volume) 0.0 10*3/uL 0.0-0.1 Comprehensive metabolic panel - 11/05/18 16:30 Serum or plasma sodium measurement (moles/volume) 138 mmol/L 135-145 Serum or plasma potassium measurement (moles/volume) 4.4 mmol/L 3.6-5.0 Serum or plasma chloride measurement (moles/volume) 101 mmol/L 98-107 Carbon dioxide 22 mmol/L 21-32 Serum or plasma anion gap determination (moles/volume) 15 mmol/L 5-14 Serum or plasma urea nitrogen measurement (mass/volume ) 17 mg/dL 7-18 Serum or plasma creatinine measurement (mass/volume) 1.21 mg/dL 0.60-1.30 Serum or plasma urea nitrogen/creatinine mass ratio 14 NRG Serum or plasma creatinine measurement w ith calculation of estimated glomerular filtration rate 45 NRG Serum or plasma glucose measurement (mass/volume) 295 mg/dL 70-105 Serum or plasma calcium measurement (mass/volume) 8.8 mg/dL 8.5-10.1 Serum or plasma total bilirubin measurement (mass/volu me) 0.2 mg/dL 0.1-1.0 Serum or plasma alkaline phosphatase shabana surement (enzymatic activity/volume) 122 U/L 40-136 Serum or plasma aspartate aminotransfera se measurement (enzymatic activity/volume) 32 U/L 5-34 Serum or plasma alanine aminotransferase measurement (enzymatic activity/volume) 31 U/L 0-55 Serum or plasma protein measurement (mass/volume) 7.2 g/dL 6.4-8.2 Serum or plasma albumin measurement (mass/volume) 3.9 g/dL 3.2-4.5 CALCIUM CORRECTED 8.9 mg/dL 8.5-10.1 Serum or plasma troponin i.cardiac measu rement (mass/volume) - 11/05/18 16:30 Serum or plasma troponin i.cardiac measurement (mass/v olume) < ng/mL <0.028 Complete urinalysis with reflex to cultu re - 12/31/18 18:53 Urine color determination YELLOW NRG Urine clarity determination CLEAR NR G Urine pH measurement by test strip 6 5-9 Specific gravity of urine by test strip 1.010 1.016-1.022 Urine protein assay by test strip, semi-quantitative 2+ NEGATIVE Urine glucose detection by automated test strip 3+ NEGATIVE Erythrocytes detection in urine sediment by light micr oscopy 2+ NEGATIVE Urine ketones detection by automated test strip NE GATIVE NEGATIVE Urine nitrite detection by test strip POSITIVE NEGATIVE Urine total bilirubin detection by test strip NEGA TIVE NEGATIVE Urine urobilinogen measurement by automated test strip (mass/volume) NORMAL NORMAL Urine leukocyte esterase detection by dipstick 3+ NEGATIVE Automated urine sediment erythrocyte cou nt by microscopy (number/high power field) [HPF] NRG Automated urine sediment leukocyte count by microscopy (number/high power field) [HPF] NRG Bacteria detection in urine sediment by light microsco py MODERATE NRG Crystals detection in urine sediment by light microsco py PRESENT NRG Casts detection in urine sediment by light microscopy NONE NRG Mucus detection in urine sediment by light microscopy NEGATIVE NRG Complete urinalysis with reflex to culture YES NRG Amorphous sediment detection in urine sediment by ligh t microscopy FEW MICHELET URATES NRG Bacterial urine culture - 12/31/18 18:53 Bacterial urine culture [id number] NRG COLONY COUNT >100,000/ML NRG FTX;REPORTABLE SUSCEPTIBILITY REPORTED 01-02-19, 1 427 NRG Dirithromycin susceptibility test by dis k diffusion - 12/31/18 18:53 Gentamicin susceptibility test by minimum inhibitory c oncentration <= NRG Trimethoprim/sulfamethoxazole susceptibi lity test by minimum inhibitoryconcentration > NRG Levofloxacin susceptibility test by minimum inhibitory concentration > NRG Ampicillin susceptibility test by minimum inhibitory c oncentration > NRG Cefazolin susceptibility test by minimum inhibitory co ncentration 2 NRG Ceftriaxone susceptibility test by minimum inhibitory concentration <= NRG Ciprofloxacin susceptibility test by minimum inhibitor y concentration > NRG Meropenem susceptibility test by minimum inhibitory co ncentration <= NRG Nitrofurantoin susceptibility test by mi nimum inhibitory concentration <= NRG Amoxicillin and clavulanate potassium susc GIANLUCA = NRG Complete blood count (CBC) with automate d white blood cell (WBC) differential - 12/31/18 19:06 Blood leukocytes automated count (number/volume) 11.0 10*3/uL 4.3-11.0 Blood erythrocytes automated count (number/volume) 3.83 10*6/uL 4.35-5.85 Venous blood hemoglobin measurement (mass/volume) 11.8 g/dL 11.5-16.0 Blood hematocrit (volume fraction) 37 % 35-52 Automated erythrocyte mean corpuscular volume 96 [ foz_us] 80-99 Automated erythrocyte mean corpuscular h emoglobin (mass per erythrocyte) 31 pg 25-34 Automated erythrocyte mean corpuscular h emoglobin concentration measurement (mass/volume) 32 g/dL 32-36 Automated erythrocyte distribution width ratio 12. 8 % 10.0- 14.5 Automated blood platelet count (count/volume) 255 10*3/uL 130-400 Automated blood platelet mean volume measurement 8.9 [foz_us] 7.4-10.4 Automated blood neutrophils/100 leukocytes 72 % 42-75 Automated blood lymphocytes/100 leukocytes 21 % 12-44 Blood monocytes/100 leukocytes 5 % 0-12 Automated blood eosinophils/100 leukocytes 2 % 0-10 Automated blood basophils/100 leukocytes 1 % 0-10 Blood neutrophils automated count (number/volume) 7.9 10*3 1.8-7.8 Blood lymphocytes automated count (number/volume) 2.3 10*3 1.0-4.0 Blood monocytes automated count (number/volume) 0. 5 10*3 0.0-1.0 Automated eosinophil count 0.2 10*3/uL 0 .0-0.3 Automated blood basophil count (count/volume) 0.1 10*3/uL 0.0-0.1 Comprehensive metabolic panel - 12/31/18 19:06 Serum or plasma sodium measurement (moles/volume) 140 mmol/L 135-145 Serum or plasma potassium measurement (moles/volume) 4.2 mmol/L 3.6-5.0 Serum or plasma chloride measurement (moles/volume) 103 mmol/L 98-107 Carbon dioxide 28 mmol/L 21-32 Serum or plasma anion gap determination (moles/volume) 9 mmol/L 5-14 Serum or plasma urea nitrogen measurement (mass/volume ) 12 mg/dL 7-18 Serum or plasma creatinine measurement (mass/volume) 1.03 mg/dL 0.60-1.30 Serum or plasma urea nitrogen/creatinine mass ratio 12 NRG Serum or plasma creatinine measurement w ith calculation of estimated glomerular filtration rate 54 NRG Serum or plasma glucose measurement (mass/volume) 160 mg/dL 70-105 Serum or plasma calcium measurement (mass/volume) 9.3 mg/dL 8.5-10.1 Serum or plasma total bilirubin measurement (mass/volu me) 0.3 mg/dL 0.1-1.0 Serum or plasma alkaline phosphatase shabana surement (enzymatic activity/volume) 140 U/L 40-136 Serum or plasma aspartate aminotransfera se measurement (enzymatic activity/volume) 37 U/L 5-34 Serum or plasma alanine aminotransferase measurement (enzymatic activity/volume) 36 U/L 0-55 Serum or plasma protein measurement (mass/volume) 7.5 g/dL 6.4-8.2 Serum or plasma albumin measurement (mass/volume) 4.1 g/dL 3.2-4.5 CALCIUM CORRECTED 9.2 mg/dL 8.5-10.1 Magnesium - 12/31/18 19:06 Magnesium 1.6 mg/dL 1.6-2.4 Lipase - 12/31/18 19:06 Lipase 23 U/L 8-78 Serum or plasma C reactive protein measu rement (mass/volume) - 12/31/18 19:06 Serum or plasma C reactive protein measurement (mass/v olume) 2.09 mg/dL 0.00-0.50 THYROID STIMULATING HORMONE - 12/31/18 1 9:06 THYROID STIMULATING HORMONE 8.24 u[iU]/mL 0.35-4.94 Serum or plasma thyroxine (T4) free jenny urement (mass/volume) - 12/31/18 19:06 Serum or plasma thyroxine (T4) free measurement (mass/ volume) 0.95 ng/dL 0.70-1.48 Complete blood count (CBC) with automate d white blood cell (WBC) differential - 01/28/19 09:12 Blood leukocytes automated count (number/volume) 10.4 10*3/uL 4.3-11.0 Blood erythrocytes automated count (number/volume) 3.86 10*6/uL 4.35-5.85 Venous blood hemoglobin measurement (mass/volume) 12.0 g/dL 11.5-16.0 Blood hematocrit (volume fraction) 37 % 35-52 Automated erythrocyte mean corpuscular volume 96 [ foz_us] 80-99 Automated erythrocyte mean corpuscular h emoglobin (mass per erythrocyte) 31 pg 25-34 Automated erythrocyte mean corpuscular h emoglobin concentration measurement (mass/volume) 32 g/dL 32-36 Automated erythrocyte distribution width ratio 12. 8 % 10.0- 14.5 Automated blood platelet count (count/volume) 206 10*3/uL 130-400 Automated blood platelet mean volume measurement 9.7 [foz_us] 7.4-10.4 Automated blood neutrophils/100 leukocytes 81 % 42-75 Automated blood lymphocytes/100 leukocytes 13 % 12-44 Blood monocytes/100 leukocytes 4 % 0-12 Automated blood eosinophils/100 leukocytes 2 % 0-10 Automated blood basophils/100 leukocytes 1 % 0-10 Blood neutrophils automated count (number/volume) 8.5 10*3 1.8-7.8 Blood lymphocytes automated count (number/volume) 1.3 10*3 1.0-4.0 Blood monocytes automated count (number/volume) 0. 4 10*3 0.0-1.0 Automated eosinophil count 0.2 10*3/uL 0 .0-0.3 Automated blood basophil count (count/volume) 0.1 10*3/uL 0.0-0.1 Serum or plasma lithium measurement (mol es/volume) - 01/28/19 09:12 BNP PT 219.8 pg/mL <100.0 Complete urinalysis with reflex to cultu re - 02/28/19 15:23 Urine color determination YELLOW NRG Urine clarity determination CLEAR NR G Urine pH measurement by test strip 7.0 5-9 Specific gravity of urine by test strip 1.015 1.016-1.022 Urine protein assay by test strip, semi-quantitative NEGATIVE NEGATIVE Urine glucose detection by automated test strip 3+ NEGATIVE Erythrocytes detection in urine sediment by light micr oscopy NEGATIVE NEGATIVE Urine ketones detection by automated test strip NE GATIVE NEGATIVE Urine nitrite detection by test strip NEGATIVE NEGATIVE Urine total bilirubin detection by test strip NEGA TIVE NEGATIVE Urine urobilinogen measurement by automated test strip (mass/volume) 0.2 mg/dL < = 1.0 Urine leukocyte esterase detection by dipstick NEG ATIVE NEGATIVE Automated urine sediment erythrocyte cou nt by microscopy (number/high power field) [HPF] NRG Automated urine sediment leukocyte count by microscopy (number/high power field) [HPF] NRG Bacteria detection in urine sediment by light microsco py NEGATIVE NRG Squamous epithelial cells detection in u rine sediment by light microscopy 0-2 NRG Crystals detection in urine sediment by light microsco py NONE NRG Casts detection in urine sediment by light microscopy NONE NRG Mucus detection in urine sediment by light microscopy NEGATIVE NRG Complete urinalysis with reflex to culture NO NRG Complete blood count (CBC) with automate d white blood cell (WBC) differential - 02/28/19 16:02 Blood leukocytes automated count (number/volume) 10.1 10*3/uL 4.3-11.0 Blood erythrocytes automated count (number/volume) 3.85 10*6/uL 4.35-5.85 Venous blood hemoglobin measurement (mass/volume) 12.0 g/dL 11.5-16.0 Blood hematocrit (volume fraction) 37 % 35-52 Automated erythrocyte mean corpuscular volume 97 [ foz_us] 80-99 Automated erythrocyte mean corpuscular h emoglobin (mass per erythrocyte) 31 pg 25-34 Automated erythrocyte mean corpuscular h emoglobin concentration measurement (mass/volume) 32 g/dL 32-36 Automated erythrocyte distribution width ratio 12. 6 % 10.0- 14.5 Automated blood platelet count (count/volume) 211 10*3/uL 130-400 Automated blood platelet mean volume measurement 9.9 [foz_us] 7.4-10.4 Automated blood neutrophils/100 leukocytes 79 % 42-75 Automated blood lymphocytes/100 leukocytes 15 % 12-44 Blood monocytes/100 leukocytes 4 % 0-12 Automated blood eosinophils/100 leukocytes 2 % 0-10 Automated blood basophils/100 leukocytes 1 % 0-10 Blood neutrophils automated count (number/volume) 7.9 10*3 1.8-7.8 Blood lymphocytes automated count (number/volume) 1.5 10*3 1.0-4.0 Blood monocytes automated count (number/volume) 0. 4 10*3 0.0-1.0 Automated eosinophil count 0.2 10*3/uL 0 .0-0.3 Automated blood basophil count (count/volume) 0.1 10*3/uL 0.0-0.1 Comprehensive metabolic panel - 02/28/19 16:02 Serum or plasma sodium measurement (moles/volume) 138 mmol/L 135-145 Serum or plasma potassium measurement (moles/volume) 4.5 mmol/L 3.6-5.0 Serum or plasma chloride measurement (moles/volume) 101 mmol/L 98-107 Carbon dioxide 25 mmol/L 21-32 Serum or plasma anion gap determination (moles/volume) 12 mmol/L 5-14 Serum or plasma urea nitrogen measurement (mass/volume ) 17 mg/dL 7-18 Serum or plasma creatinine measurement (mass/volume) 1.19 mg/dL 0.60-1.30 Serum or plasma urea nitrogen/creatinine mass ratio 14 NRG Serum or plasma creatinine measurement w ith calculation of estimated glomerular filtration rate 46 NRG Serum or plasma glucose measurement (mass/volume) 242 mg/dL 70-105 Serum or plasma calcium measurement (mass/volume) 8.8 mg/dL 8.5-10.1 Serum or plasma total bilirubin measurement (mass/volu me) 0.3 mg/dL 0.1-1.0 Serum or plasma alkaline phosphatase shabana surement (enzymatic activity/volume) 123 U/L 40-136 Serum or plasma aspartate aminotransfera se measurement (enzymatic activity/volume) 38 U/L 5-34 Serum or plasma alanine aminotransferase measurement (enzymatic activity/volume) 33 U/L 0-55 Serum or plasma protein measurement (mass/volume) 7.2 g/dL 6.4-8.2 Serum or plasma albumin measurement (mass/volume) 3.9 g/dL 3.2-4.5 CALCIUM CORRECTED 8.9 mg/dL 8.5-10.1 Lipase - 02/28/19 16:02 Lipase 17 U/L 8-78 Complete blood count (CBC) with automate d white blood cell (WBC) differential - 03/22/19 08:15 Blood leukocytes automated count (number/volume) 8.7 10*3/uL 4.3-11.0 Blood erythrocytes automated count (number/volume) 4.01 10*6/uL 4.35-5.85 Venous blood hemoglobin measurement (mass/volume) 12.2 g/dL 11.5-16.0 Blood hematocrit (volume fraction) 38 % 35-52 Automated erythrocyte mean corpuscular volume 96 [ foz_us] 80-99 Automated erythrocyte mean corpuscular h emoglobin (mass per erythrocyte) 30 pg 25-34 Automated erythrocyte mean corpuscular h emoglobin concentration measurement (mass/volume) 32 g/dL 32-36 Automated erythrocyte distribution width ratio 12. 6 % 10.0- 14.5 Automated blood platelet count (count/volume) 207 10*3/uL 130-400 Automated blood platelet mean volume measurement 9.9 [foz_us] 7.4-10.4 Automated blood neutrophils/100 leukocytes 77 % 42-75 Automated blood lymphocytes/100 leukocytes 15 % 12-44 Blood monocytes/100 leukocytes 4 % 0-12 Automated blood eosinophils/100 leukocytes 3 % 0-10 Automated blood basophils/100 leukocytes 1 % 0-10 Blood neutrophils automated count (number/volume) 6.7 10*3 1.8-7.8 Blood lymphocytes automated count (number/volume) 1.3 10*3 1.0-4.0 Blood monocytes automated count (number/volume) 0. 4 10*3 0.0-1.0 Automated eosinophil count 0.3 10*3/uL 0 .0-0.3 Automated blood basophil count (count/volume) 0.1 10*3/uL 0.0-0.1 Comprehensive metabolic panel - 03/22/19 08:15 Serum or plasma sodium measurement (moles/volume) 140 mmol/L 135-145 Serum or plasma potassium measurement (moles/volume) 4.4 mmol/L 3.6-5.0 Serum or plasma chloride measurement (moles/volume) 103 mmol/L 98-107 Carbon dioxide 25 mmol/L 21-32 Serum or plasma anion gap determination (moles/volume) 12 mmol/L 5-14 Serum or plasma urea nitrogen measurement (mass/volume ) 13 mg/dL 7-18 Serum or plasma creatinine measurement (mass/volume) 1.04 mg/dL 0.60-1.30 Serum or plasma urea nitrogen/creatinine mass ratio 13 NRG Serum or plasma creatinine measurement w ith calculation of estimated glomerular filtration rate 53 NRG Serum or plasma glucose measurement (mass/volume) 180 mg/dL 70-105 Serum or plasma calcium measurement (mass/volume) 8.7 mg/dL 8.5-10.1 Serum or plasma total bilirubin measurement (mass/volu me) 0.2 mg/dL 0.1-1.0 Serum or plasma alkaline phosphatase shabana surement (enzymatic activity/volume) 117 U/L 40-136 Serum or plasma aspartate aminotransfera se measurement (enzymatic activity/volume) 31 U/L 5-34 Serum or plasma alanine aminotransferase measurement (enzymatic activity/volume) 34 U/L 0-55 Serum or plasma protein measurement (mass/volume) 7.4 g/dL 6.4-8.2 Serum or plasma albumin measurement (mass/volume) 4.0 g/dL 3.2-4.5 CALCIUM CORRECTED 8.7 mg/dL 8.5-10.1 Serum or plasma troponin i.cardiac measu rement (mass/volume) - 03/22/19 08:15 Serum or plasma troponin i.cardiac measurement (mass/v olume) < ng/mL <0.028 Serum or plasma C reactive protein measu rement (mass/volume) - 03/22/19 08:15 Serum or plasma C reactive protein measurement (mass/v olume) 1.14 mg/dL 0.00-0.50 Complete urinalysis with reflex to cultu re - 03/22/19 08:29 Urine color determination YELLOW NRG Urine clarity determination CLEAR NR G Urine pH measurement by test strip 6.0 5-9 Specific gravity of urine by test strip 1.020 1.016-1.022 Urine protein assay by test strip, semi-quantitative NEGATIVE NEGATIVE Urine glucose detection by automated test strip NE GATIVE NEGATIVE Erythrocytes detection in urine sediment by light micr oscopy NEGATIVE NEGATIVE Urine ketones detection by automated test strip NE GATIVE NEGATIVE Urine nitrite detection by test strip NEGATIVE NEGATIVE Urine total bilirubin detection by test strip NEGA TIVE NEGATIVE Urine urobilinogen measurement by automated test strip (mass/volume) 0.2 mg/dL < = 1.0 Urine leukocyte esterase detection by dipstick NEG ATIVE NEGATIVE Automated urine sediment erythrocyte cou nt by microscopy (number/high power field) NONE NRG Automated urine sediment leukocyte count by microscopy (number/high power field) [HPF] NRG Bacteria detection in urine sediment by light microsco py NEGATIVE NRG Squamous epithelial cells detection in u rine sediment by light microscopy 5-10 NRG Crystals detection in urine sediment by light microsco py NONE NRG Casts detection in urine sediment by light microscopy NONE NRG Mucus detection in urine sediment by light microscopy NEGATIVE NRG Complete urinalysis with reflex to culture NO NRG Yeast detection in urine sediment by light microscopy FEW NRG Complete urinalysis with reflex to cultu re - 04/11/19 08:20 Urine color determination YELLOW NRG Urine clarity determination CLEAR NR G Urine pH measurement by test strip 7.0 5-9 Specific gravity of urine by test strip 1.010 1.016-1.022 Urine protein assay by test strip, semi-quantitative NEGATIVE NEGATIVE Urine glucose detection by automated test strip NE GATIVE NEGATIVE Erythrocytes detection in urine sediment by light micr oscopy NEGATIVE NEGATIVE Urine ketones detection by automated test strip NE GATIVE NEGATIVE Urine nitrite detection by test strip NEGATIVE NEGATIVE Urine total bilirubin detection by test strip NEGA TIVE NEGATIVE Urine urobilinogen measurement by automated test strip (mass/volume) 0.2 mg/dL < = 1.0 Urine leukocyte esterase detection by dipstick NEG ATIVE NEGATIVE Automated urine sediment erythrocyte cou nt by microscopy (number/high power field) NONE NRG Automated urine sediment leukocyte count by microscopy (number/high power field) NONE NRG Bacteria detection in urine sediment by light microsco py NEGATIVE NRG Squamous epithelial cells detection in u rine sediment by light microscopy 0-2 NRG Crystals detection in urine sediment by light microsco py NONE NRG Casts detection in urine sediment by light microscopy NONE NRG Mucus detection in urine sediment by light microscopy NEGATIVE NRG Complete urinalysis with reflex to culture CULTURE PENDING NRG Bacterial urine culture - 04/11/19 08:20 Bacterial urine culture 3 OR MORE NRG COLONY COUNT 60,000 cfu/ml NRG FTX;REPORTABLE (GRAM POSITIVE) SUGGESTING PROBABLE NRG FREE TEXT ENTRY 2 COLLECTION CONTAMINATION WITH SK IN NRG FREE TEXT ENTRY 3 TIMMY. NO SUSCEPTIBILITY PERFOR MED NRG Complete blood count (CBC) with automate d white blood cell (WBC) differential - 04/11/19 08:30 Blood leukocytes automated count (number/volume) 8.3 10*3/uL 4.3-11.0 Blood erythrocytes automated count (number/volume) 3.97 10*6/uL 4.35-5.85 Venous blood hemoglobin measurement (mass/volume) 12.3 g/dL 11.5-16.0 Blood hematocrit (volume fraction) 38 % 35-52 Automated erythrocyte mean corpuscular volume 96 [ foz_us] 80-99 Automated erythrocyte mean corpuscular h emoglobin (mass per erythrocyte) 31 pg 25-34 Automated erythrocyte mean corpuscular h emoglobin concentration measurement (mass/volume) 32 g/dL 32-36 Automated erythrocyte distribution width ratio 12. 6 % 10.0- 14.5 Automated blood platelet count (count/volume) 238 10*3/uL 130-400 Automated blood platelet mean volume measurement 9.6 [foz_us] 7.4-10.4 Automated blood neutrophils/100 leukocytes 77 % 42-75 Automated blood lymphocytes/100 leukocytes 16 % 12-44 Blood monocytes/100 leukocytes 4 % 0-12 Automated blood eosinophils/100 leukocytes 2 % 0-10 Automated blood basophils/100 leukocytes 1 % 0-10 Blood neutrophils automated count (number/volume) 6.4 10*3 1.8-7.8 Blood lymphocytes automated count (number/volume) 1.3 10*3 1.0-4.0 Blood monocytes automated count (number/volume) 0. 4 10*3 0.0-1.0 Automated eosinophil count 0.2 10*3/uL 0 .0-0.3 Automated blood basophil count (count/volume) 0.1 10*3/uL 0.0-0.1 Blood lactic acid measurement (moles/vol ume) - 04/11/19 08:30 Blood lactic acid measurement (moles/volume) 1.21 mmol/L 0.50-2.00 PT panel in platelet poor plasma by coag ulation assay - 04/11/19 08:30 Prothrombin time (PT) in platelet poor plasma by coagu lation assay 13.9 s 12.2-14.7 INR in platelet poor plasma or blood by coagulation as say 1.0 0.8-1.4 Activated partial thromboplastin time (a PTT) in platelet poor plasma bycoagulation assay - 04/11/19 08:30 Activated partial thromboplastin time (a PTT) in platelet poor plasma bycoagulation assay 34 s 24-35 Comprehensive metabolic panel - 04/11/19 08:30 Serum or plasma sodium measurement (moles/volume) 138 mmol/L 135-145 Serum or plasma potassium measurement (moles/volume) 4.6 mmol/L 3.6-5.0 Serum or plasma chloride measurement (moles/volume) 101 mmol/L 98-107 Carbon dioxide 26 mmol/L 21-32 Serum or plasma anion gap determination (moles/volume) 11 mmol/L 5-14 Serum or plasma urea nitrogen measurement (mass/volume ) 15 mg/dL 7-18 Serum or plasma creatinine measurement (mass/volume) 0.91 mg/dL 0.60-1.30 Serum or plasma urea nitrogen/creatinine mass ratio 16 NRG Serum or plasma creatinine measurement w ith calculation of estimated glomerular filtration rate > NRG Serum or plasma glucose measurement (mass/volume) 171 mg/dL 70-105 Serum or plasma calcium measurement (mass/volume) 9.0 mg/dL 8.5-10.1 Serum or plasma total bilirubin measurement (mass/volu me) 0.3 mg/dL 0.1-1.0 Serum or plasma alkaline phosphatase shabana surement (enzymatic activity/volume) 121 U/L 40-136 Serum or plasma aspartate aminotransfera se measurement (enzymatic activity/volume) 48 U/L 5-34 Serum or plasma alanine aminotransferase measurement (enzymatic activity/volume) 46 U/L 0-55 Serum or plasma protein measurement (mass/volume) 7.0 g/dL 6.4-8.2 Serum or plasma albumin measurement (mass/volume) 3.8 g/dL 3.2-4.5 CALCIUM CORRECTED 9.2 mg/dL 8.5-10.1 Magnesium - 04/11/19 08:30 Magnesium 1.4 mg/dL 1.6-2.4 Bacterial blood culture - 04/11/19 08:30 Bacterial blood culture NG [facility] Bacterial blood culture - 04/11/19 08:45 Bacterial blood culture NG [facility] Influenza virus A and B antigen detectio n - 05/14/19 14:51 FLU RESULT NEGATIVE FOR INFLUENZA A AND B ANTIGENS BY [facility] [place] Complete blood count (CBC) with automate d white blood cell (WBC) differential - 05/14/19 15:23 Blood leukocytes automated count (number/volume) 10.9 10*3/uL 4.3-11.0 Blood erythrocytes automated count (number/volume) 3.61 10*6/uL 4.35-5.85 Venous blood hemoglobin measurement (mass/volume) 11.3 g/dL 11.5-16.0 Blood hematocrit (volume fraction) 35 % 35-52 Automated erythrocyte mean corpuscular volume 98 [ foz_us] 80-99 Automated erythrocyte mean corpuscular h emoglobin (mass per erythrocyte) 31 pg 25-34 Automated erythrocyte mean corpuscular h emoglobin concentration measurement (mass/volume) 32 g/dL 32-36 Automated erythrocyte distribution width ratio 13. 4 % 10.0- 14.5 Automated blood platelet count (count/volume) 232 10*3/uL 130-400 Automated blood platelet mean volume measurement 9.6 [foz_us] 7.4-10.4 Automated blood neutrophils/100 leukocytes 80 % 42-75 Automated blood lymphocytes/100 leukocytes 14 % 12-44 Blood monocytes/100 leukocytes 4 % 0-12 Automated blood eosinophils/100 leukocytes 2 % 0-10 Automated blood basophils/100 leukocytes 0 % 0-10 Blood neutrophils automated count (number/volume) 8.7 10*3 1.8-7.8 Blood lymphocytes automated count (number/volume) 1.5 10*3 1.0-4.0 Blood monocytes automated count (number/volume) 0. 5 10*3 0.0-1.0 Automated eosinophil count 0.2 10*3/uL 0 .0-0.3 Automated blood basophil count (count/volume) 0.0 10*3/uL 0.0-0.1 Comprehensive metabolic panel - 05/14/19 15:23 Serum or plasma sodium measurement (moles/volume) 139 mmol/L 135-145 Serum or plasma potassium measurement (moles/volume) 4.6 mmol/L 3.6-5.0 Serum or plasma chloride measurement (moles/volume) 106 mmol/L 98-107 Carbon dioxide 22 mmol/L 21-32 Serum or plasma anion gap determination (moles/volume) 11 mmol/L 5-14 Serum or plasma urea nitrogen measurement (mass/volume ) 16 mg/dL 7-18 Serum or plasma creatinine measurement (mass/volume) 1.19 mg/dL 0.60-1.30 Serum or plasma urea nitrogen/creatinine mass ratio 13 NRG Serum or plasma creatinine measurement w ith calculation of estimated glomerular filtration rate 46 NRG Serum or plasma glucose measurement (mass/volume) 162 mg/dL 70-105 Serum or plasma calcium measurement (mass/volume) 9.2 mg/dL 8.5-10.1 Serum or plasma total bilirubin measurement (mass/volu me) 0.3 mg/dL 0.1-1.0 Serum or plasma alkaline phosphatase shabana surement (enzymatic activity/volume) 108 U/L 40-136 Serum or plasma aspartate aminotransfera se measurement (enzymatic activity/volume) 33 U/L 5-34 Serum or plasma alanine aminotransferase measurement (enzymatic activity/volume) 32 U/L 0-55 Serum or plasma protein measurement (mass/volume) 7.2 g/dL 6.4-8.2 Serum or plasma albumin measurement (mass/volume) 3.7 g/dL 3.2-4.5 CALCIUM CORRECTED 9.4 mg/dL 8.5-10.1 Serum or plasma troponin i.cardiac measu rement (mass/volume) - 05/14/19 15:23 Serum or plasma troponin i.cardiac measurement (mass/v olume) < ng/mL <0.028 Serum or plasma C reactive protein measu rement (mass/volume) - 05/14/19 15:23 Serum or plasma C reactive protein measurement (mass/v olume) 1.86 mg/dL 0.00-0.50 Complete blood count (CBC) with automate d white blood cell (WBC) differential - 05/15/19 06:00 Blood leukocytes automated count (number/volume) 8.4 10*3/uL 4.3-11.0 Blood erythrocytes automated count (number/volume) 3.73 10*6/uL 4.35-5.85 Venous blood hemoglobin measurement (mass/volume) 11.5 g/dL 11.5-16.0 Blood hematocrit (volume fraction) 36 % 35-52 Automated erythrocyte mean corpuscular volume 97 [ foz_us] 80-99 Automated erythrocyte mean corpuscular h emoglobin (mass per erythrocyte) 31 pg 25-34 Automated erythrocyte mean corpuscular h emoglobin concentration measurement (mass/volume) 32 g/dL 32-36 Automated erythrocyte distribution width ratio 13. 6 % 10.0- 14.5 Automated blood platelet count (count/volume) 236 10*3/uL 130-400 Automated blood platelet mean volume measurement 9.4 [foz_us] 7.4-10.4 Automated blood neutrophils/100 leukocytes 77 % 42-75 Automated blood lymphocytes/100 leukocytes 15 % 12-44 Blood monocytes/100 leukocytes 5 % 0-12 Automated blood eosinophils/100 leukocytes 3 % 0-10 Automated blood basophils/100 leukocytes 0 % 0-10 Blood neutrophils automated count (number/volume) 6.4 10*3 1.8-7.8 Blood lymphocytes automated count (number/volume) 1.2 10*3 1.0-4.0 Blood monocytes automated count (number/volume) 0. 4 10*3 0.0-1.0 Automated eosinophil count 0.3 10*3/uL 0 .0-0.3 Automated blood basophil count (count/volume) 0.0 10*3/uL 0.0-0.1 Whole blood basic metabolic panel - 10/26 06:00 Serum or plasma sodium measurement (moles/volume) 138 mmol/L 135-145 Serum or plasma potassium measurement (moles/volume) 4.4 mmol/L 3.6-5.0 Serum or plasma chloride measurement (moles/volume) 105 mmol/L 98-107 Carbon dioxide 23 mmol/L 21-32 Serum or plasma anion gap determination (moles/volume) 10 mmol/L 5-14 Serum or plasma urea nitrogen measurement (mass/volume ) 19 mg/dL 7-18 Serum or plasma creatinine measurement (mass/volume) 1.10 mg/dL 0.60-1.30 Serum or plasma urea nitrogen/creatinine mass ratio 17 NRG Serum or plasma creatinine measurement w ith calculation of estimated glomerular filtration rate 50 NRG Serum or plasma glucose measurement (mass/volume) 203 mg/dL 70-105 Serum or plasma calcium measurement (mass/volume) 8.9 mg/dL 8.5-10.1 Serum or plasma C reactive protein measu rement (mass/volume) - 05/15/19 06:00 Serum or plasma C reactive protein measurement (mass/v olume) 1.88 mg/dL 0.00-0.50 Serum or plasma lithium measurement (mol es/volume) - 05/15/19 06:00 BNP PT 334.7 pg/mL <100.0 Complete urinalysis with reflex to cultu re - 05/15/19 06:06 Urine color determination YELLOW NRG Urine clarity determination CLEAR NR G Urine pH measurement by test strip 6.0 5-9 Specific gravity of urine by test strip 1.020 1.016-1.022 Urine protein assay by test strip, semi-quantitative NEGATIVE NEGATIVE Urine glucose detection by automated test strip 1+ NEGATIVE Erythrocytes detection in urine sediment by light micr oscopy NEGATIVE NEGATIVE Urine ketones detection by automated test strip NE GATIVE NEGATIVE Urine nitrite detection by test strip NEGATIVE NEGATIVE Urine total bilirubin detection by test strip NEGA TIVE NEGATIVE Urine urobilinogen measurement by automated test strip (mass/volume) 0.2 mg/dL < = 1.0 Urine leukocyte esterase detection by dipstick NEG ATIVE NEGATIVE Automated urine sediment erythrocyte cou nt by microscopy (number/high power field) NONE NRG Automated urine sediment leukocyte count by microscopy (number/high power field) NONE NRG Bacteria detection in urine sediment by light microsco py TRACE NRG Squamous epithelial cells detection in u rine sediment by light microscopy 10-25 NRG Crystals detection in urine sediment by light microsco py NONE NRG Casts detection in urine sediment by light microscopy NONE NRG Mucus detection in urine sediment by light microscopy SMALL NRG Complete urinalysis with reflex to culture NO NRG Encounters ACCT No. Visit Date/Time Discharge Status Pt. Type Provider Facility Loc./Unit Complaint [id number] 04/24/2019 17:50:00 04/24/2019 23:59: 59 CLS Outpatient DONALDO [facility] [id number] 05/15/2019 05:49:00 07:56:00 DIS Emergency SHARLA DOWNS MD [facility] ER UPPER RESP INFE CTION [id number] 05/14/2019 14:49:00 16:32:00 DIS Emergency SHARLA DOWNS MD [facility] ER SOA [id number] 04/11/2019 07:10:00 15:39:00 DIS Emergency TO GRAY MD [facility] ER FLU;HEADACHE [id number] 03/22/2019 07:47:00 09:58:00 DIS Emergency SHARLA DOWNS MD [facility] ER HEADACHE [id number] 03/17/2019 08:57:00 23:59:59 CLS Outpatient NORA ESCAMILLA [facility] ONC [id number] 02/28/2019 13:40:00 17:23:00 DIS Emergency 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 R SIDE PAIN [id number] 12/31/2018 16:40:00 20:25:00 DIS Emergency DAVIN DODSON MD [facility] ER ABD PAIN,DIARRH EA [id number] 09/24/2018 07:56:00 00:01:00 DIS Outpatient NORA ESCAMILLA [facility] ONC [id number] 12/06/2018 09:15:00 23:59:59 CLS Outpatient LOUISE LAND [employer]UM[employer]ING [employer]SEM[employer] INST[employer]ER [facility] RAD RENAL/URETERAL COLIC,ACUTE CYSTITIS W/O HEMATURIA [id number] 11/05/2018 16:10:00 17:58:00 DIS Emergency 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 SOB [id number] 04/26/2018 08:24:00 00:01:00 DIS Outpatient NORA ESCAMILLA [facility] ONC [id number] 07/01/2018 00:10:00 23:59:59 CLS Preadmit MARIPOSA SANCHEZ [employer]UM[employer]ING [employer]SEM[employer]ER INSTALLER [facility] PULM RESTRICTIVE JONATHON G DISEASE,SOB DYSPNEA [id number] 06/01/2018 09:00:00 019 00:01:00 DIS Outpatient MARIPOSA SANCHEZ [employer]UMBING ASSEM[employer]ER INSTALLER [facility] PULM RESTRICTIVE JONATHON G DISEASE,SOB DYSPNEA [id number] 06/01/2018 15:43:00 17:59:00 DIS Emergency TO GRAY MD [facility] ER HEART RATE PROBLEMS [id number] 05/07/2018 20:33:00 06:53:00 DIS Outpatient MARIPOSA SANCHEZ APRN [facility] SLEEP JAD, ASTHMA, AN TERIOR CHEST WALL PAIN [id number] 03/30/2018 20:05:00 06:10:00 DIS Outpatient MARIPOSA SANCHEZ PLUMBING ASSEMBLER INSTALLER [facility] SLEEP HYPOXEMIA,ASTHM A,SOB [id number] 03/29/2018 21:00:00 23:59:59 CLS Preadmit MARIPOSA SANCHEZ PLUMBING ASSEMBLER INSTALLER [facility] SLEEP JAD,ASTHMA,SOB DYSPNEA [id number] 03/18/2018 09:00:00 019 00:01:00 DIS Outpatient MARIPOSA SANCHEZ PLUMBING ASSEMBLER INSTALLER [facility] PULM RESTRICTIVE JONATHON G DISEASE,SOB DYSPNEA [id number] 12/24/2017 08:56:00 00:01:00 DIS Outpatient NORA ESCAMILLA [facility] ONC [id number] 02/23/2018 08:19:00 23:59:59 CLS Outpatient MARIPOSA SANCHEZ PLUMBING ASSEMBLER INSTALLER [facility] RAD RESTRICTIVE JONATHON G DISEASE [id number] 02/02/2018 06:34:00 10:45:00 DIS Outpatient MARILY PANDEY DO [facility] ENDO IRON DEF ANEMIA [id number] 01/27/2018 13:15:00 14:09:00 DIS Outpatient MARILY PANDEY DO [facility] PREOP COLONOSCOPY/EGD [id number] 12/09/2017 11:59:00 23:59:59 CLS Outpatient LOUISE LAND PLUMBING ASSEMBLER INSTALLER [facility] RAD DYSURIA [id number] 11/30/2017 10:16:00 018 00:01:00 DIS Outpatient MARIPOSA SANCHEZ PLUMBING ASSEMBLER INSTALLER [facility] RT RESTRICTIVE JONATHON G DISEASE,SOB DYSPNEA [id number] 11/19/2017 08:53:00 018 00:01:00 DIS Outpatient NORA ESCAMILLA [facility] ONC [id number] 12/02/2017 08:21:00 018 23:59:59 CLS Outpatient ABI PANG [employer]UMBING ASSEMBLER INSTALLER [facility] RAD BREAST NODULE [id number] 11/27/2017 13:53:00 018 23:59:59 CLS Outpatient ABI PANG PLUMBING ASSEMBLER INSTALLER [facility] RAD BREAST NODULE [id number] 11/10/2017 07:02:00 09:15:00 DIS Outpatient MARILY PANDEY DO [facility] ENDO DYSPHAGIA [id number] 11/02/2017 09:33:00 14:05:00 DIS Inpatient LARRY MURILLO DO [facility] 4TH CP/SOB [id number] 11/04/2017 05:54:00 018 10:11:00 DIS Outpatient MARILY PANDEY DO D [facility] PREOP EGD [id number] 11/01/2017 00:09:00 018 23:59:59 CLS Preadmit BATSHEVA LARKIN, KIYA R [facility] CR3 WELLNESS [id number] 10/06/2017 06:00:00 018 00:01:00 DIS Outpatient BATSHEVA LARKIN, KIYA R [facility]3 WELLNESS [id number] 10/29/2017 16:54:00 018 21:02:00 DIS Emergency MAGDY ZIEGLER APRN [facility] ER CP [id number] 09/04/2017 08:54:00 018 00:01:00 DIS Outpatient BATSHEVA LARKIN, KIYA R [facility] CR3 WELLNESS [id number] 08/12/2017 16:03:00 018 00:01:00 DIS Outpatient BATSHEVA LARKIN, KIYA R [facility] CR3 WELLNESS [id number] 06/15/2017 17:00:00 018 00:01:00 DIS Outpatient BATSHEVA LARKIN, KIYA R [facility] CR3 WELLNESS [id number] 06/19/2017 07:17:00 018 23:59:59 CLS Outpatient BATSHEVA LARKIN, KIYA R [facility] RAD PAIN IN LEFT LOWER LEG [id number] 11/18/2016 09:15:00 017 23:59:59 CLS Outpatient BATSHEVA LARKIN, KIYA R [facility] RAD R07.81;PELVIC PAIN [id number] 10/15/2016 07:30:00 017 23:59:59 CLS Outpatient BATSHEVA LARKIN, KIYA R [facility] RAD R10.2 625.9 [id number] 07/01/2016 08:48:00 017 23:59:59 CLS Outpatient LEANNA BROOKE MD [facility] RAD SCREENING [id number] 05/27/2016 08:37:00 017 08:37:00 CAN Preadmit BATSHEVA LARKIN, KIYA Wei [facility] RAD PNEUMONIA [id number] 05/26/2016 09:02:00 017 23:59:59 CLS Outpatient KIYA HERMAN MD [facility] RAD PNEUMONIA [id number] 05/06/2016 13:01:00 017 11:30:00 DIS Inpatient NURY LARKIN, WHIT Stephen [facility] IRF CAROTID STENOSIS [id number] 04/16/2016 08:35:00 017 23:59:59 CLS Outpatient SAM HEALY MD [facility] CARD CARTOID ARTERY STENOSIS [id number] 04/07/2016 00:41:00 017 03:26:00 DIS Emergency DAVIN DODSON MD [facility] ER OVERDOSE OF INS ULIN [id number] 03/26/2016 06:47:00 017 23:59:59 CLS Outpatient NGHIA GUTIERREZ MD [facility] CARD ANTERIOR CHEST WALL TANIA N [id number] 03/25/2016 11:07:00 017 23:59:59 CLS Outpatient NGHIA GUTIERREZ MD [facility] LAB CAD,ANTERIOR CHEST WALL PAIN [id number] 02/04/2016 00:08:00 016 23:59:59 CLS Preadmit KIYA HERMAN MD [facility] LAB ANEMIA [id number] 11/06/2015 08:01:00 016 00:01:00 DIS Outpatient KIYA HERMNA MD [facility] LAB ANEMIA [id number] 12/31/2015 03:53:00 016 05:28:00 DIS Emergency DAVIN DODSON MD [facility] ER L LEG PAIN [id number] 12/26/2015 06:40:00 08:45:00 DIS Outpatient NGHIA GUTIERREZ MD [facility] CATH CHEST PAIN,ABN STRESS,H TN [id number] 12/12/2015 07:28:00 23:59:59 CLS Outpatient NGHIA GUTIERREZ MD [facility] CARD CHEST PAIN SYNDROME,HTN,SOB,OBSTRUCTIVE SLEEP APNE [id number] 11/29/2015 10:15:00 23:59:59 CLS Preadmit MARIPOSA SANCHEZ APRN [facility] PULM DYSPNEA [id number] 10/18/2015 09:00:00 00:01:00 DIS Outpatient MARIPOSA SANCHEZ APRN [facility] PULM DYSPNEA [id number] 11/27/2015 07:29:00 23:59:59 CLS Outpatient NGHIA GUTIERREZ MD [facility] CARD CHEST PAIN SYNDROME,HTN,SOB,OBSTRUCTIVE SLEEP APNE [id number] 11/23/2015 16:24:00 17:44:00 DIS Emergency 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 FATIGUE/LOW SUGAR [id number] 11/02/2015 10:33:00 12:04:00 DIS Emergency 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 SOA [id number] 10/05/2015 13:16:00 23:59:59 CLS Outpatient MARCELO SAEZ MD [facility] RAD SPONDYLOSISTHESIS [id number] 08/23/2015 09:00:00 23:59:59 CLS Outpatient MARIPOSA SANCHEZ APRN [facility] PULM DYSPNEA [id number] 06/28/2015 07:07:00 23:59:59 CLS Outpatient LEANNA BROOKE MD [facility] RAD SCREENING [id number] 04/24/2015 06:43:00 02/16/2 016 23:59:59 CLS Outpatient SEGLIE MD, KIYA R [facility] RAD RUQ PAIN [id number] 03/15/2015 19:48:00 016 06:50:00 DIS Outpatient MARIPOSA SANCHEZ APRN [facility] SLEEP JAD,SNORING, [id number] 03/05/2015 08:13:00 23:59:59 CLS Outpatient LARRY MURILLO DO [facility] RAD HTN,ASTHMA [id number] 02/11/2015 19:37:00 06:45:00 DIS Outpatient LARRY MURILLO DO [facility] SLEEP HTN,SNORING,DAYTIME SLE EPINESS [id number] 01/17/2015 16:11:00 23:59:59 CLS Outpatient LARRY MURILLO DO [facility] RT HTN,DIABETES,OBESITY,HL P [id number] 12/15/2014 05:43:00 07:30:00 DIS Emergency MERCY LARKIN, RUSLAN Warner [facility] ER ANXIETY [id number] 11/09/2014 13:15:00 23:59:59 CLS Outpatient ABBIE HERNANDEZ APRN [facility] RAD BILATERAL RENNY ICATION OF LOWER LIMB DIABETES JOSE [id number] 11/03/2014 13:29:00 15:52:00 DIS Emergency AURELIO LARKIN, JUSTINO Clay [facility] ER CHEST PAIN [id number] 09/06/2014 07:28:00 23:59:59 CLS Outpatient KIYA HERMAN MD [facility] RAD PERSISTANT HEADACHE,FRO NTAL [id number] 08/30/2014 09:39:00 23:59:59 CLS Outpatient KIYA HERMAN MD [facility] RAD PERSISTANT COUGH [id number] 06/23/2014 06:51:00 23:59:59 CLS Outpatient LEANNA BROOKE MD [facility] RAD SCREENING [id number] 06/12/2014 00:11:00 23:59:59 CLS Preadmit KIYA HERMAN MD [facility] LAB SYMPTOMS INVOLVING URIN DANA TRACT [id number] 03/13/2014 15:59:00 00:01:00 DIS Outpatient KIYA HERMAN MD [facility] LAB SYMPTOMS INVOLVING URIN DANA TRACT [id number] 06/21/2013 08:07:00 014 23:59:59 CLS Outpatient LEANNA BROOKE MD [facility] RAD SCREENING [id number] 12/02/2012 14:22:00 00:01:00 DIS Outpatient KIYA HERMAN MD [facility] WEAKNESS [id number] 01/05/2013 08:23:00 11:35:00 DIS Outpatient MARQUITA HERNANDEZ MD [facility] PEPTIC ULCER DISEASE; A NEMIA [id number] 12/30/2012 07:15:00 23:59:59 CLS Outpatient MARQUITA HERNANDEZ MD [facility] PREOP PEPTIC ULCER DISEASE; A NEMIA [id number] 12/23/2012 15:40:00 23:59:59 CLS Outpatient KIYA HERMAN MD [facility] RAD PAIN WITH CHANGE IN V ISION [id number] 09/08/2012 09:45:00 23:59:59 CLS Outpatient Justyn MORRISSEY MD [facility] LAB CYSTITIS [id number] 08/27/2012 09:12:00 23:59:59 CLS Outpatient Justyn MORRISSEY MD [facility] LAB UTI [id number] 07/21/2012 10:02:00 23:59:59 CLS Outpatient Justyn MORRISSEY MD [facility] LAB 595.2 [id number] 01/28/2019 09:23:00 Document Registration [id number] 10/13/2017 07:54:00 Document Registration [id number] 10/07/2017 09:23:00 Document Registration [id number] 12/13/2014 06:56:00 Document Registration [id number] 12/12/2014 15:11:00 Document Registration [id number] 03/13/2014 15:59:00 Document Registration [id number] 03/03/2013 00:00:00 Document Registration [id number] 06/21/2012 08:54:00 Document Registration [id number] 06/17/2012 11:49:00 Document Registration [id number] 04/28/2012 10:48:00 Document Registration [id number] 07/24/2011 09:15:00 Document Registration [id number] 06/23/2011 08:01:00 Document Registration [id number] 05/29/2011 05:42:00 Document Registration [id number] 05/19/2011 07:27:00 Document Registration [id number] 02/11/2011 16:00:00 Document Registration [id number] 01/18/2011 22:01:00 Document Registration [id number] 10/12/2010 14:30:00 Document Registration [id number] 07/11/2010 15:51:00 Document Registration [id number] 07/08/2010 11:52:00 Document Registration [id number] 06/20/2010 14:16:00 Document Registration [id number] 06/20/2010 06:57:00 Document Registration [id number] 01/18/2010 08:56:00 Document Registration [id number] 12/25/2009 09:07:00 Document Registration [id number] 12/18/2009 15:48:00 Document Registration [id number] 12/17/2009 13:15:00 Document Registration [id number] 09/19/2009 07:39:00 Document Registration [id number] 08/29/2009 06:18:00 Document Registration [id number] 08/17/2009 15:56:00 Document Registration [id number] 03/13/2009 12:58:00 Document Registration
== END 2019-05-14 16:32 | disposition home or self-care (01) ==
LOC: ER 14:49 → EDUNIT# 14:49 → ER 16:32
DX: J06.9 Acute upper respiratory infection, unspecified (principal); R59.9 Enlarged lymph nodes, unspecified; I10 Essential (primary) hypertension; E11.9 Type 2 diabetes mellitus without complications; E78.00 Pure hypercholesterolemia, unspecified; I25.10 Atherosclerotic heart disease of native coronary artery without angina pectoris; J44.9 Chronic obstructive pulmonary disease, unspecified; E03.9 Hypothyroidism, unspecified; F41.9 Anxiety disorder, unspecified; F32.9 Major depressive disorder, single episode, unspecified; G47.30 Sleep apnea, unspecified; Z99.89 Dependence on other enabling machines and devices; Z88.0 Allergy status to penicillin; Z88.5 Allergy status to narcotic agent; Z88.8 Allergy status to other drugs, medicaments and biological substances; Z79.82 Long term (current) use of aspirin; Z79.51 Long term (current) use of inhaled steroids; Z79.4 Long term (current) use of insulin; Z95.5 Presence of coronary angioplasty implant and graft; Z82.49 Family history of ischemic heart disease and other diseases of the circulatory system
CPT/HCPCS: 36415; 71045; 80053; 84484; 85025; 86141; 87804; 93005; 93041

== ENCOUNTER 2019-05-15 05:48 | Emergency (ER) | payer MEDICARE, OTHER ==
[~2019-05-15] VITALS: Ht 165 cm; Wt 108.0 kg
[~2019-05-15 05:48] MED LIST changes: +DOXY100T2 PO
--- NOTE | 2019-05-15 05:58 | ED Respiratory ---
General Chief Complaint: Respiratory Problems Stated Complaint: UPPER RESP INFECTION Source: patient, EMS Exam Limitations: no limitations (TO OCHOA) History of Present Illness Date Seen by Provider: May 15, 2019 Time Seen by Provider: 05:48 Initial Comments The patient presents to ER by private conveyance with chief complaint of shortness of breath, cough without fevers and chills. She says she wears oxygen 2 L at baseline related to mitral valve stenosis. She sees a [facility]oc[facility]in sewer in [place] and was told she does not have COPD or asthma but she has been using her nebulizer albuterol 3 times a day. Her last dose was at midnight. She did not feel like it made a big difference in her wheezing. This morning she was very anxious because her shortness of breath did not get better. Yesterday she was dismissed from the emergency room with an upper respiratory tract infection on doxycycline. She says she does not feel any better now. She's not having any nausea chest pain sweats edema. (TO OCHOA) Allergies and Home Medications Allergies Coded Allergies: Penicillins (Verified Allergy, Unknown, 05/15/19) codeine (Verified Allergy, Unknown, UPSET STOMACH, 05/15/19) morphine (Unverified Allergy, Unknown, 05/15/19) propoxyphene (Verified Allergy, Unknown, 05/15/19) topiramate (Verified Allergy, Unknown, 05/15/19) Home Medications Acetaminophen 500 Mg Tablet, 1,000 MG PO Q6H PRN for PAIN-MILD, (Reported) Albuterol Sulfate 18 Gm Hfa.aer.ad, 2 PUFF INH Q4H PRN for SHORTNESS OF BREATH, (Reported) Amitriptyline HCl 75 Mg Tablet, 75 MG PO HS, (Reported) Amlodipine Besylate 10 Mg Tablet, 5 MG PO DAILY, (Reported) Aspirin 81 Mg Tablet.dr, 81 MG PO DAILY, (Reported) Atorvastatin Calcium 10 Mg Tablet, 10 MG PO DAILY, (Reported) Budesonide/Formoterol Fumarate 10.2 Gm Hfa.aer.ad, 2 PUFF IH BID, (Reported) Cetirizine HCl 10 Mg Tablet, 10 MG PO DAILY, (Reported) Cholecalciferol (Vitamin D3) 5,000 Unit Capsule, 5,000 UNIT PO BID, (Reported) Ciprofloxacin HCl 500 Mg Tablet, 500 MG PO BID Prescribed by: DAVIN ADHIKARI on 12/31/182013 Cyclobenzaprine HCl 10 Mg Tablet, 10 MG PO BID PRN for MUSCLE SPASMS, (Reported) Doxycycline Hyclate 100 Mg Tablet, 100 MG PO BID Prescribed by: SHARLA DOWNS on 05/14/19 1620 Fluticasone Propionate 16 Gm [place].susp, 2 SPRAYS NS HS, (Reported) Gabapentin 400 Mg Capsule, 400 MG PO TID, (Reported) Glipizide 5 Mg Tablet, 5 MG PO DAILY, (Reported) Insulin Degludec 200 Unit/1 Ml Insuln.pen, 12 UNITS SC BID, (Reported) Levothyroxine Sodium 100 Mcg Tablet, 100 MCG PO DAILY, (Reported) Lorazepam 1 Mg Tablet, 1 MG PO DAILY PRN for ANXIETY, (Reported) Lorazepam 1 Mg Tablet, 1 MG PO HS, (Reported) Losartan Potassium 50 Mg Tablet, 50 MG PO DAILY, (Reported) Meclizine HCl 25 Mg Tablet, 25 MG PO Q6H PRN for DIZZINESS Prescribed by: DAVIN ADHIKARI on 04/07/16 0323 Metformin HCl 1,000 Mg Tablet, 1,000 MG PO BID, (Reported) Metoprolol Succinate 25 Mg Tab.er.24h, 25 MG PO DAILY, (Reported) Montelukast Sodium 10 Mg Tablet, 10 MG PO HS, (Reported) Multivitamin 1 Each Tablet, 1 TAB PO DAILY, (Reported) Ondansetron 4 Mg Tab.rapdis, 4 MG PO Q6H PRN for NAUSEA/VOMITING Prescribed by: TO OCHOA on 04/11/19 1518 Pantoprazole Sodium 40 Mg Tablet.dr, 40 MG PO DAILY Prescribed by: MARILY PANDEY on 11/10/17 0838 Sucralfate 1 Gm Tablet, 1 GM PO Q6H Prescribed by: MARILY PANDEY on 11/10/17 0838 Tramadol HCl 50 Mg Tablet, 50 MG PO Q4H PRN for PAIN-MODERATE, (Reported) Vitamin B Complex 1 Each Capsule, 1 CAP PO DAILY, (Reported) Patient Home Medication List Home Medication List Reviewed: Yes (TO OCHOA) Review of Systems Review of Systems Constitutional: No chills, No diaphoresis EENTM: No hearing loss, No ear pain Respiratory: cough, short of breath Cardiovascular: No edema, No Hx of Intervention Gastrointestinal: No abdominal pain, No nausea Genitourinary: No discharge, No dysuria Musculoskeletal: No back pain, No joint pain (TO OCHOA) All Other Systems Reviewed Negative Unless Noted: Yes (TO OCHOA) Past Sxgptvc-Ovlkvo-Wzrmho Hx Patient Social History Alcohol Use: Denies Use Recreational Drug Use: No Smoking Status: Never a Smoker 2nd Hand Smoke Exposure: No Recent Hopitalizations: No (TO OCHOA) Immunizations Up To Date Tetanus Booster (TDap): Unknown Date of Pneumonia Vaccine: Feb 05, 2017 Date of Influenza Vaccine: Dec 21, 2018 (TO OCHOA) Seasonal Allergies Seasonal Allergies: No (TO OCHOA) Past Medical History Surgeries: Yes (FOOT) Appendectomy, Coronary Stent, Gallbladder, Orthopedic, Thyroidectomy Respiratory: Yes (CPAP - 3L NC O2 ) Asthma, Sleep Apnea, COPD Currently Using CPAP: Yes Currently Using BIPAP: No Cardiac: Yes (STENT) Cardiomyopathy, Chronic Edema/Swelling, Coronary Artery Disease, High Cholesterol, Hypertension, Valvular Heart Disease Neurological: No 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 Sexually Transmitted Disease: No HIV/AIDS: No UTI-Chronic Gastrointestinal: No Musculoskeletal: Yes (ARTHRITIS, spinal stenosis) Arthritis, Scoliosis Endocrine: Yes Diabetes, Insulin dep, Hypothyroidsim HEENT: No Cancer: No Psychosocial: Yes Anxiety, Depression Integumentary: No Blood Disorders: No Adverse Reaction/Blood Tranf: No (TO OCHOA) Family Medical History Alzheimer's disease G8 SISTER Diabetes mellitus 19 FATHER Hypertension 19 FATHER 19 MOTHER Myocardial infarction 19 FATHER 19 MOTHER Neoplasm G8 SISTER Physical Exam Vital Signs - First Documented 05/15/19 05/15/19 05:54 07:06 Temp 36.6 Pulse 86 Resp 20 B/P (MAP) 156/82 (106) Pulse Ox 98 O2 Delivery Nasal Cannula O2 Flow Rate 2.00 FiO2 95 (SHARLA DOWNS MD) Capillary Refill : (TO OCHOA) Height: 5'4.00" Weight: 246lbs. 6.0oz. 111.804692fq; 41.00 BMI Method:Stated General Appearance: WD/WN, no apparent distress Eyes: Bilateral Eye Normal Inspection, Bilateral Eye PERRL, Bilateral Eye EOMI HEENT: PERRL/EOMI, pharynx normal Neck: full range of motion, supple, normal inspection Respiratory: rales (faint bilateral bases), wheezing (faint, few expiratory bilateral) Cardiovascular: normal peripheral pulses, regular rate, rhythm Gastrointestinal: non tender, soft Neurologic/Psychiatric: alert, oriented x 3, other (anxious affect) Skin: normal color, warm/dry (ISAACTO J) Progress/Results/Core Measures Suspected Sepsis SIRS Temperature: Pulse: Respiratory Rate: Laboratory Tests 05/15/19 06:00: White Blood Count 8.4 Blood Pressure / Mean: Laboratory Tests 05/15/19 06:00: Platelet Count 236 (TO OCHOA) Results/Orders Lab Results Laboratory Tests Test 05/15/19 06:00 05/15/19 06:06 Range/Units White Blood Count 8.4 4.3-11.0 10^3/uL Red Blood Count 3.73 L 4.35-5.85 10^6/uL Hemoglobin 11.5 11.5-16.0 G/DL Hematocrit 36 35-52 % Mean Corpuscular Volume 97 80-99 FL Mean Corpuscular Hemoglobin 31 25-34 PG Mean Corpuscular Hemoglobin Concent 32 32-36 G/DL Red Cell Distribution Width 13.6 10.0-14.5 % Platelet Count 236 130-400 10^3/uL Mean Platelet Volume 9.4 7.4-10.4 FL Neutrophils (%) (Auto) 77 H 42-75 % Lymphocytes (%) (Auto) 15 12-44 % Monocytes (%) (Auto) 5 0-12 % Eosinophils (%) (Auto) 3 0-10 % Basophils (%) (Auto) 0 0-10 % Neutrophils # (Auto) 6.4 1.8-7.8 X 10^3 Lymphocytes # (Auto) 1.2 1.0-4.0 X 10^3 Monocytes # (Auto) 0.4 0.0-1.0 X 10^3 Eosinophils # (Auto) 0.3 0.0-0.3 10^3/uL Basophils # (Auto) 0.0 0.0-0.1 10^3/uL Sodium Level 138 135-145 MMOL/L Potassium Level 4.4 3.6-5.0 MMOL/L Chloride Level 105 98-107 MMOL/L Carbon Dioxide Level 23 21-32 MMOL/L Anion Gap 10 5-14 MMOL/L Blood Urea Nitrogen 19 H 7-18 MG/DL Creatinine 1.10 0.60-1.30 MG/DL Estimat Glomerular Filtration Rate 50 BUN/Creatinine Ratio 17 Glucose Level 203 H 70-105 MG/DL Calcium Level 8.9 8.5-10.1 MG/DL C-Reactive Protein High Sensitivity 1.88 H 0.00-0.50 MG/DL B-Type Natriuretic Peptide 334.7 H <100.0 PG/ML Urine Color YELLOW Urine Clarity CLEAR Urine pH 6.0 5-9 Urine Specific [place] 1.020 1.016-1.022 Urine Protein NEGATIVE NEGATIVE Urine Glucose (UA) 1+ H NEGATIVE Urine Ketones NEGATIVE NEGATIVE Urine Nitrite NEGATIVE NEGATIVE Urine Bilirubin NEGATIVE NEGATIVE Urine Urobilinogen 0.2 < = 1.0 MG/DL Urine Leukocyte Esterase NEGATIVE NEGATIVE Urine RBC (Auto) NEGATIVE NEGATIVE Urine RBC NONE /HPF Urine WBC NONE /HPF Urine Squamous Epithelial Cells 10-25 H /HPF Urine Crystals NONE /LPF Urine Bacteria TRACE /HPF Urine Casts NONE /LPF Urine Mucus SMALL H /LPF Urine Culture Indicated NO (SHARLA DOWNS MD) My Orders Orders - SHARLA DOWNS MD Ua Culture If Indicated (05/15/19 06:31) Dexamethasone Injection (Decadron Inject (05/15/19 06:45) (SHARLA DOWNS MD) Medications Given in ED Current Medications Medications Dose Ordered Sig/Katrina Route Start Time Stop Time Status Last Admin Dose Admin Albuterol/ Ipratropium 3 ml ONCE ONCE INH 05/15/19 06:00 05/15/19 06:01 DC 05/15/19 06:52 3 ML Dexamethasone Sodium Phosphate 10 mg ONCE ONCE IV 05/15/19 06:45 05/15/19 06:46 DC 05/15/19 06:38 10 MG (SHARLA DOWNS MD) Vital Signs/I&O 05/15/19 05/15/19 05:54 07:06 Temp 36.6 Pulse 86 Resp 20 B/P (MAP) 156/82 (106) Pulse Ox 98 95 O2 Delivery Nasal Cannula Nasal Cannula O2 Flow Rate 2.00 2.00 FiO2 95 (SHARLA DOWNS MD) Vital Signs/I&O Capillary Refill : (ISAAC,TO J) Progress Note : Time: 06:17 Progress Note Patient had a previous workup yesterday. She had influenza swab was negative. She does have a few crackles and wheezes so we'll get a 2 view chest x-ray some basic labs and give her a DuoNeb breathing treatment to see if anything has developed. She is on her baseline oxygen with 98-100% pulse oximetry. She has aseptic vital signs. A large part of her presenting complaint related to her anxiety. She says she has a lot of anxiety since she lives at home alone. (TO OCHOA) Progress Note : Progress Note 0630: I did assume care of the patient from Dr. Ochoa pending a few of her labs. So far there is no significant findings. I have reevaluated the patient and her vital signs remained in normal range with O2 sat 98% on her typical 2 L via nasal cannula. And a chest x-ray. 0730: I did give patient Decadron 10 mg IV and we did check UA which was negative. Chest x-ray does not show any acute ch anges from yesterday. Overall she is doing well and I believe that she needs more time for treatment of her upper respiratory infection. Discharged home with return precautions. Patient verbalize understanding instructions and agreement with plan. (SHARLA DOWNS MD) Diagnostic Imaging Diagonstic Imaging: Xray Plain Films/CT/US/NM/MRI: chest (two-view) Reviewed: Reviewed by Me (TO OCHOA) Transfer of Care Transfer of Care Time: 06:18 Care transferred to: Dr. Downs (TO OCHOA) Departure Impression Primary Impression: Upper respiratory infection Qualified Codes: J06.9 - Acute upper respiratory infection, unspecified Additional Impression: Anxiety Disposition: 01 HOME, SELF-CARE Condition: Stable Departure-Patient Inst. Decision time for Depature: 07:33 (SHARLA DOWNS MD) Referrals: FERN BAILEY DO (PCP/Family) Primary Care Physician Patient Instructions: Bacterial Upper Respiratory Infection, Adult (DC) Add. Discharge Instructions: All discharge instructions reviewed with patient and/or family. Voiced understanding. Take medications as directed. You may use your albuterol nebulizer treatments every 4 hours as needed for shortness of air. Continue your oxygen as pres cribed. Follow-up with your doctor early next week for recheck and further evaluation. You may use Tylenol/acetaminophen 1000 mg every 6-8 hours as needed for fever or pain. You may use ibuprofen 600 mg every 8 hours as needed for fever or pain. Drink plenty of fluids. You may use [id number] Afrin nasal spray or the generic, 12 hour relief, 2 sprays to each tonsil twice daily for 3 days only and then stop. Do not use more than 3 days. Return for worse pain, fever, vomiting, weakness, breathing problems or other concerns as needed. TO OCHOA May 15, 2019 05:58 SHARLA DOWNS MD May 15, 2019 07:37
[2019-05-15] MEDS ORDERED: RT-ALBUTEROL/IPRATROPIUM 3 ML (DUONEB) VIAL INH ONE (06:00)
--- NOTE | 2019-05-15 06:00 | NUR ---
RESPIRATORY THERAPY NOTIFIED FOR CONSULT AND BREATHING TREATMENT
[2019-05-15 06:07] LABS: BASOPHILS % (AUTO) 0 % (0-10); EOSINOPHILS # (AUTO) 0.3 10^3/uL (0.0-0.3); EOSINOPHILS % (AUTO) 3 % (0-10); HEMATOCRIT 36 % (35-52); HEMOGLOBIN 11.5 G/DL (11.5-16.0); LYMPHOCYTES # (AUTO) 1.2 X 10^3 (1.0-4.0); LYMPHOCYTES % (AUTO) 15 % (12-44); MEAN CORPUSCULAR HEMOGLOBIN 31 PG (25-34); MEAN CORPUSCULAR HGB CONC 32 G/DL (32-36); MEAN CORPUSCULAR VOLUME 97 FL (80-99); MEAN PLATELET VOLUME 9.4 FL (7.4-10.4); MONOCYTES # (AUTO) 0.4 X 10^3 (0.0-1.0); MONOCYTES % (AUTO) 5 % (0-12); NEUTROPHILS # (AUTO) 6.4 X 10^3 (1.8-7.8); NEUTROPHILS % (AUTO) 77 % (42-75); PLATELET COUNT 236 10^3/uL (130-400); RED CELL DISTRIBUTION WIDTH 13.6 % (10.0-14.5); WHITE BLOOD COUNT 8.4 10^3/uL (4.3-11.0)
[2019-05-15 06:25] LABS: CALCIUM 8.9 MG/DL (8.5-10.1); CREATININE SERUM 1.1 MG/DL (0.60-1.30); POTASSIUM 4.4 MMOL/L (3.6-5.0)
[2019-05-15 06:39] LABS: BILIRUBIN,URINE NEGATIVE (NEGATIVE); CLARITY,URINE CLEAR; COLOR,URINE YELLOW; GLUCOSE, URINE (UA) 1+ (NEGATIVE); KETONES,URINE NEGATIVE (NEGATIVE); LEUKOCYTE ESTERASE ,URINE NEGATIVE (NEGATIVE); NITRITE,URINE NEGATIVE (NEGATIVE); PROTEIN,URINE NEGATIVE (NEGATIVE)
--- NOTE | 2019-05-15 06:43 | NUR ---
RESPIRATORY THERAPY CALLED AGAIN AND ARE UNAVAILABLE AT THIS TIME D/T BEING WITH ANOTHER PATIENT. BREATHING TREATMENT GIVEN BY THIS RN.
[2019-05-15] MEDS ORDERED: DEXAMETHASONE 10 MG/ML (DECADRON) 1 ML VIAL IV ONE (06:45)
[2019-05-15 06:55] LABS: BACTERIA,URINE TRACE /HPF
[2019-05-15 07:56] VITALS: BP 178/83
--- NOTE | 2019-05-15 10:03 | Diagnostic Imaging Report ---
EXAMINATION: CHEST (PA AND LATERAL) CLINICAL INDICATION: 63-year-old female, shortness of breath. COMPARISON: May 14, 2019. FINDINGS: Stable overall appearance of the cardiomediastinal silhouette. There is no identified pneumothorax. There is no pleural effusion. There is no identified interval focal airspace consolidation. IMPRESSION: 1. No identified interval acute cardiopulmonary abnormality. Dictated by: Dictated on workstation # [id number]
== END 2019-05-15 07:56 | disposition home or self-care (01) ==
LOC: EDUNIT# 05:48 → ER 05:49
DX: J06.9 Acute upper respiratory infection, unspecified (principal); F41.9 Anxiety disorder, unspecified; J44.9 Chronic obstructive pulmonary disease, unspecified; I10 Essential (primary) hypertension; E78.00 Pure hypercholesterolemia, unspecified; I25.10 Atherosclerotic heart disease of native coronary artery without angina pectoris; E11.9 Type 2 diabetes mellitus without complications; E03.9 Hypothyroidism, unspecified; F32.9 Major depressive disorder, single episode, unspecified; G47.30 Sleep apnea, unspecified; Z99.89 Dependence on other enabling machines and devices; Z95.5 Presence of coronary angioplasty implant and graft; Z88.0 Allergy status to penicillin; Z88.5 Allergy status to narcotic agent; Z88.8 Allergy status to other drugs, medicaments and biological substances; Z79.82 Long term (current) use of aspirin; Z79.51 Long term (current) use of inhaled steroids; Z79.4 Long term (current) use of insulin
CPT/HCPCS: 36415; 71046; 80048; 81000; 83880; 85025; 86141; 94640

== ENCOUNTER 2019-09-08 05:50 | Outpatient (RCR) | payer MEDICARE, OTHER ==
[~2019-09-08] VITALS: Ht 167.7 cm; Wt 112.3 kg
[2019-09-13] MEDS ORDERED: SUCR1TAB36 PO (09:07)
== END 2019-09-08 15:09 | disposition home or self-care (01) ==
LOC: PREOP 05:50
PROVIDERS: ATTEND Surgery
DX: Z01.818 Encounter for other preprocedural examination (principal); Z20.828 Contact with and (suspected) exposure to other viral communicable diseases
CPT/HCPCS: 87635

== ENCOUNTER 2019-09-13 07:35 | Day surgery (SDC) | payer MEDICARE, OTHER ==
[~2019-09-13] VITALS: Ht 167.7 cm; Wt 112.3 kg
[2019-09-13] MEDS ORDERED: LACTATED RINGERS 1,000 ML IV ONE (07:39)
[2019-09-13] MEDS ORDERED: LACTATED RINGERS 1,000 ML IV STA (07:46)
[2019-09-13 07:50] VITALS: BP 154/85
--- NOTE | 2019-09-13 07:59 | Progress Note-Pre Operative ---
Pre-Operative Progress Note H&P Reviewed The H&P was reviewed, patient examined and no changes noted. Date Seen by Provider: Sep 13, 2019 Time Seen by Provider: 07:59 Date H&P Reviewed: Sep 13, 2019 Time H&P Reviewed: 07:59 Pre-Operative Diagnosis: epigastric abd pain, black tarry stools, hx MARILY Prasad DO Sep 13, 2019 07:59
[2019-09-13] MEDS ORDERED: HURRICAINE EXT TUBE (BENZOCAINE) XX PRN (08:00)
[2019-09-13] MEDS ORDERED: MIDAZOLAM 2 MG/2 ML (VERSED) VIAL ONE (08:05)
[2019-09-13] MEDS ORDERED: proPOfol 200 MG/20 ML (DIPRIVAN) VIAL IV ONE ×2 (08:19→08:23)
[2019-09-13] MEDS ORDERED: TRZ50T PO (08:33)
[2019-09-13] MEDS ORDERED: VIT1TABL57 PO (08:33)
[2019-09-13] MEDS ORDERED: DIPH1TAB PO (08:33)
[2019-09-13] MEDS ORDERED: ESZO2TAB31 PO (08:33)
[2019-09-13] MEDS ORDERED: LEVO125T6 PO (08:33)
[2019-09-13] MEDS ORDERED: GABA-486 PO (08:33)
[2019-09-13] MEDS ORDERED: MECL-149 PO (08:33)
[2019-09-13] MEDS ORDERED: CNC1KV IM (08:33)
[2019-09-13] MEDS ORDERED: ONDA-105 PO (08:33)
[2019-09-13] MEDS ORDERED: FLUT30CR TP (08:33)
[2019-09-13] MEDS ORDERED: CRAN500C8 PO (08:33)
[2019-09-13] MEDS ORDERED: PANT40TA3 PO (08:33)
[2019-09-13] MEDS ORDERED: MAGN200T8 PO (08:33)
[2019-09-13] MEDS ORDERED: CITA10TA12 PO (08:33)
[2019-09-13] MEDS ORDERED: CYCL10TA9 PO (08:33)
[2019-09-13 08:55] VITALS: BP 119/52
[2019-09-13 09:00] VITALS: BP 137/66
[2019-09-13 09:05] VITALS: BP 132/64
--- NOTE | 2019-09-13 09:05 | Progress Note-Post Operative ---
Post-Operative Progess Note Surgeon (s)/Director Technical (s) Surgeon MARILY PANDEY DO Director Technical: na Pre-Operative Diagnosis epigastric abd pain, black tarry stools, hx pud Post-Operative Diagnosis healing duodenal ulcer, gastritis, hiatal hernia Procedure & Operative Findings Date of Procedure 09/13/19 Procedure Performed/Findings egd c biopsies Anesthesia Type per dog pound attendant Estimated Blood Loss Estimated blood loss (mL): min Specimens/Packing Specimens Removed duodenum, antrum, body stomach, ge MARILY PANDEY DO Sep 13, 2019 09:05
[2019-09-13] MEDS ORDERED: SUCR1TAB36 PO (09:07)
--- NOTE | 2019-09-13 09:07 | Discharge Inst-Simple/Standard ---
Discharge Inst-Standard Discharge Medications New, Converted or Re-Newed RX: Transmitted to Pharmacy Patient Instructions/Follow Up Plan of Care/Instructions/FU: 2 weeks Tess Activity as Tolerated: Yes Discharge Diet: Regular Diet MARILY PANDEY DO Sep 13, 2019 09:07
[2019-09-13 09:10] VITALS: BP 132/64
[2019-09-13 09:35] VITALS: BP 128/68
--- NOTE | 2019-09-13 10:39 | Anesthesia-General Post-Op ---
MAC Patient Condition Mental Status/LOC: Same as Preop Cardiovascular: Satisfactory Nausea/Vomiting: Absent Respiratory: Satisfactory Pain: Controlled Complications: Absent Post Op Complications Complications None Follow Up Care/Instructions Patient Instructions None needed. Anesthesiology Discharge Order Discharge Order Patient is doing well, no complaints, stable vital signs, no apparent adverse anesthesia problems. No complications reported per nursing. CHAR LUNA REMEDIAL PROJECT MANAGER Sep 13, 2019 10:38
--- NOTE | 2019-09-13 13:47 | OPERATIVE REPORT ---
DATE OF SERVICE: 09/13/2019 PREOPERATIVE DIAGNOSES: Epigastric abdominal pain, black tarry stools, history of peptic ulcer disease. POSTOPERATIVE DIAGNOSIS: Healing duodenal ulcer, gastritis, hiatal hernia. PROCEDURE: EGD with biopsy. SURGEON: Marily Pulido DO ANESTHESIA: Per TECHNICAL MGR. ESTIMATED BLOOD LOSS: Minimal. COMPLICATIONS: None. INDICATIONS: The patient is a 63-year-old female with epigastric abdominal pain, black tarry stools and history of peptic ulcer disease. She was recommended to have EGD for further evaluation. She understands risks and benefits of procedure and wished to proceed with procedure. Consent was signed in the chart. DESCRIPTION OF PROCEDURE: The patient was taken to the endoscopy suite, placed in left lateral recumbent position. Timeout was performed. Scope was inserted in mouth, down the esophagus, stomach and into the duodenum without difficulty. There were no polyps, masses or ulcerations in the second portion of the duodenum. First portion had some healing ulcers. Biopsy of the duodenum was obtained. Scope was then slowly retracted back into the stomach where it was further insufflated. Biopsy of the antrum was obtained. Gastritis appearance throughout the entire stomach. Biopsy of the body was obtained. The scope was retroflexed noting a hiatal hernia. No other pathology noted. Scope was returned to its normal position, slowly withdrawn to the distal esophagus. Biopsy of the GE junction was obtained. There were no polyps, masses or ulcerations. Scope was then slowly retracted back to completely remove noting no other pathology. RECOMMENDATIONS: The patient will follow up in 2 weeks to discuss pathology results. Added Carafate 1 gram four times a day. We will consider changing of her medications that are irritating to the stomach. The patient is to see how symptoms are doing in the near future. Job ID: [id number] DocumentID: [id number] Dictated Date: 09/13/2019 09:11:39 Supervisor Sintering Plant Date: 09/13/2019 13:46:32 Dictated By: MARILY PULIDO DO
== END 2019-09-13 09:35 | disposition home or self-care (01) ==
LOC: ENDO 07:35
PROVIDERS: ATTEND Surgery
DX: K26.9 Duodenal ulcer, unspecified as acute or chronic, without hemorrhage or perforation (principal); K29.50 Unspecified chronic gastritis without bleeding; K44.9 Diaphragmatic hernia without obstruction or gangrene; E03.9 Hypothyroidism, unspecified; J45.909 Unspecified asthma, uncomplicated; G47.33 Obstructive sleep apnea (adult) (pediatric); I25.10 Atherosclerotic heart disease of native coronary artery without angina pectoris; E78.2 Mixed hyperlipidemia; E11.40 Type 2 diabetes mellitus with diabetic neuropathy, unspecified; R09.02 Hypoxemia; E53.9 Vitamin B deficiency, unspecified; Z79.899 Other long term (current) drug therapy; Z79.84 Long term (current) use of oral hypoglycemic drugs; Z79.82 Long term (current) use of aspirin; Z96.653 Presence of artificial knee joint, bilateral; Z79.890 Hormone replacement therapy; Z99.81 Dependence on supplemental oxygen; Z88.0 Allergy status to penicillin; Z88.5 Allergy status to narcotic agent; Z88.8 Allergy status to other drugs, medicaments and biological substances; Z95.5 Presence of coronary angioplasty implant and graft; F32.9 Major depressive disorder, single episode, unspecified; E66.01 Morbid (severe) obesity due to excess calories; Z68.39 Body mass index [BMI] 39.0-39.9, adult
CPT/HCPCS: 88305

== ENCOUNTER 2019-10-07 14:57 | Emergency (ER) | payer MEDICARE, OTHER ==
[~2019-10-07] VITALS: Ht 162 cm; Wt 112.0 kg
[~2019-10-07 14:57] MED LIST changes: +CITA10TA12 PO; +CNC1KV IM; +CRAN500C8 PO; +DIPH1TAB PO; +ESZO2TAB31 PO; +FLUT30CR TP; +LEVO125T6 PO; +MAGN200T8 PO; +ONDA-105 PO; +PANT40TA3 PO; +TRZ50T PO; +VIT1TABL57 PO
--- NOTE | 2019-10-07 15:44 | NUR ---
pt in ultrasound obtaining images at this time
[2019-10-07] MEDS ORDERED: ACET-1672 PO (15:45)
--- NOTE | 2019-10-07 15:45 | ED Lower Extremity ---
General Chief Complaint: Lower Extremity Stated Complaint: POSS BLOOD CLOT IN L LEG Nursing Triage Note: has swelling and pain in LLE, was sent here for a ultrasound of leg for possible clot Nursing Sepsis Screen: No Definite Risk Source: patient Exam Limitations: no limitations History of Present Illness Date Seen by Provider: Oct 07, 2019 Time Seen by Provider: 15:43 Initial Comments To ER with swelling and pain in the left lower cavity for 2 weeks. No injury. Onset: just prior to arrival Severity: moderate Pain/Injury Location: left leg Method of Injury: unknown Modifying Factors: Worse With Movement Allergies and Home Medications Allergies Coded Allergies: Penicillins (Verified Allergy, Unknown, 05/15/19) meperidine (Verified Allergy, Unknown, 09/06/19) morphine (Unverified Allergy, Unknown, 05/15/19) propoxyphene (Verified Allergy, Unknown, 05/15/19) topiramate (Verified Allergy, Unknown, 05/15/19) codeine (Verified Adverse Reaction, Unknown, UPSET STOMACH, 09/13/19) dapagliflozin (Verified Adverse Reaction, Unknown, yeast infection, 09/13/19) Home Medications Acetaminophen 500 Mg Tablet, 1,000 MG PO Q6H PRN for PAIN-MILD, (Reported) Amlodipine Besylate 10 Mg Tablet, 5 MG PO DAILY, (Reported) Aspirin 81 Mg Tablet.dr, 81 MG PO DAILY, (Reported) Atorvastatin Calcium 10 Mg Tablet, 10 MG PO DAILY, (Reported) Cetirizine HCl 10 Mg Tablet, 10 MG PO DAILY, (Reported) Citalopram Hydrobromide 10 Mg Tablet, 10 MG PO DAILY, (Reported) Cranberry Fruit Concentrate 500 Mg Capsule, 500 MG PO DAILY, (Reported) Cyanocobalamin 1,000 Mcg/Ml Inj, 1,000 MCG IM UD, (Reported) Cyclobenzaprine HCl 10 Mg Tablet, 10 MG PO PRN, (Reported) Diphenoxylate HCl/Atropine 1 Each Tablet, 1 EACH PO PRN, (Reported) Eszopiclone 2 Mg Tablet, 2 MG PO HS, (Reported) Fluticasone Propionate 16 Gm [place].susp, 2 SPRAYS NS HS, (Reported) Fluticasone Propionate 30 Gm Cream..g., 50 GM TP DAILY, (Reported) Gabapentin 100 Mg Capsule, 100 MG PO TID, (Reported) Insulin Degludec 200 Unit/1 Ml Insuln.pen, 12 UNITS SC BID, (Reported) Levothyroxine Sodium 125 Mcg Tablet, 125 MCG PO DAILY, (Reported) Lorazepam 1 Mg Tablet, 1 MG PO DAILY PRN for ANXIETY, (Reported) Losartan Potassium 50 Mg Tablet, 50 MG PO DAILY, (Reported) Magnesium Oxide 200 Mg Tablet, 400 MG PO DAILY, (Reported) Meclizine HCl 25 Mg Tablet, 25 MG PO TID, (Reported) Metoprolol Succinate 25 Mg Tab.er.24h, 25 MG PO DAILY, (Reported) Montelukast Sodium 10 Mg Tablet, 10 MG PO HS, (Reported) Ondansetron HCl 4 Mg Tablet, 4 MG PO UD, (Reported) Pantoprazole Sodium 40 Mg Tablet.dr, 40 MG PO DAILY, (Reported) Sucralfate 1 Gm Tablet, 1 GM PO QID Prescribed by: MARILY PANDEY on 09/13/19 0907 Tramadol HCl 50 Mg Tablet, 50 MG PO Q4H PRN for PAIN-MODERATE, (Reported) Trazodone HCl 50 Mg Tablet, 50 MG PO HS, (Reported) Vit D3 & K/Berberine HCl/Hops 1 Each Tablet, 1 EACH PO DAILY, (Reported) Patient Home Medication List Home Medication List Reviewed: Yes Review of Systems Constitutional: see HPI EENTM: see HPI Cardiovascular: no symptoms reported Genitourinary: no symptoms reported Musculoskeletal: see HPI Skin: no symptoms reported Psychiatric/Neurological: No Symptoms Reported Past Pszfwyd-Nrjtud-Hqugnb Hx Patient Social History Alcohol Use: Denies Use Recreational Drug Use: No 2nd Hand Smoke Exposure: No Recent Foreign Travel: No Contact w/Someone Who Travel: No Recent Infectious Disease Expo: No Recent Hopitalizations: No Immunizations Up To Date Tetanus Booster (TDap): Unknown Date of Pneumonia Vaccine: Feb 05, 2017 Date of Influenza Vaccine: Dec 21, 2018 Seasonal Allergies Seasonal Allergies: No Past Medical History Surgeries: Yes (FOOT, bilat CTR, carotid endartectomy, bilat TKR) Appendectomy, Coronary Stent, Gallbladder, Orthopedic, Thyroidectomy Respiratory: Yes (CPAP - 3L NC O2 ) Asthma, Sleep Apnea, COPD Currently Using CPAP: Yes Currently Using BIPAP: No Cardiac: Yes (STENT) Cardiomyopathy, Chronic Edema/Swelling, Coronary Artery Disease, High Cholesterol, Hypertension, Valvular Heart Disease Neurological: No 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 Disorders: No 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 Sexually Transmitted Disease: No HIV/AIDS: No Genitourinary: No UTI-Chronic Gastrointestinal: Yes Gastroesophageal Reflux Musculoskeletal: Yes (ARTHRITIS, spinal stenosis) Arthritis, Scoliosis Endocrine: Yes Diabetes, Insulin dep, Hypothyroidsim HEENT: No Cancer: No Psychosocial: Yes Anxiety, Depression Integumentary: No Blood Disorders: No Adverse Reaction/Blood Tranf: No Family Medical History Alzheimer's disease G8 SISTER Diabetes mellitus 19 FATHER Hypertension 19 FATHER 19 MOTHER Myocardial infarction 19 FATHER 19 MOTHER Neoplasm G8 SISTER Physical Exam Vital Signs Vital Signs - First Documented 10/07/19 15:06 Temp 36.7 Pulse 117 Resp 18 B/P (MAP) 183/83 (116) Pulse Ox 99 O2 Delivery Nasal Cannula Capillary Refill : Less Than 3 Seconds Height, Weight, BMI Height: 5'4.00" Weight: 246lbs. 6.0oz. 111.256165bq; 42.00 BMI Method:Stated General Appearance: WD/WN, no apparent distress Respiratory: no respiratory distress, no accessory muscle use Hips: bilateral hip non-tender, bilateral hip normal inspection, bilateral hip normal range of motion Legs: left leg other (tenderness to palpation to the left calf but no swelling or erythema or ecchymosis. junior technical writer reports venous ultrasound negative for DVT.) Knees: bilateral knee non-tender, bilateral knee normal inspection, bilateral knee normal range of motion Ankles: bilateral ankle non-tender, bilateral ankle normal inspection, bilateral ankle normal range of motion Neurologic/Psychiatric: alert, normal mood/affect, oriented x 3 Skin: normal color, warm/dry Progress/Results/Core Measures Results/Orders My Orders Orders - MAGDY ZIEGLER APRN Cbc With Automated Diff (10/07/19 15:41) Basic Metabolic Panel (10/07/19 15:41) Vital Signs/I&O 10/07/19 15:06 Temp 36.7 Pulse 117 Resp 18 B/P (MAP) 183/83 (116) Pulse Ox 99 O2 Delivery Nasal Cannula Blood Pressure Mean: 116 Departure Impression Primary Impression: left calf strain Disposition: 01 HOME, SELF-CARE Condition: Stable Departure-Patient Inst. Decision time for Depature: 15:44 Referrals: DOUG SEWELL DO (PCP/Family) Primary Care Physician Patient Instructions: Muscle Strain Add. Discharge Instructions: 1. Return to ER for any concerns 2. Follow-up with your doctor next week 3. All discharge instructions reviewed with patient and/or family. Voiced understanding. Scripts Acetaminophen/Diphenhydramine (Percogesic 325-12.5 mg Tablet) 1 Each Tablet 1 EACH PO Q4H PRN for PAIN-MILD (1-4), #10 TAB Prov: MAGDY ZIEGLER APRN 10/07/19 MAGDY ZIEGLER APRN Oct 07, 2019 15:45
[2019-10-07 15:47] LABS: BASOPHILS # (AUTO) 0.1 10^3/uL (0.0-0.1); BASOPHILS % (AUTO) 1 % (0-10); EOSINOPHILS # (AUTO) 0.1 10^3/uL (0.0-0.3); EOSINOPHILS % (AUTO) 1 % (0-10); HEMATOCRIT 36 % (35-52); HEMOGLOBIN 11.5 G/DL (11.5-16.0); LYMPHOCYTES # (AUTO) 1.4 X 10^3 (1.0-4.0); LYMPHOCYTES % (AUTO) 14 % (12-44); MEAN CORPUSCULAR HEMOGLOBIN 30 PG (25-34); MEAN CORPUSCULAR HGB CONC 32 G/DL (32-36); MEAN CORPUSCULAR VOLUME 94 FL (80-99); MEAN PLATELET VOLUME 9.9 FL (7.4-10.4); MONOCYTES # (AUTO) 0.4 X 10^3 (0.0-1.0); MONOCYTES % (AUTO) 4 % (0-12); NEUTROPHILS # (AUTO) 8.2 X 10^3 (1.8-7.8); NEUTROPHILS % (AUTO) 80 % (42-75); PLATELET COUNT 246 10^3/uL (130-400); WHITE BLOOD COUNT 10.2 10^3/uL (4.3-11.0)
[2019-10-07 15:51] LABS: POTASSIUM 4.4 MMOL/L (3.6-5.0)
[2019-10-07 15:53] LABS: CALCIUM 8.8 MG/DL (8.5-10.1)
[2019-10-07 15:57] LABS: CREATININE SERUM 1.18 MG/DL (0.60-1.30)
--- NOTE | 2019-10-07 15:57 | Diagnostic Imaging Report ---
PROCEDURE: US left lower extremity venous. TECHNIQUE: Multiple real-time grayscale images were obtained over the left lower extremity in various projections. Additional duplex Doppler and color Doppler images were also obtained. INDICATION: Leg pain and swelling. FINDINGS: Left lower extremity femoropopliteal deep venous system is widely patent. No deep or superficial thrombus. No mass or fluid collection. IMPRESSION: Normal negative unilateral left lower extremity venous Doppler and ultrasound exam. Dictated by: Dictated on workstation # [id number]
[2019-10-07 16:02] VITALS: BP 162/83
== END 2019-10-07 16:02 | disposition home or self-care (01) ==
LOC: EDUNIT# 14:57 → ER 14:58
DX: S86.912A Strain of unspecified muscle(s) and tendon(s) at lower leg level, left leg, initial encounter (principal); J44.9 Chronic obstructive pulmonary disease, unspecified; I11.9 Hypertensive heart disease without heart failure; I42.9 Cardiomyopathy, unspecified; I25.10 Atherosclerotic heart disease of native coronary artery without angina pectoris; K21.9 Gastro-esophageal reflux disease without esophagitis; E11.9 Type 2 diabetes mellitus without complications; E03.9 Hypothyroidism, unspecified; F41.9 Anxiety disorder, unspecified; F32.9 Major depressive disorder, single episode, unspecified; Z88.0 Allergy status to penicillin; Z88.5 Allergy status to narcotic agent; Z88.6 Allergy status to analgesic agent; Z88.8 Allergy status to other drugs, medicaments and biological substances; Z79.82 Long term (current) use of aspirin; Z79.51 Long term (current) use of inhaled steroids; Z79.4 Long term (current) use of insulin; Z79.890 Hormone replacement therapy; Z96.653 Presence of artificial knee joint, bilateral; Z90.49 Acquired absence of other specified parts of digestive tract; Z99.81 Dependence on supplemental oxygen; Z95.5 Presence of coronary angioplasty implant and graft; Z82.49 Family history of ischemic heart disease and other diseases of the circulatory system; X58.XXXA Exposure to other specified factors, initial encounter
CPT/HCPCS: 36415; 80048; 85025

== ENCOUNTER 2019-10-10 10:22 | Emergency (ER) | payer MEDICARE, OTHER ==
[~2019-10-10] VITALS: Ht 165.1 cm; Wt 112.1 kg
[~2019-10-10 10:22] MED LIST changes: +ACET-1672 PO
--- NOTE | 2019-10-10 10:46 | ED General ---
General Stated Complaint: PAIN ALL OVER History of Present Illness Date Seen by Provider: Oct 10, 2019 Time Seen by Provider: 10:46 Initial Comments 63-year-old female presents with diffuse abdominal pain. Pains are worse in the epigastric and left upper quadrants. Patient thinks she has "pancreatitis" patient doesn't have a history of pancreatitis but has a friend is had pancreatitis and thinks it is similar. Patient reports that she does not have her gallbladder. The pain has been going on for at least a week to 10 days and has been getting worse. Patient denies any nausea, vomiting, diarrhea, chest pain, fever, chills, constipation. She reports she's had 2 bowel movements this morning. Patient was also seen here about 4 days ago due to left calf pain that she thought was due to a DVT. She had a negative ultrasound. She was given Lortabs and states that she still having some pain. She is very anxious. She also complains of some back pain. Allergies and Home Medications Allergies Coded Allergies: Penicillins (Verified Allergy, Unknown, 05/15/19) meperidine (Verified Allergy, Unknown, 09/06/19) morphine (Unverified Allergy, Unknown, 05/15/19) propoxyphene (Verified Allergy, Unknown, 05/15/19) topiramate (Verified Allergy, Unknown, 05/15/19) codeine (Verified Adverse Reaction, Unknown, UPSET STOMACH, 09/13/19) dapagliflozin (Verified Adverse Reaction, Unknown, yeast infection, 09/13/19) Home Medications Acetaminophen 500 Mg Tablet, 1,000 MG PO Q6H PRN for PAIN-MILD, (Reported) Acetaminophen/Diphenhydramine 1 Each Tablet, 1 EACH PO Q4H PRN for PAIN-MILD (1- 4) Prescribed by: MAGDY ZIEGLER on 10/07/19 1545 Amlodipine Besylate 10 Mg Tablet, 5 MG PO DAILY, (Reported) Aspirin 81 Mg Tablet.dr, 81 MG PO DAILY, (Reported) Atorvastatin Calcium 10 Mg Tablet, 10 MG PO DAILY, (Reported) Cetirizine HCl 10 Mg Tablet, 10 MG PO DAILY, (Reported) Citalopram Hydrobromide 10 Mg Tablet, 10 MG PO DAILY, (Reported) Cranberry Fruit Concentrate 500 Mg Capsule, 500 MG PO DAILY, (Reported) Cyanocobalamin 1,000 Mcg/Ml Inj, 1,000 MCG IM UD, (Reported) Cyclobenzaprine HCl 10 Mg Tablet, 10 MG PO PRN, (Reported) Diphenoxylate HCl/Atropine 1 Each Tablet, 1 EACH PO PRN, (Reported) Eszopiclone 2 Mg Tablet, 2 MG PO HS, (Reported) Fluticasone Propionate 16 Gm Table Rock.susp, 2 SPRAYS NS HS, (Reported) Fluticasone Propionate 30 Gm Cream..g., 50 GM TP DAILY, (Reported) Gabapentin 100 Mg Capsule, 100 MG PO TID, (Reported) Insulin Degludec 200 Unit/1 Ml Insuln.pen, 12 UNITS SC BID, (Reported) Levothyroxine Sodium 125 Mcg Tablet, 125 MCG PO DAILY, (Reported) Lorazepam 1 Mg Tablet, 1 MG PO DAILY PRN for ANXIETY, (Reported) Losartan Potassium 50 Mg Tablet, 50 MG PO DAILY, (Reported) Magnesium Oxide 200 Mg Tablet, 400 MG PO DAILY, (Reported) Meclizine HCl 25 Mg Tablet, 25 MG PO TID, (Reported) Metoprolol Succinate 25 Mg Tab.er.24h, 25 MG PO DAILY, (Reported) Montelukast Sodium 10 Mg Tablet, 10 MG PO HS, (Reported) Ondansetron HCl 4 Mg Tablet, 4 MG PO UD, (Reported) Pantoprazole Sodium 40 Mg Tablet.dr, 40 MG PO DAILY, (Reported) Sucralfate 1 Gm Tablet, 1 GM PO QID Prescribed by: MARILY PANDEY on 09/13/19 0907 Tramadol HCl 50 Mg Tablet, 50 MG PO Q4H PRN for PAIN-MODERATE, (Reported) Trazodone HCl 50 Mg Tablet, 50 MG PO HS, (Reported) Vit D3 & K/Berberine HCl/Hops 1 Each Tablet, 1 EACH PO DAILY, (Reported) Patient Home Medication List Home Medication List Reviewed: Yes Review of Systems Review of Systems Constitutional: No chills, No fever, No weakness Respiratory: No cough, No short of breath Cardiovascular: No chest pain, No palpitations Gastrointestinal: abdominal pain; No constipation, No diarrhea, No nausea, No vomiting Musculoskeletal: back pain Skin: no symptoms reported Psychiatric/Neurological: Anxiety Hematologic/Lymphatic: No Symptoms Reported Immunological/Allergic: no symptoms reported Past Rrotzcy-Tazaav-Qmfvvi Hx Past Med/Social Hx: Reviewed Nursing Past Med/Soc Hx Patient Social History 2nd Hand Smoke Exposure: No Recent Foreign Travel: No Contact w/Someone Who Travel: No Recent Hopitalizations: No Immunizations Up To Date Tetanus Booster (TDap): Unknown Date of Pneumonia Vaccine: Feb 05, 2017 Date of Influenza Vaccine: Dec 21, 2018 Seasonal Allergies Seasonal Allergies: No Past Medical History Surgeries: Yes (FOOT, bilat CTR, carotid endartectomy, bilat TKR) Appendectomy, Coronary Stent, Gallbladder, Orthopedic, Thyroidectomy Respiratory: Yes (CPAP - 3L NC O2 ) Asthma, Sleep Apnea, COPD Currently Using CPAP: Yes Currently Using BIPAP: No Cardiac: Yes (STENT) Cardiomyopathy, Chronic Edema/Swelling, Coronary Artery Disease, High Cholesterol, Hypertension, Valvular Heart Disease Neurological: No 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 Disorders: No TRIAL JUDGE 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: 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 Sexually Transmitted Disease: No HIV/AIDS: No Genitourinary: No UTI-Chronic Gastrointestinal: Yes Gastroesophageal Reflux Musculoskeletal: Yes (ARTHRITIS, spinal stenosis) Arthritis, Scoliosis Endocrine: Yes Diabetes, Insulin dep, Hypothyroidsim HEENT: No Cancer: No Psychosocial: Yes Anxiety, Depression Integumentary: No Blood Disorders: No Adverse Reaction/Blood Tranf: No Family Medical History Alzheimer's disease G8 SISTER Diabetes mellitus 19 FATHER Hypertension 19 FATHER 19 MOTHER Myocardial infarction 19 FATHER 19 MOTHER Neoplasm G8 SISTER Physical Exam Vital Signs Vital Signs - First Documented 10/10/19 10:30 Temp 36.6 Pulse 101 Resp 17 B/P (MAP) 139/75 (96) Pulse Ox 100 O2 Delivery Room Air Capillary Refill : Height, Weight, BMI Height: 5'4.00" Weight: 246lbs. 6.0oz. 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 Norm as Tested Skin: Normal Color, Warm/Dry Progress/Results/Core Measures Suspected Sepsis SIRS Temperature: Pulse: Respiratory Rate: Laboratory Tests 10/10/19 10:40: White Blood Count 11.3H Blood Pressure / Mean: Laboratory Tests 10/10/19 10:40: Creatinine 1.04, Platelet Count 242, Total Bilirubin 0.4 Results/Orders Lab Results Laboratory Tests Test 10/10/19 10:40 10/10/19 11:08 Range/Units White Blood Count 11.3 H 4.3-11.0 10^3/uL Red Blood Count 3.80 L 4.35-5.85 10^6/uL Hemoglobin 11.6 11.5-16.0 G/DL Hematocrit 36 35-52 % Mean Corpuscular Volume 95 80-99 FL Mean Corpuscular Hemoglobin 31 25-34 PG Mean Corpuscular Hemoglobin Concent 32 32-36 G/DL Red Cell Distribution Width 13.1 10.0-14.5 % Platelet Count 242 130-400 10^3/uL Mean Platelet Volume 9.5 7.4-10.4 FL Neutrophils (%) (Auto) 84 H 42-75 % Lymphocytes (%) (Auto) 10 L 12-44 % Monocytes (%) (Auto) 5 0-12 % Eosinophils (%) (Auto) 1 0-10 % Basophils (%) (Auto) 0 0-10 % Neutrophils # (Auto) 9.5 H 1.8-7.8 X 10^3 Lymphocytes # (Auto) 1.1 1.0-4.0 X 10^3 Monocytes # (Auto) 0.5 0.0-1.0 X 10^3 Eosinophils # (Auto) 0.1 0.0-0.3 10^3/uL Basophils # (Auto) 0.0 0.0-0.1 10^3/uL Sodium Level 141 135-145 MMOL/L Potassium Level 4.8 3.6-5.0 MMOL/L Chloride Level 106 98-107 MMOL/L Carbon Dioxide Level 24 21-32 MMOL/L Anion Gap 11 5-14 MMOL/L Blood Urea Nitrogen 13 7-18 MG/DL Creatinine 1.04 0.60-1.30 MG/DL Estimat Glomerular Filtration Rate 53 BUN/Creatinine Ratio 13 Glucose Level 209 H 70-105 MG/DL Calcium Level 8.6 8.5-10.1 MG/DL Corrected Calcium 8.9 8.5-10.1 MG/DL Total Bilirubin 0.4 0.1-1.0 MG/DL Aspartate Amino Transf (AST/SGOT) 18 5-34 U/L Alanine Aminotransferase (ALT/SGPT) 21 0-55 U/L Alkaline Phosphatase 136 40-136 U/L Total Protein 7.0 6.4-8.2 GM/DL Albumin 3.6 3.2-4.5 GM/DL Lipase 22 8-78 U/L Urine Color YELLOW Urine Clarity CLEAR Urine pH 6.5 5-9 Urine Specific [place] 1.015 L 1.016-1.022 Urine Protein NEGATIVE NEGATIVE Urine Glucose (UA) TRACE H NEGATIVE Urine Ketones NEGATIVE NEGATIVE Urine Nitrite NEGATIVE NEGATIVE Urine Bilirubin NEGATIVE NEGATIVE Urine Urobilinogen 0.2 < = 1.0 MG/DL Urine Leukocyte Esterase NEGATIVE NEGATIVE Urine RBC (Auto) NEGATIVE NEGATIVE Urine RBC NONE /HPF Urine WBC NONE /HPF Urine Squamous Epithelial Cells 5-10 /HPF Urine Crystals NONE /LPF Urine Bacteria TRACE /HPF Urine Casts NONE /LPF Urine Mucus NEGATIVE /LPF Urine Yeast FEW H /HPF Urine Culture Indicated NO My Orders Orders - PAWAN WHEELERVOR L DO Comprehensive Metabolic Panel (10/10/19 10:49) Lipase (10/10/19 10:49) Ua Culture If Indicated (10/10/19 10:49) Acute Abd Series (10/10/19 10:49) Cbc With Automated Diff (10/10/19 10:49) Famotidine Injection (Pepcid Injection) (10/10/19 10:49) Ketorolac Injection (Toradol Injection) (10/10/19 10:49) Ct Abdomen/Pelvis W (10/10/19 11:58) Iohexol Injection (Omnipaque 350 Mg/Ml 1 (10/10/19 12:30) Received Contrast (Hold Metformin- Contr (10/10/19 12:30) Ns (Ivpb) (Sodium Chloride 0.9% Ivpb Bag (10/10/19 12:30) Medications Given in ED Current Medications Medications Dose Ordered Sig/Katrina Route Start Time Stop Time Status Last Admin Dose Admin Iohexol 100 ml ONCE ONCE IV 10/10/19 12:30 10/10/19 12:31 DC 10/10/19 12:22 100 ML Sodium Chloride 100 ml ONCE ONCE IV 10/10/19 12:30 10/10/19 12:31 DC 10/10/19 12:22 80 ML Vital Signs/I&O 10/10/19 10:30 Temp 36.6 Pulse 101 Resp 17 B/P (MAP) 139/75 (96) Pulse Ox 100 O2 Delivery Room Air Capillary Refill : Progress Note : Time: 12:53 Progress Note Agent with no acute findings on labs, negative abdominal x-rays negative CT abdomen. Discussed with her is likely gastritis and reflux. She should start Pepcid twice daily and follow-up with her primary care provider for further management Diagnostic Imaging Diagonstic Imaging: Xray Plain Films/CT/US/NM/MRI: chest, abdomen Comments [facility] [place] NAME: RUDDY GARLAND [facility] REC#: [id number] PT STATUS: REG ER : 1955 PHYSICIAN: GAIL WHEELER DO ADMIT DATE: 10/10/19/ER Draft Date of Exam:10/10/19 ACUTE ABD SERIES INDICATION: Abdominal pain. TIME OF EXAM: 11:11 AM Correlation is made with prior chest from 05/15/2019. Heart size normal. Lungs are clear. No free air is identified. There are surgical clips right upper quadrant. Moderate stool throughout the colon is noted. Bowel gas pattern appears nonobstructed. No pathologic calcifications are seen. IMPRESSION: No acute feature is detected. [place] NAME: RUDDY GARLAND [facility] REC#: [id number] PT STATUS: REG ER : 1955 PHYSICIAN: GAIL WHEELER DO ADMIT DATE: 10/10/19/ER Draft Date of Exam:10/10/19 CT ABDOMEN/PELVIS W PROCEDURE: CT abdomen and pelvis with contrast. TECHNIQUE: Multiple contiguous axial images were obtained through the abdomen and pelvis after administration of intravenous contrast. Auto Exposure Controls were utilized during the CT exam to meet ALARA standards for radiation dose reduction. INDICATION: Upper abdominal pain. COMPARISON: 04/11/2019. FINDINGS: The lung bases are clear. The liver again demonstrates some generalized low density, consistent with hepatic steatosis. No discrete liver mass is detected. The gallbladder is surgically absent. No biliary ductal dilatation is identified. The pancreas and spleen are unremarkable. No adrenal mass is detected. The kidneys are unremarkable. The aorta is calcified but not aneurysmal. No central retroperitoneal or mesenteric lymphadenopathy is detected. The bowel loops are of normal caliber. There is no obstruction. There is moderate stool in the colon. No free fluid is detected. No fluid collection is identified. The uterus is unremarkable. The bladder is decompressed. No pelvic lymphadenopathy is identified. IMPRESSION: Stable CT abdomen and pelvis since the prior study from 04/11/2019. No acute abnormality is detected. Reviewed: Reviewed by Me, Reviewed/Discussed Departure Impression Primary Impression: Gastritis Qualified Codes: K29.70 - Gastritis, unspecified, without bleeding Additional Impression: Abdominal pain Qualified Codes: R10.13 - Epigastric pain Disposition: HOME, SELF-CARE Condition: Stable Departure-Patient Inst. Referrals: DOUG SEWELL DO (PCP/Family) Primary Care Physician Patient Instructions: Stomach Ache and Stomach Upset, Gastritis, Severe Abdominal Pain, Adult (DC) Add. Discharge Instructions: Start Pepcid twice daily Follow-up with your primary care provider for continuation of care and further evaluation and possible surgery consult for an EGD Emergency department focuses on treating and ruling out life-threatening diseases. Whenever possible, a diagnosis is given. However, most patients are given an impression based on their history, physical exam, and workup during your brief time in the ER. Information about probable diagnosis and other educational material has been provided. Please take the time to read and understand this information. It is very important that you follow up with a physician as discussed during the visit today. Failure to adhere to your follow-up instructions may lead to severe disability, injury, or so please make sure to keep your appointments or obtain one as requested. Please keep in mind the emergency department is not designed to your primary care or "family doctor" and nonurgent issues are best evaluated by an outpatient physician. GAIL WHEELER DO Oct 10, 2019 10:46
[2019-10-10] MEDS ORDERED: KETOROLAC 30 MG/ML VIAL IVP STA (10:49)
[2019-10-10] MEDS ORDERED: FAMOTIDINE 20MG/2ML IV (PEPCID) IV STA (10:49)
[2019-10-10 10:56] LABS: BASOPHILS % (AUTO) 0 % (0-10); EOSINOPHILS # (AUTO) 0.1 10^3/uL (0.0-0.3); EOSINOPHILS % (AUTO) 1 % (0-10); HEMATOCRIT 36 % (35-52); HEMOGLOBIN 11.6 G/DL (11.5-16.0); LYMPHOCYTES # (AUTO) 1.1 X 10^3 (1.0-4.0); LYMPHOCYTES % (AUTO) 10 % (12-44); MEAN CORPUSCULAR HEMOGLOBIN 31 PG (25-34); MEAN CORPUSCULAR HGB CONC 32 G/DL (32-36); MEAN CORPUSCULAR VOLUME 95 FL (80-99); MEAN PLATELET VOLUME 9.5 FL (7.4-10.4); MONOCYTES # (AUTO) 0.5 X 10^3 (0.0-1.0); MONOCYTES % (AUTO) 5 % (0-12); NEUTROPHILS # (AUTO) 9.5 X 10^3 (1.8-7.8); NEUTROPHILS % (AUTO) 84 % (42-75); PLATELET COUNT 242 10^3/uL (130-400); RED CELL DISTRIBUTION WIDTH 13.1 % (10.0-14.5); WHITE BLOOD COUNT 11.3 10^3/uL (4.3-11.0)
--- NOTE | 2019-10-10 11:18 | Diagnostic Imaging Report ---
INDICATION: Abdominal pain. TIME OF EXAM: 11:11 AM Correlation is made with prior chest from 05/15/2019. Heart size normal. Lungs are clear. No free air is identified. There are surgical clips right upper quadrant. Moderate stool throughout the colon is noted. Bowel gas pattern appears nonobstructed. No pathologic calcifications are seen. IMPRESSION: No acute feature is detected. Dictated by: Dictated on workstation # [id number]
--- OUTSIDE RECORDS SUMMARY | 2019-10-10 11:18 | XMS REPORT | Encounter Summary ---
Author Author [facility] Organization [facility] Address Unknown Phone Unavailable Care Team Providers Care Crisis Clinician Name Role Phone PCP Unavailable Encounter Details Care Team Description Date Type Department Frederic Culver MD [address] [facility] [address] [place] [address] [phone] [facility] [address] [place] [address] Social History Date Tobacco Use Types Packs/Day [...] Address City/State/Zipcode Ph one Number [facility] [address] [place], [place] [address] HL[place] * Protein Electrophoresis [...] Sheets M.D.,Ph.D. Specimen Blood Performing Organization Address City/State/[facility] Ph one Number [facility] [address] [place], [place] [address] [place] documented in this encounter Visit Diagnoses Not on filedocumented in this encounter
--- OUTSIDE RECORDS SUMMARY | 2019-10-10 11:18 | XMS REPORT | Clinical Summary ---
Author Author [facility] Organization [facility] Address Unknown Phone Unavailable Care Team Providers Care Grinder Mill Operator Name Role Phone PCP Unavailable Allergies Not [...]
--- OUTSIDE RECORDS SUMMARY | 2019-10-10 11:19 | XMS REPORT | Encounter Summary ---
Author Author [facility] Organization [facility] Address Unknown Phone Unavailable Care Team Providers Care Night Guard Name Role Phone PCP Unavailable Encounter Details Care Team Description Date Type Department Frederic Culver MD [address] [facility] [address] [place] [address] [phone] [facility] [address] [place] [address] Social History Date Tobacco Use Types Packs/Day [...] Address City/State/Zipcode Ph one Number [facility] [address] [place], [place] [address] [place] * DNA Antibody (10/03/2010 1:00 PM CDT) DNA Antibody 4 0 - 5 IU/ML [place] Specimen Blood Performing Organization Address [facility] one Number [facility] [address] [place], [place] [address] [place] * GWYN Qualitative (10/03/2010 1:00 PM CDT) GWYN Qualitative Negative Negative [place] Specimen Blood Performing Organization Address [facility] one Number [facility] [address] [place] [phone] [place] * RO/SSA Antibody (10/03/2010 1:00 PM CDT) RO/SSA Antibody Negative [place] Specimen Blood Performing Organization Address [facility] one Number [facility] [address] [place] [phone] [place] * Smooth Muscle Antibody (10/03/2010 1:00 PM CDT) Smooth Muscle 10 0 - 15 UNITS [place] Antibody Specimen Blood Performing Organization Address [facility] one Number [facility] [address] [place] [phone] [place] documented in this encounter Visit Diagnoses Not on filedocumented in this encounter
--- OUTSIDE RECORDS SUMMARY | 2019-10-10 11:19 | XMS REPORT | Encounter Summary ---
Author Author [facility] Organization [facility] Address Unknown Phone Unavailable Care Team Providers Care Cost Analyst Name Role Phone PCP Unavailable Encounter Details Care Team Description Date Type Department Frederic Culver MD [address] [facility] [address] [address] [phone] 07/16/2012 [facility] al Encounter [address] [place] [address] Social History Date Tobacco Use Types Packs/Day [...] Address City/State/Zipcode Ph one Number [facility] [address] [place], [place] [address] HL[place] documented in this encounter Visit Diagnoses Not on filedocumented in this encounter
--- OUTSIDE RECORDS SUMMARY | 2019-10-10 11:22 | XMS REPORT | Continuity of Care Document ---
Demographics Preferred Language Unknown Marital Status Unknown Orthodox Affiliation Unknown Race Unknown Ethnic Group Unknown Author Organization Unknown Address Unknown Phone Unavailable Allergies Active Description Code Type Severity Reaction Onset Reported/Identified Relationship to Patient Clinical Status Yes CODEINE SULFATE M ODERATE MODERATE Yes DEMEROL MODERATE MODERATE Yes FARXIGA MODERATE MODERATE Yes MORPHINE MODERATE MODERATE Yes PENICILLINS MODERATE MODERATE Yes TOPAMAX MODERATE TO SEVERE MODERATE TO SEVERE Yes acetaminophen [id number] Matthias g Allergy Unknown N/A 10/22/2006 Yes morphine [id number] Drug Allergy Unknown N/A 05/15/2019 Yes Penicillins [id number] Drug Aller gy Unknown N/A 05/15/2019 Yes propoxyphene [id number] Drug Allergy Unknown N/A 05/15/2019 Yes topiramate [id number] Drug Allerg y Unknown N/A 05/15/2019 Yes meperidine [id number] Drug Allerg y Unknown N/A 09/06/2019 Yes codeine [id number] Drug Allergy Unknown UPSET STOMACH 09/13/2019 Yes dapagliflozin [id number] Matthias g Allergy Unknown yeast infection 09/13/2019 Medications Medication Packaging Start Date St op Date Route Dosage Sig LORAZEPAM TAB 1 MG (ATIVAN) MG 08/01/2019 08/01/2019 [id number] KETOROLAC VIAL INJ 60 MG/2CC (TORADOL VIAL ) MG 08/01/2019 08/01/2019 [id number] Problems Date Dx Coded Attending Type Code Diagnosis Diagnosed By 02/06/1508 MARILY PANDEY DO Ot Z01.818 ENCOUNTER FOR OTHER PREPROCEDURAL EXAMIN 02/06/1508 MARILY PANDEY DO Ot Z20.828 CONTACT W AND EXPOSURE TO OTH VIRAL COMM 08/29/2009 Ot 530.81 ESO PHAGEAL REFLUX 08/29/2009 [...] R Ot 285. 9 ANEMIA NOS 03/02/2013 BATSHEVA LARKIN, KIYA R Ot 780. 79 OTH MALAISE FATIGUE [...] GHANSHYAM LARKIN, Justyn BADILLO Ot 599.0 03/13/2014 GHANSHYAM LARKIN, Justyn BADILLO Ot 595.9 03/13/2014 MARY LARKIN, TAKCASI Ot V72.84 03/13/2014 BATSHEVA LARKIN, KIYA R Ot 368. 9 03/13/2014 BATSHEVA LARKIN, KIYA R Ot 784. 0 03/13/2014 Ot 285.9 03/13/2014 Ot 780.79 03/13/2014 LEANNA BROOKE MD Ot V76.1 2 05/04/2014 BATSHEVA LARKIN, KIYA R Ot 599. 0 06/11/2014 BATSHEVA LARKIN, KIYA R Ot 599. 0 URIN TRACT INFECTION NOS 08/05/2014 MENDY LARKIN, LEANNA Alejandra Ot V76.1 2 09/21/2014 BATSHEVA LARKIN, KIYA R Ot 786. 2 09/21/2014 BATSHEVA LARKIN, KIYA R Ot 786. 50 09/28/2014 BATSHEVA LARKIN, KIYA R Ot 784. 0 09/28/2014 BATSHEVA LARKIN, KIYA R Ot 786. 2 09/28/2014 BATSHEVA LARKIN, KIYA R Ot 786. 50 10/05/2014 BATSHEVA LARKIN, KIYA R Ot 784. 0 11/03/2014 AURELIO LARKIN, JUSTINO Clay Ot 244. 9 HYPOTHYROIDISM NOS 11/03/2014 AURELIO LARKIN, JUSTINO Clay Ot 250. 00 DIAB JOSE WO COMPL, TYPE II OR UNSPEC TY 11/03/2014 JUSTINO CAREY MD Ot 401. 9 HYPERTENSION NOS 11/03/2014 AURELIO LARKIN, JUSTINO Clay Ot 729. 1 MYALGIA AND MYOSITIS NOS 11/03/2014 AURELIO LARKIN, JUSTINO Clay Ot 786. 50 CHEST PAIN NOS 11/03/2014 AURELIO LARKIN, JUSTINO Clay Ot 786. 52 PAINFUL RESPIRATION 11/03/2014 AURELIO LARKIN, JUSTINO Clay Ot V17. 3 FAM HX-ISCHEM HEART DIS 11/03/2014 AURELIO LARKIN, JUSTINO Clya Ot V58. 69 OTH MED,LT,CURRENT USE 11/03/2014 [...] 11/03/2014 Ot 571.8 11/03/2014 Ot 789.09 11/03/2014 Justyn MORRISSEY MD Ot 595.2 11/03/2014 Justyn MORRISSEY MD Ot 599.0 11/03/2014 Justyn MORRISSEY MD Ot 595.9 11/03/2014 MARQUITA HERNANDEZ MD Ot V72.84 11/03/2014 BATSHEVA LARKIN, KIYA R Ot 368. 9 11/03/2014 KIYA HERMAN MD R Ot 784. 0 11/03/2014 Ot 285.9 11/03/2014 Ot 780.79 11/03/2014 LEANNA BROOKE MD Ot V76.1 2 11/03/2014 LEANNA BROOKE MD Ot V76.1 2 11/03/2014 BATSHEVA LARKIN, KIYA R Ot 599. 0 11/03/2014 BATSHEVA LARKIN, KIYA R Ot 786. 2 11/03/2014 BATSHEVA LARKIN, KIYA R Ot 786. 50 11/03/2014 BATSHEVA LARKIN, KIYA R Ot 784. 0 11/15/2014 NWAGWU, ISIDORE O EAP CONSULTANT Ot 250.00 11/15/2014 NWAGWU, ISIDORE O EAP CONSULTANT Ot 401.9 11/15/2014 NWAGWU, ISIDORE O EAP CONSULTANT Ot 443.9 11/29/2014 NWAGWU, ISIDORE O EAP CONSULTANT Ot 250.00 11/29/2014 NWAGWU, ISIDORE O EAP CONSULTANT Ot 401.9 11/29/2014 NWAGWU, ISIDORE O EAP CONSULTANT Ot 443.9 12/06/2014 NWAGWU, ISIDORE O EAP CONSULTANT Ot 250.00 12/06/2014 NWAGWU, ISIDORE O EAP CONSULTANT Ot 401.9 12/06/2014 NWAGWU, ISIDORE O EAP CONSULTANT Ot 443.9 12/12/2014 Ot R06.02 VENKATA RTNESS [...] MD Ot R06.02 SHORTNESS OF BREATH 01/19/2015 LARRY MURILLO DO Ot E03. 9 01/19/2015 LARRY MURILLO DO Ot E11. 9 01/19/2015 LARRY MURILLO DO Ot E66. 9 01/19/2015 LARRY MURILLO DO Ot I10 01/19/2015 LARRY MURILLO DO Ot J45.998 02/07/2015 LARRY MURILLO DO Ot E03. 9 02/07/2015 CHIDI LARRY RUCKER Ot E11. 9 02/07/2015 CHIDI LARRY RUCKER Ot E66. 9 02/07/2015 CHIDI LARRY RUCKER Ot I10 02/07/2015 LARRY MURILLO DO Ot J45.998 02/08/2015 LARRY MURILLO DO Ot E03. 9 02/08/2015 CHIDI LARRY RUCKER Ot E11. 9 02/08/2015 CHIDI LARRY RUCKER Ot E66. 9 02/08/2015 LARRY MURILLO DO Ot I10 02/08/2015 LARRY MURILLO DO Ot J45.998 02/12/2015 CHIDI RCUKERLARRY Ot G47. 33 OBSTRUCTIVE SLEEP APNEA (ADULT) (PEDIATR 03/16/2015 MARIPOSA SANCHEZ APRN Ot G47.33 OBSTRUCTIVE SLEEP APNEA (ADULT) (PEDIATR 03/16/2015 MARIPOSA SANCHEZ APRN Ot G47.61 PERIODIC LIMB MOVEMENT DISORDER 03/29/2015 CHIDI RUCKER LARRY Damon Ot E03. 9 03/29/2015 CHIDI RUCKERLARRY Ot E11. 9 03/29/2015 CHIDI LARRY RUCKER Ot E66. 9 03/29/2015 CHIDI RUCKERLARRY Ot I10 03/29/2015 CHIDI RUCKER LARRY Damon Ot J45.998 04/05/2015 CHIDI RUCKERLARRY Ot E03. 9 04/05/2015 CHIDI RUCKERLARRY Ot E11. 9 04/05/2015 CHIDI RUCKER LARRY Jose Ot E66. 9 04/05/2015 CHIDI RUCKER LARRY Damon Ot I10 04/05/2015 CHIDI RUCKER LARRY Damon Ot J45.998 04/24/2015 Ot V58.61 04/24/2015 Ot [...] GHANSHYAM LARKIN, Justyn BADILLO Ot 595.9 04/24/2015 MARY LARKIN, TAKAAKI Ot V72.84 04/24/2015 BATSHEVA LARKIN, KIYA R Ot 368. 9 04/24/2015 BATSHEVA LARKIN, KIYA R Ot 784. 0 04/24/2015 Ot 285.9 04/24/2015 Ot 780.79 04/24/2015 MENDY LARKIN, LEANNA Alejandra Ot V76.1 2 04/24/2015 LEANNA BROOKE MD Ot V76.1 2 04/24/2015 BATSHEVA LARKIN, KIYA R Ot 599. 0 04/24/2015 BATSHEVA LARKIN, KIYA R Ot 786. 2 04/24/2015 BATSHEVA LARKIN, KIYA R Ot 786. 50 04/24/2015 BATSHEVA LARKIN, KIYA R Ot 784. 0 04/24/2015 NWABBIE PEÑA EAP CONSULTANT Ot 250.00 04/24/2015 NWRAVIN PEÑARE Junie EAP CONSULTANT Ot 401.9 04/24/2015 NWRAVIN PEÑARE O EAP CONSULTANT Ot 443.9 04/24/2015 LARRY MURILLO DO Ot E03. 9 04/24/2015 LARRY MURILLO DO Ot E11. 9 04/24/2015 LARRY MURILLO DO Ot E66. 9 04/24/2015 LARRY MURILLO DO Ot I10 04/24/2015 LARRY MURILLO DO Ot J45.998 04/24/2015 LARRY MURILLO DO Ot E03. 9 04/24/2015 LARRY MURILLO DO Ot E11. 9 04/24/2015 LARRY MURILLO DO Ot E66. 9 04/24/2015 CHIDI RUCKERLARRY Ot I10 04/24/2015 CHIDI RUCKERLARRY Ot J45.998 04/26/2015 BATSHEVA LARKIN, KIYA R Ot K76. 0 04/26/2015 BATSHEVA LARKIN, KIYA R Ot K76. 0 05/21/2015 BATSHEVA LARKIN, KIYA R Ot K76. 0 06/11/2015 BATSHEVA LARKIN, KIYA R Ot K76. 0 06/28/2015 MENDY LARKIN, LEANNA Alejandra Ot Z12.3 1 ENCNTR SCREEN MAMMOGRAM FOR MALIGNANT NE 06/29/2015 SATHYA ASNCHEZINE E EAP CONSULTANT Ot J45.909 UNSPECIFIED ASTHMA, UNCOMPLICATED 06/29/2015 DANIELSATHYA GUTIERRESINE E EAP CONSULTANT Ot J98.4 OTHER DISORDERS OF LUNG 06/29/2015 SATHYA SANCHEZINE E EAP CONSULTANT Ot R06.02 SHORTNESS OF BREATH 07/05/2015 SATHYA SANCHEZINE E EAP CONSULTANT Ot J45.909 UNSPECIFIED ASTHMA, UNCOMPLICATED 07/05/2015 DANIELSATHYA GUTIERRESINE E EAP CONSULTANT Ot J98.4 OTHER DISORDERS OF LUNG 07/05/2015 DANIELSATHYA GUTIERRESINE E EAP CONSULTANT Ot R06.02 SHORTNESS OF BREATH 07/18/2015 MENDY LARKIN, LEANNA Alejandra Ot Z12.3 1 ENCNTR SCREEN MAMMOGRAM FOR MALIGNANT NE 08/26/2015 SATHYA SANCHEZINE E EAP CONSULTANT Ot J45.909 UNSPECIFIED ASTHMA, UNCOMPLICATED 08/26/2015 DANIELSATHYA GUTIERRESINE E EAP CONSULTANT Ot J98.4 OTHER DISORDERS OF LUNG 08/26/2015 SATHYA SANCHEZINE E EAP CONSULTANT Ot R06.02 SHORTNESS OF BREATH 08/31/2015 SATHYA SANCHEZINE E EAP CONSULTANT Ot J45.909 UNSPECIFIED ASTHMA, UNCOMPLICATED 08/31/2015 DANIELSATHYA GUTIERRESINE E EAP CONSULTANT Ot J98.4 OTHER DISORDERS OF LUNG 08/31/2015 SATHYA SANCHEZINE E EAP CONSULTANT Ot R06.02 SHORTNESS OF BREATH 09/27/2015 SATHYA SANCHEZINE E EAP CONSULTANT Ot J45.909 UNSPECIFIED ASTHMA, UNCOMPLICATED 09/27/2015 DANIELSATHYA GUTIERRESINE E EAP CONSULTANT Ot J98.4 OTHER DISORDERS OF LUNG 09/27/2015 DANIELSATHYA GUTIERRESINE E EAP CONSULTANT Ot R06.02 SHORTNESS OF BREATH 10/04/2015 MARIPOSA SANCHEZ EAP CONSULTANT Ot J45.909 UNSPECIFIED ASTHMA, UNCOMPLICATED 10/04/2015 MARIPOSA SANCHEZ EAP CONSULTANT Ot J98.4 OTHER DISORDERS OF LUNG 10/04/2015 MARIPOSA SANCHEZ EAP CONSULTANT Ot R06.02 SHORTNESS OF BREATH 10/08/2015 NADJA LARKIN, MARCELO Alejandra Ot M47.8 96 OTHER SPONDYLOSIS, LUMBAR REGION 10/26/2015 NADJA LARKIN, MARCELO Alejandra Ot M47.8 96 OTHER SPONDYLOSIS, LUMBAR REGION 11/02/2015 MAGDY ZIEGLER EAP CONSULTANT Ot F41 .9 ANXIETY DISORDER, UNSPECIFIED 11/02/2015 MAGDY ZIEGLER APRN Ot I51 .7 CARDIOMEGALY 11/02/2015 MAGDY ZIEGLER APRN Ot R00 .2 PALPITATIONS 11/02/2015 MAGDY ZIEGLER APRN Ot R06.00 DYSPNEA, UNSPECIFIED 11/02/2015 NADJA LARKIN, MARCELO Alejandra Ot M47.8 96 OTHER SPONDYLOSIS, LUMBAR REGION 11/05/2015 MAGDY ZIEGLER APRN Ot F41 .9 ANXIETY DISORDER, UNSPECIFIED 11/05/2015 MAGDY ZIEGLER APRN Ot I51 .7 CARDIOMEGALY 11/05/2015 MAGDY ZIEGLER APRN Ot R00 .2 PALPITATIONS 11/05/2015 MAGDY ZIEGLER APRN Ot R06.00 DYSPNEA, UNSPECIFIED 11/23/2015 MAGDY ZIEGLER APRN Ot E11.649 TYPE 2 DIABETES MELLITUS WITH HYPOGLYCEM 11/23/2015 MAGDY ZIEGLER APRN Ot E11 .9 TYPE 2 DIABETES MELLITUS WITHOUT COMPLIC 11/23/2015 MAGDY ZIEGLER APRN Ot F41 .9 ANXIETY DISORDER, UNSPECIFIED 11/23/2015 MAGDY ZIEGLER APRN Ot I51 .7 CARDIOMEGALY 11/23/2015 MAGDY ZIEGLER APRN Ot R05 COUGH 11/23/2015 MAGDY ZIEGLER APRN Ot R10.10 UPPER ABDOMINAL PAIN, UNSPECIFIED 11/23/2015 MGADY ZIEGLER APRN Ot Z79.899 OTHER LONGTERM (CURRENT) DRUG THERAPY 11/26/2015 MAGDY ZIEGLER APRN Ot E11.649 TYPE 2 DIABETES MELLITUS WITH HYPOGLYCEM 11/26/2015 ZIGELER, PETER J EAP CONSULTANT Ot E11 .9 TYPE 2 DIABETES MELLITUS WITHOUT COMPLIC 11/26/2015 MAGDY ZIEGLER EAP CONSULTANT Ot F41 .9 ANXIETY DISORDER, UNSPECIFIED 11/26/2015 MAGDY ZIEGLER EAP CONSULTANT Ot I51 .7 CARDIOMEGALY 11/26/2015 MAGDY ZIEGLER EAP CONSULTANT Ot R05 COUGH 11/26/2015 MAGDY ZIEGLER EAP CONSULTANT Ot R10.10 UPPER ABDOMINAL PAIN, UNSPECIFIED 11/26/2015 MAGDY ZIEGLER EAP CONSULTANT Ot Z79.899 OTHER SHIP ENGINEER (CURRENT) DRUG THERAPY 11/28/2015 MARIPOSA SANCHEZ EAP CONSULTANT Ot J45.909 UNSPECIFIED ASTHMA, UNCOMPLICATED 11/28/2015 MARIPOSA SANCHEZ EAP CONSULTANT Ot J98.4 OTHER DISORDERS OF LUNG 11/28/2015 MARIPOSA SANCHEZ APRN Ot R06.02 SHORTNESS OF BREATH 11/28/2015 NGHIA GUTIERREZ MD Ot G47. 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 9 VISUAL DISTURBANCE NOS 12/12/2015 KIYA HERMAN MD Ot 784. 0 HEADACHE 12/12/2015 Ot 285.9 ANEM IA NOS 12/12/2015 Ot 780.79 OTH MALAISE FATIGUE 12/12/2015 LEANNA BROOKE MD Ot V76.1 2 OTH SCREEN MAMMO-MALIGN NEOPLASM OF CALEB 12/12/2015 LEANNA BROOKE MD Ot V76.1 2 OTH SCREEN MAMMO-MALIGN NEOPLASM OF CALEB 12/12/2015 KIYA HERMAN MD Ot 599. 0 URIN TRACT INFECTION NOS 12/12/2015 BATSHEVA LARKIN, KIYA R Ot 786. 2 COUGH 12/12/2015 KIYA HERMAN MD R Ot 786. 50 CHEST PAIN NOS 12/12/2015 KIYA HERMAN MD R Ot 784. 0 HEADACHE 12/12/2015 NWAGWU, ISIDORE O EAP CONSULTANT Ot 250.00 DIAB JOSE WO COMPL, TYPE II OR UNSPEC TY 12/12/2015 NWAGWU, ISIDORE O EAP CONSULTANT Ot 401.9 HYPERTENSION NOS 12/12/2015 NWAGWU, ISIDORE O EAP CONSULTANT Ot 443.9 PERIPH VASCULAR DIS NOS 12/12/2015 LARRY MURILLO DO Ot E03. 9 HYPOTHYROIDISM, UNSPECIFIED 12/12/2015 LARRY MURILLO DO Ot E11. 9 TYPE 2 DIABETES MELLITUS WITHOUT COMPLIC 12/12/2015 LARRY MURILLO DO Ot E66. 9 OBESITY, UNSPECIFIED 12/12/2015 LARRY MURILLO DO Ot I10 ESSENTIAL (PRIMARY) HYPERTENSION 12/12/2015 LARRY MURILLO DO Ot J45.998 OTHER ASTHMA 12/12/2015 LARRY MURILLO DO Ot E03. 9 HYPOTHYROIDISM, UNSPECIFIED 12/12/2015 LARRY MURILLO DO Ot E11. 9 TYPE 2 DIABETES MELLITUS WITHOUT COMPLIC 12/12/2015 LARRY MURILLO DO Ot E66. 9 OBESITY, UNSPECIFIED 12/12/2015 LARRY MURILLO DO Ot I10 ESSENTIAL (PRIMARY) HYPERTENSION 12/12/2015 LARRY MURILLO DO Ot J45.998 OTHER ASTHMA 12/12/2015 BATSHEVA LARKIN, KIYA R Ot K76. 0 FATTY (CHANGE OF) LIVER, NOT ELSEWHERE C 12/12/2015 MENDY LARKIN, LEANNA Alejandra Ot Z12.3 1 ENCNTR SCREEN MAMMOGRAM FOR MALIGNANT NE 12/12/2015 NADJA LARKIN, MARCELO Alejandra Ot M47.8 96 OTHER SPONDYLOSIS, LUMBAR REGION 12/12/2015 KIYA HERMAN MD R Ot D64. 9 ANEMIA, UNSPECIFIED 12/12/2015 NGHIA GUTIERREZ MD Ot G47. 33 OBSTRUCTIVE SLEEP APNEA (ADULT) (PEDIATR 12/12/2015 NGHIA GUTIERREZ MD Ot I10 ESSENTIAL (PRIMARY) HYPERTENSION 12/12/2015 NGHIA GUTIERREZ MD Ot J98. 4 OTHER DISORDERS OF LUNG 12/12/2015 BRENDA LARKIN, NGHIA Alejandra Ot R06. 02 SHORTNESS OF BREATH 12/12/2015 NGHIA GUTIERREZ MD Ot R07. 9 CHEST PAIN, UNSPECIFIED 12/12/2015 MARIPOSA SANCHEZ EAP CONSULTANT Ot J45.909 UNSPECIFIED ASTHMA, UNCOMPLICATED 12/12/2015 MARIPOSA SANCHEZ EAP CONSULTANT Ot J98.4 OTHER DISORDERS OF LUNG 12/12/2015 MARIPOSA SANCHEZ EAP CONSULTANT Ot R06.02 SHORTNESS OF BREATH 12/12/2015 NGHIA [...] I10 ESSENTIAL (PRIMARY) HYPERTENSION 12/27/2015 NGHIA GUTIERREZ MD, Ot I25. 10 ATHSCL HEART DISEASE OF [place] CORONARY 12/27/2015 NGHIA GUTIERREZ MD, Ot J44. 9 CHRONIC OBSTRUCTIVE PULMONARY DISEASE, U 12/27/2015 NGHIA GUTIERREZ MD, Ot M32. 9 SYSTEMIC LUPUS ERYTHEMATOSUS, UNSPECIFIE 12/27/2015 NGHIA GUTIERREZ MD Ot M79.609 PAIN IN UNSPECIFIED LIMB 12/27/2015 NGHIA GUTIERREZ MD Ot Z23 ENCOUNTER FOR IMMUNIZATION 12/27/2015 NGHIA GUTIERREZ MD Ot Z68. 41 BODY MASS INDEX (BMI) 40.0-44.9, ADULT 12/27/2015 NGHIA GUTIERREZ MD, Ot Z79.899 OTHER SHIP ENGINEER (CURRENT) DRUG THERAPY 12/27/2015 NGHIA GUTIERREZ MD, Ot G47. 33 OBSTRUCTIVE SLEEP APNEA (ADULT) (PEDIATR 12/27/2015 NGHIA GUTIERREZ MD, Ot I10 ESSENTIAL (PRIMARY) HYPERTENSION 12/27/2015 NGHIA GUTIERREZ MD Ot J98. 4 OTHER DISORDERS OF LUNG 12/27/2015 NGHIA GUTIERREZ MD Ot R06. 02 SHORTNESS OF BREATH 12/27/2015 NGHIA GUTIERREZ MD Ot R07. 9 CHEST PAIN, UNSPECIFIED 12/31/2015 DAVIN DODSON MD Ot E11.9 TYPE 2 DIABETES MELLITUS WITHOUT COMPLIC 12/31/2015 DAVIN DODSON MD, Ot I10 ESSENTIAL (PRIMARY) HYPERTENSION 12/31/2015 DAVIN DODSON MD Ot M79.662 PAIN IN LEFT LOWER LEG 12/31/2015 DAVIN DODSON MD Ot Z79.82 LONGTERM (CURRENT) USE OF ASPIRIN 12/31/2015 DAVIN DODSON MD, Ot Z79.899 OTHER LONGTERM (CURRENT) DRUG THERAPY 12/31/2015 DAVIN DODSON MD Ot Z95.5 PRESENCE OF CORONARY ANGIOPLASTY IMPLANT 01/02/2016 DAVIN DODSON MD Ot E11.9 TYPE 2 DIABETES MELLITUS WITHOUT COMPLIC 01/02/2016 DAVIN DODSON MD Ot I10 ESSENTIAL (PRIMARY) HYPERTENSION 01/02/2016 DAVIN DODSON MD Ot M79.662 PAIN IN LEFT LOWER LEG 01/02/2016 IVORY LARKIN, DAVIN Maciel Ot Z79.82 SHIP ENGINEER (CURRENT) USE OF ASPIRIN 01/02/2016 DAVIN DODSON MD Ot Z79.899 OTHER SHIP ENGINEER (CURRENT) DRUG THERAPY 01/02/2016 DAVIN DODSON MD Ot Z95.5 PRESENCE OF CORONARY ANGIOPLASTY [...] J98. 4 OTHER DISORDERS OF LUNG 01/04/2016 NGHIA GUTIERREZ MD Ot R06. 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 9 VISUAL DISTURBANCE NOS 01/11/2016 KIYA HERMAN MD R Ot 784. 0 HEADACHE 01/11/2016 Ot 285.9 ANEM IA NOS 01/11/2016 Ot 780.79 OTH MALAISE FATIGUE 01/11/2016 LEANNA BROOKE MD Ot V76.1 2 OTH SCREEN MAMMO-MALIGN NEOPLASM OF [place] 01/11/2016 LEANNA BROOKE MD Ot V76.1 2 OTH SCREEN MAMMO-MALIGN NEOPLASM OF [place] 01/11/2016 BATSHEVA LARKIN, KYIA R Ot 599. 0 URIN TRACT INFECTION NOS 01/11/2016 BATSHEVA LARKIN, KIYA R Ot 786. 2 COUGH 01/11/2016 BATSHEVA LARKIN, KIYA R Ot 786. 50 CHEST PAIN NOS 01/11/2016 KIYA HERMAN MD R Ot 784. 0 HEADACHE 01/11/2016 RAVIN HERNANDEZRE O EAP CONSULTANT Ot 250.00 DIAB JOSE WO COMPL, TYPE II OR UNSPEC TY 01/11/2016 LYNDON HERNANDEZDORE O EAP CONSULTANT Ot 401.9 HYPERTENSION NOS 01/11/2016 LYNDON HERNANDEZDORE O EAP CONSULTANT Ot 443.9 PERIPH VASCULAR DIS NOS 01/11/2016 LARRY MURILLO DO Ot E03. 9 HYPOTHYROIDISM, UNSPECIFIED 01/11/2016 LARRY MURILLO DO Ot E11. 9 TYPE 2 DIABETES MELLITUS WITHOUT COMPLIC 01/11/2016 LARRY MURILLO DO Ot E66. 9 OBESITY, UNSPECIFIED 01/11/2016 LARRY MURILLO DO Ot I10 ESSENTIAL (PRIMARY) HYPERTENSION 01/11/2016 LARRY MURILLO DO Ot J45.998 OTHER ASTHMA 01/11/2016 CHIDI DO, LARRY M Ot E03. 9 HYPOTHYROIDISM, UNSPECIFIED 01/11/2016 CHIDI DO LARRY Jose Ot E11. 9 TYPE 2 DIABETES MELLITUS WITHOUT COMPLIC 01/11/2016 CHIDI RUCKER LARRY Damon Ot E66. 9 OBESITY, UNSPECIFIED 01/11/2016 CHIDI LARRY Damon Ot I10 ESSENTIAL (PRIMARY) HYPERTENSION 01/11/2016 LARRY [...] 9 CHEST PAIN, UNSPECIFIED 01/11/2016 MARIPOSA SANCHEZ APRN Ot J45.909 UNSPECIFIED ASTHMA, UNCOMPLICATED 01/11/2016 MARIPOSA SANCHEZ APRN Ot J98.4 OTHER DISORDERS OF LUNG 01/11/2016 MARIPOSA SANCHEZ APRN Ot R06.02 SHORTNESS OF BREATH 01/11/2016 NGHIA [...] Ot I25. 10 ATHSCL HEART DISEASE OF [place] CORONARY 01/15/2016 NGHIA GUTIERREZ MD Ot J44. 9 CHRONIC OBSTRUCTIVE PULMONARY DISEASE, U 01/15/2016 NGHIA GUTIERREZ MD Ot M32. 9 SYSTEMIC LUPUS ERYTHEMATOSUS, UNSPECIFIE 01/15/2016 NGHIA GUTIERREZ MD Ot M79.609 PAIN IN UNSPECIFIED LIMB 01/15/2016 NGHIA GUTIERREZ MD Ot Z23 ENCOUNTER FOR IMMUNIZATION 01/15/2016 NGHIA GUTIERREZ MD Ot Z68. 41 BODY MASS INDEX (BMI) 40.0-44.9, ADULT 01/15/2016 NGHIA GUTIERREZ MD Ot Z79.899 OTHER SHIP ENGINEER (CURRENT) DRUG THERAPY 02/03/2016 BATSHEVA LARKIN, KIYA Wei Ot D64. 9 ANEMIA, UNSPECIFIED 03/26/2016 NGHIA GUTIERREZ MD Ot E11. 9 TYPE 2 DIABETES MELLITUS WITHOUT COMPLIC 03/26/2016 NGHIA GUTIERREZ MD Ot E78. 2 MIXED HYPERLIPIDEMIA 03/26/2016 NGHIA GUTIERREZ MD Ot I10 ESSENTIAL (PRIMARY) HYPERTENSION 03/26/2016 NGHIA GUTIERREZ MD Ot I25. 10 ATHSCL HEART DISEASE OF [place] CORONARY 03/26/2016 NGHIA GUTIERREZ MD Ot R07. 89 OTHER CHEST PAIN 03/31/2016 NGHIA GUTIERREZ MD Ot E11. 9 TYPE 2 DIABETES MELLITUS WITHOUT COMPLIC 03/31/2016 NGHIA GUTIERREZ MD Ot E78. 2 MIXED HYPERLIPIDEMIA 03/31/2016 NGHIA GUTIERREZ MD Ot I10 ESSENTIAL (PRIMARY) HYPERTENSION 03/31/2016 NGHIA GUTIERREZ MD Ot I25. 10 ATHSCL HEART DISEASE OF [place] CORONARY 03/31/2016 NGHIA GUTIERREZ MD Ot R07. 89 OTHER CHEST PAIN 04/07/2016 DAVIN DODSON MD Ot E11.9 TYPE 2 DIABETES MELLITUS WITHOUT COMPLIC 04/07/2016 DAVIN DODSON MD Ot H81.12 BENIGN PAROXYSMAL VERTIGO, LEFT EAR 04/07/2016 DAVIN DODSON MD Ot I10 ESSENTIAL (PRIMARY) HYPERTENSION 04/07/2016 DAVIN DODSON MD Ot I25.10 ATHSCL HEART DISEASE OF [place] CORONARY 04/07/2016 DAVIN DODSON MD Ot I51.7 CARDIOMEGALY 04/07/2016 DAVIN DODSON MD, Ot I65.23 OCCLUSION AND STENOSIS OF BILATERAL CAT 04/07/2016 DAVIN DODSON MD Ot J44.9 CHRONIC OBSTRUCTIVE PULMONARY DISEASE, U 04/07/2016 DAVIN DODSON MD Ot M19.011 PRIMARY OSTEOARTHRITIS, RIGHT SHOULDER 04/07/2016 DAVIN DODSON MD, Ot M19.012 PRIMARY OSTEOARTHRITIS, LEFT SHOULDER 04/07/2016 DAVIN DODSON MD Ot R11.2 NAUSEA WITH VOMITING, UNSPECIFIED 04/07/2016 DAVIN DODSON MD, Ot R42 DIZZINESS AND GIDDINESS 04/07/2016 DAVIN DODSON MD Ot Z79.02 LONGTERM (CURRENT) USE OF ANTITHROMBOTI 04/07/2016 DAVIN DODSON MD Ot Z79.4 SHIP ENGINEER (CURRENT) USE OF INSULIN 04/07/2016 DAVIN DODSON MD Ot Z79.84 SHIP ENGINEER (CURRENT) USE OF ORAL HYPOGLYC 04/07/2016 DAVIN DODSON MD, Ot Z79.899 OTHER SHIP ENGINEER (CURRENT) DRUG THERAPY 04/08/2016 DAVIN DODSON MD Ot E11.9 TYPE 2 DIABETES MELLITUS WITHOUT COMPLIC 04/08/2016 DAVIN DODSON MD Ot H81.12 BENIGN PAROXYSMAL VERTIGO, LEFT EAR 04/08/2016 DAVIN DODSON MD Ot I10 ESSENTIAL (PRIMARY) HYPERTENSION 04/08/2016 DAVIN DODSON MD Ot I25.10 ATHSCL HEART DISEASE OF [place] CORONARY 04/08/2016 DAVIN DODSON MD Ot I51.7 CARDIOMEGALY 04/08/2016 DAVIN DODSON MD Ot I65.23 OCCLUSION AND STENOSIS OF BILATERAL CAT 04/08/2016 DAVIN DODSON MD, Ot J44.9 CHRONIC OBSTRUCTIVE PULMONARY DISEASE, U 04/08/2016 DAVIN DODSON MD Ot M19.011 PRIMARY OSTEOARTHRITIS, RIGHT SHOULDER 04/08/2016 DAVIN DODSON MD Ot M19.012 PRIMARY OSTEOARTHRITIS, LEFT SHOULDER 04/08/2016 DAVIN DODSON MD Ot R11.2 NAUSEA WITH VOMITING, UNSPECIFIED 04/08/2016 DAVIN DODSON MD Ot R42 DIZZINESS AND GIDDINESS 04/08/2016 DAVIN DODSON MD Ot Z79.02 LONGTERM (CURRENT) USE OF ANTITHROMBOTI 04/08/2016 DAVIN DODSON MD Ot Z79.4 LONGTERM (CURRENT) USE OF INSULIN 04/08/2016 DAVIN DODSON MD Ot Z79.84 LONGTERM (CURRENT) USE OF ORAL HYPOGLYC 04/08/2016 DAVIN DODSON MD, Ot Z79.899 OTHER SHIP ENGINEER (CURRENT) DRUG THERAPY 04/15/2016 NGHIA GUTIERREZ MD Ot E11. 9 TYPE 2 DIABETES MELLITUS WITHOUT COMPLIC 04/15/2016 NGHIA GUTIERREZ MD Ot E78. 2 MIXED HYPERLIPIDEMIA 04/15/2016 NGHIA GUTIERREZ MD Ot I10 ESSENTIAL (PRIMARY) HYPERTENSION 04/15/2016 NGHIA GUTIERREZ MD Ot I25. 10 ATHSCL HEART DISEASE OF [place] CORONARY 04/15/2016 NGHIA GUTIERREZ MD Ot R07. [...] Ot I25. 10 ATHSCL HEART DISEASE OF [place] CORONARY 04/18/2016 NGHIA GUTIERREZ MD Ot R07. 89 OTHER CHEST PAIN 04/22/2016 SAM HEALY MD Ot I65. 23 OCCLUSION AND STENOSIS OF BILATERAL CAT 04/22/2016 SAM HEALY MD Ot Z01.810 ENCOUNTER FOR PREPROCEDURAL CARDIOVASCUL 04/22/2016 SAM HEALY MD Ot Z01.811 ENCOUNTER FOR PREPROCEDURAL RESPIRATORY 04/22/2016 SAM HEALY MD Ot Z01.812 ENCOUNTER FOR PREPROCEDURAL LABORATORY E 04/29/2016 NGHIA GUTIERREZ MD Ot E11. 9 TYPE 2 DIABETES MELLITUS WITHOUT COMPLIC 04/29/2016 NGHIA GUTIERREZ MD Ot E78. 2 MIXED HYPERLIPIDEMIA 04/29/2016 NGHIA GUTIERREZ MD Ot I10 ESSENTIAL (PRIMARY) HYPERTENSION 04/29/2016 NGHIA GUTIERREZ MD Ot I25. 10 ATHSCL HEART DISEASE OF [place] CORONARY 04/29/2016 NGHIA GUTIERREZ MD Ot R07. [...] AND STENOSIS OF BILATERAL CAT 05/13/2016 SAM HEAYL MD Ot Z01.810 ENCOUNTER FOR PREPROCEDURAL CARDIOVASCUL 05/13/2016 SAM HEALY MD Ot Z01.811 ENCOUNTER FOR PREPROCEDURAL RESPIRATORY 05/13/2016 SAM HEALY MD Ot Z01.812 ENCOUNTER FOR PREPROCEDURAL LABORATORY E 05/15/2016 WHIT ARRINGTON MD E Ot B00.2 HERPESVIRAL GINGIVOSTOMATITIS AND PHARYN 05/15/2016 WHIT ARRINGTON MD E Ot E03.9 HYPOTHYROIDISM, UNSPECIFIED 05/15/2016 WHIT ARRINGTON MD E Ot E11.4 2 TYPE 2 DIABETES MELLITUS WITH DIABETIC P 05/15/2016 WHIT ARRINGTON MD E Ot E66.9 OBESITY, UNSPECIFIED 05/15/2016 WHIT ARRINGTON MD E Ot E87.7 0 FLUID OVERLOAD, UNSPECIFIED 05/15/2016 WHIT ARRINGTON MD E Ot G47.0 0 INSOMNIA, UNSPECIFIED 05/15/2016 BHAVIK ARRINGTON MDIC E Ot I10 ESSENTIAL (PRIMARY) HYPERTENSION 05/15/2016 WHIT ARRINGTON MD E Ot I25.1 0 ATHSCL HEART DISEASE OF [place] CORONARY 05/15/2016 WHIT ARRINGTON MD E Ot I42.9 CARDIOMYOPATHY, UNSPECIFIED 05/15/2016 WHIT ARRINGTON MD E Ot J18.9 PNEUMONIA, UNSPECIFIED ORGANISM 05/15/2016 WHIT ARRINGTON MD E Ot J44.9 CHRONIC OBSTRUCTIVE PULMONARY DISEASE, U 05/15/2016 WHIT ARRINGTON MD E Ot K21.9 GASTRO-ESOPHAGEAL REFLUX DISEASE WITHOUT 05/15/2016 WHIT ARRINGTON MD E Ot K59.0 0 CONSTIPATION, UNSPECIFIED 05/15/2016 WHIT ARRINGTON MD E Ot N28.9 DISORDER OF KIDNEY AND URETER, UNSPECIFI 05/15/2016 WHIT ARRINGTON MD E Ot N39.0 URINARY TRACT INFECTION, SITE NOT SPECIF 05/15/2016 WHIT ARRINGTON MD E Ot R06.8 9 OTHER ABNORMALITIES OF BREATHING 05/15/2016 WHIT ARRINGTON MD E Ot R47.1 DYSARTHRIA AND ANARTHRIA 05/15/2016 WHIT ARRINGTON MD, Ot Z48.8 12 ENCNTR FOR SURGICAL AFTCR FOLLOWING SURG 05/15/2016 WHIT ARRINGTON MD, Ot Z68.4 1 BODY MASS INDEX (BMI) 40.0-44.9, ADULT 05/15/2016 WHIT ARRINGTON MD, Ot Z79.4 SHIP ENGINEER (CURRENT) USE OF INSULIN 05/15/2016 WHIT ARRINGTON MD, Ot Z95.5 PRESENCE OF CORONARY ANGIOPLASTY [...] Ot R06. 02 SHORTNESS OF BREATH 10/16/2016 BRENDA MD, BASHAR J Ot R07. 9 CHEST PAIN, UNSPECIFIED 11/05/2016 BATSHEVA LARKIN, KIAY R Ot R10. 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 9 VISUAL DISTURBANCE NOS 06/17/2017 KIYA HERMAN MD R Ot 784. 0 HEADACHE 06/17/2017 Ot [...] MD R Ot 786. 2 COUGH 06/17/2017 KIYA HERMAN MD R Ot 786. 50 CHEST PAIN NOS 06/17/2017 BATSHEVA LARKIN, KIYA R Ot 784. 0 HEADACHE 06/17/2017 NWAGWU, ISIDORE O EAP CONSULTANT Ot 250.00 DIAB JOSE WO COMPL, TYPE II OR UNSPEC TY 06/17/2017 NWAGWU, ISIDORE O EAP CONSULTANT Ot 401.9 HYPERTENSION NOS 06/17/2017 NWAGWU, ISIDORE O EAP CONSULTANT Ot 443.9 PERIPH VASCULAR DIS NOS 06/17/2017 LARRY MURILLO DO M Ot E03. 9 HYPOTHYROIDISM, UNSPECIFIED 06/17/2017 LARRY MURILLO DO M Ot E11. 9 TYPE 2 DIABETES MELLITUS WITHOUT COMPLIC 06/17/2017 LARRY MURILLO DO Ot E66. 9 OBESITY, UNSPECIFIED 06/17/2017 GAMALIEL MURILLO DOSON M Ot I10 ESSENTIAL (PRIMARY) HYPERTENSION 06/17/2017 LARRY MURILLO DO M Ot J45.998 OTHER ASTHMA 06/17/2017 LARRY MURILLO DO Ot E03. 9 HYPOTHYROIDISM, UNSPECIFIED 06/17/2017 LARRY MURILLO DO M Ot E11. 9 TYPE 2 DIABETES MELLITUS WITHOUT COMPLIC 06/17/2017 LARRY MURILLO DO M Ot E66. 9 OBESITY, UNSPECIFIED 06/17/2017 GAMALIEL MURILLO DOSON M Ot I10 ESSENTIAL (PRIMARY) HYPERTENSION 06/17/2017 GAMALIEL MURILLO DOSON M Ot J45.998 OTHER ASTHMA 06/17/2017 BATSHEVA LARKIN, [...] 9 CHEST PAIN, UNSPECIFIED 06/17/2017 MARIPOSA SANCHEZ EAP CONSULTANT Ot J45.909 UNSPECIFIED ASTHMA, UNCOMPLICATED 06/17/2017 MARIPOSA SANCHEZ EAP CONSULTANT Ot J98.4 OTHER DISORDERS OF LUNG 06/17/2017 MARIPOSA SANCHEZ EAP CONSULTANT Ot R06.02 SHORTNESS OF BREATH 06/17/2017 BATSHEVA LARKIN, KIYA Wei Ot D64. 9 ANEMIA, UNSPECIFIED 06/17/2017 NGHIA GUTIERREZ MD Ot E11. 9 TYPE 2 DIABETES MELLITUS WITHOUT COMPLIC 06/17/2017 NGHIA GUTIERREZ MD Ot E78. 2 MIXED HYPERLIPIDEMIA 06/17/2017 NGHIA GUTIERREZ MD Ot I10 ESSENTIAL (PRIMARY) HYPERTENSION 06/17/2017 NGHIA GUTIERREZ MD Ot I25. 10 ATHSCL HEART DISEASE OF [place] CORONARY 06/17/2017 NGHIA GUTIERREZ MD Ot R07. 89 OTHER CHEST PAIN 06/17/2017 NGHIA GUTIERREZ MD Ot E11. 9 TYPE 2 DIABETES MELLITUS WITHOUT COMPLIC 06/17/2017 NGHIA GUTIERREZ MD Ot E78. 2 MIXED HYPERLIPIDEMIA 06/17/2017 NGHIA GUTIERREZ MD Ot I10 ESSENTIAL (PRIMARY) HYPERTENSION 06/17/2017 NGHIA GUTIERREZ MD Ot I25. 10 ATHSCL HEART DISEASE OF [place] CORONARY 06/17/2017 NGHIA GUTIERREZ MD Ot R07. 89 OTHER CHEST PAIN 06/17/2017 SAM HEALY MD Ot I65. 23 OCCLUSION AND STENOSIS OF BILATERAL CAT 06/17/2017 SAM HEALY MD Ot Z01.810 ENCOUNTER FOR PREPROCEDURAL CARDIOVASCUL 06/17/2017 SAM HEALY MD Ot Z01.811 ENCOUNTER FOR PREPROCEDURAL RESPIRATORY 06/17/2017 SAM HEALY MD Ot Z01.812 ENCOUNTER FOR PREPROCEDURAL LABORATORY E 06/17/2017 BATSHEVA LARKIN, KIYA R Ot J18. 9 PNEUMONIA, UNSPECIFIED ORGANISM 06/17/2017 LEANNA BROOKE MD Ot Z12.3 1 ENCNTR SCREEN MAMMOGRAM FOR MALIGNANT NE 06/17/2017 KIYA HERMAN MD R Ot R10. 2 PELVIC AND PERINEAL PAIN 06/17/2017 KIYA HERMAN MD R Ot I51. 7 CARDIOMEGALY 06/17/2017 KIYA HERMAN MD R Ot R07. 81 PLEURODYNIA 06/17/2017 KIYA HERMAN MD R Ot R93. 8 ABNORMAL FINDINGS ON DIAGNOSTIC IMAGING 06/17/2017 KIYA HERMAN MD R Ot M79.662 PAIN IN LEFT LOWER LEG 06/18/2017 KIYA HERMAN MD R Ot M79.662 PAIN IN LEFT LOWER LEG 06/18/2017 Ot V76.12 OTH SCREEN MAMMO- MALIGN NEOPLASM OF [place] 06/18/2017 Ot 571.8 HEAD OF PRODUCT JO[place]QUINA LIVER DIS NEC 06/18/2017 Ot 789.09 ABD OMINAL PAIN, OTHER SPECIFIED SITE 06/18/2017 GHANSHYAM LARKIN, Justyn BADILLO Ot 595.2 CHRONIC CYSTITIS NEC 06/18/2017 Justyn MORRISSEY MD Ot 599.0 URIN TRACT INFECTION NOS 06/18/2017 Justyn MORRISSEY MD Ot 595.9 CYSTITIS NOS 06/18/2017 MARY LARKIN, MARQUITA Ot V72.84 EXAM PRE-OPERATIVE NOS 06/18/2017 KIYA HERAMN MD R Ot 368. 9 VISUAL DISTURBANCE [...] 599. 0 URIN TRACT INFECTION NOS 06/18/2017 KIYA HERMAN MD Ot 786. 2 COUGH 06/18/2017 BATSHEVA LARKIN, KIYA R Ot 786. 50 CHEST PAIN NOS 06/18/2017 BATSHEVA LARKIN, KIYA R Ot 784. 0 HEADACHE 06/18/2017 NWAGWU, ISIDORE O EAP CONSULTANT Ot 250.00 DIAB JOSE WO COMPL, TYPE II OR UNSPEC TY 06/18/2017 NWAGWU, ISIDORE O EAP CONSULTANT Ot 401.9 HYPERTENSION NOS 06/18/2017 NWAGWU, ISIDORE O EAP CONSULTANT Ot 443.9 PERIPH VASCULAR DIS NOS 06/18/2017 LARRY MURILLO DO Ot E03. 9 HYPOTHYROIDISM, UNSPECIFIED 06/18/2017 LARRY MURILLO DO Ot E11. 9 TYPE 2 DIABETES MELLITUS WITHOUT COMPLIC 06/18/2017 LARRY MURILLO DO Ot E66. 9 OBESITY, UNSPECIFIED 06/18/2017 GAMALIEL MURILLO DOSON M Ot I10 ESSENTIAL (PRIMARY) HYPERTENSION 06/18/2017 LARRY MURILLO DO Ot J45.998 OTHER ASTHMA 06/18/2017 LARRY MURILLO DO Ot E03. 9 HYPOTHYROIDISM, UNSPECIFIED 06/18/2017 LARRY MURILLO DO Ot E11. 9 TYPE 2 DIABETES MELLITUS WITHOUT COMPLIC 06/18/2017 LARRY MURILLO DO Ot E66. 9 OBESITY, UNSPECIFIED 06/18/2017 GAMALIEL MURILLO DOSON M Ot I10 ESSENTIAL (PRIMARY) HYPERTENSION 06/18/2017 LARRY MURILLO DO M Ot J45.998 OTHER ASTHMA 06/18/2017 BATSHEVA LARKIN, [...] 9 CHEST PAIN, UNSPECIFIED 06/18/2017 MARIPOSA SANCHEZ EAP CONSULTANT Ot J45.909 UNSPECIFIED ASTHMA, UNCOMPLICATED 06/18/2017 MARIPOSA SANCHEZ EAP CONSULTANT Ot J98.4 OTHER DISORDERS OF LUNG 06/18/2017 MARIPOSA SANCHEZ EAP CONSULTANT Ot R06.02 SHORTNESS OF BREATH 06/18/2017 BATSHEVA LARKIN, KIYA Wei Ot D64. 9 ANEMIA, UNSPECIFIED 06/18/2017 NGHIA GUTIERREZ MD Ot E11. 9 TYPE 2 DIABETES MELLITUS WITHOUT COMPLIC 06/18/2017 NGHIA GUTIERREZ MD Ot E78. 2 MIXED HYPERLIPIDEMIA 06/18/2017 NGHIA GUTIERREZ MD Ot I10 ESSENTIAL (PRIMARY) HYPERTENSION 06/18/2017 NGHIA GUTIERREZ MD Ot I25. 10 ATHSCL HEART DISEASE OF [place] CORONARY 06/18/2017 NGHIA GUTIERREZ MD Ot R07. 89 OTHER CHEST PAIN 06/18/2017 NGHIA GUTIERREZ MD Ot E11. 9 TYPE 2 DIABETES MELLITUS WITHOUT COMPLIC 06/18/2017 NGHIA GUTIERREZ MD Ot E78. 2 MIXED HYPERLIPIDEMIA 06/18/2017 NGHIA GUTIERREZ MD Ot I10 ESSENTIAL (PRIMARY) HYPERTENSION 06/18/2017 NGHIA GUTIERREZ MD Ot I25. 10 ATHSCL HEART DISEASE OF [place] CORONARY 06/18/2017 NGHIA GUTIERREZ MD Ot R07. 89 OTHER CHEST PAIN 06/18/2017 SAM HEALY MD Ot I65. 23 OCCLUSION AND STENOSIS OF BILATERAL CAT 06/18/2017 SAM HEALY MD Ot Z01.810 ENCOUNTER FOR PREPROCEDURAL CARDIOVASCUL 06/18/2017 SAM HEALY MD Ot Z01.811 ENCOUNTER FOR PREPROCEDURAL RESPIRATORY 06/18/2017 SAM HEALY MD Ot Z01.812 ENCOUNTER FOR PREPROCEDURAL LABORATORY E 06/18/2017 KIYA HERMAN MD Ot J18. 9 PNEUMONIA, UNSPECIFIED ORGANISM 06/18/2017 LEANNA BROOKE MD Ot Z12.3 1 ENCNTR SCREEN MAMMOGRAM FOR MALIGNANT NE 06/18/2017 KIYA HERMAN MD R Ot R10. 2 PELVIC AND PERINEAL PAIN 06/18/2017 KIYA HERMAN MD R Ot I51. 7 CARDIOMEGALY 06/18/2017 KIYA HERMAN MD Ot R07. 81 PLEURODYNIA 06/18/2017 KIYA HERMAN MD Ot R93. 8 ABNORMAL FINDINGS ON DIAGNOSTIC IMAGING 06/18/2017 KIYA HERMAN MD R Ot M79.662 PAIN IN LEFT LOWER LEG 06/19/2017 Ot V76.12 OTH SCREEN MAMMO- MALIGN NEOPLASM OF [place] 06/19/2017 Ot 571.8 HEAD OF PRODUCT [place] LIVER DIS NEC 06/19/2017 Ot 789.09 ABD OMINAL PAIN, OTHER SPECIFIED SITE 06/19/2017 GHANSHYAM LARKIN, Justyn BADILLO Ot 595.2 CHRONIC CYSTITIS NEC 06/19/2017 Justyn MORRISSEY MD Ot 599.0 URIN TRACT INFECTION NOS 06/19/2017 Justyn MORRISSEY MD Ot 595.9 CYSTITIS NOS 06/19/2017 MARY LARKIN, MARQUITA Ot V72.84 EXAM PRE-OPERATIVE NOS 06/19/2017 KIYA HERMAN MD R Ot 368. 9 VISUAL DISTURBANCE NOS 06/19/2017 KIYA HERMAN MD R Ot 784. 0 HEADACHE 06/19/2017 Ot 285.9 ANEM IA NOS 06/19/2017 Ot 780.79 OTH MALAISE FATIGUE 06/19/2017 LEANNA BROOKE MD Ot V76.1 2 OTH SCREEN MAMMO-MALIGN NEOPLASM OF [place] 06/19/2017 LEANNA BROOKE MD Ot V76.1 2 OTH SCREEN MAMMO-MALIGN NEOPLASM OF [place] 06/19/2017 KIYA HERMAN MD R Ot 599. 0 URIN TRACT INFECTION NOS 06/19/2017 KYIA HERMAN MD R Ot 786. 2 COUGH 06/19/2017 BATSHEVA LARKIN, KIYA R Ot 786. 50 CHEST PAIN NOS 06/19/2017 BATSHEVA LARKIN, KIYA Wei Ot 784. 0 HEADACHE 06/19/2017 NWAGWU, ISIDORE O EAP CONSULTANT Ot 250.00 DIAB JOSE WO COMPL, TYPE II OR UNSPEC TY 06/19/2017 NWAGWU, ISIDORE O EAP CONSULTANT Ot 401.9 HYPERTENSION NOS 06/19/2017 NWAGWU, ISIDORE O EAP CONSULTANT Ot 443.9 PERIPH VASCULAR DIS NOS 06/19/2017 LARRY MURILLO DO Ot E03. 9 HYPOTHYROIDISM, UNSPECIFIED 06/19/2017 LARRY MURILLO DO Ot E11. 9 TYPE 2 DIABETES MELLITUS WITHOUT COMPLIC 06/19/2017 LARRY MURILLO DO Ot E66. 9 OBESITY, UNSPECIFIED 06/19/2017 LARRY MURILLO DO Ot I10 ESSENTIAL (PRIMARY) HYPERTENSION 06/19/2017 LARRY MURILLO DO Ot J45.998 OTHER ASTHMA 06/19/2017 LARRY MURILLO DO Ot E03. 9 HYPOTHYROIDISM, UNSPECIFIED 06/19/2017 LARRY MURILLO DO Ot E11. 9 TYPE 2 DIABETES MELLITUS WITHOUT COMPLIC 06/19/2017 LARRY MURILLO DO Ot E66. 9 OBESITY, UNSPECIFIED 06/19/2017 LARRY MURILLO DO Ot I10 ESSENTIAL (PRIMARY) HYPERTENSION 06/19/2017 LARRY MURILLO DO Ot J45.998 OTHER ASTHMA 06/19/2017 BATSHEVA LARKIN, KIYA R Ot K76. 0 FATTY (CHANGE OF) LIVER, NOT ELSEWHERE C 06/19/2017 MENDY LARKIN, LEANNA J Ot Z12.3 1 ENCNTR SCREEN MAMMOGRAM FOR MALIGNANT NE 06/19/2017 NADJA LARKIN, MARCELO J Ot M47.8 96 OTHER SPONDYLOSIS, LUMBAR REGION 06/19/2017 BRENDA LARKIN, NGHIA Alejandra Ot G47. 33 OBSTRUCTIVE SLEEP APNEA (ADULT) (PEDIATR 06/19/2017 NGHIA GUTIERREZ MD Ot I10 ESSENTIAL (PRIMARY) HYPERTENSION 06/19/2017 BRENDA LARKIN, NGHIA Alejandra Ot J98. 4 OTHER DISORDERS OF LUNG 06/19/2017 BRENDA LARKIN, NGHIA Alejandra Ot R06. 02 SHORTNESS OF BREATH 06/19/2017 [...] 9 CHEST PAIN, UNSPECIFIED 06/19/2017 MARIPOSA SANCHEZ EAP CONSULTANT Ot J45.909 UNSPECIFIED ASTHMA, UNCOMPLICATED 06/19/2017 MARIPOSA SANCHEZ EAP CONSULTANT Ot J98.4 OTHER DISORDERS OF LUNG 06/19/2017 MARIPOSA SANCHEZ EAP CONSULTANT Ot R06.02 SHORTNESS OF BREATH 06/19/2017 BATSHEVA LARKIN, KIYA Wei Ot D64. 9 ANEMIA, UNSPECIFIED 06/19/2017 NGHIA GUTIERREZ MD Ot E11. 9 TYPE 2 DIABETES MELLITUS WITHOUT COMPLIC 06/19/2017 NGHIA GUTIERREZ MD Ot E78. 2 MIXED HYPERLIPIDEMIA 06/19/2017 NGHIA GUTIERREZ MD Ot I10 ESSENTIAL (PRIMARY) HYPERTENSION 06/19/2017 NGHIA GUTIERREZ MD Ot I25. 10 ATHSCL HEART DISEASE OF [place] CORONARY 06/19/2017 NGHIA GUTIERREZ MD Ot R07. 89 OTHER CHEST PAIN 06/19/2017 NGHIA GUTIERREZ MD Ot E11. 9 TYPE 2 DIABETES MELLITUS WITHOUT COMPLIC 06/19/2017 NGHIA GUTIERREZ MD Ot E78. 2 MIXED HYPERLIPIDEMIA 06/19/2017 NGHIA GUTIERREZ MD Ot I10 ESSENTIAL (PRIMARY) HYPERTENSION 06/19/2017 NGHIA GUTIERREZ MD Ot I25. 10 ATHSCL HEART DISEASE OF [place] CORONARY 06/19/2017 NGHIA GUTIERREZ MD Ot R07. 89 OTHER CHEST PAIN 06/19/2017 ASM HEALY MD Ot I65. 23 OCCLUSION AND STENOSIS OF BILATERAL CAT 06/19/2017 SAM HEALY MD Ot Z01.810 ENCOUNTER FOR PREPROCEDURAL CARDIOVASCUL 06/19/2017 SAM HEALY MD Ot Z01.811 ENCOUNTER FOR PREPROCEDURAL RESPIRATORY 06/19/2017 MONET LARKIN, SAM Ot Z01.812 ENCOUNTER FOR PREPROCEDURAL LABORATORY E 06/19/2017 BATSHEVA LARKIN, KIYA R Ot J18. 9 PNEUMONIA, UNSPECIFIED ORGANISM 06/19/2017 MENDY LARKIN, LEANNA Alejandra Ot Z12.3 1 ENCNTR SCREEN MAMMOGRAM FOR MALIGNANT NE 06/19/2017 KIYA HERMAN MD R Ot R10. 2 PELVIC AND PERINEAL PAIN 06/19/2017 KIYA HERMAN MD R Ot I51. 7 CARDIOMEGALY 06/19/2017 KIYA HERMAN MD R Ot R07. 81 PLEURODYNIA 06/19/2017 KIYA HERMAN MD R Ot R93. 8 ABNORMAL FINDINGS ON DIAGNOSTIC IMAGING 06/19/2017 KIYA HERMAN MD R Ot M79.662 PAIN IN LEFT LOWER LEG 06/22/2017 KIYA HERMAN MD R Ot M79. 89 OTHER SPECIFIED SOFT TISSUE DISORDERS 06/22/2017 HERNANDEZ HERMAN MDYD R Ot M79. 89 OTHER SPECIFIED SOFT TISSUE DISORDERS 06/25/2017 KIYA HERMAN MD R Ot M79. 89 OTHER SPECIFIED SOFT TISSUE DISORDERS 07/10/2017 KIYA HERMAN MD R Ot M79. 89 OTHER SPECIFIED SOFT TISSUE DISORDERS 07/15/2017 BATSHEVA LARKIN KIYA R Ot M79. 89 OTHER SPECIFIED SOFT TISSUE DISORDERS 07/16/2017 KIYA HERMAN MD R Ot Z29. 8 ENCOUNTER FOR OTHER SPECIFIED PROPHYLACT 08/12/2017 KIYA HERMAN MD R Ot Z29. 8 ENCOUNTER FOR OTHER SPECIFIED PROPHYLACT 09/16/2017 BATSHEVA LARKIN KIYA R Ot Z29. 8 ENCOUNTER FOR [...] Ot I25.10 ATH SCL HEART DISEASE OF [place] CORONARY 10/13/2017 Ot I42.9 CARD IOMYOPATHY, UNSPECIFIED 10/13/2017 Ot J44.1 HEAD OF PRODUCT [place] OBSTRUCTIVE PULMONARY DISEASE W 10/13/2017 Ot [...] 10/13/[address] [facility] NON-INSTITUT (PRIVATE 10/13/2017 Ot Z79.02 TIFFANI G TERM (CURRENT) USE OF ANTITHROMBOTI 10/13/2017 Ot Z79.4 LONGTERM (CURRENT) USE OF INSULIN 10/13/2017 Ot Z79.51 [...] CORONARY ANGIOPLASTY IMPLANT 10/27/2017 Ot I82.432 AC SAEED EMBOLISM AND THROMBOSIS OF LEFT PO 10/27/2017 Ot R00.2 PALP ITATIONS 10/29/2017 MAGDY ZIEGLER EAP CONSULTANT Ot E03 .9 HYPOTHYROIDISM, UNSPECIFIED 10/29/2017 MAGDY [...] APRN Ot I25.10 ATHSCL HEART DISEASE OF [place] CORONARY 10/29/2017 MAGDY ZIEGLER APRN Ot I42 .9 CARDIOMYOPATHY, UNSPECIFIED 10/29/2017 MAGDY ZIEGLER APRN Ot J44 .9 CHRONIC OBSTRUCTIVE PULMONARY DISEASE, U 10/29/2017 MAGDY ZIEGLER APRN Ot R10.13 EPIGASTRIC PAIN 10/29/2017 MAGDY ZIEGLER APRN Ot Z79.02 SHIP ENGINEER (CURRENT) USE OF ANTITHROMBOTI 10/29/2017 MAGDY ZIEGLER APRN Ot Z79 .4 LONGTERM (CURRENT) USE OF INSULIN 10/29/2017 MAGDY ZIEGLER APRN Ot Z79.51 SHIP ENGINEER (CURRENT) USE OF INHALED STERO 10/29/2017 MAGDY ZIEGLER APRN Ot Z79.52 SHIP ENGINEER (CURRENT) USE OF SYSTEMIC STER 10/29/2017 MAGDY ZIEGLER APRN Ot Z79.82 SHIP ENGINEER (CURRENT) USE OF ASPIRIN 10/29/2017 MAGDY ZIEGLER [...] APRN Ot Z88 .8 ALLERGY STATUS TO [facility] DRUG/MEDS/BIOL SUB 10/29/2017 MAGDY ZIEGLER APRN Ot Z90.89 ACQUIRED ABSENCE OF OTHER ORGANS 10/29/2017 MAGDY ZIEGLER APRN Ot Z95 .5 PRESENCE OF CORONARY ANGIOPLASTY IMPLANT 10/30/2017 Ot I82.432 AC SAEED EMBOLISM AND THROMBOSIS OF LEFT PO 10/30/2017 [...] F41 .9 ANXIETY DISORDER, UNSPECIFIED 11/02/2017 MAGDY ZIEGLER APRN Ot G47.30 SLEEP APNEA, UNSPECIFIED 11/02/2017 MAGDY ZIEGLER APRN Ot I10 ESSENTIAL (PRIMARY) HYPERTENSION 11/02/2017 MAGDY ZIEGLER APRN Ot I25.10 ATHSCL HEART DISEASE OF [place] CORONARY 11/02/2017 MAGDY ZIEGLER APRN Ot I42 .9 CARDIOMYOPATHY, UNSPECIFIED 11/02/2017 MAGDY ZIEGLER APRN Ot J44 .9 CHRONIC OBSTRUCTIVE PULMONARY DISEASE, U 11/02/2017 MAGDY ZIEGLER APRN Ot R10.13 EPIGASTRIC PAIN 11/02/2017 MAGDY ZIEGLER APRN Ot Z79.02 SHIP ENGINEER (CURRENT) USE OF ANTITHROMBOTI 11/02/2017 MAGDY ZIEGLER APRN Ot Z79 .4 SHIP ENGINEER (CURRENT) USE OF INSULIN 11/02/2017 MAGDY ZIEGLER APRN Ot Z79.51 LONGTERM (CURRENT) USE OF INHALED STERO 11/02/2017 MAGDY ZIEGLER APRN Ot Z79.52 LONGTERM (CURRENT) USE OF SYSTEMIC STER 11/02/2017 MAGDY ZIEGLER APRN Ot Z79.82 LONGTERM (CURRENT) USE OF ASPIRIN 11/02/2017 MAGDY ZIEGLER [...] W DIABETIC PERIPHERAL AN 11/04/2017 LARRY MURILLO DO Ot E66. 01 MORBID (SEVERE) OBESITY DUE TO EXCESS CA 11/04/2017 LARRY MURILLO DO Ot E78. 00 PURE HYPERCHOLESTEROLEMIA, UNSPECIFIED 11/04/2017 LARRY MURILLO DO, Ot E89. 0 POSTPROCEDURAL HYPOTHYROIDISM 11/04/2017 LARRY MURILLO DO, Ot F32. 9 MAJOR DEPRESSIVE DISORDER, SINGLE EPISOD 11/04/2017 LARRY MURILLO DO, Ot F41. 9 ANXIETY DISORDER, UNSPECIFIED 11/04/2017 LARRY MURILLO DO, Ot G47. 30 SLEEP APNEA, UNSPECIFIED 11/04/2017 LARRY MURILLO DO Ot I10 ESSENTIAL (PRIMARY) HYPERTENSION 11/04/2017 LARRY MURILLO DO, Ot I13. 0 HYP HRT CHR KDNY DIS W HRT FAIL AND ST 11/04/2017 LARRY MURILLO DO, Ot I25. 10 ATHSCL HEART DISEASE OF [place] CORONARY 11/04/2017 LARRY MURILLO DO Ot I34. 0 NONRHEUMATIC MITRAL (VALVE) INSUFFICIENC 11/04/2017 LARRY MURILLO DO Ot I42. 9 CARDIOMYOPATHY, UNSPECIFIED 11/04/2017 LARRY MURILLO DO, Ot I50. 30 UNSPECIFIED DIASTOLIC (CONGESTIVE) HEART 11/04/2017 LARRY MURILLO DO, Ot I50. 31 ACUTE DIASTOLIC (CONGESTIVE) HEART FAILU 11/04/2017 LARRY MURILLO DO, Ot I65. 29 OCCLUSION AND STENOSIS OF UNSPECIFIED CA 11/04/2017 LARRY MURILLO DO Ot I87. 2 VENOUS INSUFFICIENCY (CHRONIC) (PERIPHER 11/04/2017 LARRY MURILLO DO, Ot J44. 1 CHRONIC OBSTRUCTIVE PULMONARY DISEASE W 11/04/2017 LARRY MURILLO DO Ot M19. 91 PRIMARY OSTEOARTHRITIS, UNSPECIFIED SITE 11/04/2017 LARRY MURILLO DO, Ot M32. 9 SYSTEMIC LUPUS ERYTHEMATOSUS, UNSPECIFIE 11/04/2017 LARRY MURILLO DO, Ot M41. 9 SCOLIOSIS, UNSPECIFIED 11/04/2017 LARRY MURILLO DO, Ot M48. 00 SPINAL STENOSIS, SITE UNSPECIFIED 11/04/2017 LARRY MURILLO DO, Ot M79.661 PAIN IN RIGHT LOWER LEG 11/04/2017 LARRY MURILLO DO, Ot M79.662 PAIN IN LEFT LOWER LEG [...] 11/04/2017 LARRY MURILLO DO Ot Z79. 4 SHIP ENGINEER (CURRENT) USE OF INSULIN 11/04/2017 LARRY MURILLO [...] APRN Ot I25.10 ATHSCL HEART DISEASE OF [place] CORONARY 11/05/2017 MAGDY ZIEGLER APRN Ot I42 .9 CARDIOMYOPATHY, UNSPECIFIED 11/05/2017 MAGDY ZIEGLER APRN Ot J44 .9 CHRONIC OBSTRUCTIVE PULMONARY DISEASE, U 11/05/2017 MAGDY ZIEGLER APRN Ot R10.13 EPIGASTRIC PAIN 11/05/2017 MAGDY ZIEGLER APRN Ot Z79.02 LONGTERM (CURRENT) USE OF ANTITHROMBOTI 11/05/2017 MAGDY ZIEGLER APRN Ot Z79 .4 SHIP ENGINEER (CURRENT) USE OF INSULIN 11/05/2017 MAGDY ZIEGLER APRN Ot Z79.51 LONGTERM (CURRENT) USE OF INHALED STERO 11/05/2017 MAGDY ZIEGLER APRN Ot Z79.52 SHIP ENGINEER (CURRENT) USE OF SYSTEMIC STER 11/05/2017 MAGDY ZIEGLER APRN Ot Z79.82 SHIP ENGINEER (CURRENT) USE OF ASPIRIN 11/05/2017 MAGDY ZIEGLER [...] APRN Ot Z88 .8 ALLERGY STATUS TO [facility] DRUG/MEDS/BIOL SUB 11/05/2017 MAGDY ZIEGLER APRN Ot [...] Ot I25. 10 ATHSCL HEART DISEASE OF [place] CORONARY 11/10/2017 MARILY PANDEY DO Ot I42. [...] 11/10/2017 MARILY PANDEY DO Ot Z79. 4 SHIP ENGINEER (CURRENT) USE OF INSULIN 11/10/2017 MARILY PANDEY DO Ot Z79. 82 SHIP ENGINEER (CURRENT) USE OF ASPIRIN 11/10/2017 MARILY PANDEY [...] Ot I25. 10 ATHSCL HEART DISEASE OF [place] CORONARY 11/12/2017 MARILY PANDEY DO Ot I42. [...] 11/12/2017 MARILY PANDEY DO Ot Z79. 4 SHIP ENGINEER (CURRENT) USE OF INSULIN 11/12/2017 MARILY PANDEY DO Ot Z79. 82 LONGTERM (CURRENT) USE OF ASPIRIN 11/12/2017 MARILY PANDEY DO Ot Z95. 5 PRESENCE OF CORONARY ANGIOPLASTY IMPLANT 12/03/2017 ABI PANG APRN Ot N63.20 UNSPECIFIED LUMP IN THE LEFT BREAST, UNS 12/03/2017 ABI PANG APRN Ot N64.4 MASTODYNIA 12/06/2017 NORA ESCAMILLA Ot D50.9 IRON DEFICIENCY ANEMIA, UNSPECIFIED 12/06/2017 NORA ESCAMILLA Ot E03.9 HYPOTHYROIDISM, UNSPECIFIED 12/06/2017 NORA ESCAMILLA Ot 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 12/06/2017 NORA ESCAMILLA Ot G47.33 OBSTRUCTIVE SLEEP APNEA (ADULT) (PEDIATR 12/06/2017 NORA ESCAMILLA Ot I12.9 HYPERTENSIVE CHRONIC KIDNEY DISEASE W ST 12/06/2017 NORA ESCAMILLA Ot I25.10 ATHSCL HEART DISEASE OF [place] CORONARY 12/06/2017 NORA ESCAMILLA Ot J45.909 UNSPECIFIED ASTHMA, UNCOMPLICATED 12/06/2017 FRANCINE, BOBAN N Ot K25.9 GASTRIC ULCER, UNSP ACUTE OR CHRONIC, 12/06/2017 FRANCINE, BOBAN N Ot K29.50 UNSPECIFIED CHRONIC GASTRITIS WITHOUT BL 12/06/2017 FRANCINE, BOBAN N Ot N18.3 CHRONIC KIDNEY DISEASE, STAGE 3 (MODERAT 12/06/2017 FRANCINESABRINAAN N Ot Z79.4 LONGTERM (CURRENT) USE OF INSULIN 12/06/2017 FRANCINE BOBAN N Ot Z79.82 SHIP ENGINEER (CURRENT) USE OF ASPIRIN 12/06/2017 MARIPOSA SANCHEZ EAP CONSULTANT Ot J98.4 OTHER DISORDERS OF LUNG 12/06/2017 MARIPOSA SANCHEZ APRN Ot R06.02 SHORTNESS OF BREATH 12/06/2017 MARIPOSA SANCHEZ EAP CONSULTANT Ot R09.02 HYPOXEMIA 12/08/2017 SABRINA ESCAMILLAAN N Ot D50.9 IRON DEFICIENCY ANEMIA, UNSPECIFIED 12/08/2017 SABRINA ESCAMILLAAN N Ot E03.9 HYPOTHYROIDISM, UNSPECIFIED 12/08/2017 FRANCINE BOBAN N Ot 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 12/08/2017 FRANCINE BOBAN N Ot G47.33 OBSTRUCTIVE SLEEP APNEA (ADULT) (PEDIATR 12/08/2017 FRANCINE BOBAN N Ot I12.9 HYPERTENSIVE CHRONIC KIDNEY DISEASE W ST 12/08/2017 FRANCINE BOBAN N Ot I25.10 ATHSCL HEART DISEASE OF [place] CORONARY 12/08/2017 SABRINA ESCAMILLAAN N Ot J45.909 UNSPECIFIED ASTHMA, UNCOMPLICATED 12/08/2017 FRANCINE BOBAN N Ot K25.9 GASTRIC ULCER, UNSP ACUTE OR CHRONIC, 12/08/2017 FRANCINE, BOBAN N Ot K29.50 UNSPECIFIED CHRONIC GASTRITIS WITHOUT BL 12/08/2017 FRANCINE, BOBAN N Ot N18.3 CHRONIC KIDNEY DISEASE, STAGE 3 (MODERAT 12/08/2017 FRANCINE BOBAN N Ot Z79.4 SHIP ENGINEER (CURRENT) USE OF INSULIN 12/08/2017 FRANCINESABRINAAN N Ot Z79.82 SHIP ENGINEER (CURRENT) USE OF ASPIRIN 12/09/2017 MARIPOSA SANCHEZ EAP CONSULTANT Ot J98.4 OTHER DISORDERS OF LUNG 12/09/2017 MARIPOSA SANCHEZ EAP CONSULTANT Ot R06.02 SHORTNESS OF BREATH 12/09/2017 MARIPOSA SANCHEZ EAP CONSULTANT Ot R09.02 HYPOXEMIA 12/22/2017 MARIPOSA SANCHEZ EAP CONSULTANT Ot J98.4 OTHER DISORDERS OF LUNG 12/22/2017 MARIPOSA SANCHEZ EAP CONSULTANT Ot R06.02 SHORTNESS OF BREATH 12/22/2017 MARIPOSA SANCHEZ EAP CONSULTANT Ot R09.02 HYPOXEMIA 12/22/2017 MARIPOSA SANCHEZ EAP CONSULTANT Ot J98.4 OTHER DISORDERS OF LUNG 12/22/2017 MARIPOSA SANCHEZ EAP CONSULTANT Ot R06.02 SHORTNESS OF BREATH 12/22/2017 MARIPOSA SANCHEZ EAP CONSULTANT Ot R09.02 HYPOXEMIA 12/22/2017 POLY, ABI R EAP CONSULTANT Ot N63.20 UNSPECIFIED LUMP IN THE LEFT BREAST, UNS 12/22/2017 POLY, ABI R EAP CONSULTANT Ot N64.4 MASTODYNIA 12/23/2017 MARIPOSA SANCHEZ EAP CONSULTANT Ot J98.4 OTHER DISORDERS OF LUNG 12/23/2017 MARIPOSA SANCHEZ EAP CONSULTANT Ot R06.02 SHORTNESS OF BREATH 12/23/2017 MARIPOSA SANCHEZ EAP CONSULTANT Ot R09.02 HYPOXEMIA 12/28/2017 POLY, ABI R EAP CONSULTANT Ot N63.20 UNSPECIFIED LUMP IN THE LEFT BREAST, UNS 12/28/2017 POLY, ABI R EAP CONSULTANT Ot N64.4 MASTODYNIA 12/31/2017 MARIPOSA SANCHEZ EAP CONSULTANT Ot J98.4 OTHER DISORDERS OF LUNG 12/31/2017 MARIPOSA SANCHEZ EAP CONSULTANT Ot R06.02 SHORTNESS OF BREATH 12/31/2017 MARIPOSA SANCHEZ EAP CONSULTANT Ot R09.02 HYPOXEMIA 01/05/2018 LOUISE LAND EAP CONSULTANT Ot R30.0 DYSURIA 01/06/2018 L[place] EAP CONSULTANT Ot R30.0 DYSURIA 01/07/2018 MARIPOSA SANCHEZ EAP CONSULTANT Ot J98.4 OTHER DISORDERS OF LUNG 01/07/2018 MARIPOSA SANCHEZ EAP CONSULTANT Ot R06.02 SHORTNESS OF BREATH 01/07/2018 MARIPOSA SANCHEZ EAP CONSULTANT Ot R09.02 HYPOXEMIA 01/12/2018 MARIPOSA SANCHEZ EAP CONSULTANT Ot J98.4 OTHER DISORDERS OF LUNG 01/12/2018 MARIPOSA SANCHEZ EAP CONSULTANT Ot R06.02 SHORTNESS OF BREATH 01/12/2018 MARIPOSA SANCHEZ EAP CONSULTANT Ot R09.02 HYPOXEMIA 01/21/2018 MARIPOSA SANCHEZ EAP CONSULTANT Ot J98.4 OTHER DISORDERS OF LUNG 01/21/2018 MARIPOSA SANCHEZ EAP CONSULTANT Ot R06.02 SHORTNESS OF BREATH 01/21/2018 MARIPOSA SANCHEZ EAP CONSULTANT Ot R09.02 HYPOXEMIA 01/21/2018 MARIPOSA SANCHEZ EAP CONSULTANT Ot J98.4 OTHER DISORDERS OF LUNG 01/21/2018 MARIPOSA SANCHEZ EAP CONSULTANT Ot R06.02 SHORTNESS OF BREATH 01/21/2018 MARIPOSA SANCHEZ EAP CONSULTANT Ot R09.02 HYPOXEMIA 01/26/2018 MARIPOSA SANCHEZ EAP CONSULTANT Ot J98.4 OTHER DISORDERS OF LUNG 01/26/2018 MARIPOSA SANCHEZ EAP CONSULTANT Ot R06.02 SHORTNESS OF BREATH 01/26/2018 MARIPOSA SANCHEZ EAP CONSULTANT Ot R09.02 HYPOXEMIA 01/27/2018 MARILY PANDEY DO Ot Z01.818 ENCOUNTER FOR OTHER PREPROCEDURAL EXAMIN 01/27/2018 MARILY PANDEY DO Ot Z01.818 ENCOUNTER FOR OTHER PREPROCEDURAL EXAMIN 01/27/2018 MARILY PANDEY DO Ot Z01.818 ENCOUNTER FOR OTHER PREPROCEDURAL EXAMIN 02/01/2018 MARILY PANDEY DO Ot Z01.818 ENCOUNTER FOR OTHER PREPROCEDURAL EXAMIN 02/01/2018 NORA ESCAMILLA Ot D50.9 IRON DEFICIENCY ANEMIA, UNSPECIFIED 02/01/2018 NORA ESCAMILLA Ot E03.9 HYPOTHYROIDISM, UNSPECIFIED 02/01/2018 NORA ESCAMILLA Ot 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 02/01/2018 NORA ESCAMILLA Ot G47.33 OBSTRUCTIVE SLEEP APNEA (ADULT) (PEDIATR 02/01/2018 NORA ESCAMILLA Ot I12.9 HYPERTENSIVE CHRONIC KIDNEY DISEASE W ST 02/01/2018 NORA ESCAMILLA Ot I25.10 ATHSCL HEART DISEASE OF [place] CORONARY 02/01/2018 NORA ESCAMILLA Ot J45.909 UNSPECIFIED ASTHMA, UNCOMPLICATED 02/01/2018 NORA ESCAMILLA Ot K25.9 GASTRIC ULCER, UNSP ACUTE OR CHRONIC, 02/01/2018 NORA ESCAMILLA Ot K29.50 UNSPECIFIED CHRONIC GASTRITIS WITHOUT BL 02/01/2018 NORA ESCAMILLA Ot N18.3 CHRONIC KIDNEY DISEASE, STAGE 3 (MODERAT 02/01/2018 NORA ESCAMILLA Ot Z79.4 LONGTERM (CURRENT) USE OF INSULIN 02/01/2018 NORA ESCAMILLA Ot Z79.82 SHIP ENGINEER (CURRENT) USE OF ASPIRIN 02/01/2018 MARIPOSA SANCHEZ [...] Ot I25. 10 ATHSCL HEART DISEASE OF [place] CORONARY 02/02/2018 MARILY PANDEY DO Ot J44. 9 CHRONIC OBSTRUCTIVE PULMONARY DISEASE, U 02/02/2018 MARILY PANDEY DO Ot J45.909 UNSPECIFIED ASTHMA, UNCOMPLICATED 02/02/2018 MARILY PANDEY DO Ot K21. 9 GASTRO-ESOPHAGEAL REFLUX DISEASE WITHOUT 02/02/2018 MARILY PANDEY DO Ot K29. 70 GASTRITIS, UNSPECIFIED, WITHOUT BLEEDING 02/02/2018 MARILY PANDEY DO Ot K44. 9 DIAPHRAGMATIC HERNIA WITHOUT OBSTRUCTION 02/02/2018 MARILY PANDEY DO Ot Z68. 41 BODY MASS INDEX (BMI) 40.0-44.9, ADULT 02/02/2018 MARILY PANDEY DO Ot Z79. 4 LONGTERM (CURRENT) USE OF INSULIN 02/02/2018 MARILY PANDEY DO Ot Z79. 82 SHIP ENGINEER (CURRENT) USE OF ASPIRIN 02/02/2018 MARILY PANDEY DO Ot Z79.899 OTHER SHIP ENGINEER (CURRENT) DRUG THERAPY 02/02/2018 MARILY PANDEY DO Ot Z95. 5 PRESENCE OF CORONARY ANGIOPLASTY IMPLANT 02/02/2018 NORA ESCAMILLA Ot D50.9 IRON DEFICIENCY ANEMIA, UNSPECIFIED 02/02/2018 NORA ESCAMILLA Ot E03.9 HYPOTHYROIDISM, UNSPECIFIED 02/02/2018 NORA ESCAMILLA Ot 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 02/02/2018 NORA ESCAMILLA Ot G47.33 OBSTRUCTIVE SLEEP APNEA (ADULT) (PEDIATR 02/02/2018 NORA ESCAMILLA Ot I12.9 HYPERTENSIVE CHRONIC KIDNEY DISEASE W ST 02/02/2018 NORA ESCAMILLA Ot I25.10 ATHSCL HEART DISEASE OF [place] CORONARY 02/02/2018 NORA ESCAMILLA Ot J45.909 UNSPECIFIED ASTHMA, UNCOMPLICATED 02/02/2018 NORA ESCAMILLA Ot K25.9 GASTRIC ULCER, UNSP ACUTE OR CHRONIC, 02/02/2018 NORA ESCAMILLA Ot K29.50 UNSPECIFIED CHRONIC GASTRITIS WITHOUT BL 02/02/2018 NORA ESCAMILLA Ot N18.3 CHRONIC KIDNEY DISEASE, STAGE 3 (MODERAT 02/02/2018 NORA ESCAMILLA Ot Z79.4 SHIP ENGINEER (CURRENT) USE OF INSULIN 02/02/2018 NORA ESCAMILLA Ot Z79.82 LONGTERM (CURRENT) USE OF ASPIRIN 02/02/2018 MARIPOSA SANCHEZ [...] Ot I25. 10 ATHSCL HEART DISEASE OF [place] CORONARY 02/03/2018 MARILY PANDEY DO Ot J44. [...] 02/03/2018 MARILY PANDEY DO Ot Z79. 4 SHIP ENGINEER (CURRENT) USE OF INSULIN 02/03/2018 MARILY PANDEY DO Ot Z79. 82 SHIP ENGINEER (CURRENT) USE OF ASPIRIN 02/03/2018 MARILY PANDEY DO Ot Z79.899 OTHER LONGTERM (CURRENT) DRUG THERAPY 02/03/2018 MARILY PANDEY DO [...] APRN Ot I25.10 ATHSCL HEART DISEASE OF [place] CORONARY 02/24/2018 MARIPOSA SANCHEZ APRN Ot J45.909 [...] Ot I25. 10 ATHSCL HEART DISEASE OF [place] CORONARY 02/26/2018 MARILY PANDEY DO Ot J44. [...] 02/26/2018 MARILY PANDEY DO Ot Z79. 4 LONGTERM (CURRENT) USE OF INSULIN 02/26/2018 MARILY PANDEY DO Ot Z79. 82 SHIP ENGINEER (CURRENT) USE OF ASPIRIN 02/26/2018 MARILY PANDEY DO Ot Z79.899 OTHER SHIP ENGINEER (CURRENT) DRUG THERAPY 02/26/2018 DANNIE RUCKER MARILY Abdulkadir Ot Z95. 5 PRESENCE OF CORONARY ANGIOPLASTY IMPLANT 03/04/2018 MARIPOSA SANCHEZ EAP CONSULTANT Ot J98.4 OTHER DISORDERS OF LUNG 03/04/2018 MARIPOSA SANCHEZ EAP CONSULTANT Ot R06.02 SHORTNESS OF BREATH 03/04/2018 MARIPOSA SANCHEZ EAP CONSULTANT Ot R09.02 HYPOXEMIA 03/18/2018 MARIPOSA SANCHEZ EAP CONSULTANT Ot J98.4 OTHER DISORDERS OF LUNG 03/18/2018 MARIPOSA SANCHEZ EAP CONSULTANT Ot R06.02 SHORTNESS OF BREATH 03/18/2018 MARIPOSA SANCHEZ APRN Ot R09.02 HYPOXEMIA 03/21/2018 NORA ESCAMILLA Ot D50.9 IRON DEFICIENCY ANEMIA, UNSPECIFIED 03/21/2018 NORA ESCAMILLA N Ot E03.9 HYPOTHYROIDISM, UNSPECIFIED 03/21/2018 NORA ESCAMILLA N Ot 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 03/21/2018 NORA ESCAMILLA Ot G47.33 OBSTRUCTIVE SLEEP APNEA (ADULT) (PEDIATR 03/21/2018 NORA ESCAMILLA N Ot I12.9 HYPERTENSIVE CHRONIC KIDNEY DISEASE W ST 03/21/2018 NORA ESCAMILLA N Ot I25.10 ATHSCL HEART DISEASE OF [place] CORONARY 03/21/2018 NORA ESCAMILLA Ot J45.909 UNSPECIFIED ASTHMA, UNCOMPLICATED 03/21/2018 NORA ESCAMILLA N Ot K25.9 GASTRIC ULCER, UNSP ACUTE OR CHRONIC, 03/21/2018 NORA ESCAMILLA Ot K29.50 UNSPECIFIED CHRONIC GASTRITIS WITHOUT BL 03/21/2018 NORA ESCAMILLA N Ot N18.3 CHRONIC KIDNEY DISEASE, STAGE 3 (MODERAT 03/21/2018 NORA ESCAMILLA N Ot Z79.4 SHIP ENGINEER (CURRENT) USE OF INSULIN 03/21/2018 NORA ESCAMILLA Ot Z79.82 LONGTERM (CURRENT) USE OF ASPIRIN 03/22/2018 MARIPOSA SANCHEZ APRN Ot J98.4 OTHER DISORDERS OF LUNG 03/22/2018 MARIPOSA SANCHEZ EAP CONSULTANT Ot R06.02 SHORTNESS OF BREATH 03/22/2018 MARIPOSA SANCHEZ EAP CONSULTANT Ot R09.02 HYPOXEMIA 03/22/2018 NORA ESCAMILLA N Ot D50.9 IRON DEFICIENCY ANEMIA, UNSPECIFIED 03/22/2018 NORA ESCAMILLA N Ot E03.9 HYPOTHYROIDISM, UNSPECIFIED 03/22/2018 NORA ESCAMILLA N Ot 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 03/22/2018 NORA ESCAMILLA N Ot G47.33 OBSTRUCTIVE SLEEP APNEA (ADULT) (PEDIATR 03/22/2018 NORA ESCAMILLA N Ot I12.9 HYPERTENSIVE CHRONIC KIDNEY DISEASE W ST 03/22/2018 NORA ESCAMILLA N Ot I25.10 ATHSCL HEART DISEASE OF [place] CORONARY 03/22/2018 NORA ESCAMILLA N Ot J45.909 UNSPECIFIED ASTHMA, UNCOMPLICATED 03/22/2018 NORA ESCAMILLA N Ot K25.9 GASTRIC ULCER, UNSP ACUTE OR CHRONIC, 03/22/2018 NORA ESCAMILLA N Ot K29.50 UNSPECIFIED CHRONIC GASTRITIS WITHOUT BL 03/22/2018 NORA ESCAMILLA N Ot N18.3 CHRONIC KIDNEY DISEASE, STAGE 3 (MODERAT 03/22/2018 NORA ESCAMILLA N Ot Z79.4 SHIP ENGINEER (CURRENT) USE OF INSULIN 03/22/2018 NORA ESCAMILLA N Ot Z79.82 LONGTERM (CURRENT) USE OF ASPIRIN 03/23/2018 MARIPOSA SANCHEZ EAP CONSULTANT Ot J98.4 OTHER DISORDERS OF LUNG 03/23/2018 MARIPOSA SANCHEZ EAP CONSULTANT Ot R06.02 SHORTNESS OF BREATH 03/23/2018 MARIPOSA SANCHEZ EAP CONSULTANT Ot R09.02 HYPOXEMIA 03/25/2018 MARIPOSA SANCHEZ EAP CONSULTANT Ot I05.9 RHEUMATIC MITRAL VALVE DISEASE, UNSPECIF 03/25/2018 MARIPOSA SANCHEZ EAP CONSULTANT Ot I25.10 ATHSCL HEART DISEASE OF [place] CORONARY 03/25/2018 MARIPOSA SANCHEZ EAP CONSULTANT Ot J45.909 UNSPECIFIED ASTHMA, UNCOMPLICATED 03/25/2018 MARIPOSA SANCHEZ EAP CONSULTANT Ot J98.4 OTHER DISORDERS OF LUNG 03/26/2018 MARIPOSA SANCHEZ EAP CONSULTANT Ot G47.33 OBSTRUCTIVE SLEEP APNEA (ADULT) (PEDIATR 03/27/2018 NORA ESCAMILLA N Ot D50.9 IRON DEFICIENCY ANEMIA, UNSPECIFIED 03/27/2018 NORA ESCAMILLA N Ot E03.9 HYPOTHYROIDISM, UNSPECIFIED 03/27/2018 NORA ESCAMILLA Wilfrido Ot 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 03/27/2018 NORA ESCAMILLA Wilfrido Ot G47.33 OBSTRUCTIVE SLEEP APNEA (ADULT) (PEDIATR 03/27/2018 NORA ESCAMILLA Wilfrido Ot I12.9 HYPERTENSIVE CHRONIC KIDNEY DISEASE W ST 03/27/2018 NORA ESCAMILLA Wilfrido Ot I25.10 ATHSCL HEART DISEASE OF [place] CORONARY 03/27/2018 FRANCINE NORA Anna Ot J45.909 UNSPECIFIED ASTHMA, UNCOMPLICATED 03/27/2018 FRANCINE SABRINANAZARIO N Ot K25.9 GASTRIC ULCER, UNSP ACUTE OR CHRONIC, 03/27/2018 FRANCINE NORA N Ot K29.50 UNSPECIFIED CHRONIC GASTRITIS WITHOUT BL 03/27/2018 FRANCINE NORA Anna Ot N18.3 CHRONIC KIDNEY DISEASE, STAGE 3 (MODERAT 03/27/2018 NORA ESCAMILLA Wilfrido Ot Z79.4 SHIP ENGINEER (CURRENT) USE OF INSULIN 03/27/2018 FRANCINENORA Ot Z79.82 LONGTERM (CURRENT) USE OF ASPIRIN 03/28/2018 MARIPOSA SANCHEZ EAP CONSULTANT Ot J98.4 OTHER DISORDERS OF LUNG 03/28/2018 MARIPOSA SANCHEZ EAP CONSULTANT Ot R06.02 SHORTNESS OF BREATH 03/28/2018 MARIPOSA SANCHEZ EAP CONSULTANT Ot R09.02 HYPOXEMIA 03/30/2018 MARIPOSA SANCHEZ EAP CONSULTANT Ot J98.4 OTHER DISORDERS OF LUNG 03/30/2018 MARIPOSA SANCHEZ EAP CONSULTANT Ot R06.02 SHORTNESS OF BREATH 03/30/2018 MARIPOSA SANCHEZ EAP CONSULTANT Ot R09.02 HYPOXEMIA 03/30/2018 MARIPOSA SANCHEZ EAP CONSULTANT Ot G47.33 OBSTRUCTIVE SLEEP APNEA (ADULT) (PEDIATR 03/30/2018 MARIPOSA SANCHEZ EAP CONSULTANT Ot G47.33 OBSTRUCTIVE SLEEP APNEA (ADULT) (PEDIATR 03/31/2018 MARIPOSA SANCHEZ EAP CONSULTANT Ot G47.33 OBSTRUCTIVE SLEEP APNEA (ADULT) (PEDIATR 03/31/2018 MARIPOSA SANCHEZ EAP CONSULTANT Ot J45.909 UNSPECIFIED ASTHMA, UNCOMPLICATED 03/31/2018 MARIPOSA SANCHEZ EAP CONSULTANT Ot J98.4 OTHER DISORDERS OF LUNG 03/31/2018 MARIPOSA SANCHEZ EAP CONSULTANT Ot R06.02 SHORTNESS OF BREATH 03/31/2018 MARIPOSA SANCHEZ EAP CONSULTANT Ot R07.89 OTHER CHEST PAIN 03/31/2018 MARIPOSA SANCHEZ EAP CONSULTANT Ot R09.02 HYPOXEMIA 03/31/2018 MARIPOSA SANCHEZ EAP CONSULTANT Ot I05.9 RHEUMATIC MITRAL VALVE DISEASE, UNSPECIF 03/31/2018 MARIPOSA SANCHEZ EAP CONSULTANT Ot I25.10 ATHSCL HEART DISEASE OF [place] CORONARY 03/31/2018 MARIPOSA SANCHEZ EAP CONSULTANT Ot J45.909 UNSPECIFIED ASTHMA, UNCOMPLICATED 03/31/2018 MARIPOSA SANCHEZ EAP CONSULTANT Ot J98.4 OTHER DISORDERS OF LUNG 03/31/2018 MARIPOSA SANCHEZ EAP CONSULTANT Ot G47.33 OBSTRUCTIVE SLEEP APNEA (ADULT) (PEDIATR 03/31/2018 MARIPOSA SANCHEZ EAP CONSULTANT Ot J45.909 UNSPECIFIED ASTHMA, UNCOMPLICATED 03/31/2018 MARIPOSA SANCHEZ EAP CONSULTANT Ot J98.4 OTHER DISORDERS OF LUNG 03/31/2018 MARIPOSA SANCHEZ EAP CONSULTANT Ot R06.02 SHORTNESS OF BREATH 03/31/2018 MARIPOSA SANCHEZ EAP CONSULTANT Ot R07.89 OTHER CHEST PAIN 03/31/2018 MARIPOSA SANCHEZ EAP CONSULTANT Ot R09.02 HYPOXEMIA 04/01/2018 MARIPOSA SANCHEZ EAP CONSULTANT Ot J98.4 OTHER DISORDERS OF LUNG 04/01/2018 MARIPOSA SANCHEZ EAP CONSULTANT Ot R06.02 SHORTNESS OF BREATH 04/01/2018 MARIPOSA SANCHEZ EAP CONSULTANT Ot R09.02 HYPOXEMIA 04/06/2018 MARIPOSA SANCHEZ EAP CONSULTANT Ot J98.4 OTHER DISORDERS OF LUNG 04/06/2018 MAIRPOSA SANCHEZ EAP CONSULTANT Ot R06.02 SHORTNESS OF BREATH 04/06/2018 MARIPOSA SANCHEZ EAP CONSULTANT Ot R09.02 HYPOXEMIA 04/08/2018 MARIPOSA SANCHEZ EAP CONSULTANT Ot J98.4 OTHER DISORDERS OF LUNG 04/08/2018 MARIPOSA SANCHEZ EAP CONSULTANT Ot R06.02 SHORTNESS OF BREATH 04/08/2018 MARIPOSA SANCHEZ EAP CONSULTANT Ot R09.02 HYPOXEMIA 04/13/2018 MARIPOSA SANCHEZ EAP CONSULTANT Ot J98.4 OTHER DISORDERS OF LUNG 04/13/2018 MARIPOSA SANCHEZ EAP CONSULTANT Ot R06.02 SHORTNESS OF BREATH 04/13/2018 MARIPOSA SANCHEZ EAP CONSULTANT Ot R09.02 HYPOXEMIA 04/17/2018 MARIPOSA SANCHEZ EAP CONSULTANT Ot J98.4 OTHER DISORDERS OF LUNG 04/17/2018 MARIPOSA SANCHEZ EAP CONSULTANT Ot R06.02 SHORTNESS OF BREATH 04/17/2018 MARIPOSA SANCHEZ EAP CONSULTANT Ot R09.02 HYPOXEMIA 04/21/2018 NORA ESCAMILLA N Ot D50.9 IRON DEFICIENCY ANEMIA, UNSPECIFIED 04/21/2018 NORA ESCAMILLA N Ot E03.9 HYPOTHYROIDISM, UNSPECIFIED 04/21/2018 NORA ESCAMILLA N Ot 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 04/21/2018 NORA ESCAMILLA N Ot G47.33 OBSTRUCTIVE SLEEP APNEA (ADULT) (PEDIATR 04/21/2018 NORA ESCAMILLA N Ot I12.9 HYPERTENSIVE CHRONIC KIDNEY DISEASE W ST 04/21/2018 NORA ESCAMILLA N Ot I25.10 ATHSCL HEART DISEASE OF [place] CORONARY 04/21/2018 NORA ESCAMILLA N Ot J45.909 UNSPECIFIED ASTHMA, UNCOMPLICATED 04/21/2018 NORA ESCAMILLA N Ot K25.9 GASTRIC ULCER, UNSP ACUTE OR CHRONIC, 04/21/2018 NORA ESCAMILLA N Ot K29.50 UNSPECIFIED CHRONIC GASTRITIS WITHOUT BL 04/21/2018 NORA ESCAMILLA N Ot N18.3 CHRONIC KIDNEY DISEASE, STAGE 3 (MODERAT 04/21/2018 NORA ESCAMILLA N Ot Z79.4 SHIP ENGINEER (CURRENT) USE OF INSULIN 04/21/2018 NORA ESCAMILLA N Ot Z79.82 LONGTERM (CURRENT) USE OF ASPIRIN 04/22/2018 NORA ESCAMILLA N Ot D50.9 IRON DEFICIENCY ANEMIA, UNSPECIFIED 04/22/2018 NORA ESCAMILLA N Ot E03.9 HYPOTHYROIDISM, UNSPECIFIED 04/22/2018 NORA ESCAMILLA N Ot 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 04/22/2018 NORA ESCAMILLA N Ot G47.33 OBSTRUCTIVE SLEEP APNEA (ADULT) (PEDIATR 04/22/2018 NORA ESCAMILLA N Ot I12.9 HYPERTENSIVE CHRONIC KIDNEY DISEASE W ST 04/22/2018 NORA ESCAMILLA N Ot I25.10 ATHSCL HEART DISEASE OF [place] CORONARY 04/22/2018 NORA ESCAMILLA Wilfrido Ot J45.909 UNSPECIFIED ASTHMA, UNCOMPLICATED 04/22/2018 NORA ESCAMILLA Wilfrido Ot K25.9 GASTRIC ULCER, UNSP ACUTE OR CHRONIC, 04/22/2018 NORA ESCAMILLA Wilfrido Ot K29.50 UNSPECIFIED CHRONIC GASTRITIS WITHOUT BL 04/22/2018 NORA ESCAMILLA Wilfrido Ot N18.3 CHRONIC KIDNEY DISEASE, STAGE 3 (MODERAT 04/22/2018 NORA ESCAMILLA Wilfrido Ot Z79.4 SHIP ENGINEER (CURRENT) USE OF INSULIN 04/22/2018 FRANCINE SABRINANAZARIO Wilfrido Ot Z79.82 SHIP ENGINEER (CURRENT) USE OF ASPIRIN 04/27/2018 MARIPOSA SANCHEZ EAP CONSULTANT Ot J98.4 OTHER DISORDERS OF LUNG 04/27/2018 MARIPOSA SANCHEZ EAP CONSULTANT Ot R06.02 SHORTNESS OF BREATH 04/27/2018 MARIPOSA SANCHEZ EAP CONSULTANT Ot R09.02 HYPOXEMIA 05/04/2018 MARIPOSA SANCHEZ EAP CONSULTANT Ot J98.4 OTHER DISORDERS OF LUNG 05/04/2018 MARIPOSA SANCHEZ EAP CONSULTANT Ot R06.02 SHORTNESS OF BREATH 05/04/2018 MARIPOSA SANCHEZ EAP CONSULTANT Ot R09.02 HYPOXEMIA 05/05/2018 MARIPOSA SANCHEZ EAP CONSULTANT Ot J98.4 OTHER DISORDERS OF LUNG 05/05/2018 MARIPOSA SANCHEZ EAP CONSULTANT Ot R06.02 SHORTNESS OF BREATH 05/05/2018 MARIPOSA SANCHEZ EAP CONSULTANT Ot R09.02 HYPOXEMIA 05/07/2018 MARIPOSA SANCHEZ EAP CONSULTANT Ot J98.4 OTHER DISORDERS OF LUNG 05/07/2018 MARIPOSA SANCHEZ EAP CONSULTANT Ot R06.02 SHORTNESS OF BREATH 05/07/2018 MARIPOSA SANCHEZ EAP CONSULTANT Ot R09.02 HYPOXEMIA 05/08/2018 MARIPOSA SANCHEZ EAP CONSULTANT Ot G47.33 OBSTRUCTIVE SLEEP APNEA (ADULT) (PEDIATR 05/08/2018 MARIPOSA SANCHEZ EAP CONSULTANT Ot J30.9 ALLERGIC RHINITIS, UNSPECIFIED 05/08/2018 MARIPOSA SANCHEZ EAP CONSULTANT Ot J45.909 UNSPECIFIED ASTHMA, UNCOMPLICATED 05/08/2018 MARIPOSA SANCHEZ EAP CONSULTANT Ot J98.4 OTHER DISORDERS OF LUNG 05/08/2018 DANIELMARIPOSA GUTIERRES EAP CONSULTANT Ot R06.02 SHORTNESS OF BREATH 05/08/2018 SATHYA SANCHEZINE E EAP CONSULTANT Ot R07.89 OTHER CHEST PAIN 05/08/2018 MARIPOSA SANCHEZ EAP CONSULTANT Ot R09.02 HYPOXEMIA 05/10/2018 DANIEL, MARIPOSA E EAP CONSULTANT Ot G47.33 OBSTRUCTIVE SLEEP APNEA (ADULT) (PEDIATR 05/10/2018 SATHYA SANCHEZINE E EAP CONSULTANT Ot J30.9 ALLERGIC RHINITIS, UNSPECIFIED 05/10/2018 SATHYA SANCHEZINE E EAP CONSULTANT Ot J45.909 UNSPECIFIED ASTHMA, UNCOMPLICATED 05/10/2018 DANIELSATHYA GUTIERRESINE E EAP CONSULTANT Ot J98.4 OTHER DISORDERS OF LUNG 05/10/2018 MARIPOSA SANCHEZ E EAP CONSULTANT Ot R06.02 SHORTNESS OF BREATH 05/10/2018 MARIPOSA SANCHEZ EAP CONSULTANT Ot R07.89 OTHER CHEST PAIN 05/10/2018 MARIPOSA SANCHEZ E EAP CONSULTANT Ot R09.02 HYPOXEMIA 05/11/2018 MARIPOSA SANCHEZ EAP CONSULTANT Ot J98.4 OTHER DISORDERS OF LUNG 05/11/2018 MARIPOSA SANCHEZ EAP CONSULTANT Ot R06.02 SHORTNESS OF BREATH 05/11/2018 SATHYA SANCHEZINE Zafar EAP CONSULTANT Ot R09.02 HYPOXEMIA 05/13/2018 SATHYA SANCHEZINE E EAP CONSULTANT Ot J98.4 OTHER DISORDERS OF LUNG 05/13/2018 MARIPOSA SANCHEZ EAP CONSULTANT Ot R06.02 SHORTNESS OF BREATH 05/13/2018 MARIPOSA SANCHEZ EAP CONSULTANT Ot R09.02 HYPOXEMIA 05/20/2018 SATHYA SANCHEZINE E EAP CONSULTANT Ot J98.4 OTHER DISORDERS OF LUNG 05/20/2018 SATHYA SANCHEZINE E EAP CONSULTANT Ot R06.02 SHORTNESS OF BREATH 05/20/2018 SATHYA SANCHEZINE E EAP CONSULTANT Ot R09.02 HYPOXEMIA 05/27/2018 SATHYA SANCHEZINE E EAP CONSULTANT Ot J98.4 OTHER DISORDERS OF LUNG 05/27/2018 MARIPOSA SANCHEZ EAP CONSULTANT Ot R06.02 SHORTNESS OF BREATH 05/27/2018 SATHYA SANCHEZINE E EAP CONSULTANT Ot R09.02 HYPOXEMIA 05/28/2018 NORA ESCAMILLA Ot D50.9 IRON DEFICIENCY ANEMIA, UNSPECIFIED 05/28/2018 FRANCINE, BOBAN N Ot E03.9 HYPOTHYROIDISM, UNSPECIFIED 05/28/2018 NORA ESCAMILLA N Ot 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 05/28/2018 NORA ESCAMILLA N Ot G47.33 OBSTRUCTIVE SLEEP APNEA (ADULT) (PEDIATR 05/28/2018 NORA ESCAMILLA N Ot I12.9 HYPERTENSIVE CHRONIC KIDNEY DISEASE W ST 05/28/2018 NORA ESCAMILLA N Ot I25.10 ATHSCL HEART DISEASE OF [place] CORONARY 05/28/2018 NORA ESCAMILLA Ot J45.909 UNSPECIFIED ASTHMA, UNCOMPLICATED 05/28/2018 NORA ESCAMILLA N Ot K25.9 GASTRIC ULCER, UNSP ACUTE OR CHRONIC, 05/28/2018 NORA ESCAMILLA N Ot K29.50 UNSPECIFIED CHRONIC GASTRITIS WITHOUT BL 05/28/2018 NORA ESCAMILLA N Ot N18.3 CHRONIC KIDNEY DISEASE, STAGE 3 (MODERAT 05/28/2018 NORA ESCAMILLA N Ot Z79.4 LONGTERM (CURRENT) USE OF INSULIN 05/28/2018 NORA ESCAMILLA N Ot Z79.82 SHIP ENGINEER (CURRENT) USE OF ASPIRIN 06/01/2018 MARIPOSA SANCHEZ EAP CONSULTANT Ot J98.4 OTHER DISORDERS OF LUNG 06/01/2018 MARIPOSA SANCHEZ EAP CONSULTANT Ot R06.02 SHORTNESS OF BREATH 06/01/2018 MARIPOSA SANCHEZ EAP CONSULTANT Ot R09.02 HYPOXEMIA 06/01/2018 MARIPOSA SANCHEZ EAP CONSULTANT Ot J98.4 OTHER DISORDERS OF LUNG 06/01/2018 MARIPOSA SANCHEZ EAP CONSULTANT Ot R06.02 SHORTNESS OF BREATH 06/01/2018 MARIPOSA SANCHEZ EAP CONSULTANT Ot R09.02 HYPOXEMIA 06/01/2018 NORA ESCAMILLA N Ot D50.9 IRON DEFICIENCY ANEMIA, UNSPECIFIED 06/01/2018 NORA ESCAMILLA N Ot E03.9 HYPOTHYROIDISM, UNSPECIFIED 06/01/2018 NORA ESCAMILLA N Ot 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 06/01/2018 NORA ESCAMILLA N Ot G47.33 OBSTRUCTIVE SLEEP APNEA (ADULT) (PEDIATR 06/01/2018 NORA ESCAMILLA N Ot I12.9 HYPERTENSIVE CHRONIC KIDNEY DISEASE W ST 06/01/2018 NORA ESCAMILLA N Ot I25.10 ATHSCL HEART DISEASE OF [place] CORONARY 06/01/2018 NORA ESCAMILLA Wilfrido Ot J45.909 UNSPECIFIED ASTHMA, UNCOMPLICATED 06/01/2018 NORA ESCAMILLA Wilfrido Ot K25.9 GASTRIC ULCER, UNSP ACUTE OR CHRONIC, 06/01/2018 NORA ESCAMILLA Wilfrido Ot K29.50 UNSPECIFIED CHRONIC GASTRITIS WITHOUT BL 06/01/2018 NORA ESCAMILLA Wilfrido Ot N18.3 CHRONIC KIDNEY DISEASE, STAGE 3 (MODERAT 06/01/2018 NORA ESCAMILLA Wilfrido Ot Z79.4 SHIP ENGINEER (CURRENT) USE OF INSULIN 06/01/2018 FRANCINE SABRINANAZARIO Wilfrido Ot Z79.82 LONGTERM (CURRENT) USE OF ASPIRIN 06/01/2018 TO GRAY MD Ot E03. 9 HYPOTHYROIDISM, UNSPECIFIED 06/01/2018 TO [...] 06/01/2018 TO GRAY MD Ot Z79. 4 LONGTERM (CURRENT) USE OF INSULIN 06/01/2018 TO GRAY MD Ot Z79. 51 LONGTERM (CURRENT) USE OF INHALED STERO 06/01/2018 TO GRAY MD Ot Z79. 82 SHIP ENGINEER (CURRENT) USE OF ASPIRIN 06/01/2018 TO GRAY [...] 5 PRESENCE OF CORONARY ANGIOPLASTY IMPLANT 06/03/2018 TO GRAY MD Ot E03. 9 HYPOTHYROIDISM, UNSPECIFIED 06/03/2018 TO [...] 06/03/2018 TO GRAY MD Ot Z79. 4 SHIP ENGINEER (CURRENT) USE OF INSULIN 06/03/2018 TO GRAY MD Ot Z79. 51 SHIP ENGINEER (CURRENT) USE OF INHALED STERO 06/03/2018 TO GRAY MD Ot Z79. 82 SHIP ENGINEER (CURRENT) USE OF ASPIRIN 06/03/2018 TO GRAY [...] 89 ACQUIRED ABSENCE OF OTHER ORGANS 06/03/2018 TO GRAY MD Ot Z95. 5 PRESENCE OF CORONARY ANGIOPLASTY IMPLANT 06/30/2018 MARIPOSA SANCHEZ APRN Ot J98.4 OTHER DISORDERS OF LUNG 06/30/2018 MARIPOSA SANCHEZ APRN Ot R06.02 SHORTNESS OF BREATH 06/30/2018 MARIPOSA SANCHEZ APRN Ot R09.02 HYPOXEMIA 07/01/2018 MARIPOSA SANCHEZ APRN Ot J98.4 OTHER DISORDERS OF LUNG 07/01/2018 MARIPOSA SANCHEZ APRN Ot R06.02 SHORTNESS OF BREATH 07/01/2018 MARIPOSA SANCHEZ APRN Ot R09.02 HYPOXEMIA 07/20/2018 NORA ESCAMILLA Ot D50.9 IRON DEFICIENCY ANEMIA, UNSPECIFIED 07/20/2018 NORA ESCAMILLA Ot E03.9 HYPOTHYROIDISM, UNSPECIFIED 07/20/2018 NORA ESCAMILLA Ot 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 07/20/2018 NORA ESCAMILLA Ot G47.33 OBSTRUCTIVE SLEEP APNEA (ADULT) (PEDIATR 07/20/2018 NORA ESCAMILLA Ot I12.9 HYPERTENSIVE CHRONIC KIDNEY DISEASE W ST 07/20/2018 NORA ESCAMILLA Ot I25.10 ATHSCL HEART DISEASE OF [place] CORONARY 07/20/2018 FRANCINE, BOBAN N Ot J45.909 UNSPECIFIED ASTHMA, UNCOMPLICATED 07/20/2018 FRANCINE, BOBAN N Ot K25.9 GASTRIC ULCER, UNSP ACUTE OR CHRONIC, 07/20/2018 FRANCINE, BOBAN N Ot K29.50 UNSPECIFIED CHRONIC GASTRITIS WITHOUT BL 07/20/2018 FRANCINE, BOBAN N Ot N18.3 CHRONIC KIDNEY DISEASE, STAGE 3 (MODERAT 07/20/2018 FRANCINE BOBAN N Ot Z79.4 SHIP ENGINEER (CURRENT) USE OF INSULIN 07/20/2018 FRANCINE, BOBAN N Ot Z79.82 SHIP ENGINEER (CURRENT) USE OF ASPIRIN 07/21/2018 FRANCINE, BOBAN N Ot D50.9 IRON DEFICIENCY ANEMIA, UNSPECIFIED 07/21/2018 FRANCINE, BOBAN N Ot E03.9 HYPOTHYROIDISM, UNSPECIFIED 07/21/2018 FRANCINE, BOBAN N Ot 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 07/21/2018 FRANCINE, BOBAN N Ot G47.33 OBSTRUCTIVE SLEEP APNEA (ADULT) (PEDIATR 07/21/2018 FRANCINE BOBAN N Ot I12.9 HYPERTENSIVE CHRONIC KIDNEY DISEASE W ST 07/21/2018 FRANCINE BOBAN N Ot I25.10 ATHSCL HEART DISEASE OF [place] CORONARY 07/21/2018 SABRINA ESCAMILLAAN N Ot J45.909 UNSPECIFIED ASTHMA, UNCOMPLICATED 07/21/2018 FRANCINE, BOBAN N Ot K25.9 GASTRIC ULCER, UNSP ACUTE OR CHRONIC, 07/21/2018 FRANCINE BOBAN N Ot K29.50 UNSPECIFIED CHRONIC GASTRITIS WITHOUT BL 07/21/2018 FRANCINE BOBAN N Ot N18.3 CHRONIC KIDNEY DISEASE, STAGE 3 (MODERAT 07/21/2018 FRANCINE BOBAN N Ot Z79.4 SHIP ENGINEER (CURRENT) USE OF INSULIN 07/21/2018 FRANCINE, BOBAN N Ot Z79.82 LONGTERM (CURRENT) USE OF ASPIRIN 10/28/2018 FRANCINE, BOBAN N Ot D50.9 IRON DEFICIENCY ANEMIA, UNSPECIFIED 10/28/2018 FRANCINE, BOBAN N Ot E03.9 HYPOTHYROIDISM, UNSPECIFIED 10/28/2018 FRANCINE, BOBAN N Ot 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 10/28/2018 FRANCINE, BOBAN N Ot G47.33 OBSTRUCTIVE SLEEP APNEA (ADULT) (PEDIATR 10/28/2018 NORA ESCAMILLA Ot I12.9 HYPERTENSIVE CHRONIC KIDNEY DISEASE W ST 10/28/2018 NORA ESCAMILLA Ot I25.10 ATHSCL HEART DISEASE OF [place] CORONARY 10/28/2018 NORA ESCAMILLA Ot J45.909 UNSPECIFIED ASTHMA, UNCOMPLICATED 10/28/2018 NORA ESCAMILLA Ot K25.9 GASTRIC ULCER, UNSP ACUTE OR CHRONIC, 10/28/2018 NORA ESCAMILLA Ot K29.50 UNSPECIFIED CHRONIC GASTRITIS WITHOUT BL 10/28/2018 NORA ESCAMILLA Ot N18.3 CHRONIC KIDNEY DISEASE, STAGE 3 (MODERAT 10/28/2018 NORA ESCAMILLA Ot Z79.4 SHIP ENGINEER (CURRENT) USE OF INSULIN 10/28/2018 NORA ESCAMILLA Ot Z79.82 SHIP ENGINEER (CURRENT) USE OF ASPIRIN 11/05/2018 MAGDY ZIEGLER APRN Ot E03 .9 HYPOTHYROIDISM, UNSPECIFIED 11/05/2018 MAGDY [...] APRN Ot I25.10 ATHSCL HEART DISEASE OF [place] CORONARY 11/05/2018 MAGDY ZIEGLER APRN Ot I42 .9 CARDIOMYOPATHY, UNSPECIFIED 11/05/2018 MAGDY ZIEGLER APRN Ot J44 .9 CHRONIC OBSTRUCTIVE PULMONARY DISEASE, U 11/05/2018 MAGDY ZIEGLER APRN Ot M32 .9 SYSTEMIC LUPUS ERYTHEMATOSUS, UNSPECIFIE 11/05/2018 MAGDY ZIEGLER APRN Ot R06.02 SHORTNESS OF BREATH 11/05/2018 MAGDY ZIEGLRE APRN Ot R07.89 OTHER CHEST PAIN 11/05/2018 MAGDY ZIEGLER APRN Ot Z79.82 LONGTERM (CURRENT) USE OF ASPIRIN 11/05/2018 MAGDY ZIEGLER APRN Ot Z79.84 SHIP ENGINEER (CURRENT) USE OF ORAL HYPOGLYC 11/05/2018 MAGDY [...] Ot Z99.81 DEPENDENCE ON SUPPLEMENTAL OXYGEN 12/12/2018 NORA ESCAMILLA Ot D50.9 IRON DEFICIENCY ANEMIA, UNSPECIFIED 12/12/2018 NORA ESCAMILLA Ot E03.9 HYPOTHYROIDISM, UNSPECIFIED 12/12/2018 NORA ESCAMILLA Ot 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 12/12/2018 NORA ESCAMILLA Ot G47.33 OBSTRUCTIVE SLEEP APNEA (ADULT) (PEDIATR 12/12/2018 NORA ESCAMILLA Ot I12.9 HYPERTENSIVE CHRONIC KIDNEY DISEASE W ST 12/12/2018 NORA ESCAMILLA Ot I25.10 ATHSCL HEART DISEASE OF [place] CORONARY 12/12/2018 NORA ESCAMILLA Ot J45.909 UNSPECIFIED ASTHMA, UNCOMPLICATED 12/12/2018 NORA ESCAMILLA Ot K25.9 GASTRIC ULCER, UNSP ACUTE OR CHRONIC, 12/12/2018 NORA ESCAMILLA Ot K29.50 UNSPECIFIED CHRONIC GASTRITIS WITHOUT BL 12/12/2018 NORA ESCAMILLA Ot N18.3 CHRONIC KIDNEY DISEASE, STAGE 3 (MODERAT 12/12/2018 NORA ESCAMILLA Ot Z79.4 LONGTERM (CURRENT) USE OF INSULIN 12/12/2018 NORA ESCAMILLA Ot Z79.82 LONGTERM (CURRENT) USE OF ASPIRIN 12/13/2018 FRANCINE, BOBAN N Ot D50.9 IRON DEFICIENCY ANEMIA, UNSPECIFIED 12/13/2018 FRANCINE, BOBAN N Ot E03.9 HYPOTHYROIDISM, UNSPECIFIED 12/13/2018 FRANCINE, BOBAN N Ot 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 12/13/2018 FRANCINE, BOBAN N Ot G47.33 OBSTRUCTIVE SLEEP APNEA (ADULT) (PEDIATR 12/13/2018 FRANCINE, BOBAN N Ot I12.9 HYPERTENSIVE CHRONIC KIDNEY DISEASE W ST 12/13/2018 FRANCINE, BOBAN N Ot I25.10 ATHSCL HEART DISEASE OF [place] CORONARY 12/13/2018 FRANCINE, BOBAN N Ot J45.909 UNSPECIFIED ASTHMA, UNCOMPLICATED 12/13/2018 FRANCINE, BOBAN N Ot K25.9 GASTRIC ULCER, UNSP ACUTE OR CHRONIC, 12/13/2018 FRANCINE, BOBAN N Ot K29.50 UNSPECIFIED CHRONIC GASTRITIS WITHOUT BL 12/13/2018 FRANCINE, BOBAN N Ot N18.3 CHRONIC KIDNEY DISEASE, STAGE 3 (MODERAT 12/13/2018 FRANCINE, BOBAN N Ot Z79.4 SHIP ENGINEER (CURRENT) USE OF INSULIN 12/13/2018 FRANCINE, BOBAN N Ot Z79.82 LONGTERM (CURRENT) USE OF ASPIRIN 12/18/2018 FRANCINE, BOBAN N Ot D50.9 IRON DEFICIENCY ANEMIA, UNSPECIFIED 12/18/2018 FRANCINE, BOBAN N Ot E03.9 HYPOTHYROIDISM, UNSPECIFIED 12/18/2018 FRANCINE, BOBAN N Ot 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 12/18/2018 FRANCINE, BOBAN N Ot G47.33 OBSTRUCTIVE SLEEP APNEA (ADULT) (PEDIATR 12/18/2018 FRANCINE, BOBAN N Ot I12.9 HYPERTENSIVE CHRONIC KIDNEY DISEASE W ST 12/18/2018 FRANCINE, BOBAN N Ot I25.10 ATHSCL HEART DISEASE OF [place] CORONARY 12/18/2018 FRANCINE, BOBAN N Ot J45.909 UNSPECIFIED ASTHMA, UNCOMPLICATED 12/18/2018 FRANCINE, BOBAN N Ot K25.9 GASTRIC ULCER, UNSP ACUTE OR CHRONIC, 12/18/2018 FRANCINE, BOBAN N Ot K29.50 UNSPECIFIED CHRONIC GASTRITIS WITHOUT BL 12/18/2018 FRANCINE, BOBAN N Ot N18.3 CHRONIC KIDNEY DISEASE, STAGE 3 (MODERAT 12/18/2018 FRANCINE, NORA Anna Ot Z79.4 LONGTERM (CURRENT) USE OF INSULIN 12/18/2018 FRANCINE, NORA Anna Ot Z79.82 LONGTERM (CURRENT) USE OF ASPIRIN 12/31/2018 EMERY LOUISE Abdulkadir RODRIGUEZ Ot N30.00 ACUTE CYSTITIS WITHOUT HEMATURIA 12/31/2018 DAVIN DODSON MD Ot E03.9 HYPOTHYROIDISM, UNSPECIFIED 12/31/2018 DAVIN DODSON MD Ot E11.9 TYPE 2 DIABETES MELLITUS WITHOUT COMPLIC 12/31/2018 DAVIN DODSON MD Ot E78.00 PURE HYPERCHOLESTEROLEMIA, UNSPECIFIED 12/31/2018 DAVIN DODSON MD Ot F32.9 MAJOR DEPRESSIVE DISORDER, SINGLE EPISOD 12/31/2018 DAVIN DODSON MD Ot F41.9 ANXIETY DISORDER, UNSPECIFIED 12/31/2018 DAVIN DODSON MD Ot G47.30 SLEEP APNEA, UNSPECIFIED 12/31/2018 DAVIN DODSON MD Ot I10 ESSENTIAL (PRIMARY) HYPERTENSION 12/31/2018 DAVIN DODSON MD Ot I25.10 ATHSCL HEART DISEASE OF [place] CORONARY 12/31/2018 DAVIN DODSON MD Ot J44.9 CHRONIC OBSTRUCTIVE PULMONARY DISEASE, U 12/31/2018 DAVIN DODSON MD Ot N39.0 URINARY TRACT INFECTION, SITE NOT SPECIF 12/31/2018 DAVIN DODSON MD Ot R10.84 GENERALIZED ABDOMINAL PAIN 12/31/2018 DAVIN DODSON MD Ot R11.2 NAUSEA WITH VOMITING, UNSPECIFIED 12/31/2018 DAVIN DODSON MD Ot R19.7 DIARRHEA, UNSPECIFIED 12/31/2018 DAVIN DODSON MD Ot Z79.4 SHIP ENGINEER (CURRENT) USE OF INSULIN 12/31/2018 DAVIN DDOSON MD Ot Z79.51 SHIP ENGINEER (CURRENT) USE OF INHALED STERO 12/31/2018 DAVIN DODSON MD Ot Z79.82 LONGTERM (CURRENT) USE OF ASPIRIN 12/31/2018 DAVIN DODSON MD, Ot Z82.49 FAMILY HX OF ISCHEM HEART DIS AND OTH DI 12/31/2018 DAVIN DODSON MD, Ot Z87.440 PERSONAL HISTORY OF URINARY (TRACT) INFE 12/31/2018 DAVIN DODSON MD, Ot Z88.0 ALLERGY STATUS TO PENICILLIN 12/31/2018 DAVIN DODSON MD Ot Z88.5 ALLERGY STATUS TO NARCOTIC AGENT STATUS 12/31/2018 DAVIN DODSON MD, Ot Z88.6 ALLERGY STATUS TO ANALGESIC AGENT STATUS 12/31/2018 DAVIN DODSON MD, Ot Z88.8 ALLERGY STATUS TO OTH DRUG/MEDS/BIOL SUB 12/31/2018 DAVIN DODSON MD, Ot Z90.49 ACQUIRED ABSENCE OF OTHER SPECIFIED PART 12/31/2018 DAVIN DODSON MD, Ot Z95.5 PRESENCE OF CORONARY ANGIOPLASTY IMPLANT 12/31/2018 DAVIN DODSON MD Ot Z99.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 01/02/2019 KIYA HERMAN MD Ot Z29. 8 ENCOUNTER FOR OTHER SPECIFIED PROPHYLACT 01/02/2019 KIYA HERMAN MD Ot Z29. 8 ENCOUNTER FOR OTHER SPECIFIED PROPHYLACT 01/03/2019 LOUISE LAND EAP CONSULTANT Ot N30.00 ACUTE CYSTITIS WITHOUT HEMATURIA 01/04/2019 DAVIN DODSON MD Ot E03.9 HYPOTHYROIDISM, UNSPECIFIED 01/04/2019 DAVIN DODSON MD Ot E11.9 TYPE 2 DIABETES MELLITUS WITHOUT COMPLIC 01/04/2019 DAVIN DODSON MD Ot E78.00 PURE HYPERCHOLESTEROLEMIA, UNSPECIFIED 01/04/2019 DAVIN DODSON MD Ot F32.9 MAJOR DEPRESSIVE DISORDER, SINGLE EPISOD 01/04/2019 DAVIN DODSON MD, Ot F41.9 ANXIETY DISORDER, UNSPECIFIED 01/04/2019 DAVIN DODSON MD, Ot G47.30 SLEEP APNEA, UNSPECIFIED 01/04/2019 DAVIN DODSON MD Ot I10 ESSENTIAL (PRIMARY) HYPERTENSION 01/04/2019 DAVIN DODSON MD Ot I25.10 ATHSCL HEART DISEASE OF [place] CORONARY 01/04/2019 DAVIN DODSON MD, Ot J44.9 CHRONIC OBSTRUCTIVE PULMONARY DISEASE, U 01/04/2019 DAVIN DODSON MD, Ot N39.0 URINARY TRACT INFECTION, SITE NOT SPECIF 01/04/2019 DAVIN DODSON MD, Ot R10.84 GENERALIZED ABDOMINAL PAIN 01/04/2019 DAVIN DODSON MD, Ot R11.2 NAUSEA WITH VOMITING, UNSPECIFIED 01/04/2019 DAVIN DODSON MD, Ot R19.7 DIARRHEA, UNSPECIFIED 01/04/2019 DAVIN DODSON MD, Ot Z79.4 LONGTERM (CURRENT) USE OF INSULIN 01/04/2019 DAVIN DODSON MD, Ot Z79.51 SHIP ENGINEER (CURRENT) USE OF INHALED STERO 01/04/2019 DAVIN DODSON MD, Ot Z79.82 LONGTERM (CURRENT) USE OF ASPIRIN 01/04/2019 DAVIN DODSON [...] OF CORONARY ANGIOPLASTY IMPLANT 01/04/2019 DAVIN DODSON MD Ot Z99.89 DEPENDENCE ON [...] APRN Ot I25.10 ATHSCL HEART DISEASE OF [place] CORONARY 02/28/2019 MAGDY ZIEGLER APRN Ot J44 .9 CHRONIC OBSTRUCTIVE PULMONARY DISEASE, U 02/28/2019 MAGDY ZIEGLER APRN Ot R10.11 RIGHT UPPER QUADRANT PAIN 02/28/2019 MAGDY ZIEGLER APRN Ot Z79 .4 SHIP ENGINEER (CURRENT) USE OF INSULIN 02/28/2019 MAGDY ZIEGLER APRN Ot Z79.51 SHIP ENGINEER (CURRENT) USE OF INHALED STERO 02/28/2019 MAGDY ZIEGLER APRN Ot Z79.82 SHIP ENGINEER (CURRENT) USE OF ASPIRIN 02/28/2019 MAGDY ZIEGLER [...] .8 ALLERGY STATUS TO OTH DRUG/MEDS/BIOL SUB 02/28/2019 MAGDY ZIEGLER APRN Ot [...] APRN Ot I25.10 ATHSCL HEART DISEASE OF [place] CORONARY 03/03/2019 MAGDY ZIEGLER APRN Ot J44 .9 CHRONIC OBSTRUCTIVE PULMONARY DISEASE, U 03/03/2019 MAGDY ZIEGLER APRN Ot R10.11 RIGHT UPPER QUADRANT PAIN 03/03/2019 MAGDY ZIEGLER APRN Ot Z79 .4 SHIP ENGINEER (CURRENT) USE OF INSULIN 03/03/2019 MAGDY ZIEGLER APRN Ot Z79.51 LONGTERM (CURRENT) USE OF INHALED STERO 03/03/2019 MAGDY ZIEGLER APRN Ot Z79.82 SHIP ENGINEER (CURRENT) USE OF ASPIRIN 03/03/2019 MAGDY ZIEGLER [...] APRN Ot I25.10 ATHSCL HEART DISEASE OF [place] CORONARY 03/06/2019 MAGDY ZIEGLER APRN Ot J44 .9 CHRONIC OBSTRUCTIVE PULMONARY DISEASE, U 03/06/2019 MAGDY ZIEGLER APRN Ot R10.11 RIGHT UPPER QUADRANT PAIN 03/06/2019 MAGDY ZIEGLER APRN Ot Z79 .4 SHIP ENGINEER (CURRENT) USE OF INSULIN 03/06/2019 MAGDY ZIEGLER APRN Ot Z79.51 LONGTERM (CURRENT) USE OF INHALED STERO 03/06/2019 MAGDY ZIEGLER APRN Ot Z79.82 SHIP ENGINEER (CURRENT) USE OF ASPIRIN 03/06/2019 MAGDY ZIEGLER APRN Ot Z82.49 FAMILY HX OF ISCHEM HEART DIS AND OTH DI 03/06/2019 MAGDY ZIEGLER APRN Ot Z87.440 PERSONAL HISTORY OF URINARY (TRACT) INFE 03/06/2019 MAGDY ZIEGLER APRN Ot Z88 .0 ALLERGY STATUS TO PENICILLIN 03/06/2019 AMGDY ZIEGLER APRN Ot Z88 .5 ALLERGY STATUS TO NARCOTIC AGENT STATUS 03/06/2019 MAGDY ZIEGLER APRN Ot Z88 .6 ALLERGY STATUS TO ANALGESIC AGENT STATUS 03/06/2019 MAGDY ZIEGLER APRN Ot Z88 .8 ALLERGY STATUS TO OTH DRUG/MEDS/BIOL SUB 03/06/2019 MAGDY ZIEGLER APRN Ot Z90.49 ACQUIRED ABSENCE OF OTHER SPECIFIED PART 03/06/2019 MAGDY ZIEGLER EAP CONSULTANT Ot Z95 .5 PRESENCE OF CORONARY ANGIOPLASTY IMPLANT 03/22/2019 BATSHEVA LARKIN, KIYA R Ot 599. 0 URIN TRACT INFECTION NOS 03/22/2019 MARIPOSA SANCHEZ EAP CONSULTANT Ot J45.909 UNSPECIFIED ASTHMA, UNCOMPLICATED 03/22/2019 MARIPOSA SANCHEZ EAP CONSULTANT Ot J98.4 OTHER DISORDERS OF LUNG 03/22/2019 MARIPOSA SANCHEZ APRN Ot R06.02 SHORTNESS OF BREATH 03/22/2019 KIYA HERMAN MD R Ot D64. 9 ANEMIA, UNSPECIFIED 03/22/2019 MARIPOSA SANCHEZ APRN Ot J98.4 OTHER DISORDERS OF LUNG 03/22/2019 MARIPOSA SANCHEZ APRN Ot R06.02 SHORTNESS OF BREATH 03/22/2019 MARIPOSA SANCHEZ APRN Ot R09.02 HYPOXEMIA 03/22/2019 SHARLA DOWNS MD Ot E03.9 HYPOTHYROIDISM, UNSPECIFIED 03/22/2019 SHARLA DOWNS MD Ot E11.9 TYPE 2 DIABETES MELLITUS WITHOUT COMPLIC 03/22/2019 SHARLA DOWNS MD Ot E78.00 PURE HYPERCHOLESTEROLEMIA, UNSPECIFIED 03/22/2019 SHARLA DOWNS MD Ot F32.9 MAJOR DEPRESSIVE DISORDER, SINGLE EPISOD 03/22/2019 SHARLA DOWNS MD Ot F41.9 ANXIETY DISORDER, UNSPECIFIED 03/22/2019 SHARLA DOWNS MD Ot G43.909 MIGRAINE, UNSP, NOT INTRACTABLE, WITHOUT 03/22/2019 SHARLA DOWNS MD Ot G47.30 SLEEP APNEA, UNSPECIFIED 03/22/2019 SHARLA DOWNS MD Ot I10 ESSENTIAL (PRIMARY) HYPERTENSION 03/22/2019 SHARLA DOWNS MD Ot I25.10 ATHSCL HEART DISEASE OF [place] CORONARY 03/22/2019 SHARLA DOWNS MD Ot J44.9 CHRONIC OBSTRUCTIVE PULMONARY DISEASE, U 03/22/2019 SHARLA DOWNS MD Ot R07.89 OTHER CHEST PAIN 03/22/2019 SHARLA DOWNS MD Ot R51 HEADACHE 03/22/2019 SHARLA DOWNS MD Ot Z79.4 SHIP ENGINEER (CURRENT) USE OF INSULIN 03/22/2019 SHARLA DOWNS MD, Ot Z79.51 SHIP ENGINEER (CURRENT) USE OF INHALED STERO 03/22/2019 SHARLA DOWNS MD, Ot Z79.82 SHIP ENGINEER (CURRENT) USE OF ASPIRIN 03/22/2019 SHARLA DOWNS MD, Ot Z82.49 FAMILY HX OF ISCHEM HEART DIS AND OTH DI 03/22/2019 SHARLA DOWNS MD, Ot Z87.440 PERSONAL HISTORY OF URINARY (TRACT) INFE 03/22/2019 SHARLA DOWNS MD, Ot Z88.0 ALLERGY STATUS TO PENICILLIN 03/22/2019 SHARLA DOWNS MD, Ot Z88.5 ALLERGY STATUS TO NARCOTIC AGENT STATUS 03/22/2019 SHARLA DOWNS MD, Ot Z88.8 ALLERGY STATUS TO OTH DRUG/MEDS/BIOL SUB 03/22/2019 SHARLA DOWNS MD, Ot Z90.49 ACQUIRED ABSENCE OF OTHER SPECIFIED PART 03/22/2019 SHARLA DOWNS MD, Ot Z95.5 PRESENCE OF [...] UNSP, NOT INTRACTABLE, WITHOUT 03/25/2019 SHARLA DOWNS MD, Ot G47.30 SLEEP APNEA, UNSPECIFIED 03/25/2019 SHARLA DOWNS MD, Ot I10 ESSENTIAL (PRIMARY) HYPERTENSION 03/25/2019 SHARLA DOWNS MD, Ot I25.10 ATHSCL HEART DISEASE OF [place] CORONARY 03/25/2019 SHARLA DOWNS MD, Ot J44.9 CHRONIC OBSTRUCTIVE PULMONARY DISEASE, U 03/25/2019 SHARLA DOWNS MD Ot R07.89 OTHER CHEST PAIN 03/25/2019 SHARLA DOWNS MD Ot R51 HEADACHE 03/25/2019 SHARLA DOWNS MD, Ot Z79.4 LONGTERM (CURRENT) USE OF INSULIN 03/25/2019 SHARLA DOWNS MD Ot Z79.51 SHIP ENGINEER (CURRENT) USE OF INHALED STERO 03/25/2019 SHARLA DOWNS MD, Ot Z79.82 SHIP ENGINEER (CURRENT) USE OF ASPIRIN 03/25/2019 SHARLA DOWNS MD, Ot Z82.49 FAMILY HX OF ISCHEM HEART DIS AND OTH DI 03/25/2019 SHARLA DOWNS MD, Ot Z87.440 PERSONAL HISTORY OF URINARY (TRACT) INFE 03/25/2019 SHARLA DOWNS MD, Ot Z88.0 ALLERGY STATUS TO PENICILLIN 03/25/2019 SHARLA DOWNS MD, Ot Z88.5 ALLERGY STATUS TO NARCOTIC AGENT STATUS 03/25/2019 SHARLA DOWNS MD, Ot Z88.8 ALLERGY STATUS TO OTH DRUG/MEDS/BIOL SUB 03/25/2019 SHARLA DOWNS MD Ot Z90.49 ACQUIRED ABSENCE OF OTHER SPECIFIED PART 03/25/2019 SHARLA DOWNS MD Ot Z95.5 PRESENCE OF CORONARY ANGIOPLASTY IMPLANT 03/25/2019 SHARLA DOWNS MD Ot Z99.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 03/28/2019 SHARLA DOWNS MD Ot E03.9 HYPOTHYROIDISM, UNSPECIFIED 03/28/2019 SHARLA DOWNS MD Ot E11.9 TYPE 2 DIABETES MELLITUS WITHOUT COMPLIC 03/28/2019 SHARLA DOWNS MD Ot E78.00 PURE HYPERCHOLESTEROLEMIA, UNSPECIFIED 03/28/2019 SHARLA DOWNS MD Ot F32.9 MAJOR DEPRESSIVE DISORDER, SINGLE EPISOD 03/28/2019 SHARLA DOWNS MD, Ot F41.9 ANXIETY DISORDER, UNSPECIFIED 03/28/2019 SHARLA DOWNS MD Ot G43.909 MIGRAINE, UNSP, NOT INTRACTABLE, WITHOUT 03/28/2019 SHARLA DOWNS MD Ot G47.30 SLEEP APNEA, UNSPECIFIED 03/28/2019 SHARLA DOWNS MD Ot I10 ESSENTIAL (PRIMARY) HYPERTENSION 03/28/2019 SHARLA DOWNS MD, Ot I25.10 ATHSCL HEART DISEASE OF [place] CORONARY 03/28/2019 SHALRA DOWNS MD, Ot J44.9 CHRONIC OBSTRUCTIVE PULMONARY DISEASE, U 03/28/2019 SHARLA DOWNS MD, Ot R07.89 OTHER CHEST PAIN 03/28/2019 SHARLA DOWNS MD, Ot R51 HEADACHE 03/28/2019 SHARLA DOWNS MD, Ot Z79.4 LONGTERM (CURRENT) USE OF INSULIN 03/28/2019 SHARLA DOWNS MD, Ot Z79.51 LONGTERM (CURRENT) USE OF INHALED STERO 03/28/2019 SHARLA DOWNS MD, Ot Z79.82 LONGTERM (CURRENT) USE OF ASPIRIN 03/28/2019 SHARLA DOWNS MD, Ot Z82.49 FAMILY HX [...] PRESENCE OF CORONARY ANGIOPLASTY IMPLANT 03/28/2019 SHARLA DOWNS MD Ot Z99.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 03/30/2019 NORA ESCAMILLA Ot D50.9 IRON DEFICIENCY ANEMIA, UNSPECIFIED 03/30/2019 NORA ESCAMILLA Ot E03.9 HYPOTHYROIDISM, UNSPECIFIED 03/30/2019 NORA ESCAMILLA Ot 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 03/30/2019 NORA ESCAMILLA Ot G47.33 OBSTRUCTIVE SLEEP APNEA (ADULT) (PEDIATR 03/30/2019 NORA ESCAMILLA Ot I12.9 HYPERTENSIVE CHRONIC KIDNEY DISEASE W ST 03/30/2019 NORA ESCAMILLA Ot I25.10 ATHSCL HEART DISEASE OF [place] CORONARY 03/30/2019 NORA ESCAMILLA Wilfrido Ot J45.909 UNSPECIFIED ASTHMA, UNCOMPLICATED 03/30/2019 NORA ESCAMILLA Wilfrido Ot K25.9 GASTRIC ULCER, UNSP ACUTE OR CHRONIC, 03/30/2019 NORA ESCAMILLA Wilfrido Ot K29.50 UNSPECIFIED CHRONIC GASTRITIS WITHOUT BL 03/30/2019 FRANCINE SABRINANAZARIO Wilfrido Ot N18.3 CHRONIC KIDNEY DISEASE, STAGE 3 (MODERAT 03/30/2019 NORA ESCAMILLA Wilfrido Ot Z79.4 SHIP ENGINEER (CURRENT) USE OF INSULIN 03/30/2019 FRANCINE, NORA Anna Ot Z79.82 SHIP ENGINEER (CURRENT) USE OF ASPIRIN 04/11/2019 TO GRAY MD Ot A08. 4 VIRAL INTESTINAL INFECTION, UNSPECIFIED 04/11/2019 TO GRAY MD Ot E03. 9 HYPOTHYROIDISM, UNSPECIFIED 04/11/2019 TO GRAY MD Ot E11. 9 TYPE 2 DIABETES MELLITUS WITHOUT COMPLIC 04/11/2019 TO GRAY MD Ot E78. 00 PURE HYPERCHOLESTEROLEMIA, UNSPECIFIED 04/11/2019 TO GRAY MD Ot F32. 9 MAJOR DEPRESSIVE DISORDER, SINGLE EPISOD 04/11/2019 TO GRAY MD Ot F41. 9 ANXIETY DISORDER, UNSPECIFIED 04/11/2019 TO GRAY MD Ot G47. 30 SLEEP APNEA, UNSPECIFIED 04/11/2019 TO GRAY MD Ot I10 ESSENTIAL (PRIMARY) HYPERTENSION 04/11/2019 TO GRAY MD Ot I25. 10 ATHSCL HEART DISEASE OF [place] CORONARY 04/11/2019 TO GRAY MD Ot M79. 18 MYALGIA, OTHER SITE 04/11/2019 TO GRAY MD Ot R51 HEADACHE 04/11/2019 TO GRAY MD Ot Z79. 4 LONGTERM (CURRENT) USE OF INSULIN 04/11/2019 TO GRAY MD Ot Z79. 51 SHIP ENGINEER (CURRENT) USE OF INHALED STERO 04/11/2019 TO GRAY MD Ot Z79. 82 SHIP ENGINEER (CURRENT) USE OF ASPIRIN 04/11/2019 TO GRAY MD Ot Z82. 49 FAMILY HX OF ISCHEM HEART DIS AND OTH DI 04/11/2019 TO GRAY MD Ot Z88. 0 ALLERGY STATUS TO PENICILLIN 04/11/2019 TO GRAY MD, Ot Z88. 5 ALLERGY STATUS TO NARCOTIC AGENT STATUS 04/11/2019 TO GRAY MD, Ot Z88. 8 ALLERGY STATUS TO OTH DRUG/MEDS/BIOL SUB 04/11/2019 TO GRAY MD, Ot Z95. 5 PRESENCE OF CORONARY ANGIOPLASTY IMPLANT 04/11/2019 TO GRAY MD Ot Z99. 81 DEPENDENCE ON SUPPLEMENTAL OXYGEN 04/15/2019 NORA ESCAMILLA Ot D50.9 IRON DEFICIENCY ANEMIA, UNSPECIFIED 04/15/2019 NORA ESCAMILLA Ot E03.9 HYPOTHYROIDISM, UNSPECIFIED 04/15/2019 NORA ESCAMILLA Ot 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 04/15/2019 NORA ESCAMILLA Ot G47.33 OBSTRUCTIVE SLEEP APNEA (ADULT) (PEDIATR 04/15/2019 NORA ESCAMILLA Ot I12.9 HYPERTENSIVE CHRONIC KIDNEY DISEASE W ST 04/15/2019 NORA ESCAMILLA Ot I25.10 ATHSCL HEART DISEASE OF [place] CORONARY 04/15/2019 NORA ESCAMILLA Ot J45.909 UNSPECIFIED ASTHMA, UNCOMPLICATED 04/15/2019 NORA ESCAMILLA Ot K25.9 GASTRIC ULCER, UNSP ACUTE OR CHRONIC, 04/15/2019 NORA ESCAMILLA Ot K29.50 UNSPECIFIED CHRONIC GASTRITIS WITHOUT BL 04/15/2019 NORA ESCAMILLA Ot N18.3 CHRONIC KIDNEY DISEASE, STAGE 3 (MODERAT 04/15/2019 NORA ESCAMILLA Ot Z79.4 LONGTERM (CURRENT) USE OF INSULIN 04/15/2019 NORA ESCAMILLA Ot Z79.82 LONGTERM (CURRENT) USE OF ASPIRIN 04/17/2019 TO GRAY [...] 9 ANXIETY DISORDER, UNSPECIFIED 04/17/2019 TO GRAY MD, Ot G47. 30 SLEEP APNEA, UNSPECIFIED 04/17/2019 TO GRAY MD Ot I10 ESSENTIAL (PRIMARY) HYPERTENSION 04/17/2019 TO GRAY MD Ot I25. 10 ATHSCL HEART DISEASE OF [place] CORONARY 04/17/2019 TO GRAY MD, Ot M79. 18 MYALGIA, OTHER SITE 04/17/2019 TO GRAY MD Ot R51 HEADACHE 04/17/2019 TO GRAY MD, Ot Z79. 4 LONGTERM (CURRENT) USE OF INSULIN 04/17/2019 TO GRAY MD, Ot Z79. 51 LONGTERM (CURRENT) USE OF INHALED STERO 04/17/2019 TO GRAY MD, Ot Z79. 82 LONGTERM (CURRENT) USE OF ASPIRIN 04/17/2019 TO GRAY MD, Ot Z82. 49 FAMILY HX OF ISCHEM HEART DIS AND OTH DI 04/17/2019 TO GRAY MD, Ot Z88. 0 ALLERGY STATUS TO PENICILLIN 04/17/2019 TO GRAY MD, Ot Z88. 5 ALLERGY STATUS TO NARCOTIC AGENT STATUS 04/17/2019 TO GRAY MD, Ot Z88. 8 ALLERGY STATUS TO OT DRUG/MEDS/BIOL SUB 04/17/2019 TO GRAY MD Ot Z95. 5 PRESENCE OF CORONARY ANGIOPLASTY IMPLANT 04/17/2019 TO GRAY MD Ot Z99. 81 DEPENDENCE ON SUPPLEMENTAL OXYGEN 05/03/2019 NORA ESCAMILLA Ot D50.9 IRON DEFICIENCY ANEMIA, UNSPECIFIED 05/03/2019 NORA ESCAMILLA Ot E03.9 HYPOTHYROIDISM, UNSPECIFIED 05/03/2019 NORA ESCAMILLA Ot 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 05/03/2019 NORA ESCAMILLA Ot G47.33 OBSTRUCTIVE SLEEP APNEA (ADULT) (PEDIATR 05/03/2019 NORA ESCAMILLA Ot I12.9 HYPERTENSIVE CHRONIC KIDNEY DISEASE W ST 05/03/2019 NORA ESCAMILLA Ot I25.10 ATHSCL HEART DISEASE OF [place] CORONARY 05/03/2019 NORA ESCAMILLA Ot J45.909 UNSPECIFIED ASTHMA, UNCOMPLICATED 05/03/2019 FRANCINENORA Ot K25.9 GASTRIC ULCER, UNSP ACUTE OR CHRONIC, 05/03/2019 NORA ESCAMILLA Ot K29.50 UNSPECIFIED CHRONIC GASTRITIS WITHOUT BL 05/03/2019 NORA ESCAMILLA Ot N18.3 CHRONIC KIDNEY DISEASE, STAGE 3 (MODERAT 05/03/2019 NORA ESCAMILLA Ot Z79.4 LONGTERM (CURRENT) USE OF INSULIN 05/03/2019 NORA ESCAMILLA Ot Z79.82 SHIP ENGINEER (CURRENT) USE OF ASPIRIN 05/14/2019 SHARLA DOWNS MD, Ot E03.9 HYPOTHYROIDISM, UNSPECIFIED 05/14/2019 SHARLA DOWNS MD, Ot E11.9 TYPE 2 DIABETES MELLITUS WITHOUT COMPLIC 05/14/2019 SHARLA DOWNS MD, Ot E78.00 PURE HYPERCHOLESTEROLEMIA, UNSPECIFIED 05/14/2019 SHARLA DOWNS MD, Ot F32.9 MAJOR DEPRESSIVE DISORDER, SINGLE EPISOD 05/14/2019 SHARLA DOWNS MD, Ot F41.9 ANXIETY DISORDER, UNSPECIFIED 05/14/2019 SHARLA DOWNS MD Ot G47.30 SLEEP APNEA, UNSPECIFIED 05/14/2019 SHARLA DOWNS MD, Ot I10 ESSENTIAL (PRIMARY) HYPERTENSION 05/14/2019 SHARLA DOWNS MD, Ot I25.10 ATHSCL HEART DISEASE OF [place] CORONARY 05/14/2019 SHARLA DOWNS MD, Ot J06.9 ACUTE UPPER RESPIRATORY INFECTION, UNSPE 05/14/2019 SHARLA DOWNS MD, Ot J44.9 CHRONIC OBSTRUCTIVE PULMONARY DISEASE, U 05/14/2019 SHARLA DOWNS MD Ot R06.02 SHORTNESS OF BREATH 05/14/2019 SHARLA DOWNS MD, Ot R59.9 ENLARGED LYMPH NODES, UNSPECIFIED 05/14/2019 SHARLA DOWNS MD, Ot Z79.4 SHIP ENGINEER (CURRENT) USE OF INSULIN 05/14/2019 SHARLA DOWNS MD Ot Z79.51 LONGTERM (CURRENT) USE OF INHALED STERO 05/14/2019 SHARLA DOWNS MD, Ot Z79.82 LONGTERM (CURRENT) USE OF ASPIRIN 05/14/2019 SHARLA DOWNS MD, Ot Z82.49 FAMILY HX OF ISCHEM HEART DIS AND OTH DI 05/14/2019 SHARLA DOWNS MD, Ot Z88.0 ALLERGY STATUS TO PENICILLIN 05/14/2019 SHARLA DOWNS MD, Ot Z88.5 ALLERGY STATUS TO NARCOTIC AGENT STATUS 05/14/2019 SHARLA DOWNS MD, Ot Z88.8 ALLERGY STATUS TO OTH DRUG/MEDS/BIOL SUB 05/14/2019 SHARLA DOWNS MD, Ot Z95.5 PRESENCE OF CORONARY ANGIOPLASTY IMPLANT 05/14/2019 SHARLA DOWNS MD, Ot Z99.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 05/15/2019 KIYA HERMAN MD R Ot 599. 0 URIN TRACT INFECTION NOS 05/15/2019 MARIPOSA SANCHEZ APRN Ot J45.909 UNSPECIFIED ASTHMA, UNCOMPLICATED 05/15/2019 MARIPOSA SANCHEZ APRN Ot J98.4 OTHER DISORDERS OF LUNG 05/15/2019 MARIPOSA SANCHEZ APRN Ot R06.02 SHORTNESS OF BREATH 05/15/2019 KIYA HERMAN MD Ot D64. 9 ANEMIA, UNSPECIFIED 05/15/2019 MARIPOSA SANCHEZ APRN Ot J98.4 OTHER DISORDERS OF LUNG 05/15/2019 MARIPOSA SANCHEZ APRN Ot R06.02 SHORTNESS OF BREATH 05/15/2019 MARIPOSA SANCHEZ APRN Ot R09.02 HYPOXEMIA 05/15/2019 SHARLA DOWNS MD, Ot E03.9 HYPOTHYROIDISM, UNSPECIFIED 05/15/2019 SHARLA DOWNS MD, Ot E11.9 TYPE 2 DIABETES MELLITUS WITHOUT COMPLIC 05/15/2019 SHARLA DOWNS MD, Ot E78.00 PURE HYPERCHOLESTEROLEMIA, UNSPECIFIED 05/15/2019 SHARLA DOWNS MD, Ot F32.9 MAJOR DEPRESSIVE DISORDER, SINGLE EPISOD 05/15/2019 SHARLA DOWNS MD, Ot F41.9 ANXIETY DISORDER, UNSPECIFIED 05/15/2019 SHARLA DOWNS MD, Ot G47.30 SLEEP APNEA, UNSPECIFIED 05/15/2019 SHARLA DOWNS MD, Ot I10 ESSENTIAL (PRIMARY) HYPERTENSION 05/15/2019 SHARLA DOWNS MD, Ot I25.10 ATHSCL HEART DISEASE OF [place] CORONARY 05/15/2019 SHARLA DOWNS MD, Ot J06.9 ACUTE UPPER RESPIRATORY INFECTION, UNSPE 05/15/2019 SHARLA DOWNS MD, Ot J44.9 CHRONIC OBSTRUCTIVE PULMONARY DISEASE, U 05/15/2019 SHARLA DOWNS MD, Ot R05 COUGH 05/15/2019 SHARLA DOWNS MD, Ot Z79.4 LONGTERM (CURRENT) USE OF INSULIN 05/15/2019 SHARLA DOWNS MD, Ot Z79.51 LONGTERM (CURRENT) USE OF INHALED STERO 05/15/2019 SHARLA DOWNS MD, Ot Z79.82 LONGTERM (CURRENT) USE OF ASPIRIN 05/15/2019 SHARLA DOWNS MD, Ot Z88.0 ALLERGY STATUS TO PENICILLIN 05/15/2019 SHARLA DOWNS MD, Ot Z88.5 ALLERGY STATUS TO NARCOTIC AGENT STATUS 05/15/2019 SHARLA DOWNS MD, Ot Z88.8 ALLERGY STATUS TO OTH DRUG/MEDS/BIOL SUB 05/15/2019 SHARLA DOWNS MD, Ot Z95.5 PRESENCE OF CORONARY ANGIOPLASTY IMPLANT 05/15/2019 SHARLA DOWNS MD, Ot Z99.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 06/12/2019 NORA ESCAMILLA Ot D50.9 IRON DEFICIENCY ANEMIA, UNSPECIFIED 06/12/2019 NORA ESCAMILLA Ot E03.9 HYPOTHYROIDISM, UNSPECIFIED 06/12/2019 NORA ESCAMILLA Ot 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 06/12/2019 NORA ESCAMILLA Ot G47.33 OBSTRUCTIVE SLEEP APNEA (ADULT) (PEDIATR 06/12/2019 NORA ESCAMILLA Ot I12.9 HYPERTENSIVE CHRONIC KIDNEY DISEASE W ST 06/12/2019 NORA ESCAMILLA Ot I25.10 ATHSCL HEART DISEASE OF [place] CORONARY 06/12/2019 NORA ESCAMILLA Ot J45.909 UNSPECIFIED ASTHMA, UNCOMPLICATED 06/12/2019 NORA ESCAMILLA Ot K25.9 GASTRIC ULCER, UNSP ACUTE OR CHRONIC, 06/12/2019 NORA ESCAMILLA Ot K29.50 UNSPECIFIED CHRONIC GASTRITIS WITHOUT BL 06/12/2019 FRANCINE, BOBAN N Ot N18.3 CHRONIC KIDNEY DISEASE, STAGE 3 (MODERAT 06/12/2019 NORA ESCAMILLA N Ot Z79.4 LONGTERM (CURRENT) USE OF INSULIN 06/12/2019 FRANCINESABRINANAZARIO N Ot Z79.82 SHIP ENGINEER (CURRENT) USE OF ASPIRIN 06/14/2019 FRANCINESABRINANAZARIO N Ot D50.9 IRON DEFICIENCY ANEMIA, UNSPECIFIED 06/14/2019 FRANCINESABRINANAZARIO N Ot E03.9 HYPOTHYROIDISM, UNSPECIFIED 06/14/2019 FRANCINESABRINANAZARIO N Ot 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 06/14/2019 FRANCINESABRINANAZARIO N Ot G47.33 OBSTRUCTIVE SLEEP APNEA (ADULT) (PEDIATR 06/14/2019 FRANCINENORA N Ot I12.9 HYPERTENSIVE CHRONIC KIDNEY DISEASE W ST 06/14/2019 FRANCINESABRINANAZARIO N Ot I25.10 ATHSCL HEART DISEASE OF [place] CORONARY 06/14/2019 NORA ESCAMILLA N Ot J45.909 UNSPECIFIED ASTHMA, UNCOMPLICATED 06/14/2019 FRANCINESABRINANAZARIO N Ot K25.9 GASTRIC ULCER, UNSP ACUTE OR CHRONIC, 06/14/2019 FRANCINE NORA N Ot K29.50 UNSPECIFIED CHRONIC GASTRITIS WITHOUT BL 06/14/2019 FRANCINE NORA N Ot N18.3 CHRONIC KIDNEY DISEASE, STAGE 3 (MODERAT 06/14/2019 FRANCINE NORA N Ot Z79.4 SHIP ENGINEER (CURRENT) USE OF INSULIN 06/14/2019 FRANCINE NORA N Ot Z79.82 LONGTERM (CURRENT) USE OF ASPIRIN 08/01/2019 Fredrick Wallis W 786.52 PAINFUL RESPIRATION 08/01/2019 Fredrick Wallis R07.81 PLEURODYNIA 09/06/2019 BATSHEVA LARKIN, KIYA R Ot 599. 0 URIN TRACT INFECTION NOS 09/06/2019 MARIPOSA SANCHEZ EAP CONSULTANT Ot J45.909 UNSPECIFIED ASTHMA, UNCOMPLICATED 09/06/2019 MARIPOSA SANCHEZ EAP CONSULTANT Ot J98.4 OTHER DISORDERS OF LUNG 09/06/2019 MARIPOSA SANCHEZ EAP CONSULTANT Ot R06.02 SHORTNESS OF BREATH 09/06/2019 BATSHEVA LARKIN, KIYA R Ot D64. 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 09/06/2019 Ot G47.33 OBS TRUCTIVE SLEEP APNEA (ADULT) (PEDIATR 09/06/2019 Ot I12.9 HYPE RTENSIVE CHRONIC KIDNEY DISEASE W ST 09/06/2019 Ot I25.10 ATH SCL HEART DISEASE OF [place] CORONARY 09/06/2019 Ot J45.909 UN SPECIFIED ASTHMA, UNCOMPLICATED 09/06/2019 Ot K25.9 CARLOTTA SERGIO ULCER, UNSP ACUTE OR CHRONIC, 09/06/2019 Ot K29.50 UNS PECIFIED CHRONIC GASTRITIS WITHOUT BL 09/06/2019 Ot N18.3 HEAD OF PRODUCT JOAQUINA KIDNEY DISEASE, STAGE 3 (MODERAT 09/06/2019 Ot Z79.4 SHIP ENGINEER (CURRENT) USE OF INSULIN 09/06/2019 Ot Z79.82 TIFFANI G TERM (CURRENT) USE OF ASPIRIN 09/13/2019 BATSHEVA LARKIN, KIYA R Ot 599. 0 URIN TRACT INFECTION NOS 09/13/2019 MARIPOSA SANCHEZ APRN Ot J45.909 UNSPECIFIED ASTHMA, UNCOMPLICATED 09/13/2019 MARIPOSA SANCHEZ EAP CONSULTANT Ot J98.4 OTHER DISORDERS OF LUNG 09/13/2019 MARIPOSA SANCHEZ EAP CONSULTANT Ot R06.02 SHORTNESS OF BREATH 09/13/2019 BATSHEVA LARKIN, KIYA R Ot D64. 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 09/13/2019 Ot G47.33 OBS TRUCTIVE SLEEP APNEA (ADULT) (PEDIATR 09/13/2019 Ot I12.9 HYPE RTENSIVE CHRONIC KIDNEY DISEASE W ST 09/13/2019 Ot I25.10 ATH SCL HEART DISEASE OF [place] CORONARY 09/13/2019 Ot J45.909 UN SPECIFIED ASTHMA, UNCOMPLICATED 09/13/2019 Ot K25.9 CARLOTTA SERGIO ULCER, UNSP ACUTE OR CHRONIC, 09/13/2019 Ot K29.50 UNS PECIFIED CHRONIC GASTRITIS WITHOUT BL 09/13/2019 Ot N18.3 HEAD OF PRODUCT JOAQUINA KIDNEY DISEASE, STAGE 3 (MODERAT 09/13/2019 Ot Z79.4 LONGTERM (CURRENT) USE OF INSULIN 09/13/2019 Ot Z79.82 TIFFANI G TERM (CURRENT) USE OF ASPIRIN 09/13/2019 MARILY PANDEY DO Ot K44. 9 DIAPHRAGMATIC HERNIA WITHOUT OBSTRUCTION 09/20/2019 PANDEY MARILY RUCKER Ot E03. 9 HYPOTHYROIDISM, UNSPECIFIED 09/20/2019 PANDEY MARILY RUCKER Ot E11. 40 TYPE 2 DIABETES MELLITUS WITH DIABETIC N 09/20/2019 PANDEY MARILY RUCKER Ot E53. 9 VITAMIN B DEFICIENCY, UNSPECIFIED 09/20/2019 PANDEY DO MARILY D Ot E66. 01 MORBID (SEVERE) OBESITY DUE TO EXCESS CA 09/20/2019 MARILY PANDEY DO Ot E78. 2 MIXED HYPERLIPIDEMIA 09/20/2019 PANDEY MARY RUCKERTT Abdulkadir Ot F32. 9 MAJOR DEPRESSIVE DISORDER, SINGLE EPISOD 09/20/2019 MARY PANDEY DOTT Abdulkadir Ot G47. 33 OBSTRUCTIVE SLEEP APNEA (ADULT) (PEDIATR 09/20/2019 PANDEY MARILY RUCKER Ot I25. 10 ATHSCL HEART DISEASE OF [place] CORONARY 09/20/2019 PANDEY MARY RUCKERTT D Ot J45.909 UNSPECIFIED ASTHMA, UNCOMPLICATED 09/20/2019 DANNIE RUCKER MARILY D Ot K26. 9 DUODENAL ULCER, UNSP ACUTE OR CHRONIC 09/20/2019 PANDEY DO MARILY D Ot K29. 50 UNSPECIFIED CHRONIC GASTRITIS WITHOUT BL 09/20/2019 PANDEY MARY RUCKERTT Abdulkadir Ot K44. 9 DIAPHRAGMATIC HERNIA WITHOUT OBSTRUCTION 09/20/2019 MARILY PANDEY DO Ot R09. 02 HYPOXEMIA 09/20/2019 MARILY PANDEY DO Ot Z68. 39 BODY MASS INDEX (BMI) 39.0-39.9, ADULT 09[facility]20[facility] LONGTERM (CURRENT) USE OF ASPIRIN 09/20/2019 [facility] Z79. 84 LONGTERM (CURRENT) USE OF [facility] HY[facility]GL[facility]C [facility]90 HORMONE REPLACEMENT THERAPY 09/20/2019 [facility].899 OTHER SHIP ENGINEER (CURRENT) DRUG THERAPY 09/20/2019 [facility] Z88. 0 ALLERGY STATUS TO PENICILLIN 09/20/2019 [facility] Z[facility]. 5 ALLERGY STATUS TO NARCOTIC AGENT STATUS 09/20/2019 [facility] Z[facility]. 8 ALLERGY STATUS TO OTH DRUG/MEDS/BIOL SUB 09/20/2019 [facility] Z95. 5 PRESENCE OF CORONARY ANGIOPLASTY IMPLANT 09/20/2019 [facility] Z96.653 PRESENCE OF ARTIFICIAL KNEE JOINT, BILAT 09/20/2019 [facility] Z[facility]. 81 DEPENDENCE ON SUPPLEMENTAL OXYGEN Procedures There is no data. Results Test [...] culture - 12/26/15 07:02 Bacterial urine culture [id number] NRG COLONY COUNT 10,000/ML - 100,000/ML NRG FTX;REPORTABLE SENSITIVITY REPORTED AT 1335, 12-28 NRG URINE CULTURE RESULTS PLUS NRG Bacterial [...] mg/dL 0.1-1.0 Serum or plasma alkaline phosphatase shabaan surement (enzymatic activity/volume) 120 U/L 40-136 Serum [...] culture - 05/07/16 08:35 Bacterial urine culture [id number] NRG COLONY COUNT 10,000/ML - 100,000/ML NRG [...] culture - 05/13/16 07:13 Bacterial urine culture [id number] NRG COLONY COUNT 10,000/ML - 100,000/ML NRG [...] glucose measurement by g lucometer (mass/volume) - 03/08/17 10:49 Capillary blood glucose measurement by glucometer [...] G Measurement of body temperature 97.6 NRG Microalb/Creat Ratio, Randm Ur - 0 13:45 Creatinine, Urine 41.9 mg/dL Not Estab. Microalbumin, Urine 4.2 ug/mL Not Estab. Microalb/Creat Ratio 10.0 mg/g creat 0.0 -30.0 Creatinine - 03/25/18 11:54 Creat 1.07 mg/dL 0.50-1.50 eGFR 52 mL/min/1.73m2 >59 Complement C3, Serum - 03/25/18 11:54 Complement C3, Serum 188 MG/DL 82-167 Complement C4, Serum - 03/25/18 11:54 Complement C4, Serum 34 MG/DL 14-44 Complete blood count (CBC) with automate d [...] culture - 12/31/18 18:53 Bacterial urine culture [id number] NRG COLONY COUNT >100,000/ML NRG FTX;REPORTABLE SUSCEPTIBILITY [...] ENTRY 3 TIMMY. NO SUSCEPTIBILITY PERFOR MED NR Complete blood count (CBC) with automate d [...] - 04/11/19 08:30 Bacterial blood culture NG NRG Bacterial blood culture - 04/11/19 08:45 Bacterial blood culture NG NRG Influenza virus A and B antigen detectio n - 05/14/19 14:51 FLU RESULT NEGATIVE FOR INFLUENZA A AND B ANTIGENS BY IA [facility] Complete blood count (CBC) with automate d [...] urinalysis with reflex to culture NO NRG Comprehensive Metabolic Panel - 08/01/19 08:28 Albumin 4.1 g/dL 3.6-5.1 ALP 138 U/L 35-130 ALT 26 U/L 6-45 Anion Gap 18 6-14 AST 28 U/L 2-40 BUN 20 mg/dL 5-25 Calcium 9.3 mg/dL 8.3-10.4 Chloride 103 mmol/L 95-114 CO2 24 mEq/L 22-33 Creat 1.08 mg/dL 0.50-1.50 eGFR 51 mL/min/1.73m2 >59 Globulin 3.9 g/dL 2.3-3.5 Glucose 191 mg/dL 70-110 Osmo 296 280-295 Potassium 4.7 mmol/L 3.5-5.3 Sodium 140 mmol/L 134-148 TBil 0.3 mg/dL 0.2-1.2 TP 8.0 g/dL 6.0-8.3 Urinalysis - 08/01/19 09:07 Icotest N/A Negative Urine Casts None Seen Urine Crystals None Seen Urine Volume Urine Volume Sufficient (10mL) Urine Yeast No Yeast present Urine-Appearance Slightly Cloudy Clear Urine-Bacteria Negative Urine-Bilirubin Negative Negative Urine-Blood Negative Negative Urine-Color Yellow Colorless-Lt. Millard ow Urine-Epithelial Cells 10-20/HPF Urine-Glucose Negative Negative Urine-Ketones Negative Negative Urine-Leukocytes Negative Negative Urine-Mucus Negative Urine-Nitrite Negative Negative Urine-Other Urine Saved if Culture Need ed (48hrs from time of collection) Urine-pH 6.0 5-8.5 Urine-Protein Negative Negative Urine-RBC 0-2/HPF Urine-Specific Terry 1.020 1.000-1 .030 Urine-WBC Negative Urobilinogen 0.2 0.2-1.0 Coronavirus SARS-CoV-2 SO 2019 - 0 07:46 Coronavirus Ab [Units/volume] in Serum Negative Negative Complete blood count (CBC) with automate d white blood cell (WBC) differential - 10/07/19 15:23 Blood leukocytes automated count (number/volume) 10.2 10*3/uL 4.3-11.0 Blood erythrocytes automated count (number/volume) 3.79 10*6/uL 4.35-5.85 Venous blood hemoglobin measurement (mass/volume) 11.5 g/dL 11.5-16.0 Blood hematocrit (volume fraction) 36 % 35-52 Automated erythrocyte mean corpuscular volume 94 [ foz_us] 80-99 Automated erythrocyte mean corpuscular h emoglobin (mass per erythrocyte) 30 pg 25-34 Automated erythrocyte mean corpuscular h emoglobin concentration measurement (mass/volume) 32 g/dL 32-36 Automated erythrocyte distribution width ratio 13. 0 % 10.0- 14.5 Automated blood platelet count (count/volume) 246 10*3/uL 130-400 Automated blood platelet mean volume measurement 9.9 [foz_us] 7.4-10.4 Automated blood neutrophils/100 leukocytes 80 % 42-75 Automated blood lymphocytes/100 leukocytes 14 % 12-44 Blood monocytes/100 leukocytes 4 % 0-12 Automated blood eosinophils/100 leukocytes 1 % 0-10 Automated blood basophils/100 leukocytes 1 % 0-10 Blood neutrophils automated count (number/volume) 8.2 10*3 1.8-7.8 Blood lymphocytes automated count (number/volume) 1.4 10*3 1.0-4.0 Blood monocytes automated count (number/volume) 0. 4 10*3 0.0-1.0 Automated eosinophil count 0.1 10*3/uL 0 .0-0.3 Automated blood basophil count (count/volume) 0.1 10*3/uL 0.0-0.1 Whole blood basic metabolic panel - 09/08 03/28 15:23 Serum or plasma sodium measurement (moles/volume) 138 mmol/L 135-145 Serum or plasma potassium measurement (moles/volume) 4.4 mmol/L 3.6-5.0 Serum or plasma chloride measurement (moles/volume) 103 mmol/L 98-107 Carbon dioxide 21 mmol/L 21-32 Serum or plasma anion gap determination (moles/volume) 14 mmol/L 5-14 Serum or plasma urea nitrogen measurement (mass/volume ) 18 mg/dL 7-18 Serum or plasma creatinine measurement (mass/volume) 1.18 mg/dL 0.60-1.30 Serum or plasma urea nitrogen/creatinine mass ratio 15 NRG Serum or plasma creatinine measurement w ith calculation of estimated glomerular filtration rate 46 NRG Serum or plasma glucose measurement (mass/volume) 410 mg/dL 70-105 Serum or plasma calcium measurement (mass/volume) 8.8 mg/dL 8.5-10.1 Encounters ACCT No. Visit Date/Time Discharge Status Pt. Type Provider Facility Loc./Unit Complaint [id number] 03/26/2019 03:05:00 Document Registration [id number] 03/29/2018 16:15:00 Document Registration [id number] 08/01/2019 08:00:00 08/01/2019 10:03 :00 DIS Outpatient [facility] [id number] 03/25/2018 11:43:00 03/25/2018 23:59: 00 DIS Outpatient Pantera Pham [id number] 03/25/2018 10:42:00 03/25/2018 23:59: 00 DIS Outpatient Pantera Pham [id number] 01/02/2017 09:06:00 01/02/2017 23:59: 00 DIS Outpatient DEMETRA MOLINA [id number] 08/01/2019 08:28:30 Document Registration [id number] 10/07/2019 14:58:00 16:02:00 DIS Emergency MAGDY ZIEGLER APRN [facility] ER POSS BLOOD CLOT IN L LE G [id number] 09/13/2019 07:35:00 09:35:00 DIS Outpatient PANDEY MARILY RUCKER [facility] ENDO EPIGASTRIC ABD PAIN/KOLBY CK TARRY STOOLS/HX PUD [id number] 09/08/2019 05:50:00 15:09:00 DIS Outpatient PANDEY MARILY RUCKER [facility] PREOP EGD [id number] 03/17/2019 08:57:00 00:01:00 DIS Outpatient NORA ESCAMILLA V ia [facility] ONC [id number] 05/15/2019 05:49:00 07:56:00 DIS Emergency SHARLA DOWNS MD [facility] ER UPPER RESP INFE CTION [id number] 05/14/2019 14:49:00 16:32:00 DIS Emergency SHARLA DOWNS MD [facility] ER SOA [id number] 04/11/2019 07:10:00 15:39:00 DIS Emergency TO GRAY MD [facility] ER FLU;HEADACHE [id number] 03/22/2019 07:47:00 09:58:00 DIS Emergency SHARLA DOWNS MD [facility] ER HEADACHE [id number] 02/28/2019 13:40:00 17:23:00 DIS Emergency MAGDY ZIEGLER APRN [facility] ER R SIDE PAIN [id number] 12/31/2018 16:40:00 20:25:00 DIS Emergency IVORY LARKIN, DAVIN Maciel [facility] ER ABD PAIN,DIARRH EA [id number] 09/24/2018 07:56:00 00:01:00 DIS Outpatient NORA ESCAMILLA [facility] ONC [id number] 12/06/2018 09:15:00 23:59:59 CLS Outpatient LOUISE LAND EAP CONSULTANT [facility] RAD RENAL/URETERAL COLIC,ACUTE CYSTITIS W/O HEMATURIA [id number] 11/05/2018 16:10:00 17:58:00 DIS Emergency MAGDY ZIEGLER EAP CONSULTANT [facility] ER SOB [id number] 04/26/2018 08:24:00 00:01:00 DIS Outpatient NORA ESCAMILLA [facility] ONC [id number] 07/01/2018 00:10:00 23:59:59 CLS Preadmit MARIPOSA SANCHEZ EAP CONSULTANT [facility] PULM RESTRICTIVE JONATHON G DISEASE,SOB DYSPNEA [id number] 06/01/2018 09:00:00 00:01:00 DIS Outpatient MARIPOSA SANCHEZ EAP CONSULTANT [facility] PULM RESTRICTIVE JONATHON G DISEASE,SOB DYSPNEA [id number] 06/01/2018 15:43:00 17:59:00 DIS Emergency TO GRAY MD [facility] ER HEART RATE PROBLEMS [id number] 05/07/2018 20:33:00 06:53:00 DIS Outpatient MARIPOSA SANCHEZ EAP CONSULTANT [facility] SLEEP JAD, ASTHMA, AN TERIOR CHEST WALL PAIN [id number] 03/30/2018 20:05:00 06:10:00 DIS Outpatient MARIPOSA SANCHEZ EAP CONSULTANT [facility] SLEEP HYPOXEMIA,ASTHM A,SOB [id number] 03/29/2018 21:00:00 019 23:59:59 CLS Preadmit MARIPOSA SANCHEZ EAP CONSULTANT [facility] SLEEP JAD,ASTHMA,SOB DYSPNEA [id number] 03/18/2018 09:00:00 019 00:01:00 DIS Outpatient MARIPOSA SANCHEZ EAP CONSULTANT [facility] PULM RESTRICTIVE JONATHON G DISEASE,SOB DYSPNEA [id number] 12/24/2017 08:56:00 019 00:01:00 DIS Outpatient NORA ESCAMILLA [facility] ONC [id number] 02/23/2018 08:19:00 018 23:59:59 CLS Outpatient MARIPOSA SANCHEZ EAP CONSULTANT [facility] RAD RESTRICTIVE JONATHON G DISEASE [id number] 02/02/2018 06:34:00 018 10:45:00 DIS Outpatient MARILY PANDEY DO [facility] ENDO IRON DEF ANEMIA [id number] 01/27/2018 13:15:00 018 14:09:00 DIS Outpatient MARILY PANDEY DO [facility] PREOP COLONOSCOPY/EGD [id number] 12/09/2017 11:59:00 23:59:59 CLS Outpatient LOUISE LAND EAP CONSULTANT [facility] RAD DYSURIA [id number] 11/30/2017 10:16:00 018 00:01:00 DIS Outpatient MARIPOSA SANCHEZ EAP CONSULTANT [facility] RT RESTRICTIVE JONATHON G DISEASE,SOB DYSPNEA [id number] 11/19/2017 08:53:00 018 00:01:00 DIS Outpatient NORA ESCAMILLA [facility] ONC [id number] 12/02/2017 08:21:00 018 23:59:59 CLS Outpatient ABI PANG EAP CONSULTANT [facility] RAD BREAST NODULE [id number] 11/27/2017 13:53:00 018 23:59:59 CLS Outpatient ABI PANG EAP CONSULTANT [facility] RAD BREAST NODULE [id number] 11/10/2017 07:02:00 018 09:15:00 DIS Outpatient MARILY PANDEY DO [facility] ENDO DYSPHAGIA [id number] 11/02/2017 09:33:00 018 14:05:00 DIS Inpatient LARRY MURILLO DO [facility] 4TH CP/SOB [id number] 11/04/2017 05:54:00 018 10:11:00 DIS Outpatient MARILY PANDEY DO [facility] PREOP EGD [id number] 11/01/2017 00:09:00 018 23:59:59 CLS Preadmit KIYA HERMAN MD [facility] CR3 WELLNESS [id number] 10/06/2017 06:00:00 018 00:01:00 DIS Outpatient KIYA HERMAN MD [facility] CR3 WELLNESS [id number] 10/29/2017 16:54:00 018 21:02:00 DIS Emergency MAGDY ZIEGLER EAP CONSULTANT [facility] ER CP [id number] 09/04/2017 08:54:00 018 00:01:00 DIS Outpatient KIYA HERMAN MD [facility] CR3 WELLNESS [id number] 08/12/2017 16:03:00 018 00:01:00 DIS Outpatient BATSHEVA LARKIN, KIYA R [facility] CR3 WELLNESS [id number] 06/15/2017 17:00:00 018 00:01:00 DIS Outpatient KIYA HERMAN MD [facility] CR3 WELLNESS [id number] 06/19/2017 07:17:00 018 23:59:59 CLS Outpatient KIYA HERMAN MD [facility] RAD PAIN IN LEFT LOWER LEG [id number] 11/18/2016 09:15:00 017 23:59:59 CLS Outpatient KIYA HERMAN MD [facility] RAD R07.81;PELVIC PAIN [id number] 10/15/2016 07:30:00 017 23:59:59 CLS Outpatient KIYA HERMAN MD [facility] RAD R10.2 625.9 [id number] 07/01/2016 08:48:00 017 23:59:59 CLS Outpatient LEANNA BROOKE MD [facility] RAD SCREENING [id number] 05/27/2016 08:37:00 017 08:37:00 CAN Preadmit KIYA HERMAN MD [facility] RAD PNEUMONIA [id number] 05/26/2016 09:02:00 017 23:59:59 CLS Outpatient KIYA HERMAN MD [facility] RAD PNEUMONIA [id number] 05/06/2016 13:01:00 017 11:30:00 DIS Inpatient NURY LARKIN, WHIT Stephen [facility] IRF CAROTID STENOSIS [id number] 04/16/2016 08:35:00 017 23:59:59 CLS Outpatient SAM HEALY MD [facility] CARD CARTOID ARTERY STENOSIS [id number] 04/07/2016 00:41:00 017 03:26:00 DIS Emergency DAVIN DODSON MD [facility] ER OVERDOSE OF INS ULIN [id number] 03/26/2016 06:47:00 017 23:59:59 CLS Outpatient NGHIA GUTIERREZ MD [facility] CARD ANTERIOR CHEST WALL TANIA N [id number] 03/25/2016 11:07:00 017 23:59:59 CLS Outpatient NGHIA GUTIERREZ MD [facility] LAB CAD,ANTERIOR CHEST WALL PAIN [id number] 02/04/2016 00:08:00 016 23:59:59 CLS Preadmit KIYA HERMAN MD [facility] LAB ANEMIA [id number] 11/06/2015 08:01:00 00:01:00 DIS Outpatient BATSHEVA LARKIN, KIYA R [facility] LAB ANEMIA [id number] 12/31/2015 03:53:00 05:28:00 DIS Emergency IVORY LARKIN, DAVIN Maciel [facility] ER L LEG PAIN [id number] 12/26/2015 06:40:00 08:45:00 DIS Outpatient NGHIA GUTIERREZ MD [facility] CATH CHEST PAIN,ABN STRESS,H TN [id number] 12/12/2015 07:28:00 23:59:59 CLS Outpatient NGHIA GUTIERREZ MD [facility] CARD CHEST PAIN SYNDROME,HTN,SOB,OBSTRUCTIVE SLEEP APNE [id number] 11/29/2015 10:15:00 23:59:59 CLS Preadmit MARIPOSA SANCHEZ APRN [facility] PULM DYSPNEA [id number] 10/18/2015 09:00:00 00:01:00 DIS Outpatient MARIPOSA SANCHEZ APRN [facility] PULM DYSPNEA [id number] 11/27/2015 07:29:00 23:59:59 CLS Outpatient NGHIA GUTIERREZ MD [facility] CARD CHEST PAIN SYNDROME,HTN,SOB,OBSTRUCTIVE SLEEP APNE [id number] 11/23/2015 16:24:00 17:44:00 DIS Emergency MAGDY ZIEGLER EAP CONSULTANT [facility] ER FATIGUE/LOW SUGAR [id number] 11/02/2015 10:33:00 12:04:00 DIS Emergency MAGDY ZIEGLER EAP CONSULTANT [facility] ER SOA [id number] 10/05/2015 13:16:00 23:59:59 CLS Outpatient MARCELO SAEZ MD [facility] RAD SPONDYLOSISTHESIS [id number] 08/23/2015 09:00:00 016 23:59:59 CLS Outpatient MARIPOSA SANCHEZ APRN [facility] PULM DYSPNEA [id number] 06/28/2015 07:07:00 23:59:59 CLS Outpatient MENDY LARKIN, LEANNA Alejandra [facility] RAD SCREENING [id number] 04/24/2015 06:43:00 23:59:59 CLS Outpatient BATSHEVA LARKIN, KIYA Wei [facility] RAD RUQ PAIN [id number] 03/15/2015 19:48:00 06:50:00 DIS Outpatient MARIPOSA SANCHEZ APRN [facility] SLEEP JAD,SNORING, [id number] 03/05/2015 08:13:00 23:59:59 CLS Outpatient LARRY MURILLO DO [facility] RAD HTN,ASTHMA [id number] 02/11/2015 19:37:00 06:45:00 DIS Outpatient LARRY MURILLO DO [facility] SLEEP HTN,SNORING,DAYTIME SLE EPINESS [id number] 01/17/2015 16:11:00 23:59:59 CLS Outpatient LARRY MURILLO DO [facility] RT HTN,DIABETES,OBESITY,HL P [id number] 12/15/2014 05:43:00 07:30:00 DIS Emergency RUSLAN MADRID MD [facility] ER ANXIETY [id number] 11/09/2014 13:15:00 23:59:59 CLS Outpatient ABBIE HERNANDEZ APRN [facility] RAD BILATERAL RENNY ICATION OF LOWER LIMB DIABETES JOSE [id number] 11/03/2014 13:29:00 015 15:52:00 DIS Emergency AURELIO LARKIN, JUSTINO Clay [facility] ER CHEST PAIN [id number] 09/06/2014 07:28:00 23:59:59 CLS Outpatient KIYA HERMAN MD [facility] RAD PERSISTANT HEADACHE,FRO NTAL [id number] 08/30/2014 09:39:00 23:59:59 CLS Outpatient KIYA HERMAN MD [facility] RAD PERSISTANT COUGH [id number] 06/23/2014 06:51:00 23:59:59 CLS Outpatient LEANNA BROOKE MD [facility] RAD SCREENING [id number] 06/12/2014 00:11:00 23:59:59 CLS Preadmit KIYA HERMAN MD [facility] LAB SYMPTOMS INVOLVING URIN DANA TRACT [id number] 03/13/2014 15:59:00 00:01:00 DIS Outpatient KIYA HERMAN MD [facility] LAB SYMPTOMS INVOLVING URIN DANA TRACT [id number] 06/21/2013 08:07:00 23:59:59 CLS Outpatient LEANNA BROOKE MD [facility] RAD SCREENING [id number] 12/02/2012 14:22:00 00:01:00 DIS Outpatient KIYA HERMAN MD [facility] WEAKNESS [id number] 01/05/2013 08:23:00 11:35:00 DIS Outpatient MARQUITA HERNANDEZ MD [facility] PEPTIC ULCER DISEASE; A NEMIA [id number] 12/30/2012 07:15:00 23:59:59 CLS Outpatient MARQUITA HERNANDEZ MD [facility] PREOP PEPTIC ULCER DISEASE; A NEMIA [id number] 12/23/2012 15:40:00 23:59:59 CLS Outpatient KIYA HERMAN MD [facility] RAD PAIN WITH CHANGE IN V ISION [id number] 09/08/2012 09:45:00 23:59:59 CLS Outpatient Justyn MORRISSEY MD [facility] LAB CYSTITIS [id number] 08/27/2012 09:12:00 23:59:59 CLS Outpatient Justyn MORRISSEY MD [facility] LAB UTI [id number] 07/21/2012 10:02:00 23:59:59 CLS Outpatient Justyn MORRISSEY MD [facility] LAB 595.2 [id number] 06/13/2019 00:00:00 Document Registration [id number] 01/28/2019 09:23:00 Document Registration [id number] 10/13/2017 07:54:00 Document Registration [id number] 10/07/2017 09:23:00 Document Registration [id number] 12/13/2014 06:56:00 Document Registration [id number] 12/12/2014 15:11:00 Document Registration [id number] 03/13/2014 15:59:00 Document Registration [id number] 03/03/2013 00:00:00 Document Registration [id number] 06/21/2012 08:54:00 Document Registration [id number] 06/17/2012 11:49:00 Document Registration [id number] 04/28/2012 10:48:00 Document Registration [id number] 07/24/2011 09:15:00 Document Registration [id number] 06/23/2011 08:01:00 Document Registration [id number] 05/29/2011 05:42:00 Document Registration [id number] 05/19/2011 07:27:00 Document Registration [id number] 02/11/2011 16:00:00 Document Registration [id number] 01/18/2011 22:01:00 Document Registration [id number] 10/12/2010 14:30:00 Document Registration [id number] 07/11/2010 15:51:00 Document Registration [id number] 07/08/2010 11:52:00 Document Registration [id number] 06/20/2010 14:16:00 Document Registration [id number] 06/20/2010 06:57:00 Document Registration [id number] 01/18/2010 08:56:00 Document Registration [id number] 12/25/2009 09:07:00 Document Registration [id number] 12/18/2009 15:48:00 Document Registration [id number] 12/17/2009 13:15:00 Document Registration [id number] 09/19/2009 07:39:00 Document Registration [id number] 08/29/2009 06:18:00 Document Registration [id number] 08/17/2009 15:56:00 Document Registration [id number] 03/13/2009 12:58:00 Document Registration [id number] 04/24/2019 17:50:00 04/24/2019 23:59: 59 CLS Out[facility]
[2019-10-10 11:47] LABS: BILIRUBIN,URINE NEGATIVE (NEGATIVE); CLARITY,URINE CLEAR; COLOR,URINE YELLOW; GLUCOSE, URINE (UA) TRACE (NEGATIVE); KETONES,URINE NEGATIVE (NEGATIVE); LEUKOCYTE ESTERASE ,URINE NEGATIVE (NEGATIVE); NITRITE,URINE NEGATIVE (NEGATIVE); PH,URINE 6.5 (5-9); PROTEIN,URINE NEGATIVE (NEGATIVE)
[2019-10-10 11:53] LABS: ALBUMIN 3.6 GM/DL (3.2-4.5); BILIRUBIN,TOTAL 0.4 MG/DL (0.1-1.0); CALCIUM 8.6 MG/DL (8.5-10.1); CREATININE SERUM 1.04 MG/DL (0.60-1.30); POTASSIUM 4.8 MMOL/L (3.6-5.0)
[2019-10-10 11:54] LABS: BACTERIA,URINE TRACE /HPF; YEAST,URINE FEW /HPF
[2019-10-10] MEDS ORDERED: NS 100 ML (IVPB) BAG IV ONE (12:30)
[2019-10-10] MEDS ORDERED: IOHEXOL 350 MG/ML 100 ML (OMNIPAQUE 350) VIAL IV ONE (12:30)
[2019-10-10] MEDS ORDERED: HOLD METFORMIN - RECEIVED CONTRAST 20 ML VIAL IV SCH (12:30)
--- NOTE | 2019-10-10 12:42 | Diagnostic Imaging Report ---
PROCEDURE: CT abdomen and pelvis with contrast. TECHNIQUE: Multiple contiguous axial images were obtained through the abdomen and pelvis after administration of intravenous contrast. Auto Exposure Controls were utilized during the CT exam to meet ALARA standards for radiation dose reduction. INDICATION: Upper abdominal pain. COMPARISON: 04/11/2019. FINDINGS: The lung bases are clear. The liver again demonstrates some generalized low density, consistent with hepatic steatosis. No discrete liver mass is detected. The gallbladder is surgically absent. No biliary ductal dilatation is identified. The pancreas and spleen are unremarkable. No adrenal mass is detected. The kidneys are unremarkable. The aorta is calcified but not aneurysmal. No central retroperitoneal or mesenteric lymphadenopathy is detected. The bowel loops are of normal caliber. There is no obstruction. There is moderate stool in the colon. No free fluid is detected. No fluid collection is identified. The uterus is unremarkable. The bladder is decompressed. No pelvic lymphadenopathy is identified. IMPRESSION: Stable CT abdomen and pelvis since the prior study from 04/11/2019. No acute abnormality is detected. Dictated by: Dictated on workstation # [id number]
[2019-10-10 13:11] VITALS: BP 129/86
== END 2019-10-10 13:11 | disposition home or self-care (01) ==
LOC: EDUNIT# 10:22 → ER 10:24
DX: K29.70 Gastritis, unspecified, without bleeding (principal); E11.9 Type 2 diabetes mellitus without complications; Z79.4 Long term (current) use of insulin; E03.9 Hypothyroidism, unspecified; F41.9 Anxiety disorder, unspecified; F32.9 Major depressive disorder, single episode, unspecified; I42.9 Cardiomyopathy, unspecified; I25.10 Atherosclerotic heart disease of native coronary artery without angina pectoris; J44.9 Chronic obstructive pulmonary disease, unspecified; I10 Essential (primary) hypertension; E78.00 Pure hypercholesterolemia, unspecified; G47.30 Sleep apnea, unspecified; I38 Endocarditis, valve unspecified; K21.9 Gastro-esophageal reflux disease without esophagitis; M19.91 Primary osteoarthritis, unspecified site; M41.9 Scoliosis, unspecified; Z95.5 Presence of coronary angioplasty implant and graft
CPT/HCPCS: 36415; 74022; 74177; 80053; 81000; 83690; 85025

== ENCOUNTER 2019-10-16 09:23 | Emergency (ER) | payer MEDICARE, OTHER ==
[~2019-10-16] VITALS: Ht 162 cm; Wt 112.0 kg
--- OUTSIDE RECORDS SUMMARY | 2019-10-16 09:40 | XMS REPORT | Clinical Summary ---
Author Author [facility] Organization [facility] Address Unknown Phone Unavailable Care Team Providers Care Devulcanizer Head Name Role Phone PCP Unavailable Allergies Not [...]
--- OUTSIDE RECORDS SUMMARY | 2019-10-16 09:40 | XMS REPORT | Encounter Summary ---
Author Author [facility] Organization [facility] Address Unknown Phone Unavailable Care Team Providers Care Kitchen And Bath Designer Name Role Phone PCP Unavailable Encounter Details Care Team Description Date Type Department Frederic Culver MD [address] [facility] [address] [place] [address] [phone] [facility] [address] [place] [address] Social History Date Tobacco Use Types Packs/Day [...] Address City/State/Zipcode Ph one Number [facility] [address] [place], [place] [address] HLAB * Protein Electrophoresis [...] Medical Centercode Ph one Number [facility] [address] [place], [place] [address] [facility] documented in this encounter Visit Diagnoses Not on filedocumented in this encounter
--- OUTSIDE RECORDS SUMMARY | 2019-10-16 09:41 | XMS REPORT | Encounter Summary ---
Author Author [facility] Address Unknown Phone Unavailable Care Team Providers Care Clinical Medical Transcriptionist Name Role Phone PCP Unavailable Encounter Details Care Team Description Date Type Department Fredreic Culver MD [address] [facility] [address] [place] [address] [phone] [facility] [address] [place] [address] Social History Date Tobacco Use Types Packs/Day [...] Address City/State/Zipcode Ph one Number [facility] [address] [place], [place] [address] [place] * DNA Antibody (10/03/2010 1:00 PM CDT) DNA Antibody 4 0 - 5 IU/ML [place] Specimen Blood Performing Organization Address [facility] one Number [facility] [address] [place], [place] [address] [place] * GWYN Qualitative (10/03/2010 1:00 PM CDT) GWYN Qualitative Negative Negative [place] Specimen Blood Performing Organization Address [facility] one Number [facility] [address] [place] [phone] [place] * RO/SSA Antibody (10/03/2010 1:00 PM CDT) RO/SSA Antibody Negative [place] Specimen Blood Performing Organization Address [facility] one Number [facility] [address] [place] [phone] [place] * Smooth Muscle Antibody (10/03/2010 1:00 PM CDT) Smooth Muscle 10 0 - 15 UNITS [place] Antibody Specimen Blood Performing Organization Address [facility] one Number [facility] [address] [place] [phone] [place] documented in this encounter Visit Diagnoses Not on filedocumented in this encounter
--- OUTSIDE RECORDS SUMMARY | 2019-10-16 09:41 | XMS REPORT | Encounter Summary ---
Author Author [facility] Organization [facility] Address Unknown Phone Unavailable Care Team Providers Care Washing Machine Loader And Puller Name Role Phone PCP Unavailable Encounter Details Care Team Description Date Type Department Frederic Culver MD [address] [facility] [address] [place] [address] [phone] 07/16/2012 [facility] al Encounter [address] [place] [address] Social History Date Tobacco Use Types Packs/Day [...] Address City/State/Zipcode Ph one Number [facility] [address] [place], [place] [address] [facility] documented in this encounter Visit Diagnoses Not on filedocumented in this encounter
--- OUTSIDE RECORDS SUMMARY | 2019-10-16 09:44 | XMS REPORT | Continuity of Care Document ---
Demographics Preferred Language Unknown Marital Status Unknown Baptist Affiliation Unknown Race Unknown Ethnic Group Unknown Author Organization Unknown Address Unknown Phone Unavailable Allergies Active Description Code Type Severity Reaction Onset Reported/Identified Relationship to Patient Clinical Status Yes CODEINE SULFATE M ODERATE MODERATE Yes DEMEROL MODERATE MODERATE Yes FARXIGA MODERATE MODERATE Yes MORPHINE MODERATE MODERATE Yes PENICILLINS MODERATE MODERATE Yes TOPAMAX MODERATE TO SEVERE MODERATE TO SEVERE Yes acetaminophen [id number] Matthias g Allergy Unknown N/A 10/22/2006 Yes morphine [id number] Drug Allergy Unknown N/A 05/15/2019 Yes Penicillins [id number] Drug Aller gy Unknown N/A 05/15/2019 Yes propoxyphene [id number] Drug Allergy Unknown N/A 05/15/2019 Yes topiramate [id number] Drug Allerg y Unknown N/A 05/15/2019 Yes meperidine [id number] Drug Allerg y Unknown N/A 09/06/2019 Yes codeine [id number] Drug Allergy Unknown UPSET STOMACH 09/13/2019 Yes dapagliflozin [id number] Matthias g Allergy Unknown yeast infection 09/13/2019 [...] HX-ISCHEM HEART DIS 11/03/2014 AURELIO LARKIN, JUSTINO Clay Ot V58. 69 OTH MED,LT,CURRENT USE 11/03/2014 [...] Ot 784. 0 11/15/2014 NWAGWU, ISIDORE O DEXIGRAPH OPERATOR Ot 250.00 11/15/2014 NWAGWU, ISIDORE O DEXIGRAPH OPERATOR Ot 401.9 11/15/2014 NWAGWU, ISIDORE O DEXIGRAPH OPERATOR Ot 443.9 11/29/2014 NWAGWU, ISIDORE O DEXIGRAPH OPERATOR Ot 250.00 11/29/2014 NWAGWU, ISIDORE O DEXIGRAPH OPERATOR Ot 401.9 11/29/2014 NWAGWU, ISIDORE O DEXIGRAPH OPERATOR Ot 443.9 12/06/2014 NWAGWU, ISIDORE O DEXIGRAPH OPERATOR Ot 250.00 12/06/2014 NWAGWU, ISIDORE O DEXIGRAPH OPERATOR Ot 401.9 12/06/2014 NWAGWU, ISIDORE O DEXIGRAPH OPERATOR Ot 443.9 12/12/2014 Ot R06.02 VENKATA RTNESS OF BREATH 12/12/2014 Ot T44.7X5A A DVERSE EFFECT OF BETA-ADRENORECEPTOR AN 12/13/2014 Ot J45.901 UN SPECIFIED ASTHMA WITH (ACUTE) EXACERBA 12/13/2014 Ot R06.02 VENKATA RTNESS OF BREATH 12/15/2014 RUSLAN MADRID MD Ot F41 .9 ANXIETY DISORDER, UNSPECIFIED 12/15/2014 RUSLAN MADIRD MD Ot F43 .0 ACUTE STRESS REACTION [...] LARRY MURILLO DO Ot J45.998 02/12/2015 CHIDI RUCKERLARRY Ot G47. 33 OBSTRUCTIVE SLEEP APNEA (ADULT) [...] R Ot 784. 0 04/24/2015 NWABBIE PEÑA DEXIGRAPH OPERATOR Ot 250.00 04/24/2015 NWRAVIN PEÑARE Junie DEXIGRAPH OPERATOR Ot 401.9 04/24/2015 NWRAVIN PEÑARE O DEXIGRAPH OPERATOR Ot 443.9 04/24/2015 LARRY MURILLO DO Ot [...] SCREEN MAMMOGRAM FOR MALIGNANT NE 06/29/2015 SATHYA SANCHEZINE E DEXIGRAPH OPERATOR Ot J45.909 UNSPECIFIED ASTHMA, UNCOMPLICATED 06/29/2015 DANIELSATHYA GUTIERRESINE E DEXIGRAPH OPERATOR Ot J98.4 OTHER DISORDERS OF LUNG 06/29/2015 SATHYA SANCHEZINE E DEXIGRAPH OPERATOR Ot R06.02 SHORTNESS OF BREATH 07/05/2015 SATHYA SANCHEZINE E DEXIGRAPH OPERATOR Ot J45.909 UNSPECIFIED ASTHMA, UNCOMPLICATED 07/05/2015 DANIELSATHYA GUTIERRESINE E DEXIGRAPH OPERATOR Ot J98.4 OTHER DISORDERS OF LUNG 07/05/2015 DANIELSATHYA GUTIERRESINE E DEXIGRAPH OPERATOR Ot R06.02 SHORTNESS OF BREATH 07/18/2015 MENDY LARKIN, LEANNA Alejandra Ot Z12.3 1 ENCNTR SCREEN MAMMOGRAM FOR MALIGNANT NE 08/26/2015 SATHYA SANCHEZINE E DEXIGRAPH OPERATOR Ot J45.909 UNSPECIFIED ASTHMA, UNCOMPLICATED 08/26/2015 DANIELSATHYA GUTIERRESINE E DEXIGRAPH OPERATOR Ot J98.4 OTHER DISORDERS OF LUNG 08/26/2015 SATHYA SANCHEZINE E DEXIGRAPH OPERATOR Ot R06.02 SHORTNESS OF BREATH 08/31/2015 SATHYA SANCHEZINE E DEXIGRAPH OPERATOR Ot J45.909 UNSPECIFIED ASTHMA, UNCOMPLICATED 08/31/2015 DANIELSATHYA GUTIERRESINE E DEXIGRAPH OPERATOR Ot J98.4 OTHER DISORDERS OF LUNG 08/31/2015 SATHYA SANCHEZINE E DEXIGRAPH OPERATOR Ot R06.02 SHORTNESS OF BREATH 09/27/2015 SATHYA SANCHEZINE E DEXIGRAPH OPERATOR Ot J45.909 UNSPECIFIED ASTHMA, UNCOMPLICATED 09/27/2015 DANIELSATHYA GUTIERRESINE E DEXIGRAPH OPERATOR Ot J98.4 OTHER DISORDERS OF LUNG 09/27/2015 DANIELSATHYA GUTIERRESINE E DEXIGRAPH OPERATOR Ot R06.02 SHORTNESS OF BREATH 10/04/2015 MARIPOSA SANCHEZ DEXIGRAPH OPERATOR Ot J45.909 UNSPECIFIED ASTHMA, UNCOMPLICATED 10/04/2015 MARIPOSA SANCHEZ DEXIGRAPH OPERATOR Ot J98.4 OTHER DISORDERS OF LUNG 10/04/2015 MARIPOSA SANCHEZ DEXIGRAPH OPERATOR Ot R06.02 SHORTNESS OF BREATH 10/08/2015 NADJA LARKIN, MARCELO Alejandra Ot M47.8 96 OTHER SPONDYLOSIS, LUMBAR REGION 10/26/2015 NADJA LARKIN, MARCELO Alejandra Ot M47.8 96 OTHER SPONDYLOSIS, LUMBAR REGION 11/02/2015 MAGDY ZIEGLER DEXIGRAPH OPERATOR Ot F41 .9 ANXIETY DISORDER, UNSPECIFIED 11/02/2015 [...] UPPER ABDOMINAL PAIN, UNSPECIFIED 11/23/2015 MAGDY ZIEGLER APRN Ot Z79.899 OTHER JAIL (CURRENT) DRUG THERAPY 11/26/2015 MAGDY ZIEGLER APRN Ot E11.649 TYPE 2 DIABETES MELLITUS WITH HYPOGLYCEM 11/26/2015 ZIEGLER, PETER J DEXIGRAPH OPERATOR Ot E11 .9 TYPE 2 DIABETES MELLITUS WITHOUT COMPLIC 11/26/2015 MAGDY ZIEGLER DEXIGRAPH OPERATOR Ot F41 .9 ANXIETY DISORDER, UNSPECIFIED 11/26/2015 MAGDY ZIEGLER DEXIGRAPH OPERATOR Ot I51 .7 CARDIOMEGALY 11/26/2015 MAGDY ZIEGLER DEXIGRAPH OPERATOR Ot R05 COUGH 11/26/2015 MAGDY ZIEGLER DEXIGRAPH OPERATOR Ot R10.10 UPPER ABDOMINAL PAIN, UNSPECIFIED 11/26/2015 MAGDY ZIEGLER DEXIGRAPH OPERATOR Ot Z79.899 OTHER PARTS FABRICATOR (CURRENT) DRUG THERAPY 11/28/2015 MARIPOSA SANCHEZ DEXIGRAPH OPERATOR Ot J45.909 UNSPECIFIED ASTHMA, UNCOMPLICATED 11/28/2015 MARIPOSA SANCHEZ DEXIGRAPH OPERATOR Ot J98.4 OTHER DISORDERS OF LUNG 11/28/2015 [...] MALIGN NEOPLASM OF [place] 12/12/2015 Ot 571.8 WHEELCHAIR VAN DRIVER JOAQUINA LIVER DIS NEC 12/12/2015 Ot 789.09 [...] 784. 0 HEADACHE 12/12/2015 NWAGWU, ISIDORE O DEXIGRAPH OPERATOR Ot 250.00 DIAB JOSE WO COMPL, TYPE II OR UNSPEC TY 12/12/2015 NWAGWU, ISIDORE O DEXIGRAPH OPERATOR Ot 401.9 HYPERTENSION NOS 12/12/2015 NWAGWU, ISIDORE O DEXIGRAPH OPERATOR Ot 443.9 PERIPH VASCULAR DIS NOS 12/12/2015 [...] 9 CHEST PAIN, UNSPECIFIED 12/12/2015 MARIPOSA SANCHEZ DEXIGRAPH OPERATOR Ot J45.909 UNSPECIFIED ASTHMA, UNCOMPLICATED 12/12/2015 MARIPOSA SANCHEZ DEXIGRAPH OPERATOR Ot J98.4 OTHER DISORDERS OF LUNG 12/12/2015 MARIPOSA SANCHEZ DEXIGRAPH OPERATOR Ot R06.02 SHORTNESS OF BREATH 12/12/2015 NGHIA [...] Ot I25. 10 ATHSCL HEART DISEASE OF [place] CORONARY 12/27/2015 NGHIA GUTIERREZ MD, Ot J44. 9 CHRONIC OBSTRUCTIVE PULMONARY DISEASE, U 12/27/2015 NGHIA GUTIERREZ MD, Ot M32. 9 SYSTEMIC LUPUS ERYTHEMATOSUS, UNSPECIFIE 12/27/2015 NGHIA GUTIERREZ MD Ot M79.609 PAIN IN UNSPECIFIED LIMB 12/27/2015 NGHIA GUTIERREZ MD Ot Z23 ENCOUNTER FOR IMMUNIZATION 12/27/2015 NGHIA GUTIERREZ MD Ot Z68. 41 BODY MASS INDEX (BMI) 40.0-44.9, ADULT 12/27/2015 NGHIA GUTIERREZ MD, Ot Z79.899 OTHER PARTS FABRICATOR (CURRENT) DRUG THERAPY 12/27/2015 NGHIA GUTIERREZ MD, [...] LEG 12/31/2015 DAVIN DODSON MD Ot Z79.82 JAIL (CURRENT) USE OF ASPIRIN 12/31/2015 DAVIN DODSON MD, Ot Z79.899 OTHER JAIL (CURRENT) DRUG THERAPY 12/31/2015 DAVIN DODSON MD Ot Z95.5 PRESENCE OF CORONARY ANGIOPLASTY IMPLANT 01/02/2016 DAVIN DODSON MD Ot E11.9 TYPE 2 DIABETES MELLITUS WITHOUT COMPLIC 01/02/2016 DAVIN DODSON MD Ot I10 ESSENTIAL (PRIMARY) HYPERTENSION 01/02/2016 DAVIN DODSON MD Ot M79.662 PAIN IN LEFT LOWER LEG 01/02/2016 IVORY LARKIN, DAVIN Maciel Ot Z79.82 PARTS FABRICATOR (CURRENT) USE OF ASPIRIN 01/02/2016 DAVIN DODSON MD Ot Z79.899 OTHER PARTS FABRICATOR (CURRENT) DRUG THERAPY 01/02/2016 DAVIN DODSON MD [...] MALIGN NEOPLASM OF [place] 01/11/2016 Ot 571.8 WHEELCHAIR VAN DRIVER JOAQUINA LIVER DIS NEC 01/11/2016 Ot 789.09 [...] 784. 0 HEADACHE 01/11/2016 RAVIN HERNANDEZRE O DEXIGRAPH OPERATOR Ot 250.00 DIAB JOSE WO COMPL, TYPE II OR UNSPEC TY 01/11/2016 LYNDON HERNANDEZDORE O DEXIGRAPH OPERATOR Ot 401.9 HYPERTENSION NOS 01/11/2016 LYNDON HERNANDEZDORE O DEXIGRAPH OPERATOR Ot 443.9 PERIPH VASCULAR DIS NOS 01/11/2016 [...] (CHANGE OF) LIVER, NOT ELSEWHERE C 01/11/2016 MENYD LARKIN, LEANNA Alejandra Ot Z12.3 1 ENCNTR [...] Ot R07. 9 CHEST PAIN, UNSPECIFIED 01/11/2016 NGHAI GUTIERREZ MD Ot G47. 33 OBSTRUCTIVE SLEEP [...] Ot I25. 10 ATHSCL HEART DISEASE OF [place] CORONARY 01/15/2016 NGHIA GUTIERREZ MD Ot J44. 9 CHRONIC OBSTRUCTIVE PULMONARY DISEASE, U 01/15/2016 NGHIA GUTIERREZ MD Ot M32. 9 SYSTEMIC LUPUS ERYTHEMATOSUS, UNSPECIFIE 01/15/2016 NGHIA GUTIERREZ MD Ot M79.609 PAIN IN UNSPECIFIED LIMB 01/15/2016 NGHIA GUTIERREZ MD Ot Z23 ENCOUNTER FOR IMMUNIZATION 01/15/2016 NGHIA GUTIERREZ MD Ot Z68. 41 BODY MASS INDEX (BMI) 40.0-44.9, ADULT 01/15/2016 NGHIA GUTIERREZ MD Ot Z79.899 OTHER PARTS FABRICATOR (CURRENT) DRUG THERAPY 02/03/2016 BATSHEVA LARKIN, KIYA Wei Ot D64. 9 ANEMIA, UNSPECIFIED 03/26/2016 NGHIA GUTIERREZ MD Ot E11. 9 TYPE 2 DIABETES MELLITUS WITHOUT COMPLIC 03/26/2016 NGHIA GUTIERREZ MD Ot E78. 2 MIXED HYPERLIPIDEMIA 03/26/2016 NGHIA GUTIERREZ MD Ot I10 ESSENTIAL (PRIMARY) HYPERTENSION 03/26/2016 NGHIA GUTIERREZ MD Ot I25. 10 ATHSCL HEART DISEASE OF [place] CORONARY 03/26/2016 NGHIA GUTIERREZ MD Ot R07. 89 OTHER CHEST PAIN 03/31/2016 NGHIA GUTIERREZ MD Ot E11. 9 TYPE 2 DIABETES MELLITUS WITHOUT COMPLIC 03/31/2016 NGHIA GUTIERREZ MD Ot E78. 2 MIXED HYPERLIPIDEMIA 03/31/2016 NGHIA GUTIERREZ MD Ot I10 ESSENTIAL (PRIMARY) HYPERTENSION 03/31/2016 NGHIA GUTIERREZ MD Ot I25. 10 ATHSCL HEART DISEASE OF [place] CORONARY 03/31/2016 NGHIA GUTIERREZ MD Ot R07. 89 OTHER CHEST PAIN 04/07/2016 DAVIN DODSON MD Ot E11.9 TYPE 2 DIABETES MELLITUS WITHOUT COMPLIC 04/07/2016 DAVIN DODSON MD Ot H81.12 BENIGN PAROXYSMAL VERTIGO, LEFT EAR 04/07/2016 DAVIN DODSON MD Ot I10 ESSENTIAL (PRIMARY) HYPERTENSION 04/07/2016 DAVIN DODSON MD Ot I25.10 ATHSCL HEART DISEASE OF [place] CORONARY 04/07/2016 DAVIN DODSON MD Ot I51.7 [...] GIDDINESS 04/07/2016 DAVIN DODSON MD Ot Z79.02 JAIL (CURRENT) USE OF ANTITHROMBOTI 04/07/2016 DAVIN DODSON MD Ot Z79.4 PARTS FABRICATOR (CURRENT) USE OF INSULIN 04/07/2016 DAVIN DODSON MD Ot Z79.84 PARTS FABRICATOR (CURRENT) USE OF ORAL HYPOGLYC 04/07/2016 DAVIN DODSON MD, Ot Z79.899 OTHER PARTS FABRICATOR (CURRENT) DRUG THERAPY 04/08/2016 DAVIN DODSON MD Ot E11.9 TYPE 2 DIABETES MELLITUS WITHOUT COMPLIC 04/08/2016 DAVIN DODSON MD Ot H81.12 BENIGN PAROXYSMAL VERTIGO, LEFT EAR 04/08/2016 DAVIN DODSON MD Ot I10 ESSENTIAL (PRIMARY) HYPERTENSION 04/08/2016 DAVIN DODSON MD Ot I25.10 ATHSCL HEART DISEASE OF [place] CORONARY 04/08/2016 DAVIN DODSON MD Ot I51.7 [...] GIDDINESS 04/08/2016 DAVIN DODSON MD Ot Z79.02 JAIL (CURRENT) USE OF ANTITHROMBOTI 04/08/2016 DAVIN DODSON MD Ot Z79.4 JAIL (CURRENT) USE OF INSULIN 04/08/2016 DAVIN DODSON MD Ot Z79.84 JAIL (CURRENT) USE OF ORAL HYPOGLYC 04/08/2016 DAVIN DODSON MD, Ot Z79.899 OTHER PARTS FABRICATOR (CURRENT) DRUG THERAPY 04/15/2016 NGHIA GUTIERREZ MD Ot E11. 9 TYPE 2 DIABETES MELLITUS WITHOUT COMPLIC 04/15/2016 NGHIA GUTIERREZ MD Ot E78. 2 MIXED HYPERLIPIDEMIA 04/15/2016 NGHIA GUTIERREZ MD Ot I10 ESSENTIAL (PRIMARY) HYPERTENSION 04/15/2016 NGHIA GUTIERREZ MD Ot I25. 10 ATHSCL HEART DISEASE OF [place] CORONARY 04/15/2016 NGHIA GUTIERREZ MD Ot R07. [...] Ot I25. 10 ATHSCL HEART DISEASE OF [place] CORONARY 04/18/2016 NGHIA GUTIERREZ MD Ot R07. [...] Ot I25. 10 ATHSCL HEART DISEASE OF [place] CORONARY 04/29/2016 NGHIA GUTIERREZ MD Ot R07. [...] Ot I25.1 0 ATHSCL HEART DISEASE OF [place] CORONARY 05/15/2016 WHIT ARRINGTON MD E Ot [...] ADULT 05/15/2016 WHIT ARRINGTON MD, Ot Z79.4 PARTS FABRICATOR (CURRENT) USE OF INSULIN 05/15/2016 WHIT ARRINGTON [...] 9 CHEST PAIN, UNSPECIFIED 11/05/2016 BATSHEVA LARKIN, KIYA R Ot R10. 2 PELVIC AND PERINEAL [...] MALIGN NEOPLASM OF [place] 06/17/2017 Ot 571.8 WHEELCHAIR VAN DRIVER JOAQUINA LIVER DIS NEC 06/17/2017 Ot 789.09 ABD OMINAL PAIN, OTHER SPECIFIED SITE 06/17/2017 Justyn MORRISSEY MD Ot 595.2 CHRONIC CYSTITIS NEC 06/17/2017 Justyn MORRISSEY MD Ot 599.0 URIN TRACT INFECTION NOS 06/17/2017 Justyn MORRISSEY MD Ot 595.9 CYSTITIS NOS 06/17/2017 MARY LARKIN, MARQUITA Ot V72.84 EXAM PRE-OPERATIVE NOS 06/17/2017 KIYA HERMAN MD R Ot 368. 9 [...] 784. 0 HEADACHE 06/17/2017 NWAGWU, ISIDORE O DEXIGRAPH OPERATOR Ot 250.00 DIAB JOSE WO COMPL, TYPE II OR UNSPEC TY 06/17/2017 NWAGWU, ISIDORE O DEXIGRAPH OPERATOR Ot 401.9 HYPERTENSION NOS 06/17/2017 NWAGWU, ISIDORE O DEXIGRAPH OPERATOR Ot 443.9 PERIPH VASCULAR DIS NOS 06/17/2017 [...] 9 CHEST PAIN, UNSPECIFIED 06/17/2017 MARIPOSA SANCHEZ DEXIGRAPH OPERATOR Ot J45.909 UNSPECIFIED ASTHMA, UNCOMPLICATED 06/17/2017 MARIPOSA SANCHEZ DEXIGRAPH OPERATOR Ot J98.4 OTHER DISORDERS OF LUNG 06/17/2017 MARIPOSA SANCHEZ DEXIGRAPH OPERATOR Ot R06.02 SHORTNESS OF BREATH 06/17/2017 BATSHEVA LARKIN, KIYA Wei Ot D64. 9 ANEMIA, UNSPECIFIED 06/17/2017 NGHIA GUTIERREZ MD Ot E11. 9 TYPE 2 DIABETES MELLITUS WITHOUT COMPLIC 06/17/2017 NGHIA GUTIERREZ MD Ot E78. 2 MIXED HYPERLIPIDEMIA 06/17/2017 NGHIA GUTIERREZ MD Ot I10 ESSENTIAL (PRIMARY) HYPERTENSION 06/17/2017 NGHIA GUTIERREZ MD Ot I25. 10 ATHSCL HEART DISEASE OF [place] CORONARY 06/17/2017 NGHIA GUTIERREZ MD Ot R07. 89 OTHER CHEST PAIN 06/17/2017 NGHIA GUTIERREZ MD Ot E11. 9 TYPE 2 DIABETES MELLITUS WITHOUT COMPLIC 06/17/2017 NGHIA GUTIERREZ MD Ot E78. 2 MIXED HYPERLIPIDEMIA 06/17/2017 NGHIA GUTIERREZ MD Ot I10 ESSENTIAL (PRIMARY) HYPERTENSION 06/17/2017 NGHIA GUTIERREZ MD Ot I25. 10 ATHSCL HEART DISEASE OF [place] CORONARY 06/17/2017 NGHIA GUTIERREZ MD Ot R07. [...] MALIGN NEOPLASM OF [place] 06/18/2017 Ot 571.8 WHEELCHAIR VAN DRIVER JOAQUINA LIVER DIS NEC 06/18/2017 Ot 789.09 ABD OMINAL PAIN, OTHER SPECIFIED SITE 06/18/2017 GHANSHYAM LARKIN, Justyn BADILLO Ot 595.2 CHRONIC CYSTITIS NEC 06/18/2017 Justyn MORRISSEY MD Ot 599.0 URIN TRACT INFECTION NOS 06/18/2017 Justyn MORRISSEY MD Ot 595.9 CYSTITIS NOS 06/18/2017 MARY LARKIN, MARQUITA Ot V72.84 EXAM PRE-OPERATIVE NOS 06/18/2017 KIYA HERMAN MD R Ot 368. 9 [...] HERMAN MD Ot 786. 2 COUGH 06/18/2017 BATSHEAV LARKIN, KIYA R Ot 786. 50 CHEST PAIN NOS 06/18/2017 BATSHEVA LARKIN, KIYA R Ot 784. 0 HEADACHE 06/18/2017 NWAGWU, ISIDORE O DEXIGRAPH OPERATOR Ot 250.00 DIAB JOSE WO COMPL, TYPE II OR UNSPEC TY 06/18/2017 NWAGWU, ISIDORE O DEXIGRAPH OPERATOR Ot 401.9 HYPERTENSION NOS 06/18/2017 NWAGWU, ISIDORE O DEXIGRAPH OPERATOR Ot 443.9 PERIPH VASCULAR DIS NOS 06/18/2017 [...] 9 CHEST PAIN, UNSPECIFIED 06/18/2017 MARIPOSA SANCHEZ DEXIGRAPH OPERATOR Ot J45.909 UNSPECIFIED ASTHMA, UNCOMPLICATED 06/18/2017 MARIPOSA SANCHEZ DEXIGRAPH OPERATOR Ot J98.4 OTHER DISORDERS OF LUNG 06/18/2017 MARIPOSA SANCHEZ DEXIGRAPH OPERATOR Ot R06.02 SHORTNESS OF BREATH 06/18/2017 BATSHEVA LARKIN, KIYA Wei Ot D64. 9 ANEMIA, UNSPECIFIED 06/18/2017 NGHIA GUTIERREZ MD Ot E11. 9 TYPE 2 DIABETES MELLITUS WITHOUT COMPLIC 06/18/2017 NGHIA GUTIERREZ MD Ot E78. 2 MIXED HYPERLIPIDEMIA 06/18/2017 NGHIA GUTIERREZ MD Ot I10 ESSENTIAL (PRIMARY) HYPERTENSION 06/18/2017 NGIHA GUTIERREZ MD Ot I25. 10 ATHSCL HEART DISEASE OF [place] CORONARY 06/18/2017 NGHIA GUTIERREZ MD Ot R07. 89 OTHER CHEST PAIN 06/18/2017 NGHIA GUTIERREZ MD Ot E11. 9 TYPE 2 DIABETES MELLITUS WITHOUT COMPLIC 06/18/2017 NGHIA GUTIERREZ MD Ot E78. 2 MIXED HYPERLIPIDEMIA 06/18/2017 NGHIA GUTIERREZ MD Ot I10 ESSENTIAL (PRIMARY) HYPERTENSION 06/18/2017 NGHIA GUTIERREZ MD Ot I25. 10 ATHSCL HEART DISEASE OF [place] CORONARY 06/18/2017 NGHIA GUTIERREZ MD Ot R07. [...] MALIGN NEOPLASM OF [place] 06/19/2017 Ot 571.8 WHEELCHAIR VAN DRIVER JOAQUINA LIVER DIS NEC 06/19/2017 Ot 789.09 [...] 599. 0 URIN TRACT INFECTION NOS 06/19/2017 KIYA HERMAN MD R Ot 786. 2 COUGH 06/19/2017 BATSHEVA LARKIN, KIYA R Ot 786. 50 CHEST PAIN NOS 06/19/2017 BATSHEVA LARKIN, KIYA Wei Ot 784. 0 HEADACHE 06/19/2017 NWAGWU, ISIDORE O DEXIGRAPH OPERATOR Ot 250.00 DIAB JOSE WO COMPL, TYPE II OR UNSPEC TY 06/19/2017 NWAGWU, ISIDORE O DEXIGRAPH OPERATOR Ot 401.9 HYPERTENSION NOS 06/19/2017 NWAGWU, ISIDORE O DEXIGRAPH OPERATOR Ot 443.9 PERIPH VASCULAR DIS NOS 06/19/2017 LARRY MURILLO DO Ot E03. 9 HYPOTHYROIDISM, UNSPECIFIED 06/19/2017 LARRY MURILOL DO Ot E11. 9 TYPE 2 DIABETES [...] 9 CHEST PAIN, UNSPECIFIED 06/19/2017 MARIPOSA SANCHEZ DEXIGRAPH OPERATOR Ot J45.909 UNSPECIFIED ASTHMA, UNCOMPLICATED 06/19/2017 MARIPOSA SANCHEZ DEXIGRAPH OPERATOR Ot J98.4 OTHER DISORDERS OF LUNG 06/19/2017 MARIPOSA SANCHEZ DEXIGRAPH OPERATOR Ot R06.02 SHORTNESS OF BREATH 06/19/2017 BATSHEVA LARKIN, KIYA Wei Ot D64. 9 ANEMIA, UNSPECIFIED 06/19/2017 NGHIA GUTIERREZ MD Ot E11. 9 TYPE 2 DIABETES MELLITUS WITHOUT COMPLIC 06/19/2017 NGHIA GUTIERREZ MD Ot E78. 2 MIXED HYPERLIPIDEMIA 06/19/2017 NGHIA GUTIERREZ MD Ot I10 ESSENTIAL (PRIMARY) HYPERTENSION 06/19/2017 NGHIA GUTIERREZ MD Ot I25. 10 ATHSCL HEART DISEASE OF [place] CORONARY 06/19/2017 NGHIA GUTIERREZ MD Ot R07. 89 OTHER CHEST PAIN 06/19/2017 NGHIA GUTIERREZ MD Ot E11. 9 TYPE 2 DIABETES MELLITUS WITHOUT COMPLIC 06/19/2017 NGHIA GUTIERREZ MD Ot E78. 2 MIXED HYPERLIPIDEMIA 06/19/2017 NGHIA GUTIERREZ MD Ot I10 ESSENTIAL (PRIMARY) HYPERTENSION 06/19/2017 NGHIA GUTIERREZ MD Ot I25. 10 ATHSCL HEART DISEASE OF [place] CORONARY 06/19/2017 NGHIA GUTIERREZ MD Ot R07. 89 OTHER CHEST PAIN 06/19/2017 SAM HEALY MD Ot I65. 23 OCCLUSION AND STENOSIS OF BILATERAL CAT 06/19/2017 SAM HEALY MD Ot Z01.810 ENCOUNTER FOR PREPROCEDURAL CARDIOVASCUL 06/19/2017 SAM HEALY MD Ot Z01.811 ENCOUNTER FOR PREPROCEDURAL RESPIRATORY 06/19/2017 MONET LARKIN, SAM Ot Z01.812 ENCOUNTER FOR PREPROCEDURAL LABORATORY E 06/19/2017 BATSHEVA LRAKIN, KIYA R Ot J18. 9 PNEUMONIA, UNSPECIFIED [...] Ot I25.10 ATH SCL HEART DISEASE OF [place] CORONARY 10/13/2017 Ot I42.9 CARD IOMYOPATHY, UNSPECIFIED 10/13/2017 Ot J44.1 WHEELCHAIR VAN DRIVER JOAQUINA OBSTRUCTIVE PULMONARY DISEASE W 10/13/2017 Ot [...] 10/13/[address] [facility] NON-INSTITUT (PRIVATE 10/13/2017 Ot Z79.02 TIFFANI G TERM (CURRENT) USE OF ANTITHROMBOTI 10/13/2017 Ot Z79.4 JAIL (CURRENT) USE OF INSULIN 10/13/2017 Ot Z79.51 [...] Ot R00.2 PALP ITATIONS 10/29/2017 MAGDY ZIEGLER DEXIGRAPH OPERATOR Ot E03 .9 HYPOTHYROIDISM, UNSPECIFIED 10/29/2017 MAGDY [...] APRN Ot I25.10 ATHSCL HEART DISEASE OF [place] CORONARY 10/29/2017 MAGDY ZIEGLER APRN Ot I42 .9 CARDIOMYOPATHY, UNSPECIFIED 10/29/2017 MAGDY ZIEGLER APRN Ot J44 .9 CHRONIC OBSTRUCTIVE PULMONARY DISEASE, U 10/29/2017 MAGDY ZIEGLER APRN Ot R10.13 EPIGASTRIC PAIN 10/29/2017 MAGDY ZIEGLER APRN Ot Z79.02 PARTS FABRICATOR (CURRENT) USE OF ANTITHROMBOTI 10/29/2017 MAGDY ZIEGLER APRN Ot Z79 .4 JAIL (CURRENT) USE OF INSULIN 10/29/2017 MAGDY ZIEGLER APRN Ot Z79.51 PARTS FABRICATOR (CURRENT) USE OF INHALED STERO 10/29/2017 MAGDY ZIEGLER APRN Ot Z79.52 PARTS FABRICATOR (CURRENT) USE OF SYSTEMIC STER 10/29/2017 MAGDY ZIEGLER APRN Ot Z79.82 PARTS FABRICATOR (CURRENT) USE OF ASPIRIN 10/29/2017 MAGDY ZIEGLER [...] APRN Ot Z88 .8 ALLERGY STATUS TO [facility] DRUG/MEDS/BIOL SUB 10/29/2017 MAGDY ZIEGLER APRN Ot [...] APRN Ot I25.10 ATHSCL HEART DISEASE OF [place] CORONARY 11/02/2017 MAGDY ZIEGLER APRN Ot I42 .9 CARDIOMYOPATHY, UNSPECIFIED 11/02/2017 MAGDY ZIEGLER APRN Ot J44 .9 CHRONIC OBSTRUCTIVE PULMONARY DISEASE, U 11/02/2017 MAGDY ZIEGLER APRN Ot R10.13 EPIGASTRIC PAIN 11/02/2017 MAGDY ZIEGLER APRN Ot Z79.02 PARTS FABRICATOR (CURRENT) USE OF ANTITHROMBOTI 11/02/2017 MAGDY ZIEGLER APRN Ot Z79 .4 PARTS FABRICATOR (CURRENT) USE OF INSULIN 11/02/2017 MAGDY ZIEGLER APRN Ot Z79.51 JAIL (CURRENT) USE OF INHALED STERO 11/02/2017 MAGDY ZIEGLER APRN Ot Z79.52 JAIL (CURRENT) USE OF SYSTEMIC STER 11/02/2017 MAGDY ZIEGLER APRN Ot Z79.82 JAIL (CURRENT) USE OF ASPIRIN 11/02/2017 MAGDY ZIEGLER [...] Ot I25. 10 ATHSCL HEART DISEASE OF [place] CORONARY 11/04/2017 LARRY MURILLO DO Ot I34. [...] 11/04/2017 LARRY MURILLO DO Ot Z79. 4 PARTS FABRICATOR (CURRENT) USE OF INSULIN 11/04/2017 LARRY MURILLO [...] APRN Ot I25.10 ATHSCL HEART DISEASE OF [place] CORONARY 11/05/2017 MAGDY ZIEGLER APRN Ot I42 .9 CARDIOMYOPATHY, UNSPECIFIED 11/05/2017 MAGDY ZIEGLER APRN Ot J44 .9 CHRONIC OBSTRUCTIVE PULMONARY DISEASE, U 11/05/2017 MAGDY ZIEGLER APRN Ot R10.13 EPIGASTRIC PAIN 11/05/2017 MAGDY ZIEGLER APRN Ot Z79.02 JAIL (CURRENT) USE OF ANTITHROMBOTI 11/05/2017 MAGDY ZIEGLER APRN Ot Z79 .4 PARTS FABRICATOR (CURRENT) USE OF INSULIN 11/05/2017 MAGDY ZIEGLER APRN Ot Z79.51 JAIL (CURRENT) USE OF INHALED STERO 11/05/2017 MAGDY ZIEGLER APRN Ot Z79.52 PARTS FABRICATOR (CURRENT) USE OF SYSTEMIC STER 11/05/2017 MAGDY ZIEGLER APRN Ot Z79.82 PARTS FABRICATOR (CURRENT) USE OF ASPIRIN 11/05/2017 MAGDY ZIEGLER [...] APRN Ot Z88 .8 ALLERGY STATUS TO [facility] DRUG/MEDS/BIOL SUB 11/05/2017 MAGDY ZIEGLER APRN Ot [...] Ot I25. 10 ATHSCL HEART DISEASE OF [place] CORONARY 11/10/2017 MARILY PANDEY DO Ot I42. [...] 11/10/2017 MARILY PANDEY DO Ot Z79. 4 PARTS FABRICATOR (CURRENT) USE OF INSULIN 11/10/2017 MARILY PANDEY DO Ot Z79. 82 PARTS FABRICATOR (CURRENT) USE OF ASPIRIN 11/10/2017 MARILY PANDEY [...] Ot I25. 10 ATHSCL HEART DISEASE OF [place] CORONARY 11/12/2017 MARILY PANDEY DO Ot I42. [...] 11/12/2017 MARILY PANDEY DO Ot Z79. 4 PARTS FABRICATOR (CURRENT) USE OF INSULIN 11/12/2017 MARILY PANDEY DO Ot Z79. 82 JAIL (CURRENT) USE OF ASPIRIN 11/12/2017 MARILY PANDEY DO Ot Z95. 5 PRESENCE OF CORONARY ANGIOPLASTY IMPLANT 12/03/2017 ABI PANG APRN Ot N63.20 UNSPECIFIED LUMP IN THE LEFT BREAST, UNS 12/03/2017 ABI PANG APRN Ot N64.4 MASTODYNIA 12/06/2017 NORA ESCAMILLA Ot D50.9 IRON DEFICIENCY ANEMIA, UNSPECIFIED 12/06/2017 NORA ESCAMILLA Ot E03.9 HYPOTHYROIDISM, UNSPECIFIED 12/06/2017 NORA ESCAMILLA Ot 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 12/06/2017 NORA ESCAMILLA Ot G47.33 OBSTRUCTIVE SLEEP APNEA (ADULT) (PEDIATR 12/06/2017 NORA ESCAMILLA Ot I12.9 HYPERTENSIVE CHRONIC KIDNEY DISEASE W ST 12/06/2017 NORA ESCAMILLA Ot I25.10 ATHSCL HEART DISEASE OF [place] CORONARY 12/06/2017 NORA ESCAMILLA Ot J45.909 UNSPECIFIED ASTHMA, UNCOMPLICATED 12/06/2017 FRANCINE, BOBAN N Ot K25.9 GASTRIC ULCER, UNSP ACUTE OR CHRONIC, 12/06/2017 FRANCINE, BOBAN N Ot K29.50 UNSPECIFIED CHRONIC GASTRITIS WITHOUT BL 12/06/2017 FRANCINE, BOBAN N Ot N18.3 CHRONIC KIDNEY DISEASE, STAGE 3 (MODERAT 12/06/2017 FRANCINESABRINAAN N Ot Z79.4 JAIL (CURRENT) USE OF INSULIN 12/06/2017 FRANCINE BOBAN N Ot Z79.82 PARTS FABRICATOR (CURRENT) USE OF ASPIRIN 12/06/2017 MARIPOSA SANCHEZ DEXIGRAPH OPERATOR Ot J98.4 OTHER DISORDERS OF LUNG 12/06/2017 MARIPOSA SANCHEZ APRN Ot R06.02 SHORTNESS OF BREATH 12/06/2017 MARIPOSA SANCHEZ DEXIGRAPH OPERATOR Ot R09.02 HYPOXEMIA 12/08/2017 SABRINA ESCAMILLAAN N Ot D50.9 IRON DEFICIENCY ANEMIA, UNSPECIFIED 12/08/2017 SABRINA ESCAMILLAAN N Ot E03.9 HYPOTHYROIDISM, UNSPECIFIED 12/08/2017 FRANCINE BOBAN N Ot 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 12/08/2017 FRANCINE BOBAN N Ot G47.33 OBSTRUCTIVE SLEEP APNEA (ADULT) (PEDIATR 12/08/2017 FRANCINE BOBAN N Ot I12.9 HYPERTENSIVE CHRONIC KIDNEY DISEASE W ST 12/08/2017 FRANCINE BOBAN N Ot I25.10 ATHSCL HEART DISEASE OF [place] CORONARY 12/08/2017 SABRINA ESCAMILLAAN N Ot J45.909 UNSPECIFIED ASTHMA, UNCOMPLICATED 12/08/2017 FRANCINE BOBAN N Ot K25.9 GASTRIC ULCER, UNSP ACUTE OR CHRONIC, 12/08/2017 FRANCINE, BOBAN N Ot K29.50 UNSPECIFIED CHRONIC GASTRITIS WITHOUT BL 12/08/2017 FRANCINE, BOBAN N Ot N18.3 CHRONIC KIDNEY DISEASE, STAGE 3 (MODERAT 12/08/2017 FRANCINE BOBAN N Ot Z79.4 PARTS FABRICATOR (CURRENT) USE OF INSULIN 12/08/2017 FRANCINESABRINAAN N Ot Z79.82 PARTS FABRICATOR (CURRENT) USE OF ASPIRIN 12/09/2017 MARIPOSA SANCHEZ DEXIGRAPH OPERATOR Ot J98.4 OTHER DISORDERS OF LUNG 12/09/2017 MARIPOSA SANCHEZ DEXIGRAPH OPERATOR Ot R06.02 SHORTNESS OF BREATH 12/09/2017 MARIPOSA SANCHEZ DEXIGRAPH OPERATOR Ot R09.02 HYPOXEMIA 12/22/2017 MARIPOSA SANCHEZ DEXIGRAPH OPERATOR Ot J98.4 OTHER DISORDERS OF LUNG 12/22/2017 MARIPOSA SANCHEZ DEXIGRAPH OPERATOR Ot R06.02 SHORTNESS OF BREATH 12/22/2017 MARIPOSA SANCHEZ DEXIGRAPH OPERATOR Ot R09.02 HYPOXEMIA 12/22/2017 MARIPOSA SANCHEZ DEXIGRAPH OPERATOR Ot J98.4 OTHER DISORDERS OF LUNG 12/22/2017 MARIPOSA SANCHEZ DEXIGRAPH OPERATOR Ot R06.02 SHORTNESS OF BREATH 12/22/2017 MARIPOSA SANCHEZ DEXIGRAPH OPERATOR Ot R09.02 HYPOXEMIA 12/22/2017 POLY, ABI R DEXIGRAPH OPERATOR Ot N63.20 UNSPECIFIED LUMP IN THE LEFT BREAST, UNS 12/22/2017 POLY, ABI R DEXIGRAPH OPERATOR Ot N64.4 MASTODYNIA 12/23/2017 MARIPOSA SANCHEZ DEXIGRAPH OPERATOR Ot J98.4 OTHER DISORDERS OF LUNG 12/23/2017 MARIPOSA SANCHEZ DEXIGRAPH OPERATOR Ot R06.02 SHORTNESS OF BREATH 12/23/2017 MARIPOSA SANCHEZ DEXIGRAPH OPERATOR Ot R09.02 HYPOXEMIA 12/28/2017 POLY, ABI R DEXIGRAPH OPERATOR Ot N63.20 UNSPECIFIED LUMP IN THE LEFT BREAST, UNS 12/28/2017 POLY, ABI R DEXIGRAPH OPERATOR Ot N64.4 MASTODYNIA 12/31/2017 MARIPOSA SANCHEZ DEXIGRAPH OPERATOR Ot J98.4 OTHER DISORDERS OF LUNG 12/31/2017 MARIPOSA SANCHEZ DEXIGRAPH OPERATOR Ot R06.02 SHORTNESS OF BREATH 12/31/2017 MARIPOSA SANCHEZ DEXIGRAPH OPERATOR Ot R09.02 HYPOXEMIA 01/05/2018 L[place]ISE LAND DEXIGRAPH OPERATOR Ot R30.0 DYSURIA 01/06/2018 [place] DEXIGRAPH OPERATOR Ot R30.0 DYSURIA 01/07/2018 MARIPOSA SANCHEZ DEXIGRAPH OPERATOR Ot J98.4 OTHER DISORDERS OF LUNG 01/07/2018 MARIPOSA SANCHEZ DEXIGRAPH OPERATOR Ot R06.02 SHORTNESS OF BREATH 01/07/2018 MARIPOSA SANCHEZ DEXIGRAPH OPERATOR Ot R09.02 HYPOXEMIA 01/12/2018 MARIPOSA SANCHEZ DEXIGRAPH OPERATOR Ot J98.4 OTHER DISORDERS OF LUNG 01/12/2018 MARIPOSA SANCHEZ DEXIGRAPH OPERATOR Ot R06.02 SHORTNESS OF BREATH 01/12/2018 MARIPOSA SANCHEZ DEXIGRAPH OPERATOR Ot R09.02 HYPOXEMIA 01/21/2018 MARIPOSA SANCHEZ DEXIGRAPH OPERATOR Ot J98.4 OTHER DISORDERS OF LUNG 01/21/2018 MARIPOSA SANCHEZ DEXIGRAPH OPERATOR Ot R06.02 SHORTNESS OF BREATH 01/21/2018 MARIPOSA SANCHEZ DEXIGRAPH OPERATOR Ot R09.02 HYPOXEMIA 01/21/2018 MARIPOSA SANCHEZ DEXIGRAPH OPERATOR Ot J98.4 OTHER DISORDERS OF LUNG 01/21/2018 MARIPOSA SANCHEZ DEXIGRAPH OPERATOR Ot R06.02 SHORTNESS OF BREATH 01/21/2018 MARIPOSA SANCHEZ DEXIGRAPH OPERATOR Ot R09.02 HYPOXEMIA 01/26/2018 MARIPOSA SANCHEZ DEXIGRAPH OPERATOR Ot J98.4 OTHER DISORDERS OF LUNG 01/26/2018 MARIPOSA SANCHEZ DEXIGRAPH OPERATOR Ot R06.02 SHORTNESS OF BREATH 01/26/2018 MARIPOSA SANCHEZ DEXIGRAPH OPERATOR Ot R09.02 HYPOXEMIA 01/27/2018 MARILY PANDEY DO [...] 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 02/01/2018 NORA ESCAMILLA Ot G47.33 OBSTRUCTIVE SLEEP APNEA (ADULT) (PEDIATR 02/01/2018 NORA ESCAMILLA Ot I12.9 HYPERTENSIVE CHRONIC KIDNEY DISEASE W ST 02/01/2018 NORA ESCAMILLA Ot I25.10 ATHSCL HEART DISEASE OF [place] CORONARY 02/01/2018 NORA ESCAMILLA Ot J45.909 UNSPECIFIED ASTHMA, UNCOMPLICATED 02/01/2018 NORA ESCAMILLA Ot K25.9 GASTRIC ULCER, UNSP ACUTE OR CHRONIC, 02/01/2018 NORA ESCAMILLA Ot K29.50 UNSPECIFIED CHRONIC GASTRITIS WITHOUT BL 02/01/2018 NORA ESCAMILLA Ot N18.3 CHRONIC KIDNEY DISEASE, STAGE 3 (MODERAT 02/01/2018 NORA ESCAMILLA Ot Z79.4 JAIL (CURRENT) USE OF INSULIN 02/01/2018 NORA ESCAMILLA Ot Z79.82 PARTS FABRICATOR (CURRENT) USE OF ASPIRIN 02/01/2018 MARIPOSA SANCHEZ [...] Ot I25. 10 ATHSCL HEART DISEASE OF [place] CORONARY 02/02/2018 MARILY PANDEY DO Ot J44. [...] 02/02/2018 MARILY PANDEY DO Ot Z79. 4 JAIL (CURRENT) USE OF INSULIN 02/02/2018 MAIRLY PANDEY DO Ot Z79. 82 PARTS FABRICATOR (CURRENT) USE OF ASPIRIN 02/02/2018 MARILY PANDEY DO Ot Z79.899 OTHER PARTS FABRICATOR (CURRENT) DRUG THERAPY 02/02/2018 MARILY PANDEY DO Ot Z95. 5 PRESENCE OF CORONARY ANGIOPLASTY IMPLANT 02/02/2018 NORA ESCAMILLA Ot D50.9 IRON DEFICIENCY ANEMIA, UNSPECIFIED 02/02/2018 NORA ESCAMILLA Ot E03.9 HYPOTHYROIDISM, UNSPECIFIED 02/02/2018 NORA ESCAMILLA Ot 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 02/02/2018 NORA ESCAMILLA Ot G47.33 OBSTRUCTIVE SLEEP APNEA (ADULT) (PEDIATR 02/02/2018 NORA ESCAMILLA Ot I12.9 HYPERTENSIVE CHRONIC KIDNEY DISEASE W ST 02/02/2018 NORA ESCAMILLA Ot I25.10 ATHSCL HEART DISEASE OF [place] CORONARY 02/02/2018 NORA ESCAMILLA Ot J45.909 UNSPECIFIED ASTHMA, UNCOMPLICATED 02/02/2018 NORA ESCAMILLA Ot K25.9 GASTRIC ULCER, UNSP ACUTE OR CHRONIC, 02/02/2018 NORA ESCAMILLA Ot K29.50 UNSPECIFIED CHRONIC GASTRITIS WITHOUT BL 02/02/2018 NORA ESCAMILLA Ot N18.3 CHRONIC KIDNEY DISEASE, STAGE 3 (MODERAT 02/02/2018 NORA ESCAMILLA Ot Z79.4 PARTS FABRICATOR (CURRENT) USE OF INSULIN 02/02/2018 NORA ESCAMILLA Ot Z79.82 JAIL (CURRENT) USE OF ASPIRIN 02/02/2018 MARIPOSA SANCHEZ [...] Ot I25. 10 ATHSCL HEART DISEASE OF [place] CORONARY 02/03/2018 MARILY PANDEY DO Ot J44. [...] 02/03/2018 MARILY PANDEY DO Ot Z79. 4 PARTS FABRICATOR (CURRENT) USE OF INSULIN 02/03/2018 MARILY PANDEY DO Ot Z79. 82 PARTS FABRICATOR (CURRENT) USE OF ASPIRIN 02/03/2018 MARILY PANDEY DO Ot Z79.899 OTHER JAIL (CURRENT) DRUG THERAPY 02/03/2018 MARILY PANDEY DO [...] APRN Ot I25.10 ATHSCL HEART DISEASE OF [place] CORONARY 02/24/2018 MARIPOSA SANCHEZ APRN Ot J45.909 [...] Ot I25. 10 ATHSCL HEART DISEASE OF [place] CORONARY 02/26/2018 MARILY PANDEY DO Ot J44. [...] 02/26/2018 MARILY PANDEY DO Ot Z79. 4 JAIL (CURRENT) USE OF INSULIN 02/26/2018 MARILY PANDEY DO Ot Z79. 82 PARTS FABRICATOR (CURRENT) USE OF ASPIRIN 02/26/2018 MARILY PANDEY DO Ot Z79.899 OTHER PARTS FABRICATOR (CURRENT) DRUG THERAPY 02/26/2018 DANNIE RUCKER MARILY Abdulkadir Ot Z95. 5 PRESENCE OF CORONARY ANGIOPLASTY IMPLANT 03/04/2018 MARIPOSA SANCHEZ DEXIGRAPH OPERATOR Ot J98.4 OTHER DISORDERS OF LUNG 03/04/2018 MARIPOSA SANCHEZ DEXIGRAPH OPERATOR Ot R06.02 SHORTNESS OF BREATH 03/04/2018 MARIPOSA SANCHEZ DEXIGRAPH OPERATOR Ot R09.02 HYPOXEMIA 03/18/2018 MARIPOSA SANCHEZ DEXIGRAPH OPERATOR Ot J98.4 OTHER DISORDERS OF LUNG 03/18/2018 MARIPOSA SANCHEZ DEXIGRAPH OPERATOR Ot R06.02 SHORTNESS OF BREATH 03/18/2018 MARIPOSA SANCHEZ APRN Ot R09.02 HYPOXEMIA 03/21/2018 NORA ESCAMILLA Ot D50.9 IRON DEFICIENCY ANEMIA, UNSPECIFIED 03/21/2018 NORA ESCAMILLA N Ot E03.9 HYPOTHYROIDISM, UNSPECIFIED 03/21/2018 NORA ESCAMILLA N Ot 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 03/21/2018 NORA ESCAMILLA Ot G47.33 OBSTRUCTIVE SLEEP APNEA (ADULT) (PEDIATR 03/21/2018 NORA ESCAMILLA N Ot I12.9 HYPERTENSIVE CHRONIC KIDNEY DISEASE W ST 03/21/2018 NORA ESCAMILLA N Ot I25.10 ATHSCL HEART DISEASE OF [place] CORONARY 03/21/2018 NORA ESCAMILLA Ot J45.909 UNSPECIFIED ASTHMA, UNCOMPLICATED 03/21/2018 NORA ESCAMILLA N Ot K25.9 GASTRIC ULCER, UNSP ACUTE OR CHRONIC, 03/21/2018 NORA ESCAMILLA Ot K29.50 UNSPECIFIED CHRONIC GASTRITIS WITHOUT BL 03/21/2018 NORA ESCAMILLA N Ot N18.3 CHRONIC KIDNEY DISEASE, STAGE 3 (MODERAT 03/21/2018 NORA ESCAMILLA N Ot Z79.4 PARTS FABRICATOR (CURRENT) USE OF INSULIN 03/21/2018 NORA ESCAMILLA Ot Z79.82 JAIL (CURRENT) USE OF ASPIRIN 03/22/2018 MARIPOSA SANCHEZ APRN Ot J98.4 OTHER DISORDERS OF LUNG 03/22/2018 MARIPOSA SANCHEZ DEXIGRAPH OPERATOR Ot R06.02 SHORTNESS OF BREATH 03/22/2018 MARIPOSA SANCHEZ DEXIGRAPH OPERATOR Ot R09.02 HYPOXEMIA 03/22/2018 NORA ESCAMILLA N Ot D50.9 IRON DEFICIENCY ANEMIA, UNSPECIFIED 03/22/2018 NORA ESCAMILLA N Ot E03.9 HYPOTHYROIDISM, UNSPECIFIED 03/22/2018 NORA ESCAMILLA N Ot 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 03/22/2018 NORA ESCAMILLA N Ot G47.33 OBSTRUCTIVE SLEEP APNEA (ADULT) (PEDIATR 03/22/2018 NORA ESCAMILLA N Ot I12.9 HYPERTENSIVE CHRONIC KIDNEY DISEASE W ST 03/22/2018 NORA ESCAMILLA N Ot I25.10 ATHSCL HEART DISEASE OF [place] CORONARY 03/22/2018 NORA ESCAMILLA N Ot J45.909 UNSPECIFIED ASTHMA, UNCOMPLICATED 03/22/2018 NORA ESCAMILLA N Ot K25.9 GASTRIC ULCER, UNSP ACUTE OR CHRONIC, 03/22/2018 NORA ESCAMILLA N Ot K29.50 UNSPECIFIED CHRONIC GASTRITIS WITHOUT BL 03/22/2018 NORA ESCAMILLA N Ot N18.3 CHRONIC KIDNEY DISEASE, STAGE 3 (MODERAT 03/22/2018 NORA ESCAMILLA N Ot Z79.4 PARTS FABRICATOR (CURRENT) USE OF INSULIN 03/22/2018 NORA ESCAMILLA N Ot Z79.82 JAIL (CURRENT) USE OF ASPIRIN 03/23/2018 MARIPOSA SANCHEZ DEXIGRAPH OPERATOR Ot J98.4 OTHER DISORDERS OF LUNG 03/23/2018 MARIPOSA SANCHEZ DEXIGRAPH OPERATOR Ot R06.02 SHORTNESS OF BREATH 03/23/2018 MARIPOSA SANCHEZ DEXIGRAPH OPERATOR Ot R09.02 HYPOXEMIA 03/25/2018 MARIPOSA SANCHEZ DEXIGRAPH OPERATOR Ot I05.9 RHEUMATIC MITRAL VALVE DISEASE, UNSPECIF 03/25/2018 MARIPOSA SANCHEZ DEXIGRAPH OPERATOR Ot I25.10 ATHSCL HEART DISEASE OF [place] CORONARY 03/25/2018 MARIPOSA SANCHEZ DEXIGRAPH OPERATOR Ot J45.909 UNSPECIFIED ASTHMA, UNCOMPLICATED 03/25/2018 MARIPOSA SANCHEZ DEXIGRAPH OPERATOR Ot J98.4 OTHER DISORDERS OF LUNG 03/26/2018 MARIPOSA SANCHEZ DEXIGRAPH OPERATOR Ot G47.33 OBSTRUCTIVE SLEEP APNEA (ADULT) (PEDIATR 03/27/2018 NORA ESCAMILLA N Ot D50.9 IRON DEFICIENCY ANEMIA, UNSPECIFIED 03/27/2018 NORA ESCAMILLA N Ot E03.9 HYPOTHYROIDISM, UNSPECIFIED 03/27/2018 NORA ESCAMILLA Wilfrido Ot 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 03/27/2018 NORA ESCAMILLA Wilfrido Ot G47.33 OBSTRUCTIVE SLEEP APNEA (ADULT) (PEDIATR 03/27/2018 NORA ESCAMILLA Wilfrido Ot I12.9 HYPERTENSIVE CHRONIC KIDNEY DISEASE W ST 03/27/2018 NORA ESCAMILLA Wilfrido Ot I25.10 ATHSCL HEART DISEASE OF [place] CORONARY 03/27/2018 FRANCINE NORA Anna Ot J45.909 UNSPECIFIED ASTHMA, UNCOMPLICATED 03/27/2018 FRANCINE SABRINANAZARIO N Ot K25.9 GASTRIC ULCER, UNSP ACUTE OR CHRONIC, 03/27/2018 FRANCINE NORA N Ot K29.50 UNSPECIFIED CHRONIC GASTRITIS WITHOUT BL 03/27/2018 FRANCINE NORA Anna Ot N18.3 CHRONIC KIDNEY DISEASE, STAGE 3 (MODERAT 03/27/2018 NORA ESCAMILLA Wilfrido Ot Z79.4 PARTS FABRICATOR (CURRENT) USE OF INSULIN 03/27/2018 FRANCINENORA Ot Z79.82 JAIL (CURRENT) USE OF ASPIRIN 03/28/2018 MARIPOSA SANCHEZ DEXIGRAPH OPERATOR Ot J98.4 OTHER DISORDERS OF LUNG 03/28/2018 MARIPOSA SANCHEZ DEXIGRAPH OPERATOR Ot R06.02 SHORTNESS OF BREATH 03/28/2018 MARIPOSA SANCHEZ DEXIGRAPH OPERATOR Ot R09.02 HYPOXEMIA 03/30/2018 MARIPOSA SANCHEZ DEXIGRAPH OPERATOR Ot J98.4 OTHER DISORDERS OF LUNG 03/30/2018 MARIPOSA SANCHEZ DEXIGRAPH OPERATOR Ot R06.02 SHORTNESS OF BREATH 03/30/2018 MARIPOSA SANCHEZ DEXIGRAPH OPERATOR Ot R09.02 HYPOXEMIA 03/30/2018 MARIPOSA SANCHEZ DEXIGRAPH OPERATOR Ot G47.33 OBSTRUCTIVE SLEEP APNEA (ADULT) (PEDIATR 03/30/2018 MARIPOSA SANCHEZ DEXIGRAPH OPERATOR Ot G47.33 OBSTRUCTIVE SLEEP APNEA (ADULT) (PEDIATR 03/31/2018 MARIPOSA SANCHEZ DEXIGRAPH OPERATOR Ot G47.33 OBSTRUCTIVE SLEEP APNEA (ADULT) (PEDIATR 03/31/2018 MARIPOSA SANCHEZ DEXIGRAPH OPERATOR Ot J45.909 UNSPECIFIED ASTHMA, UNCOMPLICATED 03/31/2018 MARIPOSA SANCHEZ DEXIGRAPH OPERATOR Ot J98.4 OTHER DISORDERS OF LUNG 03/31/2018 MARIPOSA SANCHEZ DEXIGRAPH OPERATOR Ot R06.02 SHORTNESS OF BREATH 03/31/2018 MARIPOSA SANCHEZ DEXIGRAPH OPERATOR Ot R07.89 OTHER CHEST PAIN 03/31/2018 MARIPOSA SANCHEZ DEXIGRAPH OPERATOR Ot R09.02 HYPOXEMIA 03/31/2018 MARIPOSA SANCHEZ DEXIGRAPH OPERATOR Ot I05.9 RHEUMATIC MITRAL VALVE DISEASE, UNSPECIF 03/31/2018 MARIPOSA SANCHEZ DEXIGRAPH OPERATOR Ot I25.10 ATHSCL HEART DISEASE OF [place] CORONARY 03/31/2018 MARIPOSA SANCHEZ DEXIGRAPH OPERATOR Ot J45.909 UNSPECIFIED ASTHMA, UNCOMPLICATED 03/31/2018 MARIPOSA SANCHEZ DEXIGRAPH OPERATOR Ot J98.4 OTHER DISORDERS OF LUNG 03/31/2018 MARIPOSA SANCHEZ DEXIGRAPH OPERATOR Ot G47.33 OBSTRUCTIVE SLEEP APNEA (ADULT) (PEDIATR 03/31/2018 MARIPOSA SANCHEZ DEXIGRAPH OPERATOR Ot J45.909 UNSPECIFIED ASTHMA, UNCOMPLICATED 03/31/2018 MARIPOSA SANCHEZ DEXIGRAPH OPERATOR Ot J98.4 OTHER DISORDERS OF LUNG 03/31/2018 MARIPOSA SANCHEZ DEXIGRAPH OPERATOR Ot R06.02 SHORTNESS OF BREATH 03/31/2018 MARIPOSA SANCHEZ DEXIGRAPH OPERATOR Ot R07.89 OTHER CHEST PAIN 03/31/2018 MARIPOSA SANCHEZ DEXIGRAPH OPERATOR Ot R09.02 HYPOXEMIA 04/01/2018 MARIPOSA SANCHEZ DEXIGRAPH OPERATOR Ot J98.4 OTHER DISORDERS OF LUNG 04/01/2018 MARIPOSA SANCHEZ DEXIGRAPH OPERATOR Ot R06.02 SHORTNESS OF BREATH 04/01/2018 MARIPOSA SANCHEZ DEXIGRAPH OPERATOR Ot R09.02 HYPOXEMIA 04/06/2018 MARIPOSA SANCHEZ DEXIGRAPH OPERATOR Ot J98.4 OTHER DISORDERS OF LUNG 04/06/2018 MARIPOSA SANCHEZ DEXIGRAPH OPERATOR Ot R06.02 SHORTNESS OF BREATH 04/06/2018 MARIPOSA SANCHEZ DEXIGRAPH OPERATOR Ot R09.02 HYPOXEMIA 04/08/2018 MARIPOSA SANCHEZ DEXIGRAPH OPERATOR Ot J98.4 OTHER DISORDERS OF LUNG 04/08/2018 MARIPOSA SANCHEZ DEXIGRAPH OPERATOR Ot R06.02 SHORTNESS OF BREATH 04/08/2018 MARIPOSA SANCHEZ DEXIGRAPH OPERATOR Ot R09.02 HYPOXEMIA 04/13/2018 MARIPOSA SANCHEZ DEXIGRAPH OPERATOR Ot J98.4 OTHER DISORDERS OF LUNG 04/13/2018 MARIPOSA SANCHEZ DEXIGRAPH OPERATOR Ot R06.02 SHORTNESS OF BREATH 04/13/2018 MARIPOSA SANCHEZ DEXIGRAPH OPERATOR Ot R09.02 HYPOXEMIA 04/17/2018 MARIPOSA SANCHEZ DEXIGRAPH OPERATOR Ot J98.4 OTHER DISORDERS OF LUNG 04/17/2018 MARIPOSA SANCHEZ DEXIGRAPH OPERATOR Ot R06.02 SHORTNESS OF BREATH 04/17/2018 MARIPOSA SANCHEZ DEXIGRAPH OPERATOR Ot R09.02 HYPOXEMIA 04/21/2018 NORA ESCAMILLA N Ot D50.9 IRON DEFICIENCY ANEMIA, UNSPECIFIED 04/21/2018 NORA ESCAMILLA N Ot E03.9 HYPOTHYROIDISM, UNSPECIFIED 04/21/2018 NORA ESCAMILLA N Ot 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 04/21/2018 NORA ESCAMILLA N Ot G47.33 OBSTRUCTIVE SLEEP APNEA (ADULT) (PEDIATR 04/21/2018 NORA ESCAMILLA N Ot I12.9 HYPERTENSIVE CHRONIC KIDNEY DISEASE W ST 04/21/2018 NORA ESCAMILLA N Ot I25.10 ATHSCL HEART DISEASE OF [place] CORONARY 04/21/2018 NORA ESCAMILLA N Ot J45.909 UNSPECIFIED ASTHMA, UNCOMPLICATED 04/21/2018 NORA ESCMAILLA N Ot K25.9 GASTRIC ULCER, UNSP ACUTE OR CHRONIC, 04/21/2018 NORA ESCAMILLA N Ot K29.50 UNSPECIFIED CHRONIC GASTRITIS WITHOUT BL 04/21/2018 NORA ESCAMILLA N Ot N18.3 CHRONIC KIDNEY DISEASE, STAGE 3 (MODERAT 04/21/2018 NORA ESCAMILLA N Ot Z79.4 PARTS FABRICATOR (CURRENT) USE OF INSULIN 04/21/2018 NORA ESCAMILLA N Ot Z79.82 JAIL (CURRENT) USE OF ASPIRIN 04/22/2018 NORA ESCAMILLA N Ot D50.9 IRON DEFICIENCY ANEMIA, UNSPECIFIED 04/22/2018 NORA ESCAMILLA N Ot E03.9 HYPOTHYROIDISM, UNSPECIFIED 04/22/2018 NORA ESCAMILLA N Ot 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 04/22/2018 NORA ESCAMILLA N Ot G47.33 OBSTRUCTIVE SLEEP APNEA (ADULT) (PEDIATR 04/22/2018 NORA ESCAMILLA N Ot I12.9 HYPERTENSIVE CHRONIC KIDNEY DISEASE W ST 04/22/2018 NORA ESCAMILLA N Ot I25.10 ATHSCL HEART DISEASE OF [place] CORONARY 04/22/2018 NORA ESCAMILLA Wilfrido Ot J45.909 UNSPECIFIED ASTHMA, UNCOMPLICATED 04/22/2018 NORA ESCAMILLA Wilfrido Ot K25.9 GASTRIC ULCER, UNSP ACUTE OR CHRONIC, 04/22/2018 NORA ESCAMILLA Wilfrido Ot K29.50 UNSPECIFIED CHRONIC GASTRITIS WITHOUT BL 04/22/2018 NORA ESCAMILLA Wilfrido Ot N18.3 CHRONIC KIDNEY DISEASE, STAGE 3 (MODERAT 04/22/2018 NORA ESCAMILLA Wilfrido Ot Z79.4 PARTS FABRICATOR (CURRENT) USE OF INSULIN 04/22/2018 FRANCINE SABRINANAZARIO Wilfrido Ot Z79.82 PARTS FABRICATOR (CURRENT) USE OF ASPIRIN 04/27/2018 MARIPOSA SANCHEZ DEXIGRAPH OPERATOR Ot J98.4 OTHER DISORDERS OF LUNG 04/27/2018 MARIPOSA SANCHEZ DEXIGRAPH OPERATOR Ot R06.02 SHORTNESS OF BREATH 04/27/2018 MARIPOSA SANCHEZ DEXIGRAPH OPERATOR Ot R09.02 HYPOXEMIA 05/04/2018 MARIPOSA SANCHEZ DEXIGRAPH OPERATOR Ot J98.4 OTHER DISORDERS OF LUNG 05/04/2018 MARIPOSA SANCHEZ DEXIGRAPH OPERATOR Ot R06.02 SHORTNESS OF BREATH 05/04/2018 MARIPOSA SANCHEZ DEXIGRAPH OPERATOR Ot R09.02 HYPOXEMIA 05/05/2018 MARIPOSA SANCHEZ DEXIGRAPH OPERATOR Ot J98.4 OTHER DISORDERS OF LUNG 05/05/2018 MARIPOSA SANCHEZ DEXIGRAPH OPERATOR Ot R06.02 SHORTNESS OF BREATH 05/05/2018 MARIPOSA SANCHEZ DEXIGRAPH OPERATOR Ot R09.02 HYPOXEMIA 05/07/2018 MARIPOSA SANCHEZ DEXIGRAPH OPERATOR Ot J98.4 OTHER DISORDERS OF LUNG 05/07/2018 MARIPOSA SANCHEZ DEXIGRAPH OPERATOR Ot R06.02 SHORTNESS OF BREATH 05/07/2018 MARIPOSA SANCHEZ DEXIGRAPH OPERATOR Ot R09.02 HYPOXEMIA 05/08/2018 MARIPOSA SANCHEZ DEXIGRAPH OPERATOR Ot G47.33 OBSTRUCTIVE SLEEP APNEA (ADULT) (PEDIATR 05/08/2018 MARIPOSA SANCHEZ DEXIGRAPH OPERATOR Ot J30.9 ALLERGIC RHINITIS, UNSPECIFIED 05/08/2018 MARIPOSA SANCHEZ DEXIGRAPH OPERATOR Ot J45.909 UNSPECIFIED ASTHMA, UNCOMPLICATED 05/08/2018 MARIPOSA SANCHEZ DEXIGRAPH OPERATOR Ot J98.4 OTHER DISORDERS OF LUNG 05/08/2018 DANIELMARIPOSA GUTIERRES DEXIGRAPH OPERATOR Ot R06.02 SHORTNESS OF BREATH 05/08/2018 SATHYA SANCHEZINE E DEXIGRAPH OPERATOR Ot R07.89 OTHER CHEST PAIN 05/08/2018 MARIPOSA SANCHEZ DEXIGRAPH OPERATOR Ot R09.02 HYPOXEMIA 05/10/2018 DANIEL, MARIPOSA E DEXIGRAPH OPERATOR Ot G47.33 OBSTRUCTIVE SLEEP APNEA (ADULT) (PEDIATR 05/10/2018 SATHYA SANCHEZINE E DEXIGRAPH OPERATOR Ot J30.9 ALLERGIC RHINITIS, UNSPECIFIED 05/10/2018 SATHYA SANCHEZINE E DEXIGRAPH OPERATOR Ot J45.909 UNSPECIFIED ASTHMA, UNCOMPLICATED 05/10/2018 DANIELSATHYA GUTIERRESINE E DEXIGRAPH OPERATOR Ot J98.4 OTHER DISORDERS OF LUNG 05/10/2018 MARIPOSA SANCHEZ E DEXIGRAPH OPERATOR Ot R06.02 SHORTNESS OF BREATH 05/10/2018 MARIPOSA SANCHEZ DEXIGRAPH OPERATOR Ot R07.89 OTHER CHEST PAIN 05/10/2018 MARIPOSA SANCHEZ E DEXIGRAPH OPERATOR Ot R09.02 HYPOXEMIA 05/11/2018 MARIPOSA SANCHEZ DEXIGRAPH OPERATOR Ot J98.4 OTHER DISORDERS OF LUNG 05/11/2018 MARIPOSA SANCHEZ DEXIGRAPH OPERATOR Ot R06.02 SHORTNESS OF BREATH 05/11/2018 SATHYA SANCHEZINE Zafar DEXIGRAPH OPERATOR Ot R09.02 HYPOXEMIA 05/13/2018 SATHYA SANCHEZINE E DEXIGRAPH OPERATOR Ot J98.4 OTHER DISORDERS OF LUNG 05/13/2018 MARIPOSA SANCHEZ DEXIGRAPH OPERATOR Ot R06.02 SHORTNESS OF BREATH 05/13/2018 MARIPOSA SANCHEZ DEXIGRAPH OPERATOR Ot R09.02 HYPOXEMIA 05/20/2018 SATHYA SANCHEZINE E DEXIGRAPH OPERATOR Ot J98.4 OTHER DISORDERS OF LUNG 05/20/2018 SATHYA SANCHEZINE E DEXIGRAPH OPERATOR Ot R06.02 SHORTNESS OF BREATH 05/20/2018 SATHYA SANCHEZINE E DEXIGRAPH OPERATOR Ot R09.02 HYPOXEMIA 05/27/2018 SATHYA SANCHEZINE E DEXIGRAPH OPERATOR Ot J98.4 OTHER DISORDERS OF LUNG 05/27/2018 MARIPOSA SANCHEZ DEXIGRAPH OPERATOR Ot R06.02 SHORTNESS OF BREATH 05/27/2018 SATHYA SANCHEZINE E DEXIGRAPH OPERATOR Ot R09.02 HYPOXEMIA 05/28/2018 NORA ESCAMILLA Ot D50.9 IRON DEFICIENCY ANEMIA, UNSPECIFIED 05/28/2018 FRANCINE, BOBAN N Ot E03.9 HYPOTHYROIDISM, UNSPECIFIED 05/28/2018 NORA ESCAMILLA N Ot 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 05/28/2018 NORA ESCAMILLA N Ot G47.33 OBSTRUCTIVE SLEEP APNEA (ADULT) (PEDIATR 05/28/2018 NORA ESCAMILLA N Ot I12.9 HYPERTENSIVE CHRONIC KIDNEY DISEASE W ST 05/28/2018 NORA ESCAMILLA N Ot I25.10 ATHSCL HEART DISEASE OF [place] CORONARY 05/28/2018 NORA ESCAMILLA Ot J45.909 UNSPECIFIED ASTHMA, UNCOMPLICATED 05/28/2018 NORA ESCAMILLA N Ot K25.9 GASTRIC ULCER, UNSP ACUTE OR CHRONIC, 05/28/2018 NORA ESCAMILLA N Ot K29.50 UNSPECIFIED CHRONIC GASTRITIS WITHOUT BL 05/28/2018 NORA ESCAMILLA N Ot N18.3 CHRONIC KIDNEY DISEASE, STAGE 3 (MODERAT 05/28/2018 NORA ESCAMILLA N Ot Z79.4 JAIL (CURRENT) USE OF INSULIN 05/28/2018 NORA ESCAMILLA N Ot Z79.82 PARTS FABRICATOR (CURRENT) USE OF ASPIRIN 06/01/2018 MARIPOSA SANCHEZ DEXIGRAPH OPERATOR Ot J98.4 OTHER DISORDERS OF LUNG 06/01/2018 MARIPOSA SANCHEZ DEXIGRAPH OPERATOR Ot R06.02 SHORTNESS OF BREATH 06/01/2018 MARIPOSA SANCHEZ DEXIGRAPH OPERATOR Ot R09.02 HYPOXEMIA 06/01/2018 MARIPOSA SANCHEZ DEXIGRAPH OPERATOR Ot J98.4 OTHER DISORDERS OF LUNG 06/01/2018 MARIPOSA SANCHEZ DEXIGRAPH OPERATOR Ot R06.02 SHORTNESS OF BREATH 06/01/2018 MARIPOSA SANCHEZ DEXIGRAPH OPERATOR Ot R09.02 HYPOXEMIA 06/01/2018 NORA ESCAMILLA N Ot D50.9 IRON DEFICIENCY ANEMIA, UNSPECIFIED 06/01/2018 NORA ESCAMILLA N Ot E03.9 HYPOTHYROIDISM, UNSPECIFIED 06/01/2018 NORA ESCAMILLA N Ot 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 06/01/2018 NORA ESCAMILLA N Ot G47.33 OBSTRUCTIVE SLEEP APNEA (ADULT) (PEDIATR 06/01/2018 NORA ESCAMILLA N Ot I12.9 HYPERTENSIVE CHRONIC KIDNEY DISEASE W ST 06/01/2018 NORA ESCAMILLA N Ot I25.10 ATHSCL HEART DISEASE OF [place] CORONARY 06/01/2018 NORA ESCAMILLA Wilfrido Ot J45.909 UNSPECIFIED ASTHMA, UNCOMPLICATED 06/01/2018 NORA ESCAMILLA Wilfrido Ot K25.9 GASTRIC ULCER, UNSP ACUTE OR CHRONIC, 06/01/2018 NORA ESCAMILLA Wilfrido Ot K29.50 UNSPECIFIED CHRONIC GASTRITIS WITHOUT BL 06/01/2018 NORA ESCAMILLA Wilfrido Ot N18.3 CHRONIC KIDNEY DISEASE, STAGE 3 (MODERAT 06/01/2018 NORA ESCAMILLA Wilfrido Ot Z79.4 PARTS FABRICATOR (CURRENT) USE OF INSULIN 06/01/2018 FRANCINE SABRINANAZARIO Wilfrido Ot Z79.82 JAIL (CURRENT) USE OF ASPIRIN 06/01/2018 TO GRAY [...] UNSPECIFIED ABNORMALITIES OF HEART BEAT 06/01/2018 TO RGAY MD Ot Z79. 4 JAIL (CURRENT) USE OF INSULIN 06/01/2018 TO GRAY MD Ot Z79. 51 JAIL (CURRENT) USE OF INHALED STERO 06/01/2018 TO GRAY MD Ot Z79. 82 PARTS FABRICATOR (CURRENT) USE OF ASPIRIN 06/01/2018 TO GRAY [...] 06/03/2018 TO GRAY MD Ot Z79. 4 PARTS FABRICATOR (CURRENT) USE OF INSULIN 06/03/2018 TO GRAY MD Ot Z79. 51 PARTS FABRICATOR (CURRENT) USE OF INHALED STERO 06/03/2018 TO GRAY MD Ot Z79. 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 07/20/2018 NORA ESCAMILLA Ot G47.33 OBSTRUCTIVE SLEEP APNEA (ADULT) (PEDIATR 07/20/2018 NORA ESCAMILLA Ot I12.9 HYPERTENSIVE CHRONIC KIDNEY DISEASE W ST 07/20/2018 NORA ESCAMILLA Ot I25.10 ATHSCL HEART DISEASE OF [place] CORONARY 07/20/2018 FRANCINE, BOBAN N Ot J45.909 UNSPECIFIED ASTHMA, UNCOMPLICATED 07/20/2018 FRANCINE, BOBAN N Ot K25.9 GASTRIC ULCER, UNSP ACUTE OR CHRONIC, 07/20/2018 FRANCINE, BOBAN N Ot K29.50 UNSPECIFIED CHRONIC GASTRITIS WITHOUT BL 07/20/2018 FRANCINE, BOBAN N Ot N18.3 CHRONIC KIDNEY DISEASE, STAGE 3 (MODERAT 07/20/2018 FRANCINE BOBAN N Ot Z79.4 PARTS FABRICATOR (CURRENT) USE OF INSULIN 07/20/2018 FRANCINE, BOBAN N Ot Z79.82 PARTS FABRICATOR (CURRENT) USE OF ASPIRIN 07/21/2018 FRANCINE, BOBAN N Ot D50.9 IRON DEFICIENCY ANEMIA, UNSPECIFIED 07/21/2018 FRANCINE, BOBAN N Ot E03.9 HYPOTHYROIDISM, UNSPECIFIED 07/21/2018 FRANCINE, BOBAN N Ot 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 07/21/2018 FRANCINE, BOBAN N Ot G47.33 OBSTRUCTIVE SLEEP APNEA (ADULT) (PEDIATR 07/21/2018 FRANCINE BOBAN N Ot I12.9 HYPERTENSIVE CHRONIC KIDNEY DISEASE W ST 07/21/2018 FRANCINE BOBAN N Ot I25.10 ATHSCL HEART DISEASE OF [place] CORONARY 07/21/2018 SABRINA ESCAMILLAAN N Ot J45.909 UNSPECIFIED ASTHMA, UNCOMPLICATED 07/21/2018 FRANCINE, BOBAN N Ot K25.9 GASTRIC ULCER, UNSP ACUTE OR CHRONIC, 07/21/2018 FRANCINE BOBAN N Ot K29.50 UNSPECIFIED CHRONIC GASTRITIS WITHOUT BL 07/21/2018 FRANCINE BOBAN N Ot N18.3 CHRONIC KIDNEY DISEASE, STAGE 3 (MODERAT 07/21/2018 FRANCINE BOBAN N Ot Z79.4 PARTS FABRICATOR (CURRENT) USE OF INSULIN 07/21/2018 FRANCINE, BOBAN N Ot Z79.82 JAIL (CURRENT) USE OF ASPIRIN 10/28/2018 FRANCINE, BOBAN N Ot D50.9 IRON DEFICIENCY ANEMIA, UNSPECIFIED 10/28/2018 FRANCINE, BOBAN N Ot E03.9 HYPOTHYROIDISM, UNSPECIFIED 10/28/2018 FRANCINE, BOBAN N Ot 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 10/28/2018 FRANCINE, BOBAN N Ot G47.33 OBSTRUCTIVE SLEEP APNEA (ADULT) (PEDIATR 10/28/2018 NORA ESCAMILLA Ot I12.9 HYPERTENSIVE CHRONIC KIDNEY DISEASE W ST 10/28/2018 NORA ESCAMILLA Ot I25.10 ATHSCL HEART DISEASE OF [place] CORONARY 10/28/2018 NORA ESCAMILLA Ot J45.909 UNSPECIFIED ASTHMA, UNCOMPLICATED 10/28/2018 NORA ESCAMILLA Ot K25.9 GASTRIC ULCER, UNSP ACUTE OR CHRONIC, 10/28/2018 NORA ESCAMILLA Ot K29.50 UNSPECIFIED CHRONIC GASTRITIS WITHOUT BL 10/28/2018 NORA ESCAMILLA Ot N18.3 CHRONIC KIDNEY DISEASE, STAGE 3 (MODERAT 10/28/2018 NORA ESCAMILLA Ot Z79.4 PARTS FABRICATOR (CURRENT) USE OF INSULIN 10/28/2018 NORA ESCAMILLA Ot Z79.82 PARTS FABRICATOR (CURRENT) USE OF ASPIRIN 11/05/2018 MAGDY ZIEGLER [...] APRN Ot I25.10 ATHSCL HEART DISEASE OF [place] CORONARY 11/05/2018 MADGY ZIEGLER APRN Ot I42 .9 CARDIOMYOPATHY, UNSPECIFIED 11/05/2018 MAGDY ZIEGLER APRN Ot J44 .9 CHRONIC OBSTRUCTIVE PULMONARY DISEASE, U 11/05/2018 MAGDY ZIEGLER APRN Ot M32 .9 SYSTEMIC LUPUS ERYTHEMATOSUS, UNSPECIFIE 11/05/2018 MAGDY ZIEGLER APRN Ot R06.02 SHORTNESS OF BREATH 11/05/2018 MAGDY ZIEGLER APRN Ot R07.89 OTHER CHEST PAIN 11/05/2018 MAGDY ZIEGLER APRN Ot Z79.82 JAIL (CURRENT) USE OF ASPIRIN 11/05/2018 MAGDY ZIEGLER APRN Ot Z79.84 PARTS FABRICATOR (CURRENT) USE OF ORAL HYPOGLYC 11/05/2018 MAGDY [...] 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 12/12/2018 NORA ESCAMILLA Ot G47.33 OBSTRUCTIVE SLEEP APNEA (ADULT) (PEDIATR 12/12/2018 NORA ESCAMILLA Ot I12.9 HYPERTENSIVE CHRONIC KIDNEY DISEASE W ST 12/12/2018 NORA ESCAMILLA Ot I25.10 ATHSCL HEART DISEASE OF [place] CORONARY 12/12/2018 NORA ESCAMILLA Ot J45.909 UNSPECIFIED ASTHMA, UNCOMPLICATED 12/12/2018 NORA ESCAMILLA Ot K25.9 GASTRIC ULCER, UNSP ACUTE OR CHRONIC, 12/12/2018 NORA ESCAMILLA Ot K29.50 UNSPECIFIED CHRONIC GASTRITIS WITHOUT BL 12/12/2018 NORA ESCAMILLA Ot N18.3 CHRONIC KIDNEY DISEASE, STAGE 3 (MODERAT 12/12/2018 NORA ESCAMILLA Ot Z79.4 JAIL (CURRENT) USE OF INSULIN 12/12/2018 NORA ESCAMILLA Ot Z79.82 JAIL (CURRENT) USE OF ASPIRIN 12/13/2018 FRANCINE, BOBAN N Ot D50.9 IRON DEFICIENCY ANEMIA, UNSPECIFIED 12/13/2018 FRANCINE, BOBAN N Ot E03.9 HYPOTHYROIDISM, UNSPECIFIED 12/13/2018 FRANCINE, BOBAN N Ot 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 12/13/2018 FRANCINE, BOBAN N Ot G47.33 OBSTRUCTIVE SLEEP APNEA (ADULT) (PEDIATR 12/13/2018 FRANCINE, BOBAN N Ot I12.9 HYPERTENSIVE CHRONIC KIDNEY DISEASE W ST 12/13/2018 FRANCINE, BOBAN N Ot I25.10 ATHSCL HEART DISEASE OF [place] CORONARY 12/13/2018 FRANCINE, BOBAN N Ot J45.909 UNSPECIFIED ASTHMA, UNCOMPLICATED 12/13/2018 FRANCINE, BOBAN N Ot K25.9 GASTRIC ULCER, UNSP ACUTE OR CHRONIC, 12/13/2018 FRANCINE, BOBAN N Ot K29.50 UNSPECIFIED CHRONIC GASTRITIS WITHOUT BL 12/13/2018 FRANCINE, BOBAN N Ot N18.3 CHRONIC KIDNEY DISEASE, STAGE 3 (MODERAT 12/13/2018 FRANCINE, BOBAN N Ot Z79.4 PARTS FABRICATOR (CURRENT) USE OF INSULIN 12/13/2018 FRANCINE, BOBAN N Ot Z79.82 JAIL (CURRENT) USE OF ASPIRIN 12/18/2018 FRANCINE, BOBAN N Ot D50.9 IRON DEFICIENCY ANEMIA, UNSPECIFIED 12/18/2018 FRANCINE, BOBAN N Ot E03.9 HYPOTHYROIDISM, UNSPECIFIED 12/18/2018 FRANCINE, BOBAN N Ot 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 12/18/2018 FRANCINE, BOBAN N Ot G47.33 OBSTRUCTIVE SLEEP APNEA (ADULT) (PEDIATR 12/18/2018 FRANCINE, BOBAN N Ot I12.9 HYPERTENSIVE CHRONIC KIDNEY DISEASE W ST 12/18/2018 FRANCINE, BOBAN N Ot I25.10 ATHSCL HEART DISEASE OF [place] CORONARY 12/18/2018 FRANCINE, BOBAN N Ot J45.909 UNSPECIFIED ASTHMA, UNCOMPLICATED 12/18/2018 FRANCINE, BOBAN N Ot K25.9 GASTRIC ULCER, UNSP ACUTE OR CHRONIC, 12/18/2018 FRANCINE, BOBAN N Ot K29.50 UNSPECIFIED CHRONIC GASTRITIS WITHOUT BL 12/18/2018 FRANCINE, BOBAN N Ot N18.3 CHRONIC KIDNEY DISEASE, STAGE 3 (MODERAT 12/18/2018 FRANCINE, NORA Anna Ot Z79.4 JAIL (CURRENT) USE OF INSULIN 12/18/2018 FRANCINE, NORA Anna Ot Z79.82 JAIL (CURRENT) USE OF ASPIRIN 12/31/2018 EMERY LOUISE [...] MD Ot I25.10 ATHSCL HEART DISEASE OF [place] CORONARY 12/31/2018 DAVIN DODSON MD Ot J44.9 CHRONIC OBSTRUCTIVE PULMONARY DISEASE, U 12/31/2018 DAVIN DODSON MD Ot N39.0 URINARY TRACT INFECTION, SITE NOT SPECIF 12/31/2018 DAVIN DODSON MD Ot R10.84 GENERALIZED ABDOMINAL PAIN 12/31/2018 DAVIN DODSON MD Ot R11.2 NAUSEA WITH VOMITING, UNSPECIFIED 12/31/2018 DAVIN DODSON MD Ot R19.7 DIARRHEA, UNSPECIFIED 12/31/2018 DAVIN DODSON MD Ot Z79.4 PARTS FABRICATOR (CURRENT) USE OF INSULIN 12/31/2018 DAVIN DODSON MD Ot Z79.51 PARTS FABRICATOR (CURRENT) USE OF INHALED STERO 12/31/2018 DAVIN DODSON MD Ot Z79.82 JAIL (CURRENT) USE OF ASPIRIN 12/31/2018 DAVIN DODSON [...] FOR OTHER SPECIFIED PROPHYLACT 01/03/2019 [place] DEXIGRAPH OPERATOR Ot N30.00 ACUTE CYSTITIS WITHOUT HEMATURIA 01/04/2019 [...] MD Ot I25.10 ATHSCL HEART DISEASE OF [place] CORONARY 01/04/2019 DAVIN DODSON MD, Ot J44.9 CHRONIC OBSTRUCTIVE PULMONARY DISEASE, U 01/04/2019 DAVIN DODSON MD, Ot N39.0 URINARY TRACT INFECTION, SITE NOT SPECIF 01/04/2019 DAVIN DODSON MD, Ot R10.84 GENERALIZED ABDOMINAL PAIN 01/04/2019 DAVIN DODSON MD, Ot R11.2 NAUSEA WITH VOMITING, UNSPECIFIED 01/04/2019 DAVIN DODSON MD, Ot R19.7 DIARRHEA, UNSPECIFIED 01/04/2019 DAVIN DODSON MD, Ot Z79.4 JAIL (CURRENT) USE OF INSULIN 01/04/2019 DAVIN DODSON MD, Ot Z79.51 PARTS FABRICATOR (CURRENT) USE OF INHALED STERO 01/04/2019 DAVIN DODSON MD, Ot Z79.82 JAIL (CURRENT) USE OF ASPIRIN 01/04/2019 DAVIN DODSON [...] APRN Ot I25.10 ATHSCL HEART DISEASE OF [place] CORONARY 02/28/2019 MAGDY ZIEGLER APRN Ot J44 .9 CHRONIC OBSTRUCTIVE PULMONARY DISEASE, U 02/28/2019 MAGDY ZIEGLER APRN Ot R10.11 RIGHT UPPER QUADRANT PAIN 02/28/2019 MAGDY ZIEGLER APRN Ot Z79 .4 PARTS FABRICATOR (CURRENT) USE OF INSULIN 02/28/2019 MAGDY ZIEGLER APRN Ot Z79.51 PARTS FABRICATOR (CURRENT) USE OF INHALED STERO 02/28/2019 MAGDY ZIEGLER APRN Ot Z79.82 PARTS FABRICATOR (CURRENT) USE OF ASPIRIN 02/28/2019 MAGDY ZIEGLER [...] APRN Ot I25.10 ATHSCL HEART DISEASE OF [place] CORONARY 03/03/2019 MAGDY ZIEGLER APRN Ot J44 .9 CHRONIC OBSTRUCTIVE PULMONARY DISEASE, U 03/03/2019 MAGDY ZIEGLER APRN Ot R10.11 RIGHT UPPER QUADRANT PAIN 03/03/2019 MAGDY ZIEGLER APRN Ot Z79 .4 PARTS FABRICATOR (CURRENT) USE OF INSULIN 03/03/2019 MAGDY ZIEGLER APRN Ot Z79.51 JAIL (CURRENT) USE OF INHALED STERO 03/03/2019 MAGDY ZIEGLER APRN Ot Z79.82 PARTS FABRICATOR (CURRENT) USE OF ASPIRIN 03/03/2019 MAGDY ZIEGLER [...] APRN Ot I25.10 ATHSCL HEART DISEASE OF [place] CORONARY 03/06/2019 MAGDY ZIEGLER APRN Ot J44 .9 CHRONIC OBSTRUCTIVE PULMONARY DISEASE, U 03/06/2019 MAGDY ZIEGLER APRN Ot R10.11 RIGHT UPPER QUADRANT PAIN 03/06/2019 MAGDY ZIEGLER APRN Ot Z79 .4 PARTS FABRICATOR (CURRENT) USE OF INSULIN 03/06/2019 MAGDY ZIEGLER APRN Ot Z79.51 JAIL (CURRENT) USE OF INHALED STERO 03/06/2019 MAGDY ZIEGLER APRN Ot Z79.82 PARTS FABRICATOR (CURRENT) USE OF ASPIRIN 03/06/2019 MAGDY ZIEGLER [...] OF OTHER SPECIFIED PART 03/06/2019 MAGDY ZIEGLER DEXIGRAPH OPERATOR Ot Z95 .5 PRESENCE OF CORONARY ANGIOPLASTY IMPLANT 03/22/2019 BATSHEVA LARKIN, KIYA R Ot 599. 0 URIN TRACT INFECTION NOS 03/22/2019 MARIPOSA SANCHEZ DEXIGRAPH OPERATOR Ot J45.909 UNSPECIFIED ASTHMA, UNCOMPLICATED 03/22/2019 MARIPOSA SANCHEZ DEXIGRAPH OPERATOR Ot J98.4 OTHER DISORDERS OF LUNG 03/22/2019 [...] MD Ot I25.10 ATHSCL HEART DISEASE OF [place] CORONARY 03/22/2019 SHARLA DOWNS MD Ot J44.9 CHRONIC OBSTRUCTIVE PULMONARY DISEASE, U 03/22/2019 SHARLA DOWNS MD Ot R07.89 OTHER CHEST PAIN 03/22/2019 SHARLA DOWNS MD Ot R51 HEADACHE 03/22/2019 SHARLA DOWNS MD Ot Z79.4 PARTS FABRICATOR (CURRENT) USE OF INSULIN 03/22/2019 SHARLA DOWNS MD, Ot Z79.51 PARTS FABRICATOR (CURRENT) USE OF INHALED STERO 03/22/2019 SHARLA DOWNS MD, Ot Z79.82 PARTS FABRICATOR (CURRENT) USE OF ASPIRIN 03/22/2019 SHARLA DOWNS [...] MD, Ot I25.10 ATHSCL HEART DISEASE OF [place] CORONARY 03/25/2019 SHARLA DOWNS MD, Ot J44.9 CHRONIC OBSTRUCTIVE PULMONARY DISEASE, U 03/25/2019 SHARLA DOWNS MD Ot R07.89 OTHER CHEST PAIN 03/25/2019 SHARLA DOWNS MD Ot R51 HEADACHE 03/25/2019 SHARLA DOWNS MD, Ot Z79.4 JAIL (CURRENT) USE OF INSULIN 03/25/2019 SHARLA DOWNS MD Ot Z79.51 PARTS FABRICATOR (CURRENT) USE OF INHALED STERO 03/25/2019 SHARLA DOWNS MD, Ot Z79.82 PARTS FABRICATOR (CURRENT) USE OF ASPIRIN 03/25/2019 SHARLA DOWNS [...] MD, Ot I25.10 ATHSCL HEART DISEASE OF [place] CORONARY 03/28/2019 SHARLA DOWNS MD, Ot J44.9 CHRONIC OBSTRUCTIVE PULMONARY DISEASE, U 03/28/2019 SHARLA DOWNS MD, Ot R07.89 OTHER CHEST PAIN 03/28/2019 SHARLA DOWNS MD, Ot R51 HEADACHE 03/28/2019 SHARLA DOWNS MD, Ot Z79.4 JAIL (CURRENT) USE OF INSULIN 03/28/2019 SHARLA DOWNS MD, Ot Z79.51 JAIL (CURRENT) USE OF INHALED STERO 03/28/2019 SHARLA DOWNS MD, Ot Z79.82 JAIL (CURRENT) USE OF ASPIRIN 03/28/2019 SHARLA DOWNS MD, Ot Z82.49 FAMILY HX OF ISCHEM HEART DIS AND OTH DI 03/28/2019 SHARLA DOWNS MD, Ot Z87.440 PERSONAL HISTORY OF URINARY (TRACT) INFE 03/28/2019 SAHRLA DOWNS MD, Ot Z88.0 ALLERGY STATUS TO [...] 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 03/30/2019 NORA ESCAMILLA Ot G47.33 OBSTRUCTIVE SLEEP APNEA (ADULT) (PEDIATR 03/30/2019 NORA ESCAMILLA Ot I12.9 HYPERTENSIVE CHRONIC KIDNEY DISEASE W ST 03/30/2019 NORA ESCAMILLA Ot I25.10 ATHSCL HEART DISEASE OF [place] CORONARY 03/30/2019 NORA ESCAMILLA Wilfrido Ot J45.909 UNSPECIFIED ASTHMA, UNCOMPLICATED 03/30/2019 NORA ESCAMILLA Wilfrido Ot K25.9 GASTRIC ULCER, UNSP ACUTE OR CHRONIC, 03/30/2019 NORA ESCAMILLA Wilfrido Ot K29.50 UNSPECIFIED CHRONIC GASTRITIS WITHOUT BL 03/30/2019 FRANCINE SABRINANAZARIO Wilfrido Ot N18.3 CHRONIC KIDNEY DISEASE, STAGE 3 (MODERAT 03/30/2019 NOAR ESCAMILLA Wilfrido Ot Z79.4 PARTS FABRICATOR (CURRENT) USE OF INSULIN 03/30/2019 FRANCINE, NORA Anna Ot Z79.82 PARTS FABRICATOR (CURRENT) USE OF ASPIRIN 04/11/2019 TO GRAY [...] Ot I25. 10 ATHSCL HEART DISEASE OF [place] CORONARY 04/11/2019 TO GRAY MD Ot M79. 18 MYALGIA, OTHER SITE 04/11/2019 TO GRAY MD Ot R51 HEADACHE 04/11/2019 TO GRAY MD Ot Z79. 4 JAIL (CURRENT) USE OF INSULIN 04/11/2019 TO GRAY MD Ot Z79. 51 PARTS FABRICATOR (CURRENT) USE OF INHALED STERO 04/11/2019 TO GRAY MD Ot Z79. 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 04/15/2019 NORA ESCAMILLA Ot G47.33 OBSTRUCTIVE SLEEP APNEA (ADULT) (PEDIATR 04/15/2019 NORA ESCAMILLA Ot I12.9 HYPERTENSIVE CHRONIC KIDNEY DISEASE W ST 04/15/2019 NORA ESCAMILLA Ot I25.10 ATHSCL HEART DISEASE OF [place] CORONARY 04/15/2019 NORA ESCAMILLA Ot J45.909 UNSPECIFIED ASTHMA, UNCOMPLICATED 04/15/2019 NORA ESCAMILLA Ot K25.9 GASTRIC ULCER, UNSP ACUTE OR CHRONIC, 04/15/2019 NORA ESCAMILLA Ot K29.50 UNSPECIFIED CHRONIC GASTRITIS WITHOUT BL 04/15/2019 NORA ESCAMILLA Ot N18.3 CHRONIC KIDNEY DISEASE, STAGE 3 (MODERAT 04/15/2019 NORA ESCAMILLA Ot Z79.4 JAIL (CURRENT) USE OF INSULIN 04/15/2019 NORA ESCAMILLA Ot Z79.82 JAIL (CURRENT) USE OF ASPIRIN 04/17/2019 TO GRAY [...] Ot I25. 10 ATHSCL HEART DISEASE OF [place] CORONARY 04/17/2019 TO GRAY MD, Ot M79. 18 MYALGIA, OTHER SITE 04/17/2019 TO GRAY MD Ot R51 HEADACHE 04/17/2019 TO GRAY MD, Ot Z79. 4 JAIL (CURRENT) USE OF INSULIN 04/17/2019 TO GRAY MD, Ot Z79. 51 JAIL (CURRENT) USE OF INHALED STERO 04/17/2019 TO GRAY MD, Ot Z79. 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 05/03/2019 NORA ESCAMILLA Ot G47.33 OBSTRUCTIVE SLEEP APNEA (ADULT) (PEDIATR 05/03/2019 NORA ESCAMILLA Ot I12.9 HYPERTENSIVE CHRONIC KIDNEY DISEASE W ST 05/03/2019 NORA ESCAMILLA Ot I25.10 ATHSCL HEART DISEASE OF [place] CORONARY 05/03/2019 NORA ESCAMILLA Ot J45.909 UNSPECIFIED ASTHMA, UNCOMPLICATED 05/03/2019 FRANCINENORA Ot K25.9 GASTRIC ULCER, UNSP ACUTE OR CHRONIC, 05/03/2019 NORA ESCAMILLA Ot K29.50 UNSPECIFIED CHRONIC GASTRITIS WITHOUT BL 05/03/2019 NORA ESCAMILLA Ot N18.3 CHRONIC KIDNEY DISEASE, STAGE 3 (MODERAT 05/03/2019 NORA ESCAMILLA Ot Z79.4 JAIL (CURRENT) USE OF INSULIN 05/03/2019 NORA ESCAMILLA Ot Z79.82 PARTS FABRICATOR (CURRENT) USE OF ASPIRIN 05/14/2019 SHARLA DOWNS [...] MD, Ot I25.10 ATHSCL HEART DISEASE OF [place] CORONARY 05/14/2019 SHARLA DOWNS MD, Ot J06.9 ACUTE UPPER RESPIRATORY INFECTION, UNSPE 05/14/2019 SHARLA DOWNS MD, Ot J44.9 CHRONIC OBSTRUCTIVE PULMONARY DISEASE, U 05/14/2019 SHARLA DOWNS MD Ot R06.02 SHORTNESS OF BREATH 05/14/2019 SHARLA DOWNS MD, Ot R59.9 ENLARGED LYMPH NODES, UNSPECIFIED 05/14/2019 SHARLA DOWNS MD, Ot Z79.4 PARTS FABRICATOR (CURRENT) USE OF INSULIN 05/14/2019 SHARLA DOWNS MD Ot Z79.51 JAIL (CURRENT) USE OF INHALED STERO 05/14/2019 SHARLA DOWNS MD, Ot Z79.82 JAIL (CURRENT) USE OF ASPIRIN 05/14/2019 SHARLA DOWNS [...] MD, Ot I25.10 ATHSCL HEART DISEASE OF [place] CORONARY 05/15/2019 SHARLA DOWNS MD, Ot J06.9 ACUTE UPPER RESPIRATORY INFECTION, UNSPE 05/15/2019 SHARLA DOWNS MD, Ot J44.9 CHRONIC OBSTRUCTIVE PULMONARY DISEASE, U 05/15/2019 SHARLA DOWNS MD, Ot R05 COUGH 05/15/2019 SHARLA DOWNS MD, Ot Z79.4 JAIL (CURRENT) USE OF INSULIN 05/15/2019 SHARLA DOWNS MD, Ot Z79.51 JAIL (CURRENT) USE OF INHALED STERO 05/15/2019 SHARLA DOWNS MD, Ot Z79.82 JAIL (CURRENT) USE OF ASPIRIN 05/15/2019 SHARLA DOWNS [...] 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 06/12/2019 NORA ESCAMILLA Ot G47.33 OBSTRUCTIVE SLEEP APNEA (ADULT) (PEDIATR 06/12/2019 NORA ESCAMILLA Ot I12.9 HYPERTENSIVE CHRONIC KIDNEY DISEASE W ST 06/12/2019 NORA ESCAMILLA Ot I25.10 ATHSCL HEART DISEASE OF [place] CORONARY 06/12/2019 NORA ESCAMILLA Ot J45.909 UNSPECIFIED ASTHMA, UNCOMPLICATED 06/12/2019 NORA ESCAMILLA Ot K25.9 GASTRIC ULCER, UNSP ACUTE OR CHRONIC, 06/12/2019 NORA ESCAMILLA Ot K29.50 UNSPECIFIED CHRONIC GASTRITIS WITHOUT BL 06/12/2019 FRANCINE, BOBAN N Ot N18.3 CHRONIC KIDNEY DISEASE, STAGE 3 (MODERAT 06/12/2019 NORA ESCAMILLA N Ot Z79.4 JAIL (CURRENT) USE OF INSULIN 06/12/2019 FRANCINESABRINANAZARIO N Ot Z79.82 PARTS FABRICATOR (CURRENT) USE OF ASPIRIN 06/14/2019 FRANCINESABRINANAZARIO N Ot D50.9 IRON DEFICIENCY ANEMIA, UNSPECIFIED 06/14/2019 FRANCINESABRINANAZARIO N Ot E03.9 HYPOTHYROIDISM, UNSPECIFIED 06/14/2019 FRANCINESABRINANAZARIO N Ot 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 06/14/2019 FRANCINESABRINANAZARIO N Ot G47.33 OBSTRUCTIVE SLEEP APNEA (ADULT) (PEDIATR 06/14/2019 FRANCINENORA N Ot I12.9 HYPERTENSIVE CHRONIC KIDNEY DISEASE W ST 06/14/2019 FRANCINESABRINANAZARIO N Ot I25.10 ATHSCL HEART DISEASE OF [place] CORONARY 06/14/2019 NORA ESCAMILLA N Ot J45.909 UNSPECIFIED ASTHMA, UNCOMPLICATED 06/14/2019 FRANCINESABRINANAZARIO N Ot K25.9 GASTRIC ULCER, UNSP ACUTE OR CHRONIC, 06/14/2019 FRANCINE NORA N Ot K29.50 UNSPECIFIED CHRONIC GASTRITIS WITHOUT BL 06/14/2019 FRANCINE NORA N Ot N18.3 CHRONIC KIDNEY DISEASE, STAGE 3 (MODERAT 06/14/2019 FRANCINE NORA N Ot Z79.4 PARTS FABRICATOR (CURRENT) USE OF INSULIN 06/14/2019 FRANCINE NORA N Ot Z79.82 JAIL (CURRENT) USE OF ASPIRIN 08/01/2019 Fredrick Wallis W 786.52 PAINFUL RESPIRATION 08/01/2019 Fredrick Wallis R07.81 PLEURODYNIA 09/06/2019 BATSHEVA LARKIN, KIYA R Ot 599. 0 URIN TRACT INFECTION NOS 09/06/2019 MARIPOSA SANCHEZ DEXIGRAPH OPERATOR Ot J45.909 UNSPECIFIED ASTHMA, UNCOMPLICATED 09/06/2019 MARIPOSA SANCHEZ DEXIGRAPH OPERATOR Ot J98.4 OTHER DISORDERS OF LUNG 09/06/2019 MARIPOSA SANCHEZ DEXIGRAPH OPERATOR Ot R06.02 SHORTNESS OF BREATH 09/06/2019 BATSHEVA LARKIN, KIYA R Ot D64. 9 ANEMIA, UNSPECIFIED 09/06/2019 MARIPOSA SANCHEZ DEXIGRAPH OPERATOR Ot J98.4 OTHER DISORDERS OF LUNG 09/06/2019 MARIPOSA SANCHEZ DEXIGRAPH OPERATOR Ot R06.02 SHORTNESS OF BREATH 09/06/2019 MARIPOSA SANCHEZ DEXIGRAPH OPERATOR Ot R09.02 HYPOXEMIA 09/06/2019 Ot D50.9 IRON DEFICIENCY ANEMIA, UNSPECIFIED 09/06/2019 Ot E03.9 HYPO THYROIDISM, UNSPECIFIED 09/06/2019 Ot E11.22 TYP E 2 DIABETES MELLITUS W DIABETIC WHEELCHAIR VAN DRIVER 09/06/2019 Ot G47.33 OBS TRUCTIVE SLEEP APNEA (ADULT) (PEDIATR 09/06/2019 Ot I12.9 HYPE RTENSIVE CHRONIC KIDNEY DISEASE W ST 09/06/2019 Ot I25.10 ATH SCL HEART DISEASE OF [place] CORONARY 09/06/2019 Ot J45.909 UN SPECIFIED ASTHMA, UNCOMPLICATED 09/06/2019 Ot K25.9 CARLOTTA SERGIO ULCER, UNSP ACUTE OR CHRONIC, 09/06/2019 Ot K29.50 UNS PECIFIED CHRONIC GASTRITIS WITHOUT BL 09/06/2019 Ot N18.3 WHEELCHAIR VAN DRIVER JOAQUINA KIDNEY DISEASE, STAGE 3 (MODERAT 09/06/2019 Ot Z79.4 PARTS FABRICATOR (CURRENT) USE OF INSULIN 09/06/2019 Ot Z79.82 TIFFANI G TERM (CURRENT) USE OF ASPIRIN 09/13/2019 BATSHEVA LARKIN, KIYA R Ot 599. 0 URIN TRACT INFECTION NOS 09/13/2019 MARIPOSA SANCHEZ APRN Ot J45.909 UNSPECIFIED ASTHMA, UNCOMPLICATED 09/13/2019 MARIPOSA SANCHEZ DEXIGRAPH OPERATOR Ot J98.4 OTHER DISORDERS OF LUNG 09/13/2019 MARIPOSA SANCHEZ DEXIGRAPH OPERATOR Ot R06.02 SHORTNESS OF BREATH 09/13/2019 BATSHEVA LARKIN, KIYA R Ot D64. 9 ANEMIA, UNSPECIFIED 09/13/2019 MARIPOSA SANCHEZ DEXIGRAPH OPERATOR Ot J98.4 OTHER DISORDERS OF LUNG 09/13/2019 MARIPOSA SANCHEZ APRN Ot R06.02 SHORTNESS OF BREATH 09/13/2019 MARIPOSA SANCHEZ DEXIGRAPH OPERATOR Ot R09.02 HYPOXEMIA 09/13/2019 Ot D50.9 IRON DEFICIENCY ANEMIA, UNSPECIFIED 09/13/2019 Ot E03.9 HYPO THYROIDISM, UNSPECIFIED 09/13/2019 Ot E11.22 TYP E 2 DIABETES MELLITUS W DIABETIC WHEELCHAIR VAN DRIVER 09/13/2019 Ot G47.33 OBS TRUCTIVE SLEEP APNEA (ADULT) (PEDIATR 09/13/2019 Ot I12.9 HYPE RTENSIVE CHRONIC KIDNEY DISEASE W ST 09/13/2019 Ot I25.10 ATH SCL HEART DISEASE OF [place] CORONARY 09/13/2019 Ot J45.909 UN SPECIFIED ASTHMA, UNCOMPLICATED 09/13/2019 Ot K25.9 CARLOTTA SERGIO ULCER, UNSP ACUTE OR CHRONIC, 09/13/2019 Ot K29.50 UNS PECIFIED CHRONIC GASTRITIS WITHOUT BL 09/13/2019 Ot N18.3 WHEELCHAIR VAN DRIVER JOAQUINA KIDNEY DISEASE, STAGE 3 (MODERAT 09/13/2019 Ot Z79.4 JAIL (CURRENT) USE OF INSULIN 09/13/2019 Ot Z79.82 [...] Ot I25. 10 ATHSCL HEART DISEASE OF [place] CORONARY 09/20/2019 PANDEY MARY RUCKERTT D Ot J45.909 UNSPECIFIED ASTHMA, UNCOMPLICATED 09/20/2019 DANNIE RUCKER MARILY D Ot K26. 9 DUODENAL ULCER, UNSP ACUTE OR CHRONIC 09/20/2019 PANDEY DO MARILY D Ot K29. 50 UNSPECIFIED CHRONIC GASTRITIS WITHOUT BL 09/20/2019 PANDEY AMRY RUCKERTT Abdulkadir Ot K44. 9 DIAPHRAGMATIC HERNIA WITHOUT OBSTRUCTION 09/20/2019 MARILY PANDEY DO Ot R09. 02 HYPOXEMIA 09/20/2019 MARILY PANDEY DO Ot Z68. 39 BODY MASS INDEX (BMI) 39.0-39.9, ADULT 09/20/2019 [facility] JAIL (CURRENT) USE OF ASPIRIN 09/20/2019 [facility] Z79. 84 JAIL (CURRENT) USE OF ORAL HYPOGLYC 09/20/2019 [facility] Ot Z79.890 HORMONE REPLACEMENT THERAPY 09/20/2019 [facility] Z79.899 OTHER PARTS FABRICATOR (CURRENT) DRUG THERAPY 09/20/2019 [facility] Z88. 0 ALLERGY STATUS TO PENICILLIN 09/20/2019 [facility] Z88. 5 ALLERGY STATUS TO NARCOTIC AGENT STATUS 09/20/2019 [facility] Z88. 8 ALLERGY STATUS TO OTH DRUG/MEDS/BIOL SUB 09/20/2019 [facility] Z95. 5 PRESENCE OF CORONARY ANGIOPLASTY IMPLANT 09/20/2019 [facility] Ot Z96.653 PRESENCE OF ARTIFICIAL KNEE JOINT, BILAT 09/20/2019 [facility] Z99. 81 DEPENDENCE ON SUPPLEMENTAL OXYGEN 10/10/2019 MAGDY ZIEGLER APRN Ot E03 .9 HYPOTHYROIDISM, UNSPECIFIED 10/10/2019 MAGDY ZIEGLER APRN Ot E11 .9 TYPE 2 DIABETES MELLITUS WITHOUT COMPLIC 10/10/2019 MAGDY ZIEGLER APRN Ot F32 .9 MAJOR DEPRESSIVE DISORDER, SINGLE EPISOD 10/10/2019 MAGDY ZIEGLER APRN Ot F41 .9 ANXIETY DISORDER, UNSPECIFIED 10/10/2019 MAGDY ZIEGLER APRN Ot I11 .9 HYPERTENSIVE HEART DISEASE WITHOUT HEART 10/10/2019 MAGDY ZIEGLER APRN Ot I25.10 ATHSCL HEART DISEASE OF [place] CORONARY 10/10/2019 MAGDY ZIEGLER APRN Ot I42 .9 CARDIOMYOPATHY, UNSPECIFIED 10/10/2019 MAGDY ZIEGLER APRN Ot J44 .9 CHRONIC OBSTRUCTIVE PULMONARY DISEASE, U 10/10/2019 MAGDY ZIEGLER APRN Ot K21 .9 GASTRO-ESOPHAGEAL REFLUX DISEASE WITHOUT 10/10/2019 MAGDY ZIEGLER APRN Ot M79.89 OTHER SPECIFIED SOFT TISSUE DISORDERS 10/10/2019 MAGDY ZIEGLER APRN Ot S86.912A STRAIN OF UNSP MUSC/TEND AT LOWER LEG LE 10/10/2019 MAGDY ZIEGLER APRN Ot X58.XXXA EXPOSURE TO OTHER SPECIFIED FACTORS, INI 10/10/2019 MAGDY ZIEGLER APRN Ot Z79 .4 PARTS FABRICATOR (CURRENT) USE OF INSULIN 10/10/2019 MAGDY ZIEGLER APRN Ot Z79.51 PARTS FABRICATOR (CURRENT) USE OF INHALED STERO 10/10/2019 MAGDY ZIEGLER APRN Ot Z79.82 PARTS FABRICATOR (CURRENT) USE OF ASPIRIN 10/10/2019 MAGDY ZIEGLER APRN Ot Z79.890 HORMONE REPLACEMENT THERAPY 10/10/2019 MAGDY ZIEGLER APRN Ot Z82.49 FAMILY HX OF ISCHEM HEART DIS AND OTH DI 10/10/2019 MAGDY ZIEGLER APRN Ot Z88 .0 ALLERGY STATUS TO PENICILLIN 10/10/2019 MAGDY ZIEGLER APRN Ot Z88 .5 ALLERGY STATUS TO NARCOTIC AGENT STATUS 10/10/2019 MAGDY ZIEGLER APRN Ot Z88 .6 ALLERGY STATUS TO ANALGESIC AGENT STATUS 10/10/2019 MAGDY ZIEGLER APRN Ot Z88 .8 ALLERGY STATUS TO OTH DRUG/MEDS/BIOL SUB 10/10/2019 MAGDY ZIEGLER APRN Ot Z90.49 ACQUIRED ABSENCE OF OTHER SPECIFIED PART 10/10/2019 MAGDY ZIEGLER APRN Ot Z95 .5 PRESENCE OF CORONARY ANGIOPLASTY IMPLANT 10/10/2019 MAGDY ZIEGLER APRN Ot Z96.653 PRESENCE OF ARTIFICIAL KNEE JOINT, BILAT 10/10/2019 MAGDY ZIEGLER APRN Ot Z99.81 DEPENDENCE ON SUPPLEMENTAL OXYGEN 10/12/2019 WHEELER DO, GAIL L Ot E03.9 HYPOTHYROIDISM, UNSPECIFIED 10/12/2019 WHEELER DO, GAIL L Ot E11.9 TYPE 2 DIABETES MELLITUS WITHOUT COMPLIC 10/12/2019 WHEELER DO, GAIL L Ot E78.0 0 PURE HYPERCHOLESTEROLEMIA, UNSPECIFIED 10/12/2019 WHEELER DO, GAIL L Ot F32.9 MAJOR DEPRESSIVE DISORDER, SINGLE EPISOD 10/12/2019 WHEELER DO, GAIL L Ot F41.9 ANXIETY DISORDER, UNSPECIFIED 10/12/2019 WHEELER DO, GAIL L Ot G47.3 0 SLEEP APNEA, UNSPECIFIED 10/12/2019 WHEELER DO, GAIL L Ot I10 ESSENTIAL (PRIMARY) HYPERTENSION 10/12/2019 WHEELER DO, GAIL L Ot I25.1 0 ATHSCL HEART DISEASE OF [place] CORONARY 10/12/2019 WHEELER DO, GAIL L Ot I38 ENDOCARDITIS, VALVE UNSPECIFIED 10/12/2019 WHEELER DO, GAIL L Ot I42.9 CARDIOMYOPATHY, UNSPECIFIED 10/12/2019 WHEELER DO, GAIL L Ot J44.9 CHRONIC OBSTRUCTIVE PULMONARY DISEASE, U 10/12/2019 WHEELER DO, GAIL L Ot K21.9 GASTRO-ESOPHAGEAL REFLUX DISEASE WITHOUT 10/12/2019 WHEELER DO, GAIL L Ot K29.7 0 GASTRITIS, UNSPECIFIED, WITHOUT BLEEDING 10/12/2019 WHEELER DO, GAIL L Ot M19.9 1 PRIMARY OSTEOARTHRITIS, UNSPECIFIED SITE 10/12/2019 WHEELER DO, GAIL L Ot M41.9 SCOLIOSIS, UNSPECIFIED 10/12/2019 WHEELER DO, GAIL L Ot R10.8 4 GENERALIZED ABDOMINAL PAIN 10/12/2019 WHEELER DO, GAIL L Ot Z79.4 JAIL (CURRENT) USE OF INSULIN 10/12/2019 WHEELER DO, GAIL L Ot Z95.5 PRESENCE OF CORONARY ANGIOPLASTY IMPLANT Procedures There is no data. Results Test [...] culture - 12/26/15 07:02 Bacterial urine culture [id number] NRG COLONY COUNT 10,000/ML - 100,000/ML NRG [...] test by minimum inhibitory co ncentration 2 [facility] Automated blood complete blood count (he mogram) [...] culture - 05/07/16 08:35 Bacterial urine culture [id number] NRG COLONY COUNT 10,000/ML - 100,000/ML NRG [...] culture - 05/13/16 07:13 Bacterial urine culture [id number] NRG COLONY COUNT 10,000/ML - 100,000/ML NRG [...] culture - 12/31/18 18:53 Bacterial urine culture [id number] NRG COLONY COUNT >100,000/ML NRG FTX;REPORTABLE SUSCEPTIBILITY [...] A AND B ANTIGENS BY IA [facility] Complete blood count (CBC) with [...] Negative Urine-Blood Negative Negative Urine-Color Yellow Colorless-Lt. Bee ow Urine-Epithelial Cells 10-20/HPF Urine-Glucose Negative Negative Urine-Ketones Negative Negative Urine-Leukocytes Negative Negative Urine-Mucus Negative Urine-Nitrite Negative Negative Urine-Other Urine Saved if Culture Need ed (48hrs from time of collection) Urine-pH 6.0 5-8.5 Urine-Protein Negative Negative Urine-RBC 0-2/HPF Urine-Specific [place] 1.020 1.000-1 .030 Urine-WBC Negative Urobilinogen 0.2 [...] plasma calcium measurement (mass/volume) 8.8 mg/dL 8.5-10.1 Complete blood count (CBC) with automate d white blood cell (WBC) differential - 10/10/19 10:40 Blood leukocytes automated count (number/volume) 11.3 10*3/uL 4.3-11.0 Blood erythrocytes automated count (number/volume) 3.80 10*6/uL 4.35-5.85 Venous blood hemoglobin measurement (mass/volume) 11.6 g/dL 11.5-16.0 Blood hematocrit (volume fraction) 36 % 35-52 Automated erythrocyte mean corpuscular volume 95 [ foz_us] 80-99 Automated erythrocyte mean corpuscular h emoglobin (mass per erythrocyte) 31 pg 25-34 Automated erythrocyte mean corpuscular h emoglobin concentration measurement (mass/volume) 32 g/dL 32-36 Automated erythrocyte distribution width ratio 13. 1 % 10.0- 14.5 Automated blood platelet count (count/volume) 242 10*3/uL 130-400 Automated blood platelet mean volume measurement 9.5 [foz_us] 7.4-10.4 Automated blood neutrophils/100 leukocytes 84 % 42-75 Automated blood lymphocytes/100 leukocytes 10 % 12-44 Blood monocytes/100 leukocytes 5 % 0-12 Automated blood eosinophils/100 leukocytes 1 % 0-10 Automated blood basophils/100 leukocytes 0 % 0-10 Blood neutrophils automated count (number/volume) 9.5 10*3 1.8-7.8 Blood lymphocytes automated count (number/volume) 1.1 10*3 1.0-4.0 Blood monocytes automated count (number/volume) 0. 5 10*3 0.0-1.0 Automated eosinophil count 0.1 10*3/uL 0 .0-0.3 Automated blood basophil count (count/volume) 0.0 10*3/uL 0.0-0.1 Comprehensive metabolic panel - 10/10/19 10:40 Serum or plasma sodium measurement (moles/volume) 141 mmol/L 135-145 Serum or plasma potassium measurement (moles/volume) 4.8 mmol/L 3.6-5.0 Serum or plasma chloride measurement (moles/volume) 106 mmol/L 98-107 Carbon dioxide 24 mmol/L 21-32 [...] NRG Serum or plasma glucose measurement (mass/volume) 209 mg/dL 70-105 Serum or plasma calcium measurement (mass/volume) 8.6 mg/dL 8.5-10.1 Serum or plasma total bilirubin measurement (mass/volu me) 0.4 mg/dL 0.1-1.0 Serum or plasma alkaline phosphatase shabana surement (enzymatic activity/volume) 136 U/L 40-136 Serum or plasma aspartate aminotransfera se measurement (enzymatic activity/volume) 18 U/L 5-34 Serum or plasma alanine aminotransferase measurement (enzymatic activity/volume) 21 U/L 0-55 Serum or plasma protein measurement (mass/volume) 7.0 g/dL 6.4-8.2 Serum or plasma albumin measurement (mass/volume) 3.6 g/dL 3.2-4.5 CALCIUM CORRECTED 8.9 mg/dL 8.5-10.1 Lipase - 10/10/19 10:40 Lipase 22 U/L 8-78 Complete urinalysis with reflex to cultu re - 10/10/19 11:08 Urine color determination YELLOW NRG Urine clarity determination CLEAR NR G Urine pH measurement by test strip 6.5 5-9 Specific gravity of urine by test strip 1.015 1.016-1.022 Urine protein assay by test strip, semi-quantitative NEGATIVE NEGATIVE Urine glucose detection by automated test strip TR MAYITO NEGATIVE Erythrocytes detection in urine sediment by [...] urine sediment by light microscopy FEW NRG Encounters ACCT No. Visit Date/Time Discharge Status Pt. Type Provider Facility Loc./Unit Complaint [id number] 03/26/2019 03:05:00 Document Registration [id number] 03/29/2018 16:15:00 Document Registration [id number] 08/01/2019 08:00:00 08/01/2019 10:03 :00 [id number] 03/25/2018 11:43:00 03/25/2018 23:59: 00 DIS Outpatient Pantera Pham [id number] 03/25/2018 10:42:00 03/25/2018 23:59: 00 DIS Outpatient Pantera Pham [id number] 01/02/2017 09:06:00 01/02/2017 23:59: 00 DIS Outpatient JESSE DEMETRA [id number] 08/01/2019 08:28:30 Document Registration [id number] 10/10/2019 10:24:00 13:11:00 DIS Outpatient GAIL WHEELER DO [facility] ER PAIN ALL OVER [id number] 10/07/2019 14:58:00 16:02:00 DIS Outpatient MAGDY ZIEGLER APRN [facility] ER POSS BLOOD CLOT IN L LE G [id number] 09/13/2019 07:35:00 09:35:00 DIS Outpatient MARILY PANDEY DO [facility] ENDO EPIGASTRIC ABD PAIN/KOLBY CK TARRY STOOLS/HX PUD [id number] 09/08/2019 05:50:00 15:09:00 DIS Outpatient MARILY PANDEY DO [facility] PREOP EGD [id number] 03/17/2019 08:57:00 00:01:00 DIS Outpatient NORA ESCAMILLA [facility] ONC [id number] 05/15/2019 05:49:00 07:56:00 DIS Emergency SHARLA DOWNS MD [facility] ER UPPER RESP INFE CTION [id number] 05/14/2019 14:49:00 16:32:00 DIS Emergency SHARLA DOWNS MD [facility] ER SOA [id number] 04/11/2019 07:10:00 15:39:00 DIS Emergency TO GRAY MD [facility] ER FLU;HEADACHE [id number] 03/22/2019 07:47:00 09:58:00 DIS Emergency YARELI LARKIN, SHARLA Panchal [facility] ER HEADACHE [id number] 02/28/2019 13:40:00 17:23:00 DIS Emergency MAGDY ZIEGLER APRN [facility] ER R SIDE PAIN [id number] 12/31/2018 16:40:00 20:25:00 DIS Emergency DAVIN DODSON MD [facility] ER ABD PAIN,DIARRH EA [id number] 09/24/2018 07:56:00 00:01:00 DIS Outpatient NORA ESCAMILLA [facility] ONC [id number] 12/06/2018 09:15:00 23:59:59 CLS Outpatient LOUISE LAND DEXIGRAPH OPERATOR [facility] RAD RENAL/URETERAL COLIC,ACUTE CYSTITIS W/O HEMATURIA [id number] 11/05/2018 16:10:00 17:58:00 DIS Emergency MAGDY ZIEGLER DEXIGRAPH OPERATOR [facility] ER SOB [id number] 04/26/2018 08:24:00 00:01:00 DIS Outpatient NORA ESCAMILLA V [facility] ONC [id number] 07/01/2018 00:10:00 23:59:59 CLS Preadmit MARIPOSA SANCHEZ DEXIGRAPH OPERATOR [facility] PULM RESTRICTIVE JONATHON G DISEASE,SOB DYSPNEA [id number] 06/01/2018 09:00:00 00:01:00 DIS Outpatient MARIPOSA SANCHEZ DEXIGRAPH OPERATOR [facility] PULM RESTRICTIVE JONATHON G DISEASE,SOB DYSPNEA [id number] 06/01/2018 15:43:00 17:59:00 DIS Emergency TO GRAY MD [facility] ER HEART RATE PROBLEMS [id number] 05/07/2018 20:33:00 03/02/2 019 06:53:00 DIS Outpatient MARIPOSA SANCHEZ DEXIGRAPH OPERATOR [facility] SLEEP JAD, ASTHMA, AN TERIOR CHEST WALL PAIN [id number] 03/30/2018 20:05:00 06:10:00 DIS Outpatient MARIPOSA SANCHEZ DEXIGRAPH OPERATOR [facility] SLEEP HYPOXEMIA,ASTHM A,SOB [id number] 03/29/2018 21:00:00 23:59:59 CLS Preadmit MARIPOSA SANCHEZ DEXIGRAPH OPERATOR [facility] SLEEP JAD,ASTHMA,SOB DYSPNEA [id number] 03/18/2018 09:00:00 00:01:00 DIS Outpatient MARIPOSA SANCHEZ APRN [facility] PULM RESTRICTIVE JONATHON G DISEASE,SOB DYSPNEA [id number] 12/24/2017 08:56:00 00:01:00 DIS Outpatient NORA ESCAMILLA V ia [facility] ONC [id number] 02/23/2018 08:19:00 23:59:59 CLS Outpatient MARIPOSA SANCHEZ APRN [facility] RAD RESTRICTIVE JONATHON G DISEASE [id number] 02/02/2018 06:34:00 10:45:00 DIS Outpatient MARILY PANDEY DO [facility] ENDO IRON DEF ANEMIA [id number] 01/27/2018 13:15:00 14:09:00 DIS Outpatient MARILY PANDEY DO [facility] PREOP COLONOSCOPY/EGD [id number] 12/09/2017 11:59:00 23:59:59 CLS Outpatient LOUISE LAND DEXIGRAPH OPERATOR [facility] RAD DYSURIA [id number] 11/30/2017 10:16:00 018 00:01:00 DIS Outpatient MARIPOSA SANCHEZ DEXIGRAPH OPERATOR [facility] RT RESTRICTIVE JONATHON G DISEASE,SOB DYSPNEA [id number] 11/19/2017 08:53:00 09/30/2 018 00:01:00 DIS Outpatient NORA ESCAMILLA Wilfrido V ia [facility] ONC [id number] 12/02/2017 08:21:00 018 23:59:59 CLS Outpatient ABI PANG DEXIGRAPH OPERATOR [facility] RAD BREAST NODULE [id number] 11/27/2017 13:53:00 018 23:59:59 CLS Outpatient ABI PANG DEXIGRAPH OPERATOR [facility] RAD BREAST NODULE [id number] 11/10/2017 07:02:00 018 09:15:00 DIS Outpatient MARILY PANDEY DO [facility] ENDO DYSPHAGIA [id number] 11/02/2017 09:33:00 018 14:05:00 DIS Inpatient LARRY MURILLO DO [facility] 4TH CP/SOB [id number] 11/04/2017 05:54:00 018 10:11:00 DIS Outpatient MARILY PANDEY DO [facility] PREOP EGD [id number] 11/01/2017 00:09:00 018 23:59:59 CLS Preadmit KIYA HERMAN MD [facility] CR3 WELLNESS [id number] 10/06/2017 06:00:00 018 00:01:00 DIS Outpatient KIYA HERMAN MD [facility] CR3 WELLNESS [id number] 10/29/2017 16:54:00 018 21:02:00 DIS Emergency MAGDY ZIEGLER DEXIGRAPH OPERATOR Via [facility] ER CP [id number] 09/04/2017 08:54:00 018 00:01:00 DIS Outpatient KIYA HERMAN MD [facility] CR3 WELLNESS [id number] 08/12/2017 16:03:00 018 00:01:00 DIS Outpatient KIYA HERMAN MD [facility] CR3 WELLNESS [id number] 06/15/2017 17:00:00 018 00:01:00 DIS Outpatient BATSHEVA LARKIN, KIYA R [facility] CR3 WELLNESS [id number] 06/19/2017 07:17:00 018 23:59:59 CLS Outpatient BATSHEVA LARKIN, KIYA R [facility] RAD PAIN IN LEFT LOWER LEG [id number] 11/18/2016 09:15:00 017 23:59:59 CLS Outpatient KIYA HERMAN MD R [facility] RAD R07.81;PELVIC PAIN [id number] 10/15/2016 07:30:00 017 23:59:59 CLS Outpatient KIYA HERMAN MD R [facility] RAD R10.2 625.9 [id number] 07/01/2016 08:48:00 017 23:59:59 CLS Outpatient LEANNA BROOKE MD [facility] RAD SCREENING [id number] 05/27/2016 08:37:00 017 08:37:00 CAN Preadmit BATSHEVA LARKIN, KIYA R [facility] RAD PNEUMONIA [id number] 05/26/2016 09:02:00 017 23:59:59 CLS Outpatient BATSHEVA LARKIN, KIYA R [facility] RAD PNEUMONIA [id number] 05/06/2016 13:01:00 017 11:30:00 DIS Inpatient WHIT ARRINGTON MD [facility] IRF CAROTID STENOSIS [id number] 04/16/2016 08:35:00 017 23:59:59 CLS Outpatient SAM HEALY MD [facility] CARD CARTOID ARTERY STENOSIS [id number] 04/07/2016 00:41:00 017 03:26:00 DIS Emergency DAVIN DODSON MD [facility] ER OVERDOSE OF INS ULIN [id number] 03/26/2016 06:47:00 017 23:59:59 CLS Outpatient NGHIA GUTIERREZ MD [facility] CARD ANTERIOR CHEST WALL TANIA N [id number] 03/25/2016 11:07:00 017 23:59:59 CLS Outpatient NGHIA GUTIERREZ MD [facility] LAB CAD,ANTERIOR CHEST WALL PAIN [id number] 02/04/2016 00:08:00 23:59:59 CLS Preadmit KIYA HERMAN MD [facility] LAB ANEMIA [id number] 11/06/2015 08:01:00 00:01:00 DIS Outpatient KIYA HERMAN MD R [facility] LAB ANEMIA [id number] 12/31/2015 03:53:00 05:28:00 DIS Emergency DAVIN DODSON MD [facility] ER L LEG PAIN [id number] 12/26/2015 06:40:00 08:45:00 DIS Outpatient NGHIA GUTIERREZ MD [facility] CATH CHEST PAIN,ABN STRESS,H TN [id number] 12/12/2015 07:28:00 23:59:59 CLS Outpatient NGHIA GUTIERREZ MD [facility] CARD CHEST PAIN SYNDROME,HTN,SOB,OBSTRUCTIVE SLEEP APNE [id number] 11/29/2015 10:15:00 23:59:59 CLS Preadmit MARIPOSA SANCHEZ APRN Via [facility] PULM DYSPNEA [id number] 10/18/2015 09:00:00 00:01:00 DIS Outpatient MARIPOSA SANCHEZ APRN [facility] PULM DYSPNEA [id number] 11/27/2015 07:29:00 23:59:59 CLS Outpatient NGHIA GUTIERREZ MD [facility] CARD CHEST PAIN SYNDROME,HTN,SOB,OBSTRUCTIVE SLEEP APNE [id number] 11/23/2015 16:24:00 17:44:00 DIS Emergency MAGDY ZIEGLER DEXIGRAPH OPERATOR [facility] ER FATIGUE/LOW SUGAR [id number] 11/02/2015 10:33:00 016 12:04:00 DIS Emergency MAGDY ZIEGLER DEXIGRAPH OPERATOR [facility] ER SOA [id number] 10/05/2015 13:16:00 23:59:59 CLS Outpatient MARCELO SAEZ MD [facility] RAD SPONDYLOSISTHESIS [id number] 08/23/2015 09:00:00 23:59:59 CLS Outpatient MARIPOSA SANCHEZ APRN [facility] PULM DYSPNEA [id number] 06/28/2015 07:07:00 23:59:59 CLS Outpatient LEANNA BROOKE MD [facility] RAD SCREENING [id number] 04/24/2015 06:43:00 23:59:59 CLS Outpatient KIYA HERMAN MD [facility] RAD RUQ PAIN [id number] 03/15/2015 19:48:00 06:50:00 DIS Outpatient MARIPOSA SANCHEZ APRN [facility] SLEEP JAD,SNORING, [id number] 03/05/2015 08:13:00 23:59:59 CLS Outpatient LARRY MURILLO DO Via [facility] RAD HTN,ASTHMA [id number] 02/11/2015 19:37:00 06:45:00 DIS Outpatient LARRY MURILLO DO Via [facility] SLEEP HTN,SNORING,DAYTIME SLE EPINESS [id number] 01/17/2015 16:11:00 23:59:59 CLS Outpatient LARRY MURILLO DO Via [facility] RT HTN,DIABETES,OBESITY,HL P [id number] 12/15/2014 05:43:00 07:30:00 DIS Emergency RUSLAN MADRID MD Via [facility] ER ANXIETY [id number] 11/09/2014 13:15:00 23:59:59 CLS Outpatient NWMARCO ANTONIOWABBIE Cast APRN Via [facility] RAD BILATERAL RENNY ICATION OF LOWER LIMB DIABETES JOSE [id number] 11/03/2014 13:29:00 15:52:00 DIS Emergency JUSTINO CAREY MD Via [facility] ER CHEST PAIN [id number] 09/06/2014 07:28:00 23:59:59 CLS Outpatient KIYA HERMAN MD Via [facility] RAD PERSISTANT HEADACHE,FRO NTAL [id number] 08/30/2014 09:39:00 23:59:59 CLS Outpatient KIYA HERMAN MD [facility] RAD PERSISTANT COUGH [id number] 06/23/2014 06:51:00 23:59:59 CLS Outpatient LEANNA BROOKE MD [facility] RAD SCREENING [id number] 06/12/2014 00:11:00 23:59:59 CLS Preadmit KIYA HERMAN MD Via [facility] LAB SYMPTOMS INVOLVING URIN DANA TRACT [id number] 03/13/2014 15:59:00 00:01:00 DIS Outpatient KIYA HERMAN MD [facility] LAB SYMPTOMS INVOLVING URIN DANA TRACT [id number] 06/21/2013 08:07:00 23:59:59 CLS Outpatient LEANNA BROOKE MD [facility] RAD SCREENING [id number] 12/02/2012 14:22:00 00:01:00 DIS Outpatient KIYA HERMAN MD Via [facility] [address] WEAKNESS [id number] 01/05/2013 08:23:00 11:35:00 DIS Outpatient MARQUITA HERNANDEZ MD Via [facility] [address] PEPTIC ULCER DISEASE; A NEMIA [id number] 12/30/2012 07:15:00 23:59:59 CLS Outpatient MARY LARKIN, MARQUITA [facility] PREOP PEPTIC ULCER DISEASE; A NEMIA [id number] 12/23/2012 15:40:00 23:59:59 CLS Outpatient BATSHEVA LARKIN, KIYA Wei Via [facility] RAD PAIN WITH CHANGE IN V ISION [id number] 09/08/2012 09:45:00 23:59:59 CLS Outpatient Justyn MORRISSEY MD Via [facility] LAB CYSTITIS [id number] 08/27/2012 09:12:00 23:59:59 CLS Outpatient Justyn MORRISSEY MD Via [facility] LAB UTI [id number] 07/21/2012 10:02:00 23:59:59 CLS Outpatient Justyn MORRISSEY MD Via [facility] LAB 595.2 [id number] 10/16/2019 09:24:[address] Emergency IVORY LARKIN, DAVIN Maciel Via [facility] ER ABD PAIN / SOA / WEAKNESS / CHILLS [id number] 06/13/2019 00:00:00 Document Registration [id number] 01/28/2019 09:23:00 Document Registration [id number] 10/13/2017 07:54:00 Document Registration [id number] 10/07/2017 09:23:00 Document Registration [id number] 12/13/2014 06:56:00 Document Registration [id number] 12/12/2014 15:11:00 Document Registration [id number] 03/13/2014 15:59:00 Document Registration [id number] 03/03/2013 00:00:00 Document Registration [id number] 06/21/2012 08:54:00 Document Registration [id number] 06/17/2012 11:49:00 Document Registration [id number] 04/28/2012 10:48:00 Document Registration [id number] 07/24/2011 09:15:00 Document Registration [id number] 06/23/2011 08:01:00 Document Registration [id number] 05/29/2011 05:42:00 Document Registration [id number] 05/19/2011 07:27:00 Document Registration [id number] 02/11/2011 16:00:00 Document Registration [id number] 01/18/2011 22:01:00 Document Registration [id number] 10/12/2010 14:30:00 Document Registration [id number] 07/11/2010 15:51:00 Document Registration [id number] 07/08/2010 11:52:00 Document Registration [id number] 06/20/2010 14:16:00 Document Registration [id number] 06/20/2010 06:57:00 Document Registration [id number] 01/18/2010 08:56:00 Document Registration [id number] 12/25/2009 09:07:00 Document Registration [id number] 12/18/2009 15:48:00 Document Registration [id number] 12/17/2009 13:15:00 Document Registration [id number] 09/19/2009 07:39:00 Document Registration [id number] 08/29/2009 06:18:00 Document Registration [id number] 08/17/2009 15:56:00 Document Registration [id number] 03/13/2009 12:58:00 Document Registration [id number] 04/24/2019 17:50:00 04/24/2019 23:59: 59 [facility] Outpatient [facility]
[2019-10-16] MEDS ORDERED: fentaNYL INJECTION 100 MCG/2 ML AMP IVP ONE (10:45)
--- NOTE | 2019-10-16 10:45 | ED Abdominal Pain ---
General Chief Complaint: Abdominal/GI Problems Stated Complaint: ABD PAIN / SOA / WEAKNESS / CHILLS Nursing Triage Note: PT CO OF ABD PAIN, CHILLS AND WEAKNESS. PT DENIES FEVER. PT HAS BEEN SEEN RECENLTY AND STATES HAS ULCERATIVE COLITIS AND GASTRITIS Sepsis Screen: No Definite Risk Source of Information: Patient Exam Limitations: No Limitations History of Present Illness Date Seen by Provider: Oct 16, 2019 Time Seen by Provider: 10:44 Initial Comments To ER with ongoing diffuse abdominal pain. She was started on 2 antibiotics and Carafate following an EGD/colonoscopy with diagnosis of gastritis and colitis about 5-6 days ago. She denies improvement. Timing/Duration: 5-6 Days Severity/Quality: Moderate Location: Generalized Abdomen Radiation: No Radiation Associated Symptoms: Nausea/Vomiting Allergies and Home Medications Allergies Coded Allergies: Penicillins (Verified Allergy, Unknown, 05/15/19) meperidine (Verified Allergy, Unknown, 09/06/19) morphine (Unverified Allergy, Unknown, 05/15/19) propoxyphene (Verified Allergy, Unknown, 05/15/19) topiramate (Verified Allergy, Unknown, 05/15/19) codeine (Verified Adverse Reaction, Unknown, UPSET STOMACH, 09/13/19) dapagliflozin (Verified Adverse Reaction, Unknown, yeast infection, 09/13/19) Home Medications Acetaminophen 500 Mg Tablet, 1,000 MG PO Q6H PRN for PAIN-MILD, (Reported) Acetaminophen/Diphenhydramine 1 Each Tablet, 1 EACH PO Q4H PRN for PAIN-MILD (1- 4) Prescribed by: MAGDY ZIEGLER on 10/07/19 5995 Amlodipine Besylate 10 Mg Tablet, 5 MG PO DAILY, (Reported) Aspirin 81 Mg Tablet.dr, 81 MG PO DAILY, (Reported) Atorvastatin Calcium 10 Mg Tablet, 10 MG PO DAILY, (Reported) Cetirizine HCl 10 Mg Tablet, 10 MG PO DAILY, (Reported) Citalopram Hydrobromide 10 Mg Tablet, 10 MG PO DAILY, (Reported) Cranberry Fruit Concentrate 500 Mg Capsule, 500 MG PO DAILY, (Reported) Cyanocobalamin 1,000 Mcg/Ml Inj, 1,000 MCG IM UD, (Reported) Cyclobenzaprine HCl 10 Mg Tablet, 10 MG PO PRN, (Reported) Dicyclomine HCl 10 Mg Capsule, 10 MG PO TID Prescribed by: MAGDY ZIEGLER on 10/16/19 1245 Diphenoxylate HCl/Atropine 1 Each Tablet, 1 EACH PO PRN, (Reported) Eszopiclone 2 Mg Tablet, 2 MG PO HS, (Reported) Fluticasone Propionate 16 Gm [place].susp, 2 SPRAYS NS HS, (Reported) Fluticasone Propionate 30 Gm Cream..g., 50 GM TP DAILY, (Reported) Gabapentin 100 Mg Capsule, 100 MG PO TID, (Reported) Insulin Degludec 200 Unit/1 Ml Insuln.pen, 12 UNITS SC BID, (Reported) Levothyroxine Sodium 125 Mcg Tablet, 125 MCG PO DAILY, (Reported) Lorazepam 1 Mg Tablet, 1 MG PO DAILY PRN for ANXIETY, (Reported) Losartan Potassium 50 Mg Tablet, 50 MG PO DAILY, (Reported) Magnesium Oxide 200 Mg Tablet, 400 MG PO DAILY, (Reported) Meclizine HCl 25 Mg Tablet, 25 MG PO TID, (Reported) Metoprolol Succinate 25 Mg Tab.er.24h, 25 MG PO DAILY, (Reported) Montelukast Sodium 10 Mg Tablet, 10 MG PO HS, (Reported) Ondansetron HCl 4 Mg Tablet, 4 MG PO UD, (Reported) Pantoprazole Sodium 40 Mg Tablet.dr, 40 MG PO DAILY, (Reported) Sucralfate 1 Gm Tablet, 1 GM PO QID Prescribed by: MARILY PANDEY on 09/13/19 0907 Tramadol HCl 50 Mg Tablet, 50 MG PO Q4H PRN for PAIN-MODERATE, (Reported) Trazodone HCl 50 Mg Tablet, 50 MG PO HS, (Reported) Vit D3 & K/Berberine HCl/Hops 1 Each Tablet, 1 EACH PO DAILY, (Reported) Patient Home Medication List Home Medication List Reviewed: Yes Review of Systems Review of Systems Constitutional: see HPI EENTM: No Symptoms Reported Respiratory: No Symptoms Reported Cardiovascular: No Symptoms Reported Gastrointestinal: See HPI, Vomiting Genitourinary: No Symptoms Reported Musculoskeletal: no symptoms reported Skin: no symptoms reported Psychiatric/Neurological: No Symptoms Reported Endocrine: No Symptoms Reported Hematologic/Lymphatic: No Symptoms Reported Past Iypnzqg-Xegyvy-Xegclo Hx Patient Social History Alcohol Use: Denies Use Recreational Drug Use: No Smoking Status: Never a Smoker 2nd Hand Smoke Exposure: No Recent Foreign Travel: No Contact w/Someone Who Travel: No Recent Infectious Disease Expo: No Recent Hopitalizations: No Immunizations Up To Date Tetanus Booster (TDap): Unknown Date of Pneumonia Vaccine: Feb 05, 2017 Date of Influenza Vaccine: Dec 21, 2018 Seasonal Allergies Seasonal Allergies: No Past Medical History Surgeries: Yes (FOOT, bilat CTR, carotid endartectomy, bilat TKR) Appendectomy, Coronary Stent, Gallbladder, Orthopedic, Thyroidectomy Respiratory: Yes (CPAP - 3L NC O2 ) Asthma, Sleep Apnea, COPD Currently Using CPAP: Yes Currently Using BIPAP: No Cardiac: Yes (STENT) Cardiomyopathy, Chronic Edema/Swelling, Coronary Artery Disease, High Cholesterol, Hypertension, Valvular Heart Disease Neurological: No 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 Sexually Transmitted Disease: No HIV/AIDS: No Genitourinary: No UTI-Chronic Gastrointestinal: Yes Colitis, Gastroesophageal Reflux Musculoskeletal: Yes (ARTHRITIS, spinal stenosis) Arthritis, Scoliosis Endocrine: Yes Diabetes, Insulin dep, Hypothyroidsim HEENT: No Cancer: No Psychosocial: Yes Anxiety, Depression Integumentary: No Blood Disorders: No Adverse Reaction/Blood Tranf: No Family Medical History Alzheimer's disease G8 SISTER Diabetes mellitus 19 FATHER Hypertension 19 FATHER 19 MOTHER Myocardial infarction 19 FATHER 19 MOTHER Neoplasm G8 SISTER Physical Exam Vital Signs Vital Signs - First Documented 10/16/19 10/16/19 09:35 13:17 Temp 36.6 Pulse 84 Resp 18 B/P (MAP) 135/79 (97) Pulse Ox 99 O2 Delivery Nasal Cannula O2 Flow Rate 2.00 Capillary Refill : Less Than 3 Seconds Height/Weight/BMI Height: 5'4.00" Weight: 246lbs. 6.0oz. 111.029496xk; 42.00 BMI Method:Stated General Appearance: WD/WN, no apparent distress HEENT: PERRL/EOMI, normal ENT inspection Respiratory: no respiratory distress, no accessory muscle use Cardiovascular: regular rate, rhythm, no murmur Gastrointestinal: normal bowel sounds, soft Extremities: normal range of motion, non-tender Neurologic/Psychiatric: alert, normal mood/affect, oriented x 3 Progress/Results/Core Measures Results/Orders Lab Results Laboratory Tests Test 10/16/19 09:40 10/16/19 11:39 10/16/19 12:15 Range/Units White Blood Count 10.1 4.3-11.0 10^3/uL Red Blood Count 3.89 L 4.35-5.85 10^6/uL Hemoglobin 11.9 11.5-16.0 G/DL Hematocrit 37 35-52 % Mean Corpuscular Volume 95 80-99 FL Mean Corpuscular Hemoglobin 31 25-34 PG Mean Corpuscular Hemoglobin Concent 32 32-36 G/DL Red Cell Distribution Width 13.0 10.0-14.5 % Platelet Count 296 130-400 10^3/uL Mean Platelet Volume 9.8 7.4-10.4 FL Neutrophils (%) (Auto) 81 H 42-75 % Lymphocytes (%) (Auto) 12 12-44 % Monocytes (%) (Auto) 5 0-12 % Eosinophils (%) (Auto) 1 0-10 % Basophils (%) (Auto) 1 0-10 % Neutrophils # (Auto) 8.2 H 1.8-7.8 X 10^3 Lymphocytes # (Auto) 1.2 1.0-4.0 X 10^3 Monocytes # (Auto) 0.5 0.0-1.0 X 10^3 Eosinophils # (Auto) 0.1 0.0-0.3 10^3/uL Basophils # (Auto) 0.1 0.0-0.1 10^3/uL Sodium Level 139 135-145 MMOL/L Potassium Level 4.8 3.6-5.0 MMOL/L Chloride Level 105 98-107 MMOL/L Carbon Dioxide Level 23 21-32 MMOL/L Anion Gap 11 5-14 MMOL/L Blood Urea Nitrogen 11 7-18 MG/DL Creatinine 1.00 0.60-1.30 MG/DL Estimat Glomerular Filtration Rate 56 BUN/Creatinine Ratio 11 Glucose Level 171 H 70-105 MG/DL Calcium Level 8.6 8.5-10.1 MG/DL Corrected Calcium 8.9 8.5-10.1 MG/DL Total Bilirubin 0.4 0.1-1.0 MG/DL Aspartate Amino Transf (AST/SGOT) 29 5-34 U/L Alanine Aminotransferase (ALT/SGPT) 22 0-55 U/L Alkaline Phosphatase 129 40-136 U/L Total Protein 7.3 6.4-8.2 GM/DL Albumin 3.6 3.2-4.5 GM/DL Lipase 33 8-78 U/L Glucometer 163 H 70-110 MG/DL Urine Color YELLOW Urine Clarity CLEAR Urine pH 7.0 5-9 Urine Specific [place] 1.010 L 1.016-1.022 Urine Protein NEGATIVE NEGATIVE Urine Glucose (UA) NEGATIVE NEGATIVE Urine Ketones NEGATIVE NEGATIVE Urine Nitrite NEGATIVE NEGATIVE Urine Bilirubin NEGATIVE NEGATIVE Urine Urobilinogen 0.2 < = 1.0 MG/DL Urine Leukocyte Esterase NEGATIVE NEGATIVE Urine RBC (Auto) NEGATIVE NEGATIVE Urine RBC NONE /HPF Urine WBC 0-2 /HPF Urine Squamous Epithelial Cells 5-10 /HPF Urine Crystals NONE /LPF Urine Bacteria NEGATIVE /HPF Urine Casts NONE /LPF Urine Mucus NEGATIVE /LPF Urine Culture Indicated NO My Orders Orders - MAGDY ZIEGLER APRN Fentanyl Injection (Sublimaze Injection (10/16/19 10:45) Cbc With Automated Diff (10/16/19 10:38) Comprehensive Metabolic Panel (10/16/19 10:38) Lipase (10/16/19 10:38) Ua Culture If Indicated (10/16/19 10:39) Ed Iv/Invasive Line Start (10/16/19 10:39) Ct Abdomen/Pelvis W (10/16/19 11:10) Iohexol Injection (Omnipaque 350 Mg/Ml 1 (10/16/19 11:45) Received Contrast (Hold Metformin- Contr (10/16/19 11:45) Ns (Ivpb) (Sodium Chloride 0.9% Ivpb Bag (10/16/19 11:45) Medications Given in ED Current Medications Medications Dose Ordered Sig/Katrina Route Start Time Stop Time Status Last Admin Dose Admin Fentanyl Citrate 50 mcg ONCE ONCE IVP 10/16/19 10:45 10/16/19 10:46 DC 10/16/19 11:14 50 MCG Iohexol 100 ml ONCE ONCE IV 10/16/19 11:45 10/16/19 11:46 DC 10/16/19 12:02 100 ML Sodium Chloride 100 ml ONCE ONCE IV 10/16/19 11:45 10/16/19 11:46 DC 10/16/19 12:02 80 ML Vital Signs/I&O 10/16/19 10/16/19 09:35 13:17 Temp 36.6 36.5 Pulse 84 84 Resp 18 18 B/P (MAP) 135/79 (97) 147/66 (97) Pulse Ox 99 99 O2 Delivery Nasal Cannula O2 Flow Rate 2.00 Blood Pressure Mean: 97 Departure Impression Primary Impression: IBS (irritable bowel syndrome) Disposition: 01 HOME, SELF-CARE Condition: Stable Departure-Patient Inst. Decision time for Depature: 12:28 Referrals: DOUG SEWELL DO (PCP/Family) Primary Care Physician Patient Instructions: Irritable Bowel Syndrome Add. Discharge Instructions: 1. medications as directed. Return to Er for any concerns All discharge instructions reviewed with patient and/or family. Voiced understanding. Scripts Dicyclomine HCl (Dicyclomine HCl) 10 Mg Capsule 10 MG PO TID, #21 CAP Prov: MAGDY ZIEGLER GEOPHYSICAL DRAFTER 10/16/19 MAGDY ZIEGLER APRN Oct 16, 2019 10:45
[2019-10-16 10:46] LABS: BASOPHILS # (AUTO) 0.1 10^3/uL (0.0-0.1); BASOPHILS % (AUTO) 1 % (0-10); EOSINOPHILS # (AUTO) 0.1 10^3/uL (0.0-0.3); EOSINOPHILS % (AUTO) 1 % (0-10); HEMATOCRIT 37 % (35-52); HEMOGLOBIN 11.9 G/DL (11.5-16.0); LYMPHOCYTES # (AUTO) 1.2 X 10^3 (1.0-4.0); LYMPHOCYTES % (AUTO) 12 % (12-44); MEAN CORPUSCULAR HEMOGLOBIN 31 PG (25-34); MEAN CORPUSCULAR HGB CONC 32 G/DL (32-36); MEAN CORPUSCULAR VOLUME 95 FL (80-99); MEAN PLATELET VOLUME 9.8 FL (7.4-10.4); MONOCYTES # (AUTO) 0.5 X 10^3 (0.0-1.0); MONOCYTES % (AUTO) 5 % (0-12); NEUTROPHILS # (AUTO) 8.2 X 10^3 (1.8-7.8); NEUTROPHILS % (AUTO) 81 % (42-75); PLATELET COUNT 296 10^3/uL (130-400); WHITE BLOOD COUNT 10.1 10^3/uL (4.3-11.0)
[2019-10-16 10:51] LABS: ALBUMIN 3.6 GM/DL (3.2-4.5); POTASSIUM 4.8 MMOL/L (3.6-5.0)
[2019-10-16 10:52] LABS: CALCIUM 8.6 MG/DL (8.5-10.1)
[2019-10-16 10:53] LABS: TOTAL PROTEIN 7.3 GM/DL (6.4-8.2)
[2019-10-16 10:55] LABS: BILIRUBIN,TOTAL 0.4 MG/DL (0.1-1.0)
[2019-10-16] MEDS ORDERED: NS 100 ML (IVPB) BAG IV ONE (11:45)
[2019-10-16] MEDS ORDERED: HOLD METFORMIN - RECEIVED CONTRAST 20 ML VIAL IV SCH (11:45)
[2019-10-16] MEDS ORDERED: IOHEXOL 350 MG/ML 100 ML (OMNIPAQUE 350) VIAL IV ONE (11:45)
--- NOTE | 2019-10-16 12:19 | Diagnostic Imaging Report ---
PROCEDURE: CT abdomen and pelvis with contrast. TECHNIQUE: Multiple contiguous axial images were obtained through the abdomen and pelvis after administration of intravenous contrast. Auto Exposure Controls were utilized during the CT exam to meet ALARA standards for radiation dose reduction. INDICATION: Chills weakness The recent CT abdomen/pelvis exam of 10/10/2019 failed to show any sign of an acute abnormality of the abdomen or pelvis. On this study, the liver is not enlarged and similar in appearance to the prior exam. There is no focal mass involving the liver and the biliary tree is not abnormally dilated. As noted on the prior study the gallbladder is surgically absent. The spleen, pancreas, adrenals, kidneys, aorta and inferior vena cava are unremarkable for an acute abnormality. The small hiatal hernia seen previously is again evident and no different. There is no pelvic mass or free fluid collection noted. The uterus and urinary bladder grossly unremarkable. The appendix was not well visualized but there are no indirect signs of acute appendicitis. The bone windows show no sign of a fracture or destructive lesion. The lung bases are clear. IMPRESSION: There is no acute abnormality of the abdomen or pelvis. When compared to the prior study there has been no significant change. Dictated by: Dictated on workstation # [id number]
[2019-10-16 12:26] LABS: BILIRUBIN,URINE NEGATIVE (NEGATIVE); CLARITY,URINE CLEAR; COLOR,URINE YELLOW; GLUCOSE, URINE (UA) NEGATIVE (NEGATIVE); KETONES,URINE NEGATIVE (NEGATIVE); LEUKOCYTE ESTERASE ,URINE NEGATIVE (NEGATIVE); NITRITE,URINE NEGATIVE (NEGATIVE); PROTEIN,URINE NEGATIVE (NEGATIVE)
[2019-10-16 12:39] LABS: BACTERIA,URINE NEGATIVE /HPF; WBC,URINE 0-2 /HPF
[2019-10-16] MEDS ORDERED: DICY10CA12 PO (12:45)
[2019-10-16 13:17] VITALS: BP 147/66
== END 2019-10-16 13:19 | disposition home or self-care (01) ==
LOC: EDUNIT# 09:23 → ER 09:24
DX: K58.9 Irritable bowel syndrome, unspecified (principal); J44.9 Chronic obstructive pulmonary disease, unspecified; I10 Essential (primary) hypertension; E78.00 Pure hypercholesterolemia, unspecified; I25.10 Atherosclerotic heart disease of native coronary artery without angina pectoris; K21.9 Gastro-esophageal reflux disease without esophagitis; E11.9 Type 2 diabetes mellitus without complications; E03.9 Hypothyroidism, unspecified; F41.9 Anxiety disorder, unspecified; F32.9 Major depressive disorder, single episode, unspecified; Z88.0 Allergy status to penicillin; Z88.5 Allergy status to narcotic agent; Z88.8 Allergy status to other drugs, medicaments and biological substances; Z79.82 Long term (current) use of aspirin; Z79.51 Long term (current) use of inhaled steroids; Z79.4 Long term (current) use of insulin; Z95.5 Presence of coronary angioplasty implant and graft; Z79.890 Hormone replacement therapy
CPT/HCPCS: 36415; 74177; 80053; 81000; 82962; 83690; 85025

== ENCOUNTER 2019-10-25 12:22 | Emergency (ER) | payer MEDICARE, OTHER ==
[~2019-10-25] VITALS: Ht 165.1 cm; Wt 112.3 kg
[~2019-10-25 12:22] MED LIST changes: +DICY10CA12 PO
[2019-10-25 13:31] LABS: BASOPHILS # (AUTO) 0.1 10^3/uL (0.0-0.1); BASOPHILS % (AUTO) 0 % (0-10); EOSINOPHILS # (AUTO) 0.2 10^3/uL (0.0-0.3); EOSINOPHILS % (AUTO) 2 % (0-10); HEMATOCRIT 38 % (35-52); HEMOGLOBIN 12.4 G/DL (11.5-16.0); LYMPHOCYTES # (AUTO) 1.4 X 10^3 (1.0-4.0); LYMPHOCYTES % (AUTO) 12 % (12-44); MEAN CORPUSCULAR HEMOGLOBIN 31 PG (25-34); MEAN CORPUSCULAR HGB CONC 32 G/DL (32-36); MEAN CORPUSCULAR VOLUME 95 FL (80-99); MEAN PLATELET VOLUME 9.5 FL (7.4-10.4); MONOCYTES # (AUTO) 0.6 X 10^3 (0.0-1.0); MONOCYTES % (AUTO) 6 % (0-12); NEUTROPHILS # (AUTO) 9.3 X 10^3 (1.8-7.8); NEUTROPHILS % (AUTO) 81 % (42-75); PLATELET COUNT 274 10^3/uL (130-400); RED CELL DISTRIBUTION WIDTH 13.3 % (10.0-14.5); WHITE BLOOD COUNT 11.5 10^3/uL (4.3-11.0)
[2019-10-25 13:43] LABS: ALBUMIN 3.8 GM/DL (3.2-4.5); CHLORIDE 105 MMOL/L (98-107); POTASSIUM 4.9 MMOL/L (3.6-5.0); SODIUM 139 MMOL/L (135-145)
[2019-10-25 13:45] LABS: GLUCOSE 211 MG/DL (70-105); TOTAL PROTEIN 7.5 GM/DL (6.4-8.2)
[2019-10-25 13:46] LABS: CARBON DIOXIDE 23 MMOL/L (21-32)
[2019-10-25 13:47] LABS: BILIRUBIN,TOTAL 0.3 MG/DL (0.1-1.0)
[2019-10-25 13:49] LABS: ALKALINE PHOSPHATASE 108 U/L (40-136); GFR ESTIMATED 50
[2019-10-25 13:50] LABS: BUN/CREATININE RATIO 17
[2019-10-25 13:51] LABS: MAGNESIUM 1.6 MG/DL (1.6-2.4)
[2019-10-25 13:52] LABS: ALANINE AMINOTRANSFERASE 22 U/L (0-55)
--- OUTSIDE RECORDS SUMMARY | 2019-10-25 13:52 | XMS REPORT | Encounter Summary ---
Author Author [facility] Organization [facility] Address Unknown Phone Unavailable Care Team Providers Care Gang Pusher Name Role Phone PCP Unavailable Encounter Details Care Team Description Date Type Department Frederic Culver MD [address] [facility] [address] [place] [address] [phone] [facility] [address] [place] [address] Social History Date Tobacco Use Types Packs/Day [...] Address City/State/Zipcode Ph one Number [facility] [address] [place], [place] [address] HL[facility] * Protein Electrophoresis [...] A/G Ratio 0.9 [facility] Pathologist Reviewed by rPaveen Sheets, [facility]AB Review MBautista,Comment: Reviewed by Jackson Sheets M.D.,Ph.D. Specimen Blood Performing Organization Address City/State/[facility] one Number [facility] [address] [place], [place] [address] [facility] documented in this encounter Visit Diagnoses Not on filedocumented in this encounter
--- OUTSIDE RECORDS SUMMARY | 2019-10-25 13:52 | XMS REPORT | Clinical Summary ---
Author Author [facility] Organization [facility] Address Unknown Phone Unavailable Care Team Providers Care Shirt Folding Machine Operator Name Role Phone PCP Unavailable Allergies [...]
--- OUTSIDE RECORDS SUMMARY | 2019-10-25 13:52 | XMS REPORT | Encounter Summary ---
Author Author [facility] Organization [facility] Address Unknown Phone Unavailable Care Team Providers Care Flight Operations Manager Name Role Phone PCP Unavailable Encounter Details Care Team Description Date Type Department Frederic Culver MD [address] [facility] [address] [place] [address] [phone] 07/16/2012 [facility] al Encounter [address] [place] [address] Social History Date Tobacco Use Types Packs/Day [...] Address City/State/Zipcode Ph one Number [facility] [address] [place], [place] [address] [facility] documented in this encounter Visit Diagnoses Not on filedocumented in this encounter
--- OUTSIDE RECORDS SUMMARY | 2019-10-25 13:52 | XMS REPORT | Encounter Summary ---
Author Author [facility] Organization [facility] Address Unknown Phone Unavailable Care Team Providers Care Stretcher Leveler Operator Helper Name Role Phone PCP Unavailable Encounter Details Care Team Description Date Type Department Frederic Culver MD [address] [facility] [address] [place] [address] [phone] [facility]03[facility] [address] [place] [address] Social History Date Tobacco Use Types Packs/Day [...] Address City/State/Zipcode Ph one Number [facility] [address] [place], [place] [address] [place] * DNA Antibody (10/03/2010 1:00 PM CDT) DNA Antibody 4 0 - 5 IU/ML [place] Specimen Blood Performing Organization Address [facility] one Number [facility] [address] [place], [place] [address] [place] * GWYN Qualitative (10/03/2010 1:00 PM CDT) GWYN Qualitative Negative Negative [place] Specimen Blood Performing Organization Address [facility] one Number [facility] [address] [place] [address] [place] * RO/SSA Antibody (10/03/2010 1:00 PM CDT) RO/SSA Antibody Negative [place] Specimen Blood Performing Organization Address [facility] one Number [facility] [address] [place] [address] [place] * Smooth Muscle Antibody (10/03/2010 1:00 PM CDT) Smooth Muscle 10 0 - 15 UNITS [place]QUEST Antibody Specimen Blood Performing Organization Address [facility] one Number [facility] [address] [place] [address] [place] documented in this encounter Visit Diagnoses Not on filedocumented in this encounter
--- OUTSIDE RECORDS SUMMARY | 2019-10-25 13:55 | XMS REPORT | Continuity of Care Document ---
Demographics Preferred Language Unknown Marital Status Unknown Mandaeism Affiliation Unknown Race Unknown Ethnic Group Unknown Author Author [facility] Organization [employer] Address Unknown Phone Unavailable Allergies Active Description Code Type Severity Reaction Onset Reported/Identified Relationship to Patient Clinical Status Yes CODEINE SULFATE M ODERATE MODERATE Yes DEMEROL MODERATE MODERATE Yes FARXIGA MODERATE MODERATE Yes MORPHINE MODERATE MODERATE Yes PENICILLINS MODERATE MODERATE Yes TOPAMAX MODERATE TO SEVERE MODERATE TO SEVERE Yes acetaminophen [id number] Matthias g Allergy Unknown N/A 10/22/2006 Yes morphine [id number] Drug Allergy Unknown N/A 05/15/2019 Yes Penicillins [id number] Drug Aller gy Unknown N/A 05/15/2019 Yes propoxyphene [id number] Drug Allergy Unknown N/A 05/15/2019 Yes topiramate [id number] Drug Allerg y Unknown N/A 05/15/2019 Yes meperidine [id number] Drug Allerg y Unknown N/A 09/06/2019 Yes codeine [id number] Drug Allergy Unknown UPSET STOMACH 09/13/2019 Yes dapagliflozin [id number] Matthias g Allergy Unknown yeast infection 09/13/2019 [...] HERNANDEZ MD Ot 553.3 DIAPHRAGMATIC HERNIA 03/02/2013 KIYA HERMAN MD R Ot 285. 9 ANEMIA NOS 03/02/2013 [...] Justyn BADILLO Ot 595.9 03/13/2014 MARY LARKIN, MARQUITA Ot V72.84 03/13/2014 BATSHEVA LARKIN, KIYA R [...] COMPL, TYPE II OR UNSPEC TY 11/03/2014 AURELIO LARKIN, JUSTINO Clay Ot 401. 9 HYPERTENSION NOS 11/03/2014 AURELIO [...] LEANNA BROOKE MD Ot V76.1 2 11/03/2014 MENDY LARKIN, LEANNA Alejandra Ot V76.1 2 11/03/2014 BATSHEVA LARKIN, KIYA R Ot 599. 0 11/03/2014 BATSHEVA LARKIN, KIYA R Ot 786. 2 11/03/2014 BATSHEVA LARKIN, KIYA R Ot 786. 50 11/03/2014 BATSHEVA LARKIN, KIYA R Ot 784. 0 11/15/2014 NWAGWU, ISIDORE O SET UP OPERATOR Ot 250.00 11/15/2014 NWAGWU, ISIDORE O SET UP OPERATOR Ot 401.9 11/15/2014 NWAGWU, ISIDORE O SET UP OPERATOR Ot 443.9 11/29/2014 NWAGWU, ISIDORE O SET UP OPERATOR Ot 250.00 11/29/2014 NWAGWU, ISIDORE O SET UP OPERATOR Ot 401.9 11/29/2014 NWAGWU, ISIDORE O SET UP OPERATOR Ot 443.9 12/06/2014 NWAGWU, ISIDORE O SET UP OPERATOR Ot 250.00 12/06/2014 NWAGWU, ISIDORE O SET UP OPERATOR Ot 401.9 12/06/2014 NWAGWU, ISIDORE O SET UP OPERATOR Ot 443.9 12/12/2014 Ot R06.02 VENKATA [...] LARRY MURILLO DO Ot E03. 9 02/07/2015 LARRY MURILLO DO Ot E11. 9 02/07/2015 LARRY MURILLO DO Ot E66. 9 02/07/2015 LARRY MURILLO DO Ot I10 02/07/2015 LARRY MURILLO DO Ot J45.998 02/08/2015 LARRY MURILLO DO Ot E03. 9 02/08/2015 LARRY MURILLO DO Ot E11. 9 02/08/2015 LARRY MURILLO DO Ot E66. 9 02/08/2015 LARRY MURILLO DO Ot I10 02/08/2015 LARRY MURILLO DO Ot J45.998 02/12/2015 LARRY MURILLO DO Ot G47. 33 OBSTRUCTIVE SLEEP APNEA (ADULT) (PEDIATR 03/16/2015 MARIPOSA SANCHEZ APRN Ot G47.33 OBSTRUCTIVE SLEEP APNEA (ADULT) (PEDIATR 03/16/2015 MARIPOSA SANCHEZ APRN Ot G47.61 PERIODIC LIMB MOVEMENT DISORDER 03/29/2015 CHIDI LARRY RUCKER Ot E03. 9 03/29/2015 CHIDILARRY BURNETT DO Ot E11. 9 03/29/2015 CHIDILARRY BURNETT DO Ot E66. 9 03/29/2015 CIHDI LARRY RUCKER Ot I10 03/29/2015 CHIDI LARRY RUCKER Ot J45.998 04/05/2015 CHIDILARRY BURNETT DO Ot E03. 9 04/05/2015 CHIDI RUCKERLARRY Ot E11. 9 04/05/2015 CHIDI RUCKERLARRY Ot E66. 9 04/05/2015 CHIDI LARRY RUCKER Ot I10 04/05/2015 CHIDI LARRY RUCKER Ot J45.998 04/24/2015 Ot V58.61 04/24/2015 Ot [...] Justyn BADILLO Ot 595.9 04/24/2015 MARY LARKIN, MARQUITA Ot V72.84 04/24/2015 BATSHEVA LARKIN, KIYA R Ot 368. 9 04/24/2015 BATSHEVA LARKIN, KIYA R Ot 784. 0 04/24/2015 Ot 285.9 04/24/2015 Ot 780.79 04/24/2015 LEANNA BROOKE MD Ot V76.1 2 04/24/2015 LEANNA BROOKE MD Ot V76.1 2 04/24/2015 BATSHEVA LARKIN, KIYA R Ot 599. 0 04/24/2015 BATSHEVA LARKIN, KIYA R Ot 786. 2 04/24/2015 BATSHEVA LARKIN, KIYA R Ot 786. 50 04/24/2015 BATSHEVA LARKIN, KIYA R Ot 784. 0 04/24/2015 NWABBIE PEÑA SET UP OPERATOR Ot 250.00 04/24/2015 NWRAVIN PEÑARE O SET UP OPERATOR Ot 401.9 04/24/2015 NWLYNDON PEÑADORE O SET UP OPERATOR Ot 443.9 04/24/2015 LARRY MURILLO DO [...] I10 04/24/2015 LARRY MURILLO DO Ot J45.998 04/26/2015 BATSHEVA LARKIN, KIYA R Ot K76. 0 04/26/2015 BATSHEVA LARKIN, KIYA R Ot K76. 0 05/21/2015 BATSHEVA LARKIN, KIYA R Ot K76. 0 06/11/2015 BATSHEVA LARKIN, KIYA R Ot K76. 0 06/28/2015 MENDY LARKIN, LEANNA Alejandra Ot Z12.3 1 ENCNTR SCREEN MAMMOGRAM FOR MALIGNANT NE 06/29/2015 SATHYA SANCHEZINE E SET UP OPERATOR Ot J45.909 UNSPECIFIED ASTHMA, UNCOMPLICATED 06/29/2015 SATHYA SANCHEZINE E SET UP OPERATOR Ot J98.4 OTHER DISORDERS OF LUNG 06/29/2015 SATHYA SANCHEZINE Zafar SET UP OPERATOR Ot R06.02 SHORTNESS OF BREATH 07/05/2015 SATHYA SANCHEZINE Zafar SET UP OPERATOR Ot J45.909 UNSPECIFIED ASTHMA, UNCOMPLICATED 07/05/2015 SATHYA SANCHEZINE E SET UP OPERATOR Ot J98.4 OTHER DISORDERS OF LUNG 07/05/2015 SATHYA SANCHEZINE E SET UP OPERATOR Ot R06.02 SHORTNESS OF BREATH 07/18/2015 MENDY LARKIN, LEANNA Alejandra Ot Z12.3 1 ENCNTR SCREEN MAMMOGRAM FOR MALIGNANT NE 08/26/2015 SATHYA SANCHEZINE E SET UP OPERATOR Ot J45.909 UNSPECIFIED ASTHMA, UNCOMPLICATED 08/26/2015 SATHYA SANCHEZINE E SET UP OPERATOR Ot J98.4 OTHER DISORDERS OF LUNG 08/26/2015 SATHYA SANCHEZINE Zafar SET UP OPERATOR Ot R06.02 SHORTNESS OF BREATH 08/31/2015 SATHYA SANCHEZINE Zafar SET UP OPERATOR Ot J45.909 UNSPECIFIED ASTHMA, UNCOMPLICATED 08/31/2015 SATHYA SANCHEZINE E SET UP OPERATOR Ot J98.4 OTHER DISORDERS OF LUNG 08/31/2015 SATHYA SANCHEZINE E SET UP OPERATOR Ot R06.02 SHORTNESS OF BREATH 09/27/2015 SATHYA SANCHEZINE E SET UP OPERATOR Ot J45.909 UNSPECIFIED ASTHMA, UNCOMPLICATED 09/27/2015 DANIELSATHYA GUTIERRESINE E SET UP OPERATOR Ot J98.4 OTHER DISORDERS OF LUNG 09/27/2015 DANIEL, MARIPOSA E SET UP OPERATOR Ot R06.02 SHORTNESS OF BREATH 10/04/2015 MARIPOSA SANCHEZ SET UP OPERATOR Ot J45.909 UNSPECIFIED ASTHMA, UNCOMPLICATED 10/04/2015 MARIPOSA SANCHEZ SET UP OPERATOR Ot J98.4 OTHER DISORDERS OF LUNG 10/04/2015 MARIPOSA SANCHEZ APRN Ot R06.02 SHORTNESS OF BREATH 10/08/2015 NADJA [...] 11/23/2015 MAGDY ZIEGLER APRN Ot Z79.899 OTHER TYPESETTER APPRENTICE (CURRENT) DRUG THERAPY 11/26/2015 MAGDY ZIEGLER APRN Ot E11.649 TYPE 2 DIABETES MELLITUS WITH HYPOGLYCEM 11/26/2015 MAGDY ZIEGLER SET UP OPERATOR Ot E11 .9 TYPE 2 DIABETES MELLITUS WITHOUT COMPLIC 11/26/2015 MAGDY ZIEGLER SET UP OPERATOR Ot F41 .9 ANXIETY DISORDER, UNSPECIFIED 11/26/2015 MAGDY ZIEGLER SET UP OPERATOR Ot I51 .7 CARDIOMEGALY 11/26/2015 MAGDY ZIEGLER SET UP OPERATOR Ot R05 COUGH 11/26/2015 MAGDY ZIEGLER SET UP OPERATOR Ot R10.10 UPPER ABDOMINAL PAIN, UNSPECIFIED 11/26/2015 MAGDY ZIEGLER SET UP OPERATOR Ot Z79.899 OTHER ALF (CURRENT) DRUG THERAPY 11/28/2015 MARIPOSA SANCHEZ APRN Ot J45.909 UNSPECIFIED ASTHMA, UNCOMPLICATED 11/28/2015 MARIPOSA SANCHEZ SET UP OPERATOR Ot J98.4 OTHER DISORDERS OF LUNG [...] J98. 4 OTHER DISORDERS OF LUNG 12/03/2015 BRENDA LARKIN, NGHIA Alejandra Ot R06. 02 SHORTNESS OF BREATH 12/03/2015 [...] MALIGN NEOPLASM OF [place] 12/12/2015 Ot 571.8 PATIENT SERVICE REPRESENTATIVE JOAQUINA LIVER DIS NEC 12/12/2015 Ot 789.09 ABD OMINAL PAIN, OTHER SPECIFIED SITE 12/12/2015 Justyn MORRISSEY MD Ot 595.2 CHRONIC CYSTITIS NEC 12/12/2015 Justyn MORRISSEY MD Ot 599.0 URIN TRACT INFECTION NOS 12/12/2015 Justyn MORRISSEY MD Ot 595.9 CYSTITIS NOS 12/12/2015 MARY LARKIN, MARQUITA Ot V72.84 EXAM PRE-OPERATIVE NOS 12/12/2015 KIYA [...] KIYA R Ot 786. 2 COUGH 12/12/2015 BATSHEVA LARKIN, KIYA Wei Ot 786. 50 CHEST PAIN NOS 12/12/2015 BATSHEVA LARKIN, KIYA Wei Ot 784. 0 HEADACHE 12/12/2015 NWAGWU, ISIDORE O SET UP OPERATOR Ot 250.00 DIAB JOSE WO COMPL, TYPE II OR UNSPEC TY 12/12/2015 NWAGWU, ISIDORE O SET UP OPERATOR Ot 401.9 HYPERTENSION NOS 12/12/2015 NWAGWU, ISIDORE O SET UP OPERATOR Ot 443.9 PERIPH VASCULAR DIS NOS [...] R Ot D64. 9 ANEMIA, UNSPECIFIED 12/12/2015 BRENDA LARKIN, NGHIA Alejandra Ot G47. 33 OBSTRUCTIVE SLEEP APNEA (ADULT) (PEDIATR 12/12/2015 NGHIA GUTIERREZ MD Ot I10 ESSENTIAL (PRIMARY) HYPERTENSION 12/12/2015 NGHIA GUTIERREZ MD Ot J98. 4 OTHER DISORDERS OF LUNG 12/12/2015 NGHIA GUTIERREZ MD J Ot R06. 02 SHORTNESS OF BREATH 12/12/2015 NGHIA GUTIERREZ MD Ot R07. 9 CHEST PAIN, UNSPECIFIED 12/12/2015 MARIPOSA SANCHEZ SET UP OPERATOR Ot J45.909 UNSPECIFIED ASTHMA, UNCOMPLICATED 12/12/2015 MARIPOSA SANCHEZ SET UP OPERATOR Ot J98.4 OTHER DISORDERS OF LUNG 12/12/2015 MARIPOSA SANCHEZ SET UP OPERATOR Ot R06.02 SHORTNESS OF BREATH 12/12/2015 NGHIA GUTIERREZ MD Ot R07. 9 CHEST PAIN, UNSPECIFIED 12/13/2015 NGHIA GUTIERREZ MD Ot R07. 9 CHEST PAIN, UNSPECIFIED 12/13/2015 NGHIA GUTIERREZ MD Ot G47. 33 OBSTRUCTIVE SLEEP APNEA (ADULT) (PEDIATR 12/13/2015 NGHIA GUTIERREZ MD J Ot I10 ESSENTIAL (PRIMARY) HYPERTENSION 12/13/2015 NGHIA GUTIERREZ MD Ot J98. 4 OTHER DISORDERS OF LUNG 12/13/2015 NGHIA GUTIERREZ MD Ot R06. 02 SHORTNESS OF BREATH 12/13/2015 NGHIA GUTIERREZ MD Ot R07. 9 CHEST PAIN, UNSPECIFIED 12/19/2015 NGHIA GUTIERREZ MD Ot G47. 33 OBSTRUCTIVE SLEEP APNEA (ADULT) (PEDIATR 12/19/2015 NGHIA GUTIERREZ MD J Ot I10 ESSENTIAL (PRIMARY) HYPERTENSION 12/19/2015 NGHIA GUTIERREZ MD Ot J98. 4 OTHER DISORDERS OF LUNG 12/19/2015 NGHIA GUTIERREZ MD Ot R06. 02 SHORTNESS OF BREATH 12/19/2015 NGHIA GUTIERREZ MD Ot R07. 9 CHEST PAIN, UNSPECIFIED 12/27/2015 NGHIA GUTIERREZ MD J Ot E11. 9 TYPE 2 DIABETES MELLITUS WITHOUT COMPLIC 12/27/2015 NGHIA GUTIERREZ MD Ot E66. 9 OBESITY, UNSPECIFIED 12/27/2015 NGHIA GUTIERREZ MD Ot E78. 5 HYPERLIPIDEMIA, UNSPECIFIED 12/27/2015 NGHIA GUTIERREZ MD J Ot G47. 33 OBSTRUCTIVE SLEEP APNEA (ADULT) (PEDIATR 12/27/2015 NGHIA GUTIERREZ MD J Ot I10 ESSENTIAL (PRIMARY) HYPERTENSION 12/27/2015 NGHIA GUTIERREZ MD, Ot I25. 10 ATHSCL HEART DISEASE OF [place] CORONARY 12/27/2015 NGHIA GUTIERREZ MD, Ot J44. 9 CHRONIC OBSTRUCTIVE PULMONARY DISEASE, U 12/27/2015 NGHIA GUTIERREZ MD, Ot M32. 9 SYSTEMIC LUPUS ERYTHEMATOSUS, UNSPECIFIE 12/27/2015 NGHIA GUTIERREZ MD Ot M79.609 PAIN IN UNSPECIFIED LIMB 12/27/2015 NGHIA GUTIERREZ MD Ot Z23 ENCOUNTER FOR IMMUNIZATION 12/27/2015 NGHIA GUTIERREZ MD, Ot Z68. 41 BODY MASS INDEX (BMI) 40.0-44.9, ADULT 12/27/2015 NGHIA GUTIERREZ MD, Ot Z79.899 OTHER TYPESETTER APPRENTICE (CURRENT) DRUG THERAPY 12/27/2015 NGHIA GUTIERREZ MD, Ot G47. 33 OBSTRUCTIVE SLEEP APNEA (ADULT) (PEDIATR 12/27/2015 NGHIA GUTIERREZ MD, Ot I10 ESSENTIAL (PRIMARY) HYPERTENSION 12/27/2015 NGHIA GUTIERREZ MD, Ot J98. 4 OTHER DISORDERS OF LUNG 12/27/2015 NGHIA GUTIERREZ MD Ot R06. 02 SHORTNESS OF BREATH 12/27/2015 NGHIA GUTIERREZ MD, Ot R07. 9 CHEST PAIN, UNSPECIFIED 12/31/2015 DAVIN DODSON MD Ot E11.9 TYPE 2 DIABETES MELLITUS WITHOUT COMPLIC 12/31/2015 DAVIN DODSON MD, Ot I10 ESSENTIAL (PRIMARY) HYPERTENSION 12/31/2015 DAVIN DODSON MD Ot M79.662 PAIN IN LEFT LOWER LEG 12/31/2015 DAVIN DODSON MD Ot Z79.82 TYPESETTER APPRENTICE (CURRENT) USE OF ASPIRIN 12/31/2015 DAVIN DODSON MD, Ot Z79.899 OTHER ALF (CURRENT) DRUG THERAPY 12/31/2015 DAVIN DODSON MD Ot Z95.5 PRESENCE OF CORONARY ANGIOPLASTY IMPLANT 01/02/2016 DAVIN DODSON MD Ot E11.9 TYPE 2 DIABETES MELLITUS WITHOUT COMPLIC 01/02/2016 DAVIN DODSON MD Ot I10 ESSENTIAL (PRIMARY) HYPERTENSION 01/02/2016 DAVIN DODSON MD Ot M79.662 PAIN IN LEFT LOWER LEG 01/02/2016 DAVIN DODSON MD Ot Z79.82 ALF (CURRENT) USE OF ASPIRIN 01/02/2016 DAVIN DODSON MD Ot Z79.899 OTHER ALF (CURRENT) DRUG THERAPY 01/02/2016 DAVIN DODSON MD [...] MALIGN NEOPLASM OF [place] 01/11/2016 Ot 571.8 PATIENT SERVICE REPRESENTATIVE JOAQUINA LIVER DIS NEC 01/11/2016 Ot 789.09 ABD OMINAL PAIN, OTHER SPECIFIED SITE 01/11/2016 Justyn MORRISSEY MD Ot 595.2 CHRONIC CYSTITIS NEC 01/11/2016 Justyn MORRISSEY MD Ot 599.0 URIN TRACT INFECTION NOS 01/11/2016 Justyn MORRISSEY MD Ot 595.9 CYSTITIS NOS 01/11/2016 [facility] Ot V72.84 EXAM PRE-OPERATIVE NOS 01/11/2016 BATSHEVA LARKIN, KIYA R Ot 368. 9 VISUAL DISTURBANCE NOS 01/11/2016 BATSHEVA LARKIN, KIYA R Ot 784. 0 HEADACHE 01/11/2016 Ot [...] 784. 0 HEADACHE 01/11/2016 NWAGWU, ISIDORE O SET UP OPERATOR Ot 250.00 DIAB JOSE WO COMPL, TYPE II OR UNSPEC TY 01/11/2016 NWMARCO ANTONIOWU, ISIDORE O SET UP OPERATOR Ot 401.9 HYPERTENSION NOS 01/11/2016 NWMARIANA, ISIDORE O SET UP OPERATOR Ot 443.9 PERIPH VASCULAR DIS NOS [...] J45.998 OTHER ASTHMA 01/11/2016 BATSHEVA LARKIN, KIYA Wei Ot K76. 0 FATTY (CHANGE OF) LIVER, NOT ELSEWHERE C 01/11/2016 MENDY LARKIN, LEANNA Alejandra Ot Z12.3 1 ENCNTR SCREEN MAMMOGRAM FOR MALIGNANT NE 01/11/2016 NADJA LARKIN, MARCELO Alejandra Ot M47.8 96 OTHER SPONDYLOSIS, LUMBAR REGION 01/11/2016 BATSHEVA LARKIN, KIYA Wei Ot D64. 9 ANEMIA, UNSPECIFIED 01/11/2016 NGHIA [...] Ot I25. 10 ATHSCL HEART DISEASE OF [place] CORONARY 01/15/2016 NGHIA GUTIERREZ MD Ot J44. 9 CHRONIC OBSTRUCTIVE PULMONARY DISEASE, U 01/15/2016 NGHIA GUTIERREZ MD Ot M32. 9 SYSTEMIC LUPUS ERYTHEMATOSUS, UNSPECIFIE 01/15/2016 NGHIA GUTIERREZ MD Ot M79.609 PAIN IN UNSPECIFIED LIMB 01/15/2016 NGHIA GUTIERREZ MD Ot Z23 ENCOUNTER FOR IMMUNIZATION 01/15/2016 NGHIA GUTIERREZ MD Ot Z68. 41 BODY MASS INDEX (BMI) 40.0-44.9, ADULT 01/15/2016 NGHIA GUTIERREZ MD Ot Z79.899 OTHER ALF (CURRENT) DRUG THERAPY 02/03/2016 BATSHEVA LARKIN, KIYA Sanjuana Ot D64. 9 ANEMIA, UNSPECIFIED 03/26/2016 NGHIA GUTIERREZ MD Ot E11. 9 TYPE 2 DIABETES MELLITUS WITHOUT COMPLIC 03/26/2016 NGHIA GUTIERREZ MD Ot E78. 2 MIXED HYPERLIPIDEMIA 03/26/2016 NGHIA GUTIERREZ MD Ot I10 ESSENTIAL (PRIMARY) HYPERTENSION 03/26/2016 NGHIA GUTIERREZ MD Ot I25. 10 ATHSCL HEART DISEASE OF [place] CORONARY 03/26/2016 NGHIA GUTIERREZ MD Ot R07. 89 OTHER CHEST PAIN 03/31/2016 NGHIA GUTIERREZ MD Ot E11. 9 TYPE 2 DIABETES MELLITUS WITHOUT COMPLIC 03/31/2016 NGHIA GUTIERREZ MD Ot E78. 2 MIXED HYPERLIPIDEMIA 03/31/2016 NGHIA GUTIERREZ MD Ot I10 ESSENTIAL (PRIMARY) HYPERTENSION 03/31/2016 NGHIA GUTIERREZ MD Ot I25. 10 ATHSCL HEART DISEASE OF [place] CORONARY 03/31/2016 NGHIA GUTIERREZ MD Ot R07. 89 OTHER CHEST PAIN 04/07/2016 DAVIN DODSON MD Ot E11.9 TYPE 2 DIABETES MELLITUS WITHOUT COMPLIC 04/07/2016 DAVIN DODSON MD Ot H81.12 BENIGN PAROXYSMAL VERTIGO, LEFT EAR 04/07/2016 DAVIN DODSON MD Ot I10 ESSENTIAL (PRIMARY) HYPERTENSION 04/07/2016 DAVIN DODSON MD Ot I25.10 ATHSCL HEART DISEASE OF [place] CORONARY 04/07/2016 DAVIN DODSON MD Ot I51.7 [...] NAUSEA WITH VOMITING, UNSPECIFIED 04/07/2016 DAVIN DODSON MD Ot R42 DIZZINESS AND GIDDINESS 04/07/2016 DAVIN DODSON MD Ot Z79.02 TYPESETTER APPRENTICE (CURRENT) USE OF ANTITHROMBOTI 04/07/2016 DAVIN DODSON MD Ot Z79.4 ALF (CURRENT) USE OF INSULIN 04/07/2016 DAVIN DODSON MD Ot Z79.84 ALF (CURRENT) USE OF ORAL HYPOGLYC 04/07/2016 DAVIN DODSON MD Ot Z79.899 OTHER TYPESETTER APPRENTICE (CURRENT) DRUG THERAPY 04/08/2016 DAVIN DODSON MD Ot E11.9 TYPE 2 DIABETES MELLITUS WITHOUT COMPLIC 04/08/2016 DAVIN DODSON MD Ot H81.12 BENIGN PAROXYSMAL VERTIGO, LEFT EAR 04/08/2016 DAVIN DODSON MD Ot I10 ESSENTIAL (PRIMARY) HYPERTENSION 04/08/2016 DAVIN DODSON MD Ot I25.10 ATHSCL HEART DISEASE OF [place] CORONARY 04/08/2016 DAVIN DODSON MD Ot I51.7 [...] GIDDINESS 04/08/2016 DAVIN DODSON MD Ot Z79.02 ALF (CURRENT) USE OF ANTITHROMBOTI 04/08/2016 DAVIN DODSON MD Ot Z79.4 TYPESETTER APPRENTICE (CURRENT) USE OF INSULIN 04/08/2016 DAVIN DODSON MD Ot Z79.84 ALF (CURRENT) USE OF ORAL HYPOGLYC 04/08/2016 DAVIN DODSON MD, Ot Z79.899 OTHER ALF (CURRENT) DRUG THERAPY 04/15/2016 NGHIA GUTIERREZ MD Ot E11. 9 TYPE 2 DIABETES MELLITUS WITHOUT COMPLIC 04/15/2016 NGHIA GUTIERREZ MD Ot E78. 2 MIXED HYPERLIPIDEMIA 04/15/2016 NGHIA GUTIERREZ MD Ot I10 ESSENTIAL (PRIMARY) HYPERTENSION 04/15/2016 NGHIA GUTIERREZ MD Ot I25. 10 ATHSCL HEART DISEASE OF [place] CORONARY 04/15/2016 NGHIA GUTIERREZ MD Ot R07. [...] Ot I25. 10 ATHSCL HEART DISEASE OF [place] CORONARY 04/18/2016 NGHIA GUTIERREZ MD Ot R07. [...] Ot I25. 10 ATHSCL HEART DISEASE OF [place] CORONARY 04/29/2016 NGHIA GUTIERREZ MD Ot R07. [...] WITH DIABETIC P 05/15/2016 WHIT ARRINGTON MD Ot E66.9 OBESITY, UNSPECIFIED 05/15/2016 WHIT ARRINGTON MD E Ot E87.7 0 FLUID OVERLOAD, UNSPECIFIED 05/15/2016 WHIT ARRINGTON MD E Ot G47.0 0 INSOMNIA, UNSPECIFIED 05/15/2016 WHIT ARRINGTON MD E Ot I10 ESSENTIAL (PRIMARY) HYPERTENSION 05/15/2016 WHIT ARRINGTON MD E Ot I25.1 0 ATHSCL HEART DISEASE OF [place] CORONARY 05/15/2016 WHIT ARRINGTON MD E Ot I42.9 CARDIOMYOPATHY, UNSPECIFIED 05/15/2016 WHIT ARRINGTON MD E Ot J18.9 PNEUMONIA, UNSPECIFIED ORGANISM 05/15/2016 WHIT ARRINGTON MD E Ot J44.9 CHRONIC OBSTRUCTIVE PULMONARY DISEASE, U 05/15/2016 WHIT ARRINGTON MD E Ot K21.9 GASTRO-ESOPHAGEAL REFLUX DISEASE WITHOUT 05/15/2016 WHIT ARRINGTON MD Ot K59.0 0 CONSTIPATION, UNSPECIFIED 05/15/2016 WHIT ARRINGTON MD Ot N28.9 DISORDER OF KIDNEY AND URETER, UNSPECIFI 05/15/2016 WHIT ARRINGTON MD E Ot N39.0 URINARY TRACT INFECTION, SITE NOT SPECIF 05/15/2016 WHIT ARRINGTON MD E Ot R06.8 9 OTHER ABNORMALITIES OF BREATHING 05/15/2016 WHIT ARRINGTON MD, Ot R47.1 DYSARTHRIA AND ANARTHRIA 05/15/2016 WHIT ARRINGTON MD, Ot Z48.8 12 ENCNTR FOR SURGICAL AFTCR FOLLOWING SURG 05/15/2016 WHIT ARRINGTON MD, Ot Z68.4 1 BODY MASS INDEX (BMI) 40.0-44.9, ADULT 05/15/2016 WHIT ARRINGTON MD, Ot Z79.4 TYPESETTER APPRENTICE (CURRENT) USE OF INSULIN 05/15/2016 WHIT ARRINGTON MD, Ot Z95.5 PRESENCE OF CORONARY ANGIOPLASTY IMPLANT 05/15/2016 WHIT ARRINGTON MD, Ot Z96.6 53 PRESENCE OF ARTIFICIAL KNEE JOINT, BILAT 06/18/2016 BATSHEVA LARKIN, KIYA R Ot J18. 9 [...] R06. 02 SHORTNESS OF BREATH 10/16/2016 BRENDA LARKIN, NGHIA J Ot R07. 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 0 HEADACHE 06/17/2017 NWAGWU, ISIDORE O SET UP OPERATOR Ot 250.00 DIAB JOSE WO COMPL, TYPE II OR UNSPEC TY 06/17/2017 NWAGWU, ISIDORE O SET UP OPERATOR Ot 401.9 HYPERTENSION NOS 06/17/2017 NWAGWU, ISIDORE O SET UP OPERATOR Ot 443.9 PERIPH VASCULAR DIS NOS [...] MURILLO DO Ot J45.998 OTHER ASTHMA 06/17/2017 BATSHEVA LARKIN, KIYA Wei Ot K76. 0 FATTY (CHANGE OF) LIVER, NOT ELSEWHERE C 06/17/2017 MENDY LARKIN, LEANNA Alejandra Ot Z12.3 1 ENCNTR SCREEN MAMMOGRAM FOR MALIGNANT NE 06/17/2017 NADJA LARKIN, MARCELO Alejandra Ot M47.8 96 OTHER SPONDYLOSIS, LUMBAR REGION 06/17/2017 BRENDA LARKIN, NGHIA Alejandra Ot G47. 33 [...] 9 CHEST PAIN, UNSPECIFIED 06/17/2017 MARIPOSA SANCHEZ SET UP OPERATOR Ot J45.909 UNSPECIFIED ASTHMA, UNCOMPLICATED 06/17/2017 MARIPOSA SANCHEZ SET UP OPERATOR Ot J98.4 OTHER DISORDERS OF LUNG 06/17/2017 MARIPOSA SANCHEZ APRN Ot R06.02 SHORTNESS OF BREATH 06/17/2017 BATSHEVA LARKIN, KIYA R Ot D64. 9 ANEMIA, UNSPECIFIED 06/17/2017 NGHIA GUTIERREZ MD Ot E11. 9 TYPE 2 DIABETES MELLITUS WITHOUT COMPLIC 06/17/2017 NGHIA GUTIERREZ MD Ot E78. 2 MIXED HYPERLIPIDEMIA 06/17/2017 NGHIA GUTIERREZ MD Ot I10 ESSENTIAL (PRIMARY) HYPERTENSION 06/17/2017 NGHIA GUTIERREZ MD Ot I25. 10 ATHSCL HEART DISEASE OF [place] CORONARY 06/17/2017 NGHIA GUTIERREZ MD Ot R07. 89 OTHER CHEST PAIN 06/17/2017 NGHIA GUTIERREZ MD Ot E11. 9 TYPE 2 DIABETES MELLITUS WITHOUT COMPLIC 06/17/2017 NGHIA GUTIERREZ MD Ot E78. 2 MIXED HYPERLIPIDEMIA 06/17/2017 NGHIA GUTIERREZ MD Ot I10 ESSENTIAL (PRIMARY) HYPERTENSION 06/17/2017 NGHIA GUTIERREZ MD Ot I25. 10 ATHSCL HEART DISEASE OF [place] CORONARY 06/17/2017 NGHIA GUTIERREZ MD Ot R07. 89 OTHER CHEST PAIN 06/17/2017 SAM HEALY MD Ot I65. 23 OCCLUSION AND STENOSIS OF BILATERAL CAT 06/17/2017 SAM HEALY MD Ot Z01.810 ENCOUNTER FOR PREPROCEDURAL CARDIOVASCUL 06/17/2017 SAM HEALY MD Ot Z01.811 ENCOUNTER FOR PREPROCEDURAL RESPIRATORY 06/17/2017 MONET LARKIN, SAM Ot Z01.812 ENCOUNTER FOR PREPROCEDURAL LABORATORY E 06/17/2017 KIYA HERMAN MD R Ot J18. 9 [...] MALIGN NEOPLASM OF [place] 06/18/2017 Ot 571.8 PATIENT SERVICE REPRESENTATIVE JOAQUINA LIVER DIS NEC 06/18/2017 Ot 789.09 ABD OMINAL PAIN, OTHER SPECIFIED SITE 06/18/2017 Justyn MORRISSEY MD Ot 595.2 CHRONIC CYSTITIS NEC 06/18/2017 uJstyn MORRISSEY MD Ot 599.0 URIN TRACT INFECTION NOS 06/18/2017 Justyn MRORISSEY MD Ot 595.9 CYSTITIS NOS 06/18/2017 MARY [...] 0 URIN TRACT INFECTION NOS 06/18/2017 BATSHEVA LARKIN, KIYA R Ot 786. 2 COUGH 06/18/2017 BATSHEVA LARKIN, KIYA R Ot 786. 50 CHEST PAIN NOS 06/18/2017 BATSHEVA LARKIN, KIYA R Ot 784. 0 HEADACHE 06/18/2017 NWAGWU, ISIDORE O SET UP OPERATOR Ot 250.00 DIAB JOSE WO COMPL, TYPE II OR UNSPEC TY 06/18/2017 NWAGWU, ISIDORE O SET UP OPERATOR Ot 401.9 HYPERTENSION NOS 06/18/2017 NWAGWU, ISIDORE O SET UP OPERATOR Ot 443.9 PERIPH VASCULAR DIS NOS 06/18/2017 LARRY MURILLO DO Ot E03. 9 HYPOTHYROIDISM, UNSPECIFIED 06/18/2017 LARRY MURILLO DO Ot E11. 9 TYPE 2 DIABETES MELLITUS WITHOUT COMPLIC 06/18/2017 LARRY MURILLO DO Ot E66. 9 OBESITY, UNSPECIFIED 06/18/2017 LARRY MURILLO DO M Ot I10 ESSENTIAL (PRIMARY) HYPERTENSION 06/18/2017 LARRY MURILLO DO Ot J45.998 OTHER ASTHMA 06/18/2017 LARRY MURILLO DO Ot E03. 9 HYPOTHYROIDISM, UNSPECIFIED 06/18/2017 LARRY MURILLO DO Ot E11. 9 TYPE 2 DIABETES MELLITUS WITHOUT COMPLIC 06/18/2017 LARRY MURILLO DO Ot E66. 9 OBESITY, UNSPECIFIED 06/18/2017 LARRY MURILLO DO M Ot I10 ESSENTIAL (PRIMARY) HYPERTENSION 06/18/2017 LARRY MURILLO DO Ot J45.998 OTHER ASTHMA 06/18/2017 BATSHEVA LARKIN, KIYA R Ot K76. 0 FATTY (CHANGE OF) LIVER, NOT ELSEWHERE C 06/18/2017 MENDY LARKIN, LEANNA Alejandra Ot Z12.3 1 ENCNTR SCREEN MAMMOGRAM FOR MALIGNANT NE 06/18/2017 NADJA LARKIN, MARCELO Alejandra Ot M47.8 96 OTHER SPONDYLOSIS, LUMBAR REGION 06/18/2017 BRENDA LARKIN, NGHIA Alejandra Ot G47. 33 OBSTRUCTIVE SLEEP APNEA (ADULT) (PEDIATR 06/18/2017 BRENDA LARKIN, NGHIA Alejandra Ot I10 ESSENTIAL (PRIMARY) HYPERTENSION 06/18/2017 BRENDA LARKIN, NGHIA Alejandra Ot J98. 4 [...] J45.909 UNSPECIFIED ASTHMA, UNCOMPLICATED 06/18/2017 MARIPOSA SANCHEZ SET UP OPERATOR Ot J98.4 OTHER DISORDERS OF LUNG 06/18/2017 MARIPOSA SANCHEZ SET UP OPERATOR Ot R06.02 SHORTNESS OF BREATH 06/18/2017 BATSHEVA LARKIN, KIYA Wei Ot D64. 9 ANEMIA, UNSPECIFIED 06/18/2017 NGHIA GUTIERREZ MD Ot E11. 9 TYPE 2 DIABETES MELLITUS WITHOUT COMPLIC 06/18/2017 NGHIA GUTIERREZ MD Ot E78. 2 MIXED HYPERLIPIDEMIA 06/18/2017 NGHIA GUTIERREZ MD Ot I10 ESSENTIAL (PRIMARY) HYPERTENSION 06/18/2017 NGHIA GUTIERREZ MD Ot I25. 10 ATHSCL HEART DISEASE OF [place] CORONARY 06/18/2017 NGHIA GUTIERREZ MD Ot R07. 89 OTHER CHEST PAIN 06/18/2017 NGHIA GUTIERREZ MD Ot E11. 9 TYPE 2 DIABETES MELLITUS WITHOUT COMPLIC 06/18/2017 NGHIA GUTIERREZ MD Ot E78. 2 MIXED HYPERLIPIDEMIA 06/18/2017 NGHIA GUTIERREZ MD Ot I10 ESSENTIAL (PRIMARY) HYPERTENSION 06/18/2017 NGHIA GUTIERREZ MD Ot I25. 10 ATHSCL HEART DISEASE OF [place] CORONARY 06/18/2017 NGHIA GUTIERREZ MD Ot R07. 89 OTHER CHEST PAIN 06/18/2017 SAM HEALY MD Ot I65. 23 OCCLUSION AND STENOSIS OF BILATERAL CAT 06/18/2017 SAM HEALY MD Ot Z01.810 ENCOUNTER FOR PREPROCEDURAL CARDIOVASCUL 06/18/2017 MONET LARKIN, SAM Ot Z01.811 ENCOUNTER FOR PREPROCEDURAL RESPIRATORY 06/18/2017 SAM HEALY MD Ot Z01.812 ENCOUNTER FOR PREPROCEDURAL LABORATORY E 06/18/2017 KIYA HERMAN MD R Ot J18. 9 PNEUMONIA, UNSPECIFIED ORGANISM 06/18/2017 MENDY LARKIN, LEANNA Alejandra Ot Z12.3 1 ENCNTR SCREEN MAMMOGRAM FOR MALIGNANT NE 06/18/2017 KIYA HERMAN MD R Ot R10. 2 PELVIC AND PERINEAL PAIN 06/18/2017 KIYA HERMAN MD R Ot I51. 7 CARDIOMEGALY 06/18/2017 KIYA HERMAN MD R Ot R07. 81 PLEURODYNIA 06/18/2017 KIYA HERMAN MD R Ot R93. 8 ABNORMAL FINDINGS ON DIAGNOSTIC IMAGING 06/18/2017 KIYA HERMAN MD R Ot M79.662 PAIN IN LEFT LOWER LEG 06/19/2017 Ot V76.12 OTH SCREEN MAMMO- MALIGN NEOPLASM OF [place] 06/19/2017 Ot 571.8 PATIENT SERVICE REPRESENTATIVE JOAQUINA LIVER DIS NEC 06/19/2017 Ot 789.09 ABD OMINAL PAIN, OTHER SPECIFIED SITE 06/19/2017 Justyn MORRISSEY MD Ot 595.2 CHRONIC CYSTITIS NEC 06/19/2017 Justyn MORRISSEY MD Ot 599.0 URIN TRACT INFECTION NOS 06/19/2017 Justyn MORRISSEY MD Ot 595.9 CYSTITIS NOS 06/19/2017 [facility] Ot V72.84 EXAM PRE-OPERATIVE NOS 06/19/2017 KIYA [...] 0 URIN TRACT INFECTION NOS 06/19/2017 BATSHEVA LRAKIN, KIYA R Ot 786. 2 COUGH 06/19/2017 BATSHEVA LARKIN, KIYA R Ot 786. 50 CHEST PAIN NOS 06/19/2017 BATSHEVA LARKIN, KIYA R Ot 784. 0 HEADACHE 06/19/2017 NWAGWU, ISIDORE O SET UP OPERATOR Ot 250.00 DIAB JOSE WO COMPL, TYPE II OR UNSPEC TY 06/19/2017 NWAGWU, ISIDORE O SET UP OPERATOR Ot 401.9 HYPERTENSION NOS 06/19/2017 NWAGWU, ISIDORE O SET UP OPERATOR Ot 443.9 PERIPH VASCULAR DIS NOS 06/19/2017 LARRY MURILLO DO M Ot E03. 9 HYPOTHYROIDISM, UNSPECIFIED 06/19/2017 LARRY MURILLO DO Ot E11. 9 TYPE 2 DIABETES MELLITUS WITHOUT COMPLIC 06/19/2017 LARRY MURILLO DO M Ot E66. 9 OBESITY, UNSPECIFIED 06/19/2017 GAMALIEL MURILLO DOSON M Ot I10 ESSENTIAL (PRIMARY) HYPERTENSION 06/19/2017 LARRY MURILLO DO Ot J45.998 OTHER ASTHMA 06/19/2017 LARRY MURILLO DO Ot E03. 9 HYPOTHYROIDISM, UNSPECIFIED 06/19/2017 LARRY MURILLO DO Ot E11. 9 TYPE 2 DIABETES MELLITUS WITHOUT COMPLIC 06/19/2017 LARRY MURILLO DO Ot E66. 9 OBESITY, UNSPECIFIED 06/19/2017 GAMALIEL MURILLO DOSON M Ot I10 ESSENTIAL (PRIMARY) HYPERTENSION 06/19/2017 GAMALIEL MURILLO DOSON M Ot J45.998 OTHER ASTHMA 06/19/2017 BATSHEVA LARKIN, [...] 9 CHEST PAIN, UNSPECIFIED 06/19/2017 MARIPOSA SANCHEZ SET UP OPERATOR Ot J45.909 UNSPECIFIED ASTHMA, UNCOMPLICATED 06/19/2017 MARIPOSA SANCHEZ APRN Ot J98.4 OTHER DISORDERS OF LUNG 06/19/2017 MARIPOSA SANCHEZ APRN Ot R06.02 SHORTNESS OF BREATH 06/19/2017 BATSHEVA LARKIN, KIYA Wei Ot D64. 9 ANEMIA, UNSPECIFIED 06/19/2017 NGHIA GUTIERREZ MD Ot E11. 9 TYPE 2 DIABETES MELLITUS WITHOUT COMPLIC 06/19/2017 NGHIA GUTIERREZ MD Ot E78. 2 MIXED HYPERLIPIDEMIA 06/19/2017 NGHIA GUTIERREZ MD Ot I10 ESSENTIAL (PRIMARY) HYPERTENSION 06/19/2017 NGHIA GUTIERREZ MD Ot I25. 10 ATHSCL HEART DISEASE OF [place] CORONARY 06/19/2017 NGHIA GUTIERREZ MD Ot R07. 89 OTHER CHEST PAIN 06/19/2017 NGHIA GUTIERREZ MD Ot E11. 9 TYPE 2 DIABETES MELLITUS WITHOUT COMPLIC 06/19/2017 NGHIA GUTIERREZ MD Ot E78. 2 MIXED HYPERLIPIDEMIA 06/19/2017 NGHIA GUTIERREZ MD Ot I10 ESSENTIAL (PRIMARY) HYPERTENSION 06/19/2017 NGHIA GUTIERREZ MD Ot I25. 10 ATHSCL HEART DISEASE OF [place] CORONARY 06/19/2017 NGHIA GUTIERREZ MD Ot R07. 89 OTHER CHEST PAIN 06/19/2017 SAM HEALY MD Ot I65. 23 OCCLUSION AND STENOSIS OF BILATERAL CAT 06/19/2017 SAM HEALY MD Ot Z01.810 ENCOUNTER FOR PREPROCEDURAL CARDIOVASCUL 06/19/2017 SAM HEALY MD Ot Z01.811 ENCOUNTER FOR PREPROCEDURAL RESPIRATORY 06/19/2017 SAM HEALY MD Ot Z01.812 ENCOUNTER FOR PREPROCEDURAL LABORATORY E 06/19/2017 KIYA HERMAN MD R Ot J18. 9 [...] OTHER SPECIFIED PROPHYLACT 09/16/2017 KIYA HERMAN MD R Ot Z29. 8 [...] Ot I25.10 ATH SCL HEART DISEASE OF [place] CORONARY 10/13/2017 Ot I42.9 CARD IOMYOPATHY, UNSPECIFIED 10/13/2017 Ot J44.1 PATIENT SERVICE REPRESENTATIVE JOAQUINA OBSTRUCTIVE PULMONARY DISEASE W 10/13/2017 Ot [...] 10/13/[address] IN [facility] NON-INSTITUT (PRIVATE 10/13/2017 Ot Z79.02 TIFFANI G TERM (CURRENT) USE OF ANTITHROMBOTI 10/13/2017 Ot Z79.4 TYPESETTER APPRENTICE (CURRENT) USE OF INSULIN 10/13/2017 Ot Z79.51 [...] CORONARY ANGIOPLASTY IMPLANT 10/27/2017 Ot I82.432 AC JAMUL EMBOLISM AND THROMBOSIS OF LEFT PO 10/27/2017 [...] Ot I10 ESSENTIAL (PRIMARY) HYPERTENSION 10/29/2017 MAGDY IZEGLER APRN Ot I25.10 ATHSCL HEART DISEASE OF [place] CORONARY 10/29/2017 MAGDY ZIEGLER APRN Ot I42 .9 CARDIOMYOPATHY, UNSPECIFIED 10/29/2017 MAGDY ZIEGLER APRN Ot J44 .9 CHRONIC OBSTRUCTIVE PULMONARY DISEASE, U 10/29/2017 MAGDY ZIEGLER APRN Ot R10.13 EPIGASTRIC PAIN 10/29/2017 MAGDY ZIEGLER APRN Ot Z79.02 ALF (CURRENT) USE OF ANTITHROMBOTI 10/29/2017 MAGDY ZIEGLER APRN Ot Z79 .4 ALF (CURRENT) USE OF INSULIN 10/29/2017 MAGDY ZIEGLER APRN Ot Z79.51 ALF (CURRENT) USE OF INHALED STERO 10/29/2017 MAGDY ZIEGLER APRN Ot Z79.52 ALF (CURRENT) USE OF SYSTEMIC STER 10/29/2017 MAGDY ZIEGLER APRN Ot Z79.82 ALF (CURRENT) USE OF ASPIRIN 10/29/2017 MAGDY ZIEGLER [...] .8 ALLERGY STATUS TO OTH DRUG/MEDS/BIOL SUB 10/29/2017 MAGDY ZIEGLER APRN Ot Z90.89 ACQUIRED ABSENCE OF OTHER ORGANS 10/29/2017 MAGDY ZIEGLER APRN Ot Z95 .5 PRESENCE OF CORONARY ANGIOPLASTY IMPLANT 10/30/2017 Ot I82.432 AC JAMUL EMBOLISM AND THROMBOSIS OF LEFT PO 10/30/2017 [...] APRN Ot I25.10 ATHSCL HEART DISEASE OF [place] CORONARY 11/02/2017 MAGDY ZIEGLER APRN Ot I42 .9 CARDIOMYOPATHY, UNSPECIFIED 11/02/2017 MAGDY ZIEGLER APRN Ot J44 .9 CHRONIC OBSTRUCTIVE PULMONARY DISEASE, U 11/02/2017 MAGDY ZIEGLER APRN Ot R10.13 EPIGASTRIC PAIN 11/02/2017 MAGDY ZIEGLER APRN Ot Z79.02 ALF (CURRENT) USE OF ANTITHROMBOTI 11/02/2017 MAGDY ZIEGLER APRN Ot Z79 .4 TYPESETTER APPRENTICE (CURRENT) USE OF INSULIN 11/02/2017 MAGDY ZIEGLER APRN Ot Z79.51 TYPESETTER APPRENTICE (CURRENT) USE OF INHALED STERO 11/02/2017 MAGDY ZIEGLER APRN Ot Z79.52 ALF (CURRENT) USE OF SYSTEMIC STER 11/02/2017 MAGDY ZIEGLER APRN Ot Z79.82 ALF (CURRENT) USE OF ASPIRIN 11/02/2017 MAGDY ZIEGLER [...] .8 ALLERGY STATUS TO OT DRUG/MEDS/BIOL SUB 11/02/2017 MAGDY ZIEGLER APRN Ot [...] Ot I25. 10 ATHSCL HEART DISEASE OF [place] CORONARY 11/04/2017 LARRY MURILLO DO, Ot I34. 0 NONRHEUMATIC MITRAL (VALVE) INSUFFICIENC [...] PRIMARY OSTEOARTHRITIS, UNSPECIFIED SITE 11/04/2017 LARRY MURILLO DO Ot M32. 9 SYSTEMIC LUPUS ERYTHEMATOSUS, UNSPECIFIE [...] Ot R30. 0 DYSURIA 11/04/2017 LARRY MURILLO DO, Ot R60. 0 LOCALIZED EDEMA 11/04/2017 LARRY MURILLO DO Ot Z68. 41 BODY MASS INDEX (BMI) 40.0-44.9, ADULT 11/04/2017 LARRY MURILLO DO Ot Z79. 4 ALF (CURRENT) USE OF INSULIN 11/04/2017 LARRY MURILLO [...] APRN Ot I25.10 ATHSCL HEART DISEASE OF [place] CORONARY 11/05/2017 MAGDY ZIEGLER APRN Ot I42 .9 CARDIOMYOPATHY, UNSPECIFIED 11/05/2017 MAGDY ZIEGLER APRN Ot J44 .9 CHRONIC OBSTRUCTIVE PULMONARY DISEASE, U 11/05/2017 MAGDY ZIEGLER APRN Ot R10.13 EPIGASTRIC PAIN 11/05/2017 MAGDY ZIEGLER APRN Ot Z79.02 TYPESETTER APPRENTICE (CURRENT) USE OF ANTITHROMBOTI 11/05/2017 MAGDY ZIEGLER APRN Ot Z79 .4 ALF (CURRENT) USE OF INSULIN 11/05/2017 MAGDY ZIEGLER APRN Ot Z79.51 TYPESETTER APPRENTICE (CURRENT) USE OF INHALED STERO 11/05/2017 MAGDY ZIEGLER APRN Ot Z79.52 ALF (CURRENT) USE OF SYSTEMIC STER 11/05/2017 MAGDY ZIEGLER APRN Ot Z79.82 TYPESETTER APPRENTICE (CURRENT) USE OF ASPIRIN 11/05/2017 MAGDY ZIEGLER [...] Ot I25. 10 ATHSCL HEART DISEASE OF [place] CORONARY 11/10/2017 MARILY PANDEY DO Ot I42. [...] 11/10/2017 MARILY PANDEY DO Ot Z79. 4 ALF (CURRENT) USE OF INSULIN 11/10/2017 MARILY PANDEY DO Ot Z79. 82 TYPESETTER APPRENTICE (CURRENT) USE OF ASPIRIN 11/10/2017 MARILY PANDEY DO Ot Z95. 5 PRESENCE OF CORONARY ANGIOPLASTY IMPLANT 11/12/2017 MARILY PANDEY DO Ot E11. 42 TYPE 2 DIABETES MELLITUS WITH DIABETIC P 11/12/2017 MARILY PANDEY DO Ot E66. 01 MORBID (SEVERE) OBESITY DUE TO EXCESS CA 11/12/2017 MARLIY PANDEY DO Ot G47. 33 OBSTRUCTIVE SLEEP APNEA (ADULT) (PEDIATR 11/12/2017 MARILY PANDEY DO Ot I10 ESSENTIAL (PRIMARY) HYPERTENSION 11/12/2017 MARILY PANDEY DO Ot I25. 10 ATHSCL HEART DISEASE OF [place] CORONARY 11/12/2017 MARILY PANDEY DO Ot I42. [...] 11/12/2017 MARILY PANDEY DO Ot Z79. 4 TYPESETTER APPRENTICE (CURRENT) USE OF INSULIN 11/12/2017 MARILY PANDEY DO Ot Z79. 82 TYPESETTER APPRENTICE (CURRENT) USE OF ASPIRIN 11/12/2017 MARILY PANDEY DO Ot Z95. 5 PRESENCE OF CORONARY ANGIOPLASTY IMPLANT 12/03/2017 ABI PANG APRN Ot N63.20 UNSPECIFIED LUMP IN THE LEFT BREAST, UNS 12/03/2017 ABI PANG APRN Ot N64.4 MASTODYNIA 12/06/2017 NORA ESCAMILLA Ot D50.9 IRON DEFICIENCY ANEMIA, UNSPECIFIED 12/06/2017 NORA ESCAMILLA Ot E03.9 HYPOTHYROIDISM, UNSPECIFIED 12/06/2017 NORA ESCAMILLA Ot 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 W DIABETIC PATIENT SERVICE REPRESENTATIVE 12/06/2017 NORA ESCAMILLA Ot G47.33 OBSTRUCTIVE SLEEP APNEA (ADULT) (PEDIATR 12/06/2017 NORA ESCAMILLA Ot I12.9 HYPERTENSIVE CHRONIC KIDNEY DISEASE W ST 12/06/2017 NORA ESCAMILLA Ot I25.10 ATHSCL HEART DISEASE OF [place] CORONARY 12/06/2017 FRANCINE, BOBAN N Ot J45.909 UNSPECIFIED ASTHMA, UNCOMPLICATED 12/06/2017 FRANCINE, BOBAN N Ot K25.9 GASTRIC ULCER, UNSP ACUTE OR CHRONIC, 12/06/2017 FRANCINE, BOBAN N Ot K29.50 UNSPECIFIED CHRONIC GASTRITIS WITHOUT BL 12/06/2017 FRANCINE, BOBAN N Ot N18.3 CHRONIC KIDNEY DISEASE, STAGE 3 (MODERAT 12/06/2017 FRANCINE BOBAN N Ot Z79.4 TYPESETTER APPRENTICE (CURRENT) USE OF INSULIN 12/06/2017 FRANCINE, BOBAN N Ot Z79.82 TYPESETTER APPRENTICE (CURRENT) USE OF ASPIRIN 12/06/2017 MARIPOSA SANCHEZ APRN Ot J98.4 OTHER DISORDERS OF LUNG 12/06/2017 MARIPOSA SANCHEZ APRN Ot R06.02 SHORTNESS OF BREATH 12/06/2017 MARIPOSA SANCHEZ APRN Ot R09.02 HYPOXEMIA 12/08/2017 SABRINA ESCAMILLAAN N Ot D50.9 IRON DEFICIENCY ANEMIA, UNSPECIFIED 12/08/2017 FRANCINE BOBAN N Ot E03.9 HYPOTHYROIDISM, UNSPECIFIED 12/08/2017 FRANCINE BOBAN N Ot 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 W DIABETIC PATIENT SERVICE REPRESENTATIVE 12/08/2017 FRANCINE BOBAN N Ot G47.33 OBSTRUCTIVE SLEEP APNEA (ADULT) (PEDIATR 12/08/2017 FRANCINE BOBAN N Ot I12.9 HYPERTENSIVE CHRONIC KIDNEY DISEASE W ST 12/08/2017 FRANCINE BOBAN N Ot I25.10 ATHSCL HEART DISEASE OF [place] CORONARY 12/08/2017 FRANCINESABRINAAN N Ot J45.909 UNSPECIFIED ASTHMA, UNCOMPLICATED 12/08/2017 FRANCINE, BOBAN N Ot K25.9 GASTRIC ULCER, UNSP ACUTE OR CHRONIC, 12/08/2017 FRANCINE, BOBAN N Ot K29.50 UNSPECIFIED CHRONIC GASTRITIS WITHOUT BL 12/08/2017 FRANCINE, BOBAN N Ot N18.3 CHRONIC KIDNEY DISEASE, STAGE 3 (MODERAT 12/08/2017 FRANCINE BOBAN N Ot Z79.4 ALF (CURRENT) USE OF INSULIN 12/08/2017 SABRINA ESCAMILLAAN N Ot Z79.82 ALF (CURRENT) USE OF ASPIRIN 12/09/2017 MARIPOSA SANCHEZ APRN Ot J98.4 OTHER DISORDERS OF LUNG 12/09/2017 MARIPOSA SANCHEZ SET UP OPERATOR Ot R06.02 SHORTNESS OF BREATH 12/09/2017 MARIPOSA SANCHEZ SET UP OPERATOR Ot R09.02 HYPOXEMIA 12/22/2017 MARIPOSA SANCHEZ SET UP OPERATOR Ot J98.4 OTHER DISORDERS OF LUNG 12/22/2017 MARIPOSA SANCHEZ SET UP OPERATOR Ot R06.02 SHORTNESS OF BREATH 12/22/2017 MARIPOSA SANCHEZ SET UP OPERATOR Ot R09.02 HYPOXEMIA 12/22/2017 MARIPOSA SANCHEZ SET UP OPERATOR Ot J98.4 OTHER DISORDERS OF LUNG 12/22/2017 MARIPOSA SANCHEZ SET UP OPERATOR Ot R06.02 SHORTNESS OF BREATH 12/22/2017 MARIPOSA SANCHEZ SET UP OPERATOR Ot R09.02 HYPOXEMIA 12/22/2017 POLY, ABI R SET UP OPERATOR Ot N63.20 UNSPECIFIED LUMP IN THE LEFT BREAST, UNS 12/22/2017 POLY, ABI R SET UP OPERATOR Ot N64.4 MASTODYNIA 12/23/2017 MARIPOSA SANCHEZ SET UP OPERATOR Ot J98.4 OTHER DISORDERS OF LUNG 12/23/2017 MARIPOSA SANCHEZ SET UP OPERATOR Ot R06.02 SHORTNESS OF BREATH 12/23/2017 MARIPOSA SANCHEZ SET UP OPERATOR Ot R09.02 HYPOXEMIA 12/28/2017 POLY, ABI R SET UP OPERATOR Ot N63.20 UNSPECIFIED LUMP IN THE LEFT BREAST, UNS 12/28/2017 POLY, ABI R SET UP OPERATOR Ot N64.4 MASTODYNIA 12/31/2017 MARIPOSA SANCHEZ SET UP OPERATOR Ot J98.4 OTHER DISORDERS OF LUNG 12/31/2017 MARIPOSA SANCHEZ SET UP OPERATOR Ot R06.02 SHORTNESS OF BREATH 12/31/2017 MARIPOSA SANCHEZ SET UP OPERATOR Ot R09.02 HYPOXEMIA 01/05/2018 LOUISE LAND SET UP OPERATOR Ot R30.0 DYSURIA 01/06/2018 LOUISE LAND SET UP OPERATOR Ot R30.0 DYSURIA 01/07/2018 MARIPOSA SANCHEZ SET UP OPERATOR Ot J98.4 OTHER DISORDERS OF LUNG 01/07/2018 MARIPOSA SANCHEZ SET UP OPERATOR Ot R06.02 SHORTNESS OF BREATH 01/07/2018 MARIPOSA SANCHEZ SET UP OPERATOR Ot R09.02 HYPOXEMIA 01/12/2018 MARIPOSA SANCHEZ SET UP OPERATOR Ot J98.4 OTHER DISORDERS OF LUNG 01/12/2018 DANIEL MARIPOSA Stephen SET UP OPERATOR Ot R06.02 SHORTNESS OF BREATH 01/12/2018 MARIPOSA SANCHEZ SET UP OPERATOR Ot R09.02 HYPOXEMIA 01/21/2018 MARIPOSA SANCHEZ SET UP OPERATOR Ot J98.4 OTHER DISORDERS OF LUNG 01/21/2018 DANIEL MARIPOSA Stephen SET UP OPERATOR Ot R06.02 SHORTNESS OF BREATH 01/21/2018 MARIPOSA SANCHEZ SET UP OPERATOR Ot R09.02 HYPOXEMIA 01/21/2018 DANIEL MARIPOSA Stephen SET UP OPERATOR Ot J98.4 OTHER DISORDERS OF LUNG 01/21/2018 MARIPOSA SANCHEZ SET UP OPERATOR Ot R06.02 SHORTNESS OF BREATH 01/21/2018 MARIPOSA SANCHEZ SET UP OPERATOR Ot R09.02 HYPOXEMIA 01/26/2018 MARIPOSA SANCHEZ SET UP OPERATOR Ot J98.4 OTHER DISORDERS OF LUNG 01/26/2018 MARIPOSA SANCHEZ SET UP OPERATOR Ot R06.02 SHORTNESS OF BREATH 01/26/2018 MARIPOSA SANCHEZ SET UP OPERATOR Ot R09.02 HYPOXEMIA 01/27/2018 PANDEYMARILY BURT DO Ot Z01.818 ENCOUNTER FOR OTHER PREPROCEDURAL EXAMIN 01/27/2018 PANDEYMARILY BURT DO Ot Z01.818 ENCOUNTER FOR OTHER PREPROCEDURAL EXAMIN 01/27/2018 PANDEYMARILY BURT DO Ot Z01.818 ENCOUNTER FOR OTHER PREPROCEDURAL EXAMIN 02/01/2018 MARILY PANDEY DO Ot Z01.818 ENCOUNTER FOR OTHER PREPROCEDURAL EXAMIN 02/01/2018 NORA ESCAMILLA Ot D50.9 IRON DEFICIENCY ANEMIA, UNSPECIFIED 02/01/2018 NORA ESCAMILLA Ot E03.9 HYPOTHYROIDISM, UNSPECIFIED 02/01/2018 NORA ESCAMILLA Ot 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 W DIABETIC PATIENT SERVICE REPRESENTATIVE 02/01/2018 NORA ESCAMILLA Ot G47.33 OBSTRUCTIVE SLEEP APNEA (ADULT) (PEDIATR 02/01/2018 NORA ESCAMILLA Ot I12.9 HYPERTENSIVE CHRONIC KIDNEY DISEASE W ST 02/01/2018 NORA ESCAMILLA Ot I25.10 ATHSCL HEART DISEASE OF [place] CORONARY 02/01/2018 NORA ESCAMILLA Ot J45.909 UNSPECIFIED ASTHMA, UNCOMPLICATED 02/01/2018 FRANCINE, NORA Anna Ot K25.9 GASTRIC ULCER, UNSP ACUTE OR CHRONIC, 02/01/2018 FRANCINE, SABRINANAZARIO Wilfrido Ot K29.50 UNSPECIFIED CHRONIC GASTRITIS WITHOUT BL 02/01/2018 FRANCINE, NORA Anna Ot N18.3 CHRONIC KIDNEY DISEASE, STAGE 3 (MODERAT 02/01/2018 FRANCINE, NORA Anna Ot Z79.4 ALF (CURRENT) USE OF INSULIN 02/01/2018 FRANCINE, NORA Anna Ot Z79.82 TYPESETTER APPRENTICE (CURRENT) USE OF ASPIRIN 02/01/2018 MARIPOSA SANCHEZ [...] Ot I25. 10 ATHSCL HEART DISEASE OF [place] CORONARY 02/02/2018 MARILY PANDEY DO Ot J44. [...] 02/02/2018 MARILY PANDEY DO Ot Z79. 4 ALF (CURRENT) USE OF INSULIN 02/02/2018 MARILY PANDEY DO Ot Z79. 82 ALF (CURRENT) USE OF ASPIRIN 02/02/2018 MARILY PANDEY DO Ot Z79.899 OTHER ALF (CURRENT) DRUG THERAPY 02/02/2018 MARILY PANDEY DO Ot Z95. 5 PRESENCE OF CORONARY ANGIOPLASTY IMPLANT 02/02/2018 NORA ESCAMILLA Ot D50.9 IRON DEFICIENCY ANEMIA, UNSPECIFIED 02/02/2018 NORA ESCAMILLA Ot E03.9 HYPOTHYROIDISM, UNSPECIFIED 02/02/2018 NORA ESCAMILLA Ot 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 W DIABETIC PATIENT SERVICE REPRESENTATIVE 02/02/2018 NORA ESCAMILLA Ot G47.33 OBSTRUCTIVE SLEEP APNEA (ADULT) (PEDIATR 02/02/2018 NORA ESCAMILLA Ot I12.9 HYPERTENSIVE CHRONIC KIDNEY DISEASE W ST 02/02/2018 NORA ESCAMILLA Ot I25.10 ATHSCL HEART DISEASE OF [place] CORONARY 02/02/2018 NORA ESCAMILLA Ot J45.909 UNSPECIFIED ASTHMA, UNCOMPLICATED 02/02/2018 ONRA ESCAMILLA Ot K25.9 GASTRIC ULCER, UNSP ACUTE OR CHRONIC, 02/02/2018 NORA ESCAMILLA Ot K29.50 UNSPECIFIED CHRONIC GASTRITIS WITHOUT BL 02/02/2018 NORA ESCAMILLA Ot N18.3 CHRONIC KIDNEY DISEASE, STAGE 3 (MODERAT 02/02/2018 NORA ESCAMILLA Ot Z79.4 TYPESETTER APPRENTICE (CURRENT) USE OF INSULIN 02/02/2018 NORA ESCAMILLA Ot Z79.82 ALF (CURRENT) USE OF ASPIRIN 02/02/2018 MARIPOSA SANCHEZ [...] Ot I25. 10 ATHSCL HEART DISEASE OF [place] CORONARY 02/03/2018 MARILY PANDEY DO Ot J44. [...] 02/03/2018 MARILY PANDEY DO Ot Z79. 4 ALF (CURRENT) USE OF INSULIN 02/03/2018 MARILY PANDEY DO Ot Z79. 82 ALF (CURRENT) USE OF ASPIRIN 02/03/2018 MARILY PANDEY DO Ot Z79.899 OTHER TYPESETTER APPRENTICE (CURRENT) DRUG THERAPY 02/03/2018 MARILY PANDEY DO [...] APRN Ot I25.10 ATHSCL HEART DISEASE OF [place] CORONARY 02/24/2018 MARIPOSA SANCHEZ APRN Ot J45.909 [...] Ot I25. 10 ATHSCL HEART DISEASE OF [place] CORONARY 02/26/2018 MARILY PANDEY DO Ot J44. [...] 02/26/2018 MARILY PANDEY DO Ot Z79. 4 ALF (CURRENT) USE OF INSULIN 02/26/2018 MARILY PANDEY DO Ot Z79. 82 ALF (CURRENT) USE OF ASPIRIN 02/26/2018 MARILY PANDEY DO Ot Z79.899 OTHER ALF (CURRENT) DRUG THERAPY 02/26/2018 MARILY PANDEY DO [...] Ot D50.9 IRON DEFICIENCY ANEMIA, UNSPECIFIED 03/21/2018 ONRA ESCAMILLA Ot E03.9 HYPOTHYROIDISM, UNSPECIFIED 03/21/2018 NORA ESCAMILLA Ot 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 W DIABETIC PATIENT SERVICE REPRESENTATIVE 03/21/2018 NORA ESCAMILLA Ot G47.33 OBSTRUCTIVE SLEEP APNEA (ADULT) (PEDIATR 03/21/2018 NORA ESCAMILLA Ot I12.9 HYPERTENSIVE CHRONIC KIDNEY DISEASE W ST 03/21/2018 NORA ESCAMILLA Ot I25.10 ATHSCL HEART DISEASE OF [place] CORONARY 03/21/2018 NORA ESCAMILLA Ot J45.909 UNSPECIFIED ASTHMA, UNCOMPLICATED 03/21/2018 NORA ESCAMILLA Ot K25.9 GASTRIC ULCER, UNSP ACUTE OR CHRONIC, 03/21/2018 NORA ESCAMILLA Ot K29.50 UNSPECIFIED CHRONIC GASTRITIS WITHOUT BL 03/21/2018 NORA ESCAMILLA Ot N18.3 CHRONIC KIDNEY DISEASE, STAGE 3 (MODERAT 03/21/2018 NORA ESCAMILLA Ot Z79.4 TYPESETTER APPRENTICE (CURRENT) USE OF INSULIN 03/21/2018 NORA ESCAMILLA Ot Z79.82 ALF (CURRENT) USE OF ASPIRIN 03/22/2018 MARIPOSA SANCHEZ APRN Ot J98.4 OTHER DISORDERS OF LUNG 03/22/2018 MARIPOSA SANCHEZ APRN Ot R06.02 SHORTNESS OF BREATH 03/22/2018 MARIPOSA SANCHEZ APRN Ot R09.02 HYPOXEMIA 03/22/2018 NORA ESCAMILLA N Ot D50.9 IRON DEFICIENCY ANEMIA, UNSPECIFIED 03/22/2018 NORA ESCAMILLA N Ot E03.9 HYPOTHYROIDISM, UNSPECIFIED 03/22/2018 NORA ESCAMILLA N Ot 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 W DIABETIC PATIENT SERVICE REPRESENTATIVE 03/22/2018 NORA ESCAMILLA N Ot G47.33 OBSTRUCTIVE SLEEP APNEA (ADULT) (PEDIATR 03/22/2018 NORA ESCAMILLA N Ot I12.9 HYPERTENSIVE CHRONIC KIDNEY DISEASE W ST 03/22/2018 NORA ESCAMILLA N Ot I25.10 ATHSCL HEART DISEASE OF [place] CORONARY 03/22/2018 NORA ESCAMILLA N Ot J45.909 UNSPECIFIED ASTHMA, UNCOMPLICATED 03/22/2018 NORA ESCAMILLA N Ot K25.9 GASTRIC ULCER, UNSP ACUTE OR CHRONIC, 03/22/2018 NORA ESCAMILLA N Ot K29.50 UNSPECIFIED CHRONIC GASTRITIS WITHOUT BL 03/22/2018 NORA ESCAMILLA N Ot N18.3 CHRONIC KIDNEY DISEASE, STAGE 3 (MODERAT 03/22/2018 NORA ESCAMILLA N Ot Z79.4 ALF (CURRENT) USE OF INSULIN 03/22/2018 NORA ESCAMILLA N Ot Z79.82 TYPESETTER APPRENTICE (CURRENT) USE OF ASPIRIN 03/23/2018 MARIPOSA SANCHEZ APRN Ot J98.4 OTHER DISORDERS OF LUNG 03/23/2018 MARIPOSA SANCHEZ APRN Ot R06.02 SHORTNESS OF BREATH 03/23/2018 MARIPOSA SANCHEZ APRN Ot R09.02 HYPOXEMIA 03/25/2018 MARIPOSA SANCHEZ APRN Ot I05.9 RHEUMATIC MITRAL VALVE DISEASE, UNSPECIF 03/25/2018 MARIPOSA SANCHEZ APRN Ot I25.10 ATHSCL HEART DISEASE OF [place] CORONARY 03/25/2018 MARIPOSA SANCHEZ APRN Ot J45.909 UNSPECIFIED ASTHMA, UNCOMPLICATED 03/25/2018 MARIPOSA SANCHEZ APRN Ot J98.4 OTHER DISORDERS OF LUNG 03/26/2018 MARIPOSA SANCHEZ APRN Ot G47.33 OBSTRUCTIVE SLEEP APNEA (ADULT) (PEDIATR 03/27/2018 NORA ESCAMILLA N Ot D50.9 IRON DEFICIENCY ANEMIA, UNSPECIFIED 03/27/2018 NORA ESCAMILLA N Ot E03.9 HYPOTHYROIDISM, UNSPECIFIED 03/27/2018 NORA ESCAMILLA N Ot 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 W DIABETIC PATIENT SERVICE REPRESENTATIVE 03/27/2018 NORA ESCAMILLA N Ot G47.33 OBSTRUCTIVE SLEEP APNEA (ADULT) (PEDIATR 03/27/2018 NORA ESCAMILLA N Ot I12.9 HYPERTENSIVE CHRONIC KIDNEY DISEASE W ST 03/27/2018 FRANCINE SABRINANAZARIO N Ot I25.10 ATHSCL HEART DISEASE OF [place] CORONARY 03/27/2018 FRANCINE NORA N Ot J45.909 UNSPECIFIED ASTHMA, UNCOMPLICATED 03/27/2018 NORA ESCAMILLA N Ot K25.9 GASTRIC ULCER, UNSP ACUTE OR CHRONIC, 03/27/2018 FRANCINE NORA N Ot K29.50 UNSPECIFIED CHRONIC GASTRITIS WITHOUT BL 03/27/2018 NORA ESCAMILLA N Ot N18.3 CHRONIC KIDNEY DISEASE, STAGE 3 (MODERAT 03/27/2018 FRANCINE SABRINANAZARIO N Ot Z79.4 TYPESETTER APPRENTICE (CURRENT) USE OF INSULIN 03/27/2018 FRANCINE NORA N Ot Z79.82 TYPESETTER APPRENTICE (CURRENT) USE OF ASPIRIN 03/28/2018 MARIPOSA SANCHEZ SET UP OPERATOR Ot J98.4 OTHER DISORDERS OF LUNG 03/28/2018 MARIPOSA SANCHEZ SET UP OPERATOR Ot R06.02 SHORTNESS OF BREATH 03/28/2018 MARIPOSA SANCHEZ SET UP OPERATOR Ot R09.02 HYPOXEMIA 03/30/2018 MARIPOSA SANCHEZ SET UP OPERATOR Ot J98.4 OTHER DISORDERS OF LUNG 03/30/2018 MARIPOSA SANCHEZ SET UP OPERATOR Ot R06.02 SHORTNESS OF BREATH 03/30/2018 MARIPOSA SANCHEZ SET UP OPERATOR Ot R09.02 HYPOXEMIA 03/30/2018 MARIPOSA SANCHEZ SET UP OPERATOR Ot G47.33 OBSTRUCTIVE SLEEP APNEA (ADULT) (PEDIATR 03/30/2018 MARIPOSA SANCHEZ SET UP OPERATOR Ot G47.33 OBSTRUCTIVE SLEEP APNEA (ADULT) (PEDIATR 03/31/2018 MARIPOSA SANCHEZ SET UP OPERATOR Ot G47.33 OBSTRUCTIVE SLEEP APNEA (ADULT) (PEDIATR 03/31/2018 MARIPOSA SANCHEZ SET UP OPERATOR Ot J45.909 UNSPECIFIED ASTHMA, UNCOMPLICATED 03/31/2018 MARIPOSA SANCHEZ SET UP OPERATOR Ot J98.4 OTHER DISORDERS OF LUNG 03/31/2018 MARIPOSA SANCHEZ SET UP OPERATOR Ot R06.02 SHORTNESS OF BREATH 03/31/2018 MARIPOSA SANCHEZ SET UP OPERATOR Ot R07.89 OTHER CHEST PAIN 03/31/2018 MARIPOSA SANCHEZ SET UP OPERATOR Ot R09.02 HYPOXEMIA 03/31/2018 MARIPOSA SANCHEZ SET UP OPERATOR Ot I05.9 RHEUMATIC MITRAL VALVE DISEASE, UNSPECIF 03/31/2018 MARIPOSA SANCHEZ SET UP OPERATOR Ot I25.10 ATHSCL HEART DISEASE OF [place] CORONARY 03/31/2018 MARIPOSA SANCHEZ SET UP OPERATOR Ot J45.909 UNSPECIFIED ASTHMA, UNCOMPLICATED 03/31/2018 MARIPOSA SANCHEZ SET UP OPERATOR Ot J98.4 OTHER DISORDERS OF LUNG 03/31/2018 MARIPOSA SANCHEZ SET UP OPERATOR Ot G47.33 OBSTRUCTIVE SLEEP APNEA (ADULT) (PEDIATR 03/31/2018 MARIPOSA SANCHEZ SET UP OPERATOR Ot J45.909 UNSPECIFIED ASTHMA, UNCOMPLICATED 03/31/2018 MARIPOSA SANCHEZ SET UP OPERATOR Ot J98.4 OTHER DISORDERS OF LUNG 03/31/2018 MARIPOSA SANCHEZ SET UP OPERATOR Ot R06.02 SHORTNESS OF BREATH 03/31/2018 MARIPOSA SANCHEZ SET UP OPERATOR Ot R07.89 OTHER CHEST PAIN 03/31/2018 MARIPOSA SANCHEZ SET UP OPERATOR Ot R09.02 HYPOXEMIA 04/01/2018 MARIPOSA SANCHEZ SET UP OPERATOR Ot J98.4 OTHER DISORDERS OF LUNG 04/01/2018 MARIPOSA SANCHEZ SET UP OPERATOR Ot R06.02 SHORTNESS OF BREATH 04/01/2018 MARIPOSA SANCHEZ SET UP OPERATOR Ot R09.02 HYPOXEMIA 04/06/2018 MARIPOSA SANCHEZ SET UP OPERATOR Ot J98.4 OTHER DISORDERS OF LUNG 04/06/2018 MARIPOSA SANCHEZ SET UP OPERATOR Ot R06.02 SHORTNESS OF BREATH 04/06/2018 MARIPOSA SANCHEZ SET UP OPERATOR Ot R09.02 HYPOXEMIA 04/08/2018 MARIPOSA SANCHEZ SET UP OPERATOR Ot J98.4 OTHER DISORDERS OF LUNG 04/08/2018 MARIPOSA SANCHEZ SET UP OPERATOR Ot R06.02 SHORTNESS OF BREATH 04/08/2018 MARIPOSA SANCHEZ SET UP OPERATOR Ot R09.02 HYPOXEMIA 04/13/2018 MARIPOSA SANCHEZ SET UP OPERATOR Ot J98.4 OTHER DISORDERS OF LUNG 04/13/2018 MARIPOSA SANCHEZ SET UP OPERATOR Ot R06.02 SHORTNESS OF BREATH 04/13/2018 MARIPOSA SANCHEZ SET UP OPERATOR Ot R09.02 HYPOXEMIA 04/17/2018 MARIPOSA SANCHEZ SET UP OPERATOR Ot J98.4 OTHER DISORDERS OF LUNG 04/17/2018 MARIPOSA SANCHEZ SET UP OPERATOR Ot R06.02 SHORTNESS OF BREATH 04/17/2018 MARIPOSA SANCHEZ SET UP OPERATOR Ot R09.02 HYPOXEMIA 04/21/2018 NORA ESCAMILLA Ot D50.9 IRON DEFICIENCY ANEMIA, UNSPECIFIED 04/21/2018 NORA ESCAMILLA N Ot E03.9 HYPOTHYROIDISM, UNSPECIFIED 04/21/2018 NORA ESCAMILLA N Ot 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 W DIABETIC PATIENT SERVICE REPRESENTATIVE 04/21/2018 NROA ESCAMILLA N Ot G47.33 OBSTRUCTIVE SLEEP APNEA (ADULT) (PEDIATR 04/21/2018 NORA ESCAMILLA N Ot I12.9 HYPERTENSIVE CHRONIC KIDNEY DISEASE W ST 04/21/2018 NORA ESCAMILLA N Ot I25.10 ATHSCL HEART DISEASE OF [place] CORONARY 04/21/2018 NORA ESCAMILLA N Ot J45.909 UNSPECIFIED ASTHMA, UNCOMPLICATED 04/21/2018 NORA ESCAMILLA N Ot K25.9 GASTRIC ULCER, UNSP ACUTE OR CHRONIC, 04/21/2018 NORA ESCAMILLA Ot K29.50 UNSPECIFIED CHRONIC GASTRITIS WITHOUT BL 04/21/2018 NORA ESCAMILLA N Ot N18.3 CHRONIC KIDNEY DISEASE, STAGE 3 (MODERAT 04/21/2018 NORA ESCAMILLA Ot Z79.4 TYPESETTER APPRENTICE (CURRENT) USE OF INSULIN 04/21/2018 NORA ESCAMILLA N Ot Z79.82 ALF (CURRENT) USE OF ASPIRIN 04/22/2018 NORA ESCAMILLA N Ot D50.9 IRON DEFICIENCY ANEMIA, UNSPECIFIED 04/22/2018 NORA ESCAMILLA N Ot E03.9 HYPOTHYROIDISM, UNSPECIFIED 04/22/2018 NORA ESCAMILLA N Ot 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 W DIABETIC PATIENT SERVICE REPRESENTATIVE 04/22/2018 NORA ESCAMILLA N Ot G47.33 OBSTRUCTIVE SLEEP APNEA (ADULT) (PEDIATR 04/22/2018 NORA ESCAMILLA N Ot I12.9 HYPERTENSIVE CHRONIC KIDNEY DISEASE W ST 04/22/2018 NORA ESCAMILLA Wilfrido Ot I25.10 ATHSCL HEART DISEASE OF [place] CORONARY 04/22/2018 NORA ESCAMILLA Wilfrido Ot J45.909 UNSPECIFIED ASTHMA, UNCOMPLICATED 04/22/2018 NORA ESCAMILLA Wilfrido Ot K25.9 GASTRIC ULCER, UNSP ACUTE OR CHRONIC, 04/22/2018 NORA ESCAMILLA Wilfrido Ot K29.50 UNSPECIFIED CHRONIC GASTRITIS WITHOUT BL 04/22/2018 NORA ESCAMILLA Wilfrido Ot N18.3 CHRONIC KIDNEY DISEASE, STAGE 3 (MODERAT 04/22/2018 NORA ESCAMILLA Wilfrido Ot Z79.4 ALF (CURRENT) USE OF INSULIN 04/22/2018 FRANCINE SABRINANAZARIO Wilfrido Ot Z79.82 ALF (CURRENT) USE OF ASPIRIN 04/27/2018 MARIPOSA SANCHEZ APRN Ot J98.4 OTHER DISORDERS OF LUNG 04/27/2018 MARIPOSA SANCHEZ SET UP OPERATOR Ot R06.02 SHORTNESS OF BREATH 04/27/2018 MARIPOSA SANCHEZ SET UP OPERATOR Ot R09.02 HYPOXEMIA 05/04/2018 MARIPOSA SANCHEZ SET UP OPERATOR Ot J98.4 OTHER DISORDERS OF LUNG 05/04/2018 MARIPOSA SANCHEZ SET UP OPERATOR Ot R06.02 SHORTNESS OF BREATH 05/04/2018 MARIPOSA SANCHEZ SET UP OPERATOR Ot R09.02 HYPOXEMIA 05/05/2018 MARIPOSA SANCHEZ SET UP OPERATOR Ot J98.4 OTHER DISORDERS OF LUNG 05/05/2018 MARIPOSA SANCHEZ SET UP OPERATOR Ot R06.02 SHORTNESS OF BREATH 05/05/2018 MARIPOSA SANCHEZ SET UP OPERATOR Ot R09.02 HYPOXEMIA 05/07/2018 MARIPOSA SANCHEZ SET UP OPERATOR Ot J98.4 OTHER DISORDERS OF LUNG 05/07/2018 MARIPOSA SANCHEZ SET UP OPERATOR Ot R06.02 SHORTNESS OF BREATH 05/07/2018 MARIPOSA SANCHEZ SET UP OPERATOR Ot R09.02 HYPOXEMIA 05/08/2018 MARIPOSA SANCHEZ SET UP OPERATOR Ot G47.33 OBSTRUCTIVE SLEEP APNEA (ADULT) (PEDIATR 05/08/2018 MARIPOSA SANCHEZ SET UP OPERATOR Ot J30.9 ALLERGIC RHINITIS, UNSPECIFIED 05/08/2018 MARIPOSA SANCHEZ SET UP OPERATOR Ot J45.909 UNSPECIFIED ASTHMA, UNCOMPLICATED 05/08/2018 MARIPOSA SANCHEZ SET UP OPERATOR Ot J98.4 OTHER DISORDERS OF LUNG 05/08/2018 MARIPOSA SANCHEZ SET UP OPERATOR Ot R06.02 SHORTNESS OF BREATH 05/08/2018 MARIPOSA SANCHEZ SET UP OPERATOR Ot R07.89 OTHER CHEST PAIN 05/08/2018 MARIPOSA SANCHEZ SET UP OPERATOR Ot R09.02 HYPOXEMIA 05/10/2018 MARIPOSA SANCHEZ SET UP OPERATOR Ot G47.33 OBSTRUCTIVE SLEEP APNEA (ADULT) (PEDIATR 05/10/2018 MARIPOSA SANCHEZ SET UP OPERATOR Ot J30.9 ALLERGIC RHINITIS, UNSPECIFIED 05/10/2018 MARIPOSA SANCHEZ SET UP OPERATOR Ot J45.909 UNSPECIFIED ASTHMA, UNCOMPLICATED 05/10/2018 MARIPOSA SANCHEZ SET UP OPERATOR Ot J98.4 OTHER DISORDERS OF LUNG 05/10/2018 MARIPOSA SANCHEZ SET UP OPERATOR Ot R06.02 SHORTNESS OF BREATH 05/10/2018 MARIPOSA SANCHEZ SET UP OPERATOR Ot R07.89 OTHER CHEST PAIN 05/10/2018 MARIPOSA SANCHEZ SET UP OPERATOR Ot R09.02 HYPOXEMIA 05/11/2018 MARIPOSA SANCHEZ SET UP OPERATOR Ot J98.4 OTHER DISORDERS OF LUNG 05/11/2018 MARIPOSA SANCHEZ SET UP OPERATOR Ot R06.02 SHORTNESS OF BREATH 05/11/2018 MARIPOSA SANCHEZ SET UP OPERATOR Ot R09.02 HYPOXEMIA 05/13/2018 MARIPOSA SANCHEZ SET UP OPERATOR Ot J98.4 OTHER DISORDERS OF LUNG 05/13/2018 MARIPOSA SANCHEZ SET UP OPERATOR Ot R06.02 SHORTNESS OF BREATH 05/13/2018 MARIPOSA SANCHEZ SET UP OPERATOR Ot R09.02 HYPOXEMIA 05/20/2018 MARIPOSA SANCHEZ SET UP OPERATOR Ot J98.4 OTHER DISORDERS OF LUNG 05/20/2018 MARIPOSA SANCHEZ SET UP OPERATOR Ot R06.02 SHORTNESS OF BREATH 05/20/2018 MARIPOSA SANCHEZ SET UP OPERATOR Ot R09.02 HYPOXEMIA 05/27/2018 MARIPOSA SANCHEZ SET UP OPERATOR Ot J98.4 OTHER DISORDERS OF LUNG 05/27/2018 MARIPOSA SANCHEZ SET UP OPERATOR Ot R06.02 SHORTNESS OF BREATH 05/27/2018 MARIPOSA SANCHEZ SET UP OPERATOR Ot R09.02 HYPOXEMIA 05/28/2018 NORA ESCAMILLA Ot D50.9 IRON DEFICIENCY ANEMIA, UNSPECIFIED 05/28/2018 NORA ESCAMILLA N Ot E03.9 HYPOTHYROIDISM, UNSPECIFIED 05/28/2018 NORA ESCAMILLA N Ot 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 W DIABETIC PATIENT SERVICE REPRESENTATIVE 05/28/2018 NORA ESCAMILLA N Ot G47.33 OBSTRUCTIVE SLEEP APNEA (ADULT) (PEDIATR 05/28/2018 NORA ESCAMILLA N Ot I12.9 HYPERTENSIVE CHRONIC KIDNEY DISEASE W ST 05/28/2018 NORA ESCAMILLA Ot I25.10 ATHSCL HEART DISEASE OF [place] CORONARY 05/28/2018 NORA ESCAMILLA N Ot J45.909 UNSPECIFIED ASTHMA, UNCOMPLICATED 05/28/2018 NORA ESCAMILLA N Ot K25.9 GASTRIC ULCER, UNSP ACUTE OR CHRONIC, 05/28/2018 NORA ESCAMILLA N Ot K29.50 UNSPECIFIED CHRONIC GASTRITIS WITHOUT BL 05/28/2018 NORA ESCAMILLA Ot N18.3 CHRONIC KIDNEY DISEASE, STAGE 3 (MODERAT 05/28/2018 NORA ESCAMILLA Ot Z79.4 ALF (CURRENT) USE OF INSULIN 05/28/2018 NORA ESCAMILLA N Ot Z79.82 ALF (CURRENT) USE OF ASPIRIN 06/01/2018 MARIPOSA SANCHEZ SET UP OPERATOR Ot J98.4 OTHER DISORDERS OF LUNG 06/01/2018 MARIPOSA SANCHEZ SET UP OPERATOR Ot R06.02 SHORTNESS OF BREATH 06/01/2018 MARIPOSA SANCHEZ E SET UP OPERATOR Ot R09.02 HYPOXEMIA 06/01/2018 MARIPOSA SANCHEZ SET UP OPERATOR Ot J98.4 OTHER DISORDERS OF LUNG 06/01/2018 MARIPOSA SANCHEZ SET UP OPERATOR Ot R06.02 SHORTNESS OF BREATH 06/01/2018 MARIPOSA SANCHEZ SET UP OPERATOR Ot R09.02 HYPOXEMIA 06/01/2018 NORA ESCAMILLA N Ot D50.9 IRON DEFICIENCY ANEMIA, UNSPECIFIED 06/01/2018 NORA ESCAMILLA N Ot E03.9 HYPOTHYROIDISM, UNSPECIFIED 06/01/2018 NORA ESCAMILLA N Ot 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 W DIABETIC PATIENT SERVICE REPRESENTATIVE 06/01/2018 NORA ESCAMILLA N Ot G47.33 OBSTRUCTIVE SLEEP APNEA (ADULT) (PEDIATR 06/01/2018 NORA ESCAMILLA Ot I12.9 HYPERTENSIVE CHRONIC KIDNEY DISEASE W ST 06/01/2018 NORA ESCAMILLA Wilfrido Ot I25.10 ATHSCL HEART DISEASE OF [place] CORONARY 06/01/2018 NORA ESCAMILLA Wilfrido Ot J45.909 UNSPECIFIED ASTHMA, UNCOMPLICATED 06/01/2018 NORA ESCAMILLA Wilfrido Ot K25.9 GASTRIC ULCER, UNSP ACUTE OR CHRONIC, 06/01/2018 NORA ESCAMILLA Wilfrido Ot K29.50 UNSPECIFIED CHRONIC GASTRITIS WITHOUT BL 06/01/2018 NORA ESCAMILLA Wilfrido Ot N18.3 CHRONIC KIDNEY DISEASE, STAGE 3 (MODERAT 06/01/2018 NORA ESCAMILLA Wilfrido Ot Z79.4 TYPESETTER APPRENTICE (CURRENT) USE OF INSULIN 06/01/2018 FRANCINE, NORA Anna Ot Z79.82 TYPESETTER APPRENTICE (CURRENT) USE OF ASPIRIN 06/01/2018 TO GRAY [...] 06/01/2018 TO GRAY MD Ot Z79. 4 TYPESETTER APPRENTICE (CURRENT) USE OF INSULIN 06/01/2018 TO GRAY MD Ot Z79. 51 ALF (CURRENT) USE OF INHALED STERO 06/01/2018 TO GRAY MD Ot Z79. 82 ALF (CURRENT) USE OF ASPIRIN 06/01/2018 TO GRAY [...] MD Ot Z88. 8 ALLERGY STATUS TO OT DRUG/MEDS/BIOL SUB 06/01/2018 TO GRAY MD Ot [...] 06/03/2018 TO GRAY MD Ot Z79. 4 ALF (CURRENT) USE OF INSULIN 06/03/2018 TO GRAY MD, Ot Z79. 51 ALF (CURRENT) USE OF INHALED STERO 06/03/2018 TO GRAY MD Ot Z79. 82 ALF (CURRENT) USE OF ASPIRIN 06/03/2018 TO GRAY MD, Ot Z82. 49 FAMILY HX OF ISCHEM HEART DIS AND OTH DI 06/03/2018 TO GRAY MD Ot Z87.440 PERSONAL HISTORY OF URINARY (TRACT) INFE 06/03/2018 TO GRAY MD, Ot Z88. 0 ALLERGY STATUS TO PENICILLIN 06/03/2018 TO GRAY MD, Ot Z88. 5 ALLERGY STATUS TO NARCOTIC AGENT STATUS 06/03/2018 TO GRAY MD, Ot Z88. 6 ALLERGY STATUS TO ANALGESIC AGENT STATUS 06/03/2018 TO GRAY MD, Ot Z88. 8 ALLERGY STATUS TO OT DRUG/MEDS/BIOL SUB 06/03/2018 TO GRAY MD, Ot Z90. 89 ACQUIRED ABSENCE OF OTHER [...] 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 W DIABETIC PATIENT SERVICE REPRESENTATIVE 07/20/2018 NORA ESCAMILLA Ot G47.33 OBSTRUCTIVE SLEEP APNEA (ADULT) (PEDIATR 07/20/2018 NORA ESCAMILLA Ot I12.9 HYPERTENSIVE CHRONIC KIDNEY DISEASE W ST 07/20/2018 NORA ESCAMILLA Ot I25.10 ATHSCL HEART DISEASE OF [place] CORONARY 07/20/2018 FRANCINE SABRINAAN N Ot J45.909 UNSPECIFIED ASTHMA, UNCOMPLICATED 07/20/2018 FRANCINE, BOBAN N Ot K25.9 GASTRIC ULCER, UNSP ACUTE OR CHRONIC, 07/20/2018 FRANCINE, BOBAN N Ot K29.50 UNSPECIFIED CHRONIC GASTRITIS WITHOUT BL 07/20/2018 FRANCINE, BOBAN N Ot N18.3 CHRONIC KIDNEY DISEASE, STAGE 3 (MODERAT 07/20/2018 FRANCINE BOBAN N Ot Z79.4 TYPESETTER APPRENTICE (CURRENT) USE OF INSULIN 07/20/2018 FRANCINE, BOBAN N Ot Z79.82 ALF (CURRENT) USE OF ASPIRIN 07/21/2018 FRANCINE, BOBAN N Ot D50.9 IRON DEFICIENCY ANEMIA, UNSPECIFIED 07/21/2018 FRANCINE BOBAN N Ot E03.9 HYPOTHYROIDISM, UNSPECIFIED 07/21/2018 FRANCINE, BOBAN N Ot 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 W DIABETIC PATIENT SERVICE REPRESENTATIVE 07/21/2018 FRANCINE BOBAN N Ot G47.33 OBSTRUCTIVE SLEEP APNEA (ADULT) (PEDIATR 07/21/2018 FRANCINE BOBAN N Ot I12.9 HYPERTENSIVE CHRONIC KIDNEY DISEASE W ST 07/21/2018 FRANCINESABRINAAN N Ot I25.10 ATHSCL HEART DISEASE OF [place] CORONARY 07/21/2018 FRANCINE NORA N Ot J45.909 UNSPECIFIED ASTHMA, UNCOMPLICATED 07/21/2018 FRANCINE, BOBAN N Ot K25.9 GASTRIC ULCER, UNSP ACUTE OR CHRONIC, 07/21/2018 FRANCINESABRINAAN N Ot K29.50 UNSPECIFIED CHRONIC GASTRITIS WITHOUT BL 07/21/2018 FRANCINESABRINAAN N Ot N18.3 CHRONIC KIDNEY DISEASE, STAGE 3 (MODERAT 07/21/2018 FRANCINESABRINAAN N Ot Z79.4 ALF (CURRENT) USE OF INSULIN 07/21/2018 FRANCINE BOBAN N Ot Z79.82 ALF (CURRENT) USE OF ASPIRIN 10/28/2018 FRANCINE BOBAN N Ot D50.9 IRON DEFICIENCY ANEMIA, UNSPECIFIED 10/28/2018 FRANCINE BOBAN N Ot E03.9 HYPOTHYROIDISM, UNSPECIFIED 10/28/2018 FRANCINE, BOBAN N Ot 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 W DIABETIC PATIENT SERVICE REPRESENTATIVE 10/28/2018 FRANCINE, BOBAN N Ot G47.33 OBSTRUCTIVE SLEEP APNEA (ADULT) (PEDIATR 10/28/2018 NORA ESCAIMLLA Ot I12.9 HYPERTENSIVE CHRONIC KIDNEY DISEASE W ST 10/28/2018 NORA ESCAMILLA Ot I25.10 ATHSCL HEART DISEASE OF [place] CORONARY 10/28/2018 NORA ESCAMILLA Ot J45.909 UNSPECIFIED ASTHMA, UNCOMPLICATED 10/28/2018 NORA ESCAMILLA Ot K25.9 GASTRIC ULCER, UNSP ACUTE OR CHRONIC, 10/28/2018 NORA ESCAMILLA Ot K29.50 UNSPECIFIED CHRONIC GASTRITIS WITHOUT BL 10/28/2018 NORA ESCAMILLA Ot N18.3 CHRONIC KIDNEY DISEASE, STAGE 3 (MODERAT 10/28/2018 NORA ESCAMILLA Ot Z79.4 ALF (CURRENT) USE OF INSULIN 10/28/2018 NORA ESCAMILLA Ot Z79.82 ALF (CURRENT) USE OF ASPIRIN 11/05/2018 MAGDY ZIEGLER [...] APRN Ot I25.10 ATHSCL HEART DISEASE OF [place] CORONARY 11/05/2018 MAGDY ZIEGLER APRN Ot I42 .9 CARDIOMYOPATHY, UNSPECIFIED 11/05/2018 MAGDY ZIEGLER APRN Ot J44 .9 CHRONIC OBSTRUCTIVE PULMONARY DISEASE, U 11/05/2018 MAGDY ZIEGLER APRN Ot M32 .9 SYSTEMIC LUPUS ERYTHEMATOSUS, UNSPECIFIE 11/05/2018 MAGDY ZIEGLER APRN Ot R06.02 SHORTNESS OF BREATH 11/05/2018 MAGDY ZIEGLER APRN Ot R07.89 OTHER CHEST PAIN 11/05/2018 MAGDY ZIEGLER APRN Ot Z79.82 TYPESETTER APPRENTICE (CURRENT) USE OF ASPIRIN 11/05/2018 MAGDY ZIEGLER APRN Ot Z79.84 TYPESETTER APPRENTICE (CURRENT) USE OF ORAL HYPOGLYC 11/05/2018 MAGDY [...] 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 W DIABETIC PATIENT SERVICE REPRESENTATIVE 12/12/2018 NORA ESCAMILLA Ot G47.33 OBSTRUCTIVE SLEEP APNEA (ADULT) (PEDIATR 12/12/2018 NORA ESCAMILLA Ot I12.9 HYPERTENSIVE CHRONIC KIDNEY DISEASE W ST 12/12/2018 NORA ESCAMILLA Ot I25.10 ATHSCL HEART DISEASE OF [place] CORONARY 12/12/2018 NORA ESCAMILLA Ot J45.909 UNSPECIFIED ASTHMA, UNCOMPLICATED 12/12/2018 NORA ESCAMILLA Ot K25.9 GASTRIC ULCER, UNSP ACUTE OR CHRONIC, 12/12/2018 NORA ESCAMILLA Ot K29.50 UNSPECIFIED CHRONIC GASTRITIS WITHOUT BL 12/12/2018 NORA ESCAMILLA Ot N18.3 CHRONIC KIDNEY DISEASE, STAGE 3 (MODERAT 12/12/2018 NORA ESCAMILLA Ot Z79.4 TYPESETTER APPRENTICE (CURRENT) USE OF INSULIN 12/12/2018 FRANCINE, BOBAN N Ot Z79.82 ALF (CURRENT) USE OF ASPIRIN 12/13/2018 FRANCINE, BOBAN N Ot D50.9 IRON DEFICIENCY ANEMIA, UNSPECIFIED 12/13/2018 FRANCINE, BOBAN N Ot E03.9 HYPOTHYROIDISM, UNSPECIFIED 12/13/2018 FRANCINE, BOBAN N Ot 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 W DIABETIC PATIENT SERVICE REPRESENTATIVE 12/13/2018 FRANCINE, BOBAN N Ot G47.33 OBSTRUCTIVE SLEEP APNEA (ADULT) (PEDIATR 12/13/2018 FRANCINE, BOBAN N Ot I12.9 HYPERTENSIVE CHRONIC KIDNEY DISEASE W ST 12/13/2018 FRANCINE, BOBAN N Ot I25.10 ATHSCL HEART DISEASE OF [place] CORONARY 12/13/2018 FRANCINE, BOBAN N Ot J45.909 UNSPECIFIED ASTHMA, UNCOMPLICATED 12/13/2018 FRANCINE, BOBAN N Ot K25.9 GASTRIC ULCER, UNSP ACUTE OR CHRONIC, 12/13/2018 FRANCINE, BOBAN N Ot K29.50 UNSPECIFIED CHRONIC GASTRITIS WITHOUT BL 12/13/2018 FRANCINE, BOBAN N Ot N18.3 CHRONIC KIDNEY DISEASE, STAGE 3 (MODERAT 12/13/2018 FRANCINE BOBAN N Ot Z79.4 TYPESETTER APPRENTICE (CURRENT) USE OF INSULIN 12/13/2018 FRANCINE, BOBAN N Ot Z79.82 ALF (CURRENT) USE OF ASPIRIN 12/18/2018 FRANCINE, BOBAN N Ot D50.9 IRON DEFICIENCY ANEMIA, UNSPECIFIED 12/18/2018 FRANCINE, BOBAN N Ot E03.9 HYPOTHYROIDISM, UNSPECIFIED 12/18/2018 FRANCINE, BOBAN N Ot 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 W DIABETIC PATIENT SERVICE REPRESENTATIVE 12/18/2018 FRANCINE, BOBAN N Ot G47.33 OBSTRUCTIVE SLEEP APNEA (ADULT) (PEDIATR 12/18/2018 FRANCINE, BOBAN N Ot I12.9 HYPERTENSIVE CHRONIC KIDNEY DISEASE W ST 12/18/2018 FRANCINE, BOBAN N Ot I25.10 ATHSCL HEART DISEASE OF [place] CORONARY 12/18/2018 FRANCINE, BOBAN N Ot J45.909 UNSPECIFIED ASTHMA, UNCOMPLICATED 12/18/2018 FRANCINE, BOBAN N Ot K25.9 GASTRIC ULCER, UNSP ACUTE OR CHRONIC, 12/18/2018 FRANCINE, BOBAN N Ot K29.50 UNSPECIFIED CHRONIC GASTRITIS WITHOUT BL 12/18/2018 NORA ESCAMILLA Ot N18.3 CHRONIC KIDNEY DISEASE, STAGE 3 (MODERAT 12/18/2018 NORA ESCAMILLA Ot Z79.4 TYPESETTER APPRENTICE (CURRENT) USE OF INSULIN 12/18/2018 NORA ESCAMILLA Ot Z79.82 ALF (CURRENT) USE OF ASPIRIN 12/31/2018 EMERY LOUISELEX Panchal APRN Ot N30.00 ACUTE CYSTITIS WITHOUT HEMATURIA [...] MD Ot I25.10 ATHSCL HEART DISEASE OF [place] CORONARY 12/31/2018 DAVIN DODSON MD Ot J44.9 CHRONIC OBSTRUCTIVE PULMONARY DISEASE, U 12/31/2018 DAVIN DODSON MD Ot N39.0 URINARY TRACT INFECTION, SITE NOT SPECIF 12/31/2018 DAVIN DODSON MD Ot R10.84 GENERALIZED ABDOMINAL PAIN 12/31/2018 DAVIN DODSON MD Ot R11.2 NAUSEA WITH VOMITING, UNSPECIFIED 12/31/2018 DAVIN DODSON MD Ot R19.7 DIARRHEA, UNSPECIFIED 12/31/2018 DAVIN DODSON MD Ot Z79.4 ALF (CURRENT) USE OF INSULIN 12/31/2018 DAVIN DODSON MD Ot Z79.51 ALF (CURRENT) USE OF INHALED STERO 12/31/2018 DAVIN DODSON MD Ot Z79.82 TYPESETTER APPRENTICE (CURRENT) USE OF ASPIRIN 12/31/2018 DAVIN DODSON [...] OF CORONARY ANGIOPLASTY IMPLANT 12/31/2018 DAVIN DODSON MD, Ot Z99.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 01/02/2019 KIYA HERMAN MD Ot Z29. 8 ENCOUNTER FOR OTHER SPECIFIED PROPHYLACT 01/02/2019 KIYA HERMAN MD Ot Z29. 8 ENCOUNTER FOR OTHER SPECIFIED PROPHYLACT 01/03/2019 LOUISE LAND SET UP OPERATOR Ot N30.00 ACUTE CYSTITIS WITHOUT HEMATURIA 01/04/2019 DAVIN DODSON MD, Ot E03.9 HYPOTHYROIDISM, UNSPECIFIED 01/04/2019 DAVIN DODSON MD Ot E11.9 TYPE 2 DIABETES MELLITUS WITHOUT COMPLIC 01/04/2019 DAVIN DODSON MD Ot E78.00 PURE HYPERCHOLESTEROLEMIA, UNSPECIFIED 01/04/2019 DAVIN DODSON MD Ot F32.9 MAJOR DEPRESSIVE DISORDER, SINGLE EPISOD 01/04/2019 DAVIN DODSON MD, Ot F41.9 ANXIETY DISORDER, UNSPECIFIED 01/04/2019 DAVIN DODSON MD, Ot G47.30 SLEEP APNEA, UNSPECIFIED 01/04/2019 DAVIN DODSON MD, Ot I10 ESSENTIAL (PRIMARY) HYPERTENSION 01/04/2019 DAVIN DODSON MD, Ot I25.10 ATHSCL HEART DISEASE OF [place] CORONARY 01/04/2019 DAVIN DODSON MD, Ot J44.9 CHRONIC OBSTRUCTIVE PULMONARY DISEASE, U 01/04/2019 DAVIN DODSON MD, Ot N39.0 URINARY TRACT INFECTION, SITE NOT SPECIF 01/04/2019 DAVIN DODSON MD Ot R10.84 GENERALIZED ABDOMINAL PAIN 01/04/2019 DAVIN DODSON MD, Ot R11.2 NAUSEA WITH VOMITING, UNSPECIFIED 01/04/2019 DAVIN DODSON MD, Ot R19.7 DIARRHEA, UNSPECIFIED 01/04/2019 DAVIN DODSON MD, Ot Z79.4 TYPESETTER APPRENTICE (CURRENT) USE OF INSULIN 01/04/2019 DAVIN DODSON MD, Ot Z79.51 TYPESETTER APPRENTICE (CURRENT) USE OF INHALED STERO 01/04/2019 DAVIN DODSON MD, Ot Z79.82 TYPESETTER APPRENTICE (CURRENT) USE OF ASPIRIN 01/04/2019 DAVIN DODSON [...] APRN Ot I25.10 ATHSCL HEART DISEASE OF [place] CORONARY 02/28/2019 MAGDY ZIEGLER APRN Ot J44 .9 CHRONIC OBSTRUCTIVE PULMONARY DISEASE, U 02/28/2019 MAGDY ZIEGLER APRN Ot R10.11 RIGHT UPPER QUADRANT PAIN 02/28/2019 MAGDY ZIEGLER APRN Ot Z79 .4 ALF (CURRENT) USE OF INSULIN 02/28/2019 MAGDY ZIEGLER APRN Ot Z79.51 TYPESETTER APPRENTICE (CURRENT) USE OF INHALED STERO 02/28/2019 MAGDY ZIEGLER APRN Ot Z79.82 ALF (CURRENT) USE OF ASPIRIN 02/28/2019 MAGDY ZIEGLER [...] APRN Ot I25.10 ATHSCL HEART DISEASE OF [place] CORONARY 03/03/2019 MAGDY ZIEGLER APRN Ot J44 .9 CHRONIC OBSTRUCTIVE PULMONARY DISEASE, U 03/03/2019 MAGDY ZIEGLER APRN Ot R10.11 RIGHT UPPER QUADRANT PAIN 03/03/2019 MAGDY ZIEGLER APRN Ot Z79 .4 TYPESETTER APPRENTICE (CURRENT) USE OF INSULIN 03/03/2019 MAGDY ZIEGLER APRN Ot Z79.51 ALF (CURRENT) USE OF INHALED STERO 03/03/2019 MAGDY ZIEGLER APRN Ot Z79.82 TYPESETTER APPRENTICE (CURRENT) USE OF ASPIRIN 03/03/2019 MAGDY ZIEGLER [...] STATUS TO OTH DRUG/MEDS/BIOL SUB 03/03/2019 MAGDY ZIEGLRE APRN Ot Z90.49 ACQUIRED ABSENCE OF OTHER [...] APRN Ot I25.10 ATHSCL HEART DISEASE OF [place] CORONARY 03/06/2019 MAGDY ZIEGLER APRN Ot J44 .9 CHRONIC OBSTRUCTIVE PULMONARY DISEASE, U 03/06/2019 MAGDY ZIEGLER APRN Ot R10.11 RIGHT UPPER QUADRANT PAIN 03/06/2019 MAGDY ZIEGLER APRN Ot Z79 .4 ALF (CURRENT) USE OF INSULIN 03/06/2019 MAGDY ZIEGLER APRN Ot Z79.51 ALF (CURRENT) USE OF INHALED STERO 03/06/2019 MAGDY ZIEGLER APRN Ot Z79.82 ALF (CURRENT) USE OF ASPIRIN 03/06/2019 MAGDY ZIEGLER [...] ACQUIRED ABSENCE OF OTHER SPECIFIED PART 03/06/2019 MAGYD ZIEGLER Justyn SET UP OPERATOR Ot Z95 .5 PRESENCE OF CORONARY ANGIOPLASTY IMPLANT 03/22/2019 BATSHEVA LARKIN, KIYA R Ot 599. 0 URIN TRACT INFECTION NOS 03/22/2019 MARIPOSA SANCHEZ SET UP OPERATOR Ot J45.909 UNSPECIFIED ASTHMA, UNCOMPLICATED 03/22/2019 MARIPOSA SANCHEZ SET UP OPERATOR Ot J98.4 OTHER DISORDERS OF LUNG [...] MD Ot I25.10 ATHSCL HEART DISEASE OF [place] CORONARY 03/22/2019 SHARLA DOWNS MD Ot J44.9 CHRONIC OBSTRUCTIVE PULMONARY DISEASE, U 03/22/2019 SHARLA DOWNS MD Ot R07.89 OTHER CHEST PAIN 03/22/2019 SHARLA DOWNS MD Ot R51 HEADACHE 03/22/2019 SHARLA DOWNS MD Ot Z79.4 ALF (CURRENT) USE OF INSULIN 03/22/2019 SHARLA DOWNS MD, Ot Z79.51 ALF (CURRENT) USE OF INHALED STERO 03/22/2019 SHARLA DOWNS MD, Ot Z79.82 ALF (CURRENT) USE OF ASPIRIN 03/22/2019 SHARLA DOWNS [...] OTHER ENABLING MACHINES AN 03/25/2019 SHARLA DOWNS MD Ot E03.9 HYPOTHYROIDISM, UNSPECIFIED 03/25/2019 SHARLA DOWNS MD Ot E11.9 TYPE 2 DIABETES MELLITUS WITHOUT COMPLIC 03/25/2019 SHARLA DOWNS MD Ot E78.00 PURE HYPERCHOLESTEROLEMIA, UNSPECIFIED 03/25/2019 SHARLA DOWNS MD Ot F32.9 MAJOR DEPRESSIVE DISORDER, SINGLE EPISOD 03/25/2019 SHARLA DOWNS MD Ot F41.9 ANXIETY DISORDER, UNSPECIFIED 03/25/2019 SHARLA DOWNS MD Ot G43.909 MIGRAINE, UNSP, NOT INTRACTABLE, WITHOUT 03/25/2019 SHARLA DOWNS MD, Ot G47.30 SLEEP APNEA, UNSPECIFIED 03/25/2019 SHARLA DOWNS MD Ot I10 ESSENTIAL (PRIMARY) HYPERTENSION 03/25/2019 SHARLA DOWNS MD Ot I25.10 ATHSCL HEART DISEASE OF [place] CORONARY 03/25/2019 SHARLA DOWNS MD Ot J44.9 CHRONIC OBSTRUCTIVE PULMONARY DISEASE, U 03/25/2019 SHARLA DOWNS MD, Ot R07.89 OTHER CHEST PAIN 03/25/2019 SHARLA DOWNS MD, Ot R51 HEADACHE 03/25/2019 SHARLA DOWNS MD, Ot Z79.4 ALF (CURRENT) USE OF INSULIN 03/25/2019 SHARLA DOWNS MD, Ot Z79.51 ALF (CURRENT) USE OF INHALED STERO 03/25/2019 SHARLA DOWNS MD, Ot Z79.82 TYPESETTER APPRENTICE (CURRENT) USE OF ASPIRIN 03/25/2019 SHARLA DOWNS MD, Ot Z82.49 FAMILY HX OF ISCHEM HEART DIS AND OTH DI 03/25/2019 SHARLA DOWNS MD, Ot Z87.440 PERSONAL HISTORY OF URINARY (TRACT) INFE 03/25/2019 SHARLA DOWNS MD, Ot Z88.0 ALLERGY STATUS TO PENICILLIN 03/25/2019 SHARLA DOWNS MD, Ot Z88.5 ALLERGY STATUS TO NARCOTIC AGENT STATUS 03/25/2019 SHARLA DOWNS MD, Ot Z88.8 ALLERGY STATUS TO OT DRUG/MEDS/BIOL SUB 03/25/2019 SHARLA DOWNS MD, Ot Z90.49 ACQUIRED ABSENCE OF OTHER SPECIFIED PART 03/25/2019 SHARLA DOWNS MD Ot Z95.5 PRESENCE OF CORONARY ANGIOPLASTY IMPLANT 03/25/2019 SHARLA DOWNS MD Ot Z99.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 03/28/2019 SHARLA DOWNS MD, Ot E03.9 HYPOTHYROIDISM, UNSPECIFIED 03/28/2019 SHARLA DOWNS MD Ot E11.9 TYPE 2 DIABETES MELLITUS WITHOUT COMPLIC 03/28/2019 SHARLA DOWNS MD Ot E78.00 PURE HYPERCHOLESTEROLEMIA, UNSPECIFIED 03/28/2019 SHARLA DOWNS MD, Ot F32.9 MAJOR DEPRESSIVE DISORDER, SINGLE EPISOD 03/28/2019 SHARLA DOWNS MD, Ot F41.9 ANXIETY DISORDER, UNSPECIFIED 03/28/2019 SHARLA DOWNS MD, Ot G43.909 MIGRAINE, UNSP, NOT INTRACTABLE, WITHOUT 03/28/2019 SHARLA DOWNS MD, Ot G47.30 SLEEP APNEA, UNSPECIFIED 03/28/2019 SHARLA DOWNS MD, Ot I10 ESSENTIAL (PRIMARY) HYPERTENSION 03/28/2019 SHARLA DOWNS MD, Ot I25.10 ATHSCL HEART DISEASE OF [place] CORONARY 03/28/2019 SHARLA DOWNS MD, Ot J44.9 CHRONIC OBSTRUCTIVE PULMONARY DISEASE, U 03/28/2019 SHARLA DOWNS MD, Ot R07.89 OTHER CHEST PAIN 03/28/2019 SHARLA DOWNS MD, Ot R51 HEADACHE 03/28/2019 SHARLA DOWNS MD, Ot Z79.4 TYPESETTER APPRENTICE (CURRENT) USE OF INSULIN 03/28/2019 SHARLA DOWNS MD, Ot Z79.51 TYPESETTER APPRENTICE (CURRENT) USE OF INHALED STERO 03/28/2019 SHARLA DOWNS MD, Ot Z79.82 TYPESETTER APPRENTICE (CURRENT) USE OF ASPIRIN 03/28/2019 SHARLA DOWNS MD, Ot Z82.49 FAMILY HX OF ISCHEM HEART DIS AND OTH DI 03/28/2019 SHARLA DOWNS MD, Ot Z87.440 PERSONAL HISTORY OF URINARY (TRACT) INFE 03/28/2019 SHARLA DOWNS MD, Ot Z88.0 ALLERGY STATUS TO PENICILLIN 03/28/2019 SHARLA DOWNS MD, Ot Z88.5 ALLERGY STATUS TO NARCOTIC AGENT STATUS 03/28/2019 SHARLA DOWNS MD, Ot Z88.8 ALLERGY STATUS TO OT DRUG/MEDS/BIOL SUB 03/28/2019 SHARLA DOWNS MD, Ot Z90.49 ACQUIRED ABSENCE OF OTHER SPECIFIED PART 03/28/2019 SHARLA DOWNS MD, Ot Z95.5 PRESENCE OF CORONARY ANGIOPLASTY IMPLANT 03/28/2019 SHARLA DOWNS MD, Ot Z99.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 03/30/2019 NORA ESCAMILLA Ot D50.9 IRON DEFICIENCY ANEMIA, UNSPECIFIED 03/30/2019 NORA ESCAMILLA Ot E03.9 HYPOTHYROIDISM, UNSPECIFIED 03/30/2019 NORA ESCAMILLA Ot 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 W DIABETIC PATIENT SERVICE REPRESENTATIVE 03/30/2019 NORA ESCAMILLA Ot G47.33 OBSTRUCTIVE SLEEP APNEA (ADULT) (PEDIATR 03/30/2019 NORA ESCAMILLA Ot I12.9 HYPERTENSIVE CHRONIC KIDNEY DISEASE W ST 03/30/2019 NORA ESCAMILLA Ot I25.10 ATHSCL HEART DISEASE OF [place] CORONARY 03/30/2019 FRANCINE, NORA Anna Ot J45.909 UNSPECIFIED ASTHMA, UNCOMPLICATED 03/30/2019 FRANCINENORA Ot K25.9 GASTRIC ULCER, UNSP ACUTE OR CHRONIC, 03/30/2019 FRANCINENORA Ot K29.50 UNSPECIFIED CHRONIC GASTRITIS WITHOUT BL 03/30/2019 NORA ESCAMILLA Ot N18.3 CHRONIC KIDNEY DISEASE, STAGE 3 (MODERAT 03/30/2019 NORA ESCAMILLA Ot Z79.4 TYPESETTER APPRENTICE (CURRENT) USE OF INSULIN 03/30/2019 NORA ESCAMILLA Ot Z79.82 TYPESETTER APPRENTICE (CURRENT) USE OF ASPIRIN 04/11/2019 TO GRAY [...] Ot I25. 10 ATHSCL HEART DISEASE OF [place] CORONARY 04/11/2019 TO GRAY MD Ot M79. 18 MYALGIA, OTHER SITE 04/11/2019 TO GRAY MD Ot R51 HEADACHE 04/11/2019 TO GRAY MD Ot Z79. 4 TYPESETTER APPRENTICE (CURRENT) USE OF INSULIN 04/11/2019 TO GRAY MD Ot Z79. 51 TYPESETTER APPRENTICE (CURRENT) USE OF INHALED STERO 04/11/2019 TO GRAY MD Ot Z79. 82 ALF (CURRENT) USE OF ASPIRIN 04/11/2019 TO GRAY [...] OF CORONARY ANGIOPLASTY IMPLANT 04/11/2019 TO GRAY MD, Ot Z99. 81 DEPENDENCE ON SUPPLEMENTAL OXYGEN 04/15/2019 NORA ESCAMILLA Ot D50.9 IRON DEFICIENCY ANEMIA, UNSPECIFIED 04/15/2019 NORA ESCAMILLA Ot E03.9 HYPOTHYROIDISM, UNSPECIFIED 04/15/2019 NORA ESCAMILLA Ot 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 W DIABETIC PATIENT SERVICE REPRESENTATIVE 04/15/2019 NORA ESCAMILLA Ot G47.33 OBSTRUCTIVE SLEEP APNEA (ADULT) (PEDIATR 04/15/2019 NORA ESCAMILLA Ot I12.9 HYPERTENSIVE CHRONIC KIDNEY DISEASE W ST 04/15/2019 NORA ESCAMILLA Ot I25.10 ATHSCL HEART DISEASE OF [place] CORONARY 04/15/2019 NORA ESCAMILLA Ot J45.909 UNSPECIFIED ASTHMA, UNCOMPLICATED 04/15/2019 NORA ESCAMILLA Ot K25.9 GASTRIC ULCER, UNSP ACUTE OR CHRONIC, 04/15/2019 NORA ESCAMILLA Ot K29.50 UNSPECIFIED CHRONIC GASTRITIS WITHOUT BL 04/15/2019 NORA ESCAMILLA Ot N18.3 CHRONIC KIDNEY DISEASE, STAGE 3 (MODERAT 04/15/2019 NORA ESCAMILLA Ot Z79.4 TYPESETTER APPRENTICE (CURRENT) USE OF INSULIN 04/15/2019 NORA ESCAMILLA Ot Z79.82 TYPESETTER APPRENTICE (CURRENT) USE OF ASPIRIN 04/17/2019 TO GRAY MD Ot A08. 4 VIRAL INTESTINAL INFECTION, UNSPECIFIED 04/17/2019 TO GRAY MD Ot E03. 9 HYPOTHYROIDISM, UNSPECIFIED 04/17/2019 TO GRAY MD Ot E11. 9 TYPE 2 DIABETES MELLITUS WITHOUT COMPLIC 04/17/2019 TO GRAY MD Ot E78. 00 PURE HYPERCHOLESTEROLEMIA, UNSPECIFIED 04/17/2019 TO GRAY MD, Ot F32. 9 MAJOR DEPRESSIVE DISORDER, SINGLE EPISOD 04/17/2019 TO GRAY MD, Ot F41. 9 ANXIETY DISORDER, UNSPECIFIED 04/17/2019 TO GRAY MD, Ot G47. 30 SLEEP APNEA, UNSPECIFIED 04/17/2019 TO GRAY MD Ot I10 ESSENTIAL (PRIMARY) HYPERTENSION 04/17/2019 TO GRAY MD, Ot I25. 10 ATHSCL HEART DISEASE OF [place] CORONARY 04/17/2019 TO GRAY MD, Ot M79. 18 MYALGIA, OTHER SITE 04/17/2019 TO GRAY MD Ot R51 HEADACHE 04/17/2019 TO GRAY MD, Ot Z79. 4 TYPESETTER APPRENTICE (CURRENT) USE OF INSULIN 04/17/2019 TO GRAY MD, Ot Z79. 51 ALF (CURRENT) USE OF INHALED STERO 04/17/2019 TO GRAY MD, Ot Z79. 82 ALF (CURRENT) USE OF ASPIRIN 04/17/2019 TO GRAY MD, Ot Z82. 49 FAMILY HX OF ISCHEM HEART DIS AND OTH DI 04/17/2019 TO GRAY MD, Ot Z88. 0 ALLERGY STATUS TO PENICILLIN 04/17/2019 TO GRAY MD, Ot Z88. 5 ALLERGY STATUS TO NARCOTIC AGENT STATUS 04/17/2019 TO GRAY MD, Ot Z88. 8 ALLERGY STATUS TO OT DRUG/MEDS/BIOL SUB 04/17/2019 TO GRAY MD, Ot Z95. 5 PRESENCE OF CORONARY ANGIOPLASTY IMPLANT 04/17/2019 TO GRAY MD Ot Z99. 81 DEPENDENCE ON SUPPLEMENTAL OXYGEN 05/03/2019 NORA ESCAMILLA Ot D50.9 IRON DEFICIENCY ANEMIA, UNSPECIFIED 05/03/2019 NORA ESCAMILLA Ot E03.9 HYPOTHYROIDISM, UNSPECIFIED 05/03/2019 NORA ESCAMILLA Ot 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 W DIABETIC PATIENT SERVICE REPRESENTATIVE 05/03/2019 NORA ESCAMILLA Ot G47.33 OBSTRUCTIVE SLEEP APNEA (ADULT) (PEDIATR 05/03/2019 NORA ESCAMILLA Ot I12.9 HYPERTENSIVE CHRONIC KIDNEY DISEASE W ST 05/03/2019 NORA ESCAMILLA Ot I25.10 ATHSCL HEART DISEASE OF [place] CORONARY 05/03/2019 FRANCINE, NORA Anna Ot J45.909 UNSPECIFIED ASTHMA, UNCOMPLICATED 05/03/2019 FRANCINE, NORA Anna Ot K25.9 GASTRIC ULCER, UNSP ACUTE OR CHRONIC, 05/03/2019 FRANCINENORA Ot K29.50 UNSPECIFIED CHRONIC GASTRITIS WITHOUT BL 05/03/2019 NORA ESCAMILLA Ot N18.3 CHRONIC KIDNEY DISEASE, STAGE 3 (MODERAT 05/03/2019 NORA ESCAMILLA Ot Z79.4 ALF (CURRENT) USE OF INSULIN 05/03/2019 NORA ESCAMILLA Ot Z79.82 TYPESETTER APPRENTICE (CURRENT) USE OF ASPIRIN 05/14/2019 SHARLA DOWNS MD Ot E03.9 HYPOTHYROIDISM, UNSPECIFIED 05/14/2019 SHARLA DOWNS MD Ot E11.9 TYPE 2 DIABETES MELLITUS WITHOUT COMPLIC 05/14/2019 SHARLA DOWNS MD Ot E78.00 PURE HYPERCHOLESTEROLEMIA, UNSPECIFIED 05/14/2019 SHARLA DOWNS MD Ot F32.9 MAJOR DEPRESSIVE DISORDER, SINGLE EPISOD 05/14/2019 SHARLA DOWNS MD, Ot F41.9 ANXIETY DISORDER, UNSPECIFIED 05/14/2019 SHARLA DOWNS MD Ot G47.30 SLEEP APNEA, UNSPECIFIED 05/14/2019 SHARLA DOWNS MD Ot I10 ESSENTIAL (PRIMARY) HYPERTENSION 05/14/2019 SHARLA DOWNS MD, Ot I25.10 ATHSCL HEART DISEASE OF [place] CORONARY 05/14/2019 SHARLA DOWNS MD Ot J06.9 ACUTE UPPER RESPIRATORY INFECTION, UNSPE 05/14/2019 SHARLA DOWNS MD Ot J44.9 CHRONIC OBSTRUCTIVE PULMONARY DISEASE, U 05/14/2019 SHARLA DOWNS MD Ot R06.02 SHORTNESS OF BREATH 05/14/2019 SHARLA DOWNS MD Ot R59.9 ENLARGED LYMPH NODES, UNSPECIFIED 05/14/2019 SHARLA DOWNS MD Ot Z79.4 TYPESETTER APPRENTICE (CURRENT) USE OF INSULIN 05/14/2019 SHARLA DOWNS MD Ot Z79.51 TYPESETTER APPRENTICE (CURRENT) USE OF INHALED STERO 05/14/2019 SHARLA DOWNS MD Ot Z79.82 TYPESETTER APPRENTICE (CURRENT) USE OF ASPIRIN 05/14/2019 SHARLA DOWNS [...] OF CORONARY ANGIOPLASTY IMPLANT 05/14/2019 SHARLA DOWNS MD Ot Z99.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 0 URIN TRACT INFECTION NOS 05/15/2019 MARIPOSA SANCHEZ APRN Ot J45.909 UNSPECIFIED ASTHMA, UNCOMPLICATED 05/15/2019 MARIPOSA SANCHEZ APRN Ot J98.4 OTHER DISORDERS OF LUNG 05/15/2019 MARIPOSA SANCHEZ APRN Ot R06.02 SHORTNESS OF BREATH 05/15/2019 KIYA HERMAN MD R Ot D64. 9 ANEMIA, UNSPECIFIED 05/15/2019 MARIPOSA SANCHEZ APRN Ot J98.4 OTHER DISORDERS OF LUNG 05/15/2019 MARIPOSA SANCHEZ APRN Ot R06.02 SHORTNESS OF BREATH 05/15/2019 MARIPOSA SANCHEZ APRN Ot R09.02 HYPOXEMIA 05/15/2019 SHARLA DOWNS MD Ot E03.9 HYPOTHYROIDISM, UNSPECIFIED 05/15/2019 SHARLA DOWNS MD Ot E11.9 TYPE 2 DIABETES MELLITUS WITHOUT COMPLIC 05/15/2019 SHARLA DOWNS MD Ot E78.00 PURE HYPERCHOLESTEROLEMIA, UNSPECIFIED 05/15/2019 SHARLA DOWNS MD Ot F32.9 MAJOR DEPRESSIVE DISORDER, SINGLE EPISOD 05/15/2019 SHARLA DOWNS MD Ot F41.9 ANXIETY DISORDER, UNSPECIFIED 05/15/2019 SHARLA DOWNS MD Ot G47.30 SLEEP APNEA, UNSPECIFIED 05/15/2019 SHARLA DOWNS MD Ot I10 ESSENTIAL (PRIMARY) HYPERTENSION 05/15/2019 SHARLA DOWNS MD, Ot I25.10 ATHSCL HEART DISEASE OF [place] CORONARY 05/15/2019 SHARLA DOWNS MD, Ot J06.9 ACUTE UPPER RESPIRATORY INFECTION, UNSPE 05/15/2019 SHARLA DOWNS MD, Ot J44.9 CHRONIC OBSTRUCTIVE PULMONARY DISEASE, U 05/15/2019 SHARLA DOWNS MD, Ot R05 COUGH 05/15/2019 SHARLA DOWNS MD, Ot Z79.4 ALF (CURRENT) USE OF INSULIN 05/15/2019 SHARLA DOWNS MD, Ot Z79.51 ALF (CURRENT) USE OF INHALED STERO 05/15/2019 SHARLA DOWNS MD, Ot Z79.82 TYPESETTER APPRENTICE (CURRENT) USE OF ASPIRIN 05/15/2019 SHARLA DOWNS [...] 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 W DIABETIC PATIENT SERVICE REPRESENTATIVE 06/12/2019 NORA ESCAMILLA Ot G47.33 OBSTRUCTIVE SLEEP APNEA (ADULT) (PEDIATR 06/12/2019 NORA ESCAMILLA Ot I12.9 HYPERTENSIVE CHRONIC KIDNEY DISEASE W ST 06/12/2019 NORA ESCAMILLA Ot I25.10 ATHSCL HEART DISEASE OF [place] CORONARY 06/12/2019 NORA ESCAMILLA Ot J45.909 UNSPECIFIED ASTHMA, UNCOMPLICATED 06/12/2019 NORA ESCAMILLA Ot K25.9 GASTRIC ULCER, UNSP ACUTE OR CHRONIC, 06/12/2019 NORA ESCAMILLA Ot K29.50 UNSPECIFIED CHRONIC GASTRITIS WITHOUT BL 06/12/2019 NORA ESCAMILLA N Ot N18.3 CHRONIC KIDNEY DISEASE, STAGE 3 (MODERAT 06/12/2019 NORA ESCAMILLA N Ot Z79.4 ALF (CURRENT) USE OF INSULIN 06/12/2019 NORA ESCAMILLA N Ot Z79.82 TYPESETTER APPRENTICE (CURRENT) USE OF ASPIRIN 06/14/2019 NORA ESCAMILLA N Ot D50.9 IRON DEFICIENCY ANEMIA, UNSPECIFIED 06/14/2019 NORA ESCAMILLA N Ot E03.9 HYPOTHYROIDISM, UNSPECIFIED 06/14/2019 NORA ESCAMILLA N Ot 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 W DIABETIC PATIENT SERVICE REPRESENTATIVE 06/14/2019 NORA ESCAMILLA N Ot G47.33 OBSTRUCTIVE SLEEP APNEA (ADULT) (PEDIATR 06/14/2019 NORA ESCAMILLA N Ot I12.9 HYPERTENSIVE CHRONIC KIDNEY DISEASE W ST 06/14/2019 NORA ESCAMILLA N Ot I25.10 ATHSCL HEART DISEASE OF [place] CORONARY 06/14/2019 NORA ESCAMILLA Ot J45.909 UNSPECIFIED ASTHMA, UNCOMPLICATED 06/14/2019 NORA ESCAMILLA N Ot K25.9 GASTRIC ULCER, UNSP ACUTE OR CHRONIC, 06/14/2019 NORA ESCAMILLA N Ot K29.50 UNSPECIFIED CHRONIC GASTRITIS WITHOUT BL 06/14/2019 NORA ESCAMILLA N Ot N18.3 CHRONIC KIDNEY DISEASE, STAGE 3 (MODERAT 06/14/2019 NORA ESCAMILLA N Ot Z79.4 TYPESETTER APPRENTICE (CURRENT) USE OF INSULIN 06/14/2019 NORA ESCAMILLA N Ot Z79.82 ALF (CURRENT) USE OF ASPIRIN 08/01/2019 Fredrick Wallis 786.52 PAINFUL RESPIRATION 08/01/2019 Fredrick Wallis R07.81 PLEURODYNIA 09/06/2019 BATSHEVA LARKIN, KIYA R Ot 599. 0 URIN TRACT INFECTION NOS 09/06/2019 MARIPOSA SANCHEZ SET UP OPERATOR Ot J45.909 UNSPECIFIED ASTHMA, UNCOMPLICATED 09/06/2019 MARIPOSA SANCHEZ SET UP OPERATOR Ot J98.4 OTHER DISORDERS OF LUNG 09/06/2019 MARIPOSA SANCHEZ SET UP OPERATOR Ot R06.02 SHORTNESS OF BREATH 09/06/2019 BATSHEVA LARKIN, KIYA R Ot D64. 9 ANEMIA, UNSPECIFIED 09/06/2019 MARIPOSA SANCHEZ APRN Ot J98.4 OTHER DISORDERS OF LUNG 09/06/2019 MARIPOSA SANCHEZ APRN Ot R06.02 SHORTNESS OF BREATH 09/06/2019 MARIPOSA SANCHEZ APRN Ot R09.02 HYPOXEMIA 09/06/2019 Ot D50.9 IRON DEFICIENCY ANEMIA, UNSPECIFIED 09/06/2019 Ot E03.9 HYPO THYROIDISM, UNSPECIFIED 09/06/2019 Ot E11.22 TYP E 2 DIABETES MELLITUS W DIABETIC PATIENT SERVICE REPRESENTATIVE 09/06/2019 Ot G47.33 OBS TRUCTIVE SLEEP APNEA (ADULT) (PEDIATR 09/06/2019 Ot I12.9 HYPE RTENSIVE CHRONIC KIDNEY DISEASE W ST 09/06/2019 Ot I25.10 ATH SCL HEART DISEASE OF [place] CORONARY 09/06/2019 Ot J45.909 UN SPECIFIED ASTHMA, UNCOMPLICATED 09/06/2019 Ot K25.9 CARLOTTA SERGIO ULCER, UNSP ACUTE OR CHRONIC, 09/06/2019 Ot K29.50 UNS PECIFIED CHRONIC GASTRITIS WITHOUT BL 09/06/2019 Ot N18.3 PATIENT SERVICE REPRESENTATIVE JOAQUINA KIDNEY DISEASE, STAGE 3 (MODERAT 09/06/2019 Ot Z79.4 TYPESETTER APPRENTICE (CURRENT) USE OF INSULIN 09/06/2019 Ot Z79.82 TIFFANI G TERM (CURRENT) USE OF ASPIRIN 09/13/2019 BATSHEVA LARKIN, KIYA R Ot 599. 0 URIN TRACT INFECTION NOS 09/13/2019 MARIPOSA SANCHEZ APRN Ot J45.909 UNSPECIFIED ASTHMA, UNCOMPLICATED 09/13/2019 MARIPOSA SANCHEZ APRN Ot J98.4 OTHER DISORDERS OF LUNG 09/13/2019 MARIPOSA SANCHEZ APRN Ot R06.02 SHORTNESS OF BREATH 09/13/2019 BATSHEVA LARKIN, KIYA R Ot D64. 9 ANEMIA, UNSPECIFIED 09/13/2019 MARIPOSA SANCHEZ APRN Ot J98.4 OTHER DISORDERS OF LUNG 09/13/2019 MARIPOSA SANCHEZ APRN Ot R06.02 SHORTNESS OF BREATH 09/13/2019 MARIPOSA SANCHEZ APRN Ot R09.02 HYPOXEMIA 09/13/2019 Ot D50.9 IRON DEFICIENCY ANEMIA, UNSPECIFIED 09/13/2019 Ot E03.9 HYPO THYROIDISM, UNSPECIFIED 09/13/2019 Ot E11.22 TYP E 2 DIABETES MELLITUS W DIABETIC PATIENT SERVICE REPRESENTATIVE 09/13/2019 Ot G47.33 OBS TRUCTIVE SLEEP APNEA (ADULT) (PEDIATR 09/13/2019 Ot I12.9 HYPE RTENSIVE CHRONIC KIDNEY DISEASE W ST 09/13/2019 Ot I25.10 ATH SCL HEART DISEASE OF [place] CORONARY 09/13/2019 Ot J45.909 UN SPECIFIED ASTHMA, UNCOMPLICATED 09/13/2019 Ot K25.9 CARLOTTA SERGIO ULCER, UNSP ACUTE OR CHRONIC, 09/13/2019 Ot K29.50 UNS PECIFIED CHRONIC GASTRITIS WITHOUT BL 09/13/2019 Ot N18.3 PATIENT SERVICE REPRESENTATIVE JOAQUINA KIDNEY DISEASE, STAGE 3 (MODERAT 09/13/2019 Ot Z79.4 ALF (CURRENT) USE OF INSULIN 09/13/2019 Ot Z79.82 TIFFANI G TERM (CURRENT) USE OF ASPIRIN 09/13/2019 MARILY PANDEY DO Ot E03. 9 HYPOTHYROIDISM, UNSPECIFIED 09/13/2019 MARILY PANDEY DO Ot E11. 40 TYPE 2 DIABETES MELLITUS WITH DIABETIC N 09/13/2019 MARILY PANDEY DO Ot E53. 9 VITAMIN B DEFICIENCY, UNSPECIFIED 09/13/2019 MARILY PANDEY DO Ot E66. 01 MORBID (SEVERE) OBESITY DUE TO EXCESS CA 09/13/2019 MARILY PANDEY DO Ot E78. 2 MIXED HYPERLIPIDEMIA 09/13/2019 MARILY PANDEY DO Ot F32. 9 MAJOR DEPRESSIVE DISORDER, SINGLE EPISOD 09/13/2019 MARILY PANDEY DO Ot G47. 33 OBSTRUCTIVE SLEEP APNEA (ADULT) (PEDIATR 09/13/2019 MARILY PANDEY DO Ot I25. 10 ATHSCL HEART DISEASE OF [place] CORONARY 09/13/2019 MARILY PANDEY DO Ot J45.909 UNSPECIFIED ASTHMA, UNCOMPLICATED 09/13/2019 MARILY PANDEY DO Ot K26. 9 DUODENAL ULCER, UNSP ACUTE OR CHRONIC 09/13/2019 MARILY PANDEY DO Ot K29. 50 UNSPECIFIED CHRONIC GASTRITIS WITHOUT BL 09/13/2019 MARILY PANDEY DO Ot K44. 9 DIAPHRAGMATIC HERNIA WITHOUT OBSTRUCTION 09/13/2019 MARILY PANDEY DO Ot R09. 02 HYPOXEMIA 09/13/2019 MARILY PANDEY DO Ot Z68. 39 BODY MASS INDEX (BMI) 39.0-39.9, ADULT 09/13/2019 MARILY PANDEY DO Ot Z79. 82 TYPESETTER APPRENTICE (CURRENT) USE OF ASPIRIN 09/13/2019 MARIYL PANDEY DO Ot Z79. 84 ALF (CURRENT) USE OF ORAL HYPOGLYC 09/13/2019 MARILY PANDEY DO Ot Z79.890 HORMONE REPLACEMENT THERAPY 09/13/2019 MARILY PANDEY DO Ot Z79.899 OTHER ALF (CURRENT) DRUG THERAPY 09/13/2019 MARILY PANDEY DO Ot Z88. 0 ALLERGY STATUS TO PENICILLIN 09/13/2019 PANDEY MARILY RUCKER Ot Z88. 5 ALLERGY STATUS TO NARCOTIC AGENT STATUS 09/13/2019 MARILY PANDEY DO Ot Z88. 8 ALLERGY STATUS TO OTH DRUG/MEDS/BIOL SUB 09/13/2019 MARILY PANDEY DO Ot Z95. 5 PRESENCE OF CORONARY ANGIOPLASTY IMPLANT 09/13/2019 MARILY PANDEY DO Ot Z96.653 PRESENCE OF ARTIFICIAL KNEE JOINT, BILAT 09/13/2019 MARILY PANDEY DO Ot Z99. 81 DEPENDENCE ON SUPPLEMENTAL OXYGEN 09/20/2019 MARILY PANDEY DO Ot E03. 9 HYPOTHYROIDISM, UNSPECIFIED 09/20/2019 MARILY PANDEY DO Ot E11. 40 TYPE 2 DIABETES MELLITUS WITH DIABETIC N 09/20/2019 MARILY PANDEY DO Ot E53. 9 VITAMIN B DEFICIENCY, UNSPECIFIED 09/20/2019 PANDEY MARILY RUCKER Ot E66. 01 MORBID (SEVERE) OBESITY DUE TO EXCESS CA 09/20/2019 MARILY PANDEY DO Ot E78. 2 MIXED HYPERLIPIDEMIA 09/20/2019 MARILY PANDEY DO Ot F32. 9 MAJOR DEPRESSIVE DISORDER, SINGLE EPISOD 09/20/2019 MARILY PANDEY DO Ot G47. 33 OBSTRUCTIVE SLEEP APNEA (ADULT) (PEDIATR 09/20/2019 MARILY PANDEY DO Ot I25. 10 ATHSCL HEART DISEASE OF [place] CORONARY 09/20/2019 MARILY PANDEY DO Ot J45.909 UNSPECIFIED ASTHMA, UNCOMPLICATED 09/20/2019 MARILY PANDEY DO Ot K26. 9 DUODENAL ULCER, UNSP ACUTE OR CHRONIC 09/20/2019 MARILY PANDEY DO Ot K29. 50 UNSPECIFIED CHRONIC GASTRITIS WITHOUT BL [facility] 9 DIAPHRAGMATIC HERNIA WITHOUT OBSTRUCTION 09/20/2019 [facility] R09. 02 HYPOXEMIA 09/20/2019 [facility] Z68. 39 BODY MASS INDEX (BMI) 39.0-39.9, ADULT 09/20/2019 [facility] Z79. 82 ALF (CURRENT) USE OF ASPIRIN 09/20/2019 [facility] Z79. 84 ALF (CURRENT) USE OF ORAL HYPOGLYC 09/20/2019 [facility] Z79.890 HORMONE REPLACEMENT THERAPY 09/20/2019 [facility] Z79.899 OTHER ALF (CURRENT) DRUG THERAPY 09/20/2019 [facility] Z88. 0 ALLERGY STATUS TO PENICILLIN 09/20/2019 [facility]. 5 ALLERGY STATUS TO NARCOTIC AGENT STATUS 09/20/2019 [facility]. 8 ALLERGY STATUS TO OTH DRUG/MEDS/BIOL SUB 09/20/2019 [facility] Z95. 5 PRESENCE OF CORONARY ANGIOPLASTY IMPLANT 09/20/2019 [facility] Z96.653 PRESENCE OF ARTIFICIAL KNEE JOINT, BILAT 09/20/2019 [facility] Z99. 81 DEPENDENCE ON SUPPLEMENTAL [...] APRN Ot I25.10 ATHSCL HEART DISEASE OF [place] CORONARY 10/10/2019 MAGDY ZIEGLER APRN Ot I42 [...] 10/10/2019 MAGDY ZIEGLER APRN Ot Z79 .4 ALF (CURRENT) USE OF INSULIN 10/10/2019 MAGDY ZIEGLER APRN Ot Z79.51 TYPESETTER APPRENTICE (CURRENT) USE OF INHALED STERO 10/10/2019 MAGDY ZIEGLER APRN Ot Z79.82 TYPESETTER APPRENTICE (CURRENT) USE OF ASPIRIN 10/10/2019 MAGDY ZIEGLER [...] Ot I25.1 0 ATHSCL HEART DISEASE OF [place] CORONARY 10/12/2019 WHEELER DO, GAIL L Ot [...] 10/12/2019 WHEELER DO, GAIL L Ot Z79.4 ALF (CURRENT) USE OF INSULIN 10/12/2019 WHEELER DO, GAIL L Ot Z95.5 PRESENCE OF CORONARY ANGIOPLASTY IMPLANT 10/18/2019 MAGDY ZIEGLER APRN Ot E03 .9 HYPOTHYROIDISM, UNSPECIFIED 10/18/2019 MAGDY ZIEGLER APRN Ot E11 .9 TYPE 2 DIABETES MELLITUS WITHOUT COMPLIC 10/18/2019 MAGDY ZIEGLER APRN Ot E78.00 PURE HYPERCHOLESTEROLEMIA, UNSPECIFIED 10/18/2019 MAGDY ZIEGLER APRN Ot F32 .9 MAJOR DEPRESSIVE DISORDER, SINGLE EPISOD 10/18/2019 MAGDY ZIEGLER APRN Ot F41 .9 ANXIETY DISORDER, UNSPECIFIED 10/18/2019 MAGDY ZIEGLER APRN Ot I10 ESSENTIAL (PRIMARY) HYPERTENSION 10/18/2019 MAGDY ZIEGLER APRN Ot I25.10 ATHSCL HEART DISEASE OF [place] CORONARY 10/18/2019 MAGDY ZIEGLER APRN Ot J44 .9 CHRONIC OBSTRUCTIVE PULMONARY DISEASE, U 10/18/2019 MAGDY ZIEGLER APRN Ot K21 .9 GASTRO-ESOPHAGEAL REFLUX DISEASE WITHOUT 10/18/2019 MAGDY ZIEGLER APRN Ot K58 .9 IRRITABLE BOWEL SYNDROME WITHOUT DIARRHE 10/18/2019 MAGDY ZIEGLER APRN Ot R10.84 GENERALIZED ABDOMINAL PAIN 10/18/2019 MAGDY ZIEGLER APRN Ot Z79 .4 TYPESETTER APPRENTICE (CURRENT) USE OF INSULIN 10/18/2019 MAGDY ZIEGLER APRN Ot Z79.51 TYPESETTER APPRENTICE (CURRENT) USE OF INHALED STERO 10/18/2019 MAGDY ZIEGLER APRN Ot Z79.82 ALF (CURRENT) USE OF ASPIRIN 10/18/2019 MAGDY ZIEGLER APRN Ot Z79.890 HORMONE REPLACEMENT THERAPY 10/18/2019 MAGDY ZIEGLER APRN Ot Z88 .0 ALLERGY STATUS TO PENICILLIN 10/18/2019 MAGDY ZIEGLER APRN Ot Z88 .5 ALLERGY STATUS TO NARCOTIC AGENT STATUS 10/18/2019 MAGDY ZIEGLER APRN Ot Z88 .8 ALLERGY STATUS TO OTH DRUG/MEDS/BIOL SUB 10/18/2019 MAGDY ZIEGLER APRN Ot Z95 .5 PRESENCE OF CORONARY ANGIOPLASTY IMPLANT Procedures There [...] culture - 12/26/15 07:02 Bacterial urine culture [id number] NRG COLONY COUNT 10,000/ML - 100,000/ML NRG [...] test by minimum inhibitory co ncentration 2 [facility] Automated blood complete blood count (he mogram) [...] culture - 05/07/16 08:35 Bacterial urine culture [id number] NRG COLONY COUNT 10,000/ML - 100,000/ML NRG [...] culture - 05/13/16 07:13 Bacterial urine culture [id number] NRG COLONY COUNT 10,000/ML - 100,000/ML NRG [...] culture - 12/31/18 18:53 Bacterial urine culture [id number] NRG COLONY COUNT >100,000/ML NRG FTX;REPORTABLE SUSCEPTIBILITY [...] INFLUENZA A AND B ANTIGENS BY IA [facility] Complete blood count (CBC) with automate d [...] Negative Urine-Blood Negative Negative Urine-Color Yellow Colorless-[place] Urine-Epithelial Cells 10-20/HPF Urine-Glucose Negative Negative Urine-Ketones Negative Negative Urine-Leukocytes Negative Negative Urine-Mucus Negative Urine-Nitrite Negative Negative Urine-Other Urine Saved if Culture Need ed (48hrs from time of collection) Urine-pH 6.0 5-8.5 Urine-Protein Negative Negative Urine-RBC 0-2/HPF Urine-Specific Protem 1.020 1.000-1 .030 Urine-WBC Negative Urobilinogen 0.2 [...] sediment by light microscopy FEW NRG Complete blood count (CBC) with automate d white blood cell (WBC) differential - 10/16/19 09:40 Blood leukocytes automated count (number/volume) 10.1 10*3/uL 4.3-11.0 Blood erythrocytes automated count (number/volume) 3.89 10*6/uL 4.35-5.85 Venous blood hemoglobin measurement (mass/volume) 11.9 g/dL 11.5-16.0 Blood hematocrit (volume fraction) 37 % 35-52 Automated erythrocyte mean corpuscular volume 95 [ foz_us] 80-99 Automated erythrocyte mean corpuscular h emoglobin (mass per erythrocyte) 31 pg 25-34 Automated erythrocyte mean corpuscular h emoglobin concentration measurement (mass/volume) 32 g/dL 32-36 Automated erythrocyte distribution width ratio 13. 0 % 10.0- 14.5 Automated blood platelet count (count/volume) 296 10*3/uL 130-400 Automated blood platelet mean volume measurement 9.8 [foz_us] 7.4-10.4 Automated blood neutrophils/100 leukocytes 81 % 42-75 Automated blood lymphocytes/100 leukocytes 12 % 12-44 Blood monocytes/100 leukocytes 5 % [...] 0.1 10*3/uL 0.0-0.1 Comprehensive metabolic panel - 10/16/19 09:40 Serum or plasma sodium measurement (moles/volume) 139 mmol/L 135-145 Serum or plasma potassium measurement (moles/volume) 4.8 mmol/L 3.6-5.0 Serum or plasma chloride measurement (moles/volume) 105 mmol/L 98-107 Carbon dioxide 23 mmol/L 21-32 Serum or plasma anion gap determination (moles/volume) 11 mmol/L 5-14 Serum or plasma urea nitrogen measurement (mass/volume ) 11 mg/dL 7-18 Serum or plasma creatinine measurement (mass/volume) 1.00 mg/dL 0.60-1.30 Serum or plasma urea nitrogen/creatinine mass ratio 11 NRG Serum or plasma creatinine measurement w ith calculation of estimated glomerular filtration rate 56 NRG Serum or plasma glucose measurement (mass/volume) 171 mg/dL 70-105 Serum or plasma calcium measurement (mass/volume) 8.6 mg/dL 8.5-10.1 Serum or plasma total bilirubin measurement (mass/volu me) 0.4 mg/dL 0.1-1.0 Serum or plasma alkaline phosphatase shabana surement (enzymatic activity/volume) 129 U/L 40-136 Serum or plasma aspartate aminotransfera se measurement (enzymatic activity/volume) 29 U/L 5-34 Serum or plasma alanine aminotransferase measurement (enzymatic activity/volume) 22 U/L 0-55 Serum or plasma protein measurement (mass/volume) 7.3 g/dL 6.4-8.2 Serum or plasma albumin measurement (mass/volume) 3.6 g/dL 3.2-4.5 CALCIUM CORRECTED 8.9 mg/dL 8.5-10.1 Lipase - 10/16/19 09:40 Lipase 33 U/L 8-78 Capillary blood glucose measurement by g lucometer (mass/volume) - 10/16/19 11:39 Capillary blood glucose measurement by glucometer (mas s/volume) 163 mg/dL 70-110 Complete urinalysis with reflex to cultu re - 10/16/19 12:15 Urine color determination YELLOW NRG Urine clarity [...] Status Pt. Type Provider Facility Loc./Unit Complaint [id number] 03/26/2019 03:05:00 Document Registration [id number] 03/29/2018 16:15:00 Document Registration [id number] 08/01/2019 08:00:00 08/01/2019 10:03 :00 [id number]/25/2018 11:43:00 03/25/2018 23:59: 00 DIS Outpatient Pantera Pham [id number] 03/25/2018 10:42:00 03/25/2018 23:59: 00 DIS Outpatient Pantera Pham [id number] 01/02/2017 09:06:00 01/02/2017 23:59: 00 DIS Outpatient DEMETRA MOLINA [id number] 08/01/2019 08:28:30 Document Registration [id number] 10/16/2019 09:24:00 13:19:00 DIS Outpatient MAGDY ZIEGLER APRN [facility] ER ABD PAIN / SOA / WEAKNE SS / CHILLS [id number] 10/10/2019 10:24:00 13:11:00 DIS Outpatient GAIL WHEELER DO [facility] ER PAIN ALL OVER [id number] 10/07/2019 14:58:00 16:02:00 DIS Outpatient MAGDY ZIEGLER APRN [facility] ER POSS BLOOD CLOT IN L LE G [id number] 09/13/2019 07:35:00 09:35:00 DIS Outpatient MARILY PANDEY DO [facility] ENDO EPIGASTRIC ABD PAIN/KOLBY CK TARRY STOOLS/HX PUD [id number] 09/08/2019 05:50:00 15:09:00 DIS Outpatient MARILY PANDEY DO [facility] PREOP EGD [id number] 03/17/2019 08:57:00 00:01:00 DIS Outpatient NORA ESCAMILLA [facility] ONC [id number] 05/15/2019 05:49:00 07:56:00 DIS Emergency YARELI LARKIN, SHARLA Panchal [facility] ER UPPER RESP INFE CTION [id number] 05/14/2019 14:49:00 16:32:00 DIS Emergency YARELI LARKIN, SHARLA Panchal [facility] ER SOA [id number] 04/11/2019 07:10:00 15:39:00 DIS Emergency ISAAC LARKIN, TO Alejandra [facility] ER FLU;HEADACHE [id number] 03/22/2019 07:47:00 09:58:00 DIS Emergency YARELI LARKIN, SHARLA Panchal [facility] ER HEADACHE [id number] 02/28/2019 13:40:00 17:23:00 DIS Emergency MAGDY ZIEGLER SET UP OPERATOR [facility] ER R SIDE PAIN [id number] 12/31/2018 16:40:00 20:25:00 DIS Emergency IVORY LARKIN, DAVIN Maciel [facility] ER ABD PAIN,DIARRH EA [id number] 09/24/2018 07:56:00 00:01:00 DIS Outpatient NORA ESCAMILLA [facility] ONC [id number] 12/06/2018 09:15:00 23:59:59 CLS Outpatient LOUISE LAND SET UP OPERATOR [facility] RAD RENAL/URETERAL COLIC,ACUTE CYSTITIS W/O HEMATURIA [id number] 11/05/2018 16:10:00 17:58:00 DIS Emergency MAGDY ZIEGLER SET UP OPERATOR [facility] ER SOB [id number] 04/26/2018 08:24:00 00:01:00 DIS Outpatient NORA ESCAMILLA [facility] ONC [id number] 07/01/2018 00:10:00 04/25/2 019 23:59:59 CLS Preadmit DANIEL, MARIPOSA E SET UP OPERATOR [facility] PULM RESTRICTIVE JONATHON G DISEASE,SOB DYSPNEA [id number] 06/01/2018 09:00:00 019 00:01:00 DIS Outpatient MARIPOSA SANCHEZ APRN [facility] PULM RESTRICTIVE JONATHON G DISEASE,SOB DYSPNEA [id number] 06/01/2018 15:43:00 17:59:00 DIS Emergency TO GRAY MD [facility] ER HEART RATE PROBLEMS [id number] 05/07/2018 20:33:00 06:53:00 DIS Outpatient MARIPOSA SANCHEZ APRN [facility] SLEEP JAD, ASTHMA, AN TERIOR CHEST WALL PAIN [id number] 03/30/2018 20:05:00 019 06:10:00 DIS Outpatient MARIPOSA SANCHEZ APRN [facility] SLEEP HYPOXEMIA,ASTHM A,SOB [id number] 03/29/2018 21:00:00 23:59:59 CLS Preadmit MARIPOSA SANCHEZ APRN [facility] SLEEP JAD,ASTHMA,SOB DYSPNEA [id number] 03/18/2018 09:00:00 019 00:01:00 DIS Outpatient MARIPOSA SANCHEZ APRN [facility] PULM RESTRICTIVE JONATHON G DISEASE,SOB DYSPNEA [id number] 12/24/2017 08:56:00 00:01:00 DIS Outpatient NORA ESCAMILLA [facility] ONC [id number] 02/23/2018 08:19:00 23:59:59 CLS Outpatient MARIPOSA SANCHEZ APRN [facility] RAD RESTRICTIVE JONATHON G DISEASE [id number] 02/02/2018 06:34:00 10:45:00 DIS Outpatient MARILY PANDEY DO [facility] ENDO IRON DEF ANEMIA [id number] 01/27/2018 13:15:00 11/21/2 018 14:09:00 DIS Outpatient MARILY PANDEY DO [facility] PREOP COLONOSCOPY/EGD [id number] 12/09/2017 11:59:00 23:59:59 CLS Outpatient LOUISE LAND SET UP OPERATOR [facility] RAD DYSURIA [id number] 11/30/2017 10:16:00 018 00:01:00 DIS Outpatient MARIPOSA SANCHEZ SET UP OPERATOR [facility] RT RESTRICTIVE JONATHON G DISEASE,SOB DYSPNEA [id number] 11/19/2017 08:53:00 018 00:01:00 DIS Outpatient NORA ESCAMILLA [facility] ONC [id number] 12/02/2017 08:21:00 018 23:59:59 CLS Outpatient ABI PANG SET UP OPERATOR [facility] RAD BREAST NODULE [id number] 11/27/2017 13:53:00 018 23:59:59 CLS Outpatient ABI PANG SET UP OPERATOR [facility] RAD BREAST NODULE [id number] 11/10/2017 07:02:00 018 09:15:00 DIS Outpatient MARILY PANDEY DO [facility] ENDO DYSPHAGIA [id number] 11/02/2017 09:33:00 018 14:05:00 DIS Inpatient LARRY MURILLO DO [facility] 4TH CP/SOB [id number] 11/04/2017 05:54:00 018 10:11:00 DIS Outpatient MARILY PANDEY DO [facility] PREOP EGD [id number] 11/01/2017 00:09:00 018 23:59:59 CLS Preadmit KIYA HERMAN MD [facility] CR3 WELLNESS [id number] 10/06/2017 06:00:00 018 00:01:00 DIS Outpatient KIYA HERMAN MD [facility] CR3 WELLNESS [id number] 10/29/2017 16:54:00 08/23/2 018 21:02:00 DIS Emergency MAGDY ZIEGLER SET UP OPERATOR [facility] ER CP [id number] 09/04/2017 08:54:00 018 00:01:00 DIS Outpatient BATSHEVA LARKIN, KIYA R [facility] CR3 WELLNESS [id number] 08/12/2017 16:03:00 018 00:01:00 DIS Outpatient BATSHEVA LARKIN, KIYA R [facility] CR3 WELLNESS [id number] 06/15/2017 17:00:00 018 00:01:00 DIS Outpatient BATSHEVA LARKIN, KIYA R [facility] CR3 WELLNESS [id number] 06/19/2017 07:17:00 018 23:59:59 CLS Outpatient BATSHEVA LARKIN, KIYA R [facility] RAD PAIN IN LEFT LOWER LEG [id number] 11/18/2016 09:15:00 017 23:59:59 CLS Outpatient BATSHEVA LARKIN, KIYA R [facility] RAD R07.81;PELVIC PAIN [id number] 10/15/2016 07:30:00 017 23:59:59 CLS Outpatient BATSHEVA LARKIN, KIYA R [facility] RAD R10.2 625.9 [id number] 07/01/2016 08:48:00 017 23:59:59 CLS Outpatient LEANNA BROOKE MD [facility] RAD SCREENING [id number] 05/27/2016 08:37:00 017 08:37:00 CAN Preadmit BATSHEVA LARKIN, KIYA R [facility] RAD PNEUMONIA [id number] 05/26/2016 09:02:00 017 23:59:59 CLS Outpatient HERNANDEZ HERMAN MDYD R [facility] RAD PNEUMONIA [id number] 05/06/2016 13:01:00 017 11:30:00 DIS Inpatient WHIT ARRINGTON MD [facility] IRF CAROTID STENOSIS [id number] 04/16/2016 08:35:00 017 23:59:59 CLS Outpatient SAM HEALY MD [facility] CARD CARTOID ARTERY STENOSIS [id number] 04/07/2016 00:41:00 03:26:00 DIS Emergency DAVIN DODSON MD [facility] ER OVERDOSE OF INS ULIN [id number] 03/26/2016 06:47:00 23:59:59 CLS Outpatient NGHIA GUTIERREZ MD [facility] CARD ANTERIOR CHEST WALL TANIA N [id number] 03/25/2016 11:07:00 23:59:59 CLS Outpatient NGHIA GUTIERREZ MD [facility] LAB CAD,ANTERIOR CHEST WALL PAIN [id number] 02/04/2016 00:08:00 23:59:59 CLS Preadmit KIYA HERMAN MD [facility] LAB ANEMIA [id number] 11/06/2015 08:01:00 00:01:00 DIS Outpatient KIYA HERMAN MD [facility] LAB ANEMIA [id number] 12/31/2015 03:53:00 05:28:00 DIS Emergency DAVIN DODSON MD [facility] ER L LEG PAIN [id number] 12/26/2015 06:40:00 08:45:00 DIS Outpatient NGHIA GUTIERREZ MD [facility] CATH CHEST PAIN,ABN STRESS,H TN [id number] 12/12/2015 07:28:00 23:59:59 CLS Outpatient NGHIA GUTIERREZ MD [facility] CARD CHEST PAIN SYNDROME,HTN,SOB,OBSTRUCTIVE SLEEP APNE [id number] 11/29/2015 10:15:00 23:59:59 CLS Preadmit MARIPOSA SANCHEZ APRN [facility] PULM DYSPNEA [id number] 10/18/2015 09:00:00 00:01:00 DIS Outpatient MARIPOSA SANCHEZ APRN [facility] PULM DYSPNEA [id number] 11/27/2015 07:29:00 23:59:59 CLS Outpatient BRENDA LARKIN, NGHIA Alejandra [facility] CARD CHEST PAIN SYNDROME,HTN,SOB,OBSTRUCTIVE SLEEP APNE [id number] 11/23/2015 16:24:00 17:44:00 DIS Emergency MAGDY ZIEGLER SET UP OPERATOR [facility] ER FATIGUE/LOW SUGAR [id number] 11/02/2015 10:33:00 12:04:00 DIS Emergency MAGDY ZIEGLER SET UP OPERATOR [facility] ER SOA [id number] 10/05/2015 13:16:00 23:59:59 CLS Outpatient MARCELO SAEZ MD [facility] RAD SPONDYLOSISTHESIS [id number] 08/23/2015 09:00:00 23:59:59 CLS Outpatient MARIPOSA SANCHEZ APRN [facility] PULM DYSPNEA [id number] 06/28/2015 07:07:00 23:59:59 CLS Outpatient LEANNA BROOKE MD [facility] RAD SCREENING [id number] 04/24/2015 06:43:00 23:59:59 CLS Outpatient BATSHEVA LARKIN, KIYA Wei [facility] RAD RUQ PAIN [id number] 03/15/2015 19:48:00 06:50:00 DIS Outpatient MARIPOSA SANCHEZ APRN [facility] SLEEP JAD,SNORING, [id number] 03/05/2015 08:13:00 23:59:59 CLS Outpatient LARRY MURILLO DO [facility] RAD HTN,ASTHMA [id number] 02/11/2015 19:37:00 12/07/2 015 06:45:00 DIS Outpatient LARRY MURILLO DO [facility] SLEEP HTN,SNORING,DAYTIME SLE EPINESS [id number] 01/17/2015 16:11:00 23:59:59 CLS Outpatient LARRY MURILLO DO [facility] RT HTN,DIABETES,OBESITY,HL P [id number] 12/15/2014 05:43:00 07:30:00 DIS Emergency RUSLAN MADRID MD [facility] ER ANXIETY [id number] 11/09/2014 13:15:00 23:59:59 CLS Outpatient ABBIE HERNANDEZ APRN [facility] RAD BILATERAL RENNY ICATION OF LOWER LIMB DIABETES JOSE [id number] 11/03/2014 13:29:00 15:52:00 DIS Emergency JUSTINO CAREY MD [facility] ER CHEST PAIN [id number] 09/06/2014 07:28:00 23:59:59 CLS Outpatient KIYA HERMAN MD [facility] RAD PERSISTANT HEADACHE,FRO NTAL [id number] 08/30/2014 09:39:00 23:59:59 CLS Outpatient KIYA HERMAN MD [facility] RAD PERSISTANT COUGH [id number] 06/23/2014 06:51:00 23:59:59 CLS Outpatient LEANNA BROOKE MD [facility] RAD SCREENING [id number] 06/12/2014 00:11:00 23:59:59 CLS Preadmit KIYA HERMAN MD [facility] LAB SYMPTOMS INVOLVING URIN DANA TRACT [id number] 03/13/2014 15:59:00 015 00:01:00 DIS Outpatient KIYA HERMAN MD [facility] LAB SYMPTOMS INVOLVING URIN DANA TRACT [id number] 06/21/2013 08:07:00 04/15/2 014 23:59:59 CLS Outpatient LEANNA BROOKE MD [facility] RAD SCREENING [id number] 12/02/2012 14:22:00 00:01:00 DIS Outpatient KIYA HERMAN MD [facility] WEAKNESS [id number] 01/05/2013 08:23:00 11:35:00 DIS Outpatient MARQUITA HERNANDEZ MD [facility] PEPTIC ULCER DISEASE; A NEMIA [id number] 12/30/2012 07:15:00 23:59:59 CLS Outpatient MARQUITA HERNANDEZ MD [facility] PREOP PEPTIC ULCER DISEASE; A NEMIA [id number] 12/23/2012 15:40:00 23:59:59 CLS Outpatient KIYA HERMAN MD [facility] RAD PAIN WITH CHANGE IN V ISION [id number] 09/08/2012 09:45:00 23:59:59 CLS Outpatient Justyn MORRISSEY MD [facility] LAB CYSTITIS [id number] 08/27/2012 09:12:00 23:59:59 CLS Outpatient Justyn MORRISSEY MD [facility] LAB UTI [id number] 07/21/2012 10:02:00 23:59:59 CLS Outpatient Justyn MORRISSEY MD [facility] LAB 595.2 [id number] 06/13/2019 00:00:00 Document Registration [id number] 01/28/2019 09:23:00 Document Registration [id number] 10/13/2017 07:54:00 Document Registration [id number] 10/07/2017 09:23:00 Document Registration [id number] 12/13/2014 06:56:00 Document Registration [id number] 12/12/2014 15:11:00 Document Registration [id number] 03/13/2014 15:59:00 Document Registration [id number] 03/03/2013 00:00:00 Document Registration [id number] 06/21/2012 08:54:00 Document Registration [id number] 06/17/2012 11:49:00 Document Registration [id number] 04/28/2012 10:48:00 Document Registration [id number] 07/24/2011 09:15:00 Document Registration [id number] 06/23/2011 08:01:00 Document Registration [id number] 05/29/2011 05:42:00 Document Registration [id number] 05/19/2011 07:27:00 Document Registration [id number] 02/11/2011 16:00:00 Document Registration [id number] 01/18/2011 22:01:00 Document Registration [id number] 10/12/2010 14:30:00 Document Registration [id number] 07/11/2010 15:51:00 Document Registration [id number] 07/08/2010 11:52:00 Document Registration [id number] 06/20/2010 14:16:00 Document Registration [id number] 06/20/2010 06:57:00 Document Registration [id number] 01/18/2010 08:56:00 Document Registration [id number] 12/25/2009 09:07:00 Document Registration [id number] 12/18/2009 15:48:00 Document Registration [id number] 12/17/2009 13:15:00 Document Registration [id number] 09/19/2009 07:39:00 Document Registration [id number] 08/29/2009 06:18:00 Document Registration [id number] 08/17/2009 15:56:00 Document Registration [id number] 03/13/2009 12:58:00 Document Registration [id number] 04/24/2019 17:50:00 04/24/2019 23:59: 59 CLS Outpatient DONALDO [facility]
[2019-10-25] MEDS ORDERED: NS IV 1000 ML 1,000 ML IV SCH (15:35)
[2019-10-25] MEDS ORDERED: NS 100 ML (IVPB) BAG IV ONE (15:45)
[2019-10-25] MEDS ORDERED: HOLD METFORMIN - RECEIVED CONTRAST 20 ML VIAL IV SCH (15:45)
[2019-10-25] MEDS ORDERED: IOHEXOL 350 MG/ML 100 ML (OMNIPAQUE 350) VIAL IV ONE (15:45)
--- NOTE | 2019-10-25 16:20 | Diagnostic Imaging Report ---
PROCEDURE: CT angiography of the head and CT angiography of the neck with and without contrast. TECHNIQUE: Contiguous noncontrast images were obtained from the skull base through the vertex. After intravenous contrast administration, helical CT angiography of the neck was performed. Source data was reformatted into 3D MIP projections. Delayed post contrast acquisition was also obtained. Auto Exposure Controls were utilized during the CT exam to meet ALARA standards for radiation dose reduction. INDICATION: Vertigo and disequilibrium. COMPARISON: CT head of 10/13/[address] chest of 11/04/2019. FINDINGS: Noncontrast head: No hyperdense hemorrhage or space-occupying mass. No hydrocephalus or midline shift. [place]-white matter differentiation is preserved. Minimal periventricular white matter hypoattenuation within the anterior limb of the internal capsule on the right is likely due to chronic microvascular ischemic disease. No acute calvarial abnormality. Paranasal sinuses and mastoid air cells are clear. CTA neck: Aortic arch is normal in appearance with conventional three-vessel branching pattern. Bilateral common carotid arteries are widely patent. No luminal narrowing at the proximal internal carotid arteries per NASCET criteria. Multiple metallic clips are present around the right ICA possibly from prior endarterectomy. The cervical segments of the bilateral internal carotid arteries are widely patent. The vertebral arteries both opacify within the neck. The right vertebral artery is dominant. There is no feature of vertebral artery dissection on either side. Mildly enlarged right upper paratracheal lymph node is unchanged measuring 1.2 cm. No cervical lymphadenopathy. CTA head: Bilateral distal internal carotid arteries are widely patent. There is circumferential plaquing within the cavernous sections of the bilateral distal internal carotid arteries. The M1 and M2 divisions of the bilateral middle cerebral arteries are widely patent. The M3 divisions are grossly symmetric. Anterior cerebral arteries are widely patent. No saccular aneurysm within the anterior circulation. Basilar artery is normal in caliber without stenosis. No aneurysm at the tip of the basilar artery. The posterior cerebral arteries are normal. Allowing for small size, the posterior inferior cerebellar arteries are patent centrally. The bilateral superior cerebellar arteries are patent. Anterior inferior cerebellar arteries are diminutive in size and suboptimally evaluated. No pathologic enhancement on delayed phase images. IMPRESSION: 1. No intracranial large vessel occlusion. 2. No arterial occlusion or high-grade stenosis within the neck. Specifically, the vertebrobasilar system is widely patent. 3. Likely carotid endarterectomy on the right without residual stenosis of the right ICA. 4. No intracranial hemorrhage or features of territorial infarct. Dictated by: Dictated on workstation # [id number]
--- NOTE | 2019-10-25 16:39 | ED General ---
General Chief Complaint: Dizziness/Syncope Stated Complaint: DIZZINESS;BP PROBLEM Nursing Triage Note: Assisted pt via ED w/c to room #2 with c/o dizziness. Pt reports onset of s/s began approx x3wks ago. Pt states, "I can't hold my eyes open." Pt expresses concerns regarding living alone et difficulty caring for herself. Pt continuoulsy state to this RN, "please admit me!" Pt noted to be tearful et anxious. A&OX4. Nursing Sepsis Screen: No Definite Risk Source of Information: Patient, Old Records Exam Limitations: No Limitations History of Present Illness Date Seen by Provider: Oct 25, 2019 Time Seen by Provider: 12:54 Initial Comments This 63-year-old woman presents to emergency room with primary complaint of dizziness. She describes the dizziness as a persistent vertigo or spinning s ensation. It does not fatigue and is not dependent upon positions. It is not improved with meclizine. She has had multiple visits to the ER recently, largely due to abdominal pain. She states this dizziness was present during those visits as well and has been persistent for about 3 weeks. She is having difficulty walking due to the dizziness. Allergies and Home Medications Allergies Coded Allergies: Penicillins (Verified Allergy, Unknown, 05/15/19) meperidine (Verified Allergy, Unknown, 09/06/19) morphine (Unverified Allergy, Unknown, 05/15/19) propoxyphene (Verified Allergy, Unknown, 05/15/19) topiramate (Verified Allergy, Unknown, 05/15/19) codeine (Verified Adverse Reaction, Unknown, UPSET STOMACH, 09/13/19) dapagliflozin (Verified Adverse Reaction, Unknown, yeast infection, 09/13/19) Home Medications Acetaminophen 500 Mg Tablet, 1,000 MG PO Q6H PRN for PAIN-MILD, (Reported) Acetaminophen/Diphenhydramine 1 Each Tablet, 1 EACH PO Q4H PRN for PAIN-MILD (1- 4) Prescribed by: MAGDY ZIEGLER on 10/07/19 1545 Amlodipine Besylate 10 Mg Tablet, 5 MG PO DAILY, (Reported) Aspirin 81 Mg Tablet.dr, 81 MG PO DAILY, (Reported) Atorvastatin Calcium 10 Mg Tablet, 10 MG PO DAILY, (Reported) Cetirizine HCl 10 Mg Tablet, 10 MG PO DAILY, (Reported) Citalopram Hydrobromide 10 Mg Tablet, 10 MG PO DAILY, (Reported) Cranberry Fruit Concentrate 500 Mg Capsule, 500 MG PO DAILY, (Reported) Cyanocobalamin 1,000 Mcg/Ml Inj, 1,000 MCG IM UD, (Reported) Cyclobenzaprine HCl 10 Mg Tablet, 10 MG PO PRN, (Reported) Dicyclomine HCl 10 Mg Capsule, 10 MG PO TID Prescribed by: MAGDY ZIEGLER on 10/16/19 1245 Diphenoxylate HCl/Atropine 1 Each Tablet, 1 EACH PO PRN, (Reported) Eszopiclone 2 Mg Tablet, 2 MG PO HS, (Reported) Fluticasone Propionate 16 Gm [place].susp, 2 SPRAYS NS HS, (Reported) Fluticasone Propionate 30 Gm Cream..g., 50 GM TP DAILY, (Reported) Gabapentin 100 Mg Capsule, 100 MG PO TID, (Reported) Insulin Degludec 200 Unit/1 Ml Insuln.pen, 12 UNITS SC BID, (Reported) Levothyroxine Sodium 125 Mcg Tablet, 125 MCG PO DAILY, (Reported) Lorazepam 1 Mg Tablet, 1 MG PO DAILY PRN for ANXIETY, (Reported) Losartan Potassium 50 Mg Tablet, 50 MG PO DAILY, (Reported) Magnesium Oxide 200 Mg Tablet, 400 MG PO DAILY, (Reported) Meclizine HCl 25 Mg Tablet, 25 MG PO TID, (Reported) Metoprolol Succinate 25 Mg Tab.er.24h, 25 MG PO DAILY, (Reported) Montelukast Sodium 10 Mg Tablet, 10 MG PO HS, (Reported) Ondansetron HCl 4 Mg Tablet, 4 MG PO UD, (Reported) Pantoprazole Sodium 40 Mg Tablet.dr, 40 MG PO DAILY, (Reported) Sucralfate 1 Gm Tablet, 1 GM PO QID Prescribed by: MARILY PANDEY on 09/13/19 0907 Tramadol HCl 50 Mg Tablet, 50 MG PO Q4H PRN for PAIN-MODERATE, (Reported) Trazodone HCl 50 Mg Tablet, 50 MG PO HS, (Reported) Vit D3 & K/Berberine HCl/Hops 1 Each Tablet, 1 EACH PO DAILY, (Reported) Patient Home Medication List Home Medication List Reviewed: Yes Review of Systems Review of Systems Constitutional: weakness EENTM: see HPI Respiratory: no symptoms reported Cardiovascular: no symptoms reported Gastrointestinal: abdominal pain Genitourinary: no symptoms reported : No Musculoskeletal: no symptoms reported Skin: no symptoms reported Psychiatric/Neurological: See HPI Hematologic/Lymphatic: No Symptoms Reported Immunological/Allergic: no symptoms reported Past Hnqabac-Pcczke-Svnnfq Hx Past Med/Social Hx: Reviewed Nursing Past Med/Soc Hx Patient Social History Alcohol Use: Denies Use Recreational Drug Use: No Smoking Status: Never a Smoker 2nd Hand Smoke Exposure: No Recent Foreign Travel: No Contact w/Someone Who Travel: No Recent Infectious Disease Expo: No Recent Hopitalizations: No Immunizations Up To Date Tetanus Booster (TDap): Unknown Date of Pneumonia Vaccine: Feb 05, 2017 Date of Influenza Vaccine: Dec 21, 2018 Seasonal Allergies Seasonal Allergies: No Past Medical History Surgeries: Yes (FOOT, bilat CTR, carotid endartectomy, bilat TKR) Appendectomy, Coronary Stent, Gallbladder, Orthopedic, Thyroidectomy Respiratory: Yes (CPAP - 3L NC O2 ) Asthma, Sleep Apnea, COPD Currently Using CPAP: Yes Currently Using BIPAP: No Cardiac: Yes (STENT) Cardiomyopathy, Chronic Edema/Swelling, Coronary Artery Disease, High Cholesterol, Hypertension, Valvular Heart Disease Neurological: No 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 Sexually Transmitted Disease: No HIV/AIDS: No Genitourinary: No UTI-Chronic Gastrointestinal: Yes Colitis, Gastroesophageal Reflux Musculoskeletal: Yes (ARTHRITIS, spinal stenosis) Arthritis, Scoliosis Endocrine: Yes Diabetes, Insulin dep, Hypothyroidsim HEENT: No Cancer: No Psychosocial: Yes Anxiety, Depression Integumentary: No Blood Disorders: No Adverse Reaction/Blood Tranf: No Family Medical History Alzheimer's disease G8 SISTER Diabetes mellitus 19 FATHER Hypertension 19 FATHER 19 MOTHER Myocardial infarction 19 FATHER 19 MOTHER Neoplasm G8 SISTER Physical Exam Vital Signs Vital Signs - First Documented 10/25/19 13:10 Temp 37.0 Pulse 88 Resp 18 B/P (MAP) 143/107 (119) Pulse Ox 100 O2 Delivery Room Air Capillary Refill : Less Than 3 Seconds Height, Weight, BMI Height: 5'4.00" Weight: 246lbs. 6.0oz. 111.157269il; 41.00 BMI Method:Stated General Appearance: WD/WN, Anxious HEENT: PERRL/EOMI, TMs Normal (Right TM obscured by cerumen), Normal ENT Inspection, Pharynx Normal, Other (No nystagmus noted with extraocular movements) Neck: Full Range of Motion, Normal Inspection Respiratory: Lungs Clear, Normal Breath Sounds, No Accessory Muscle Use, No Respiratory Distress Cardiovascular: Regular Rate, Rhythm, No Edema, No Murmur Gastrointestinal: Normal Bowel Sounds, Non Tender, Soft Extremity: Normal Inspection, No Pedal Edema Neurologic/Psychiatric: Alert, Oriented x3, No Motor/Sensory Deficits, Normal 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, 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 as 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 Skin: Normal Color, Warm/Dry Progress/Results/Core Measures Suspected Sepsis Recent Fever Within 48 Hours: No Infection Criteria Present: Suspected New Infection New/Unexplained Altered Menta: No Sepsis Screen: No Definite Risk SIRS Temperature: Pulse: 88 Respiratory Rate: 18 Laboratory Tests 10/25/19 13:25: White Blood Count 11.5H Blood Pressure 143 /107 Mean: 119 Laboratory Tests 10/25/19 13:25: Creatinine 1.10, Platelet Count 274, Total Bilirubin 0.3 Results/Orders Lab Results Laboratory Tests Test 10/25/19 13:25 Range/Units White Blood Count 11.5 H 4.3-11.0 10^3/uL Red Blood Count 4.05 L 4.35-5.85 10^6/uL Hemoglobin 12.4 11.5-16.0 G/DL Hematocrit 38 35-52 % Mean Corpuscular Volume 95 80-99 FL Mean Corpuscular Hemoglobin 31 25-34 PG Mean Corpuscular Hemoglobin Concent 32 32-36 G/DL Red Cell Distribution Width 13.3 10.0-14.5 % Platelet Count 274 130-400 10^3/uL Mean Platelet Volume 9.5 7.4-10.4 FL Neutrophils (%) (Auto) 81 H 42-75 % Lymphocytes (%) (Auto) 12 12-44 % Monocytes (%) (Auto) 6 0-12 % Eosinophils (%) (Auto) 2 0-10 % Basophils (%) (Auto) 0 0-10 % Neutrophils # (Auto) 9.3 H 1.8-7.8 X 10^3 Lymphocytes # (Auto) 1.4 1.0-4.0 X 10^3 Monocytes # (Auto) 0.6 0.0-1.0 X 10^3 Eosinophils # (Auto) 0.2 0.0-0.3 10^3/uL Basophils # (Auto) 0.1 0.0-0.1 10^3/uL Sodium Level 139 135-145 MMOL/L Potassium Level 4.9 3.6-5.0 MMOL/L Chloride Level 105 98-107 MMOL/L Carbon Dioxide Level 23 21-32 MMOL/L Anion Gap 11 5-14 MMOL/L Blood Urea Nitrogen 19 H 7-18 MG/DL Creatinine 1.10 0.60-1.30 MG/DL Estimat Glomerular Filtration Rate 50 BUN/Creatinine Ratio 17 Glucose Level 211 H 70-105 MG/DL Calcium Level 9.0 8.5-10.1 MG/DL Corrected Calcium 9.2 8.5-10.1 MG/DL Magnesium Level 1.6 1.6-2.4 MG/DL Total Bilirubin 0.3 0.1-1.0 MG/DL Aspartate Amino Transf (AST/SGOT) 25 5-34 U/L Alanine Aminotransferase (ALT/SGPT) 22 0-55 U/L Alkaline Phosphatase 108 40-136 U/L Troponin I < 0.028 <0.028 NG/ML Total Protein 7.5 6.4-8.2 GM/DL Albumin 3.8 3.2-4.5 GM/DL TSH Schley Testing 0.80 0.35-4.94 UIU/ML My Orders Orders - DAVIN DODSON MD Cbc With Automated Diff (10/25/19 12:54) Comprehensive Metabolic Panel (10/25/19 12:54) Magnesium (10/25/19 12:54) Thyroid Analyzer (10/25/19 12:54) Troponin I (10/25/19 12:54) Ed Iv/Invasive Line Start (10/25/19 12:54) Ekg Tracing (10/25/19 12:54) Monitor-Rhythm Ecg Trace Only (10/25/19 12:54) Ct Angio Head/Neck (10/25/19 15:35) Ns Iv 1000 Ml (Sodium Chloride 0.9%) (10/25/19 15:35) Iohexol Injection (Omnipaque 350 Mg/Ml 1 (10/25/19 15:45) Received Contrast (Hold Metformin- Contr (10/25/19 15:45) Ns (Ivpb) (Sodium Chloride 0.9% Ivpb Bag (10/25/19 15:45) Medications Given in ED Current Medications Medications Dose Ordered Sig/Katrina Route Start Time Stop Time Status Last Admin Dose Admin Iohexol 75 ml ONCE ONCE IV 10/25/19 15:45 10/25/19 15:46 DC 10/25/19 16:08 75 ML Sodium Chloride 100 ml ONCE ONCE IV 10/25/19 15:45 10/25/19 15:46 DC 10/25/19 16:09 80 ML Vital Signs/I&O 10/25/19 10/25/19 13:10 17:10 Temp 37.0 37.0 Pulse 88 86 Resp 18 17 B/P (MAP) 143/107 (119) 149/86 (119) Pulse Ox 100 99 O2 Delivery Room Air Room Air Capillary Refill : Less Than 3 Seconds Blood Pressure Mean: 119 Progress Note : Progress Note Because the vertiginous sensation was not fatigable and did not change with rest or position and also affected her gait, there was concern for compromise of posterior circulation. CT angiogram of the head and neck was obtained. No abnormalities were identified to explain the symptoms. We further discussed possible causes which might include medications. Patient did note that she started some medications for irritable bowel syndrome near the time of her vertigo started. In particular, dicyclomine seems like it may be a culprit after reviewing side effect profile. Patient was instructed to stop dicyclomine. ECG Initial ECG Impression Date: Oct 25, 2019 Initial ECG Impression Time: 13:26 Initial ECG Rate: 80 Initial ECG Rhythm: Normal Sinus Initial ECG Intervals: Normal Comment Normal sinus rhythm with no ST elevation or depression. No abnormal intervals or axis deviation. Diagnostic Imaging Diagonstic Imaging: CT Plain Films/CT/US/NM/MRI: other Comments NAME: [facility] REC#: [id number] PT STATUS: REG ER : 1955 PHYSICIAN: DAVIN DODSON MD ADMIT DATE: 10/25/19/ER Signed Date of Exam:10/25/19 CT ANGIO HEAD/NECK PROCEDURE: CT angiography of the head and CT angiography of the neck with and without contrast. TECHNIQUE: Contiguous noncontrast images were obtained from the skull base through the vertex. After intravenous contrast administration, helical CT angiography of the neck was performed. Source data was reformatted into 3D MIP projections. Delayed post contrast acquisition was also obtained. Auto Exposure Controls were utilized during the CT exam to meet ALARA standards for radiation dose reduction. INDICATION: Vertigo and disequilibrium. COMPARISON: CT head of 10/13/[address] chest of 11/04/2019. FINDINGS: Noncontrast head: No hyperdense hemorrhage or space-occupying mass. No hydrocephalus or midline shift. [place]-white matter differentiation is preserved. Minimal periventricular white matter hypoattenuation within the anterior limb of the internal capsule on the right is likely due to chronic microvascular ischemic disease. No acute calvarial abnormality. Paranasal sinuses and mastoid air cells are clear. CTA neck: Aortic arch is normal in appearance with conventional three-vessel branching pattern. Bilateral common carotid arteries are widely patent. No luminal narrowing at the proximal internal carotid arteries per NASCET criteria. Multiple metallic clips are present around the right ICA possibly from prior endarterectomy. The cervical segments of the bilateral internal carotid arteries are widely patent. The vertebral arteries both opacify within the neck. The right vertebral artery is dominant. There is no feature of vertebral artery dissection on either side. Mildly enlarged right upper paratracheal lymph node is unchanged measuring 1.2 cm. No cervical lymphadenopathy. CTA head: Bilateral distal internal carotid arteries are widely patent. There is circumferential plaquing within the cavernous sections of the bilateral distal internal carotid arteries. The M1 and M2 divisions of the bilateral middle cerebral arteries are widely patent. The M3 divisions are grossly symmetric. Anterior cerebral arteries are widely patent. No saccular aneurysm within the anterior circulation. Basilar artery is normal in caliber without stenosis. No aneurysm at the tip of the basilar artery. The posterior cerebral arteries are normal. Allowing for small size, the posterior inferior cerebellar arteries are patent centrally. The bilateral superior cerebellar arteries are patent. Anterior inferior cerebellar arteries are diminutive in size and suboptimally evaluated. No pathologic enhancement on delayed phase images. IMPRESSION: 1. No intracranial large vessel occlusion. 2. No arterial occlusion or high-grade stenosis within the neck. Specifically, the vertebrobasilar system is widely patent. 3. Likely carotid endarterectomy on the right without residual stenosis of the right ICA. 4. No intracranial hemorrhage or features of territorial infarct. Dictated by: Dictated on workstation # [id number] Dict: 10/25/19 1608 Trans: 10/25/19 1658 [facility] [id number] Interpreted by: GENO CORNEJO MD Electronically signed by: GENO CORNEJO MD 10/25/19 0797 Reviewed: Reviewed by Me Departure Impression Primary Impression: Vertigo Additional Impression: Vision changes Disposition: 01 HOME, SELF-CARE Condition: Improved Departure-Patient Inst. Decision time for Depature: 16:37 Referrals: DOUG SEWELL DO (PCP/Family) Primary Care Physician Patient Instructions: Vertigo (a Type of Dizziness) (DC) Add. Discharge Instructions: Stop dicyclomine. Discuss your bowel issues with Dr. Pandey at your follow-up appointment tomorrow. Follow-up with your primary care provider soon as possible. If your symptoms do not improve a few days after stopping dicyclomine, discuss ordering physical therapy for your vertigo with your primary care provider. Return to care if you have worsening symptoms despite making these changes. All discharge instructions reviewed with patient and/or family. Voiced understanding. Copy Copies To 1: DOUG SEWELL JOSHUA T MD Oct 25, 2019 16:38
[2019-10-25 17:10] VITALS: BP 149/86
== END 2019-10-25 17:10 | disposition home or self-care (01) ==
LOC: EDUNIT# 12:22 → ER 12:23
DX: R42 Dizziness and giddiness (principal); H53.9 Unspecified visual disturbance; I10 Essential (primary) hypertension; E11.9 Type 2 diabetes mellitus without complications; E03.9 Hypothyroidism, unspecified; E78.00 Pure hypercholesterolemia, unspecified; I25.10 Atherosclerotic heart disease of native coronary artery without angina pectoris; J45.909 Unspecified asthma, uncomplicated; K21.9 Gastro-esophageal reflux disease without esophagitis; F41.9 Anxiety disorder, unspecified; F32.9 Major depressive disorder, single episode, unspecified; Z79.890 Hormone replacement therapy; Z95.5 Presence of coronary angioplasty implant and graft; Z79.4 Long term (current) use of insulin; Z88.5 Allergy status to narcotic agent; Z88.0 Allergy status to penicillin; Z88.3 Allergy status to other anti-infective agents; Z88.8 Allergy status to other drugs, medicaments and biological substances; Z88.6 Allergy status to analgesic agent; Z79.82 Long term (current) use of aspirin
CPT/HCPCS: 36415; 70496; 70498; 80053; 83735; 84443; 84484; 85025; 93005; 93041

== ENCOUNTER → 2019-11-07 | Outpatient (CLI) | payer MEDICARE, OTHER ==
--- NOTE | 2019-11-07 13:18 | Diagnostic Imaging Report ---
PROCEDURE: US carotid duplex, bilateral. TECHNIQUE: Multiple real-time grayscale images were obtained over the carotid arteries in various projections, bilaterally. Additional spectral analysis and color Doppler duplex images were also obtained. INDICATION: Diabetes and dizziness. FINDINGS: There are no focally elevated velocities in the right common carotid artery or internal carotid arteries. ICA/CCA ratio on the right 0.26. There is antegrade flow in the right vertebral artery. There appears be at least partial occlusion of the left ICA where there is a string sign proximally. ICA/CCA ratio is 0.76. Antegrade flow in the main left vertebral artery. Grayscale images demonstrate moderate plaque IMPRESSION: Findings suspect for high-grade stenosis of the left internal carotid artery as the proximal ICAs is not seen although it does reconstitute distally. This likely reflects a string sign. Recommend clinical correlation, if warranted, followup with CTA. No evidence of hemodynamically significant stenosis on the right. Parameters based on the consensus panel [place]-Scale and Doppler ultrasound criteria published January 2003, Radiology, Volume 229. DOPPLER (peak systolic velocity M/S Right Left CCA 0.89 1.16 ICA Proximal 0.73 NOT SEEN ICA Mid 1.04 0.88 ICA Distal 1.12 0.61 RATIO 1.26 0.76 ECA 1.51 1.87 VERT 0.41 0.56 Dictated by: Dictated on workstation # [id number]
== END ==
LOC: RAD 09:00
PROVIDERS: ATTEND Internal Medicine
DX: I65.21 Occlusion and stenosis of right carotid artery (principal); E11.9 Type 2 diabetes mellitus without complications; Z20.828 Contact with and (suspected) exposure to other viral communicable diseases
CPT/HCPCS: 93880

== ENCOUNTER 2019-12-13 12:39 | Outpatient (RCR) | payer MEDICARE, OTHER ==
[2019-12-12 08:23] LABS: BASOPHILS # (AUTO) 0.1 10^3/uL (0.0-0.1); BASOPHILS % (AUTO) 1 % (0-10); EOSINOPHILS # (AUTO) 0.2 10^3/uL (0.0-0.3); EOSINOPHILS % (AUTO) 2 % (0-10); HEMATOCRIT 38 % (35-52); HEMOGLOBIN 12.3 g/dL (11.5-16.0); LYMPHOCYTES # (AUTO) 1.1 10^3/uL (1.0-4.0); LYMPHOCYTES % (AUTO) 11 % (12-44); MEAN CORPUSCULAR HEMOGLOBIN 31 pg (25-34); MEAN CORPUSCULAR HGB CONC 33 g/dL (32-36); MEAN CORPUSCULAR VOLUME 94 fL (80-99); MEAN PLATELET VOLUME 9.9 fL (9.0-12.2); MONOCYTES # (AUTO) 0.4 10^3/uL (0.0-1.0); MONOCYTES % (AUTO) 4 % (0-12); NEUTROPHILS # (AUTO) 8.3 10^3/uL (1.8-7.8); NEUTROPHILS % (AUTO) 82 % (42-75); PLATELET COUNT 219 10^3/uL (130-400); WHITE BLOOD COUNT 10.1 10^3/uL (4.3-11.0)
[2019-12-12 08:40] LABS: ALBUMIN 3.7 GM/DL (3.2-4.5); BILIRUBIN,TOTAL 0.4 MG/DL (0.1-1.0); CALCIUM 8.8 MG/DL (8.5-10.1); CREATININE SERUM 1.05 MG/DL (0.60-1.30); POTASSIUM 4.7 MMOL/L (3.6-5.0); TOTAL PROTEIN 7.2 GM/DL (6.4-8.2)
[~2019-12-13 12:39] MED LIST changes: +AMLO-250 PO; +AMLO-251 PO; -AMLO10TA7 PO; -AMLO5TAB9 PO; +ASPI-1238 PO; -ASPI-983 PO; -CETI10TA21 PO; +CETI10TA49 PO; -MONT10TA26 PO; +MONT10TA97 PO; -PANT40TA3 PO; +PANT40TA52 PO
[2020-03-11] MEDS ORDERED: AZIT250T12 PO (08:17)
[2020-03-11] MEDS ORDERED: PRD20T PO (08:17)
== END 2020-03-11 | disposition home or self-care (01) ==
LOC: ONC 12:39
PROVIDERS: ATTEND Internal Medicine Hematology & Oncology
DX: N18.30 Chronic kidney disease, stage 3 unspecified (principal); D51.0 Vitamin B12 deficiency anemia due to intrinsic factor deficiency; D63.1 Anemia in chronic kidney disease; E11.9 Type 2 diabetes mellitus without complications; Z87.11 Personal history of peptic ulcer disease; Z87.19 Personal history of other diseases of the digestive system
CPT/HCPCS: 80053; 82728; 85025; 99213

== ENCOUNTER 2020-02-20 12:26 | Emergency (ER) | payer MEDICARE, OTHER ==
[~2020-02-20] VITALS: Ht 162.6 cm; Wt 113.6 kg
[2020-02-20] MEDS ORDERED: LORazepam INJ 2 MG/ML (ATIVAN) VIAL ONE (13:09)
[2020-02-20] MEDS ORDERED: LORazepam INJ 2 MG/ML (ATIVAN) VIAL IVP PRN (13:15)
[2020-02-20] MEDS ORDERED: ASPIRIN 81 MG CHEW (CHILDREN'S ASA) PO ONE (13:15)
[2020-02-20 13:22] LABS: BASOPHILS % (AUTO) 0 % (0-10); EOSINOPHILS # (AUTO) 0.1 10^3/uL (0.0-0.3); EOSINOPHILS % (AUTO) 1 % (0-10); HEMATOCRIT 34 % (35-52); HEMOGLOBIN 11.3 g/dL (11.5-16.0); LYMPHOCYTES % (AUTO) 17 % (12-44); MEAN CORPUSCULAR HEMOGLOBIN 32 pg (25-34); MEAN CORPUSCULAR HGB CONC 33 g/dL (32-36); MEAN CORPUSCULAR VOLUME 97 fL (80-99); MEAN PLATELET VOLUME 10.5 fL (9.0-12.2); MONOCYTES # (AUTO) 0.6 10^3/uL (0.0-1.0); MONOCYTES % (AUTO) 5 % (0-12); NEUTROPHILS # (AUTO) 8.8 10^3/uL (1.8-7.8); NEUTROPHILS % (AUTO) 76 % (42-75); PLATELET COUNT 201 10^3/uL (130-400); WHITE BLOOD COUNT 11.5 10^3/uL (4.3-11.0)
[2020-02-20 13:32] LABS: ALBUMIN 3.8 GM/DL (3.2-4.5); POTASSIUM 4.4 MMOL/L (3.6-5.0)
[2020-02-20 13:33] LABS: CALCIUM 8.8 MG/DL (8.5-10.1)
[2020-02-20 13:35] LABS: TOTAL PROTEIN 6.9 GM/DL (6.4-8.2)
[2020-02-20 13:36] LABS: BILIRUBIN,TOTAL 0.4 MG/DL (0.1-1.0)
[2020-02-20 13:38] LABS: CREATININE SERUM 1.11 MG/DL (0.60-1.30)
[2020-02-20 13:41] LABS: MAGNESIUM 1.7 MG/DL (1.6-2.4)
--- NOTE | 2020-02-20 13:44 | ED Chest Pain ---
General Chief Complaint: Chest Pain Stated Complaint: CP,SOB Source: patient Exam Limitations: no limitations History of Present Illness Date Seen by Provider: Feb 20, 2020 Time Seen by Provider: 13:00 Initial Comments To ER by private vehicle with reports that her [employer]ix architect sent her here after she reported to them that she had oxygen saturation of 86% on her baseline 2 L of oxygen. She wears oxygen [id number]. On arrival here she is 100% on her baseline 2 L. She does feel quite anxious and takes lorazepam 2 mg 3 times a day but has not had any since last night. She has no cough. Timing/Duration: changing over time Severity/Quality: moderate Location: central Radiation: no radiation Activities at Onset: none ASA po PRODUCTION POTTER: No NTG SL PRODUCTION POTTER: No Associated Symptoms: shortness of breath Allergies and Home Medications Allergies Coded Allergies: Penicillins (Verified Allergy, Unknown, 05/15/19) meperidine (Verified Allergy, Unknown, 09/06/19) morphine (Unverified Allergy, Unknown, 05/15/19) propoxyphene (Verified Allergy, Unknown, 05/15/19) topiramate (Verified Allergy, Unknown, 05/15/19) codeine (Verified Adverse Reaction, Unknown, UPSET STOMACH, 09/13/19) dapagliflozin (Verified Adverse Reaction, Unknown, yeast infection, 09/13/19) Home Medications Acetaminophen 500 Mg Tablet, 1,000 MG PO Q6H PRN for PAIN-MILD, (Reported) Acetaminophen/Diphenhydramine 1 Each Tablet, 1 EACH PO Q4H PRN for PAIN-MILD (1- 4) Prescribed by: MAGDY ZIEGLER on 10/07/19 1545 Amlodipine Besylate 10 Mg Tablet, 5 MG PO DAILY, (Reported) Aspirin 81 Mg Tablet.dr, 81 MG PO DAILY, (Reported) Atorvastatin Calcium 10 Mg Tablet, 10 MG PO DAILY, (Reported) Cetirizine HCl 10 Mg Tablet, 10 MG PO DAILY, (Reported) Citalopram Hydrobromide 10 Mg Tablet, 10 MG PO DAILY, (Reported) Cranberry Fruit Concentrate 500 Mg Capsule, 500 MG PO DAILY, (Reported) Cyanocobalamin 1,000 Mcg/Ml Inj, 1,000 MCG IM UD, (Reported) Cyclobenzaprine HCl 10 Mg Tablet, 10 MG PO PRN, (Reported) Dicyclomine HCl 10 Mg Capsule, 10 MG PO TID Prescribed by: MAGDY ZIEGLER on 10/16/19 1245 Diphenoxylate HCl/Atropine 1 Each Tablet, 1 EACH PO PRN, (Reported) Eszopiclone 2 Mg Tablet, 2 MG PO HS, (Reported) Fluticasone Propionate 16 Gm [place].susp, 2 SPRAYS NS HS, (Reported) Fluticasone Propionate 30 Gm Cream..g., 50 GM TP DAILY, (Reported) Gabapentin 100 Mg Capsule, 100 MG PO TID, (Reported) Insulin Degludec 200 Unit/1 Ml Insuln.pen, 12 UNITS SC BID, (Reported) Levothyroxine Sodium 125 Mcg Tablet, 125 MCG PO DAILY, (Reported) Lorazepam 1 Mg Tablet, 1 MG PO DAILY PRN for ANXIETY, (Reported) Losartan Potassium 50 Mg Tablet, 50 MG PO DAILY, (Reported) Magnesium Oxide 200 Mg Tablet, 400 MG PO DAILY, (Reported) Meclizine HCl 25 Mg Tablet, 25 MG PO TID, (Reported) Metoprolol Succinate 25 Mg Tab.er.24h, 25 MG PO DAILY, (Reported) Montelukast Sodium 10 Mg Tablet, 10 MG PO HS, (Reported) Ondansetron HCl 4 Mg Tablet, 4 MG PO UD, (Reported) Pantoprazole Sodium 40 Mg Tablet.dr, 40 MG PO DAILY, (Reported) Sucralfate 1 Gm Tablet, 1 GM PO QID Prescribed by: MARILY PANDEY on 09/13/19 0907 Tramadol HCl 50 Mg Tablet, 50 MG PO Q4H PRN for PAIN-MODERATE, (Reported) Trazodone HCl 50 Mg Tablet, 50 MG PO HS, (Reported) Vit D3 & K/Berberine HCl/Hops 1 Each Tablet, 1 EACH PO DAILY, (Reported) Patient Home Medication List Home Medication List Reviewed: Yes Review of Systems Review of Systems Constitutional: see HPI EENTM: No Symptoms Reported Respiratory: See HPI, Cough Cardiovascular: See HPI, Chest Pain Gastrointestinal: No Symptoms Reported Genitourinary: No Symptoms Reported Musculoskeletal: no symptoms reported Skin: no symptoms reported Psychiatric/Neurological: No Symptoms Reported Endocrine: No Symptoms Reported Hematologic/Lymphatic: No Symptoms Reported Past Nveufjw-Uxxnpn-Ianzwg Hx Patient Social History 2nd Hand Smoke Exposure: No Recent Hopitalizations: No Immunizations Up To Date Tetanus Booster (TDap): Unknown Date of Pneumonia Vaccine: Feb 05, 2017 Date of Influenza Vaccine: Dec 21, 2018 Seasonal Allergies Seasonal Allergies: No Past Medical History Surgeries: Yes (FOOT, bilat CTR, carotid endartectomy, bilat TKR) Appendectomy, Coronary Stent, Gallbladder, Orthopedic, Thyroidectomy Respiratory: Yes (CPAP - 3L NC O2 ) Asthma, Sleep Apnea, COPD Currently Using CPAP: Yes Currently Using BIPAP: No Cardiac: Yes (STENT) Cardiomyopathy, Chronic Edema/Swelling, Coronary Artery Disease, High Cholesterol, Hypertension, Valvular Heart Disease Neurological: No 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 Disorders: No GAME AUTHOR History: Menopausal Sexually Transmitted Disease: No HIV/AIDS: No Genitourinary: No UTI-Chronic Gastrointestinal: Yes Colitis, Gastroesophageal Reflux Musculoskeletal: Yes (ARTHRITIS, spinal stenosis) Arthritis, Scoliosis Endocrine: Yes Diabetes, Insulin dep, Hypothyroidsim HEENT: No Cancer: No Psychosocial: Yes Anxiety, Depression Integumentary: No Blood Disorders: No Adverse Reaction/Blood Tranf: No Family Medical History Alzheimer's disease G8 SISTER Diabetes mellitus 19 FATHER Hypertension 19 FATHER 19 MOTHER Myocardial infarction 19 FATHER 19 MOTHER Neoplasm G8 SISTER Physical Exam Vital Signs Vital Signs - First Documented 02/20/20 12:38 Temp 35.9 Pulse 70 Resp 18 B/P (MAP) 148/85 (106) Pulse Ox 100 O2 Delivery Nasal Cannula O2 Flow Rate 2.0 Capillary Refill : Height, Weight, BMI Height: 5'4.00" Weight: 246lbs. 6.0oz. 111.832510fq; 41.00 BMI Method:Stated General Appearance: No Apparent Distress, WD/WN, Other (No distress oxygen saturation 100% on 2 L, 97% on room air when the oxygen supplemental was turned off) Neck: Full Range of Motion, Normal Inspection Respiratory: No Accessory Muscle Use, No Respiratory Distress Cardiovascular: Regular Rate, Rhythm, Normal Peripheral Pulses Gastrointestinal: Normal Bowel Sounds, Non Tender, Soft Extremity: Normal Capillary Refill, Normal Inspection Neurologic/Psychiatric: Alert, Oriented x3 Skin: Normal Color, Warm/Dry Progress/Results/Core Measures Results/Orders Lab Results Laboratory Tests Test 02/20/20 12:55 Range/Units White Blood Count 11.5 H 4.3-11.0 10^3/uL Red Blood Count 3.54 L 3.80-5.11 10^6/uL Hemoglobin 11.3 L 11.5-16.0 g/dL Hematocrit 34 L 35-52 % Mean Corpuscular Volume 97 80-99 fL Mean Corpuscular Hemoglobin 32 25-34 pg Mean Corpuscular Hemoglobin Concent 33 32-36 g/dL Red Cell Distribution Width 12.9 10.0-14.5 % Platelet Count 201 130-400 10^3/uL Mean Platelet Volume 10.5 9.0-12.2 fL Immature Granulocyte % (Auto) 0 % Neutrophils (%) (Auto) 76 H 42-75 % Lymphocytes (%) (Auto) 17 12-44 % Monocytes (%) (Auto) 5 0-12 % Eosinophils (%) (Auto) 1 0-10 % Basophils (%) (Auto) 0 0-10 % Neutrophils # (Auto) 8.8 H 1.8-7.8 10^3/uL Lymphocytes # (Auto) 2.0 1.0-4.0 10^3/uL Monocytes # (Auto) 0.6 0.0-1.0 10^3/uL Eosinophils # (Auto) 0.1 0.0-0.3 10^3/uL Basophils # (Auto) 0.0 0.0-0.1 10^3/uL Immature Granulocyte # (Auto) 0.0 0.0-0.1 10^3/uL Prothrombin Time 14.0 12.2-14.7 SEC INR Comment 1.0 0.8-1.4 Activated Partial Thromboplast Time 26 24-35 SEC D-Dimer 1.02 H 0.00-0.49 UG/ML Sodium Level 142 135-145 MMOL/L Potassium Level 4.4 3.6-5.0 MMOL/L Chloride Level 106 98-107 MMOL/L Carbon Dioxide Level 26 21-32 MMOL/L Anion Gap 10 5-14 MMOL/L Blood Urea Nitrogen 27 H 7-18 MG/DL Creatinine 1.11 0.60-1.30 MG/DL Estimat Glomerular Filtration Rate 49 BUN/Creatinine Ratio 24 Glucose Level 167 H 70-105 MG/DL Calcium Level 8.8 8.5-10.1 MG/DL Corrected Calcium 9.0 8.5-10.1 MG/DL Magnesium Level 1.7 1.6-2.4 MG/DL Total Bilirubin 0.4 0.1-1.0 MG/DL Aspartate Amino Transf (AST/SGOT) 24 5-34 U/L Alanine Aminotransferase (ALT/SGPT) 40 0-55 U/L Alkaline Phosphatase 74 40-136 U/L Myoglobin 61.5 10.0-92.0 NG/ML Troponin I < 0.028 <0.028 NG/ML B-Type Natriuretic Peptide 205.0 H <100.0 PG/ML Total Protein 6.9 6.4-8.2 GM/DL Albumin 3.8 3.2-4.5 GM/DL My Orders Orders - MAGDY ZIEGLER JEWELRY MECHANIC Cbc With Automated Diff (02/20/20 13:14) Magnesium (02/20/20 13:14) Chest 1 View, Ap/Pa Only (02/20/20 13:14) Ekg Tracing (02/20/20 13:14) Comprehensive Metabolic Panel (02/20/20 13:14) Myoglobin Serum (02/20/20 13:14) Protime With Inr (02/20/20 13:14) Partial Thromboplastin Time (02/20/20 13:14) O2 (02/20/20 13:14) Monitor-Rhythm Ecg Trace Only (02/20/20 13:14) Lipid Panel (02/21/20 06:00) Ed Iv/Invasive Line Start (02/20/20 13:14) BNP (02/20/20 13:14) Fibrin Degradation Products (02/20/20 13:14) Troponin I (02/20/20 13:14) Aspirin Chewable Tablet (Baby Aspirin Ch (02/20/20 13:15) Lorazepam Injection (Ativan Injection) (02/20/20 13:15) Medications Given in ED Current Medications Medications Dose Ordered Sig/Katrina Route Start Time Stop Time Status Last Admin Dose Admin Aspirin 324 mg ONCE ONCE PO 02/20/20 13:15 02/20/20 13:16 DC 02/20/20 13:45 324 MG Lorazepam 1 mg ONCE PRN IVP 02/20/20 13:15 02/20/20 13:34 1 MG Vital Signs/I&O 02/20/20 02/20/20 02/20/20 12:38 12:38 12:38 Temp 35.9 Pulse 70 Resp 18 B/P (MAP) 148/85 (106) Pulse Ox 100 100 O2 Delivery Nasal Cannula Nasal Cannula Nasal Cannula O2 Flow Rate 2.0 2.00 2.00 Departure Impression Primary Impression: Anxiety Disposition: 01 HOME, SELF-CARE Condition: Stable Departure-Patient Inst. Decision time for Depature: 14:14 Referrals: DOUG SEWELL DO (PCP/Family) Primary Care Physician Patient Instructions: Chest Pain (DC) MAGDY ZIEGLER APRN Feb 20, 2020 13:43
--- NOTE | 2020-02-20 14:12 | Diagnostic Imaging Report ---
INDICATION: Chest pain. Comparison is made to prior examination 10/10/2019. FINDINGS: There is cardiomegaly. There is minimal venous congestion. There is no pleural effusion or pneumothorax. Mediastinum is unremarkable. IMPRESSION: Cardiomegaly and mild central pulmonary venous congestion. Dictated by: Dictated on workstation # [id number]
[2020-02-20 14:25] VITALS: BP 148/85
== END 2020-02-20 14:25 | disposition home or self-care (01) ==
LOC: EDUNIT# 12:26 → ER 12:27
DX: F41.9 Anxiety disorder, unspecified (principal); I10 Essential (primary) hypertension; F32.9 Major depressive disorder, single episode, unspecified; K21.9 Gastro-esophageal reflux disease without esophagitis; E03.9 Hypothyroidism, unspecified; E11.9 Type 2 diabetes mellitus without complications; I25.10 Atherosclerotic heart disease of native coronary artery without angina pectoris; E78.00 Pure hypercholesterolemia, unspecified; Z88.0 Allergy status to penicillin; Z88.5 Allergy status to narcotic agent; Z88.8 Allergy status to other drugs, medicaments and biological substances; Z79.890 Hormone replacement therapy; Z95.5 Presence of coronary angioplasty implant and graft; Z83.3 Family history of diabetes mellitus; Z82.49 Family history of ischemic heart disease and other diseases of the circulatory system; Z80.9 Family history of malignant neoplasm, unspecified; Z79.4 Long term (current) use of insulin; Z79.82 Long term (current) use of aspirin
CPT/HCPCS: 36415; 71045; 80053; 83735; 83874; 83880; 84484; 85025; 85379; 85610; 85730; 93005; 93041; 96374

== ENCOUNTER → 2020-02-23 | Outpatient (CLI) | payer MEDICARE, OTHER ==
--- NOTE | 2020-02-23 13:29 | Diagnostic Imaging Report ---
PROCEDURE: US Renal Bilateral. TECHNIQUE: Multiple real-time grayscale images were obtained over the kidneys in various projections bilaterally. INDICATION: Dysuria and urinary retention. FINDINGS: Right kidney measures 10.1 x 5.2 x 5.8 cm and the left ovary measures 9.5 x 4.9 x 5.7 cm. Cortical thickness and echogenicity is normal. No calculi are seen. There is no hydronephrosis. Prevoid bladder volume is 171 mL. Postvoid volume is 72 mL. Left ureteral jet was visualized. Right ureteral jet was not visualized. IMPRESSION: Unremarkable renal ultrasound. Dictated by: Dictated on workstation # [id number]
== END ==
LOC: RAD 09:00
PROVIDERS: ATTEND Nurse Practitioner Family
DX: R30.0 Dysuria (principal); R33.9 Retention of urine, unspecified
CPT/HCPCS: 76770

== ENCOUNTER 2020-03-04 11:11 | Emergency (ER) | payer MEDICARE, OTHER ==
[~2020-03-04] VITALS: Ht 162 cm; Wt 113.0 kg
[2020-03-04] MEDS ORDERED: NS IV 500 ML 500 ML IV ONE (11:30)
--- NOTE | 2020-03-04 11:53 | ED General ---
General Chief Complaint: General Problems/Pain Stated Complaint: DIZZY/NOSE BLEEDS Nursing Triage Note: PT TO ED W/ C/O DIZZINESS ET NOSEBLEEDS ONSET LAST NOC. STATES IS CURRENTLY BEING TREATED FOR AN "INFECTION" BY URGENT CARE BUT STATES SHE DOESN'T KNOW WHAT KIND OF INFECTION. PT TEARFUL, STATES "I'M JUST SO TIRED." Nursing Sepsis Screen: No Definite Risk Source of Information: Patient Exam Limitations: No Limitations History of Present Illness Date Seen by Provider: Mar 04, 2020 Time Seen by Provider: 11:50 Initial Comments To ER with c/o dizziness, occasional nosebleed, states that she was at urgent care and diagnosed with an infection because of some abdominal pain and she states that she has a high white blood cell count. She is tearful and anxious. Timing/Duration: 1-2 Days Severity: Moderate Associated Systoms: Denies Symptoms Allergies and Home Medications Allergies Coded Allergies: Penicillins (Verified Allergy, Unknown, 05/15/19) meperidine (Verified Allergy, Unknown, 09/06/19) morphine (Unverified Allergy, Unknown, 05/15/19) propoxyphene (Verified Allergy, Unknown, 05/15/19) topiramate (Verified Allergy, Unknown, 05/15/19) codeine (Verified Adverse Reaction, Unknown, UPSET STOMACH, 09/13/19) dapagliflozin (Verified Adverse Reaction, Unknown, yeast infection, 09/12) Home Medications Acetaminophen 500 Mg Tablet, 1,000 MG PO Q6H PRN for PAIN-MILD, (Reported) Acetaminophen/Diphenhydramine 1 Each Tablet, 1 EACH PO Q4H PRN for PAIN-MILD (1- 4) Prescribed by: MAGDY ZIEGLER on 10/07/19 1545 Amlodipine Besylate 10 Mg Tablet, 5 MG PO DAILY, (Reported) Aspirin 81 Mg Tablet.dr, 81 MG PO DAILY, (Reported) Atorvastatin Calcium 10 Mg Tablet, 10 MG PO DAILY, (Reported) Cetirizine HCl 10 Mg Tablet, 10 MG PO DAILY, (Reported) Citalopram Hydrobromide 10 Mg Tablet, 10 MG PO DAILY, (Reported) Cranberry Fruit Concentrate 500 Mg Capsule, 500 MG PO DAILY, (Reported) Cyanocobalamin 1,000 Mcg/Ml Inj, 1,000 MCG IM UD, (Reported) Cyclobenzaprine HCl 10 Mg Tablet, 10 MG PO PRN, (Reported) Dicyclomine HCl 10 Mg Capsule, 10 MG PO TID Prescribed by: MAGDY ZIEGLER on 10/16/19 1245 Diphenoxylate HCl/Atropine 1 Each Tablet, 1 EACH PO PRN, (Reported) Eszopiclone 2 Mg Tablet, 2 MG PO HS, (Reported) Fluticasone Propionate 16 Gm [place].susp, 2 SPRAYS NS HS, (Reported) Fluticasone Propionate 30 Gm Cream..g., 50 GM TP DAILY, (Reported) Gabapentin 100 Mg Capsule, 100 MG PO TID, (Reported) Insulin Degludec 200 Unit/1 Ml Insuln.pen, 12 UNITS SC BID, (Reported) Levothyroxine Sodium 125 Mcg Tablet, 125 MCG PO DAILY, (Reported) Lorazepam 1 Mg Tablet, 1 MG PO DAILY PRN for ANXIETY, (Reported) Losartan Potassium 50 Mg Tablet, 50 MG PO DAILY, (Reported) Magnesium Oxide 200 Mg Tablet, 400 MG PO DAILY, (Reported) Meclizine HCl 25 Mg Tablet, 25 MG PO TID, (Reported) Metoprolol Succinate 25 Mg Tab.er.24h, 25 MG PO DAILY, (Reported) Montelukast Sodium 10 Mg Tablet, 10 MG PO HS, (Reported) Ondansetron HCl 4 Mg Tablet, 4 MG PO UD, (Reported) Pantoprazole Sodium 40 Mg Tablet.dr, 40 MG PO DAILY, (Reported) Sucralfate 1 Gm Tablet, 1 GM PO QID Prescribed by: MARILY PANDEY on 09/13/19 0907 Tramadol HCl 50 Mg Tablet, 50 MG PO Q4H PRN for PAIN-MODERATE, (Reported) Trazodone HCl 50 Mg Tablet, 50 MG PO HS, (Reported) Vit D3 & K/Berberine HCl/Hops 1 Each Tablet, 1 EACH PO DAILY, (Reported) Patient Home Medication List Home Medication List Reviewed: Yes Review of Systems Review of Systems Constitutional: see HPI EENTM: see HPI Respiratory: no symptoms reported Cardiovascular: no symptoms reported Gastrointestinal: abdominal pain Genitourinary: no symptoms reported Musculoskeletal: no symptoms reported Skin: no symptoms reported Psychiatric/Neurological: No Symptoms Reported Hematologic/Lymphatic: No Symptoms Reported Immunological/Allergic: no symptoms reported Past Ubwqimp-Mkezeh-Tzigoy Hx Patient Social History Alcohol Use: Denies Use Recreational Drug Use: No Smoking Status: Never a Smoker 2nd Hand Smoke Exposure: No Recent Foreign Travel: No Contact w/Someone Who Travel: No Recent Infectious Disease Expo: No Recent Hopitalizations: No Physical Abuse: No Sexual Abuse: No Mistreated: No Fear: No Immunizations Up To Date Tetanus Booster (TDap): Unknown Date of Pneumonia Vaccine: Feb 05, 2017 Date of Influenza Vaccine: Dec 21, 2018 Seasonal Allergies Seasonal Allergies: No Past Medical History Surgeries: Yes (FOOT, bilat CTR, carotid endartectomy, bilat TKR) Appendectomy, Coronary Stent, Gallbladder, Orthopedic, Thyroidectomy Respiratory: Yes (CPAP - 3L NC O2 ) Asthma, Sleep Apnea, COPD Currently Using CPAP: Yes Currently Using BIPAP: No Cardiac: Yes (STENT) Cardiomyopathy, Chronic Edema/Swelling, Coronary Artery Disease, High Cholesterol, Hypertension, Valvular Heart Disease Neurological: No 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 Sexually Transmitted Disease: No HIV/AIDS: No Genitourinary: No UTI-Chronic Gastrointestinal: Yes Colitis, Gastroesophageal Reflux Musculoskeletal: Yes (ARTHRITIS, spinal stenosis) Arthritis, Scoliosis Endocrine: Yes Diabetes, Insulin dep, Hypothyroidsim HEENT: No Cancer: No Psychosocial: Yes Anxiety, Depression Integumentary: No Blood Disorders: No Adverse Reaction/Blood Tranf: No Family Medical History Alzheimer's disease G8 SISTER Diabetes mellitus 19 FATHER Hypertension 19 FATHER 19 MOTHER Myocardial infarction 19 FATHER 19 MOTHER Neoplasm G8 SISTER Physical Exam Vital Signs Vital Signs - First Documented 03/04/20 11:16 Temp 36.6 Pulse 81 Resp 20 B/P (MAP) 151/78 (102) Pulse Ox 100 O2 Delivery Nasal Cannula O2 Flow Rate 3.00 Capillary Refill : Less Than 3 Seconds Height, Weight, BMI Height: 5'4.00" Weight: 246lbs. 6.0oz. 111.497690im; 43.00 BMI Method:Stated General Appearance: No Apparent Distress, WD/WN, Anxious, Obese Eyes: Bilateral Eye Normal Inspection, Bilateral Eye PERRL, Bilateral Eye EOMI Respiratory: No Accessory Muscle Use, No Respiratory Distress Cardiovascular: Regular Rate, Rhythm, Normal Peripheral Pulses Gastrointestinal: Non Tender, Soft Extremity: Normal Capillary Refill, Normal Inspection Neurologic/Psychiatric: Alert, Oriented x3 Skin: Normal Color, Warm/Dry Progress/Results/Core Measures Suspected Sepsis Recent Fever Within 48 Hours: No Infection Criteria Present: None New/Unexplained Altered Menta: No Sepsis Screen: No Definite Risk SIRS Temperature: Pulse: 81 Respiratory Rate: 20 Laboratory Tests 03/04/20 11:45: White Blood Count 9.9 Blood Pressure 151 /78 Mean: 102 Laboratory Tests 03/04/20 11:45: Platelet Count 157 03/04/20 11:55: Creatinine 0.99, Total Bilirubin 0.4 Results/Orders Lab Results Laboratory Tests Test 03/04/20 11:45 03/04/20 11:55 03/04/20 12:04 03/04/20 12:32 Range/Units White Blood Count 9.9 4.3-11.0 10^3/uL Red Blood Count 3.26 L 3.80-5.11 10^6/uL Hemoglobin 10.5 L 11.5-16.0 g/dL Hematocrit 32 L 35-52 % Mean Corpuscular Volume 98 80-99 fL Mean Corpuscular Hemoglobin 32 25-34 pg Mean Corpuscular Hemoglobin Concent 33 32-36 g/dL Red Cell Distribution Width 13.0 10.0-14.5 % Platelet Count 157 130-400 10^3/uL Mean Platelet Volume 10.2 9.0-12.2 fL Immature Granulocyte % (Auto) 0 % Neutrophils (%) (Auto) 84 H 42-75 % Lymphocytes (%) (Auto) 11 L 12-44 % Monocytes (%) (Auto) 4 0-12 % Eosinophils (%) (Auto) 1 0-10 % Basophils (%) (Auto) 0 0-10 % Neutrophils # (Auto) 8.2 H 1.8-7.8 10^3/uL Lymphocytes # (Auto) 1.1 1.0-4.0 10^3/uL Monocytes # (Auto) 0.4 0.0-1.0 10^3/uL Eosinophils # (Auto) 0.1 0.0-0.3 10^3/uL Basophils # (Auto) 0.0 0.0-0.1 10^3/uL Immature Granulocyte # (Auto) 0.0 0.0-0.1 10^3/uL B-Type Natriuretic Peptide 262.6 H <100.0 PG/ML Sodium Level 139 135-145 MMOL/L Potassium Level 4.0 3.6-5.0 MMOL/L Chloride Level 105 98-107 MMOL/L Carbon Dioxide Level 24 21-32 MMOL/L Anion Gap 10 5-14 MMOL/L Blood Urea Nitrogen 14 7-18 MG/DL Creatinine 0.99 0.60-1.30 MG/DL Estimat Glomerular Filtration Rate 56 BUN/Creatinine Ratio 14 Glucose Level 214 H 70-105 MG/DL Calcium Level 8.6 8.5-10.1 MG/DL Corrected Calcium 8.9 8.5-10.1 MG/DL Total Bilirubin 0.4 0.1-1.0 MG/DL Aspartate Amino Transf (AST/SGOT) 18 5-34 U/L Alanine Aminotransferase (ALT/SGPT) 30 0-55 U/L Alkaline Phosphatase 83 40-136 U/L C-Reactive Protein High Sensitivity 1.13 H 0.00-0.50 MG/DL Total Protein 6.5 6.4-8.2 GM/DL Albumin 3.6 3.2-4.5 GM/DL Urine Color YELLOW Urine Clarity CLEAR Urine pH 6.0 5-9 Urine Specific [place] 1.015 L 1.016-1.022 Urine Protein NEGATIVE NEGATIVE Urine Glucose (UA) TRACE H NEGATIVE Urine Ketones NEGATIVE NEGATIVE Urine Nitrite NEGATIVE NEGATIVE Urine Bilirubin NEGATIVE NEGATIVE Urine Urobilinogen 0.2 < = 1.0 MG/DL Urine Leukocyte Esterase NEGATIVE NEGATIVE Urine RBC (Auto) NEGATIVE NEGATIVE Urine RBC NONE /HPF Urine WBC RARE /HPF Urine Squamous Epithelial Cells 5-10 /HPF Urine Crystals NONE /LPF Urine Bacteria TRACE /HPF Urine Casts NONE /LPF Urine Mucus NEGATIVE /LPF Urine Culture Indicated NO Coronavirus 2019 ([facility]) Negative Negative My Orders Orders - MAGDY ZIEGLER APRN Alprazolam Tablet (Xanax Tablet) (03/04/20 12:00) BNP (03/04/20 12:20) Covid 19 Inhouse Test (03/04/20 12:20) Lorazepam Injection (Ativan Injection) (03/04/20 12:31) Lorazepam Injection (Ativan Injection) (03/04/20 12:45) Ct Abdomen/Pelvis Wo (03/04/20 12:42) Medications Given in ED Current Medications Medications Dose Ordered Sig/Katrina Route Start Time Stop Time Status Last Admin Dose Admin Lorazepam 1 mg ONCE PRN IVP 03/04/20 12:45 03/04/20 12:33 1 MG Sodium Chloride 500 ml @ 0 mls/hr Q0M ONCE IV 12/27/20 11:30 03/04/20 11:31 DC 03/04/20 11:41 0 MLS/HR Vital Signs/I&O 03/04/20 11:16 Temp 36.6 Pulse 81 Resp 20 B/P (MAP) 151/78 (102) Pulse Ox 100 O2 Delivery Nasal Cannula O2 Flow Rate 3.00 Capillary Refill : Less Than 3 Seconds Blood Pressure Mean: 102 Diagnostic Imaging Diagonstic Imaging: Xray Plain Films/CT/US/NM/MRI: chest Comments NAME: RUDDY GARLAND [facility] REC#: [id number] PT STATUS: REG ER : 1955 PHYSICIAN: SHARLA DOWNS MD ADMIT DATE: 03/04/20/ER Draft Date of Exam:03/04/20 CHEST 1 VIEW, AP/PA ONLY EXAMINATION: Chest radiograph, portable AP view. DATE: 03/04/2020 11:58 AM INDICATION: 64-year-old female, weakness. Shortness of breath. COMPARISON: February 20, 2020. FINDINGS: Stable overall appearance of the cardiomediastinal silhouette. There is no identified pneumothorax. There is no large pleural effusion. There are technical limitations of the study relating to patient body habitus and difficulties with exposure. There are likely bilateral interstitial opacities. IMPRESSION: 1. Technically limited exam. 2. Suspected bilateral interstitial opacities which can be seen with pulmonary essentially edema or atypical infection. Dictated on workstation # [id number] Dict: 03/04/20 1159 Trans: 03/04/20 1202 BANNER [id number] Interpreted by: BASIA MARTINEZ MD Electronically signed by: Departure Impression Primary Impression: Anxiety Disposition: ADMITTED INPATIENT Condition: Stable Departure-Patient Inst. Decision time for Depature: 13:47 Referrals: DOUG SEWELL DO (PCP/Family) Primary Care Physician Patient Instructions: NO INSTRUCTIONS GIVEN MAGDY ZIEGLER METALLURGY LABORATORY TECHNICIAN Mar 04, 2020 11:53
[2020-03-04] MEDS ORDERED: ALPRAZolam 0.5 MG (XANAX) TAB PO SCH (12:00)
--- NOTE | 2020-03-04 12:02 | Diagnostic Imaging Report ---
EXAMINATION: Chest radiograph, portable AP view. DATE: 03/04/2020 11:58 AM INDICATION: 64-year-old female, weakness. Shortness of breath. COMPARISON: February 20, 2020. FINDINGS: Stable overall appearance of the cardiomediastinal silhouette. There is no identified pneumothorax. There is no large pleural effusion. There are technical limitations of the study relating to patient body habitus and difficulties with exposure. There are likely bilateral interstitial opacities. IMPRESSION: 1. Technically limited exam. 2. Suspected bilateral interstitial opacities which can be seen with pulmonary essentially edema or atypical infection. Dictated by: Dictated on workstation # [id number]
[2020-03-04 12:03] LABS: BASOPHILS % (AUTO) 0 % (0-10); EOSINOPHILS # (AUTO) 0.1 10^3/uL (0.0-0.3); EOSINOPHILS % (AUTO) 1 % (0-10); HEMATOCRIT 32 % (35-52); HEMOGLOBIN 10.5 g/dL (11.5-16.0); LYMPHOCYTES # (AUTO) 1.1 10^3/uL (1.0-4.0); LYMPHOCYTES % (AUTO) 11 % (12-44); MEAN CORPUSCULAR HEMOGLOBIN 32 pg (25-34); MEAN CORPUSCULAR HGB CONC 33 g/dL (32-36); MEAN CORPUSCULAR VOLUME 98 fL (80-99); MEAN PLATELET VOLUME 10.2 fL (9.0-12.2); MONOCYTES # (AUTO) 0.4 10^3/uL (0.0-1.0); MONOCYTES % (AUTO) 4 % (0-12); NEUTROPHILS # (AUTO) 8.2 10^3/uL (1.8-7.8); NEUTROPHILS % (AUTO) 84 % (42-75); PLATELET COUNT 157 10^3/uL (130-400); WHITE BLOOD COUNT 9.9 10^3/uL (4.3-11.0)
[2020-03-04 12:09] LABS: BILIRUBIN,URINE NEGATIVE (NEGATIVE); CLARITY,URINE CLEAR; COLOR,URINE YELLOW; GLUCOSE, URINE (UA) TRACE (NEGATIVE); KETONES,URINE NEGATIVE (NEGATIVE); LEUKOCYTE ESTERASE ,URINE NEGATIVE (NEGATIVE); NITRITE,URINE NEGATIVE (NEGATIVE); PROTEIN,URINE NEGATIVE (NEGATIVE)
[2020-03-04 12:27] LABS: BACTERIA,URINE TRACE /HPF; WBC,URINE RARE /HPF
[2020-03-04 12:28] LABS: ALBUMIN 3.6 GM/DL (3.2-4.5)
[2020-03-04 12:29] LABS: CALCIUM 8.6 MG/DL (8.5-10.1)
[2020-03-04 12:31] LABS: TOTAL PROTEIN 6.5 GM/DL (6.4-8.2)
[2020-03-04] MEDS ORDERED: LORazepam INJ 2 MG/ML (ATIVAN) VIAL ONE (12:31)
[2020-03-04 12:32] LABS: BILIRUBIN,TOTAL 0.4 MG/DL (0.1-1.0)
[2020-03-04 12:34] LABS: CREATININE SERUM 0.99 MG/DL (0.60-1.30)
[2020-03-04] MEDS ORDERED: LORazepam INJ 2 MG/ML (ATIVAN) VIAL IVP PRN (12:45)
--- NOTE | 2020-03-04 14:11 | Diagnostic Imaging Report ---
PROCEDURE: CT abdomen and pelvis without contrast. TECHNIQUE: Multiple contiguous axial images were obtained through the abdomen and pelvis without the use of intravenous contrast. Auto Exposure Controls were utilized during the CT exam to meet ALARA standards for radiation dose reduction. DATE: March 04, 2020. COMPARISON: Renal ultrasound February 23, 2020. CT abdomen pelvis October 16, 2019. INDICATION: 64-year-old female, abdominal pain. FINDINGS: There are limitations for evaluation of the abdominal organs, neoplastic processes, abscess, and limited evaluation of the vasculature relating to the lack of intravenous contrast. There is mosaic lung attenuation in the imaged lung bases. The heart is not enlarged. There is no pericardial effusion. There is valvular hardware or valvular calcifications at the level of the mitral valve. The liver is unremarkable in size and contour. The patient is status post cholecystectomy. There is no biliary ductal dilation. The main pancreatic duct is not grossly dilated. Limited noncontrast evaluation of the pancreatic parenchyma is unremarkable. Multiple small splenic calcifications are compatible with sequela of prior granulomatous disease. The spleen is not enlarged. The adrenal glands are unremarkable. Unremarkable limited noncontrast evaluation of the renal parenchyma. The urinary collecting systems are not distended. There is no identified renal or ureteral stone. The urinary bladder is unremarkable. The intestinal tract is not distended. There is no evidence of acute appendicitis. There is no free intraperitoneal air. There is no drainable fluid collection. There is no free pelvic fluid. There are atherosclerotic calcifications. There is no identified abnormally enlarged lymph node in the abdomen or pelvis which meets CT size criteria for adenopathy. There are multilevel degenerative changes of the spine. There is no identified acute bony abnormality. IMPRESSION: CT ABDOMEN AND PELVIS. 1. Mosaic lung attenuation in the imaged lung bases which may relate to small airways disease and air trapping. 2. No identified acute abnormality in the abdomen or pelvis. Dictated by: Dictated on workstation # [id number]
[2020-03-04 14:51] VITALS: BP 135/58
--- NOTE | 2020-03-04 14:51 | NUR ---
PT DISCHARGED TO HOME W/ INSTR. PT VOICED UNDERSTANDING. NO QUESTIONS.
== END 2020-03-04 14:51 | disposition other institution (70) ==
LOC: EDUNIT# 11:11 → ER 11:13
DX: F41.9 Anxiety disorder, unspecified (principal); E66.9 Obesity, unspecified; J45.909 Unspecified asthma, uncomplicated; I25.10 Atherosclerotic heart disease of native coronary artery without angina pectoris; I10 Essential (primary) hypertension; E03.9 Hypothyroidism, unspecified; E78.00 Pure hypercholesterolemia, unspecified; K21.9 Gastro-esophageal reflux disease without esophagitis; F32.9 Major depressive disorder, single episode, unspecified; Z68.41 Body mass index [BMI] 40.0-44.9, adult; Z82.49 Family history of ischemic heart disease and other diseases of the circulatory system; Z83.3 Family history of diabetes mellitus; Z80.9 Family history of malignant neoplasm, unspecified; Z95.5 Presence of coronary angioplasty implant and graft; Z88.0 Allergy status to penicillin; Z88.5 Allergy status to narcotic agent; Z88.8 Allergy status to other drugs, medicaments and biological substances; Z20.828 Contact with and (suspected) exposure to other viral communicable diseases; Z79.890 Hormone replacement therapy; Z79.82 Long term (current) use of aspirin
CPT/HCPCS: 71045; 74176; 80053; 81000; 83880; 85025; 86141; 99284; U0002; 36415; 87635

== ENCOUNTER 2020-03-11 06:27 | Emergency (ER) | payer MEDICARE, OTHER ==
[~2020-03-11] VITALS: Ht 165 cm; Wt 113.0 kg
[2020-03-11 06:55] LABS: ABG OXYGEN SATURATION 98 % (94-100); ABG PCO2 48 MMHG (35-45); ABG PH 7.36 (7.37-7.43); ABG PO2 94 MMHG (79-93); ABG TCO2 27.4 MMOL/L (21.0-31.0)
[2020-03-11 06:56] LABS: ALLENS TEST POSITIVE; INSPIRED O2 3; PATIENT TEMP 36.5; VENTILATOR NO
--- NOTE | 2020-03-11 06:57 | ED Respiratory ---
General Chief Complaint: Respiratory Problems Stated Complaint: SOB;PALPITATIONS Nursing Triage Note: c/o sob and pain in her chest and back started in the middle of the night. Source: patient, EMS Exam Limitations: no limitations History of Present Illness Date Seen by Provider: Mar 11, 2020 Time Seen by Provider: 06:30 Initial Comments The patient presents to the ER by EMS from her house with chief complaint of waking up just prior to arrival feeling very short of breath and feeling like her heart was beating out of her chest. She was recently started on venlafaxine by Dr. Quintanilla, primary care. She does have a strong history of anxiety but also of COPD. She feels she was wheezing but did not take a breathing treatment. EMS kept her on her baseline 3 L by nasal cannula and her oxygen saturations were 100%. Her vitals were otherwise unremarkable. She has had both of her carotids worked on and says she has heart disease as well as a little bit of atrial fibrillation however she is not on any anticoagulant. She is diabetic. She was in the ER a week ago on Thursday and had a negative Covid swab at that time. On that visit she was diagnosed with anxiety. She had some bilateral patchy opacities possible pulmonary edema on the chest x-ray. Allergies and Home Medications Allergies Coded Allergies: Penicillins (Verified Allergy, Unknown, 05/15/19) meperidine (Verified Allergy, Unknown, 09/06/19) morphine (Unverified Allergy, Unknown, 05/15/19) propoxyphene (Verified Allergy, Unknown, 05/15/19) topiramate (Verified Allergy, Unknown, 05/15/19) codeine (Verified Adverse Reaction, Unknown, UPSET STOMACH, 09/13/19) dapagliflozin (Verified Adverse Reaction, Unknown, yeast infection, 09/13/19) Home Medications Acetaminophen 500 Mg Tablet, 1,000 MG PO Q6H PRN for PAIN-MILD, (Reported) Acetaminophen/Diphenhydramine 1 Each Tablet, 1 EACH PO Q4H PRN for PAIN-MILD (1- 4) Prescribed by: MAGDY ZIEGLER on 10/07/19 1545 Amlodipine Besylate 10 Mg Tablet, 5 MG PO DAILY, (Reported) Aspirin 81 Mg Tablet.dr, 81 MG PO DAILY, (Reported) Atorvastatin Calcium 10 Mg Tablet, 10 MG PO DAILY, (Reported) Cetirizine HCl 10 Mg Tablet, 10 MG PO DAILY, (Reported) Citalopram Hydrobromide 10 Mg Tablet, 10 MG PO DAILY, (Reported) Cranberry Fruit Concentrate 500 Mg Capsule, 500 MG PO DAILY, (Reported) Cyanocobalamin 1,000 Mcg/Ml Inj, 1,000 MCG IM UD, (Reported) Cyclobenzaprine HCl 10 Mg Tablet, 10 MG PO PRN, (Reported) Dicyclomine HCl 10 Mg Capsule, 10 MG PO TID Prescribed by: MAGDY ZIEGLER on 10/16/19 1245 Diphenoxylate HCl/Atropine 1 Each Tablet, 1 EACH PO PRN, (Reported) Eszopiclone 2 Mg Tablet, 2 MG PO HS, (Reported) Fluticasone Propionate 16 Gm Brinnon.susp, 2 SPRAYS NS HS, (Reported) Fluticasone Propionate 30 Gm Cream..g., 50 GM TP DAILY, (Reported) Gabapentin 100 Mg Capsule, 100 MG PO TID, (Reported) Insulin Degludec 200 Unit/1 Ml Insuln.pen, 12 UNITS SC BID, (Reported) Levothyroxine Sodium 125 Mcg Tablet, 125 MCG PO DAILY, (Reported) Lorazepam 1 Mg Tablet, 1 MG PO DAILY PRN for ANXIETY, (Reported) Losartan Potassium 50 Mg Tablet, 50 MG PO DAILY, (Reported) Magnesium Oxide 200 Mg Tablet, 400 MG PO DAILY, (Reported) Meclizine HCl 25 Mg Tablet, 25 MG PO TID, (Reported) Metoprolol Succinate 25 Mg Tab.er.24h, 25 MG PO DAILY, (Reported) Montelukast Sodium 10 Mg Tablet, 10 MG PO HS, (Reported) Ondansetron HCl 4 Mg Tablet, 4 MG PO UD, (Reported) Pantoprazole Sodium 40 Mg Tablet.dr, 40 MG PO DAILY, (Reported) Sucralfate 1 Gm Tablet, 1 GM PO QID Prescribed by: MARILY PANDEY on 09/13/19 0907 Tramadol HCl 50 Mg Tablet, 50 MG PO Q4H PRN for PAIN-MODERATE, (Reported) Trazodone HCl 50 Mg Tablet, 50 MG PO HS, (Reported) Vit D3 & K/Berberine HCl/Hops 1 Each Tablet, 1 EACH PO DAILY, (Reported) Patient Home Medication List Home Medication List Reviewed: Yes Review of Systems Review of Systems Constitutional: No chills, No diaphoresis, No fever, No malaise EENTM: No ear discharge, No ear pain Respiratory: No cough; short of breath, wheezing Cardiovascular: No chest pain, No edema Gastrointestinal: No abdominal pain, No nausea, No vomiting Genitourinary: No discharge, No dysuria : No All Other Systems Reviewed Negative Unless Noted: Yes Past Tmlyxhk-Oapbyo-Jppslt Hx Patient Social History Alcohol Use: Denies Use Recreational Drug Use: No 2nd Hand Smoke Exposure: No Recent Foreign Travel: No Contact w/Someone Who Travel: No Recent Infectious Disease Expo: No Recent Hopitalizations: No Immunizations Up To Date Tetanus Booster (TDap): Unknown Date of Pneumonia Vaccine: Feb 05, 2017 Date of Influenza Vaccine: Dec 22, 2019 Seasonal Allergies Seasonal Allergies: No Past Medical History Surgeries: Yes (FOOT, bilat CTR, carotid endartectomy, bilat TKR) Appendectomy, Coronary Stent, Gallbladder, Orthopedic, Thyroidectomy Respiratory: Yes (CPAP - 3L NC O2 ) Asthma, Sleep Apnea, COPD Currently Using CPAP: Yes Currently Using BIPAP: No Cardiac: Yes (STENT) Cardiomyopathy, Chronic Edema/Swelling, Coronary Artery Disease, High Cholesterol, Hypertension, Valvular Heart Disease Neurological: No 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 Disorders: 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 Sexually Transmitted Disease: No HIV/AIDS: No Genitourinary: No UTI-Chronic Gastrointestinal: Yes Colitis, Gastroesophageal Reflux Musculoskeletal: Yes (ARTHRITIS, spinal stenosis) Arthritis, Scoliosis Endocrine: Yes Diabetes, Insulin dep, Hypothyroidsim HEENT: No Cancer: No Psychosocial: Yes Anxiety, Depression Integumentary: No Blood Disorders: No Adverse Reaction/Blood Tranf: No Family Medical History Alzheimer's disease G8 SISTER Diabetes mellitus 19 FATHER Hypertension 19 FATHER 19 MOTHER Myocardial infarction 19 FATHER 19 MOTHER Neoplasm G8 SISTER Physical Exam Vital Signs - First Documented 03/11/20 03/11/20 06:32 07:55 Temp 37.0 Pulse 89 Resp 18 B/P (MAP) 138/64 (88) Pulse Ox 100 O2 Delivery FI02 O2 Flow Rate 3.00 FiO2 3 Capillary Refill : Less Than 3 Seconds Height: 5'4.00" Weight: 246lbs. 6.0oz. 111.828087ib; 41.00 BMI Method:Stated General Appearance: WD/WN, mild distress (Anxious and tearful) Eyes: Bilateral Eye Normal Inspection, Bilateral Eye PERRL, Bilateral Eye EOMI HEENT: PERRL/EOMI, pharynx normal Neck: full range of motion, normal inspection Respiratory: lungs clear, normal breath sounds, no respiratory distress (100% on her baseline 3 L with respiratory rate less than 20), no accessory muscle use Cardiovascular: normal peripheral pulses, regular rate, rhythm Gastrointestinal: normal bowel sounds, non tender, soft Extremities: non-tender, normal inspection Neurologic/Psychiatric: alert, oriented x 3, other (Anxious affect) Skin: normal color, warm/dry Progress/Results/Core Measures Suspected Sepsis Recent Fever Within 48 Hours: No Infection Criteria Present: None New/Unexplained Altered Menta: No Sepsis Screen: No Definite Risk SIRS Temperature: Pulse: 89 Respiratory Rate: 18 Laboratory Tests 03/11/20 06:35: White Blood Count 10.4 Blood Pressure 138 /64 Mean: 88 Laboratory Tests 03/11/20 06:35: Creatinine 0.96, Platelet Count 196, Total Bilirubin 0.3 Results/Orders Lab Results Laboratory Tests Test 03/11/20 06:35 03/11/20 06:38 Range/Units White Blood Count 10.4 4.3-11.0 10^3/uL Red Blood Count 3.25 L 3.80-5.11 10^6/uL Hemoglobin 10.5 L 11.5-16.0 g/dL Hematocrit 33 L 35-52 % Mean Corpuscular Volume 101 H 80-99 fL Mean Corpuscular Hemoglobin 32 25-34 pg Mean Corpuscular Hemoglobin Concent 32 32-36 g/dL Red Cell Distribution Width 13.0 10.0-14.5 % Platelet Count 196 130-400 10^3/uL Mean Platelet Volume 9.8 9.0-12.2 fL Immature Granulocyte % (Auto) 1 % Neutrophils (%) (Auto) 86 H 42-75 % Lymphocytes (%) (Auto) 8 L 12-44 % Monocytes (%) (Auto) 4 0-12 % Eosinophils (%) (Auto) 2 0-10 % Basophils (%) (Auto) 1 0-10 % Neutrophils # (Auto) 8.9 H 1.8-7.8 10^3/uL Lymphocytes # (Auto) 0.8 L 1.0-4.0 10^3/uL Monocytes # (Auto) 0.4 0.0-1.0 10^3/uL Eosinophils # (Auto) 0.2 0.0-0.3 10^3/uL Basophils # (Auto) 0.1 0.0-0.1 10^3/uL Immature Granulocyte # (Auto) 0.1 0.0-0.1 10^3/uL Neutrophils % (Manual) 91 % Lymphocytes % (Manual) 6 % Monocytes % (Manual) 3 % Blood Morphology Comment NORMAL Sodium Level 143 135-145 MMOL/L Potassium Level 4.3 3.6-5.0 MMOL/L Chloride Level 108 H 98-107 MMOL/L Carbon Dioxide Level 26 21-32 MMOL/L Anion Gap 9 5-14 MMOL/L Blood Urea Nitrogen 24 H 7-18 MG/DL Creatinine 0.96 0.60-1.30 MG/DL Estimat Glomerular Filtration Rate 58 BUN/Creatinine Ratio 25 Glucose Level 111 H 70-105 MG/DL Calcium Level 8.6 8.5-10.1 MG/DL Corrected Calcium 8.8 8.5-10.1 MG/DL Total Bilirubin 0.3 0.1-1.0 MG/DL Aspartate Amino Transf (AST/SGOT) 17 5-34 U/L Alanine Aminotransferase (ALT/SGPT) 24 0-55 U/L Alkaline Phosphatase 82 40-136 U/L Troponin I < 0.028 <0.028 NG/ML C-Reactive Protein High Sensitivity 1.21 H 0.00-0.50 MG/DL Total Protein 7.1 6.4-8.2 GM/DL Albumin 3.8 3.2-4.5 GM/DL Coronavirus 2019 ([facility]) Negative Negative Blood Gas Puncture Site LEFT RADIAL Blood Gas Patient Temperature 36.5 Arterial Blood pH 7.36 L 7.37-7.43 Arterial Blood Partial Pressure CO2 48 H 35-45 MMHG Arterial Blood Partial Pressure O2 94 H 79-93 MMHG Arterial Blood HCO3 26 23-27 MMOL/L Arterial Blood Total CO2 27.4 21.0-31.0 MMOL/L Arterial Blood Oxygen Saturation 98 94-100 % Arterial Blood Base Excess 1.0 -2.5-2.5 MMOL/L Derian Test POSITIVE Blood Gas Ventilator Setting NO Blood Gas Inspired Oxygen 3 Micro Results Microbiology 03/11/20 Influenza Types A,B Antigen (GIANLUCA) - Final, Complete My Orders Orders - TO GRAY Arterial Blood Gas (03/11/20 06:44) Cbc With Automated Diff (03/11/20 06:44) Comprehensive Metabolic Panel (03/11/20 06:44) Hs C Reactive Protein (03/11/20 06:44) Covid 19 Inhouse Test (03/11/20 06:44) Influenza A And B Antigens (03/11/20 06:44) Ekg Tracing (03/11/20 06:44) Continuous Ekg Monitoring (03/11/20 06:44) Troponin I (03/11/20 06:44) Chest 1 View, Ap/Pa Only (03/11/20 06:51) Manual Differential (03/11/20 06:35) Prednisone Tablet (Deltasone Tablet) (03/11/20 07:45) Albuterol/Ipra Inhalation Soln (Duoneb I (03/11/20 07:45) Svn Small Volume Nebulizer (03/11/20 07:41) Medications Given in ED Current Medications Medications Dose Ordered Sig/Katrina Route Start Time Stop Time Status Last Admin Dose Admin Albuterol/ Ipratropium 3 ml ONCE ONCE INH 03/11/20 07:45 03/11/20 07:46 DC 03/11/20 07:54 3 ML Prednisone 40 mg ONCE ONCE PO 03/11/20 07:45 03/11/20 07:46 DC 03/11/20 08:00 40 MG Vital Signs/I&O 03/11/20 03/11/20 06:32 07:55 Temp 37.0 Pulse 89 Resp 18 B/P (MAP) 138/64 (88) Pulse Ox 100 98 O2 Delivery FI02 O2 Flow Rate 3.00 FiO2 3 Capillary Refill : Less Than 3 Seconds Blood Pressure Mean: 88 Progress Note #1: Time: 07:02 Progress Note A panic attack could explain her presentation since she has normal vital signs and no increased oxygen demand or wheezing auscultated. We will get an ABG to see if she has blown off all of her CO2. She did have some bilateral patchy infiltrates I will get another chest x-ray and some labs as well as repeat Covid and influenza swabs. Progress Note #2: Time: 07:40 Progress Note The patient's labs were reviewed and it is no longer felt she is a person under investigation for COVID-19 however she does have some CO2 retention. We could treat her with a DuoNeb and see if this helps with her symptoms and potentially put her on low-dose steroids outpatient. ECG Initial ECG Impression Date: Mar 11, 2020 Initial ECG Impression Time: 06:38 Initial ECG Rate: 86 Initial ECG Rhythm: Normal Sinus Initial ECG Intervals: Normal Initial ECG Impression: Normal Initial ECG Comparisson: Unchanged Comment Normal sinus rhythm without clinically relevant ST elevation or depression. Diagnostic Imaging Diagonstic Imaging: Xray Plain Films/CT/US/NM/MRI: chest Comments [facility], [place] NAME: RUDDY GARLAND [facility] REC#: [id number] PT STATUS: REG ER : 1955 PHYSICIAN: TO GRAY MD ADMIT DATE: 03/11/20/ER Draft Date of Exam:03/11/20 CHEST 1 VIEW, AP/PA ONLY Indication: Shortness of air, cough and congestion. Compared: 03/04/2020 Findings: Prominence of the cardiac silhouette unchanged from prior. There is some prominence of the perihilar lung markings as well as central vascularity and thickening of the central airways. No effusion or pneumothorax. Impression: Upper limits heart size, mild vascular congestion as well as perihilar bronchial cuffing. No focal consolidating pneumonia or acute pleural pathology however. Dictated on workstation # [id number] Dict: 03/11/20 0735 Trans: 03/11/20 0754 CV [id number] Interpreted by: RITA MANDUJANO Electronically signed by: Reviewed: Reviewed by Me Departure Impression Primary Impression: Bronchitis Additional Impression: Chronic hypercapnic respiratory failure Disposition: 01 HOME, SELF-CARE Condition: Stable Departure-Patient Inst. Decision time for Depature: 08:14 Referrals: DOUG QUINTANILLA DO (PCP/Family) Primary Care Physician Patient Instructions: Chronic Bronchitis (DC) Add. Discharge Instructions: Starting tomorrow take 20 mg prednisone daily for 2 more days. This will cause an increase in your blood sugar that will go away when you are done with the steroids. DuoNeb through your nebulizer every 4 hours while awake for the next 5 to 7 days. You may take another dose of DuoNeb every 2 hours if you have breakthrough wheezing or shortness of air. Return to the ER if your symptoms are worsening. Follow-up with Dr. Quintanilla next week. Azithromycin 1 tablet every day for the next 4 days. All discharge instructions reviewed with patient and/or family. Voiced understanding. Scripts Prednisone (Prednisone) 20 Mg Tab 20 MG PO DAILY for 2 Days, #2 TAB 0 Refills Prov: TO GRAY 03/11/20 Azithromycin (Azithromycin) 250 Mg Tablet 250 MG PO DAILY, #4 TAB 0 Refills Prov: TO GRAY 03/11/20 Copy Copies To 1: DOUG QUINTANILLA DO TO GRAY Mar 11, 2020 06:57
[2020-03-11 06:59] LABS: BASOPHILS # (AUTO) 0.1 10^3/uL (0.0-0.1); BASOPHILS % (AUTO) 1 % (0-10); EOSINOPHILS # (AUTO) 0.2 10^3/uL (0.0-0.3); EOSINOPHILS % (AUTO) 2 % (0-10); HEMATOCRIT 33 % (35-52); HEMOGLOBIN 10.5 g/dL (11.5-16.0); LYMPHOCYTES # (AUTO) 0.8 10^3/uL (1.0-4.0); LYMPHOCYTES % (AUTO) 8 % (12-44); MEAN CORPUSCULAR HEMOGLOBIN 32 pg (25-34); MEAN CORPUSCULAR HGB CONC 32 g/dL (32-36); MEAN CORPUSCULAR VOLUME 101 fL (80-99); MEAN PLATELET VOLUME 9.8 fL (9.0-12.2); MONOCYTES # (AUTO) 0.4 10^3/uL (0.0-1.0); MONOCYTES % (AUTO) 4 % (0-12); NEUTROPHILS # (AUTO) 8.9 10^3/uL (1.8-7.8); NEUTROPHILS % (AUTO) 86 % (42-75); PLATELET COUNT 196 10^3/uL (130-400); WHITE BLOOD COUNT 10.4 10^3/uL (4.3-11.0)
[2020-03-11 07:03] LABS: ALBUMIN 3.8 GM/DL (3.2-4.5); CHLORIDE 108 MMOL/L (98-107); POTASSIUM 4.3 MMOL/L (3.6-5.0); SODIUM 143 MMOL/L (135-145)
[2020-03-11 07:05] LABS: CALCIUM 8.6 MG/DL (8.5-10.1)
[2020-03-11 07:06] LABS: GLUCOSE 111 MG/DL (70-105); TOTAL PROTEIN 7.1 GM/DL (6.4-8.2)
[2020-03-11 07:07] LABS: CARBON DIOXIDE 26 MMOL/L (21-32)
[2020-03-11 07:08] LABS: BILIRUBIN,TOTAL 0.3 MG/DL (0.1-1.0)
[2020-03-11 07:09] LABS: ALKALINE PHOSPHATASE 82 U/L (40-136); CREATININE SERUM 0.96 MG/DL (0.60-1.30); GFR ESTIMATED 58
[2020-03-11 07:10] LABS: BUN/CREATININE RATIO 25
[2020-03-11 07:12] LABS: ALANINE AMINOTRANSFERASE 24 U/L (0-55)
[2020-03-11] MEDS ORDERED: RT-ALBUTEROL/IPRATROPIUM 3 ML (DUONEB) VIAL INH ONE (07:45)
[2020-03-11] MEDS ORDERED: predniSONE 20 MG TAB PO ONE (07:45)
--- NOTE | 2020-03-11 07:54 | Diagnostic Imaging Report ---
Indication: Shortness of air, cough and congestion. Compared: 03/04/2020 Findings: Prominence of the cardiac silhouette unchanged from prior. There is some prominence of the perihilar lung markings as well as central vascularity and thickening of the central airways. No effusion or pneumothorax. Impression: Upper limits heart size, mild vascular congestion as well as perihilar bronchial cuffing. No focal consolidating pneumonia or acute pleural pathology however. Dictated by: Dictated on workstation # [id number]
[2020-03-11 08:11] LABS: LYMPHOCYTES % (MANUAL) 6 %; MONOCYTES % (MANUAL) 3 %; NEUTROPHILS % (MANUAL) 91 %; RBC MORPH NORMAL
[2020-03-11] MEDS ORDERED: PRD20T PO (08:17)
[2020-03-11] MEDS ORDERED: AZIT250T12 PO (08:17)
[2020-03-11] MEDS ORDERED: AZITHROMYCIN 250 MG TAB (ZITHROMAX) PO ONE (08:30)
[2020-03-11 08:38] VITALS: BP 140/64
== END 2020-03-11 08:45 | disposition home or self-care (01) ==
LOC: EDUNIT# 06:27 → ER 06:28
DX: J40 Bronchitis, not specified as acute or chronic (principal); J96.12 Chronic respiratory failure with hypercapnia; F41.9 Anxiety disorder, unspecified; I10 Essential (primary) hypertension; I25.10 Atherosclerotic heart disease of native coronary artery without angina pectoris; E78.00 Pure hypercholesterolemia, unspecified; K21.9 Gastro-esophageal reflux disease without esophagitis; E03.9 Hypothyroidism, unspecified; E11.9 Type 2 diabetes mellitus without complications; F32.9 Major depressive disorder, single episode, unspecified; Z20.828 Contact with and (suspected) exposure to other viral communicable diseases; Z82.49 Family history of ischemic heart disease and other diseases of the circulatory system; Z83.3 Family history of diabetes mellitus; Z80.9 Family history of malignant neoplasm, unspecified; Z95.5 Presence of coronary angioplasty implant and graft; Z88.0 Allergy status to penicillin; Z88.5 Allergy status to narcotic agent; Z88.8 Allergy status to other drugs, medicaments and biological substances; Z79.890 Hormone replacement therapy; Z79.82 Long term (current) use of aspirin; Z79.4 Long term (current) use of insulin
CPT/HCPCS: 71045; 80053; 82805; 84484; 85007; 85027; 86141; 87804; 93005; 94640; 99285; U0002; 36415; 87635

== ENCOUNTER 2020-03-13 11:12 | Emergency (ER) | payer MEDICARE, OTHER ==
[~2020-03-13] VITALS: Ht 157.5 cm; Wt 113.0 kg
[~2020-03-13 11:12] MED LIST changes: +AZIT250T12 PO
[2020-03-13] MEDS ORDERED: ONDANSETRON 4 MG/2 ML (SDV) Z0FRAN ONE (11:37)
[2020-03-13 12:00] LABS: BASOPHILS % (AUTO) 0 % (0-10); EOSINOPHILS % (AUTO) 0 % (0-10); HEMATOCRIT 32 % (35-52); HEMOGLOBIN 10.3 g/dL (11.5-16.0); LYMPHOCYTES # (AUTO) 0.3 10^3/uL (1.0-4.0); LYMPHOCYTES % (AUTO) 2 % (12-44); MEAN CORPUSCULAR HEMOGLOBIN 32 pg (25-34); MEAN CORPUSCULAR HGB CONC 32 g/dL (32-36); MEAN CORPUSCULAR VOLUME 100 fL (80-99); MEAN PLATELET VOLUME 9.8 fL (9.0-12.2); MONOCYTES # (AUTO) 0.4 10^3/uL (0.0-1.0); MONOCYTES % (AUTO) 3 % (0-12); NEUTROPHILS # (AUTO) 11.7 10^3/uL (1.8-7.8); NEUTROPHILS % (AUTO) 94 % (42-75); PLATELET COUNT 202 10^3/uL (130-400); WHITE BLOOD COUNT 12.4 10^3/uL (4.3-11.0)
[2020-03-13 12:03] LABS: ALBUMIN 3.7 GM/DL (3.2-4.5); CHLORIDE 106 MMOL/L (98-107); POTASSIUM 4.5 MMOL/L (3.6-5.0); SODIUM 140 MMOL/L (135-145)
[2020-03-13 12:05] LABS: CALCIUM 8.6 MG/DL (8.5-10.1)
[2020-03-13 12:06] LABS: GLUCOSE 153 MG/DL (70-105); TOTAL PROTEIN 7.1 GM/DL (6.4-8.2)
[2020-03-13 12:07] LABS: CARBON DIOXIDE 28 MMOL/L (21-32)
[2020-03-13 12:08] LABS: BILIRUBIN,TOTAL 0.6 MG/DL (0.1-1.0); FIBRIN DEGRADATION PRODUCTS 1.52 UG/ML (0.00-0.49); INR 1.1 (0.8-1.4); PROTHROMBIN TIME PATIENT 14.9 SEC (12.2-14.7)
[2020-03-13 12:09] LABS: ALKALINE PHOSPHATASE 88 U/L (40-136); CREATININE SERUM 0.94 MG/DL (0.60-1.30); GFR ESTIMATED 60
[2020-03-13 12:10] LABS: BUN/CREATININE RATIO 30
[2020-03-13 12:12] LABS: ALANINE AMINOTRANSFERASE 36 U/L (0-55)
[2020-03-13 12:14] LABS: BILIRUBIN,URINE NEGATIVE (NEGATIVE); CLARITY,URINE CLEAR; COLOR,URINE YELLOW; GLUCOSE, URINE (UA) NEGATIVE (NEGATIVE); KETONES,URINE NEGATIVE (NEGATIVE); LEUKOCYTE ESTERASE ,URINE NEGATIVE (NEGATIVE); NITRITE,URINE NEGATIVE (NEGATIVE); PH,URINE 5.5 (5-9); PROTEIN,URINE 1+ (NEGATIVE)
[2020-03-13 12:24] LABS: AMORPHOUS SEDIMENT,UR LARGE AMOR URATES /LPF; BACTERIA,URINE TRACE /HPF; RBC,URINE RARE /HPF; SQUAMOUS EPITHELIAL CELL,UR 0-2 /HPF
--- NOTE | 2020-03-13 12:35 | Diagnostic Imaging Report ---
INDICATION: Shortness of breath and syncope. TIME OF EXAM: 12:32 PM. COMPARISON: 03/11/2020. FINDINGS: The heart size is normal. There is central congestion. No definite infiltrate is identified. There is no effusion or pneumothorax. IMPRESSION: Central congestion. No acute infiltrate is detected. Dictated by: Dictated on workstation # [id number]
[2020-03-13] MEDS ORDERED: HOLD METFORMIN - RECEIVED CONTRAST 20 ML VIAL IV SCH (12:45)
[2020-03-13] MEDS ORDERED: NS 100 ML (IVPB) BAG IV ONE (12:45)
[2020-03-13] MEDS ORDERED: IOHEXOL 350 MG/ML 100 ML (OMNIPAQUE 350) VIAL IV ONE (12:45)
--- NOTE | 2020-03-13 13:18 | ED General ---
General Chief Complaint: Dizziness/Syncope Stated Complaint: SOB, SYNCOPE Nursing Triage Note: Pt to ed per ems, states she was on her way to the hospital to have a ct done and had a syncopal episode in her vehicle. States she has been sob, coughing for about a month, has been tested negative twice for covid. Nursing Sepsis Screen: No Definite Risk Source of Information: Patient Exam Limitations: No Limitations History of Present Illness Date Seen by Provider: Mar 13, 2020 Time Seen by Provider: 11:41 Initial Comments Here with report of syncopal episode while sitting in the car. She has been short of breath and coughing for quite some time (over a month). She has recently been seen on 03/11/2020 and had Covid testing at that time. That was negative. Her primary care provider ordered a CT of the chest and she was in route to the hospital for that and that is when she had the syncopal episode. Does report feeling weak and ill. Denies nausea or vomiting. Denies significant chest pain. Timing/Duration: Getting Worse, Other (1 month) Severity: Moderate Associated Systoms: Cough, Shortness of Air, Syncope, Weakness Allergies and Home Medications Allergies Coded Allergies: Penicillins (Verified Allergy, Unknown, 05/15/19) meperidine (Verified Allergy, Unknown, 09/06/19) morphine (Unverified Allergy, Unknown, 05/15/19) propoxyphene (Verified Allergy, Unknown, 05/15/19) topiramate (Verified Allergy, Unknown, 05/15/19) codeine (Verified Adverse Reaction, Unknown, UPSET STOMACH, 09/13/19) dapagliflozin (Verified Adverse Reaction, Unknown, yeast infection, 09/13/19) Home Medications Acetaminophen 500 Mg Tablet, 1,000 MG PO Q6H PRN for PAIN-MILD, (Reported) Acetaminophen/Diphenhydramine 1 Each Tablet, 1 EACH PO Q4H PRN for PAIN-MILD (1- 4) Prescribed by: MAGDY ZIEGLER on 10/07/19 5923 Amlodipine Besylate 10 Mg Tablet, 5 MG PO DAILY, (Reported) Aspirin 81 Mg Tablet.dr, 81 MG PO DAILY, (Reported) Atorvastatin Calcium 10 Mg Tablet, 10 MG PO DAILY, (Reported) Azithromycin 250 Mg Tablet, 250 MG PO DAILY Prescribed by: TO GRAY on 03/11/20 0817 Cetirizine HCl 10 Mg Tablet, 10 MG PO DAILY, (Reported) Citalopram Hydrobromide 10 Mg Tablet, 10 MG PO DAILY, (Reported) Cranberry Fruit Concentrate 500 Mg Capsule, 500 MG PO DAILY, (Reported) Cyanocobalamin 1,000 Mcg/Ml Inj, 1,000 MCG IM UD, (Reported) Cyclobenzaprine HCl 10 Mg Tablet, 10 MG PO PRN, (Reported) Dicyclomine HCl 10 Mg Capsule, 10 MG PO TID Prescribed by: MAGDY ZIEGLER on 10/16/19 1245 Diphenoxylate HCl/Atropine 1 Each Tablet, 1 EACH PO PRN, (Reported) Eszopiclone 2 Mg Tablet, 2 MG PO HS, (Reported) Fluticasone Propionate 16 Gm [place].susp, 2 SPRAYS NS HS, (Reported) Fluticasone Propionate 30 Gm Cream..g., 50 GM TP DAILY, (Reported) Gabapentin 100 Mg Capsule, 100 MG PO TID, (Reported) Insulin Degludec 200 Unit/1 Ml Insuln.pen, 12 UNITS SC BID, (Reported) Levothyroxine Sodium 125 Mcg Tablet, 125 MCG PO DAILY, (Reported) Lorazepam 1 Mg Tablet, 1 MG PO DAILY PRN for ANXIETY, (Reported) Losartan Potassium 50 Mg Tablet, 50 MG PO DAILY, (Reported) Magnesium Oxide 200 Mg Tablet, 400 MG PO DAILY, (Reported) Meclizine HCl 25 Mg Tablet, 25 MG PO TID, (Reported) Metoprolol Succinate 25 Mg Tab.er.24h, 25 MG PO DAILY, (Reported) Montelukast Sodium 10 Mg Tablet, 10 MG PO HS, (Reported) Ondansetron HCl 4 Mg Tablet, 4 MG PO UD, (Reported) Pantoprazole Sodium 40 Mg Tablet.dr, 40 MG PO DAILY, (Reported) Prednisone 20 Mg Tab, 20 MG PO DAILY Prescribed by: TO GRAY on 03/11/20 08 Sucralfate 1 Gm Tablet, 1 GM PO QID Prescribed by: MARILY PANDEY on 09/13/19 0907 Tramadol HCl 50 Mg Tablet, 50 MG PO Q4H PRN for PAIN-MODERATE, (Reported) Trazodone HCl 50 Mg Tablet, 50 MG PO HS, (Reported) Vit D3 & K/Berberine HCl/Hops 1 Each Tablet, 1 EACH PO DAILY, (Reported) Patient Home Medication List Home Medication List Reviewed: Yes Review of Systems Review of Systems Constitutional: see HPI; No chills, No fever EENTM: No nose congestion, No throat pain Respiratory: see HPI Cardiovascular: edema, syncope Gastrointestinal: No diarrhea, No nausea, No vomiting Genitourinary: decreased output; No pain : No Musculoskeletal: No back pain; muscle weakness Skin: no symptoms reported Psychiatric/Neurological: See HPI, Anxiety, Weakness All Other Systems Reviewed Negative Unless Noted: Yes Past Xaiwzzy-Vcyzje-Rjgcko Hx Past Med/Social Hx: Reviewed Nursing Past Med/Soc Hx Patient Social History Alcohol Use: Denies Use Recreational Drug Use: No Smoking Status: Never a Smoker 2nd Hand Smoke Exposure: No Recent Foreign Travel: No Contact w/Someone Who Travel: No Recent Infectious Disease Expo: No Recent Hopitalizations: No Immunizations Up To Date Tetanus Booster (TDap): Unknown Date of Pneumonia Vaccine: Feb 05, 2017 Date of Influenza Vaccine: Dec 22, 2019 Seasonal Allergies Seasonal Allergies: No Past Medical History Surgeries: Yes (FOOT, bilat CTR, carotid endartectomy, bilat TKR) Appendectomy, Coronary Stent, Gallbladder, Orthopedic, Thyroidectomy Respiratory: Yes (CPAP - 3L NC O2 ) Asthma, Sleep Apnea, COPD Currently Using CPAP: Yes Currently Using BIPAP: No Cardiac: Yes (STENT) Cardiomyopathy, Chronic Edema/Swelling, Coronary Artery Disease, High Cholesterol, Hypertension, Valvular Heart Disease Neurological: No 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 Disorders: No 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: 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 Sexually Transmitted Disease: No HIV/AIDS: No Genitourinary: No UTI-Chronic Gastrointestinal: Yes Colitis, Gastroesophageal Reflux Musculoskeletal: Yes (ARTHRITIS, spinal stenosis) Arthritis, Scoliosis Endocrine: Yes Diabetes, Insulin dep, Hypothyroidsim HEENT: No Cancer: No Psychosocial: Yes Anxiety, Depression Integumentary: No Blood Disorders: No Adverse Reaction/Blood Tranf: No Family Medical History Reviewed Nursing Family Hx Alzheimer's disease G8 SISTER Diabetes mellitus 19 FATHER Hypertension 19 FATHER 19 MOTHER Myocardial infarction 19 FATHER 19 MOTHER Neoplasm G8 SISTER No Pertinent Family Hx Physical Exam-Suspected Sepsis Physical Exam Vital Signs Vital Signs - First Documented 03/13/20 11:39 Temp 36.0 Pulse 92 Resp 20 B/P (MAP) 147/78 (101) Pulse Ox 99 O2 Delivery Nasal Cannula O2 Flow Rate 6.00 Capillary Refill : Less Than 3 Seconds Blood Pressure Mean: 101 Height, Weight, BMI Height: 5'4.00" Weight: 246lbs. 6.0oz. [id number]; 45.00 BMI Method:Stated General Appearance: WD/WN, Anxious, Chronically ill, Obese HEENT: PERRL/EOMI, Pharynx Normal Neck: Non Tender, Supple Respiratory: Lungs Clear, Normal Breath Sounds Cardiovascular: Regular Rate, Rhythm, No Murmur Gastrointestinal: Non Tender, Soft Back: Normal Inspection, No CVA Tenderness, No Vertebral Tenderness Extremity: Normal Range of Motion, Non Tender Neurologic/Psychiatric: Alert, Oriented x3 Skin: normal color, warm/dry Focused Exam Lactate Level 03/13/20 14:05: Lactic Acid Level 0.90 Lactic Acid Level Laboratory Tests Test 03/13/20 14:05 Lactic Acid Level 0.90 MMOL/L (0.50-2.00) Progress/Results/Core Measures Suspected Sepsis Recent Fever Within 48 Hours: No Infection Criteria Present: Suspected New Infection New/Unexplained Altered Menta: No Sepsis Screen: No Definite Risk SIRS Temperature: Pulse: 92 Respiratory Rate: 20 Laboratory Tests 03/13/20 11:32: White Blood Count 12.4H Blood Pressure 147 /78 Mean: 101 03/13/20 14:05: Lactic Acid Level 0.90 Laboratory Tests 03/13/20 11:32: Creatinine 0.94, INR Comment 1.1, Platelet Count 202, Total Bilirubin 0.6 Results/Orders Lab Results Laboratory Tests Test 03/13/20 11:32 03/13/20 11:53 03/13/20 11:59 03/13/20 14:05 Range/Units White Blood Count 12.4 H 4.3-11.0 10^3/uL Red Blood Count 3.19 L 3.80-5.11 10^6/uL Hemoglobin 10.3 L 11.5-16.0 g/dL Hematocrit 32 L 35-52 % Mean Corpuscular Volume 100 H 80-99 fL Mean Corpuscular Hemoglobin 32 25-34 pg Mean Corpuscular Hemoglobin Concent 32 32-36 g/dL Red Cell Distribution Width 12.9 10.0-14.5 % Platelet Count 202 130-400 10^3/uL Mean Platelet Volume 9.8 9.0-12.2 fL Immature Granulocyte % (Auto) 0 % Neutrophils (%) (Auto) 94 H 42-75 % Lymphocytes (%) (Auto) 2 L 12-44 % Monocytes (%) (Auto) 3 0-12 % Eosinophils (%) (Auto) 0 0-10 % Basophils (%) (Auto) 0 0-10 % Neutrophils # (Auto) 11.7 H 1.8-7.8 10^3/uL Lymphocytes # (Auto) 0.3 L 1.0-4.0 10^3/uL Monocytes # (Auto) 0.4 0.0-1.0 10^3/uL Eosinophils # (Auto) 0.0 0.0-0.3 10^3/uL Basophils # (Auto) 0.0 0.0-0.1 10^3/uL Immature Granulocyte # (Auto) 0.1 0.0-0.1 10^3/uL Prothrombin Time 14.9 H 12.2-14.7 SEC INR Comment 1.1 0.8-1.4 Activated Partial Thromboplast Time 32 24-35 SEC D-Dimer 1.52 H 0.00-0.49 UG/ML Sodium Level 140 135-145 MMOL/L Potassium Level 4.5 3.6-5.0 MMOL/L Chloride Level 106 98-107 MMOL/L Carbon Dioxide Level 28 21-32 MMOL/L Anion Gap 6 5-14 MMOL/L Blood Urea Nitrogen 28 H 7-18 MG/DL Creatinine 0.94 0.60-1.30 MG/DL Estimat Glomerular Filtration Rate 60 BUN/Creatinine Ratio 30 Glucose Level 153 H 70-105 MG/DL Calcium Level 8.6 8.5-10.1 MG/DL Corrected Calcium 8.8 8.5-10.1 MG/DL Total Bilirubin 0.6 0.1-1.0 MG/DL Aspartate Amino Transf (AST/SGOT) 29 5-34 U/L Alanine Aminotransferase (ALT/SGPT) 36 0-55 U/L Alkaline Phosphatase 88 40-136 U/L Troponin I < 0.028 <0.028 NG/ML C-Reactive Protein High Sensitivity 8.02 H 0.00-0.50 MG/DL Total Protein 7.1 6.4-8.2 GM/DL Albumin 3.7 3.2-4.5 GM/DL Procalcitonin 0.24 H <0.10 NG/ML Coronavirus 2019 (OMAR) Negative Negative Urine Color YELLOW Urine Clarity CLEAR Urine pH 5.5 5-9 Urine Specific [place] >=1.030 1.016-1.022 Urine Protein 1+ H NEGATIVE Urine Glucose (UA) NEGATIVE NEGATIVE Urine Ketones NEGATIVE NEGATIVE Urine Nitrite NEGATIVE NEGATIVE Urine Bilirubin NEGATIVE NEGATIVE Urine Urobilinogen 0.2 < = 1.0 MG/DL Urine Leukocyte Esterase NEGATIVE NEGATIVE Urine RBC (Auto) TRACE-I NEGATIVE Urine RBC RARE /HPF Urine WBC 2-5 /HPF Urine Squamous Epithelial Cells 0-2 /HPF Urine Crystals PRESENT H /LPF Urine Amorphous Sediment LARGE MICHELET URATES H /LPF Urine Bacteria TRACE /HPF Urine Casts NONE /LPF Urine Mucus NEGATIVE /LPF Urine Culture Indicated CULTURE PENDING Lactic Acid Level 0.90 0.50-2.00 MMOL/L Micro Results Microbiology 03/13/20 Influenza Types A,B Antigen (GIANLUCA) - Final, Complete My Orders Orders - SHARLA DOWNS MD Ondansetron Injection (Zofran Injectio (03/13/20 11:37) Cbc With Automated Diff (03/13/20 11:50) Comprehensive Metabolic Panel (03/13/20 11:50) Blood Culture (03/13/20 11:50) Sputum Culture (03/13/20 11:50) Urinalysis (03/13/20 11:50) Urine Culture (03/13/20 11:50) Protime With Inr (03/13/20 11:50) Partial Thromboplastin Time (03/13/20 11:50) Chest 1 View, Ap/Pa Only (03/13/20 11:50) Ed Iv/Invasive Line Start (03/13/20 11:50) Ed Iv/Invasive Line Start (03/13/20 11:50) Ekg Tracing (03/13/20 11:50) Troponin I (03/13/20 11:50) Vital Signs Adult Sepsis Patie Q15M (03/13/20 11:50) O2 (03/13/20 11:50) Remove Rings In Anticipation O (03/13/20 11:50) Lactic Acid Analyzer (03/13/20 11:50) Fibrin Degradation Products (03/13/20 11:50) Procalcitonin (Pct) (03/13/20 11:50) Hs C Reactive Protein (03/13/20 11:50) Influenza A And B Antigens (03/13/20 11:50) Covid 19 Inhouse Test (03/13/20 11:50) Ct Angio Chest W (03/13/20 12:38) Iohexol Injection (Omnipaque 350 Mg/Ml 1 (03/13/20 12:45) Received Contrast (Hold Metformin- Contr (03/13/20 12:45) Ns (Ivpb) (Sodium Chloride 0.9% Ivpb Bag (03/13/20 12:45) Us Venous Lower Ext Mitzi (03/13/20 15:29) Doxycycline Hyclate Tablet (Vibramycin T (03/13/20 16:39) Albuterol Inhaler (Ventolin Hfa) (03/13/20 16:39) Prednisone Tablet (Deltasone Tablet) (03/13/20 16:45) Medications Given in ED Current Medications Medications Dose Ordered Sig/Katrina Route Start Time Stop Time Status Last Admin Dose Admin Iohexol 100 ml ONCE ONCE IV 03/13/20 12:45 03/13/20 12:54 DC 03/13/20 13:26 84 ML Ondansetron HCl 4 mg STK-MED ONCE .ROUTE 03/13/20 11:37 03/13/20 11:41 DC 03/13/20 11:44 4 MG Sodium Chloride 100 ml ONCE ONCE IV 03/13/20 12:45 03/13/20 12:54 DC 03/13/20 13:26 80 ML Vital Signs/I&O 03/13/20 11:39 Temp 36.0 Pulse 92 Resp 20 B/P (MAP) 147/78 (101) Pulse Ox 99 O2 Delivery Nasal Cannula O2 Flow Rate 6.00 Capillary Refill : Less Than 3 Seconds Blood Pressure Mean: 101 Progress Note : Progress Note Seen and evaluated. IV, labs, EKG, checks x-ray, UA, blood cultures and lactic acid ordered. We will repeat Covid testing via rapid test. 1318: We have ordered CT angiogram of the chest to rule out PE due to elevated D-dimer. LR 1 L bolus ordered. Monitor patient. 1640: CT angiogram did not show PE. There is question of groundglass opacities which may represent atypical pneumonia. Patient is currently on azithromycin. We will change that to doxycycline and extend for 10 days. Prednisone 40 mg p.o. given now. We will initiate Medrol Dosepak outpatient. Bilateral lower extremity ultrasound done and is negative for DVT. Overall no significant findings otherwise. This was discussed with the patient. Patient is complaining of wheezing. Albuterol MDI via spacer 2 puffs given now and sent home with her. She states she has nebulizer at home and she will continue that at home. She is to follow-up with Dr. Sewell. I will send a copy of the chart to him. Discharged home with return precautions. Patient verbalized understanding of instructions and agreement with plan. I did review the case with the on-call hospitalist. We reviewed laboratory and radiology findings. No acute needs for admission. Outpatient therapy indicated and I agree. This was discussed with the patient who agreed. ECG Initial ECG Impression Date: Mar 13, 2020 Initial ECG Impression Time: 11:33 Initial ECG Rate: 93 Initial ECG Rhythm: Normal Sinus Initial ECG Comparisson: Unchanged Comment Sinus rhythm with normal axis. Left atrial abnormality noted. No evidence of ST elevation [place]. Interpreted by me. Diagnostic Imaging Diagonstic Imaging: CT Plain Films/CT/US/NM/MRI: chest Comments [facility] [place], [place] NAME[facility] REC#: [id number] PT STATUS: REG ER : 1955 PHYSICIAN: SHARLA DOWNS MD ADMIT DATE: 03/13/20/ER Draft Date of Exam:03/13/20 CHEST 1 VIEW, AP/PA ONLY INDICATION: Shortness of breath and syncope. TIME OF EXAM: 12:32 PM. COMPARISON: 03/11/2020. FINDINGS: The heart size is normal. There is central congestion. No definite infiltrate is identified. There is no effusion or pneumothorax. IMPRESSION: Central congestion. No acute infiltrate is detected. Dictated on workstation # [id number] Dict: 03/13/20 1232 Trans: 03/13/20 1235 [id number] Interpreted by: BERENICE WHITE MD Electronically signed by: Diagonstic Imaging: CT Plain Films/CT/US/NM/MRI: chest Comments [facility]. [place], [place] NAME: RUDDY GARLAND [facility] REC#: [id number] PT STATUS: REG ER : 1955 PHYSICIAN: SHARLA DOWNS MD ADMIT DATE: 03/13/20/ER Signed Date of Exam:03/13/20 CT ANGIO CHEST W INDICATION: Syncope, shortness of breath, and cough. TECHNIQUE: Multiple contiguous axial images were obtained through the chest after uneventful bolus administration of intravenous contrast. 3D reconstructed CTA MIP acquisitions were also performed. Auto Exposure Controls were utilized during the CT exam to meet ALARA standards for radiation dose reduction. COMPARISON: 02/23/2018. FINDINGS: There is no evidence of aortic dissection or aneurysm. There are mild atherosclerotic changes of the aorta. The pulmonary parenchymal vessels are well-opacified with no appreciable pulmonary emboli. There is cardiomegaly. There are extensive mitral valvular calcifications. There are some coronary artery calcifications. There is a minimal trace of pericardial fluid. There are small bilateral pleural effusions. Lung parenchymal windows demonstrate patchy groundglass infiltrates throughout both lungs with some bibasilar atelectasis. There are some scattered borderline sized nodes in the mediastinum. The visualized portions of the upper abdomen are unremarkable. The patient has had previous cholecystectomy. IMPRESSION: Cardiomegaly. There are mitral valvular calcifications as well as coronary artery calcifications. There are some borderline size nodes in the mediastinum. There are small bilateral pleural effusions with a trace of pericardial fluid. There are some patchy groundglass infiltrates throughout both lungs which are nonspecific but could represent an atypical pneumonia. Correlate with clinical findings. Dictated by: Dictated on workstation # [id number] Dict: 03/13/20 1334 Trans: 03/13/20 1350 [id number] Interpreted by: JF BENNETT MD Electronically signed by: JF BENNETT MD 03/13/20 1350 Diagonstic Imaging: Ultrasound Plain Films/CT/US/NM/MRI: leg Comments [facility] [place] [place] NAME: RUDDY GARLAND [facility] REC#: [id number] PT STATUS: REG ER : 1955 PHYSICIAN: SHARLA DOWNS MD ADMIT DATE: 03/13/20/ER Draft Date of Exam:03/13/20 US VENOUS LOWER EXT MITZI EXAMINATION: US Venous Lower Ext Mitzi. TECHNIQUE: Multiple Real-time grayscale images were obtained over the lower extremities in various projections bilaterally. Additional duplex Doppler and color Doppler images were also obtained. HISTORY: Elevated d-dimer. FINDINGS: No comparison available. Right: The common femoral, superficial femoral, popliteal, peroneal, posterior tibial, and greater saphenous veins demonstrate normal flow, augmentation, compressibility. Left: The common femoral, superficial femoral, popliteal, peroneal, posterior tibial, and greater saphenous veins demonstrate normal flow, augmentation, compressibility. IMPRESSION: No findings of deep venous thrombosis within the bilateral lower extremities. Dictated on workstation # [id number] Dict: 03/13/20 1625 Trans: 03/13/20 1629 [id number] Interpreted by: AMARI HIGGINS DO Electronically signed by: Departure Impression Primary Impression: Atypical pneumonia Disposition: HOME, SELF-CARE Condition: Improved Departure-Patient Inst. Decision time for Depature: 16:44 Referrals: DOUG SEWELL DO (PCP/Family) Primary Care Physician Patient Instructions: Atypical Pneumonia (Mycoplasma and Viral) (DC) Add. Discharge Instructions: All discharge instructions reviewed with patient and/or family. Voiced understanding. Take medications as directed. Stop azithromycin and start doxycycline. Continue breathing treatments as previously prescribed. Take new steroids as prescribed. Follow-up with your doctor for recheck and further evaluation. Return for worse pain, fever, vomiting, weakness, rhythm problems or other concerns as needed. Scripts Doxycycline Hyclate (Doxycycline Hyclate) 100 Mg Tablet 100 MG PO BID, #19 TAB 0 Refills Prov: SHARLA DOWNS MD 03/13/20 Methylprednisolone (Methylprednisolone Dose Pack) 4 Mg Tab.ds.pk 4 MG PO UD for 6 Days, #21 PKG PER DOSE PACK INSTRUCTIONS Prov: SHARLA DOWNS MD 03/13/20 Copy Copies To 1: DOUG SEWELL TIMOTHY D MD Mar 13, 2020 13:18
--- NOTE | 2020-03-13 13:44 | Diagnostic Imaging Report ---
INDICATION: Syncope, shortness of breath, and cough. TECHNIQUE: Multiple contiguous axial images were obtained through the chest after uneventful bolus administration of intravenous contrast. 3D reconstructed CTA MIP acquisitions were also performed. Auto Exposure Controls were utilized during the CT exam to meet ALARA standards for radiation dose reduction. COMPARISON: 02/23/2018. FINDINGS: There is no evidence of aortic dissection or aneurysm. There are mild atherosclerotic changes of the aorta. The pulmonary parenchymal vessels are well-opacified with no appreciable pulmonary emboli. There is cardiomegaly. There are extensive mitral valvular calcifications. There are some coronary artery calcifications. There is a minimal trace of pericardial fluid. There are small bilateral pleural effusions. Lung parenchymal windows demonstrate patchy groundglass infiltrates throughout both lungs with some bibasilar atelectasis. There are some scattered borderline sized nodes in the mediastinum. The visualized portions of the upper abdomen are unremarkable. The patient has had previous cholecystectomy. IMPRESSION: Cardiomegaly. There are mitral valvular calcifications as well as coronary artery calcifications. There are some borderline size nodes in the mediastinum. There are small bilateral pleural effusions with a trace of pericardial fluid. There are some patchy groundglass infiltrates throughout both lungs which are nonspecific but could represent an atypical pneumonia. Correlate with clinical findings. Dictated by: Dictated on workstation # [id number]
--- NOTE | 2020-03-13 16:29 | Diagnostic Imaging Report ---
EXAMINATION: US Venous Lower Ext Brendon. TECHNIQUE: Multiple Real-time grayscale images were obtained over the lower extremities in various projections bilaterally. Additional duplex Doppler and color Doppler images were also obtained. HISTORY: Elevated d-dimer. FINDINGS: No comparison available. Right: The common femoral, superficial femoral, popliteal, peroneal, posterior tibial, and greater saphenous veins demonstrate normal flow, augmentation, compressibility. Left: The common femoral, superficial femoral, popliteal, peroneal, posterior tibial, and greater saphenous veins demonstrate normal flow, augmentation, compressibility. IMPRESSION: No findings of deep venous thrombosis within the bilateral lower extremities. Dictated by: Dictated on workstation # [id number]
[2020-03-13] MEDS ORDERED: DOXYCYCLINE 100 MG (VIBRAMYCIN) TABLET PO STA (16:39)
[2020-03-13] MEDS ORDERED: RT-ALBUTEROL INHALER HFA (VENTOLIN HFA) 18 GM IH STA (16:39)
[2020-03-13] MEDS ORDERED: predniSONE 20 MG TAB PO ONE (16:45)
[2020-03-13] MEDS ORDERED: DOXY100T2 PO (16:50)
[2020-03-13] MEDS ORDERED: METH4TAB10 PO (16:50)
[2020-03-13 17:18] VITALS: BP 169/97
== END 2020-03-13 17:18 | disposition home or self-care (01) ==
LOC: EDUNIT# 11:12 → ER 11:13
DX: J18.9 Pneumonia, unspecified organism (principal); I10 Essential (primary) hypertension; E11.9 Type 2 diabetes mellitus without complications; I25.10 Atherosclerotic heart disease of native coronary artery without angina pectoris; E78.00 Pure hypercholesterolemia, unspecified; K21.9 Gastro-esophageal reflux disease without esophagitis; F41.9 Anxiety disorder, unspecified; F32.9 Major depressive disorder, single episode, unspecified; E03.9 Hypothyroidism, unspecified; J44.9 Chronic obstructive pulmonary disease, unspecified; G47.30 Sleep apnea, unspecified; Z88.0 Allergy status to penicillin; Z88.5 Allergy status to narcotic agent; Z88.8 Allergy status to other drugs, medicaments and biological substances; Z95.5 Presence of coronary angioplasty implant and graft; Z96.653 Presence of artificial knee joint, bilateral; Z99.89 Dependence on other enabling machines and devices; Z79.82 Long term (current) use of aspirin; Z79.51 Long term (current) use of inhaled steroids; Z79.4 Long term (current) use of insulin; Z79.890 Hormone replacement therapy
CPT/HCPCS: 71045; 71275; 80053; 81000; 83605; 84145; 84484; 85025; 85379; 85610; 85730; 86141; 87040; 87088; 87804; 93005; 93970; 99284; U0002; 36415; 87635

== ENCOUNTER 2020-05-15 09:38 | Outpatient (RCR) | payer MEDICARE, OTHER ==
[~2020-05-15] VITALS: Ht 168 cm; Wt 143.0 kg
[~2020-05-15 09:38] MED LIST changes: -CIPR500T4 PO; +CIPR500T5 PO; +METH4TAB10 PO; +MONT10TA32 PO; -MONT10TA97 PO
[2020-05-15 10:00] VITALS: BP 133/71
[2020-05-15 10:25] LABS: BASOPHILS # (AUTO) 0.1 10^3/uL (0.0-0.1); BASOPHILS % (AUTO) 1 % (0-10); EOSINOPHILS # (AUTO) 0.1 10^3/uL (0.0-0.3); EOSINOPHILS % (AUTO) 1 % (0-10); HEMATOCRIT 35 % (35-52); HEMOGLOBIN 11.2 g/dL (11.5-16.0); LYMPHOCYTES % (AUTO) 10 % (12-44); MEAN CORPUSCULAR HEMOGLOBIN 32 pg (25-34); MEAN CORPUSCULAR HGB CONC 32 g/dL (32-36); MEAN CORPUSCULAR VOLUME 98 fL (80-99); MONOCYTES # (AUTO) 0.4 10^3/uL (0.0-1.0); MONOCYTES % (AUTO) 4 % (0-12); NEUTROPHILS % (AUTO) 85 % (42-75); PLATELET COUNT 198 10^3/uL (130-400); WHITE BLOOD COUNT 10.7 10^3/uL (4.3-11.0)
[2020-05-15 10:38] LABS: CALCIUM 8.8 MG/DL (8.5-10.1); POTASSIUM 4.8 MMOL/L (3.6-5.0)
[2020-05-15] MEDS ORDERED: CALC-250 PO (13:14)
[2020-05-15] MEDS ORDERED: LORA-405 PO (13:14)
[2020-05-15] MEDS ORDERED: RT-ALBUINH IH (13:14)
[2020-05-15] MEDS ORDERED: LANS30TA9 PO (13:14)
== END 2020-05-15 13:19 | disposition home or self-care (01) ==
LOC: PREOP 09:38
PROVIDERS: ATTEND Otolaryngology Otolaryngology/Facial Plastic Surgery
DX: Z01.812 Encounter for preprocedural laboratory examination (principal); J34.89 Other specified disorders of nose and nasal sinuses; R04.0 Epistaxis
CPT/HCPCS: 36415; 80048; 85025

== ENCOUNTER 2020-05-18 07:40 | Day surgery (SDC) | payer MEDICARE, OTHER ==
[~2020-05-18] VITALS: Ht 168 cm; Wt 143.0 kg
[~2020-05-18 07:40] MED LIST changes: +LANS30TA9 PO; +LORA-405 PO
[2020-05-18 08:20] VITALS: BP 151/72
[2020-05-18] MEDS ORDERED: LACTATED RINGERS 1,000 ML IV PRN (08:30)
--- NOTE | 2020-05-18 08:33 | Progress Note-Pre Operative ---
Pre-Operative Progress Note H&P Reviewed The H&P was reviewed, patient examined and no changes noted. Date Seen by Provider: May 18, 2020 Time Seen by Provider: 08:30 Date H&P Reviewed: May 18, 2020 Time H&P Reviewed: 08:30 Pre-Operative Diagnosis: Nasospetal Perforation with Recurrent Epistaxis CARY VENEGAS MD May 18, 2020 08:33
[2020-05-18] MEDS ORDERED: BSS 15 ML ONE (08:47)
[2020-05-18] MEDS ORDERED: COCAINE HCL 4% 2 ML SYR ONE (08:47)
[2020-05-18] MEDS ORDERED: PHENYLEPHRINE 0.5% NASAL SPR (NEO-SYNEPHRINE) REG ONE (08:48)
[2020-05-18] MEDS ORDERED: LIDOCAINE/EPI 1%-1:100,000 (XYLOCAINE) 50 ML ONE (08:48)
[2020-05-18] MEDS ORDERED: proPOfol 200 MG/20 ML (DIPRIVAN) VIAL IV ONE (09:04)
[2020-05-18] MEDS ORDERED: MIDAZOLAM 2 MG/2 ML (VERSED) VIAL ONE ×2 (09:04→09:15)
[2020-05-18 09:37] VITALS: BP 134/64
--- NOTE | 2020-05-18 09:38 | Progress Note-Post Operative ---
Post-Operative Progess Note Surgeon (s)/Senior Software Quality Engineer (s) Surgeon CARY VENEGAS MD Senior Software Quality Engineer n/a Pre-Operative Diagnosis Nasospetal Perforation with Recurrent Epistaxis Post-Operative Diagnosis same Post-Op Procedure Note Date of Procedure: May 18, 2020 Name of Procedure Performed: Insertion of Nasoseptal Button Description & Findings Description and Findings: n/a Anesthesia Type local Estimated Blood Loss minimal Packing none. Specimen(s) collected/removed none CARY VENEGAS MD May 18, 2020 09:38
[2020-05-18] MEDS ORDERED: D5 1/2 NS W/KCL 20 MEQ/L 1,000 ML IV SCH (09:45)
[2020-05-18] MEDS ORDERED: PROMETHAZINE INJ 25 MG/ML (PHENERGAN) AMP IVP PRN (09:45)
[2020-05-18] MEDS ORDERED: ACETAMINOPHEN 325 MG TABLET PO PRN (09:45)
[2020-05-18 09:50] VITALS: BP 148/67
[2020-05-18 10:20] VITALS: BP 138/87
--- NOTE | 2020-05-22 07:19 | Anesthesia-General Post-Op ---
MAC Significant Intra-Op Events Notes addendum 05-18-20 at 1030 Patient Condition Mental Status/LOC: Same as Preop Cardiovascular: Satisfactory Nausea/Vomiting: Absent Respiratory: Satisfactory Pain: Controlled Complications: Absent Post Op Complications Complications None Follow Up Care/Instructions Patient Instructions None needed. Anesthesiology Discharge Order Discharge Order Patient is doing well, no complaints, stable vital signs, no apparent adverse anesthesia problems. No complications reported per nursing. ENRIQUE GALVAN CRNA May 22, 2020 07:19
== END 2020-05-18 10:20 | disposition home or self-care (01) ==
LOC: SDC 07:40
PROVIDERS: ATTEND Otolaryngology Otolaryngology/Facial Plastic Surgery
DX: R04.0 Epistaxis (principal); J34.89 Other specified disorders of nose and nasal sinuses; I10 Essential (primary) hypertension; J44.9 Chronic obstructive pulmonary disease, unspecified; F41.9 Anxiety disorder, unspecified; F32.9 Major depressive disorder, single episode, unspecified; Z79.899 Other long term (current) drug therapy; Z79.51 Long term (current) use of inhaled steroids; Z88.0 Allergy status to penicillin; Z88.5 Allergy status to narcotic agent; Z88.1 Allergy status to other antibiotic agents; Z20.822 Contact with and (suspected) exposure to COVID-19
CPT/HCPCS: 30220; 82962; 87081; U0002; 87635

== ENCOUNTER → 2020-05-25 | Outpatient (CLI) | payer MEDICARE, OTHER ==
[2020-05-25 12:58] LABS: ABG BASE EXCESS 4.8 MMOL/L (-2.5-2.5); ABG OXYGEN SATURATION 95 % (94-100); ABG PCO2 48 MMHG (35-45); ABG PO2 79 MMHG (79-93); ABG TCO2 30.8 MMOL/L (21.0-31.0)
[2020-05-25 12:59] LABS: INSPIRED O2 3 L; VENTILATOR NO
== END ==
LOC: RT 12:21
PROVIDERS: ATTEND Internal Medicine Critical Care Medicine
DX: J44.9 Chronic obstructive pulmonary disease, unspecified (principal)
CPT/HCPCS: 82805

== ENCOUNTER 2020-06-20 06:23 | Observation (INO) | payer MEDICARE, OTHER ==
[~2020-06-20] VITALS: Ht 163.5 cm; Wt 113.0 kg
[2020-06-20] MEDS ORDERED: RT-ALBUTEROL INHALER HFA (VENTOLIN HFA) 18 GM IH ONE (06:45)
--- NOTE | 2020-06-20 06:55 | ED Respiratory ---
General Chief Complaint: Respiratory Problems Stated Complaint: SOA Nursing Triage Note: PATIENT REPORTS INCREASE OF SOA X4 DAYS ESPECIALLY WITH EXERSION, BODY ACHES, COUGHING STARTED YESTERDAY, AND CHEST PAIN. Source: patient Exam Limitations: no limitations History of Present Illness Date Seen by Provider: Jun 20, 2020 Time Seen by Provider: 06:25 Initial Comments This 64-year-old woman with known coronary artery disease, CHF, and COPD dependent on nasal cannula at 2 L/min presents to the emergency room with flulike symptoms including cough, chest discomfort, generalized myalgia and arthralgia, and lower extremity edema. She has been having oxygen desaturations into the 70s even on her nasal cannula with exertion. Oxygen saturation dropped to the upper 70s while ambulating to the bathroom earlier this morning. Symptoms have been present since June 17. Cough started yesterday. Dr. Quintanilla is her primary care provider. Dr. Hand is her grievance and appeals specialist. Dr. Gavin is her lead teacher. Dr. Rajan is her ENT (she has nasal buttons). She denies temperature exceeding 100 degrees. She is at least 3 weeks past her second dose of COVID-19 vaccine. Allergies and Home Medications Allergies Coded Allergies: Penicillins (Verified Allergy, Unknown, 05/15/19) meperidine (Verified Allergy, Unknown, 09/06/19) morphine (Unverified Allergy, Unknown, 05/15/19) propoxyphene (Verified Allergy, Unknown, 05/15/19) topiramate (Verified Allergy, Unknown, 05/15/19) codeine (Verified Adverse Reaction, Unknown, UPSET STOMACH, 09/13/19) dapagliflozin (Verified Adverse Reaction, Unknown, yeast infection, 09/13/19) Home Medications Acetaminophen 500 Mg Tablet, 1,000 MG PO Q6H PRN for PAIN-MILD, (Reported) Albuterol Sulfate 1 Puff Puff, 2 PUFF IH Q4H PRN for WHEEZING, (Reported) 1 PUFF = 90 MCG Aspirin 81 Mg Tablet.dr, 81 MG PO DAILY, (Reported) Atorvastatin Calcium 10 Mg Tablet, 10 MG PO DAILY, (Reported) Cetirizine HCl 10 Mg Tablet, 10 MG PO DAILY, (Reported) Cholecalciferol (Vitamin D3) 125 Mcg Tablet, 125 MCG PO DAILY, (Reported) Cyclobenzaprine HCl 10 Mg Tablet, 10 MG PO Q8H PRN for MUSCLE SPASMS, (Reported) Diphenoxylate HCl/Atropine 1 Each Tablet, 1 EACH PO PRN, (Reported) Eszopiclone 2 Mg Tablet, 2 MG PO HS, (Reported) Insulin Degludec 200 Unit/1 Ml Insuln.pen, 70 UNITS SC DAILY@1200, (Reported) Lansoprazole 30 Mg Tab.rap.dr, 30 MG PO DAILY, (Reported) Levothyroxine Sodium 125 Mcg Tablet, 125 MCG PO DAILY, (Reported) Lorazepam 1 Mg Tablet, 1 MG PO Q8H PRN for ANXIETY, (Reported) Losartan Potassium 50 Mg Tablet, 50 MG PO HS, (Reported) Metoprolol Succinate 25 Mg Tab.er.24h, 25 MG PO DAILY, (Reported) Montelukast Sodium 10 Mg Tablet, 10 MG PO HS, (Reported) Pantoprazole Sodium 40 Mg Tablet.dr, 40 MG PO DAILY, (Reported) Trazodone HCl 50 Mg Tablet, 50 MG PO HS, (Reported) Patient Home Medication List Home Medication List Reviewed: Yes Review of Systems Review of Systems Constitutional: see HPI EENTM: see HPI Respiratory: see HPI Cardiovascular: see HPI Gastrointestinal: no symptoms reported Genitourinary: no symptoms reported : No Musculoskeletal: see HPI Skin: no symptoms reported Psychiatric/Neurological: No Symptoms Reported Hematologic/Lymphatic: No Symptoms Reported Immunological/Allergic: no symptoms reported Past Iywrttv-Rfbnlv-Euhywm Hx Past Med/Social Hx: Reviewed Nursing Past Med/Soc Hx Patient Social History Alcohol Use: Denies Use Smoking Status: Never a Smoker 2nd Hand Smoke Exposure: No Recent Infectious Disease Expo: No Recent Hopitalizations: No Immunizations Up To Date Tetanus Booster (TDap): Unknown Date of Pneumonia Vaccine: Feb 05, 2017 Date of Influenza Vaccine: Dec 12, 2019 Seasonal Allergies Seasonal Allergies: No Past Medical History Surgeries: Yes (FOOT, bilat CTR, carotid endartectomy, bilat TKR) Appendectomy, Coronary Stent, Gallbladder, Orthopedic, Thyroidectomy Respiratory: Yes (CPAP - 3L NC O2 ) Asthma, Sleep Apnea, COPD Currently Using CPAP: Yes Currently Using BIPAP: No Cardiac: Yes (STENT) Cardiomyopathy, Chronic Edema/Swelling, Coronary Artery Disease, High Cholesterol, Hypertension, Valvular Heart Disease Neurological: No : No 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 Sexually Transmitted Disease: No HIV/AIDS: No Genitourinary: No UTI-Chronic Gastrointestinal: Yes Colitis, Gastroesophageal Reflux Musculoskeletal: Yes (ARTHRITIS, spinal stenosis) Arthritis, Scoliosis Endocrine: Yes Diabetes, Insulin dep, Hypothyroidsim HEENT: Yes (nosebleeds) Cancer: No Psychosocial: Yes Anxiety, Depression Integumentary: No Blood Disorders: No Adverse Reaction/Blood Tranf: No Family Medical History Alzheimer's disease G8 SISTER Diabetes mellitus 19 FATHER Hypertension 19 FATHER 19 MOTHER Myocardial infarction 19 FATHER 19 MOTHER Neoplasm G8 SISTER No Pertinent Family Hx Physical Exam Vital Signs - First Documented 06/20/20 06/20/20 06:30 06:31 Temp 37.4 Pulse 97 Resp 24 B/P (MAP) 175/86 (115) Pulse Ox 99 O2 Delivery Nasal Cannula O2 Flow Rate 5.00 Capillary Refill : Less Than 3 Seconds Height: 5'4.00" Weight: 246lbs. 6.0oz. [id number]; 42.00 BMI Method:Stated General Appearance: WD/WN, mild distress, obese HEENT: normal ENT inspection, other (Oropharynx somewhat dry. Nasal buttons on the septum bilaterally.) Neck: normal inspection, other (No JVD) Respiratory: no respiratory distress, no accessory muscle use, wheezing (Slight), other (Reasonably good air movement) Cardiovascular: regular rate, rhythm, other (Tender pitting edema of the lower extremities, equal bilaterally) Gastrointestinal: normal bowel sounds, non tender, soft Extremities: pedal edema, swelling, other (Edema is tender) Neurologic/Psychiatric: visual display associate II-XII nml as tested, no motor/sensory deficits, alert, normal mood/affect, oriented x 3 Skin: normal color, warm/dry Progress/Results/Core Measures Suspected Sepsis Recent Fever Within 48 Hours: No Infection Criteria Present: None New/Unexplained Altered Menta: No Sepsis Screen: No Definite Risk SIRS Temperature: Pulse: 97 Respiratory Rate: 24 Laboratory Tests 06/20/20 07:19: White Blood Count 10.6 Blood Pressure 175 /86 Mean: 115 Laboratory Tests 06/20/20 06:50: INR Comment 1.0 06/20/20 07:19: Creatinine 0.98, Platelet Count 168, Total Bilirubin 0.4 Results/Orders Lab Results Laboratory Tests Test 06/20/20 06:35 06/20/20 06:50 06/20/20 07:19 Range/Units Coronavirus 2019 ([facility]) Not Detected Not Detecte Prothrombin Time 13.4 12.2-14.7 SEC INR Comment 1.0 0.8-1.4 Activated Partial Thromboplast Time 28 24-35 SEC D-Dimer 1.11 H 0.00-0.49 UG/ML White Blood Count 10.6 4.3-11.0 10^3/uL Red Blood Count 3.28 L 3.80-5.11 10^6/uL Hemoglobin 10.1 L 11.5-16.0 g/dL Hematocrit 33 L 35-52 % Mean Corpuscular Volume 101 H 80-99 fL Mean Corpuscular Hemoglobin 31 25-34 pg Mean Corpuscular Hemoglobin Concent 31 L 32-36 g/dL Red Cell Distribution Width 13.0 10.0-14.5 % Platelet Count 168 130-400 10^3/uL Mean Platelet Volume 9.8 9.0-12.2 fL Immature Granulocyte % (Auto) 0 % Neutrophils (%) (Auto) 86 H 42-75 % Lymphocytes (%) (Auto) 7 L 12-44 % Monocytes (%) (Auto) 4 0-12 % Eosinophils (%) (Auto) 2 0-10 % Basophils (%) (Auto) 1 0-10 % Neutrophils # (Auto) 9.1 H 1.8-7.8 10^3/uL Lymphocytes # (Auto) 0.7 L 1.0-4.0 10^3/uL Monocytes # (Auto) 0.5 0.0-1.0 10^3/uL Eosinophils # (Auto) 0.2 0.0-0.3 10^3/uL Basophils # (Auto) 0.1 0.0-0.1 10^3/uL Immature Granulocyte # (Auto) 0.0 0.0-0.1 10^3/uL Neutrophils % (Manual) 87 % Lymphocytes % (Manual) 7 % Monocytes % (Manual) 3 % Eosinophils % (Manual) 3 % Blood Morphology Comment NORMAL Sodium Level 140 135-145 MMOL/L Potassium Level 4.5 3.6-5.0 MMOL/L Chloride Level 104 98-107 MMOL/L Carbon Dioxide Level 24 21-32 MMOL/L Anion Gap 12 5-14 MMOL/L Blood Urea Nitrogen 12 7-18 MG/DL Creatinine 0.98 0.60-1.30 MG/DL Estimat Glomerular Filtration Rate 57 BUN/Creatinine Ratio 12 Glucose Level 129 H 70-105 MG/DL Calcium Level 8.5 8.5-10.1 MG/DL Corrected Calcium 8.9 8.5-10.1 MG/DL Magnesium Level 1.9 1.6-2.4 MG/DL Total Bilirubin 0.4 0.1-1.0 MG/DL Aspartate Amino Transf (AST/SGOT) 16 5-34 U/L Alanine Aminotransferase (ALT/SGPT) 25 0-55 U/L Alkaline Phosphatase 110 40-136 U/L Lactate Dehydrogenase 315 H 125-220 U/L Myoglobin 61.2 10.0-92.0 NG/ML Troponin I < 0.028 <0.028 NG/ML C-Reactive Protein High Sensitivity 9.56 H 0.00-0.50 MG/DL B-Type Natriuretic Peptide 694.2 H <100.0 PG/ML Total Protein 6.8 6.4-8.2 GM/DL Albumin 3.5 3.2-4.5 GM/DL Procalcitonin 0.07 <0.10 NG/ML Micro Results Microbiology 06/20/20 Influenza Types A,B Antigen (GIANLUCA) - Final, Complete My Orders Orders - DAVIN DODSON MD Cbc With Automated Diff (06/20/20 06:40) Magnesium (06/20/20 06:40) Chest 1 View, Ap/Pa Only (06/20/20 06:40) Ekg Tracing (06/20/20 06:40) Comprehensive Metabolic Panel (06/20/20 06:40) Myoglobin Serum (06/20/20 06:40) Protime With Inr (06/20/20 06:40) Partial Thromboplastin Time (06/20/20 06:40) O2 (06/20/20 06:40) Monitor-Rhythm Ecg Trace Only (06/20/20 06:40) Lipid Panel (06/21/20 06:00) Ed Iv/Invasive Line Start (06/20/20 06:40) BNP (06/20/20 06:40) Fibrin Degradation Products (06/20/20 06:40) Troponin I (06/20/20 06:40) Procalcitonin (Pct) (06/20/20 06:40) Hs C Reactive Protein (06/20/20 06:40) LDH (06/20/20 06:40) Influenza A And B Antigens (06/20/20 06:40) Covid 19 Inhouse Test (06/20/20 06:40) Albuterol Inhaler (Ventolin Hfa) (06/20/20 06:45) Ct Angio Chest W (06/20/20 07:14) Manual Differential (06/20/20 07:19) Acetaminophen Tablet (Tylenol Tablet) (06/20/20 08:00) Orphenadrine Inj (Ed Only) (Norflex Inje (06/20/20 08:00) Iohexol Injection (Omnipaque 350 Mg/Ml 1 (06/20/20 08:15) Received Contrast (Hold Metformin- Contr (06/20/20 08:15) Sodium Chloride Flush (Catheter Flush Sy (06/20/20 08:15) Ns (Ivpb) (Sodium Chloride 0.9% Ivpb Bag (06/20/20 08:15) Furosemide Injection (Lasix Injection) (06/20/20 10:00) Lorazepam Injection (Ativan Injection) (06/20/20 10:00) Thyroid Stimulating Hormone (06/20/20 10:13) Free T4 (Free Thyroxine) (06/20/20 10:13) Medications Given in ED Current Medications Medications Dose Ordered Sig/Katrina Route Start Time Stop Time Status Last Admin Dose Admin Acetaminophen 1,000 mg ONCE ONCE PO 06/20/20 08:00 06/20/20 08:01 DC 06/20/20 08:08 1,000 MG Albuterol Sulfate 4-8 puffs ONCE ONCE IH 06/20/20 06:45 06/20/20 06:46 DC 06/20/20 08:08 18 GM Furosemide 40 mg ONCE ONCE IVP 06/20/20 10:00 06/20/20 10:01 DC 06/20/20 10:02 40 MG Iohexol 100 ml ONCE ONCE IV 06/20/20 08:15 06/20/20 08:16 DC 06/20/20 08:44 84 ML Lorazepam 0.5 mg ONCE ONCE IVP 06/20/20 10:00 06/20/20 10:01 DC 06/20/20 10:04 0.5 MG Orphenadrine Citrate 60 mg ONCE ONCE IV 06/20/20 08:00 06/20/20 08:01 DC 06/20/20 08:08 60 MG Sodium Chloride 10 ml NEEDED PRN IV 06/20/20 08:15 06/20/20 10:35 DC 06/20/20 08:44 10 ML Sodium Chloride 100 ml ONCE ONCE IV 06/20/20 08:15 06/20/20 08:16 DC 06/20/20 08:44 80 ML Vital Signs/I&O 06/20/20 06/20/20 06/20/20 06:30 06:31 10:13 Temp 37.4 Pulse 97 95 Resp 24 20 B/P (MAP) 175/86 (115) 185/82 (115) Pulse Ox 99 99 97 O2 Delivery Nasal Cannula Non Rebreather Nasal Cannula O2 Flow Rate 5.00 3.00 Capillary Refill : Less Than 3 Seconds Blood Pressure Mean: 115 Progress Note : Time: 10:08 Progress Note EKG and troponin were negative. D-dimer was elevated prompting CT angiogram of the chest. No pulmonary emboli were noted. There were however mediastinal lymph nodes and longstanding infiltrates noted. There is no significant change in comparison with study from March. BNP is roughly twice her baseline. A dose of Lasix 40 mg is being administered. Given the findings of pleural effusions, pulmonary congestion, and peripheral edema, I believe her respiratory symptoms are largely due to heart failure and fluid overload. Patient is quite anxious as well. We are giving her some Ativan. She reports taking Ativan at home. She has not yet had her morning medications. I will allow her son to bring up her medications so she may take them from her own supply. Patient used an albuterol inhaler for her slight wheezing. I am not administering steroids at this time due to her diabetes. I will however initiate a azithromycin as a precaution with her COPD exacerbation and chronic pulmonary infiltrates. Case was discussed with Dr. Garcia. I reviewed CODE STATUS with the patient and she requests full code at this time. Consult is pending with Dr. Collado. I have sent him a message. Patient states she has an appointment with her grievance and appeals specialist on Thursday afternoon. She would really like to be discharged prior to that time if at all possible. Patient also complained of headache and left posterior neck pain. On palpation she had tender spasming musculature. This was treated with Norflex. ECG Initial ECG Impression Date: Jun 20, 2020 Initial ECG Impression Time: 06:49 Initial ECG Rate: 92 Comment Normal sinus rhythm with no ST elevation or depression. No abnormal intervals or axis deviation. Diagnostic Imaging Diagonstic Imaging: Xray Plain Films/CT/US/NM/MRI: chest Comments Chest x-ray viewed by me and report reviewed. See report below: NAME: [facility]UDDY [facility] REC#: [id number] PT STATUS: REG ER : 1955 PHYSICIAN: DAVIN DODSON MD ADMIT DATE: 06/20/20/ER Draft Date of Exam:06/20/20 CHEST 1 VIEW, AP/PA ONLY INDICATION: Increasing shortness of air over the last 4 days as well as body aches and cough. Time of exam 8:06 AM Correlation is made with prior chest from 03/13/2020. Heart is enlarged. There is central congestion noted. There is some mild basilar interstitial changes likely owing to mild congestive failure. No airspace consolidation is seen. There is no effusion or pneumothorax. IMPRESSION: Findings suggestive of mild congestive failure. No other significant abnormality is seen. Dictated on workstation # [id number] Dict: 06/20/20827 Trans: 06/20/20 0830 [facility] [id number] Interpreted by: BERENICE WHITE MD Diagonstic Imaging: CT Comments CT angiogram chest viewed by me and report reviewed. See report below: NAME: RUDDY G[facility] REC#: [id number] PT STATUS: REG ER : 1955 PHYSICIAN: DAVIN DODSON MD ADMIT DATE: 06/20/20/ER Signed Date of Exam:06/20/20 CT ANGIO CHEST W INDICATION: Hypoxia. TECHNIQUE: Multiple contiguous axial images were obtained through the chest after uneventful bolus administration of intravenous contrast. 3D reconstructed CTA MIP acquisitions were also performed. Auto Exposure Controls were utilized during the CT exam to meet ALARA standards for radiation dose reduction. Comparison made to previous CTA of the 03/13/2020. FINDINGS: The thoracic aorta is normal in caliber with no evidence of dissection or aneurysm. The great vessel origins are patent and without stenosis. The pulmonary parenchymal vessels are well-opacified with no CT evidence of pulmonary emboli. There is cardiomegaly. There are mitral annular calcifications. There are coronary artery calcifications. There are scattered mildly enlarged nodes in the mediastinum, the largest measuring about 1.9 cm within the SVC and trachea. There is a right paratracheal node posteriorly measuring about 1.6 cm. There are no enlarged hilar nodes or axillary nodes. There are small bilateral pleural effusions. There is no significant pericardial fluid. Visualized portions of the upper abdomen demonstrate calcified granulomata in the spleen. Patient has had previous cholecystectomy. Lung parenchymal windows demonstrate patchy groundglass infiltrates throughout both lungs which appeared similar on the prior study of 03/13/2020. IMPRESSION: No CT evidence of pulmonary emboli or aortic dissection or aneurysm. There is cardiomegaly again noted. There are some mildly prominent nodes in the mediastinum which appears stable compared to the prior study and could be reactive or neoplastic. Small bilateral pleural effusions are again noted, similar to the prior study. There is no change in the patchy groundglass infiltrates throughout both lungs. Dictated by: Dictated on workstation # [id number] Dict: 06/20/2048 Trans: 06/20/20 0907 [id number] Interpreted by: JF BENNETT MD Electronically signed by: JF BENNETT MD 06/20/2007 Departure Communication (Admissions) Time/Spoke to Admitting Phy: 09:45 Dr. Garcia Time/Spoke to Consulting Phy: 09:48 Dr. Peralta notified by message. Impression Primary Impression: CHF exacerbation Qualified Codes: I50.9 - Heart failure, unspecified Additional Impressions: COPD exacerbation Anxiety Pulmonary infiltrate Mediastinal lymphadenopathy Disposition: ADMITTED INPATIENT Condition: Improved Admissions Decision to Admit Reason: Admit from ER (General) Decision to Admit/Date: Jun 20, 2020 Time/Decision to Admit Time: 09:48 Departure-Patient Inst. Referrals: DOUG QUINTANILLA DO (PCP/Family) Primary Care Physician DAVIN DODSON MD Jun 20, 2020 06:55
[2020-06-20 07:09] LABS: PROTHROMBIN TIME PATIENT 13.4 SEC (12.2-14.7)
[2020-06-20 07:35] LABS: BASOPHILS # (AUTO) 0.1 10^3/uL (0.0-0.1); BASOPHILS % (AUTO) 1 % (0-10); EOSINOPHILS # (AUTO) 0.2 10^3/uL (0.0-0.3); EOSINOPHILS % (AUTO) 2 % (0-10); HEMATOCRIT 33 % (35-52); HEMOGLOBIN 10.1 g/dL (11.5-16.0); LYMPHOCYTES # (AUTO) 0.7 10^3/uL (1.0-4.0); LYMPHOCYTES % (AUTO) 7 % (12-44); MEAN CORPUSCULAR HEMOGLOBIN 31 pg (25-34); MEAN CORPUSCULAR HGB CONC 31 g/dL (32-36); MEAN CORPUSCULAR VOLUME 101 fL (80-99); MEAN PLATELET VOLUME 9.8 fL (9.0-12.2); MONOCYTES # (AUTO) 0.5 10^3/uL (0.0-1.0); MONOCYTES % (AUTO) 4 % (0-12); NEUTROPHILS # (AUTO) 9.1 10^3/uL (1.8-7.8); NEUTROPHILS % (AUTO) 86 % (42-75); PLATELET COUNT 168 10^3/uL (130-400); WHITE BLOOD COUNT 10.6 10^3/uL (4.3-11.0)
[2020-06-20 07:48] LABS: ALBUMIN 3.5 GM/DL (3.2-4.5); POTASSIUM 4.5 MMOL/L (3.6-5.0)
[2020-06-20 07:49] LABS: CALCIUM 8.5 MG/DL (8.5-10.1)
[2020-06-20 07:51] LABS: TOTAL PROTEIN 6.8 GM/DL (6.4-8.2)
[2020-06-20 07:53] LABS: BILIRUBIN,TOTAL 0.4 MG/DL (0.1-1.0)
[2020-06-20 07:54] LABS: CREATININE SERUM 0.98 MG/DL (0.60-1.30)
[2020-06-20 07:55] LABS: EOSINOPHILS % (MANUAL) 3 %; LYMPHOCYTES % (MANUAL) 7 %; MONOCYTES % (MANUAL) 3 %; NEUTROPHILS % (MANUAL) 87 %; RBC MORPH NORMAL
[2020-06-20 07:57] LABS: MAGNESIUM 1.9 MG/DL (1.6-2.4)
[2020-06-20] MEDS ORDERED: ORPHENADRINE 60 MG/2 ML (NORFLEX) AMP (ED ONLY) IV ONE (08:00)
[2020-06-20] MEDS ORDERED: ACETAMINOPHEN 500 MG TAB (TYLENOL) PO ONE (08:00)
[2020-06-20] MEDS ORDERED: IOHEXOL 350 MG/ML 100 ML (OMNIPAQUE 350) VIAL IV ONE (08:15)
[2020-06-20] MEDS ORDERED: CATHETER FLUSH 10 ML SYR IV PRN ×3 (08:15→11:15)
[2020-06-20] MEDS ORDERED: NS 100 ML (IVPB) BAG IV ONE (08:15)
[2020-06-20] MEDS ORDERED: HOLD METFORMIN - RECEIVED CONTRAST 20 ML VIAL IV SCH (08:15)
--- NOTE | 2020-06-20 08:30 | Diagnostic Imaging Report ---
INDICATION: Increasing shortness of air over the last 4 days as well as body aches and cough. Time of exam 8:06 AM Correlation is made with prior chest from 03/13/2020. Heart is enlarged. There is central congestion noted. There is some mild basilar interstitial changes likely owing to mild congestive failure. No airspace consolidation is seen. There is no effusion or pneumothorax. IMPRESSION: Findings suggestive of mild congestive failure. No other significant abnormality is seen. Dictated by: Dictated on workstation # [id number]
--- NOTE | 2020-06-20 09:02 | Diagnostic Imaging Report ---
INDICATION: Hypoxia. TECHNIQUE: Multiple contiguous axial images were obtained through the chest after uneventful bolus administration of intravenous contrast. 3D reconstructed CTA MIP acquisitions were also performed. Auto Exposure Controls were utilized during the CT exam to meet ALARA standards for radiation dose reduction. Comparison made to previous CTA of the 03/13/2020. FINDINGS: The thoracic aorta is normal in caliber with no evidence of dissection or aneurysm. The great vessel origins are patent and without stenosis. The pulmonary parenchymal vessels are well-opacified with no CT evidence of pulmonary emboli. There is cardiomegaly. There are mitral annular calcifications. There are coronary artery calcifications. There are scattered mildly enlarged nodes in the mediastinum, the largest measuring about 1.9 cm within the SVC and trachea. There is a right paratracheal node posteriorly measuring about 1.6 cm. There are no enlarged hilar nodes or axillary nodes. There are small bilateral pleural effusions. There is no significant pericardial fluid. Visualized portions of the upper abdomen demonstrate calcified granulomata in the spleen. Patient has had previous cholecystectomy. Lung parenchymal windows demonstrate patchy groundglass infiltrates throughout both lungs which appeared similar on the prior study of 03/13/2020. IMPRESSION: No CT evidence of pulmonary emboli or aortic dissection or aneurysm. There is cardiomegaly again noted. There are some mildly prominent nodes in the mediastinum which appears stable compared to the prior study and could be reactive or neoplastic. Small bilateral pleural effusions are again noted, similar to the prior study. There is no change in the patchy groundglass infiltrates throughout both lungs. Dictated by: Dictated on workstation # [id number]
[2020-06-20] MEDS ORDERED: LORazepam INJ 2 MG/ML (ATIVAN) VIAL IVP ONE (10:00)
[2020-06-20] MEDS ORDERED: FUROSEMIDE 40 MG/4 ML INJ (LASIX) IVP ONE (10:00)
[2020-06-20 10:49] LABS: FREE T4 (FREE THYROXINE) 0.95 NG/DL (0.70-1.48)
[2020-06-20 11:00] VITALS: BP 167/86
[2020-06-20 11:21] VITALS: BP 185/82
[2020-06-20] MEDS ORDERED: RT-ALBUTEROL/IPRATROPIUM 3 ML (DUONEB) VIAL INH PRN (11:30)
--- NOTE | 2020-06-20 11:31 | Consultation-Cardiology ---
HPI-Cardiology Cardiology Consultation Date of Consultation 06/20/20 Date of Admission Time Seen by Provider: 11:15 Indication: CHF, dyspnea HPI Patient is a 64 y/o female with hx of CAD with stenting to the RCA, mitral stenosis, CHF, COPD. Primary evaluation specialist is Dr. Gavin. Presented to the ER with complaints of worsening dyspnea over the past 4 days with associated chills, myalgias and productive cought. Reports oxygen in the 70's at home. C/o intermittent chest pain over the past 2 weeks. Denies any active chest pain, denies dizziness or lightheadedness. States has had routine f/u with Dr. Gavin and underwent LHC approx 1 year ago without intervention. Home Medications & Allergies Allergies: Coded Allergies: Penicillins (Verified Allergy, Unknown, 05/15/19) meperidine (Verified Allergy, Unknown, 09/06/19) morphine (Unverified Allergy, Unknown, 05/15/19) propoxyphene (Verified Allergy, Unknown, 05/15/19) topiramate (Verified Allergy, Unknown, 05/15/19) codeine (Verified Adverse Reaction, Unknown, UPSET STOMACH, 09/13/19) dapagliflozin (Verified Adverse Reaction, Unknown, yeast infection, 09/13/19) Home Medication List Reviewed: Yes [id number] Hx Patient Social History Marital Status: Recreational Drug Use: No Smoking Status: Never a Smoker 2nd Hand Smoke Exposure: No Recent Hopitalizations: No Immunizations Up To Date Tetanus Booster (TDap): Unknown Date of Pneumonia Vaccine: Feb 05, 2017 Date of Influenza Vaccine: Dec 21, 2019 Past Medical History CAD, HTN, HLP, mitral stenosis Family Medical History Significant Family History: No Pertinent Family Hx Family History: Alzheimer's disease G8 SISTER Diabetes mellitus 19 FATHER Hypertension 19 FATHER 19 MOTHER Myocardial infarction 19 FATHER 19 MOTHER Neoplasm G8 SISTER Review of Systems-General Review of Systems Constitutional: see HPI, chills, malaise, weakness EENTM: see HPI; No blurred vision, No double vision Respiratory: see HPI, cough, dyspnea on exertion, phlegm, short of breath Cardiovascular: see HPI, chest pain; No edema; Hx of Intervention; No palpitations, No syncope Gastrointestinal: no symptoms reported Genitourinary: no symptoms reported : No Musculoskeletal: see HPI Skin: no symptoms reported Psychiatric/Neurological: No Symptoms Reported Reviewed Test Results Reviewed Test Results Lab Laboratory Tests 06/20/20 06:35: Coronavirus 2019 ([facility]) Not Detected 06/20/20 06:50: Prothrombin Time 13.4, INR Comment 1.0, Activated Partial Thromboplast Time 28, D-Dimer 1.11H 06/20/20 07:19: White Blood Count 10.6, Red Blood Count 3.28L, Hemoglobin 10.1L, Hematocrit 33L, Mean Corpuscular Volume 101H, Mean Corpuscular Hemoglobin 31, Mean Corpuscular Hemoglobin Concent 31L, Red Cell Distribution Width 13.0, Platelet Count 168, Mean Platelet Volume 9.8, Immature Granulocyte % (Auto) 0, Neutrophils (%) (Auto) 86H, Lymphocytes (%) (Auto) 7L, Monocytes (%) (Auto) 4, Eosinophils (%) (Auto) 2, Basophils (%) (Auto) 1, Neutrophils # (Auto) 9.1H, Lymphocytes # (Auto) 0.7L, Monocytes # (Auto) 0.5, Eosinophils # (Auto) 0.2, Basophils # (Auto) 0.1, Immature Granulocyte # (Auto) 0.0, Neutrophils % (Manual) 87, Lymphocytes % (Manual) 7, Monocytes % (Manual) 3, Eosinophils % (Manual) 3, Blood Morphology Comment NORMAL, Sodium Level 140, Potassium Level 4.5, Chloride Level 104, Carbon Dioxide Level 24, Anion Gap 12, Blood Urea Nitrogen 12, Creatinine 0.98, Estimat Glomerular Filtration Rate 57, BUN/Creatinine Ratio 12, Glucose Level 129H, Calcium Level 8.5, Corrected Calcium 8.9, Magnesium Level 1.9, Total Bilirubin 0.4, Aspartate Amino Transf (AST/SGOT) 16, Alanine Aminotransferase (ALT/SGPT) 25, Alkaline Phosphatase 110, Lactate Dehydrogenase 315H, Myoglobin 61.2, Troponin I < 0.028, C-Reactive Protein High Sensitivity 9.56H, B-Type Natriuretic Peptide 694.2H, Total Protein 6.8, Albumin 3.5, Procalcitonin 0.07, Thyroid Stimulating Hormone (TSH) 1.03, Free Thyroxine 0.95 Microbiology 06/20/20 Influenza Types A,B Antigen (GIANLUCA) - Final, Complete ECG Impression ECG Initial ECG Rhythm: Normal Sinus Physical Exam Physical Exam Vital Signs Vital Signs - First Documented 4/14/21 4/14/21 06:30 06:31 Temp 37.4 Pulse 97 Resp 24 B/P (MAP) 175/86 (115) Pulse Ox 99 O2 Delivery Nasal Cannula O2 Flow Rate 5.00 Capillary Refill : Less Than 3 Seconds Height, Weight, BMI Height: 5'4.00" Weight: 246lbs. 6.0oz. 111.813363on; 42.38 BMI Method:Stated General Appearance: No Apparent Distress, WD/WN HEENT: Normal ENT Inspection Neck: Non Tender, Supple Respiratory: Chest Non Tender, No Respiratory Distress, Decreased Breath Sounds, Rhonci Cardiovascular: Regular Rate, Rhythm, Other (+1 edema BLE) Gastrointestinal: Non Tender, Soft A/P-Cardiology Admission Diagnosis Dyspnea AE COPD CAD Mitral valve stenosis Assessment/Plan Dyspnea, likely multifactorial, noted to have elevated BNP, I will evaluate 2D Echo AE COPD, follows with Dr. Hand as outpatient, has been maintained on home O2, management per medical services Chest pain, nonspecific etiology, denies any active chest pain. Troponin negative. EKG showing no acute ST changes, will continue to monitor. Mitral valve stenosis- Echocardiogram in 2018 showed normal left ventricular size and function with ejection fraction 55-60 percent, moderate mitral regurgitation, heavily calcified mitral valve, pulmonary artery pressure of 15-20 mmHg. Patient underwent THANH July 2017, done by Dr. Gavin at [facility] revealing moderate mitral valve stenosis. Planning to reevaluate 2D Echo Coronary artery disease, status post cardiac catheterization done on December 26, 2015 had 90 percent stenosis in the OM, stenting using 2.516 mm Promus Premier stent with excellent results expanded to 2.65. Underwent cardiac cath July [address] Vargas at [facility] revealing patent stent to OM, nonobstructive disease. Patient reports most recent LHC done approx 1 year ago without intervention. Carotid artery stenosis, had carotid endarterectomy done by Dr. Victoria in 2016. Follows with Dr. Victoria as outpatient. Hypertension, restart home blood pressure medications and continue to monitor. Hyperlipidemia, monitor lipids Obesity History of chronic venous insufficiency, Diabetes mellitus, followed and managed by primary care physician Degenerative joint disease, spinal stenosis, scoliosis, limiting her exercise ability. Systemic lupus erythematous. Followed and managed by primary care physician. Thank you for allowing us to participate in the management of Ms. Taveras. This is Reta Lowe PA-C, as a scribe for Dr. Peralta. Patient was seen and evaluated with Reta, examination performed, management plan was discussed, agree with the current scribed note, I made few changes to the note using Italic font Patient was seen and evaluated with Reta, still having dyspnea, was very emotional, concerned and having anxiety Patient has mild mitral valve stenosis, heart function has been normal. Has been followed with Dr. Gavin and had a cardiac catheterization recently Monitor blood pressure and lipids RETA MATTSON Jun 20, 2020 11:31 am NGHIA PERALTA MD Jun 20, 2020 4:48 pm
[2020-06-20] MEDS ORDERED: AZITHROMYCIN 500 MG/NS 250 ML IVPB IV NR ×2 (12:00)
[2020-06-20] MEDS ORDERED: LORazepam 0.5 MG (ATIVAN) TABLET PO PRN ×2 (14:00)
[2020-06-20] MEDS ORDERED: CATHETER FLUSH 10 ML SYR IV SCH (14:00)
[2020-06-20] MEDS ORDERED: TRAZ-227 PO (14:07)
[2020-06-20] MEDS ORDERED: LORA-405 PO (14:07)
[2020-06-20] MEDS ORDERED: FURO20TA4 PO (14:07)
[2020-06-20] MEDS ORDERED: ACET600C5 PO (14:07)
[2020-06-20] MEDS ORDERED: ZINC220T3 PO (14:07)
[2020-06-20] MEDS ORDERED: POTA10TA36 PO (14:07)
[2020-06-20] MEDS ORDERED: SODI45SP9 NSEACH (14:07)
[2020-06-20] MEDS ORDERED: MONT10TA32 PO (14:07)
[2020-06-20] MEDS ORDERED: GABA-490 PO (14:07)
[2020-06-20] MEDS ORDERED: REVE175V IH (14:10)
[2020-06-20] MEDS ORDERED: FORM20VI IH (14:10)
[2020-06-20] MEDS: CATHETER FLUSH 10 ML SYR IV SCH ×2 (14:22→21:08)
[2020-06-20] MEDS ORDERED: MELATONIN 3 MG TABLET PO PRN (14:30)
[2020-06-20] MEDS ORDERED: MILK OF MAGNESIA 400 MG/5 ML 30 ML UDC PO PRN (14:30)
[2020-06-20] MEDS ORDERED: BISACODYL 10 MG SUPP (DULCOLAX) PR PRN (14:30)
[2020-06-20] MEDS ORDERED: ONDANSETRON 4 MG (ZOFRAN) ORAL DISSOLVE TAB PO PRN (14:30)
[2020-06-20] MEDS ORDERED: ONDANSETRON 4 MG/2 ML (SDV) Z0FRAN IV PRN (14:30)
[2020-06-20] MEDS ORDERED: polyethylene glycoL POWDER 17 GM (MIRALAX) PACK PO PRN (14:30)
[2020-06-20] MEDS ORDERED: ANTACID SUSP 30 ML UDC (MYLANTA) PO PRN (14:30)
[2020-06-20] MEDS ORDERED: diphenhydrAMINE 25 MG TAB (BENADRYL) PO PRN (14:30)
--- NOTE | 2020-06-20 14:32 | History & Physical-Hospitalist ---
History of Present Illness HPI/Chief Complaint Rhea Taveras is a 64-year-old female with past medical history of oxygen dependent COPD, heart failure with preserved ejection fraction, hypertension, hyperlipidemia, diabetes, coronary artery disease, morbid obesity, who presented with shortness of breath. She also reports having a cough. She has been having orthopnea. She reports having lower extremity swelling. She has not been having fevers or chills. She denies any abdominal pain. She denies nausea and vomiting. She denies diarrhea. She denies dysuria. Source: patient Exam Limitations: no limitations Date Seen 06/20/20 Time Seen by a Provider: 12:30 Attending Physician Radha Bentley MD PCP Eric Quintanilla DO Referring Physician Date of Admission Jun 20, 2020 at 10:14 Home Medications & Allergies Home Medications Reviewed patient Home Medication Reconciliation performed by pharmacy medication reconciliations robotics technician and/or nursing. Patients Allergies have been reviewed. Allergies Allergies Coded Allergies Penicillins (Verified Allergy, Unknown, 05/15/19) meperidine (Verified Allergy, Unknown, 09/06/19) morphine (Unverified Allergy, Unknown, 05/15/19) propoxyphene (Verified Allergy, Unknown, 05/15/19) topiramate (Verified Allergy, Unknown, 05/15/19) codeine (Verified Adverse Reaction, Unknown, UPSET STOMACH, 09/13/19) dapagliflozin (Verified Adverse Reaction, Unknown, yeast infection, 09/13/19) Patient Social History Marrital Status: Smoking Status: Never a Smoker Pt stated abuse/neglect: No Immunizations Up To Date Influenza Vaccine Up-to-Date: Yes; Up-to-Date First/Initial COVID19 Vaccinat: APRIL Second COVID19 Vaccination Trey: MAY 08, 2020 Tetanus Booster (TDap): Unknown Hepatitis A: No Hepatitis B: No TB Skin Test: None Date of Pneumonia Vaccine: Feb 05, 2017 Current Status status: No Communicates: Verbally Primary Language: Azerbaijani Preferred Spoken Language: Azerbaijani Is interpretation needed?: No Past Medical History Hypertension Hyperlipidemia Type 2 diabetes mellitus Coronary artery disease COPD Chronic respiratory failure with hypoxia Heart failure with preserved ejection fraction Morbid obesity Family Medical History Family Hx: Noncontributory Review of Systems Constitutional: no symptoms reported EENTM: no symptoms reported Respiratory: cough, orthopnea, short of breath Cardiovascular: chest pain Gastrointestinal: no symptoms reported Genitourinary: no symptoms reported Musculoskeletal: no symptoms reported Skin: no symptoms reported Psychiatric/Neurological: No Symptoms Reported Physical Exam Physical Exam Vital Signs Vital Signs - First Documented 06/20/20 06/20/20 06:30 06:31 Temp 37.4 Pulse 97 Resp 24 B/P (MAP) 175/86 (115) Pulse Ox 99 O2 Delivery Nasal Cannula O2 Flow Rate 5.00 Capillary Refill : Less Than 3 Seconds Height, Weight, BMI Height: 5'4.00" Weight: 246lbs. 6.0oz. 111.678186cf; 42.38 BMI Method:Stated General Appearance: No Apparent Distress, Anxious, Obese HEENT: PERRL/EOMI, Pharynx Normal Neck: Normal Inspection, Supple Respiratory: No Respiratory Distress, Decreased Breath Sounds Cardiovascular: Regular Rate, Rhythm, No Edema, No Murmur Gastrointestinal: Normal Bowel Sounds, Non Tender, Soft Extremity: Normal Inspection, Non Tender, Pedal Edema Neurologic/Psychiatric: Alert, Oriented x3, No Motor/Sensory Deficits, Other (Anxious) Skin: Normal Color, Warm/Dry Results Results/Procedures Labs Patient resulted labs reviewed. Imaging: Reviewed Imaging Report Assessment/Plan Admission Diagnosis Acute on chronic heart failure with preserved ejection fraction Admission Status: Observation Assessment and Plan Acute on chronic heart failure with preserved ejection fraction Chronic respiratory failure with hypoxia Begin Lasix Monitor output Cardiology consutled, appreciate assistance Anxiety Continue home meds IV infiltration Contusion of left forearm No evidence of infection, monitor COPD HTN HLD CAD T2DM Continue home meds Diagnosis/Problems Diagnosis/Problems (1) CHF exacerbation Status: Acute Qualifiers: Heart failure type: unspecified Qualified Codes: I50.9 - Heart failure, unspecified (2) Chronic respiratory failure with hypoxia Status: Chronic (3) IV infiltration Status: Acute Qualifiers: Encounter type: initial encounter Qualified Codes: T80.1XXA - Vascular complications following infusion, transfusion and therapeutic injection, initial encounter (4) Anxiety Status: Acute (5) Morbid obesity Status: Chronic (6) HTN (hypertension) Status: Chronic (7) HLD (hyperlipidemia) Status: Chronic (8) T2DM (type 2 diabetes mellitus) Status: Chronic (9) CAD (coronary artery disease) Status: Chronic RADHA BENTLEY MD Jun 20, 2020 14:32
[2020-06-20] MEDS ORDERED: PATIENT MAY USE OWN MEDS, ALL MC SCH (14:45)
[2020-06-20] MEDS: LORazepam 1 MG (ATIVAN) TAB PO PRN (14:59)
[2020-06-20] MEDS ORDERED: CYCLOBENZAPRINE 10 MG (FLEXERIL) TAB PO PRN (15:00)
[2020-06-20 15:27] VITALS: BP 175/79
[2020-06-20] MEDS: inSUlin ASPART (NovoLOG) 1 UNIT/0.01 ML (CHARGE PER UNIT) SC SCH ×2 (15:54→21:02)
[2020-06-20] MEDS: ENOXAPARIN 40 MG/0.4 ML (LOVENOX) SYR SC SCH (15:54)
[2020-06-20] MEDS: RT-ALBUTEROL/IPRATROPIUM 3 ML (DUONEB) VIAL INH SCH (18:47)
[2020-06-20 20:00] VITALS: BP 139/62
[2020-06-20] MEDS ORDERED: NON-FORMULARY MEDICATION 1 EA EA (Formoterol Fumarate (Perforomist) 20 MCG) IH SCH (21:00)
[2020-06-20] MEDS ORDERED: NON-FORMULARY MEDICATION 1 EA EA (Eszopiclone 2 MG) PO SCH (21:00)
[2020-06-20] MEDS: LOSARTAN 50 MG (COZAAR) TAB PO SCH (21:03)
[2020-06-20] MEDS: MONTELUKAST 10 MG (SINGULAIR) TAB PO SCH (21:04)
[2020-06-20] MEDS: N ACETYL CYSTEINE PO SCH (21:05)
[2020-06-20] MEDS: GABAPENTIN 400 MG (NEURONTIN) CAP PO SCH (21:06)
[2020-06-20] MEDS: traZODone 100 MG (DESYREL) TAB PO SCH (21:06)
[2020-06-20] MEDS: ACETAMINOPHEN 325 MG TABLET PO PRN (22:40)
[2020-06-21] VITALS (7 sets, daily range): BP systolic 112–144; BP diastolic 58–80
[2020-06-21] MEDS: RT-ALBUTEROL/IPRATROPIUM 3 ML (DUONEB) VIAL INH SCH ×4 (02:19→21:29)
[2020-06-21] MEDS: ENOXAPARIN 40 MG/0.4 ML (LOVENOX) SYR SC SCH ×2 (04:14→15:16)
[2020-06-21 05:26] LABS: CHOLESTEROL 137 MG/DL (< 200); HDL CHOLESTEROL 45 MG/DL (40-60); TRIGLYCERIDES 81 MG/DL (<150); VLDL CHOLESTEROL 16 MG/DL (5-40)
[2020-06-21] MEDS: inSUlin ASPART (NovoLOG) 1 UNIT/0.01 ML (CHARGE PER UNIT) SC SCH ×4 (05:33→20:28)
[2020-06-21] MEDS: CATHETER FLUSH 10 ML SYR IV SCH ×3 (05:33→20:29)
[2020-06-21] MEDS: LEVOTHYROXINE 125 MCG (LEVOTHROID) TABLET PO SCH (05:34)
[2020-06-21] MEDS ORDERED: REVEFENACIN 175 MCG IH SCH (09:00)
[2020-06-21] MEDS: PANTOPRAZOLE 40 MG (PROTONIX) TAB PO SCH (09:18)
[2020-06-21] MEDS: N ACETYL CYSTEINE PO SCH ×2 (09:18→20:20)
[2020-06-21] MEDS: GABAPENTIN 400 MG (NEURONTIN) CAP PO SCH ×3 (09:19→20:21)
[2020-06-21] MEDS: ASPIRIN E.C. 81 MG (ECOTRIN) TAB PO SCH (09:19)
[2020-06-21] MEDS: FUROSEMIDE 20 MG (LASIX) TAB PO SCH (09:19)
[2020-06-21] MEDS: AZITHROMYCIN 250 MG TAB (ZITHROMAX) PO SCH (09:20)
[2020-06-21] MEDS: ACETAMINOPHEN 325 MG TABLET PO PRN ×2 (09:33→20:22)
[2020-06-21] MEDS: LORazepam 1 MG (ATIVAN) TAB PO PRN ×2 (09:47→20:22)
--- NOTE | 2020-06-21 12:56 | Progress Note - Cardiology ---
Cardiology SOAP Progress Note Subjective: Sitting up in recliner at the bedside States her SOB is better than before No c/o CP, palpitations, syncope or near syncope Objective: I&O/Vital Signs 06/21/20 06/21/20 06/21/20 06/21/20 01:00 02:20 04:00 07:00 Temp 36.6 Pulse 90 87 117 Resp 20 B/P (MAP) 134/80 (98) Pulse Ox 99 98 O2 Delivery Nasal Cannula Nasal Cannula O2 Flow Rate 3.00 4.00 06/21/20 06/21/20 06/21/20 06/21/20 08:00 09:22 09:50 11:14 Temp 36.5 36.5 Pulse 85 88 Resp 20 19 B/P (MAP) 144/67 (92) 142/72 (95) Pulse Ox 98 98 97 97 O2 Delivery Nasal Cannula Nasal Cannula Nasal Cannula Nasal Cannula O2 Flow Rate 3.00 3.00 3.00 3.00 06/21/20 00:00 Intake Total 1790 ml Output Total 600 ml Balance 1190 ml Weight (Pounds): 246 Weight (Ounces): 6.0 Weight (Calculated Kilograms): 111.908442 Constitutional: AAO x 3, well-developed, well-nourished Respiratory: No accessory muscle use, No respiratory distress; chest expansion is symmetric, chest is bilaterally symmetric, lungs clear to auscultation Cardiovascular: regular rate-rhythm; No JVD; S1 and S2 Gastrointestional: No tender; soft, round, audible bowel sounds Extremities: other (mod bilat LE swelling) Neurologic/Psychiatric: grossly intact (moves all extremities) Skin: No rash on exposed areas, No ulcerations on exposed areas Results/Procedures: Labs Laboratory Tests 06/20/20 13:37: Glucometer 165H 06/20/20 15:44: Glucometer 107 06/20/20 20:50: Glucometer 168H 06/21/20 04:59: Triglycerides Level 81, Cholesterol Level 137, LDL Cholesterol Direct 79, VLDL Cholesterol 16, HDL Cholesterol 45 06/21/20 05:32: Glucometer 147H 06/21/20 10:54: Glucometer 182H Microbiology 06/20/20 Influenza Types A,B Antigen (GIANLUCA) - Final, Complete Laboratory Tests 4/14/21 07:19 A/P: Assessment: Dyspnea, likely multifactorial Echocardiogram of 06-20-20 shows LVEF 55-65%. Grade 1 diastolic dysfunction. Mild mitral stenosis. PASP 30 mmHg AE COPD, follows with Dr. Hand as outpatient, has been maintained on home O2 Chest pain, nonspecific etiology, denies any active chest pain. Troponin negative. EKG showing no acute ST changes - no c/o H/O THANH July 2017, done by Dr. Gavin at [facility] revealing moderate mitral valve stenosis. Planning to reevaluate 2D Echo Coronary artery disease - status post cardiac catheterization done on December 26, 2015 had 90 percent stenosis in the OM, stenting using 2.516 mm Promus Premier stent with excellent results expanded to 2.65. - Underwent cardiac cath July [address] Vargas at [facility] revealing patent stent to OM, nonobstructive disease - Patient reports most recent LHC done approx 1 year ago without intervention. Carotid artery stenosis, had carotid endarterectomy done by Dr. Victoria in 2016. Follows with Dr. Victoria as outpatient. Hypertension - improved Hyperlipidemia Obesity History of chronic venous insufficiency, Diabetes mellitus Degenerative joint disease, spinal stenosis, scoliosis, limiting her exercise ability. Systemic lupus erythematous Plan: Continue current medication regimen Monitor lab Replace electrolytes as indicated PRANAV COTTON Jun 21, 2020 12:56
--- NOTE | 2020-06-21 15:22 | Progress Note - Cardiology ---
Cardiology SOAP Progress Note Subjective: Shortness of breath and swelling are improving Weakness and malaise are persistent No cp No palp or syncope No n/v/d Objective: I&O/Vital Signs 06/21/20 06/21/20 06/21/20 06/21/20 04:00 07:00 08:00 09:22 Temp 36.6 36.5 Pulse 87 117 85 Resp 20 20 B/P (MAP) 134/80 (98) 144/67 (92) Pulse Ox 98 98 98 O2 Delivery Nasal Cannula Nasal Cannula Nasal Cannula O2 Flow Rate 4.00 3.00 3.00 06/21/20 06/21/20 06/21/20 09:50 11:14 13:00 Temp 36.5 Pulse 88 91 Resp 19 B/P (MAP) 142/72 (95) Pulse Ox 97 97 O2 Delivery Nasal Cannula Nasal Cannula O2 Flow Rate 3.00 3.00 06/21/20 00:00 Intake Total 1790 ml Output Total 600 ml Balance 1190 ml Weight (Pounds): 246 Weight (Ounces): 6.0 Weight (Calculated Kilograms): 111.730928 Constitutional: AAO x 3, well-developed, well-nourished Respiratory: No accessory muscle use, No respiratory distress; chest expansion is symmetric, chest is bilaterally symmetric, lungs clear to auscultation Cardiovascular: regular rate-rhythm; No JVD; S1 and S2 Gastrointestional: No tender; soft, round, audible bowel sounds Extremities: other (mod bilat LE swelling) Neurologic/Psychiatric: grossly intact (moves all extremities) Skin: No rash on exposed areas, No ulcerations on exposed areas Results/Procedures: Labs Laboratory Tests 06/20/20 15:44: Glucometer 107 06/20/20 20:50: Glucometer 168H 06/21/20 04:59: Triglycerides Level 81, Cholesterol Level 137, LDL Cholesterol Direct 79, VLDL Cholesterol 16, HDL Cholesterol 45 06/21/20 05:32: Glucometer 147H 06/21/20 10:54: Glucometer 182H Microbiology 06/20/20 Influenza Types A,B Antigen (GIANLUCA) - Final, Complete Laboratory Tests 06/20/20 07:19 A/P: Assessment: Dyspnea, likely multifactorial Ac diastolic CHF - Echocardiogram of 06-20-20 shows LVEF 55-65%. Grade 1 diastolic dysfunction. Mild mitral stenosis. PASP 30 mmHg AE COPD, follows with Dr. Hand as outpatient, has been maintained on home O2 H/o nonspecific cp. Troponin negative. EKG showing no acute ST changes - no c/o H/O THANH July 2017, done by Dr. Gavin at [facility] revealing moderate mitral valve stenosis. Planning to reevaluate 2D Echo Coronary artery disease - status post cardiac catheterization done on December 26, 2015 had 90 percent stenosis in the OM, stenting using 2.516 mm Promus Premier stent with excellent results expanded to 2.65. - Underwent cardiac cath July [address] Vargas at [facility] revealing patent stent to OM, nonobstructive disease - Patient reports most recent LHC done approx 1 year ago without intervention. Carotid artery stenosis, had carotid endarterectomy done by Dr. Victoria in 2015. Follows with Dr. Victoria as outpatient. Hypertension - improved Hyperlipidemia Obesity History of chronic venous insufficiency, Diabetes mellitus Degenerative joint disease, spinal stenosis, scoliosis, limiting her exercise ability. Systemic lupus erythematous Plan: Continue current medication regimen Monitor lab Replace electrolytes as indicated Ok to d/c from cardiac standpoint I interviewed and examined her, reviewed her records, and spoke with her in detail regarding her CV issues Outpt cardiac f/u is with Dr Gavin with whom she has an apptt next week, she says SHERRI VILLAREAL MD FACP FAC CCDS Jun 21, 2020 15:22
[2020-06-21] MEDS: traZODone 100 MG (DESYREL) TAB PO SCH (20:19)
[2020-06-21] MEDS: LOSARTAN 50 MG (COZAAR) TAB PO SCH (20:21)
[2020-06-21] MEDS: MONTELUKAST 10 MG (SINGULAIR) TAB PO SCH (20:22)
[2020-06-22] MEDS: ENOXAPARIN 40 MG/0.4 ML (LOVENOX) SYR SC SCH (01:53)
[2020-06-22] MEDS: RT-ALBUTEROL/IPRATROPIUM 3 ML (DUONEB) VIAL INH SCH ×2 (02:34→08:30)
[2020-06-22 04:02] VITALS: BP 145/82
[2020-06-22] MEDS: inSUlin ASPART (NovoLOG) 1 UNIT/0.01 ML (CHARGE PER UNIT) SC SCH (05:01)
[2020-06-22] MEDS: CATHETER FLUSH 10 ML SYR IV SCH (05:02)
[2020-06-22] MEDS: LEVOTHYROXINE 125 MCG (LEVOTHROID) TABLET PO SCH (05:02)
[2020-06-22 08:00] VITALS: BP 154/65
[2020-06-22] MEDS: ASPIRIN E.C. 81 MG (ECOTRIN) TAB PO SCH (08:35)
[2020-06-22] MEDS: N ACETYL CYSTEINE PO SCH (08:35)
[2020-06-22] MEDS: FUROSEMIDE 20 MG (LASIX) TAB PO SCH (08:36)
[2020-06-22] MEDS: AZITHROMYCIN 250 MG TAB (ZITHROMAX) PO SCH (08:36)
[2020-06-22] MEDS: PANTOPRAZOLE 40 MG (PROTONIX) TAB PO SCH (08:37)
[2020-06-22] MEDS: GABAPENTIN 400 MG (NEURONTIN) CAP PO SCH (08:38)
[2020-06-22] MEDS: LORazepam 1 MG (ATIVAN) TAB PO PRN (09:41)
[2020-06-22 11:03] VITALS: BP 154/65
--- NOTE | 2020-06-22 14:49 | Progress Note - Hospitalist ---
Subjective HPI/CC On Admission Date Seen by Provider: Jun 21, 2020 Time Seen by Provider: 10:00 Rhea Taveras is a 64-year-old female with past medical history of oxygen dependent COPD, heart failure with preserved ejection fraction, hypertension, hyperlipidemia, diabetes, coronary artery disease, morbid obesity, who presented with shortness of breath. She also reports having a cough. She has been having orthopnea. She reports having lower extremity swelling. She has not been having fevers or chills. She denies any abdominal pain. She denies nausea and vomiting. She denies diarrhea. She denies dysuria. Subjective/Events-last exam She is feeling better. Her breathing is improved. She feels like she is back to her baseline. She is worried about her forearm where the IV infiltrated. Objective Exam Vital Signs Vital Signs Date Time Temp Pulse Resp B/P (MAP) Pulse Ox O2 Delivery O2 Flow Rate FiO2 06/22/20 11:03 36.4 103 20 154/65 93 Nasal Cannula 3.00 Capillary Refill : Less Than 3 Seconds General Appearance: No Apparent Distress, Anxious, Obese Respiratory: No Respiratory Distress, Decreased Breath Sounds Cardiovascular: Regular Rate, Rhythm, No Edema, No Murmur Gastrointestinal: Normal Bowel Sounds, Non Tender, Soft Extremity: Normal Inspection, Non Tender, Pedal Edema Neurologic/Psychiatric: Alert, Oriented x3 Skin: Other (left forearm contusion, firm) Results/Procedures Lab Patient resulted labs reviewed. Imaging: Reviewed Imaging Report Assessment/Plan Assessment and Plan Assess & Plan/Chief Complaint Acute on chronic heart failure with preserved ejection fraction Chronic respiratory failure with hypoxia Continue Lasix Cardiology consutled, appreciate assistance Supplemental oxygen, at baseline Anxiety Continue home meds IV infiltration Contusion of left forearm No evidence of infection, monitor COPD HTN HLD CAD T2DM Continue home meds DVT prophylaxis: Lovenox Diagnosis/Problems Diagnosis/Problems (1) CHF exacerbation Status: Acute Qualifiers: Heart failure type: unspecified Qualified Codes: I50.9 - Heart failure, unspecified (2) Chronic respiratory failure with hypoxia Status: Chronic (3) IV infiltration Status: Acute Qualifiers: Encounter type: initial encounter Qualified Codes: T80.1XXA - Vascular complications following infusion, transfusion and therapeutic injection, initial encounter (4) Anxiety Status: Acute (5) Morbid obesity Status: Chronic (6) HTN (hypertension) Status: Chronic (7) HLD (hyperlipidemia) Status: Chronic (8) T2DM (type 2 diabetes mellitus) Status: Chronic (9) CAD (coronary artery disease) Status: Chronic RADHA BENTLEY MD Jun 22, 2020 14:49
--- NOTE | 2020-06-22 14:55 | Discharge Summary ---
Discharge Summary Hospital Course Problems/Dx: (1) CHF exacerbation Status: Acute Qualifiers: Qualified Codes: I50.9 - Heart failure, unspecified (2) Chronic respiratory failure with hypoxia Status: Chronic (3) IV infiltration Status: Acute Qualifiers: Qualified Codes: T80.1XXA - Vascular complications following infusion, tra nsfusion and therapeutic injection, initial encounter (4) Anxiety Status: Acute (5) Morbid obesity Status: Chronic (6) HTN (hypertension) Status: Chronic (7) HLD (hyperlipidemia) Status: Chronic (8) T2DM (type 2 diabetes mellitus) Status: Chronic (9) CAD (coronary artery disease) Status: Chronic Hospital Course Date of Admission: Jun 20, 2020 at 10:14 Admission Diagnosis : Acute on chronic respiratory failure with hypoxia Family Physician/Provider: Eric Quintanilla DO Date of Discharge: 06/22/20 Discharge Diagnosis: Acute on chronic respiratory failure with hypoxia Hospital Course: Rhea Taveras is a 64-year-old female with past medical history of hypertension, hyperlipidemia, diabetes, coronary artery disease, COPD, chronic respiratory failure with hypoxia, heart failure with preserved ejection fraction, morbid obesity, who was admitted with acute on chronic heart failure with preserved ejection fraction. Cardiology was consulted and assisted with her care. She was diuresed with IV Lasix and responded well. Her oxygen requirement quickly returned to her baseline requirement. Her course was complicated by IV infiltration in her left forearm. There is no evidence of infection, though she was very concerned about this. She was instructed to notify her physician or return to the emergency room if the site of the IV infiltration on her left forearm worsened. She was discharged home in stable condition. She should follow-up with her primary care physician in about a week. Labs and Pending Lab Test: Laboratory Tests 06/21/20 16:07: Glucometer 142H 06/21/20 20:18: Glucometer 158H 06/22/20 05:00: Glucometer 123H Microbiology 06/20/20 Influenza Types A,B Antigen (GIANLUCA) - Final, Complete Home Meds Active Reported Yupelri (Revefenacin) 175 Mcg/3 Ml Vial.neb 175 Mcg IH DAILY Perforomist (Formoterol Fumarate) 20 Mcg/2 Ml Vial.neb 20 Mcg IH BID Gabapentin 400 Mg Capsule 400 Mg PO TID Furosemide 20 Mg Tablet 20 Mg PO DAILY F-Gxufkn-x-Cysteine (Acetylcysteine) 600 Mg Capsule 600 Mg PO BID Saline Nose [place] (Sodium Chloride) 45 Ml [place] NSEACH UD PRN Zinc (Zinc Sulfate) 50 Mg Tablet 50 Mg PO DAILY Montelukast Sodium 10 Mg Tablet 10 Mg PO HS Ativan (Lorazepam) 1 Mg Tablet 1 Mg PO TID PRN Potassium Chloride 10 Meq Tab.er.prt 10 Meq PO DAILY Trazodone HCl 100 Mg Tablet 100 Mg PO HS Proair Hfa (Albuterol Sulfate) 1 Puff Puff 2 Puff IH Q4H PRN Vitamin D3 (Cholecalciferol (Vitamin D3)) 125 Mcg Tablet 125 Mcg PO DAILY Cyclobenzaprine HCl 10 Mg Tablet 10 Mg PO Q8H PRN Eszopiclone 2 Mg Tablet 2 Mg PO HS Pantoprazole Sodium 40 Mg Tablet.dr 40 Mg PO DAILY Levothyroxine Sodium 125 Mcg Tablet 125 Mcg PO DAILY Tylenol Extra Strength (Acetaminophen) 500 Mg Tablet 1,000 Mg PO Q6H PRN Aspirin EC (Aspirin) 81 Mg Tablet.dr 81 Mg PO DAILY Metoprolol Succinate 25 Mg Tab.er.24h 25 Mg PO DAILY Atorvastatin Calcium 10 Mg Tablet 10 Mg PO DAILY Losartan Potassium 50 Mg Tablet 50 Mg PO HS Tresiba Flextouch U-200 (Insulin Degludec) 200 Unit/1 Ml Insuln.pen 70 Units SC 1200 Assessment/Pt Instructions Take medications as prescribed. Follow-up with your primary care physician within a week. Return with worsening shortness of breath, redness/swelling/warmth around the site of your IV infiltration, or if you feel like you are getting worse. Discharge Planning: <30 minutes discharge planning Discharge Instructions Discharge Diet: ADA Diet Activity as Tolerated: Yes Consultations Cardiology Discharge Physical Examination Vital Signs Vital Signs Date Time Temp Pulse Resp B/P (MAP) Pulse Ox O2 Delivery O2 Flow Rate FiO2 06/22/20 11:03 36.4 103 20 154/65 93 Nasal Cannula 3.00 General Appearance: No Apparent Distress, Anxious, Obese Respiratory: No Respiratory Distress, Decreased Breath Sounds Cardiovascular: Regular Rate, Rhythm, No Murmur Gastrointestinal: Normal Bowel Sounds, Non Tender, Soft Extremity: Normal Inspection, Non Tender, Pedal Edema Skin: Other (left forearm contusion, firm, ecchymosis, no discharge) Neurologic/Psychiatric: Alert, Oriented x3, No Motor/Sensory Deficits Allergies: Coded Allergies: Penicillins (Verified Allergy, Unknown, 05/15/19) meperidine (Verified Allergy, Unknown, 09/06/19) morphine (Unverified Allergy, Unknown, 05/15/19) propoxyphene (Verified Allergy, Unknown, 05/15/19) topiramate (Verified Allergy, Unknown, 05/15/19) codeine (Verified Adverse Reaction, Unknown, UPSET STOMACH, 09/13/19) dapagliflozin (Verified Adverse Reaction, Unknown, yeast infection, 09/13/19) Copy Copies To 1: ERIC QUINTANILLA DO Discharge Summary Date of Admission Jun 20, 2020 at 10:14 Date of Discharge Discharge Date: Jun 22, 2020 Discharge Time: 11:00 Admission Diagnosis Acute on chronic heart failure with preserved ejection fraction Consults/Procedures Consulations Cardiology Discharge Diagnosis Acute on chronic heart failure with preserved ejection fraction (1) CHF exacerbation Status: Acute Qualifiers: Qualified Codes: I50.9 - Heart failure, unspecified (2) Chronic respiratory failure with hypoxia Status: Chronic (3) IV infiltration Status: Acute Qualifiers: Qualified Codes: T80.1XXA - Vascular complications following infusion, transfusion and therapeutic injection, initial encounter (4) Anxiety Status: Acute (5) Morbid obesity Status: Chronic (6) HTN (hypertension) Status: Chronic (7) HLD (hyperlipidemia) Status: Chronic (8) T2DM (type 2 diabetes mellitus) Status: Chronic (9) CAD (coronary artery disease) Status: Chronic RADHA BENTLEY MD Jun 22, 2020 14:55
== END 2020-06-22 11:02 | disposition home or self-care (01) ==
LOC: EDUNIT# 06:23 → ER 06:25 → 4TH 10:14
PROVIDERS: ADMIT Internal Medicine; ATTEND Internal Medicine
DX: I11.0 Hypertensive heart disease with heart failure (principal); I50.9 Heart failure, unspecified; J96.21 Acute and chronic respiratory failure with hypoxia; F41.9 Anxiety disorder, unspecified; E66.01 Morbid (severe) obesity due to excess calories; E78.5 Hyperlipidemia, unspecified; E11.9 Type 2 diabetes mellitus without complications; I25.10 Atherosclerotic heart disease of native coronary artery without angina pectoris; E78.00 Pure hypercholesterolemia, unspecified; K21.9 Gastro-esophageal reflux disease without esophagitis; E03.9 Hypothyroidism, unspecified; F32.9 Major depressive disorder, single episode, unspecified; J44.1 Chronic obstructive pulmonary disease with (acute) exacerbation; M41.9 Scoliosis, unspecified; M48.00 Spinal stenosis, site unspecified; Z68.41 Body mass index [BMI] 40.0-44.9, adult; T80.1XXA Vascular complications following infusion, transfusion and therapeutic injection, initial encounter; Z79.4 Long term (current) use of insulin; Z79.899 Other long term (current) drug therapy; Z79.82 Long term (current) use of aspirin; Z88.0 Allergy status to penicillin; Z88.5 Allergy status to narcotic agent; Z88.8 Allergy status to other drugs, medicaments and biological substances; Z79.890 Hormone replacement therapy; Z20.822 Contact with and (suspected) exposure to COVID-19
CPT/HCPCS: 36410; 71045; 71275; 76937; 80053; 80061; 82962 ×3; 83615; 83735; 83874; 83880; 84145; 84439; 84443; 84484; 85007; 85027; 85379; 85610; 85730; 86141; 87804; 93005; 93041; 93306; 94640 ×3; 94760 ×3; 96374; 96375; 99284; C1751; U0002; 36415; 87635; G0378

== ENCOUNTER → 2021-05-22 | Outpatient (CLI) | payer MEDICARE, OTHER ==
[~2021-05-22] MED LIST changes: +ACET600C5 PO; +CYCL10TA25 PO; -CYCL10TA9 PO; +FORM20VI IH; +FURO20TA4 PO; +MONT-40 PO; -MONT10TA32 PO; +POTA10TA37 PO; +REVE175V IH; +SODI45SP9 NSEACH; +TRAZ-227 PO; +ZINC220T3 PO
[2021-05-22 10:07] LABS: ABG BASE EXCESS 0.3 MMOL/L (-2.5-2.5); ABG OXYGEN SATURATION 92 % (94-100); ABG PCO2 42 MMHG (35-45); ABG PH 7.39 (7.37-7.43); ABG PO2 62 MMHG (79-93)
[2021-05-22 10:12] LABS: ALLENS TEST YES-POS; INSPIRED O2 4 L; PATIENT TEMP 36.9; VENTILATOR NO
== END ==
LOC: CARD 09:00
PROVIDERS: ATTEND Internal Medicine Critical Care Medicine
DX: I08.2 Rheumatic disorders of both aortic and tricuspid valves (principal); J44.1 Chronic obstructive pulmonary disease with (acute) exacerbation; J18.0 Bronchopneumonia, unspecified organism; J96.11 Chronic respiratory failure with hypoxia; J45.40 Moderate persistent asthma, uncomplicated; I50.9 Heart failure, unspecified
CPT/HCPCS: 36600; 82805; 93306

== ENCOUNTER → 2021-07-23 | Outpatient (CLI) | payer MEDICARE, OTHER ==
[~2021-07-23] MED LIST changes: +CATHETER FLUSH 10 ML SYR IVP PRN
--- NOTE | 2021-07-23 14:56 | Diagnostic Imaging Report ---
INDICATION: Pulmonary arterial hypertension. TECHNIQUE: The patient was administered 5.5 mCi of technetium 99M MAA intravenously and imaging over the chest was performed in multiple obliquities. FINDINGS: There is some mild heterogeneity in the perfusion pattern to both lungs; however, no definite medium or large sized pleural-based perfusion defects are identified. IMPRESSION: Perfusion heterogeneity but no definite pleural-based perfusion defect is seen. Dictated by: Dictated on workstation # [id number]
== END ==
LOC: CARD 12:57
PROVIDERS: ATTEND Internal Medicine Critical Care Medicine
DX: I27.23 Pulmonary hypertension due to lung diseases and hypoxia (principal)
CPT/HCPCS: 78580; A9540

== ENCOUNTER 2021-08-11 04:02 | Observation (INO) | payer MEDICARE, OTHER ==
[~2021-08-11 04:02] MED LIST changes: -CATHETER FLUSH 10 ML SYR IVP PRN
--- NOTE | 2021-08-11 04:26 | ED General ---
General Chief Complaint: Respiratory Problems Stated Complaint: SOA Source of Information: Patient (SOMEWHAT LIMITED HISTORIAN), Old Records (DRAKE BRAVO DO) History of Present Illness Date Seen by Provider: Aug 11, 2021 Time Seen by Provider: 04:05 Initial Comments PT ARRIVES VIA EMS FROM HOME PT HAS O2 DEPENDENT COPD AT 4L/MIN CONTINOUSLY PT HAS HAD SHORTNESS OF BREATH AND "REALLY BAD CHEST PAIN" FOR THE LAST "COUPLE OF DAYS" PAIN IN CHEST IS DIFFUSE AND RATES PAIN 8/10. PAIN IS CONSTANT AND IS WORSE WITH COUGHING. TOOK TYLENOL AT 2100 LAST NIGHT WITHOUT RELIEF. PT STATES SHE HAS HAD A COUGH FOR THE LAST COUPLE OF DAYS WITH COLORED SPUTUM. STATES SHE ALWAYS HAS A COUGH, BUT HAS BEEN WORSE FOR THE LAST COUPLE OF DAYS NO FEVER STATES SHE HAS HAD "A LITTLE BIT OF SWEATS" --MOSTLY WITH ANY EXERTION. SHORTNESS OF BREATH IS MUCH WORSE WITH MINIMAL EXERTION USED ALBUTEROL INHALER AT MIDNIGHT WITHOUT IMPROVEMENT DENIES SWELLING IN LEGS/FEET NO SYNCOPE NO NAUSEA/VOMITING PT STATES SHE HAS HAD THE COVID VACCINE X 5, PLUS FLU VACCINE. PT HAS DIABETES, HTN, CHRONIC ANEMIA ( HAD IRON INFUSION AT DR. ESCAMILLA'S OFFICE LAST WEEK AND IS SCHEDULED TO HAVE ANOTHER ONE THIS COMING WEEK), COPD, PERIPHERAL NEUROPATHY, CAD WITH STENT, AND CAROTID DISEASE WITH CAROTID ENDARTERECTOMY. PCP:DR. BAILEY CHEMICAL PATHOLOGIST: DR. GAVIN AT [facility] HAND: DR. GRAHAM AT [facility] HEMATOLOGY/ONCOLOGY: DR. ESCAMILLA (DRAKE BRAVO DO) Allergies and Home Medications Allergies Coded Allergies: Penicillins (Verified Allergy, Unknown, 05/15/19) meperidine (Verified Allergy, Unknown, 09/06/19) morphine (Unverified Allergy, Unknown, 05/15/19) propoxyphene (Verified Allergy, Unknown, 05/15/19) topiramate (Verified Allergy, Unknown, 05/15/19) codeine (Verified Adverse Reaction, Unknown, UPSET STOMACH, 09/13/19) dapagliflozin (Verified Adverse Reaction, Unknown, yeast infection, 09/13/19) Patient Home Medication List Home Medication List Reviewed: Yes (CROW HERNANDEZ MD) Acetaminophen (Tylenol Extra Strength) 500 Mg Tablet, 1,000 MG PO BID PRN for PAIN-MILD, (Reported) Entered as Reported by: MOODY FRANCO on 11/02/17 1632 Last Action: Reviewed Ascorbate Calcium (Vitamin C) 500 Mg Tablet, 500 MG PO DAILY, (Reported) Entered as Reported by: TEJA PORTILLO on 08/12/21 132 Last Action: Reviewed Aspirin (Aspirin EC) 81 Mg Tablet.dr, 81 MG PO DAILY, (Reported) Entered as Reported by: MOODY FRANCO on 11/02/17 163 Last Action: Reviewed Budesonide (Budesonide) 0.5 Mg/2 Ml Ampul.neb, 0.5 MG IH BID, (Reported) Entered as Reported by: TEJA PORTILLO on 08/12/21 1503 Last Action: Reviewed Buspirone HCl (Buspirone HCl) 5 Mg Tablet, 5 MG PO TID, (Reported) Entered as Reported by: Linh Cat on 08/11/21 100 Last Action: Reviewed Cholecalciferol (Vitamin D3) (Vitamin D3) 125 Mcg (5000 Unit) Tablet, 125 MCG PO DAILY, (Reported) Entered as Reported by: TEJA PORTILLO on 08/12/21 1324 Last Action: Reviewed Diclofenac Sodium (Voltaren Arthritis Pain) 1 % Gel..gram., 1 APPLIC TP DAILY, (Reported) Entered as Reported by: TEJA PORTILLO on 08/12/21 132 Last Action: Reviewed Formoterol Fumarate (Perforomist) 20 Mcg/2 Ml Vial.neb, 20 MCG IH BID, (Reported) Entered as Reported by: TEJA PORTILLO on 08/12/21 1503 Last Action: Reviewed Furosemide (Furosemide) 40 Mg Tablet, 40 MG PO DAILY, (Reported) Entered as Reported by: Linh Cat on 08/11/21 100 Last Action: Reviewed Gabapentin (Neurontin) 300 Mg Capsule, 300 MG PO BID, (Reported) Entered as Reported by: TEJA PORTILLO on 08/12/21 1320 Last Action: Reviewed Insulin Aspart (Insulin Aspart Flexpen) 100 Unit/Ml (3 Ml) Insuln.pen, 6 UNIT SQ ACHS, (Reported) Entered as Reported by: Linh Cat on 08/11/21 100 Last Action: Converted Insulin Degludec (Tresiba Flextouch U-200) 200 Unit/1 Ml Insuln.pen, 20 UNITS SC DAILY, (Reported) Entered as Reported by: MOODY FRANCO on 11/02/17 163 Last Action: Converted Insulin Degludec (Tresiba Flextouch U-200) 200 Unit/Ml (3 Ml) Insuln.pen, 40 UNIT SQ HS, (Reported) Entered as Reported by: TEJA PORTILLO on 08/12/21 1319 Last Action: Converted Levothyroxine Sodium (Levothyroxine Sodium) 125 Mcg Tablet, 125 MCG PO DAILY, (Reported) Entered as Reported by: ALHAJI HORTA on 09/13/19 0833 Last Action: Reviewed Losartan Potassium (Losartan Potassium) 50 Mg Tablet, 50 MG PO HS, (Reported) Entered as Reported by: MOODY FRANCO on 11/02/171631 Last Action: Reviewed Melatonin/Pyridoxine HCl (B6) (Melatonin 3 mg Tablet) 3 Mg-10 Mg Tablet, 1 EACH PO HS, (Reported) Entered as Reported by: Linh Cat on 08/11/21 100 Last Action: Reviewed Metoprolol Succinate (Metoprolol Succinate) 25 Mg Tab.er.24h, 25 MG PO DAILY, (Reported) Entered as Reported by: MOODY FRANCO on 11/02/17 163 Last Action: Reviewed Montelukast Sodium (Montelukast Sodium) 10 Mg Tablet, 10 MG PO HS, (Reported) Entered as Reported by: TROY HAQUE on 06/20/201406 Last Action: Reviewed Pantoprazole Sodium (Pantoprazole Sodium) 40 Mg Tablet.dr, 40 MG PO DAILY, (Reported) Entered as Reported by: ALHAJI HORTA on 09/13/1933 Last Action: Reviewed Potassium Chloride (Potassium Chloride) 10 Meq Tab.er.prt, 10 MEQ PO DAILY, (Reported) Entered as Reported by: TROY HAQUE on 06/20/201406 Last Action: Reviewed Revefenacin (Yupelri) 175 Mcg/3 Ml Vial.neb, 175 MCG IH 1200, (Reported) Entered as Reported by: TEJA PORTILLO on 08/12/21 1504 Last Action: Reviewed Sildenafil Citrate (Sildenafil) 20 Mg Tablet, 20 MG PO TID, (Reported) Entered as Reported by: Linh Cat on 08/11/21 100 Last Action: Reviewed Simvastatin (Simvastatin) 10 Mg Tablet, 10 MG PO HS, (Reported) Entered as Reported by: Linh Cta on 08/11/21 1009 Last Action: Reviewed Trazodone HCl (Trazodone HCl) 100 Mg Tablet, 100 MG PO HS, (Reported) Entered as Reported by: TROY HAQUE on 06/20/20 1407 Last Action: Reviewed Venlafaxine HCl (Venlafaxine HCl ER) 150 Mg Cap.er.24h, 150 MG PO DAILY, (Reported) Entered as Reported by: TEJA PORTILLO on 08/12/21 1217 Last Action: Reviewed Zinc Amino Acid Chelate (Zinc) 50 Mg Tablet, 50 MG PO DAILY, (Reported) Entered as Reported by: TEJA PORTILLO on 08/12/21 1323 Last Action: Reviewed Discontinued Medications Acetylcysteine (H-Gfmdjq-k-Cysteine) 600 Mg Capsule, 600 MG PO BID, (Reported) Discontinued Reason: No Longer Taking Entered as Reported by: TROY HAQUE on 06/20/201406 Last Action: Discontinued Albuterol Sulfate (Proair Hfa) 1 Puff Puff, 2 PUFF IH Q4H PRN for WHEEZING, (Reported) Discontinued Reason: No Longer Taking Entered as Reported by: IRIS STRINGER on 05/15/20 1314 Last Action: Discontinued Atorvastatin Calcium (Atorvastatin Calcium) 10 Mg Tablet, 10 MG PO DAILY, (Reported) Discontinued Reason: No Longer Taking Entered as Reported by: MOODY FRANCO on 11/02/17 1632 Last Action: Discontinued Cholecalciferol (Vitamin D3) (Vitamin D3) 125 Mcg Tablet, 125 MCG PO DAILY, (Reported) Discontinued Reason: No Longer Taking Entered as Reported by: IRIS STRINGER on 05/15/20 1314 Last Action: Discontinued Cyclobenzaprine HCl (Cyclobenzaprine HCl) 10 Mg Tablet, 10 MG PO Q8H PRN for MUSCLE SPASMS, (Reported) Discontinued Reason: No Longer Taking Entered as Reported by: ALHAJI HORTA on 09/13/19832 Last Action: Discontinued Eszopiclone (Eszopiclone) 2 Mg Tablet, 2 MG PO HS, (Reported) Discontinued Reason: No Longer Taking Entered as Reported by: ALHAJI HORTA on 09/13/19832 Last Action: Discontinued Formoterol Fumarate (Perforomist) 20 Mcg/2 Ml Vial.neb, 20 MCG IH BID, (Reported) Discontinued Reason: No Longer Taking Entered as Reported by: TROY HAQUE on 06/20/201409 Last Action: Discontinued Furosemide (Furosemide) 20 Mg Tablet, 20 MG PO DAILY, (Reported) Discontinued Reason: New Order Entered as Reported by: TROY HAQUE on 06/20/201406 Last Action: Discontinued Gabapentin (Gabapentin) 400 Mg Capsule, 400 MG PO TID, (Reported) Discontinued Reason: Prescription changed Entered as Reported by: TROY HAQUE on 06/20/201406 Last Action: Continued Gabapentin (Gabapentin) 300 Mg/6 Ml (6 Ml) Solution, 300 MG PO BID, (Reported) Discontinued Reason: Prescription changed Entered as Reported by: TEJA PORTILLO on 08/12/21 131 Last Action: New Order Lorazepam (Ativan) 1 Mg Tablet, 1 MG PO TID PRN for ANXIETY, (Reported) Discontinued Reason: No Longer Taking Entered as Reported by: TROY HAQUE on 06/20/201406 Last Action: Discontinued Revefenacin (Yupelri) 175 Mcg/3 Ml Vial.neb, 175 MCG IH DAILY, (Reported) Discontinued Reason: No Longer Taking Entered as Reported by: TROY HAQUE on 06/20/201409 Last Action: Discontinued Sodium Chloride (Saline Nose Eclectic) 45 Ml Eclectic, SPRAY NSEACH UD PRN for DRY NOSE/CONGESTION, (Reported) Discontinued Reason: No Longer Taking Entered as Reported by: TROY HAQUE on 06/20/201406 Last Action: Discontinued Zinc Sulfate (Zinc) 50 Mg Tablet, 50 MG PO DAILY, (Reported) Discontinued Reason: No Longer Taking Entered as Reported by: TROY HAQUE on 06/20/201406 Last Action: Discontinued Review of Systems Review of Systems Constitutional: see HPI, diaphoresis EENTM: no symptoms reported Respiratory: see HPI, cough, dyspnea on exertion, orthopnea, phlegm, short of breath, wheezing Cardiovascular: see HPI, chest pain; No palpitations, No syncope Gastrointestinal: no symptoms reported; No abdominal pain, No nausea, No vomiting Genitourinary: no symptoms reported Musculoskeletal: no symptoms reported Skin: no symptoms reported Psychiatric/Neurological: No Symptoms Reported Hematologic/Lymphatic: See HPI, Anemia Immunological/Allergic: no symptoms reported (SHELLY,DRAKE Timmy RUCKER) Past Dzqsqwc-Rbdlea-Rwhqxt Hx Immunizations Up To Date Tetanus Booster (TDap): Unknown (SHELLYDRAKE Timmy RUCKER) Seasonal Allergies Seasonal Allergies: No (ANDREA BRAVOA Timmy RUCKER) Past Medical History Surgeries: Yes (FOOT, bilat CTR, carotid endartectomy, bilat TKR) Appendectomy, Cardiac, Coronary Stent, Gallbladder, Orthopedic, Thyroidectomy, Vascular Surgery Respiratory: Yes (CPAP - 3L NC O2 ) Asthma, Pneumonia, Sleep Apnea, COPD Currently Using CPAP: Yes Currently Using BIPAP: No Cardiac: Yes (STENT; CAROTID ENDARTERECTOMY) Cardiomyopathy, Chronic Edema/Swelling, Coronary Artery Disease, High Cholesterol, Hypertension, Valvular Heart Disease Neurological: Yes Neuropathy 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 Disorders: No 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 History: Menopausal Sexually Transmitted Disease: No HIV/AIDS: No Genitourinary: Yes UTI-Chronic Gastrointestinal: Yes Colitis, Gastroesophageal Reflux Musculoskeletal: Yes (ARTHRITIS, spinal stenosis) Degenerate Disk Disease, Arthritis, Scoliosis, Chronic Back Pain Endocrine: Yes Diabetes, Insulin dep, Hypothyroidsim HEENT: Yes (nosebleeds) Cancer: No Psychosocial: Yes Anxiety, Depression Integumentary: No Blood Disorders: Yes (ANEMIA) Adverse Reaction/Blood Tranf: No (SHELLYDRAKE Timmy RUCKER) Family Medical History Alzheimer's disease G8 SISTER Diabetes mellitus 19 FATHER Hypertension 19 FATHER 19 MOTHER Myocardial infarction 19 FATHER 19 MOTHER Neoplasm G8 SISTER No Pertinent Family Hx Noncontributory (SHELLYDRAKE Timmy RUCKER) Physical Exam Vital Signs Vital Signs - First Documented (CROW HERNANDEZ MD) Vital Signs Capillary Refill : (SHELLYDRAKE Warner ) Height, Weight, BMI Height: 5'4.00" Weight: 246lbs. 6.0oz. 111.602404at; 42.38 BMI Method:Stated General Appearance: No Apparent Distress, WD/WN, Other (ABLE TO TALK IN FULL SE NTENCES. DOES NOT APPEAR TO BE IN ANY DISCOMFORT OR DISTRESS AT THIS TIME. ) HEENT: Pale Conjunctivae (L), Pale Conjunctivae (R) Neck: Normal Inspection Respiratory: Normal Breath Sounds (BUT DECREASED IN BASES), No Accessory Muscle Use, No Respiratory Distress; No Rales, No Rhonci, No Wheezing; Other (ENTIRE ANTERIOR CHEST IS MARKEDLY TENDER TO PALPATION--REPRODUCES PAIN ) Cardiovascular: Regular Rate, Rhythm, No JVD, No Murmur Gastrointestinal: Non Tender, Soft Back: No CVA Tenderness Extremity: Normal Capillary Refill, Normal Range of Motion, Non Tender, Pedal Edema (1+ BILATERALLY) Neurologic/Psychiatric: Alert, Oriented x3, No Motor/Sensory Deficits, Normal Mood/Affect, mental health tech II-XII Norm as Tested Skin: Normal Color, Warm/Dry; No Rash (DRAKE BRAVO DO) Focused Exam Sepsis Stage: Ruled Out Reason for ruling out sepsis: DOES NOT MEET CRITERIA Possible Source: Pulmonary (DRAKE BRAVO DO) Lactate Level 08/11/21 04:25: Lactic Acid Level 1.75 (CROW HERNANDEZ MD) Respiratory: Normal Breath Sounds, No Accessory Muscle Use, No Respiratory Dis tress Cardiovascular: Regular Rate, Rhythm, No Murmur Capillary Refill: Less Than 3 Seconds Skin: normal color, warm/dry (DRAKE BRAVO DO) Lactic Acid Level Laboratory Tests Test 08/11/21 04:25 Lactic Acid Level 1.75 MMOL/L (0.50-2.00) (CROW HERNANDEZ MD) Within 3hrs of presentation: Blood cultures prior to ABX's, Focus exam, Lactate level, Other (FLUIDS HELD PT HAS NORMAL BP, NO TACHYCARDIA AND CURRENTLY HAS CHF. ) (DRAKE BRAVO DO) Progress/Results/Core Measures Suspected Sepsis SIRS Temperature: Pulse: Respiratory Rate: Laboratory Tests 08/11/21 04:25: White Blood Count 11.8H Blood Pressure / Mean: 08/11/21 04:25: Lactic Acid Level 1.75 Laboratory Tests 08/11/21 04:25: Creatinine 1.25, INR Comment 1.1, Platelet Count 178, Total Bilirubin 0.4 (DRAKE BRAVO DO) Results/Orders Lab Results Laboratory Tests Test 08/11/21 04:10 08/11/21 04:25 08/11/21 04:50 Range/Units Influenza Type A (RT-PCR) Not Detected Not Detecte Influenza Type B (RT-PCR) Not Detected Not Detecte SARS-CoV-2 RNA (RT-PCR) Not Detected Not Detecte White Blood Count 11.8 H 4.3-11.0 10^3/uL Red Blood Count 3.06 L 3.80-5.11 10^6/uL Hemoglobin 9.3 L 11.5-16.0 g/dL Hematocrit 30 L 35-52 % Mean Corpuscular Volume 97 80-99 fL Mean Corpuscular Hemoglobin 30 25-34 pg Mean Corpuscular Hemoglobin Concent 31 L 32-36 g/dL Red Cell Distribution Width 15.7 H 10.0-14.5 % Platelet Count 178 130-400 10^3/uL Mean Platelet Volume 9.6 9.0-12.2 fL Immature Granulocyte % (Auto) 1 % Neutrophils (%) (Auto) 86 H 42-75 % Lymphocytes (%) (Auto) 7 L 12-44 % Monocytes (%) (Auto) 5 0-12 % Eosinophils (%) (Auto) 1 0-10 % Basophils (%) (Auto) 1 0-10 % Neutrophils # (Auto) 10.1 H 1.8-7.8 10^3/uL Lymphocytes # (Auto) 0.8 L 1.0-4.0 10^3/uL Monocytes # (Auto) 0.6 0.0-1.0 10^3/uL Eosinophils # (Auto) 0.1 0.0-0.3 10^3/uL Basophils # (Auto) 0.1 0.0-0.1 10^3/uL Immature Granulocyte # (Auto) 0.1 0.0-0.1 10^3/uL Neutrophils % (Manual) 85 % Lymphocytes % (Manual) 9 % Monocytes % (Manual) 4 % Eosinophils % (Manual) 2 % Polychromasia SLIGHT Anisocytosis SLIGHT Microcytosis SLIGHT Elliptocytes SLIGHT Erythrocyte Sedimentation Rate 54 H 0-30 MM/HR Prothrombin Time 14.8 H 12.2-14.7 SEC INR Comment 1.1 0.8-1.4 Activated Partial Thromboplast Time 39 H 24-35 SEC D-Dimer 0.82 H 0.00-0.49 UG/ML Sodium Level 138 135-145 MMOL/L Potassium Level 4.7 3.6-5.0 MMOL/L Chloride Level 101 98-107 MMOL/L Carbon Dioxide Level 26 21-32 MMOL/L Anion Gap 11 5-14 MMOL/L Blood Urea Nitrogen 19 H 7-18 MG/DL Creatinine 1.25 0.60-1.30 MG/DL Estimat Glomerular Filtration Rate 47 BUN/Creatinine Ratio 15 Glucose Level 207 H 70-105 MG/DL Lactic Acid Level 1.75 0.50-2.00 MMOL/L Calcium Level 8.0 L 8.5-10.1 MG/DL Corrected Calcium 8.5 8.5-10.1 MG/DL Magnesium Level 1.9 1.6-2.4 MG/DL Total Bilirubin 0.4 0.1-1.0 MG/DL Aspartate Amino Transf (AST/SGOT) 16 5-34 U/L Alanine Aminotransferase (ALT/SGPT) 16 0-55 U/L Alkaline Phosphatase 106 40-136 U/L Total Creatine Kinase 34 29-168 U/L Creatine Kinase MB 1.0 <6.6 NG/ML Myoglobin 55.9 10.0-92.0 NG/ML Troponin I < 0.028 <0.028 NG/ML C-Reactive Protein High Sensitivity 3.62 H 0.00-0.50 MG/DL B-Type Natriuretic Peptide 1214.7 H <100.0 PG/ML Total Protein 6.5 6.4-8.2 GM/DL Albumin 3.4 3.2-4.5 GM/DL Procalcitonin 0.04 <0.10 NG/ML Urine Color YELLOW Urine Clarity CLEAR Urine pH 6.0 5-9 Urine Specific [place] 1.020 1.016-1.022 Urine Protein NEGATIVE NEGATIVE Urine Glucose (UA) TRACE H NEGATIVE Urine Ketones NEGATIVE NEGATIVE Urine Nitrite NEGATIVE NEGATIVE Urine Bilirubin NEGATIVE NEGATIVE Urine Urobilinogen 0.2 < = 1.0 MG/DL Urine Leukocyte Esterase NEGATIVE NEGATIVE Urine RBC (Auto) NEGATIVE NEGATIVE Urine RBC NONE /HPF Urine WBC NONE /HPF Urine Squamous Epithelial Cells 0-2 /HPF Urine Crystals NONE /LPF Urine Bacteria NEGATIVE /HPF Urine Casts NONE /LPF Urine Mucus NEGATIVE /LPF Urine Culture Indicated NO (CROW HERNANDEZ MD) Micro Results Microbiology 08/11/21 Urine Culture - Final, Complete Lactobacillus gasseri 08/11/21 Blood Culture - Preliminary, Resulted No growth 08/11/21 Blood Culture - Preliminary, Resulted No growth (CROW HERNANDEZ MD) Medications Given in ED (CROW HERNANDEZ MD) Vital Signs/I&O 08/11/21 08/11/21 08/11/21 04:02 04:02 04:02 Temp 37.3 Pulse 100 Resp 20 B/P (MAP) 139/65 (89) Pulse Ox 93 4 O2 Delivery Nasal Cannula Nasal Cannula Nasal Cannula O2 Flow Rate 4.00 4.00 (CROW HERNANDEZ MD) Vital Signs/I&O Capillary Refill : (DRAKE BRAVO DO) Progress Note : Progress Note SEPSIS PROTOCOL AND CHEST PAIN PROTOCOL INITIATED O2 SATS 99% ON 4L/NC AT REST--DROP TO 80% WITH SIMPLE TRANSFER FROM EMS CART TO ER CART AND PT IS SHORT OF BREATH WITH THIS MINIMAL MOVEMENT. GIVEN ASPIRIN AND NITROPASTE FOR CHEST PAIN --NO RELIEF OF PAIN GIVEN LASIX FOR CHF GIVEN TORADOL FOR CHEST PAIN (DRAKE BRAVO DO) Progress Note : Time: 07:47 Progress Note Patient reassessed just prior to talking to Dr. Negrete. She is resting comfortably but still sounds just a little dyspneic as described by Dr. BRAVO. She is not having any active wheezing. Her weight is just increased. She is a rather large woman and has likely difficulty with breathing while laying flat. She is reclined at about 30 degrees currently. She does not have signs of significant volume overload. 1+ pitting edema in her bilateral lower extremities. I do not hear crackles in her lungs but this may be secured due to body habitus. She is slightly tachycardic with a heart heart rate of 100. Her oxygen saturations on her 4 L are 99%. Her blood pressure is good. We talked about admission, she is comfortable with this. Patient has a Bran in place and good output. I have reviewed her labs, she is chronically anemic. Her BNP is almost double what has been at our facility in the past. Her production control clerk is Dr. Gavin at [facility] in [place] and she does see the ear flap binder, Dr. Murcia and in [place] as well. All questions are sought and answered. (CROW HERNANDEZ MD) ECG Initial ECG Impression Date: Aug 11, 2021 Initial ECG Impression Time: 04:19 Initial ECG Rate: 97 Initial ECG Rhythm: Normal Sinus Initial ECG Impression: Nonspecific Changes (DRAKE BRAVO DO) Diagnostic Imaging Comments CXR--MILD CHF, PENDING RADIOLOGIST REVIEW CT CHEST ANGIOGRAM-- (DRAKE BRAVO DO) Diagonstic Imaging: CT Plain Films/CT/US/NM/MRI: chest Comments NAME: RUDDY G[facility] REC#: [id number] PT STATUS: REG ER : 1955 PHYSICIAN: DRAKE BRAVO DO ADMIT DATE: 08/11/21/ER Draft Date of Exam:08/11/21 CT ANGIO CHEST W EXAMINATION: CT angiography of the chest. TECHNIQUE: Contrast enhanced thin section helical images were obtained through the chest with intravenous contrast timed for the optimal opacification of the arterial structures per CTA protocol. Post-processing, reconstructions and interpretation of angiographic images of the vessels was performed. 3D MIP reconstructions were performed and reviewed. All CT scans use one or more of the following dose optimizing techniques: automated exposure control, MA and/or KvP adjustment based on a patient size and exam type, or iterative reconstruction. HISTORY: Shortness of breath COMPARISON: None available. FINDINGS: No pulmonary embolism is seen. There is mild pulmonary edema with groundglass and septal line thickening. There are small bilateral pleural effusions. No pneumonia. No pneumothorax. No suspicious nodules. There is no axillary or supraclavicular lymphadenopathy. There are mildly enlarged mediastinal lymph nodes, not likely reactive. Heart size is normal. There are mild coronary artery calcifications. No pericardial effusion. Aorta is normal in caliber. Limited views of the upper abdomen show changes of cholecystectomy. There are no suspicious osseus lesions. IMPRESSION: 1. No pulmonary embolism. 2. Mild pulmonary edema. Dictated on workstation # [id number] Dict: 08/11/21 0712 Trans: 08/11/21 0717 [facility] [id number] Interpreted by: KARTHIK CASTRO MD Electronically signed by: (CROW HERNANDEZ MD) Departure Communication (Admissions) Time/Spoke to Admitting Phy: 07:[address] Negrete - will admit, obs. Consult to Kathryn barr to notify on arrival to the floor (CROW HERNANDEZ MD) Impression Primary Impression: COPD exacerbation Additional Impressions: Chest pain Chronic anemia CHF (congestive heart failure) IDDM (insulin dependent diabetes mellitus) HX OF CAD WITH STENT Disposition: ADMITTED INPATIENT Condition: Stable Admissions Decision to Admit Reason: Admit from ER (General) Decision to Admit/Date: Aug 11, 2021 Time/Decision to Admit Time: 07:42 (CROW HERNANDEZ MD) Departure-Patient Inst. Referrals: FERN BAILEY DO (PCP/Family) Primary Care Physician DRAKE BARVO DO Aug 11, 2021 04:26 CROW HERNANDEZ MD Aug 11, 2021 07:20
[2021-08-11] MEDS ORDERED: NITROGLYCERIN 0.4 MG SL TABS BTL 25'S SL PRN (04:30)
[2021-08-11] MEDS ORDERED: ASPIRIN 81 MG CHEW (CHILDREN'S ASA) PO ONE (04:30)
[2021-08-11 04:35] LABS: BASOPHILS # (AUTO) 0.1 10^3/uL (0.0-0.1); BASOPHILS % (AUTO) 1 % (0-10); EOSINOPHILS # (AUTO) 0.1 10^3/uL (0.0-0.3); EOSINOPHILS % (AUTO) 1 % (0-10); HEMATOCRIT 30 % (35-52); HEMOGLOBIN 9.3 g/dL (11.5-16.0); LYMPHOCYTES # (AUTO) 0.8 10^3/uL (1.0-4.0); LYMPHOCYTES % (AUTO) 7 % (12-44); MEAN CORPUSCULAR HEMOGLOBIN 30 pg (25-34); MEAN CORPUSCULAR HGB CONC 31 g/dL (32-36); MEAN CORPUSCULAR VOLUME 97 fL (80-99); MEAN PLATELET VOLUME 9.6 fL (9.0-12.2); MONOCYTES # (AUTO) 0.6 10^3/uL (0.0-1.0); MONOCYTES % (AUTO) 5 % (0-12); NEUTROPHILS # (AUTO) 10.1 10^3/uL (1.8-7.8); NEUTROPHILS % (AUTO) 86 % (42-75); PLATELET COUNT 178 10^3/uL (130-400); WHITE BLOOD COUNT 11.8 10^3/uL (4.3-11.0)
[2021-08-11] MEDS ORDERED: NITROGLYCERIN 2% OINT 1 GM UNIT DOSE PACKET TOP ONE (04:45)
[2021-08-11 04:47] LABS: ALBUMIN 3.4 GM/DL (3.2-4.5); CHLORIDE 101 MMOL/L (98-107); POTASSIUM 4.7 MMOL/L (3.6-5.0); SODIUM 138 MMOL/L (135-145)
[2021-08-11 04:50] LABS: GLUCOSE 207 MG/DL (70-105); TOTAL PROTEIN 6.5 GM/DL (6.4-8.2)
[2021-08-11 04:51] LABS: CARBON DIOXIDE 26 MMOL/L (21-32)
[2021-08-11 04:52] LABS: BILIRUBIN,TOTAL 0.4 MG/DL (0.1-1.0)
[2021-08-11 04:53] LABS: ALKALINE PHOSPHATASE 106 U/L (40-136)
[2021-08-11 04:54] LABS: CREATININE SERUM 1.25 MG/DL (0.60-1.30); GFR ESTIMATED 47
[2021-08-11 04:55] LABS: BUN/CREATININE RATIO 15
[2021-08-11 04:56] LABS: ALANINE AMINOTRANSFERASE 16 U/L (0-55)
[2021-08-11 04:57] LABS: FIBRIN DEGRADATION PRODUCTS 0.82 UG/ML (0.00-0.49); INR 1.1 (0.8-1.4); MAGNESIUM 1.9 MG/DL (1.6-2.4); PROTHROMBIN TIME PATIENT 14.8 SEC (12.2-14.7)
[2021-08-11 04:58] LABS: CREATINE KINASE 34 U/L (29-168)
[2021-08-11 05:02] LABS: BILIRUBIN,URINE NEGATIVE (NEGATIVE); CLARITY,URINE CLEAR; COLOR,URINE YELLOW; GLUCOSE, URINE (UA) TRACE (NEGATIVE); KETONES,URINE NEGATIVE (NEGATIVE); LEUKOCYTE ESTERASE ,URINE NEGATIVE (NEGATIVE); NITRITE,URINE NEGATIVE (NEGATIVE); PROTEIN,URINE NEGATIVE (NEGATIVE)
[2021-08-11 05:04] LABS: ERYTHROCYTE SEDIMENTATION RATE 54 MM/HR (0-30)
[2021-08-11 05:28] LABS: ANISOCYTOSIS SLIGHT; ELLIPT/OVALOCYTES SLIGHT; EOSINOPHILS % (MANUAL) 2 %; LYMPHOCYTES % (MANUAL) 9 %; MICROCYTOSIS SLIGHT; MONOCYTES % (MANUAL) 4 %; NEUTROPHILS % (MANUAL) 85 %; POLYCHROMASIA SLIGHT
[2021-08-11] MEDS ORDERED: KETOROLAC 30 MG/ML VIAL IVP ONE (05:30)
[2021-08-11] MEDS ORDERED: FUROSEMIDE 40 MG/4 ML INJ (LASIX) IVP ONE ×3 (05:30→15:00)
[2021-08-11 05:45] LABS: BACTERIA,URINE NEGATIVE /HPF; SQUAMOUS EPITHELIAL CELL,UR 0-2 /HPF
[2021-08-11] MEDS ORDERED: NS 100 ML (IVPB) BAG IV ONE (06:45)
[2021-08-11] MEDS ORDERED: CATHETER FLUSH 10 ML SYR IV PRN ×2 (06:45→09:00)
[2021-08-11] MEDS ORDERED: IOHEXOL 350 MG/ML 100 ML (OMNIPAQUE 350) VIAL IV ONE (06:45)
--- NOTE | 2021-08-11 07:17 | Diagnostic Imaging Report ---
EXAMINATION: CT angiography of the chest. TECHNIQUE: Contrast enhanced thin section helical images were obtained through the chest with intravenous contrast timed for the optimal opacification of the arterial structures per CTA protocol. Post-processing, reconstructions and interpretation of angiographic images of the vessels was performed. 3D MIP reconstructions were performed and reviewed. All CT scans use one or more of the following dose optimizing techniques: automated exposure control, MA and/or KvP adjustment based on a patient size and exam type, or iterative reconstruction. HISTORY: Shortness of breath COMPARISON: None available. FINDINGS: No pulmonary embolism is seen. There is mild pulmonary edema with groundglass and septal line thickening. There are small bilateral pleural effusions. No pneumonia. No pneumothorax. No suspicious nodules. There is no axillary or supraclavicular lymphadenopathy. There are mildly enlarged mediastinal lymph nodes, not likely reactive. Heart size is normal. There are mild coronary artery calcifications. No pericardial effusion. Aorta is normal in caliber. Limited views of the upper abdomen show changes of cholecystectomy. There are no suspicious osseus lesions. IMPRESSION: 1. No pulmonary embolism. 2. Mild pulmonary edema. Dictated by: Dictated on workstation # [id number]
--- NOTE | 2021-08-11 07:57 | Diagnostic Imaging Report ---
EXAMINATION: Chest 1 view HISTORY: Shortness of breath, cough and congestion COMPARISON: 06/20/2020 FINDINGS: There is mild edema. Heart is enlarged. No pleural effusion or pneumothorax. IMPRESSION: 1. Mild edema and enlarged heart. Dictated by: Dictated on workstation # [id number]
[2021-08-11 08:42] VITALS: BP 120/49
[2021-08-11] MEDS ORDERED: RT-ALBUTEROL/IPRATROPIUM 3 ML (DUONEB) VIAL INH PRN (09:30)
[2021-08-11] MEDS ORDERED: BUSP5TAB59 PO (10:09)
[2021-08-11] MEDS ORDERED: MELA1TAB27 PO (10:09)
[2021-08-11] MEDS ORDERED: FURO40TA4 PO (10:09)
[2021-08-11] MEDS ORDERED: SILD20TA14 PO (10:09)
[2021-08-11] MEDS ORDERED: SIMV10TA26 PO (10:09)
[2021-08-11] MEDS ORDERED: INSU100I55 SQ (10:09)
[2021-08-11] MEDS: RT-ALBUTEROL/IPRATROPIUM 3 ML (DUONEB) VIAL INH SCH ×4 (10:16→22:49)
[2021-08-11] MEDS ORDERED: inSUlin ASPART (NovoLOG) 1 UNIT/0.01 ML (CHARGE PER UNIT) SC SCH (11:00)
[2021-08-11 11:15] VITALS: BP 119/57
--- NOTE | 2021-08-11 11:58 | Consultation-Cardiology ---
HPI-Cardiology Cardiology Consultation Date of Consultation 08/11/21 Date of Admission Time Seen by Provider: 11:52 Indication: Chest pain HPI 65-year-old lady with history of COPD, oxygen dependent, history of coronary artery disease. Patient has been having increasing shortness of breath which has been worsening recently. Started to have chest pain described as sharp in nature all over her chest with coughing and deep inspiration. Having discomfort in her neck. No palpitation. No syncope or near syncopal episodes. Patient was seen this morning and she reported that she is feeling better, still having some discomfort with coughing and movement. Home Medications & Allergies Allergies: Coded Allergies: Penicillins (Verified Allergy, Unknown, 05/15/19) meperidine (Verified Allergy, Unknown, 09/06/19) morphine (Unverified Allergy, Unknown, 05/15/19) propoxyphene (Verified Allergy, Unknown, 05/15/19) topiramate (Verified Allergy, Unknown, 05/15/19) codeine (Verified Adverse Reaction, Unknown, UPSET STOMACH, 09/13/19) dapagliflozin (Verified Adverse Reaction, Unknown, yeast infection, 09/13/19) Home Medication List Reviewed: Yes PZP-Fijyop-Mtpwnh Hx Patient Social History Marital Status: Employed/Student: retired 2nd Hand Smoke Exposure: No Recent Hopitalizations: No Have you traveled recently?: No Immunizations Up To Date Tetanus Booster (TDap): Unknown Date of Pneumonia Vaccine: Feb 05, 2017 Date of Influenza Vaccine: Dec 21, 2019 Past Medical History Discussed below Family Medical History Significant Family History: No Pertinent Family Hx Family History: Alzheimer's disease G8 SISTER Diabetes mellitus 19 FATHER Hypertension 19 FATHER 19 MOTHER Myocardial infarction 19 FATHER 19 MOTHER Neoplasm G8 SISTER Review of Systems-General Review of Systems Constitutional: see HPI, diaphoresis, malaise EENTM: no symptoms reported Respiratory: see HPI, cough, dyspnea on exertion, orthopnea, phlegm, short of breath, wheezing Cardiovascular: see HPI, chest pain, edema; No palpitations, No syncope Gastrointestinal: no symptoms reported, see HPI; No abdominal pain, No nausea, No vomiting Genitourinary: no symptoms reported, see HPI Musculoskeletal: no symptoms reported, see HPI Skin: no symptoms reported, see HPI Psychiatric/Neurological: No Symptoms Reported, See HPI Reviewed Test Results Reviewed Test Results Lab Laboratory Tests Test 08/11/21 04:10 6/5/22 04:25 08/11/21 04:50 08/11/21 10:59 Range/Units Influenza Type A (RT-PCR) Not Detected Not Detecte Influenza Type B (RT-PCR) Not Detected Not Detecte SARS-CoV-2 RNA (RT-PCR) Not Detected Not Detecte White Blood Count 11.8 H 4.3-11.0 10^3/uL Red Blood Count 3.06 L 3.80-5.11 10^6/uL Hemoglobin 9.3 L 11.5-16.0 g/dL Hematocrit 30 L 35-52 % Mean Corpuscular Volume 97 80-99 fL Mean Corpuscular Hemoglobin 30 25-34 pg Mean Corpuscular Hemoglobin Concent 31 L 32-36 g/dL Red Cell Distribution Width 15.7 H 10.0-14.5 % Platelet Count 178 130-400 10^3/uL Mean Platelet Volume 9.6 9.0-12.2 fL Immature Granulocyte % (Auto) 1 % Neutrophils (%) (Auto) 86 H 42-75 % Lymphocytes (%) (Auto) 7 L 12-44 % Monocytes (%) (Auto) 5 0-12 % Eosinophils (%) (Auto) 1 0-10 % Basophils (%) (Auto) 1 0-10 % Neutrophils # (Auto) 10.1 H 1.8-7.8 10^3/uL Lymphocytes # (Auto) 0.8 L 1.0-4.0 10^3/uL Monocytes # (Auto) 0.6 0.0-1.0 10^3/uL Eosinophils # (Auto) 0.1 0.0-0.3 10^3/uL Basophils # (Auto) 0.1 0.0-0.1 10^3/uL Immature Granulocyte # (Auto) 0.1 0.0-0.1 10^3/uL Neutrophils % (Manual) 85 % Lymphocytes % (Manual) 9 % Monocytes % (Manual) 4 % Eosinophils % (Manual) 2 % Polychromasia SLIGHT Anisocytosis SLIGHT Microcytosis SLIGHT Elliptocytes SLIGHT Erythrocyte Sedimentation Rate 54 H 0-30 MM/HR Prothrombin Time 14.8 H 12.2-14.7 SEC INR Comment 1.1 0.8-1.4 Activated Partial Thromboplast Time 39 H 24-35 SEC D-Dimer 0.82 H 0.00-0.49 UG/ML Sodium Level 138 135-145 MMOL/L Potassium Level 4.7 3.6-5.0 MMOL/L Chloride Level 101 98-107 MMOL/L Carbon Dioxide Level 26 21-32 MMOL/L Anion Gap 11 5-14 MMOL/L Blood Urea Nitrogen 19 H 7-18 MG/DL Creatinine 1.25 0.60-1.30 MG/DL Estimat Glomerular Filtration Rate 47 BUN/Creatinine Ratio 15 Glucose Level 207 H 70-105 MG/DL Lactic Acid Level 1.75 0.50-2.00 MMOL/L Calcium Level 8.0 L 8.5-10.1 MG/DL Corrected Calcium 8.5 8.5-10.1 MG/DL Magnesium Level 1.9 1.6-2.4 MG/DL Total Bilirubin 0.4 0.1-1.0 MG/DL Aspartate Amino Transf (AST/SGOT) 16 5-34 U/L Alanine Aminotransferase (ALT/SGPT) 16 0-55 U/L Alkaline Phosphatase 106 40-136 U/L Total Creatine Kinase 34 29-168 U/L Creatine Kinase MB 1.0 <6.6 NG/ML Myoglobin 55.9 10.0-92.0 NG/ML Troponin I < 0.028 <0.028 NG/ML C-Reactive Protein High Sensitivity 3.62 H 0.00-0.50 MG/DL B-Type Natriuretic Peptide 1214.7 H <100.0 PG/ML Total Protein 6.5 6.4-8.2 GM/DL Albumin 3.4 3.2-4.5 GM/DL Procalcitonin 0.04 <0.10 NG/ML Urine Color YELLOW Urine Clarity CLEAR Urine pH 6.0 5-9 Urine Specific [place] 1.020 1.016-1.022 Urine Protein NEGATIVE NEGATIVE Urine Glucose (UA) TRACE H NEGATIVE Urine Ketones NEGATIVE NEGATIVE Urine Nitrite NEGATIVE NEGATIVE Urine Bilirubin NEGATIVE NEGATIVE Urine Urobilinogen 0.2 < = 1.0 MG/DL Urine Leukocyte Esterase NEGATIVE NEGATIVE Urine RBC (Auto) NEGATIVE NEGATIVE Urine RBC NONE /HPF Urine WBC NONE /HPF Urine Squamous Epithelial Cells 0-2 /HPF Urine Crystals NONE /LPF Urine Bacteria NEGATIVE /HPF Urine Casts NONE /LPF Urine Mucus NEGATIVE /LPF Urine Culture Indicated NO Glucometer 169 H 70-110 MG/DL Physical Exam Physical Exam Vital Signs Vital Signs - First Documented 08/11/21 08:42 FiO2 36 Capillary Refill : Less Than 3 Seconds Height, Weight, BMI Height: 5'4.00" Weight: 246lbs. 6.0oz. 111.379297ml; 42.38 BMI Method:Stated General Appearance: No Apparent Distress, WD/WN, Other (ABLE TO TALK IN FULL SENTENCES. DOES NOT APPEAR TO BE IN ANY DISCOMFORT OR DISTRESS AT THIS TIME. 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 Mainly musculoskeletal pain. Patient has extensive cardiac history, cardiac enzymes are negative, EKG did not show any acute abnormality. Continue to monitor for now Shortness of breath, worsening dyspnea, multifactorial. Acute exacerbation of COPD and congestive heart failure. Started on bronchodilator and I will change the Lasix to IV twice a day and give her additional dose now. Congestive heart failure, acute on chronic left ventricular diastolic dysfunction, normal systolic function, last echocardiogram was reported by Dr. Quinones in May 2021 as normal left ventricular function with ejection fraction 60 to 65%, questionable mild mitral stenosis and severe pulmonary hypertension with PA pressure 60 mmHg. History of mitral valve stenosis, had a THANH done by Dr. Gavin in 2018 and reporting moderate stenosis. Coronary artery disease, Cardiac catheterization done in December 2015 and had severe stenosis in the obtuse marginal branch underwent Promus Premier stent 2.5 x 60 mm with excellent results Repeat cardiac catheterization done in [address] Vargas in [facility] showing patent stent in the obtuse marginal branch with nonobstructive disease Repeat cardiac catheterization was done in [address] Gavin and did not require any intervention. COPD, acute exacerbation. Followed and managed by Dr. Murcia as an outpatient. Maintained on home oxygen. Managed by medical team. Severe pulmonary hypertension secondary to valvular heart disease and congestive heart failure and COPD Maintained on sildenafil 20 mg 3 times a day. Managed by Dr. Murcia Carotid stenosis, history of carotid endarterectomy done by Dr. Fierro in 2016. Hypertension, restart home medication monitor blood pressure Hyperlipidemia, monitor lipids Chronic venous insufficiency. Diabetes mellitus, followed and managed by primary care physician Degenerative joint disease, spinal stenosis, scoliosis. Systemic lupus erythematous Obesity. NGHIA GUTIERREZ MD Aug 11, 2021 11:58
[2021-08-11] MEDS ORDERED: busPIRone 5 MG (BUSPAR) TAB PO SCH ×2 (13:00)
[2021-08-11] MEDS ORDERED: ACETAMINOPHEN 500 MG TAB (TYLENOL) PO PRN (13:00)
[2021-08-11] MEDS ORDERED: SILDENAFIL 20 MG (REVATIO) TAB PO SCH (13:00)
[2021-08-11] MEDS ORDERED: GABAPENTIN 400 MG (NEURONTIN) CAP PO SCH ×3 (13:00→21:00)
--- NOTE | 2021-08-11 13:26 | History & Physical-Hospitalist ---
History of Present Illness HPI/Chief Complaint Patient is 65-year-old female with past medical history of COPD, chronic respiratory failure with 4 L dependence, heart failure, coronary artery disease, insulin-dependent diabetes type 2 who presented to the emergency department due to shortness of breath. She states this has been going on for a few days. She has had increased cough. She attempted to use her inhalers at home without adequate relief. She also then developed some chest pain. She decided to seek evaluation in the emergency department. She was found to maintain oxygen saturations at 4 L while at rest but desatted with any activity. Chest x-ray revealed some pulmonary congestion and CTA was done to rule out pulmonary embolism. PE was ruled out but she was admitted for CHF exacerbation and diuresis. She has many questions for me regarding her chronic illnesses. She asks if there is a better medication than gabapentin for her peripheral neuropathy. She is asking why she has heartburn. She is unsure what pulmonary hypertension means and would like me to explain it. She also has questions regarding her current chest pain. At the end of our exam after explaining treatment planned she asked if anything is going to help her breathe better. All questions answered. She would also like her insulin restarted but passively t ells me that with her current regimen her BS will drop into the 50s regularly. Source: patient, family Date Seen 08/11/21 Time Seen by a Provider: 13:20 Attending Physician Deya Arreola DO PCP Admitting Physician: Joelle Negrete MD Attending Physician: Joelle Negrete MD Referring Physician Date of Admission Aug 11, 2021 at 07:44 Home Medications & Allergies Home Medications Reviewed patient Home Medication Reconciliation performed by pharmacy medication reconciliations career guidance technician and/or nursing. Patients Allergies have been reviewed. Allergies Allergies Coded Allergies Penicillins (Verified Allergy, Unknown, 05/15/19) meperidine (Verified Allergy, Unknown, 09/06/19) morphine (Unverified Allergy, Unknown, 05/15/19) propoxyphene (Verified Allergy, Unknown, 05/15/19) topiramate (Verified Allergy, Unknown, 05/15/19) codeine (Verified Adverse Reaction, Unknown, UPSET STOMACH, 09/13/19) dapagliflozin (Verified Adverse Reaction, Unknown, yeast infection, 09/13/19) Past Aynvdhs-Fzedef-Sbtfbl Hx Patient Social History Marrital Status: Employed/Student: retired Pt feels they are or have been: No Immunizations Up To Date Date of Influenza Vaccine: Dec 21, 2019 First/Initial COVID19 Vaccinat: APRIL Second COVID19 Vaccination Trey: MAY 08, 2020 Tetanus Booster (TDap): Unknown Hepatitis A: No Hepatitis B: No Date of Pneumonia Vaccine: Feb 05, 2017 Seasonal Allergies Seasonal Allergies: No Current Status Advance Directives: No Communicates: Verbally Primary Language: Maltese Preferred Spoken Language: Maltese Past Medical History Surgeries: Appendectomy, Cardiac, Coronary Stent, Gallbladder, Orthopedic, Thyr oidectomy, Vascular Surgery Asthma, Pneumonia, Sleep Apnea, COPD Currently Using CPAP: Yes Currently Using BIPAP: No Cardiomyopathy, Chronic Edema/Swelling, Coronary Artery Disease, High Cholesterol, Hypertension, Valvular Heart Disease Neuropathy 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 Sexually Transmitted Disease: No HIV/AIDS: No UTI-Chronic Colitis, Gastroesophageal Reflux Degenerate Disk Disease, Arthritis, Scoliosis, Chronic Back Pain Diabetes, Insulin dep, Hypothyroidsim Anxiety, Depression Blood Disorders: Yes (ANEMIA) Adverse Reaction/Blood Tranf: No Hypertension Hyperlipidemia Type 2 diabetes mellitus Coronary artery disease COPD Chronic respiratory failure with hypoxia Heart failure with preserved ejection fraction Morbid obesity Family Medical History Reviewed Nursing Family Hx Alzheimer's disease G8 SISTER Diabetes mellitus 19 FATHER Hypertension 19 FATHER 19 MOTHER Myocardial infarction 19 FATHER 19 MOTHER Neoplasm G8 SISTER No Pertinent Family Hx Noncontributory Review of Systems Constitutional: No chills, No fever; malaise Respiratory: cough, dyspnea on exertion, short of breath Gastrointestinal: No abdominal pain, No constipation; heartburn; No nausea, No vomiting Genitourinary: no symptoms reported Musculoskeletal: no symptoms reported Skin: no symptoms reported Psychiatric/Neurological: Other (neuropathy) Physical Exam Physical Exam Vital Signs Vital Signs - First Documented 08/11/21 08:42 FiO2 36 Capillary Refill : Less Than 3 Seconds Height, Weight, BMI Height: 5'4.00" Weight: 246lbs. 6.0oz. 111.883941ew; 42.38 BMI Method:Stated General Appearance: No Apparent Distress, Anxious, Chronically ill, Obese HEENT: PERRL/EOMI, Moist Mucous Membranes Neck: Normal Inspection, Supple Respiratory: Lungs Clear, No Respiratory Distress Cardiovascular: Regular Rate, Rhythm, No Murmur Gastrointestinal: Normal Bowel Sounds, Non Tender, Soft Extremity: Normal Capillary Refill, No Calf Tenderness, Pedal Edema (trace) Neurologic/Psychiatric: Alert, Oriented x3, Normal Mood/Affect Skin: Normal Color, Warm/Dry Results Results/Procedures Labs Laboratory Tests 08/11/21 04:25 Patient resulted labs reviewed. Imaging: Reviewed Imaging Report Imaging [facility]. [place], [place] NAME: RUDDY GARLAND [facility] REC#: [id number] PT STATUS: ADM Lisbet : 1955 PHYSICIAN: DRAKE BRAVO DO ADMIT DATE: 08/11/21 Signed Date of Exam:08/11/21 CHEST 1 VIEW, AP/PA ONLY EXAMINATION: Chest 1 view HISTORY: Shortness of breath, cough and congestion COMPARISON: 06/20/2020 FINDINGS: There is mild edema. Heart is enlarged. No pleural effusion or pneumothorax. IMPRESSION: 1. Mild edema and enlarged heart. Dictated by: Dictated on workstation # [id number] Dict: 08/11/21 0756 Trans: 08/11/21932 CV [id number] Interpreted by: KARTHIK CASTRO MD Electronically signed by: KARTHIK CASTRO MD 08/11/2133 [facility], [place] NAME: RUDDY GARLAND [facility] REC#: [id number] PT STATUS: ADM Lisbet : 1955 PHYSICIAN: DRAKE BRAVO DO ADMIT DATE: 08/11/21 Signed Date of Exam:08/11/21 CT ANGIO CHEST W EXAMINATION: CT angiography of the chest. TECHNIQUE: Contrast enhanced thin section helical images were obtained through the chest with intravenous contrast timed for the optimal opacification of the arterial structures per CTA protocol. Post-processing, reconstructions and interpretation of angiographic images of the vessels was performed. 3D MIP reconstructions were performed and reviewed. All CT scans use one or more of the following dose optimizing techniques: automated exposure control, MA and/or KvP adjustment based on a patient size and exam type, or iterative reconstruction. HISTORY: Shortness of breath COMPARISON: None available. FINDINGS: No pulmonary embolism is seen. There is mild pulmonary edema with groundglass and septal line thickening. There are small bilateral pleural effusions. No pneumonia. No pneumothorax. No suspicious nodules. There is no axillary or supraclavicular lymphadenopathy. There are mildly enlarged mediastinal lymph nodes, not likely reactive. Heart size is normal. There are mild coronary artery calcifications. No pericardial effusion. Aorta is normal in caliber. Limited views of the upper abdomen show changes of cholecystectomy. There are no suspicious osseus lesions. IMPRESSION: 1. No pulmonary embolism. 2. Mild pulmonary edema. Dictated by: Dictated on workstation # [id number] Dict: 08/11/21 0712 Trans: 08/11/21 0933 CVB [id number] Interpreted by: KARTHIK CASTRO MD Electronically signed by: KARTHIK CASTRO MD 08/11/21 0933 Assessment/Plan Admission Diagnosis CHF Exacerbation Admission Status: Observation Assessment and Plan CHF Exacerbation COPD Exacerbation Chronic Respiratory failure Contine lasix Continue home inhalers MAT protocol On home oxygen setting Cardiology consulted, appreciate recs IDDMII Peripheral neuropathy Reports taking 20 units in AM and 40 units in PM of Levemir Also reports dropping to the 50s with this regimen Discussed importance of avoiding lows so will decrease basal insulin SSI for meal time Resume gabapentin Anxiety Very anxious about her chronic conditions- resume home Buspar and Effexor Asked multiple times about fixing problems here that had been bothering her for years (dizziness, peripheral neuropathy, pulmonary HTN) HTN HLD CAD Continue home meds as able Cardiology consulted, appreciate recs Code status Request DNR status and requests update to POA paperwork- would like her nephew Franklin to be her POA as she states her son does not desire to make decisions for her Advance directive consult placed DVT ppx: JOELLE Hodges MD Aug 11, 2021 13:26
[2021-08-11] MEDS ORDERED: PANTOPRAZOLE 40 MG (PROTONIX) TAB PO SCH (13:45)
[2021-08-11] MEDS: CATHETER FLUSH 10 ML SYR IV SCH ×2 (14:20→20:59)
[2021-08-11] MEDS ORDERED: PATIENT MAY USE OWN MEDS, ALL MC SCH (14:45)
[2021-08-11 15:37] VITALS: BP 154/84
[2021-08-11] MEDS: inSUlin ASPART (NovoLOG) 1 UNIT/0.01 ML (CHARGE PER UNIT) SC SCH ×2 (16:11→20:58)
[2021-08-11] MEDS: FUROSEMIDE 40 MG/4 ML INJ (LASIX) IVP SCH (17:26)
[2021-08-11] MEDS: GABAPENTIN 300 MG (NEURONTIN) CAP PO SCH ×2 (17:26→20:56)
[2021-08-11] MEDS: busPIRone 5 MG (BUSPAR) TAB PO SCH ×2 (17:27→20:50)
[2021-08-11] MEDS: traZODone 100 MG (DESYREL) TAB PO SCH (20:52)
[2021-08-11] MEDS: SILDENAFIL 20 MG (REVATIO) TAB PO SCH (20:53)
[2021-08-11] MEDS: [UNRECOGNIZED DRUG - REMARK] PO SCH (20:54)
[2021-08-11] MEDS: MELATONIN 3 MG TABLET PO SCH (20:55)
[2021-08-11] MEDS: MONTELUKAST 10 MG (SINGULAIR) TAB PO SCH (20:56)
[2021-08-11] MEDS ORDERED: LOSARTAN 50 MG (COZAAR) TAB PO SCH ×2 (21:00)
[2021-08-11] MEDS ORDERED: MONTELUKAST 10 MG (SINGULAIR) TAB PO SCH (21:00)
[2021-08-11] MEDS ORDERED: AtorvaSTATin TABLET 10 MG TABLET PO SCH ×2 (21:00)
[2021-08-11] MEDS ORDERED: MELATONIN 3 MG TABLET PO SCH (21:00)
[2021-08-12] VITALS (8 sets, daily range): BP systolic 101–172; BP diastolic 55–76
--- NOTE | 2021-08-12 04:23 | Progress Note ---
Subjective Date Seen by a Provider: Aug 12, 2021 Time Seen by a Provider: 11:45 Subjective/Events-last exam Patient doing better Will DC catheter PT OT ordered Needs HH at DC Giving IV iron infusion today since it was due from Dr Jain anyway Less dyspnea Needs to see Dr Gavin Thursday so will need to see him and not [employer]ONSTRATOR so my nurse will call them Review of Systems General: Fatigue, Malaise Focused Exam Lactate Level 08/11/21 04:25: Lactic Acid Level 1.75 Objective Exam Last Set of Vital Signs Vital Signs Date Time Temp Pulse Resp B/P (MAP) Pulse Ox O2 Delivery O2 Flow Rate FiO2 08/12/21 02:49 90 Nasal Cannula 6.00 08/12/21 02:18 37.9 119 18 128/61 (83) 08/11/21 08:42 36 Capillary Refill : Less Than 3 Seconds I&O Intake and Output 08/12/21 00:00 Intake Total 1640 ml Output Total 3525 ml Balance -1885 ml Intake Oral 1630 ml IV Total 10 ml Output Urine Total 3525 ml Daily Weight Change No General: Alert, Oriented X3, Cooperative, No Acute Distress Lungs: Clear to Auscultation, Normal Air Movement Heart: Regular Rate, Normal S1, Normal S2, No Murmurs Psych/Mental Status: Mental Status NL, Mood NL Results Lab Laboratory Tests 08/11/21 04:25: White Blood Count 11.8H, Red Blood Count 3.06L, Hemoglobin 9.3L, Hematocrit 30L, Mean Corpuscular Volume 97, Mean Corpuscular Hemoglobin 30, Mean Corpuscular Hemoglobin Concent 31L, Red Cell Distribution Width 15.7H, Platelet Count 178, Mean Platelet Volume 9.6, Immature Granulocyte % (Auto) 1, Neutrophils (%) (Auto) 86H, Lymphocytes (%) (Auto) 7L, Monocytes (%) (Auto) 5, Eosinophils (%) (Auto) 1, Basophils (%) (Auto) 1, Neutrophils # (Auto) 10.1H, Lymphocytes # (Auto) 0.8L, Monocytes # (Auto) 0.6, Eosinophils # (Auto) 0.1, Basophils # (A uto) 0.1, Immature Granulocyte # (Auto) 0.1, Neutrophils % (Manual) 85, Lymphocytes % (Manual) 9, Monocytes % (Manual) 4, Eosinophils % (Manual) 2, Polychromasia SLIGHT, Anisocytosis SLIGHT, Microcytosis SLIGHT, Elliptocytes SLIGHT, Erythrocyte Sedimentation Rate 54H, Prothrombin Time 14.8H, INR Comment 1.1, Activated Partial Thromboplast Time 39H, D-Dimer 0.82H, Sodium Level 138, Potassium Level 4.7, Chloride Level 101, Carbon Dioxide Level 26, Anion Gap 11, Blood Urea Nitrogen 19H, Creatinine 1.25, Estimat Glomerular Filtration Rate 47, BUN/Creatinine Ratio 15, Glucose Level 207H, Lactic Acid Level 1.75, Calcium Level 8.0L, Corrected Calcium 8.5, Magnesium Level 1.9, Total Bilirubin 0.4, Aspartate Amino Transf (AST/SGOT) 16, Alanine Aminotransferase (ALT/SGPT) 16, Alkaline Phosphatase 106, Total Creatine Kinase 34, Creatine Kinase MB 1.0, Myoglobin 55.9, Troponin I < 0.028, C-Reactive Protein High Sensitivity 3.62H, B-Type Natriuretic Peptide 1214.7H, Total Protein 6.5, Albumin 3.4, Procalcitonin 0.04 08/11/21 04:50: Urine Color YELLOW, Urine Clarity CLEAR, Urine pH 6.0, Urine Specific [place] 1.020, Urine Protein NEGATIVE, Urine Glucose (UA) TRACEH, Urine Ketones NEGATIVE, Urine Nitrite NEGATIVE, Urine Bilirubin NEGATIVE, Urine Urobilinogen 0.2, Urine Leukocyte Esterase NEGATIVE, Urine RBC (Auto) NEGATIVE, Urine RBC NONE, Urine WBC NONE, Urine Squamous Epithelial Cells 0-2, Urine Crystals NONE, Urine Bacteria NEGATIVE, Urine Casts NONE, Urine Mucus NEGATIVE, Urine Culture Indicated NO 08/11/21 10:59: Glucometer 169H 08/11/21 16:00: Glucometer 195H 08/11/21 20:33: Glucometer 221H Assessment/Plan Assessment/Plan Assess & Plan/Chief Complaint Assessment: CHF Exacerbation COPD Exacerbation Chronic Respiratory failure Contine lasix Continue home inhalers MAT protocol On home oxygen setting Cardiology consulted, appreciate recs IDDMII Peripheral neuropathy Reports taking 20 units in AM and 40 units in PM of Levemir Also reports dropping to the 50s with this regimen Discussed importance of avoiding lows so will decrease basal insulin SSI for meal time Resume gabapentin Anxiety Very anxious about her chronic conditions- resume home Busnavdeep and Mu Asked multiple times about fixing problems here that had been bothering her for years (dizziness, peripheral neuropathy, pulmonary HTN) HTN HLD CAD Continue home meds as able Cardiology consulted, appreciate recs Code status Request DNR status and requests update to POA paperwork- would like her nephew Franklin to be her POA as she states her son does not desire to make decisions for her Advance directive consult placed DVT ppx: Lovenox Plan: DC catheter PT OT Needs HH at DC tomorrow FERN BAILEY DO Aug 12, 2021 04:23
[2021-08-12] MEDS: FUROSEMIDE 40 MG/4 ML INJ (LASIX) IVP SCH ×2 (05:47→17:24)
[2021-08-12] MEDS: inSUlin ASPART (NovoLOG) 1 UNIT/0.01 ML (CHARGE PER UNIT) SC SCH ×4 (05:50→20:59)
[2021-08-12] MEDS: CATHETER FLUSH 10 ML SYR IV SCH ×3 (05:51→22:45)
[2021-08-12 05:57] LABS: HEMATOCRIT 32 % (35-52); HEMOGLOBIN 9.9 g/dL (11.5-16.0); MEAN CORPUSCULAR HEMOGLOBIN 30 pg (25-34); MEAN CORPUSCULAR HGB CONC 31 g/dL (32-36); MEAN CORPUSCULAR VOLUME 97 fL (80-99); MEAN PLATELET VOLUME 9.9 fL (9.0-12.2); PLATELET COUNT 185 10^3/uL (130-400); WHITE BLOOD COUNT 10.1 10^3/uL (4.3-11.0)
[2021-08-12 06:13] LABS: ALBUMIN 3.4 GM/DL (3.2-4.5); POTASSIUM 3.9 MMOL/L (3.6-5.0)
[2021-08-12 06:15] LABS: CALCIUM 8.4 MG/DL (8.5-10.1)
[2021-08-12 06:16] LABS: TOTAL PROTEIN 6.7 GM/DL (6.4-8.2)
[2021-08-12 06:18] LABS: BILIRUBIN,TOTAL 0.6 MG/DL (0.1-1.0)
[2021-08-12 06:19] LABS: CREATININE SERUM 1.26 MG/DL (0.60-1.30)
[2021-08-12 06:21] LABS: BILIRUBIN,DIRECT 0.3 MG/DL (0.0-0.3); BILIRUBIN,INDIRECT 0.3 MG/DL
[2021-08-12] MEDS ORDERED: LEVOTHYROXINE 125 MCG (LEVOTHROID) TABLET PO SCH (06:30)
[2021-08-12] MEDS ORDERED: VENlafaxine XR 75 MG (EFFEXOR XR) CAP PO SCH ×2 (07:00→08:00)
[2021-08-12] MEDS: RT-ALBUTEROL/IPRATROPIUM 3 ML (DUONEB) VIAL INH SCH ×5 (07:13→21:36)
[2021-08-12] MEDS: LEVOTHYROXINE 125 MCG (LEVOTHROID) TABLET PO SCH (07:57)
[2021-08-12] MEDS: KCL 10 MEQ TAB (MICRO K) PO SCH (07:58)
[2021-08-12] MEDS: VENLAFAXINE 150 MG PO SCH (07:58)
[2021-08-12] MEDS: busPIRone 5 MG (BUSPAR) TAB PO SCH ×3 (07:59→21:03)
[2021-08-12] MEDS: ASPIRIN E.C. 81 MG (ECOTRIN) TAB PO SCH (07:59)
[2021-08-12] MEDS: LOSARTAN 50 MG (COZAAR) TAB PO SCH (07:59)
[2021-08-12] MEDS: PANTOPRAZOLE 40 MG (PROTONIX) TAB PO SCH (08:00)
[2021-08-12] MEDS: GABAPENTIN 300 MG (NEURONTIN) CAP PO SCH ×4 (08:01→21:01)
[2021-08-12] MEDS: SILDENAFIL 20 MG (REVATIO) TAB PO SCH ×3 (08:01→21:04)
[2021-08-12] MEDS ORDERED: FUROSEMIDE 40 MG (LASIX) TAB PO SCH ×2 (09:00)
[2021-08-12] MEDS ORDERED: KCL 10 MEQ TAB (MICRO K) PO SCH (09:00)
[2021-08-12] MEDS ORDERED: ASPIRIN E.C. 81 MG (ECOTRIN) TAB PO SCH (09:00)
[2021-08-12] MEDS ORDERED: PANTOPRAZOLE 40 MG (PROTONIX) TAB PO SCH (09:00)
--- NOTE | 2021-08-12 09:14 | Cardiology Progress Note ---
Subjective Date Seen by Provider: Aug 12, 2021 Time Seen by Provider: 08:40 Subjective/Events-last exam Patient is sitting up in bed, eating breakfast. States dyspnea is slowly improving. Denies any chest pain. Focused Exam Lactate Level 08/11/21 04:25: Lactic Acid Level 1.75 Objective-Cardiology Exam Last Set of Vital Signs Vital Signs 08/11/21 08/12/21 08/12/21 08:42 09:02 10:33 Temp 37.1 Pulse 107 Resp 16 B/P (MAP) 129/63 (85) Pulse Ox 94 O2 Delivery Nasal Cannula O2 Flow Rate 4.00 FiO2 36 I&O Intake and Output 08/12/21 00:00 Intake Total 1640 ml Output Total 3525 ml Balance -1885 ml Intake Oral 1630 ml IV Total 10 ml Output Urine Total 3525 ml Daily Weight Change No General: Alert, Oriented X3 HEENT: Atraumatic Lungs: Other (bilat rhonchi) Heart: Regular Rate Abdomen: Normal Bowel Sounds, Soft, No Tenderness Extremities: No Edema Skin: No Rashes, No Significant Lesion Neuro: Normal Speech Psych/Mental Status: Mental Status NL, Mood NL Results Lab Laboratory Tests 08/12/21 05:50 A/P-Cardiology Admission Diagnosis Chest pain Shortness of breath Congestive heart failure, acute on chronic left ventricular diastolic dysfunction, nonischemic cardiomyopathy Coronary artery disease Assessment/Plan Chest pain, atypical in presentation. Mainly musculoskeletal pain. Patient has extensive cardiac history, cardiac enzymes are negative, EKG did not show any acute abnormality. Continue to monitor for now Shortness of breath, multifactorial. Reporting some improvement today. Acute exacerbation of COPD and congestive heart failure. Started on bronchodilator, continue on BID Lasix. Congestive heart failure, acute on chronic left ventricular diastolic dysfunction, normal systolic function, last echocardiogram was reported by Dr. Quinones in May 2021 as normal left ventricular function with ejection fraction 60 to 65%, questionable mild mitral stenosis and severe pulmonary hypertension with PA pressure 60 mmHg. History of mitral valve stenosis, had a THANH done by Dr. Gavin in 2017 and reporting moderate stenosis. Coronary artery disease, Cardiac catheterization done in December 2015 and had severe stenosis in the obtuse marginal branch underwent Promus Premier stent 2.5 x 60 mm with excellent results Repeat cardiac catheterization done in [address] Vargas in [facility] showing patent stent in the obtuse marginal branch with nonobstructive disease Repeat cardiac catheterization was done in [address] Gavin and did not require any intervention. COPD, acute exacerbation. Followed and managed by Dr. Murcia as an outpatient. Maintained on home oxygen. Managed by medical team. Severe pulmonary hypertension secondary to valvular heart disease and congestive heart failure and COPD Maintained on sildenafil 20 mg 3 times a day. Managed by Dr. Rader Carotid stenosis, history of carotid endarterectomy done by Dr. Victoria in 2016. Hypertension,controlled, continue to monitor. Hyperlipidemia, monitor lipids Chronic venous insufficiency. Diabetes mellitus, followed and managed by primary care physician Degenerative joint disease, spinal stenosis, scoliosis. Systemic lupus erythematous Obesity. Supervisory-Addendum Brief Supervisory Addendum Participated in pt care: history, MDM, physical Personally performed: exam, history, MDM Care discussed with: RAVI Results interpretation: Verified all documentation Notes: Patient was seen and evaluated with Reta, examination performed, management plan was discussed, agree with the current scribed note, I made few changes to the note using Italic font Patient was seen at bedside, laying down comfortably, feeling better Still having musculoskeletal chest pain on coughing and deep inspiration Patient was started on diuretics. We will continue monitoring closely Reporting improvement in her symptoms. RETA MATTSON Aug 12, 2021 09:14 NGHIA GUTIERREZ MD Aug 12, 2021 11:17
[2021-08-12] MEDS ORDERED: VENL150C98 PO (12:17)
[2021-08-12] MEDS ORDERED: IRON SUCROSE 200 MG/10 ML (VENOFER) VIAL IV NR (12:30)
[2021-08-12] MEDS ORDERED: ACETAMINOPHEN 500 MG TAB (TYLENOL) PO PRN (13:15)
[2021-08-12] MEDS ORDERED: INSU200I4 SQ (13:19)
[2021-08-12] MEDS ORDERED: GABA300S2 PO (13:19)
[2021-08-12] MEDS ORDERED: GABA300C PO (13:20)
[2021-08-12] MEDS ORDERED: DICL20GE TP (13:22)
[2021-08-12] MEDS ORDERED: ASCO-262 PO (13:23)
[2021-08-12] MEDS ORDERED: ZINC50TA51 PO (13:23)
[2021-08-12] MEDS ORDERED: CALC-250 PO (13:24)
--- NOTE | 2021-08-12 13:45 | Occupational Therapy Eval ---
OT Evaluation-General/PLF Medical Diagnosis Admission Date Aug 11, 2021 at 07:44 Medical Diagnosis: CHF exacerbation, diuresis Onset Date: Aug 11, 2021 Therapy Diagnosis Therapy Diagnosis: reduced adl status Height/Weight Height (Feet): 5 Height (Inches): 4.00 Weight (Pounds): 246 Weight (Ounces): 6.0 Precautions Precautions/Isolations: Fall Prevention, Standard Precautions Referral Referral Reason: Evaluation/Treatment Medical History Pertinent Medical History: CAD, COPD, DM, GERD, HTN, Neuropathy Current History Pt presents to ER with c/o SOB. Found to have CHF exacerbation/diuresis. Per patient, she lives alone in a single story home. Her son lives right next door. She was indep with adls and some iadls. Her friends and son assists with transportation, groceries, and some meals. Pt uses a cane at baseline. Reviewed History: Yes Social History Home: Single Level Current Living Status: Alone Entry Into Home: Stairs With Railing Steps Into Home: 3 ADL-Prior Level of Function SCALE: Activities may be completed with or without assistive devices. 8-Jakjvndpvu-hnmiafn completes the activity by him/herself with no assistance from a helper. 5-Set-up or Clean-up Assistance-helper sets up or cleans up; patient completes activity. [place] assists only prior to or following the activity. 4-Supervision or Touching Assistance-helper provides verbal cues and/or touching/steadying and/or contact guard assistance as patient completes activity. Assistance may be provided throughout the activity or intermittently. 3-Partial/Moderate Assistance-helper does LESS THAN HALF the effort. [place] lifts, holds or supports trunk or limbs, but provides less than half the effort. 2-Substantial/Maximal Assistance-helper does MORE THAN HALF the effort. [place] lifts or holds trunk or limbs and provides more than half the effort. 4-Ujdikgxyw-tbgrpf does ALL the effort. Patient does none of the effort to complete the activity. Or, the assistance of 2 or more helpers is required for the patient to complete the activity. If activity was not attempted, code reason: 7-Patient Refused. 9-Not Applicable-not attempted and the patient did not perform the activity before the current illness, exacerbation or injury. 10-Not Attempted due to Environmental Limitations-(lack of equipment, weather restraints, etc.). 88-Not Attempted due to Medical Conditions or Safety Concerns. Self Care: Independent Functional Cognition: Independent DME/Equipment: Bath Chair, Tub/Shower Drive Self: No OT Current Status Subjective Pt reports pain in back and neck as 6/10. RN in room and aware. Appearance Pt returned to sitting in recliner, all needs within reach Mental Status/Objective Patient Orientation: Person, Place, Situation Attachments: Park Catheter, IV, Oxygen (4L) Current Glasses/Contacts: Yes Hand Dominance: Right Upper Extremity ROM WNL, extra time to perform finger opposition secondary to arthritis Upper Extremity Strength not formally tested secondary to c/o back pain. Anticipate at least 3+/5 throughout ADL-Treatment Eating (QC): 5 Oral Hygiene (QC): 4 On/Off Footwear (QC): 2 Toileting Hygiene (QC): 1 (park catheter) Pt sitting in recliner at OT arrival. Max a to don bilateral socks secondary to increased c/o dizziness when bending. Pt unable to perform cross over method to reach feet. She verbalizes that she owns a sock aid and a LHSH. OT to assess correct use of AE during next session. She reports that she took a shower earlier in the day and that she needed assist with washing jose [place] area secondary to placement of park catheter and being afraid that she might pull it out. Anticipate pt would need assist washing feet, again due to dizziness with bending. Pt may benefit from instruction on use of LHS. Sit<>stand: SBA. Pt ambulated within room with use of walker and SBA. Cues for attention to O2 line and safety with ensuring surface is behind her prior to sitting. Pt appears to tolerate short walk, no increased SOB observed. Education OT Patient Education: Correct positioning, Energy conservation, Modified ADL techniques, Purpose of tx/functional activities, Rehab process, Safety issues, Transfer techniques, Use of adapted equipment Teaching Recipient: Patient Teaching Methods: Demonstration, Discussion Response to Teaching: Verbalize Understanding, Return Demonstration, Reinforcement Needed OT Senior Care Goals Senior Care Goals Time Frame: Aug 19, 2021 Oral Hygiene (QC): 5 Toileting Hygiene (QC): 4 Shower/Bathe Self (QC): 4 Upper Body Dressing (QC): 5 Lower Body Dressing (QC): 4 On/Off Footwear (QC): 4 1=Demonstrate adherence to instructed precautions during ADL tasks. 2=Patient will verbalize/demonstrate understanding of assistive devices/modifications for ADL. 3=Patient will improve strength/tolerance for activity to enable patient to perform ADL's. OT Education/Plan Problem List/Assessment Assessment: Decreased Safety Aware, Decreased UE Strength, Impaired Funct Balance, Impaired Self-Care Skills Discharge Recommendations Plan/Recommendations: Continue POC Therapy Discharge Recommendati: Post Acute OT (Home health OT) Equpiment Recommendations-D/C: Surgical Consultant, Sock Aide Treatment Plan/Plan of Care Treatment,Training & Education: Yes Patient would benefit from OT for education, treatment and training to promote independence in ADL's, mobility, safety and/or upper extremity function for ADL's. Plan of Care: ADL Retraining, Functional Mobility, Group Exercise/Act as Ind, UE Funct Exercise/Act Treatment Duration: Aug 19, 2021 Frequency: 3 times per week (3-5x/week) Estimated Hrs Per Day: .25 hour per day Agreement: Yes Rehab Potential: Fair Time/GCodes Start Time: 13:14 Stop Time: 13:31 Total Time Billed (hr/min): 17 Billed Treatment Time 1 visit Angélica Kang OT Aug 12, 2021 13:45
--- NOTE | 2021-08-12 13:46 | Physical Therapy Evaluation ---
PT Evaluation-General Medical Diagnosis Admission Date Aug 11, 2021 at 07:44 Medical Diagnosis: acute exacerbation CHF and COPD Onset Date: Aug 11, 2021 Therapy Diagnosis Therapy Diagnosis: debility/weakness Height/Weight Height (Feet): 5 Height (Inches): 4.00 Weight (Pounds): 246 Weight (Ounces): 6.0 Precautions Precautions/Isolations: Fall Prevention, Standard Precautions Referral Physician: Maxwell Reason for Referral: Evaluation/Treatment Medical History Pertinent Medical History: CAD, COPD (O2 dependent 4L PLOF), DM, GERD, HTN, Neuropathy Current History EMS secondary to SOA Reviewed History: Yes Social History Home: Single Level Current Living Status: Alone Entry Into Home: Stairs With Railing PT Steps Into Home: 3 Prior Prior Level of Function SCALE: Activities may be completed with or without assistive devices. 5-Azgcalkhkf-gwubvqj completes the activity by him/herself with no assistance from a helper. 5-Set-up or Clean-up Assistance-helper sets up or cleans up; patient completes a ctivity. [place] assists only prior to or following the activity. 4-Supervision or Touching Assistance-helper provides verbal cues and/or touching/steadying and/or contact guard assistance as patient completes activity. Assistance may be provided throughout the activity or intermittently. 3-Partial/Moderate Assistance-helper does LESS THAN HALF the effort. [place] lifts, holds or supports trunk or limbs, but provides less than half the effort. 2-Substantial/Maximal Assistance-helper does MORE THAN HALF the effort. [place] lifts or holds trunk or limbs and provides more than half the effort. 8-Qwlvohkhx-zlwiem does ALL the effort. Patient does none of the effort to complete the activity. Or, the assistance of 2 or more helpers is required for the patient to complete the activity. If activity was not attempted, code reason: 7-Patient Refused. 9-Not Applicable-not attempted and the patient did not perform the activity before the current illness, exacerbation or injury. 10-Not Attempted due to Environmental Limitations-(lack of equipment, weather restraints, etc.). 88-Not Attempted due to Medical Conditions or Safety Concerns. Bed Mobility: 6 Transfers (B,C,W/C): 6 Gait: 6 Stairs: 6 Indoor Mobility (Ambulation): Independent Stairs: Independent Prior Devices Use: Walker PT Evaluation-Current Subjective Patient agrees to PT. Objective Patient Orientation: Normal For Age Attachments: Oxygen, Bran Catheter ROM/Strength ROM Lower Extremities bilateral LE WFL Strength Lower Extremities 4-/5 grossly bilateral LE Integumentary/Posture Integumentary refer to nursing notes Bladder Incontinence: Bran Cath Posture slight trunk flexed posture Neuromuscular (Tone, Coordination, Reflexes) grossly intact Sensory Vision: Functional Hearing: Functional Transfers Sit to Stand (QC): 4 Gait Mode of Locomotion: Walk Anticipated Mode of Locomotion: Walk Walk 10 feet (QC): 4 Walk 50 ft with 2 Turns(QC): 4 Distance: 50' Gait Assistive Device: FWW Comments/Gait Description safe and functional with no deviation Balance Sitting Static: Normal Sitting Dynamic: Normal Standing Static: Normal Standing Dynamic: Normal Assessment/Needs 65 y.o. female, will be seen short term by skilled PT to address pulmonary function with functional mobility and strengthening. Patient displays mild SOA with minimal activity. Patient remains up in recliner with lunch in situ. Rehab Potential: Fair PT Fdc Goals Fdc Goals PT Quality Control Expert Goals Time Frame: Aug 24, 2021 Roll Left & Right (QC): 6 Sit to Lying (QC): 6 Lying-Sitting on Side/Bed(QC): 6 Sit to Stand (QC): 6 Chair/Wbn-bx-Rviqt Xfer(QC): 6 Toilet Transfer (QC): 6 Walk 10 feet (QC): 6 Walk 50ft with 2 Turns (QC): 6 Walk 150 ft (QC): 6 PT Plan Problem List Problem List: Activity Tolerance, Functional Strength, Safety, Balance, Gait, Transfer, Bed Mobility Treatment/Plan Treatment Plan: Continue Plan of Care Treatment Plan: Bed Mobility, Education, Functional Activity Lola, Functional Strength, Gait, Safety, Therapeutic Exercise, Transfers Treatment Duration: Aug 24, 2021 Frequency: 6 times per week Estimated Hrs Per Day: .25 hour per day Patient and/or Family Agrees t: Yes Time/GCodes Time In: 1323 Time Out: 1334 Total Billed Treatment Time: 11 Total Billed Treatment 1 visit EVModC 11 min ARON GAMBLE PT Aug 12, 2021 13:46
[2021-08-12] MEDS ORDERED: BUDE0.5A IH (15:03)
[2021-08-12] MEDS ORDERED: FORM20VI IH (15:03)
[2021-08-12] MEDS ORDERED: REVE175V IH (15:04)
[2021-08-12] MEDS: [UNRECOGNIZED DRUG - REMARK] PO SCH (20:59)
[2021-08-12] MEDS: MONTELUKAST 10 MG (SINGULAIR) TAB PO SCH (21:02)
[2021-08-12] MEDS: MELATONIN 3 MG TABLET PO SCH (21:02)
[2021-08-12] MEDS: traZODone 100 MG (DESYREL) TAB PO SCH (21:04)
[2021-08-12] MEDS: RT-BUDESONIDE NEBS 0.5 MG/2ML (PULMICORT) AMP INH SCH (21:36)
[2021-08-13] MEDS: RT-ALBUTEROL/IPRATROPIUM 3 ML (DUONEB) VIAL INH SCH ×4 (01:49→14:19)
[2021-08-13 04:00] VITALS: BP 163/72
[2021-08-13] MEDS: inSUlin ASPART (NovoLOG) 1 UNIT/0.01 ML (CHARGE PER UNIT) SC SCH ×2 (06:51→12:27)
[2021-08-13] MEDS: RT-BUDESONIDE NEBS 0.5 MG/2ML (PULMICORT) AMP INH SCH (07:02)
[2021-08-13] MEDS: FUROSEMIDE 40 MG/4 ML INJ (LASIX) IVP SCH (07:05)
[2021-08-13] MEDS: CATHETER FLUSH 10 ML SYR IV SCH ×2 (07:05→13:35)
[2021-08-13] MEDS: INSULIN ASPART 6 UNIT SQ SCH ×2 (07:05→12:29)
[2021-08-13 07:10] LABS: BASOPHILS # (AUTO) 0.1 10^3/uL (0.0-0.1); BASOPHILS % (AUTO) 1 % (0-10); EOSINOPHILS # (AUTO) 0.2 10^3/uL (0.0-0.3); EOSINOPHILS % (AUTO) 3 % (0-10); HEMATOCRIT 32 % (35-52); HEMOGLOBIN 9.9 g/dL (11.5-16.0); LYMPHOCYTES # (AUTO) 0.9 10^3/uL (1.0-4.0); LYMPHOCYTES % (AUTO) 11 % (12-44); MEAN CORPUSCULAR HEMOGLOBIN 30 pg (25-34); MEAN CORPUSCULAR HGB CONC 31 g/dL (32-36); MEAN CORPUSCULAR VOLUME 98 fL (80-99); MEAN PLATELET VOLUME 9.7 fL (9.0-12.2); MONOCYTES # (AUTO) 0.7 10^3/uL (0.0-1.0); MONOCYTES % (AUTO) 9 % (0-12); NEUTROPHILS # (AUTO) 6.4 10^3/uL (1.8-7.8); NEUTROPHILS % (AUTO) 77 % (42-75); PLATELET COUNT 180 10^3/uL (130-400); WHITE BLOOD COUNT 8.3 10^3/uL (4.3-11.0)
[2021-08-13 07:30] LABS: ALBUMIN 3.3 GM/DL (3.2-4.5); BILIRUBIN,TOTAL 0.4 MG/DL (0.1-1.0); CALCIUM 8.3 MG/DL (8.5-10.1); CREATININE SERUM 1.66 MG/DL (0.60-1.30); TOTAL PROTEIN 6.6 GM/DL (6.4-8.2)
[2021-08-13] MEDS: busPIRone 5 MG (BUSPAR) TAB PO SCH ×2 (07:40→13:34)
[2021-08-13] MEDS: GABAPENTIN 300 MG (NEURONTIN) CAP PO SCH (07:40)
[2021-08-13] MEDS: LEVOTHYROXINE 125 MCG (LEVOTHROID) TABLET PO SCH (07:40)
[2021-08-13] MEDS: ASPIRIN E.C. 81 MG (ECOTRIN) TAB PO SCH (07:41)
[2021-08-13] MEDS: LOSARTAN 50 MG (COZAAR) TAB PO SCH (07:42)
[2021-08-13] MEDS: PANTOPRAZOLE 40 MG (PROTONIX) TAB PO SCH (07:43)
[2021-08-13] MEDS: KCL 10 MEQ TAB (MICRO K) PO SCH (07:44)
[2021-08-13] MEDS: VENLAFAXINE 150 MG PO SCH (07:44)
[2021-08-13 08:18] VITALS: BP 111/53
[2021-08-13] MEDS: SILDENAFIL 20 MG (REVATIO) TAB PO SCH ×2 (08:55→13:34)
--- NOTE | 2021-08-13 08:57 | Cardiology Progress Note ---
Subjective Date Seen by Provider: Aug 13, 2021 Time Seen by Provider: 08:55 Subjective/Events-last exam Patient is laying down in bed, still complaining of some congestion. Reporting improvement of chest pain. Review of Systems General: No Chills, No Night Sweats; Fatigue; No Malaise, No Appetite, No Other HEENT: No Head Aches, No Visual Changes, No Eye Pain, No Ear Pain, No Dysphasia, No Sinus Congestion, No Post Nasal Drip, No Sore Throat, No Other Pulmonary: Dyspnea, Cough; No Pleuritic Chest Pain, No Other Cardiovascular: No: Chest Pain, Palpitations, Orthopnea, Paroxysmal Noc. Dyspnea, Edema, Lt Headedness, Other Focused Exam Lactate Level 08/11/21 04:25: Lactic Acid Level 1.75 Objective-Cardiology Exam Last Set of Vital Signs Vital Signs 08/11/21 08/13/21 08:42 08:18 Temp 36.5 Pulse 99 Resp 20 B/P (MAP) 111/53 (72) Pulse Ox 96 O2 Delivery Nasal Cannula O2 Flow Rate 4.00 FiO2 36 I&O Intake and Output 08/13/21 00:00 Intake Total 1760 ml Output Total 3050 ml Balance -1290 ml Intake Oral 1760 ml Output Urine Total 3050 ml # Bowel Movements 1 General: Alert, Oriented X3, Cooperative, No Acute Distress HEENT: Atraumatic Lungs: Clear to Auscultation, Normal Air Movement Heart: Regular Rate, Normal S1, Normal S2, No Murmurs Abdomen: Normal Bowel Sounds, Soft, No Tenderness Extremities: No Edema Skin: No Rashes, No Significant Lesion Neuro: Normal Speech Psych/Mental Status: Mental Status NL, Mood NL Results Lab Laboratory Tests 08/13/21 07:06 A/P-Cardiology Admission Diagnosis Chest pain Shortness of breath Congestive heart failure, acute on chronic left ventricular diastolic dysfunction, nonischemic cardiomyopathy Coronary artery disease Assessment/Plan Chest pain, atypical in presentation. Mainly musculoskeletal pain. Patient has extensive cardiac history, cardiac enzymes are negative, EKG did not show any acute abnormality. Continue to monitor for now Shortness of breath, multifactorial. Reporting some improvement today. Acute exacerbation of COPD and congestive heart failure. Started on bronchodilator, continue on BID Lasix. Congestive heart failure, acute on chronic left ventricular diastolic dys function, normal systolic function, last echocardiogram was reported by Dr. Quinones in May 2021 as normal left ventricular function with ejection fraction 60 to 65%, questionable mild mitral stenosis and severe pulmonary hypertension with PA pressure 60 mmHg. Clinically improving. Still having some cough and upper respiratory tract congestion. History of mitral valve stenosis, had a THANH done by Dr. Gavin in 2017 and reporting moderate stenosis. Coronary artery disease, Cardiac catheterization done in December 2015 and had severe stenosis in the obtuse marginal branch underwent Promus Premier stent 2.5 x 60 mm with excellent results Repeat cardiac catheterization done [place] [address] Vargas in [facility] showing patent stent in the obtuse marginal branch with nonobstructive disease Repeat cardiac catheterization was done in [address] Gavin and did not require any intervention. COPD, acute exacerbation. Followed and managed by Dr. Murcia as an outpatient. Maintained on home oxygen. Managed by medical team. Severe pulmonary hypertension secondary to valvular heart disease and congestive heart failure and COPD Maintained on sildenafil 20 mg 3 times a day. Managed by Dr. Rader Carotid stenosis, history of carotid endarterectomy done by Dr. Victoria in 2015. Hypertension,controlled, continue to monitor. Hyperlipidemia, monitor lipids Chronic venous insufficiency. Diabetes mellitus, followed and managed by primary care physician Degenerative joint disease, spinal stenosis, scoliosis. Systemic lupus erythematous Obesity. NGHIA GUTIERREZ MD Aug 13, 2021 08:57
[2021-08-13] MEDS ORDERED: INSULIN DEGLUDEC 20 UNIT SC SCH (09:00)
[2021-08-13] MEDS ORDERED: INSULIN DEGLUDEC SC SCH (09:00)
--- NOTE | 2021-08-13 09:34 | Physical Therapy Daily Note ---
PT Daily Note-Current Subjective Patient agrees to PT. No c/o at this time. Mental Status Patient Orientation: Normal For Age Attachments: Oxygen (4L) Transfers SCALE: Activities may be completed with or without assistive devices. 2-Cgbdqywbvg-pouwghr completes the activity by him/herself with no assistance from a helper. 5-Set-up or Clean-up Assistance-helper sets up or cleans up; patient completes activity. [place] assists only prior to or following the activity. 4-Supervision or Touching Assistance-helper provides verbal cues and/or touching/steadying and/or contact guard assistance as patient completes activity. Assistance may be provided throughout the activity or intermittently. 3-Partial/Moderate Assistance-helper does LESS THAN HALF the effort. [place] lifts, holds or supports trunk or limbs, but provides less than half the effort. 2-Substantial/Maximal Assistance-helper does MORE THAN HALF the effort. [place] lifts or holds trunk or limbs and provides more than half the effort. 1-Zwsiosbhj-prtchr does ALL the effort. Patient does none of the effort to complete the activity. Or, the assistance of 2 or more helpers is required for the patient to complete the activity. If activity was not attempted, code reason: 7-Patient Refused. 9-Not Applicable-not attempted and the patient did not perform the activity before the current illness, exacerbation or injury. 10-Not Attempted due to Environmental Limitations-(lack of equipment, weather restraints, etc.). 88-Not Attempted due to Medical Conditions or Safety Concerns. Sit to Stand (QC): 6 Gait Training Distance: 200' Walk 10 feet (QC): 4 Walk 50 ft with 2 Turns(QC): 4 Walk 150 ft (QC): 4 Gait Assistive Device: FWW slow and steady Exercises Seated Therapy Exercises: Ankle pumps, Long arc quads Assessment Patient has mild SOA with activity. Patient remains up in recliner with needs met. O2 4L NC remains. PT Fdc Goals Fdc Goals PT Director Safety Council Goals Time Frame: Aug 24, 2021 Roll Left & Right (QC): 6 Sit to Lying (QC): 6 Lying-Sitting on Side/Bed(QC): 6 Sit to Stand (QC): 6 Chair/Jht-mr-Jmznc Xfer(QC): 6 Toilet Transfer (QC): 6 Walk 10 feet (QC): 6 Walk 50ft with 2 Turns (QC): 6 Walk 150 ft (QC): 6 PT Plan Treatment/Plan Treatment Plan: Continue Plan of Care Treatment Plan: Bed Mobility, Education, Functional Activity Lola, Functional Strength, Gait, Safety, Therapeutic Exercise, Transfers Treatment Duration: Aug 24, 2021 Frequency: 6 times per week Estimated Hrs Per Day: .25 hour per day Patient and/or Family Agrees t: Yes Time/GCodes Time In: 853 Time Out: 904 Total Billed Treatment Time: 11 Total Billed Treatment 1 visit FA 11 min ARON GAMBLE PT Aug 13, 2021 09:34
--- NOTE | 2021-08-13 09:57 | Occupational Ther Daily Note ---
OT Current Status-Daily Note Subjective Pt reports she has been having trouble/pain with swallowing. She states that she told the COAL WEIGHER who was supposed to be notifying the RN. Appearance Pt returned to sitting in recliner, all needs within reach. Mental Status/Objective Patient Orientation: Person, Place, Situation Attachments: IV, Oxygen ADL-Treatment Therapy Code Descriptions/Definitions Functional Champion Measure: 0=Not Assessed/NA 4=Minimal Assistance 1=Total Assistance 5=Supervision or Setup 2=Maximal Assistance 6=Modified Champion 3=Moderate Assistance 7=Complete IndependenceSCALE: Activities may be completed with or without assistive devices. 3-Qobnxjxgrl-otulvle completes the activity by him/herself with no assistance from a helper. 5-Set-up or Clean-up Assistance-helper sets up or cleans up; patient completes activity. [place] assists only prior to or following the activity. 4-Supervision or Touching Assistance-helper provides verbal cues and/or touching/steadying and/or contact guard assistance as patient completes act ivity. Assistance may be provided throughout the activity or intermittently. 3-Partial/Moderate Assistance-helper does LESS THAN HALF the effort. [place] lifts, holds or supports trunk or limbs, but provides less than half the effort. 2-Substantial/Maximal Assistance-helper does MORE THAN HALF the effort. [place] lifts or holds trunk or limbs and provides more than half the effort. 5-Cvtolpirt-vrrzbr does ALL the effort. Patient does none of the effort to complete the activity. Or, the assistance of 2 or more helpers is required for the patient to complete the activity. If activity was not attempted, code reason: 7-Patient Refused. 9-Not Applicable-not attempted and the patient did not perform the activity before the current illness, exacerbation or injury. 10-Not Attempted due to Environmental Limitations-(lack of equipment, weather restraints, etc.). 88-Not Attempted due to Medical Conditions or Safety Concerns. Lower Body Dressing (QC): 4 On/Off Footwear: 4 Toileting Hygiene (QC): 6 Toilet Transfer (QC): 6 Pt sitting in recliner at OT arrival. During eval, pt reported that she uses AE to don LB clothing. OT provided pt with AE this date to demonstrate correct use. Min verbal cues for improved technique/performance but no physical assistance needed when using sock aid or pacu rn. Sit<>stand: indep. Pt ambulated to/from bathroom with walker and sba, cue for attention to O2 line. She transferred and completed all steps of toileting without assistance or cues for safety. Pt appears to be back at baseline for adls. No further OT services warranted at this time. Education OT Patient Education: Correct positioning, Energy conservation, Modified ADL techniques, Progress toward Goal/Update tx plan, Purpose of tx/functional activities, Safety issues Teaching Recipient: Patient, Family Teaching Methods: Demonstration, Discussion Response to Teaching: Verbalize Understanding, Return Demonstration OT Plate Printer Goals Plate Printer Goals Time Frame: Aug 19, 2021 Oral Hygiene (QC): 5 (met) Toileting Hygiene (QC): 4 (met) Shower/Bathe Self (QC): 4 Upper Body Dressing (QC): 5 Lower Body Dressing (QC): 4 (met) On/Off Footwear (QC): 4 (met) 1=Demonstrate adherence to instructed precautions during ADL tasks. 2=Patient will verbalize/demonstrate understanding of assistive devices/modifications for ADL. 3=Patient will improve strength/tolerance for activity to enable patient to perform ADL's. OT Education/Plan Problem List/Assessment Assessment: No Skilled OT Needs ID'd Discharge Recommendations Plan/Recommendations: Discharge/Goals Met Equpiment Recommendations-D/C: [employer] French Teacher, Sock Aide Comment Pt owns necessary equipment Treatment Plan/Plan of Care Treatment,Training & Education: Yes Patient would benefit from OT for education, treatment and training to promote independence in ADL's, mobility, safety and/or upper extremity function for ADL's. Plan of Care: ADL Retraining, Functional Mobility, Group Exercise/Act as Ind, UE Funct Exercise/Act Treatment Duration: Aug 19, 2021 Frequency: 3 times per week (3-5x/week) Estimated Hrs Per Day: .25 hour per day Agreement: Yes Rehab Potential: Fair Time/GCodes Start Time: 09:40 Stop Time: 09:50 Total Time Billed (hr/min): 10 Billed Treatment Time 1 visit ADL Angélica Leija OT Aug 13, 2021 09:57
--- NOTE | 2021-08-13 10:17 | D/C HH Face to Face Order ---
D/C Face to Face Orders Reconcile Patient Problems Problems Reviewed?: Yes Instructions for Patient Via [facility], Patient Instructions/FollowUp: dr bailey 08/29/21 Physician to follow Patient: moises Discharge Diet for Home: ADA Diet Patient Problems: chf copd dm Patient Data-Allergies,Ht & Wt Patient Allergies: Coded Allergies: Penicillins (Verified Allergy, Unknown, 05/15/19) meperidine (Verified Allergy, Unknown, 09/06/19) morphine (Unverified Allergy, Unknown, 05/15/19) propoxyphene (Verified Allergy, Unknown, 05/15/19) topiramate (Verified Allergy, Unknown, 05/15/19) codeine (Verified Adverse Reaction, Unknown, UPSET STOMACH, 09/13/19) dapagliflozin (Verified Adverse Reaction, Unknown, yeast infection, 09/13/19) Height (Feet): 5 Height (Inches): 4.00 Weight (Pounds): 246 Weight (Ounces): 6.0 Home Health Need/Face to Face Date of Face to Face: Aug 13, 2021 Clinical Findings: Generalized weakness and fatigue, Instability, Muscle weakness, Shortness of breath I have seen Pt [id number]: Yes Discharged To: Home Diagnosis/Conditions: chf Patient is Homebound due to: Muscle weakness Homebound Status Due to the above stated illness, injury or surgical procedure (medical condition or diagnosis) and associated clinical findings, the patient is home bound because of his/her inability to leave home except with aid of a supportive device and/or person AND leaving the home requires a considerable and taxing effort or is medically contraindicated. Pt req the following assistanc: Walker Home Health Nursing Orders Home Health Services Order: Nursing Services, Director Trade-Evaluate & Treat, Physical Therapy-Evaluate & Treat Home Health Infusion Therapy Line Start Date: Aug 11, 2021 Certify Stmt I certify that this patient is under my care and that I, a nurse practitioner or a physician; a administrative assistant coordinator working with me, had a face to face encounter that - meets the physician face to face encounter requirements with this patient as dated. FERN BAILEY DO Aug 13, 2021 10:17
--- NOTE | 2021-08-13 10:17 | Discharge Summary ---
Diagnosis/Chief Complaint Date of Admission Aug 11, 2021 at 07:44 Date of Discharge Discharge Date: Aug 13, 2021 Discharge Diagnosis Assessment: Acute volume overload AECHF AECOPD DM HTN HLP Anxiety Discharge Summary Discharge Physical Examination Allergies: Coded Allergies: Penicillins (Verified Allergy, Unknown, 05/15/19) meperidine (Verified Allergy, Unknown, 09/06/19) morphine (Unverified Allergy, Unknown, 05/15/19) propoxyphene (Verified Allergy, Unknown, 05/15/19) topiramate (Verified Allergy, Unknown, 05/15/19) codeine (Verified Adverse Reaction, Unknown, UPSET STOMACH, 09/13/19) dapagliflozin (Verified Adverse Reaction, Unknown, yeast infection, 09/13/19) Vitals & I&Os Vital Signs Date Time Temp Pulse Resp B/P (MAP) Pulse Ox O2 Delivery O2 Flow Rate FiO2 08/13/21 15:59 36.2 87 20 101/55 92 Nasal Cannula 4.00 08/11/21 08:42 36 General Appearance: Alert, Oriented X3, Cooperative Respiratory: Clear to Auscultation Cardiovascular: Regular Rate Neuro: Normal Gait, Normal Speech, Strength at 5/5 X4 Ext Psych/Mental Status: Mental Status NL Hospital Course Was the Problem List Reviewed?: Yes Hospital course: patient had a lengthy observation course after she was admitted for dyspnea and wheezing and was found to have AECHF so Lasix given for volume overload and Cardiology consulted. Patient had good results with diuresis. O2 requirements returned to baseline. Edema improved. Home meds restarted. Insulin maintained. Patient was deemed stable for DC with and close f/u with ar and Dr Gavin Labs (last 24 hrs) Laboratory Tests 08/11/21 04:10: Influenza Type A (RT-PCR) Not Detected, Influenza Type B (RT-PCR) Not Detected, SARS-CoV-2 RNA (RT-PCR) Not Detected 08/11/21 04:25: White Blood Count 11.8H, Red Blood Count 3.06L, Hemoglobin 9.3L, Hematocrit 30L, Mean Corpuscular Volume 97, Mean Corpuscular Hemoglobin 30, Mean Corpuscular Hemoglobin Concent 31L, Red Cell Distribution Width 15.7H, Platelet Count 178, Mean Platelet Volume 9.6, Immature Granulocyte % (Auto) 1, Neutrophils (%) (Auto) 86H, Lymphocytes (%) (Auto) 7L, Monocytes (%) (Auto) 5, Eosinophils (%) (Auto) 1, Basophils (%) (Auto) 1, Neutrophils # (Auto) 10.1H, Lymphocytes # (Auto) 0.8L, Monocytes # (Auto) 0.6, Eosinophils # (Auto) 0.1, Basophils # (Auto) 0.1, Immature Granulocyte # (Auto) 0.1, Neutrophils % (Manual) 85, Lymphocytes % (Manual) 9, Monocytes % (Manual) 4, Eosinophils % (Manual) 2, Polychromasia SLIGHT, Anisocytosis SLIGHT, Microcytosis SLIGHT, Elliptocytes SLIGHT, Erythrocyte Sedimentation Rate 54H, Prothrombin Time 14.8H, INR Comment 1.1, Activated Partial Thromboplast Time 39H, D-Dimer 0.82H, Sodium Level 138, Potassium Level 4.7, Chloride Level 101, Carbon Dioxide Level 26, Anion Gap 11, Blood Urea Nitrogen 19H, Creatinine 1.25, Estimat Glomerular Filtration Rate 47, BUN/Creatinine Ratio 15, Glucose Level 207H, Lactic Acid Level 1.75, Calcium Level 8.0L, Corrected Calcium 8.5, Magnesium Level 1.9, Total Bilirubin 0.4, Aspartate Amino Transf (AST/SGOT) 16, Alanine Aminotransferase (ALT/SGPT) 16, Alkaline Phosphatase 106, Total Creatine Kinase 34, Creatine Kinase MB 1.0, Myoglobin 55.9, Troponin I < 0.028, C-Reactive Protein High Sensitivity 3.62H, B-Type Natriuretic Peptide 1214.7H, Total Protein 6.5, Albumin 3.4, Procalcitonin 0.04 08/11/21 04:50: Urine Color YELLOW, Urine Clarity CLEAR, Urine pH 6.0, Urine Specific [place] 1.020, Urine Protein NEGATIVE, Urine Glucose (UA) TRACEH, Urine Ketones NEGATIVE, Urine Nitrite NEGATIVE, Urine Bilirubin NEGATIVE, Urine Urobilinogen 0.2, Urine Leukocyte Esterase NEGATIVE, Urine RBC (Auto) NEGATIVE, Urine RBC NONE, Urine WBC NONE, Urine Squamous Epithelial Cells 0-2, Urine Crystals NONE, Urine Bacteria NEGATIVE, Urine Casts NONE, Urine Mucus NEGATIVE, Urine Culture Indicated NO 08/11/21 10:59: Glucometer 169H 08/11/21 16:00: Glucometer 195H 08/11/21 20:33: Glucometer 221H 08/12/21 05:00: 08/12/21 05:49: Glucometer 118H 08/12/21 05:50: White Blood Count 10.1, Red Blood Count 3.29L, Hemoglobin 9.9L, Hematocrit 32L, Mean Corpuscular Volume 97, Mean Corpuscular Hemoglobin 30, Mean Corpuscular Hemoglobin Concent 31L, Red Cell Distribution Width 15.7H, Platelet Count 185, Mean Platelet Volume 9.9, Sodium Level 137, Potassium Level 3.9, Chloride Level 97L, Carbon Dioxide Level 29, Anion Gap 11, Blood Urea Nitrogen 19H, Creatinine 1.26, Estimat Glomerular Filtration Rate 47, BUN/Creatinine Ratio 15, Glucose Level 124H, Calcium Level 8.4L, Total Bilirubin 0.6, Direct Bilirubin 0.3, Indirect Bilirubin 0.3, Aspartate Amino Transf (AST/SGOT) 17, Alanine Aminotransferase (ALT/SGPT) 17, Alkaline Phosphatase 128, Total Protein 6.7, Albumin 3.4, Thyroid Stimulating Hormone (TSH) 3.10 08/12/21 11:37: Glucometer 258H 08/12/21 15:29: Glucometer 208H 08/12/21 20:04: Glucometer 212H 08/13/21 06:50: Glucometer 133H 08/13/21 07:06: White Blood Count 8.3, Red Blood Count 3.29L, Hemoglobin 9.9L, Hematocrit 32L, Mean Corpuscular Volume 98, Mean Corpuscular Hemoglobin 30, Mean Corpuscular Hemoglobin Concent 31L, Red Cell Distribution Width 16.0H, Platelet Count 180, Mean Platelet Volume 9.7, Immature Granulocyte % (Auto) 1, Neutrophils (%) (Auto) 77H, Lymphocytes (%) (Auto) 11L, Monocytes (%) (Auto) 9, Eosinophils (%) (Auto) 3, Basophils (%) (Auto) 1, Neutrophils # (Auto) 6.4, Lymphocytes # (Auto) 0.9L, Monocytes # (Auto) 0.7, Eosinophils # (Auto) 0.2, Basophils # (Auto) 0.1, Immature Granulocyte # (Auto) 0.1, Sodium Level 138, Potassium Level 4.0, Chl oride Level 95L, Carbon Dioxide Level 29, Anion Gap 14, Blood Urea Nitrogen 28H, Creatinine 1.66H, Estimat Glomerular Filtration Rate 34, BUN/Creatinine Ratio 17, Glucose Level 152H, Calcium Level 8.3L, Corrected Calcium 8.9, Total Bilirubin 0.4, Aspartate Amino Transf (AST/SGOT) 15, Alanine Aminotransferase (ALT/SGPT) 15, Alkaline Phosphatase 108, Total Protein 6.6, Albumin 3.3 08/13/21 11:46: Glucometer 251H Microbiology 08/11/21 Urine Culture - Final, Complete Lactobacillus gasseri 08/11/21 Blood Culture - Preliminary, Resulted No growth Pending Labs Microbiology Date/Time Source Procedure Growth Status 08/11/21 04:50 Urine Bran Cath Urine Culture - Final Lactobacillus gasseri Complete 08/11/21 04:35 Peripheral Rt Forearm Blood Culture - Preliminary No growth Resulted 08/11/21 04:25 Peripheral Rt Hand Blood Culture - Preliminary No growth Resulted Laboratory Tests 08/11/21 04:10: Influenza Type A (RT-PCR) Not Detected, Influenza Type B (RT-PCR) Not Detected, SARS-CoV-2 RNA (RT-PCR) Not Detected 08/11/21 04:25: White Blood Count 11.8, Red Blood Count 3.06, Hemoglobin 9.3, Hematocrit 30, Mean Corpuscular Volume 97, Mean Corpuscular Hemoglobin 30, Mean Corpuscular Hemoglobin Concent 31, Red Cell Distribution Width 15.7, Platelet Count 178, Mean Platelet Volume 9.6, Immature Granulocyte % (Auto) 1, Neutrophils (%) (Auto) 86, Lymphocytes (%) (Auto) 7, Monocytes (%) (Auto) 5, Eosinophils (%) (Auto) 1, Basophils (%) (Auto) 1, Neutrophils # (Auto) 10.1, Lymphocytes # (Auto) 0.8, Monocytes # (Auto) 0.6, Eosinophils # (Auto) 0.1, Basophils # (Auto) 0.1, Immature Granulocyte # (Auto) 0.1, Neutrophils % (Manual) 85, Lymphocytes % (Manual) 9, Monocytes % (Manual) 4, Eosinophils % (Manual) 2, Polychromasia SLIGHT, Anisocytosis SLIGHT, Microcytosis SLIGHT, Elliptocytes SLIGHT, Erythrocyte Sedimentation Rate 54, Prothrombin Time 14.8, INR Comment 1.1, Activated Partial Thromboplast Time 39, D-Dimer 0.82, Sodium Level 138, Potassium Level 4.7, Chloride Level 101, Carbon Dioxide Level 26, Anion Gap 11, Blood Urea Nitrogen 19, Creatinine 1.25, Estimat Glomerular Filtration Rate 47, BUN/Creatinine Ratio 15, Glucose Level 207, Lactic Acid Level 1.75, Calcium Level 8.0, Corrected Calcium 8.5, Magnesium Level 1.9, Total Bilirubin 0.4, Aspartate Amino Transf (AST/SGOT) 16, Alanine Aminotransferase (ALT/SGPT) 16, Alkaline Phosphatase 106, Total Creatine Kinase 34, Creatine Kinase MB 1.0, Myoglobin 55.9, Troponin I < 0.028, C-Reactive Protein High Sensitivity 3.62, B- Type Natriuretic Peptide 1214.7, Total Protein 6.5, Albumin 3.4, Procalcitonin 0.04 08/11/21 04:50: Urine Color YELLOW, Urine Clarity CLEAR, Urine pH 6.0, Urine Specific [place] 1.020, Urine Protein NEGATIVE, Urine Glucose (UA) TRACE, Urine Ketones NEGATIVE, Urine Nitrite NEGATIVE, Urine Bilirubin NEGATIVE, Urine Urobilinogen 0.2, Urine Leukocyte Esterase NEGATIVE, Urine RBC (Auto) NEGATIVE, Urine RBC NONE, Urine WBC NONE, Urine Squamous Epithelial Cells 0-2, Urine Crystals NONE, Urine Bacteria NEGATIVE, Urine Casts NONE, Urine Mucus NEGATIVE, Urine Culture Indicated NO 08/11/21 10:59: Glucometer 169 08/11/21 16:00: Glucometer 195 08/11/21 20:33: Glucometer 221 08/12/21 05:00: Thyroglobulin Level [Pending], Thyroglobulin Antibody [Pending] 08/12/21 05:49: Glucometer 118 08/12/21 05:50: White Blood Count 10.1, Red Blood Count 3.29, Hemoglobin 9.9, Hematocrit 32, Mean Corpuscular Volume 97, Mean Corpuscular Hemoglobin 30, Mean Corpuscular Hemoglobin Concent 31, Red Cell Distribution Width 15.7, Platelet Count 185, Mean Platelet Volume 9.9, Sodium Level 137, Potassium Level 3.9, Chloride Level 97, Carbon Dioxide Level 29, Anion Gap 11, Blood Urea Nitrogen 19, Creatinine 1.26, Estimat Glomerular Filtration Rate 47, BUN/Creatinine Ratio 15, Glucose Level 124, Calcium Level 8.4, Total Bilirubin 0.6, Direct Bilirubin 0.3, Indirect Bilirubin 0.3, Aspartate Amino Transf (AST/SGOT) 17, Alanine Aminotransferase (ALT/SGPT) 17, Alkaline Phosphatase 128, Total Protein 6.7, A lbumin 3.4, Thyroid Stimulating Hormone (TSH) 3.10 08/12/21 11:37: Glucometer 258 08/12/21 15:29: Glucometer 208 08/12/21 20:04: Glucometer 212 08/13/21 06:50: Glucometer 133 08/13/21 07:06: White Blood Count 8.3, Red Blood Count 3.29, Hemoglobin 9.9, Hematocrit 32, Mean Corpuscular Volume 98, Mean Corpuscular Hemoglobin 30, Mean Corpuscular Hemoglobin Concent 31, Red Cell Distribution Width 16.0, Platelet Count 180, Mean Platelet Volume 9.7, Immature Granulocyte % (Auto) 1, Neutrophils (%) (Auto) 77, Lymphocytes (%) (Auto) 11, Monocytes (%) (Auto) 9, Eosinophils (%) (Auto) 3, Basophils (%) (Auto) 1, Neutrophils # (Auto) 6.4, Lymphocytes # (Auto) 0.9, Monocytes # (Auto) 0.7, Eosinophils # (Auto) 0.2, Basophils # (Auto) 0.1, Immature Granulocyte # (Auto) 0.1, Sodium Level 138, Potassium Level 4.0, Chloride Level 95, Carbon Dioxide Level 29, Anion Gap 14, Blood Urea Nitrogen 28, Creatinine 1.66, Estimat Glomerular Filtration Rate 34, BUN/Creatinine Ratio 17, Glucose Level 152, Calcium Level 8.3, Corrected Calcium 8.9, Total Bilirubin 0.4, Aspartate Amino Transf (AST/SGOT) 15, Alanine Aminotransferase (ALT/SGPT) 15, Alkaline Phosphatase 108, Total Protein 6.6, Albumin 3.3 08/13/21 11:46: Glucometer 251 Discharge Home Medications: Active Scripts Active Reported Yupelri (Revefenacin) 175 Mcg/3 Ml Vial.neb 175 Mcg IH 1200 Perforomist (Formoterol Fumarate) 20 Mcg/2 Ml Vial.neb 20 Mcg IH BID Budesonide 0.5 Mg/2 Ml Ampul.neb 0.5 Mg IH BID Vitamin D3 (Cholecalciferol (Vitamin D3)) 125 Mcg (5000 Unit) Tablet 125 Mcg PO DAILY Vitamin C (Ascorbate Calcium) 500 Mg Tablet 500 Mg PO DAILY Zinc (Zinc Amino Acid Chelate) 50 Mg Tablet 50 Mg PO DAILY Voltaren Arthritis Pain (Diclofenac Sodium) 1 % Gel..gram. 1 Applic TP DAILY Neurontin (Gabapentin) 300 Mg Capsule 300 Mg PO BID Tresiba Flextouch U-200 (Insulin Degludec) 200 Unit/Ml (3 Ml) Insuln.pen 40 Unit SQ HS Venlafaxine HCl ER (Venlafaxine HCl) 150 Mg Cap.er.24h 150 Mg PO DAILY Sildenafil (Sildenafil Citrate) 20 Mg Tablet 20 Mg PO TID Melatonin 3 mg Tablet (Melatonin/Pyridoxine HCl (B6)) 3 Mg-10 Mg Tablet 1 Each PO HS Buspirone HCl 5 Mg Tablet 5 Mg PO TID Insulin Aspart Flexpen (Insulin Aspart) 100 Unit/Ml (3 Ml) Insuln.pen 6 Unit SQ ACHS Furosemide 40 Mg Tablet 40 Mg PO DAILY Simvastatin 10 Mg Tablet 10 Mg PO HS Montelukast Sodium 10 Mg Tablet 10 Mg PO HS Potassium Chloride 10 Meq Tab.er.prt 10 Meq PO DAILY Trazodone HCl 100 Mg Tablet 100 Mg PO HS Pantoprazole Sodium 40 Mg Tablet.dr 40 Mg PO DAILY Levothyroxine Sodium 125 Mcg Tablet 125 Mcg PO DAILY Tylenol Extra Strength (Acetaminophen) 500 Mg Tablet 1,000 Mg PO BID PRN Aspirin EC (Aspirin) 81 Mg Tablet.dr 81 Mg PO DAILY Metoprolol Succinate 25 Mg Tab.er.24h 25 Mg PO DAILY Losartan Potassium 50 Mg Tablet 50 Mg PO HS Tresiba Flextouch U-200 (Insulin Degludec) 200 Unit/1 Ml Insuln.pen 20 Units SC DAILY Instructions to patient/family Please see electronic discharge instructions given to patient. FERN BAILEY DO Aug 13, 2021 10:17
[2021-08-13 12:22] VITALS: BP 101/55
[2021-08-13 15:59] VITALS: BP 101/55
[2021-08-13] MEDS ORDERED: INSULIN DEGLUDEC 40 UNIT SQ SCH (21:00)
[2021-08-13] MEDS ORDERED: INSULIN DEGLUDEC SQ SCH (21:00)
== END 2021-08-13 16:01 | disposition home health service (06) ==
LOC: EDUNIT# 04:02 → ER 04:04 → 4TH 07:44
PROVIDERS: ADMIT Family Medicine; ATTEND Internal Medicine
DX: I11.0 Hypertensive heart disease with heart failure (principal); I50.33 Acute on chronic diastolic (congestive) heart failure; J44.1 Chronic obstructive pulmonary disease with (acute) exacerbation; J96.10 Chronic respiratory failure, unspecified whether with hypoxia or hypercapnia; E11.42 Type 2 diabetes mellitus with diabetic polyneuropathy; I42.8 Other cardiomyopathies; I27.20 Pulmonary hypertension, unspecified; Z66 Do not resuscitate; Z20.822 Contact with and (suspected) exposure to COVID-19; E66.9 Obesity, unspecified; Z68.41 Body mass index [BMI] 40.0-44.9, adult; I05.0 Rheumatic mitral stenosis; D64.9 Anemia, unspecified; I25.10 Atherosclerotic heart disease of native coronary artery without angina pectoris; E78.5 Hyperlipidemia, unspecified; I87.2 Venous insufficiency (chronic) (peripheral); M32.9 Systemic lupus erythematosus, unspecified; F41.9 Anxiety disorder, unspecified; Z99.81 Dependence on supplemental oxygen; Z79.4 Long term (current) use of insulin; Z95.5 Presence of coronary angioplasty implant and graft; Z79.82 Long term (current) use of aspirin; Z88.5 Allergy status to narcotic agent; Z88.0 Allergy status to penicillin; Z88.8 Allergy status to other drugs, medicaments and biological substances; Z83.3 Family history of diabetes mellitus; Z82.49 Family history of ischemic heart disease and other diseases of the circulatory system
CPT/HCPCS: 36415; 51702; 71045; 71275; 80048; 80053; 80076; 81000; 82550; 82553; 82947; 83605; 83735; 83874; 83880; 84145; 84432; 84443; 84484; 85007; 85025; 85027; 85379; 85610; 85652; 85730; 86141; 86800; 87040; 87088; 87636; 93005; 93041; 94640; 94760; 96375; 96376

== ENCOUNTER → 2021-11-29 | Outpatient (CLI) | payer MEDICARE, OTHER ==
[~2021-11-29] MED LIST changes: +ASCO-262 PO; +BETA15CR14 TOP; +BUDE0.5A IH; +BUSP5TAB59 PO; +DICL20GE TP; +FURO40TA4 PO; +GABA300C PO; +GABA300S2 PO; +INSU100I55 SQ; +INSU200I4 SQ; +LEVO750T PO; -LEVO750T39 PO; +MELA1TAB27 PO; +MELA3TAB39 PO; +POTA-177 PO; -POTA10TA37 PO; +SILD20TA14 PO; +SIMV10TA26 PO; +VENL150C98 PO; +ZINC50TA51 PO
== END ==
LOC: CARD 07:52
PROVIDERS: ATTEND Internal Medicine Critical Care Medicine
DX: I08.3 Combined rheumatic disorders of mitral, aortic and tricuspid valves (principal); I27.23 Pulmonary hypertension due to lung diseases and hypoxia; J44.9 Chronic obstructive pulmonary disease, unspecified; J96.11 Chronic respiratory failure with hypoxia
CPT/HCPCS: 93306

== ENCOUNTER 2021-12-02 14:26 | Inpatient (IN) | payer MEDICARE, OTHER ==
[2021-12-02] VITALS (11 sets, daily range): BP systolic 120–148; BP diastolic 59–117
[~2021-12-02] VITALS: Ht 170 cm; Wt 117.5 kg
[~2021-12-02 14:26] MED LIST changes: -BETA15CR14 TOP; -MELA3TAB39 PO
--- NOTE | 2021-12-02 14:53 | ED Respiratory ---
General Chief Complaint: Respiratory Problems Stated Complaint: CHF Nursing Triage Note: ARRIVED VIA EMS FROM DR ARNOLD OFFICE WITH SOA AND SYNCOPE. Source: patient Exam Limitations: no limitations History of Present Illness Date Seen by Provider: Dec 02, 2021 Time Seen by Provider: 14:51 Initial Comments To ER by EMS from Dr. Bailey's office with shortness of breath and syncope. She presented there today after 1 week of progressive dyspnea. She has a history of "lung problems" and CHF. She is chronically on oxygen at home at 4 L per nasal cannula. Timing/Duration: week, getting worse Severity: moderate Associated Symptoms: shortness of breath Allergies and Home Medications Allergies Coded Allergies: Penicillins (Verified Allergy, Unknown, 05/15/19) meperidine (Verified Allergy, Unknown, 09/06/19) morphine (Unverified Allergy, Unknown, 05/15/19) propoxyphene (Verified Allergy, Unknown, 05/15/19) topiramate (Verified Allergy, Unknown, 05/15/19) codeine (Verified Adverse Reaction, Unknown, UPSET STOMACH, 09/13/19) dapagliflozin (Verified Adverse Reaction, Unknown, yeast infection, 09/13/19) Patient Home Medication List Home Medication List Reviewed: Yes Acetaminophen (Tylenol Extra Strength) 500 Mg Tablet, 1,000 MG PO BID PRN for PAIN-MILD, (Reported) Entered as Reported by: MOODY FRANCO on 11/02/17 1632 Ascorbate Calcium (Vitamin C) 500 Mg Tablet, 500 MG PO DAILY, (Reported) Entered as Reported by: TEJA PORTILLO on 08/12/21 1323 Aspirin (Aspirin EC) 81 Mg Tablet.dr, 81 MG PO DAILY, (Reported) Entered as Reported by: MOODY FRANCO on 11/02/17 1632 Budesonide (Budesonide) 0.5 Mg/2 Ml Ampul.neb, 0.5 MG IH BID, (Reported) Entered as Reported by: TEJA PORTILLO on 08/12/21 1503 Buspirone HCl (Buspirone HCl) 5 Mg Tablet, 5 MG PO TID, (Reported) Entered as Reported by: Linh Cat on 08/11/21 1009 Cholecalciferol (Vitamin D3) (Vitamin D3) 125 Mcg (5000 Unit) Tablet, 125 MCG PO DAILY, (Reported) Entered as Reported by: TEJA PORTILLO on 08/12/21 1324 Diclofenac Sodium (Voltaren Arthritis Pain) 1 % Gel..gram., 1 APPLIC TP DAILY, (Reported) Entered as Reported by: TEJA PORTILLO on 08/12/21 1322 Formoterol Fumarate (Perforomist) 20 Mcg/2 Ml Vial.neb, 20 MCG IH BID, (Reported) Entered as Reported by: TEJA PORTILLO on 08/12/21 1503 Furosemide (Furosemide) 40 Mg Tablet, 40 MG PO DAILY, (Reported) Entered as Reported by: Linh Cat on 08/11/21 1009 Gabapentin (Neurontin) 300 Mg Capsule, 300 MG PO BID, (Reported) Entered as Reported by: TEJA PORTILLO on 08/12/21 1320 Insulin Aspart (Insulin Aspart Flexpen) 100 Unit/Ml (3 Ml) Insuln.pen, 6 UNIT SQ ACHS, (Reported) Entered as Reported by: Linh Cat on 08/11/21 1009 Insulin Degludec (Tresiba Flextouch U-200) 200 Unit/1 Ml Insuln.pen, 20 UNITS SC DAILY, (Reported) Entered as Reported by: MOODY FRANCO on 11/02/17 1632 Insulin Degludec (Tresiba Flextouch U-200) 200 Unit/Ml (3 Ml) Insuln.pen, 40 UNIT SQ HS, (Reported) Entered as Reported by: TEJA PORTILLO on 08/12/21 1319 Levothyroxine Sodium (Levothyroxine Sodium) 125 Mcg Tablet, 125 MCG PO DAILY, (Reported) Entered as Reported by: ALHAJI HORTA on 09/13/19 0833 Losartan Potassium (Losartan Potassium) 50 Mg Tablet, 50 MG PO HS, (Reported) Entered as Reported by: MOODY FRANCO on 11/02/17 1632 Melatonin/Pyridoxine HCl (B6) (Melatonin 3 mg Tablet) 3 Mg-10 Mg Tablet, 1 EACH PO HS, (Reported) Entered as Reported by: Linh Cat on 08/11/21 1009 Metoprolol Succinate (Metoprolol Succinate) 25 Mg Tab.er.24h, 25 MG PO DAILY, (Reported) Entered as Reported by: MOODY FRANCO on 11/02/17 1632 Montelukast Sodium (Montelukast Sodium) 10 Mg Tablet, 10 MG PO HS, (Reported) Entered as Reported by: TROY HAQUE on 06/20/20 1407 Pantoprazole Sodium (Pantoprazole Sodium) 40 Mg Tablet.dr, 40 MG PO DAILY, (Reported) Entered as Reported by: ALHAJI HORTA on 09/13/19 0833 Potassium Chloride (Potassium Chloride) 10 Meq Tab.er.prt, 10 MEQ PO DAILY, (Reported) Entered as Reported by: TROY HAQUE on 06/20/20 1407 Revefenacin (Yupelri) 175 Mcg/3 Ml Vial.neb, 175 MCG IH 1200, (Reported) Entered as Reported by: TEJA PORTILLO on 08/12/21 1504 Sildenafil Citrate (Sildenafil) 20 Mg Tablet, 20 MG PO TID, (Reported) Entered as Reported by: Linh Cat on 08/11/21 1009 Simvastatin (Simvastatin) 10 Mg Tablet, 10 MG PO HS, (Reported) Entered as Reported by: Linh Cat on 08/11/21 1009 Trazodone HCl (Trazodone HCl) 100 Mg Tablet, 100 MG PO HS, (Reported) Entered as Reported by: TROY HAQUE on 06/20/20 1407 Venlafaxine HCl (Venlafaxine HCl ER) 150 Mg Cap.er.24h, 150 MG PO DAILY, (Reported) Entered as Reported by: TEJA PORTILLO on 08/12/21 1217 Zinc Amino Acid Chelate (Zinc) 50 Mg Tablet, 50 MG PO DAILY, (Reported) Entered as Reported by: TEJA PORTILLO on 08/12/21 1323 Review of Systems Review of Systems Constitutional: see HPI, other EENTM: see HPI Respiratory: see HPI, dyspnea on exertion, orthopnea Cardiovascular: no symptoms reported Genitourinary: no symptoms reported Musculoskeletal: no symptoms reported Skin: no symptoms reported Psychiatric/Neurological: No Symptoms Reported Hematologic/Lymphatic: No Symptoms Reported Past Pwhthdc-Hukdat-Hchyxe Hx Patient Social History Smoking Status: Never a Smoker Substance use?: No Alcohol Use?: No Immunizations Up To Date Tetanus Booster (TDap): Unknown First/Initial COVID19 Vaccinat: April COVID19 Vaccination Trey: MAY 08, 2020 COVID19 Vaccine Top Cutter: MYRNA Seasonal Allergies Seasonal Allergies: No Past Medical History Surgeries: Yes (FOOT, bilat CTR, carotid endartectomy, bilat TKR) Appendectomy, Cardiac, Coronary Stent, Gallbladder, Orthopedic, Thyroidectomy, Vascular Surgery Respiratory: Yes (CPAP - 3L NC O2 ) Asthma, Pneumonia, Sleep Apnea, COPD Currently Using CPAP: Yes Currently Using BIPAP: No Cardiac: Yes (STENT; CAROTID ENDARTERECTOMY) Cardiomyopathy, Chronic Edema/Swelling, Coronary Artery Disease, High Cholesterol, Hypertension, Valvular Heart Disease Neurological: Yes Neuropathy 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 Sexually Transmitted Disease: No HIV/AIDS: No Genitourinary: Yes UTI-Chronic Gastrointestinal: Yes Colitis, Gastroesophageal Reflux Musculoskeletal: Yes (ARTHRITIS, spinal stenosis) Degenerate Disk Disease, Arthritis, Scoliosis, Chronic Back Pain Endocrine: Yes Diabetes, Insulin dep, Hypothyroidsim HEENT: Yes (nosebleeds) Cancer: No Psychosocial: Yes Anxiety, Depression Integumentary: No Blood Disorders: Yes (ANEMIA) Adverse Reaction/Blood Tranf: No Family Medical History Alzheimer's disease G8 SISTER Diabetes mellitus 19 FATHER Hypertension 19 FATHER 19 MOTHER Myocardial infarction 19 FATHER 19 MOTHER Neoplasm G8 SISTER No Pertinent Family Hx Noncontributory Physical Exam Vital Signs - First Documented 12/02/21 14:26 Temp 36.9 Pulse 92 Resp 16 B/P (MAP) 134/59 (84) Pulse Ox 97 O2 Delivery Nasal Cannula O2 Flow Rate 4.00 Capillary Refill : Less Than 3 Seconds Height: 5'4.00" Weight: 246lbs. 6.0oz. [id number]; 44.00 BMI Method:Stated General Appearance: WD/WN, no apparent distress Eyes: Bilateral Eye Normal Inspection, Bilateral Eye PERRL, Bilateral Eye EOMI HEENT: PERRL/EOMI, normal ENT inspection Neck: non-tender, full range of motion Respiratory: no respiratory distress, no accessory muscle use, decreased breath sounds, other (No respiratory distress. Oxygen saturation 96% on her baseline 4 L. Heart rate 87, blood pressure 123/60.) Cardiovascular: regular rate, rhythm, no murmur Gastrointestinal: normal bowel sounds, non tender Neurologic/Psychiatric: alert, normal mood/affect, oriented x 3 Skin: normal color, warm/dry, other (Erythema bilateral lower extremities with the inferior border of this having a sharply demarcated border at the sock line.) Procedures/Interventions Lumen: triple Central Line Procedure: betadine prep, sterile drapes applied, sterile dressing applied Position: internal jugular (R) Anesthesia: local Volume Anesthetic (ccs): 4 Complications: none Post Position: sutured, good blood return, position confirmed w/ CXR Progress/Results/Core Measures Suspected Sepsis SIRS Temperature: Pulse: 92 Respiratory Rate: 16 Laboratory Tests 12/02/21 16:15: White Blood Count 10.7 Blood Pressure 134 /59 Mean: 84 Laboratory Tests 12/02/21 16:15: Creatinine 1.14, INR Comment 1.2, Platelet Count 138, Total Bilirubin 0.3 Results/Orders Lab Results Laboratory Tests Test 12/02/21 15:30 12/02/21 16:15 Range/Units Blood Gas Puncture Site R RADIAL Blood Gas Patient Temperature 98 Arterial Blood pH 7.38 7.37-7.43 Arterial Blood Partial Pressure CO2 52 H 35-45 MMHG Arterial Blood Partial Pressure O2 65 L 79-93 MMHG Arterial Blood HCO3 30 H 23-27 MMOL/L Arterial Blood Total CO2 31.9 H 21.0-31.0 MMOL/L Arterial Blood Oxygen Saturation 94 94-100 % Arterial Blood Base Excess 5.3 H -2.5-2.5 MMOL/L Derian Test NA Blood Gas Ventilator Setting NO Blood Gas Inspired Oxygen NA White Blood Count 10.7 4.3-11.0 10^3/uL Red Blood Count 3.11 L 3.80-5.11 10^6/uL Hemoglobin 10.2 L 11.5-16.0 g/dL Hematocrit 33 L 35-52 % Mean Corpuscular Volume 106 H 80-99 fL Mean Corpuscular Hemoglobin 33 25-34 pg Mean Corpuscular Hemoglobin Concent 31 L 32-36 g/dL Red Cell Distribution Width 13.0 10.0-14.5 % Platelet Count 138 130-400 10^3/uL Mean Platelet Volume 9.8 9.0-12.2 fL Immature Granulocyte % (Auto) 0 % Neutrophils (%) (Auto) 86 H 42-75 % Lymphocytes (%) (Auto) 8 L 12-44 % Monocytes (%) (Auto) 4 0-12 % Eosinophils (%) (Auto) 2 0-10 % Basophils (%) (Auto) 0 0-10 % Neutrophils # (Auto) 9.2 H 1.8-7.8 10^3/uL Lymphocytes # (Auto) 0.9 L 1.0-4.0 10^3/uL Monocytes # (Auto) 0.5 0.0-1.0 10^3/uL Eosinophils # (Auto) 0.2 0.0-0.3 10^3/uL Basophils # (Auto) 0.0 0.0-0.1 10^3/uL Immature Granulocyte # (Auto) 0.0 0.0-0.1 10^3/uL Prothrombin Time 15.9 H 12.2-14.7 SEC INR Comment 1.2 0.8-1.4 Activated Partial Thromboplast Time 31 24-35 SEC Sodium Level 143 135-145 MMOL/L Potassium Level 4.7 3.6-5.0 MMOL/L Chloride Level 105 98-107 MMOL/L Carbon Dioxide Level 28 21-32 MMOL/L Anion Gap 10 5-14 MMOL/L Blood Urea Nitrogen 27 H 7-18 MG/DL Creatinine 1.14 0.60-1.30 MG/DL Estimat Glomerular Filtration Rate 53 BUN/Creatinine Ratio 24 Glucose Level 193 H 70-105 MG/DL Calcium Level 8.1 L 8.5-10.1 MG/DL Corrected Calcium 8.6 8.5-10.1 MG/DL Magnesium Level 2.2 1.6-2.4 MG/DL Total Bilirubin 0.3 0.1-1.0 MG/DL Aspartate Amino Transf (AST/SGOT) 17 5-34 U/L Alanine Aminotransferase (ALT/SGPT) 22 0-55 U/L Alkaline Phosphatase 115 40-136 U/L Myoglobin 70.2 10.0-92.0 NG/ML Troponin I < 0.028 <0.028 NG/ML B-Type Natriuretic Peptide 1436.1 H <100.0 PG/ML Total Protein 6.4 6.4-8.2 GM/DL Albumin 3.4 3.2-4.5 GM/DL My Orders Orders - MAGDY ZIEGLER AD TRAFFICKER Cbc With Automated Diff (12/02/21 14:39) Magnesium (12/02/21 14:39) Chest 1 View, Ap/Pa Only (12/02/21 14:39) Ekg Tracing (12/02/21 14:39) Comprehensive Metabolic Panel (12/02/21 14:39) Myoglobin Serum (12/02/21 14:39) Protime With Inr (12/02/21 14:39) Partial Thromboplastin Time (12/02/21 14:39) O2 (12/02/21 14:39) Monitor-Rhythm Ecg Trace Only (12/02/21 14:39) Lipid Panel (12/03/21 06:00) Ed Iv/Invasive Line Start (12/02/21 14:39) Bnp Mcdonald (12/02/21 14:39) Troponin I Marlon (12/02/21 14:39) Arterial Blood Gas (12/02/21 14:40) Arterial Blood Draw - Obtain (12/02/21 ) Chest 1 View, Ap/Pa Only (12/02/21 16:23) Heart Healthy (12/02/21 Dinner) Furosemide Injection (Lasix Injection) (12/02/21 17:15) Ed Admission (Communication) (12/02/21 17:09) Medications Given in ED Current Medications Medications Dose Ordered Sig/Katrina Route Start Time Stop Time Status Last Admin Dose Admin Furosemide 40 mg ONCE ONCE IVP 12/02/21 17:15 12/02/21 17:16 DC 12/02/21 17:18 40 MG Vital Signs/I&O 12/02/21 14:26 Temp 36.9 Pulse 92 Resp 16 B/P (MAP) 134/59 (84) Pulse Ox 97 O2 Delivery Nasal Cannula O2 Flow Rate 4.00 Capillary Refill : Less Than 3 Seconds Blood Pressure Mean: 84 Departure Communication (Admissions) [id number] admit to Dr. Bailey and consult Dr. Quinones. NAME: RUDDY GARLAND [facility] REC#: [id number] PT STATUS: REG ER : 1955 PHYSICIAN: MAGDY ZIEGLER APRN ADMIT DATE: 12/02/21/ER Draft Date of Exam:12/02/21 CHEST 1 VIEW, AP/PA ONLY INDICATION: Central venous catheter assessment. AP view of chest is obtained. Since study of earlier in the day, there has been no change in cardiomegaly. Pulmonary vascularity is at the upper limits of normal. Right jugular central venous catheter is in place with tip projecting over the upper superior vena cava. There is no pneumothorax or significant pleural fluid. IMPRESSION: Continued cardiomegaly without evidence of complication after placement of right jugular catheter. Dictated on workstation # [id number] Dict: 12/02/21 1641 Trans: 12/02/21 1643 [id number] Interpreted by: RITA JO MD Electronically signed by: Impression Primary Impression: CHF exacerbation Disposition: ADMITTED INPATIENT Condition: Stable Admissions Decision to Admit Reason: Admit from ER (General) Decision to Admit/Date: Dec 02, 2021 Time/Decision to Admit Time: 17:31 Departure-Patient Inst. Referrals: FERN BAILEY DO (PCP/Family) Primary Care Physician MAGDY ZIEGLER APRN Dec 02, 2021 14:53
--- NOTE | 2021-12-02 15:12 | Diagnostic Imaging Report ---
INDICATION: Chest pain Single AP view of the chest is obtained with comparison made to study of 08/11/2021 FINDINGS: There is moderate cardiomegaly with associated pulmonary venous congestion. There is no significant overt edema. No pneumothorax is seen. There is no definite pleural fluid. There is a focal rounded density in the left suprahilar region at the level of the aortic knob. This does correspond to 1st sternocostal joint and could be related to bone spurring. IMPRESSION: Cardiomegaly and pulmonary venous congestion. Otherwise, there is a questionable nodular focus in the left suprahilar region. Follow-up PA and lateral views of the chest would be of use. Dictated by: Dictated on workstation # [id number]
[2021-12-02 15:45] LABS: ABG BASE EXCESS 5.3 MMOL/L (-2.5-2.5); ABG OXYGEN SATURATION 94 % (94-100); ABG PCO2 52 MMHG (35-45); ABG PH 7.38 (7.37-7.43); ABG PO2 65 MMHG (79-93); ABG TCO2 31.9 MMOL/L (21.0-31.0)
[2021-12-02 15:47] LABS: VENTILATOR NO
[2021-12-02 15:48] LABS: PATIENT TEMP 98
[2021-12-02 16:28] LABS: BASOPHILS % (AUTO) 0 % (0-10); EOSINOPHILS # (AUTO) 0.2 10^3/uL (0.0-0.3); EOSINOPHILS % (AUTO) 2 % (0-10); HEMATOCRIT 33 % (35-52); HEMOGLOBIN 10.2 g/dL (11.5-16.0); LYMPHOCYTES # (AUTO) 0.9 10^3/uL (1.0-4.0); LYMPHOCYTES % (AUTO) 8 % (12-44); MEAN CORPUSCULAR HEMOGLOBIN 33 pg (25-34); MEAN CORPUSCULAR HGB CONC 31 g/dL (32-36); MEAN CORPUSCULAR VOLUME 106 fL (80-99); MEAN PLATELET VOLUME 9.8 fL (9.0-12.2); MONOCYTES # (AUTO) 0.5 10^3/uL (0.0-1.0); MONOCYTES % (AUTO) 4 % (0-12); NEUTROPHILS # (AUTO) 9.2 10^3/uL (1.8-7.8); NEUTROPHILS % (AUTO) 86 % (42-75); PLATELET COUNT 138 10^3/uL (130-400); WHITE BLOOD COUNT 10.7 10^3/uL (4.3-11.0)
--- NOTE | 2021-12-02 16:44 | Diagnostic Imaging Report ---
INDICATION: Central venous catheter assessment. AP view of chest is obtained. Since study of earlier in the day, there has been no change in cardiomegaly. Pulmonary vascularity is at the upper limits of normal. Right jugular central venous catheter is in place with tip projecting over the upper superior vena cava. There is no pneumothorax or significant pleural fluid. IMPRESSION: Continued cardiomegaly without evidence of complication after placement of right jugular catheter. Dictated by: Dictated on workstation # [id number]
[2021-12-02 16:47] LABS: ALBUMIN 3.4 GM/DL (3.2-4.5)
[2021-12-02 16:48] LABS: POTASSIUM 4.7 MMOL/L (3.6-5.0)
[2021-12-02 16:49] LABS: CALCIUM 8.1 MG/DL (8.5-10.1)
[2021-12-02 16:50] LABS: TOTAL PROTEIN 6.4 GM/DL (6.4-8.2)
[2021-12-02 16:52] LABS: BILIRUBIN,TOTAL 0.3 MG/DL (0.1-1.0)
[2021-12-02 16:54] LABS: CREATININE SERUM 1.14 MG/DL (0.60-1.30)
[2021-12-02 16:56] LABS: MAGNESIUM 2.2 MG/DL (1.6-2.4)
[2021-12-02 17:01] LABS: INR 1.2 (0.8-1.4); PROTHROMBIN TIME PATIENT 15.9 SEC (12.2-14.7)
[2021-12-02] MEDS ORDERED: FUROSEMIDE 40 MG/4 ML INJ (LASIX) IVP ONE (17:15)
--- NOTE | 2021-12-02 18:04 | History & Physical ---
History of Present Illness Date Seen 12/02/21 Attending Physician Deya Arreola DO PCP Admitting Physician: Deya Arreola DO Attending Physician: Deya Arreola DO Referring Physician Date of Admission Dec 02, 2021 at 17:10 Home Medications & Allergies Home Medications Reviewed patient Home Medication Reconciliation performed by pharmacy medication reconciliations document management technician and/or nursing. Patients Allergies have been reviewed. Allergies Allergies Coded Allergies Penicillins (Verified Allergy, Unknown, 05/15/19) meperidine (Verified Allergy, Unknown, 09/06/19) morphine (Unverified Allergy, Unknown, 05/15/19) propoxyphene (Verified Allergy, Unknown, 05/15/19) topiramate (Verified Allergy, Unknown, 05/15/19) codeine (Verified Adverse Reaction, Unknown, UPSET STOMACH, 09/13/19) dapagliflozin (Verified Adverse Reaction, Unknown, yeast infection, 09/13/19) Past Debnavq-Wvwxmz-Lgcvbv Hx Patient Social History Smoking Status: Never a Smoker 2nd Hand Smoke Exposure: No Recent Hopitalizations: No Immunizations Up To Date Tetanus Booster (TDap): Unknown Date of Pneumonia Vaccine: Feb 05, 2017 Date of Influenza Vaccine: Dec 21, 2019 Seasonal Allergies Seasonal Allergies: No Past Medical History Surgeries: Appendectomy, Cardiac, Coronary Stent, Gallbladder, Orthopedic, Thyroidectomy, Vascular Surgery Currently Using CPAP: Yes Currently Using BIPAP: No Cardiac: Cardiomyopathy, Chronic Edema/Swelling, Coronary Artery Disease, High Cholesterol, Hypertension, Valvular Heart Disease Neurological: Neuropathy 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: No Sexually Transmitted Disease: No HIV/AIDS: No Menopausal Genitourinary: UTI-Chronic Gastrointestinal: Colitis, Gastroesophageal Reflux Musculoskeletal: Degenerate Disk Disease, Arthritis, Scoliosis, Chronic Back Pain Endocrine: Diabetes, Insulin dep, Hypothyroidsim Psychosocial: Anxiety, Depression History of Blood Disorders: Yes (ANEMIA) Adverse Reaction to Blood Anthony: No Family History Alzheimer's disease G8 SISTER Diabetes mellitus 19 FATHER Hypertension 19 FATHER 19 MOTHER Myocardial infarction 19 FATHER 19 MOTHER Neoplasm G8 SISTER No Pertinent Family Hx Noncontributory Physical Exam Physical Exam Vital Signs Vital Signs - First Documented 12/02/21 12/02/21 14:26 19:06 Temp 36.9 Pulse 92 Resp 16 B/P (MAP) 134/59 (84) Pulse Ox 97 O2 Delivery Nasal Cannula O2 Flow Rate 4.00 FiO2 36 Capillary Refill : Less Than 3 Seconds Height, Weight, BMI Height: 5'4.00" Weight: 246lbs. 6.0oz. 111.642684tq; 44.00 BMI Method:Stated Eyes: Bilateral Eye Normal Inspection, Bilateral Eye PERRL, Bilateral Eye EOMI Results Results/Procedures Labs Laboratory Tests 12/02/21 16:15 12/03/21 04:55 Patient resulted labs reviewed. DEYA ARREOLA DO Dec 02, 2021 18:04
[2021-12-02] MEDS: ENOXAPARIN 40 MG/0.4 ML (LOVENOX) SYR SC SCH (18:45)
[2021-12-02] MEDS ORDERED: BISACODYL 10 MG SUPP (DULCOLAX) PR PRN (18:45)
[2021-12-02] MEDS ORDERED: CALCIUM CARBONATE 500 MG (TUMS) TAB.CHEW PO PRN (18:45)
[2021-12-02] MEDS ORDERED: diphenhydrAMINE 25 MG TAB (BENADRYL) PO PRN (18:45)
[2021-12-02] MEDS ORDERED: MILK OF MAGNESIA 400 MG/5 ML 30 ML UDC PO PRN (18:45)
[2021-12-02] MEDS ORDERED: diphenhydrAMINE 50 MG/ML INJ (BENADRYL) IVP PRN (18:45)
[2021-12-02] MEDS ORDERED: ACETAMINOPHEN 325 MG TABLET PO PRN (18:45)
[2021-12-02] MEDS ORDERED: polyethylene glycoL POWDER 17 GM (MIRALAX) PACK PO PRN (18:45)
[2021-12-02] MEDS ORDERED: ONDANSETRON 4 MG/2 ML (SDV) Z0FRAN IV PRN (18:45)
[2021-12-02] MEDS ORDERED: LACTULOSE SYRUP 10GM/15ML (ENULOSE) 30ML UDC PO PRN (18:45)
[2021-12-02] MEDS ORDERED: ANTACID SUSP 30 ML UDC (MYLANTA) PO PRN (18:45)
[2021-12-02] MEDS ORDERED: ONDANSETRON 4 MG (ZOFRAN) ORAL DISSOLVE TAB PO PRN (18:45)
[2021-12-02] MEDS ORDERED: RT-BUDESONIDE NEBS 0.5 MG/2ML (PULMICORT) AMP IH SCH (21:00)
[2021-12-02] MEDS ORDERED: LOSARTAN 50 MG (COZAAR) TAB PO SCH (21:00)
[2021-12-02] MEDS: RT-ALBUTEROL/IPRATROPIUM 3 ML (DUONEB) VIAL INH SCH (22:59)
[2021-12-02] MEDS ORDERED: RT-ALBUTEROL HFA 8.5 GM INHALER IH SCH (23:00)
[2021-12-02] MEDS: SENNOSIDES 8.6 MG (SENOKOT) TAB PO SCH (23:07)
[2021-12-02] MEDS: busPIRone 5 MG (BUSPAR) TAB PO SCH (23:07)
[2021-12-02] MEDS: traZODone 100 MG (DESYREL) TAB PO SCH (23:07)
[2021-12-02] MEDS: MELATONIN 3 MG TABLET PO PRN (23:07)
[2021-12-02] MEDS: MONTELUKAST 10 MG (SINGULAIR) TAB PO SCH (23:08)
[2021-12-02] MEDS: DOCUSATE SODIUM 100 MG (COLACE) CAP PO SCH (23:08)
[2021-12-02] MEDS: inSUlin ASPART (NovoLOG) 1 UNIT/0.01 ML (CHARGE PER UNIT) SC SCH (23:08)
[2021-12-03] VITALS (8 sets, daily range): BP systolic 98–148; BP diastolic 56–83
[2021-12-03] MEDS: RT-ALBUTEROL/IPRATROPIUM 3 ML (DUONEB) VIAL INH SCH ×4 (02:39→21:20)
[2021-12-03 05:04] LABS: BASOPHILS # (AUTO) 0.1 10^3/uL (0.0-0.1); BASOPHILS % (AUTO) 1 % (0-10); EOSINOPHILS # (AUTO) 0.3 10^3/uL (0.0-0.3); EOSINOPHILS % (AUTO) 3 % (0-10); HEMATOCRIT 34 % (35-52); HEMOGLOBIN 10.6 g/dL (11.5-16.0); LYMPHOCYTES # (AUTO) 0.9 10^3/uL (1.0-4.0); LYMPHOCYTES % (AUTO) 9 % (12-44); MEAN CORPUSCULAR HEMOGLOBIN 33 pg (25-34); MEAN CORPUSCULAR HGB CONC 31 g/dL (32-36); MEAN CORPUSCULAR VOLUME 106 fL (80-99); MEAN PLATELET VOLUME 9.6 fL (9.0-12.2); MONOCYTES # (AUTO) 0.5 10^3/uL (0.0-1.0); MONOCYTES % (AUTO) 5 % (0-12); NEUTROPHILS # (AUTO) 8.1 10^3/uL (1.8-7.8); NEUTROPHILS % (AUTO) 82 % (42-75); PLATELET COUNT 154 10^3/uL (130-400); WHITE BLOOD COUNT 9.8 10^3/uL (4.3-11.0)
[2021-12-03 05:26] LABS: ALBUMIN 3.5 GM/DL (3.2-4.5); POTASSIUM 4.2 MMOL/L (3.6-5.0)
[2021-12-03 05:27] LABS: CALCIUM 8.7 MG/DL (8.5-10.1)
[2021-12-03 05:29] LABS: TOTAL PROTEIN 6.6 GM/DL (6.4-8.2)
[2021-12-03 05:30] LABS: BILIRUBIN,TOTAL 0.4 MG/DL (0.1-1.0)
[2021-12-03 05:32] LABS: CREATININE SERUM 1.22 MG/DL (0.60-1.30)
[2021-12-03] MEDS: inSUlin ASPART (NovoLOG) 1 UNIT/0.01 ML (CHARGE PER UNIT) SQ SCH ×4 (06:08→20:40)
[2021-12-03] MEDS: inSUlin ASPART (NovoLOG) 1 UNIT/0.01 ML (CHARGE PER UNIT) SC SCH ×4 (06:08→20:36)
[2021-12-03] MEDS: VENlafaxine XR 75 MG (EFFEXOR XR) CAP PO SCH (06:45)
[2021-12-03] MEDS: PANTOPRAZOLE 40 MG (PROTONIX) TAB PO SCH (06:45)
[2021-12-03] MEDS: FUROSEMIDE 40 MG/4 ML INJ (LASIX) IVP SCH ×2 (06:45→17:01)
[2021-12-03] MEDS: LEVOTHYROXINE 125 MCG (LEVOTHROID) TABLET PO SCH (06:45)
--- NOTE | 2021-12-03 08:20 | Occupational Therapy Eval ---
OT Evaluation-General/PLF Medical Diagnosis Admission Date Dec 02, 2021 at 17:10 Medical Diagnosis: CHF Onset Date: Dec 02, 2021 Therapy Diagnosis Therapy Diagnosis: reduced adl status Height/Weight Height (Feet): 5 Height (Inches): 4.00 Weight (Pounds): 246 Weight (Ounces): 6.0 Precautions Precautions/Isolations: Fall Prevention, Standard Precautions Referral Referral Reason: Evaluation/Treatment Medical History Pertinent Medical History: CAD, COPD, DM, GERD, HTN, Neuropathy Current History Pt presents from Dr. Cardenas office with c/o SOB and syncope. Per patient, she lives alone in a single story home. Her son lives right next door. She was indep with adls and some iadls. Her friends and son assists with transportation, groceries, and some meals. Pt uses a cane at baseline and is chronically on 4LNC. Reviewed History: Yes Social History Home: Single Level Current Living Status: Alone Steps Into Home: 3 ADL-Prior Level of Function SCALE: Activities may be completed with or without assistive devices. 5-Untiaxmqhx-kaqwpab completes the activity by him/herself with no assistance from a helper. 5-Set-up or Clean-up Assistance-helper sets up or cleans up; patient completes activity. [place] assists only prior to or following the activity. 4-Supervision or Touching Assistance-helper provides verbal cues and/or touching/steadying and/or contact guard assistance as patient completes activity. Assistance may be provided throughout the activity or intermittently. 3-Partial/Moderate Assistance-helper does LESS THAN HALF the effort. [place] l ifts, holds or supports trunk or limbs, but provides less than half the effort. 2-Substantial/Maximal Assistance-helper does MORE THAN HALF the effort. [place] lifts or holds trunk or limbs and provides more than half the effort. 1-Hxfssjsop-owpobz does ALL the effort. Patient does none of the effort to complete the activity. Or, the assistance of 2 or more helpers is required for t he patient to complete the activity. If activity was not attempted, code reason: 7-Patient Refused. 9-Not Applicable-not attempted and the patient did not perform the activity before the current illness, exacerbation or injury. 10-Not Attempted due to Environmental Limitations-(lack of equipment, weather restraints, etc.). 88-Not Attempted due to Medical Conditions or Safety Concerns. Self Care: Independent DME/Equipment: Bath Chair, Reachers, Sock Aid, Tub/Shower Drive Self: No OT Current Status Subjective Pt laying in bed upon arrival. She agrees to OT therapy eval. Appearance Pt left in recliner with all needs within reach. Mental Status/Objective Patient Orientation: Person, Place, Time, Situation Attachments: Bran Catheter, IV (pic line), Oxygen, Telemetry Current Hand Dominance: Right Upper Extremity ROM WFL Upper Extremity Strength Shoulder Strength: 4+/5 Pot Operator strength: fair-good ADL-Treatment Eating (QC): 6 Oral Hygiene (QC): 6 (per clinical judgement) On/Off Footwear (QC): 4 (with use of sock aide; Stood and bent over to reach sock on ground) SOB was noted throughout session. Pt shows fair sitting and standing balance. Pt ambulated ~50 ft with 4WW at SBA; assist with management of O2 tank. Pt able to doff socks by pulling them off with other foot. Pt stood and bent over to grab sock off of floor with CGA. She donned sock with sock aide and performed task at baseline with extra time to complete task. She reported not feeling like she was at her baseline. She would benefit from short term skilled OT treatments to increase endurance, balance, and strength to perform functional ADLs with independence in order to return home independently. Education OT Patient Education: Correct positioning, Energy conservation, Modified ADL techniques, Progress toward Goal/Update tx plan, Purpose of tx/functional activities, Reviewed precautions, Rehab process, Safety issues, Use of adapted equipment Teaching Recipient: Patient Teaching Methods: Demonstration, Discussion Response to Teaching: Verbalize Understanding, Return Demonstration OT Maintenance Foreman Goals Maintenance Foreman Goals Time Frame: Dec 10, 2021 Toileting Hygiene (QC): 6 Shower/Bathe Self (QC): 5 Upper Body Dressing (QC): 6 Lower Body Dressing (QC): 5 On/Off Footwear (QC): 5 Additional Goals: 1-Demonstrate ADL Tasks, 2-Verbalize Understanding, 3-Im proveStrength/Lola 1=Demonstrate adherence to instructed precautions during ADL tasks. 2=Patient will verbalize/demonstrate understanding of assistive devices/modifications for ADL. 3=Patient will improve strength/tolerance for activity to enable patient to perform ADL's. OT Education/Plan Problem List/Assessment Assessment: Decreased Activ Tolerance, Decreased Safety Aware, Decreased UE Strength, Impaired Coordination, Impaired Funct Balance, Impaired I ADL's, Impaired Self-Care Skills, Restricted Funct UE ROM Discharge Recommendations Plan/Recommendations: Continue POC Therapy Discharge Recommendati: Home & Family, Post Acute OT (Home health OT vs home pending progress ) Treatment Plan/Plan of Care Treatment,Training & Education: Yes Patient would benefit from OT for education, treatment and training to promote independence in ADL's, mobility, safety and/or upper extremity function for ADL's. Plan of Care: ADL Retraining, Functional Mobility, Group Exercise/Act as Ind, UE Funct Exercise/Act Treatment Duration: Dec 10, 2021 Frequency: 3 times per week (3-5x/week) Estimated Hrs Per Day: .25 hour per day Agreement: Yes Rehab Potential: Fair Time/GCodes Start Time: 07:53 Stop Time: 08:11 Total Time Billed (hr/min): 18 Billed Treatment Time 1 visit Angélica Driscoll OT Dec 03, 2021 08:20
[2021-12-03] MEDS: ASPIRIN E.C. 81 MG (ECOTRIN) TAB PO SCH (08:52)
[2021-12-03] MEDS: ASCORBIC ACID (VIT C) 500 MG TABLET PO SCH (08:52)
[2021-12-03] MEDS: VITAMIN D3 125 MCG (5,000 UNITS) CAPSULE PO SCH (08:52)
[2021-12-03] MEDS: busPIRone 5 MG (BUSPAR) TAB PO SCH ×3 (08:53→21:30)
[2021-12-03] MEDS: KCL 10 MEQ TAB (MICRO K) PO SCH (08:53)
[2021-12-03] MEDS: DOCUSATE SODIUM 100 MG (COLACE) CAP PO SCH ×2 (08:53→21:29)
[2021-12-03] MEDS: SILDENAFIL 20 MG (REVATIO) TAB PO SCH ×3 (08:53→21:30)
[2021-12-03] MEDS: ZINC SULFATE 220 MG CAPSULE PO SCH (08:53)
[2021-12-03] MEDS: SENNOSIDES 8.6 MG (SENOKOT) TAB PO SCH ×2 (08:53→21:29)
--- NOTE | 2021-12-03 08:54 | Physical Therapy Evaluation ---
PT Evaluation-General Medical Diagnosis Admission Date Dec 02, 2021 at 17:10 Medical Diagnosis: CHF Onset Date: Dec 02, 2021 Therapy Diagnosis Therapy Diagnosis: debility/weakness Height/Weight Height (Feet): 5 Height (Inches): 4.00 Weight (Pounds): 246 Weight (Ounces): 6.0 Precautions Precautions/Isolations: Fall Prevention, Standard Precautions Referral Physician: Maxwell Reason for Referral: Evaluation/Treatment Medical History Pertinent Medical History: CAD, COPD (4L continuous at home), DM, GERD, HTN, Neuropathy History of Falls (past yr): No Prior Surgery (last 100 days): No Current History EMS from Dr. carias secondary to dyspnea Reviewed History: Yes Social History Home: Single Level Current Living Status: Alone PT Steps Into Home: 3 Prior Prior Level of Function SCALE: Activities may be completed with or without assistive devices. 3-Wakntivpik-pbvndvm completes the activity by him/herself with no assistance from a helper. 5-Set-up or Clean-up Assistance-helper sets up or cleans up; patient completes activity. Waterflow assists only prior to or following the activity. 4-Supervision or Touching Assistance-helper provides verbal cues and/or touching/steadying and/or contact guard assistance as patient completes activity. Assistance may be provided throughout the activity or intermittently. 3-Partial/Moderate Assistance-helper does LESS THAN HALF the effort. Waterflow lifts, holds or supports trunk or limbs, but provides less than half the effort. 2-Substantial/Maximal Assistance-helper does MORE THAN HALF the effort. Waterflow lifts or holds trunk or limbs and provides more than half the effort. 2-Uzvsnnegc-nqetme does ALL the effort. Patient does none of the effort to complete the activity. Or, the assistance of 2 or more helpers is required for the patient to complete the activity. If activity was not attempted, code reason: 7-Patient Refused. 9-Not Applicable-not attempted and the patient did not perform the activity before the current illness, exacerbation or injury. 10-Not Attempted due to Environmental Limitations-(lack of equipment, weather restraints, etc.). 88-Not Attempted due to Medical Conditions or Safety Concerns. Bed Mobility: 6 Transfers (B,C,W/C): 6 Gait: 6 Stairs: 6 Indoor Mobility (Ambulation): Independent Stairs: Independent Prior Devices Use: Other-see list below Prior Device Use: cane PRN PT Evaluation-Current Subjective Patient agrees to PT. Objective Patient Orientation: Normal For Age Attachments: Oxygen, Bran Catheter ROM/Strength ROM Lower Extremities bilateral LE WFL Strength Lower Extremities 4-/5 grossly bilateral LE all planes Integumentary/Posture Bowel Incontinence: No Bladder Incontinence: Bran Cath Posture WFL Neuromuscular (Tone, Coordination, Reflexes) grossly intact Sensory Vision: Functional Hearing: Functional Hand Dominance: Right Transfers Lying to Sitting/Side of Bed(Q: 6 Sit to Stand (QC): 4 Chair/Wna-po-Mvjdc Xfer(QC): 4 Gait Mode of Locomotion: Walk Anticipated Mode of Locomotion: Walk Walk 10 feet (QC): 4 Walk 50 ft with 2 Turns(QC): 4 Walk 150 ft (QC): 4 Distance: 175' Gait Assistive Device: FWW Comments/Gait Description safe and functional with no deviation Balance Sitting Static: Normal Sitting Dynamic: Normal Standing Static: Normal Standing Dynamic: Normal Assessment/Needs Slight increase SOA with activity with SAO2 >90% on 4L O2 with activity. Patient will be seen short term by skilled PT to address functional mobility to ensure safe return to home. Rehab Potential: Fair PT Singeing Torch Operator Goals Long-Term Goals PT Singeing Torch Operator Goals Time Frame: Dec 14, 2021 Roll Left & Right (QC): 6 Sit to Lying (QC): 6 Lying-Sitting on Side/Bed(QC): 6 Sit to Stand (QC): 6 Chair/Tos-qk-Wwlho Xfer(QC): 6 Toilet Transfer (QC): 6 Walk 10 feet (QC): 6 Walk 50ft with 2 Turns (QC): 6 Walk 150 ft (QC): 6 PT Plan Problem List Problem List: Activity Tolerance, Functional Strength, Safety, Balance, Gait, Transfer Treatment/Plan Treatment Plan: Continue Plan of Care Treatment Plan: Education, Functional Activity Lola, Functional Strength, Gait, Safety, Therapeutic Exercise, Transfers Treatment Duration: Dec 14, 2021 Frequency: 6 times per week Estimated Hrs Per Day: .25 hour per day Patient and/or Family Agrees t: Yes Time/GCodes Time In: 755 Time Out: 807 Total Billed Treatment Time: 12 Total Billed Treatment 1 visit EVMod 12 min ARON GAMBLE PT Dec 03, 2021 08:54
--- NOTE | 2021-12-03 09:38 | Consultation-Cardiology ---
HPI-Cardiology Cardiology Consultation: Date of Consultation 12/03/21 Date of Admission 12/02/21 Attending Physician Deya Arreola DO Admitting Physician Admitting Physician: Deya Arreola DO Attending Physician: Deya Arreola DO Consulting Physician JEANMARIE GRIFFITH JR, MD HPI: Time Seen by a Provider: 09:34 Chief Complaint: REASON FOR CONSULTATION: Heart failure. I had the pleasure of seeing Rhea on the cardiac stepdown unit at [facility] in [place], [place] today. She normally follows with Dr. Gavin at [facility] in [place], [place]. she has a history of chronic heart failure with preserved ejection fraction, mitral stenosis (mild-moderate), pulmonary hypertension, asthma with chronic obstructive pulmonary disease, hypertension, chronic respiratory failure with hypoxemia on home oxygen during 24 hours a day and morbid obesity among several other issues. She had been doing well until last week when she started developing increasing dyspnea on exertion associated with some chest tightness. She also has paroxysmal nocturnal dyspnea, orthopnea and slightly worsening of her chronic lower extremity edema. Yesterday she went to see Dr. Arreola because of the worsening symptoms and when she was getting ready to leave the office, she had a syncopal spell. She denies any warning. Fortunately, she was sitting in a chair and did not fall down and hurt her self. She was subsequently brought to the emergency room for further evaluation. She was admitted with a diagnosis of heart failure and a cardiology consultation was requested. This morning her breathing and peripheral edema have improved. Her chest tightness has also improved. She denies palpitations or lightheadedness. She also asked me whether or not she could be seen in our office because it is starting to get difficult for her to make the drive to [place] to see her regular sap data analyst at the outside facility. Certain portions of this document may have been dictated utilizing voice recognition technology. Inherent to this technology, typographical and grammatical errors may exist. As much as I am diligent to identify and correct these mistakes, some errors may remain in the document. Review of Systems-Cardiology Review of Systems Other comments Review of 10 organ systems is as per the history of present illness, otherwise negative. XYO-Jzojkk-Uxzzyp Hx Patient Social History Employed/Student: retired Smoking Status: Never a Smoker 2nd Hand Smoke Exposure: No Have you traveled recently?: No Alcohol Use?: No Pt feels they are or have been: No Immunizations Up To Date Tetanus Booster (TDap): Unknown Date of Pneumonia Vaccine: Feb 05, 2017 Date of Influenza Vaccine: Dec 21, 2019 Past Medical History PMH As described under Assessment. Family Medical History Family Medical History: Both of her parents of heart disease at a young age. Family History: Alzheimer's disease G8 SISTER Diabetes mellitus 19 FATHER Hypertension 19 FATHER 19 MOTHER Myocardial infarction 19 FATHER 19 MOTHER Neoplasm G8 SISTER Allergies and Home Medications Allergies Coded Allergies: Penicillins (Verified Allergy, Unknown, 05/15/19) meperidine (Verified Allergy, Unknown, 09/06/19) morphine (Unverified Allergy, Unknown, 05/15/19) propoxyphene (Verified Allergy, Unknown, 05/15/19) topiramate (Verified Allergy, Unknown, 05/15/19) codeine (Verified Adverse Reaction, Unknown, UPSET STOMACH, 09/13/19) dapagliflozin (Verified Adverse Reaction, Unknown, yeast infection, 09/13/19) Patient Home Medication List Home Medication List Reviewed: Yes Acetaminophen (Tylenol Extra Strength) 500 Mg Tablet, 1,000 MG PO BID PRN for PAIN-MILD, (Reported) Entered as Reported by: MOODY FRANCO on 11/02/17 163 Last Action: Reviewed Ascorbate Calcium (Vitamin C) 500 Mg Tablet, 500 MG PO DAILY, (Reported) Entered as Reported by: TEJA PORTILLO on 08/12/21 1323 Last Action: Reviewed Aspirin (Aspirin EC) 81 Mg Tablet.dr, 81 MG PO DAILY, (Reported) Entered as Reported by: MOODY FRANCO on 11/02/17 1632 Last Action: Reviewed Betamethasone/Propylene Glyc (Betamethasone Dp Aug 0.05% Crm) 0.05 % Cream..g., 1 APPLIC TOP BID, (Reported) Entered as Reported by: TROY HAQUE on 12/03/21 1230 Last Action: Reviewed Budesonide (Budesonide) 0.5 Mg/2 Ml Ampul.neb, 0.5 MG IH BID, (Reported) Entered as Reported by: TEJA PORTILLO on 08/12/21 1503 Last Action: Reviewed Buspirone HCl (Buspirone HCl) 5 Mg Tablet, 5 MG PO TID, (Reported) Entered as Reported by: Linh Cat on 08/11/21 1009 Last Action: Reviewed Cholecalciferol (Vitamin D3) (Vitamin D3) 125 Mcg (5000 Unit) Tablet, 125 MCG PO DAILY, (Reported) Entered as Reported by: TEJA PORTILLO on 08/12/21 1324 Last Action: Reviewed Formoterol Fumarate (Perforomist) 20 Mcg/2 Ml Vial.neb, 20 MCG IH BID, (Reported) Entered as Reported by: TEJA PORTILLO on 08/12/21 1503 Last Action: Reviewed Furosemide (Furosemide) 40 Mg Tablet, 40 MG PO DAILY, (Reported) Entered as Reported by: Linh Cat on 08/11/21 1009 Last Action: Reviewed Gabapentin (Neurontin) 300 Mg Capsule, 300 MG PO QID, (Reported) Entered as Reported by: TEJA PORTILLO on 08/12/21 1320 Last Action: Reviewed Insulin Aspart (Insulin Aspart Flexpen) 100 Unit/Ml (3 Ml) Insuln.pen, 6 UNIT SQ ACHS, (Reported) Entered as Reported by: Linh Cat on 08/11/21 1009 Last Action: Reviewed Insulin Degludec (Tresiba Flextouch U-200) 200 Unit/1 Ml Insuln.pen, 20 UNITS SC DAILY, (Reported) Entered as Reported by: MOODY FRANCO on 11/02/17 163 Last Action: Reviewed Insulin Degludec (Tresiba Flextouch U-200) 200 Unit/Ml (3 Ml) Insuln.pen, 40 UNIT SQ HS, (Reported) Entered as Reported by: TEJA PORTILLO on 08/12/21 1319 Last Action: Reviewed Levothyroxine Sodium (Levothyroxine Sodium) 125 Mcg Tablet, 125 MCG PO DAILY, (Reported) Entered as Reported by: ALHAJI HORTA on 09/13/19 0833 Last Action: Reviewed Losartan Potassium (Losartan Potassium) 50 Mg Tablet, 50 MG PO DAILY, (Reported) Entered as Reported by: MOODY FRANCO on 11/02/17 163 Last Action: Reviewed Melatonin (Melatonin) 3 Mg Tablet, 6 MG PO HS, (Reported) Entered as Reported by: TROY HAQUE on 12/03/21 1230 Last Action: Reviewed Metoprolol Succinate (Metoprolol Succinate) 25 Mg Tab.er.24h, 25 MG PO DAILY, (Reported) Entered as Reported by: MOODY FRANCO on 11/02/17 1632 Last Action: Reviewed Montelukast Sodium (Montelukast Sodium) 10 Mg Tablet, 10 MG PO HS, (Reported) Entered as Reported by: TROY HAQUE on 06/20/201406 Last Action: Reviewed Pantoprazole Sodium (Pantoprazole Sodium) 40 Mg Tablet.dr, 40 MG PO DAILY, (Reported) Entered as Reported by: ALHAJI HORTA on 09/13/19 0833 Last Action: Reviewed Potassium Chloride (Potassium Chloride) 10 Meq Tab.er.prt, 10 MEQ PO DAILY, (Reported) Entered as Reported by: TROY HAQUE on 06/20/201406 Last Action: Reviewed Promethazine HCl (Promethazine Tablet) 25 Mg Tablet, 25 MG PO Q6H PRN for NAUSEA/VOMITING-2ND LINE, (Reported) Entered as Reported by: TROY HAQUE on 12/03/21 1230 Last Action: Reviewed Revefenacin (Yupelri) 175 Mcg/3 Ml Vial.neb, 175 MCG IH 1200, (Reported) Entered as Reported by: TEJA PORTILLO on 08/12/21 1504 Last Action: Reviewed Sildenafil Citrate (Sildenafil) 20 Mg Tablet, 20 MG PO TID, (Reported) Entered as Reported by: Linh Cat on 08/11/21 1009 Last Action: Reviewed Simvastatin (Simvastatin) 10 Mg Tablet, 10 MG PO HS, (Reported) Entered as Reported by: Linh Cat on 08/11/21 1009 Last Action: Reviewed Trazodone HCl (Trazodone HCl) 100 Mg Tablet, 100 MG PO HS, (Reported) Entered as Reported by: TROY HAQUE on 06/20/20 140 Last Action: Reviewed Venlafaxine HCl (Venlafaxine HCl ER) 150 Mg Cap.er.24h, 150 MG PO DAILY, (Reported) Entered as Reported by: TEJA PORTILLO on 08/12/21 1217 Last Action: Reviewed Zinc Amino Acid Chelate (Zinc) 50 Mg Tablet, 50 MG PO DAILY, (Reported) Entered as Reported by: TEJA PORTILLO on 08/12/21 1323 Last Action: Reviewed Discontinued Medications Diclofenac Sodium (Voltaren Arthritis Pain) 1 % Gel..gram., 1 APPLIC TP TID PRN for PAIN-SEE DOSE INSTRUCTIONS, (Reported) Discontinued Reason: No Longer Taking Entered as Reported by: TEJA PORTILLO on 08/12/21 1322 Last Action: Discontinued Melatonin/Pyridoxine HCl (B6) (Melatonin 3 mg Tablet) 3 Mg-10 Mg Tablet, 1 EACH PO HS, (Reported) Discontinued Reason: Duplicate Order Entered as Reported by: Linh Cta on 08/11/21 1009 Last Action: Discontinued Exam Vital Signs Vital Signs Date Time Temp Pulse Resp B/P (MAP) Pulse Ox O2 Delivery O2 Flow Rate FiO2 12/03/21 12:35 91 12/03/21 11:20 36.4 18 133/69 (90) 95 12/03/21 10:13 Nasal Cannula 3.00 12/02/21 19:06 36 Physical Exam General: Alert. No acute distress. Well nourished and appears stated age. She is morbidly obese. She is wearing oxygen by nasal cannula. Eye: Extraocular movements are intact. Conjunctivae are clear. There are no xanthelasma. HENT: Normocephalic. Atraumatic. Carotid pulsations 2/2 without bruits. Neck: Jugular venous pressure does not appear elevated. No thyromegaly appreciated. Respiratory: Lungs have bibasilar crackles. Respirations are non-labored. Breath sounds are equal. Symmetrical chest wall expansion. Cardiovascular: Normal rate. Regular rhythm. Distant S1/S2. No murmur. No gallop. Point of maximal impulse is not appear displaced. Good pulses equal in all extremities. 1+ bilateral pretibial edema with some areas of slight erythema but no chronic venous stasis changes. Gastrointestinal: Soft. Normal bowel sounds. Skin: Skin turgor is normal. There is no pallor. Musculoskeletal: No kyphosis or scoliosis appreciated. Neurologic: Alert and oriented to person, place, time. Cranial nerves 3-12 appear grossly intact. The patient has good motor tone strength in the upper and lower extremities bilaterally. Psychiatric: Cooperative. Appropriate mood & affect. Labs Laboratory Tests Test 12/02/21 15:30 12/02/21 16:15 12/02/21 22:22 12/03/21 04:55 Range/Units Blood Gas Puncture Site R RADIAL Blood Gas Patient Temperature 98 Arterial Blood pH 7.38 7.37-7.43 Arterial Blood Partial Pressure CO2 52 H 35-45 MMHG Arterial Blood Partial Pressure O2 65 L 79-93 MMHG Arterial Blood HCO3 30 H 23-27 MMOL/L Arterial Blood Total CO2 31.9 H 21.0-31.0 MMOL/L Arterial Blood Oxygen Saturation 94 94-100 % Arterial Blood Base Excess 5.3 H -2.5-2.5 MMOL/L Derian Test NA Blood Gas Ventilator Setting NO Blood Gas Inspired Oxygen NA White Blood Count 10.7 9.8 4.3-11.0 10^3/uL Red Blood Count 3.11 L 3.23 L 3.80-5.11 10^6/uL Hemoglobin 10.2 L 10.6 L 11.5-16.0 g/dL Hematocrit 33 L 34 L 35-52 % Mean Corpuscular Volume 106 H 106 H 80-99 fL Mean Corpuscular Hemoglobin 33 33 25-34 pg Mean Corpuscular Hemoglobin Concent 31 L 31 L 32-36 g/dL Red Cell Distribution Width 13.0 13.0 10.0-14.5 % Platelet Count 138 154 130-400 10^3/uL Mean Platelet Volume 9.8 9.6 9.0-12.2 fL Immature Granulocyte % (Auto) 0 0 % Neutrophils (%) (Auto) 86 H 82 H 42-75 % Lymphocytes (%) (Auto) 8 L 9 L 12-44 % Monocytes (%) (Auto) 4 5 0-12 % Eosinophils (%) (Auto) 2 3 0-10 % Basophils (%) (Auto) 0 1 0-10 % Neutrophils # (Auto) 9.2 H 8.1 H 1.8-7.8 10^3/uL Lymphocytes # (Auto) 0.9 L 0.9 L 1.0-4.0 10^3/uL Monocytes # (Auto) 0.5 0.5 0.0-1.0 10^3/uL Eosinophils # (Auto) 0.2 0.3 0.0-0.3 10^3/uL Basophils # (Auto) 0.0 0.1 0.0-0.1 10^3/uL Immature Granulocyte # (Auto) 0.0 0.0 0.0-0.1 10^3/uL Prothrombin Time 15.9 H 12.2-14.7 SEC INR Comment 1.2 0.8-1.4 Activated Partial Thromboplast Time 31 24-35 SEC Sodium Level 143 145 135-145 MMOL/L Potassium Level 4.7 4.2 3.6-5.0 MMOL/L Chloride Level 105 102 98-107 MMOL/L Carbon Dioxide Level 28 30 21-32 MMOL/L Anion Gap 10 13 5-14 MMOL/L Blood Urea Nitrogen 27 H 27 H 7-18 MG/DL Creatinine 1.14 1.22 0.60-1.30 MG/DL Estimat Glomerular Filtration Rate 53 49 BUN/Creatinine Ratio 24 22 Glucose Level 193 H 137 H 70-105 MG/DL Calcium Level 8.1 L 8.7 8.5-10.1 MG/DL Corrected Calcium 8.6 9.1 8.5-10.1 MG/DL Magnesium Level 2.2 1.6-2.4 MG/DL Total Bilirubin 0.3 0.4 0.1-1.0 MG/DL Aspartate Amino Transf (AST/SGOT) 17 15 5-34 U/L Alanine Aminotransferase (ALT/SGPT) 22 20 0-55 U/L Alkaline Phosphatase 115 119 40-136 U/L Myoglobin 70.2 10.0-92.0 NG/ML Troponin I < 0.028 <0.028 NG/ML B-Type Natriuretic Peptide 1436.1 H <100.0 PG/ML Total Protein 6.4 6.6 6.4-8.2 GM/DL Albumin 3.4 3.5 3.2-4.5 GM/DL Glucometer 193 H 70-110 MG/DL Triglycerides Level 91 <150 MG/DL Cholesterol Level 111 < 200 MG/DL LDL Cholesterol Direct 64 1-129 MG/DL VLDL Cholesterol 18 5-40 MG/DL HDL Cholesterol 31 L 40-60 MG/DL Test 12/03/21 10:40 Range/Units Glucometer 229 H 70-110 MG/DL ECG Impression ECG Comment Electrocardiogram from the emergency room on 12/02/2021 shows sinus rhythm with low voltage in the precordial leads, nonspecific intraventricular conduction delay and diffuse, nonspecific T wave changes. Diagnosis/Problems Diagnosis/Problems (1) Acute on chronic heart failure with preserved ejection fraction (HFpEF) Status: Acute Assessment & Plan: She just had an echocardiogram last week that showed a normal ejection fraction. She also has normal right ventricular function. She does have some valvular heart disease but nothing severe. She now appears to have about class III heart failure. I concur with intravenous diuretic. (2) Pulmonary hypertension Status: Chronic Assessment & Plan: This is most likely related to her chronic heart failure and perhaps some degree of underlying pulmonary disease as well as sleep apnea. She wears oxygen /. She has also been taking sildenafil. (3) Mitral stenosis Status: Chronic Assessment & Plan: Her echocardiogram showed mild to moderate mitral stenosis. I would not expect this to be causing symptoms but will need to be followed longitudinally. (4) Primary hypertension Status: Chronic Assessment & Plan: Continue outpatient antihypertensive medication. (5) Mixed hyperlipidemia Status: Chronic Assessment & Plan: Her LDL level is well controlled on the current dose of atorvastatin which has been continued. (6) Acute on chronic respiratory failure with hypoxemia Status: Acute Assessment & Plan: Most likely due to heart failure as well as some degree of pulmonary disease and her morbid obesity with perhaps some restrictive lung disease. (7) Stage 3a chronic kidney disease Status: Chronic Assessment & Plan: We will need to watch her renal function closely with the intravenous diuretic. (8) Type 2 diabetes mellitus with complication Status: Chronic Assessment & Plan: This is being managed by the hospitalist. (9) Morbid obesity Status: Chronic Assessment & Plan: She needs to work on weight loss. I will order a nutrition consult. JEANMARIE GRIFFITH JR, MD Dec 03, 2021 09:38
--- NOTE | 2021-12-03 09:56 | History & Physical ---
ALDOJF 12/03/21 0956: History of Present Illness History of Present Illness Reason for visit/HPI acute respiratory failure and possible syncope due to heart failure exacerbation Date of Admission Dec 02, 2021 at 17:10 Date Seen by a Provider: Dec 03, 2021 Time Seen by a Provider: 09:00 I consulted on this patient on 12/03/21 09:50 Attending Physician Deya Bailey DO Admitting Physician Admitting Physician: Deya Bailey DO Attending Physician: Deya Bailey DO Consult Allergies and Home Medications Allergies Coded Allergies: Penicillins (Verified Allergy, Unknown, 05/15/19) meperidine (Verified Allergy, Unknown, 09/06/19) morphine (Unverified Allergy, Unknown, 05/15/19) propoxyphene (Verified Allergy, Unknown, 05/15/19) topiramate (Verified Allergy, Unknown, 05/15/19) codeine (Verified Adverse Reaction, Unknown, UPSET STOMACH, 09/13/19) dapagliflozin (Verified Adverse Reaction, Unknown, yeast infection, 09/13/19) Patient Home Medication List Home Medication List Reviewed: Yes Acetaminophen (Tylenol Extra Strength) 500 Mg Tablet, 1,000 MG PO BID PRN for PAIN-MILD, (Reported) Entered as Reported by: MOODY FRANCO on 11/02/17 163 Last Action: Reviewed Ascorbate Calcium (Vitamin C) 500 Mg Tablet, 500 MG PO DAILY, (Reported) Entered as Reported by: TEJA PORTILLO on 08/12/21 1323 Last Action: Reviewed Aspirin (Aspirin EC) 81 Mg Tablet.dr, 81 MG PO DAILY, (Reported) Entered as Reported by: MOODY FRANCO on 11/02/17 1632 Last Action: Reviewed Betamethasone/Propylene Glyc (Betamethasone Dp Aug 0.05% Crm) 0.05 % Cream..g., 1 APPLIC TOP BID, (Reported) Entered as Reported by: TROY HAQUE on 12/03/21 1230 Last Action: Reviewed Budesonide (Budesonide) 0.5 Mg/2 Ml Ampul.neb, 0.5 MG IH BID, (Reported) Entered as Reported by: TEJA PORTILLO on 08/12/21 1503 Last Action: Reviewed Buspirone HCl (Buspirone HCl) 5 Mg Tablet, 5 MG PO TID, (Reported) Entered as Reported by: Linh Cat on 08/11/21 1009 Last Action: Reviewed Cholecalciferol (Vitamin D3) (Vitamin D3) 125 Mcg (5000 Unit) Tablet, 125 MCG PO DAILY, (Reported) Entered as Reported by: TEJA PORTILLO on 08/12/21 1324 Last Action: Reviewed Formoterol Fumarate (Perforomist) 20 Mcg/2 Ml Vial.neb, 20 MCG IH BID, (Re ported) Entered as Reported by: TEJA PORTILLO on 08/12/21 1503 Last Action: Reviewed Furosemide (Furosemide) 40 Mg Tablet, 40 MG PO DAILY, (Reported) Entered as Reported by: Linh Cat on 08/11/21 100 Last Action: Reviewed Gabapentin (Neurontin) 300 Mg Capsule, 300 MG PO QID, (Reported) Entered as Reported by: TEJA PORTILLO on 08/12/21 1320 Last Action: Reviewed Insulin Aspart (Insulin Aspart Flexpen) 100 Unit/Ml (3 Ml) Insuln.pen, 6 UNIT SQ ACHS, (Reported) Entered as Reported by: Linh Cat on 08/11/21 100 Last Action: Reviewed Insulin Degludec (Tresiba Flextouch U-200) 200 Unit/1 Ml Insuln.pen, 20 UNITS SC DAILY, (Reported) Entered as Reported by: MOODY FRANCO on 11/02/17 1632 Last Action: Reviewed Insulin Degludec (Tresiba Flextouch U-200) 200 Unit/Ml (3 Ml) Insuln.pen, 40 UNIT SQ HS, (Reported) Entered as Reported by: TEJA PORTILLO on 08/12/21 1319 Last Action: Reviewed Levothyroxine Sodium (Levothyroxine Sodium) 125 Mcg Tablet, 125 MCG PO DAILY, (Reported) Entered as Reported by: ALHAJI HORTA on 09/13/19 0833 Last Action: Reviewed Losartan Potassium (Losartan Potassium) 50 Mg Tablet, 50 MG PO DAILY, (Reported) Entered as Reported by: MOODY FRANCO on 11/02/17 163 Last Action: Reviewed Melatonin (Melatonin) 3 Mg Tablet, 6 MG PO HS, (Reported) Entered as Reported by: TROY HAQUE on 12/03/21 1230 Last Action: Reviewed Metoprolol Succinate (Metoprolol Succinate) 25 Mg Tab.er.24h, 25 MG PO DAILY, (Reported) Entered as Reported by: MOODY FRANCO on 11/02/17 1632 Last Action: Reviewed Montelukast Sodium (Montelukast Sodium) 10 Mg Tablet, 10 MG PO HS, (Reported) Entered as Reported by: TROY HAQUE on 06/20/20 140 Last Action: Reviewed Pantoprazole Sodium (Pantoprazole Sodium) 40 Mg Tablet.dr, 40 MG PO DAILY, (Reported) Entered as Reported by: ALHAJI HORTA on 09/13/19 0833 Last Action: Reviewed Potassium Chloride (Potassium Chloride) 10 Meq Tab.er.prt, 10 MEQ PO DAILY, (Reported) Entered as Reported by: TROY HAQUE on 06/20/201406 Last Action: Reviewed Promethazine HCl (Promethazine Tablet) 25 Mg Tablet, 25 MG PO Q6H PRN for NAUSE A/VOMITING-2ND LINE, (Reported) Entered as Reported by: TROY HAQUE on 12/03/21 1230 Last Action: Reviewed Revefenacin (Yupelri) 175 Mcg/3 Ml Vial.neb, 175 MCG IH 1200, (Reported) Entered as Reported by: TEJA PORTILLO on 08/12/21 1504 Last Action: Reviewed Sildenafil Citrate (Sildenafil) 20 Mg Tablet, 20 MG PO TID, (Reported) Entered as Reported by: Linh Cat on 08/11/21 1009 Last Action: Reviewed Simvastatin (Simvastatin) 10 Mg Tablet, 10 MG PO HS, (Reported) Entered as Reported by: Linh Cat on 08/11/21 1009 Last Action: Reviewed Trazodone HCl (Trazodone HCl) 100 Mg Tablet, 100 MG PO HS, (Reported) Entered as Reported by: TROY HAQUE on 06/20/20 140 Last Action: Reviewed Venlafaxine HCl (Venlafaxine HCl ER) 150 Mg Cap.er.24h, 150 MG PO DAILY, (Reported) Entered as Reported by: TEJA PORTILLO on 08/12/21 1217 Last Action: Reviewed Zinc Amino Acid Chelate (Zinc) 50 Mg Tablet, 50 MG PO DAILY, (Reported) Entered as Reported by: TEJA PORTILLO on 08/12/21 1323 Last Action: Reviewed Discontinued Medications Diclofenac Sodium (Voltaren Arthritis Pain) 1 % Gel..gram., 1 APPLIC TP TID PRN for PAIN-SEE DOSE INSTRUCTIONS, (Reported) Discontinued Reason: No Longer Taking Entered as Reported by: TEJA PORTILLO on 08/12/21 1322 Last Action: Discontinued Melatonin/Pyridoxine HCl (B6) (Melatonin 3 mg Tablet) 3 Mg-10 Mg Tablet, 1 EACH PO HS, (Reported) Discontinued Reason: Duplicate Order Entered as Reported by: Linh Cat on 08/11/21 1009 Last Action: Discontinued Past [id number] Hx Patient Social History Employed/Student: retired Tobacco Use?: No Smoking Status: Never a Smoker Smokeless Tobacco Frequency: Never a User Use of E-Cig and/or Vaping dev: No Substance use?: No Alcohol Use?: No Pt feels they are or have been: No Immunizations Up To Date Date of Influenza Vaccine: Dec 21, 2019 First/Initial COVID19 Vaccinat: April COVID19 Vaccination Trey: MAY 08, 2020 Tetanus Booster (TDap): Less Than 5 Years Hepatitis A: Yes Hepatitis B: Yes Date of Pneumonia Vaccine: Feb 05, 2017 Seasonal Allergies Seasonal Allergies: No Current Status Advance Directives: Yes Advance Directive Location: Scanned into EMR Communicates: Verbally Primary Language: Burmese Preferred Spoken Language: Burmese Sensory deficits: Vision impairment Additional sensory deficits: One cataract removed, one still in Implanted or Applied Medical D: Orthopedic hardware Past Medical History Surgeries: Appendectomy, Cardiac, Coronary Stent, Gallbladder, Orthopedic, Thyroidectomy, Vascular Surgery Asthma, Pneumonia, Sleep Apnea, COPD Currently Using CPAP: Yes Currently Using BIPAP: No Cardiomyopathy, Chronic Edema/Swelling, Coronary Artery Disease, High Cholesterol, Hypertension, Valvular Heart Disease Neuropathy 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 History: Menopausal Sexually Transmitted Disease: No HIV/AIDS: No UTI-Chronic Colitis, Gastroesophageal Reflux Degenerate Disk Disease, Arthritis, Scoliosis, Chronic Back Pain Diabetes, Insulin dep, Hypothyroidsim Anxiety, Depression Blood Disorders: Yes (ANEMIA) Adverse Reaction/Blood Tranf: No Hypertension Hyperlipidemia Type 2 diabetes mellitus Coronary artery disease COPD Chronic respiratory failure with hypoxia Heart failure with preserved ejection fraction Morbid obesity Family Medical History Alzheimer's disease G8 SISTER Diabetes mellitus 19 FATHER Hypertension 19 FATHER 19 MOTHER Myocardial infarction 19 FATHER 19 MOTHER Neoplasm G8 SISTER No Pertinent Family Hx Noncontributory Review of Systems Constitutional: no symptoms reported EENTM: other (left sided neck pain) Respiratory: short of breath (improving) Cardiovascular: no symptoms reported Gastrointestinal: no symptoms reported Genitourinary: no symptoms reported : No Musculoskeletal: no symptoms reported Skin: rash (on left lower leg) Psychiatric/Neurological: No Symptoms Reported All Other Systems Reviewed Negative Unless Noted: Yes Physical Exam Vital Signs Vital Signs - First Documented 12/02/21 12/02/21 14:26 19:06 Temp 36.9 Pulse 92 Resp 16 B/P (MAP) 134/59 (84) Pulse Ox 97 O2 Delivery Nasal Cannula O2 Flow Rate 4.00 FiO2 36 Capillary Refill : Less Than 3 Seconds Height, Weight, BMI Height: 5'4.00" Weight: 246lbs. 6.0oz. [id number]; 40.79 BMI Method:Stated General Appearance: No Apparent Distress, Obese Eyes: Bilateral Eye Normal Inspection, Bilateral Eye EOMI HEENT: Normal ENT Inspection Neck: Other (right IJ catheter) Respiratory: No Accessory Muscle Use, No Respiratory Distress, Crackles (minimal crackles bilateral lung bases) Cardiovascular: Regular Rate, Rhythm, No Gallop, No JVD, No Murmur, Normal Peripheral Pulses Gastrointestinal: Normal Bowel Sounds, No Organomegaly, No Pulsatile Mass, Non Tender, Soft Extremity: Non Tender, Pedal Edema, Swelling (1+ pitting edema bilateral lower legs), Other (decreased erythema on the medial aspect of the left lower leg) Neurologic/Psychiatric: Alert, Oriented x3, No Motor/Sensory Deficits, Normal Mood/Affect Skin: Normal Color, Warm/Dry Assessment/Plan Assessment and Plan Ms. Rhea Taveras is a 65 y/o F with past medical history of HFpEF, pulmonary hypertension, CAD s/p JACK, T2DM, chronic anemia, COPD, anxiety, obesity, HTN, and HLD who presented with shortness of breath upon exertion and found to be in a heart failure exacerbation with acute respiratory failure. Problems: (1) Acute on chronic heart failure with preserved ejection fraction (HFpEF) Status: Acute Assessment & Plan: Patient presents with a heart failure exacerbation, BNP 1436.1, Trop neg, 2+ pitting edema on presentation, Wt of ~260 lbs, dry weight of 236-240. Patient on Lasix 40mg PO BID at home, on admission, started on IV Lasix with good diuresis thus far. - Cont Lasix 40 mg IV BID - Cont Losartan 50mg daily - Cont Metoprolol succinate 25mg daily - Strict I/Os - Daily standing weights - 1.5L liquid restriction. (2) Acute on chronic respiratory failure with hypoxemia Status: Acute Assessment & Plan: Patient presented with acute respiratory failure from Dr. Bailey's clinic. At clinic, her oxygen saturation was in the low 80s upon exertion and while on her home oxygen of 4L. Patient was volume overloaded upon admission, weight of 260, dry weight of 236-240. Likely thought to be due to a heart failure exacerbation. Patient on Lasix 40mg QAM and then will sometimes take an additional 40mg in PM. - Cont Lasix 40mg IV BID. - Standing weights daily - Strict I/Os - Rec 1.5L volume restriction. (3) Stage 3a chronic kidney disease Status: Chronic Assessment & Plan: Baseline Creatinine of ~1.0. On admission, BUN 27, Cr of 1.14 -> 1.22. Suspect Cardiorenal sydrome given heart failure exacerbation. - Continue to monitor kidney functioning. - Cont Losartan 50mg daily - Cont Lasix IV 40mg BID (4) Pulmonary hypertension Status: Chronic Assessment & Plan: ECHO last in 05/2021 with LVEF 60-65%, mild mitral valve stenosis, and severe pulmonary hypertension with estimated PA pressure of 60 mmHg. Thought to be related to valvular disease, heart failure, and COPD. - Cont Sildenafil 20mg TID. - Cont to follow with Cardiology. (5) Mitral stenosis Status: Chronic Assessment & Plan: Last ECHO in 05/2021 which showed mild mitral valve stenosis. 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 (6) Primary hypertension Status: Chronic Assessment & Plan: Patient is slightly hypertensive today at 148/76. - Cont Losartan 50mg daily - Con Metoprolol succinate 25mg daily (7) Mixed hyperlipidemia Status: Chronic Assessment & Plan: Currently well controlled. Chol: 111, Tri: 91, LDL: 64, HDL: 31 - Cont Atorvastatin 5mg QHS (8) Type 2 diabetes mellitus with complication Status: Chronic Assessment & Plan: Patient with well controlled blood sugars. - Cont Insulin Determir 40U QHS - Cont Insulin Aspart 6U TID with meals (9) Morbid obesity Status: Chronic Assessment & Plan: BMI 40.8 kg/m2. Weight on admission ~260 lbs. Dry weight 236-240 per patient. - Cont to monitor and diruese (10) Chronic anemia Status: Chronic Assessment & Plan: Hgb of 10.6, MCV 106. - Rec checking B12 and folate (11) Anxiety Status: Chronic Assessment & Plan: Cont Venlafaxine 150mg daily, Buspirone 5mg TID, Diphenhydramine 25mg, Alprazolam 0.5mg q4 prn (12) Left leg pain Status: Acute Assessment & Plan: Erythema on medial aspect of left lower leg, which has improved since presentation. Likely related to venous stasis vs cellulitis. Patient is afebrile, no leukocytosis, improving pain. - CTM as diuresis improves. DEYA BAILEY DO 12/04/21 0514: History of Present Illness History of Present Illness Reason for visit/HPI CC: Acute hypoxic and hypercapneic respiratory failure with volume overload HPI: This is a 65yoWF clinic patient of mine who was in process of leaving my clinic after an urgent visit due to dyspnea and on her way to admit to hospital when she had an episode of dyspnea and O2 sat of 70%. EMS was called and I updated Dr Potts who prepared for her arrival. Patient required central line placed by Elie Kim in ER due to poor vascular access.IV Lasix has improved her status today and park catheter still in place draining large amounts of urine. Weight had increased by 30#. Dr Quinones consulted. Patient appears to be close to hospice enrollment. Allergies and Home Medications Allergies Coded Allergies: Penicillins (Verified Allergy, Unknown, 05/15/19) meperidine (Verified Allergy, Unknown, 09/06/19) morphine (Unverified Allergy, Unknown, 05/15/19) propoxyphene (Verified Allergy, Unknown, 05/15/19) topiramate (Verified Allergy, Unknown, 05/15/19) codeine (Verified Adverse Reaction, Unknown, UPSET STOMACH, 09/13/19) dapagliflozin (Verified Adverse Reaction, Unknown, yeast infection, 09/13/19) Patient Home Medication List Acetaminophen (Tylenol Extra Strength) 500 Mg Tablet, 1,000 MG PO BID PRN for PAIN-MILD, (Reported) Entered as Reported by: MOODY FRANCO on 11/02/17 1632 Last Action: Reviewed Ascorbate Calcium (Vitamin C) 500 Mg Tablet, 500 MG PO DAILY, (Reported) Entered as Reported by: TEJA PORTILLO on 08/12/21 1323 Last Action: Reviewed Aspirin (Aspirin EC) 81 Mg Tablet.dr, 81 MG PO DAILY, (Reported) Entered as Reported by: MOODY FRANCO on 11/02/17 1632 Last Action: Reviewed Betamethasone/Propylene Glyc (Betamethasone Dp Aug 0.05% Crm) 0.05 % Cream..g., 1 APPLIC TOP BID, (Reported) Entered as Reported by: TROY HAQUE on 12/03/21 1230 Last Action: Reviewed Budesonide (Budesonide) 0.5 Mg/2 Ml Ampul.neb, 0.5 MG IH BID, (Reported) Entered as Reported by: TEJA PORTILLO on 08/12/21 1503 Last Action: Reviewed Buspirone HCl (Buspirone HCl) 5 Mg Tablet, 5 MG PO TID, (Reported) Entered as Reported by: Linh Cat on 08/11/21 100 Last Action: Reviewed Cholecalciferol (Vitamin D3) (Vitamin D3) 125 Mcg (5000 Unit) Tablet, 125 MCG PO DAILY, (Reported) Entered as Reported by: TEJA PORTILLO on 08/12/21 1324 Last Action: Reviewed Formoterol Fumarate (Perforomist) 20 Mcg/2 Ml Vial.neb, 20 MCG IH BID, (Reported) Entered as Reported by: TEJA PORTILLO on 08/12/21 1503 Last Action: Reviewed Furosemide (Furosemide) 40 Mg Tablet, 40 MG PO DAILY, (Reported) Entered as Reported by: Linh Cat on 08/11/21 100 Last Action: Reviewed Gabapentin (Neurontin) 300 Mg Capsule, 300 MG PO QID, (Reported) Entered as Reported by: TEJA PORTILLO on 08/12/21 1320 Last Action: Reviewed Insulin Aspart (Insulin Aspart Flexpen) 100 Unit/Ml (3 Ml) Insuln.pen, 6 UNIT SQ ACHS, (Reported) Entered as Reported by: Linh Cat on 08/11/21 1009 Last Action: Reviewed Insulin Degludec (Tresiba Flextouch U-200) 200 Unit/1 Ml Insuln.pen, 20 UNITS SC DAILY, (Reported) Entered as Reported by: MOODY FRANCO on 11/02/17 1632 Last Action: Reviewed Insulin Degludec (Tresiba Flextouch U-200) 200 Unit/Ml (3 Ml) Insuln.pen, 40 UNIT SQ HS, (Reported) Entered as Reported by: TEJA PORTILLO on 08/12/21 1319 Last Action: Reviewed Levothyroxine Sodium (Levothyroxine Sodium) 125 Mcg Tablet, 125 MCG PO DAILY, (Reported) Entered as Reported by: ALHAJI HORTA on 09/13/19 0833 Last Action: Reviewed Losartan Potassium (Losartan Potassium) 50 Mg Tablet, 50 MG PO DAILY, (Reported) Entered as Reported by: MOODY FRANCO on 11/02/17 163 Last Action: Reviewed Melatonin (Melatonin) 3 Mg Tablet, 6 MG PO HS, (Reported) Entered as Reported by: TROY HAQUE on 12/03/21 1230 Last Action: Reviewed Metoprolol Succinate (Metoprolol Succinate) 25 Mg Tab.er.24h, 25 MG PO DAILY, (Reported) Entered as Reported by: MOODY FRANCO on 11/02/17 163 Last Action: Reviewed Montelukast Sodium (Montelukast Sodium) 10 Mg Tablet, 10 MG PO HS, (Reported) Entered as Reported by: TROY HAQUE on 06/20/20 140 Last Action: Reviewed Pantoprazole Sodium (Pantoprazole Sodium) 40 Mg Tablet.dr, 40 MG PO DAILY, (Reported) Entered as Reported by: ALHAJI HORTA on 09/13/1933 Last Action: Reviewed Potassium Chloride (Potassium Chloride) 10 Meq Tab.er.prt, 10 MEQ PO DAILY, (Reported) Entered as Reported by: TROY HAQUE on 06/20/20 140 Last Action: Reviewed Promethazine HCl (Promethazine Tablet) 25 Mg Tablet, 25 MG PO Q6H PRN for NAUSEA/VOMITING-2ND LINE, (Reported) Entered as Reported by: TROY HAQUE on 12/03/21 123 Last Action: Reviewed Revefenacin (Yupelri) 175 Mcg/3 Ml Vial.neb, 175 MCG IH 1200, (Reported) Entered as Reported by: TEJA PORTILLO on 08/12/21 1504 Last Action: Reviewed Sildenafil Citrate (Sildenafil) 20 Mg Tablet, 20 MG PO TID, (Reported) Entered as Reported by: Linh Cat on 08/11/21 1009 Last Action: Reviewed Simvastatin (Simvastatin) 10 Mg Tablet, 10 MG PO HS, (Reported) Entered as Reported by: Linh Cat on 08/11/21 100 Last Action: Reviewed Trazodone HCl (Trazodone HCl) 100 Mg Tablet, 100 MG PO HS, (Reported) Entered as Reported by: TROY HAQUE on 06/20/20 1407 Last Action: Reviewed Venlafaxine HCl (Venlafaxine HCl ER) 150 Mg Cap.er.24h, 150 MG PO DAILY, (Reported) Entered as Reported by: TEJA PORTILLO on 08/12/21 1217 Last Action: Reviewed Zinc Amino Acid Chelate (Zinc) 50 Mg Tablet, 50 MG PO DAILY, (Reported) Entered as Reported by: TEJA PORTILLO on 08/12/21 1323 Last Action: Reviewed Discontinued Medications Diclofenac Sodium (Voltaren Arthritis Pain) 1 % Gel..gram., 1 APPLIC TP TID PRN for PAIN-SEE DOSE INSTRUCTIONS, (Reported) Discontinued Reason: No Longer Taking Entered as Reported by: TEJA PORTILLO on 08/12/21 1322 Last Action: Discontinued Melatonin/Pyridoxine HCl (B6) (Melatonin 3 mg Tablet) 3 Mg-10 Mg Tablet, 1 EACH PO HS, (Reported) Discontinued Reason: Duplicate Order Entered as Reported by: Linh Cat on 08/11/21 100 Last Action: Discontinued Past Pqfooth-[id number]-Hmzkvu Hx Patient Social History Marrital Status: single Employed/Student: retired Smoking Status: Never a Smoker Past Medical History Surgeries: Orthopedic Currently Using CPAP: No High Cholesterol, Hypertension Degenerate Disk Disease, Arthritis Diabetes, Insulin dep Family Medical History Alzheimer's disease G8 SISTER Diabetes mellitus 19 FATHER Hypertension 19 FATHER 19 MOTHER Myocardial infarction 19 FATHER 19 MOTHER Neoplasm G8 SISTER Review of Systems Constitutional: see HPI Respiratory: short of breath (improving) Cardiovascular: edema Physical Exam General Appearance: WD/WN, Anxious, Chronically ill, Mild Distress, Obese Respiratory: No Accessory Muscle Use, No Respiratory Distress, Decreased Breath Sounds Cardiovascular: Regular Rate, Rhythm Neurologic/Psychiatric: Alert, Oriented x3, No Motor/Sensory Deficits, Normal Mood/Affect Assessment/Plan Assessment and Plan Assessment: Acute hypoxic hypercapneic respiratory failure Chronic respiratory failure on O2 4-6L/min PHTN HTN HLP DM Anxiety disorder Valvular heart disease CAD COPD GERD Plan: IV Lasix O2 BiPAP if needed Park cath Home meds Admission Diagnosis Admission Status: Inpatient Order (span 2 midnights) Reason for Inpatient Admission: resp failure Supervisory-Addendum Brief Verification & Attestation Participated in pt care: history, MDM, physical Personally performed: exam, history, MDM, supervision of care Care discussed with: Medical Student Procedures: n/a Results interpretation: Verified all documentation Verification and Attestation of Medical Student E/M Service A medical student performed and documented this service in my presence. I reviewed and verified all information documented by the medical student and made modifications to such information, when appropriate. I personally performed the physical exam and medical decision making. Deya Bailey Dec 04, 2021,05:15 JF CARLSON Dec 03, 2021 09:56 DEYA BAILEY DO Dec 04, 2021 05:14
[2021-12-03] MEDS: RT-BUDESONIDE NEBS 0.5 MG/2ML (PULMICORT) AMP INH SCH ×2 (10:08→21:20)
[2021-12-03] MEDS: ACETAMINOPHEN 500 MG TAB (TYLENOL) PO PRN (11:09)
[2021-12-03] MEDS ORDERED: REVEFENACIN 175 MCG IH SCH (12:00)
[2021-12-03] MEDS ORDERED: MELA3TAB39 PO (12:30)
[2021-12-03] MEDS ORDERED: BETA15CR14 TOP (12:30)
[2021-12-03] MEDS ORDERED: PROM25TA14 PO (12:30)
[2021-12-03] MEDS: ENOXAPARIN 40 MG/0.4 ML (LOVENOX) SYR SC SCH (17:58)
[2021-12-03] MEDS: AtorvaSTATin TABLET 10 MG TABLET PO SCH (21:29)
[2021-12-03] MEDS: traZODone 100 MG (DESYREL) TAB PO SCH (21:30)
[2021-12-03] MEDS: MONTELUKAST 10 MG (SINGULAIR) TAB PO SCH (21:30)
[2021-12-03] MEDS: MELATONIN 3 MG TABLET PO PRN (21:33)
[2021-12-04] MEDS: ACETAMINOPHEN 500 MG TAB (TYLENOL) PO PRN (00:17)
[2021-12-04] MEDS: RT-ALBUTEROL/IPRATROPIUM 3 ML (DUONEB) VIAL INH SCH ×4 (02:34→20:21)
[2021-12-04 03:40] VITALS: BP 117/71
[2021-12-04 05:56] LABS: BASOPHILS # (AUTO) 0.1 10^3/uL (0.0-0.1); BASOPHILS % (AUTO) 1 % (0-10); EOSINOPHILS # (AUTO) 0.3 10^3/uL (0.0-0.3); EOSINOPHILS % (AUTO) 3 % (0-10); HEMATOCRIT 36 % (35-52); HEMOGLOBIN 11.4 g/dL (11.5-16.0); LYMPHOCYTES % (AUTO) 10 % (12-44); MEAN CORPUSCULAR HEMOGLOBIN 33 pg (25-34); MEAN CORPUSCULAR HGB CONC 32 g/dL (32-36); MEAN CORPUSCULAR VOLUME 104 fL (80-99); MEAN PLATELET VOLUME 9.7 fL (9.0-12.2); MONOCYTES # (AUTO) 0.5 10^3/uL (0.0-1.0); MONOCYTES % (AUTO) 5 % (0-12); NEUTROPHILS # (AUTO) 8.2 10^3/uL (1.8-7.8); NEUTROPHILS % (AUTO) 81 % (42-75); PLATELET COUNT 188 10^3/uL (130-400); WHITE BLOOD COUNT 10.1 10^3/uL (4.3-11.0)
[2021-12-04 06:16] LABS: ALBUMIN 3.5 GM/DL (3.2-4.5); BILIRUBIN,TOTAL 0.4 MG/DL (0.1-1.0); CALCIUM 8.9 MG/DL (8.5-10.1); CREATININE SERUM 1.3 MG/DL (0.60-1.30); POTASSIUM 4.4 MMOL/L (3.6-5.0)
[2021-12-04] MEDS: inSUlin ASPART (NovoLOG) 1 UNIT/0.01 ML (CHARGE PER UNIT) SC SCH ×4 (06:21→21:26)
[2021-12-04] MEDS: PANTOPRAZOLE 40 MG (PROTONIX) TAB PO SCH (06:26)
[2021-12-04] MEDS: FUROSEMIDE 40 MG/4 ML INJ (LASIX) IVP SCH ×2 (06:26→17:11)
[2021-12-04] MEDS: LEVOTHYROXINE 125 MCG (LEVOTHROID) TABLET PO SCH (06:26)
[2021-12-04] MEDS: VENlafaxine XR 75 MG (EFFEXOR XR) CAP PO SCH (06:27)
[2021-12-04 07:33] VITALS: BP 147/68
[2021-12-04] MEDS: inSUlin ASPART (NovoLOG) 1 UNIT/0.01 ML (CHARGE PER UNIT) SQ SCH ×4 (07:39→21:26)
[2021-12-04] MEDS: RT-BUDESONIDE NEBS 0.5 MG/2ML (PULMICORT) AMP INH SCH ×2 (07:40→20:21)
[2021-12-04] MEDS ORDERED: FLU QUADRIvalent (6 months+) 60 mcg/0.5 ml 2022-23 (Fluzone) IM ONE (08:45)
[2021-12-04] MEDS: VITAMIN D3 125 MCG (5,000 UNITS) CAPSULE PO SCH (08:57)
[2021-12-04] MEDS: DOCUSATE SODIUM 100 MG (COLACE) CAP PO SCH ×2 (08:57→21:23)
[2021-12-04] MEDS: ASPIRIN E.C. 81 MG (ECOTRIN) TAB PO SCH (08:58)
[2021-12-04] MEDS: ZINC SULFATE 220 MG CAPSULE PO SCH (08:58)
[2021-12-04] MEDS: busPIRone 5 MG (BUSPAR) TAB PO SCH ×3 (08:58→21:25)
[2021-12-04] MEDS: ASCORBIC ACID (VIT C) 500 MG TABLET PO SCH (08:58)
[2021-12-04] MEDS: SENNOSIDES 8.6 MG (SENOKOT) TAB PO SCH ×2 (08:59→21:24)
[2021-12-04] MEDS: SILDENAFIL 20 MG (REVATIO) TAB PO SCH ×3 (08:59→21:26)
[2021-12-04] MEDS: KCL 10 MEQ TAB (MICRO K) PO SCH (08:59)
[2021-12-04] MEDS: LOSARTAN 50 MG (COZAAR) TAB PO SCH (08:59)
--- NOTE | 2021-12-04 09:21 | Cardiology Progress Note ---
Progress Note-Cardiology Events since last exam Date Seen by Provider: Dec 04, 2021 Time Seen by Provider: 09:20 Events since last exam I am following her due to heart failure with preserved ejection fraction. Her breathing continues to improve but might not be quite back to her baseline. She has minimal ankle edema. She denies chest pain, palpitations, or syncope. Certain portions of this document may have been dictated utilizing voice recognition technology. Inherent to this technology, typographical and grammatical errors may exist. As much as I am diligent to identify and correct these mistakes, some errors may remain in the document. Vitals Last set of Vitals Signs Vital Signs 12/02/21 12/04/21 19:06 11:15 Temp 37.4 Pulse 90 Resp 20 B/P (MAP) 151/56 (87) Pulse Ox 100 O2 Delivery Nasal Cannula O2 Flow Rate 3.00 FiO2 36 Labs Labs Laboratory Tests 12/04/21 05:45 Exam Vital Signs Vital Signs Date Time Temp Pulse Resp B/P (MAP) Pulse Ox O2 Delivery O2 Flow Rate FiO2 12/04/21 11:15 37.4 90 20 151/56 (87) 100 Nasal Cannula 3.00 12/02/21 19:06 36 Physical Exam General: Alert. No acute distress. She is obese. She was sitting up in a chair. She is on oxygen by nasal cannula. Eye: No xanthelasma. HENT: Normocephalic. Neck: Jugular venous pressure does not appear elevated. Respiratory: Lungs are clear to auscultation. Respirations are non-labored. Breath sounds are equal. Symmetrical chest wall expansion. Cardiovascular: Normal rate. Regular rhythm. Distant S1/S2. No murmur. No gallop. Trace bilateral pretibial edema. Gastrointestinal: Soft. Normal bowel sounds. Skin: Warm. Dry. Neurologic: Alert and oriented to person, place, time. Cranial nerves 3-11 grossly intact. Psychiatric: Cooperative. Appropriate mood & affect. Labs Laboratory Tests Test 12/03/21 16:07 12/03/21 20:23 12/03/21 21:43 12/04/21 05:45 Range/Units Glucometer 143 H 78 131 H 70-110 MG/DL White Blood Count 10.1 4.3-11.0 10^3/uL Red Blood Count 3.48 L 3.80-5.11 10^6/uL Hemoglobin 11.4 L 11.5-16.0 g/dL Hematocrit 36 35-52 % Mean Corpuscular Volume 104 H 80-99 fL Mean Corpuscular Hemoglobin 33 25-34 pg Mean Corpuscular Hemoglobin Concent 32 32-36 g/dL Red Cell Distribution Width 13.0 10.0-14.5 % Platelet Count 188 130-400 10^3/uL Mean Platelet Volume 9.7 9.0-12.2 fL Immature Granulocyte % (Auto) 0 % Neutrophils (%) (Auto) 81 H 42-75 % Lymphocytes (%) (Auto) 10 L 12-44 % Monocytes (%) (Auto) 5 0-12 % Eosinophils (%) (Auto) 3 0-10 % Basophils (%) (Auto) 1 0-10 % Neutrophils # (Auto) 8.2 H 1.8-7.8 10^3/uL Lymphocytes # (Auto) 1.0 1.0-4.0 10^3/uL Monocytes # (Auto) 0.5 0.0-1.0 10^3/uL Eosinophils # (Auto) 0.3 0.0-0.3 10^3/uL Basophils # (Auto) 0.1 0.0-0.1 10^3/uL Immature Granulocyte # (Auto) 0.0 0.0-0.1 10^3/uL Sodium Level 141 135-145 MMOL/L Potassium Level 4.4 3.6-5.0 MMOL/L Chloride Level 99 98-107 MMOL/L Carbon Dioxide Level 29 21-32 MMOL/L Anion Gap 13 5-14 MMOL/L Blood Urea Nitrogen 27 H 7-18 MG/DL Creatinine 1.30 0.60-1.30 MG/DL Estimat Glomerular Filtration Rate 45 BUN/Creatinine Ratio 21 Glucose Level 108 H 70-105 MG/DL Calcium Level 8.9 8.5-10.1 MG/DL Corrected Calcium 9.3 8.5-10.1 MG/DL Total Bilirubin 0.4 0.1-1.0 MG/DL Aspartate Amino Transf (AST/SGOT) 16 5-34 U/L Alanine Aminotransferase (ALT/SGPT) 19 0-55 U/L Alkaline Phosphatase 111 40-136 U/L Total Protein 7.0 6.4-8.2 GM/DL Albumin 3.5 3.2-4.5 GM/DL Test 12/04/21 07:21 12/04/21 10:57 Range/Units Glucometer 129 H 186 H 70-110 MG/DL Diagnosis/Problems Diagnosis/Problems (1) Acute on chronic heart failure with preserved ejection fraction (HFpEF) Status: Acute Assessment & Plan: She just had an echocardiogram last week that showed a normal ejection fraction. She also has normal right ventricular function. She does have some valvular heart disease but nothing severe. She now appears to have about class III heart failure. I concur with intravenous diuretic. Her symptoms are gradually improving. Her chest x-ray from this morning on 12/04 showed clear lungs. I suspect she may be ready for discharge within the next 24 hours. She was previously following with a controlled area checker in [place] but would like to hazardous waste remover to our practice. (2) Pulmonary hypertension Status: Chronic Assessment & Plan: This is most likely related to her chronic heart failure and perhaps some degree of underlying pulmonary disease as well as sleep apnea. She wears oxygen 29/09. She has also been taking sildenafil. (3) Mitral stenosis Status: Chronic Assessment & Plan: Her echocardiogram showed mild to moderate mitral stenosis. I would not expect this to be causing symptoms but will need to be followed longitudinally. There is no indication for any sort of valvular intervention at this time. (4) Primary hypertension Status: Chronic Assessment & Plan: Continue outpatient antihypertensive medication. Her blood pressure has been intermittently elevated. If this persists, we may need to make some slight adjustments to her medication. I would suggest avoiding amlodipine as this could make her peripheral edema worse. (5) Mixed hyperlipidemia Status: Chronic Assessment & Plan: Her LDL level is well controlled on the current dose of atorvastatin which has been continued. (6) Acute on chronic respiratory failure with hypoxemia Status: Acute Assessment & Plan: Most likely due to heart failure as well as some degree of pulmonary disease and her morbid obesity with perhaps some restrictive lung disease. (7) Stage 3a chronic kidney disease Status: Chronic Assessment & Plan: We will need to watch her renal function closely with the intravenous diuretic. Her creatinine is starting to creep up slowly. We may need to stop the IV diuretic soon if her creatinine continues to climb. (8) Type 2 diabetes mellitus with complication Status: Chronic Assessment & Plan: This is being managed by the hospitalist. (9) Morbid obesity Status: Chronic Assessment & Plan: She needs to work on weight loss. I ordered a nutrition consult. JEANMARIE GRIFFITH JR, MD Dec 04, 2021 09:21
--- NOTE | 2021-12-04 09:26 | Progress Note ---
JF CARLSON 12/04/21 0926: Subjective Date Seen by a Provider: Dec 04, 2021 Time Seen by a Provider: 08:30 Subjective/Events-last exam Ms. Taveras states she is feeling tired this morning since she didnt sleep very well. This is due to the bed and with the IJ catheter placement which limits her neck mobility. She feels like her breathing has improved with the lasix, and is wondering when she will be able to go home. She asked if she could receive a flu shot while she is here. Additionally, she wanted to know if she should continue to follow with Dr. Quinones locally as opposed to continuing to see her current electrical machinist in [place]. Otherwise she has no other questions or concerns at this time. With Dr. Bailey, we discussed increasing her Trazodone to 150 mg nightly and her Melatonin to 10mg nightly to help with her sleep. We also discussed that she will continue to need IV diuresis for at least another day or two and then we can think about discharging her home. We are being mindful of her kidney functioning while also trying to diurese her. Discussed it would probably make things easier for her to continue to see Dr. Quinones locally as opposed to traveling to [place], and that there will be good continuity of care since she was seen while in the hospital. Also discussed okay to get the Flu shot today. She had no other questions or concerns at this time. Review of Systems HEENT: Head Aches, Eye Pain (L sided, pt states related to poor sleep) Focused Exam Respiratory: Lungs Clear Cardiovascular: Regular Rate, Rhythm, No Gallop, No JVD, No Murmur, Normal Peripheral Pulses Capillary Refill: Less Than 3 Seconds Peripheral Pulses: 2+ Dorsalis Pedis (R), 2+ Left Dors-Pedis (L) Skin: normal color, warm/dry Objective Exam Last Set of Vital Signs Vital Signs Date Time Temp Pulse Resp B/P (MAP) Pulse Ox O2 Delivery O2 Flow Rate FiO2 12/04/21 08:00 Nasal Cannula 4.00 12/04/21 07:49 95 12/04/21 07:33 36.7 86 20 147/68 (94) 12/02/21 19:06 36 Capillary Refill : Less Than 3 Seconds I&O Intake and Output 12/04/21 00:00 Intake Total 1390 ml Output Total 2750 ml Balance -1360 ml Intake Oral 1390 ml Output Urine Total 2750 ml # Bowel Movements 1 General: Alert, Oriented X3, Cooperative, No Acute Distress HEENT: Atraumatic, EOMI Neck: Supple Lungs: Clear to Auscultation Heart: Regular Rate, Normal S1, Normal S2, No Murmurs Abdomen: Normal Bowel Sounds, Soft, Other (mild tenderness on palpation over where she has been receiving insulin injections) Extremities: Normal Pulses, Other (1+ pitting edema bilateral lower extremities, decrease in erythema on the left lower leg) Skin: No Significant Lesion Neuro: Normal Speech, Cranial Nerves 3-12 NL Psych/Mental Status: Mental Status NL, Mood NL Other physical findings Bran catheter still present Results Lab Laboratory Tests 12/03/21 10:40: Glucometer 229H 12/03/21 16:07: Glucometer 143H 12/03/21 20:23: Glucometer 78 12/03/21 21:43: Glucometer 131H 12/04/21 05:45: White Blood Count 10.1, Red Blood Count 3.48L, Hemoglobin 11.4L, Hematocrit 36, Mean Corpuscular Volume 104H, Mean Corpuscular Hemoglobin 33, Mean Corpuscular Hemoglobin Concent 32, Red Cell Distribution Width 13.0, Platelet Count 188, Mean Platelet Volume 9.7, Immature Granulocyte % (Auto) 0, Neutrophils (%) (Auto) 81H, Lymphocytes (%) (Auto) 10L, Monocytes (%) (Auto) 5, Eosinophils (%) (Auto) 3, Basophils (%) (Auto) 1, Neutrophils # (Auto) 8.2H, Lymphocytes # (Auto) 1.0, Monocytes # (Auto) 0.5, Eosinophils # (Auto) 0.3, Basophils # (Auto) 0.1, Immature Granulocyte # (Auto) 0.0, Sodium Level 141, Potassium Level 4.4, Chloride Level 99, Carbon Dioxide Level 29, Anion Gap 13, Blood Urea Nitrogen 27H, Creatinine 1.30, Estimat Glomerular Filtration Rate 45, BUN/Creatinine Ratio 21, Glucose Level 108H, Calcium Level 8.9, Corrected Calcium 9.3, Total Bilirubin 0.4, Aspartate Amino Transf (AST/SGOT) 16, Alanine Aminotransferase (ALT/SGPT) 19, Alkaline Phosphatase 111, Total Protein 7.0, Albumin 3.5 12/04/21 07:21: Glucometer 129H Assessment/Plan Assessment/Plan Assess & Plan/Chief Complaint Assessment: Ms. Rhea Taveras is a 65 y/o F who has a past medical history HFpEF, pulmonary hypertension, CAD s/p JACK, T2DM, COPD, chronic anemia, axiety, obesity, HTN, and HLD who presented from clinic for possible syncope and shortness of breath and found to be in a heart failure exacerbation. Diagnoses: Acute on chronic heart failure of HFpEF Acute on chronic respiratory failure Pulmonary hypertension CKD T2DM Macrocytic anemia COPD Insomnia Plan as seen below problems Diagnosis/Problems Diagnosis/Problems (1) Acute on chronic heart failure with preserved ejection fraction (HFpEF) Status: Acute Assessment & Plan: Patient presents with a heart failure exacerbation, BNP 1436.1, Trop neg, 2+ pitting edema on presentation, Wt of ~260 lbs on admission, dry weight of 236-240. Patient on Lasix 40mg PO BID at home, on admission, started on IV Lasix with good diuresis thus far. 12/04 update: weight of 260 lbs despite good diuresis. Net out of -1360 mL over past 24 hours. - Cont Lasix 40 mg IV BID at this time, consider switching to PO lasix tomorrow in hopes of planning for discharge - Cont Losartan 50mg daily - Cont Metoprolol succinate 25mg daily - Strict I/Os - Daily standing weights - 1.5L liquid restriction. (2) Acute on chronic respiratory failure with hypoxemia Status: Acute Assessment & Plan: Patient presented with acute respiratory failure from Dr. Bailey's clinic. At clinic, her oxygen saturation was in the low 80s upon exertion and while on her home oxygen of 4L. Patient was volume overloaded upon admission, weight of 260, dry weight of 236-240. Likely thought to be due to a heart failure exacerbation. Patient on Lasix 40mg QAM and then will sometimes take an additional 40mg in PM. 12/04: patient feel like she is having improvement in her breathing. Back to 3L - Cont Lasix 40mg IV BID. - Standing weights daily - Strict I/Os - Rec 1.5L volume restriction. (3) Stage 3a chronic kidney disease Status: Chronic Assessment & Plan: Baseline Creatinine of ~1.0. On admission, BUN 27, Cr of 1.14 -> 1.22. Suspect Cardiorenal sydrome given heart failure exacerbation. 12/04 update: Cr of 1.30. Still having good urine output, total of 2750 mL yesterday. Does not meet criteria for BHAVIK at this time. - Continue to monitor kidney functioning while continuing to diruese. - Cont Losartan 50mg daily - Cont Lasix IV 40mg BID (4) Pulmonary hypertension Status: Chronic Assessment & Plan: ECHO last in 05/2021 with LVEF 60-65%, mild mitral valve stenosis, and severe pulmonary hypertension with estimated PA pressure of 60 mmHg. Thought to be related to valvular disease, heart failure, and COPD. - Cont Sildenafil 20mg TID. - Cont to follow with Cardiology. (5) Mitral stenosis Status: Chronic Assessment & Plan: Last ECHO in 05/2021 which showed mild mitral valve stenosis. 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 (6) Primary hypertension Status: Chronic Assessment & Plan: Patient is slightly hypertensive on admission at 148/76. 12/04 update: 117/71 - Cont Losartan 50mg daily - Con Metoprolol succinate 25mg daily (7) Mixed hyperlipidemia Status: Chronic Assessment & Plan: Currently well controlled. Chol: 111, Tri: 91, LDL: 64, HDL: 31 - Cont Atorvastatin 5mg QHS (8) Type 2 diabetes mellitus with complication Status: Chronic Assessment & Plan: Patient with well controlled blood sugars. 12/04 update: patient was hypoglycemic yesterday evening to 78. Decreased her Determir to 20U QHS yesterday - Decreased Insulin Determir from 40U to 20U QHS - Cont Insulin Aspart 6U TID with meals (9) Morbid obesity Status: Chronic Assessment & Plan: BMI 40.8 kg/m2. Weight on admission ~260 lbs. Dry weight 236-240 per patient. - Cont to monitor and diruese (10) Chronic anemia Status: Chronic Assessment & Plan: Hgb of 10.6, MCV 106. 12/04 update: B12 and folate WNL. Unlikely to be due to hemolysis since bilirubin is WNL. TSH was WNL earlier this year. Liver functioning WNL - Continue to monitor. Can consider copper deficiency/zinc ingestion work up or other macrocytic anemia (11) Anxiety Status: Chronic Assessment & Plan: Cont Venlafaxine 150mg daily, Buspirone 5mg TID, Diphenhydramine 25mg, Alprazolam 0.5mg q4 prn (12) Left leg pain Status: Acute Assessment & Plan: Erythema on medial aspect of left lower leg, which has improved since presentation. Likely related to venous stasis vs cellulitis. Patient is afebrile, no leukocytosis, improving pain. 12/04 update: decrease in erythema on left lower leg, patient without pain. - CTM as diuresis improves. (13) Insomnia Status: Acute Assessment & Plan: Patient unable to sleep well night of 12/03-12/04. Patient states she usually takes her Trazodone 100mg QHS and Melatonin 3mg nightly but was unable to sleep due to the bed and the IJ catheter limiting neck mobility. - Increase Trazodone to 150mg QHS - Increase Melatonin to 10mg QHS (14) COPD (chronic obstructive pulmonary disease) Status: Chronic Assessment & Plan: Patient has no active wheezing on auscultation. - Cont Duoneb q6 hr PRN - Cont singulair 10mg daily - Cont Budesonide BID Clinical Quality Measures Admission Status Admission Dx Ms. Rhea Taveras is a 65 y/o F with past medical history of HFpEF, pulmonary hypertension, CAD s/p JACK, T2DM, chronic anemia, COPD, anxiety, obesity, HTN, and HLD who presented with shortness of breath upon exertion and found to be in a heart failure exacerbation with acute respiratory failure. DEYA BAILEY DO 12/05/21 0529: Subjective Subjective/Events-last exam Improved overall Bran cath still in place IV Lasix continues Objective Exam General: Alert, Oriented X3, Cooperative, No Acute Distress Lungs: Clear to Auscultation, Normal Air Movement Heart: Regular Rate, Normal S1, Normal S2, No Murmurs Psych/Mental Status: Mental Status NL, Mood NL Assessment/Plan Assessment/Plan Assess & Plan/Chief Complaint Improved status Continue Lasix IV Supervisory-Addendum Brief Verification & Attestation Participated in pt care: history, MDM, physical Personally performed: exam, history, MDM, supervision of care Care discussed with: Medical Student Procedures: n/a Results interpretation: Verified all documentation Verification and Attestation of Medical Student E/M Service A medical student performed and documented this service in my presence. I reviewed and verified all information documented by the medical student and made modifications to such information, when appropriate. I personally performed the physical exam and medical decision making. Deya Bailey, Dec 05, 2021,05:28 JF CARLSON Dec 04, 2021 09:26 DEYA BAILEY DO Dec 05, 2021 05:29
--- NOTE | 2021-12-04 09:59 | Occupational Ther Daily Note ---
OT Current Status-Daily Note Subjective Pt sitting in recliner alert. Pt agrees to therapy. No c/o pain at this time. Mental Status/Objective Patient Orientation: Person, Place, Time, Situation ADL-Treatment Pt completes UB sponge bath, min A to cleanse around PICC line. Pt states she is very scared to touch PICC line. Pt declines to ambulate into bathroom to complete oral care at sink due to fear of pulling on PICC line. Pt completes oral care sitting in recliner by self after supplies gathered. Pt left in recliner call light/phone in reach. Sons in room. All needs met. Therapy Code Descriptions/Definitions Functional [place] Measure: 0=Not Assessed/NA 4=Minimal Assistance 1=Total Assistance 5=Supervision or Setup 2=Maximal Assistance 6=Modified [place] 3=Moderate Assistance 7=Complete IndependenceSCALE: Activities may be completed with or without assistive devices. 9-Elkxnqoanv-dnyvfdh completes the activity by him/herself with no assistance from a helper. 5-Set-up or Clean-up Assistance-helper sets up or cleans up; patient completes activity. [place] assists only prior to or following the activity. 4-Supervision or Touching Assistance-helper provides verbal cues and/or touching/steadying and/or contact guard assistance as patient completes activity. Assistance may be provided throughout the activity or intermittently. 3-Partial/Moderate Assistance-helper does LESS THAN HALF the effort. [place] lifts, holds or supports trunk or limbs, but provides less than half the effort. 2-Substantial/Maximal Assistance-helper does MORE THAN HALF the effort. [place] lifts or holds trunk or limbs and provides more than half the effort. 8-Fxxniyfnh-yozwpg does ALL the effort. Patient does none of the effort to complete the activity. Or, the assistance of 2 or more helpers is required for the patient to complete the activity. If activity was not attempted, code reason: 7-Patient Refused. 9-Not Applicable-not attempted and the patient did not perform the activity before the current illness, exacerbation or injury. 10-Not Attempted due to Environmental Limitations-(lack of equipment, weather restraints, etc.). 88-Not Attempted due to Medical Conditions or Safety Concerns. Bathing Location: L Arm, R Arm, Chest, Abdomen OT Sodder Goals Sodder Goals Time Frame: Dec 10, 2021 Toileting Hygiene (QC): 6 Shower/Bathe Self (QC): 5 Upper Body Dressing (QC): 6 Lower Body Dressing (QC): 5 On/Off Footwear (QC): 5 Additional Goals: 1-Demonstrate ADL Tasks, 2-Verbalize Understanding, 3- ImproveStrength/[place] 1=Demonstrate adherence to instructed precautions during ADL tasks. 2=Patient will verbalize/demonstrate understanding of assistive devices/modifications for ADL. 3=Patient will improve strength/tolerance for activity to enable patient to perform ADL's. OT Education/Plan Problem List/Assessment Assessment: Impaired Self-Care Skills Discharge Recommendations Plan/Recommendations: Continue POC Treatment Plan/Plan of Care Patient would benefit from OT for education, treatment and training to promote independence in ADL's, mobility, safety and/or upper extremity function for ADL's. Plan of Care: ADL Retraining, Functional Mobility, Group Exercise/Act as Ind, UE Funct Exercise/Act Treatment Duration: Dec 10, 2021 Frequency: 3 times per week (3-5x/week) Estimated Hrs Per Day: 1 hour per day Agreement: Yes Rehab Potential: Fair Time/GCodes Start Time: 09:29 Stop Time: 09:42 Total Time Billed (hr/min): 13 Billed Treatment Time 1 visit ADL 1 (13 min) IVETH COSTELLO Dec 04, 2021 09:59
--- NOTE | 2021-12-04 11:04 | Diagnostic Imaging Report ---
EXAMINATION: Chest 2 view HISTORY: Heart failure. COMPARISON: 05/15/2019. FINDINGS: Stable enlargement of the cardiac silhouette. A right IJ central line is present with the tip projecting over the proximal SVC. The lungs are clear without consolidation, pleural effusion, or pneumothorax. Degenerative changes of the thoracic spine. Osseous structures are otherwise intact. IMPRESSION: 1. No acute radiographic abnormality in the chest. Dictated by: Dictated on workstation # [id number]
[2021-12-04 11:15] VITALS: BP 151/56
--- NOTE | 2021-12-04 11:21 | Physical Therapy Daily Note ---
PT Daily Note-Current Subjective Patient in recliner pre tx, agrees to PT, has no complaints of pain. Pain Section J - Health Conditions 1. Rarely or not at all 2. Occasionally 3. Frequently 4. Almost constantly 8. Unable to answer Pain Effect on Sleep: 1 Pain Interference with Therapy: 1 Pain Interference w/Day-to-Day: 1 Appearance Patient in recliner post tx with nurse call, phone, tray, all needs met. Mental Status Patient Orientation: Person, Place, Situation Attachments: Oxygen, Bran Catheter Transfers SCALE: Activities may be completed with or without assistive devices. 6-Xycphyeswu-gdibmks completes the activity by him/herself with no assistance f rom a helper. 5-Set-up or Clean-up Assistance-helper sets up or cleans up; patient completes activity. [place] assists only prior to or following the activity. 4-Supervision or Touching Assistance-helper provides verbal cues and/or touching/steadying and/or contact guard assistance as patient completes activity. Assistance may be provided throughout the activity or intermittently. 3-Partial/Moderate Assistance-helper does LESS THAN HALF the effort. [place] lifts, holds or supports trunk or limbs, but provides less than half the effort. 2-Substantial/Maximal Assistance-helper does MORE THAN HALF the effort. [place] lifts or holds trunk or limbs and provides more than half the effort. 4-Jmllkigvv-ksncsu does ALL the effort. Patient does none of the effort to complete the activity. Or, the assistance of 2 or more helpers is required for the patient to complete the activity. If activity was not attempted, code reason: 7-Patient Refused. 9-Not Applicable-not attempted and the patient did not perform the activity before the current illness, exacerbation or injury. 10-Not Attempted due to Environmental Limitations-(lack of equipment, weather restraints, etc.). 88-Not Attempted due to Medical Conditions or Safety Concerns. Sit to Stand (QC): 4 Chair/Wfl-lu-Gcvgq Xfer(QC): 4 SBA Gait Training Distance: 200' Walk 10 feet (QC): 4 Walk 50 ft with 2 Turns(QC): 4 Walk 150 ft (QC): 4 Gait Persons Needed: 1 Gait Assistive Device: FWW SBA, slow but steady ambulation, SOB after ambulation but recovers quickly after sitting Exercises Seated Therapy Exercises: Ankle pumps, Long arc quads Seated Reps: 20 Treatments transfers, ambulation, LE ROM Assessment Current Status: Fair Progress SBA with transfers and ambulation, SOB with activity PT Custodial Goals Home Organizer Goals PT Home Organizer Goals Time Frame: Dec 14, 2021 Roll Left & Right (QC): 6 Sit to Lying (QC): 6 Lying-Sitting on Side/Bed(QC): 6 Sit to Stand (QC): 6 Chair/Jpx-wr-Aivhg Xfer(QC): 6 Toilet Transfer (QC): 6 Walk 10 feet (QC): 6 Walk 50ft with 2 Turns (QC): 6 Walk 150 ft (QC): 6 PT Plan Problem List Problem List: Activity Tolerance, Functional Strength, Safety, Balance, Gait, Transfer, ROM Treatment/Plan Treatment Plan: Continue Plan of Care Treatment Plan: Education, Functional Activity Lola, Functional Strength, Gait, Safety, Therapeutic Exercise, Transfers Treatment Duration: Dec 14, 2021 Frequency: 6 times per week Estimated Hrs Per Day: .25 hour per day Patient and/or Family Agrees t: Yes Safety Risks/Education Patient Education: Gait Training, Transfer Techniques, Correct Positioning, Safety Issues Teaching Recipient: Patient Teaching Methods: Demonstration, Discussion Response to Teaching: Reinforcement Needed Time/GCodes Time In: 1059 Time Out: 1112 Total Billed Treatment Time: 13 Total Billed Treatment 1 visit FA BRENT BURNETTE PT Dec 04, 2021 11:21
[2021-12-04] MEDS: ALPRAZolam 0.5 MG (XANAX) TAB PO PRN ×2 (13:09→21:26)
[2021-12-04 16:05] VITALS: BP 119/74
[2021-12-04] MEDS: ENOXAPARIN 40 MG/0.4 ML (LOVENOX) SYR SC SCH (18:25)
[2021-12-04 19:12] VITALS: BP 108/67
[2021-12-04] MEDS ORDERED: traZODone 50 MG (DESYREL) TAB PO SCH (21:00)
[2021-12-04] MEDS ORDERED: MELATONIN 3 MG TABLET PO SCH (21:00)
[2021-12-04] MEDS: MONTELUKAST 10 MG (SINGULAIR) TAB PO SCH (21:24)
[2021-12-04] MEDS: AtorvaSTATin TABLET 10 MG TABLET PO SCH (21:24)
[2021-12-05 00:02] VITALS: BP 111/67
[2021-12-05] MEDS: RT-ALBUTEROL/IPRATROPIUM 3 ML (DUONEB) VIAL INH SCH ×2 (03:05→07:32)
[2021-12-05 04:01] VITALS: BP 109/72
[2021-12-05] MEDS: FUROSEMIDE 40 MG/4 ML INJ (LASIX) IVP SCH (05:41)
[2021-12-05] MEDS: PANTOPRAZOLE 40 MG (PROTONIX) TAB PO SCH (05:41)
[2021-12-05] MEDS: LEVOTHYROXINE 125 MCG (LEVOTHROID) TABLET PO SCH (05:41)
[2021-12-05] MEDS: VENlafaxine XR 75 MG (EFFEXOR XR) CAP PO SCH (05:41)
[2021-12-05 06:00] LABS: ALBUMIN 3.3 GM/DL (3.2-4.5)
[2021-12-05 06:02] LABS: BASOPHILS # (AUTO) 0.1 10^3/uL (0.0-0.1); BASOPHILS % (AUTO) 1 % (0-10); CALCIUM 8.6 MG/DL (8.5-10.1); EOSINOPHILS # (AUTO) 0.3 10^3/uL (0.0-0.3); EOSINOPHILS % (AUTO) 4 % (0-10); HEMATOCRIT 35 % (35-52); HEMOGLOBIN 10.8 g/dL (11.5-16.0); LYMPHOCYTES # (AUTO) 0.8 10^3/uL (1.0-4.0); LYMPHOCYTES % (AUTO) 9 % (12-44); MEAN CORPUSCULAR HEMOGLOBIN 32 pg (25-34); MEAN CORPUSCULAR HGB CONC 31 g/dL (32-36); MEAN CORPUSCULAR VOLUME 105 fL (80-99); MEAN PLATELET VOLUME 10.1 fL (9.0-12.2); MONOCYTES # (AUTO) 0.5 10^3/uL (0.0-1.0); MONOCYTES % (AUTO) 6 % (0-12); NEUTROPHILS # (AUTO) 7.1 10^3/uL (1.8-7.8); NEUTROPHILS % (AUTO) 80 % (42-75); PLATELET COUNT 177 10^3/uL (130-400); WHITE BLOOD COUNT 8.9 10^3/uL (4.3-11.0)
[2021-12-05 06:03] LABS: TOTAL PROTEIN 6.6 GM/DL (6.4-8.2)
[2021-12-05 06:05] LABS: BILIRUBIN,TOTAL 0.4 MG/DL (0.1-1.0)
[2021-12-05 06:06] LABS: CREATININE SERUM 1.44 MG/DL (0.60-1.30)
[2021-12-05 07:21] VITALS: BP 129/60
[2021-12-05] MEDS: inSUlin ASPART (NovoLOG) 1 UNIT/0.01 ML (CHARGE PER UNIT) SQ SCH ×2 (07:30→12:39)
[2021-12-05] MEDS: RT-BUDESONIDE NEBS 0.5 MG/2ML (PULMICORT) AMP INH SCH (07:32)
[2021-12-05 07:34] VITALS: BP 129/60
[2021-12-05] MEDS: inSUlin ASPART (NovoLOG) 1 UNIT/0.01 ML (CHARGE PER UNIT) SC SCH ×2 (07:37→11:41)
--- NOTE | 2021-12-05 09:39 | Occupational Ther Daily Note ---
OT Current Status-Daily Note Subjective Pt sitting in recliner alert. Pt agrees to therapy. Pt states she really would like to get her PICC line out. No c/o pain at this time. Mental Status/Objective Patient Orientation: Person, Place, Time, Situation ADL-Treatment Therapy Code Descriptions/Definitions Functional [place] Measure: 0=Not Assessed/NA 4=Minimal Assistance 1=Total Assistance 5=Supervision or Setup 2=Maximal Assistance 6=Modified [place] 3=Moderate Assistance 7=Complete IndependenceSCALE: Activities may be completed with or without assistive devices. 3-Swglzpgafl-keztjws completes the activity by him/herself with no assistance from a helper. 5-Set-up or Clean-up Assistance-helper sets up or cleans up; patient completes activity. [place] assists only prior to or following the activity. 4-Supervision or Touching Assistance-helper provides verbal cues and/or touching/steadying and/or contact guard assistance as patient completes activit y. Assistance may be provided throughout the activity or intermittently. 3-Partial/Moderate Assistance-helper does LESS THAN HALF the effort. [place] lifts, holds or supports trunk or limbs, but provides less than half the effort. 2-Substantial/Maximal Assistance-helper does MORE THAN HALF the effort. [place] lifts or holds trunk or limbs and provides more than half the effort. 1-Lltlctqck-wcktvg does ALL the effort. Patient does none of the effort to complete the activity. Or, the assistance of 2 or more helpers is required for the patient to complete the activity. If activity was not attempted, code reason: 7-Patient Refused. 9-Not Applicable-not attempted and the patient did not perform the activity before the current illness, exacerbation or injury. 10-Not Attempted due to Environmental Limitations-(lack of equipment, weather restraints, etc.). 88-Not Attempted due to Medical Conditions or Safety Concerns. Other Treatment Pt completed 3 B UE exercises 3 sets 10 reps, against gravity to strengthen B UE for daily functional tasks. Pt refusal to use theraband to complete exercises due to fear of it hurting PICC line. Skilled instruction and demonstration given. Pt left in recliner talha light/phone in reach. All needs met in room. Education OT Patient Education: Exercise program Teaching Recipient: Patient Teaching Methods: Demonstration, Discussion Response to Teaching: Verbalize Understanding, Return Demonstration OT Specialty Cook Goals Intermediate Goals Time Frame: Dec 10, 2021 Toileting Hygiene (QC): 6 Shower/Bathe Self (QC): 5 Upper Body Dressing (QC): 6 Lower Body Dressing (QC): 5 On/Off Footwear (QC): 5 Additional Goals: 1-Demonstrate ADL Tasks, 2-Verbalize Understanding, 3- ImproveStrength/[place] 1=Demonstrate adherence to instructed precautions during ADL tasks. 2=Patient will verbalize/demonstrate understanding of assistive devices/m odifications for ADL. 3=Patient will improve strength/tolerance for activity to enable patient to perform ADL's. OT Education/Plan Problem List/Assessment Assessment: Decreased Activ Tolerance, Decreased UE Strength Discharge Recommendations Plan/Recommendations: Continue POC Treatment Plan/Plan of Care Patient would benefit from OT for education, treatment and training to promote independence in ADL's, mobility, safety and/or upper extremity function for ADL's. Plan of Care: ADL Retraining, Functional Mobility, Group Exercise/Act as Ind, UE Funct Exercise/Act Treatment Duration: Dec 10, 2021 Frequency: 3 times per week (3-5x/week) Estimated Hrs Per Day: 1 hour per day Agreement: Yes Rehab Potential: Fair Time/GCodes Start Time: 09:12 Stop Time: 09:22 Total Time Billed (hr/min): 10 Billed Treatment Time 1 visit EX 1 (10 min) IVETH COSTELLO Dec 05, 2021 09:39
[2021-12-05] MEDS: ZINC SULFATE 220 MG CAPSULE PO SCH (09:44)
[2021-12-05] MEDS: ASCORBIC ACID (VIT C) 500 MG TABLET PO SCH (09:44)
[2021-12-05] MEDS: ASPIRIN E.C. 81 MG (ECOTRIN) TAB PO SCH (09:44)
[2021-12-05] MEDS: VITAMIN D3 125 MCG (5,000 UNITS) CAPSULE PO SCH (09:44)
[2021-12-05] MEDS: SENNOSIDES 8.6 MG (SENOKOT) TAB PO SCH (09:44)
[2021-12-05] MEDS: DOCUSATE SODIUM 100 MG (COLACE) CAP PO SCH (09:44)
[2021-12-05] MEDS: LOSARTAN 50 MG (COZAAR) TAB PO SCH (09:45)
[2021-12-05] MEDS: SILDENAFIL 20 MG (REVATIO) TAB PO SCH ×2 (09:45→12:40)
[2021-12-05] MEDS: busPIRone 5 MG (BUSPAR) TAB PO SCH ×2 (09:45→12:40)
[2021-12-05] MEDS: KCL 10 MEQ TAB (MICRO K) PO SCH (09:45)
[2021-12-05] MEDS ORDERED: ALPR0.5T7 PO (10:20)
[2021-12-05] MEDS ORDERED: BUSP7.5T5 PO (10:20)
[2021-12-05] MEDS ORDERED: TRZ50T PO (10:20)
[2021-12-05] MEDS ORDERED: FURO-124 PO (10:20)
[2021-12-05] MEDS ORDERED: MELA3TAB39 PO (10:20)
--- NOTE | 2021-12-05 10:23 | Discharge Summary ---
Diagnosis/Chief Complaint Date of Admission Dec 02, 2021 at 17:10 Date of Discharge Discharge Date: Dec 05, 2021 Discharge Diagnosis (1) Acute on chronic heart failure with preserved ejection fraction (HFpEF) Status: Acute Assessment & Plan: Patient presents with a heart failure exacerbation, BNP 1436.1, Trop neg, 2+ pitting edema on presentation, Wt of ~260 lbs on admission, dry weight of 236-240. Patient on Lasix 40mg PO BID at home, on admission, started on IV Lasix with good diuresis thus far. 12/04 update: weight of 260 lbs despite good diuresis. Net out of -1360 mL over past 24 hours. - Cont Lasix 40 mg IV BID at this time, consider switching to PO lasix tomorrow in hopes of planning for discharge - Cont Losartan 50mg daily - Cont Metoprolol succinate 25mg daily - Strict I/Os - Daily standing weights - 1.5L liquid restriction. (2) Acute on chronic respiratory failure with hypoxemia Status: Acute Assessment & Plan: Patient presented with acute respiratory failure from Dr. Bailey's clinic. At clinic, her oxygen saturation was in the low 80s upon exe rtion and while on her home oxygen of 4L. Patient was volume overloaded upon admission, weight of 260, dry weight of 236-240. Likely thought to be due to a heart failure exacerbation. Patient on Lasix 40mg QAM and then will sometimes take an additional 40mg in PM. 12/04: patient feel like she is having improvement in her breathing. Back to 3L - Cont Lasix 40mg IV BID. - Standing weights daily - Strict I/Os - Rec 1.5L volume restriction. (3) Stage 3a chronic kidney disease Status: Chronic Assessment & Plan: Baseline Creatinine of ~1.0. On admission, BUN 27, Cr of 1. 14 -> 1.22. Suspect Cardiorenal sydrome given heart failure exacerbation. 12/04 update: Cr of 1.30. Still having good urine output, total of 2750 mL yesterday. Does not meet criteria for BHAVIK at this time. - Continue to monitor kidney functioning while continuing to diruese. - Cont Losartan 50mg daily - Cont Lasix IV 40mg BID (4) Pulmonary hypertension Status: Chronic Assessment & Plan: ECHO last in 05/2021 with LVEF 60-65%, mild mitral valve stenosis, and severe pulmonary hypertension with estimated PA pressure of 60 mmHg. Thought to be related to valvular disease, heart failure, and COPD. - Cont Sildenafil 20mg TID. - Cont to follow with Cardiology. (5) Mitral stenosis Status: Chronic Assessment & Plan: Last ECHO in 05/2021 which showed mild mitral valve stenosis. 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 (6) Primary hypertension Status: Chronic Assessment & Plan: Patient is slightly hypertensive on admission at 148/76. 12/04 update: 117/71 - Cont Losartan 50mg daily - Con Metoprolol succinate 25mg daily (7) Mixed hyperlipidemia Status: Chronic Assessment & Plan: Currently well controlled. Chol: 111, Tri: 91, LDL: 64, HDL: 31 - Cont Atorvastatin 5mg QHS (8) Type 2 diabetes mellitus with complication Status: Chronic Assessment & Plan: Patient with well controlled blood sugars. 12/04 update: patient was hypoglycemic yesterday evening to 78. Decreased her Determir to 20U QHS yesterday - Decreased Insulin Determir from 40U to 20U QHS - Cont Insulin Aspart 6U TID with meals (9) Morbid obesity Status: Chronic Assessment & Plan: BMI 40.8 kg/m2. Weight on admission ~260 lbs. Dry weight 236-240 per patient. - Cont to monitor and diruese (10) Chronic anemia Status: Chronic Assessment & Plan: Hgb of 10.6, MCV 106. 12/04 update: B12 and folate WNL. Unlikely to be due to hemolysis since bilirubin is WNL. TSH was WNL earlier this year. Liver functioning WNL - Continue to monitor. Can consider copper deficiency/zinc ingestion work up or other macrocytic anemia (11) Anxiety Status: Chronic Assessment & Plan: Cont Venlafaxine 150mg daily, Buspirone 5mg TID, Diphenhydramine 25mg, Alprazolam 0.5mg q4 prn (12) Left leg pain Status: Acute Assessment & Plan: Erythema on medial aspect of left lower leg, which has improved since presentation. Likely related to venous stasis vs cellulitis. Patient is afebrile, no leukocytosis, improving pain. 12/04 update: decrease in erythema on left lower leg, patient without pain. - CTM as diuresis improves. (13) Insomnia Status: Acute Assessment & Plan: Patient unable to sleep well night of 12/03-12/04. Patient states she usually takes her Trazodone 100mg QHS and Melatonin 3mg nightly but was unable to sleep due to the bed and the IJ catheter limiting neck mobility. - Increase Trazodone to 150mg QHS - Increase Melatonin to 10mg QHS (14) COPD (chronic obstructive pulmonary disease) Status: Chronic Assessment & Plan: Patient has no active wheezing on auscultation. - Cont Duoneb q6 hr PRN - Cont singulair 10mg daily - Cont Budesonide BID Reason Hospital Visit CC: Acute hypoxic and hypercapneic respiratory failure with volume overload HPI: This is a 65yoWF clinic patient of mine who was in process of leaving my clinic after an urgent visit due to dyspnea and on her way to admit to hospital when she had an episode of dyspnea and O2 sat of 70%. EMS was called and I updated Dr Potts who prepared for her arrival. Patient required central line placed by Elie Kim in ER due to poor vascular access.IV Lasix has improved her status today and park catheter still in place draining large amounts of urine. Weight had increased by 30#. Dr Quinones consulted. Patient appears to be close to hospice enrollment. Discharge Summary Discharge Physical Examination Allergies: Coded Allergies: Penicillins (Verified Allergy, Unknown, 05/15/19) meperidine (Verified Allergy, Unknown, 09/06/19) morphine (Unverified Allergy, Unknown, 05/15/19) propoxyphene (Verified Allergy, Unknown, 05/15/19) topiramate (Verified Allergy, Unknown, 05/15/19) codeine (Verified Adverse Reaction, Unknown, UPSET STOMACH, 09/13/19) dapagliflozin (Verified Adverse Reaction, Unknown, yeast infection, 09/13/19) Vitals & I&Os Vital Signs Date Time Temp Pulse Resp B/P (MAP) Pulse Ox O2 Delivery O2 Flow Rate FiO2 12/05/21 11:00 37.0 90 18 116/74 (88) 98 Nasal Cannula 3.50 12/02/21 19:06 36 General Appearance: Alert, Oriented X3, Cooperative Respiratory: Clear to Auscultation Cardiovascular: Regular Rate Psych/Mental Status: Mental Status NL Hospital Course Was the Problem List Reviewed?: Yes Ms. Rhea Taveras is a 65 y/o F with past medical history of HFpEF, pulmonary hypertension, CAD s/p JACK, T2DM, COPD, chronic anemia, HTN, HLD, hypothyroidism, GERD, anxiety, and obesity who presented to the [facility] from clinic on 12/02 due to possible syncopal episode and shortness of breath. She was found to be in acute on chronic heart failure exacerbation. On admission, her laboratory results were significant for BNP 1,436.1, Trop <0.028, Hgb 10.6, MCV 106, Cr 1.14, LFTs WL, and Lipid panel WNL. Her weight was 117.9kg on admission. She had an EKG which showed sinus rhythm, no ST changes, prolonged QT. She had an CXR which showed cardiomegaly but no other acute cardiopulmonary abnormalities. She had a right IJ catheter placed and was started on IV Lasix 40mg BID and had a park catheter placed. Her other home medications were continued throughout her hospital stay. Her creatinine increased from 1.14 -> 1.22 -> 1.30 -> 1.44, which was considered due to cardiorenal syndrome. She had a net diuresis of ~4 L during her stay. Her breathing improved with the diuresis and she was saturating well on 3-4L, which is her home oxygen requirements. She had a macrocytic anemia workup and her folate was 10.1 and her B12 was 1517. Her sleep medications were adjusted to help her obtain better sleep. Her Melatonin was increased to 10mg nightly and her Trazodone was increased to 150mg. She was given Xanax 0.4mg PRN on discharge. On discharge on 12/05/2021, her Lasix was switched from IV lasix 40mg to PO Lasix 40mg BID. Her park was removed and a voiding trial was performed. Her breathing was much improved from her initial presentation. A consult was placed to Dr. Pulido to have a port-a-cath placed. Changes to meds: - Increased Lasix 40mg to BID (had been QAM and sometimes in PM) - Increased Melatonin to 10mg nightly - Increased Trazodone to 150mg nightly Progress note 12/05 Subjective: Patient is feeling well today and her breathing and sleep has improved. She is eager to go home and wants to continue her Cardiac exercise classes. She is not requesting home health. Objective: T: 36.4, HR: 89, BP: 129/70, RR 18, SpO2: 98% on 3L Net out of past 24 hours: -1980mL PE: A&O x4, RRR, Normal S1, S2, no murmurs, no gallops, lungs with minimal inspiratory crackles on L lower lung base otherwise lungs clear, normoactive bowel sounds, abd nontender, no masses, 1+ pitting edema on pretibial aspect of bilateral lower legs, decreased erythema on LLE. Labs: CBC stable - Hgb 10.8. CMP - Na 145, K 4.0, BUN 27, Cr 1.44. LFTs - WNL. CXR 12/04: cardiomegaly, no acute radiographic abnormality in the chest. Plan: HFpEF: last ECHO 05/2021 with LVEF 60 to 65% - Lasix 40mg IV BID changed to Lasix 40mg PO BID - Cont Losartan 50mg daily and Metoprolol succinate 25mg daily - Park catheter removal today - Follow up with Dr. Quinones BHAVIK on CKD: Cr to 1.44, likely due to cardiorenal syndrome - Cont Lasix 40mg PO BID Pulmonary hypertension: last ECHO 05/2021 showed sev PA pressure of 60 mmHg. - Cont Sildenafil 20mg TID Insomnia: - Cont Trazodone 150mg nightly, Melatonin 10mg nightly, Xanax 0.4mg PRN T2DM: - Cont Insulin Determir 40U QHS - Cont Insulin Aspart 6U TID Macrocytic anemia: Hgb 10.8, MCV 105. B12 and Folate WNL - Continue to monitor. COPD: - Cont Duoneb q6 hrs PRN, singulair 10mg QHS, Budesonide BID HLD: - Cont Atorvastatin 5mg QHS GERD: - Cont Pantoprazole 40mg QD Hypothyroidism: - Cont Levothyroxine 125 mcg daily Dispo: discharge today to home with planned follow up with Dr. Bailey. Pt declines home health at this time and will plan to continue with her cardiac exercise classes. Pt discussed and seen with Dr. Bailey. Jf Carlson MS4 JF [facility]LSON Labs (last 24 hrs) Laboratory Tests 12/02/21 15:30: Blood Gas Puncture Site R RADIAL, Blood Gas Patient Temperature 98, Arterial Blood pH 7.38, Arterial Blood Partial Pressure CO2 52H, Arterial Blood Partial Pressure O2 65L, Arterial Blood HCO3 30H, Arterial Blood Total CO2 31.9H, Arterial Blood Oxygen Saturation 94, Arterial Blood Base Excess 5.3H, Derian Test NA, Blood Gas Ventilator Setting NO, Blood Gas Inspired Oxygen NA 12/02/21 16:15: White Blood Count 10.7, Red Blood Count 3.11L, Hemoglobin 10.2L, Hematocrit 33L, Mean Corpuscular Volume 106H, Mean Corpuscular Hemoglobin 33, Mean Corpuscular Hemoglobin Concent 31L, Red Cell Distribution Width 13.0, Platelet Count 138, Mean Platelet Volume 9.8, Immature Granulocyte % (Auto) 0, Neutrophils (%) (Auto) 86H, Lymphocytes (%) (Auto) 8L, Monocytes (%) (Auto) 4, Eosinophils (%) (Auto) 2, Basophils (%) (Auto) 0, Neutrophils # (Auto) 9.2H, Lymphocytes # (Auto) 0.9L, Monocytes # (Auto) 0.5, Eosinophils # (Auto) 0.2, Basophils # (Auto) 0.0, Immature Granulocyte # (Auto) 0.0, Prothrombin Time 15.9H, INR Comment 1.2, Activated Partial Thromboplast Time 31, Sodium Level 143, Potassium Level 4.7, Chloride Level 105, Carbon Dioxide Level 28, Anion Gap 10, Blood Urea Nitrogen 27H, Creatinine 1.14, Estimat Glomerular Filtration Rate 53, BUN/Creatinine Ratio 24, Glucose Level 193H, Calcium Level 8.1L, Corrected Calcium 8.6, Magnesium Level 2.2, Total Bilirubin 0.3, Aspartate Amino Transf (AST/SGOT) 17, Alanine Aminotransferase (ALT/SGPT) 22, Alkaline Phosphatase 115, Myoglobin 70.2, Troponin I < 0.028, B-Type Natriuretic Peptide 1436.1H, Total Protein 6.4, Albumin 3.4 12/02/21 22:22: Glucometer 193H 12/03/21 04:55: White Blood Count 9.8, Red Blood Count 3.23L, Hemoglobin 10.6L, Hematocrit 34L, Mean Corpuscular Volume 106H, Mean Corpuscular Hemoglobin 33, Mean Corpuscular Hemoglobin Concent 31L, Red Cell Distribution Width 13.0, Platelet Count 154, Mean Platelet Volume 9.6, Immature Granulocyte % (Auto) 0, Neutrophils (%) (Auto) 82H, Lymphocytes (%) (Auto) 9L, Monocytes (%) (Auto) 5, Eosinophils (%) (Auto) 3, Basophils (%) (Auto) 1, Neutrophils # (Auto) 8.1H, Lymphocytes # (Auto) 0.9L, Monocytes # (Auto) 0.5, Eosinophils # (Auto) 0.3, Basophils # (Auto) 0.1, Immature Granulocyte # (Auto) 0.0, Sodium Level 145, Potassium Level 4.2, Chloride Level 102, Carbon Dioxide Level 30, Anion Gap 13, Blood Urea Nitrogen 27H, Creatinine 1.22, Estimat Glomerular Filtration Rate 49, BUN/Creatinine Ratio 22, Glucose Level 137H, Calcium Level 8.7, Corrected Calcium 9.1, Total Bilirubin 0.4, Aspartate Amino Transf (AST/SGOT) 15, Alanine Aminotransferase (ALT/SGPT) 20, Alkaline Phosphatase 119, Total Protein 6.6, Albumin 3.5, Triglycerides Level 91, Cholesterol Level 111, LDL Cholesterol Dir ect 64, VLDL Cholesterol 18, HDL Cholesterol 31L, Vitamin B12 Level 1517H, Folate 10.1 12/03/21 10:40: Glucometer 229H 12/03/21 16:07: Glucometer 143H 12/03/21 20:23: Glucometer 78 12/03/21 21:43: Glucometer 131H 12/04/21 05:45: White Blood Count 10.1, Red Blood Count 3.48L, Hemoglobin 11.4L, Hematocrit 36, Mean Corpuscular Volume 104H, Mean Corpuscular Hemoglobin 33, Mean Corpuscular Hemoglobin Concent 32, Red Cell Distribution Width 13.0, Platelet Count 188, Mean Platelet Volume 9.7, Immature Granulocyte % (Auto) 0, Neutrophils (%) (Auto) 81H, Lymphocytes (%) (Auto) 10L, Monocytes (%) (Auto) 5, Eosinophils (%) (Auto) 3, Basophils (%) (Auto) 1, Neutrophils # (Auto) 8.2H, Lymphocytes # (Auto) 1.0, Monocytes # (Auto) 0.5, Eosinophils # (Auto) 0.3, Basophils # (Auto) 0.1, Immature Granulocyte # (Auto) 0.0, Sodium Level 141, Potassium Level 4.4, Chloride Level 99, Carbon Dioxide Level 29, Anion Gap 13, Blood Urea Nitrogen 27 H, Creatinine 1.30, Estimat Glomerular Filtration Rate 45, BUN/Creatinine Ratio 21, Glucose Level 108H, Calcium Level 8.9, Corrected Calcium 9.3, Total Bilirubin 0.4, Aspartate Amino Transf (AST/SGOT) 16, Alanine Aminotransferase (ALT/SGPT) 19, Alkaline Phosphatase 111, Total Protein 7.0, Albumin 3.5 12/04/21 07:21: Glucometer 129H 12/04/21 10:57: Glucometer 186H 12/04/21 15:23: Glucometer 132H 12/04/21 20:50: Glucometer 120H 12/05/21 05:30: White Blood Count 8.9, Red Blood Count 3.33L, Hemoglobin 10.8L, Hematocrit 35, Mean Corpuscular Volume 105H, Mean Corpuscular Hemoglobin 32, Mean Corpuscular Hemoglobin Concent 31L, Red Cell Distribution Width 12.9, Platelet Count 177, Mean Platelet Volume 10.1, Immature Granulocyte % (Auto) 0, Neutrophils (%) (Auto) 80H, Lymphocytes (%) (Auto) 9L, Monocytes (%) (Auto) 6, Eosinophils (%) (Auto) 4, Basophils (%) (Auto) 1, Neutrophils # (Auto) 7.1, Lymphocytes # (Auto) 0.8L, Monocytes # (Auto) 0.5, Eosinophils # (Auto) 0.3, Basophils # (Auto) 0.1, Immature Granulocyte # (Auto) 0.0, Sodium Level 145, Potassium Level 4.0, Chloride Level 100, Carbon Dioxide Level 33H, Anion Gap 12, Blood Urea Nitrogen 27H, Creatinine 1.44H, Estimat Glomerular Filtration Rate 40, BUN/Creatinine Ratio 19, Glucose Level 91, Calcium Level 8.6, Corrected Calcium 9.2, Total Bilirubin 0.4, Aspartate Amino Transf (AST/SGOT) 14, Alanine Aminotransferase (ALT/SGPT) 13, Alkaline Phosphatase 106, Total Protein 6.6, Albumin 3.3 12/05/21 10:57: Glucometer 175H Pending Labs Laboratory Tests 12/02/21 15:30: Blood Gas Puncture Site R RADIAL, Blood Gas Patient Temperature 98, Arterial Blood pH 7.38, Arterial Blood Partial Pressure CO2 52, Arterial Blood Partial Pressure O2 65, Arterial Blood HCO3 30, Arterial Blood Total CO2 31.9, Arterial Blood Oxygen Saturation 94, Arterial Blood Base Excess 5.3, Derian Test NA, Blood Gas Ventilator Setting NO, Blood Gas Inspired Oxygen NA 12/02/21 16:15: White Blood Count 10.7, Red Blood Count 3.11, Hemoglobin 10.2, Hematocrit 33, Mean Corpuscular Volume 106, Mean Corpuscular Hemoglobin 33, Mean Corpuscular Hemoglobin Concent 31, Red Cell Distribution Width 13.0, Platelet Count 138, Mean Platelet Volume 9.8, Immature Granulocyte % (Auto) 0, Neutrophils (%) (Auto) 86, Lymphocytes (%) (Auto) 8, Monocytes (%) (Auto) 4, Eosinophils (%) (Auto) 2, Basophils (%) (Auto) 0, Neutrophils # (Auto) 9.2, Lymphocytes # (Auto) 0.9, Monocytes # (Auto) 0.5, Eosinophils # (Auto) 0.2, Basophils # (Auto) 0.0, Immature Granulocyte # (Auto) 0.0, Prothrombin Time 15.9, INR Comment 1.2, Activated Partial Thromboplast Time 31, Sodium Level 143, Potassium Level 4.7, Chloride Level 105, Carbon Dioxide Level 28, Anion Gap 10, Blood Urea Nitrogen 27, Creatinine 1.14, Estimat Glomerular Filtration Rate 53, BUN/Creatinine Ratio 24, Glucose Level 193, Calcium Level 8.1, Corrected Calcium 8.6, Magnesium Level 2.2, Total Bilirubin 0.3, Aspartate Amino Transf (AST/SGOT) 17, Alanine Aminotransferase (ALT/SGPT) 22, Alkaline Phosphatase 115, Myoglobin 70.2, Troponin I < 0.028, B-Type Natriuretic Peptide 1436.1, Total Protein 6.4, Albumin 3.4 12/02/21 22:22: Glucometer 193 12/03/21 04:55: White Blood Count 9.8, Red Blood Count 3.23, Hemoglobin 10.6, Hematocrit 34, Mean Corpuscular Volume 106, Mean Corpuscular Hemoglobin 33, Mean Corpuscular Hemoglobin Concent 31, Red Cell Distribution Width 13.0, Platelet Count 154, Mean Platelet Volume 9.6, Immature Granulocyte % (Auto) 0, Neutrophils (%) (Auto) 82, Lymphocytes (%) (Auto) 9, Monocytes (%) (Auto) 5, Eosinophils (%) (Auto) 3, Basophils (%) (Auto) 1, Neutrophils # (Auto) 8.1, Lymphocytes # (Auto) 0.9, Monocytes # (Auto) 0.5, Eosinophils # (Auto) 0.3, Basophils # (Auto) 0.1, Immature Granulocyte # (Auto) 0.0, Sodium Level 145, Potassium Level 4.2, Chloride Level 102, Carbon Dioxide Level 30, Anion Gap 13, Blood Urea Nitrogen 27, Creatinine 1.22, Estimat Glomerular Filtration Rate 49, BUN/Creatinine Ratio 22, Glucose Level 137, Calcium Level 8.7, Corrected Calcium 9.1, Total Bilirubin 0.4, Aspartate Amino Transf (AST/SGOT) 15, Alanine Aminotransferase (ALT/SGPT) 20, Alkaline Phosphatase 119, Total Protein 6.6, Albumin 3.5, Triglycerides Level 91, Cholesterol Level 111, LDL Cholesterol Direct 64, VLDL Cholesterol 18, HDL Cholesterol 31, Vitamin B12 Level 1517, Folate 10.1 12/03/21 10:40: Glucometer 229 12/03/21 16:07: Glucometer 143 12/03/21 20:23: Glucometer 78 12/03/21 21:43: Glucometer 131 12/04/21 05:45: White Blood Count 10.1, Red Blood Count 3.48, Hemoglobin 11.4, Hematocrit 36, Mean Corpuscular Volume 104, Mean Corpuscular Hemoglobin 33, Mean Corpuscular Hemoglobin Concent 32, Red Cell Distribution Width 13.0, Platelet Count 188, Mean Platelet Volume 9.7, Immature Granulocyte % (Auto) 0, Neutrophils (%) (Auto) 81, Lymphocytes (%) (Auto) 10, Monocytes (%) (Auto) 5, Eosinophils (%) (Auto) 3, Basophils (%) (Auto) 1, Neutrophils # (Auto) 8.2, Lymphocytes # (Auto) 1.0, Monocytes # (Auto) 0.5, Eosinophils # (Auto) 0.3, Basophils # (Auto) 0.1, Immature Granulocyte # (Auto) 0.0, Sodium Level 141, Potassium Level 4.4, Chloride Level 99, Carbon Dioxide Level 29, Anion Gap 13, Blood Urea Nitrogen 27, Creatinine 1.30, Estimat Glomerular Filtration Rate 45, BUN/Creatinine Ratio 21, Glucose Level 108, Calcium Level 8.9, Corrected Calcium 9.3, Total Bilirubin 0.4, Aspartate Amino Transf (AST/SGOT) 16, Alanine Aminotransferase (ALT/SGPT) 19, Alkaline Phosphatase 111, Total Protein 7.0, Albumin 3.5 12/04/21 07:21: Glucometer 129 12/04/21 10:57: Glucometer 186 12/04/21 15:23: Glucometer 132 12/04/21 20:50: Glucometer 120 12/05/21 05:30: White Blood Count 8.9, Red Blood Count 3.33, Hemoglobin 10.8, Hematocrit 35, Mean Corpuscular Volume 105, Mean Corpuscular Hemoglobin 32, Mean Corpuscular Hemoglobin Concent 31, Red Cell Distribution Width 12.9, Platelet Count 177, Mean Platelet Volume 10.1, Immature Granulocyte % (Auto) 0, Neutrophils (%) (Auto) 80, Lymphocytes (%) (Auto) 9, Monocytes (%) (Auto) 6, Eosinophils (%) (Auto) 4, Basophils (%) (Auto) 1, Neutrophils # (Auto) 7.1, Lymphocytes # (Auto) 0.8, Monocytes # (Auto) 0.5, Eosinophils # (Auto) 0.3, Basophils # (Auto) 0.1, Immature Granulocyte # (Auto) 0.0, Sodium Level 145, Potassium Level 4.0, Chloride Level 100, Carbon Dioxide Level 33, Anion Gap 12, Blood Urea Nitrogen 27, Creatinine 1.44, Estimat Glomerular Filtration Rate 40, BUN/Creatinine Ratio 19, Glucose Level 91, Calcium Level 8.6, Corrected Calcium 9.2, Total Bilirubin 0.4, Aspartate Amino Transf (AST/SGOT) 14, Alanine Aminotransferase (ALT/SGPT) 13, Alkaline Phosphatase 106, Total Protein 6.6, Albumin 3.3 12/05/21 10:57: Glucometer 175 Discharge Home Medications: Active Scripts Active Melatonin 3 Mg Tablet 10 Mg PO HS Buspirone HCl 7.5 Mg Tablet 7.5 Mg PO BID 30 Days Lasix (Furosemide) 40 Mg Tablet 40 Mg PO BID take at 0800 and 1400 Alprazolam 0.5 Mg Tablet 0.5 Mg PO BID PRN Trazodone HCl 50 Mg Tablet 150 Mg PO HS Reported Promethazine Tablet (Promethazine HCl) 25 Mg Tablet 25 Mg PO Q6H PRN Betamethasone Dp Aug 0.05% Crm (Betamethasone/Propylene Glyc) 0.05 % Cream..g. 1 Applic TOP BID APPLIES TO HAND, ARMS AND LEGS Yupelri (Revefenacin) 175 Mcg/3 Ml Vial.neb 175 Mcg IH 1200 Perforomist (Formoterol Fumarate) 20 Mcg/2 Ml Vial.neb 20 Mcg IH BID Budesonide 0.5 Mg/2 Ml Ampul.neb 0.5 Mg IH BID Vitamin D3 (Cholecalciferol (Vitamin D3)) 125 Mcg (5000 Unit) Tablet 125 Mcg PO DAILY Vitamin C (Ascorbate Calcium) 500 Mg Tablet 500 Mg PO DAILY Zinc (Zinc Amino Acid Chelate) 50 Mg Tablet 50 Mg PO DAILY Neurontin (Gabapentin) 300 Mg Capsule 300 Mg PO QID Tresiba Flextouch U-200 (Insulin Degludec) 200 Unit/Ml (3 Ml) Insuln.pen 40 Unit SQ HS Venlafaxine HCl ER (Venlafaxine HCl) 150 Mg Cap.er.24h 150 Mg PO DAILY Sildenafil (Sildenafil Citrate) 20 Mg Tablet 20 Mg PO TID Insulin Aspart Flexpen (Insulin Aspart) 100 Unit/Ml (3 Ml) Insuln.pen 6 Unit SQ ACHS Simvastatin 10 Mg Tablet 10 Mg PO HS Montelukast Sodium 10 Mg Tablet 10 Mg PO HS Potassium Chloride 10 Meq Tab.er.prt 10 Meq PO DAILY Pantoprazole Sodium 40 Mg Tablet.dr 40 Mg PO DAILY Levothyroxine Sodium 125 Mcg Tablet 125 Mcg PO DAILY Tylenol Extra Strength (Acetaminophen) 500 Mg Tablet 1,000 Mg PO BID PRN Aspirin EC (Aspirin) 81 Mg Tablet.dr 81 Mg PO DAILY Metoprolol Succinate 25 Mg Tab.er.24h 25 Mg PO DAILY Losartan Potassium 50 Mg Tablet 50 Mg PO DAILY Tresiba Flextouch U-200 (Insulin Degludec) 200 Unit/1 Ml Insuln.pen 20 Units SC DAILY Instructions to patient/family Please see electronic discharge instructions given to patient. FERN BAILEY DO Dec 05, 2021 10:23
[2021-12-05 11:00] VITALS: BP 116/74
--- NOTE | 2021-12-05 11:16 | Physical Therapy Daily Note ---
PT Daily Note-Current Subjective Patient states, "I hope to go home today." AGrees to PT. Pain Numeric Pain Scale: 0-No Pain Location: No Pain Reported Section J - Health Conditions 1. Rarely or not at all 2. Occasionally 3. Frequently 4. Almost constantly 8. Unable to answer Pain Effect on Sleep: 1 Pain Interference with Therapy: 1 Pain Interference w/Day-to-Day: 1 Mental Status Patient Orientation: Normal For Age Attachments: Oxygen (4L continuous), Bran Catheter Transfers SCALE: Activities may be completed with or without assistive devices. 8-Vqaeyzscfk-ydaqlpf completes the activity by him/herself with no assistance from a helper. 5-Set-up or Clean-up Assistance-helper sets up or cleans up; patient completes activity. [place] assists only prior to or following the activity. 4-Supervision or Touching Assistance-helper provides verbal cues and/or touching/steadying and/or contact guard assistance as patient completes activity. Assistance may be provided throughout the activity or intermittently. 3-Partial/Moderate Assistance-helper does LESS THAN HALF the effort. [place] lifts, holds or supports trunk or limbs, but provides less than half the effort. 2-Substantial/Maximal Assistance-helper does MORE THAN HALF the effort. [place] lifts or holds trunk or limbs and provides more than half the effort. 1-Ivkemixih-flqayo does ALL the effort. Patient does none of the effort to complete the activity. Or, the assistance of 2 or more helpers is required for the patient to complete the activity. If activity was not attempted, code reason: 7-Patient Refused. 9-Not Applicable-not attempted and the patient did not perform the activity before the current illness, exacerbation or injury. 10-Not Attempted due to Environmental Limitations-(lack of equipment, weather restraints, etc.). 88-Not Attempted due to Medical Conditions or Safety Concerns. Sit to Stand (QC): 6 Gait Training Distance: 250' Walk 10 feet (QC): 6 Walk 50 ft with 2 Turns(QC): 6 Walk 150 ft (QC): 6 Gait Assistive Device: FWW functional gait sequence with PT assist for O2 tank only Assessment Patient remains up in recliner with family present. Patient is currently at independent PLOF with all gross motor skills. PT [facility] Goals Director Selection And Administration Goals PT [facility] Goals Time Frame: Dec 14, 2021 Roll Left & Right (QC): 6 Sit to Lying (QC): 6 Lying-Sitting on Side/Bed(QC): 6 Sit to Stand (QC): 6 Chair/Vat-vf-Oqjzi Xfer(QC): 6 Toilet Transfer (QC): 6 Walk 10 feet (QC): 6 Walk 50ft with 2 Turns (QC): 6 Walk 150 ft (QC): 6 PT Plan Treatment/Plan Treatment Plan: Continue Plan of Care Treatment Plan: Education, Functional Activity Lola, Functional Strength, Gait, Safety, Therapeutic Exercise, Transfers Treatment Duration: Dec 14, 2021 Frequency: 6 times per week Estimated Hrs Per Day: .25 hour per day Patient and/or Family Agrees t: Yes Time/GCodes Time In: 950 Time Out: 1000 Total Billed Treatment Time: 10 Total Billed Treatment 1 visit FA 10 min ARON GAMBLE PT Dec 05, 2021 11:16
--- NOTE | 2021-12-05 11:34 | Progress Note ---
JF CARLSON 12/05/21 1134: Progress Note Ms. Rhea Taveras is a 65 y/o F with past medical history of HFpEF, pulmonary hypertension, CAD s/p JACK, T2DM, COPD, chronic anemia, HTN, HLD, hypothyroidism, GERD, anxiety, and obesity who presented to the [facility] from clinic on 12/02 due to possible syncopal episode and shortness of breath. She was found to be in acute on chronic heart failure exacerbation. On admission, her laboratory results were significant for BNP 1,436.1, Trop <0.028, Hgb 10.6, MCV 106, Cr 1.14, LFTs WL, and Lipid panel WNL. Her weight was 117.9kg on admission. She had an EKG which showed sinus rhythm, no ST changes, prolonged QT. She had an CXR which showed cardiomegaly but no other acute cardiopulmonary abnormalities. She had a right IJ catheter placed and was started on IV Lasix 40mg BID and had a park catheter placed. Her other home medications were continued throughout her hospital stay. Her creatinine increased from 1.14 -> 1.22 -> 1.30 -> 1.44, which was considered due to cardiorenal syndrome. She had a net diuresis of ~4 L during her stay. Her breathing improved with the diuresis and she was saturating well on 3-4L, which is her home oxygen requirements. She had a macrocytic anemia workup and her folate was 10.1 and her B12 was 1517. Her sleep medications were adjusted to help her obtain better sleep. Her Melatonin was increased to 10mg nightly and her Trazodone was increased to 150mg. She was given Xanax 0.4mg PRN on discharge. On discharge on 12/05/2021, her Lasix was switched from IV lasix 40mg to PO Lasix 40mg BID. Her park was removed and a voiding trial was performed. Her breathing was much improved from her initial presentation. A consult was placed to Dr. Pulido to have a port-a-cath placed. Changes to meds: - Increased Lasix 40mg to BID (had been QAM and sometimes in PM) - Increased Melatonin to 10mg nightly - Increased Trazodone to 150mg nightly Progress note 12/05 Subjective: Patient is feeling well today and her breathing and sleep has improved. She is eager to go home and wants to continue her Cardiac exercise classes. She is not requesting home health. Objective: T: 36.4, HR: 89, BP: 129/70, RR 18, SpO2: 98% on 3L Net out of past 24 hours: -1980mL PE: A&O x4, RRR, Normal S1, S2, no murmurs, no gallops, lungs with minimal inspiratory crackles on L lower lung base otherwise lungs clear, normoactive bowel sounds, abd nontender, no masses, 1+ pitting edema on pretibial aspect of bilateral lower legs, decreased erythema on LLE. Labs: CBC stable - Hgb 10.8. CMP - Na 145, K 4.0, BUN 27, Cr 1.44. LFTs - WNL. CXR 12/04: cardiomegaly, no acute radiographic abnormality in the chest. Plan: HFpEF: last ECHO 05/2021 with LVEF 60 to 65% - Lasix 40mg IV BID changed to Lasix 40mg PO BID - Cont Losartan 50mg daily and Metoprolol succinate 25mg daily - Park catheter removal today - Follow up with Dr. Quinones BHAVIK on CKD: Cr to 1.44, likely due to cardiorenal syndrome - Cont Lasix 40mg PO BID Pulmonary hypertension: last ECHO 05/2021 showed sev PA pressure of 60 mmHg. - Cont Sildenafil 20mg TID Insomnia: - Cont Trazodone 150mg nightly, Melatonin 10mg nightly, Xanax 0.4mg PRN T2DM: - Cont Insulin Determir 40U QHS - Cont Insulin Aspart 6U TID Macrocytic anemia: Hgb 10.8, MCV 105. B12 and Folate WNL - Continue to monitor. COPD: - Cont Duoneb q6 hrs PRN, singulair 10mg QHS, Budesonide BID HLD: - Cont Atorvastatin 5mg QHS GERD: - Cont Pantoprazole 40mg QD Hypothyroidism: - Cont Levothyroxine 125 mcg daily Dispo: discharge today to home with planned follow up with Dr. Bailey. Pt declines home health at this time and will plan to continue with her cardiac exercise classes. Pt discussed and seen with Dr. Bailey. Jf Carlson MS4 DEYA BAILEY DO 12/06/21 0517: Supervisory-Addendum Brief Verification & Attestation Participated in pt care: history, MDM, physical Personally performed: exam, history, MDM, supervision of care Care discussed with: Medical Student Procedures: n/a Results interpretation: Verified all documentation Verification and Attestation of Medical Student E/M Service A medical student performed and documented this service in my presence. I reviewed and verified all information documented by the medical student and made modifications to such information, when appropriate. I personally performed the physical exam and medical decision making. Deya Bailey, Dec 06, 2021,05:17 JF CARLSON Dec 05, 2021 11:34 DEYA BAILEY DO Dec 06, 2021 05:17
--- NOTE | 2021-12-05 12:08 | Cardiology Progress Note ---
Progress Note-Cardiology Events since last exam Date Seen by Provider: Dec 05, 2021 Time Seen by Provider: 12:07 Events since last exam I am following her due to heart failure with preserved ejection fraction. She feels like her breathing is back to normal. She has minimal ankle edema. She denies chest pain, palpitations, or syncope. She wants to go home today. Certain portions of this document may have been dictated utilizing voice recognition technology. Inherent to this technology, typographical and gr ammatical errors may exist. As much as I am diligent to identify and correct these mistakes, some errors may remain in the document. Vitals Last set of Vitals Signs Vital Signs 12/02/21 12/05/21 19:06 11:00 Temp 37.0 Pulse 90 Resp 18 B/P (MAP) 116/74 (88) Pulse Ox 98 O2 Delivery Nasal Cannula O2 Flow Rate 3.50 FiO2 36 Labs Labs Laboratory Tests 12/05/21 05:30 Exam Vital Signs Vital Signs Date Time Temp Pulse Resp B/P (MAP) Pulse Ox O2 Delivery O2 Flow Rate FiO2 12/05/21 11:00 37.0 90 18 116/74 (88) 98 Nasal Cannula 3.50 12/02/21 19:06 36 Physical Exam General: Alert. No acute distress. She is obese. She was sitting up in a chair. She is on oxygen by nasal cannula. Eye: No xanthelasma. HENT: Normocephalic. Neck: Jugular venous pressure does not appear elevated. Respiratory: Lungs are clear to auscultation. Respirations are non-labored. Breath sounds are equal. Symmetrical chest wall expansion. Cardiovascular: Normal rate. Regular rhythm. Distant S1/S2. No murmur. No gallop. Trace bilateral pretibial edema. Gastrointestinal: Soft. Normal bowel sounds. Skin: Warm. Dry. Neurologic: Alert and oriented to person, place, time. Cranial nerves 3-11 grossly intact. Psychiatric: Cooperative. Appropriate mood & affect. Labs Laboratory Tests Test 12/04/21 20:50 12/05/21 05:30 12/05/21 10:57 Range/Units Glucometer 120 H 175 H 70-110 MG/DL White Blood Count 8.9 4.3-11.0 10^3/uL Red Blood Count 3.33 L 3.80-5.11 10^6/uL Hemoglobin 10.8 L 11.5-16.0 g/dL Hematocrit 35 35-52 % Mean Corpuscular Volume 105 H 80-99 fL Mean Corpuscular Hemoglobin 32 25-34 pg Mean Corpuscular Hemoglobin Concent 31 L 32-36 g/dL Red Cell Distribution Width 12.9 10.0-14.5 % Platelet Count 177 130-400 10^3/uL Mean Platelet Volume 10.1 9.0-12.2 fL Immature Granulocyte % (Auto) 0 % Neutrophils (%) (Auto) 80 H 42-75 % Lymphocytes (%) (Auto) 9 L 12-44 % Monocytes (%) (Auto) 6 0-12 % Eosinophils (%) (Auto) 4 0-10 % Basophils (%) (Auto) 1 0-10 % Neutrophils # (Auto) 7.1 1.8-7.8 10^3/uL Lymphocytes # (Auto) 0.8 L 1.0-4.0 10^3/uL Monocytes # (Auto) 0.5 0.0-1.0 10^3/uL Eosinophils # (Auto) 0.3 0.0-0.3 10^3/uL Basophils # (Auto) 0.1 0.0-0.1 10^3/uL Immature Granulocyte # (Auto) 0.0 0.0-0.1 10^3/uL Sodium Level 145 135-145 MMOL/L Potassium Level 4.0 3.6-5.0 MMOL/L Chloride Level 100 98-107 MMOL/L Carbon Dioxide Level 33 H 21-32 MMOL/L Anion Gap 12 5-14 MMOL/L Blood Urea Nitrogen 27 H 7-18 MG/DL Creatinine 1.44 H 0.60-1.30 MG/DL Estimat Glomerular Filtration Rate 40 BUN/Creatinine Ratio 19 Glucose Level 91 70-105 MG/DL Calcium Level 8.6 8.5-10.1 MG/DL Corrected Calcium 9.2 8.5-10.1 MG/DL Total Bilirubin 0.4 0.1-1.0 MG/DL Aspartate Amino Transf (AST/SGOT) 14 5-34 U/L Alanine Aminotransferase (ALT/SGPT) 13 0-55 U/L Alkaline Phosphatase 106 40-136 U/L Total Protein 6.6 6.4-8.2 GM/DL Albumin 3.3 3.2-4.5 GM/DL Diagnosis/Problems Diagnosis/Problems (1) Acute on chronic heart failure with preserved ejection fraction (HFpEF) Status: Acute Assessment & Plan: She just had an echocardiogram last week that showed a normal ejection fraction. She also has normal right ventricular function. She does have some valvular heart disease but nothing severe. She now appears to have about class III heart failure. She is much improved after receiving intravenous diuretic. She appears to be ready for discharge today.. She was previously following with a shovel log loader operator in [place] but would like to exchange teller to our practice. I have asked the staff to get her an appointment to see me in 1 week. (2) Pulmonary hypertension Status: Chronic Assessment & Plan: This is most likely related to her chronic heart failure and perhaps some degree of underlying pulmonary disease as well as sleep apnea. She wears oxygen /. She has also been taking sildenafil. (3) Mitral stenosis Status: Chronic Assessment & Plan: Her echocardiogram showed mild to moderate mitral stenosis. I would not expect this to be causing symptoms but will need to be followed longitudinally. There is no indication for any sort of valvular intervention at this time. (4) Primary hypertension Status: Chronic Assessment & Plan: Continue outpatient antihypertensive medication. Her blood pressure had been intermittently elevated but improved over the past 24 hours. (5) Mixed hyperlipidemia Status: Chronic Assessment & Plan: Her LDL level is well controlled on the current dose of atorvastatin which has been continued. (6) Acute on chronic respiratory failure with hypoxemia Status: Acute Assessment & Plan: Most likely due to heart failure as well as some degree of pulmonary disease and her morbid obesity with perhaps some restrictive lung disease. (7) Stage 3a chronic kidney disease Status: Chronic Assessment & Plan: We will need to watch her renal function closely with the intravenous diuretic. Her creatinine is starting to creep up slowly. She can go back to her previous dose of oral furosemide at the time of discharge. (8) Type 2 diabetes mellitus with complication Status: Chronic Assessment & Plan: This is being managed by the hospitalist. (9) Morbid obesity Status: Chronic Assessment & Plan: She needs to work on weight loss. I ordered a nutrition consult. JEANMARIE GRIFFITH JR, MD Dec 05, 2021 12:08
--- NOTE | 2021-12-05 13:19 | Consultation - Surgery ---
KAREN BLANK 12/05/21 1319: History of Present Illness History of Present Illness Patient Consulted On(paige/time) 12/05/21 13:13 Date Seen by Provider: Dec 05, 2021 Time Seen by Provider: 13:13 History of Present Illness Consult requested for port placement. Patient is a 65 year old female with a past history of CHF, HTN, pulmonary HTN, and COPD who presented to the ED on 12/02 with chief complaint of dyspnea and syncope. Patient was at Dr. Bailey's office for an appointment for worsening dyspnea over the past week. As she was leaving, she felt increasing shortening of breath and her O2 sat dropped to 70%. She was then brought to the ED by EMS. Patient states that she's been having slowly worsening dyspnea and fatigue over the past 6 months with her symptoms becoming more noticeable over the past week. The patient states that she has also noticed increasing edema over the past month and has gained 30 pounds during that time. Her dyspnea has improved over her stay and she is being discharged today. Allergies and Home Medications Allergies Coded Allergies: Penicillins (Verified Allergy, Unknown, 05/15/19) meperidine (Verified Allergy, Unknown, 09/06/19) morphine (Unverified Allergy, Unknown, 05/15/19) propoxyphene (Verified Allergy, Unknown, 05/15/19) topiramate (Verified Allergy, Unknown, 05/15/19) codeine (Verified Adverse Reaction, Unknown, UPSET STOMACH, 09/13/19) dapagliflozin (Verified Adverse Reaction, Unknown, yeast infection, 09/13/19) Patient Home Medication List Home Medication List Reviewed: Yes Acetaminophen (Tylenol Extra Strength) 500 Mg Tablet, 1,000 MG PO BID PRN for PAIN-MILD, (Reported) Entered as Reported by: MOODY FRANCO on 11/02/17 1632 Last Action: Reviewed Alprazolam (Alprazolam) 0.5 Mg Tablet, 0.5 MG PO BID PRN for ANXIETY Prescribed by: FERN BAILEY on 12/05/21 1020 Ascorbate Calcium (Vitamin C) 500 Mg Tablet, 500 MG PO DAILY, (Reported) Entered as Reported by: TEJA PORTILLO on 08/12/21 1323 Last Action: Reviewed Aspirin (Aspirin EC) 81 Mg Tablet.dr, 81 MG PO DAILY, (Reported) Entered as Reported by: MOODY FRANCO on 11/02/17 1632 Last Action: Reviewed Betamethasone/Propylene Glyc (Betamethasone Dp Aug 0.05% Crm) 0.05 % Cream..g., 1 APPLIC TOP BID, (Reported) Entered as Reported by: TROY HAQUE on 12/03/21 1230 Last Action: Reviewed Budesonide (Budesonide) 0.5 Mg/2 Ml Ampul.neb, 0.5 MG IH BID, (Reported) Entered as Reported by: TEJA PORTILLO on 08/12/21 1503 Last Action: Reviewed Buspirone HCl (Buspirone HCl) 7.5 Mg Tablet, 7.5 MG PO BID Prescribed by: FERN BAILEY on 12/05/21 1020 Cholecalciferol (Vitamin D3) (Vitamin D3) 125 Mcg (5000 Unit) Tablet, 125 MCG PO DAILY, (Reported) Entered as Reported by: TEJA PORTILLO on 08/12/21 1324 Last Action: Reviewed Formoterol Fumarate (Perforomist) 20 Mcg/2 Ml Vial.neb, 20 MCG IH BID, (Reported) Entered as Reported by: TEJA PORTILLO on 08/12/21 1503 Last Action: Reviewed Furosemide (Lasix) 40 Mg Tablet, 40 MG PO BID Prescribed by: FERN BAILEY on 12/05/21 1020 Gabapentin (Neurontin) 300 Mg Capsule, 300 MG PO QID, (Reported) Entered as Reported by: TEJA PORTILLO on 08/12/21 1320 Last Action: Reviewed Insulin Aspart (Insulin Aspart Flexpen) 100 Unit/Ml (3 Ml) Insuln.pen, 6 UNIT SQ ACHS, (Reported) Entered as Reported by: Linh Cat on 08/11/21 1009 Last Action: Reviewed Insulin Degludec (Tresiba Flextouch U-200) 200 Unit/1 Ml Insuln.pen, 20 UNITS SC DAILY, (Reported) Entered as Reported by: MOODY FRANCO on 11/02/17 1632 Last Action: Reviewed Insulin Degludec (Tresiba Flextouch U-200) 200 Unit/Ml (3 Ml) Insuln.pen, 40 UNIT SQ HS, (Reported) Entered as Reported by: TEJA PORTILLO on 08/12/21 1319 Last Action: Reviewed Levothyroxine Sodium (Levothyroxine Sodium) 125 Mcg Tablet, 125 MCG PO DAILY, (Reported) Entered as Reported by: ALHAJI HORTA on 09/13/19832 Last Action: Reviewed Losartan Potassium (Losartan Potassium) 50 Mg Tablet, 50 MG PO DAILY, (Reported) Entered as Reported by: MOODY FRANCO on 11/02/17 1632 Last Action: Reviewed Melatonin (Melatonin) 3 Mg Tablet, 10 MG PO HS Prescribed by: FERN BAILEY on 12/05/21 1020 Metoprolol Succinate (Metoprolol Succinate) 25 Mg Tab.er.24h, 25 MG PO DAILY, (Reported) Entered as Reported by: MOODY FRANCO on 11/02/17 163 Last Action: Reviewed Montelukast Sodium (Montelukast Sodium) 10 Mg Tablet, 10 MG PO HS, (Reported) Entered as Reported by: TROY HAQUE on 06/20/20 140 Last Action: Reviewed Pantoprazole Sodium (Pantoprazole Sodium) 40 Mg Tablet.dr, 40 MG PO DAILY, (Reported) Entered as Reported by: ALHAJI HORTA on 09/13/19832 Last Action: Reviewed Potassium Chloride (Potassium Chloride) 10 Meq Tab.er.prt, 10 MEQ PO DAILY, (Reported) Entered as Reported by: TROY HAQUE on 06/20/20 140 Last Action: Reviewed Promethazine HCl (Promethazine Tablet) 25 Mg Tablet, 25 MG PO Q6H PRN for NAUSEA/VOMITING-2ND LINE, (Reported) Entered as Reported by: TROY HAQUE on 12/03/21 1230 Last Action: Reviewed Revefenacin (Yupelri) 175 Mcg/3 Ml Vial.neb, 175 MCG IH 1200, (Reported) Entered as Reported by: TEJA PORTILLO on 08/12/21 1504 Last Action: Reviewed Sildenafil Citrate (Sildenafil) 20 Mg Tablet, 20 MG PO TID, (Reported) Entered as Reported by: Linh Cat on 08/11/21 1009 Last Action: Reviewed Simvastatin (Simvastatin) 10 Mg Tablet, 10 MG PO HS, (Reported) Entered as Reported by: Linh Cat on 08/11/21 1009 Last Action: Reviewed Trazodone HCl (Trazodone HCl) 50 Mg Tablet, 150 MG PO HS Prescribed by: FERN BAILEY on 12/05/21 1020 Venlafaxine HCl (Venlafaxine HCl ER) 150 Mg Cap.er.24h, 150 MG PO DAILY, (Reported) Entered as Reported by: TEJA PORTILLO on 08/12/21 1217 Last Action: Reviewed Zinc Amino Acid Chelate (Zinc) 50 Mg Tablet, 50 MG PO DAILY, (Reported) Entered as Reported by: TEJA PORTILLO on 08/12/21 1323 Last Action: Reviewed Discontinued Medications Buspirone HCl (Buspirone HCl) 5 Mg Tablet, 5 MG PO TID, (Reported) Entered as Reported by: Linh Cat on 08/11/21 1009 Last Action: Reviewed Diclofenac Sodium (Voltaren Arthritis Pain) 1 % Gel..gram., 1 APPLIC TP TID PRN for PAIN-SEE DOSE INSTRUCTIONS, (Reported) Discontinued Reason: No Longer Taking Entered as Reported by: TEJA PORTILLO on 08/12/21 1322 Last Action: Discontinued Furosemide (Furosemide) 40 Mg Tablet, 40 MG PO DAILY, (Reported) Entered as Reported by: Linh Cat on 08/11/21 1009 Last Action: Reviewed Melatonin (Melatonin) 3 Mg Tablet, 6 MG PO HS, (Reported) Entered as Reported by: TROY HAQUE on 12/03/21 1230 Last Action: Reviewed Melatonin/Pyridoxine HCl (B6) (Melatonin 3 mg Tablet) 3 Mg-10 Mg Tablet, 1 EACH PO HS, (Reported) Discontinued Reason: Duplicate Order Entered as Reported by: Linh Cat on 08/11/21 1009 Last Action: Discontinued Trazodone HCl (Trazodone HCl) 100 Mg Tablet, 100 MG PO HS, (Reported) Entered as Reported by: TROY HAQUE on 06/20/20 1407 Last Action: Reviewed Past Uiiuldk-Wsawga-Infghw Hx Patient Social History Smoking Status: Never a Smoker 2nd Hand Smoke Exposure: No Recent Hopitalizations: No Alcohol Use?: No Have you traveled recently?: No Immunizations Up To Date Tetanus Booster (TDap): Unknown Date of Pneumonia Vaccine: Feb 05, 2017 Date of Influenza Vaccine: Dec 21, 2019 Seasonal Allergies Seasonal Allergies: No Surgeries History of Surgeries: Yes (FOOT, bilat CTR, carotid endartectomy, bilat TKR) Surgeries: Orthopedic Respiratory History of Respiratory Disorde: Yes (CPAP - 3L NC O2 ) Respiratory Disorders: Asthma, Pneumonia, Sleep Apnea, COPD Cardiovascular History of Cardiac Disorders: Yes (STENT; CAROTID ENDARTERECTOMY) Cardiac Disorders: High Cholesterol, Hypertension Neurological History of Neurological Disord: Yes Neurological Disorders: Neuropathy 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 System Hx 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 Disorders: No Sexually Transmitted Disease: No HIV/AIDS: No 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 Genitourinary History of Genitourinary Disor: Yes Genitourinary Disorders: UTI-Chronic Gastrointestinal History of Gastrointestinal Di: Yes Gastrointestinal Disorders: Colitis, Gastroesophageal Reflux Musculoskeletal History of Musculoskeletal Dis: Yes (ARTHRITIS, spinal stenosis) Musculoskeletal Disorders: Degenerate Disk Disease, Arthritis Endocrine History of Endocrine Disorders: Yes Endocrine Disorders: Diabetes, Insulin dep HEENT History of HEENT Disorders: Yes (nosebleeds) Cancer History of Cancer: No Psychosocial History of Psychiatric Problem: Yes Behavioral Health Disorders: Anxiety, Depression Integumentary History of Skin or Integumenta: No Blood Transfusions History of Blood Disorders: Yes (ANEMIA) Adverse Reaction to a Blood Tr: No Family Medical History Significant Family History: Heart Disease, Cancer, Diabetes Family Medial History: Alzheimer's disease G8 SISTER Diabetes mellitus 19 FATHER Hypertension 19 FATHER 19 MOTHER Myocardial infarction 19 FATHER 19 MOTHER Neoplasm G8 SISTER Review of Systems-General Constitutional: No chills, No fever EENTM: No hearing loss, No blurred vision, No double vision Respiratory: No hemoptysis; short of breath Cardiovascular: No chest pain; edema Gastrointestinal: No constipation, No diarrhea, No nausea, No vomiting Genitourinary: No dysuria, No hematuria Musculoskeletal: back pain (States due to hospital bed), neck pain (States due to hospital bed) Skin: No change in color, No change in hair/nails Psychiatric/Neurological: Anxiety; Denies Weakness Physical Exam-General Problems Physical Exam Vital Signs Vital Signs - First Documented 12/02/21 12/02/21 14:26 19:06 Temp 36.9 Pulse 92 Resp 16 B/P (MAP) 134/59 (84) Pulse Ox 97 O2 Delivery Nasal Cannula O2 Flow Rate 4.00 FiO2 36 Capillary Refill : Less Than 3 Seconds General Appearance: WD/WN, no apparent distress, obese HEENT: PERRL/EOMI, pharynx normal Neck: non-tender, supple Respiratory: chest non-tender, no respiratory distress Cardiovascular: regular rate, rhythm, no murmur Gastrointestinal: non tender, soft Rectal: deferred Back: no CVA tenderness, no vertebral tenderness Extremities: non-tender, normal capillary refill Neurologic/Psychiatric: alert, oriented x 3 Skin: normal color, warm/dry Lymphatic: no adenopathy Data Review Labs Laboratory Tests 12/04/21 15:23: Glucometer 132H 12/04/21 20:50: Glucometer 120H 12/05/21 05:30: White Blood Count 8.9, Red Blood Count 3.33L, Hemoglobin 10.8L, Hematocrit 35, Mean Corpuscular Volume 105H, Mean Corpuscular Hemoglobin 32, Mean Corpuscular Hemoglobin Concent 31L, Red Cell Distribution Width 12.9, Platelet Count 177, Mean Platelet Volume 10.1, Immature Granulocyte % (Auto) 0, Neutrophils (%) (Auto) 80H, Lymphocytes (%) (Auto) 9L, Monocytes (%) (Auto) 6, Eosinophils (%) (Auto) 4, Basophils (%) (Auto) 1, Neutrophils # (Auto) 7.1, Lymphocytes # (Auto) 0.8L, Monocytes # (Auto) 0.5, Eosinophils # (Auto) 0.3, Basophils # (Auto) 0.1, Immature Granulocyte # (Auto) 0.0, Sodium Level 145, Potassium Level 4.0, Chloride Level 100, Carbon Dioxide Level 33H, Anion Gap 12, Blood Urea Nitrogen 27H, Creatinine 1.44H, Estimat Glomerular Filtration Rate 40, BUN/Creatinine Ratio 19, Glucose Level 91, Calcium Level 8.6, Corrected Calcium 9.2, Total Bilirubin 0.4, Aspartate Amino Transf (AST/SGOT) 14, Alanine Aminotransferase (ALT/SGPT) 13, Alkaline Phosphatase 106, Total Protein 6.6, Albumin 3.3 12/05/21 10:57: Glucometer 175H Assessment/Plan Assessment/Plan Assessment/Plan Venous insufficiency Acute on chronic respiratory failure CHF HTN Pulmonary HTN COPD Obesity DM Patient is being discharged today. Will schedule outpatient visit for port placement. MARILY PANDEY DO 12/05/21 1543: History of Present Illness History of Present Illness History of Present Illness Consult quested by Dr. Bailey for port placement. Patient is a 65-year-old female who has had multiple hospitalizations and has difficult venous access. Patient is being discharged home today but due to her improvement at this point she is being discharged but there is concerned that she is going to have multiple readmissions. Patient was mentioned having a port placed that she would like to have this discussed. Patient breathing has improved during this hospital stay. She is not having any chest pain nausea vomiting fever sweats chills. Allergies and Home Medications Allergies Coded Allergies: Penicillins (Verified Allergy, Unknown, 05/15/19) meperidine (Verified Allergy, Unknown, 09/06/19) morphine (Unverified Allergy, Unknown, 05/15/19) propoxyphene (Verified Allergy, Unknown, 05/15/19) topiramate (Verified Allergy, Unknown, 05/15/19) codeine (Verified Adverse Reaction, Unknown, UPSET STOMACH, 09/13/19) dapagliflozin (Verified Adverse Reaction, Unknown, yeast infection, 09/13/19) Patient Home Medication List Home Medication List Reviewed: Yes Acetaminophen (Tylenol Extra Strength) 500 Mg Tablet, 1,000 MG PO BID PRN for PAIN-MILD, (Reported) Entered as Reported by: MOODY FRANCO on 11/02/17 1632 Last Action: Reviewed Alprazolam (Alprazolam) 0.5 Mg Tablet, 0.5 MG PO BID PRN for ANXIETY Prescribed by: FERN BAILEY on 12/05/21 1020 Ascorbate Calcium (Vitamin C) 500 Mg Tablet, 500 MG PO DAILY, (Reported) Entered as Reported by: TEJA PORTILLO on 08/12/21 1323 Last Action: Reviewed Aspirin (Aspirin EC) 81 Mg Tablet.dr, 81 MG PO DAILY, (Reported) Entered as Reported by: MOODY FRANCO on 11/02/17 1632 Last Action: Reviewed Betamethasone/Propylene Glyc (Betamethasone Dp Aug 0.05% Crm) 0.05 % Cream..g., 1 APPLIC TOP BID, (Reported) Entered as Reported by: TROY HAQUE on 12/03/21 1230 Last Action: Reviewed Budesonide (Budesonide) 0.5 Mg/2 Ml Ampul.neb, 0.5 MG IH BID, (Reported) Entered as Reported by: TEJA PORTILLO on 08/12/21 1503 Last Action: Reviewed Buspirone HCl (Buspirone HCl) 7.5 Mg Tablet, 7.5 MG PO BID Prescribed by: FERN BAILEY on 12/05/21 1020 Cholecalciferol (Vitamin D3) (Vitamin D3) 125 Mcg (5000 Unit) Tablet, 125 MCG PO DAILY, (Reported) Entered as Reported by: TEJA PORTILLO on 08/12/21 1324 Last Action: Reviewed Formoterol Fumarate (Perforomist) 20 Mcg/2 Ml Vial.neb, 20 MCG IH BID, ( Reported) Entered as Reported by: TEJA PORTILLO on 08/12/21 1503 Last Action: Reviewed Furosemide (Lasix) 40 Mg Tablet, 40 MG PO BID Prescribed by: FERN BAILEY on 12/05/21 1020 Gabapentin (Neurontin) 300 Mg Capsule, 300 MG PO QID, (Reported) Entered as Reported by: TEJA PORTILLO on 08/12/21 1320 Last Action: Reviewed Insulin Aspart (Insulin Aspart Flexpen) 100 Unit/Ml (3 Ml) Insuln.pen, 6 UNIT SQ ACHS, (Reported) Entered as Reported by: Linh Cat on 08/11/21 1009 Last Action: Reviewed Insulin Degludec (Tresiba Flextouch U-200) 200 Unit/1 Ml Insuln.pen, 20 UNITS SC DAILY, (Reported) Entered as Reported by: MOODY FRANCO on 11/02/17 1632 Last Action: Reviewed Insulin Degludec (Tresiba Flextouch U-200) 200 Unit/Ml (3 Ml) Insuln.pen, 40 UNIT SQ HS, (Reported) Entered as Reported by: TEJA PORTILLO on 08/12/21 1319 Last Action: Reviewed Levothyroxine Sodium (Levothyroxine Sodium) 125 Mcg Tablet, 125 MCG PO DAILY, (Reported) Entered as Reported by: ALHAJI HORTA on 09/13/19 0833 Last Action: Reviewed Losartan Potassium (Losartan Potassium) 50 Mg Tablet, 50 MG PO DAILY, (Reported) Entered as Reported by: MOODY FRANCO on 11/02/17 1632 Last Action: Reviewed Melatonin (Melatonin) 3 Mg Tablet, 10 MG PO HS Prescribed by: FERN BAILEY on 12/05/21 1020 Metoprolol Succinate (Metoprolol Succinate) 25 Mg Tab.er.24h, 25 MG PO DAILY, (Reported) Entered as Reported by: MOODY FRANCO on 11/02/17 1632 Last Action: Reviewed Montelukast Sodium (Montelukast Sodium) 10 Mg Tablet, 10 MG PO HS, (Reported) Entered as Reported by: TROY HAQUE on 06/20/20 1407 Last Action: Reviewed Pantoprazole Sodium (Pantoprazole Sodium) 40 Mg Tablet.dr, 40 MG PO DAILY, (Reported) Entered as Reported by: ALHAJI HORTA on 09/13/19 0833 Last Action: Reviewed Potassium Chloride (Potassium Chloride) 10 Meq Tab.er.prt, 10 MEQ PO DAILY, (Reported) Entered as Reported by: TROY HAQUE on 06/20/20 1407 Last Action: Reviewed Promethazine HCl (Promethazine Tablet) 25 Mg Tablet, 25 MG PO Q6H PRN for NAUSEA/VOMITING-2ND LINE, (Reported) Entered as Reported by: TROY HAQUE on 12/03/21 1230 Last Action: Reviewed Revefenacin (Yupelri) 175 Mcg/3 Ml Vial.neb, 175 MCG IH 1200, (Reported) Entered as Reported by: TEJA PORTILLO on 08/12/21 1504 Last Action: Reviewed Sildenafil Citrate (Sildenafil) 20 Mg Tablet, 20 MG PO TID, (Reported) Entered as Reported by: Linh Cat on 08/11/21 1009 Last Action: Reviewed Simvastatin (Simvastatin) 10 Mg Tablet, 10 MG PO HS, (Reported) Entered as Reported by: Linh Cat on 08/11/21 1009 Last Action: Reviewed Trazodone HCl (Trazodone HCl) 50 Mg Tablet, 150 MG PO HS Prescribed by: FERN BAILEY on 12/05/21 1020 Venlafaxine HCl (Venlafaxine HCl ER) 150 Mg Cap.er.24h, 150 MG PO DAILY, (Reported) Entered as Reported by: TEJA PORTILLO on 08/12/21 1217 Last Action: Reviewed Zinc Amino Acid Chelate (Zinc) 50 Mg Tablet, 50 MG PO DAILY, (Reported) Entered as Reported by: TEJA PORTILLO on 08/12/21 1323 Last Action: Reviewed Discontinued Medications Buspirone HCl (Buspirone HCl) 5 Mg Tablet, 5 MG PO TID, (Reported) Entered as Reported by: Linh Cat on 08/11/21 1009 Last Action: Reviewed Diclofenac Sodium (Voltaren Arthritis Pain) 1 % Gel..gram., 1 APPLIC TP TID PRN for PAIN-SEE DOSE INSTRUCTIONS, (Reported) Discontinued Reason: No Longer Taking Entered as Reported by: TEJA PORTILLO on 08/12/21 1322 Last Action: Discontinued Furosemide (Furosemide) 40 Mg Tablet, 40 MG PO DAILY, (Reported) Entered as Reported by: Linh Cat on 08/11/21 1009 Last Action: Reviewed Melatonin (Melatonin) 3 Mg Tablet, 6 MG PO HS, (Reported) Entered as Reported by: TROY HAQUE on 12/03/21 1230 Last Action: Reviewed Melatonin/Pyridoxine HCl (B6) (Melatonin 3 mg Tablet) 3 Mg-10 Mg Tablet, 1 EACH PO HS, (Reported) Discontinued Reason: Duplicate Order Entered as Reported by: Linh Cat on 08/11/21 1009 Last Action: Discontinued Trazodone HCl (Trazodone HCl) 100 Mg Tablet, 100 MG PO HS, (Reported) Entered as Reported by: TROY HAQUE on 06/20/20 1407 Last Action: Reviewed Past Olfuwxo-Zjfjnd-Pbsiqw Hx Reviewed Nursing Assessment Reviewed/Agree w Nursing PMH: Yes Family Medical History Family Medial History: Alzheimer's disease G8 SISTER Diabetes mellitus 19 FATHER Hypertension 19 FATHER 19 MOTHER Myocardial infarction 19 FATHER 19 MOTHER Neoplasm G8 SISTER Review of Systems-General Constitutional: No chills, No fever EENTM: No hearing loss, No blurred vision, No double vision Respiratory: No hemoptysis; short of breath Cardiovascular: No chest pain; edema Gastrointestinal: No constipation, No diarrhea, No nausea, No vomiting Genitourinary: No dysuria, No hematuria Musculoskeletal: back pain (States due to hospital bed), neck pain (States due to hospital bed) Skin: No change in color, No change in hair/nails Psychiatric/Neurological: Anxiety; Denies Depressed, Denies Emotional Problems, Denies Weakness All Other Systems Reviewed Negative Unless Noted: Yes (Negative excepted noted.) Physical Exam-General Problems Physical Exam General Appearance: WD/WN, no apparent distress, obese HEENT: PERRL/EOMI, normal ENT inspection, pharynx normal Neck: non-tender, supple Respiratory: chest non-tender, no respiratory distress, no accessory muscle use Cardiovascular: regular rate, rhythm, no JVD Gastrointestinal: non tender, soft Rectal: deferred Back: no CVA tenderness, no vertebral tenderness Extremities: non-tender Neurologic/Psychiatric: alert, oriented x 3 Skin: normal color, warm/dry Lymphatic: no adenopathy Assessment/Plan Assessment/Plan Assessment/Plan Venous insufficiency Acute on chronic respiratory failure CHF HTN Pulmonary HTN COPD Obesity DM Patient with difficult venous access and has had multiple readmissions. Patient discussed risk and benefits of having port placement. She understands and wishes to proceed. Patient to be scheduled. This will be done Thursday as an outpatient since she is being discharged home today. Patient questions answered to her satisfaction. Supervisory-Addendum Brief Verification & Attestation Participated in pt care: history, MDM, physical Personally performed: exam, history, MDM, supervision of care Care discussed with: Medical Student Procedures: n/a Results interpretation: Verified all documentation Verification and Attestation of Medical Student E/M Service A medical student performed and documented this service in my presence. I reviewed and verified all information documented by the medical student and made modifications to such information, when appropriate. I personally performed the physical exam and medical decision making. Marily Pandey Dec 05, 2021,15:48 KAREN BLANK Dec 05, 2021 13:19 MARILY PANDEY DO Dec 05, 2021 15:43
[2021-12-05] MEDS ORDERED: RT-ALBUTEROL/IPRATROPIUM 3 ML (DUONEB) VIAL INH SCH (21:00)
== END 2021-12-05 13:25 | disposition home or self-care (01) | DRG 291 ==
LOC: EDUNIT# 14:26 → ER 14:27 → CSD 17:10 → 4TH 12-03 09:39
PROVIDERS: ADMIT Internal Medicine; ATTEND Internal Medicine
DX: I13.0 Hypertensive heart and chronic kidney disease with heart failure and stage 1 through stage 4 chronic kidney disease, or unspecified chronic kidney disease (principal); I50.33 Acute on chronic diastolic (congestive) heart failure; J96.21 Acute and chronic respiratory failure with hypoxia; J96.22 Acute and chronic respiratory failure with hypercapnia; N17.9 Acute kidney failure, unspecified; Z68.41 Body mass index [BMI] 40.0-44.9, adult; L03.116 Cellulitis of left lower limb; Z66 Do not resuscitate; E11.22 Type 2 diabetes mellitus with diabetic chronic kidney disease; N18.31 Chronic kidney disease, stage 3a; I42.9 Cardiomyopathy, unspecified; I25.10 Atherosclerotic heart disease of native coronary artery without angina pectoris; E78.2 Mixed hyperlipidemia; I05.0 Rheumatic mitral stenosis; E11.40 Type 2 diabetes mellitus with diabetic neuropathy, unspecified; K21.9 Gastro-esophageal reflux disease without esophagitis; E03.9 Hypothyroidism, unspecified; F41.9 Anxiety disorder, unspecified; F32.A Depression, unspecified; I27.20 Pulmonary hypertension, unspecified; E66.01 Morbid (severe) obesity due to excess calories; D64.9 Anemia, unspecified; G47.00 Insomnia, unspecified; I87.8 Other specified disorders of veins; Z79.4 Long term (current) use of insulin; Z99.81 Dependence on supplemental oxygen; Z79.82 Long term (current) use of aspirin; Z88.5 Allergy status to narcotic agent; Z88.0 Allergy status to penicillin; Z88.8 Allergy status to other drugs, medicaments and biological substances; Z95.5 Presence of coronary angioplasty implant and graft; Z96.653 Presence of artificial knee joint, bilateral; Z23 Encounter for immunization
CPT/HCPCS: 36415; 36600; 51702; 71045; 71046; 80053; 80061; 82607; 82746; 82805; 82947; 83735; 83874; 83880; 84484; 85025; 85610; 85730; 90686; 93005; 93041; 94640; 94760; 96374

== ENCOUNTER 2021-12-09 05:56 | Outpatient (CLI) | payer MEDICARE, OTHER ==
[~2021-12-09] VITALS: Ht 162.6 cm; Wt 109.1 kg
[~2021-12-09 05:56] MED LIST changes: +ALPR0.5T7 PO; +BETA15CR14 TOP; +BUSP7.5T5 PO; +FURO-124 PO; +MELA3TAB39 PO
== END 2021-12-09 14:25 | disposition home or self-care (01) ==
LOC: PREOP 05:56
PROVIDERS: ATTEND Surgery
DX: Z01.818 Encounter for other preprocedural examination (principal)

== ENCOUNTER 2021-12-11 05:59 | Day surgery (SDC) | payer MEDICARE, OTHER ==
[2021-12-11] VITALS (8 sets, daily range): BP systolic 94–119; BP diastolic 51–76
[~2021-12-11] VITALS: Ht 162 cm; Wt 109.1 kg
[2021-12-11] MEDS ORDERED: CLINDAMYCIN 600 MG/50 ML IVPB 50 ML IV ONE (06:45)
[2021-12-11] MEDS ORDERED: LACTATED RINGERS 1,000 ML IV PRN (06:45)
[2021-12-11] MEDS ORDERED: PROPOFOL INJECTION 50 ML IV ONE (07:17)
[2021-12-11] MEDS ORDERED: MIDAZOLAM 2 MG/2 ML (VERSED) VIAL ONE (07:17)
[2021-12-11] MEDS ORDERED: 0.9% SODIUM CHLORIDE PF INJ 20 ML VIAL ONE (07:21)
[2021-12-11] MEDS ORDERED: HEParin (CENTRAL IV FLUSH) 500 UNIT/5 ML SYR ONE (07:22)
[2021-12-11] MEDS ORDERED: LIDOCAINE/EPI 2% 1:200,00 (XYLOCAINE) 10 ML VIAL ONE (07:22)
--- NOTE | 2021-12-11 07:49 | Progress Note-Pre Operative ---
Pre-Operative Progress Note Date of Available H&P: Dec 05, 2021 Date H&P Reviewed: Dec 11, 2021 Time H&P Reviewed: 07:40 History & Physical: H&P Reviewed, Patient Examed, No changes noted Pre-Operative Diagnosis: venous insuffiency MARILY PANDEY DO Dec 11, 2021 07:48
[2021-12-11] MEDS ORDERED: PHENYLEPHRINE INJ 10 MG/ML (FOR PYXIS KITS ONLY) ONE (08:24)
--- NOTE | 2021-12-11 08:50 | Anesthesia-General Post-Op ---
MAC Patient Condition Mental Status/LOC: Same as Preop Cardiovascular: Satisfactory Nausea/Vomiting: Absent Respiratory: Satisfactory Pain: Controlled Complications: Absent Post Op Complications Complications None Follow Up Care/Instructions Patient Instructions None needed. Anesthesiology Discharge Order Discharge Order Patient is doing well, no complaints, stable vital signs, no apparent adverse anesthesia problems. No complications reported per nursing. ENRIQUE GALVAN CRNA Dec 11, 2021 08:50
--- NOTE | 2021-12-11 09:03 | Diagnostic Imaging Report ---
INDICATION: Fluoroscopy for port placement. FINDINGS: Fluoroscopy was provided in the OR during port placement. 20 seconds of fluoroscopic time was utilized. A single image was obtained demonstrating a right sided port tip overlying the SVC. IMPRESSION: Fluoroscopy for port placement. Dictated by: Dictated on workstation # [id number]
--- NOTE | 2021-12-11 09:10 | Diagnostic Imaging Report ---
INDICATION: Postop Port-A-Cath placement. TECHNIQUE/COMPARISON: A frontal chest was obtained at 8:50 AM and compared to 12/04/2021. FINDINGS: There is cardiomegaly and central vascular congestion. There is a new Port-A-Cath device over the right chest with the catheter entering the right internal jugular vein and the tip overlying the upper SVC. There is no pneumothorax or pleural fluid following device placement. There is no focal infiltrate. IMPRESSION: Cardiomegaly with central vascular congestion. New right-sided Port-A-Cath with no pneumothorax or pleural fluid following device placement. Dictated by: Dictated on workstation # [id number]
--- NOTE | 2021-12-11 10:30 | Progress Note-Post Operative ---
Post-Operative Progess Note Surgeon (s)/Network Security Administrator (s) Surgeon MARILY PANDEY DO Network Security Administrator: na Pre-Operative Diagnosis venous insuffiency Post-Operative Diagnosis same Procedure & Operative Findings Date of Procedure 12/11/21 Procedure Performed/Findings PROCEDURE: Right internal jugular port placement using ultrasound guidance. COMPLICATIONS: None. INDICATIONS: The patient is a 66 year old female with venous insufficiency. Patient understands the risks and benefits of port placement and wished to proceed with the procedure. Consent was signed on the chart. PROCEDURE: The patient was taken to the operating suite, was prepped and draped in the sterile fashion. A surgical pause was performed. Ultrasound was used to locate the internal jugular vein. Once located anesthetic was infiltrated above it. Using micro-access kit, the right internal vein was accessed. Dark nonpulsatile blood was withdrawn. The wire was inserted. Fluoroscopy assured proper placement. The needle was removed. The micro-access dilator was advanced over the wire and the wire was removed. The regular wire was inserted and fluoroscopy assured proper placement. The wire was then secured. Local anesthetic was used to anesthetize from the neck for tunneling down to the right chest and for pocket creation. A 15 blade scalpel was used to make an incision over the right chest. Cautery was used to dissect down to the pectoral fascia. A pocket was created with blunt dissection. The dilator sheath was then advanced over the wire under fluoroscopy and the dilator and wire were removed. The Groshong catheter was inserted through the sheath and the sheath was then removed. The Groshong wire was removed. The catheter was then tunneled to the right chest pocket. Fluoroscopy was used to cut to length and this was then attached to the port which was then placed within the pocket. The port was then accessed without difficulty. It was then flushed with saline and then heparin. The subcutaneous tissues were then reapproximated using 3-0 Vicryl. The areas were then washed and dried. Skin Affix was placed over incision. The insertion point of the neck Skin Affix was placed over the incision. The patient tolerated the procedure well without complication and was taken to recovery room in stable condition. Chest x-ray is pending. Anesthesia Type mac c local Estimated Blood Loss Estimated blood loss (mL): min Specimens/Packing Specimens Removed MARILY Urias DO Dec 11, 2021 10:30
== END 2021-12-11 10:10 | disposition home or self-care (01) ==
LOC: SDC 05:59
PROVIDERS: ATTEND Surgery
DX: I87.2 Venous insufficiency (chronic) (peripheral) (principal); E66.01 Morbid (severe) obesity due to excess calories; Z68.41 Body mass index [BMI] 40.0-44.9, adult; J44.9 Chronic obstructive pulmonary disease, unspecified; E11.22 Type 2 diabetes mellitus with diabetic chronic kidney disease; Z99.81 Dependence on supplemental oxygen; I13.0 Hypertensive heart and chronic kidney disease with heart failure and stage 1 through stage 4 chronic kidney disease, or unspecified chronic kidney disease; G47.33 Obstructive sleep apnea (adult) (pediatric); I50.33 Acute on chronic diastolic (congestive) heart failure; J96.21 Acute and chronic respiratory failure with hypoxia; N18.31 Chronic kidney disease, stage 3a; I27.20 Pulmonary hypertension, unspecified; I34.2 Nonrheumatic mitral (valve) stenosis; E78.2 Mixed hyperlipidemia; D63.1 Anemia in chronic kidney disease; F41.9 Anxiety disorder, unspecified; Z79.82 Long term (current) use of aspirin; Z79.4 Long term (current) use of insulin; Z79.899 Other long term (current) drug therapy; Z79.890 Hormone replacement therapy
CPT/HCPCS: 36561; 71045; 76000; 82947; 87081; C1788

== ENCOUNTER 2021-12-23 14:00 | Emergency (ER) | payer MEDICARE, OTHER ==
[2021-12-23] MEDS ORDERED: LORazepam 0.5 MG (ATIVAN) TABLET PO STA (14:12)
[2021-12-23] MEDS ORDERED: KETOROLAC 30 MG/ML VIAL IVP ONE (14:15)
[2021-12-23 14:28] LABS: BASOPHILS # (AUTO) 0.1 10^3/uL (0.0-0.1); BASOPHILS % (AUTO) 1 % (0-10); EOSINOPHILS # (AUTO) 0.2 10^3/uL (0.0-0.3); EOSINOPHILS % (AUTO) 2 % (0-10); HEMATOCRIT 33 % (35-52); HEMOGLOBIN 10.2 g/dL (11.5-16.0); LYMPHOCYTES # (AUTO) 1.2 X 10^3 (1.0-4.0); LYMPHOCYTES % (AUTO) 11 % (12-44); MEAN CORPUSCULAR HEMOGLOBIN 33 pg (25-34); MEAN CORPUSCULAR HGB CONC 31 g/dL (32-36); MEAN CORPUSCULAR VOLUME 107 fL (80-99); MEAN PLATELET VOLUME 10.3 fL (9.0-12.2); MONOCYTES # (AUTO) 0.5 X 10^3 (0.0-1.0); MONOCYTES % (AUTO) 5 % (0-12); NEUTROPHILS # (AUTO) 8.5 X 10^3 (1.8-7.8); NEUTROPHILS % (AUTO) 81 % (42-75); PLATELET COUNT 190 10^3/uL (130-400); WHITE BLOOD COUNT 10.5 10^3/uL (4.3-11.0)
[2021-12-23 14:31] LABS: ALBUMIN 3.6 GM/DL (3.2-4.5); POTASSIUM 4.8 MMOL/L (3.6-5.0)
[2021-12-23 14:33] LABS: CALCIUM 8.4 MG/DL (8.5-10.1)
[2021-12-23 14:34] LABS: TOTAL PROTEIN 6.9 GM/DL (6.4-8.2)
--- NOTE | 2021-12-23 14:34 | ED General ---
General Chief Complaint: Neurological Problems Stated Complaint: LT SIDE NUMBNESS/DIZZINESS Nursing Triage Note: PT ARRIVAL TO ER WITH COMPLAINT OF LEFT LEG PAIN, LEFT FACIAL NUMBNESS. NO OTHER SYMPTOMS. STARTED 0900 THIS AM. Source of Information: Patient Exam Limitations: No Limitations History of Present Illness Date Seen by Provider: Dec 23, 2021 Time Seen by Provider: 14:27 Initial Comments LeftPatient is a 66-year-old female to ER with chief complaint of left facial numbness and left leg pain. Patient reports noticing symptoms at around 9:00 this morning after completing cardio rehab therapy. Lower leg pain is made worse with palpation. Timing/Duration: 4-6 Hours Severity: Mild Associated Systoms: Denies Symptoms Allergies and Home Medications Allergies Coded Allergies: Penicillins (Verified Allergy, Unknown, VOMITING, 12/09/21) meperidine (Verified Allergy, Unknown, VOMITING, 12/09/21) morphine (Unverified Allergy, Unknown, RASH, BREATHING DIFFICULTY, 12/09/21) propoxyphene (Verified Allergy, Unknown, 12/09/21) topiramate (Verified Allergy, Unknown, LOSS OF EYESIGHT, 12/09/21) codeine (Verified Adverse Reaction, Unknown, UPSET STOMACH, 12/09/21) dapagliflozin (Verified Adverse Reaction, Unknown, yeast infection, 12/09/21) Patient Home Medication List Home Medication List Reviewed: Yes Acetaminophen (Tylenol Extra Strength) 500 Mg Tablet, 1,000 MG PO BID PRN for PAIN-MILD, (Reported) Entered as Reported by: MOODY FRANCO on 11/02/17 1632 Alprazolam (Alprazolam) 0.5 Mg Tablet, 0.5 MG PO BID PRN for ANXIETY Prescribed by: FERN BAILEY on 12/05/21 1020 Ascorbate Calcium (Vitamin C) 500 Mg Tablet, 500 MG PO DAILY, (Reported) Entered as Reported by: TEJA PORTILLO on 08/12/21 1323 Aspirin (Aspirin EC) 81 Mg Tablet.dr, 81 MG PO DAILY, (Reported) Entered as Reported by: MOODY FRANCO on 11/02/17 1632 Betamethasone/Propylene Glyc (Betamethasone Dp Aug 0.05% Crm) 0.05 % Cream..g., 1 APPLIC TOP BID, (Reported) Entered as Reported by: TROY HAQUE on 12/03/21 1230 Budesonide (Budesonide) 0.5 Mg/2 Ml Ampul.neb, 0.5 MG IH BID, (Reported) Entered as Reported by: TEJA PORTILLO on 08/12/21 1503 Buspirone HCl (Buspirone HCl) 7.5 Mg Tablet, 7.5 MG PO BID Prescribed by: FERN BAILEY on 12/05/21 1020 Cholecalciferol (Vitamin D3) (Vitamin D3) 125 Mcg (5000 Unit) Tablet, 125 MCG PO DAILY, (Reported) Entered as Reported by: TEJA PORTILLO on 08/12/21 1324 Formoterol Fumarate (Perforomist) 20 Mcg/2 Ml Vial.neb, 20 MCG IH BID, (Reported) Entered as Reported by: TEJA PORTILLO on 08/12/21 1503 Furosemide (Lasix) 40 Mg Tablet, 40 MG PO BID Prescribed by: FERN BAILEY on 12/05/21 1020 Gabapentin (Neurontin) 300 Mg Capsule, 300 MG PO QID, (Reported) Entered as Reported by: TEJA PORTILLO on 08/12/21 1320 Insulin Aspart (Insulin Aspart Flexpen) 100 Unit/Ml (3 Ml) Insuln.pen, 6 UNIT SQ ACHS, (Reported) Entered as Reported by: Linh Cat on 08/11/21 1009 Insulin Degludec (Tresiba Flextouch U-200) 200 Unit/1 Ml Insuln.pen, 20 UNITS SC DAILY, (Reported) Entered as Reported by: MOODY FRANCO on 11/02/17 1632 Insulin Degludec (Tresiba Flextouch U-200) 200 Unit/Ml (3 Ml) Insuln.pen, 40 UNIT SQ HS, (Reported) Entered as Reported by: TEJA PORTILLO on 08/12/21 1319 Levothyroxine Sodium (Levothyroxine Sodium) 125 Mcg Tablet, 125 MCG PO DAILY, (Reported) Entered as Reported by: ALHAJI HORTA on 09/13/19 0833 Losartan Potassium (Losartan Potassium) 50 Mg Tablet, 50 MG PO DAILY, (Reported) Entered as Reported by: MOODY FRANCO on 11/02/17 1632 Melatonin (Melatonin) 3 Mg Tablet, 10 MG PO HS Prescribed by: FERN BAILEY on 12/05/21 1020 Metoprolol Succinate (Metoprolol Succinate) 25 Mg Tab.er.24h, 25 MG PO DAILY, (Reported) Entered as Reported by: MOODY FRANCO on 11/02/17 1632 Montelukast Sodium (Montelukast Sodium) 10 Mg Tablet, 10 MG PO HS, (Reported) Entered as Reported by: TROY HAQUE on 06/20/20 1407 Pantoprazole Sodium (Pantoprazole Sodium) 40 Mg Tablet.dr, 40 MG PO DAILY, (Reported) Entered as Reported by: ALHAJI HORTA on 09/13/19 0833 Potassium Chloride (Potassium Chloride) 10 Meq Tab.er.prt, 10 MEQ PO DAILY, (Reported) Entered as Reported by: TROY HAQUE on 06/20/20 1407 Promethazine HCl (Promethazine Tablet) 25 Mg Tablet, 25 MG PO Q6H PRN for NAUSEA/VOMITING-2ND LINE, (Reported) Entered as Reported by: TROY HAQUE on 12/03/21 1230 Revefenacin (Yupelri) 175 Mcg/3 Ml Vial.neb, 175 MCG IH 1200, (Reported) Entered as Reported by: TEJA PORTILLO on 08/12/21 1504 Sildenafil Citrate (Sildenafil) 20 Mg Tablet, 20 MG PO TID, (Reported) Entered as Reported by: Linh Cat on 08/11/21 1009 Simvastatin (Simvastatin) 10 Mg Tablet, 10 MG PO HS, (Reported) Entered as Reported by: Linh Cat on 08/11/21 1009 Trazodone HCl (Trazodone HCl) 50 Mg Tablet, 150 MG PO HS Prescribed by: FERN BAILEY on 12/05/21 1020 Venlafaxine HCl (Venlafaxine HCl ER) 150 Mg Cap.er.24h, 150 MG PO DAILY, (Reported) Entered as Reported by: TEJA PORTILLO on 08/12/21 1217 Zinc Amino Acid Chelate (Zinc) 50 Mg Tablet, 50 MG PO DAILY, (Reported) Entered as Reported by: TEJA PORTILLO on 08/12/21 1323 Review of Systems Review of Systems Constitutional: no symptoms reported; No fever EENTM: No blurred vision, No double vision, No eye pain, No vision loss Musculoskeletal: muscle pain, other (Left lower extremity pain) Past Yjbeode-Lvqpsz-Axokhj Hx Patient Social History Tobacco Use?: No Use of E-Cig and/or Vaping dev: No Substance use?: No Alcohol Use?: No Pt feels they are or have been: No Immunizations Up To Date Tetanus Booster (TDap): Unknown Influenza Vaccine Up-to-Date: Yes; Up-to-Date First/Initial COVID19 Vaccinat: 2020 Second COVID19 Vaccination Trey: 2020 Third COVID19 Vaccination Date: 2020 Seasonal Allergies Seasonal Allergies: No Past Medical History Surgeries: Yes (FOOT, bilat CTR, carotid endartectomy, bilat TKR) Appendectomy, Gallbladder, Orthopedic, Thyroidectomy Respiratory: Yes (CPAP - 4L NC O2, DAYTIME O2 4L) Asthma, Pneumonia, Sleep Apnea, COPD Currently Using CPAP: No Currently Using BIPAP: No Cardiac: Yes (STENT; CAROTID ENDARTERECTOMY, CHF, MITRAL STENOSIS,PULMONARY HTN) High Cholesterol, Hypertension Neurological: Yes Neuropathy 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 Disorders: No Female 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 Disorders: Denies 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 Sexually Transmitted Disease: No HIV/AIDS: No Genitourinary: Yes UTI-Chronic Gastrointestinal: Yes Colitis, Gastroesophageal Reflux, Chronic Constipation, Hemorrhoids, Gall Bladder Disease Musculoskeletal: Yes (ARTHRITIS, spinal stenosis) Degenerate Disk Disease, Arthritis Endocrine: Yes Diabetes, Insulin dep, Hypothyroidsim HEENT: Yes (nosebleeds) Loss of Vision: Denies Hearing Impairment: Denies Cancer: No Psychosocial: Yes Anxiety, Depression Integumentary: Yes (RASH) Blood Disorders: Yes (ANEMIA) Adverse Reaction/Blood Tranf: No Family Medical History Alzheimer's disease G8 SISTER Diabetes mellitus 19 FATHER Hypertension 19 FATHER 19 MOTHER Myocardial infarction 19 FATHER 19 MOTHER Neoplasm G8 SISTER Heart Disease, Cancer, Diabetes Noncontributory Physical Exam Vital Signs Vital Signs - First Documented 12/23/21 14:03 Temp 36.6 Pulse 83 Resp 20 B/P (MAP) 112/66 (81) Pulse Ox 97 Capillary Refill : Less Than 3 Seconds Height, Weight, BMI Height: 5'4.00" Weight: 246lbs. 6.0oz. [id number]; 41.57 BMI Method:Stated General Appearance: Anxious; No Severe Distress Eyes: Bilateral Eye Normal Inspection HEENT: PERRL/EOMI, Moist Mucous Membranes Neck: Supple; No JVD Respiratory: Lungs Clear, Normal Breath Sounds; No Accessory Muscle Use Cardiovascular: Regular Rate, Rhythm; No No Edema Gastrointestinal: Normal Bowel Sounds, Non Tender, Soft Neurologic/Psychiatric: Alert, Oriented x3; No Facial Droop, No Motor Weakness; Sensory Deficit (reports decreased sensation to left face) Skin: Warm/Dry; No Diaphoresis Progress/Results/Core Measures Suspected Sepsis SIRS Temperature: Pulse: 83 Respiratory Rate: 20 Laboratory Tests 12/23/21 14:24: White Blood Count 10.5 Blood Pressure 112 /66 Mean: 81 Laboratory Tests 12/23/21 14:24: Creatinine 1.60H, Platelet Count 190, Total Bilirubin 0.3 Results/Orders Lab Results Laboratory Tests Test 12/23/21 14:24 12/23/21 15:35 Range/Units White Blood Count 10.5 4.3-11.0 10^3/uL Red Blood Count 3.11 L 3.80-5.11 10^6/uL Hemoglobin 10.2 L 11.5-16.0 g/dL Hematocrit 33 L 35-52 % Mean Corpuscular Volume 107 H 80-99 fL Mean Corpuscular Hemoglobin 33 25-34 pg Mean Corpuscular Hemoglobin Concent 31 L 32-36 g/dL Red Cell Distribution Width 13.2 10.0-14.5 % Platelet Count 190 130-400 10^3/uL Mean Platelet Volume 10.3 9.0-12.2 fL Immature Granulocyte % (Auto) 0 % Neutrophils (%) (Auto) 81 H 42-75 % Lymphocytes (%) (Auto) 11 L 12-44 % Monocytes (%) (Auto) 5 0-12 % Eosinophils (%) (Auto) 2 0-10 % Basophils (%) (Auto) 1 0-10 % Neutrophils # (Auto) 8.5 H 1.8-7.8 X 10^3 Lymphocytes # (Auto) 1.2 1.0-4.0 X 10^3 Monocytes # (Auto) 0.5 0.0-1.0 X 10^3 Eosinophils # (Auto) 0.2 0.0-0.3 10^3/uL Basophils # (Auto) 0.1 0.0-0.1 10^3/uL Immature Granulocyte # (Auto) 0.0 0.0-0.1 10^3/uL Sodium Level 135 135-145 MMOL/L Potassium Level 4.8 3.6-5.0 MMOL/L Chloride Level 98 98-107 MMOL/L Carbon Dioxide Level 28 21-32 MMOL/L Anion Gap 9 5-14 MMOL/L Blood Urea Nitrogen 41 H 7-18 MG/DL Creatinine 1.60 H 0.60-1.30 MG/DL Estimat Glomerular Filtration Rate 35 BUN/Creatinine Ratio 26 Glucose Level 204 H 70-105 MG/DL Calcium Level 8.4 L 8.5-10.1 MG/DL Corrected Calcium 8.7 8.5-10.1 MG/DL Total Bilirubin 0.3 0.1-1.0 MG/DL Aspartate Amino Transf (AST/SGOT) 25 5-34 U/L Alanine Aminotransferase (ALT/SGPT) 25 0-55 U/L Alkaline Phosphatase 126 40-136 U/L Total Protein 6.9 6.4-8.2 GM/DL Albumin 3.6 3.2-4.5 GM/DL Urine Color YELLOW Urine Clarity CLEAR Urine pH 5.0 5-9 Urine Specific Proctor 1.020 1.016-1.022 Urine Protein NEGATIVE NEGATIVE Urine Glucose (UA) NEGATIVE NEGATIVE Urine Ketones NEGATIVE NEGATIVE Urine Nitrite NEGATIVE NEGATIVE Urine Bilirubin NEGATIVE NEGATIVE Urine Urobilinogen 0.2 < = 1.0 MG/DL Urine Leukocyte Esterase NEGATIVE NEGATIVE Urine RBC (Auto) NEGATIVE NEGATIVE Urine RBC NONE /HPF Urine WBC RARE /HPF Urine Squamous Epithelial Cells 0-2 /HPF Urine Crystals PRESENT H /LPF Urine Amorphous Sediment RARE MICHELET URATES H /LPF Urine Bacteria NEGATIVE /HPF Urine Casts PRESENT /LPF Urine Hyaline Casts 5-10 H /LPF Urine Mucus NEGATIVE /LPF Urine Culture Indicated NO My Orders Orders - MAGDY ZIEGLER APRN Us Venous Lower Ext Lt (12/23/21 14:12) Cbc With Automated Diff (12/23/21 14:12) Comprehensive Metabolic Panel (12/23/21 14:12) Urinalysis (12/23/21 14:12) Ketorolac Injection (Toradol Injection) (12/23/21 14:15) Lorazepam Tablet (Ativan Tablet) (12/23/21 14:12) Ns Iv 500 Ml (Sodium Chloride 0.9%) (12/23/21 15:00) Medications Given in ED Current Medications Medications Dose Ordered Sig/Katrina Route Start Time Stop Time Status Last Admin Dose Admin Ketorolac Tromethamine 15 mg ONCE ONCE IVP 12/23/21 14:15 12/23/21 14:19 DC 12/23/21 14:47 15 MG Vital Signs/I&O 12/23/21 12/23/21 14:03 16:28 Temp 36.6 36.6 Pulse 83 81 Resp 20 20 B/P (MAP) 112/66 (81) 127/76 Pulse Ox 97 97 Capillary Refill : Less Than 3 Seconds Blood Pressure Mean: 81 Progress Note : Time: 16:02 Departure Impression Primary Impression: Muscle strain of left lower extremity Additional Impressions: Facial paresthesia Anxiety Disposition: HOME, SELF-CARE Condition: Stable Departure-Patient Inst. Decision time for Depature: 15:43 Referrals: FERN BAILEY DO (PCP/Family) Primary Care Physician Patient Instructions: Muscle Strain ED Add. Discharge Instructions: May use compression ice and elevation for left lower extremity pain. Tylenol as needed. Follow-up with primary care in 3 to 5 days All discharge instructions reviewed with patient and/or family. Voiced understanding. MAGDY ZIEGLER ASSOCIATE PROFESSOR OF LITERACY Dec 23, 2021 14:34
[2021-12-23 14:36] LABS: BILIRUBIN,TOTAL 0.3 MG/DL (0.1-1.0)
[2021-12-23 14:37] LABS: CREATININE SERUM 1.6 MG/DL (0.60-1.30)
[2021-12-23] MEDS ORDERED: NS IV 500 ML 500 ML IV SCH (15:00)
[2021-12-23 15:44] LABS: BILIRUBIN,URINE NEGATIVE (NEGATIVE); CLARITY,URINE CLEAR; COLOR,URINE YELLOW; GLUCOSE, URINE (UA) NEGATIVE (NEGATIVE); KETONES,URINE NEGATIVE (NEGATIVE); LEUKOCYTE ESTERASE ,URINE NEGATIVE (NEGATIVE); NITRITE,URINE NEGATIVE (NEGATIVE); PROTEIN,URINE NEGATIVE (NEGATIVE)
--- NOTE | 2021-12-23 15:45 | Diagnostic Imaging Report ---
PROCEDURE: US left lower extremity venous. TECHNIQUE: Multiple real-time grayscale images were obtained over the left lower extremity in various projections. Additional duplex Doppler and color Doppler images were also obtained. INDICATION: Left leg pain. FINDINGS: There is no evidence of left lower extremity DVT. Left lower extremity deep venous system shows normal compressibility with normal response to augmentation and Valsalva. No fluid collection or mass is detected. IMPRESSION: No evidence of left lower extremity DVT. Dictated by: Dictated on workstation # [id number]
[2021-12-23 15:52] LABS: BACTERIA,URINE NEGATIVE /HPF; SQUAMOUS EPITHELIAL CELL,UR 0-2 /HPF; WBC,URINE RARE /HPF
[2021-12-23 15:53] LABS: AMORPHOUS SEDIMENT,UR RARE AMOR URATES /LPF
[2021-12-23 16:28] VITALS: BP 127/76
== END 2021-12-23 16:28 | disposition home or self-care (01) ==
LOC: EDUNIT# 14:00 → ER 14:02
DX: S86.912A Strain of unspecified muscle(s) and tendon(s) at lower leg level, left leg, initial encounter (principal); F41.9 Anxiety disorder, unspecified; R20.2 Paresthesia of skin; E11.40 Type 2 diabetes mellitus with diabetic neuropathy, unspecified; J44.9 Chronic obstructive pulmonary disease, unspecified; G47.30 Sleep apnea, unspecified; Z99.81 Dependence on supplemental oxygen; Z99.89 Dependence on other enabling machines and devices; Z79.4 Long term (current) use of insulin; X58.XXXA Exposure to other specified factors, initial encounter
CPT/HCPCS: 36415; 80053; 81000; 85025

== ENCOUNTER 2022-01-02 16:30 | Inpatient (IN) | payer MEDICARE, OTHER ==
[~2022-01-02] VITALS: Ht 162.6 cm; Wt 124.2 kg
[~2022-01-02 16:30] MED LIST changes: +ALBU8.5H6 IH
[2022-01-02] MEDS ORDERED: polyethylene glycoL POWDER 17 GM (MIRALAX) PACK PO PRN (17:00)
[2022-01-02] MEDS ORDERED: BISACODYL 10 MG SUPP (DULCOLAX) PR PRN (17:00)
[2022-01-02] MEDS ORDERED: ONDANSETRON 4 MG (ZOFRAN) ORAL DISSOLVE TAB PO PRN (17:00)
[2022-01-02] MEDS ORDERED: MILK OF MAGNESIA 400 MG/5 ML 30 ML UDC PO PRN (17:00)
[2022-01-02] MEDS ORDERED: CALCIUM CARBONATE 500 MG (TUMS) TAB.CHEW PO PRN (17:00)
[2022-01-02] MEDS ORDERED: LACTULOSE SYRUP 10GM/15ML (ENULOSE) 30ML UDC PO PRN (17:00)
[2022-01-02] MEDS ORDERED: diphenhydrAMINE 50 MG/ML INJ (BENADRYL) IVP PRN (17:00)
[2022-01-02] MEDS ORDERED: ANTACID SUSP 30 ML UDC (MYLANTA) PO PRN (17:00)
[2022-01-02] MEDS ORDERED: MELATONIN 3 MG TABLET PO PRN (17:00)
[2022-01-02] MEDS ORDERED: ONDANSETRON 4 MG/2 ML (SDV) Z0FRAN IV PRN (17:00)
[2022-01-02] MEDS ORDERED: HYDROmorphone 2 MG/ML VIAL (DILAUDID) IV PRN (17:00)
[2022-01-02] MEDS ORDERED: diphenhydrAMINE 25 MG TAB (BENADRYL) PO PRN (17:00)
[2022-01-02 17:24] VITALS: BP 128/56
[2022-01-02 17:36] LABS: BASOPHILS # (AUTO) 0.1 10^3/uL (0.0-0.1); BASOPHILS % (AUTO) 1 % (0-10); EOSINOPHILS # (AUTO) 0.2 10^3/uL (0.0-0.3); EOSINOPHILS % (AUTO) 2 % (0-10); HEMATOCRIT 34 % (35-52); HEMOGLOBIN 10.1 g/dL (11.5-16.0); LYMPHOCYTES # (AUTO) 0.9 10^3/uL (1.0-4.0); LYMPHOCYTES % (AUTO) 9 % (12-44); MEAN CORPUSCULAR HEMOGLOBIN 32 pg (25-34); MEAN CORPUSCULAR HGB CONC 30 g/dL (32-36); MEAN CORPUSCULAR VOLUME 106 fL (80-99); MEAN PLATELET VOLUME 9.9 fL (9.0-12.2); MONOCYTES # (AUTO) 0.4 10^3/uL (0.0-1.0); MONOCYTES % (AUTO) 4 % (0-12); NEUTROPHILS # (AUTO) 8.1 10^3/uL (1.8-7.8); NEUTROPHILS % (AUTO) 84 % (42-75); PLATELET COUNT 152 10^3/uL (130-400); WHITE BLOOD COUNT 9.7 10^3/uL (4.3-11.0)
--- NOTE | 2022-01-02 17:42 | Diagnostic Imaging Report ---
INDICATION: Hypoxia. COMPARISON: 12/11/2021. FINDINGS: There is a right internal jugular port. There is stable enlargement of the cardiac silhouette. There is persistent abnormal prominence of the central pulmonary vascularity. There is some increased fluid within the minor fissure. There may be small effusions. There is no pneumothorax or dense airspace consolidation. IMPRESSION: Enlarged cardiac silhouette with pulmonary vascular prominence, fluid within the minor fissure, and possible small effusions. The features suggest pulmonary edema. There is no dense alveolar consolidation to suggest pneumonia. Dictated by: Dictated on workstation # [id number]
[2022-01-02] MEDS ORDERED: FUROSEMIDE 40 MG/4 ML INJ (LASIX) IVP NR (17:45)
[2022-01-02 17:50] LABS: ALBUMIN 3.4 GM/DL (3.2-4.5); POTASSIUM 4.6 MMOL/L (3.6-5.0)
[2022-01-02 17:51] LABS: CALCIUM 8.4 MG/DL (8.5-10.1)
[2022-01-02 17:52] LABS: TOTAL PROTEIN 6.8 GM/DL (6.4-8.2)
[2022-01-02 17:54] LABS: BILIRUBIN,TOTAL 0.4 MG/DL (0.1-1.0)
[2022-01-02 17:56] LABS: CREATININE SERUM 1.46 MG/DL (0.60-1.30)
[2022-01-02 18:25] VITALS: BP 128/56
[2022-01-02] MEDS ORDERED: RT-ALBUTEROL SULF 2.5 MG/3 ML PRE-MIX VIAL INH PRN (18:45)
[2022-01-02 19:22] VITALS: BP 144/65
[2022-01-02] MEDS ORDERED: PATIENT MAY USE OWN MEDS, ALL MC SCH (20:00)
[2022-01-02] MEDS ORDERED: PROMETHAZINE 25 MG (PHENERGAN) TAB PO PRN (20:00)
[2022-01-02] MEDS ORDERED: MELATONIN 3 MG TABLET PO SCH (21:00)
[2022-01-02] MEDS ORDERED: INSULIN DEGLUDEC 40 UNIT SQ SCH (21:00)
[2022-01-02] MEDS ORDERED: NON-FORMULARY MEDICATION 1 EA EA (Sildenafil Citrate (Sildenafil) 20 MG) PO SCH (21:00)
[2022-01-02] MEDS ORDERED: NON-FORMULARY MEDICATION 1 EA EA (Simvastatin 10 MG) PO SCH (21:00)
[2022-01-02] MEDS ORDERED: MONTELUKAST 10 MG (SINGULAIR) TAB PO SCH (21:00)
[2022-01-02] MEDS ORDERED: NON-FORMULARY MEDICATION 1 EA EA (Formoterol Fumarate (Perforomist) 20 MCG) IH SCH (21:00)
[2022-01-02] MEDS ORDERED: traZODone 50 MG (DESYREL) TAB PO SCH (21:00)
[2022-01-02] MEDS ORDERED: GABAPENTIN 300 MG (NEURONTIN) CAP PO SCH (21:00)
[2022-01-02] MEDS ORDERED: RT-BUDESONIDE NEBS 0.5 MG/2ML (PULMICORT) AMP IH SCH (21:00)
[2022-01-02] MEDS ORDERED: RT-BUDESONIDE NEBS 0.5 MG/2ML (PULMICORT) AMP ONE (21:01)
[2022-01-02] MEDS: RT-ALBUTEROL SULF 2.5 MG/3 ML PRE-MIX VIAL INH SCH (21:21)
[2022-01-02] MEDS: SENNOSIDES 8.6 MG (SENOKOT) TAB PO SCH (22:46)
[2022-01-02] MEDS: ALPRAZolam 0.5 MG (XANAX) TAB PO PRN (22:46)
[2022-01-02] MEDS: busPIRone 5 MG (BUSPAR) TAB PO SCH (22:47)
[2022-01-03] VITALS (9 sets, daily range): BP systolic 102–132; BP diastolic 56–74
[2022-01-03] MEDS: DOCUSATE SODIUM 100 MG (COLACE) CAP PO SCH ×3 (01:07→20:50)
[2022-01-03] MEDS: inSUlin ASPART (NovoLOG) 1 UNIT/0.01 ML (CHARGE PER UNIT) SC SCH ×5 (01:08→20:24)
[2022-01-03 05:35] LABS: BASOPHILS # (AUTO) 0.1 10^3/uL (0.0-0.1); BASOPHILS % (AUTO) 1 % (0-10); EOSINOPHILS # (AUTO) 0.4 10^3/uL (0.0-0.3); EOSINOPHILS % (AUTO) 4 % (0-10); HEMATOCRIT 31 % (35-52); HEMOGLOBIN 9.7 g/dL (11.5-16.0); LYMPHOCYTES # (AUTO) 1.1 10^3/uL (1.0-4.0); LYMPHOCYTES % (AUTO) 12 % (12-44); MEAN CORPUSCULAR HEMOGLOBIN 33 pg (25-34); MEAN CORPUSCULAR HGB CONC 31 g/dL (32-36); MEAN CORPUSCULAR VOLUME 105 fL (80-99); MEAN PLATELET VOLUME 9.5 fL (9.0-12.2); MONOCYTES # (AUTO) 0.5 10^3/uL (0.0-1.0); MONOCYTES % (AUTO) 6 % (0-12); NEUTROPHILS # (AUTO) 6.9 10^3/uL (1.8-7.8); NEUTROPHILS % (AUTO) 77 % (42-75); PLATELET COUNT 135 10^3/uL (130-400)
[2022-01-03 05:59] LABS: ALBUMIN 3.2 GM/DL (3.2-4.5); POTASSIUM 4.1 MMOL/L (3.6-5.0)
[2022-01-03 06:00] LABS: CALCIUM 8.4 MG/DL (8.5-10.1)
[2022-01-03 06:01] LABS: TOTAL PROTEIN 6.4 GM/DL (6.4-8.2)
[2022-01-03 06:03] LABS: BILIRUBIN,TOTAL 0.3 MG/DL (0.1-1.0)
[2022-01-03 06:05] LABS: CREATININE SERUM 1.4 MG/DL (0.60-1.30)
[2022-01-03] MEDS ORDERED: LEVOTHYROXINE 125 MCG (LEVOTHROID) TABLET PO SCH (07:00)
[2022-01-03] MEDS: RT-ALBUTEROL SULF 2.5 MG/3 ML PRE-MIX VIAL INH SCH ×2 (08:11→20:18)
--- NOTE | 2022-01-03 08:56 | Physical Therapy Evaluation ---
PT Evaluation-General Medical Diagnosis Admission Date Jan 02, 2022 at 16:37 Medical Diagnosis: CHF Onset Date: Jan 02, 2022 Therapy Diagnosis Therapy Diagnosis: debility/weakness Height/Weight Height (Feet): 5 Height (Inches): 4.00 Weight (Pounds): 246 Weight (Ounces): 6.0 Precautions Precautions/Isolations: Fall Prevention Weight Bear Status Right Lower Extremity: Right Weight Bearing/Tolerated Left Lower Extremity: Left Weight Bearing/Tolerated Referral Physician: Maxwell Reason for Referral: Evaluation/Treatment Medical History Pertinent Medical History: CAD, COPD, DM, GERD, HTN, Neuropathy Additional Medical History obesity Current History Direct admit from Dr. Cardenas office due to CHF Reviewed History: Yes Social History Home: Single Level Current Living Status: Alone Entry Into Home: Stairs With Railing PT Steps Into Home: 2 Prior Prior Level of Function SCALE: Activities may be completed with or without assistive devices. 5-Huqosfxagf-fymfvwk completes the activity by him/herself with no assistance from a helper. 5-Set-up or Clean-up Assistance-helper sets up or cleans up; patient completes activity. [place] assists only prior to or following the activity. 4-Supervision or Touching Assistance-helper provides verbal cues and/or touching/steadying and/or contact guard assistance as patient completes activity. Assistance may be provided throughout the activity or intermittently. 3-Partial/Moderate Assistance-helper does LESS THAN HALF the effort. [place] lifts, holds or supports trunk or limbs, but provides less than half the effort. 2-Substantial/Maximal Assistance-helper does MORE THAN HALF the effort. [place] lifts or holds trunk or limbs and provides more than half the effort. 8-Vypierhrc-idltnt does ALL the effort. Patient does none of the effort to complete the activity. Or, the assistance of 2 or more helpers is required for the patient to complete the activity. If activity was not attempted, code reason: 7-Patient Refused. 9-Not Applicable-not attempted and the patient did not perform the activity before the current illness, exacerbation or injury. 10-Not Attempted due to Environmental Limitations-(lack of equipment, weather restraints, etc.). 88-Not Attempted due to Medical Conditions or Safety Concerns. Bed Mobility: 6 Transfers (B,C,W/C): 6 Gait: 6 Stairs: 6 Indoor Mobility (Ambulation): Independent Stairs: Independent Prior Devices Use: Other-see list below Prior Device Use: cane PRN PT Evaluation-Current Subjective Patient agrees to PT. Pain Numeric Pain Scale: 5-Moderate Pain Location: Lower Location Body Site: Back Pain Description: Chronic Objective Patient Orientation: Normal For Age Attachments: Oxygen (5-6L), Bran Catheter ROM/Strength ROM Lower Extremities bilateral LE WFL Strength Lower Extremities 4-/5 grossly bilateral LE all planes Integumentary/Posture Bladder Incontinence: Bran Cath Posture mild trunk flexed posture due to back pain Neuromuscular (Tone, Coordination, Reflexes) grossly intact Sensory Vision: Functional Hearing: Functional Transfers Lying to Sitting/Side of Bed(Q: 6 Sit to Stand (QC): 4 (SBA) Chair/Jel-vr-Ytugf Xfer(QC): 4 (SBA) Gait Mode of Locomotion: Walk Anticipated Mode of Locomotion: Walk Walk 10 feet (QC): 4 Walk 50 ft with 2 Turns(QC): 4 Walk 150 ft (QC): 4 Distance: 275' Gait Assistive Device: FWW Comments/Gait Description SBA for safety and O2 tank Balance Sitting Static: Normal Sitting Dynamic: Normal Standing Static: Normal Standing Dynamic: Normal Assessment/Needs Patient will be seen short term by skilled PT to address functional strength and mobility to ensure safe return to home at maximum LOF. Rehab Potential: Fair PT Roll Cutting Operator Goals Care Home Goals PT Care Home Goals Time Frame: Jan 11, 2022 Roll Left & Right (QC): 6 Sit to Lying (QC): 6 Lying-Sitting on Side/Bed(QC): 6 Sit to Stand (QC): 6 Chair/Jqy-dn-Nbpcs Xfer(QC): 6 Toilet Transfer (QC): 6 Walk 10 feet (QC): 6 Walk 50ft with 2 Turns (QC): 6 Walk 150 ft (QC): 6 PT Plan Problem List Problem List: Activity Tolerance Treatment/Plan Treatment Plan: Continue Plan of Care Treatment Plan: Education, Functional Activity Lola, Functional Strength, Gait, Safety, Therapeutic Exercise, Transfers Treatment Duration: Jan 11, 2022 Frequency: 6 times per week Estimated Hrs Per Day: .25 hour per day Patient and/or Family Agrees t: Yes Time Time In: 745 Time Out: 800 Total Billed Treatment Time: 15 Total Billed Treatment 1 visit EVMod 15 min ARON GAMBLE PT Jan 03, 2022 08:56
[2022-01-03] MEDS ORDERED: KCL 10 MEQ TAB (MICRO K) PO SCH (09:00)
[2022-01-03] MEDS ORDERED: FUROSEMIDE 40 MG/4 ML INJ (LASIX) IVP SCH (09:00)
[2022-01-03] MEDS ORDERED: PANTOPRAZOLE 40 MG (PROTONIX) TAB PO SCH (09:00)
[2022-01-03] MEDS ORDERED: ASPIRIN E.C. 81 MG (ECOTRIN) TAB PO SCH (09:00)
[2022-01-03] MEDS ORDERED: LOSARTAN 50 MG (COZAAR) TAB PO SCH (09:00)
[2022-01-03] MEDS: SENNOSIDES 8.6 MG (SENOKOT) TAB PO SCH ×2 (09:04→20:51)
[2022-01-03] MEDS: busPIRone 5 MG (BUSPAR) TAB PO SCH ×2 (09:04→20:50)
--- NOTE | 2022-01-03 10:02 | Consultation - Surgery ---
STAR PEÑALOZA 01/03/22 1002: History of Present Illness History of Present Illness Patient Consulted On(paige/time) 01/03/22 10:02 Date Seen by Provider: Jan 03, 2022 Time Seen by Provider: 10:00 History of Present Illness 66 F on day 2 of admission for fluid overload secondary to CHF. Pt had a IV port placed by Dr. Pandey 4 weeks ago that has flipped and unable to be accessed. Pt reports mild discomfort over the right anterior chest wall with palpation. Pt denies any chest pain, fever, chills, n/v, or lightheadedness. Pt has a PMH of COPD and chronically feels SOB. Pt ate breakfast at 0715 this morning with H2O and sprite. Bran cath in place and reports no issues with BMs. Allergies and Home Medications Allergies Coded Allergies: Penicillins (Verified Allergy, Unknown, VOMITING, 12/09/21) meperidine (Verified Allergy, Unknown, VOMITING, 12/09/21) morphine (Unverified Allergy, Unknown, RASH, BREATHING DIFFICULTY, 12/09/21) propoxyphene (Verified Allergy, Unknown, 12/09/21) topiramate (Verified Allergy, Unknown, LOSS OF EYESIGHT, 12/09/21) codeine (Verified Adverse Reaction, Unknown, UPSET STOMACH, 12/09/21) dapagliflozin (Verified Adverse Reaction, Unknown, yeast infection, 12/09/21) Patient Home Medication List Home Medication List Reviewed: Yes Acetaminophen (Tylenol Extra Strength) 500 Mg Tablet, 1,000 MG PO BID PRN for PAIN-MILD, (Reported) Entered as Reported by: MOODY FRANCO on 11/02/17 1632 Last Action: Reviewed Albuterol Sulfate (Ventolin Hfa) 90 Mcg Hfa.aer.ad, 2 PUFF INH Q6H PRN for SHORTNESS OF BREATH, (Reported) Entered as Reported by: TROY HAQUE on 01/03/22 1127 Last Action: Reviewed Alprazolam (Alprazolam) 0.5 Mg Tablet, 0.5 MG PO BID PRN for ANXIETY, (Reported) Entered as Reported by: TROY HAQUE on 01/03/22 1127 Last Action: Reviewed Ascorbate Calcium (Vitamin C) 500 Mg Tablet, 500 MG PO DAILY, (Reported) Entered as Reported by: TEJA PORTILLO on 08/12/21 1323 Last Action: Reviewed Aspirin (Aspirin EC) 81 Mg Tablet.dr, 81 MG PO DAILY, (Reported) Entered as Reported by: MOODY FRANCO on 11/02/17 163 Last Action: Reviewed Budesonide (Budesonide) 0.5 Mg/2 Ml Ampul.neb, 0.5 MG IH BID, (Reported) Entered as Reported by: TEJA PORTILLO on 08/12/21 1503 Last Action: Reviewed Buspirone HCl (Buspirone HCl) 5 Mg Tablet, 5 MG PO BID, (Reported) Entered as Reported by: TROY HAQUE on 01/03/221126 Last Action: Reviewed Cholecalciferol (Vitamin D3) (Vitamin D3) 125 Mcg (5000 Unit) Tablet, 125 MCG PO DAILY, (Reported) Entered as Reported by: TEJA PORTILLO on 08/12/21 132 Last Action: Reviewed Formoterol Fumarate (Perforomist) 20 Mcg/2 Ml Vial.neb, 20 MCG IH BID, (Repor ketan) Entered as Reported by: TEJA PORTILLO on 08/12/21 150 Last Action: Reviewed Furosemide (Furosemide) 40 Mg Tablet, 40 MG PO DAILY, (Reported) Entered as Reported by: TROY HAQUE on 01/03/221126 Last Action: Reviewed Furosemide (Furosemide) 40 Mg Tablet, 40 MG PO 1400 PRN for EXCESS FLUID, (Reported) Entered as Reported by: TROY HAQUE on 01/03/221126 Last Action: Reviewed Gabapentin (Neurontin) 300 Mg Capsule, 300 MG PO QID, (Reported) Entered as Reported by: TEJA PORTILLO on 08/12/21 1320 Last Action: Reviewed Insulin Aspart (Insulin Aspart Flexpen) 100 Unit/Ml (3 Ml) Insuln.pen, 6 UNIT SQ DAILY, (Reported) Entered as Reported by: Linh Cat on 08/11/21 1009 Last Action: Reviewed Insulin Degludec (Tresiba Flextouch U-200) 200 Unit/Ml (3 Ml) Insuln.pen, 30 UNITS SC BID, (Reported) Entered as Reported by: MOODY FRANCO on 11/02/17 163 Last Action: Reviewed Levothyroxine Sodium (Levothyroxine Sodium) 125 Mcg Tablet, 125 MCG PO DAILY, (Reported) Entered as Reported by: ALHAJI HORTA on 09/13/19 0833 Last Action: Reviewed Losartan Potassium (Losartan Potassium) 50 Mg Tablet, 50 MG PO DAILY, (Reported) Entered as Reported by: MOODY FRANCO on 11/02/17 1632 Last Action: Reviewed Melatonin (Melatonin) 3 Mg Tablet, 3 MG PO HS, (Reported) Entered as Reported by: TROY HAQUE on 01/03/22 1127 Last Action: Reviewed Metoprolol Succinate (Metoprolol Succinate) 25 Mg Tab.er.24h, 25 MG PO DAILY, (Reported) Entered as Reported by: MOODY FRANCO on 11/02/17 1632 Last Action: Reviewed Montelukast Sodium (Montelukast Sodium) 10 Mg Tablet, 10 MG PO HS, (Reported) Entered as Reported by: TROY HAQUE on 06/20/20 140 Last Action: Reviewed Pantoprazole Sodium (Pantoprazole Sodium) 40 Mg Tablet.dr, 40 MG PO DAILY, (Reported) Entered as Reported by: ALHAJI HORTA on 09/13/19 0833 Last Action: Reviewed Potassium Chloride (Potassium Chloride) 10 Meq Tab.er.prt, 10 MEQ PO DAILY, (Reported) Entered as Reported by: TROY HAQUE on 06/20/20 140 Last Action: Reviewed Promethazine HCl (Promethazine Tablet) 25 Mg Tablet, 25 MG PO Q6H PRN for NAUSEA/VOMITING-2ND LINE, (Reported) Entered as Reported by: TROY HAQUE on 12/03/21 1230 Last Action: Reviewed Revefenacin (Yupelri) 175 Mcg/3 Ml Vial.neb, 175 MCG IH 1200, (Reported) Entered as Reported by: TEJA PORTILLO on 08/12/21 1504 Last Action: Reviewed Sildenafil Citrate (Sildenafil) 20 Mg Tablet, 20 MG PO TID, (Reported) Entered as Reported by: Linh Cat on 08/11/21 1009 Last Action: Reviewed Simvastatin (Simvastatin) 10 Mg Tablet, 10 MG PO HS, (Reported) Entered as Reported by: Linh Cat on 08/11/21 1009 Last Action: Reviewed Trazodone HCl (Trazodone HCl) 50 Mg Tablet, 150 MG PO HS, (Reported) Entered as Reported by: TROY HAQUE on 01/03/22 1127 Last Action: Reviewed Venlafaxine HCl (Venlafaxine HCl ER) 150 Mg Cap.er.24h, 150 MG PO DAILY, (Reported) Entered as Reported by: TEJA PORTILLO on 08/12/21 1217 Last Action: Reviewed Zinc Amino Acid Chelate (Zinc) 50 Mg Tablet, 50 MG PO DAILY, (Reported) Entered as Reported by: TEJA PORTILLO on 08/12/21 1323 Last Action: Reviewed Discontinued Medications Alprazolam (Alprazolam) 0.5 Mg Tablet, 0.5 MG PO BID PRN for ANXIETY Discontinued Reason: Duplicate Order Prescribed by: FERN BAILEY on 12/05/21 102 Last Action: Discontinued Betamethasone/Propylene Glyc (Betamethasone Dp Aug 0.05% Crm) 0.05 % Cream..g., 1 APPLIC TOP BID, (Reported) Discontinued Reason: No Longer Taking Entered as Reported by: TROY HAQUE on 12/03/21 1230 Last Action: Discontinued Buspirone HCl (Buspirone HCl) 7.5 Mg Tablet, 7.5 MG PO BID Discontinued Reason: No Longer Taking Prescribed by: FERN BAILEY on 12/05/21 1020 Last Action: Discontinued Furosemide (Lasix) 40 Mg Tablet, 40 MG PO BID Discontinued Reason: No Longer Taking Prescribed by: FERN BAILEY on 12/05/21 1020 Last Action: Discontinued Insulin Degludec (Tresiba Flextouch U-200) 200 Unit/Ml (3 Ml) Insuln.pen, 40 UNIT SQ HS, (Reported) Discontinued Reason: Duplicate Order Entered as Reported by: TEJA PORTILLO on 08/12/21 1319 Last Action: Discontinued Melatonin (Melatonin) 3 Mg Tablet, 10 MG PO HS Discontinued Reason: No Longer Taking Prescribed by: FERN BAILEY on 12/05/21 1020 Last Action: Discontinued Trazodone HCl (Trazodone HCl) 50 Mg Tablet, 150 MG PO HS Discontinued Reason: Duplicate Order Prescribed by: FERN BAILEY on 12/05/21 1020 Last Action: Discontinued Past [id number] Hx Patient Social History Smoking Status: Never a Smoker 2nd Hand Smoke Exposure: No Recent Hopitalizations: Yes Alcohol Use?: No Have you traveled recently?: No Immunizations Up To Date Tetanus Booster (TDap): Unknown Date of Pneumonia Vaccine: Feb 05, 2017 Date of Influenza Vaccine: Dec 05, 2021 Seasonal Allergies Seasonal Allergies: No Surgeries History of Surgeries: Yes (FOOT, bilat CTR, carotid endartectomy, bilat TKR) Surgeries: Appendectomy, Gallbladder, Orthopedic, Thyroidectomy Respiratory History of Respiratory Disorde: Yes (CPAP - 4L NC O2, DAYTIME O2 4L) Respiratory Disorders: Asthma, Pneumonia, Sleep Apnea, COPD Cardiovascular History of Cardiac Disorders: Yes (STENT; CAROTID ENDARTERECTOMY, CHF, MITRAL STENOSIS,PULMONARY HTN) Cardiac Disorders: High Cholesterol, Hypertension Neurological History of Neurological Disord: Yes Neurological Disorders: Neuropathy 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 System Hx 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 Disorders: No Sexually Transmitted Disease: No HIV/AIDS: No Female 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 Disorders: 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: Menopausal Genitourinary History of Genitourinary Disor: Yes Genitourinary Disorders: UTI-Chronic Gastrointestinal History of Gastrointestinal Di: Yes Gastrointestinal Disorders: Colitis, Gastroesophageal Reflux, Chronic Constipation, Hemorrhoids, Gall Bladder Disease Musculoskeletal History of Musculoskeletal Dis: Yes (ARTHRITIS, spinal stenosis) Musculoskeletal Disorders: Degenerate Disk Disease, Arthritis Endocrine History of Endocrine Disorders: Yes Endocrine Disorders: Diabetes, Insulin dep, Hypothyroidsim HEENT History of HEENT Disorders: Yes (nosebleeds) Loss of Vision: Denies Hearing Impairment: Denies Cancer History of Cancer: No Psychosocial History of Psychiatric Problem: Yes Behavioral Health Disorders: Anxiety, Depression Integumentary History of Skin or Integumenta: Yes (RASH) Blood Transfusions History of Blood Disorders: Yes (ANEMIA) Adverse Reaction to a Blood Tr: No Family Medical History Significant Family History: Heart Disease, Cancer, Diabetes Family Medial History: Alzheimer's disease G8 SISTER Diabetes mellitus 19 FATHER Hypertension 19 FATHER 19 MOTHER Myocardial infarction 19 FATHER 19 MOTHER Neoplasm G8 SISTER Review of Systems-General Constitutional: No chills, No diaphoresis, No fever EENTM: No hearing loss, No blurred vision Respiratory: cough, short of breath Cardiovascular: No chest pain; edema Gastrointestinal: LLQ (mild tenderness) Genitourinary: No dysuria, No frequency Musculoskeletal: joint pain (BL knee joints. hx of intervention ), muscle pain Skin: No lesions, No lumps, No pruritus Psychiatric/Neurological: Denies Anxiety, Denies Depressed Physical Exam-General Problems Physical Exam Vital Signs Vital Signs - First Documented 01/02/22 01/02/22 01/02/22 17:15 17:24 18:25 Temp 37.1 Pulse 96 Resp 19 B/P (MAP) 128/56 (80) Pulse Ox 92 O2 Delivery Nasal Cannula O2 Flow Rate 4.00 FiO2 32 Capillary Refill : General Appearance: no apparent distress, obese Eyes: Bilateral Eye Normal Inspection, Bilateral Eye EOMI HEENT: PERRL/EOMI, other (moist mucus membranes ) Neck: supple, normal inspection Respiratory: chest non-tender, no respiratory distress, no accessory muscle use, wheezing (on expiration ) Cardiovascular: regular rate, rhythm, other (BL LE edema ) Peripheral Pulses: 3+ Dorsalis Pedis (R), 3+ Left Dors-Pedis (L), 3+ Radial Pulses (R), 3+ Radial Pulses (L) Gastrointestinal: normal bowel sounds, soft, no organomegaly, no pulsatile mass Back: normal inspection, no CVA tenderness Extremities: normal inspection, calf tenderness, pedal edema Neurologic/Psychiatric: alert, normal mood/affect, oriented x 3 Skin: normal color, warm/dry Lymphatic: no adenopathy Data Review Labs Laboratory Tests 01/02/22 17:25: White Blood Count 9.7, Red Blood Count 3.16L, Hemoglobin 10.1L, Hematocrit 34L, Mean Corpuscular Volume 106H, Mean Corpuscular Hemoglobin 32, Mean Corpuscular Hemoglobin Concent 30L, Red Cell Distribution Width 13.1, Platelet Count 152, Mean Platelet Volume 9.9, Immature Granulocyte % (Auto) 0, Neutrophils (%) (Auto) 84H, Lymphocytes (%) (Auto) 9L, Monocytes (%) (Auto) 4, Eosinophils (%) (Auto) 2, Basophils (%) (Auto) 1, Neutrophils # (Auto) 8.1H, Lymphocytes # (Auto) 0.9L, Monocytes # (Auto) 0.4, Eosinophils # (Auto) 0.2, Basophils # (Auto) 0.1, Immature Granulocyte # (Auto) 0.0, Sodium Level 139, Potassium Level 4.6, Chloride Level 100, Carbon Dioxide Level 30, Anion Gap 9, Blood Urea Nitrogen 32H, Creatinine 1.46H, Estimat Glomerular Filtration Rate 39, BUN/Creatinine Ratio 22, Glucose Level 161H, Calcium Level 8.4L, Corrected Calcium 8.9, Total Bilirubin 0.4, Aspartate Amino Transf (AST/SGOT) 35H, Alanine Aminotransferase (ALT/SGPT) 30, Alkaline Phosphatase 112, B-Type Natriuretic Peptide 1271.3H, Total Protein 6.8, Albumin 3.4 01/02/22 20:20: Glucometer 139H 01/03/22 05:05: White Blood Count 9.0, Red Blood Count 2.98L, Hemoglobin 9.7L, Hematocrit 31L, Mean Corpuscular Volume 105H, Mean Corpuscular Hemoglobin 33, Mean Corpuscular Hemoglobin Concent 31L, Red Cell Distribution Width 13.2, Platelet Count 135, Mean Platelet Volume 9.5, Immature Granulocyte % (Auto) 0, Neutrophils (%) (Auto) 77H, Lymphocytes (%) (Auto) 12, Monocytes (%) (Auto) 6, Eosinophils (%) (Auto) 4, Basophils (%) (Auto) 1, Neutrophils # (Auto) 6.9, Lymphocytes # (Auto) 1.1, Monocytes # (Auto) 0.5, Eosinophils # (Auto) 0.4H, Basophils # (Auto) 0.1, Immature Granulocyte # (Auto) 0.0, Sodium Level 143, Potassium Level 4.1, Chloride Level 101, Carbon Dioxide Level 32, Anion Gap 10, Blood Urea Nitrogen 33H, Creatinine 1.40H, Estimat Glomerular Filtration Rate 41, BUN/Creatinine Ratio 24, Glucose Level 104, Calcium Level 8.4L, Corrected Calcium 9.0, Total Bilirubin 0.3, Aspartate Amino Transf (AST/SGOT) 24, Alanine Aminotransferase (ALT/SGPT) 26, Alkaline Phosphatase 102, Total Protein 6.4, Albumin 3.2 01/03/22 05:08: Glucometer 116H Assessment/Plan Assessment/Plan Assessment/Plan Rt chest venous port revision NPO explained risks and benefits of procedure, pt chose to proceed obtain written consent for port revision and all other indicated procedures to OR at 1515 this afternoon MARILY PANDEY DO 01/03/22 1712: History of Present Illness History of Present Illness History of Present Illness Patient is 66-year-old female who was admitted for fluid overload secondary to congestive heart failure. Patient had port placed approximately 4 weeks ago. This was a 10 to be accessed but unable to be accessed feels as if it has flipped. Patient difficult IV access is when she had a port placed. Needing to access the port for further medical management. Patient with no complaints at this time except for a little bit of difficulty breathing which is nothing new. She denies any nausea vomiting fever sweats chills shortness of breath or chest pain at this time. Allergies and Home Medications Allergies Coded Allergies: Penicillins (Verified Allergy, Unknown, VOMITING, 12/09/21) meperidine (Verified Allergy, Unknown, VOMITING, 12/09/21) morphine (Unverified Allergy, Unknown, RASH, BREATHING DIFFICULTY, 12/09/21) propoxyphene (Verified Allergy, Unknown, 12/09/21) topiramate (Verified Allergy, Unknown, LOSS OF EYESIGHT, 12/09/21) codeine (Verified Adverse Reaction, Unknown, UPSET STOMACH, 12/09/21) dapagliflozin (Verified Adverse Reaction, Unknown, yeast infection, 12/09/21) Patient Home Medication List Home Medication List Reviewed: Yes Acetaminophen (Tylenol Extra Strength) 500 Mg Tablet, 1,000 MG PO BID PRN for PAIN-MILD, (Reported) Entered as Reported by: MOODY FRANCO on 11/02/171631 Last Action: Reviewed Albuterol Sulfate (Ventolin Hfa) 90 Mcg Hfa.aer.ad, 2 PUFF INH Q6H PRN for SHORTNESS OF BREATH, (Reported) Entered as Reported by: TROY HAQUE on 01/03/221126 Last Action: Reviewed Alprazolam (Alprazolam) 0.5 Mg Tablet, 0.5 MG PO BID PRN for ANXIETY, (Reported) Entered as Reported by: TROY HAQUE on 01/03/22 112 Last Action: Reviewed Ascorbate Calcium (Vitamin C) 500 Mg Tablet, 500 MG PO DAILY, (Reported) Entered as Reported by: TEJA PORTILLO on 08/12/21 1323 Last Action: Reviewed Aspirin (Aspirin EC) 81 Mg Tablet.dr, 81 MG PO DAILY, (Reported) Entered as Reported by: MOODY FRANCO on 11/02/17 163 Last Action: Reviewed Budesonide (Budesonide) 0.5 Mg/2 Ml Ampul.neb, 0.5 MG IH BID, (Reported) Entered as Reported by: TEJA PORTILLO on 08/12/21 1503 Last Action: Reviewed Buspirone HCl (Buspirone HCl) 5 Mg Tablet, 5 MG PO BID, (Reported) Entered as Reported by: TROY HAQUE on 01/03/221126 Last Action: Reviewed Cholecalciferol (Vitamin D3) (Vitamin D3) 125 Mcg (5000 Unit) Tablet, 125 MCG PO DAILY, (Reported) Entered as Reported by: TEJA PORTILLO on 08/12/21 1324 Last Action: Reviewed Formoterol Fumarate (Perforomist) 20 Mcg/2 Ml Vial.neb, 20 MCG IH BID, (Reported) Entered as Reported by: TEJA PORTILLO on 08/12/21 1503 Last Action: Reviewed Furosemide (Furosemide) 40 Mg Tablet, 40 MG PO DAILY, (Reported) Entered as Reported by: TROY HAQUE on 01/03/221126 Last Action: Reviewed Furosemide (Furosemide) 40 Mg Tablet, 40 MG PO 1400 PRN for EXCESS FLUID, (Reported) Entered as Reported by: TROY HAQUE on 01/03/221126 Last Action: Reviewed Gabapentin (Neurontin) 300 Mg Capsule, 300 MG PO QID, (Reported) Entered as Reported by: TEJA PORTILLO on 08/12/21 1320 Last Action: Reviewed Insulin Aspart (Insulin Aspart Flexpen) 100 Unit/Ml (3 Ml) Insuln.pen, 6 UNIT SQ DAILY, (Reported) Entered as Reported by: Linh Cat on 08/11/21 1009 Last Action: Reviewed Insulin Degludec (Tresiba Flextouch U-200) 200 Unit/Ml (3 Ml) Insuln.pen, 30 UNITS SC BID, (Reported) Entered as Reported by: MOODY FRANCO on 11/02/17 1632 Last Action: Reviewed Levothyroxine Sodium (Levothyroxine Sodium) 125 Mcg Tablet, 125 MCG PO DAILY, (Reported) Entered as Reported by: ALHAJI HORTA on 09/13/19 0833 Last Action: Reviewed Losartan Potassium (Losartan Potassium) 50 Mg Tablet, 50 MG PO DAILY, (Reported) Entered as Reported by: MOODY FRANCO on 11/02/17 163 Last Action: Reviewed Melatonin (Melatonin) 3 Mg Tablet, 3 MG PO HS, (Reported) Entered as Reported by: TROY HAQUE on 01/03/221126 Last Action: Reviewed Metoprolol Succinate (Metoprolol Succinate) 25 Mg Tab.er.24h, 25 MG PO DAILY, (Reported) Entered as Reported by: MOODY FRANCO on 11/02/17 1632 Last Action: Reviewed Montelukast Sodium (Montelukast Sodium) 10 Mg Tablet, 10 MG PO HS, (Reported) Entered as Reported by: TROY HAQUE on 06/20/20 1407 Last Action: Reviewed Pantoprazole Sodium (Pantoprazole Sodium) 40 Mg Tablet.dr, 40 MG PO DAILY, (Reported) Entered as Reported by: ALHAJI HORTA on 09/13/19 0870 Last Action: Reviewed Potassium Chloride (Potassium Chloride) 10 Meq Tab.er.prt, 10 MEQ PO DAILY, (Reported) Entered as Reported by: TROY HAQUE on 06/20/20 140 Last Action: Reviewed Promethazine HCl (Promethazine Tablet) 25 Mg Tablet, 25 MG PO Q6H PRN for NAUSEA/VOMITING-2ND LINE, (Reported) Entered as Reported by: TROY HAQUE on 12/03/21 1230 Last Action: Reviewed Revefenacin (Yupelri) 175 Mcg/3 Ml Vial.neb, 175 MCG IH 1200, (Reported) Entered as Reported by: TEJA PORTILLO on 08/12/21 1504 Last Action: Reviewed Sildenafil Citrate (Sildenafil) 20 Mg Tablet, 20 MG PO TID, (Reported) Entered as Reported by: Linh Cat on 08/11/21 1009 Last Action: Reviewed Simvastatin (Simvastatin) 10 Mg Tablet, 10 MG PO HS, (Reported) Entered as Reported by: Linh Cat on 08/11/21 1009 Last Action: Reviewed Trazodone HCl (Trazodone HCl) 50 Mg Tablet, 150 MG PO HS, (Reported) Entered as Reported by: TROY HAQUE on 01/03/22 1127 Last Action: Reviewed Venlafaxine HCl (Venlafaxine HCl ER) 150 Mg Cap.er.24h, 150 MG PO DAILY, (Reported) Entered as Reported by: TEJA PORTILLO on 08/12/21 1217 Last Action: Reviewed Zinc Amino Acid Chelate (Zinc) 50 Mg Tablet, 50 MG PO DAILY, (Reported) Entered as Reported by: TEJA PORTILLO on 08/12/21 1323 Last Action: Reviewed Discontinued Medications Alprazolam (Alprazolam) 0.5 Mg Tablet, 0.5 MG PO BID PRN for ANXIETY Discontinued Reason: Duplicate Order Prescribed by: FERN BAILEY on 12/05/21 1020 Last Action: Discontinued Betamethasone/Propylene Glyc (Betamethasone Dp Aug 0.05% Crm) 0.05 % Cream..g., 1 APPLIC TOP BID, (Reported) Discontinued Reason: No Longer Taking Entered as Reported by: TROY HAQUE on 12/03/21 1230 Last Action: Discontinued Buspirone HCl (Buspirone HCl) 7.5 Mg Tablet, 7.5 MG PO BID Discontinued Reason: No Longer Taking Prescribed by: FERN BAILEY on 12/05/21 1020 Last Action: Discontinued Furosemide (Lasix) 40 Mg Tablet, 40 MG PO BID Discontinued Reason: No Longer Taking Prescribed by: FERN BAILEY on 12/05/21 1020 Last Action: Discontinued Insulin Degludec (Tresiba Flextouch U-200) 200 Unit/Ml (3 Ml) Insuln.pen, 40 UNIT SQ HS, (Reported) Discontinued Reason: Duplicate Order Entered as Reported by: TEJA PORTILLO on 08/12/21 1319 Last Action: Discontinued Melatonin (Melatonin) 3 Mg Tablet, 10 MG PO HS Discontinued Reason: No Longer Taking Prescribed by: FERN BAILEY on 12/05/21 102 Last Action: Discontinued Trazodone HCl (Trazodone HCl) 50 Mg Tablet, 150 MG PO HS Discontinued Reason: Duplicate Order Prescribed by: FERN BAILEY on 12/05/21 1020 Last Action: Discontinued Past [id number]-[id number] Hx Reviewed Nursing Assessment Reviewed/Agree w Nursing PMH: Yes Family Medical History Significant Family History: No Pertinent Family Hx Family Medial History: Alzheimer's disease G8 SISTER Diabetes mellitus 19 FATHER Hypertension 19 FATHER 19 MOTHER Myocardial infarction 19 FATHER 19 MOTHER Neoplasm G8 SISTER Review of Systems-General Constitutional: No chills, No diaphoresis, No fever EENTM: No hearing loss, No blurred vision Respiratory: cough, short of breath Cardiovascular: No chest pain; edema Gastrointestinal: No abdominal pain, No nausea, No vomiting Genitourinary: No dysuria, No frequency Musculoskeletal: joint pain (BL knee joints. hx of intervention ), muscle pain Skin: No lesions, No lumps Psychiatric/Neurological: Denies Anxiety, Denies Depressed, Denies Emotional Problems All Other Systems Reviewed Negative Unless Noted: Yes (Negative excepted noted.) Physical Exam-General Problems Physical Exam General Appearance: no apparent distress, obese HEENT: PERRL/EOMI, normal ENT inspection Neck: supple, normal inspection Respiratory: chest non-tender, no respiratory distress, no accessory muscle use, wheezing (on expiration ) Cardiovascular: regular rate, rhythm, other (BL LE edema ) Gastrointestinal: non tender, soft, no organomegaly Back: normal inspection, no CVA tenderness Extremities: pedal edema Neurologic/Psychiatric: alert, normal mood/affect, oriented x 3 Skin: normal color, warm/dry Lymphatic: no adenopathy Assessment/Plan Assessment/Plan Assessment/Plan Port malfunction CHF exacerbation discussed risks and benefits of revision of port she understands and wishes to proceed. NPO will leave port accessed Supervisory-Addendum Brief Verification & Attestation Participated in pt care: history, MDM, physical Personally performed: exam, history, MDM, supervision of care Care discussed with: Medical Student Procedures: n/a Results interpretation: Verified all documentation Verification and Attestation of Medical Student E/M Service A medical student performed and documented this service in my presence. I reviewed and verified all information documented by the medical student and made modifications to such information, when appropriate. I personally performed the physical exam and medical decision making. Marily Pandey, Jan 03, 2022,12:14 STAR PEÑALOZA Jan 03, 2022 10:02 MARILY PANDYE DO Jan 03, 2022 17:12
[2022-01-03] MEDS: [UNRECOGNIZED DRUG - REMARK] PO SCH (11:01)
[2022-01-03] MEDS ORDERED: ALPR0.5T7 PO (11:27)
[2022-01-03] MEDS ORDERED: MELA3TAB39 PO (11:27)
[2022-01-03] MEDS ORDERED: FURO40TA4 PO ×2 (11:27)
[2022-01-03] MEDS ORDERED: ALBU18HF2 INH (11:27)
[2022-01-03] MEDS ORDERED: BUSP5TAB59 PO (11:27)
[2022-01-03] MEDS ORDERED: TRZ50T PO (11:27)
--- NOTE | 2022-01-03 11:30 | Occupational Therapy Eval ---
OT Evaluation-General/PLF Medical Diagnosis Admission Date Jan 02, 2022 at 16:37 Medical Diagnosis: CHF Onset Date: Jan 02, 2022 Therapy Diagnosis Therapy Diagnosis: decreased ADL status Height/Weight Height (Feet): 5 Height (Inches): 4.00 Weight (Pounds): 246 Weight (Ounces): 6.0 Precautions Precautions/Isolations: Fall Prevention Referral Physician: Maxwell Referral Reason: Evaluation/Treatment Medical History Pertinent Medical History: CAD, COPD, DM, GERD, HTN, Neuropathy Current History Direct admit from dr clinic with CHF Social History Home: Single Level Current Living Status: Alone Entry Into Home: Stairs With Railing Steps Into Home: 2 ADL-Prior Level of Function SCALE: Activities may be completed with or without assistive devices. 3-Xtzajpozqt-ppprecn completes the activity by him/herself with no assistance from a helper. 5-Set-up or Clean-up Assistance-helper sets up or cleans up; patient completes activity. [place] assists only prior to or following the activity. 4-Supervision or Touching Assistance-helper provides verbal cues and/or touching/steadying and/or contact guard assistance as patient completes activity. Assistance may be provided throughout the activity or intermittently. 3-Partial/Moderate Assistance-helper does LESS THAN HALF the effort. [place] lifts, holds or supports trunk or limbs, but provides less than half the effort. 2-Substantial/Maximal Assistance-helper does MORE THAN HALF the effort. [place] lifts or holds trunk or limbs and provides more than half the effort. 5-Ahveprjzd-xwqlck does ALL the effort. Patient does none of the effort to complete the activity. Or, the assistance of 2 or more helpers is required for the patient to complete the activity. If activity was not attempted, code reason: 7-Patient Refused. 9-Not Applicable-not attempted and the patient did not perform the activity before the current illness, exacerbation or injury. 10-Not Attempted due to Environmental Limitations-(lack of equipment, weather restraints, etc.). 88-Not Attempted due to Medical Conditions or Safety Concerns. ADL PLOF Comments Pt reports she is primarily independent with ADLs and functional mobility at PLOF. She uses a cane in her house and a w/c outside of the house. She has a friend come over to assist with groceries, bathing, and other tasks as needed. Pt does not take a full shower, opting to take a sponge bath due to SOB with activity. She typically just wears slip on shoes, as it is difficult for her to bend forward to don socks/shoes. Self Care: Needed Some Help Functional Cognition: Independent DME/Equipment: Bath Bench, Sock Aid, Tub/Shower OT Current Status Subjective Pt in recliner, agreeable to OT tx. Mental Status/Objective Patient Orientation: Person, Place, Situation Attachments: Bran Catheter, Oxygen Current Upper Extremity ROM WFL, BUE shoulder flexion to approx 150 degrees Upper Extremity Coordination WFL Upper Extremity Sensation pt reports occasional tingling/numnbess in L hand Upper Extremity Strength grossly 3+/5 ADL-Treatment Eating (QC): 6 (Per nursing report.) Lower Body Dressing (QC): 7 Toileting Hygiene (QC): 7 Other Treatments Pt in recliner, agreeable to OT evaluation/tx. Pt provided information about PLOF and home set up, and participated in UE screen. OT educated pt on energy conservation techniques and home modifications, she verbalized understanding. In order to increase BUE Strength and activity tolerance, and improve pulmonary function, pt completed x10 reps each of the following BUE exercises: shoulder flexion, elbow flexion/extension, front punch, and finger flexion/extension. Post tx, pt in recliner, call light in reach and all needs met Education OT Patient Education: Correct positioning, Energy conservation, Exercise program, Modified ADL techniques, Progress toward Goal/Update tx plan, Purpose of tx/functional activities, Rehab process Teaching Recipient: Patient Teaching Methods: Discussion Response to Teaching: Verbalize Understanding OT Rum Processing Operator Goals Rum Processing Operator Goals Time Frame: Jan 10, 2022 Eating (QC): 6 Oral Hygiene (QC): 6 Toileting Hygiene (QC): 6 Shower/Bathe Self (QC): 4 Upper Body Dressing (QC): 5 Lower Body Dressing (QC): 4 On/Off Footwear (QC): 4 Additional Goals: 1-Demonstrate ADL Tasks, 2-Verbalize Understanding, 3- ImproveStrength/Lola 1=Demonstrate adherence to instructed precautions during ADL tasks. 2=Patient will verbalize/demonstrate understanding of assistive devices/modifications for ADL. 3=Patient will improve strength/tolerance for activity to enable patient to perform ADL's. OT Education/Plan Problem List/Assessment Assessment: Decreased Activ Tolerance, Decreased UE Strength, Impaired Funct Balance, Impaired I ADL's, Impaired Self-Care Skills Discharge Recommendations Plan/Recommendations: Continue POC Treatment Plan/Plan of Care Patient would benefit from OT for education, treatment and training to promote independence in ADL's, mobility, safety and/or upper extremity function for ADL's. Plan of Care: ADL Retraining, Functional Mobility, UE Funct Exercise/Act Treatment Duration: Jan 10, 2022 Frequency: 3 times per week (3-5 times per week) Estimated Hrs Per Day: .25 hour per day Agreement: Yes Rehab Potential: Fair Time/GCodes Start Time: 11:02 Stop Time: 11:12 Total Time Billed (hr/min): 10 Billed Treatment Time 1LEONELA ADDISON OT Jan 03, 2022 11:30
[2022-01-03] MEDS ORDERED: REVEFENACIN 175 MCG IH SCH (12:00)
--- NOTE | 2022-01-03 14:03 | History & Physical ---
MIKE HUNTLEY 01/03/22 1403: History of Present Illness History of Present Illness Reason for visit/HPI CC: CHF exacerbation HPI: Ms. Rhea Taveras, 66 F, with hx of COPD, CAD, HFpEF, pulmonary HTN, IDDM, and HTN, was directly admitted from Dr. Bailye's office yesterday afternoon for fluid overload d/t CHF. Pt states she suddenly developed shortness of breath and leg swelling, which happened the last time she had a CHF exacerbation. States x [address] Pulido placed a port in her right chest, which today appears to be flipped and unable to access. She has some pain over right anterior chest wall with palpation. Reports cough at night and LLQ abdominal pain for last x 2 days. States she normally wears 4L O2 at home. She has hx of heart stent and carotid endarterectomy, followed by Dr. Quinones. States she has an appointment next week with nephrology for CKD. She denies fever, chills, N/V,D, headache or any other complaints. Date of Admission Jan 03, 2022 at 12:25 Date Seen by a Provider: Jan 03, 2022 Time Seen by a Provider: 12:00 I consulted on this patient on 01/03/22 14:01 Attending Physician Deya Bailey DO Admitting Physician Admitting Physician: Deya Bailey DO Attending Physician: Deya Bailey DO Consult Allergies and Home Medications Allergies Coded Allergies: Penicillins (Verified Allergy, Unknown, VOMITING, 12/09/21) meperidine (Verified Allergy, Unknown, VOMITING, 12/09/21) morphine (Unverified Allergy, Unknown, RASH, BREATHING DIFFICULTY, 12/09/21) propoxyphene (Verified Allergy, Unknown, 12/09/21) topiramate (Verified Allergy, Unknown, LOSS OF EYESIGHT, 12/09/21) codeine (Verified Adverse Reaction, Unknown, UPSET STOMACH, 12/09/21) dapagliflozin (Verified Adverse Reaction, Unknown, yeast infection, 12/09/21) Patient Home Medication List Acetaminophen (Tylenol Extra Strength) 500 Mg Tablet, 1,000 MG PO BID PRN for PAIN-MILD, (Reported) Entered as Reported by: MOODY FRANCO on 11/02/17 8652 Last Action: Reviewed Albuterol Sulfate (Ventolin Hfa) 90 Mcg Hfa.aer.ad, 2 PUFF INH Q6H PRN for SHORTNESS OF BREATH, (Reported) Entered as Reported by: TROY HAQUE on 01/03/221126 Last Action: Reviewed Alprazolam (Alprazolam) 0.5 Mg Tablet, 0.5 MG PO BID PRN for ANXIETY, (Reported) Entered as Reported by: TROY HAQUE on 01/03/221126 Last Action: Reviewed Ascorbate Calcium (Vitamin C) 500 Mg Tablet, 500 MG PO DAILY, (Reported) Entered as Reported by: TEJA PORTILLO on 08/12/21 132 Last Action: Reviewed Aspirin (Aspirin EC) 81 Mg Tablet.dr, 81 MG PO DAILY, (Reported) Entered as Reported by: MOODY FRANCO on 11/02/17 1632 Last Action: Reviewed Budesonide (Budesonide) 0.5 Mg/2 Ml Ampul.neb, 0.5 MG IH BID, (Reported) Entered as Reported by: TEJA PORTILLO on 08/12/21 150 Last Action: Reviewed Buspirone HCl (Buspirone HCl) 5 Mg Tablet, 5 MG PO BID, (Reported) Entered as Reported by: TROY HAQUE on 01/03/221126 Last Action: Reviewed Cholecalciferol (Vitamin D3) (Vitamin D3) 125 Mcg (5000 Unit) Tablet, 125 MCG PO DAILY, (Reported) Entered as Reported by: TEJA PORTILLO on 08/12/21 132 Last Action: Reviewed Formoterol Fumarate (Perforomist) 20 Mcg/2 Ml Vial.neb, 20 MCG IH BID, (Reported) Entered as Reported by: TEJA PORTILLO on 08/12/21 1503 Last Action: Reviewed Furosemide (Furosemide) 40 Mg Tablet, 40 MG PO DAILY, (Reported) Entered as Reported by: TROY HAQUE on 01/03/221126 Last Action: Reviewed Furosemide (Furosemide) 40 Mg Tablet, 40 MG PO 1400 PRN for EXCESS FLUID, (Reported) Entered as Reported by: TROY HAQUE on 01/03/221126 Last Action: Reviewed Gabapentin (Neurontin) 300 Mg Capsule, 300 MG PO QID, (Reported) Entered as Reported by: TEJA PORTILLO on 08/12/21 132 Last Action: Reviewed Insulin Aspart (Insulin Aspart Flexpen) 100 Unit/Ml (3 Ml) Insuln.pen, 6 UNIT SQ DAILY, (Reported) Entered as Reported by: Linh Cat on 08/11/21 1009 Last Action: Reviewed Insulin Degludec (Tresiba Flextouch U-200) 200 Unit/Ml (3 Ml) Insuln.pen, 30 UNITS SC BID, (Reported) Entered as Reported by: MOODY FRANCO on 11/02/17 163 Last Action: Reviewed Levothyroxine Sodium (Levothyroxine Sodium) 125 Mcg Tablet, 125 MCG PO DAILY, (Reported) Entered as Reported by: ALHAJI HORTA on 09/13/1933 Last Action: Reviewed Losartan Potassium (Losartan Potassium) 50 Mg Tablet, 50 MG PO DAILY, (Reported) Entered as Reported by: MOODY FRANCO on 11/02/17 163 Last Action: Reviewed Melatonin (Melatonin) 3 Mg Tablet, 3 MG PO HS, (Reported) Entered as Reported by: TROY HAQUE on 01/03/22 1127 Last Action: Reviewed Metoprolol Succinate (Metoprolol Succinate) 25 Mg Tab.er.24h, 25 MG PO DAILY, (Reported) Entered as Reported by: MOODY FRANCO on 11/02/17 163 Last Action: Reviewed Montelukast Sodium (Montelukast Sodium) 10 Mg Tablet, 10 MG PO HS, (Reported) Entered as Reported by: TROY HAQUE on 06/20/20 140 Last Action: Reviewed Pantoprazole Sodium (Pantoprazole Sodium) 40 Mg Tablet.dr, 40 MG PO DAILY, (Reported) Entered as Reported by: ALHAJI HORTA on 09/13/1933 Last Action: Reviewed Potassium Chloride (Potassium Chloride) 10 Meq Tab.er.prt, 10 MEQ PO DAILY, (Reported) Entered as Reported by: TROY HAQUE on 06/20/20 140 Last Action: Reviewed Promethazine HCl (Promethazine Tablet) 25 Mg Tablet, 25 MG PO Q6H PRN for NAUSEA/VOMITING-2ND LINE, (Reported) Entered as Reported by: TROY HAQUE on 12/03/21 1230 Last Action: Reviewed Revefenacin (Yupelri) 175 Mcg/3 Ml Vial.neb, 175 MCG IH 1200, (Reported) Entered as Reported by: TEJA PORTILLO on 08/12/21 1504 Last Action: Reviewed Sildenafil Citrate (Sildenafil) 20 Mg Tablet, 20 MG PO TID, (Reported) Entered as Reported by: Linh Cat on 08/11/21 1009 Last Action: Reviewed Simvastatin (Simvastatin) 10 Mg Tablet, 10 MG PO HS, (Reported) Entered as Reported by: Linh Cat on 08/11/21 1009 Last Action: Reviewed Trazodone HCl (Trazodone HCl) 50 Mg Tablet, 150 MG PO HS, (Reported) Entered as Reported by: TROY HAQUE on 01/03/22 1127 Last Action: Reviewed Venlafaxine HCl (Venlafaxine HCl ER) 150 Mg Cap.er.24h, 150 MG PO DAILY, (Reported) Entered as Reported by: TEJA PORTILLO on 08/12/21 1217 Last Action: Reviewed Zinc Amino Acid Chelate (Zinc) 50 Mg Tablet, 50 MG PO DAILY, (Reported) Entered as Reported by: TEJA PORTILLO on 08/12/21 1323 Last Action: Reviewed Discontinued Medications Alprazolam (Alprazolam) 0.5 Mg Tablet, 0.5 MG PO BID PRN for ANXIETY Discontinued Reason: Duplicate Order Prescribed by: DEYA BAILEY on 12/05/21 1020 Last Action: Discontinued Betamethasone/Propylene Glyc (Betamethasone Dp Aug 0.05% Crm) 0.05 % Cream..g., 1 APPLIC TOP BID, (Reported) Discontinued Reason: No Longer Taking Entered as Reported by: TROY HAQUE on 12/03/21 1230 Last Action: Discontinued Buspirone HCl (Buspirone HCl) 7.5 Mg Tablet, 7.5 MG PO BID Discontinued Reason: No Longer Taking Prescribed by: DEYA BAILEY on 12/05/21 1020 Last Action: Discontinued Furosemide (Lasix) 40 Mg Tablet, 40 MG PO BID Discontinued Reason: No Longer Taking Prescribed by: DEYA BAILEY on 12/05/21 1020 Last Action: Discontinued Insulin Degludec (Tresiba Flextouch U-200) 200 Unit/Ml (3 Ml) Insuln.pen, 40 UNIT SQ HS, (Reported) Discontinued Reason: Duplicate Order Entered as Reported by: TEJA PORTILLO on 08/12/21 1319 Last Action: Discontinued Melatonin (Melatonin) 3 Mg Tablet, 10 MG PO HS Discontinued Reason: No Longer Taking Prescribed by: DEYA BAILEY on 12/05/21 102 Last Action: Discontinued Trazodone HCl (Trazodone HCl) 50 Mg Tablet, 150 MG PO HS Discontinued Reason: Duplicate Order Prescribed by: DEYA BAIELY on 12/05/21 1020 Last Action: Discontinued Past Vinipnr-Pbqkdt-Acunpj Hx Patient Social History Tobacco Use?: No Smoking Status: Never a Smoker Smokeless Tobacco Frequency: Never a User Use of E-Cig and/or Vaping dev: No Substance use?: No Alcohol Use?: No Pt feels they are or have been: No Immunizations Up To Date Date of Influenza Vaccine: Dec 05, 2021 First/Initial COVID19 Vaccinat: 2020 Second COVID19 Vaccination Trey: 2020 Tetanus Booster (TDap): Less Than 5 Years Hepatitis A: No Hepatitis B: No Date of Pneumonia Vaccine: Feb 05, 2017 Seasonal Allergies Seasonal Allergies: No Current Status Advance Directives: Yes Advance Directive Location: Copy from prev record Communicates: Verbally Primary Language: Israeli Preferred Spoken Language: Israeli Is interpretation needed?: No Sensory deficits: Vision impairment Implanted or Applied Medical D: Port-a-cath, Stents Past Medical History Surgeries: Appendectomy, Gallbladder, Orthopedic, Thyroidectomy Asthma, Pneumonia, Sleep Apnea, COPD Currently Using CPAP: No Currently Using BIPAP: No High Cholesterol, Hypertension Neuropathy INFORMATION LEAD History: Menopausal Sexually Transmitted Disease: No HIV/AIDS: No UTI-Chronic Colitis, Gastroesophageal Reflux, Chronic Constipation, Hemorrhoids, Gall Bladder Disease Degenerate Disk Disease, Arthritis Diabetes, Insulin dep, Hypothyroidsim Loss of Vision: Denies Hearing Impairment: Denies Anxiety, Depression Blood Disorders: Yes (ANEMIA) Adverse Reaction/Blood Tranf: No Hypertension Hyperlipidemia Type 2 diabetes mellitus Coronary artery disease COPD Chronic respiratory failure with hypoxia Heart failure with preserved ejection fraction Morbid obesity Family Medical History Alzheimer's disease G8 SISTER Diabetes mellitus 19 FATHER Hypertension 19 FATHER 19 MOTHER Myocardial infarction 19 FATHER 19 MOTHER Neoplasm G8 SISTER Heart Disease, Cancer, Diabetes Noncontributory Review of Systems Constitutional: No chills, No diaphoresis, No fever EENTM: No blurred vision, No double vision, No hoarseness Respiratory: cough, dyspnea on exertion; No phlegm; short of breath Cardiovascular: chest pain (right anterior chest wall ), edema; No palpitations Gastrointestinal: LLQ, abdominal pain (LLQ); No diarrhea, No nausea, No vomiting Genitourinary: No decreased output, No dysuria, No incontinence : No Musculoskeletal: No muscle twitching, No muscle weakness Skin: No change in color, No pruritus, No rash Psychiatric/Neurological: Anxiety (chronic hx ), Depressed (chronic hx ) Physical Exam Vital Signs Vital Signs - First Documented 01/02/22 01/02/22 01/02/22 17:15 17:24 18:25 Temp 37.1 Pulse 96 Resp 19 B/P (MAP) 128/56 (80) Pulse Ox 92 O2 Delivery Nasal Cannula O2 Flow Rate 4.00 FiO2 32 Capillary Refill : Height, Weight, BMI Height: 5'4.00" Weight: 246lbs. 6.0oz. [id number]; 46.97 BMI Method:Stated General Appearance: No Apparent Distress, WD/WN, Obese, Other (Tearful) Eyes: Bilateral Eye PERRL, Bilateral Eye EOMI HEENT: PERRL/EOMI, Moist Mucous Membranes Neck: Non Tender, Supple Respiratory: Lungs Clear, No Accessory Muscle Use, No Respiratory Distress, Crackles (at bases), Decreased Breath Sounds (bilaterally); No Wheezing; Other (right anterior chest wall tenderness to palpation with port flipped and unable to access) Cardiovascular: Regular Rate, Rhythm, No Gallop, No JVD, No Murmur, Normal Peripheral Pulses Gastrointestinal: Normal Bowel Sounds, Non Tender; No Distended, No Guarding, No Rebound; Tenderness (very mild TTP over LLQ) Back: No CVA Tenderness; No Muscle Spasm Extremity: Non Tender, No Calf Tenderness, Pedal Edema, Swelling (bilateral LEs) Neurologic/Psychiatric: Alert, Oriented x3, Normal Mood/Affect Skin: Normal Color, Warm/Dry Lymphatic: No Adenopathy Assessment/Plan Assessment and Plan Assessment: HFpEF - CXR 01/02: Enlarged cardiac silhouette with pulmonary vascular prominence, fluid within the minor fissure, and possible small effusions, suggesting pulmonary edema. There is no consolidation to suggest pneumonia Right chest venous port complication - placed x [address] Pulido - plans to surgically revise this afternoon COPD -O2 dependence, 4L at home CKD -Cr 1.40 and BUN 33 - appointment scheduled with nephrology next week Pulmonary HTN - managed with sildenafil IDDM CAD Cardiac Stent HTN HLD Morbid Obesity Plan: Diuresis with Lasix (40mg daily) Dr. Pulido plans to take to OR today at 3:15 for port revision, currently NPO SSI for sugar control Continue home medications and supportive care Close monitoring of kidney function Admission Diagnosis Admission Status: Inpatient Order (span 2 midnights) Reason for Inpatient Admission: CHF exacerbation DEYA BAILEY DO 01/04/22 0538: History of Present Illness History of Present Illness Reason for visit/HPI Chief complaint: Acute volume overload HPI: This is a 66-year-old female clinic patient of [employer] who has a past medical history of congestive heart failure and COPD with chronic kidney disease and pulmonary hypertension managed by multiple specialties in [place] who presented to my clinic with volume overload. Patient was placed on Lasix IV but when we tried to access her port and had malfunction and she will take that addressed in surgery today. Allergies and Home Medications Allergies Coded Allergies: Penicillins (Verified Allergy, Unknown, VOMITING, 12/09/21) meperidine (Verified Allergy, Unknown, VOMITING, 12/09/21) morphine (Unverified Allergy, Unknown, RASH, BREATHING DIFFICULTY, 12/09/21) propoxyphene (Verified Allergy, Unknown, 12/09/21) topiramate (Verified Allergy, Unknown, LOSS OF EYESIGHT, 12/09/21) codeine (Verified Adverse Reaction, Unknown, UPSET STOMACH, 12/09/21) dapagliflozin (Verified Adverse Reaction, Unknown, yeast infection, 12/09/21) Patient Home Medication List Home Medication List Reviewed: Yes Acetaminophen (Tylenol Extra Strength) 500 Mg Tablet, 1,000 MG PO BID PRN for PAIN-MILD, (Reported) Entered as Reported by: MOODY FRANCO on 11/02/17 1632 Last Action: Reviewed Albuterol Sulfate (Ventolin Hfa) 90 Mcg Hfa.aer.ad, 2 PUFF INH Q6H PRN for SHORTNESS OF BREATH, (Reported) Entered as Reported by: TROY HAQUE on 01/03/221126 Last Action: Reviewed Alprazolam (Alprazolam) 0.5 Mg Tablet, 0.5 MG PO BID PRN for ANXIETY, (Reported) Entered as Reported by: TROY HAQUE on 01/03/221126 Last Action: Reviewed Ascorbate Calcium (Vitamin C) 500 Mg Tablet, 500 MG PO DAILY, (Reported) Entered as Reported by: TEJA PORTILLO on 08/12/21 132 Last Action: Reviewed Aspirin (Aspirin EC) 81 Mg Tablet.dr, 81 MG PO DAILY, (Reported) Entered as Reported by: MOODY FRANCO on 11/02/17 1632 Last Action: Reviewed Budesonide (Budesonide) 0.5 Mg/2 Ml Ampul.neb, 0.5 MG IH BID, (Reported) Entered as Reported by: TEJA PORTILLO on 08/12/21 1503 Last Action: Reviewed Buspirone HCl (Buspirone HCl) 5 Mg Tablet, 5 MG PO BID, (Reported) Entered as Reported by: TROY HAQUE on 01/03/221126 Last Action: Reviewed Cholecalciferol (Vitamin D3) (Vitamin D3) 125 Mcg (5000 Unit) Tablet, 125 MCG PO DAILY, (Reported) Entered as Reported by: TEJA PORTILLO on 08/12/21 132 Last Action: Reviewed Formoterol Fumarate (Perforomist) 20 Mcg/2 Ml Vial.neb, 20 MCG IH BID, (Reported) Entered as Reported by: TEJA PORTILLO on 08/12/21 1503 Last Action: Reviewed Furosemide (Furosemide) 40 Mg Tablet, 40 MG PO DAILY, (Reported) Entered as Reported by: TROY HAQUE on 01/03/221126 Last Action: Reviewed Furosemide (Furosemide) 40 Mg Tablet, 40 MG PO 1400 PRN for EXCESS FLUID, (Reported) Entered as Reported by: TROY HAQUE on 01/03/221126 Last Action: Reviewed Gabapentin (Neurontin) 300 Mg Capsule, 300 MG PO QID, (Reported) Entered as Reported by: TEJA PORTILLO on 08/12/21 1320 Last Action: Reviewed Insulin Aspart (Insulin Aspart Flexpen) 100 Unit/Ml (3 Ml) Insuln.pen, 6 UNIT SQ DAILY, (Reported) Entered as Reported by: Linh Cat on 08/11/21 1009 Last Action: Reviewed Insulin Degludec (Tresiba Flextouch U-200) 200 Unit/Ml (3 Ml) Insuln.pen, 30 UNITS SC BID, (Reported) Entered as Reported by: MOODY FRANCO on 11/02/17 163 Last Action: Reviewed Levothyroxine Sodium (Levothyroxine Sodium) 125 Mcg Tablet, 125 MCG PO DAILY, (Reported) Entered as Reported by: ALHAJI HORTA on 09/13/1933 Last Action: Reviewed Losartan Potassium (Losartan Potassium) 50 Mg Tablet, 50 MG PO DAILY, (Reported) Entered as Reported by: MOODY FRANCO on 11/02/17 1632 Last Action: Reviewed Melatonin (Melatonin) 3 Mg Tablet, 3 MG PO HS, (Reported) Entered as Reported by: TROY HAQUE on 01/03/22 112 Last Action: Reviewed Metoprolol Succinate (Metoprolol Succinate) 25 Mg Tab.er.24h, 25 MG PO DAILY, (Reported) Entered as Reported by: MOODY FRANCO on 11/02/17 163 Last Action: Reviewed Montelukast Sodium (Montelukast Sodium) 10 Mg Tablet, 10 MG PO HS, (Reported) Entered as Reported by: TROY HAQUE on 06/20/20 140 Last Action: Reviewed Pantoprazole Sodium (Pantoprazole Sodium) 40 Mg Tablet.dr, 40 MG PO DAILY, (Reported) Entered as Reported by: ALHAJI HORTA on 09/13/19 0833 Last Action: Reviewed Potassium Chloride (Potassium Chloride) 10 Meq Tab.er.prt, 10 MEQ PO DAILY, (Reported) Entered as Reported by: TROY HAQUE on 06/20/20 140 Last Action: Reviewed Promethazine HCl (Promethazine Tablet) 25 Mg Tablet, 25 MG PO Q6H PRN for NAUSEA/VOMITING-2ND LINE, (Reported) Entered as Reported by: TROY HAQUE on 12/03/21 1230 Last Action: Reviewed Revefenacin (Yupelri) 175 Mcg/3 Ml Vial.neb, 175 MCG IH 1200, (Reported) Entered as Reported by: TEJA PORTILLO on 08/12/21 1504 Last Action: Reviewed Sildenafil Citrate (Sildenafil) 20 Mg Tablet, 20 MG PO TID, (Reported) Entered as Reported by: Linh Cat on 08/11/21 1009 Last Action: Reviewed Simvastatin (Simvastatin) 10 Mg Tablet, 10 MG PO HS, (Reported) Entered as Reported by: Linh Cat on 08/11/21 1009 Last Action: Reviewed Trazodone HCl (Trazodone HCl) 50 Mg Tablet, 150 MG PO HS, (Reported) Entered as Reported by: TROY HAQUE on 01/03/22 1127 Last Action: Reviewed Venlafaxine HCl (Venlafaxine HCl ER) 150 Mg Cap.er.24h, 150 MG PO DAILY, (Reported) Entered as Reported by: TEJA PORTILLO on 08/12/21 1217 Last Action: Reviewed Zinc Amino Acid Chelate (Zinc) 50 Mg Tablet, 50 MG PO DAILY, (Reported) Entered as Reported by: TEJA PORTILLO on 08/12/21 1323 Last Action: Reviewed Discontinued Medications Alprazolam (Alprazolam) 0.5 Mg Tablet, 0.5 MG PO BID PRN for ANXIETY Discontinued Reason: Duplicate Order Prescribed by: DEYA BAILEY on 12/05/21 1020 Last Action: Discontinued Betamethasone/Propylene Glyc (Betamethasone Dp Aug 0.05% Crm) 0.05 % Cream..g., 1 APPLIC TOP BID, (Reported) Discontinued Reason: No Longer Taking Entered as Reported by: TROY HAQUE on 12/03/21 1230 Last Action: Discontinued Buspirone HCl (Buspirone HCl) 7.5 Mg Tablet, 7.5 MG PO BID Discontinued Reason: No Longer Taking Prescribed by: DEYA BAILEY on 12/05/21 1020 Last Action: Discontinued Furosemide (Lasix) 40 Mg Tablet, 40 MG PO BID Discontinued Reason: No Longer Taking Prescribed by: DEYA BAILEY on 12/05/21 1020 Last Action: Discontinued Insulin Degludec (Tresiba Flextouch U-200) 200 Unit/Ml (3 Ml) Insuln.pen, 40 UNIT SQ HS, (Reported) Discontinued Reason: Duplicate Order Entered as Reported by: TEJA PORTILLO on 08/12/21 1319 Last Action: Discontinued Melatonin (Melatonin) 3 Mg Tablet, 10 MG PO HS Discontinued Reason: No Longer Taking Prescribed by: DEYA BAILEY on 12/05/21 1020 Last Action: Discontinued Trazodone HCl (Trazodone HCl) 50 Mg Tablet, 150 MG PO HS Discontinued Reason: Duplicate Order Prescribed by: DEYA BAILEY on 12/05/21 1020 Last Action: Discontinued Past Mphxlly-Xpmlee-Ikrfph Hx Patient Social History Marrital Status: single Employed/Student: retired Smoking Status: Never a Smoker Past Medical History Pneumonia, Sleep Apnea Cardiomyopathy, Chronic Edema/Swelling, Coronary Artery Disease, High Cholesterol, Hypertension Family Medical History Alzheimer's disease G8 SISTER Diabetes mellitus 19 FATHER Hypertension 19 FATHER 19 MOTHER Myocardial infarction 19 FATHER 19 MOTHER Neoplasm G8 SISTER Review of Systems Constitutional: see HPI Physical Exam General Appearance: No Apparent Distress, Anxious, Chronically ill, Obese Eyes: Bilateral Eye Normal Inspection, Bilateral Eye PERRL, Bilateral Eye EOMI HEENT: PERRL/EOMI, Normal ENT Inspection, Pharynx Normal Neck: Full Range of Motion, Normal Inspection, Non Tender, Supple, Carotid Bruit Respiratory: Chest Non Tender, No Accessory Muscle Use, No Respiratory Distress, Crackles (at bases), Decreased Breath Sounds (bilaterally), Wheezing Cardiovascular: Regular Rate, Rhythm, No Gallop, No JVD, No Murmur, Normal Peripheral Pulses Gastrointestinal: Normal Bowel Sounds, No Organomegaly, No Pulsatile Mass, Non Tender, Soft Back: Normal Inspection, No CVA Tenderness, No Vertebral Tenderness Extremity: Normal Capillary Refill, Normal Inspection, Normal Range of Motion, Non Tender, No Calf Tenderness, Pedal Edema Neurologic/Psychiatric: Alert, Oriented x3, No Motor/Sensory Deficits, Normal Mood/Affect Skin: Normal Color, Warm/Dry Lymphatic: No Adenopathy Assessment/Plan Assessment and Plan CHF exacerbation Pulmonary hypertension Diabetes insulin-dependent Chronic kidney disease Admission Diagnosis Admission Status: Inpatient Order (span 2 midnights) Reason for Inpatient Admission: Severe CHF with chronic kidney disease Supervisory-Addendum Brief Verification & Attestation Participated in pt care: history, MDM, physical Personally performed: exam, history, MDM, supervision of care Care discussed with: Medical Student Procedures: n/a Results interpretation: Verified all documentation Verification and Attestation of Medical Student E/M Service A medical student performed and documented this service in my presence. I reviewed and verified all information documented by the medical student and made modifications to such information, when appropriate. I personally performed the physical exam and medical decision making. Deya Bailey, Jan 04, 2022,05:38 MIKE HUNTLEY Jan 03, 2022 14:03 DEYA BAILEY DO Jan 04, 2022 05:38
[2022-01-03] MEDS ORDERED: LACTATED RINGERS 1,000 ML IV PRN (14:15)
[2022-01-03] MEDS ORDERED: LIDOCAINE/EPI 1%-1:100,000 (XYLOCAINE) 10 ML ONE (14:49)
[2022-01-03] MEDS ORDERED: 0.9% SODIUM CHLORIDE PF INJ 20 ML VIAL ONE (14:49)
[2022-01-03] MEDS ORDERED: HEParin (CENTRAL IV FLUSH) 500 UNIT/5 ML SYR ONE (14:49)
[2022-01-03] MEDS ORDERED: KETAMINE 50 MG/5 ML SYRINGE ONE (15:08)
[2022-01-03] MEDS ORDERED: MIDAZOLAM 2 MG/2 ML (VERSED) VIAL ONE (15:12)
[2022-01-03] MEDS ORDERED: CLINDAMYCIN 600 MG/50 ML IVPB 50 ML IV ONE ×2 (15:30→15:32)
[2022-01-03] MEDS ORDERED: LIDOCAINE/EPI 1%-1:100,000 (XYLOCAINE) 10 ML INJ ONE (15:36)
[2022-01-03] MEDS ORDERED: 0.9% SODIUM CHLORIDE PF INJ 20 ML VIAL IV ONE (15:38)
[2022-01-03] MEDS ORDERED: HEParin (CENTRAL IV FLUSH) 500 UNIT/5 ML SYR IV ONE (15:39)
[2022-01-03] MEDS ORDERED: NS IV 500 ML 500 ML IV PRN (15:45)
[2022-01-03] MEDS ORDERED: proPOfol 200 MG/20 ML (DIPRIVAN) VIAL IV ONE (15:47)
--- NOTE | 2022-01-03 17:10 | Consultation-Cardiology ---
HPI-Cardiology Cardiology Consultation: Date of Consultation 01/03/22 Date of Admission 01/02/2022 Attending Physician Deya Bailey DO Admitting Physician Admitting Physician: Deya Bailey DO Attending Physician: Deya Bailey DO Consulting Physician JEANMARIE GRIFFITH JR, MD HPI: Time Seen by a Provider: 17:05 Chief Complaint: REASON FOR CONSULTATION: Heart failure. I had the pleasure of seeing Rhea on the medical/surgical unit at [facility] in [place], [place] today. She is known to me from previous hospitalizations as well as the office. She has a history of chronic heart failure with preserved ejection fraction, mitral stenosis, pulmonary hypertension, hypertension, hyperlipidemia, type 2 diabetes mellitus, stage III chronic kidney disease, chronic respiratory failure with hypoxia, and morbid obesity among other less clinically significant issues. I actually had just seen her in the office in couple of weeks ago and at that time she had been doing reasonably well. She states that about 3 to 4 days ago she started developing increasing dyspnea on exertion, paroxysmal nocturnal dyspnea, orthopnea and worsening lower extremity edema. She called her primary care provider's office and went to see Dr. Bailey yesterday and was admitted to the hospital due to heart failure. She also had a recent subcutaneous central line placed due to difficult peripheral venous access. When she presented to the hospital, the staff had trouble accessing the port and she just came back from the operating room after having the port revised by Dr. Pulido. Because of the heart failure, a cardiology consultation was requested. When she arrived in the hospital, she was treated with intravenous furosemide. Her breathing has already started to improve. When she was having her worst episodes of shortness of breath, she would also have tightness in her chest. She has also been having some lightheaded spells but denies any syncope. She denies any heart palpitati ons. Certain portions of this document may have been dictated utilizing voice recognition technology. Inherent to this technology, typographical and grammatical errors may exist. As much as I am diligent to identify and correct these mistakes, some errors may remain in the document. Review of Systems-Cardiology Review of Systems : No Other comments Review of 10 organ systems is as per the history of present illness, otherwise negative. JPS-Kdflsi-Dnvpgb Hx Patient Social History Smoking Status: Never a Smoker 2nd Hand Smoke Exposure: No Have you traveled recently?: No Alcohol Use?: No Pt feels they are or have been: No Immunizations Up To Date Tetanus Booster (TDap): Unknown Date of Pneumonia Vaccine: Feb 05, 2017 Date of Influenza Vaccine: Dec 05, 2021 Past Medical History PMH As described under Assessment. Family Medical History Family Medical History: Both of her parents of heart disease at a young age. Family History: Alzheimer's disease G8 SISTER Diabetes mellitus 19 FATHER Hypertension 19 FATHER 19 MOTHER Myocardial infarction 19 FATHER 19 MOTHER Neoplasm G8 SISTER Allergies and Home Medications Allergies Coded Allergies: Penicillins (Verified Allergy, Unknown, VOMITING, 12/09/21) meperidine (Verified Allergy, Unknown, VOMITING, 12/09/21) morphine (Unverified Allergy, Unknown, RASH, BREATHING DIFFICULTY, 12/09/21) propoxyphene (Verified Allergy, Unknown, 12/09/21) topiramate (Verified Allergy, Unknown, LOSS OF EYESIGHT, 12/09/21) codeine (Verified Adverse Reaction, Unknown, UPSET STOMACH, 12/09/21) dapagliflozin (Verified Adverse Reaction, Unknown, yeast infection, 12/09/21) Patient Home Medication List Home Medication List Reviewed: Yes Acetaminophen (Tylenol Extra Strength) 500 Mg Tablet, 1,000 MG PO BID PRN for PAIN-MILD, (Reported) Entered as Reported by: MOODY FRANCO on 11/02/171631 Last Action: Reviewed Albuterol Sulfate (Ventolin Hfa) 90 Mcg Hfa.aer.ad, 2 PUFF INH Q6H PRN for SHORTNESS OF BREATH, (Reported) Entered as Reported by: TROY HAQUE on 01/03/221126 Last Action: Reviewed Alprazolam (Alprazolam) 0.5 Mg Tablet, 0.5 MG PO BID PRN for ANXIETY, (Reported) Entered as Reported by: TROY HAQUE on 01/03/221126 Last Action: Reviewed Ascorbate Calcium (Vitamin C) 500 Mg Tablet, 500 MG PO DAILY, (Reported) Entered as Reported by: TEJA PORTILLO on 08/12/21 1323 Last Action: Reviewed Aspirin (Aspirin EC) 81 Mg Tablet.dr, 81 MG PO DAILY, (Reported) Entered as Reported by: MOODY FRANCO on 11/02/17 163 Last Action: Reviewed Budesonide (Budesonide) 0.5 Mg/2 Ml Ampul.neb, 0.5 MG IH BID, (Reported) Entered as Reported by: TEJA PORTILLO on 08/12/21 1503 Last Action: Reviewed Buspirone HCl (Buspirone HCl) 5 Mg Tablet, 5 MG PO BID, (Reported) Entered as Reported by: TROY HAQUE on 01/03/22 112 Last Action: Reviewed Cholecalciferol (Vitamin D3) (Vitamin D3) 125 Mcg (5000 Unit) Tablet, 125 MCG PO DAILY, (Reported) Entered as Reported by: TEJA PORTILLO on 08/12/21 1324 Last Action: Reviewed Formoterol Fumarate (Perforomist) 20 Mcg/2 Ml Vial.neb, 20 MCG IH BID, (Repor ketan) Entered as Reported by: TEJA PORTILLO on 08/12/21 1503 Last Action: Reviewed Furosemide (Furosemide) 40 Mg Tablet, 40 MG PO DAILY, (Reported) Entered as Reported by: TROY HAQUE on 01/03/221126 Last Action: Reviewed Furosemide (Furosemide) 40 Mg Tablet, 40 MG PO 1400 PRN for EXCESS FLUID, (Reported) Entered as Reported by: TROY HAQUE on 01/03/221126 Last Action: Reviewed Gabapentin (Neurontin) 300 Mg Capsule, 300 MG PO QID, (Reported) Entered as Reported by: TEJA PORTILLO on 08/12/21 1320 Last Action: Reviewed Insulin Aspart (Insulin Aspart Flexpen) 100 Unit/Ml (3 Ml) Insuln.pen, 6 UNIT SQ DAILY, (Reported) Entered as Reported by: Linh Cat on 08/11/21 1009 Last Action: Reviewed Insulin Degludec (Tresiba Flextouch U-200) 200 Unit/Ml (3 Ml) Insuln.pen, 30 UNITS SC BID, (Reported) Entered as Reported by: MOODY FRANCO on 11/02/17 1632 Last Action: Reviewed Levothyroxine Sodium (Levothyroxine Sodium) 125 Mcg Tablet, 125 MCG PO DAILY, (Reported) Entered as Reported by: ALHAJI HORTA on 09/13/19 0833 Last Action: Reviewed Losartan Potassium (Losartan Potassium) 50 Mg Tablet, 50 MG PO DAILY, (Reported) Entered as Reported by: MOODY FRANCO on 11/02/17 1632 Last Action: Reviewed Melatonin (Melatonin) 3 Mg Tablet, 3 MG PO HS, (Reported) Entered as Reported by: TROY HAQUE on 01/03/22 112 Last Action: Reviewed Metoprolol Succinate (Metoprolol Succinate) 25 Mg Tab.er.24h, 25 MG PO DAILY, (Reported) Entered as Reported by: MOODY FRANCO on 11/02/17 1632 Last Action: Reviewed Montelukast Sodium (Montelukast Sodium) 10 Mg Tablet, 10 MG PO HS, (Reported) Entered as Reported by: TROY HAQUE on 06/20/20 140 Last Action: Reviewed Pantoprazole Sodium (Pantoprazole Sodium) 40 Mg Tablet.dr, 40 MG PO DAILY, (Reported) Entered as Reported by: ALHAJI HORTA on 09/13/19 0884 Last Action: Reviewed Potassium Chloride (Potassium Chloride) 10 Meq Tab.er.prt, 10 MEQ PO DAILY, (Reported) Entered as Reported by: TROY HAQUE on 06/20/20 140 Last Action: Reviewed Promethazine HCl (Promethazine Tablet) 25 Mg Tablet, 25 MG PO Q6H PRN for NAUSEA/VOMITING-2ND LINE, (Reported) Entered as Reported by: TROY HAQUE on 12/03/21 1230 Last Action: Reviewed Revefenacin (Yupelri) 175 Mcg/3 Ml Vial.neb, 175 MCG IH 1200, (Reported) Entered as Reported by: TEJA PORTILLO on 08/12/21 1504 Last Action: Reviewed Sildenafil Citrate (Sildenafil) 20 Mg Tablet, 20 MG PO TID, (Reported) Entered as Reported by: Linh Cat on 08/11/21 1009 Last Action: Reviewed Simvastatin (Simvastatin) 10 Mg Tablet, 10 MG PO HS, (Reported) Entered as Reported by: Linh Cat on 08/11/21 1009 Last Action: Reviewed Trazodone HCl (Trazodone HCl) 50 Mg Tablet, 150 MG PO HS, (Reported) Entered as Reported by: TROY HAQUE on 01/03/22 1127 Last Action: Reviewed Venlafaxine HCl (Venlafaxine HCl ER) 150 Mg Cap.er.24h, 150 MG PO DAILY, (Reported) Entered as Reported by: TEJA PORTILLO on 08/12/21 1217 Last Action: Reviewed Zinc Amino Acid Chelate (Zinc) 50 Mg Tablet, 50 MG PO DAILY, (Reported) Entered as Reported by: TEJA PORTILLO on 08/12/21 1323 Last Action: Reviewed Discontinued Medications Alprazolam (Alprazolam) 0.5 Mg Tablet, 0.5 MG PO BID PRN for ANXIETY Discontinued Reason: Duplicate Order Prescribed by: DEYA BAILEY on 12/05/21 1020 Last Action: Discontinued Betamethasone/Propylene Glyc (Betamethasone Dp Aug 0.05% Crm) 0.05 % Cream..g., 1 APPLIC TOP BID, (Reported) Discontinued Reason: No Longer Taking Entered as Reported by: TROY HAQUE on 12/03/21 1230 Last Action: Discontinued Buspirone HCl (Buspirone HCl) 7.5 Mg Tablet, 7.5 MG PO BID Discontinued Reason: No Longer Taking Prescribed by: DEYA BAILEY on 12/05/21 1020 Last Action: Discontinued Furosemide (Lasix) 40 Mg Tablet, 40 MG PO BID Discontinued Reason: No Longer Taking Prescribed by: DEYA BAILEY on 12/05/21 1020 Last Action: Discontinued Insulin Degludec (Tresiba Flextouch U-200) 200 Unit/Ml (3 Ml) Insuln.pen, 40 UNIT SQ HS, (Reported) Discontinued Reason: Duplicate Order Entered as Reported by: TEJA PORTILLO on 08/12/21 1319 Last Action: Discontinued Melatonin (Melatonin) 3 Mg Tablet, 10 MG PO HS Discontinued Reason: No Longer Taking Prescribed by: DEYA BAILEY on 12/05/21 1020 Last Action: Discontinued Trazodone HCl (Trazodone HCl) 50 Mg Tablet, 150 MG PO HS Discontinued Reason: Duplicate Order Prescribed by: DEYA BAILEY on 12/05/21 1020 Last Action: Discontinued Exam Vital Signs Vital Signs Date Time Temp Pulse Resp B/P (MAP) Pulse Ox O2 Delivery O2 Flow Rate FiO2 01/03/22 16:35 36.5 77 20 115/72 (86) 100 Nasal Cannula 4.00 01/02/22 18:25 32 Physical Exam General: Alert. No acute distress. Well nourished and appears stated age. She is morbidly obese. Eye: Extraocular movements are intact. Conjunctivae are clear. There are no xanthelasma. HENT: Normocephalic. Atraumatic. Carotid pulsations 2/2 without bruits. Neck: Jugular venous pressure does not appear elevated. No thyromegaly appreciated. Respiratory: Lungs are clear to auscultation. Respirations are non-labored. Breath sounds are equal. Symmetrical chest wall expansion. Cardiovascular: Normal rate. Regular rhythm. Distant S1/S2. 2/6 systolic ejection murmur. No gallop. Point of maximal impulse is not appear displaced. Good pulses equal in all extremities. 1+ bilateral pretibial edema. Gastrointestinal: Soft. Normal bowel sounds. Skin: Skin turgor is normal. There is no pallor. Musculoskeletal: No kyphosis or scoliosis appreciated. Neurologic: Alert and oriented to person, place, time. Cranial nerves 3-12 appear grossly intact. The patient has good motor tone strength in the upper and lower extremities bilaterally. Psychiatric: Cooperative. Appropriate mood & affect. Labs Laboratory Tests Test 01/02/22 17:25 01/02/22 20:20 01/03/22 05:05 01/03/22 05:08 Range/Units White Blood Count 9.7 9.0 4.3-11.0 10^3/uL Red Blood Count 3.16 L 2.98 L 3.80-5.11 10^6/uL Hemoglobin 10.1 L 9.7 L 11.5-16.0 g/dL Hematocrit 34 L 31 L 35-52 % Mean Corpuscular Volume 106 H 105 H 80-99 fL Mean Corpuscular Hemoglobin 32 33 25-34 pg Mean Corpuscular Hemoglobin Concent 30 L 31 L 32-36 g/dL Red Cell Distribution Width 13.1 13.2 10.0-14.5 % Platelet Count 152 135 130-400 10^3/uL Mean Platelet Volume 9.9 9.5 9.0-12.2 fL Immature Granulocyte % (Auto) 0 0 % Neutrophils (%) (Auto) 84 H 77 H 42-75 % Lymphocytes (%) (Auto) 9 L 12 12-44 % Monocytes (%) (Auto) 4 6 0-12 % Eosinophils (%) (Auto) 2 4 0-10 % Basophils (%) (Auto) 1 1 0-10 % Neutrophils # (Auto) 8.1 H 6.9 1.8-7.8 10^3/uL Lymphocytes # (Auto) 0.9 L 1.1 1.0-4.0 10^3/uL Monocytes # (Auto) 0.4 0.5 0.0-1.0 10^3/uL Eosinophils # (Auto) 0.2 0.4 H 0.0-0.3 10^3/uL Basophils # (Auto) 0.1 0.1 0.0-0.1 10^3/uL Immature Granulocyte # (Auto) 0.0 0.0 0.0-0.1 10^3/uL Sodium Level 139 143 135-145 MMOL/L Potassium Level 4.6 4.1 3.6-5.0 MMOL/L Chloride Level 100 101 98-107 MMOL/L Carbon Dioxide Level 30 32 21-32 MMOL/L Anion Gap 9 10 5-14 MMOL/L Blood Urea Nitrogen 32 H 33 H 7-18 MG/DL Creatinine 1.46 H 1.40 H 0.60-1.30 MG/DL Estimat Glomerular Filtration Rate 39 41 BUN/Creatinine Ratio 22 24 Glucose Level 161 H 104 70-105 MG/DL Calcium Level 8.4 L 8.4 L 8.5-10.1 MG/DL Corrected Calcium 8.9 9.0 8.5-10.1 MG/DL Total Bilirubin 0.4 0.3 0.1-1.0 MG/DL Aspartate Amino Transf (AST/SGOT) 35 H 24 5-34 U/L Alanine Aminotransferase (ALT/SGPT) 30 26 0-55 U/L Alkaline Phosphatase 112 102 40-136 U/L B-Type Natriuretic Peptide 1271.3 H <100.0 PG/ML Total Protein 6.8 6.4 6.4-8.2 GM/DL Albumin 3.4 3.2 3.2-4.5 GM/DL Glucometer 139 H 116 H 70-110 MG/DL Test 01/03/22 11:02 01/03/22 16:33 Range/Units Glucometer 202 H 81 70-110 MG/DL Radiology ECHOCARDIOGRAM (11/29/2021): 1. This is a technically difficult study due to poor image quality secondary to poor acoustic windows. Intravenous contrast was planned however IV access could not be obtained. 2. Normal left ventricular chamber size with moderate concentric hypertrophy. Normal left ventricular systolic function with an estimated ejection fraction of 60-65%. There is flattening of the intraventricular septum consistent with right ventricular pressure and/or volume overload. 3. The left ventricular diastolic function is indeterminate. 4. The right ventricle is mildly dilated measuring 3.5 cm at the base but with normal systolic function. TAPSE 1.7 cm. 5. The left atrium is mildly dilated with a volume index of 37 mL/m. 6. There is mild-moderate mitral stenosis with a mean gradient of 9 mmHg, a pressure half-time of 117 ms and a calculated mitral valve area of 1.9 cm. 7. There is mild aortic valve sclerosis. There is mild aortic regurgitation although an accurate pressure half-time could not be obtained. 8. There is moderate-severe tricuspid regurgitation. 9. The estimated pulmonary artery systolic pressure is 65 mmHg assuming a right atrial pressure of 5 mmHg. 10. Compared to the previous study from 05/22/2021, the estimated pulmonary artery systolic pressure is similar on both studies. The previous study did not have adequate Doppler on the mitral valve to assess for mitral stenosis but this study confirms the patient has mild-moderate mitral stenosis. Diagnosis/Problems Diagnosis/Problems (1) Acute on chronic heart failure with preserved ejection fraction (HFpEF) Status: Acute Assessment & Plan: I am not entirely clear why this occurred. She states that she has been very careful with sodium restriction at home. She has been taking all of her medications judiciously. She does have chronic kidney disease which is likely contributing to the heart failure. She has responded to intravenous diuretic. I would continue the intravenous diuretic until we start seeing a change in her renal function. (2) Pulmonary hypertension Status: Chronic Assessment & Plan: This is most likely multifactorial. She is takes sildenafil for the pulmonary hypertension under the direction of her specimen collector. (3) Mitral stenosis Status: Chronic Assessment & Plan: She appeared to have mild to moderate mitral stenosis on her most recent echocardiogram outlined above. I would not suspect this to be contributing to the heart failure but will certainly need to be followed longitudinally. (4) Primary hypertension Status: Chronic Assessment & Plan: She has been normotensive on losartan and metoprolol succinate which she takes at home. (5) Mixed hyperlipidemia Status: Chronic Assessment & Plan: Continue simvastatin. (6) Stage 3a chronic kidney disease Status: Chronic Assessment & Plan: We will need to watch her renal function closely with the intravenous diuretics. She actually has an appointment to see optometric aide at [facility] in the next few weeks. (7) Type 2 diabetes mellitus with complication Status: Chronic Assessment & Plan: This is being managed by the hospital team. (8) Morbid obesity Status: Chronic Assessment & Plan: She needs to work on weight loss. She has been counseled about this numerous times in the past. JEANMARIE GRIFFITH JR, MD Jan 03, 2022 17:10
[2022-01-03] MEDS ORDERED: PROMETHAZINE 25 MG (PHENERGAN) TAB PO PRN (20:00)
[2022-01-03] MEDS: RT-BUDESONIDE NEBS 0.5 MG/2ML (PULMICORT) AMP IH SCH (20:19)
[2022-01-03] MEDS: MELATONIN 10 MG TABLET PO SCH (20:39)
[2022-01-03] MEDS: traZODone 50 MG (DESYREL) TAB PO SCH (20:42)
[2022-01-03] MEDS: GABAPENTIN 300 MG (NEURONTIN) CAP PO SCH (20:43)
[2022-01-03] MEDS: [UNRECOGNIZED DRUG - REMARK] PO SCH (20:48)
[2022-01-03] MEDS: SILDENAFIL CITRATE PO SCH (20:49)
[2022-01-03] MEDS: MONTELUKAST 10 MG (SINGULAIR) TAB PO SCH (20:49)
[2022-01-03] MEDS: TRESIBA FLEXTOUCH U-100 SQ SCH (20:59)
[2022-01-03] MEDS: ALPRAZolam 0.5 MG (XANAX) TAB PO PRN (20:59)
[2022-01-03] MEDS ORDERED: NON-FORMULARY MEDICATION 1 EA EA (Formoterol Fumarate (Perforomist) 20 MCG) IH SCH (21:00)
--- NOTE | 2022-01-03 22:39 | OPERATIVE REPORT ---
DATE OF SERVICE: 01/03/2022 PREOPERATIVE DIAGNOSIS: Malfunctioning port. POSTOPERATIVE DIAGNOSIS: Malfunctioning port. PROCEDURE: Revision of port, right chest. SURGEON: Marily Pulido DO ANESTHESIA: MAC with local. ESTIMATED BLOOD LOSS: Minimal. COMPLICATIONS: None. INDICATIONS: The patient is a 66-year-old female, who had a port placed approximately 4 weeks ago. It was malfunctioned, not able to be accessed. It feels like it has flipped. She understands risks and benefits of procedure and wishes to proceed. Consent was signed in the chart. DESCRIPTION OF PROCEDURE: The patient was taken to the operating suite. She was prepped and draped in sterile fashion. Timeout was performed. Local anesthetic was infiltrated. A 15 blade scalpel was used to make a small skin incision over the port, which was then hemostat was used to dissect down through the subcutaneous tissues, port was encountered, it was slightly rotated. This was then brought out through the incision and pocket was then mobilized slightly. The port was then able to be placed back into it, the port was then accessed without difficulty. The port was then had blood drawn and flushed with saline without difficulty. It was then flushed with heparin as well. This port was left accessed. The subcutaneous tissues were then reapproximated using 3-0 Vicryl and then Skin Affix was placed over the incision after it was washed and dried. The patient tolerated the procedure well without any complications. She was taken to recovery room in stable condition. Job ID: [id number] DocumentID: [id number] Dictated Date: 01/03/2022 17:46:51 Naphthalene Still Operator Date: 01/03/2022 22:39:42 Dictated By: MARILY PULIDO DO
[2022-01-04] VITALS: BP 110/65
[2022-01-04 04:00] VITALS: BP 132/74
[2022-01-04] MEDS: LEVOTHYROXINE 125 MCG (LEVOTHROID) TABLET PO SCH (05:53)
[2022-01-04 05:54] LABS: BASOPHILS # (AUTO) 0.1 10^3/uL (0.0-0.1); BASOPHILS % (AUTO) 1 % (0-10); EOSINOPHILS # (AUTO) 0.4 10^3/uL (0.0-0.3); EOSINOPHILS % (AUTO) 4 % (0-10); HEMATOCRIT 33 % (35-52); HEMOGLOBIN 9.9 g/dL (11.5-16.0); LYMPHOCYTES # (AUTO) 1.1 10^3/uL (1.0-4.0); LYMPHOCYTES % (AUTO) 11 % (12-44); MEAN CORPUSCULAR HEMOGLOBIN 33 pg (25-34); MEAN CORPUSCULAR HGB CONC 31 g/dL (32-36); MEAN CORPUSCULAR VOLUME 107 fL (80-99); MEAN PLATELET VOLUME 9.5 fL (9.0-12.2); MONOCYTES # (AUTO) 0.5 10^3/uL (0.0-1.0); MONOCYTES % (AUTO) 5 % (0-12); NEUTROPHILS # (AUTO) 7.2 10^3/uL (1.8-7.8); NEUTROPHILS % (AUTO) 79 % (42-75); PLATELET COUNT 141 10^3/uL (130-400); WHITE BLOOD COUNT 9.2 10^3/uL (4.3-11.0)
[2022-01-04] MEDS: inSUlin ASPART (NovoLOG) 1 UNIT/0.01 ML (CHARGE PER UNIT) SC SCH ×4 (05:54→21:05)
[2022-01-04 06:25] LABS: ALBUMIN 3.3 GM/DL (3.2-4.5)
[2022-01-04 06:26] LABS: POTASSIUM 4.2 MMOL/L (3.6-5.0)
[2022-01-04 06:27] LABS: CALCIUM 8.3 MG/DL (8.5-10.1)
[2022-01-04 06:28] LABS: TOTAL PROTEIN 6.6 GM/DL (6.4-8.2)
[2022-01-04 06:30] LABS: BILIRUBIN,TOTAL 0.4 MG/DL (0.1-1.0)
[2022-01-04 06:32] LABS: CREATININE SERUM 1.33 MG/DL (0.60-1.30)
[2022-01-04 07:26] VITALS: BP 159/79
--- NOTE | 2022-01-04 08:03 | Progress Note ---
Subjective Date Seen by a Provider: Jan 04, 2022 Time Seen by a Provider: 11:00 Subjective/Events-last exam Patient doing much better Diuresis working really well IV Lasix tolerated Reviewed meds and labs Spoke with Dr. Quinones Home meds restarted Bran catheter still in place Creatinine good Review of Systems General: Fatigue Objective Exam Last Set of Vital Signs Vital Signs Date Time Temp Pulse Resp B/P (MAP) Pulse Ox O2 Delivery O2 Flow Rate FiO2 01/04/22 07:26 36.1 89 22 159/79 (105) 100 High Flow N/C 4.00 4.00 01/02/22 18:25 32 Capillary Refill : I&O Intake and Output 01/04/22 00:00 Intake Total 1270 ml Output Total 2425 ml Balance -1155 ml Intake Oral 1020 ml IV Total 250 ml Output Urine Total 2425 ml General: Alert, Oriented X3, Cooperative, No Acute Distress Lungs: Clear to Auscultation, Normal Air Movement Heart: Regular Rate, Normal S1, Normal S2, No Murmurs Psych/Mental Status: Mental Status NL, Mood NL Results Lab Laboratory Tests 01/03/22 11:02: Glucometer 202H 01/03/22 16:33: Glucometer 81 01/03/22 20:04: Glucometer 134H 01/04/22 05:40: White Blood Count 9.2, Red Blood Count 3.03L, Hemoglobin 9.9L, Hematocrit 33L, Mean Corpuscular Volume 107H, Mean Corpuscular Hemoglobin 33, Mean Corpuscular Hemoglobin Concent 31L, Red Cell Distribution Width 13.3, Platelet Count 141, Mean Platelet Volume 9.5, Immature Granulocyte % (Auto) 0, Neutrophils (%) (Auto) 79H, Lymphocytes (%) (Auto) 11L, Monocytes (%) (Auto) 5, Eosinophils (%) (Auto) 4, Basophils (%) (Auto) 1, Neutrophils # (Auto) 7.2, Lymphocytes # (Auto) 1.1, Monocytes # (Auto) 0.5, Eosinophils # (Auto) 0.4H, Basophils # (Auto) 0.1, Immature Granulocyte # (Auto) 0.0, Sodium Level 140, Potassium Level 4.2, Chloride Level 101, Carbon Dioxide Level 31, Anion Gap 8, Blood Urea Nitrogen 31H, Creatinine 1.33H, Estimat Glomerular Filtration Rate 44, BUN/Creatinine Ratio 23, Glucose Level 120H, Calcium Level 8.3L, Corrected Calcium 8.9, Total Bilirubin 0.4, Aspartate Amino Transf (AST/SGOT) 19, Alanine Aminotransferase (ALT/SGPT) 21, Alkaline Phosphatase 103, Total Protein 6.6, Albumin 3.3 01/04/22 05:41: Glucometer 117H Assessment/Plan Assessment/Plan Assess & Plan/Chief Complaint Assessment: Acute on chronic congestive heart failure Severe pulmonary hypertension Volume overload Severe anxiety Diabetes Chronic kidney disease Plan: IV Lasix Bran catheter Supportive care Clinical Quality Measures Admission Status Admission Dx CHF exacerbation Pulmonary hypertension Diabetes insulin-dependent Chronic kidney disease FERN BAILEY DO Jan 04, 2022 08:03
[2022-01-04] MEDS: RT-ALBUTEROL SULF 2.5 MG/3 ML PRE-MIX VIAL INH SCH ×2 (08:20→21:14)
[2022-01-04] MEDS: RT-BUDESONIDE NEBS 0.5 MG/2ML (PULMICORT) AMP IH SCH ×2 (08:20→21:14)
[2022-01-04] MEDS ORDERED: FUROSEMIDE 40 MG/4 ML INJ (LASIX) IVP SCH (09:00)
[2022-01-04] MEDS: busPIRone 5 MG (BUSPAR) TAB PO SCH ×2 (09:39→21:05)
[2022-01-04] MEDS: ASPIRIN E.C. 81 MG (ECOTRIN) TAB PO SCH (09:39)
[2022-01-04] MEDS: [UNRECOGNIZED DRUG - REMARK] PO SCH (09:41)
[2022-01-04] MEDS: SILDENAFIL CITRATE PO SCH ×3 (09:42→21:01)
[2022-01-04] MEDS: DOCUSATE SODIUM 100 MG (COLACE) CAP PO SCH ×2 (09:43→21:05)
[2022-01-04] MEDS: KCL 10 MEQ TAB (MICRO K) PO SCH (09:44)
[2022-01-04] MEDS: LOSARTAN 50 MG (COZAAR) TAB PO SCH (09:44)
[2022-01-04] MEDS: PANTOPRAZOLE 40 MG (PROTONIX) TAB PO SCH (09:45)
[2022-01-04] MEDS: GABAPENTIN 300 MG (NEURONTIN) CAP PO SCH ×4 (09:45→21:00)
[2022-01-04] MEDS: SENNOSIDES 8.6 MG (SENOKOT) TAB PO SCH ×2 (09:45→21:05)
[2022-01-04] MEDS: TRESIBA FLEXTOUCH U-100 SQ SCH ×2 (09:56→21:04)
[2022-01-04] MEDS: FUROSEMIDE 40 MG/4 ML INJ (LASIX) IVP SCH (10:11)
--- NOTE | 2022-01-04 11:53 | Physical Therapy Daily Note ---
PT Daily Note-Current Subjective Pt up in chair with friend present at bedside. Pt agreeable to PT treatment, rates LBP at 8/10. Pain Section J - Health Conditions 1. Rarely or not at all 2. Occasionally 3. Frequently 4. Almost constantly 8. Unable to answer Pain Effect on Sleep: 2 Pain Interference with Therapy: 2 Pain Interference w/Day-to-Day: 2 Appearance Following session, pt up in chair with call light, phone and tray table all within reach. All needs met Mental Status Patient Orientation: Person, Place, Situation Attachments: Oxygen (4L) Transfers SCALE: Activities may be completed with or without assistive devices. 1-Ulghwzlmqz-mzqsmwm completes the activity by him/herself with no assistance from a helper. 5-Set-up or Clean-up Assistance-helper sets up or cleans up; patient completes activity. [place] assists only prior to or following the activity. 4-Supervision or Touching Assistance-helper provides verbal cues and/or touching/steadying and/or contact guard assistance as patient completes activity. Assistance may be provided throughout the activity or intermittently. 3-Partial/Moderate Assistance-helper does LESS THAN HALF the effort. [place] lifts, holds or supports trunk or limbs, but provides less than half the effort. 2-Substantial/Maximal Assistance-helper does MORE THAN HALF the effort. [place] lifts or holds trunk or limbs and provides more than half the effort. 4-Ogzrxecgn-snydsu does ALL the effort. Patient does none of the effort to complete the activity. Or, the assistance of 2 or more helpers is required for the patient to complete the activity. If activity was not attempted, code reason: 7-Patient Refused. 9-Not Applicable-not attempted and the patient did not perform the activity before the current illness, exacerbation or injury. 10-Not Attempted due to Environmental Limitations-(lack of equipment, weather restraints, etc.). 88-Not Attempted due to Medical Conditions or Safety Concerns. Sit to Stand (QC): 4 Weight Bearing Right Lower Extremity: Right Weight Bearing/Tolerated Left Lower Extremity: Left Weight Bearing/Tolerated Gait Training Distance: 150' Walk 150 ft (QC): 4 Gait Assistive Device: FWW SBA for management of O2 tank Assessment Current Status: Good Progress Pt somewhat limited by LBP this date. PT Ore Crusher Goals Ore Crusher Goals PT Longterm Goals Time Frame: Jan 11, 2022 Roll Left & Right (QC): 6 Sit to Lying (QC): 6 Lying-Sitting on Side/Bed(QC): 6 Sit to Stand (QC): 6 Chair/Zvw-is-Tfcjv Xfer(QC): 6 Toilet Transfer (QC): 6 Walk 10 feet (QC): 6 Walk 50ft with 2 Turns (QC): 6 Walk 150 ft (QC): 6 PT Plan Problem List Problem List: Activity Tolerance, Functional Strength, Safety, Balance, Gait, Transfer, Bed Mobility, ROM Treatment/Plan Treatment Plan: Continue Plan of Care Treatment Plan: Education, Functional Activity Lola, Functional Strength, Gait, Safety, Therapeutic Exercise, Transfers Treatment Duration: Jan 11, 2022 Frequency: 6 times per week Estimated Hrs Per Day: .25 hour per day Patient and/or Family Agrees t: Yes Time Time In: 1125 Time Out: 1140 Total Billed Treatment Time: 15 Total Billed Treatment 1 visit GT (15') INDIO FLEMING PT Jan 04, 2022 11:53
[2022-01-04 12:03] VITALS: BP 112/70
--- NOTE | 2022-01-04 12:48 | Cardiology Progress Note ---
Progress Note-Cardiology Events since last exam Date Seen by Provider: Jan 04, 2022 Time Seen by Provider: 12:46 Events since last exam I am following her due to heart failure. Her breathing is improved but not quite back to baseline. She has had a little improvement in her peripheral edema. She denies chest pain, palpitations, or syncope. Certain portions of this document may have been dictated utilizing voice recognition technology. Inherent to this technology, typographical and grammatical errors may exist. As much as I am diligent to identify and correct these mistakes, some errors may remain in the document. Vitals Last set of Vitals Signs Vital Signs 01/02/22 01/04/22 01/04/22 18:25 09:05 12:03 Temp 36.7 Pulse 89 Resp 22 B/P (MAP) 112/70 (84) Pulse Ox 97 O2 Delivery High Flow N/C O2 Flow Rate 6.00 FiO2 32 Labs Labs Laboratory Tests 01/04/22 05:40 Exam Vital Signs Vital Signs Date Time Temp Pulse Resp B/P (MAP) Pulse Ox O2 Delivery O2 Flow Rate FiO2 01/04/22 12:03 36.7 89 22 112/70 (84) 97 6.00 01/04/22 09:05 High Flow N/C 01/02/22 18:25 32 Physical Exam General: Alert. No acute distress. She is morbidly obese. Eye: No xanthelasma. HENT: Normocephalic. Neck: Jugular venous pressure does not appear elevated. Respiratory: Lungs have bibasilar crackles. Respirations are non-labored. Breath sounds are equal. Symmetrical chest wall expansion. Cardiovascular: Normal rate. Regular rhythm. Distant S1/S2. 2/6 systolic ejection murmur. No gallop. 1+ bilateral pretibial edema with compression stockings in place. Gastrointestinal: Soft. Normal bowel sounds. Skin: Warm. Dry. Neurologic: Alert and oriented to person, place, time. Cranial nerves 3-11 grossly intact. Psychiatric: Cooperative. Appropriate mood & affect. Labs Laboratory Tests Test 01/03/22 16:33 01/03/22 20:04 01/04/22 05:40 01/04/22 05:41 Range/Units Glucometer 81 134 H 117 H 70-110 MG/DL White Blood Count 9.2 4.3-11.0 10^3/uL Red Blood Count 3.03 L 3.80-5.11 10^6/uL Hemoglobin 9.9 L 11.5-16.0 g/dL Hematocrit 33 L 35-52 % Mean Corpuscular Volume 107 H 80-99 fL Mean Corpuscular Hemoglobin 33 25-34 pg Mean Corpuscular Hemoglobin Concent 31 L 32-36 g/dL Red Cell Distribution Width 13.3 10.0-14.5 % Platelet Count 141 130-400 10^3/uL Mean Platelet Volume 9.5 9.0-12.2 fL Immature Granulocyte % (Auto) 0 % Neutrophils (%) (Auto) 79 H 42-75 % Lymphocytes (%) (Auto) 11 L 12-44 % Monocytes (%) (Auto) 5 0-12 % Eosinophils (%) (Auto) 4 0-10 % Basophils (%) (Auto) 1 0-10 % Neutrophils # (Auto) 7.2 1.8-7.8 10^3/uL Lymphocytes # (Auto) 1.1 1.0-4.0 10^3/uL Monocytes # (Auto) 0.5 0.0-1.0 10^3/uL Eosinophils # (Auto) 0.4 H 0.0-0.3 10^3/uL Basophils # (Auto) 0.1 0.0-0.1 10^3/uL Immature Granulocyte # (Auto) 0.0 0.0-0.1 10^3/uL Sodium Level 140 135-145 MMOL/L Potassium Level 4.2 3.6-5.0 MMOL/L Chloride Level 101 98-107 MMOL/L Carbon Dioxide Level 31 21-32 MMOL/L Anion Gap 8 5-14 MMOL/L Blood Urea Nitrogen 31 H 7-18 MG/DL Creatinine 1.33 H 0.60-1.30 MG/DL Estimat Glomerular Filtration Rate 44 BUN/Creatinine Ratio 23 Glucose Level 120 H 70-105 MG/DL Calcium Level 8.3 L 8.5-10.1 MG/DL Corrected Calcium 8.9 8.5-10.1 MG/DL Total Bilirubin 0.4 0.1-1.0 MG/DL Aspartate Amino Transf (AST/SGOT) 19 5-34 U/L Alanine Aminotransferase (ALT/SGPT) 21 0-55 U/L Alkaline Phosphatase 103 40-136 U/L Total Protein 6.6 6.4-8.2 GM/DL Albumin 3.3 3.2-4.5 GM/DL Test 01/04/22 10:11 Range/Units Glucometer 155 H 70-110 MG/DL Diagnosis/Problems Diagnosis/Problems (1) Acute on chronic heart failure with preserved ejection fraction (HFpEF) Status: Acute Assessment & Plan: I am not entirely clear why this occurred. She states that she has been very careful with sodium restriction at home. She has been taking all of her medications judiciously. She does have chronic kidney disease which is likely contributing to the heart failure. She has responded to intravenous diuretic. I would continue the intravenous diuretic until we start seeing a change in her renal function. Her renal function has actually improved somewhat since admission. (2) Pulmonary hypertension Status: Chronic Assessment & Plan: This is most likely multifactorial. She is takes sildenafil for the pulmonary hypertension under the direction of her sole painter. (3) Mitral stenosis Status: Chronic Assessment & Plan: She appeared to have mild to moderate mitral stenosis on her most recent echocardiogram outlined above. I would not suspect this to be contributing to the heart failure but will certainly need to be followed longitudinally. (4) Primary hypertension Status: Chronic Assessment & Plan: For the most part she has been normotensive on losartan and metoprolol succinate which she takes at home. (5) Mixed hyperlipidemia Status: Chronic Assessment & Plan: Continue simvastatin. (6) Stage 3a chronic kidney disease Status: Chronic Assessment & Plan: We will need to watch her renal function closely with the intravenous diuretics. She actually has an appointment to see hat measurer at [place] in the next few weeks. (7) Type 2 diabetes mellitus with complication Status: Chronic Assessment & Plan: This is being managed by the hospital team. (8) Morbid obesity Status: Chronic Assessment & Plan: She needs to work on weight loss. She has been counseled about this numerous times in the past. JEANMARIE GRIFFITH JR, MD Jan 04, 2022 12:48
[2022-01-04 15:33] VITALS: BP 136/65
--- NOTE | 2022-01-04 16:41 | Anesthesia-General Post-Op ---
MAC Patient Condition Mental Status/LOC: Same as Preop Cardiovascular: Satisfactory Nausea/Vomiting: Absent Respiratory: Satisfactory Pain: Controlled Complications: Absent Post Op Complications Complications None Follow Up Care/Instructions Patient Instructions None needed. Anesthesiology Discharge Order Discharge Order Patient is doing well, no complaints, stable vital signs, no apparent adverse anesthesia problems. No complications reported per nursing. LEON NAVARRO CRNA Jan 04, 2022 16:41
[2022-01-04 19:39] VITALS: BP 94/54
[2022-01-04] MEDS: ALPRAZolam 0.5 MG (XANAX) TAB PO PRN (20:58)
[2022-01-04] MEDS: MELATONIN 10 MG TABLET PO SCH (20:58)
[2022-01-04] MEDS: traZODone 50 MG (DESYREL) TAB PO SCH (21:00)
[2022-01-04] MEDS: MONTELUKAST 10 MG (SINGULAIR) TAB PO SCH (21:02)
[2022-01-04] MEDS: [UNRECOGNIZED DRUG - REMARK] PO SCH (21:04)
[2022-01-04] MEDS: ACETAMINOPHEN 325 MG TABLET PO PRN (21:10)
[2022-01-05] VITALS (7 sets, daily range): BP systolic 113–142; BP diastolic 53–77
[2022-01-05] MEDS: inSUlin ASPART (NovoLOG) 1 UNIT/0.01 ML (CHARGE PER UNIT) SC SCH ×4 (05:37→23:11)
[2022-01-05] MEDS: LEVOTHYROXINE 125 MCG (LEVOTHROID) TABLET PO SCH (05:40)
--- NOTE | 2022-01-05 06:16 | Progress Note ---
Subjective Date Seen by a Provider: Jan 05, 2022 Time Seen by a Provider: 12:00 Subjective/Events-last exam Patient doing much better Diuresis effective Labs reviewed Kidney function tolerating diuresis Review of Systems Pulmonary: Dyspnea Objective Exam Last Set of Vital Signs Vital Signs Date Time Temp Pulse Resp B/P (MAP) Pulse Ox O2 Delivery O2 Flow Rate FiO2 01/05/22 03:48 36.5 81 18 113/53 (73) 97 High Flow N/C 4.00 01/02/22 18:25 32 Capillary Refill : I&O Intake and Output 01/05/22 00:00 Intake Total 1464 ml Output Total 2600 ml Balance -1136 ml Intake Oral 1464 ml Output Urine Total 2600 ml General: Alert, Oriented X3, Cooperative, No Acute Distress Lungs: Clear to Auscultation, Normal Air Movement Heart: Regular Rate, Normal S1, Normal S2, No Murmurs Psych/Mental Status: Mental Status NL, Mood NL Results Lab Laboratory Tests 01/04/22 10:11: Glucometer 155H 01/04/22 15:43: Glucometer 143H 01/04/22 20:50: Glucometer 212H 01/05/22 05:30: Glucometer 90 Assessment/Plan Assessment/Plan Assess & Plan/Chief Complaint Assessment: Acute on chronic congestive heart failure Severe pulmonary hypertension Volume overload Severe anxiety Diabetes Chronic kidney disease Plan: IV Lasix Bran catheter Supportive care Clinical Quality Measures Admission Status Admission Dx CHF exacerbation Pulmonary hypertension Diabetes insulin-dependent Chronic kidney disease FERN BAILEY DO Jan 05, 2022 06:16
[2022-01-05 06:47] LABS: BASOPHILS # (AUTO) 0.1 10^3/uL (0.0-0.1); BASOPHILS % (AUTO) 1 % (0-10); EOSINOPHILS # (AUTO) 0.4 10^3/uL (0.0-0.3); EOSINOPHILS % (AUTO) 5 % (0-10); HEMATOCRIT 32 % (35-52); HEMOGLOBIN 9.6 g/dL (11.5-16.0); LYMPHOCYTES # (AUTO) 0.9 10^3/uL (1.0-4.0); LYMPHOCYTES % (AUTO) 11 % (12-44); MEAN CORPUSCULAR HEMOGLOBIN 33 pg (25-34); MEAN CORPUSCULAR HGB CONC 31 g/dL (32-36); MEAN CORPUSCULAR VOLUME 107 fL (80-99); MONOCYTES # (AUTO) 0.5 10^3/uL (0.0-1.0); MONOCYTES % (AUTO) 6 % (0-12); NEUTROPHILS # (AUTO) 6.2 10^3/uL (1.8-7.8); NEUTROPHILS % (AUTO) 77 % (42-75); PLATELET COUNT 135 10^3/uL (130-400)
[2022-01-05 07:02] LABS: ALBUMIN 3.1 GM/DL (3.2-4.5); POTASSIUM 4.5 MMOL/L (3.6-5.0)
[2022-01-05 07:03] LABS: CALCIUM 8.3 MG/DL (8.5-10.1)
[2022-01-05 07:04] LABS: TOTAL PROTEIN 6.3 GM/DL (6.4-8.2)
[2022-01-05 07:06] LABS: BILIRUBIN,TOTAL 0.4 MG/DL (0.1-1.0)
[2022-01-05 07:08] LABS: CREATININE SERUM 1.41 MG/DL (0.60-1.30)
[2022-01-05] MEDS: SILDENAFIL CITRATE PO SCH ×3 (09:02→23:04)
[2022-01-05] MEDS: FUROSEMIDE 40 MG/4 ML INJ (LASIX) IVP SCH (09:02)
[2022-01-05] MEDS: [UNRECOGNIZED DRUG - REMARK] PO SCH (09:02)
[2022-01-05] MEDS: ASPIRIN E.C. 81 MG (ECOTRIN) TAB PO SCH (09:03)
[2022-01-05] MEDS: busPIRone 5 MG (BUSPAR) TAB PO SCH ×2 (09:03→23:09)
[2022-01-05] MEDS: LOSARTAN 50 MG (COZAAR) TAB PO SCH (09:04)
[2022-01-05] MEDS: PANTOPRAZOLE 40 MG (PROTONIX) TAB PO SCH (09:04)
[2022-01-05] MEDS: KCL 10 MEQ TAB (MICRO K) PO SCH (09:04)
[2022-01-05] MEDS: GABAPENTIN 300 MG (NEURONTIN) CAP PO SCH ×4 (09:04→23:06)
[2022-01-05] MEDS: TRESIBA FLEXTOUCH U-100 SQ SCH ×2 (09:05→23:12)
[2022-01-05] MEDS: DOCUSATE SODIUM 100 MG (COLACE) CAP PO SCH ×2 (09:07→23:09)
[2022-01-05] MEDS: SENNOSIDES 8.6 MG (SENOKOT) TAB PO SCH ×2 (09:07→23:10)
[2022-01-05] MEDS: RT-BUDESONIDE NEBS 0.5 MG/2ML (PULMICORT) AMP IH SCH ×2 (10:31→20:42)
[2022-01-05] MEDS: RT-ALBUTEROL SULF 2.5 MG/3 ML PRE-MIX VIAL INH SCH ×2 (10:31→20:42)
--- NOTE | 2022-01-05 13:29 | Cardiology Progress Note ---
Progress Note-Cardiology Events since last exam Date Seen by Provider: Jan 05, 2022 Time Seen by Provider: 13:26 Events since last exam I am following her due to heart failure. Her peripheral edema has markedly improved but not completely resolved. She feels as though her breathing is now back to about her baseline chronic dyspnea on exertion. She denies chest pain, palpitations, or syncope. Certain portions of this document may have been dictated utilizing voice recognition technology. Inherent to this technology, typographical and grammatical errors may exist. As much as I am diligent to identify and correct these mistakes, some errors may remain in the document. Vitals Last set of Vitals Signs Vital Signs 01/05/22 01/05/22 01/05/22 10:31 12:00 12:42 Temp 36.6 Pulse 80 Resp 15 B/P (MAP) 126/56 (79) Pulse Ox 93 O2 Delivery Nasal Cannula O2 Flow Rate 4.00 FiO2 36 Labs Labs Laboratory Tests 01/05/22 06:19 Exam Vital Signs Vital Signs Date Time Temp Pulse Resp B/P (MAP) Pulse Ox O2 Delivery O2 Flow Rate FiO2 01/05/22 12:42 80 01/05/22 12:00 36.6 15 126/56 (79) 93 Nasal Cannula 4.00 01/05/22 10:31 36 Physical Exam General: Alert. No acute distress. She is morbidly obese. Eye: No xanthelasma. HENT: Normocephalic. Neck: Jugular venous pressure does not appear elevated. Respiratory: Lungs have bibasilar crackles. Respirations are non-labored. Breath sounds are equal. Symmetrical chest wall expansion. Cardiovascular: Normal rate. Regular rhythm. Distant S1/S2. 2/6 systolic ejection murmur. No gallop. 1+ bilateral pretibial edema with compression stockings in place. Gastrointestinal: Soft. Normal bowel sounds. Skin: Warm. Dry. Neurologic: Alert and oriented to person, place, time. Cranial nerves 3-11 grossly intact. Psychiatric: Cooperative. Appropriate mood & affect. Labs Laboratory Tests Test 01/04/22 15:43 01/04/22 20:50 01/05/22 05:30 01/05/22 06:19 Range/Units Glucometer 143 H 212 H 90 70-110 MG/DL White Blood Count 8.0 4.3-11.0 10^3/uL Red Blood Count 2.95 L 3.80-5.11 10^6/uL Hemoglobin 9.6 L 11.5-16.0 g/dL Hematocrit 32 L 35-52 % Mean Corpuscular Volume 107 H 80-99 fL Mean Corpuscular Hemoglobin 33 25-34 pg Mean Corpuscular Hemoglobin Concent 31 L 32-36 g/dL Red Cell Distribution Width 13.1 10.0-14.5 % Platelet Count 135 130-400 10^3/uL Mean Platelet Volume 10.0 9.0-12.2 fL Immature Granulocyte % (Auto) 0 % Neutrophils (%) (Auto) 77 H 42-75 % Lymphocytes (%) (Auto) 11 L 12-44 % Monocytes (%) (Auto) 6 0-12 % Eosinophils (%) (Auto) 5 0-10 % Basophils (%) (Auto) 1 0-10 % Neutrophils # (Auto) 6.2 1.8-7.8 10^3/uL Lymphocytes # (Auto) 0.9 L 1.0-4.0 10^3/uL Monocytes # (Auto) 0.5 0.0-1.0 10^3/uL Eosinophils # (Auto) 0.4 H 0.0-0.3 10^3/uL Basophils # (Auto) 0.1 0.0-0.1 10^3/uL Immature Granulocyte # (Auto) 0.0 0.0-0.1 10^3/uL Sodium Level 140 135-145 MMOL/L Potassium Level 4.5 3.6-5.0 MMOL/L Chloride Level 99 98-107 MMOL/L Carbon Dioxide Level 32 21-32 MMOL/L Anion Gap 9 5-14 MMOL/L Blood Urea Nitrogen 32 H 7-18 MG/DL Creatinine 1.41 H 0.60-1.30 MG/DL Estimat Glomerular Filtration Rate 41 BUN/Creatinine Ratio 23 Glucose Level 116 H 70-105 MG/DL Calcium Level 8.3 L 8.5-10.1 MG/DL Corrected Calcium 9.0 8.5-10.1 MG/DL Total Bilirubin 0.4 0.1-1.0 MG/DL Aspartate Amino Transf (AST/SGOT) 16 5-34 U/L Alanine Aminotransferase (ALT/SGPT) 18 0-55 U/L Alkaline Phosphatase 107 40-136 U/L Total Protein 6.3 L 6.4-8.2 GM/DL Albumin 3.1 L 3.2-4.5 GM/DL Test 01/05/22 08:20 01/05/22 10:48 Range/Units Glucometer 77 129 H 70-110 MG/DL Diagnosis/Problems Diagnosis/Problems (1) Acute on chronic heart failure with preserved ejection fraction (HFpEF) Status: Acute Assessment & Plan: I am not entirely clear why this occurred. She states that she has been very careful with sodium restriction at home. She has been taking all of her medications judiciously. It is possible that if she has bowel edema, the furosemide may not be absorbing well. She does have chronic kidney disease which is likely contributing to the heart failure. She has responded to intravenous diuretic. Her creatinine is now starting to rise. I will change the intravenous furosemide back over to oral 40 mg twice daily which she was taking at home. If she develops recurrent peripheral edema, I would consider changing the furosemide over to bumetanide or torsemide which have better ab sorption if a patient has bowel edema. (2) Pulmonary hypertension Status: Chronic Assessment & Plan: This is most likely multifactorial. She is takes sildenafil for the pulmonary hypertension under the direction of her clinic office manager. (3) Primary hypertension Status: Chronic Assessment & Plan: For the most part she has been normotensive on losartan and metoprolol succinate which she takes at home. (4) Mitral stenosis Status: Chronic Assessment & Plan: She appeared to have mild to moderate mitral stenosis on her most recent echocardiogram outlined above. I would not suspect this to be contributing to the heart failure but will certainly need to be followed longitudinally. (5) Mixed hyperlipidemia Status: Chronic Assessment & Plan: Continue simvastatin. (6) Stage 3a chronic kidney disease Status: Chronic Assessment & Plan: As above, her creatinine improved initially with intravenous diuretics but is now trending upwards. I will change the intravenous diuretic back over to oral as outlined above. She has an appointment to see high school drafting teacher at [place] in the next few weeks. (7) Type 2 diabetes mellitus with complication Status: Chronic Assessment & Plan: This is being managed by the hospital team. (8) Morbid obesity Status: Chronic Assessment & Plan: She needs to work on weight loss. She has been counseled about this numerous times in the past. JEANMARIE GRIFFITH JR, MD Jan 05, 2022 13:29
[2022-01-05] MEDS: [UNRECOGNIZED DRUG - REMARK] PO SCH (23:01)
[2022-01-05] MEDS: MONTELUKAST 10 MG (SINGULAIR) TAB PO SCH (23:07)
[2022-01-05] MEDS: traZODone 50 MG (DESYREL) TAB PO SCH (23:07)
[2022-01-05] MEDS: MELATONIN 10 MG TABLET PO SCH (23:08)
[2022-01-05] MEDS: ACETAMINOPHEN 325 MG TABLET PO PRN (23:12)
[2022-01-05] MEDS: ALPRAZolam 0.5 MG (XANAX) TAB PO PRN (23:13)
[2022-01-06 00:05] VITALS: BP 135/61
[2022-01-06 04:02] VITALS: BP 132/67
[2022-01-06 06:01] LABS: BASOPHILS # (AUTO) 0.1 10^3/uL (0.0-0.1); BASOPHILS % (AUTO) 1 % (0-10); EOSINOPHILS # (AUTO) 0.4 10^3/uL (0.0-0.3); EOSINOPHILS % (AUTO) 5 % (0-10); HEMATOCRIT 32 % (35-52); HEMOGLOBIN 9.6 g/dL (11.5-16.0); LYMPHOCYTES % (AUTO) 11 % (12-44); MEAN CORPUSCULAR HEMOGLOBIN 32 pg (25-34); MEAN CORPUSCULAR HGB CONC 30 g/dL (32-36); MEAN CORPUSCULAR VOLUME 107 fL (80-99); MEAN PLATELET VOLUME 9.7 fL (9.0-12.2); MONOCYTES # (AUTO) 0.5 10^3/uL (0.0-1.0); MONOCYTES % (AUTO) 6 % (0-12); NEUTROPHILS # (AUTO) 6.5 10^3/uL (1.8-7.8); NEUTROPHILS % (AUTO) 77 % (42-75); PLATELET COUNT 140 10^3/uL (130-400); WHITE BLOOD COUNT 8.5 10^3/uL (4.3-11.0)
[2022-01-06 06:10] LABS: ALBUMIN 3.1 GM/DL (3.2-4.5); POTASSIUM 4.5 MMOL/L (3.6-5.0)
[2022-01-06 06:11] LABS: CALCIUM 8.2 MG/DL (8.5-10.1)
[2022-01-06 06:12] LABS: TOTAL PROTEIN 6.6 GM/DL (6.4-8.2)
[2022-01-06 06:14] LABS: BILIRUBIN,TOTAL 0.4 MG/DL (0.1-1.0)
[2022-01-06 06:16] LABS: CREATININE SERUM 1.41 MG/DL (0.60-1.30)
[2022-01-06] MEDS: FUROSEMIDE 40 MG (LASIX) TAB PO SCH ×2 (06:34→12:19)
[2022-01-06] MEDS: inSUlin ASPART (NovoLOG) 1 UNIT/0.01 ML (CHARGE PER UNIT) SC SCH ×2 (06:34→12:20)
[2022-01-06] MEDS: LEVOTHYROXINE 125 MCG (LEVOTHROID) TABLET PO SCH (06:34)
[2022-01-06] MEDS: RT-ALBUTEROL SULF 2.5 MG/3 ML PRE-MIX VIAL INH SCH (07:23)
[2022-01-06] MEDS: RT-BUDESONIDE NEBS 0.5 MG/2ML (PULMICORT) AMP IH SCH (07:23)
[2022-01-06 08:24] VITALS: BP 120/57
[2022-01-06] MEDS: SENNOSIDES 8.6 MG (SENOKOT) TAB PO SCH (08:26)
[2022-01-06] MEDS: DOCUSATE SODIUM 100 MG (COLACE) CAP PO SCH (08:26)
[2022-01-06] MEDS: PANTOPRAZOLE 40 MG (PROTONIX) TAB PO SCH (08:27)
[2022-01-06] MEDS: LOSARTAN 50 MG (COZAAR) TAB PO SCH (08:28)
[2022-01-06] MEDS: KCL 10 MEQ TAB (MICRO K) PO SCH (08:28)
[2022-01-06] MEDS: GABAPENTIN 300 MG (NEURONTIN) CAP PO SCH (08:28)
[2022-01-06] MEDS: [UNRECOGNIZED DRUG - REMARK] PO SCH (08:29)
[2022-01-06] MEDS: SILDENAFIL CITRATE PO SCH (08:29)
[2022-01-06] MEDS: ASPIRIN E.C. 81 MG (ECOTRIN) TAB PO SCH (08:38)
[2022-01-06] MEDS: busPIRone 5 MG (BUSPAR) TAB PO SCH (08:39)
--- NOTE | 2022-01-06 09:04 | Occupational Ther Daily Note ---
OT Current Status-Daily Note Subjective Pt up in recliner, agreeable to OT tx. Pt states slight fatigue due to walking with PT. Mental Status/Objective Patient Orientation: Person, Place, Situation Attachments: Oxygen ADL-Treatment Therapy Code Descriptions/Definitions Functional [place] Measure: 0=Not Assessed/NA 4=Minimal Assistance 1=Total Assistance 5=Supervision or Setup 2=Maximal Assistance 6=Modified [place] 3=Moderate Assistance 7=Complete IndependenceSCALE: Activities may be completed with or without assistive devices. 9-Pqutsoenft-gfefqpk completes the activity by him/herself with no assistance from a helper. 5-Set-up or Clean-up Assistance-helper sets up or cleans up; patient completes activity. [place] assists only prior to or following the activity. 4-Supervision or Touching Assistance-helper provides verbal cues and/or touching/steadying and/or contact guard assistance as patient completes activity. Assistance may be provided throughout the activity or intermittently. 3-Partial/Moderate Assistance-helper does LESS THAN HALF the effort. [place] lifts, holds or supports trunk or limbs, but provides less than half the effort. 2-Substantial/Maximal Assistance-helper does MORE THAN HALF the effort. [place] lifts or holds trunk or limbs and provides more than half the effort. 4-Xlbkbvpur-ruppik does ALL the effort. Patient does none of the effort to complete the activity. Or, the assistance of 2 or more helpers is required for the patient to complete the activity. If activity was not attempted, code reason: 7-Patient Refused. 9-Not Applicable-not attempted and the patient did not perform the activity before the current illness, exacerbation or injury. 10-Not Attempted due to Environmental Limitations-(lack of equipment, weather restraints, etc.). 88-Not Attempted due to Medical Conditions or Safety Concerns. Eating (QC): 6 (IND) Other Treatment Pt up in recliner, agreeable to OT Tx. Pt's nurse present, provided pt with medications, pt able to take oral medications independently. In order to increase BUE strength and activity tolerance, pt completed x10 reps of each of the following BUE exercises: shoulder flexion, elbow flexion/extension, finger flexion/extension, and front punch. Pt took rest breaks as needed between exercises. Post tx, pt in recliner, call light in reach and all needs met. Education OT Patient Education: Correct positioning, Energy conservation, Modified ADL techniques, Progress toward Goal/Update tx plan, Purpose of tx/functional activities, Rehab process Teaching Recipient: Patient Teaching Methods: Discussion Response to Teaching: Verbalize Understanding OT Intermediate Goals Delinquency Counselor Goals Time Frame: Jan 10, 2022 Eating (QC): 6 Oral Hygiene (QC): 6 Toileting Hygiene (QC): 6 Shower/Bathe Self (QC): 4 Upper Body Dressing (QC): 5 Lower Body Dressing (QC): 4 On/Off Footwear (QC): 4 Additional Goals: 1-Demonstrate ADL Tasks, 2-Verbalize Understanding, 3- ImproveStrength/Lola 1=Demonstrate adherence to instructed precautions during ADL tasks. 2=Patient will verbalize/demonstrate understanding of assistive devices/modifications for ADL. 3=Patient will improve strength/tolerance for activity to enable patient to perform ADL's. OT Education/Plan Problem List/Assessment Assessment: Decreased Activ Tolerance, Decreased UE Strength, Impaired I ADL's, Impaired Self-Care Skills Discharge Recommendations Plan/Recommendations: Continue POC Treatment Plan/Plan of Care Patient would benefit from OT for education, treatment and training to promote independence in ADL's, mobility, safety and/or upper extremity function for ADL's. Plan of Care: ADL Retraining, Functional Mobility, UE Funct Exercise/Act Treatment Duration: Jan 10, 2022 Frequency: 3 times per week (3-5 times per week) Estimated Hrs Per Day: .25 hour per day Agreement: Yes Rehab Potential: Fair Time/GCodes Start Time: 08:40 Stop Time: 08:50 Total Time Billed (hr/min): 10 Billed Treatment Time 1, EX SABRINA AMADOR OT Jan 06, 2022 09:04
[2022-01-06] MEDS: TRESIBA FLEXTOUCH U-100 SQ SCH (09:40)
--- NOTE | 2022-01-06 09:58 | Physical Therapy Daily Note ---
PT Daily Note-Current Subjective Patient agrees to PT. She reports she hopes to go home today. Pain Numeric Pain Scale: 5-Moderate Pain Location: Lower Location Body Site: Back Pain Description: Chronic Section J - Health Conditions 1. Rarely or not at all 2. Occasionally 3. Frequently 4. Almost constantly 8. Unable to answer Pain Effect on Sleep: 2 Pain Interference with Therapy: 2 Pain Interference w/Day-to-Day: 2 Mental Status Patient Orientation: Normal For Age Attachments: Oxygen, Bran Catheter Transfers SCALE: Activities may be completed with or without assistive devices. 6-Bjquhwndkp-tcrxsnc completes the activity by him/herself with no assistance from a helper. 5-Set-up or Clean-up Assistance-helper sets up or cleans up; patient completes activity. [place] assists only prior to or following the activity. 4-Supervision or Touching Assistance-helper provides verbal cues and/or touching/steadying and/or contact guard assistance as patient completes activity. Assistance may be provided throughout the activity or intermittently. 3-Partial/Moderate Assistance-helper does LESS THAN HALF the effort. [place] lifts, holds or supports trunk or limbs, but provides less than half the effort. 2-Substantial/Maximal Assistance-helper does MORE THAN HALF the effort. [place] lifts or holds trunk or limbs and provides more than half the effort. 8-Zelgdgfpo-kmklmw does ALL the effort. Patient does none of the effort to complete the activity. Or, the assistance of 2 or more helpers is required for the patient to complete the activity. If activity was not attempted, code reason: 7-Patient Refused. 9-Not Applicable-not attempted and the patient did not perform the activity before the current illness, exacerbation or injury. 10-Not Attempted due to Environmental Limitations-(lack of equipment, weather restraints, etc.). 88-Not Attempted due to Medical Conditions or Safety Concerns. Lying to Sitting/Side of Bed(Q: 6 Sit to Stand (QC): 5 Chair/Jos-ug-Minzy Xfer(QC): 5 Weight Bearing Right Lower Extremity: Right Weight Bearing/Tolerated Left Lower Extremity: Left Weight Bearing/Tolerated Gait Training Distance: 225' Walk 10 feet (QC): 5 Walk 50 ft with 2 Turns(QC): 5 Walk 150 ft (QC): 5 Gait Assistive Device: FWW trunk flexed posture/safe and functional gait sequence Assessment Patient up in recliner with needs met. PT to increase activity as tolerated by patient. PT [employer] Worker Goals [facility] Goals PT [facility] Goals Time Frame: Jan 11, 2022 Roll Left & Right (QC): 6 Sit to Lying (QC): 6 Lying-Sitting on Side/Bed(QC): 6 Sit to Stand (QC): 6 Chair/Hoi-wp-Gofpl Xfer(QC): 6 Toilet Transfer (QC): 6 Walk 10 feet (QC): 6 Walk 50ft with 2 Turns (QC): 6 Walk 150 ft (QC): 6 PT Plan Treatment/Plan Treatment Plan: Continue Plan of Care Treatment Plan: Education, Functional Activity Lola, Functional Strength, Gait, Safety, Therapeutic Exercise, Transfers Treatment Duration: Jan 11, 2022 Frequency: 6 times per week Estimated Hrs Per Day: .25 hour per day Patient and/or Family Agrees t: Yes Time Time In: 826 Time Out: 838 Total Billed Treatment Time: 12 Total Billed Treatment 1 visit FA 12 min ARON GAMBLE PT Jan 06, 2022 09:58
[2022-01-06] MEDS ORDERED: FURO40TA4 PO (10:02)
--- NOTE | 2022-01-06 10:03 | Discharge Summary ---
Diagnosis/Chief Complaint Date of Admission Jan 03, 2022 at 12:25 Date of Discharge Discharge Date: Jan 06, 2022 Discharge Diagnosis Assessment: Acute on chronic congestive heart failure Severe pulmonary hypertension Volume overload Severe anxiety Diabetes Chronic kidney disease Plan: IV Lasix Bran catheter Supportive care Reason Hospital Visit Chief complaint: Acute volume overload HPI: This is a 66-year-old female clinic patient of [facility] who has a past medical history of congestive heart failure and COPD with chronic kidney disease and pulmonary hypertension managed by multiple specialties in [place] who presented to my clinic with volume overload. Patient was placed on Lasix IV but when we tried to access her port and had malfunction and she will take that addressed in surgery today. Discharge Summary Discharge Physical Examination Allergies: Coded Allergies: Penicillins (Verified Allergy, Unknown, VOMITING, 12/09/21) meperidine (Verified Allergy, Unknown, VOMITING, 12/09/21) morphine (Unverified Allergy, Unknown, RASH, BREATHING DIFFICULTY, 12/09/21) propoxyphene (Verified Allergy, Unknown, 12/09/21) topiramate (Verified Allergy, Unknown, LOSS OF EYESIGHT, 12/09/21) codeine (Verified Adverse Reaction, Unknown, UPSET STOMACH, 12/09/21) dapagliflozin (Verified Adverse Reaction, Unknown, yeast infection, 12/09/21) Vitals & I&Os Vital Signs Date Time Temp Pulse Resp B/P (MAP) Pulse Ox O2 Delivery O2 Flow Rate FiO2 01/06/22 13:43 36.4 85 18 129/59 96 Room Air 4.00 01/05/22 10:31 36 General Appearance: Alert, Oriented X3, Cooperative Respiratory: Clear to Auscultation Cardiovascular: Regular Rate Psych/Mental Status: Mental Status NL Hospital Course Was the Problem List Reviewed?: Yes Pt had an uneventful 4 day hospital course after she was admitted for observation for CHF, no volume overload. She was transitioned to in-patient due to aggressive diuresis, required port malfunction and that was remedied in the surgery room by Dr. Pulido. The port had flipped around. Creatinine remains stable with chronic kidney disease of 1.4 from diabetic nephropathy. She was deemed stable for discharge on improved condition on her home oxygen. She will see me in close follow up. Labs (last 24 hrs) Laboratory Tests 01/02/22 17:25: White Blood Count 9.7, Red Blood Count 3.16L, Hemoglobin 10.1L, Hematocrit 34L, Mean Corpuscular Volume 106H, Mean Corpuscular Hemoglobin 32, Mean Corpuscular Hemoglobin Concent 30L, Red Cell Distribution Width 13.1, Platelet Count 152, Mean Platelet Volume 9.9, Immature Granulocyte % (Auto) 0, Neutrophils (%) (Auto) 84H, Lymphocytes (%) (Auto) 9L, Monocytes (%) (Auto) 4, Eosinophils (%) (Auto) 2, Basophils (%) (Auto) 1, Neutrophils # (Auto) 8.1H, Lymphocytes # (Auto) 0.9L, Monocytes # (Auto) 0.4, Eosinophils # (Auto) 0.2, Basophils # (Auto) 0.1, Immature Granulocyte # (Auto) 0.0, Sodium Level 139, Potassium Level 4.6, Chloride Level 100, Carbon Dioxide Level 30, Anion Gap 9, Blood Urea Nitrogen 32H, Creatinine 1.46H, Estimat Glomerular Filtration Rate 39, BUN/Creatinine Ratio 22, Glucose Level 161H, Calcium Level 8.4L, Corrected Calcium 8.9, Total Bilirubin 0.4, Aspartate Amino Transf (AST/SGOT) 35H, Alanine Aminotransferase (ALT/SGPT) 30, Alkaline Phosphatase 112, B-Type Natriuretic Peptide 1271.3H, Total Protein 6.8, Albumin 3.4 01/02/22 20:20: Glucometer 139H 01/03/22 05:05: White Blood Count 9.0, Red Blood Count 2.98L, Hemoglobin 9.7L, Hematocrit 31L, Mean Corpuscular Volume 105H, Mean Corpuscular Hemoglobin 33, Mean Corpuscular Hemoglobin Concent 31L, Red Cell Distribution Width 13.2, Platelet Count 135, Mean Platelet Volume 9.5, Immature Granulocyte % (Auto) 0, Neutrophils (%) (Auto) 77H, Lymphocytes (%) (Auto) 12, Monocytes (%) (Auto) 6, Eosinophils (%) (Auto) 4, Basophils (%) (Auto) 1, Neutrophils # (Auto) 6.9, Lymphocytes # (Auto) 1.1, Monocytes # (Auto) 0.5, Eosinophils # (Auto) 0.4H, Basophils # (Auto) 0.1, Immature Granulocyte # (Auto) 0.0, Sodium Level 143, Potassium Level 4.1, Chlo ride Level 101, Carbon Dioxide Level 32, Anion Gap 10, Blood Urea Nitrogen 33H, Creatinine 1.40H, Estimat Glomerular Filtration Rate 41, BUN/Creatinine Ratio 24, Glucose Level 104, Calcium Level 8.4L, Corrected Calcium 9.0, Total Bilirubin 0.3, Aspartate Amino Transf (AST/SGOT) 24, Alanine Aminotransferase (ALT/SGPT) 26, Alkaline Phosphatase 102, Total Protein 6.4, Albumin 3.2 01/03/22 05:08: Glucometer 116H 01/03/22 11:02: Glucometer 202H 01/03/22 16:33: Glucometer 81 01/03/22 20:04: Glucometer 134H 01/04/22 05:40: White Blood Count 9.2, Red Blood Count 3.03L, Hemoglobin 9.9L, Hematocrit 33L, Mean Corpuscular Volume 107H, Mean Corpuscular Hemoglobin 33, Mean Corpuscular Hemoglobin Concent 31L, Red Cell Distribution Width 13.3, Platelet Count 141, Mean Platelet Volume 9.5, Immature Granulocyte % (Auto) 0, Neutrophils (%) (Auto) 79H, Lymphocytes (%) (Auto) 11L, Monocytes (%) (Auto) 5, Eosinophils (%) (Auto) 4, Basophils (%) (Auto) 1, Neutrophils # (Auto) 7.2, Lymphocytes # (Auto) 1.1, Monocytes # (Auto) 0.5, Eosinophils # (Auto) 0.4H, Basophils # (Auto) 0.1, Immature Granulocyte # (Auto) 0.0, Sodium Level 140, Potassium Level 4.2, Chloride Level 101, Carbon Dioxide Level 31, Anion Gap 8, Blood Urea Nitrogen 31H, Creatinine 1.33H, Estimat Glomerular Filtration Rate 44, BUN/Creatinine Ratio 23, Glucose Level 120H, Calcium Level 8.3L, Corrected Calcium 8.9, Total Bilirubin 0.4, Aspartate Amino Transf (AST/SGOT) 19, Alanine Aminotransferase (ALT/SGPT) 21, Alkaline Phosphatase 103, Total Protein 6.6, Albumin 3.3 01/04/22 05:41: Glucometer 117H 01/04/22 10:11: Glucometer 155H 01/04/22 15:43: Glucometer 143H 01/04/22 20:50: Glucometer 212H 01/05/22 05:30: Glucometer 90 01/05/22 06:19: White Blood Count 8.0, Red Blood Count 2.95L, Hemoglobin 9.6L, Hematocrit 32L, Mean Corpuscular Volume 107H, Mean Corpuscular Hemoglobin 33, Mean Corpuscular Hemoglobin Concent 31L, Red Cell Distribution Width 13.1, Platelet Count 135, Mean Platelet Volume 10.0, Immature Granulocyte % (Auto) 0, Neutrophils (%) (Auto) 77H, Lymphocytes (%) (Auto) 11L, Monocytes (%) (Auto) 6, Eosinophils (%) (Auto) 5, Basophils (%) (Auto) 1, Neutrophils # (Auto) 6.2, Lymphocytes # (Auto) 0.9L, Monocytes # (Auto) 0.5, Eosinophils # (Auto) 0.4H, Basophils # (Auto) 0.1, Immature Granulocyte # (Auto) 0.0, Sodium Level 140, Potassium Level 4.5, Chloride Level 99, Carbon Dioxide Level 32, Anion Gap 9, Blood Urea Nitrogen 32H , Creatinine 1.41H, Estimat Glomerular Filtration Rate 41, BUN/Creatinine Ratio 23, Glucose Level 116H, Calcium Level 8.3L, Corrected Calcium 9.0, Total Bilirubin 0.4, Aspartate Amino Transf (AST/SGOT) 16, Alanine Aminotransferase (ALT/SGPT) 18, Alkaline Phosphatase 107, Total Protein 6.3L, Albumin 3.1L 01/05/22 08:20: Glucometer 77 01/05/22 10:48: Glucometer 129H 01/05/22 15:31: Glucometer 125H 01/05/22 20:41: Glucometer 149H 01/06/22 05:17: Glucometer 104 01/06/22 05:45: White Blood Count 8.5, Red Blood Count 2.97L, Hemoglobin 9.6L, Hematocrit 32L, Mean Corpuscular Volume 107H, Mean Corpuscular Hemoglobin 32, Mean Corpuscular Hemoglobin Concent 30L, Red Cell Distribution Width 13.2, Platelet Count 140, Mean Platelet Volume 9.7, Immature Granulocyte % (Auto) 0, Neutrophils (%) (Auto) 77H, Lymphocytes (%) (Auto) 11L, Monocytes (%) (Auto) 6, Eosinophils (%) (Auto) 5, Basophils (%) (Auto) 1, Neutrophils # (Auto) 6.5, Lymphocytes # (Auto) 1.0, Monocytes # (Auto) 0.5, Eosinophils # (Auto) 0.4H, Basophils # (Auto) 0.1, Immature Granulocyte # (Auto) 0.0, Sodium Level 140, Potassium Level 4.5, Chloride Level 98, Carbon Dioxide Level 35H, Anion Gap 7, Blood Urea Nitrogen 34H, Creatinine 1.41H, Estimat Glomerular Filtration Rate 41, BUN/Creatinine Ratio 24, Glucose Level 107H, Calcium Level 8.2L, Corrected Calcium 8.9, Total Bilirubin 0.4, Aspartate Amino Transf (AST/SGOT) 18, Alanine Aminotransferase (A LT/SGPT) 18, Alkaline Phosphatase 107, Total Protein 6.6, Albumin 3.1L 01/06/22 11:17: Glucometer 232H Pending Labs Laboratory Tests 01/02/22 17:25: White Blood Count 9.7, Red Blood Count 3.16, Hemoglobin 10.1, Hematocrit 34, Mean Corpuscular Volume 106, Mean Corpuscular Hemoglobin 32, Mean Corpuscular Hemoglobin Concent 30, Red Cell Distribution Width 13.1, Platelet Count 152, Mean Platelet Volume 9.9, Immature Granulocyte % (Auto) 0, Neutrophils (%) (Auto) 84, Lymphocytes (%) (Auto) 9, Monocytes (%) (Auto) 4, Eosinophils (%) (Auto) 2, Basophils (%) (Auto) 1, Neutrophils # (Auto) 8.1, Lymphocytes # (Auto) 0.9, Monocytes # (Auto) 0.4, Eosinophils # (Auto) 0.2, Basophils # (Auto) 0.1, Immature Granulocyte # (Auto) 0.0, Sodium Level 139, Potassium Level 4.6, Chloride Level 100, Carbon Dioxide Level 30, Anion Gap 9, Blood Urea Nitrogen 32, Creatinine 1.46, Estimat Glomerular Filtration Rate 39, BUN/Creatinine Ratio 22, Glucose Level 161, Calcium Level 8.4, Corrected Calcium 8.9, Total Bilirubin 0.4, Aspartate Amino Transf (AST/SGOT) 35, Alanine Aminotransferase (ALT/SGPT) 3 0, Alkaline Phosphatase 112, B-Type Natriuretic Peptide 1271.3, Total Protein 6.8, Albumin 3.4 01/02/22 20:20: Glucometer 139 01/03/22 05:05: White Blood Count 9.0, Red Blood Count 2.98, Hemoglobin 9.7, Hematocrit 31, Mean Corpuscular Volume 105, Mean Corpuscular Hemoglobin 33, Mean Corpuscular Hemoglobin Concent 31, Red Cell Distribution Width 13.2, Platelet Count 135, Mean Platelet Volume 9.5, Immature Granulocyte % (Auto) 0, Neutrophils (%) (Auto) 77, Lymphocytes (%) (Auto) 12, Monocytes (%) (Auto) 6, Eosinophils (%) (Auto) 4, Basophils (%) (Auto) 1, Neutrophils # (Auto) 6.9, Lymphocytes # (Auto) 1.1, Monocytes # (Auto) 0.5, Eosinophils # (Auto) 0.4, Basophils # (Auto) 0.1, Immature Granulocyte # (Auto) 0.0, Sodium Level 143, Potassium Level 4.1, Chloride Level 101, Carbon Dioxide Level 32, Anion Gap 10, Blood Urea Nitrogen 33, Creatinine 1.40, Estimat Glomerular Filtration Rate 41, BUN/Creatinine Ratio 24, Glucose Level 104, Calcium Level 8.4, Corrected Calcium 9.0, Total Bilirubin 0.3, Aspartate Amino Transf (AST/SGOT) 24, Alanine Aminotransferase (ALT/SGPT) 26, Alkaline Phosphatase 102, Total Protein 6.4, Albumin 3.2 01/03/22 05:08: Glucometer 116 01/03/22 11:02: Glucometer 202 01/03/22 16:33: Glucometer 81 01/03/22 20:04: Glucometer 134 01/04/22 05:40: White Blood Count 9.2, Red Blood Count 3.03, Hemoglobin 9.9, Hematocrit 33, Mean Corpuscular Volume 107, Mean Corpuscular Hemoglobin 33, Mean Corpuscular Hemoglobin Concent 31, Red Cell Distribution Width 13.3, Platelet Count 141, Mean Platelet Volume 9.5, Immature Granulocyte % (Auto) 0, Neutrophils (%) (Auto) 79, Lymphocytes (%) (Auto) 11, Monocytes (%) (Auto) 5, Eosinophils (%) (Auto) 4, Basophils (%) (Auto) 1, Neutrophils # (Auto) 7.2, Lymphocytes # (Auto) 1.1, Monocytes # (Auto) 0.5, Eosinophils # (Auto) 0.4, Basophils # (Auto) 0.1, Immature Granulocyte # (Auto) 0.0, Sodium Level 140, Potassium Level 4.2, C hloride Level 101, Carbon Dioxide Level 31, Anion Gap 8, Blood Urea Nitrogen 31, Creatinine 1.33, Estimat Glomerular Filtration Rate 44, BUN/Creatinine Ratio 23, Glucose Level 120, Calcium Level 8.3, Corrected Calcium 8.9, Total Bilirubin 0.4, Aspartate Amino Transf (AST/SGOT) 19, Alanine Aminotransferase (ALT/SGPT) 21, Alkaline Phosphatase 103, Total Protein 6.6, Albumin 3.3 01/04/22 05:41: Glucometer 117 01/04/22 10:11: Glucometer 155 01/04/22 15:43: Glucometer 143 01/04/22 20:50: Glucometer 212 01/05/22 05:30: Glucometer 90 01/05/22 06:19: White Blood Count 8.0, Red Blood Count 2.95, Hemoglobin 9.6, Hematocrit 32, Mean Corpuscular Volume 107, Mean Corpuscular Hemoglobin 33, Mean Corpuscular Hemoglobin Concent 31, Red Cell Distribution Width 13.1, Platelet Count 135, Mean Platelet Volume 10.0, Immature Granulocyte % (Auto) 0, Neutrophils (%) (Auto) 77, Lymphocytes (%) (Auto) 11, Monocytes (%) (Auto) 6, Eosinophils (%) (Auto) 5, Basophils (%) (Auto) 1, Neutrophils # (Auto) 6.2, Lymphocytes # (Auto) 0.9, Monocytes # (Auto) 0.5, Eosinophils # (Auto) 0.4, Basophils # (Auto) 0.1, Immature Granulocyte # (Auto) 0.0, Sodium Level 140, Potassium Level 4.5, Chloride Level 99, Carbon Dioxide Level 32, Anion Gap 9, Blood Urea Nitrogen 32, Creatinine 1.41, Estimat Glomerular Filtration Rate 41, BUN/Creatinine Ratio 23, Glucose Level 116, Calcium Level 8.3, Corrected Calcium 9.0, Total Bilirubin 0. 4, Aspartate Amino Transf (AST/SGOT) 16, Alanine Aminotransferase (ALT/SGPT) 18, Alkaline Phosphatase 107, Total Protein 6.3, Albumin 3.1 01/05/22 08:20: Glucometer 77 01/05/22 10:48: Glucometer 129 01/05/22 15:31: Glucometer 125 01/05/22 20:41: Glucometer 149 01/06/22 05:17: Glucometer 104 01/06/22 05:45: White Blood Count 8.5, Red Blood Count 2.97, Hemoglobin 9.6, Hematocrit 32, Mean Corpuscular Volume 107, Mean Corpuscular Hemoglobin 32, Mean Corpuscular Hemoglobin Concent 30, Red Cell Distribution Width 13.2, Platelet Count 140, Mean Platelet Volume 9.7, Immature Granulocyte % (Auto) 0, Neutrophils (%) (Auto) 77, Lymphocytes (%) (Auto) 11, Monocytes (%) (Auto) 6, Eosinophils (%) (Auto) 5, Basophils (%) (Auto) 1, Neutrophils # (Auto) 6.5, Lymphocytes # (Auto) 1.0, Monocytes # (Auto) 0.5, Eosinophils # (Auto) 0.4, Basophils # (Auto) 0.1, Immature Granulocyte # (Auto) 0.0, Sodium Level 140, Potassium Level 4.5, Chloride Level 98, Carbon Dioxide Level 35, Anion Gap 7, Blood Urea Nitrogen 34, Creatinine 1.41, Estimat Glomerular Filtration Rate 41, BUN/Creatinine Ratio 24, Glucose Level 107, Calcium Level 8.2, Corrected Calcium 8.9, Total Bilirubin 0.4, Aspartate Amino Transf (AST/SGOT) 18, Alanine Aminotransferase (ALT/SGPT) 18, Alkaline Phosphatase 107, Total Protein 6.6, Albumin 3.1 01/06/22 11:17: Glucometer 232 Discharge Home Medications: Active Scripts Active Furosemide 40 Mg Tablet 40 Mg PO DAILY@0700,1200 Reported Alprazolam 0.5 Mg Tablet 0.5 Mg PO BID PRN Ventolin Hfa (Albuterol Sulfate) 90 Mcg Hfa.aer.ad 2 Puff INH Q6H PRN Trazodone HCl 50 Mg Tablet 150 Mg PO HS TAKES 3 (50MG) TABS Melatonin 3 Mg Tablet 3 Mg PO HS Buspirone HCl 5 Mg Tablet 5 Mg PO BID Promethazine Tablet (Promethazine HCl) 25 Mg Tablet 25 Mg PO Q6H PRN Yupelri (Revefenacin) 175 Mcg/3 Ml Vial.neb 175 Mcg IH 1200 Perforomist (Formoterol Fumarate) 20 Mcg/2 Ml Vial.neb 20 Mcg IH BID Budesonide 0.5 Mg/2 Ml Ampul.neb 0.5 Mg IH BID Vitamin D3 (Cholecalciferol (Vitamin D3)) 125 Mcg (5000 Unit) Tablet 125 Mcg PO DAILY Vitamin C (Ascorbate Calcium) 500 Mg Tablet 500 Mg PO DAILY Zinc (Zinc Amino Acid Chelate) 50 Mg Tablet 50 Mg PO DAILY Neurontin (Gabapentin) 300 Mg Capsule 300 Mg PO QID Venlafaxine HCl ER (Venlafaxine HCl) 150 Mg Cap.er.24h 150 Mg PO DAILY Sildenafil (Sildenafil Citrate) 20 Mg Tablet 20 Mg PO TID Insulin Aspart Flexpen (Insulin Aspart) 100 Unit/Ml (3 Ml) Insuln.pen 6 Unit SQ DAILY Simvastatin 10 Mg Tablet 10 Mg PO HS Montelukast Sodium 10 Mg Tablet 10 Mg PO HS Potassium Chloride 10 Meq Tab.er.prt 10 Meq PO DAILY Pantoprazole Sodium 40 Mg Tablet.dr 40 Mg PO DAILY Levothyroxine Sodium 125 Mcg Tablet 125 Mcg PO DAILY Tylenol Extra Strength (Acetaminophen) 500 Mg Tablet 1,000 Mg PO BID PRN Aspirin EC (Aspirin) 81 Mg Tablet.dr 81 Mg PO DAILY Metoprolol Succinate 25 Mg Tab.er.24h 25 Mg PO DAILY Losartan Potassium 50 Mg Tablet 50 Mg PO DAILY Tresiba Flextouch U-200 (Insulin Degludec) 200 Unit/Ml (3 Ml) Insuln.pen 30 Units SC BID Instructions to patient/family Please see electronic discharge instructions given to patient. FERN BAILEY DO Jan 06, 2022 10:03
[2022-01-06 12:35] VITALS: BP 129/59
[2022-01-06 13:43] VITALS: BP 129/59
== END 2022-01-06 14:00 | disposition home or self-care (01) | DRG 291 ==
LOC: 4TH 16:37 → OBSVTOIN 01-03 12:25
PROVIDERS: ADMIT Internal Medicine; ATTEND Internal Medicine
PROC: 0JWT0WZ Revision of Totally Implantable Vascular Access Device in Trunk Subcutaneous Tissue and Fascia, Open Approach (ICD-10-PCS; principal; 2022-01-03 15:20)
DX: I13.0 Hypertensive heart and chronic kidney disease with heart failure and stage 1 through stage 4 chronic kidney disease, or unspecified chronic kidney disease (principal); I50.33 Acute on chronic diastolic (congestive) heart failure; J96.11 Chronic respiratory failure with hypoxia; T85.618A Breakdown (mechanical) of other specified internal prosthetic devices, implants and grafts, initial encounter; Z68.42 Body mass index [BMI] 45.0-49.9, adult; J44.9 Chronic obstructive pulmonary disease, unspecified; I25.10 Atherosclerotic heart disease of native coronary artery without angina pectoris; I27.20 Pulmonary hypertension, unspecified; Z79.82 Long term (current) use of aspirin; Z79.4 Long term (current) use of insulin; Z79.899 Other long term (current) drug therapy; E11.40 Type 2 diabetes mellitus with diabetic neuropathy, unspecified; K21.9 Gastro-esophageal reflux disease without esophagitis; M19.90 Unspecified osteoarthritis, unspecified site; E03.9 Hypothyroidism, unspecified; F41.9 Anxiety disorder, unspecified; F32.A Depression, unspecified; E66.01 Morbid (severe) obesity due to excess calories; E11.22 Type 2 diabetes mellitus with diabetic chronic kidney disease; Z95.5 Presence of coronary angioplasty implant and graft; E78.2 Mixed hyperlipidemia; N18.31 Chronic kidney disease, stage 3a; I05.0 Rheumatic mitral stenosis
CPT/HCPCS: 36415; 71045; 80053; 82947; 83880; 85025; 94010; 94640; 94760; G0378

== ENCOUNTER 2022-01-13 12:02 | Inpatient (IN) | payer MEDICARE, OTHER ==
[~2022-01-13] VITALS: Ht 162.6 cm; Wt 121.6 kg
--- NOTE | 2022-01-13 12:21 | ED General ---
General Chief Complaint: General Problems/Pain Stated Complaint: SOB|FLUID IN LUNGS Nursing Triage Note: PT ASSISTED TO ROOM 7 WITH C/O FLUID RETENTION AND SOB. PT REPORTS SHE HAS BEEN FILLING UP WITH FLUID SOON SHE WAS DC FROM THE HOSPITAL A WEEK AGO. PT WAS INSTRUCTED BY PCP TO COME TO ED. Source of Information: Patient Exam Limitations: No Limitations (LARRY FORREST APRN) History of Present Illness Date Seen by Provider: Jan 13, 2022 Time Seen by Provider: 12:15 Initial Comments Patient is a 66-year-old female who presents to the emergency department with increasing exertional dyspnea and bilateral lower extremity edema. Patient was recently admitted to this hospital for congestive heart failure exacerbation and was discharged on 06 January. Patient states she has slowly had worsening of he r symptoms since that time. She states she has been compliant with all of her medications. She denies any chest pain. (LARRY FORREST APRN) Allergies and Home Medications Allergies Coded Allergies: Penicillins (Verified Allergy, Unknown, VOMITING, 12/09/21) meperidine (Verified Allergy, Unknown, VOMITING, 12/09/21) morphine (Unverified Allergy, Unknown, RASH, BREATHING DIFFICULTY, 12/09/21) propoxyphene (Verified Allergy, Unknown, 12/09/21) topiramate (Verified Allergy, Unknown, LOSS OF EYESIGHT, 12/09/21) codeine (Verified Adverse Reaction, Unknown, UPSET STOMACH, 12/09/21) dapagliflozin (Verified Adverse Reaction, Unknown, yeast infection, 12/09/21) Patient Home Medication List Home Medication List Reviewed: Yes (LARRY FORREST APRN) Acetaminophen (Tylenol Extra Strength) 500 Mg Tablet, 1,000 MG PO BID PRN for PAIN-MILD, (Reported) Entered as Reported by: MOODY FRANCO on 11/02/17 1632 Last Action: Reviewed Albuterol Sulfate (Ventolin Hfa) 90 Mcg Hfa.aer.ad, 2 PUFF INH Q6H PRN for SHORTNESS OF BREATH, (Reported) Entered as Reported by: TROY HAQUE on 01/03/221126 Last Action: Reviewed Alprazolam (Alprazolam) 0.5 Mg Tablet, 0.5 MG PO BID PRN for ANXIETY, (Reported) Entered as Reported by: TROY HAQUE on 10/28/22 1127 Last Action: Reviewed Ascorbate Calcium (Vitamin C) 500 Mg Tablet, 500 MG PO DAILY, (Reported) Entered as Reported by: TEJA PORTILLO on 08/12/21 1323 Last Action: Reviewed Aspirin (Aspirin EC) 81 Mg Tablet.dr, 81 MG PO DAILY, (Reported) Entered as Reported by: MOODY FRANCO on 11/02/17 1632 Last Action: Reviewed Budesonide (Budesonide) 0.5 Mg/2 Ml Ampul.neb, 0.5 MG IH BID, (Reported) Entered as Reported by: TEJA PORTILLO on 08/12/21 1503 Last Action: Reviewed Buspirone HCl (Buspirone HCl) 5 Mg Tablet, 5 MG PO BID, (Reported) Entered as Reported by: TROY HAQUE on 01/03/22 1127 Last Action: Reviewed Cholecalciferol (Vitamin D3) (Vitamin D3) 125 Mcg (5000 Unit) Tablet, 125 MCG PO DAILY, (Reported) Entered as Reported by: TEJA PORTILLO on 08/12/21 1324 Last Action: Reviewed Formoterol Fumarate (Perforomist) 20 Mcg/2 Ml Vial.neb, 20 MCG IH BID, (Reported) Entered as Reported by: TEJA PORTILLO on 08/12/21 1503 Last Action: Reviewed Furosemide (Furosemide) 40 Mg Tablet, 40 MG PO DAILY@0700,1200 Prescribed by: FERN BAILEY on 01/06/22 1002 Last Action: Reviewed Gabapentin (Neurontin) 300 Mg Capsule, 300 MG PO QID, (Reported) Entered as Reported by: TEJA PORTILLO on 08/12/21 1320 Last Action: Reviewed Insulin Aspart (Insulin Aspart Flexpen) 100 Unit/Ml (3 Ml) Insuln.pen, 6 UNIT SQ DAILY, (Reported) Entered as Reported by: Linh Cat on 08/11/21 1009 Last Action: Reviewed Insulin Degludec (Tresiba Flextouch U-200) 200 Unit/Ml (3 Ml) Insuln.pen, 30 UNITS SC BID, (Reported) Entered as Reported by: MOODY FRANCO on 11/02/17 1632 Last Action: Reviewed Levothyroxine Sodium (Levothyroxine Sodium) 125 Mcg Tablet, 125 MCG PO DAILY, (Reported) Entered as Reported by: ALHAJI HORTA on 09/13/19832 Last Action: Reviewed Losartan Potassium (Losartan Potassium) 50 Mg Tablet, 50 MG PO DAILY, (Reported) Entered as Reported by: MOODY FRANCO on 11/02/17 1632 Last Action: Reviewed Melatonin (Melatonin) 3 Mg Tablet, 3 MG PO HS, (Reported) Entered as Reported by: TROY HAQUE on 01/03/22 112 Last Action: Reviewed Metoprolol Succinate (Metoprolol Succinate) 25 Mg Tab.er.24h, 25 MG PO DAILY, (Reported) Entered as Reported by: MOODY FRANCO on 11/02/17 163 Last Action: Reviewed Montelukast Sodium (Montelukast Sodium) 10 Mg Tablet, 10 MG PO HS, (Reported) Entered as Reported by: TROY HAQUE on 06/20/20 140 Last Action: Reviewed Pantoprazole Sodium (Pantoprazole Sodium) 40 Mg Tablet.dr, 40 MG PO DAILY, (Reported) Entered as Reported by: ALHAJI HORTA on 09/13/19832 Last Action: Reviewed Potassium Chloride (Potassium Chloride) 10 Meq Tab.er.prt, 10 MEQ PO DAILY, (Reported) Entered as Reported by: TROY HAQUE on 06/20/20 140 Last Action: Reviewed Promethazine HCl (Promethazine Tablet) 25 Mg Tablet, 25 MG PO Q6H PRN for NAUSEA/VOMITING-2ND LINE, (Reported) Entered as Reported by: TROY HAQUE on 12/03/21 1230 Last Action: Reviewed Revefenacin (Yupelri) 175 Mcg/3 Ml Vial.neb, 175 MCG IH 1200, (Reported) Entered as Reported by: TEJA PORTILLO on 08/12/21 1504 Last Action: Reviewed Sildenafil Citrate (Sildenafil) 20 Mg Tablet, 20 MG PO TID, (Reported) Entered as Reported by: Linh Cat on 08/11/21 1009 Last Action: Reviewed Simvastatin (Simvastatin) 10 Mg Tablet, 10 MG PO HS, (Reported) Entered as Reported by: Linh Cat on 08/11/21 1009 Last Action: Reviewed Trazodone HCl (Trazodone HCl) 50 Mg Tablet, 150 MG PO HS, (Reported) Entered as Reported by: TROY HAQUE on 01/03/22 1127 Last Action: Reviewed Venlafaxine HCl (Venlafaxine HCl ER) 150 Mg Cap.er.24h, 150 MG PO DAILY, (R eported) Entered as Reported by: TEJA PORTILLO on 08/12/21 1217 Last Action: Reviewed Zinc Amino Acid Chelate (Zinc) 50 Mg Tablet, 50 MG PO DAILY, (Reported) Entered as Reported by: TEJA PORTILLO on 08/12/21 1323 Last Action: Reviewed Discontinued Medications Furosemide (Furosemide) 40 Mg Tablet, 40 MG PO DAILY, (Reported) Entered as Reported by: TROY HAQUE on 01/03/22 112 Furosemide (Furosemide) 40 Mg Tablet, 40 MG PO 1400 PRN for EXCESS FLUID, (Reported) Entered as Reported by: TROY HAQUE on 01/03/221126 Review of Systems Review of Systems Constitutional: see HPI EENTM: no symptoms reported Respiratory: see HPI Cardiovascular: see HPI Gastrointestinal: no symptoms reported (LARRY FORREST APRN) Past Gblvbch-Azawlk-Etavsm Hx Patient Social History Tobacco Use?: No Use of E-Cig and/or Vaping dev: No Substance use?: No Alcohol Use?: No Pt feels they are or have been: No (LARRY FORREST APRN) Immunizations Up To Date Tetanus Booster (TDap): Unknown Influenza Vaccine Up-to-Date: Yes; Up-to-Date First/Initial COVID19 Vaccinat: 2020 Second COVID19 Vaccination Trey: 2020 Third COVID19 Vaccination Date: 2020 (LARRY FORREST [employer]INE [employer]) Seasonal Allergies Seasonal Allergies: No (LARRY FORREST APRN) Past Medical History Surgery/Hospitalization HX: CHF, CKD, COPD, DM 2, HTN Surgeries: Yes (FOOT, bilat CTR, carotid endartectomy, bilat TKR) Appendectomy, Gallbladder, Orthopedic, Thyroidectomy Respiratory: Yes (CPAP - 4L NC O2, DAYTIME O2 4L) Pneumonia, Sleep Apnea Currently Using CPAP: No Currently Using BIPAP: No Cardiac: Yes (STENT; CAROTID ENDARTERECTOMY, CHF, MITRAL STENOSIS,PULMONARY HTN) Cardiomyopathy, Chronic Edema/Swelling, Coronary Artery Disease, High Cholesterol, Hypertension Neurological: Yes Neuropathy 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 Disorders: No Female 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 Disorders: Denies SIPHONER History: Menopausal Sexually Transmitted Disease: No HIV/AIDS: No Genitourinary: Yes UTI-Chronic Gastrointestinal: Yes Colitis, Gastroesophageal Reflux, Chronic Constipation, Hemorrhoids, Gall Bladder Disease Musculoskeletal: Yes (ARTHRITIS, spinal stenosis) Degenerate Disk Disease, Arthritis Endocrine: Yes Diabetes, Insulin dep, Hypothyroidsim HEENT: Yes (nosebleeds) Loss of Vision: Denies Hearing Impairment: Denies Cancer: No Psychosocial: Yes Anxiety, Depression Integumentary: Yes (RASH) Blood Disorders: Yes (ANEMIA) Adverse Reaction/Blood Tranf: No (LARRY FORREST APRN) Family Medical History Alzheimer's disease G8 SISTER Diabetes mellitus 19 FATHER Hypertension 19 FATHER 19 MOTHER Myocardial infarction 19 FATHER 19 MOTHER Neoplasm G8 SISTER No Pertinent Family Hx Noncontributory (LARRY FORREST APRN) Physical Exam Vital Signs Vital Signs - First Documented (DAVIN DODSON MD) Vital Signs Capillary Refill : (LARRY FORREST APRN) Height, Weight, BMI Height: 5'4.00" Weight: 246lbs. 6.0oz. [id number]; 47.00 BMI Method:Stated General Appearance: No Apparent Distress, WD/WN HEENT: PERRL/EOMI, TMs Normal, Normal ENT Inspection, Pharynx Normal Neck: Full Range of Motion, Normal Inspection, Non Tender, Supple Respiratory: Chest Non Tender, Decreased Breath Sounds Cardiovascular: Regular Rate, Rhythm Gastrointestinal: Normal Bowel Sounds, Non Tender, Soft Extremity: Pedal Edema Neurologic/Psychiatric: Alert, Oriented x3, No Motor/Sensory Deficits, Normal Mood/Affect Skin: Normal Color, Warm/Dry Comments 2+ pitting edema noted to the feet, ankles, and pretibial tissues (LARRY FORREST APRN) Progress/Results/Core Measures Suspected Sepsis SIRS Temperature: Pulse: 92 Respiratory Rate: 20 Laboratory Tests 01/13/22 12:50: White Blood Count 9.2 Blood Pressure 145 /79 Mean: 101 Laboratory Tests 01/13/22 12:50: Creatinine 1.49H, Platelet Count 201, Total Bilirubin 0.3 (LARRY FORREST APRN) Results/Orders Lab Results Laboratory Tests Test 01/13/22 12:50 Range/Units White Blood Count 9.2 4.3-11.0 10^3/uL Red Blood Count 2.89 L 3.80-5.11 10^6/uL Hemoglobin 9.3 L 11.5-16.0 g/dL Hematocrit 31 L 35-52 % Mean Corpuscular Volume 107 H 80-99 fL Mean Corpuscular Hemoglobin 32 25-34 pg Mean Corpuscular Hemoglobin Concent 30 L 32-36 g/dL Red Cell Distribution Width 13.1 10.0-14.5 % Platelet Count 201 130-400 10^3/uL Mean Platelet Volume 9.7 9.0-12.2 fL Immature Granulocyte % (Auto) 0 % Neutrophils (%) (Auto) 83 H 42-75 % Lymphocytes (%) (Auto) 8 L 12-44 % Monocytes (%) (Auto) 5 0-12 % Eosinophils (%) (Auto) 3 0-10 % Basophils (%) (Auto) 1 0-10 % Neutrophils # (Auto) 7.7 1.8-7.8 10^3/uL Lymphocytes # (Auto) 0.8 L 1.0-4.0 10^3/uL Monocytes # (Auto) 0.4 0.0-1.0 10^3/uL Eosinophils # (Auto) 0.3 0.0-0.3 10^3/uL Basophils # (Auto) 0.1 0.0-0.1 10^3/uL Immature Granulocyte # (Auto) 0.0 0.0-0.1 10^3/uL Sodium Level 139 135-145 MMOL/L Potassium Level 4.7 3.6-5.0 MMOL/L Chloride Level 99 98-107 MMOL/L Carbon Dioxide Level 29 21-32 MMOL/L Anion Gap 11 5-14 MMOL/L Blood Urea Nitrogen 37 H 7-18 MG/DL Creatinine 1.49 H 0.60-1.30 MG/DL Estimat Glomerular Filtration Rate 38 BUN/Creatinine Ratio 25 Glucose Level 193 H 70-105 MG/DL Calcium Level 8.5 8.5-10.1 MG/DL Corrected Calcium 9.1 8.5-10.1 MG/DL Total Bilirubin 0.3 0.1-1.0 MG/DL Aspartate Amino Transf (AST/SGOT) 27 5-34 U/L Alanine Aminotransferase (ALT/SGPT) 37 0-55 U/L Alkaline Phosphatase 122 40-136 U/L Troponin I < 0.028 <0.028 NG/ML B-Type Natriuretic Peptide 1547.6 H <100.0 PG/ML Total Protein 6.8 6.4-8.2 GM/DL Albumin 3.3 3.2-4.5 GM/DL (DAVIN DODSON MD) Medications Given in ED Current Medications Medications Dose Ordered Sig/Katrina Route Start Time Stop Time Status Last Admin Dose Admin Diphenhydramine HCl 25 mg ONCE ONCE IVP 01/13/22 12:45 01/13/22 12:46 DC 01/13/22 13:07 25 MG Furosemide 80 mg ONCE ONCE IVP 01/13/22 12:30 01/13/22 12:31 DC 01/13/22 12:53 80 MG (DAVIN DODSON MD) Vital Signs/I&O 01/13/22 01/13/22 12:05 12:05 Temp 36.9 Pulse 92 Resp 20 B/P (MAP) 145/79 (101) Pulse Ox 95 O2 Delivery Nasal Cannula Nasal Cannula O2 Flow Rate 4.00 4.00 (DAVIN DODSON MD) Vital Signs/I&O Capillary Refill : (LARRY FORREST APRN) Blood Pressure Mean: 101 Progress Note : Progress Note Patient is nontoxic and well-hydrated on exam. She is very anxious. Respir atory auscultation is difficult due to body habitus but she does appear to have diffusely decreased breath sounds. No rales noted on auscultation. Patient does have significant dependent edema in bilateral lower extremities. Laboratory evaluation notable for increased BNP. BUN and creatinine are elevated per patient's baseline given her history of chronic kidney disease. Given her progressively worsening edema and exertional dyspnea, will admit to the hospital for diuresis and further evaluation. Both Dr. Bailey and Dr. Quinones were notified of this plan to admit and kindly agreed to see the patient in the hospital. (LARRY FORREST APRN) Consults Consults : Consulting Physician: JEANMARIE QUINONES JR, MD Consults Notes Kindly agrees to see patient in consultation while admitted (LARRY FORREST APRN) Departure Impression Primary Impression: CHF exacerbation Qualified Codes: I50.9 - Heart failure, unspecified Disposition: ADMITTED INPATIENT Condition: Stable Admissions Decision to Admit Reason: Admit from ER (General) Decision to Admit/Date: Jan 13, 2022 Time/Decision to Admit Time: 14:00 (LARRY FORREST APRN) Departure-Patient Inst. Referrals: FERN BAILEY DO (PCP/Family) Primary Care Physician ATTENDING PHYSICIAN NOTE: I was physically present as attending physician in the emergency department during the care of this patient, but I was not directly involved in the decision making or delivery of care for this patient. (DAVIN DODSON MD) LARRY FORREST APRN Jan 13, 2022 12:21 DAVIN DODSON MD Jan 13, 2022 18:59
[2022-01-13] MEDS ORDERED: FUROSEMIDE 40 MG/4 ML INJ (LASIX) IVP ONE (12:30)
--- NOTE | 2022-01-13 12:44 | Diagnostic Imaging Report ---
INDICATION: Peripheral edema Portable chest 12:26 PM There is cardiomegaly with pulmonary vascular congestion. No appreciable effusion. Right IJ Port-A-Cath tip projects over the SVC. IMPRESSION: Congestive heart failure Dictated by: Dictated on workstation # [id number]
[2022-01-13] MEDS ORDERED: diphenhydrAMINE 50 MG/ML INJ (BENADRYL) IVP ONE (12:45)
[2022-01-13 13:03] LABS: BASOPHILS # (AUTO) 0.1 10^3/uL (0.0-0.1); BASOPHILS % (AUTO) 1 % (0-10); EOSINOPHILS # (AUTO) 0.3 10^3/uL (0.0-0.3); EOSINOPHILS % (AUTO) 3 % (0-10); HEMATOCRIT 31 % (35-52); HEMOGLOBIN 9.3 g/dL (11.5-16.0); LYMPHOCYTES # (AUTO) 0.8 10^3/uL (1.0-4.0); LYMPHOCYTES % (AUTO) 8 % (12-44); MEAN CORPUSCULAR HEMOGLOBIN 32 pg (25-34); MEAN CORPUSCULAR HGB CONC 30 g/dL (32-36); MEAN CORPUSCULAR VOLUME 107 fL (80-99); MEAN PLATELET VOLUME 9.7 fL (9.0-12.2); MONOCYTES # (AUTO) 0.4 10^3/uL (0.0-1.0); MONOCYTES % (AUTO) 5 % (0-12); NEUTROPHILS # (AUTO) 7.7 10^3/uL (1.8-7.8); NEUTROPHILS % (AUTO) 83 % (42-75); PLATELET COUNT 201 10^3/uL (130-400); WHITE BLOOD COUNT 9.2 10^3/uL (4.3-11.0)
[2022-01-13 13:13] LABS: ALBUMIN 3.3 GM/DL (3.2-4.5); CHLORIDE 99 MMOL/L (98-107); POTASSIUM 4.7 MMOL/L (3.6-5.0); SODIUM 139 MMOL/L (135-145)
[2022-01-13 13:14] LABS: CALCIUM 8.5 MG/DL (8.5-10.1)
[2022-01-13 13:15] LABS: GLUCOSE 193 MG/DL (70-105); TOTAL PROTEIN 6.8 GM/DL (6.4-8.2)
[2022-01-13 13:17] LABS: BILIRUBIN,TOTAL 0.3 MG/DL (0.1-1.0); CARBON DIOXIDE 29 MMOL/L (21-32)
[2022-01-13 13:19] LABS: ALKALINE PHOSPHATASE 122 U/L (40-136); CREATININE SERUM 1.49 MG/DL (0.60-1.30); GFR ESTIMATED 38
[2022-01-13 13:20] LABS: BUN/CREATININE RATIO 25
[2022-01-13 13:22] LABS: ALANINE AMINOTRANSFERASE 37 U/L (0-55)
--- NOTE | 2022-01-13 16:02 | Consultation-Cardiology ---
HPI-Cardiology Cardiology Consultation: Date of Consultation 01/13/22 Date of Admission 01/13/22 Attending Physician Deya Bailey DO Admitting Physician Admitting Physician: Deya Bailey DO Attending Physician: Deya Bailey DO Consulting Physician JEANMARIE GRIFFITH JR, MD HPI: Time Seen by a Provider: 16:30 Chief Complaint: REASON FOR CONSULTATION: Heart failure. I had the pleasure of seeing Rhea on the medical/surgical unit at [facility] in [place], [place] today. She is known to me from previous hospitalizations as well as the office. She has a history of chronic heart failure with preserved ejection fraction, mitral stenosis, pulmonary hypertension, hypertension, hyperlipidemia, type 2 diabetes mellitus, stage III chronic kidney disease, chronic respiratory failure with hypoxia, and morbid obesity among other less clinically significant issues. She was actually discharged from the hospital a little over a week ago after she was admitted with decompensated heart failure. She states that after she went home, she had been doing okay for the first couple of days but then started to experience increasing weight gain, worsening dyspnea on exertion and peripheral edema. She was trying to take an extra dose of Lasix as needed but despite doing this, she became more and more short of breath. Today she presented to the emergency room due to the ongoing dyspnea and weight gain. She was given intravenous furosemide in the emergency room and she is starting to feel better. She denies chest discomfort. She has had some paroxysmal nocturnal dyspnea but denies orthopnea. She has had some fluttering in her chest at times but denies associated complaints. She has had some lightheadedness but denies syncope. As above, her peripheral edema has gotten worse. Certain portions of this document may have been dictated utilizing voice recognition technology. Inherent to this technology, typographical and grammatical errors may exist. As much as I am diligent to identify and correct these mistakes, some errors may remain in the document. Review of Systems-Cardiology Review of Systems Other comments Review of 10 organ systems is as per the history of present illness, otherwise negative. SDB-[id number] Hx Patient Social History 2nd Hand Smoke Exposure: No Have you traveled recently?: No Alcohol Use?: No Pt feels they are or have been: No Immunizations Up To Date Tetanus Booster (TDap): Unknown Date of Pneumonia Vaccine: Feb 05, 2017 Date of Influenza Vaccine: Dec 05, 2021 Past Medical History PMH As described under Assessment. Family Medical History Family Medical History: Both of her parents of heart disease at a young age. Family History: Alzheimer's disease G8 SISTER Diabetes mellitus 19 FATHER Hypertension 19 FATHER 19 MOTHER Myocardial infarction 19 FATHER 19 MOTHER Neoplasm G8 SISTER Allergies and Home Medications Allergies Coded Allergies: Penicillins (Verified Allergy, Unknown, VOMITING, 12/09/21) meperidine (Verified Allergy, Unknown, VOMITING, 12/09/21) morphine (Unverified Allergy, Unknown, RASH, BREATHING DIFFICULTY, 12/09/21) propoxyphene (Verified Allergy, Unknown, 12/09/21) topiramate (Verified Allergy, Unknown, LOSS OF EYESIGHT, 12/09/21) codeine (Verified Adverse Reaction, Unknown, UPSET STOMACH, 12/09/21) dapagliflozin (Verified Adverse Reaction, Unknown, yeast infection, 12/09/21) Patient Home Medication List Home Medication List Reviewed: Yes Acetaminophen (Tylenol Extra Strength) 500 Mg Tablet, 1,000 MG PO BID PRN for PAIN-MILD, (Reported) Entered as Reported by: MOODY FRANCO on 11/02/17 1632 Albuterol Sulfate (Ventolin Hfa) 90 Mcg Hfa.aer.ad, 2 PUFF INH Q6H PRN for SHORTNESS OF BREATH, (Reported) Entered as Reported by: TROY HAQUE on 01/03/22 1127 Alprazolam (Alprazolam) 0.5 Mg Tablet, 0.5 MG PO BID PRN for ANXIETY, (Reported) Entered as Reported by: TROY HAQUE on 01/03/22 1127 Ascorbate Calcium (Vitamin C) 500 Mg Tablet, 500 MG PO DAILY, (Reported) Entered as Reported by: TEJA PORTILLO on 08/12/21 1323 Aspirin (Aspirin EC) 81 Mg Tablet.dr, 81 MG PO DAILY, (Reported) Entered as Reported by: MOODY FRANCO on 11/02/17 1632 Budesonide (Budesonide) 0.5 Mg/2 Ml Ampul.neb, 0.5 MG IH BID, (Reported) Entered as Reported by: TEJA PORTILLO on 08/12/21 1503 Buspirone HCl (Buspirone HCl) 5 Mg Tablet, 5 MG PO BID, (Reported) Entered as Reported by: TROY HAQUE on 01/03/22 1127 Cholecalciferol (Vitamin D3) (Vitamin D3) 125 Mcg (5000 Unit) Tablet, 125 MCG PO DAILY, (Reported) Entered as Reported by: TEJA PORTILLO on 08/12/21 1324 Formoterol Fumarate (Perforomist) 20 Mcg/2 Ml Vial.neb, 20 MCG IH BID, (Reported) Entered as Reported by: TEJA PORTILLO on 08/12/21 1503 Furosemide (Furosemide) 40 Mg Tablet, 40 MG PO DAILY@0700,1200 Prescribed by: DEYA BAILEY on 01/06/22 1002 Gabapentin (Neurontin) 300 Mg Capsule, 300 MG PO QID, (Reported) Entered as Reported by: TEJA PORTILLO on 08/12/21 1320 Insulin Aspart (Insulin Aspart Flexpen) 100 Unit/Ml (3 Ml) Insuln.pen, 6 UNIT SQ DAILY, (Reported) Entered as Reported by: Linh Cat on 08/11/21 1009 Insulin Degludec (Tresiba Flextouch U-200) 200 Unit/Ml (3 Ml) Insuln.pen, 30 UNITS SC BID, (Reported) Entered as Reported by: MOODY FRANCO on 11/02/17 1632 Levothyroxine Sodium (Levothyroxine Sodium) 125 Mcg Tablet, 125 MCG PO DAILY, (Reported) Entered as Reported by: ALHAJI HORTA on 09/13/19 0833 Losartan Potassium (Losartan Potassium) 50 Mg Tablet, 50 MG PO DAILY, (Reported) Entered as Reported by: MOODY FRANCO on 11/02/17 1632 Melatonin (Melatonin) 3 Mg Tablet, 3 MG PO HS, (Reported) Entered as Reported by: TROY HAQUE on 01/03/22 1127 Metoprolol Succinate (Metoprolol Succinate) 25 Mg Tab.er.24h, 25 MG PO DAILY, (Reported) Entered as Reported by: MOODY FRANCO on 11/02/17 1632 Montelukast Sodium (Montelukast Sodium) 10 Mg Tablet, 10 MG PO HS, (Reported) Entered as Reported by: TROY HAQUE on 06/20/20 1407 Pantoprazole Sodium (Pantoprazole Sodium) 40 Mg Tablet.dr, 40 MG PO DAILY, (Reported) Entered as Reported by: ALHAJI HORTA on 09/13/19 0833 Potassium Chloride (Potassium Chloride) 10 Meq Tab.er.prt, 10 MEQ PO DAILY, (Reported) Entered as Reported by: TROY HAQUE on 06/20/20 1407 Promethazine HCl (Promethazine Tablet) 25 Mg Tablet, 25 MG PO Q6H PRN for NAUSEA/VOMITING-2ND LINE, (Reported) Entered as Reported by: TROY HAQUE on 12/03/21 1230 Revefenacin (Yupelri) 175 Mcg/3 Ml Vial.neb, 175 MCG IH 1200, (Reported) Entered as Reported by: TEJA PORTILLO on 08/12/21 1504 Sildenafil Citrate (Sildenafil) 20 Mg Tablet, 20 MG PO TID, (Reported) Entered as Reported by: Linh Cat on 08/11/21 1009 Simvastatin (Simvastatin) 10 Mg Tablet, 10 MG PO HS, (Reported) Entered as Reported by: Linh Cat on 08/11/21 1009 Trazodone HCl (Trazodone HCl) 50 Mg Tablet, 150 MG PO HS, (Reported) Entered as Reported by: TROY HAQUE on 01/03/22 1127 Venlafaxine HCl (Venlafaxine HCl ER) 150 Mg Cap.er.24h, 150 MG PO DAILY, (Reported) Entered as Reported by: TEJA PORTILLO on 08/12/21 1217 Zinc Amino Acid Chelate (Zinc) 50 Mg Tablet, 50 MG PO DAILY, (Reported) Entered as Reported by: TEJA PORTILLO on 08/12/21 1323 Discontinued Medications Furosemide (Furosemide) 40 Mg Tablet, 40 MG PO DAILY, (Reported) Entered as Reported by: TROY HAQUE on 01/03/22 1127 Furosemide (Furosemide) 40 Mg Tablet, 40 MG PO 1400 PRN for EXCESS FLUID, (Reported) Entered as Reported by: TROY HAQUE on 01/03/22 1127 Exam Vital Signs Vital Signs Date Time Temp Pulse Resp B/P (MAP) Pulse Ox O2 Delivery O2 Flow Rate FiO2 01/13/22 16:56 37.3 82 19 116/82 (93) 100 Nasal Cannula 4.00 Physical Exam General: Alert. No acute distress. Well nourished and appears stated age. She is obese. Eye: Extraocular movements are intact. Conjunctivae are clear. There are no xanthelasma. HENT: Normocephalic. Atraumatic. Carotid pulsations 2/2 without bruits. Neck: Jugular venous pressure does not appear elevated. No thyromegaly appreciated. Respiratory: Lungs are clear to auscultation. Respirations are non-labored. Breath sounds are equal. Symmetrical chest wall expansion. Cardiovascular: Normal rate. Regular rhythm. Distant S1/S2. No murmur. No gallop. Point of maximal impulse is not appear displaced. Good pulses equal in all extremities. 1+ bilateral pretibial edema. Gastrointestinal: Soft. Normal bowel sounds. Skin: Skin turgor is normal. There is no pallor. Her right and left lower quadrants appear to have a subcutaneous hematoma. This is tender to the touch. Musculoskeletal: No kyphosis or scoliosis appreciated. Neurologic: Alert and oriented to person, place, time. Cranial nerves 3-12 appear grossly intact. The patient has good motor tone strength in the upper and lower extremities bilaterally. Psychiatric: Cooperative. Appropriate mood & affect. Labs Laboratory Tests Test 01/13/22 12:50 01/13/22 16:50 Range/Units White Blood Count 9.2 4.3-11.0 10^3/uL Red Blood Count 2.89 L 3.80-5.11 10^6/uL Hemoglobin 9.3 L 11.5-16.0 g/dL Hematocrit 31 L 35-52 % Mean Corpuscular Volume 107 H 80-99 fL Mean Corpuscular Hemoglobin 32 25-34 pg Mean Corpuscular Hemoglobin Concent 30 L 32-36 g/dL Red Cell Distribution Width 13.1 10.0-14.5 % Platelet Count 201 130-400 10^3/uL Mean Platelet Volume 9.7 9.0-12.2 fL Immature Granulocyte % (Auto) 0 % Neutrophils (%) (Auto) 83 H 42-75 % Lymphocytes (%) (Auto) 8 L 12-44 % Monocytes (%) (Auto) 5 0-12 % Eosinophils (%) (Auto) 3 0-10 % Basophils (%) (Auto) 1 0-10 % Neutrophils # (Auto) 7.7 1.8-7.8 10^3/uL Lymphocytes # (Auto) 0.8 L 1.0-4.0 10^3/uL Monocytes # (Auto) 0.4 0.0-1.0 10^3/uL Eosinophils # (Auto) 0.3 0.0-0.3 10^3/uL Basophils # (Auto) 0.1 0.0-0.1 10^3/uL Immature Granulocyte # (Auto) 0.0 0.0-0.1 10^3/uL Sodium Level 139 135-145 MMOL/L Potassium Level 4.7 3.6-5.0 MMOL/L Chloride Level 99 98-107 MMOL/L Carbon Dioxide Level 29 21-32 MMOL/L Anion Gap 11 5-14 MMOL/L Blood Urea Nitrogen 37 H 7-18 MG/DL Creatinine 1.49 H 0.60-1.30 MG/DL Estimat Glomerular Filtration Rate 38 BUN/Creatinine Ratio 25 Glucose Level 193 H 70-105 MG/DL Calcium Level 8.5 8.5-10.1 MG/DL Corrected Calcium 9.1 8.5-10.1 MG/DL Total Bilirubin 0.3 0.1-1.0 MG/DL Aspartate Amino Transf (AST/SGOT) 27 5-34 U/L Alanine Aminotransferase (ALT/SGPT) 37 0-55 U/L Alkaline Phosphatase 122 40-136 U/L Troponin I < 0.028 <0.028 NG/ML B-Type Natriuretic Peptide 1547.6 H <100.0 PG/ML Total Protein 6.8 6.4-8.2 GM/DL Albumin 3.3 3.2-4.5 GM/DL Glucometer 97 70-110 MG/DL Radiology ECHOCARDIOGRAM (11/29/2021): 1. This is a technically difficult study due to poor image quality secondary to poor acoustic windows. Intravenous contrast was planned however IV access could not be obtained. 2. Normal left ventricular chamber size with moderate concentric hypertrophy. Normal left ventricular systolic function with an estimated ejection fraction of 60-65%. There is flattening of the intraventricular septum consistent with right ventricular pressure and/or volume overload. 3. The left ventricular diastolic function is indeterminate. 4. The right ventricle is mildly dilated measuring 3.5 cm at the base but with normal systolic function. TAPSE 1.7 cm. 5. The left atrium is mildly dilated with a volume index of 37 mL/m. 6. There is mild-moderate mitral stenosis with a mean gradient of 9 mmHg, a pressure half-time of 117 ms and a calculated mitral valve area of 1.9 cm. 7. There is mild aortic valve sclerosis. There is mild aortic regurgitation although an accurate pressure half-time could not be obtained. 8. There is moderate-severe tricuspid regurgitation. 9. The estimated pulmonary artery systolic pressure is 65 mmHg assuming a right atrial pressure of 5 mmHg. 10. Compared to the previous study from 05/22/2021, the estimated pulmonary artery systolic pressure is similar on both studies. The previous study did not have adequate Doppler on the mitral valve to assess for mitral stenosis but this study confirms the patient has mild-moderate mitral stenosis. ECG Impression ECG Comment Electrocardiogram from the emergency room shows sinus rhythm with low voltage in the precordial leads, nonspecific intraventricular conduction delay, poor R wave progression and nonspecific ST-T wave changes. Diagnosis/Problems Diagnosis/Problems (1) Acute on chronic heart failure with preserved ejection fraction (HFpEF) Status: Acute Assessment & Plan: Her BNP is slightly higher than 2 weeks ago and her chest x- ray again shows pulmonary edema. Despite taking extra doses of furosemide at home, she has worsening congestion. She is now receiving intravenous bumetanide. She may be having poor absorption of the furosemide due to some bowel edema. When she is ready to transition back to oral diuretic, we may want to place her on oral bumetanide or torsemide which absorb better when patient's abdominal edema. (2) Mitral stenosis Status: Chronic Assessment & Plan: She has mild to moderate mitral stenosis noted on her previous echocardiogram. I do not think this is at the point that this needs intervention but this will need to be followed longitudinally. (3) Pulmonary hypertension Status: Chronic Assessment & Plan: This is most likely multifactorial. The patient may benefit from home oxygen if she is not already using this. She does also follow with a concrete building assembler at [facility]. (4) Primary hypertension Status: Chronic Assessment & Plan: Continue outpatient antihypertensive medication. (5) Mixed hyperlipidemia Status: Chronic Assessment & Plan: Continue statin medication. (6) Acute on chronic respiratory failure with hypoxemia Status: Acute Assessment & Plan: Most likely multifactorial due to underlying pulmonary disease as well as the decompensated heart failure. (7) Stage 3a chronic kidney disease Status: Chronic Assessment & Plan: We will need to watch this closely with the intravenous diuretic. She will be seeing a hadoop analyst as an outpatient in the near future. (8) Type 2 diabetes mellitus with complication Status: Chronic Assessment & Plan: This is being managed by the hospitalist. (9) Morbid obesity Status: Chronic Assessment & Plan: She has been counseled about weight loss and health implications of obesity. JEANMARIE GRIFFITH JR, MD Jan 13, 2022 16:02
--- NOTE | 2022-01-13 16:05 | History & Physical ---
LORIN PFEIFFER 01/13/22 1605: History of Present Illness History of Present Illness Reason for visit/HPI Patient is a 66 year old woman admitted for CHF exacerbation. She was recently discharged from the hospital on 01/06 after being admitted for acute volume overload. She states that for the past 4-5 she has been experiencing progressively worsening SOB and swelling. She also notes left-sided abdominal pain, bilateral mid-back pain, nausea, headache, lightheadedness, urinary frequency, and chronic blurred vision. She denies vomiting, chest pain, diarrhea, burning with urination. She takes furosemide for her heart failure, typically 40 mg but states that she sometimes takes 80 or 120 mg but hasn't noticed any improvement over the last 4-5 days of her symptoms. PMH of CHF, COPD, HTN, Type II Diabetes, stage III kidney failure, hyperlipidemia, pulmonary hypertension, CAD, sleep apnea, anxiety, depression. She is anxious in demeanor and worried about her condition. Notable lab values include creatinine of 1.49, BUN of 37, and heavily increased BNP of 1547. Date of Admission Jan 13, 2022 at 14:20 Date Seen by a Provider: Jan 13, 2022 Time Seen by a Provider: 15:20 I consulted on this patient on 01/13/22 15:55 Attending Physician Deya Bailey DO Admitting Physician Admitting Physician: Deya Bailey DO Attending Physician: Deya Bailey DO Consult JEANMARIE GRIFFITH JR, MD Allergies and Home Medications Allergies Coded Allergies: Penicillins (Verified Allergy, Unknown, VOMITING, 12/09/21) meperidine (Verified Allergy, Unknown, VOMITING, 12/09/21) morphine (Unverified Allergy, Unknown, RASH, BREATHING DIFFICULTY, 12/09/21) propoxyphene (Verified Allergy, Unknown, 12/09/21) topiramate (Verified Allergy, Unknown, LOSS OF EYESIGHT, 12/09/21) codeine (Verified Adverse Reaction, Unknown, UPSET STOMACH, 12/09/21) dapagliflozin (Verified Adverse Reaction, Unknown, yeast infection, 12/09/21) Patient Home Medication List Home Medication List Reviewed: Yes Acetaminophen (Tylenol Extra Strength) 500 Mg Tablet, 1,000 MG PO BID PRN for PAIN-MILD, (Reported) Entered as Reported by: MOODY FRANCO on 11/02/17 1632 Last Action: Continued Albuterol Sulfate (Ventolin Hfa) 90 Mcg Hfa.aer.ad, 2 PUFF INH Q6H PRN for SHORTNESS OF BREATH, (Reported) Entered as Reported by: TROY HAQUE on 01/03/22 112 Last Action: Continued Alprazolam (Alprazolam) 0.5 Mg Tablet, 0.5 MG PO BID PRN for ANXIETY, (Reported) Entered as Reported by: TROY HAQUE on 01/03/22 112 Last Action: Held Ascorbate Calcium (Vitamin C) 500 Mg Tablet, 500 MG PO DAILY, (Reported) Entered as Reported by: TEJA PORTILLO on 08/12/21 132 Last Action: Converted Aspirin (Aspirin EC) 81 Mg Tablet.dr, 81 MG PO DAILY, (Reported) Entered as Reported by: MOODY FRANCO on 11/02/17 1632 Last Action: Continued Budesonide (Budesonide) 0.5 Mg/2 Ml Ampul.neb, 0.5 MG IH BID, (Reported) Entered as Reported by: TEJA PORTILLO on 08/12/21 1503 Last Action: Continued Buspirone HCl (Buspirone HCl) 5 Mg Tablet, 5 MG PO BID, (Reported) Entered as Reported by: TROY HAQUE on 01/03/221126 Last Action: Continued Cholecalciferol (Vitamin D3) (Vitamin D3) 125 Mcg (5000 Unit) Tablet, 125 MCG PO DAILY, (Reported) Entered as Reported by: TEJA PORTILLO on 08/12/21 1324 Last Action: Continued Formoterol Fumarate (Perforomist) 20 Mcg/2 Ml Vial.neb, 20 MCG IH BID, (Reported) Entered as Reported by: TEJA PORTILLO on 08/12/21 1503 Last Action: Converted Furosemide (Furosemide) 40 Mg Tablet, 40 MG PO DAILY@0700,1200 Prescribed by: DEYA BAILEY on 01/06/22 1002 Last Action: Held Gabapentin (Neurontin) 300 Mg Capsule, 300 MG PO QID, (Reported) Entered as Reported by: TEJA PORTILLO on 08/12/21 1320 Last Action: Continued Insulin Aspart (Insulin Aspart Flexpen) 100 Unit/Ml (3 Ml) Insuln.pen, 6 UNIT SQ DAILY, (Reported) Entered as Reported by: Linh Cat on 08/11/21 1009 Last Action: Converted Insulin Degludec (Tresiba Flextouch U-200) 200 Unit/Ml (3 Ml) Insuln.pen, 30 UNITS SC BID, (Reported) Entered as Reported by: MOODY FRANCO on 11/02/17 163 Last Action: Converted Levothyroxine Sodium (Levothyroxine Sodium) 125 Mcg Tablet, 125 MCG PO DAILY, (Reported) Entered as Reported by: ALHAJI HORTA on 09/13/19 0833 Last Action: Continued Losartan Potassium (Losartan Potassium) 50 Mg Tablet, 50 MG PO DAILY, (Reported) Entered as Reported by: MOODY FRANCO on 11/02/17 163 Last Action: Held Melatonin (Melatonin) 3 Mg Tablet, 3 MG PO HS, (Reported) Entered as Reported by: TROY HAQUE on 01/03/22 1127 Last Action: Continued Metoprolol Succinate (Metoprolol Succinate) 25 Mg Tab.er.24h, 25 MG PO DAILY, (Reported) Entered as Reported by: MOODY FRANCO on 11/02/17 163 Last Action: Continued Montelukast Sodium (Montelukast Sodium) 10 Mg Tablet, 10 MG PO HS, (Reported) Entered as Reported by: TROY HAQUE on 06/20/20 140 Last Action: Continued Pantoprazole Sodium (Pantoprazole Sodium) 40 Mg Tablet.dr, 40 MG PO DAILY, (Reported) Entered as Reported by: ALHAJI HORTA on 09/13/1933 Last Action: Continued Potassium Chloride (Potassium Chloride) 10 Meq Tab.er.prt, 10 MEQ PO DAILY, (Rep orted) Entered as Reported by: TROY HAQUE on 06/20/20 1407 Last Action: Converted Promethazine HCl (Promethazine Tablet) 25 Mg Tablet, 25 MG PO Q6H PRN for NAUSEA/VOMITING-2ND LINE, (Reported) Entered as Reported by: TROY HAQUE on 12/03/21 1230 Last Action: Continued Revefenacin (Yupelri) 175 Mcg/3 Ml Vial.neb, 175 MCG IH 1200, (Reported) Entered as Reported by: TEJA PORTILLO on 08/12/21 1504 Last Action: Converted Sildenafil Citrate (Sildenafil) 20 Mg Tablet, 20 MG PO TID, (Reported) Entered as Reported by: Linh Cat on 08/11/21 1009 Last Action: Converted Simvastatin (Simvastatin) 10 Mg Tablet, 10 MG PO HS, (Reported) Entered as Reported by: Linh Cat on 08/11/21 1009 Last Action: Converted Trazodone HCl (Trazodone HCl) 50 Mg Tablet, 150 MG PO HS, (Reported) Entered as Reported by: TROY HAQUE on 01/03/22 1127 Last Action: Continued Venlafaxine HCl (Venlafaxine HCl ER) 150 Mg Cap.er.24h, 150 MG PO DAILY, (Reported) Entered as Reported by: TEJA PORTILLO on 08/12/21 1217 Last Action: Converted Zinc Amino Acid Chelate (Zinc) 50 Mg Tablet, 50 MG PO DAILY, (Reported) Entered as Reported by: TEJA PORTILLO on 08/12/21 1323 Last Action: Converted Past Rjcguoy-Nmdbfa-Cyadpa Hx Patient Social History Tobacco Use?: No Use of E-Cig and/or Vaping dev: No Substance use?: No Alcohol Use?: No Pt feels they are or have been: No Immunizations Up To Date Date of Influenza Vaccine: Dec 05, 2021 First/Initial COVID19 Vaccinat: 2020 Second COVID19 Vaccination Trey: 2020 Tetanus Booster (TDap): Less Than 5 Years Hepatitis A: No Hepatitis B: No Date of Pneumonia Vaccine: Feb 05, 2017 Seasonal Allergies Seasonal Allergies: No Current Status Advance Directives: Yes Communicates: Verbally Primary Language: Albanian Preferred Spoken Language: Albanian Is interpretation needed?: No Past Medical History Surgeries: Appendectomy, Gallbladder, Orthopedic, Thyroidectomy Pneumonia, Sleep Apnea, COPD Currently Using CPAP: No Currently Using BIPAP: No Cardiomyopathy, Chronic Edema/Swelling, Coronary Artery Disease, High Cholesterol, Hypertension Neuropathy 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: Menopausal Sexually Transmitted Disease: No HIV/AIDS: No UTI-Chronic Colitis, Gastroesophageal Reflux, Chronic Constipation, Hemorrhoids, Gall Bladder Disease Degenerate Disk Disease, Arthritis Diabetes, Insulin dep, Hypothyroidsim Cataract Loss of Vision: Bilateral (Chronic vision loss) Hearing Impairment: Denies Anxiety, Depression Blood Disorders: Yes (ANEMIA) Adverse Reaction/Blood Tranf: No Hypertension Hyperlipidemia Type 2 diabetes mellitus Coronary artery disease COPD Chronic respiratory failure with hypoxia Heart failure with preserved ejection fraction Morbid obesity Family Medical History Alzheimer's disease G8 SISTER Diabetes mellitus 19 FATHER Hypertension 19 FATHER 19 MOTHER Myocardial infarction 19 FATHER 19 MOTHER Neoplasm G8 SISTER No Pertinent Family Hx Noncontributory Review of Systems Constitutional: see HPI EENTM: blurred vision (Chronic and worsening) Respiratory: see HPI, dyspnea on exertion, short of breath, wheezing (Minor) Cardiovascular: see HPI; No chest pain; edema (Swelling in shins, ankles, and feet bilaterally) Gastrointestinal: see HPI, abdominal pain (General left-sided abdominal pain), constipation; No diarrhea; nausea; No vomiting Genitourinary: see HPI; No decreased output, No dysuria; frequency; No hesitancy, No pain Musculoskeletal: back pain (Bilateral mid-back pain that she believes is from her kidneys) Skin: see HPI Psychiatric/Neurological: See HPI, Anxiety, Depressed Physical Exam Vital Signs Vital Signs - First Documented Capillary Refill : Height, Weight, BMI Height: 5'4.00" Weight: 246lbs. 6.0oz. [id number]; 47.00 BMI Method:Stated General Appearance: Anxious, Chronically ill, Obese HEENT: PERRL/EOMI Neck: Full Range of Motion, Normal Inspection, Non Tender, Supple; No Carotid Bruit, No JVD Respiratory: Chest Non Tender, No Accessory Muscle Use, No Respiratory Distress, Decreased Breath Sounds Cardiovascular: Regular Rate, Rhythm, No Gallop, No JVD, No Murmur Gastrointestinal: Normal Bowel Sounds, No Pulsatile Mass, Non Tender, Soft, Distended, Tenderness (In LLQ and LUQ) Extremity: Normal Capillary Refill, Pedal Edema, Swelling (Swelling of shins, ankles and feet bilaterally with pain in right foot) Neurologic/Psychiatric: Alert, Oriented x3, No Motor/Sensory Deficits, Normal Mood/Affect Skin: Normal Color, Warm/Dry Lymphatic: No Adenopathy Assessment/Plan Assessment and Plan CHF exacerbation - Given patient's failure to improve with furosemide up to 120 mg, a careful increase in dose or switch to torsemide may be warranted. Continue to monitor respiratory symptoms and fluid levels. Continue oxygen via NC. Consult cardiology for possible structural defect or arrhythmia as source of treatment failure. COPD - albuterol sulfate, budesonide, revefenacin Anxiety - alprazolam, buspirone Depression - venlafaxine Primary hypertension - losartan, metoprolol Hyperlipidemia - simvastatin Type II DM - insulin aspart, insulin degludec GERD - pantoprazole Hypothyroidism - levothyroxine Admission Diagnosis CHF exacerbation Admission Status: Inpatient Order (span 2 midnights) Reason for Inpatient Admission: Patient presents with worsening symptoms of chronic health conditions. Due to comorbid conditions, inpatient management is the safest avenue for treatment consider the patient's failure to improve with outpatient diuresis. Clinical Quality Measures AMI/AHF: Ejection Fraction %: 60 Ejection Fraction: Above/Equal to 40 DEYA BAILEY DO 01/15/22 0512: Allergies and Home Medications Allergies Coded Allergies: Penicillins (Verified Allergy, Unknown, VOMITING, 12/09/21) meperidine (Verified Allergy, Unknown, VOMITING, 12/09/21) morphine (Unverified Allergy, Unknown, RASH, BREATHING DIFFICULTY, 12/09/21) propoxyphene (Verified Allergy, Unknown, 12/09/21) topiramate (Verified Allergy, Unknown, LOSS OF EYESIGHT, 12/09/21) codeine (Verified Adverse Reaction, Unknown, UPSET STOMACH, 12/09/21) dapagliflozin (Verified Adverse Reaction, Unknown, yeast infection, 12/09/21) Patient Home Medication List Acetaminophen (Tylenol Extra Strength) 500 Mg Tablet, 1,000 MG PO BID PRN for PAIN-MILD, (Reported) Entered as Reported by: MOODY FRANCO on 11/02/171631 Last Action: Continued Albuterol Sulfate (Ventolin Hfa) 90 Mcg Hfa.aer.ad, 2 PUFF INH Q6H PRN for SHORTNESS OF BREATH, (Reported) Entered as Reported by: TROY HAQUE on 01/03/221126 Last Action: Continued Alprazolam (Alprazolam) 0.5 Mg Tablet, 0.5 MG PO BID PRN for ANXIETY, (Reported) Entered as Reported by: TROY HAQUE on 01/03/22 112 Last Action: Held Ascorbate Calcium (Vitamin C) 500 Mg Tablet, 500 MG PO DAILY, (Reported) Entered as Reported by: TEJA PORTILLO on 08/12/21 1323 Last Action: Converted Aspirin (Aspirin EC) 81 Mg Tablet.dr, 81 MG PO DAILY, (Reported) Entered as Reported by: MOODY FRANCO on 11/02/17 1632 Last Action: Continued Budesonide (Budesonide) 0.5 Mg/2 Ml Ampul.neb, 0.5 MG IH BID, (Reported) Entered as Reported by: TEJA PORTILLO on 08/12/21 1503 Last Action: Continued Buspirone HCl (Buspirone HCl) 5 Mg Tablet, 5 MG PO BID, (Reported) Entered as Reported by: TROY HAQUE on 01/03/22 1127 Last Action: Continued Cholecalciferol (Vitamin D3) (Vitamin D3) 125 Mcg (5000 Unit) Tablet, 125 MCG PO DAILY, (Reported) Entered as Reported by: TEJA PORTILLO on 08/12/21 1324 Last Action: Continued Formoterol Fumarate (Perforomist) 20 Mcg/2 Ml Vial.neb, 20 MCG IH BID, (Reported) Entered as Reported by: TEJA PORTILLO on 08/12/21 1503 Last Action: Converted Furosemide (Furosemide) 40 Mg Tablet, 40 MG PO DAILY@0700,1200 Prescribed by: DEYA BAILEY on 01/06/22 1002 Last Action: Held Gabapentin (Neurontin) 300 Mg Capsule, 300 MG PO QID, (Reported) Entered as Reported by: TEJA PORTILLO on 08/12/21 1320 Last Action: Continued Insulin Aspart (Insulin Aspart Flexpen) 100 Unit/Ml (3 Ml) Insuln.pen, 6 UNIT SQ DAILY, (Reported) Entered as Reported by: Linh Cat on 08/11/21 1009 Last Action: Converted Insulin Degludec (Tresiba Flextouch U-200) 200 Unit/Ml (3 Ml) Insuln.pen, 30 UNITS SC BID, (Reported) Entered as Reported by: MOODY FRANCO on 11/02/17 1632 Last Action: Converted Levothyroxine Sodium (Levothyroxine Sodium) 125 Mcg Tablet, 125 MCG PO DAILY, (Reported) Entered as Reported by: ALHAJI HORTA on 09/13/19 0833 Last Action: Continued Losartan Potassium (Losartan Potassium) 50 Mg Tablet, 50 MG PO DAILY, (Reported) Entered as Reported by: MOODY FRANCO on 11/02/17 1632 Last Action: Held Melatonin (Melatonin) 3 Mg Tablet, 3 MG PO HS, (Reported) Entered as Reported by: TROY HAQUE on 01/03/22 1127 Last Action: Continued Metoprolol Succinate (Metoprolol Succinate) 25 Mg Tab.er.24h, 25 MG PO DAILY, (Reported) Entered as Reported by: MOODY FRANCO on 11/02/17 1632 Last Action: Continued Montelukast Sodium (Montelukast Sodium) 10 Mg Tablet, 10 MG PO HS, (Reported) Entered as Reported by: TROY HAQUE on 06/20/20 1407 Last Action: Continued Pantoprazole Sodium (Pantoprazole Sodium) 40 Mg Tablet.dr, 40 MG PO DAILY, (Reported) Entered as Reported by: ALHAJI HORTA on 09/13/19 0833 Last Action: Continued Potassium Chloride (Potassium Chloride) 10 Meq Tab.er.prt, 10 MEQ PO DAILY, (Reported) Entered as Reported by: TROY HAQUE on 06/20/20 140 Last Action: Converted Promethazine HCl (Promethazine Tablet) 25 Mg Tablet, 25 MG PO Q6H PRN for NAUSEA/VOMITING-2ND LINE, (Reported) Entered as Reported by: TROY HAQUE on 12/03/21 1230 Last Action: Continued Revefenacin (Yupelri) 175 Mcg/3 Ml Vial.neb, 175 MCG IH 1200, (Reported) Entered as Reported by: TEJA PORTILLO on 08/12/21 1504 Last Action: Converted Sildenafil Citrate (Sildenafil) 20 Mg Tablet, 20 MG PO TID, (Reported) Entered as Reported by: Linh Cat on 08/11/21 1009 Last Action: Converted Simvastatin (Simvastatin) 10 Mg Tablet, 10 MG PO HS, (Reported) Entered as Reported by: Linh Cat on 08/11/21 1009 Last Action: Converted Trazodone HCl (Trazodone HCl) 50 Mg Tablet, 150 MG PO HS, (Reported) Entered as Reported by: TROY HAQUE on 01/03/22 1127 Last Action: Continued Venlafaxine HCl (Venlafaxine HCl ER) 150 Mg Cap.er.24h, 150 MG PO DAILY, (Reported) Entered as Reported by: TEJA PORTILLO on 08/12/21 1217 Last Action: Converted Zinc Amino Acid Chelate (Zinc) 50 Mg Tablet, 50 MG PO DAILY, (Reported) Entered as Reported by: TEJA PORTILLO on 08/12/21 1323 Last Action: Converted Past Mnmvujw-Qbtbjv-Diugpz Hx Family Medical History Alzheimer's disease G8 SISTER Diabetes mellitus 19 FATHER Hypertension 19 FATHER 19 MOTHER Myocardial infarction 19 FATHER 19 MOTHER Neoplasm G8 SISTER Assessment/Plan Assessment and Plan AECHF CKD DM ANxiety Plan: Home meds Monitor closely Admission Diagnosis Admission Status: Inpatient Order (span 2 midnights) Reason for Inpatient Admission: CHF with CKD Supervisory-Addendum Brief Verification & Attestation Participated in pt care: history, MDM, physical Personally performed: exam, history, MDM, supervision of care Care discussed with: Medical Student Procedures: n/a Results interpretation: Verified all documentation Verification and Attestation of Medical Student E/M Service A medical student performed and documented this service in my presence. I reviewed and verified all information documented by the medical student and made modifications to such information, when appropriate. I personally performed the physical exam and medical decision making. Deya Bailey, Jan 15, 2022,05:12 LOIRN PFEIFFER Jan 13, 2022 16:05 DEYA BAILEY DO Jan 15, 2022 05:12
[2022-01-13] MEDS ORDERED: ONDANSETRON 4 MG (ZOFRAN) ORAL DISSOLVE TAB PO PRN (16:15)
[2022-01-13] MEDS ORDERED: MILK OF MAGNESIA 400 MG/5 ML 30 ML UDC PO PRN (16:15)
[2022-01-13] MEDS ORDERED: ANTACID SUSP 30 ML UDC (MYLANTA) PO PRN (16:15)
[2022-01-13] MEDS ORDERED: LACTULOSE SYRUP 10GM/15ML (ENULOSE) 30ML UDC PO PRN (16:15)
[2022-01-13] MEDS ORDERED: CALCIUM CARBONATE 500 MG (TUMS) TAB.CHEW PO PRN (16:15)
[2022-01-13] MEDS ORDERED: BISACODYL 10 MG SUPP (DULCOLAX) PR PRN (16:15)
[2022-01-13] MEDS ORDERED: MELATONIN 3 MG TABLET PO PRN (16:15)
[2022-01-13] MEDS ORDERED: polyethylene glycoL POWDER 17 GM (MIRALAX) PACK PO PRN (16:15)
[2022-01-13] MEDS ORDERED: HYDROmorphone 2 MG/ML VIAL (DILAUDID) IV PRN (16:15)
[2022-01-13] MEDS ORDERED: ALPRAZolam 0.5 MG (XANAX) TAB PO PRN (16:15)
[2022-01-13] MEDS ORDERED: ACETAMINOPHEN 325 MG TABLET PO PRN (16:15)
[2022-01-13] MEDS ORDERED: diphenhydrAMINE 50 MG/ML INJ (BENADRYL) IVP PRN (16:15)
[2022-01-13] MEDS ORDERED: diphenhydrAMINE 25 MG TAB (BENADRYL) PO PRN (16:15)
[2022-01-13] MEDS ORDERED: ENOXAPARIN 40 MG/0.4 ML (LOVENOX) SYR SC SCH ×2 (16:15→17:00)
[2022-01-13] MEDS ORDERED: ONDANSETRON 4 MG/2 ML (SDV) Z0FRAN IV PRN (16:15)
[2022-01-13 16:56] VITALS: BP 116/82
[2022-01-13] MEDS ORDERED: RT-ALBUTEROL SULF 2.5 MG/3 ML PRE-MIX VIAL INH PRN ×2 (17:15→20:30)
[2022-01-13 19:32] VITALS: BP 120/68
[2022-01-13] MEDS ORDERED: ACETAMINOPHEN 500 MG TAB (TYLENOL) PO PRN (20:30)
[2022-01-13] MEDS ORDERED: PROMETHAZINE 25 MG (PHENERGAN) TAB PO PRN (20:30)
[2022-01-13] MEDS ORDERED: NON-FORMULARY MEDICATION 1 EA EA (Sildenafil Citrate (Sildenafil) 20 MG) PO SCH (21:00)
[2022-01-13] MEDS: RT-ALBUTEROL SULF 2.5 MG/3 ML PRE-MIX VIAL INH SCH (21:39)
[2022-01-13] MEDS: MELATONIN 3 MG TABLET PO SCH (22:29)
[2022-01-13] MEDS: busPIRone 5 MG (BUSPAR) TAB PO SCH (22:29)
[2022-01-13] MEDS: GABAPENTIN 300 MG (NEURONTIN) CAP PO SCH (22:29)
[2022-01-13] MEDS: MONTELUKAST 10 MG (SINGULAIR) TAB PO SCH (22:29)
[2022-01-13] MEDS: BUMETANIDE 1 MG/4 ML (BUMEX) VIAL IV SCH (22:30)
[2022-01-13] MEDS: DOCUSATE SODIUM 100 MG (COLACE) CAP PO SCH (22:40)
[2022-01-13] MEDS: SENNOSIDES 8.6 MG (SENOKOT) TAB PO SCH (22:40)
[2022-01-13] MEDS: inSUlin ASPART (NovoLOG) 1 UNIT/0.01 ML (CHARGE PER UNIT) SC SCH (22:40)
[2022-01-13] MEDS: traZODone 50 MG (DESYREL) TAB PO SCH (23:43)
[2022-01-13 23:50] VITALS: BP 124/69
[2022-01-14] MEDS ORDERED: RT-ALBUTEROL HFA 8.5 GM INHALER IH SCH
[2022-01-14 03:27] VITALS: BP 166/76
[2022-01-14 04:25] LABS: BASOPHILS # (AUTO) 0.1 10^3/uL (0.0-0.1); BASOPHILS % (AUTO) 1 % (0-10); EOSINOPHILS # (AUTO) 0.6 10^3/uL (0.0-0.3); EOSINOPHILS % (AUTO) 7 % (0-10); HEMATOCRIT 31 % (35-52); HEMOGLOBIN 9.1 g/dL (11.5-16.0); LYMPHOCYTES # (AUTO) 0.9 10^3/uL (1.0-4.0); LYMPHOCYTES % (AUTO) 11 % (12-44); MEAN CORPUSCULAR HEMOGLOBIN 32 pg (25-34); MEAN CORPUSCULAR HGB CONC 30 g/dL (32-36); MEAN CORPUSCULAR VOLUME 107 fL (80-99); MEAN PLATELET VOLUME 9.7 fL (9.0-12.2); MONOCYTES # (AUTO) 0.5 10^3/uL (0.0-1.0); MONOCYTES % (AUTO) 6 % (0-12); NEUTROPHILS # (AUTO) 6.5 10^3/uL (1.8-7.8); NEUTROPHILS % (AUTO) 76 % (42-75); PLATELET COUNT 193 10^3/uL (130-400); WHITE BLOOD COUNT 8.6 10^3/uL (4.3-11.0)
[2022-01-14 04:47] LABS: ALBUMIN 3.2 GM/DL (3.2-4.5); BILIRUBIN,TOTAL 0.3 MG/DL (0.1-1.0); CALCIUM 8.5 MG/DL (8.5-10.1); CREATININE SERUM 1.5 MG/DL (0.60-1.30); POTASSIUM 4.2 MMOL/L (3.6-5.0); TOTAL PROTEIN 6.6 GM/DL (6.4-8.2)
[2022-01-14] MEDS: inSUlin ASPART (NovoLOG) 1 UNIT/0.01 ML (CHARGE PER UNIT) SC SCH ×4 (04:52→20:53)
[2022-01-14] MEDS: LEVOTHYROXINE 125 MCG (LEVOTHROID) TABLET PO SCH (05:27)
[2022-01-14] MEDS: PANTOPRAZOLE 40 MG (PROTONIX) TAB PO SCH (05:27)
[2022-01-14 07:17] VITALS: BP 120/65
[2022-01-14] MEDS: RT-BUDESONIDE NEBS 0.5 MG/2ML (PULMICORT) AMP IH SCH ×3 (07:18→21:56)
[2022-01-14] MEDS: RT-ALBUTEROL SULF 2.5 MG/3 ML PRE-MIX VIAL INH SCH ×3 (07:21→21:57)
[2022-01-14] MEDS: ASCORBIC ACID (VIT C) 500 MG TABLET PO SCH (08:13)
[2022-01-14] MEDS: ASPIRIN E.C. 81 MG (ECOTRIN) TAB PO SCH (08:14)
[2022-01-14] MEDS: VITAMIN D3 125 MCG (5,000 UNITS) CAPSULE PO SCH (08:14)
[2022-01-14] MEDS: DOCUSATE SODIUM 100 MG (COLACE) CAP PO SCH ×2 (08:14→21:03)
[2022-01-14] MEDS: busPIRone 5 MG (BUSPAR) TAB PO SCH ×2 (08:14→21:03)
[2022-01-14] MEDS: VENlafaxine XR 75 MG (EFFEXOR XR) CAP PO SCH (08:14)
[2022-01-14] MEDS: SENNOSIDES 8.6 MG (SENOKOT) TAB PO SCH ×2 (08:14→21:03)
[2022-01-14] MEDS: ZINC SULFATE 220 MG CAPSULE PO SCH (08:14)
[2022-01-14] MEDS: KCL 10 MEQ TAB (MICRO K) PO SCH (08:14)
[2022-01-14] MEDS: GABAPENTIN 300 MG (NEURONTIN) CAP PO SCH ×4 (08:14→21:03)
[2022-01-14] MEDS: inSUlin ASPART (NovoLOG) 1 UNIT/0.01 ML (CHARGE PER UNIT) SQ SCH (08:16)
[2022-01-14] MEDS: BUMETANIDE 1 MG/4 ML (BUMEX) VIAL IV SCH ×2 (08:16→21:02)
--- NOTE | 2022-01-14 09:09 | Cardiology Progress Note ---
Progress Note-Cardiology Events since last exam Date Seen by Provider: Jan 14, 2022 Time Seen by Provider: 09:08 Events since last exam I am following her due to heart failure. Her breathing and peripheral edema have improved but are not quite back to baseline. She denies chest discomfort, palpitations, or syncope. She is hoping that she can go to our inpatient rehabilitation facility for a short time to gain some strength before she goes home. Certain portions of this document may have been dictated utilizing voice recognition technology. Inherent to this technology, typographical and grammatical errors may exist. As much as I am diligent to identify and correct these mistakes, some errors may remain in the document. Vitals Last set of Vitals Signs Vital Signs 01/14/22 01/14/22 01/14/22 07:17 07:25 08:00 Temp 36.9 Pulse 85 Resp 18 B/P (MAP) 120/65 (83) Pulse Ox 98 O2 Delivery Nasal Cannula O2 Flow Rate 4.00 Labs Labs Laboratory Tests 01/13/22 12:50 01/14/22 04:19 Exam Vital Signs Vital Signs Date Time Temp Pulse Resp B/P (MAP) Pulse Ox O2 Delivery O2 Flow Rate FiO2 01/14/22 08:00 Nasal Cannula 4.00 01/14/22 07:25 98 01/14/22 07:17 36.9 85 18 120/65 (83) Physical Exam General: Alert. No acute distress. She is obese. Eye: No xanthelasma. HENT: Normocephalic. Neck: Jugular venous pressure does not appear elevated. Respiratory: Lungs are clear to auscultation. Respirations are non-labored. Breath sounds are equal. Symmetrical chest wall expansion. Cardiovascular: Normal rate. Regular rhythm. Distant S1/S2. No murmur. No gallop. 1+ bilateral pretibial edema that extends up into her thigh. Gastrointestinal: Soft. Normal bowel sounds. Skin: Warm. Dry. She has ecchymoses in the left and right lower quadrants, slightly worse on the left. Neurologic: Alert and oriented to person, place, time. Cranial nerves 3-11 grossly intact. Psychiatric: Cooperative. Appropriate mood & affect. Labs Laboratory Tests Test 01/13/22 12:50 01/13/22 16:50 01/13/22 20:12 01/14/22 04:19 Range/Units White Blood Count 9.2 8.6 4.3-11.0 10^3/uL Red Blood Count 2.89 L 2.85 L 3.80-5.11 10^6/uL Hemoglobin 9.3 L 9.1 L 11.5-16.0 g/dL Hematocrit 31 L 31 L 35-52 % Mean Corpuscular Volume 107 H 107 H 80-99 fL Mean Corpuscular Hemoglobin 32 32 25-34 pg Mean Corpuscular Hemoglobin Concent 30 L 30 L 32-36 g/dL Red Cell Distribution Width 13.1 13.1 10.0-14.5 % Platelet Count 201 193 130-400 10^3/uL Mean Platelet Volume 9.7 9.7 9.0-12.2 fL Immature Granulocyte % (Auto) 0 0 % Neutrophils (%) (Auto) 83 H 76 H 42-75 % Lymphocytes (%) (Auto) 8 L 11 L 12-44 % Monocytes (%) (Auto) 5 6 0-12 % Eosinophils (%) (Auto) 3 7 0-10 % Basophils (%) (Auto) 1 1 0-10 % Neutrophils # (Auto) 7.7 6.5 1.8-7.8 10^3/uL Lymphocytes # (Auto) 0.8 L 0.9 L 1.0-4.0 10^3/uL Monocytes # (Auto) 0.4 0.5 0.0-1.0 10^3/uL Eosinophils # (Auto) 0.3 0.6 H 0.0-0.3 10^3/uL Basophils # (Auto) 0.1 0.1 0.0-0.1 10^3/uL Immature Granulocyte # (Auto) 0.0 0.0 0.0-0.1 10^3/uL Sodium Level 139 144 135-145 MMOL/L Potassium Level 4.7 4.2 3.6-5.0 MMOL/L Chloride Level 99 100 98-107 MMOL/L Carbon Dioxide Level 29 32 21-32 MMOL/L Anion Gap 11 12 5-14 MMOL/L Blood Urea Nitrogen 37 H 37 H 7-18 MG/DL Creatinine 1.49 H 1.50 H 0.60-1.30 MG/DL Estimat Glomerular Filtration Rate 38 38 BUN/Creatinine Ratio 25 25 Glucose Level 193 H 87 70-105 MG/DL Calcium Level 8.5 8.5 8.5-10.1 MG/DL Corrected Calcium 9.1 9.1 8.5-10.1 MG/DL Total Bilirubin 0.3 0.3 0.1-1.0 MG/DL Aspartate Amino Transf (AST/SGOT) 27 22 5-34 U/L Alanine Aminotransferase (ALT/SGPT) 37 28 0-55 U/L Alkaline Phosphatase 122 115 40-136 U/L Troponin I < 0.028 <0.028 NG/ML B-Type Natriuretic Peptide 1547.6 H <100.0 PG/ML Total Protein 6.8 6.6 6.4-8.2 GM/DL Albumin 3.3 3.2 3.2-4.5 GM/DL Glucometer 97 117 H 70-110 MG/DL Test 01/14/22 11:04 Range/Units Glucometer 140 H 70-110 MG/DL Diagnosis/Problems Diagnosis/Problems (1) Acute on chronic heart failure with preserved ejection fraction (HFpEF) Status: Acute Assessment & Plan: Her BNP was slightly higher than 2 weeks ago and her chest x-ray again shows pulmonary edema. Despite taking extra doses of furosemide at home, she has worsening congestion. She is now receiving intravenous bumetanide. She may be having poor absorption of the furosemide due to some bowel edema. When she is ready to transition back to oral diuretic, we may want to place her on oral bumetanide or torsemide which absorb better when patients have abdominal visceral edema. (2) Mitral stenosis Status: Chronic Assessment & Plan: She has mild to moderate mitral stenosis noted on her previous echocardiogram. I do not think this is at the point that this needs intervention but this will need to be followed longitudinally. (3) Pulmonary hypertension Status: Chronic Assessment & Plan: This is most likely multifactorial. The patient may benefit from home oxygen if she is not already using this. She does also follow with a animal shelter supervisor at [place]. (4) Primary hypertension Status: Chronic Assessment & Plan: Continue outpatient antihypertensive medication. (5) Mixed hyperlipidemia Status: Chronic Assessment & Plan: Continue statin medication. (6) Acute on chronic respiratory failure with hypoxemia Status: Acute Assessment & Plan: Most likely multifactorial due to underlying pulmonary disease as well as the decompensated heart failure. (7) Stage 3a chronic kidney disease Status: Chronic Assessment & Plan: We will need to watch this closely with the intravenous diuretic. Her creatinine has been reasonably stable over the first 24 hours of intravenous diuretic. She will be seeing a manager digital as an outpatient in the near future. (8) Type 2 diabetes mellitus with complication Status: Chronic Assessment & Plan: This is being managed by the hospitalist. (9) Morbid obesity Status: Chronic Assessment & Plan: She has been counseled about weight loss and health implications of obesity. (10) Superficial bruising of abdominal wall Assessment & Plan: I had her undergo an abdominal wall ultrasound which did not show any fluid collection. This may just be ecchymoses from receivin prophylactic dosing of enoxaparin during her recent hospitalization. I would suggest using venous compression devices for prophylaxis of deep venous thrombosis as opposed to restarting enoxaparin. JEANMARIE GRIFFITH JR, MD Jan 14, 2022 09:09
--- NOTE | 2022-01-14 09:16 | Occupational Therapy Eval ---
OT Evaluation-General/PLF Medical Diagnosis Admission Date Jan 13, 2022 at 14:20 Medical Diagnosis: CHF exacerbation Onset Date: Jan 13, 2022 Therapy Diagnosis Therapy Diagnosis: decreased ADL status Height/Weight Height (Feet): 5 Height (Inches): 4.00 Weight (Pounds): 246 Weight (Ounces): 6.0 Precautions Precautions/Isolations: Fall Prevention, Standard Precautions Referral Physician: Maxwell Referral Reason: Evaluation/Treatment Medical History Pertinent Medical History: CAD, COPD, DM, GERD, HTN, Neuropathy Additional Medical History CHF, COPD, DM, CKD stage 3, hyperlipidemia, HTN, CAD, anxiety/depression Current History admit with CHF exacerbation. recently discharged from hospital (01/06/22) after acute volume overload Social History Home: Single Level Current Living Status: Alone Entry Into Home: Stairs With Railing Steps Into Home: 2 ADL-Prior Level of Function SCALE: Activities may be completed with or without assistive devices. 1-Zllxnotlmi-daemrra completes the activity by him/herself with no assistance from a helper. 5-Set-up or Clean-up Assistance-helper sets up or cleans up; patient completes activity. [place] assists only prior to or following the activity. 4-Supervision or Touching Assistance-helper provides verbal cues and/or touchi ng/steadying and/or contact guard assistance as patient completes activity. Assistance may be provided throughout the activity or intermittently. 3-Partial/Moderate Assistance-helper does LESS THAN HALF the effort. [place] lifts, holds or supports trunk or limbs, but provides less than half the effort. 2-Substantial/Maximal Assistance-helper does MORE THAN HALF the effort. [place] lifts or holds trunk or limbs and provides more than half the effort. 4-Jqaemqdrz-jizpwt does ALL the effort. Patient does none of the effort to complete the activity. Or, the assistance of 2 or more helpers is required for the patient to complete the activity. If activity was not attempted, code reason: 7-Patient Refused. 9-Not Applicable-not attempted and the patient did not perform the activity before the current illness, exacerbation or injury. 10-Not Attempted due to Environmental Limitations-(lack of equipment, weather restraints, etc.). 88-Not Attempted due to Medical Conditions or Safety Concerns. ADL PLOF Comments Pt states she uses a quad cane inside the house and w/c outside of the house at PLOF. She typically completes ADLs independently, but she does have a friend come over to assist with groceries, sponge bath and other tasks as needed. She only completes sponge baths due to SOB with activity. She has AE for LE dressing/footwear. Self Care: Needed Some Help Functional Cognition: Independent DME/Equipment: Bath Bench, Sock Aid, Tub/Shower OT Current Status Subjective Pt in bed, agreeable to OT tx. Pt expresses anxiety around her current situation Mental Status/Objective Patient Orientation: Person, Place, Situation Attachments: Oxygen Current Upper Extremity ROM WFL Upper Extremity Strength grossly 3+/5 ADL-Treatment Eating (QC): 6 (per pt report) Oral Hygiene (QC): 5 (per clincial judgment.) Upper Body Dressing (QC): 5 Lower Body Dressing (QC): 4 (SBA ) On/Off Footwear (QC): 1 (total assist without AE. Pt uses AE at home.) Other Treatments Pt in bed, transferred supine to sit EOB, SBA, min A to scoot towards EOB. Pt stood from EOB, min A, then CGA transfer to recliner using FWW. Pt donned pants with SBA (SBA sit to/from stand from recliner), and donned shirt with set up. Post tx, pt in recliner, call light in reach and all needs met. Next OT tx, pt would benefit from long handled sponge for LE bathing, and bringing sock aide/paper core machine operator into pt's room in order for pt to demo her ability footwear with the tools she has at home. If pt is able to demonstrate ability to complete footwear using AE, and LE dressing with sponge, pt would be at [facility]. Education OT Patient Education: Correct positioning, Energy conservation, Modified ADL techniques, Progress toward Goal/Update tx plan, Purpose of tx/functional activities, Rehab process Teaching Recipient: Patient Teaching Methods: Discussion Response to Teaching: Verbalize Understanding OT Retirement Goals Crisis Clinician Goals Time Frame: Jan 24, 2022 Toileting Hygiene (QC): 6 Shower/Bathe Self (QC): 4 Lower Body Dressing (QC): 5 On/Off Footwear (QC): 5 Additional Goals: 1-Demonstrate ADL Tasks, 2-Verbalize Understanding, 3- ImproveStrength/Lola 1=Demonstrate adherence to instructed precautions during ADL tasks. 2=Patient will verbalize/demonstrate understanding of assistive devices/modifications for ADL. 3=Patient will improve strength/tolerance for activity to enable patient to perform ADL's. OT Education/Plan Problem List/Assessment Assessment: Decreased Activ Tolerance, Decreased UE Strength, Impaired Funct Balance, Impaired I ADL's Pt would benefit from short term skilled OT services in order to increase independence with ADLs and functional mobility and education on AE with ADLs (sock aide, long handled sponge, etc) in order to maximize LOF for safe return home. Discharge Recommendations Plan/Recommendations: Continue POC Treatment Plan/Plan of Care Patient would benefit from OT for education, treatment and training to promote independence in ADL's, mobility, safety and/or upper extremity function for ADL's. Plan of Care: ADL Retraining, Functional Mobility, UE Funct Exercise/Act Treatment Duration: Jan 24, 2022 Frequency: 3 times per week (3-5 times per week) Estimated Hrs Per Day: .25 hour per day Agreement: Yes Rehab Potential: Good Time Start Time: 08:28 Stop Time: 08:47 DATE: Jan 14, 2022 Total Time Billed (hr/min): 19 Billed Treatment Time 1, SABRINA COOK OT Jan 14, 2022 09:15
[2022-01-14] MEDS: SILDENAFIL 20 MG (REVATIO) TAB PO SCH ×3 (09:24→21:03)
--- NOTE | 2022-01-14 09:59 | Physical Therapy Evaluation ---
PT Evaluation-General Medical Diagnosis Admission Date Jan 13, 2022 at 14:20 Medical Diagnosis: CHF exacerbation Onset Date: Jan 13, 2022 Therapy Diagnosis Therapy Diagnosis: Debility/ Impaired Mobility. Height/Weight Height (Feet): 5 Height (Inches): 4.00 Weight (Pounds): 246 Weight (Ounces): 6.0 Precautions Precautions/Isolations: Fall Prevention, Standard Precautions Weight Bear Status Right Lower Extremity: Right Weight Bearing/Tolerated Left Lower Extremity: Left Weight Bearing/Tolerated Referral Physician: Deya Arreola DO Reason for Referral: Evaluation/Treatment Medical History Pertinent Medical History: CAD, COPD, DM, GERD, HTN, Neuropathy Additional Medical History Surgery/Hospitalization HX: CHF, CKD, COPD, DM 2, HTN Surgeries: Yes (FOOT, bilat CTR, carotid endartectomy, bilat TKR) Appendectomy, Gallbladder, Orthopedic, Thyroidectomy Respiratory: Yes (CPAP - 4L NC O2, DAYTIME O2 4L) Pneumonia, Sleep Apnea Currently Using CPAP: No Currently Using BIPAP: No Cardiac: Yes (STENT; CAROTID ENDARTERECTOMY, CHF, MITRAL STENOSIS,PULMONARY HTN) Cardiomyopathy, Chronic Edema/Swelling, Coronary Artery Disease, High Cholesterol, Hypertension Neurological: Yes Neuropathy 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 Disorders: No Female 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 Disorders: Denies 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 Sexually Transmitted Disease: No HIV/AIDS: No Genitourinary: Yes UTI-Chronic Gastrointestinal: Yes Colitis, Gastroesophageal Reflux, Chronic Constipation, Hemorrhoids, Gall Bladder Disease Musculoskeletal: Yes (ARTHRITIS, spinal stenosis) Degenerate Disk Disease, Arthritis Endocrine: Yes Diabetes, Insulin dep, Hypothyroidsim HEENT: Yes (nosebleeds) Loss of Vision: Denies Hearing Impairment: Denies Cancer: No Psychosocial: Yes Anxiety, Depression Integumentary: Yes (RASH) Blood Disorders: Yes (ANEMIA) Adverse Reaction/Blood Tranf: No Reviewed History: Yes Social History Home: Single Level Current Living Status: Alone (son lives next door) Entry Into Home: Stairs With Railing PT Steps Into Home: 3 Prior Prior Level of Function SCALE: Activities may be completed with or without assistive devices. 5-Wakhsitwin-ytpkelt completes the activity by him/herself with no assistance from a helper. 5-Set-up or Clean-up Assistance-helper sets up or cleans up; patient completes activity. [place] assists only prior to or following the activity. 4-Supervision or Touching Assistance-helper provides verbal cues and/or touching/steadying and/or contact guard assistance as patient completes activity. Assistance may be provided throughout the activity or intermittently. 3-Partial/Moderate Assistance-helper does LESS THAN HALF the effort. [place] lifts, holds or supports trunk or limbs, but provides less than half the effort. 2-Substantial/Maximal Assistance-helper does MORE THAN HALF the effort. [place] lifts or holds trunk or limbs and provides more than half the effort. 0-Oatbmqrwx-wjlbob does ALL the effort. Patient does none of the effort to complete the activity. Or, the assistance of 2 or more helpers is required for the patient to complete the activity. If activity was not attempted, code reason: 7-Patient Refused. 9-Not Applicable-not attempted and the patient did not perform the activity before the current illness, exacerbation or injury. 10-Not Attempted due to Environmental Limitations-(lack of equipment, weather restraints, etc.). 88-Not Attempted due to Medical Conditions or Safety Concerns. Bed Mobility: 6 Transfers (B,C,W/C): 6 Gait: 6 Stairs: 6 Wheelchair Mobility: 6 Indoor Mobility (Ambulation): Independent Stairs: Independent Prior Devices Use: Manual wheelchair, Other-see list below Prior Device Use: Quad Cane in home ambulation, W/C for community mobility PT Evaluation-Current Subjective Patient in recliner pre-tx with family in room, reports pain 5/10 in kidney area, agrees to PT. Pt/Family Goals Return to independence at home. Objective Patient Orientation: Person, Place, Situation Attachments: Oxygen, Bran Catheter, IV ROM/Strength ROM Lower Extremities WFL Strength Lower Extremities RLE (hip flexion 4+/5, knee extension 5/5, knee flexion 4+/5, DF 5/5), LLE (hip flexion 4+/5, knee extension 5/5, knee flexion 4+/5, DF 5/5) Neuromuscular (Tone, Coordination, Reflexes) Coordination intact Sensory Vision: Functional Hearing: Functional Sensation Right Lower Extremit: Impaired (slightly diminished due to swelling) Sensation Left Lower Extremity: Impaired (slightly diminished due to swelling) Transfers Sit to Stand (QC): 4 (SBA) Gait Does the Patient Walk?: Yes Mode of Locomotion: Both Anticipated Mode of Locomotion: Both Walk 10 feet (QC): 4 Walk 50 ft with 2 Turns(QC): 4 Walk 150 ft (QC): 4 Distance: 200' Gait Assistive Device: FWW Comments/Gait Description CGA, Patient walks with top heavy forward posture, decreased foot clearance, and decreased step length. Balance Sitting Static: Normal Sitting Dynamic: Normal Standing Static: Normal Standing Dynamic: Normal Treatment Ambulation, LE Strengthening ( AP x20, LAQ x20, Hip Flexion x20) Assessment/Needs Patient fatigues quickly due to decreased endurance and swelling in LE, CHF, and decreased oxygen. Patient requires several breaks to catch breath during activity and was shown pursed lip breathing to recover. Patient in recliner post-tx with family in room, nurse call, phone, tray, all needs met. Rehab Potential: Fair PT [facility] Goals Mail Service Coordinator Goals PT Mail Service Coordinator Goals Time Frame: Jan 21, 2022 Roll Left & Right (QC): 6 Sit to Lying (QC): 6 Lying-Sitting on Side/Bed(QC): 6 Sit to Stand (QC): 6 Chair/Fmo-un-Cjkoj Xfer(QC): 6 Toilet Transfer (QC): 6 Does the Patient Walk: Yes Walk 10 feet (QC): 6 Walk 50ft with 2 Turns (QC): 6 Walk 150 ft (QC): 6 PT Plan Problem List Problem List: Activity Tolerance, Functional Strength, Safety, Balance, Gait, Transfer, Bed Mobility, ROM Treatment/Plan Treatment Plan: Continue Plan of Care Treatment Plan: Bed Mobility, Education, Functional Activity Lola, Functional Strength, Gait, Safety, Therapeutic Exercise, Transfers Treatment Duration: Jan 21, 2022 Frequency: 6 times per week Estimated Hrs Per Day: .25 hour per day Patient and/or Family Agrees t: Yes Safety Risks/Education Patient Education: Gait Training, Transfer Techniques, Correct Positioning, Safety Issues Teaching Recipient: Patient Teaching Methods: Demonstration, Discussion Response to Teaching: Reinforcement Needed Discharge Recommendations Plan Patient will perform bed mobility and transfer training, endurance and balance training, gait and functional strengthening in order to be more independent at home. Therapy Discharge Recommendati: Home & Family Time Time In: 922 Time Out: 940 DATE: Jan 14, 2022 Total Billed Treatment Time: 18 Total Billed Treatment 1 visit EVDamon 18min BRENT MORRIS PT Jan 14, 2022 09:59
--- NOTE | 2022-01-14 10:56 | Diagnostic Imaging Report ---
PROCEDURE: US Abdomen, limited. TECHNIQUE: Multiple realtime grayscale images were obtained over the abdomen in various projections. INDICATION: Bruising, abdominal wall hematoma. COMPARISON: None available. FINDINGS: No focal fluid collection or suspicious solid mass lesion. In particular, no focal abnormality within the area of interest within the right and left abdominal wall. IMPRESSION: Unremarkable examination. No significant focal fluid collection or solid mass lesion. Dictated by: Dictated on workstation # [id number]
--- NOTE | 2022-01-14 10:59 | Progress Note ---
LROIN PFEIFFER 01/14/22 1058: Subjective Date Seen by a Provider: Jan 14, 2022 Time Seen by a Provider: 07:45 Subjective/Events-last exam Patient is a 66 year old woman admitted for CHF exacerbation. She states that she is feeling rough this morning but that her breathing is slightly improved. S he notes continued SOB on exertion, left-sided abdominal pain, minor headache, and bilateral flank pain. She denies nausea, vomiting, constipation, diarrhea, lightheadedness, chest pain, chills or any other symptoms. She is highly anxious on interview and worries about her prognosis and treatment course. While in the room, Dr. Bailey discussed treatment goals and outlook with the patient as well as a possibility of hospice care on hospital discharge. The patient and her family were receptive to this suggestion and understand that it would help her to receive quality care at home with much fewer hospital visits. The patient now wishes to resume DNR status. Review of Systems General: No Chills HEENT: Head Aches; No Visual Changes Pulmonary: Dyspnea; No Cough, No Pleuritic Chest Pain Cardiovascular: Edema; No: Chest Pain, Palpitations Gastrointestinal: Abdominal Pain; No: Nausea, Vomiting, Diarrhea, Constipation Genitourinary: No Dysuria; Frequency; No Incontinence, No Hematuria, No Retention Musculoskeletal: back pain (Bilateral flank pain) Neurological: No: Weakness, Numbness, Change in speech, Confusion Focused Exam Sepsis Stage: Ruled Out Reason for ruling out sepsis: Patient does not meet SIRS criteria necessary for sepsis diagnosis Objective Exam Last Set of Vital Signs Vital Signs Date Time Temp Pulse Resp B/P (MAP) Pulse Ox O2 Delivery O2 Flow Rate FiO2 01/14/22 08:00 Nasal Cannula 4.00 01/14/22 07:25 98 01/14/22 07:17 36.9 85 18 120/65 (83) Capillary Refill : I&O Intake and Output 01/14/22 00:00 Intake Total 650 ml Output Total 1450 ml Balance -800 ml Intake Oral 650 ml Output Urine Total 1450 ml Daily Weight Change No General: Alert, Oriented X3, Cooperative, Mild Distress HEENT: Atraumatic Neck: Supple, No JVD, No Thyromegaly, +2 Carotid Pulse No Bruit Lungs: Clear to Auscultation, Normal Air Movement, Other (Somewhat decreased breath sounds bilaterally) Heart: Regular Rate, Normal S1, Normal S2, No Murmurs Abdomen: Normal Bowel Sounds, Soft, No Hepatosplenomegaly, Other (Tenderness to palpation in both LLQ and LUQ) Extremities: No Clubbing, No Cyanosis, Other (Tenderness in the right foot due to swelling. Bilateral pre-tibial swelling 1+) Skin: No Rashes, No Breakdown, Other (Large discontinuous, superficial hematoma noted on the abdomen) Neuro: Normal Speech, Normal Tone, Sensation Intact Psych/Mental Status: Mental Status NL, Other (Patient is highly anxious and worries about her health and outlook) Other physical findings Bilateral CVA tenderness on light palpation Results Lab Laboratory Tests 01/13/22 12:50: White Blood Count 9.2, Red Blood Count 2.89L, Hemoglobin 9.3L, Hematocrit 31L, Mean Corpuscular Volume 107H, Mean Corpuscular Hemoglobin 32, Mean Corpuscular Hemoglobin Concent 30L, Red Cell Distribution Width 13.1, Platelet Count 201, Me an Platelet Volume 9.7, Immature Granulocyte % (Auto) 0, Neutrophils (%) (Auto) 83H, Lymphocytes (%) (Auto) 8L, Monocytes (%) (Auto) 5, Eosinophils (%) (Auto) 3, Basophils (%) (Auto) 1, Neutrophils # (Auto) 7.7, Lymphocytes # (Auto) 0.8L, Monocytes # (Auto) 0.4, Eosinophils # (Auto) 0.3, Basophils # (Auto) 0.1, Immature Granulocyte # (Auto) 0.0, Sodium Level 139, Potassium Level 4.7, Chloride Level 99, Carbon Dioxide Level 29, Anion Gap 11, Blood Urea Nitrogen 37H, Creatinine 1.49H, Estimat Glomerular Filtration Rate 38, BUN/Creatinine Ratio 25, Glucose Level 193H, Calcium Level 8.5, Corrected Calcium 9.1, Total Bilirubin 0.3, Aspartate Amino Transf (AST/SGOT) 27, Alanine Aminotransferase (ALT/SGPT) 37, Alkaline Phosphatase 122, Troponin I < 0.028, B-Type Natriuretic Peptide 1547.6H, Total Protein 6.8, Albumin 3.3 01/13/22 16:50: Glucometer 97 01/13/22 20:12: Glucometer 117H 01/14/22 04:19: White Blood Count 8.6, Red Blood Count 2.85L, Hemoglobin 9.1L, Hematocrit 31L, Mean Corpuscular Volume 107H, Mean Corpuscular Hemoglobin 32, Mean Corpuscular Hemoglobin Concent 30L, Red Cell Distribution Width 13.1, Platelet Count 193, Mean Platelet Volume 9.7, Immature Granulocyte % (Auto) 0, Neutrophils (%) (Auto) 76H, Lymphocytes (%) (Auto) 11L, Monocytes (%) (Auto) 6, Eosinophils (%) (Auto) 7, Basophils (%) (Auto) 1, Neutrophils # (Auto) 6.5, Lymphocytes # (Auto) 0.9L, Monocytes # (Auto) 0.5, Eosinophils # (Auto) 0.6H, Basophils # (Auto) 0.1, Immature Granulocyte # (Auto) 0.0, Sodium Level 144, Potassium Level 4.2, Chloride Level 100, Carbon Dioxide Level 32, Anion Gap 12, Blood Urea Nitrogen 37H, Creatinine 1.50H, Estimat Glomerular Filtration Rate 38, BUN/Creatinine Ratio 25, Glucose Level 87, Calcium Level 8.5, Corrected Calcium 9.1, Total Bilirubin 0.3, Aspartate Amino Transf (AST/SGOT) 22, Alanine Aminotransferase (ALT/SGPT) 28, Alkaline Phosphatase 115, Total Protein 6.6, Albumin 3.2 Meds Home Medication List Reviewed: Yes Acetaminophen (Tylenol Extra Strength) 500 Mg Tablet, 1,000 MG PO BID PRN for PAIN-MILD, (Reported) Entered as Reported by: MOODY FRANCO on 11/02/17 1632 Albuterol Sulfate (Ventolin Hfa) 90 Mcg Hfa.aer.ad, 2 PUFF INH Q6H PRN for SHORTNESS OF BREATH, (Reported) Entered as Reported by: TROY HAQUE on 01/03/22 1127 Alprazolam (Alprazolam) 0.5 Mg Tablet, 0.5 MG PO BID PRN for ANXIETY, (Reported) Entered as Reported by: TROY HAQUE on 01/03/22 1127 Ascorbate Calcium (Vitamin C) 500 Mg Tablet, 500 MG PO DAILY, (Reported) Entered as Reported by: TEJA PORTILLO on 08/12/21 1323 Aspirin (Aspirin EC) 81 Mg Tablet.dr, 81 MG PO DAILY, (Reported) Entered as Reported by: MOODY FRANCO on 11/02/17 1632 Budesonide (Budesonide) 0.5 Mg/2 Ml Ampul.neb, 0.5 MG IH BID, (Reported) Entered as Reported by: TEJA PORTILLO on 08/12/21 1503 Buspirone HCl (Buspirone HCl) 5 Mg Tablet, 5 MG PO BID, (Reported) Entered as Reported by: TROY HAQUE on 01/03/22 1127 Cholecalciferol (Vitamin D3) (Vitamin D3) 125 Mcg (5000 Unit) Tablet, 125 MCG PO DAILY, (Reported) Entered as Reported by: TEJA PORTILLO on 08/12/21 1324 Formoterol Fumarate (Perforomist) 20 Mcg/2 Ml Vial.neb, 20 MCG IH BID, (Reported) Entered as Reported by: TEJA PORTILLO on 08/12/21 1503 Furosemide (Furosemide) 40 Mg Tablet, 40 MG PO DAILY@0700,1200 Prescribed by: DEYA BAILEY on 01/06/22 1002 Gabapentin (Neurontin) 300 Mg Capsule, 300 MG PO QID, (Reported) Entered as Reported by: TEJA PORTILLO on 08/12/21 1320 Insulin Aspart (Insulin Aspart Flexpen) 100 Unit/Ml (3 Ml) Insuln.pen, 6 UNIT SQ DAILY, (Reported) Entered as Reported by: Linh Cat on 08/11/21 1009 Insulin Degludec (Tresiba Flextouch U-200) 200 Unit/Ml (3 Ml) Insuln.pen, 30 UNITS SC BID, (Reported) Entered as Reported by: MOODY FRANCO on 11/02/17 1632 Levothyroxine Sodium (Levothyroxine Sodium) 125 Mcg Tablet, 125 MCG PO DAILY, (Reported) Entered as Reported by: ALHAJI HORTA on 09/13/19 0833 Losartan Potassium (Losartan Potassium) 50 Mg Tablet, 50 MG PO DAILY, (Reported) Entered as Reported by: MOODY FRANCO on 11/02/17 1632 Melatonin (Melatonin) 3 Mg Tablet, 3 MG PO HS, (Reported) Entered as Reported by: TROY HAQUE on 01/03/22 1127 Metoprolol Succinate (Metoprolol Succinate) 25 Mg Tab.er.24h, 25 MG PO DAILY, (Reported) Entered as Reported by: MOODY FRANCO on 11/02/17 1632 Montelukast Sodium (Montelukast Sodium) 10 Mg Tablet, 10 MG PO HS, (Reported) Entered as Reported by: TROY HAQUE on 06/20/20 1407 Pantoprazole Sodium (Pantoprazole Sodium) 40 Mg Tablet.dr, 40 MG PO DAILY, (Reported) Entered as Reported by: ALHAJI HORTA on 09/13/19 0833 Potassium Chloride (Potassium Chloride) 10 Meq Tab.er.prt, 10 MEQ PO DAILY, (R eported) Entered as Reported by: TROY HAQUE on 06/20/20 1407 Promethazine HCl (Promethazine Tablet) 25 Mg Tablet, 25 MG PO Q6H PRN for NAUSEA/VOMITING-2ND LINE, (Reported) Entered as Reported by: TROY HAQUE on 12/03/21 1230 Revefenacin (Yupelri) 175 Mcg/3 Ml Vial.neb, 175 MCG IH 1200, (Reported) Entered as Reported by: TEJA PORTILLO on 08/12/21 1504 Sildenafil Citrate (Sildenafil) 20 Mg Tablet, 20 MG PO TID, (Reported) Entered as Reported by: Linh Cat on 08/11/21 1009 Simvastatin (Simvastatin) 10 Mg Tablet, 10 MG PO HS, (Reported) Entered as Reported by: Linh Cat on 08/11/21 1009 Trazodone HCl (Trazodone HCl) 50 Mg Tablet, 150 MG PO HS, (Reported) Entered as Reported by: TROY HAQUE on 01/03/22 1127 Venlafaxine HCl (Venlafaxine HCl ER) 150 Mg Cap.er.24h, 150 MG PO DAILY, (Reported) Entered as Reported by: TEJA PORTILLO on 08/12/21 1217 Zinc Amino Acid Chelate (Zinc) 50 Mg Tablet, 50 MG PO DAILY, (Reported) Entered as Reported by: TEJA PORTILLO on 08/12/21 1323 Discontinued Medications Furosemide (Furosemide) 40 Mg Tablet, 40 MG PO DAILY, (Reported) Entered as Reported by: TROY HAQUE on 01/03/22 1127 Furosemide (Furosemide) 40 Mg Tablet, 40 MG PO 1400 PRN for EXCESS FLUID, (Reported) Entered as Reported by: TROY HAQUE on 01/03/22 1127 Patient placed on bumetanide for attainment of greater diuresis. Oral bumetanide or torsemide recommended by Dr. Quinones once transition to oral meds is deemed appropriate Radiology Date of Exam:01/13/22 CHEST 1 VIEW, AP/PA ONLY INDICATION: Peripheral edema Portable chest 12:26 PM There is cardiomegaly with pulmonary vascular congestion. No appreciable effusion. Right IJ Port-A-Cath tip projects over the SVC. IMPRESSION: Congestive heart failure Dictated by: Dictated on workstation # [id number] Dict: 01/13/22 1243 Trans: 01/13/22 1358 [id number] [id number] Interpreted by: SHARLA HIGGINS MD Electronically signed by: SHARLA HIGGINS MD 01/13/22 1358 Date of Exam:01/14/22 US ABDOMEN LIMITED [id number] PROCEDURE: US Abdomen, limited. TECHNIQUE: Multiple realtime grayscale images were obtained over the abdomen in various projections. INDICATION: Bruising, abdominal wall hematoma. COMPARISON: None available. FINDINGS: No focal fluid collection or suspicious solid mass lesion. In particular, no focal abnormality within the area of interest within the right and left abdominal wall. IMPRESSION: Unremarkable examination. No significant focal fluid collection or solid mass lesion. Dictated on workstation # [id number] Dict: 01/14/22 1050 Trans: 01/14/22 1055 SA [id number] Interpreted by: EPIFANIO YANES MD Electronically signed by: -US report is not finalized at this time Assessment/Plan Assessment/Plan Assess & Plan/Chief Complaint CHF exacerbation - Given patient's failure to improve with furosemide up to 120 mg, bumetanide has been initiated to attain diuresis. Continue to monitor respiratory symptoms, fluid levels, and kidney function. Continue oxygen via [place]. Dr. Quinones was consulted for cardiological management. He does not recommend intervention in the case of her mitral stenosis at this time. He does recommend beginning oral bumetanide or torsemide once appropriate to transition to oral medications. COPD - albuterol sulfate, budesonide, revefenacin Anxiety - alprazolam, buspirone Depression - venlafaxine Mitral stenosis - Cardiology does not recommend intervention at this time Primary hypertension - losartan, metoprolol Hyperlipidemia - simvastatin Type II DM - insulin aspart, insulin degludec GERD - pantoprazole Hypothyroidism - levothyroxine Bilateral CVA tenderness - kidney function has remained stable since initial labs were taken. Continue monitoring and consider instituting pharmacological treatment if pain worsens Abdominal hematoma - possibly due to lovenox injections, will continue to mon itor for changes. Lovenox DCd Hospice care recommended upon discharge Clinical Quality Measures End of Life/Advance Care Plan: Advance Care discuss with: patient, family member (s) End of Life Care: Hospice Care (Home) Plan: initiate discussion Time spent on discussion(mins): 15 Admission Status Admission Dx CHF exacerbation AMI/AHF: Ejection Fraction %: 60 DVT/VTE Risk/Contraindication: VTE Addressed: Yes VTE Present on Admission: No DEYA BAILEY DO 01/15/22 0508: Objective Exam General: Alert, Oriented X3, Cooperative, No Acute Distress Lungs: Clear to Auscultation, Normal Air Movement Heart: Regular Rate, Normal S1, Normal S2, No Murmurs Psych/Mental Status: Mental Status NL, Mood NL Assessment/Plan Assessment/Plan Assess & Plan/Chief Complaint Hospice at dc Supportive care Supervisory-Addendum Brief Verification & Attestation Participated in pt care: history, MDM, physical Personally performed: exam, history, MDM, supervision of care Care discussed with: Medical Student Procedures: n/a Results interpretation: Verified all documentation Verification and Attestation of Medical Student E/M Service A medical student performed and documented this service in my presence. I reviewed and verified all information documented by the medical student and made modifications to such information, when appropriate. I personally performed the physical exam and medical decision making. Deya Bailey, Jan 15, 2022,05:06 LORIN PFEIFFER Jan 14, 2022 10:58 DEYA BAILEY DO Jan 15, 2022 05:08
[2022-01-14] MEDS ORDERED: REVEFENACIN 175 MCG IH SCH (12:00)
[2022-01-14 12:01] VITALS: BP 136/86
[2022-01-14 16:35] VITALS: BP 117/72
[2022-01-14 20:41] VITALS: BP 120/72
[2022-01-14] MEDS ORDERED: AtorvaSTATin TABLET 10 MG TABLET PO SCH (21:00)
[2022-01-14] MEDS: MELATONIN 3 MG TABLET PO SCH (21:03)
[2022-01-14] MEDS: MONTELUKAST 10 MG (SINGULAIR) TAB PO SCH (21:03)
[2022-01-14] MEDS: traZODone 50 MG (DESYREL) TAB PO SCH (21:03)
[2022-01-14 23:17] VITALS: BP 113/74
[2022-01-15 03:43] VITALS: BP 158/73
[2022-01-15] MEDS: inSUlin ASPART (NovoLOG) 1 UNIT/0.01 ML (CHARGE PER UNIT) SC SCH ×2 (05:33→11:52)
[2022-01-15] MEDS: LEVOTHYROXINE 125 MCG (LEVOTHROID) TABLET PO SCH (06:14)
[2022-01-15] MEDS: PANTOPRAZOLE 40 MG (PROTONIX) TAB PO SCH (06:14)
[2022-01-15 06:29] LABS: BASOPHILS # (AUTO) 0.1 10^3/uL (0.0-0.1); BASOPHILS % (AUTO) 1 % (0-10); EOSINOPHILS # (AUTO) 0.4 10^3/uL (0.0-0.3); EOSINOPHILS % (AUTO) 4 % (0-10); HEMATOCRIT 31 % (35-52); HEMOGLOBIN 9.3 g/dL (11.5-16.0); LYMPHOCYTES # (AUTO) 0.8 10^3/uL (1.0-4.0); LYMPHOCYTES % (AUTO) 9 % (12-44); MEAN CORPUSCULAR HEMOGLOBIN 32 pg (25-34); MEAN CORPUSCULAR HGB CONC 30 g/dL (32-36); MEAN CORPUSCULAR VOLUME 107 fL (80-99); MEAN PLATELET VOLUME 9.6 fL (9.0-12.2); MONOCYTES # (AUTO) 0.5 10^3/uL (0.0-1.0); MONOCYTES % (AUTO) 5 % (0-12); NEUTROPHILS % (AUTO) 81 % (42-75); PLATELET COUNT 206 10^3/uL (130-400); WHITE BLOOD COUNT 9.8 10^3/uL (4.3-11.0)
[2022-01-15 06:44] LABS: ALBUMIN 3.3 GM/DL (3.2-4.5); BILIRUBIN,TOTAL 0.3 MG/DL (0.1-1.0); CALCIUM 7.3 MG/DL (8.5-10.1); CREATININE SERUM 1.49 MG/DL (0.60-1.30); POTASSIUM 5.1 MMOL/L (3.6-5.0); TOTAL PROTEIN 6.7 GM/DL (6.4-8.2)
[2022-01-15 08:00] VITALS: BP 125/64
[2022-01-15] MEDS: RT-ALBUTEROL SULF 2.5 MG/3 ML PRE-MIX VIAL INH SCH (08:04)
[2022-01-15] MEDS: RT-BUDESONIDE NEBS 0.5 MG/2ML (PULMICORT) AMP IH SCH (08:04)
--- NOTE | 2022-01-15 08:13 | Cardiology Progress Note ---
Progress Note-Cardiology Events since last exam Date Seen by Provider: Jan 15, 2022 Time Seen by Provider: 08:11 Events since last exam I am following her due to heart failure. Her shortness of breath and peripheral edema continue to improve. She denies chest discomfort, palpitations, or syncope. She is still complaining of left flank pain. Certain portions of this document may have been dictated utilizing voice recognition technology. Inherent to this technology, typographical and grammatical errors may exist. As much as I am diligent to identify and correct these mistakes, some errors may remain in the document. Vitals Last set of Vitals Signs Vital Signs 01/15/22 01/15/22 03:43 08:06 Temp 36.3 Pulse 83 Resp 20 B/P (MAP) 158/73 (101) Pulse Ox 96 O2 Delivery Nasal Cannula O2 Flow Rate 4.00 Labs Labs Laboratory Tests 01/15/22 06:20 Exam Vital Signs Vital Signs Date Time Temp Pulse Resp B/P (MAP) Pulse Ox O2 Delivery O2 Flow Rate FiO2 01/15/22 08:06 96 Nasal Cannula 4.00 01/15/22 03:43 36.3 83 20 158/73 (101) Physical Exam General: Alert. No acute distress. She is obese. Eye: No xanthelasma. HENT: Normocephalic. Neck: Jugular venous pressure does not appear elevated. Respiratory: Lungs are clear to auscultation. Respirations are non-labored. Breath sounds are equal. Symmetrical chest wall expansion. Cardiovascular: Normal rate. Regular rhythm. Distant S1/S2. No murmur. No gallop. Trace bilateral pretibial edema. Gastrointestinal: Soft. Normal bowel sounds. Skin: Warm. Dry. Neurologic: Alert and oriented to person, place, time. Cranial nerves 3-11 grossly intact. Psychiatric: Cooperative. Appropriate mood & affect. Labs Laboratory Tests Test 01/14/22 11:04 01/14/22 16:53 01/14/22 19:48 01/15/22 05:29 Range/Units Glucometer 140 H 74 142 H 51 *L 70-110 MG/DL Test 01/15/22 06:18 01/15/22 06:20 Range/Units Glucometer 92 70-110 MG/DL White Blood Count 9.8 4.3-11.0 10^3/uL Red Blood Count 2.92 L 3.80-5.11 10^6/uL Hemoglobin 9.3 L 11.5-16.0 g/dL Hematocrit 31 L 35-52 % Mean Corpuscular Volume 107 H 80-99 fL Mean Corpuscular Hemoglobin 32 25-34 pg Mean Corpuscular Hemoglobin Concent 30 L 32-36 g/dL Red Cell Distribution Width 13.1 10.0-14.5 % Platelet Count 206 130-400 10^3/uL Mean Platelet Volume 9.6 9.0-12.2 fL Immature Granulocyte % (Auto) 0 % Neutrophils (%) (Auto) 81 H 42-75 % Lymphocytes (%) (Auto) 9 L 12-44 % Monocytes (%) (Auto) 5 0-12 % Eosinophils (%) (Auto) 4 0-10 % Basophils (%) (Auto) 1 0-10 % Neutrophils # (Auto) 8.0 H 1.8-7.8 10^3/uL Lymphocytes # (Auto) 0.8 L 1.0-4.0 10^3/uL Monocytes # (Auto) 0.5 0.0-1.0 10^3/uL Eosinophils # (Auto) 0.4 H 0.0-0.3 10^3/uL Basophils # (Auto) 0.1 0.0-0.1 10^3/uL Immature Granulocyte # (Auto) 0.0 0.0-0.1 10^3/uL Sodium Level 144 135-145 MMOL/L Potassium Level 5.1 H 3.6-5.0 MMOL/L Chloride Level 99 98-107 MMOL/L Carbon Dioxide Level 32 21-32 MMOL/L Anion Gap 13 5-14 MMOL/L Blood Urea Nitrogen 40 H 7-18 MG/DL Creatinine 1.49 H 0.60-1.30 MG/DL Estimat Glomerular Filtration Rate 38 BUN/Creatinine Ratio 27 Glucose Level 94 70-105 MG/DL Calcium Level 7.3 L 8.5-10.1 MG/DL Corrected Calcium 7.9 L 8.5-10.1 MG/DL Total Bilirubin 0.3 0.1-1.0 MG/DL Aspartate Amino Transf (AST/SGOT) 21 5-34 U/L Alanine Aminotransferase (ALT/SGPT) 25 0-55 U/L Alkaline Phosphatase 115 40-136 U/L Total Protein 6.7 6.4-8.2 GM/DL Albumin 3.3 3.2-4.5 GM/DL Diagnosis/Problems Diagnosis/Problems (1) Acute on chronic heart failure with preserved ejection fraction (HFpEF) Status: Acute Assessment & Plan: Her BNP was slightly higher than 2 weeks ago and her chest x-ray again showed pulmonary edema at the time of admission. Despite taking extra doses of furosemide at home, she has worsening congestion. She is now receiving intravenous bumetanide. She may be having poor absorption of the furosemide due to some bowel edema. When she is ready to transition back to o ral diuretic, we may want to place her on oral bumetanide or torsemide which absorb better when patients have abdominal visceral edema. I will obtain a follow-up chest x-ray today. She may be ready to transition to oral diuretics in the next 1-2 days. (2) Mitral stenosis Status: Chronic Assessment & Plan: She has mild to moderate mitral stenosis noted on her previous echocardiogram. I do not think this is at the point that this needs intervention but this will need to be followed longitudinally. (3) Pulmonary hypertension Status: Chronic Assessment & Plan: This is most likely multifactorial. The patient may benefit from home oxygen if she is not already using this. She does also follow with a portable feed mill operator at [place] and is taking sildenafil at home which has been continued here in the hospital. (4) Primary hypertension Status: Chronic Assessment & Plan: Continue outpatient antihypertensive medication. (5) Mixed hyperlipidemia Status: Chronic Assessment & Plan: Continue statin medication. (6) Stage 3b chronic kidney disease Status: Chronic Assessment & Plan: We will need to watch this closely with the intravenous diuretic. Her creatinine has been reasonably stable over the first 48 hours of intravenous diuretic. She will be seeing a licensed prosthetist/orthotist as an outpatient in the near future. (7) Acute on chronic respiratory failure with hypoxemia Status: Acute Assessment & Plan: Most likely multifactorial due to underlying pulmonary disease as well as the decompensated heart failure. (8) Type 2 diabetes mellitus with complication Status: Chronic Assessment & Plan: This is being managed by the hospitalist. (9) Morbid obesity Status: Chronic Assessment & Plan: She has been counseled about weight loss and health implications of obesity. (10) Superficial bruising of abdominal wall Assessment & Plan: I had her undergo an abdominal wall ultrasound which did not show any fluid collection. This may just be ecchymoses from receivin prophylactic dosing of enoxaparin during her recent hospitalization. I would suggest using venous compression devices for prophylaxis of deep venous thrombosis as opposed to restarting enoxaparin. JEANMARIE GRIFFITH JR, MD Jan 15, 2022 08:13
[2022-01-15] MEDS: ZINC SULFATE 220 MG CAPSULE PO SCH (08:41)
[2022-01-15] MEDS: ASCORBIC ACID (VIT C) 500 MG TABLET PO SCH (08:42)
[2022-01-15] MEDS: KCL 10 MEQ TAB (MICRO K) PO SCH (08:42)
[2022-01-15] MEDS: GABAPENTIN 300 MG (NEURONTIN) CAP PO SCH ×2 (08:42→11:51)
[2022-01-15] MEDS: ASPIRIN E.C. 81 MG (ECOTRIN) TAB PO SCH (08:42)
[2022-01-15] MEDS: busPIRone 5 MG (BUSPAR) TAB PO SCH (08:42)
[2022-01-15] MEDS: VENlafaxine XR 75 MG (EFFEXOR XR) CAP PO SCH (08:43)
[2022-01-15] MEDS: SILDENAFIL 20 MG (REVATIO) TAB PO SCH ×2 (08:43→11:51)
[2022-01-15] MEDS: VITAMIN D3 125 MCG (5,000 UNITS) CAPSULE PO SCH (08:44)
[2022-01-15] MEDS: BUMETANIDE 1 MG/4 ML (BUMEX) VIAL IV SCH (08:49)
[2022-01-15] MEDS: DOCUSATE SODIUM 100 MG (COLACE) CAP PO SCH (09:10)
[2022-01-15] MEDS: SENNOSIDES 8.6 MG (SENOKOT) TAB PO SCH (09:10)
[2022-01-15] MEDS: inSUlin ASPART (NovoLOG) 1 UNIT/0.01 ML (CHARGE PER UNIT) SQ SCH (09:10)
--- NOTE | 2022-01-15 09:38 | Progress Note ---
LORIN PFEIFFER 01/15/22 0938: Subjective Date Seen by a Provider: Jan 15, 2022 Time Seen by a Provider: 07:30 Subjective/Events-last exam Patient is a 66 year old woman admitted for CHF exacerbation.She was recently discharged from the hospital on 01/06 after being admitted for acute volume over load. She states that for the 4-5 before she arrived in the ER she has been experiencing progressively worsening SOB and swelling. She takes furosemide for her heart failure, typically 40 mg but states that she sometimes takes 80 or 120 mg but hadn't noticed any improvement before seeking care in the emergency department. PMH of CHF, COPD, HTN, Type II Diabetes, stage III kidney failure, hyperlipidemia, pulmonary hypertension, CAD, sleep apnea, anxiety, depression. Upon arrival she was found to have a BNP of 1547 and IV diuresis was initiated. Initial chest x-ray showed cardiomegaly with pulmonary vascular congestion, findings highly suggestive of congestive heart failure. No appreciable effusion. The was then transferred to general admission for continued treatment. Over the following days her SOB and swelling have continued to improve and Bumex was started for greater diuresis in the setting of extensive fluid overload. She states that she is feeling okay this morning. Notes that her breathing has improved since yesterday but her SOB is still present. Indicates a minor headache, continued left-sided abdominal pain, and swelling in her legs. Denies nausea, vomiting, chest pain, constipation, or diarrhea. Has no new concerns but is interested in trying inpatient rehab before moving to home hospice care. She is being transferred down to rehab this afternoon for further treatment. Upon interview she was still anxious and tearful when speaking about her condition but seems to have strong family support to help her through her predicament. Review of Systems General: No Chills HEENT: Head Aches (Minor); No Visual Changes Pulmonary: Dyspnea; No Cough, No Pleuritic Chest Pain Cardiovascular: Edema; No: Chest Pain, Palpitations, Lt Headedness Gastrointestinal: Abdominal Pain (Left-sided); No: Nausea, Vomiting, Diarrhea, Constipation Genitourinary: No Dysuria; Frequency Musculoskeletal: foot pain (Right churn tender due to swelling) Neurological: No: Numbness, Change in speech, Confusion Focused Exam Sepsis Stage: Ruled Out Reason for ruling out sepsis: Patient does not have suspected infection nor does she meet SIRS criteria Objective Exam Last Set of Vital Signs Vital Signs Date Time Temp Pulse Resp B/P (MAP) Pulse Ox O2 Delivery O2 Flow Rate FiO2 01/15/22 08:06 96 Nasal Cannula 4.00 01/15/22 08:00 36.8 98 18 125/64 (84) Capillary Refill : I&O Intake and Output 01/15/22 00:00 Intake Total 1480 ml Output Total 1925 ml Balance -445 ml Intake Oral 1480 ml Output Urine Total 1925 ml General: Alert, Oriented X3, Cooperative, Mild Distress HEENT: Atraumatic, EOMI Neck: Supple, No JVD, No Thyromegaly, +2 Carotid Pulse No Bruit Lungs: Clear to Auscultation, Normal Air Movement, Other (Lung sounds are diminished bilaterally) Heart: Regular Rate, Normal S1, Normal S2, No Murmurs Abdomen: Normal Bowel Sounds, Soft, Other (Tenderness to palpation in LLQ and LUQ) Extremities: No Clubbing, No Cyanosis, Normal Pulses, Other (1+ pitting pre- tibial edema, swelling also noted in feet and thighs) Skin: No Rashes, No Significant Lesion Neuro: Normal Speech, Normal Tone, Sensation Intact Psych/Mental Status: Mental Status NL, Other (Patient is anxious and tearful during interview. Worries about her prognosis and life expectancy) Other physical findings Large, discontinuous hematoma present on superficial abdomen, likely due to enoxaparin injections. These have since been DC'd. Results Lab Laboratory Tests 01/14/22 11:04: Glucometer 140H 01/14/22 16:53: Glucometer 74 01/14/22 19:48: Glucometer 142H 01/15/22 05:29: Glucometer 51*L 01/15/22 06:18: Glucometer 92 01/15/22 06:20: White Blood Count 9.8, Red Blood Count 2.92L, Hemoglobin 9.3L, Hematocrit 31L, Mean Corpuscular Volume 107H, Mean Corpuscular Hemoglobin 32, Mean Corpuscular Hemoglobin Concent 30L, Red Cell Distribution Width 13.1, Platelet Count 206, Mean Platelet Volume 9.6, Immature Granulocyte % (Auto) 0, Neutrophils (%) (Auto) 81H, Lymphocytes (%) (Auto) 9L, Monocytes (%) (Auto) 5, Eosinophils (%) (Auto) 4, Basophils (%) (Auto) 1, Neutrophils # (Auto) 8.0H, Lymphocytes # (Auto) 0.8L, Monocytes # (Auto) 0.5, Eosinophils # (Auto) 0.4H, Basophils # (Auto) 0.1, Immature Granulocyte # (Auto) 0.0, Sodium Level 144, Potassium Level 5.1H, Chloride Level 99, Carbon Dioxide Level 32, Anion Gap 13, Blood Urea Nitrogen 40H, Creatinine 1.49H, Estimat Glomerular Filtration Rate 38, BUN/Creatinine Ratio 27, Glucose Level 94, Calcium Level 7.3L, Corrected Calcium 7.9L, Total Bilirubin 0.3, Aspartate Amino Transf (AST/SGOT) 21, Alanine Aminotransferase (ALT/SGPT) 25, Alkaline Phosphatase 115, Total Protein 6.7, Albumin 3.3 Meds Home Medication List Reviewed: Yes Acetaminophen (Tylenol Extra Strength) 500 Mg Tablet, 1,000 MG PO BID PRN for PAIN-MILD, (Reported) Entered as Reported by: MOODY FRANCO on 11/02/17 1632 Albuterol Sulfate (Ventolin Hfa) 90 Mcg Hfa.aer.ad, 2 PUFF INH Q6H PRN for SHORTNESS OF BREATH, (Reported) Entered as Reported by: TROY HAQUE on 01/03/22 112 Alprazolam (Alprazolam) 0.5 Mg Tablet, 0.5 MG PO BID PRN for ANXIETY, (Reported) Entered as Reported by: TROY HAQUE on 01/03/22 112 Ascorbate Calcium (Vitamin C) 500 Mg Tablet, 500 MG PO DAILY, (Reported) Entered as Reported by: TEJA PORTILLO on 08/12/21 1323 Aspirin (Aspirin EC) 81 Mg Tablet.dr, 81 MG PO DAILY, (Reported) Entered as Reported by: MOODY FRANCO on 11/02/17 1632 Budesonide (Budesonide) 0.5 Mg/2 Ml Ampul.neb, 0.5 MG IH BID, (Reported) Entered as Reported by: TEJA PORTILLO on 08/12/21 1503 Buspirone HCl (Buspirone HCl) 5 Mg Tablet, 5 MG PO BID, (Reported) Entered as Reported by: TROY HAQUE on 01/03/22 1127 Cholecalciferol (Vitamin D3) (Vitamin D3) 125 Mcg (5000 Unit) Tablet, 125 MCG PO DAILY, (Reported) Entered as Reported by: TEJA PORTILLO on 08/12/21 1324 Formoterol Fumarate (Perforomist) 20 Mcg/2 Ml Vial.neb, 20 MCG IH BID, (Reported) Entered as Reported by: TEJA PORTILLO on 08/12/21 1503 Furosemide (Furosemide) 40 Mg Tablet, 40 MG PO DAILY@0700,1200 Prescribed by: DEYA BAILEY on 01/06/22 1002 Gabapentin (Neurontin) 300 Mg Capsule, 300 MG PO QID, (Reported) Entered as Reported by: TEJA PORTILLO on 08/12/21 1320 Insulin Aspart (Insulin Aspart Flexpen) 100 Unit/Ml (3 Ml) Insuln.pen, 6 UNIT SQ DAILY, (Reported) Entered as Reported by: Linh Cat on 08/11/21 1009 Insulin Degludec (Tresiba Flextouch U-200) 200 Unit/Ml (3 Ml) Insuln.pen, 30 UNITS SC BID, (Reported) Entered as Reported by: MOODY FRANCO on 11/02/17 1632 Levothyroxine Sodium (Levothyroxine Sodium) 125 Mcg Tablet, 125 MCG PO DAILY, (Reported) Entered as Reported by: ALHAJI HORTA on 09/13/19 0833 Losartan Potassium (Losartan Potassium) 50 Mg Tablet, 50 MG PO DAILY, (Reported) Entered as Reported by: MOODY FRANCO on 11/02/17 1632 Melatonin (Melatonin) 3 Mg Tablet, 3 MG PO HS, (Reported) Entered as Reported by: TROY HAQUE on 01/03/22 1127 Metoprolol Succinate (Metoprolol Succinate) 25 Mg Tab.er.24h, 25 MG PO DAILY, (Reported) Entered as Reported by: MOODY FRANCO on 11/02/17 1632 Montelukast Sodium (Montelukast Sodium) 10 Mg Tablet, 10 MG PO HS, (Reported) Entered as Reported by: TROY HAQUE on 06/20/20 1407 Pantoprazole Sodium (Pantoprazole Sodium) 40 Mg Tablet.dr, 40 MG PO DAILY, (Reported) Entered as Reported by: ALHAJI HORTA on 09/13/19 0833 Potassium Chloride (Potassium Chloride) 10 Meq Tab.er.prt, 10 MEQ PO DAILY, (Reported) Entered as Reported by: TROY HAQUE on 06/20/20 1407 Promethazine HCl (Promethazine Tablet) 25 Mg Tablet, 25 MG PO Q6H PRN for NAUSEA/VOMITING-2ND LINE, (Reported) Entered as Reported by: TROY HAQUE on 12/03/21 1230 Revefenacin (Yupelri) 175 Mcg/3 Ml Vial.neb, 175 MCG IH 1200, (Reported) Entered as Reported by: TEJA PORTILLO on 08/12/21 1504 Sildenafil Citrate (Sildenafil) 20 Mg Tablet, 20 MG PO TID, (Reported) Entered as Reported by: Linh Cat on 08/11/21 1009 Simvastatin (Simvastatin) 10 Mg Tablet, 10 MG PO HS, (Reported) Entered as Reported by: Linh Cat on 08/11/21 1009 Trazodone HCl (Trazodone HCl) 50 Mg Tablet, 150 MG PO HS, (Reported) Entered as Reported by: TROY HAQUE on 01/03/22 1127 Venlafaxine HCl (Venlafaxine HCl ER) 150 Mg Cap.er.24h, 150 MG PO DAILY, (Reported) Entered as Reported by: TEJA PORTILLO on 08/12/21 1217 Zinc Amino Acid Chelate (Zinc) 50 Mg Tablet, 50 MG PO DAILY, (Reported) Entered as Reported by: TEJA PORTILLO on 08/12/21 1323 Discontinued Medications Furosemide (Furosemide) 40 Mg Tablet, 40 MG PO DAILY, (Reported) Entered as Reported by: TROY HAQUE on 01/03/22 1127 Furosemide (Furosemide) 40 Mg Tablet, 40 MG PO 1400 PRN for EXCESS FLUID, (Reported) Entered as Reported by: TROY HAQUE on 01/03/22 1127 Patient placed on bumetanide for attainment of greater diuresis. Oral bumetanide or torsemide recommended by Dr. Quinones once transition to oral meds is deemed appropriate Radiology Date of Exam:01/14/22 US ABDOMEN LIMITED [id number] PROCEDURE: US Abdomen, limited. TECHNIQUE: Multiple realtime grayscale images were obtained over the abdomen in various projections. INDICATION: Bruising, abdominal wall hematoma. COMPARISON: None available. FINDINGS: No focal fluid collection or suspicious solid mass lesion. In particular, no focal abnormality within the area of interest within the right and left abdominal wall. IMPRESSION: Unremarkable examination. No significant focal fluid collection or solid mass lesion. Dictated by: Dictated on workstation # [id number] Dict: 01/14/22 1050 Trans: 01/14/22 1242 [id number] Interpreted by: EPIFANIO YANES MD Electronically signed by: EPIFANIO YANES MD 01/14/22 1242 Assessment/Plan Assessment/Plan Assess & Plan/Chief Complaint CHF exacerbation - Given patient's failure to improve with furosemide up to 120 mg, bumetanide has been initiated to attain diuresis. Continue to monitor respiratory symptoms, fluid levels, and kidney function. Continue oxygen via NC. Dr. Quinones was consulted for cardiological management. He does not recommend intervention in the case of her mitral stenosis at this time. He does recommend beginning oral bumetanide or torsemide once appropriate to transition to oral medications. Kidney function is stable, patient SOB and swelling continue to improve. COPD - albuterol sulfate, budesonide, revefenacin Anxiety - alprazolam, buspirone Depression - venlafaxine Mitral stenosis - Cardiology does not recommend intervention at this time Primary hypertension - losartan, metoprolol Hyperlipidemia - atorvastatin initiated Type II DM - insulin aspart, insulin degludec GERD - pantoprazole Hypothyroidism - levothyroxine Bilateral CVA tenderness - kidney function has remained stable since initial labs were taken. Continue monitoring and consider instituting pharmacological treatment if pain worsens Abdominal hematoma - possibly due to lovenox injections, will continue to monitor for changes. Lovenox DCd Hospice care recommended upon discharge. Patient to be transferred to inpatient rehab before transfer to home hospice care Clinical Quality Measures Admission Status Admission Dx CHF exacerbation AMI/AHF: Ejection Fraction %: 60 DVT/VTE Risk/Contraindication: VTE Addressed: Yes VTE Present on Admission: No DEYA BAILEY DO 01/15/222056: Supervisory-Addendum Brief Verification & Attestation Participated in pt care: history, MDM, physical Personally performed: exam, history, MDM, supervision of care Care discussed with: Medical Student Procedures: n/a Results interpretation: Verified all documentation Verification and Attestation of Medical Student E/M Service A medical student performed and documented this service in my presence. I reviewed and verified all information documented by the medical student and made modifications to such information, when appropriate. I personally performed the physical exam and medical decision making. Deya Bailey, Jan 15, 2022,20:56 LORIN PFEIFFER Jan 15, 2022 09:38 DEYA BAILEY DO Jan 15, 2022 20:57
--- NOTE | 2022-01-15 09:44 | Physical Therapy Daily Note ---
PT Daily Note-Current Subjective Pt. agrees to Rx, nursing and students arrive as Rx begins, as well as Dr Cardenas entrance during Rx. Pain Location: No Pain Reported Section J - Health Conditions 1. Rarely or not at all 2. Occasionally 3. Frequently 4. Almost constantly 8. Unable to answer Pain Effect on Sleep: 1 Pain Interference with Therapy: 1 Pain Interference w/Day-to-Day: 1 Mental Status Patient Orientation: Normal For Age Attachments: Oxygen Transfers SCALE: Activities may be completed with or without assistive devices. 6-Rzwsntbqwq-bxiexti completes the activity by him/herself with no assistance from a helper. 5-Set-up or Clean-up Assistance-helper sets up or cleans up; patient completes activity. [place] assists only prior to or following the activity. 4-Supervision or Touching Assistance-helper provides verbal cues and/or touching/steadying and/or contact guard assistance as patient completes activity. Assistance may be provided throughout the activity or intermittently. 3-Partial/Moderate Assistance-helper does LESS THAN HALF the effort. [place] lifts, holds or supports trunk or limbs, but provides less than half the effort. 2-Substantial/Maximal Assistance-helper does MORE THAN HALF the effort. [place] lifts or holds trunk or limbs and provides more than half the effort. 7-Bzaesogaw-xnotlk does ALL the effort. Patient does none of the effort to complete the activity. Or, the assistance of 2 or more helpers is required for the patient to complete the activity. If activity was not attempted, code reason: 7-Patient Refused. 9-Not Applicable-not attempted and the patient did not perform the activity before the current illness, exacerbation or injury. 10-Not Attempted due to Environmental Limitations-(lack of equipment, weather restraints, etc.). 88-Not Attempted due to Medical Conditions or Safety Concerns. sit to stand x 1 CGA to min Weight Bearing Right Lower Extremity: Right Weight Bearing/Tolerated Left Lower Extremity: Left Weight Bearing/Tolerated Exercises Supine Ex: Ankle pumps, Quad Set, Glut sets, Straight leg raise Supine Reps: 10 Seated Therapy Exercises: Ankle pumps, Sit to stand (1), Long arc quads, Hip flexion, Hip abd/add Seated Reps: 12 Treatments attempted gait but nursing and Dr macdonald, pt. was educated in use of extended O2 tubing in home / safety etc and use of FWW for energy conservation. sup and seated LE ex done, As Dr is in room pt asks about further stay in the rehab. It appears pt to TRF to rehab today Assessment Current Status: Good Progress PT Retirement Goals Retirement Goals PT Cardiology Specialist Goals Time Frame: Jan 21, 2022 Roll Left & Right (QC): 6 Sit to Lying (QC): 6 Lying-Sitting on Side/Bed(QC): 6 Sit to Stand (QC): 6 Chair/Roi-wa-Kdarc Xfer(QC): 6 Toilet Transfer (QC): 6 Does the Patient Walk: Yes Walk 10 feet (QC): 6 Walk 50ft with 2 Turns (QC): 6 Walk 150 ft (QC): 6 PT Plan Treatment/Plan Treatment Plan: Continue Plan of Care, Discontinue PT Treatment Plan: Bed Mobility, Education, Functional Activity Lola, Functional Strength, Gait, Safety, Therapeutic Exercise, Transfers Treatment Duration: Jan 21, 2022 Frequency: 6 times per week Estimated Hrs Per Day: .25 hour per day Patient and/or Family Agrees t: Yes Safety Risks/Education Patient Education: Transfer Techniques, Correct Positioning, Disease Process, Safety Issues Teaching Recipient: Patient Teaching Methods: Demonstration, Discussion Response to Teaching: Verbalize Understanding, Return Demonstration, Reinforcement Needed Time Time In: 845 Time Out: 900 DATE: Jan 15, 2022 Total Billed Treatment Time: 15 Total Billed Treatment 1,EX15m SHAREE AZUL BLIND HANGER Jan 15, 2022 09:44
--- NOTE | 2022-01-15 10:19 | Discharge Summary ---
Diagnosis/Chief Complaint Date of Admission Jan 13, 2022 at 14:20 Date of Discharge Discharge Date: Jan 15, 2022 Discharge Diagnosis CHF exacerbation - Given patient's failure to improve with furosemide up to 120 mg, bumetanide has been initiated to attain diuresis. Continue to monitor r espiratory symptoms, fluid levels, and kidney function. Continue oxygen via NC. Dr. Quinones was consulted for cardiological management. He does not recommend intervention in the case of her mitral stenosis at this time. He does recommend beginning oral bumetanide or torsemide once appropriate to transition to oral medications. Kidney function is stable, patient SOB and swelling continue to improve. COPD - albuterol sulfate, budesonide, revefenacin Anxiety - alprazolam, buspirone Depression - venlafaxine Mitral stenosis - Cardiology does not recommend intervention at this time Primary hypertension - losartan, metoprolol Hyperlipidemia - atorvastatin initiated Type II DM - insulin aspart, insulin degludec GERD - pantoprazole Hypothyroidism - levothyroxine Bilateral CVA tenderness - kidney function has remained stable since initial labs were taken. Continue monitoring and consider instituting pharmacological treatment if pain worsens Abdominal hematoma - possibly due to lovenox injections, will continue to monit or for changes. Lovenox DCd Hospice care recommended upon discharge. Patient to be transferred to inpatient rehab before transfer to home hospice care Discharge Summary Discharge Physical Examination Allergies: Coded Allergies: Penicillins (Verified Allergy, Unknown, VOMITING, 12/09/21) meperidine (Verified Allergy, Unknown, VOMITING, 12/09/21) morphine (Unverified Allergy, Unknown, RASH, BREATHING DIFFICULTY, 12/09/21) propoxyphene (Verified Allergy, Unknown, 12/09/21) topiramate (Verified Allergy, Unknown, LOSS OF EYESIGHT, 12/09/21) codeine (Verified Adverse Reaction, Unknown, UPSET STOMACH, 12/09/21) dapagliflozin (Verified Adverse Reaction, Unknown, yeast infection, 12/09/21) Vitals & I&Os Vital Signs Date Time Temp Pulse Resp B/P (MAP) Pulse Ox O2 Delivery O2 Flow Rate FiO2 01/15/22 12:02 86 16 106/62 (77) 93 Nasal Cannula 4.00 01/15/22 12:00 37.0 General Appearance: Alert, Oriented X3, Cooperative Respiratory: Clear to Auscultation Cardiovascular: Regular Rate Psych/Mental Status: Mental Status NL Hospital Course Was the Problem List Reviewed?: Yes Patient is a 66 year old woman admitted for CHF exacerbation.She was recently di scharged from the hospital on 01/06 after being admitted for acute volume overload. She states that for the 4-5 before she arrived in the ER she has been experiencing progressively worsening SOB and swelling. She takes furosemide for her heart failure, typically 40 mg but states that she sometimes takes 80 or 120 mg but hadn't noticed any improvement before seeking care in the emergency department. PMH of CHF, COPD, HTN, Type II Diabetes, stage III kidney failure, hyperlipidemia, pulmonary hypertension, CAD, sleep apnea, anxiety, depression. Upon arrival she was found to have a BNP of 1547 and IV diuresis was initiated. Initial chest x-ray showed cardiomegaly with pulmonary vascular congestion, findings highly suggestive of congestive heart failure. No appreciable effusion. The was then transferred to general admission for continued treatment. Over the following days her SOB and swelling have continued to improve and Bumex was started for greater diuresis in the setting of extensive fluid overload. She states that she is feeling okay this morning. Notes that her breathing has improved since yesterday but her SOB is still present. Indicates a minor headache, continued left-sided abdominal pain, and swelling in her legs. Denies nausea, vomiting, chest pain, constipation, or diarrhea. Has no new concerns but is interested in trying inpatient rehab before moving to home hospice care. She is being transferred down to rehab this afternoon for further treatment. Upon interview she was still anxious and tearful when speaking about her condition but seems to have strong family support to help her through her predicament. Labs (last 24 hrs) Laboratory Tests 01/13/22 12:50: White Blood Count 9.2, Red Blood Count 2.89L, Hemoglobin 9.3L, Hematocrit 31L, Mean Corpuscular Volume 107H, Mean Corpuscular Hemoglobin 32, Mean Corpuscular Hemoglobin Concent 30L, Red Cell Distribution Width 13.1, Platelet Count 201, Mean Platelet Volume 9.7, Immature Granulocyte % (Auto) 0, Neutrophils (%) (Auto) 83H, Lymphocytes (%) (Auto) 8L, Monocytes (%) (Auto) 5, Eosinophils (%) (Auto) 3, Basophils (%) (Auto) 1, Neutrophils # (Auto) 7.7, Lymphocytes # (Auto) 0.8L, Monocytes # (Auto) 0.4, Eosinophils # (Auto) 0.3, Basophils # (Auto) 0.1, Immature Granulocyte # (Auto) 0.0, Sodium Level 139, Potassium Level 4.7, Chloride Level 99, Carbon Dioxide Level 29, Anion Gap 11, Blood Urea Nitrogen 37H, Creatinine 1.49H, Estimat Glomerular Filtration Rate 38, BUN/Creatinine Ratio 25, Glucose Level 193H, Calcium Level 8.5, Corrected Calcium 9.1, Total Bilirubin 0.3, Aspartate Amino Transf (AST/SGOT) 27, Alanine Aminotransferase (ALT/SGPT) 37, Alkaline Phosphatase 122, Troponin I < 0.028, B-Type Natriuretic Peptide 1547.6H, Total Protein 6.8, Albumin 3.3 01/13/22 16:50: Glucometer 97 01/13/22 20:12: Glucometer 117H 01/14/22 04:19: White Blood Count 8.6, Red Blood Count 2.85L, Hemoglobin 9.1L, Hematocrit 31L, Mean Corpuscular Volume 107H, Mean Corpuscular Hemoglobin 32, Mean Corpuscular Hemoglobin Concent 30L, Red Cell Distribution Width 13.1, Platelet Count 193, Mean Platelet Volume 9.7, Immature Granulocyte % (Auto) 0, Neutrophils (%) (Auto) 76H, Lymphocytes (%) (Auto) 11L, Monocytes (%) (Auto) 6, Eosinophils (%) (Auto) 7, Basophils (%) (Auto) 1, Neutrophils # (Auto) 6.5, Lymphocytes # (Auto) 0.9L, Monocytes # (Auto) 0.5, Eosinophils # (Auto) 0.6H, Basophils # (Auto) 0.1, Immature Granulocyte # (Auto) 0.0, Sodium Level 144, Potassium Level 4.2, Chlor vadim Level 100, Carbon Dioxide Level 32, Anion Gap 12, Blood Urea Nitrogen 37H, Creatinine 1.50H, Estimat Glomerular Filtration Rate 38, BUN/Creatinine Ratio 25, Glucose Level 87, Calcium Level 8.5, Corrected Calcium 9.1, Total Bilirubin 0.3, Aspartate Amino Transf (AST/SGOT) 22, Alanine Aminotransferase (ALT/SGPT) 28, Alkaline Phosphatase 115, Total Protein 6.6, Albumin 3.2 01/14/22 11:04: Glucometer 140H 01/14/22 16:53: Glucometer 74 01/14/22 19:48: Glucometer 142H 01/15/22 05:29: Glucometer 51*L 01/15/22 06:18: Glucometer 92 01/15/22 06:20: White Blood Count 9.8, Red Blood Count 2.92L, Hemoglobin 9.3L, Hematocrit 31L, Mean Corpuscular Volume 107H, Mean Corpuscular Hemoglobin 32, Mean Corpuscular Hemoglobin Concent 30L, Red Cell Distribution Width 13.1, Platelet Count 206, Mean Platelet Volume 9.6, Immature Granulocyte % (Auto) 0, Neutrophils (%) (Auto) 81H, Lymphocytes (%) (Auto) 9L, Monocytes (%) (Auto) 5, Eosinophils (%) (Auto) 4, Basophils (%) (Auto) 1, Neutrophils # (Auto) 8.0H, Lymphocytes # (Auto) 0.8L, Monocytes # (Auto) 0.5, Eosinophils # (Auto) 0.4H, Basophils # (Auto) 0.1, Immature Granulocyte # (Auto) 0.0, Sodium Level 144, Potassium Level 5.1H, Chloride Level 99, Carbon Dioxide Level 32, Anion Gap 13, Blood Urea Nitrogen 40H, Creatinine 1.49H, Estimat Glomerular Filtration Rate 38, BUN/Creatinine Ratio 27, Glucose Level 94, Calcium Level 7.3L, Corrected Calcium 7.9L, Total Bilirubin 0.3, Aspartate Amino Transf (AST/SGOT) 21, Alanine Aminotransferase (ALT/SGPT) 25, Alkaline Phosphatase 115, Total Protein 6.7, Albumin 3.3 01/15/22 10:59: Glucometer 196H Pending Labs Laboratory Tests 01/13/22 12:50: White Blood Count 9.2, Red Blood Count 2.89, Hemoglobin 9.3, Hematocrit 31, Mean Corpuscular Volume 107, Mean Corpuscular Hemoglobin 32, Mean Corpuscular Hemoglobin Concent 30, Red Cell Distribution Width 13.1, Platelet Count 201, Mean Platelet Volume 9.7, Immature Granulocyte % (Auto) 0, Neutrophils (%) (Auto) 83, Lymphocytes (%) (Auto) 8, Monocytes (%) (Auto) 5, Eosinophils (%) (Auto) 3, Basophils (%) (Auto) 1, Neutrophils # (Auto) 7.7, Lymphocytes # (Auto) 0.8, Monocytes # (Auto) 0.4, Eosinophils # (Auto) 0.3, Basophils # (Auto) 0.1, Immature Granulocyte # (Auto) 0.0, Sodium Level 139, Potassium Level 4.7, Chloride Level 99, Carbon Dioxide Level 29, Anion Gap 11, Blood Urea Nitrogen 37, Creatinine 1.49, Estimat Glomerular Filtration Rate 38, BUN/Creatinine Ratio 25, Glucose Level 193, Calcium Level 8.5, Corrected Calcium 9.1, Total Bilirubin 0.3, Aspartate Amino Transf (AST/SGOT) 27, Alanine Aminotransferase (ALT/SGPT) 37, Alkaline Phosphatase 122, Troponin I < 0.028, B-Type Natriuretic Peptide 1547.6, Total Protein 6.8, Albumin 3.3 01/13/22 16:50: Glucometer 97 01/13/22 20:12: Glucometer 117 01/14/22 04:19: White Blood Count 8.6, Red Blood Count 2.85, Hemoglobin 9.1, Hematocrit 31, Mean Corpuscular Volume 107, Mean Corpuscular Hemoglobin 32, Mean Corpuscular Hemoglobin Concent 30, Red Cell Distribution Width 13.1, Platelet Count 193, Mean Platelet Volume 9.7, Immature Granulocyte % (Auto) 0, Neutrophils (%) (Auto) 76, Lymphocytes (%) (Auto) 11, Monocytes (%) (Auto) 6, Eosinophils (%) (Auto) 7, Basophils (%) (Auto) 1, Neutrophils # (Auto) 6.5, Lymphocytes # (Auto) 0.9, Monocytes # (Auto) 0.5, Eosinophils # (Auto) 0.6, Basophils # (Auto) 0.1, Immature Granulocyte # (Auto) 0.0, Sodium Level 144, Potassium Level 4.2, Chloride Level 100, Carbon Dioxide Level 32, Anion Gap 12, Blood Urea Nitrogen 37, Creatinine 1.50, Estimat Glomerular Filtration Rate 38, BUN/Creatinine Ratio 25, Glucose Level 87, Calcium Level 8.5, Corrected Calcium 9.1, Total Bilirubin 0.3, Aspartate Amino Transf (AST/SGOT) 22, Alanine Aminotransferase (ALT/SGPT) 28, Alkaline Phosphatase 115, Total Protein 6.6, Albumin 3.2 01/14/22 11:04: Glucometer 140 01/14/22 16:53: Glucometer 74 01/14/22 19:48: Glucometer 142 01/15/22 05:29: Glucometer 51 01/15/22 06:18: Glucometer 92 01/15/22 06:20: White Blood Count 9.8, Red Blood Count 2.92, Hemoglobin 9.3, Hematocrit 31, Mean Corpuscular Volume 107, Mean Corpuscular Hemoglobin 32, Mean Corpuscular Hemoglobin Concent 30, Red Cell Distribution Width 13.1, Platelet Count 206, Mean Platelet Volume 9.6, Immature Granulocyte % (Auto) 0, Neutrophils (%) (Auto) 81, Lymphocytes (%) (Auto) 9, Monocytes (%) (Auto) 5, Eosinophils (%) (Auto) 4, Basophils (%) (Auto) 1, Neutrophils # (Auto) 8.0, Lymphocytes # (Auto) 0.8, Monocytes # (Auto) 0.5, Eosinophils # (Auto) 0.4, Basophils # (Auto) 0.1, Immature Granulocyte # (Auto) 0.0, Sodium Level 144, Potassium Level 5.1, Chloride Level 99, Carbon Dioxide Level 32, Anion Gap 13, Blood Urea Nitrogen 40, Creatinine 1.49, Estimat Glomerular Filtration Rate 38, BUN/Creatinine Ratio 27, Glucose Level 94, Calcium Level 7.3, Corrected Calcium 7.9, Total Bilirubin 0.3, Aspartate Amino Transf (AST/SGOT) 21, Alanine Aminotransferase (ALT/SGPT) 25, Alkaline Phosphatase 115, Total Protein 6.7, Albumin 3.3 01/15/22 10:59: Glucometer 196 Discharge Home Medications: Active Scripts Active Furosemide 40 Mg Tablet 40 Mg PO DAILY@0700,1200 Reported Alprazolam 0.5 Mg Tablet 0.5 Mg PO BID PRN Ventolin Hfa (Albuterol Sulfate) 90 Mcg Hfa.aer.ad 2 Puff INH Q6H PRN Trazodone HCl 50 Mg Tablet 150 Mg PO HS TAKES 3 (50MG) TABS Melatonin 3 Mg Tablet 3 Mg PO HS Buspirone HCl 5 Mg Tablet 5 Mg PO BID Promethazine Tablet (Promethazine HCl) 25 Mg Tablet 25 Mg PO Q6H PRN Yupelri (Revefenacin) 175 Mcg/3 Ml Vial.neb 175 Mcg IH 1200 Perforomist (Formoterol Fumarate) 20 Mcg/2 Ml Vial.neb 20 Mcg IH BID Budesonide 0.5 Mg/2 Ml Ampul.neb 0.5 Mg IH BID Vitamin D3 (Cholecalciferol (Vitamin D3)) 125 Mcg (5000 Unit) Tablet 125 Mcg PO DAILY Vitamin C (Ascorbate Calcium) 500 Mg Tablet 500 Mg PO DAILY Zinc (Zinc Amino Acid Chelate) 50 Mg Tablet 50 Mg PO DAILY Neurontin (Gabapentin) 300 Mg Capsule 300 Mg PO QID Venlafaxine HCl ER (Venlafaxine HCl) 150 Mg Cap.er.24h 150 Mg PO DAILY Sildenafil (Sildenafil Citrate) 20 Mg Tablet 20 Mg PO TID Insulin Aspart Flexpen (Insulin Aspart) 100 Unit/Ml (3 Ml) Insuln.pen 6 Unit SQ DAILY Simvastatin 10 Mg Tablet 10 Mg PO HS Montelukast Sodium 10 Mg Tablet 10 Mg PO HS Potassium Chloride 10 Meq Tab.er.prt 10 Meq PO DAILY Pantoprazole Sodium 40 Mg Tablet.dr 40 Mg PO DAILY Levothyroxine Sodium 125 Mcg Tablet 125 Mcg PO DAILY Tylenol Extra Strength (Acetaminophen) 500 Mg Tablet 1,000 Mg PO BID PRN Aspirin EC (Aspirin) 81 Mg Tablet.dr 81 Mg PO DAILY Metoprolol Succinate 25 Mg Tab.er.24h 25 Mg PO DAILY Losartan Potassium 50 Mg Tablet 50 Mg PO DAILY Tresiba Flextouch U-200 (Insulin Degludec) 200 Unit/Ml (3 Ml) Insuln.pen 30 Units SC BID Instructions to patient/family Please see electronic discharge instructions given to patient. Clinical Quality Measures AMI/AHF: Ejection Fraction %: 60 DVT/VTE Risk/Contraindication: VTE Addressed: Yes VTE Present on Admission: No FERN BAILEY DO Jan 15, 2022 10:19
--- NOTE | 2022-01-15 11:08 | Diagnostic Imaging Report ---
INDICATION: Shortness of breath. COMPARISON: 01/13/2022. FINDINGS: The heart is enlarged. There is vascular congestion. There are Grace B lines and interstitial edema. No pleural fluid. IMPRESSION: Failure pattern with interstitial edema but no pleural fluid. Dictated by: Dictated on workstation # [id number]
[2022-01-15 12:00] VITALS: BP 131/60
[2022-01-15 12:02] VITALS: BP 106/62
--- NOTE | 2022-01-15 12:07 | Progress Note ---
REJI DUARTE 01/15/22 1207: Progress Note CC: Ms. Taveras is a 66 year old female who presents to the in-patient rehabilitation unit. Plan for patient is to rehabilitate to return home where she will receive hospice care. HPI: Patient is transferring from [facility] fourth floor. Patient was admitted to [facility] on 01/13/22 for CHF exacerbation. The patient's past medical history is significant for heart failure and recent hospitalization for acute volume overload. The patient desires to rehabilitate to a state where she can return home and receive hospice care. Patient states she is tolerating PO food and drink, is ambulating with walker and assistance, and recently had her urinary catheter removed. Patient states her last BM was this morning and denies having urinated since having the catheter removed. Patient states overall she feels as though she is improving. Patient denies current questions or concerns regarding in-patient rehabilitation. PMHx: CHF, COPD, HTN, T2 DM, Stage III CKD, HLD, pulmonary HTN, CAD, sleep apnea, anxiety, depression Surgical Hx: Appendectomy, cholecystectomy, thyroidectomy Allergies: Penicillins, codeine, dapagliflozin, meperidine, morphine, propoxyphene, topiramate Home medications: Tylenol, albuterol, alprazolam, Vitamin C, baby aspirin, budesonide, buspirone, Vitamin D3, formoterol fumarate, furosemide, gabapentin, insulin aspart, insulin degludec, levothyroxine, losartan, melatonin, metoprolol, montelukast, pantoprazole, KCl, revefenacin, sildenafil, simvastati n, trazodone, venlafaxine, zinc Social Hx: Denies tobacco, alcohol, or illicit drug use Family Hx: -Father: diabetes mellitus, HTN, PA. -Mother: HTN, PA ROS: -Negative: Head ache, chest pain, nausea, vomiting, constipation, diarrhea, paresthesias -Positive: SOA - mild at rest and moderate with exertion, generalized weakness, LLQ abdominal pain, intermittent left flank pain Labs: K 5.1, BUN 40, Cr 1.49, BNP 1547.6 (on 01/13) Exam: -Vital signs: T 36.8, HR 86, RR 16, SpO2 93% with 4L NC -General: Alert, calm, resting in recliner -Cardiovascular: distant heart sounds, RRR -Pulmonary: expiratory wheezing of left upper posterior lung field, decreased b reath sounds throughout -Gastrointestinal: bowel sounds present, LUQ and LLQ tenderness with palpation -Lower extremity: mild edema bilaterally A/P: 1. In-patient rehabilitation to recover from recent CHF exacerbation to return home to receive hospice care. PT and OT services 2. Appreciate plan from Cardiology for cardiac and renal management 3. Behavioral health/social work consultation to prepare patient for hospice care 4. Hyperkalemia; hold K supplementation DEYA BAILEY DO 01/15/222101: Supervisory-Addendum Brief Verification & Attestation Participated in pt care: history, MDM, physical Personally performed: exam, history, MDM, supervision of care Care discussed with: Medical Student Procedures: n/a Results interpretation: Verified all documentation Verification and Attestation of Medical Student E/M Service A medical student performed and documented this service in my presence. I reviewed and verified all information documented by the medical student and made modifications to such information, when appropriate. I personally performed the physical exam and medical decision making. Deya Bailey, Jan 15, 2022,21:02 REJI DUARTE Jan 15, 2022 12:07 DEYA BAILEY DO Jan 15, 2022 21:02
== END 2022-01-15 13:30 | DRG 291 ==
LOC: EDUNIT# 12:02 → ER 12:03 → 4TH 14:20
PROVIDERS: ADMIT Internal Medicine; ATTEND Internal Medicine
DX: I13.0 Hypertensive heart and chronic kidney disease with heart failure and stage 1 through stage 4 chronic kidney disease, or unspecified chronic kidney disease (principal); I50.33 Acute on chronic diastolic (congestive) heart failure; J96.21 Acute and chronic respiratory failure with hypoxia; Z68.42 Body mass index [BMI] 45.0-49.9, adult; J44.9 Chronic obstructive pulmonary disease, unspecified; F41.9 Anxiety disorder, unspecified; F32.A Depression, unspecified; K21.9 Gastro-esophageal reflux disease without esophagitis; E03.9 Hypothyroidism, unspecified; Z79.82 Long term (current) use of aspirin; Z79.4 Long term (current) use of insulin; E11.22 Type 2 diabetes mellitus with diabetic chronic kidney disease; I05.0 Rheumatic mitral stenosis; I25.10 Atherosclerotic heart disease of native coronary artery without angina pectoris; I27.20 Pulmonary hypertension, unspecified; G47.30 Sleep apnea, unspecified; Z79.899 Other long term (current) drug therapy; S30.1XXA Contusion of abdominal wall, initial encounter; T45.515A Adverse effect of anticoagulants, initial encounter; E78.2 Mixed hyperlipidemia; N18.32 Chronic kidney disease, stage 3b; E66.01 Morbid (severe) obesity due to excess calories
CPT/HCPCS: 36415; 51702; 71045; 71046; 76705; 80053; 82947; 83880; 84484; 85025; 93005; 94640; 94760

== ENCOUNTER 2022-01-15 09:32 | Inpatient (IN) | payer MEDICARE, OTHER ==
[~2022-01-15] VITALS: Ht 162.6 cm; Wt 115.2 kg
--- NOTE | 2022-01-15 13:35 | Occupational Therapy Eval ---
OT Evaluation-General/PLF Medical Diagnosis Admission Date Medical Diagnosis: CHF myopathy Onset Date: Jan 13, 2022 Therapy Diagnosis Therapy Diagnosis: decreased activity tolerance, weakness Height/Weight Height (Feet): 5 Height (Inches): 4.00 Weight (Pounds): 246 Weight (Ounces): 6.0 Referral Physician: Maxwell Kaur Reason: Evaluation/Treatment Medical History Pertinent Medical History: CAD, COPD, DM, GERD, HTN, Neuropathy Additional Medical History CHF, COPD, DM, CKD stage 3, hyperlipidemia, HTN, CAD, anxiety/depression Current History Admit with CHF exacerbation, transferred to ARU 01/15/22. Pt has been admitted to hospital multiple times in last couple of months. Social History Home: Single Level Current Living Status: Alone Entry Into Home: Stairs With Railing Steps Into Home: 2 ADL-Prior Level of Function SCALE: Activities may be completed with or without assistive devices. 3-Eellejuznl-ivlgifs completes the activity by him/herself with no assistance from a helper. 5-Set-up or Clean-up Assistance-helper sets up or cleans up; patient completes activity. [place] assists only prior to or following the activity. 4-Supervision or Touching Assistance-helper provides verbal cues and/or touching/steadying and/or contact guard assistance as patient completes activity. Assistance may be provided throughout the activity or intermittently. 3-Partial/Moderate Assistance-helper does LESS THAN HALF the effort. [place] lifts, holds or supports trunk or limbs, but provides less than half the effort. 2-Substantial/Maximal Assistance-helper does MORE THAN HALF the effort. [place] lifts or holds trunk or limbs and provides more than half the effort. 9-Dbupsdmez-wbnmhu does ALL the effort. Patient does none of the effort to complete the activity. Or, the assistance of 2 or more helpers is required for the patient to complete the activity. If activity was not attempted, code reason: 7-Patient Refused. 9-Not Applicable-not attempted and the patient did not perform the activity before the current illness, exacerbation or injury. 10-Not Attempted due to Environmental Limitations-(lack of equipment, weather restraints, etc.). 88-Not Attempted due to Medical Conditions or Safety Concerns. ADL PLOF Comments Pt states she uses a quad cane inside the house and w/c outside of the house at PLOF. She typically completes ADLs independently, but she does have a friend come over to assist with groceries, sponge bath and other tasks as needed. She only completes sponge baths due to SOB with activity. She has AE for LE dressing/footwear. Self Care: Needed Some Help Functional Cognition: Independent DME/Equipment: Bath Bench, Grab Bars, Reachers, Sock Aid, Tub/Shower OT Current Status Subjective Pt in recliner, agreeable to OT tx. Pt reports anxiousness about her situation. Mental Status/Objective Patient Orientation: Person, Place, Time, Situation Attachments: Oxygen (4L) Current Hand Dominance: Right Upper Extremity ROM WFL Upper Extremity Coordination WFL Upper Extremity Sensation Pt reports some tingling in L forearm and hand. She believes this is related to carpal tunnel Upper Extremity Strength grossly 3+/5 ADL-Treatment Eating (QC): 6 (IND per pt report.) Oral Hygiene (QC): 4 (Per clincial judgment, SBA) Shower/Bathe Self (QC): 10 (Not tested due to time constraint of evaluation. Please refer to follow up OT tx note for score.) Upper Body Dressing (QC): 10 (Not tested due to time constraint of evaluation. Please refer to follow up OT tx note for score.) Lower Body Dressing (QC): 10 (Not tested due to time constraint of evaluation. Please refer to follow up OT tx note for score.) On/Off Footwear (QC): 3 (Per clincial judgment, pt would require mod A without AE. Pt uses sock aide at home.) Toileting Hygiene (QC): 4 (Per clincial judgment, SBA required.) Other Treatments Pt in recliner, agreeable to OT Tx. Pt transferred from recliner to w/c using FWW, SBA. Pt able to manage O2 line during transfer. Pt transferred from 4th floor to ARU. Pt provided information about PLOF and home set up and participated in UE screen. Education OT Patient Education: Correct positioning, Energy conservation, Modified ADL techniques, Progress toward Goal/Update tx plan, Purpose of tx/functional activities Teaching Recipient: Patient Teaching Methods: Discussion Response to Teaching: Verbalize Understanding BIMS CAM BIMS Expression of Ideas and Wants: Without Difficulty Understanding Verbal Content: Understands IRF TANIA BIMS: IRF TANIA BIMS Response (Comments) Value Repitition of Three Words Three 3 Recalls Socks Yes, No Cue Required 2 Recalls Blue Yes, No Cue Required 2 Recalls Bed Yes, No Cue Required 2 Year Correct 3 Month Accurate Within 5 Days 2 Day Correct 1 Total [address] Mental [address] No CAM Mental Status Change/Baseline: 0 Inattention: 0 Disorganized thinkin Altered level of consciousness: 0 OT Short Term Goals Short Term Goals Time Frame: Jan 24, 2022 Shower/bathe self: 5 Upper body dressin Lower body dressin Putting on/taking off footwear: 5 OT Aircraft Cylinder Mechanic Goals Shelter Goals Time Frame: Feb 07, 2022 Acute change in mental status: 0 Inattention: 0 Disorganized thinkin Altered level of consciousness: 0 Eating (QC): 6 Oral Hygiene (QC): 6 Toileting Hygiene (QC): 6 Shower/Bathe Self (QC): 6 Upper Body Dressing (QC): 6 Lower Body Dressing (QC): 6 On/Off Footwear (QC): 6 Additional Goals: 1-Demonstrate ADL Tasks, 2-Verbalize Understanding, 3- ImproveStrength/Lola 1=Demonstrate adherence to instructed precautions during ADL tasks. 2=Patient will verbalize/demonstrate understanding of assistive devices/modifications for ADL. 3=Patient will improve strength/tolerance for activity to enable patient to perform ADL's. OT Education/Plan Problem List/Assessment Assessment: Decreased Activ Tolerance, Decreased UE Strength Discharge Recommendations Plan/Recommendations: Continue POC Treatment Plan/Plan of Care Patient would benefit from OT for education, treatment and training to promote independence in ADL's, mobility, safety and/or upper extremity function for ADL's. Plan of Care: ADL Retraining, Functional Mobility, Group Exercise/Act as Ind, UE Funct Exercise/Act Treatment Duration: Feb 07, 2022 Frequency: At least 5 of 7 days/Wk (IRF) Estimated Hrs Per Day: 1.5 hours per day Agreement: Yes Rehab Potential: Good Time Start Time: 13:20 Stop Time: 13:40 DATE: Jan 15, 2022 Total Time Billed (hr/min): 20 Billed Treatment Time 1, POOJASABRINA LERNER OT Jan 15, 2022 13:35
--- OUTSIDE RECORDS SUMMARY | 2022-01-15 13:40 | XMS REPORT | Clinical Summary ---
Author Author [facility] Organization [facility] Address Unknown Phone Unavailable Care Team Providers Care Security Alarm Technician Name Role Phone PCP Unavailable Allergies Not on File Medications Not on file Active Problems Not on file Social History Date Tobacco Use Types Packs/Day Years Used Smoking Tobacco: Never Assessed Sex Assigned at Date Recorded Not on file Last Filed Vital Signs Not on file Plan of Treatment Not on file Results Not on filefrom Last 3 Months
--- NOTE | 2022-01-15 14:31 | Physical Therapy Evaluation ---
PT Evaluation-General Medical Diagnosis Admission Date Jan 15, 2022 at 13:20 Medical Diagnosis: CHF myopathy Onset Date: Jan 13, 2022 Therapy Diagnosis Therapy Diagnosis: Gait deficit, strength deficit Height/Weight Height (Feet): 5 Height (Inches): 4.00 Weight (Pounds): 246 Weight (Ounces): 6.0 Precautions Precautions/Isolations: Fall Prevention Weight Bear Status Right Lower Extremity: Right Full Weight Bearing Left Lower Extremity: Left Full Weight Bearing Referral Physician: Maxwell Reason for Referral: Evaluation/Treatment Medical History Pertinent Medical History: CAD, COPD, DM, GERD, HTN, Neuropathy Reviewed History: Yes Social History Home: Single Level Current Living Status: Alone Entry Into Home: Stairs With Railing PT Steps Into Home: 2 Prior Prior Level of Function SCALE: Activities may be completed with or without assistive devices. 6-Bpczkvoeya-awphqli completes the activity by him/herself with no assistance from a helper. 5-Set-up or Clean-up Assistance-helper sets up or cleans up; patient completes activity. [place] assists only prior to or following the activity. 4-Supervision or Touching Assistance-helper provides verbal cues and/or touching/steadying and/or contact guard assistance as patient completes activity. Assistance may be provided throughout the activity or intermittently. 3-Partial/Moderate Assistance-helper does LESS THAN HALF the effort. [place] lifts, holds or supports trunk or limbs, but provides less than half the effort. 2-Substantial/Maximal Assistance-helper does MORE THAN HALF the effort. [place] lifts or holds trunk or limbs and provides more than half the effort. 7-Zrnjhnfjz-odfpbh does ALL the effort. Patient does none of the effort to complete the activity. Or, the assistance of 2 or more helpers is required for the patient to complete the activity. If activity was not attempted, code reason: 7-Patient Refused. 9-Not Applicable-not attempted and the patient did not perform the activity before the current illness, exacerbation or injury. 10-Not Attempted due to Environmental Limitations-(lack of equipment, weather restraints, etc.). 88-Not Attempted due to Medical Conditions or Safety Concerns. Bed Mobility: 6 Transfers (B,C,W/C): 6 Gait: 6 Stairs: 6 Indoor Mobility (Ambulation): Independent Stairs: Independent Prior Devices Use: Walker PT Evaluation-Current Subjective Patient sitting in w/c with OT finishing evaluation and patients friend in the room upon PT arrival, agreeable to treatment. Patient rates pain at 4/10 currently in her left abdomen, flank and back. Pain Section J - Health Conditions 1. Rarely or not at all 2. Occasionally 3. Frequently 4. Almost constantly 8. Unable to answer Pain Effect on Sleep: 2 Pain Interference with Therapy: 2 Pain Interference w/Day-to-Day: 2 Objective Patient Orientation: Person, Place, Time, Situation Attachments: Oxygen ROM/Strength ROM Lower Extremities WFLs for patients PLOF; limited in hips by adipose tissue Strength Lower Extremities 3/5 all planes bilaterally Sensory Vision: Functional Hearing: Functional Hand Dominance: Right Sensation Right Lower Extremit: Intact Sensation Left Lower Extremity: Intact Transfers Roll Left & Right (QC): 4 Sit to Lying (QC): 4 Lying to Sitting/Side of Bed(Q: 4 Sit to Stand (QC): 4 Chair/Qgb-oz-Mxusl Xfer(QC): 4 Toilet Transfer (QC): 4 Car Transfer (QC): 4 Gait Does the Patient Walk?: Yes Mode of Locomotion: Walk Anticipated Mode of Locomotion: Walk Walk 10 feet (QC): 4 Walk 50 ft with 2 Turns(QC): 3 Walk 150 ft (QC): 88 Walking 10ft/uneven surface-QC: 4 Distance: 100 feet Gait Assistive Device: FWW Wheelchair Training Does the Pt Use a Wheelchair?: No Wheel 50 ft with 2 turns (QC): 9 Wheel 150 ft (QC): 9 Stairs #of Steps: 12 1 Step (curb) (QC): 3 4 Steps (QC): 3 12 Steps (QC): 3 Balance Sitting Static: Good Sitting Dynamic: Good Standing Static: Fair Standing Dynamic: Poor Picking up an Object (QC): 3 Assessment/Needs Patient tolerated PT evaluation and treatment fair. Requires frequent rest breaks due to reports of shortness of breath. Patient on 4 L O2 via nasal cannula. Patient performs all bed mobility with SBA, transfers with min/CGA. Patient ambulates 50 feet to the stairs with FWW, with CGA and person following with w/c and O2. Patient ascends/descends 3 steps x 4 with bilateral handrails, with min A and verbal cues for safety and performance. Patient ambulates 100 feet with FWW with CGA and and person following with w/c and O2 to room. Patient to begin showering with OT. Rehab Potential: Fair PT Correction Goals Correction Goals PT Rail Director Goals Time Frame: Feb 08, 2022 Roll Left to Right (QC): 6 Sit to Lying (QC): 6 Lying-Sitting on Side/Bed(QC): 6 Sit to Stand (QC): 6 Chair/Glu-ti-Pxonk Xfer(QC): 6 Toilet/Commode Transfer (QC): 6 Car Transfer (QC): 6 Does the Patient Walk: Yes Walk 10 feet (QC): 6 Walk 10ft-Uneven Surface(QC): 6 Walk 50ft with 2 Turns (QC): 6 Walk 150 ft (QC): 6 Does the Pt use WC or Scooter?: No Wheel 50 feet with 2 turns (QC: 9 Wheel 150 feet: 9 1 Step (curb) (QC): 6 4 Steps (QC): 6 12 Steps (QC): 6 Picking up an Object (QC): 6 PT Plan Problem List Problem List: Activity Tolerance, Functional Strength, Safety, Balance, Gait, Transfer, Bed Mobility, ROM Treatment/Plan Treatment Plan: Continue Plan of Care Treatment Plan: Bed Mobility, Education, Functional Activity Lola, Functional Strength, Group Therapy, Gait, Safety, Therapeutic Exercise, Transfers Treatment Duration: Mar 08, 2022 Frequency: At least 5 of 7 days/Wk (IRF) Estimated Hrs Per Day: 1.5 hours per day Patient and/or Family Agrees t: Yes Safety Risks/Education Patient Education: Gait Training, Transfer Techniques, Steps Teaching Recipient: Patient, Family Teaching Methods: Demonstration, Discussion Response to Teaching: Verbalize Understanding, Return Demonstration Time Time In: 1340 Time Out: 1410 DATE: Jan 15, 2022 Total Billed Treatment Time: 30 Total Billed Treatment Visit, EVm (10), Gait (20) PT Eval [id number] Co-Treat with OT [id number] KARTHIK PAIZ PT Jan 15, 2022 14:31
--- NOTE | 2022-01-15 14:32 | Occupational Ther Daily Note ---
OT Current Status-Daily Note Subjective Took over pt from OTR/L. Pt agrees to therapy. No c/o pain. Co-treat with PT [id number], skills of 2 clinicians required to decrease fall risk, increase activity tolerance, increase overall strength for daily functional tasks. PT focusing on transfers, ambulation and B LE strength while OT focusing on ADLs, functional mobility and B UE strengthening. Mental Status/Objective Patient Orientation: Person, Place, Time, Situation Attachments: IV (midline), Oxygen (4L) ADL-Treatment Pt SBA for toilet transfers with FWW. Pt SBA to ambulate with FWW to shower and transfer to shower bench. Patient doffed socks independently. Pt showered upper body, upper legs and jose david area by self after set up. Pt provided long handled sponge for lower legs/feet. Pt donned upper body by self after set up. Pt required assist to lace feet through underwear and pants. Pt SBA for sit to stand transfer to hike pants over hip. Pt bent over to grasp pants and hiked over hips independently. Pt transferred with FWW to w/c for rest break due to fatigue and SOA. Pt unable to reach feet to don socks due to fatigue and increased SOA with bending over. Skilled demonstration provided for proper use of sock aide. Pt required sock aide to don socks, R sock by self and required assistance for L sock. Pt transfer to sink and stood to perform oral hygiene, SBA. Pt transferred to w/c to propel to recliner. Pt SBA to transfer to recliner. Therapy Code Descriptions/Definitions Functional [place] Measure: 0=Not Assessed/NA 4=Minimal Assistance 1=Total Assistance 5=Supervision or Setup 2=Maximal Assistance 6=Modified [place] 3=Moderate Assistance 7=Complete IndependenceSCALE: Activities may be completed with or without assistive devices. 4-Rhmsqdbezh-onrgtzk completes the activity by him/herself with no assistance from a helper. 5-Set-up or Clean-up Assistance-helper sets up or cleans up; patient completes activity. [place] assists only prior to or following the activity. 4-Supervision or Touching Assistance-helper provides verbal cues and/or touch ing/steadying and/or contact guard assistance as patient completes activity. Assistance may be provided throughout the activity or intermittently. 3-Partial/Moderate Assistance-helper does LESS THAN HALF the effort. [place] lifts, holds or supports trunk or limbs, but provides less than half the effort. 2-Substantial/Maximal Assistance-helper does MORE THAN HALF the effort. [place] lifts or holds trunk or limbs and provides more than half the effort. 0-[place]-txrjla does ALL the effort. Patient does none of the effort to complete the activity. Or, the assistance of 2 or more helpers is required for the patient to complete the activity. If activity was not attempted, code reason: 7-Patient Refused. 9-Not Applicable-not attempted and the patient did not perform the activity before the current illness, exacerbation or injury. 10-Not Attempted due to Environmental Limitations-(lack of equipment, weather restraints, etc.). 88-Not Attempted due to Medical Conditions or Safety Concerns. Oral Hygiene (QC): 6 Shower/Bathe Self (QC): 5 Upper Body Dressing (QC): 5 Lower Body Dressing (QC): 3 On/Off Footwear: 3 Toileting Hygiene (QC): 6 Toilet Transfer (QC): 4 Pt took an extended amount of time to complete all task due to SOA and fatigue. Pt reminded she must ask for help to walk to the bathroom. Pt concerned she will not make it before nursing arrives to room. BSC provided. Other Treatment Pt performed 20 reps of resistance green therapy sponge exercises to improve airfield defence guard strength. Pt performed 10 reps of 5 different BUE exercises with light resistance band to improve UE strength for self care skills and mobility. Pt required break in between reps due to fatigue and SOA. Skilled demonstration provided for all exercises for proper technique and positioning. Education OT Patient Education: Home exercise program, Modified ADL techniques Teaching Recipient: Patient, Friend Teaching Methods: Demonstration, Discussion Response to Teaching: Verbalize Understanding, Return Demonstration, Reinforcement Needed OT Short Term Goals Short Term Goals Time Frame: Jan 24, 2022 Shower/bathe self: 5 Upper body dressin Lower body dressin Putting on/taking off footwear: 5 OT Halfway Goals Halfway Goals Time Frame: Feb 07, 2022 Acute change in mental status: 0 Inattention: 0 Disorganized thinkin Altered level of consciousness: 0 Eating (QC): 6 Oral Hygiene (QC): 6 Toileting Hygiene (QC): 6 Shower/Bathe Self (QC): 6 Upper Body Dressing (QC): 6 Lower Body Dressing (QC): 6 On/Off Footwear (QC): 6 Additional Goals: 1-Demonstrate ADL Tasks, 2-Verbalize Understanding, 3-Im proveStrength/Lola 1=Demonstrate adherence to instructed precautions during ADL tasks. 2=Patient will verbalize/demonstrate understanding of assistive devices/modifications for ADL. 3=Patient will improve strength/tolerance for activity to enable patient to perform ADL's. OT Education/Plan Problem List/Assessment Assessment: Decreased Activ Tolerance, Decreased UE Strength, Impaired I ADL's, Impaired Self-Care Skills Discharge Recommendations Plan/Recommendations: Continue POC Treatment Plan/Plan of Care Patient would benefit from OT for education, treatment and training to promote independence in ADL's, mobility, safety and/or upper extremity function for ADL's. Plan of Care: ADL Retraining, Functional Mobility, Group Exercise/Act as Ind, UE Funct Exercise/Act Treatment Duration: Feb 07, 2022 Frequency: At least 5 of 7 days/Wk (IRF) Estimated Hrs Per Day: 1.5 hours per day Agreement: Yes Rehab Potential: Good Time Start Time: 13:50 Stop Time: 15:00 DATE: Jan 15, 2022 Total Time Billed (hr/min): 70 Billed Treatment Time 1 visit-ADL 3 (40 min) FA 1 (10 min) EX (10 Min) co-treat with PT [id number] ([id number] PT, [id number] SENIOR SCHEDULER) IVETH COSTELLO Jan 15, 2022 14:31
--- NOTE | 2022-01-15 15:08 | PM&R Post Admission Assessment ---
PM&R Date of Visit: Jan 15, 2022 Time of Visit: 15:00 History of Present Illness CC: CHF myopathy HPI: This is a 66yoWF complicated clinic patient of mine who has severe anxiety and severe CHF with pulmonary HTN who presents to the ARU in need of strengthening due to multiple hospital stays for AECHF. Patient willing to enroll into Hospice at [facility]. O2 maintained at 4L/min and diuresis will continue to Bumex IV. Patient is a 66 year old woman admitted for CHF exacerbation.She was recently discharged from the hospital on 01/06 after being admitted for acute volume overload. She states that for the 4-5 before she arrived in the ER she has been experiencing progressively worsening SOB and swelling. She takes furosemide for her heart failure, typically 40 mg but states that she sometimes takes 80 or 120 mg but hadn't noticed any improvement before seeking care in the emergency department. PMH of CHF, COPD, HTN, Type II Diabetes, stage III kidney failure, hyperlipidemia, pulmonary hypertension, CAD, sleep apnea, anxiety, depression. Upon arrival she was found to have a BNP of 1547 and IV diuresis was initiated. Initial chest x-ray showed cardiomegaly with pulmonary vascular congestion, f indings highly suggestive of congestive heart failure. No appreciable effusion. The was then transferred to general admission for continued treatment. Over the following days her SOB and swelling have continued to improve and Bumex was started for greater diuresis in the setting of extensive fluid overload. She states that she is feeling okay this morning. Notes that her breathing has improved since yesterday but her SOB is still present. Indicates a minor headache, continued left-sided abdominal pain, and swelling in her legs. Denies nausea, vomiting, chest pain, constipation, or diarrhea. Has no new concerns but is interested in trying inpatient rehab before moving to home hospice care. She is being transferred down to rehab this afternoon for further treatment. Upon interview she was still anxious and tearful when speaking about her condition but seems to have strong family suppor t to help her through her predicament. CC: Ms. Taveras is a 66 year old female who presents to the in-patient rehabilitation unit. Plan for patient is to rehabilitate to return home where she will receive hospice care. HPI: Patient is transferring from [facility] fourth floor. Patient was admitted to [facility] on 01/13/22 for CHF exacerbation. The patient's past medical history is significant for heart failure and recent hospitalization for acute volume o verload. The patient desires to rehabilitate to a state where she can return home and receive hospice care. Patient states she is tolerating PO food and drink, is ambulating with walker and assistance, and recently had her urinary catheter removed. Patient states her last BM was this morning and denies having urinated since having the catheter removed. Patient states overall she feels as though she is improving. Patient denies current questions or concerns regarding in-patient rehabilitation. PMHx: CHF, COPD, HTN, T2 DM, Stage III CKD, HLD, pulmonary HTN, CAD, sleep apnea, anxiety, depression Surgical Hx: Appendectomy, cholecystectomy, thyroidectomy Allergies: Penicillins, codeine, dapagliflozin, meperidine, morphine, propoxyphene, topiramate Home medications: Tylenol, albuterol, alprazolam, Vitamin C, baby aspirin, budesonide, buspirone, Vitamin D3, formoterol fumarate, furosemide, gabapentin, insulin aspart, insulin degludec, levothyroxine, losartan, melatonin, metoprolol, montelukast, pantoprazole, KCl, revefenacin, sildenafil, simvastatin, trazodone, venlafaxine, zinc Social Hx: Denies tobacco, alcohol, or illicit drug use Family Hx: -Father: diabetes mellitus, HTN, [place]. -Mother: HTN, [place] ROS: -Negative: Head ache, chest pain, nausea, vomiting, constipation, diarrhea, paresthesias -Positive: SOA - mild at rest and moderate with exertion, generalized weakness, LLQ abdominal pain, intermittent left flank pain Labs: K 5.1, BUN 40, Cr 1.49, BNP 1547.6 (on 01/13) Exam: -Vital signs: T 36.8, HR 86, RR 16, SpO2 93% with 4L NC -General: Alert, calm, resting in recliner -Cardiovascular: distant heart sounds, RRR -Pulmonary: expiratory wheezing of left upper posterior lung field, decreased breath sounds throughout -Gastrointestinal: bowel sounds present, LUQ and LLQ tenderness with palpation -Lower extremity: mild edema bilaterally A/P: 1. In-patient rehabilitation to recover from recent CHF exacerbation to return home to receive hospice care. PT and OT services 2. Appreciate plan from Cardiology for cardiac and renal management 3. Behavioral health/social work consultation to prepare patient for hospice care 4. Hyperkalemia; hold K supplementation Past Kdcyokm-Eihptb-Bjlbko Hx Past Med/Social Hx: Reviewed Nursing Past Med/Soc Hx, Reviewed and Corrections made Patient Social History Marrital Status: single Employed/Student: retired Alcohol Use: Denies Use Smoking Status: Never a Smoker 2nd Hand Smoke Exposure: No Recent Hopitalizations: Yes Immunizations Up To Date Tetanus Booster (TDap): Unknown Date of Pneumonia Vaccine: Feb 05, 2017 Date of Influenza Vaccine: Dec 05, 2021 Seasonal Allergies Seasonal Allergies: No Past Medical History Surgeries: Appendectomy, Gallbladder, Orthopedic, Thyroidectomy Currently Using CPAP: No Currently Using BIPAP: No Cardiac: Cardiomyopathy, Chronic Edema/Swelling, Coronary Artery Disease, High Cholesterol, Hypertension Neurological: Neuropathy 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: No Sexually Transmitted Disease: No HIV/AIDS: No Female 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 Disorders: Denies Menopausal Genitourinary: UTI-Chronic Gastrointestinal: Colitis, Gastroesophageal Reflux, Chronic Constipation, Hemorrhoids, Gall Bladder Disease Musculoskeletal: Degenerate Disk Disease, Arthritis Endocrine: Diabetes, Insulin dep, Hypothyroidsim HEENT: Cataract Loss of Vision: Bilateral Hearing Impairment: Denies Psychosocial: Anxiety, Depression History of Blood Disorders: Yes (ANEMIA) Adverse Reaction to Blood Anthony: No Family History Alzheimer's disease G8 SISTER Diabetes mellitus 19 FATHER Hypertension 19 FATHER 19 MOTHER Myocardial infarction 19 FATHER 19 MOTHER Neoplasm G8 SISTER No Pertinent Family Hx Noncontributory Prior Level of Function Bed Mobility: 6 Transfers: 6 Gait: 6 Stairs: 6 Indoor Mobility (Ambulation): Independent Stairs: Independent Prior Devices Use: Walker Self Care: Needed Some Help Functional Cognition: Independent 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 [employer] Current Level of Fuctioning Roll Left to Right: 4 Sit to Lyin Lying to Sitting/Side of Bed: 4 Sit to Stand: 4 Chair/Rkn-pw-Kabyg Xfer: 4 Car Transfer: 4 Does the Patient Walk: Yes Mode of Locomotion: Walk Anticipated Mode of Locomotion: Walk Walk 10 feet: 4 Walk 50 ft with 2 Turns: 3 Walk 150 ft: 88 Walking 10ft on uneven surface: 4 Gait Assistive Device: FWW Does the Pt Use a Wheelchair: No Wheel 50 ft with 2 turns: 9 Wheel 150 ft: 9 #of Steps: 12 1 Step (curb): 3 4 Steps: 3 12 Steps: 3 Picking up an Object: 3 Eatin (IND per pt report.) Oral Hygiene: 4 (Per clincial judgment, SBA) Shower/Bathe Self: 10 (Not tested due to time constraint of evaluation. Please refer to follow up OT tx note for score.) Upper Body Dressin (Not tested due to time constraint of evaluation. Please refer to follow up OT tx note for score.) Lower Body Dressin (Not tested due to time constraint of evaluation. Please refer to follow up OT tx note for score.) On/Off Footwear: 3 (Per clincial judgment, pt would require mod A without AE. P t uses sock aide at home.) Toileting Hygiene: 4 (Per clincial judgment, SBA required.) PM&R Allergy/Meds/Data Review Allergies Coded Allergies: Penicillins (Verified Allergy, Unknown, VOMITING, 12/09/21) meperidine (Verified Allergy, Unknown, VOMITING, 12/09/21) morphine (Unverified Allergy, Unknown, RASH, BREATHING DIFFICULTY, 12/09/21) propoxyphene (Verified Allergy, Unknown, 12/09/21) topiramate (Verified Allergy, Unknown, LOSS OF EYESIGHT, 12/09/21) codeine (Verified Adverse Reaction, Unknown, UPSET STOMACH, 12/09/21) dapagliflozin (Verified Adverse Reaction, Unknown, yeast infection, 12/09/21) Home Medications Scheduled Ascorbate Calcium (Vitamin C), 500 MG PO DAILY, (Reported) Aspirin (Aspirin EC), 81 MG PO DAILY, (Reported) Budesonide (Budesonide), 0.5 MG IH BID, (Reported) Buspirone HCl (Buspirone HCl), 5 MG PO BID, (Reported) Cholecalciferol (Vitamin D3) (Vitamin D3), 125 MCG PO DAILY, (Reported) Formoterol Fumarate (Perforomist), 20 MCG IH BID, (Reported) Furosemide (Furosemide), 40 MG PO DAILY@0700,1200 Gabapentin (Neurontin), 300 MG PO QID, (Reported) Insulin Aspart (Insulin Aspart Flexpen), 6 UNIT SQ DAILY, (Reported) Insulin Degludec (Tresiba Flextouch U-200), 30 UNITS SC BID, (Reported) Levothyroxine Sodium (Levothyroxine Sodium), 125 MCG PO DAILY, (Reported) Losartan Potassium (Losartan Potassium), 50 MG PO DAILY, (Reported) Melatonin (Melatonin), 3 MG PO HS, (Reported) Metoprolol Succinate (Metoprolol Succinate), 25 MG PO DAILY, (Reported) Montelukast Sodium (Montelukast Sodium), 10 MG PO HS, (Reported) Pantoprazole Sodium (Pantoprazole Sodium), 40 MG PO DAILY, (Reported) Potassium Chloride (Potassium Chloride), 10 MEQ PO DAILY, (Reported) Revefenacin (Yupelri), 175 MCG IH 1200, (Reported) Sildenafil Citrate (Sildenafil), 20 MG PO TID, (Reported) Simvastatin (Simvastatin), 10 MG PO HS, (Reported) Trazodone HCl (Trazodone HCl), 150 MG PO HS, (Reported) Venlafaxine HCl (Venlafaxine HCl ER), 150 MG PO DAILY, (Reported) Zinc Amino Acid Chelate (Zinc), 50 MG PO DAILY, (Reported) Scheduled PRN Acetaminophen (Tylenol Extra Strength), 1,000 MG PO BID PRN for PAIN-MILD, (Reported) Albuterol Sulfate (Ventolin Hfa), 2 PUFF INH Q6H PRN for SHORTNESS OF BREATH, (Reported) Alprazolam (Alprazolam), 0.5 MG PO BID PRN for ANXIETY, (Reported) Promethazine HCl (Promethazine Tablet), 25 MG PO Q6H PRN for NAUSEA/VOMITING-2ND LINE, (Reported) Current Medications Current Medications Reviewed Review of Systems Constitutional: see HPI, malaise, weakness EENTM: no symptoms reported Respiratory: dyspnea on exertion, short of breath, wheezing Cardiovascular: edema Gastrointestinal: abdominal pain, loss of appetite, nausea Genitourinary: no symptoms reported Musculoskeletal: back pain, joint pain Skin: no symptoms reported Psychiatric/Neurological: Anxiety, Depressed All Other Systems Reviewed Negative Unless Noted: Yes Physical Exam Physical Exam Vital Signs Capillary Refill : Height, Weight, BMI Height: 5'4.00" Weight: 246lbs. 6.0oz. 111.844162yd; 97.04 BMI Method:Stated General Appearance: WD/WN, Anxious, Chronically ill, Mild Distress, Obese Eyes: Bilateral Eye Normal Inspection, Bilateral Eye PERRL HEENT: PERRL/EOMI, Normal ENT Inspection, Pharynx Normal Neck: Full Range of Motion, Normal Inspection, Non Tender, Supple, Carotid Bruit Respiratory: Chest Non Tender, No Respiratory Distress, Accessory Muscle Use, Decreased Breath Sounds, Wheezing Cardiovascular: Regular Rate, Rhythm, No Gallop, No JVD, No Murmur, Normal Peripheral Pulses Gastrointestinal: Normal Bowel Sounds, No Organomegaly, No Pulsatile Mass, Non Tender, Soft Back: Normal Inspection, No CVA Tenderness, No Vertebral Tenderness Extremity: Normal Capillary Refill, Normal Inspection, Normal Range of Motion, Non Tender, No Calf Tenderness, No Pedal Edema Neurologic/Psychiatric: Alert, Oriented x3, Normal Mood/Affect, mechanical manufacturing engineer II-XII Norm as Tested, Abnormal Gait, Motor Weakness (generalized) Skin: Normal Color, Warm/Dry Lymphatic: No Adenopathy PM&R Medical Assessment & Plan REHAB/MEDICAL ASSESSMENT AND PLAN: REHAB IMPAIRMENT GROUP: CHF myopathy ETIOLOGIC DIAGNOSIS: CHF myopathy The comorbidities that impact the patients function and/or functional outcome by: severe CHF, O2 dependence, CKD, aggressive diuresis, DM insulin dependent REHAB PLAN: The patient is being admitted to our comprehensive inpatient rehabilitation facility and can tolerate the intensity of service consisting of at least: 180 minutes of therapy a day, 5 out of 7 days a week Rehab treatment will consist of: PT OT will focus on regaining function with use of AD in order to return home and enroll into hospice The patient/family has a good understanding of our discharge process and will benefit from an interdisciplinary inpatient rehabilitation program. The patient has potential to make improvement and is in need of at least two of the following multidisciplinary therapies including but not limited to physical, occupational, speech, and prosthetics and orthotics. Additionally the patient will need services from respiratory, nutritional services, wound care, psychology, etc. (Customize this to each patient). Given the patients complex condition and risk of further medical complications, rehabilitation services cannot be safely or effectively provided at a lower level of care such as a intermediate facility. BARRIERS TO DISCHARGE: Severe debility from hypoxia and CHF ESTIMATED LOS: 7 days DISPOSITION: Home RELEVANT CHANGES SINCE PREADMISSION SCREENING: I have compared the patients medical and functional status at the time of the preadmission screening and there are: no changes PROGNOSIS: Fair to poor REHABILITATION GOALS: 1. PT OT will focus on regaining function with use of AD in order to return home and enroll into hospice All the above goals were reviewed with the patient and he/she is in agreement. By signing this document, I acknowledge that I have personally performed a full physical examination on this patient within 24 hours of admission to this inpatient rehabilitation facility and have determined the patient to be able to tolerate the above course of treatment at an intensive level for a reasonable period of time. I will be completing a detailed individualized Plan of Care for this patient by day #4 of the patients stay based upon the Preadmission Screen, the Post-Admission Evaluation, and the therapy evaluations. Admission Dx/Comorbidities: (1) Acute on chronic heart failure with preserved ejection fraction (HFpEF) Status: Acute ICD Codes: I50.33 - Acute on chronic diastolic (congestive) heart failure Assessment/Plan Assessment and Plan Assess & Plan/Chief Complaint Assessment: CHF exacerbation - Given patient's failure to improve with furosemide up to 120 mg, bumetanide has been initiated to attain diuresis. Continue to monitor respiratory symptoms, fluid levels, and kidney function. Continue oxygen via NC. Dr. Quinones was consulted for cardiological management. He does not recommend intervention in the case of her mitral stenosis at this time. He does recommend beginning oral bumetanide or torsemide once appropriate to transition to oral medications. Kidney function is stable, patient SOB and swelling continue to improve. COPD - albuterol sulfate, budesonide, revefenacin Anxiety - alprazolam, buspirone Depression - venlafaxine Mitral stenosis - Cardiology does not recommend intervention at this time Primary hypertension - losartan, metoprolol Hyperlipidemia - atorvastatin initiated Type II DM - insulin aspart, insulin degludec GERD - pantoprazole Hypothyroidism - levothyroxine Bilateral CVA tenderness - kidney function has remained stable since initial labs were taken. Continue monitoring and consider instituting pharmacological treatment if pain worsens Abdominal hematoma - possibly due to lovenox injections, will continue to monitor for changes. Lovenox DCd Hospice care recommended upon discharge. Patient to be transferred to inpatient rehab before transfer to home hospice care Plan: Monitor CHF and O2 levels Monitor creat Fall risk Home meds FERN BAILEY DO Jan 15, 2022 15:08
[2022-01-15] MEDS ORDERED: ACETAMINOPHEN 325 MG TABLET PO PRN ×2 (15:15)
[2022-01-15] MEDS ORDERED: ALPRAZolam 0.25 MG (XANAX) TAB PO PRN (15:15)
[2022-01-15] MEDS ORDERED: BISACODYL 10 MG SUPP (DULCOLAX) PR PRN ×2 (15:15)
[2022-01-15] MEDS ORDERED: HYDROmorphone 2 MG/ML VIAL (DILAUDID) IV PRN (15:15)
[2022-01-15] MEDS ORDERED: LOPERAMIDE 2 MG (IMODIUM) TABLET PO PRN (15:15)
[2022-01-15] MEDS ORDERED: CALCIUM CARBONATE 500 MG (TUMS) TAB.CHEW PO PRN ×2 (15:15)
[2022-01-15] MEDS ORDERED: PROMETHAZINE 25 MG (PHENERGAN) TAB PO PRN (15:15)
[2022-01-15] MEDS ORDERED: guaiFENesin/CODEINE (ROBITUSSIN AC) 10ML UDC PO PRN (15:15)
[2022-01-15] MEDS ORDERED: ONDANSETRON 4 MG/2 ML (SDV) Z0FRAN IV PRN (15:15)
[2022-01-15] MEDS ORDERED: diphenhydrAMINE 25 MG TAB (BENADRYL) PO PRN ×2 (15:15)
[2022-01-15] MEDS ORDERED: MILK OF MAGNESIA 400 MG/5 ML 30 ML UDC PO PRN (15:15)
[2022-01-15] MEDS ORDERED: RT-ALBUTEROL SULF 2.5 MG/3 ML PRE-MIX VIAL INH PRN (15:15)
[2022-01-15] MEDS ORDERED: diphenhydrAMINE 50 MG/ML INJ (BENADRYL) IVP PRN (15:15)
[2022-01-15] MEDS ORDERED: LACTULOSE SYRUP 10GM/15ML (ENULOSE) 30ML UDC PO PRN ×2 (15:15)
[2022-01-15] MEDS ORDERED: polyethylene glycoL POWDER 17 GM (MIRALAX) PACK PO PRN (15:15)
[2022-01-15] MEDS ORDERED: MELATONIN 3 MG TABLET PO PRN (15:15)
[2022-01-15] MEDS ORDERED: DOCUSATE SODIUM 100 MG (COLACE) CAP PO PRN (15:15)
[2022-01-15] MEDS ORDERED: FLEET ENEMA ADULT 1 EA BTL PR PRN (15:15)
[2022-01-15] MEDS ORDERED: ANTACID SUSP 30 ML UDC (MYLANTA) PO PRN (15:15)
[2022-01-15] MEDS ORDERED: ONDANSETRON 4 MG (ZOFRAN) ORAL DISSOLVE TAB PO PRN ×2 (15:15)
--- NOTE | 2022-01-15 15:37 | Physical Therapy Daily Note ---
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 Pt agrees to PT/OT co-treat. Co-treat with OT [id number], skills of 2 clinicians required to decrease fall risk, increase activity tolerance, increase overall strength for daily functional tasks. PT focusing on transfers, ambulation and B LE strength while OT focusing on ADLs, functional mobility and B UE strengthening. Pain Section J - Health Conditions 1. Rarely or not at all 2. Occasionally 3. Frequently 4. Almost constantly 8. Unable to answer Pain Effect on Sleep: 2 Pain Interference with Therapy: 2 Pain Interference w/Day-to-Day: 2 Mental Status Patient Orientation: Person, Place, Situation Attachments: Oxygen (4L), IV (Midline) Transfers SCALE: Activities may be completed with or without assistive devices. 1-Oqyssjodds-swellzn completes the activity by him/herself with no assistance from a helper. 5-Set-up or Clean-up Assistance-helper sets up or cleans up; patient completes activity. [place] assists only prior to or following the activity. 4-Supervision or Touching Assistance-helper provides verbal cues and/or touching/steadying and/or contact guard assistance as patient completes activity. Assistance may be provided throughout the activity or intermittently. 3-Partial/Moderate Assistance-helper does LESS THAN HALF the effort. [place] lifts, holds or supports trunk or limbs, but provides less than half the effort. 2-Substantial/Maximal Assistance-helper does MORE THAN HALF the effort. [place] lifts or holds trunk or limbs and provides more than half the effort. 7-Jpcujjttu-nywcrf does ALL the effort. Patient does none of the effort to complete the activity. Or, the assistance of 2 or more helpers is required for the patient to complete the activity. If activity was not attempted, code reason: 7-Patient Refused. 9-Not Applicable-not attempted and the patient did not perform the activity before the current illness, exacerbation or injury. 10-Not Attempted due to Environmental Limitations-(lack of equipment, weather restraints, etc.). 88-Not Attempted due to Medical Conditions or Safety Concerns. Sit to Stand (QC): 5 Toilet Transfer (QC): 4 Weight Bearing Right Lower Extremity: Right Full Weight Bearing Left Lower Extremity: Left Full Weight Bearing Gait Training Does the Patient Walk?: Yes Distance: 5' Gait Assistive Device: FWW Exercises Seated Therapy Exercises: Ankle pumps, Long arc quads, Hip flexion, Glut set Seated Reps: 15 Treatments Pt SBA for toilet transfers with FWW. Pt SBA to ambulate with FWW to shower and transfer to shower bench. Patient doffed socks independently. Pt showered upper body, upper legs and jose david area by self after set up. Pt provided long handled sponge for lower legs/feet. Pt donned upper body by self after set up. Pt required assist to lace feet through underwear and pants. Pt SBA for sit to stand transfer to hike pants over hip. Pt bent over to grasp pants and hiked over hips independently. Pt transferred with FWW to w/c for rest break due to fatigue and SOA. Pt unable to reach feet to don socks due to fatigue and increased SOA with bending over. Skilled demonstration provided for proper use of sock aide. Pt required sock aide to don socks, R sock by self and required assistance for L sock. Pt transfer to sink and stood to perform oral hygiene, SBA. Pt transferred to w/c to propel to recliner. Pt SBA to transfer to recliner. Pt completes alternating UE & LE EX then OT departs. PT repositions pt to comfort with all needs met, call next to pt. Assessment Current Status: Fair Progress Pt vikash. tx well but needs occasional RB for fatigue. PT Fdc Goals Fdc Goals PT Fdc Goals Time Frame: Feb 08, 2022 Roll Left & Right (QC): 6 Sit to Lying (QC): 6 Lying-Sitting on Side/Bed(QC): 6 Sit to Stand (QC): 6 Chair/Hcs-kz-Hzihg Xfer(QC): 6 Toilet Transfer (QC): 6 Car Transfer (QC): 6 Does the Patient Walk: Yes Walk 10 feet (QC): 6 Walk 50ft with 2 Turns (QC): 6 Walk 150 ft (QC): 6 Walking 10ft on Uneven Surface: 6 1 Step (curb) (QC): 6 4 Steps (QC): 6 12 Steps (QC): 6 Picking up an Object (QC): 6 Does the Pt use WC or Scooter?: No Wheel 50 feet with 2 turns (QC: 9 Wheel 150 feet: 9 PT Plan Problem List Problem List: Activity Tolerance, Functional Strength Treatment/Plan Treatment Plan: Continue Plan of Care Treatment Plan: Bed Mobility, Education, Functional Activity Lola, Functional Strength, Group Therapy, Gait, Safety, Therapeutic Exercise, Transfers Treatment Duration: Mar 08, 2022 Frequency: At least 5 of 7 days/Wk (IRF) Estimated Hrs Per Day: 1.5 hours per day Patient and/or Family Agrees t: Yes Safety Risks/Education Patient Education: Transfer Techniques, Correct Positioning, Safety Issues Teaching Recipient: Patient Teaching Methods: Discussion Response to Teaching: Verbalize Understanding Time Time In: 1410 Time Out: 1510 DATE: Jan 15, 2022 Total Billed Treatment Time: 60 Total Billed Treatment Co-treat w/BRANDON for 50m ([id number]) 1, FA x2 (35m) & EX x2 (25m) FRANCIS JIN PTA Jan 15, 2022 15:37
[2022-01-15] MEDS: inSUlin ASPART (NovoLOG) 1 UNIT/0.01 ML (CHARGE PER UNIT) SC SCH ×2 (16:00→21:00)
[2022-01-15] MEDS: GABAPENTIN 300 MG (NEURONTIN) CAP PO SCH ×2 (17:00→21:13)
[2022-01-15 20:17] VITALS: BP 116/61
[2022-01-15] MEDS: ACETAMINOPHEN 500 MG TAB (TYLENOL) PO PRN (20:34)
[2022-01-15] MEDS ORDERED: SENNA W/DOCUSATE (SENOKOT S) TABLET PO SCH (21:00)
[2022-01-15] MEDS ORDERED: DOCUSATE SODIUM 100 MG (COLACE) CAP PO SCH (21:00)
[2022-01-15] MEDS: busPIRone 5 MG (BUSPAR) TAB PO SCH (21:11)
[2022-01-15] MEDS: BUMETANIDE 1 MG/4 ML (BUMEX) VIAL IV SCH (21:11)
[2022-01-15] MEDS: MONTELUKAST 10 MG (SINGULAIR) TAB PO SCH (21:12)
[2022-01-15] MEDS: AtorvaSTATin TABLET 10 MG TABLET PO SCH (21:12)
[2022-01-15] MEDS: traZODone 50 MG (DESYREL) TAB PO SCH (21:12)
[2022-01-15] MEDS: MELATONIN 3 MG TABLET PO SCH (21:12)
[2022-01-15] MEDS: SILDENAFIL 20 MG (REVATIO) TAB PO SCH (21:13)
[2022-01-15] MEDS: DOCUSATE SODIUM 100 MG (COLACE) CAP PO SCH (21:26)
[2022-01-15] MEDS: SENNOSIDES 8.6 MG (SENOKOT) TAB PO SCH (21:27)
[2022-01-15] MEDS: polyethylene glycoL POWDER 17 GM (MIRALAX) PACK PO SCH (21:27)
[2022-01-15] MEDS: RT-ALBUTEROL SULF 2.5 MG/3 ML PRE-MIX VIAL INH SCH (23:21)
[2022-01-15] MEDS: RT-BUDESONIDE NEBS 0.5 MG/2ML (PULMICORT) AMP IH SCH (23:21)
--- NOTE | 2022-01-16 05:54 | Individualized Plan of Care ---
Individualized Plan of Care Rehab Nursing IPOC Order Admission Date Jan 15, 2022 at 13:20 Current Orders Orders Admission Arrival Bed Request (01/15/22 13:31) Cho 60g/M 0snack (16-2000 Silas) (01/15/22 Lunch) Patient Visit (01/15/22 ) Pt Eval Moderate Complexity (01/15/22 ) Gait Training, Ea 15 Min (01/15/22 ) Admission Order(Inpt,Obs,Sdc) (01/15/22 15:06) Vital Signs: Per Unit Policy ( 08,16,00 (01/15/22 15:06) Keith Hose (01/15/22 15:06) Sequential Compression Device (01/15/22 15:06) Digital Advertising Specialist-Inpt Rehab Con (01/15/22 15:06) Rehab Nursing Orders-Ipoc (01/15/22 15:06) Physical Therapy Rehab Orders (01/15/22 15:06) Occupational Therapy Rehab Ord (01/15/22 15:06) Speech Therapy Rehab Orders (01/15/22 15:06) Cbc With Automated Diff (01/16/22 06:00) Comprehensive Metabolic Panel (01/16/22 06:00) Precautions (Aru) (01/15/22 15:06) Weekly Weight WEEK (01/15/22 15:06) Rehab-Intensity Of Therapy (01/15/22 15:06) Initiate Admission Nursing Pro .admission (01/15/22 15:06) Alprazolam Tablet (Xanax Tablet) (01/15/22 15:15) Calcium Carbonate Chew Tablet (Antacid C (01/15/22 15:15) Diphenhydramine Tablet (Benadryl Tablet) (01/15/22 15:15) Docusate Sodium Capsule (Colace Capsule) (01/15/22 21:00) Docusate Sodium Capsule (Colace Capsule) (01/15/22 15:15) Bisacodyl Suppository (Dulcolax Supposit (01/15/22 15:15) Lactulose Oral Solution (Enulose Oral So (01/15/22 15:15) Na Phos/Na Biphos Enema (Fleet Enema Sander (01/15/22 15:15) Guaifenesin/Codeine Syrup (Robitussin Ac (01/15/22 15:15) Loperamide Tablet (Imodium Tablet) (01/15/22 15:15) Melatonin Tablet (Melatonin Tablet) (01/15/22 15:15) Polyethylene Glycol Powder Pkt (Miralax (01/15/22 21:00) Ondansetron Oral Dissolve Tab (Zofran (01/15/22 15:15) Senna S Tablet (Senokot S Tablet) (01/15/22 21:00) Acetaminophen Tablet/Caplet (Tylenol T (01/15/22 15:15) Code/Resuscitation (01/15/22 15:06) Initiate Admission Nursing Pro .admission (01/15/22 15:06) Accucheck Achs ACHS (01/15/22 15:08) Implanted Port: Access (01/15/22 15:08) Sequential Compression Device (01/15/22 15:08) Ketih Hose (01/15/22 15:08) Cho 60g/M 3snack (16-2000 Silas) (01/15/22 Dinner) (Nf) Revefenacin (Yupelri) (01/16/22 12:00) Alprazolam Tablet (Xanax Tablet) (01/15/22 15:15) Acetaminophen Tablet (Tylenol Tablet) (01/15/22 15:15) Albuterol Pre-Mix Nebs (Rt) (Proventil (01/15/22 15:15) Ascorbic Acid Tablet (Vitamin C Tablet) (01/16/22 08:00) Aspirin Enteric Coated Tablet (Ecotrin T (01/16/22 09:00) Atorvastatin Tablet (Lipitor Tablet) (01/15/22 21:00) Diphenhydramine Injection (Benadryl Inje (01/15/22 15:15) Diphenhydramine Tablet (Benadryl Tablet) (01/15/22 15:15) Budesonide Inhalation Solution (Pulmicor (01/15/22 21:00) Bumetanide Injection (Bumex Injection) (01/15/22 21:00) Cholecalciferol Capsule/Tablet (Vitamin (01/16/22 09:00) Docusate Sodium Capsule (Colace Capsule) (01/15/22 21:00) Bisacodyl Suppository (Dulcolax Supposit (01/15/22 15:15) Lactulose Oral Solution (Enulose Oral So (01/15/22 15:15) Gabapentin Capsule/Tablet (Neurontin Cap (01/15/22 17:00) Hydromorphone Injection (Dilaudid Inject (01/15/22 15:15) Levothyroxine Tablet (Synthroid Tablet) (01/16/22 07:00) Melatonin Tablet (Melatonin Tablet) (01/15/22 21:00) Magnesium Hydroxide Oral Susp (Mom Oral (01/15/22 15:15) Polyethylene Glycol Powder Pkt (Miralax (01/15/22 15:15) Montelukast Tablet (Singulair Tablet) (01/15/22 21:00) Antacid Suspension (Mylanta Suspension (01/15/22 15:15) Insulin Aspart (Novolog) (Novolog (Charg (01/15/22 16:00) Pantoprazole Tablet (Protonix Tablet) (01/16/22 07:00) Potassium Chloride (Tablet) (Klor Con Ta (01/16/22 07:00) Promethazine Tablet (Phenergan Tablet) (01/15/22 15:15) Sildenafil Tablet (Revatio Tablet) (01/15/22 21:00) Sennosides Tablet (Senokot Tablet) (01/15/22 21:00) Calcium Carbonate Chew Tablet (Antacid C (01/15/22 15:15) Acetaminophen Tablet/Caplet (Tylenol T (01/15/22 15:15) Venlafaxine Xr Capsule (Effexor Xr Capsu (01/16/22 09:00) Zinc Sulfate Capsule (Zinc 50 Mg Capsule (01/16/22 08:00) Ondansetron Injection (Zofran Injectio (01/15/22 15:15) Ondansetron Oral Dissolve Tab (Zofran (01/15/22 15:15) Buspirone Tablet (Buspar Tablet) (01/15/22 21:00) Insulin Aspart (Novolog) (Novolog (Charg (01/16/22 07:00) Insulin Determir (Per Unit) (Levemir (Pe (01/15/22 21:00) Metoprolol Succinate (Xl) Tab (Toprol Xl (01/16/22 09:00) Trazodone Tablet (Desyrel Tablet) (01/15/22 21:00) Consult Cardiology (01/15/22 15:08) Mat Initiate Protocol (01/15/22 15:08) Svn Small Volume Nebulizer (01/15/22 15:08) Follow-Up Appointment (01/15/22 15:08) Svn Small Volume Nebulizer (01/15/22 15:08) Patient Visit (01/15/22 ) Self Care/Home Mgmt/Adl 15 Min (01/15/22 ) Functional Activities, Ea 15 (01/15/22 ) Exercise Therap, Ea 15 Min (01/15/22 ) Patient Visit (01/15/22 ) Functional Activities, Ea 15 (01/15/22 ) Exercise Therap, Ea 15 Min (01/15/22 ) Albuterol Pre-Mix Nebs (Rt) (Proventil (01/15/22 21:00) Svn Small Volume Nebulizer (01/15/22 18:22) Patient Visit (01/16/22 ) Speech Sound Lang Comp (01/16/22 ) Treat. Speech/Lang/Voice (01/16/22 ) Bumetanide Injection (Bumex Injection) (01/17/22 07:00) Bumetanide Injection (Bumex Injection) (01/16/22 15:00) Miconazole 2% Powder (Phytoplex Af 2% Po (01/16/22 10:30) Patient Visit (01/16/22 ) Gait Training, Ea 15 Min (01/16/22 ) Exercise Therap, Ea 15 Min (01/16/22 ) Umeclidinium [place] Inhaler (Incruse El (01/17/22 12:00) Metolazone Tablet (Zaroxolyn Tablet) (01/17/22 06:30) Rehab Nursing Orders: Ongoing Assess. of Function Status, Bladder Management, Bladder Scan, Bladder Training, Bowel Management, Bowel Training, Disease Management & Educaiton, DVT Prophylaxis, Fall Prevention, Fluid/E lectrolyte/Nutrition Mgmt, Infection Prevention, Medication Management & Education, Management of Risks & Complications, Management of Skin Intergrity, Nutrition Management, Pain Management, Patient/Family Support, Safety Management Intensity of Therapy to be met Patient to be seen: Min.3h per day/5 of 7d PT IPOC Problem List: Activity Tolerance, Functional Strength Treatment Plan: Continue Plan of Care Bed Mobility, Education, Functional Activity Lola, Functional Strength, Group Therapy, Gait, Safety, Therapeutic Exercise, Transfers Treatment Duration: Mar 08, 2022 Frequency: At least 5 of 7 days/Wk (IRF) Estimated Hrs Per Day: 1.5 hours per day OT IPOC Problems: Decreased Activ Tolerance, Decreased UE Strength, Impaired I ADL's, Impaired Self-Care Skills OT Treatment, Training and Edu: Yes Plan of Care: ADL Retraining, Functional Mobility, Group Exercise/Act as Ind, UE Funct Exercise/Act Treatment Duration: Feb 07, 2022 Frequency: At least 5 of 7 days/Wk (IRF) Estimated Hrs Per Day: 1.[address] IPOC Speech Therapy Treatment Plan: Discontinue ST Treatment Duration: Jan 16, 2022 Frequency: Modified Program (IRF) Estimated Hrs Per Day: Other Digital Advertising Specialist/Case Mgmt Digital Advertising Specialist/Case Managemen: Discharge Planning Dietitian/Lead Retail Sales Associate Dietitian/Lead Retail Sales Associate to monitor nutritional status and make changes and/or recommendations as needed and work with speech pathology on dietary upgrades as the occur. Physician IPOC Medical Issues being managed closely and that require the 24 hour availability of a physician: Complex CHF with CKD and end stage issues will require close monitoring of creat and oxygen levels along with monitoring BP and sugar Medical Issues: Bowel/Bladder Function, DVT Prophylaxis, Falls Precautions, Fluid/Electrolyte/Nutrition Balance, Infection Protection, Pain Management Brief Synthesis of Preadmission Screen, Post-Admission Evaluation, and Therapy Evaluations: PT OT will focus on regaining strength and focus on increasing stamina in order to return back home and enroll in hospice Medical Prognosis: Guarded Anticipated Length of Stay: 7 days FERN BAILEY DO Jan 16, 2022 05:54
--- NOTE | 2022-01-16 05:54 | PM&R Progress Note ---
Subjective HPI/CC On Admission Date Seen by Provider: Jan 16, 2022 Time Seen by Provider: 12:00 Subjective/Events-last exam 01/16/2022: Improved status but she still feels like she is retaining fluid Told her I would speak to Dr Hand who agreed with me she is end-stage and diuresis is the only management but CKD is an issue but he agreed with hospice No pain reported BM+ Catheter out Changed times of diuresis Review of Systems General: Fatigue, Malaise Pulmonary: Dyspnea Objective Exam Vital Signs Vital Signs Date Time Temp Pulse Resp B/P (MAP) Pulse Ox O2 Delivery O2 Flow Rate FiO2 01/16/22 20:51 Nasal Cannula 4.00 01/16/22 20:13 36.9 86 20 127/64 (85) 94 Capillary Refill : General Appearance: WD/WN, Anxious, Chronically ill, Mild Distress, Obese HEENT: PERRL/EOMI, Normal ENT Inspection, Pharynx Normal Neck: Full Range of Motion, Normal Inspection, Non Tender, Supple, Carotid Bruit Respiratory: Chest Non Tender, No Respiratory Distress, Accessory Muscle Use, Decreased Breath Sounds, Wheezing Cardiovascular: Regular Rate, Rhythm, No Gallop, No JVD, No Murmur, Normal Peripheral Pulses Gastrointestinal: Normal Bowel Sounds, No Organomegaly, No Pulsatile Mass, Non Tender, Soft Back: Normal Inspection, No CVA Tenderness, No Vertebral Tenderness Extremity: Normal Capillary Refill, Normal Inspection, Normal Range of Motion, Non Tender, No Calf Tenderness, No Pedal Edema Neurologic/Psychiatric: Alert, Oriented x3, Normal Mood/Affect, aqueduct and reservoir keeper II-XII Norm as Tested, Abnormal Gait, Motor Weakness (generalized) Skin: Normal Color, Warm/Dry Lymphatic: No Adenopathy Results/Procedures Lab Laboratory Tests 01/16/22 05:50 Patient resulted labs reviewed. FIM Transfers Therapy Code Descriptions/Definitions Functional [place] Measure: 0=Not Assessed/NA 4=Minimal Assistance 1=Total Assistance 5=Supervision or Setup 2=Maximal Assistance 6=Modified [place] 3=Moderate Assistance 7=Complete IndependenceSCALE: Activities may be completed with or without assistive devices. 7-Cvqllyunal-ipndfqy completes the activity by him/herself with no assistance from a helper. 5-Set-up or Clean-up Assistance-helper sets up or cleans up; patient completes activity. [place] assists only prior to or following the activity. 4-Supervision or Touching Assistance-helper provides verbal cues and/or touching/steadying and/or contact guard assistance as patient completes activity. Assistance may be provided throughout the activity or intermittently. 3-Partial/Moderate Assistance-helper does LESS THAN HALF the effort. [place] lifts, holds or supports trunk or limbs, but provides less than half the effort. 2-Substantial/Maximal Assistance-helper does MORE THAN HALF the effort. [place] lifts or holds trunk or limbs and provides more than half the effort. 1-Tyyznwijk-nlhnjo does ALL the effort. Patient does none of the effort to complete the activity. Or, the assistance of 2 or more helpers is required for the patient to complete the activity. If activity was not attempted, code reason: 7-Patient Refused. 9-Not Applicable-not attempted and the patient did not perform the activity before the current illness, exacerbation or injury. 10-Not Attempted due to Environmental Limitations-(lack of equipment, weather restraints, etc.). 88-Not Attempted due to Medical Conditions or Safety Concerns. Roll Left to Right (QC): 4 Sit to Lying (QC): 4 Sit to Stand (QC): 5 Chair/Trf-qt-Vpvtq Xfer(QC): 4 Car Transfer (QC): 4 Gait Training Does the Patient Walk?: Yes Distance: 5' Walk 10 feet (QC): 4 Walk 50 ft with 2 Turns(QC): 3 Walk 150 ft (QC): 88 Walking 10ft/uneven surface-QC: 4 Gait Assistive Device: FWW Wheelchair Training Does the Pt Use a Wheelchair?: No Wheel 50 ft with 2 turns (QC): 9 Wheel 150 ft (QC): 9 Stair Training #of Steps: 12 1 Step (curb) (QC): 3 4 Steps (QC): 3 12 Steps (QC): 3 Balance Picking up an Object (QC): 3 ADL-Treatment Eating (QC): 6 (IND per pt report.) Oral Hygiene (QC): 6 Shower/Bathe Self (QC): 5 Upper Body Dressing (QC): 5 Lower Body Dressing (QC): 3 On/Off Footwear (QC): 3 Toileting Hygiene (QC): 6 Toilet Transfer (QC): 4 Assessment/Plan Assessment and Plan Assess & Plan/Chief Complaint Assessment: CHF exacerbation - Given patient's failure to improve with furosemide up to 120 mg, bumetanide has been initiated to attain diuresis. Continue to monitor respiratory symptoms, fluid levels, and kidney function. Continue oxygen via NC. Dr. Quinones was consulted for cardiological management. He does not recommend intervention in the case of her mitral stenosis at this time. He does recommend beginning oral bumetanide or torsemide once appropriate to transition to oral medications. Kidney function is stable, patient SOB and swelling continue to improve. COPD - albuterol sulfate, budesonide, revefenacin Anxiety - alprazolam, buspirone Depression - venlafaxine Mitral stenosis - Cardiology does not recommend intervention at this time Primary hypertension - losartan, metoprolol Hyperlipidemia - atorvastatin initiated Type II DM - insulin aspart, insulin degludec GERD - pantoprazole Hypothyroidism - levothyroxine Bilateral CVA tenderness - kidney function has remained stable since initial labs were taken. Continue monitoring and consider instituting pharmacological treatment if pain worsens Abdominal hematoma - possibly due to lovenox injections, will continue to monitor for changes. Lovenox DCd Hospice care recommended upon discharge. Patient to be transferred to inpatient rehab before transfer to home hospice care Plan: Monitor CHF and O2 levels Monitor creat Fall risk Home meds 01/16/2022: Supportive care Diuresis (1) Acute on chronic heart failure with preserved ejection fraction (HFpEF) Status: Acute FERN BAILEY DO Jan 16, 2022 05:54
[2022-01-16] MEDS: inSUlin ASPART (NovoLOG) 1 UNIT/0.01 ML (CHARGE PER UNIT) SC SCH ×4 (05:56→20:41)
[2022-01-16 06:00] LABS: BASOPHILS # (AUTO) 0.1 10^3/uL (0.0-0.1); BASOPHILS % (AUTO) 1 % (0-10); EOSINOPHILS # (AUTO) 0.5 10^3/uL (0.0-0.3); EOSINOPHILS % (AUTO) 7 % (0-10); HEMATOCRIT 32 % (35-52); HEMOGLOBIN 9.4 g/dL (11.5-16.0); LYMPHOCYTES # (AUTO) 0.9 10^3/uL (1.0-4.0); LYMPHOCYTES % (AUTO) 12 % (12-44); MEAN CORPUSCULAR HEMOGLOBIN 32 pg (25-34); MEAN CORPUSCULAR HGB CONC 30 g/dL (32-36); MEAN CORPUSCULAR VOLUME 106 fL (80-99); MEAN PLATELET VOLUME 9.5 fL (9.0-12.2); MONOCYTES # (AUTO) 0.4 10^3/uL (0.0-1.0); MONOCYTES % (AUTO) 5 % (0-12); NEUTROPHILS # (AUTO) 5.5 10^3/uL (1.8-7.8); NEUTROPHILS % (AUTO) 74 % (42-75); PLATELET COUNT 203 10^3/uL (130-400); WHITE BLOOD COUNT 7.4 10^3/uL (4.3-11.0)
[2022-01-16 06:21] LABS: ALBUMIN 3.3 GM/DL (3.2-4.5); POTASSIUM 4.2 MMOL/L (3.6-5.0)
[2022-01-16 06:22] LABS: CALCIUM 8.6 MG/DL (8.5-10.1)
[2022-01-16 06:23] LABS: TOTAL PROTEIN 6.8 GM/DL (6.4-8.2)
[2022-01-16 06:25] LABS: BILIRUBIN,TOTAL 0.4 MG/DL (0.1-1.0)
[2022-01-16 06:27] LABS: CREATININE SERUM 1.57 MG/DL (0.60-1.30)
[2022-01-16] MEDS: PANTOPRAZOLE 40 MG (PROTONIX) TAB PO SCH (06:28)
[2022-01-16] MEDS: KCL 10 MEQ TAB (MICRO K) PO SCH (06:29)
[2022-01-16] MEDS: LEVOTHYROXINE 125 MCG (LEVOTHROID) TABLET PO SCH (06:29)
[2022-01-16 07:39] VITALS: BP 120/69
[2022-01-16] MEDS: RT-BUDESONIDE NEBS 0.5 MG/2ML (PULMICORT) AMP IH SCH ×2 (08:04→19:54)
[2022-01-16] MEDS: RT-ALBUTEROL SULF 2.5 MG/3 ML PRE-MIX VIAL INH SCH ×3 (08:04→19:54)
[2022-01-16] MEDS: inSUlin ASPART (NovoLOG) 1 UNIT/0.01 ML (CHARGE PER UNIT) SQ SCH (08:37)
--- NOTE | 2022-01-16 08:44 | ST Cognitive Linguistic Eval ---
Speech Evaluation-General Medical Diagnosis CHF Myopathy Onset Date: Jan 13, 2022 Precautions Precautions: Fall, Pressure Ulcer Precautions/Isolations: Fall Prevention, Standard Precautions, Pressure Ulcer Referral Referring Physician: Dr. Deya Arreola Reason for Referral: Evaluation/Treatment Medical History Pertinent Medical History: CAD, COPD, DM, GERD, HTN, Neuropathy Current History The patient is a 66 year-old female with a past medical history of CAD, COPD, DM, GERD, HTN, neuropathy, CHF, CKD (stage three), hyperlipidemia, anxiety, and depression, who was admitted to the acute rehabilitation unit following CHF exacerbation. Reviewed History: Yes Social History Current Living Status: Alone Speech PLF-Current Status Prior Level of Function The patient denied current or prior concerns with her speech, language, or cognition. Subjective The patient was seated upright in her recliner, awake and alert, upon entrance to her room by the clinician. The patient greeted the clinician appropriately and was agreeable to participation in the cognitive linguistic assessment. Language Eval: Auditory Comprehends Simple Yes/No Ques: Functional Indent/Objects Multiple Mathew: Functional Follows 1-Step Commands: Functional Follows General Conversations: Functional Language Eval: Verbal Language Completes Spontaneous Greeting: Functional Produces Auto, Serial Info: Functional Word Finding: Functional Requests Basic Needs: Functional States Basic Personal Info: Functional Language Evaluation: Reading Follows Simple Written Direct: Functional Language Evaluation: Writing Writes to Simple Dictation: Functional Cognitive Patient Orientation The patient was independently oriented to self, location, month, day of the week, and year. Objective Cognitive Domain Attention: WNL Memory: WNL Problem Solving: Functional Executive Functions: WNL Visuospatial Skills: WNL Composite Severity Rating: WNL Clock Drawing Severity Rating: WNL Objective Formal/Standardized Tests [facility] Mental Status Exam (UMS) Results The patient demonstrated a result of +27/30 on the SLUMS correlating to a score of cognitive linguistic skills within normal limits. Oral Motor/Speech Production The patient does not display dysarthria or apraxia of speech. The patient is 100% intelligible in known and unknown contexts. Impression The patient demonstrated cognitive linguistic skills within normal limits ( baseline). Speech-Plan Treatment Plan Speech Therapy Treatment Plan: Discontinue ST Treatment Duration: Jan 16, 2022 Frequency: 1 time per week Estimated Hrs Per Day: .5 hour per day Rehab Potential: Fair Safety Risks/Education Teaching Recipient: Patient Teaching Methods: Discussion Response to Teaching: Verbalize Understanding Education Topics Provided: Results, Recommendations, Plan of Care Time Speech Therapy Time In: 09:00 Speech Therapy Time Out: 09:30 DATE: Jan 16, 2022 Total Billed Time: 30 Billed Treatment Time 1, JARETT TENORIO ELIZABETH ST Jan 16, 2022 08:44
--- NOTE | 2022-01-16 08:56 | Physical Therapy Daily Note ---
PT Daily Note-Current Subjective Patient lying supine in bed upon PT arrival, agreeable to treatment. Rates pain at 5/10 currently in abdomen. Pain Section J - Health Conditions 1. Rarely or not at all 2. Occasionally 3. Frequently 4. Almost constantly 8. Unable to answer Pain Effect on Sleep: 2 Pain Interference with Therapy: 2 Pain Interference w/Day-to-Day: 2 Mental Status Patient Orientation: Person, Place, Time, Situation Transfers SCALE: Activities may be completed with or without assistive devices. 0-Etnequfyxp-odocnnh completes the activity by him/herself with no assistance from a helper. 5-Set-up or Clean-up Assistance-helper sets up or cleans up; patient completes activity. [place] assists only prior to or following the activity. 4-Supervision or Touching Assistance-helper provides verbal cues and/or touchin g/steadying and/or contact guard assistance as patient completes activity. Assistance may be provided throughout the activity or intermittently. 3-Partial/Moderate Assistance-helper does LESS THAN HALF the effort. [place] lifts, holds or supports trunk or limbs, but provides less than half the effort. 2-Substantial/Maximal Assistance-helper does MORE THAN HALF the effort. [place] lifts or holds trunk or limbs and provides more than half the effort. 9-Joyadrtpb-fqgxbc does ALL the effort. Patient does none of the effort to complete the activity. Or, the assistance of 2 or more helpers is required for the patient to complete the activity. If activity was not attempted, code reason: 7-Patient Refused. 9-Not Applicable-not attempted and the patient did not perform the activity before the current illness, exacerbation or injury. 10-Not Attempted due to Environmental Limitations-(lack of equipment, weather restraints, etc.). 88-Not Attempted due to Medical Conditions or Safety Concerns. Roll Left & Right (QC): 4 Sit to Lying (QC): 4 Lying to Sitting/Side of Bed(Q: 4 Sit to Stand (QC): 4 Chair/Ulc-se-Gnxcd Xfer(QC): 4 Toilet Transfer (QC): 4 Weight Bearing Right Lower Extremity: Right Full Weight Bearing Left Lower Extremity: Left Full Weight Bearing Gait Training Does the Patient Walk?: Yes Distance: 150 feet Walk 10 feet (QC): 4 Walk 50 ft with 2 Turns(QC): 4 Walk 150 ft (QC): 4 Gait Assistive Device: FWW Exercises Supine Ex: Ankle pumps, Glut sets, Heel Slides, Short Arc Quads, Straight leg raise, Hip abd/add Supine Reps: 20 Seated Therapy Exercises: Long arc quads, Hip flexion, Hamstring Curls, Hip abd/add Seated Reps: 20 NuStep Minutes: 10 NuStep Workload: 2 Assessment Current Status: Fair Progress Patient tolerated treatment well. Demonstrates improved gait distance. Patient performs all observed bed mobility with [place] and all observed transfers with SBA. Patient performs LE therapeutic exercise supine as listed above, then in sitting after transfer to sitting edge of bed. Patient ambulates 100 feet, to the gym to perform Nu Step and sitting therapeutic exercise. Patient then ambulates 150 feet with FWW, with SBA and verbal cues for safety, progression, posture and conservation of energy. Patient in chair post treatment with all needs met, nursing notified, call light in hand. PT Steward Dishwasher Goals Steward Dishwasher Goals PT Halfway Goals Time Frame: Feb 08, 2022 Roll Left & Right (QC): 6 Sit to Lying (QC): 6 Lying-Sitting on Side/Bed(QC): 6 Sit to Stand (QC): 6 Chair/Oyc-eb-Blrjq Xfer(QC): 6 Toilet Transfer (QC): 6 Car Transfer (QC): 6 Does the Patient Walk: Yes Walk 10 feet (QC): 6 Walk 50ft with 2 Turns (QC): 6 Walk 150 ft (QC): 6 Walking 10ft on Uneven Surface: 6 1 Step (curb) (QC): 6 4 Steps (QC): 6 12 Steps (QC): 6 Picking up an Object (QC): 6 Does the Pt use WC or Scooter?: No Wheel 50 feet with 2 turns (QC: 9 Wheel 150 feet: 9 PT Plan Treatment/Plan Treatment Plan: Continue Plan of Care Treatment Plan: Bed Mobility, Education, Functional Activity Lola, Functional Strength, Group Therapy, Gait, Safety, Therapeutic Exercise, Transfers Treatment Duration: Mar 08, 2022 Frequency: At least 5 of 7 days/Wk (IRF) Estimated Hrs Per Day: 1.5 hours per day Patient and/or Family Agrees t: Yes Safety Risks/Education Patient Education: Gait Training, Transfer Techniques Teaching Recipient: Patient Teaching Methods: Demonstration, Discussion Response to Teaching: Verbalize Understanding, Return Demonstration Time Time In: 800 Time Out: 900 DATE: Jan 16, 2022 Total Billed Treatment Time: 60 Total Billed Treatment Visit, Ex (30), Gait (30) KARTHIK PAIZ PT Jan 16, 2022 08:55
--- NOTE | 2022-01-16 09:28 | Progress Note ---
REJI DUARTE 01/16/22 0928: Progress Note S: Ms. Taveras is a 66 year old female who presents to the in-patient rehabilitation unit for rehabilitation to return home and receive hospice care. Patient was transferred from [facility] fourth floor to the rehab unit yesterday afternoon, 01/15. Patient was admitted for severe CHF with exacerbation. Patient is sitting in recliner this morning, visibly SOA. At time of encounter patient had just finished working with PT. Patient states she feels as though she is catching her breath. She denies chest pain. Patient reports she is tolerating PO food and drink. Patient states she is ambulating well with assistance. Patient states she is urinating well and frequently since urinary catheter removal and diuresis with IV Bumex. Patient reports lower superficial abdominal pain, located under her abdominal pannus. Patient describes the pain as sharp and burning. O: -Vital signs stable: T 36.5, HR 81, RR 16, BP 116/61, SpO2 98% 4L NC -PE: -General: patient is resting in recliner visibly SOA. Patient is able to converse easily and does not appear to be in respiratory distress -Cardiovascular: HRRR -Pulmonary: diminished lung sounds throughout, no wheezing present -Gastrointestinal: bowel sounds present, superficial LLQ pain with palpation -Skin: diffuse purpura rash across lower abdomen, likely due to Lovenox inj. Lifting up the patient's abdominal pannus, skin is erythematous midline. No erythema is noted on left side under pannus, but patient described tenderness with palpation. No skin breakdown, however skin is moist. -LE: bilateral lower extremity mild edema A/P: 1. Continue PT/OT for rehabilitation 2. Continue IV Bumex for CHF management 3. Intertrigo; manage with frequent monitoring of skin, drying powder, and interdry placement DEYA BAILEY DO 01/17/22 [id number]: Supervisory-Addendum Brief Verification & Attestation Participated in pt care: history, MDM, physical Personally performed: exam, history, MDM, supervision of care Care discussed with: Medical Student Procedures: n/a Results interpretation: Verified all documentation Verification and Attestation of Medical Student E/M Service A medical student performed and documented this service in my presence. I reviewed and verified all information documented by the medical student and made modifications to such information, when appropriate. I personally performed the physical exam and medical decision making. Deya Bailey, Jan 17, 2022,04:07 REJI DUARTE Jan 16, 2022 09:28 DEYA BAILEY DO Jan 17, 2022 04:07
[2022-01-16] MEDS: SILDENAFIL 20 MG (REVATIO) TAB PO SCH ×3 (09:34→20:39)
[2022-01-16] MEDS: ASCORBIC ACID (VIT C) 500 MG TABLET PO SCH (09:34)
[2022-01-16] MEDS: busPIRone 5 MG (BUSPAR) TAB PO SCH ×2 (09:34→20:39)
[2022-01-16] MEDS: VITAMIN D3 125 MCG (5,000 UNITS) CAPSULE PO SCH (09:34)
[2022-01-16] MEDS: BUMETANIDE 1 MG/4 ML (BUMEX) VIAL IV SCH ×2 (09:35→14:27)
[2022-01-16] MEDS: VENlafaxine XR 75 MG (EFFEXOR XR) CAP PO SCH (09:35)
[2022-01-16] MEDS: DOCUSATE SODIUM 100 MG (COLACE) CAP PO SCH ×2 (09:35→20:54)
[2022-01-16] MEDS: GABAPENTIN 300 MG (NEURONTIN) CAP PO SCH ×4 (09:35→20:38)
[2022-01-16] MEDS: ZINC SULFATE 220 MG CAPSULE PO SCH (09:35)
[2022-01-16] MEDS: ASPIRIN E.C. 81 MG (ECOTRIN) TAB PO SCH (09:35)
[2022-01-16] MEDS: polyethylene glycoL POWDER 17 GM (MIRALAX) PACK PO SCH ×2 (09:40→20:54)
[2022-01-16] MEDS: SENNOSIDES 8.6 MG (SENOKOT) TAB PO SCH ×2 (09:41→20:54)
--- NOTE | 2022-01-16 10:03 | Occupational Ther Daily Note ---
OT Current Status-Daily Note Subjective Pt alert, in recliner. Pt c/o no pain at this time. Pt agrees to therapy. Mental Status/Objective Patient Orientation: Person, Place, Time, Situation Attachments: IV, Oxygen (4L) ADL-Treatment Pt ambulated from recliner to bathroom with FWW and completed toilet transfer and hygiene independently. Pt stood at sink with FWW and completed hand and oral hygiene independently. Pt ambulated back to recliner with FWW and made comfortable. Phone/call light in reach. All needs met in room. Therapy Code Descriptions/Definitions Functional [place] Measure: 0=Not Assessed/NA 4=Minimal Assistance 1=Total Assistance 5=Supervision or Setup 2=Maximal Assistance 6=Modified [place] 3=Moderate Assistance 7=Complete IndependenceSCALE: Activities may be completed with or without assistive devices. 7-Xealgivrsu-nyzftwf completes the activity by him/herself with no assistance from a helper. 5-Set-up or Clean-up Assistance-helper sets up or cleans up; patient completes activity. [place] assists only prior to or following the activity. 4-Supervision or Touching Assistance-helper provides verbal cues and/or touching/steadying and/or contact guard assistance as patient completes activity. Assistance may be provided throughout the activity or intermittently. 3-Partial/Moderate Assistance-helper does LESS THAN HALF the effort. [place] lifts, holds or supports trunk or limbs, but provides less than half the effort. 2-Substantial/Maximal Assistance-helper does MORE THAN HALF the effort. [place] lifts or holds trunk or limbs and provides more than half the effort. 1-Ijjooxtcm-yshawh does ALL the effort. Patient does none of the effort to complete the activity. Or, the assistance of 2 or more helpers is required for the patient to complete the activity. If activity was not attempted, code reason: 7-Patient Refused. 9-Not Applicable-not attempted and the patient did not perform the activity before the current illness, exacerbation or injury. 10-Not Attempted due to Environmental Limitations-(lack of equipment, weather restraints, etc.). 88-Not Attempted due to Medical Conditions or Safety Concerns. Oral Hygiene (QC): 6 Toileting Hygiene (QC): 6 Toilet Transfer (QC): 6 Pt only need assistance to ambulate due to oxygen cord getting in the way. Pt takes an extended amount of time to complete task due to fatigue and SOA. Other Treatment Pt completed B UE exercises with arm bike for 3 min forward rotation/3 min backward rotation with no resistance and yellow resistance theraband to increase strength for daily functional tasks. Pt participated in manipulating putty, resistance sponge exercises and placing resistance pegs into board to increase grasp and UE strength for self care skills. Skilled instruction for correct technique and form. Education OT Patient Education: Home exercise program Teaching Recipient: Patient Teaching Methods: Demonstration, Discussion Response to Teaching: Return Demonstration OT Short Term Goals Short Term Goals Time Frame: Jan 24, 2022 Shower/bathe self: 5 Upper body dressin Lower body dressin Putting on/taking off footwear: 5 OT Mcfp Goals Mcfp Goals Time Frame: Feb 07, 2022 Acute change in mental status: 0 Inattention: 0 Disorganized thinkin Altered level of consciousness: 0 Eating (QC): 6 Oral Hygiene (QC): 6 Toileting Hygiene (QC): 6 Shower/Bathe Self (QC): 6 Upper Body Dressing (QC): 6 Lower Body Dressing (QC): 6 On/Off Footwear (QC): 6 Additional Goals: 1-Demonstrate ADL Tasks, 2-Verbalize Understanding, 3- ImproveStrength/Olla 1=Demonstrate adherence to instructed precautions during ADL tasks. 2=Patient will verbalize/demonstrate understanding of assistive devices/modifications for ADL. 3=Patient will improve strength/tolerance for activity to enable patient to perform ADL's. OT Education/Plan Problem List/Assessment Assessment: Decreased Activ Tolerance, Decreased UE Strength, Impaired Self- Care Skills Discharge Recommendations Plan/Recommendations: Continue POC Treatment Plan/Plan of Care Patient would benefit from OT for education, treatment and training to promote independence in ADL's, mobility, safety and/or upper extremity function for ADL's. Plan of Care: ADL Retraining, Functional Mobility, Group Exercise/Act as Ind, UE Funct Exercise/Act Treatment Duration: Feb 07, 2022 Frequency: At least 5 of 7 days/Wk (IRF) Estimated Hrs Per Day: 1.5 hours per day Agreement: Yes Rehab Potential: Fair Time Start Time: 10:00 Stop Time: 11:15 DATE: Jan 16, 2022 Total Time Billed (hr/min): 75 Billed Treatment Time 1 visit ADL (15 min) EX 4 (60 min) IVETH COSTELLO Jan 16, 2022 10:03
[2022-01-16] MEDS ORDERED: REVEFENACIN 175 MCG IH SCH (12:00)
[2022-01-16 20:13] VITALS: BP 127/64
[2022-01-16] MEDS: traZODone 50 MG (DESYREL) TAB PO SCH (20:38)
[2022-01-16] MEDS: MELATONIN 3 MG TABLET PO SCH (20:39)
[2022-01-16] MEDS: MONTELUKAST 10 MG (SINGULAIR) TAB PO SCH (20:39)
[2022-01-16] MEDS: AtorvaSTATin TABLET 10 MG TABLET PO SCH (20:39)
[2022-01-16] MEDS: MICONAZOLE 2% POWDER (DESENEX AF) 90 GM TOP SCH ×3 (20:41→20:56)
[2022-01-17] MEDS: inSUlin ASPART (NovoLOG) 1 UNIT/0.01 ML (CHARGE PER UNIT) SQ SCH ×2 (05:59→06:30)
[2022-01-17] MEDS: inSUlin ASPART (NovoLOG) 1 UNIT/0.01 ML (CHARGE PER UNIT) SC SCH ×4 (06:01→20:29)
[2022-01-17] MEDS: BUMETANIDE 1 MG/4 ML (BUMEX) VIAL IV SCH ×2 (06:30→14:04)
[2022-01-17] MEDS: PANTOPRAZOLE 40 MG (PROTONIX) TAB PO SCH (06:30)
[2022-01-17] MEDS: KCL 10 MEQ TAB (MICRO K) PO SCH (06:30)
[2022-01-17] MEDS: LEVOTHYROXINE 125 MCG (LEVOTHROID) TABLET PO SCH (06:30)
[2022-01-17] MEDS ORDERED: METOLAZONE 5 MG (ZAROXOLYN) TAB PO SCH (06:30)
[2022-01-17 07:44] VITALS: BP 111/63
[2022-01-17] MEDS: DOCUSATE SODIUM 100 MG (COLACE) CAP PO SCH ×2 (07:52→20:22)
[2022-01-17] MEDS: ASCORBIC ACID (VIT C) 500 MG TABLET PO SCH (07:52)
[2022-01-17] MEDS: SILDENAFIL 20 MG (REVATIO) TAB PO SCH ×3 (07:52→20:24)
[2022-01-17] MEDS: ZINC SULFATE 220 MG CAPSULE PO SCH (07:52)
[2022-01-17] MEDS: GABAPENTIN 300 MG (NEURONTIN) CAP PO SCH ×4 (07:52→20:22)
[2022-01-17] MEDS: busPIRone 5 MG (BUSPAR) TAB PO SCH ×2 (07:52→20:23)
[2022-01-17] MEDS: ASPIRIN E.C. 81 MG (ECOTRIN) TAB PO SCH (07:53)
[2022-01-17] MEDS: polyethylene glycoL POWDER 17 GM (MIRALAX) PACK PO SCH ×2 (07:53→20:29)
[2022-01-17] MEDS: VENlafaxine XR 75 MG (EFFEXOR XR) CAP PO SCH (07:53)
[2022-01-17] MEDS: VITAMIN D3 125 MCG (5,000 UNITS) CAPSULE PO SCH (07:54)
[2022-01-17] MEDS: MICONAZOLE 2% POWDER (DESENEX AF) 90 GM TOP SCH ×2 (07:55→20:25)
[2022-01-17] MEDS: SENNOSIDES 8.6 MG (SENOKOT) TAB PO SCH ×2 (08:03→20:24)
--- NOTE | 2022-01-17 08:59 | Physical Therapy Daily Note ---
PT Daily Note-Current Subjective Patient in the bathroom on the toilet with nurse pre-tx, reports pain in low back but did not score, agrees to PT. Pain Section J - Health Conditions 1. Rarely or not at all 2. Occasionally 3. Frequently 4. Almost constantly 8. Unable to answer Pain Effect on Sleep: 2 Pain Interference with Therapy: 2 Pain Interference w/Day-to-Day: 2 Appearance Patient in recliner with nurse call, phone, tray, all needs met. Mental Status Patient Orientation: Person, Place, Situation Attachments: Oxygen Transfers SCALE: Activities may be completed with or without assistive devices. 1-Ekkmyjkfuv-cklsdyq completes the activity by him/herself with no assistance from a helper. 5-Set-up or Clean-up Assistance-helper sets up or cleans up; patient completes activity. [place] assists only prior to or following the activity. 4-Supervision or Touching Assistance-helper provides verbal cues and/or touching/steadying and/or contact guard assistance as patient completes activity. Assistance may be provided throughout the activity or intermittently. 3-Partial/Moderate Assistance-helper does LESS THAN HALF the effort. [place] lifts, holds or supports trunk or limbs, but provides less than half the effort. 2-Substantial/Maximal Assistance-helper does MORE THAN HALF the effort. [place] lifts or holds trunk or limbs and provides more than half the effort. 6-Xoiqcmdcw-fsulwr does ALL the effort. Patient does none of the effort to complete the activity. Or, the assistance of 2 or more helpers is required for the patient to complete the activity. If activity was not attempted, code reason: 7-Patient Refused. 9-Not Applicable-not attempted and the patient did not perform the activity before the current illness, exacerbation or injury. 10-Not Attempted due to Environmental Limitations-(lack of equipment, weather restraints, etc.). 88-Not Attempted due to Medical Conditions or Safety Concerns. Sit to Stand (QC): 4 Chair/Njg-sf-Gsldv Xfer(QC): 4 SBA Weight Bearing Right Lower Extremity: Right Full Weight Bearing Left Lower Extremity: Left Full Weight Bearing Gait Training Distance: 150', 120', 120' Walk 10 feet (QC): 4 Walk 50 ft with 2 Turns(QC): 4 Walk 150 ft (QC): 4 Gait Persons Needed: 1 Gait Assistive Device: FWW Patient walks with a forward posture, good gait speed, decreased foot clearance, good step length. Stair Training #of Steps: 16 1 Step (curb) (QC): 4 4 Steps (QC): 4 12 Steps (QC): 4 SBA Exercises Standing: Hamstring curls, Heel/toe raises, Marching Standing Reps: 20 Abduction x20 reps NuStep Minutes: 15 NuStep Workload: 6 Treatments Ambulation, Stair Training, LE Strengthening, Endurance Training Assessment Current Status: Fair Progress Patient has decreased endurance and fatigues quickly, requires frequent sitting breaks to catch her breath. Verbal cueing to do pursed lip breathing, but patient challenges herself to do more and work hard, patient reports low back pain with ambulation. PT Assisted Goals Assisted Goals PT Assisted Goals Time Frame: Feb 08, 2022 Roll Left & Right (QC): 6 Sit to Lying (QC): 6 Lying-Sitting on Side/Bed(QC): 6 Sit to Stand (QC): 6 Chair/Zlv-lh-Okdsi Xfer(QC): 6 Toilet Transfer (QC): 6 Car Transfer (QC): 6 Does the Patient Walk: Yes Walk 10 feet (QC): 6 Walk 50ft with 2 Turns (QC): 6 Walk 150 ft (QC): 6 Walking 10ft on Uneven Surface: 6 1 Step (curb) (QC): 6 4 Steps (QC): 6 12 Steps (QC): 6 Picking up an Object (QC): 6 Does the Pt use WC or Scooter?: No Wheel 50 feet with 2 turns (QC: 9 Wheel 150 feet: 9 PT Plan Problem List Problem List: Activity Tolerance, Functional Strength, Safety, Balance, Gait, Transfer, Bed Mobility, ROM Treatment/Plan Treatment Plan: Continue Plan of Care Treatment Plan: Bed Mobility, Education, Functional Activity Lola, Functional Strength, Group Therapy, Gait, Safety, Therapeutic Exercise, Transfers Treatment Duration: Mar 08, 2022 Frequency: At least 5 of 7 days/Wk (IRF) Estimated Hrs Per Day: 1.5 hours per day Patient and/or Family Agrees t: Yes Safety Risks/Education Patient Education: Gait Training, Transfer Techniques, Steps, Correct Positioning, Safety Issues Teaching Recipient: Patient Teaching Methods: Demonstration, Discussion Response to Teaching: Reinforcement Needed Time Time In: 0800 Time Out: 0900 DATE: Jan 17, 2022 Total Billed Treatment Time: 60 Total Billed Treatment 1 visit FA 30min EX 30min BRENT MORRIS PT Jan 17, 2022 08:59
--- NOTE | 2022-01-17 09:37 | Occupational Ther Daily Note ---
OT Current Status-Daily Note Subjective Pt alert, sitting in recliner. Pt agrees to therapy. No c/o pain. Mental Status/Objective Patient Orientation: Person, Place, Time, Situation Attachments: IV (port) ADL-Treatment Pt agrees to shower. SBA for toilet transfer. SBA to manipulate clothing for toileting then cleanses self sitting on toilet, threads clothing over feet with AE by self.Pt able to complete shower using shower bench, grabbars, LH sponge and hand held shower with SBA for safety. Pt completes upper dressing by self after set up. Pt uses AE to thread briefs over feet with min A then is able to thread pants over feet by self, SBA to hike pants over hips. Pt sat in chair at sink to complete oral hygiene independently. Pt ambulated to recliner with FWW. Assist provided to don KHADRA hose. Pt donned socks with sock aide. Pt in recliner at end of session. Phone/call light in reach. All needs met in room. Therapy Code Descriptions/Definitions Functional [place] Measure: 0=Not Assessed/NA 4=Minimal Assistance 1=Total Assistance 5=Supervision or Setup 2=Maximal Assistance 6=Modified [place] 3=Moderate Assistance 7=Complete IndependenceSCALE: Activities may be completed with or without assistive devices. 5-Hlmvdllhwq-mauhzjn completes the activity by him/herself with no assistance from a helper. 5-Set-up or Clean-up Assistance-helper sets up or cleans up; patient completes activity. [place] assists only prior to or following the activity. 4-Supervision or Touching Assistance-helper provides verbal cues and/or touching/steadying and/or contact guard assistance as patient completes activity. Assistance may be provided throughout the activity or intermittently. 3-Partial/Moderate Assistance-helper does LESS THAN HALF the effort. [place] lifts, holds or supports trunk or limbs, but provides less than half the effort. 2-Substantial/Maximal Assistance-helper does MORE THAN HALF the effort. [place] lifts or holds trunk or limbs and provides more than half the effort. 6-Vqvseqhxd-cbjney does ALL the effort. Patient does none of the effort to complete the activity. Or, the assistance of 2 or more helpers is required for the patient to complete the activity. If activity was not attempted, code reason: 7-Patient Refused. 9-Not Applicable-not attempted and the patient did not perform the activity before the current illness, exacerbation or injury. 10-Not Attempted due to Environmental Limitations-(lack of equipment, weather restraints, etc.). 88-Not Attempted due to Medical Conditions or Safety Concerns. Eating (QC): 6 Oral Hygiene (QC): 6 Shower/Bathe Self (QC): 4 Upper Body Dressing (QC): 5 Lower Body Dressing (QC): 3 On/Off Footwear: 3 (Mod A) Toileting Hygiene (QC): 4 Toilet Transfer (QC): 4 OT Short Term Goals Short Term Goals Time Frame: Jan 24, 2022 Shower/bathe self: 5 Upper body dressin Lower body dressin Putting on/taking off footwear: 5 OT Web Programmer Goals [facility] Goals Time Frame: Feb 07, 2022 Acute change in mental status: 0 Inattention: 0 Disorganized thinkin Altered level of consciousness: 0 Eating (QC): 6 Oral Hygiene (QC): 6 Toileting Hygiene (QC): 6 Shower/Bathe Self (QC): 6 Upper Body Dressing (QC): 6 Lower Body Dressing (QC): 6 On/Off Footwear (QC): 6 Additional Goals: 1-Demonstrate ADL Tasks, 2-Verbalize Understanding, 3- ImproveStrength/[place] 1=Demonstrate adherence to instructed precautions during ADL tasks. 2=Patient will verbalize/demonstrate understanding of assistive devices/modifications for ADL. 3=Patient will improve strength/tolerance for activity to enable patient to perform ADL's. OT Education/Plan Problem List/Assessment Assessment: Decreased Activ Tolerance, Impaired Self-Care Skills Discharge Recommendations Plan/Recommendations: Continue POC Treatment Plan/Plan of Care Patient would benefit from OT for education, treatment and training to promote independence in ADL's, mobility, safety and/or upper extremity function for ADL's. Plan of Care: ADL Retraining, Functional Mobility, Group Exercise/Act as Ind, UE Funct Exercise/Act Treatment Duration: Feb 07, 2022 Frequency: At least 5 of 7 days/Wk (IRF) Estimated Hrs Per Day: 1.5 hours per day Agreement: Yes Rehab Potential: Fair Time Start Time: 09:00 Stop Time: 10:00 DATE: Jan 17, 2022 Total Time Billed (hr/min): 60 Billed Treatment Time 1 visit-ADL 4 (60 min) IVETH COSTELLO Jan 17, 2022 09:37
[2022-01-17] MEDS: RT-BUDESONIDE NEBS 0.5 MG/2ML (PULMICORT) AMP IH SCH ×2 (10:06→21:19)
[2022-01-17] MEDS: UMECLIDINIUM BROMIDE (INCRUSE ELLIPTA) 7'S IH SCH (10:06)
[2022-01-17] MEDS: RT-ALBUTEROL SULF 2.5 MG/3 ML PRE-MIX VIAL INH SCH ×3 (10:06→21:19)
--- NOTE | 2022-01-17 10:27 | Progress Note ---
DUARTEDEEA 01/17/22 1027: Progress Note S: Ms. Taveras is a 66 year old female who presents to the in-patient rehabilitation unit for rehabilitation to return home and receive hospice care. Patient was transferred from [facility] fourth floor to the rehab unit on 01/15. Patient was admitted for severe CHF with exacerbation. Patient is resting comfortably in recliner this morning. Patient reports she is tolerating PO food and drink. Patient states she is ambulating well with assistance. Patient states she is urinating well and frequently since urinary catheter removal and diuresis with Bumex and metolazone and her last BM was this morning. Patient states her lower superficial abdominal pain, located under her abdominal pannus, has improved with using the miconazole powder. Patient states she is still experiencing some LLQ pain; she states she thinks there is a nodule deep to her skin that is causing the pain. She also reports feeling a nodule in her LUQ as well with similar symptoms. Patient describes mild SOA and denies chest pain. Patient inquired about prognosis and became tearful and stated she does not want to receive hospice care. Patient's condition was discussed with family present and patient was counseled that she will continue to receive treatment as her care team works toward rehabilitating her home. O: -Vital signs stable: T 36.9, HR 86, RR 20, BP 127/64, SpO2 94% 4L NC -PE: -General: patient is resting in recliner comfortably -Cardiovascular: HRRR -Pulmonary: diminished lung sounds throughout, no wheezing present -Gastrointestinal: bowel sounds present. Patient located area of pain in LLQ, with palpation an estimated 1x1cm nodule deep to the skin is appreciated. No erythema at site. -Skin: diffuse purpura rash across lower abdomen, likely due to Lovenox inj. Lifting up the patient's abdominal pannus, skin is no longer erythematous. No s kin breakdown, skin is dry. -LE: bilateral lower extremity mild edema A/P: 1. Continue PT/OT for rehabilitation. Continue to discuss goals with patient and addiction treatment counselor regarding the patient's prognosis 2. Continue Bumex and metolazone for diuresis 3. Intertrigo; manage with frequent monitoring of skin and miconazole powder 4. LLQ 1x1cm skin nodule; possible sebaceous cyst, lipoma, or skin infection/abscess. No in-patient management necessary at this time. Recommend addressing with PCP and continue to monitor. May apply warm compress to area for management DEYA BAILEY DO 01/18/22 0553: Supervisory-Addendum Brief Verification & Attestation Participated in pt care: history, MDM, physical Personally performed: exam, history, MDM, supervision of care Care discussed with: Medical Student Procedures: n/a Results interpretation: Verified all documentation Verification and Attestation of Medical Student E/M Service A medical student performed and documented this service in my presence. I reviewed and verified all information documented by the medical student and made modifications to such information, when appropriate. I personally performed the physical exam and medical decision making. Deya Bailey, Jan 18, 2022,05:53 REJI DUARTE Jan 17, 2022 10:27 DEYA BAILEY DO Jan 18, 2022 05:53
--- NOTE | 2022-01-17 11:00 | Cardiology Progress Note ---
Subjective Date Seen by Provider: Jan 17, 2022 Time Seen by Provider: 10:30 Subjective/Events-last exam Rhea is feeling better today, with improved SOB. She states she feels stronger than she did when she was upstairs. She still feels like she is holding some water weight, but that her swelling has gone down. She notes some continued eye pain for the past few months. Denies CP, palpitations, and syncope. Dr. Quinones: I am following her due to heart failure. Earlier in the week she was transferred from the inpatient unit down to the inpatient physical re habilitation unit. Her breathing has improved. Her peripheral edema has resolved. She has been working with physical and occupational therapy without significant issues. She denies chest pain, palpitations, or syncope. She has many questions about home hospice and what this means for her long-term outlook. She was also asking about getting a consultation at a quaternary care facility for advanced heart failure. Certain portions of this document may have been dictated utilizing voice recognition technology. Inherent to this technology, typographical and grammatical errors may exist. As much as I am diligent to identify and correct these mistakes, some errors may remain in the document. Focused Exam Respiratory: No Accessory Muscle Use, No Respiratory Distress, Decreased Breath Sounds; No Wheezing Cardiovascular: Regular Rate, Rhythm, No Murmur Skin: normal color, warm/dry Objective-Cardiology Exam Last Set of Vital Signs Vital Signs 01/17/22 01/17/22 07:44 15:16 Temp 36.6 Pulse 86 Resp 20 B/P (MAP) 111/63 (79) Pulse Ox 93 O2 Delivery Nasal Cannula O2 Flow Rate 4.00 I&O Intake and Output 01/17/22 00:00 Intake Total 1660 ml Balance 1660 ml Intake Oral 1660 ml # Voids 12 Daily Weight Change No General: Alert, Oriented X3, Cooperative, No Acute Distress HEENT: Atraumatic, EOMI Neck: Supple Lungs: Other (Slightly diminished breath sounds bilaterally) Heart: Regular Rate, No Murmurs Abdomen: Soft, No Tenderness Extremities: No Edema Skin: No Significant Lesion Neuro: Normal Gait, Normal Speech Psych/Mental Status: Mental Status NL, Mood NL Other physical findings Dr. Quinones: General: Alert. No acute distress. She is obese. Eye: No xanthelasma. HENT: Normocephalic. Neck: Jugular venous pressure does not appear elevated. Respiratory: Lungs are clear to auscultation but decreased at the bases bilaterally. Respirations are non-labored. Breath sounds are equal. Symmetrical chest wall expansion. Cardiovascular: Normal rate. Regular rhythm. Distant S1/S2. No murmur. No gallop. Trace bilateral pretibial edema. Gastrointestinal: Soft. Normal bowel sounds. Skin: Warm. Dry. Neurologic: Alert and oriented to person, place, time. Cranial nerves 3-11 grossly intact. Psychiatric: Cooperative. Somewhat teary when thinking about hospice. A/P-Cardiology Assessment/Plan (1) Acute on chronic heart failure with preserved ejection fraction (HFpEF) Status: Acute Assessment & Plan: She is now receiving intravenous bumetanide. Her work of breathing and edema have improved, I believe she is ready to transition back to oral diuretic, we may want to place her on oral bumetanide or torsemide which absorb better when patient's abdominal edema. (2) Mitral stenosis Status: Chronic Assessment & Plan: She has mild to moderate mitral stenosis noted on her previous echocardiogram. I do not think this is at the point that this needs intervention but this will need to be followed longitudinally. (3) Pulmonary hypertension Status: Chronic Assessment & Plan: This is most likely multifactorial. The patient may benefit from home oxygen if she is not already using this. She does also follow with a db2 systems programmer at [place]. (4) Primary hypertension Status: Chronic Assessment & Plan: Continue outpatient antihypertensive medication. (5) Mixed hyperlipidemia Status: Chronic Assessment & Plan: Continue statin medication. (6) Acute on chronic respiratory failure with hypoxemia Status: Acute Assessment & Plan: Most likely multifactorial due to underlying pulmonary disease as well as the decompensated heart failure. (7) Stage 3a chronic kidney disease Status: Chronic Assessment & Plan: We will need to watch this closely with the intravenous diuretic. She will be seeing a stock worker and deliverer as an outpatient in the near future. (8) Type 2 diabetes mellitus with complication Status: Chronic Assessment & Plan: This is being managed by the hospitalist. (9) Morbid obesity Status: Chronic Assessment & Plan: She has been counseled about weight loss and health implications of obesity. DR. QUINONES: Heart failure, acute on chronic, with preserved ejection fraction. Symptomatically she is improved but her chest x-ray from 11/9 showed persistent vascular congestion. She has remained on intravenous bumetanide twice daily. I will obtain a follow-up BMP level tomorrow morning. I will obtain a follow-up chest x-ray and consider changing the intravenous diuretic over to oral tomorrow. Mitral stenosis. This is in a mild to moderate range. I would not suspect this to be causing symptoms but will need to be followed in the long run. Pulmonary hypertension. Most likely multifactorial. Consider home oxygen if not already in place. Primary hypertension. Blood pressure has been reasonably controlled with the present combination of medications. Mixed hyperlipidemia. Continue statin. Long-term goals. I explained to the patient that although she may go home with hospice, this does not mean that we are withdrawing treatment or support. Supervisory-Addendum Brief Verification & Attestation Participated in pt care: history, MDM, physical Personally performed: exam, history, MDM Care discussed with: Medical Student Procedures: n/a Results interpretation: Verified all documentation I personally and independently evaluated the patient as noted above. I also reviewed the medical student documentation. MILLER FELIZ Jan 17, 2022 11:00 JEANMARIE QUINONES JR, MD Jan 17, 2022 15:50
--- NOTE | 2022-01-17 11:49 | PM&R Progress Note ---
Subjective HPI/CC On Admission Date Seen by Provider: Jan 17, 2022 Time Seen by Provider: 11:45 Subjective/Events-last exam 01/17/2022: Family at bedside Patient and family go back and forth about hospice She wants to obtain a consultation and higher level of care for CHF but I seriously doubt we can keep her out of the hospital and healthy enough to do that up at a center like because the wait to get an appointment will be lengthy Zaroxolyn seems to be helpful 01/16/2022: Improved status but she still feels like she is retaining fluid Told her I would speak to Dr Hand who agreed with me she is end-stage and diuresis is the only management but CKD is an issue but he agreed with hospice No pain reported BM+ Catheter out Changed times of diuresis Review of Systems General: Fatigue, Malaise Objective Exam Vital Signs Vital Signs Date Time Temp Pulse Resp B/P (MAP) Pulse Ox O2 Delivery O2 Flow Rate FiO2 01/17/22 21:19 96 Nasal Cannula 4.00 01/17/22 19:33 36.8 84 20 120/64 (82) Capillary Refill : General Appearance: WD/WN, Anxious, Chronically ill, Mild Distress, Obese HEENT: PERRL/EOMI, Normal ENT Inspection, Pharynx Normal Neck: Full Range of Motion, Normal Inspection, Non Tender, Supple, Carotid Bruit Respiratory: No Accessory Muscle Use, No Respiratory Distress, Decreased Breath Sounds; No Wheezing Cardiovascular: Regular Rate, Rhythm, No Murmur Gastrointestinal: Normal Bowel Sounds, No Organomegaly, No Pulsatile Mass, Non Tender, Soft Back: Normal Inspection, No CVA Tenderness, No Vertebral Tenderness Extremity: Normal Capillary Refill, Normal Inspection, Normal Range of Motion, Non Tender, No Calf Tenderness, No Pedal Edema Neurologic/Psychiatric: Alert, Oriented x3, Normal Mood/Affect, 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 FIM Transfers Therapy Code Descriptions/Definitions Functional [place] Measure: 0=Not Assessed/NA 4=Minimal Assistance 1=Total Assistance 5=Supervision or Setup 2=Maximal Assistance 6=Modified [place] 3=Moderate Assistance 7=Complete IndependenceSCALE: Activities may be completed with or without assistive devices. 1-Opoaudrnci-rsztsbb completes the activity by him/herself with no assistance from a helper. 5-Set-up or Clean-up Assistance-helper sets up or cleans up; patient completes activity. [place] assists only prior to or following the activity. 4-Supervision or Touching Assistance-helper provides verbal cues and/or touching/steadying and/or contact guard assistance as patient completes activity. Assistance may be provided throughout the activity or intermittently. 3-Partial/Moderate Assistance-helper does LESS THAN HALF the effort. [place] lifts, holds or supports trunk or limbs, but provides less than half the effort. 2-Substantial/Maximal Assistance-helper does MORE THAN HALF the effort. [place] lifts or holds trunk or limbs and provides more than half the effort. 2-Pggoxmqns-cpyrmr does ALL the effort. Patient does none of the effort to complete the activity. Or, the assistance of 2 or more helpers is required for the patient to complete the activity. If activity was not attempted, code reason: 7-Patient Refused. 9-Not Applicable-not attempted and the patient did not perform the activity before the current illness, exacerbation or injury. 10-Not Attempted due to Environmental Limitations-(lack of equipment, weather restraints, etc.). 88-Not Attempted due to Medical Conditions or Safety Concerns. Roll Left to Right (QC): 4 Sit to Lying (QC): 4 Sit to Stand (QC): 4 Chair/Uxr-fv-Vqath Xfer(QC): 4 Car Transfer (QC): 4 Gait Training Does the Patient Walk?: Yes Distance: 150', 120', 120' Walk 10 feet (QC): 4 Walk 50 ft with 2 Turns(QC): 4 Walk 150 ft (QC): 4 Walking 10ft/uneven surface-QC: 4 Gait Persons Needed: 1 Gait Assistive Device: FWW Wheelchair Training Does the Pt Use a Wheelchair?: No Wheel 50 ft with 2 turns (QC): 9 Wheel 150 ft (QC): 9 Stair Training #of Steps: 16 1 Step (curb) (QC): 4 4 Steps (QC): 4 12 Steps (QC): 4 Balance Picking up an Object (QC): 3 ADL-Treatment Eating (QC): 6 Oral Hygiene (QC): 6 Shower/Bathe Self (QC): 4 Upper Body Dressing (QC): 5 Lower Body Dressing (QC): 3 On/Off Footwear (QC): 3 (Mod A) Toileting Hygiene (QC): 4 Toilet Transfer (QC): 4 Assessment/Plan Assessment and Plan Assess & Plan/Chief Complaint Assessment: CHF exacerbation - Given patient's failure to improve with furosemide up to 120 mg, bumetanide has been initiated to attain diuresis. Continue to monitor respiratory symptoms, fluid levels, and kidney function. Continue oxygen via NC. Dr. Quinones was consulted for cardiological management. He does not recommend intervention in the case of her mitral stenosis at this time. He does recommend beginning oral bumetanide or torsemide once appropriate to transition to oral medications. Kidney function is stable, patient SOB and swelling continue to improve. COPD - albuterol sulfate, budesonide, revefenacin Anxiety - alprazolam, buspirone Depression - venlafaxine Mitral stenosis - Cardiology does not recommend intervention at this time Primary hypertension - losartan, metoprolol Hyperlipidemia - atorvastatin initiated Type II DM - insulin aspart, insulin degludec GERD - pantoprazole Hypothyroidism - levothyroxine Bilateral CVA tenderness - kidney function has remained stable since initial labs were taken. Continue monitoring and consider instituting pharmacological treatment if pain worsens Abdominal hematoma - possibly due to lovenox injections, will continue to monitor for changes. Lovenox DCd Hospice care recommended upon discharge. Patient to be transferred to inpatient rehab before transfer to home hospice care Plan: Monitor CHF and O2 levels Monitor creat Fall risk Home meds 01/16/2022: Supportive care Diuresis 01/17/2022: Continue therapy End stage CHF management (1) Acute on chronic heart failure with preserved ejection fraction (HFpEF) Status: Acute FERN BAILEY DO Jan 17, 2022 11:49
--- NOTE | 2022-01-17 14:14 | Therapy Group Daily Note ---
Therapy Daily Group Note Patient Education Topic Other List Below (memory/ARU description) Exercises LE Seated Exercise, UE Exercise Session Ratio (pt:therapist): 3:1 Goal of Session: Education on ARU Expectations, Memory Strategies, UE/LE Strengthing Goal Met for this Session: Yes Pt Benefit of Group: Contributions to Others, Increased Functional Strength, Improved Cognition, Recognition of Peers, Socialization Other/Notes Pt ambulated using FWW to SDU [facility] area for OT/PT group. Group consisted of introductions (name, place, hardest thing ever done), socialization, B UE/LE exercises and educational topics (memory, ARU description). Pt introduced self appropriately and actively listened to peers. Pt able to complete B UE/LE seated exercises without difficulty. Pt acknowledged understanding of educational topics by own experience and strategies. Pt able to complete memory activity successfully. After session, pt laying in bed with call light/phone in reach. All needs met in room. Start Time: 13:00 Stop Time: 14:00 Total Billed Treatment Time: 60 Total Billed Treatment 1-[facility] IVETH COSTELLO Jan 17, 2022 14:14
[2022-01-17] MEDS: SALINE NASAL SPRAY (OCEAN) 45 ML BTL SCH ×3 (14:35→20:30)
--- NOTE | 2022-01-17 16:36 | Diagnostic Imaging Report ---
EXAMINATION: Chest, two views. HISTORY: Heart failure. COMPARISON: 01/15/2022. FINDINGS: There is moderate edema. Heart is enlarged. No pleural effusion or pneumothorax. Right port catheter tip terminates in the superior vena cava. IMPRESSION: 1. Cardiomegaly and moderate edema. Dictated by: Dictated on workstation # [id number]
[2022-01-17 19:33] VITALS: BP 120/64
[2022-01-17] MEDS: AtorvaSTATin TABLET 10 MG TABLET PO SCH (20:23)
[2022-01-17] MEDS: traZODone 50 MG (DESYREL) TAB PO SCH (20:23)
[2022-01-17] MEDS: MONTELUKAST 10 MG (SINGULAIR) TAB PO SCH (20:23)
[2022-01-17] MEDS: MELATONIN 3 MG TABLET PO SCH (20:24)
[2022-01-18 06:10] LABS: CALCIUM 8.6 MG/DL (8.5-10.1); CREATININE SERUM 1.41 MG/DL (0.60-1.30); POTASSIUM 4.4 MMOL/L (3.6-5.0)
[2022-01-18] MEDS: inSUlin ASPART (NovoLOG) 1 UNIT/0.01 ML (CHARGE PER UNIT) SC SCH ×4 (06:17→20:55)
--- NOTE | 2022-01-18 06:20 | PM&R Progress Note ---
Subjective HPI/CC On Admission Date Seen by Provider: Jan 18, 2022 Time Seen by Provider: 12:00 Subjective/Events-last exam 01/18/2022: Patient doing well Dr. Quinones set up second opinion with CHF program at Patient ultimately will likely require hospice Creatinine stable 01/17/2022: Family at bedside Patient and family go back and forth about hospice She wants to obtain a consultation and higher level of care for CHF but I seriously doubt we can keep her out of the hospital and healthy enough to do t hat up at a center like because the wait to get an appointment will be lengthy Zaroxolyn seems to be helpful 01/16/2022: Improved status but she still feels like she is retaining fluid Told her I would speak to Dr Hand who agreed with me she is end-stage and diuresis is the only management but CKD is an issue but he agreed with hospice No pain reported BM+ Catheter out Changed times of diuresis Review of Systems General: Fatigue, Malaise Pulmonary: Dyspnea Objective Exam Vital Signs Vital Signs Date Time Temp Pulse Resp B/P (MAP) Pulse Ox O2 Delivery O2 Flow Rate FiO2 01/18/22 20:23 37.0 85 18 115/56 (75) 97 Nasal Cannula 4.00 Capillary Refill : General Appearance: WD/WN, Anxious, Chronically ill, Mild Distress, Obese HEENT: PERRL/EOMI, Normal ENT Inspection, Pharynx Normal Neck: Full Range of Motion, Normal Inspection, Non Tender, Supple, Carotid Bruit Respiratory: No Accessory Muscle Use, No Respiratory Distress, Decreased Breath Sounds; No Wheezing Cardiovascular: Regular Rate, Rhythm, No Murmur Gastrointestinal: Normal Bowel Sounds, No Organomegaly, No Pulsatile Mass, Non Tender, Soft Back: Normal Inspection, No CVA Tenderness, No Vertebral Tenderness Extremity: Normal Capillary Refill, Normal Inspection, Normal Range of Motion, Non Tender, No Calf Tenderness, No Pedal Edema Neurologic/Psychiatric: Alert, Oriented x3, Normal Mood/Affect, exceptional student education aide II-XII Norm as Tested, Abnormal Gait, Motor Weakness (generalized) Skin: Normal Color, Warm/Dry Lymphatic: No Adenopathy Results/Procedures Lab Laboratory Tests 01/19/22 05:40 Patient resulted labs reviewed. FIM Transfers Therapy Code Descriptions/Definitions Functional [place] Measure: 0=Not Assessed/NA 4=Minimal Assistance 1=Total Assistance 5=Supervision or Setup 2=Maximal Assistance 6=Modified [place] 3=Moderate Assistance 7=Complete IndependenceSCALE: Activities may be completed with or without assistive devices. 6-Waxehzlcyc-qgqdazd completes the activity by him/herself with no assistance from a helper. 5-Set-up or Clean-up Assistance-helper sets up or cleans up; patient completes activity. [place] assists only prior to or following the activity. 4-Supervision or Touching Assistance-helper provides verbal cues and/or touching/steadying and/or contact guard assistance as patient completes activity. Assistance may be provided throughout the activity or intermittently. 3-Partial/Moderate Assistance-helper does LESS THAN HALF the effort. [place] lifts, holds or supports trunk or limbs, but provides less than half the effort. 2-Substantial/Maximal Assistance-helper does MORE THAN HALF the effort. [place] lifts or holds trunk or limbs and provides more than half the effort. 1-Xinanshru-mzcohc does ALL the effort. Patient does none of the effort to complete the activity. Or, the assistance of 2 or more helpers is required for the patient to complete the activity. If activity was not attempted, code reason: 7-Patient Refused. 9-Not Applicable-not attempted and the patient did not perform the activity before the current illness, exacerbation or injury. 10-Not Attempted due to Environmental Limitations-(lack of equipment, weather restraints, etc.). 88-Not Attempted due to Medical Conditions or Safety Concerns. Roll Left to Right (QC): 4 Sit to Lying (QC): 4 Sit to Stand (QC): 4 Chair/Evm-km-Bhxss Xfer(QC): 4 Car Transfer (QC): 4 Gait Training Does the Patient Walk?: Yes Distance: 150', 120', 120' Walk 10 feet (QC): 4 Walk 50 ft with 2 Turns(QC): 4 Walk 150 ft (QC): 4 Walking 10ft/uneven surface-QC: 4 Gait Persons Needed: 1 Gait Assistive Device: FWW Wheelchair Training Does the Pt Use a Wheelchair?: No Wheel 50 ft with 2 turns (QC): 9 Wheel 150 ft (QC): 9 Stair Training #of Steps: 16 1 Step (curb) (QC): 4 4 Steps (QC): 4 12 Steps (QC): 4 Balance Picking up an Object (QC): 3 ADL-Treatment Eating (QC): 6 Oral Hygiene (QC): 6 Shower/Bathe Self (QC): 4 Upper Body Dressing (QC): 5 Lower Body Dressing (QC): 3 On/Off Footwear (QC): 3 (Mod A) Toileting Hygiene (QC): 4 Toilet Transfer (QC): 4 Assessment/Plan Assessment and Plan Assess & Plan/Chief Complaint Assessment: CHF exacerbation - Given patient's failure to improve with furosemide up to 120 mg, bumetanide has been initiated to attain diuresis. Continue to monitor respiratory symptoms, fluid levels, and kidney function. Continue oxygen via NC. Dr. Quinones was consulted for cardiological management. He does not recommend intervention in the case of her mitral stenosis at this time. He does recommend beginning oral bumetanide or torsemide once appropriate to transition to oral medications. Kidney function is stable, patient SOB and swelling continue to improve. COPD - albuterol sulfate, budesonide, revefenacin Anxiety - alprazolam, buspirone Depression - venlafaxine Mitral stenosis - Cardiology does not recommend intervention at this time Primary hypertension - losartan, metoprolol Hyperlipidemia - atorvastatin initiated Type II DM - insulin aspart, insulin degludec GERD - pantoprazole Hypothyroidism - levothyroxine Bilateral CVA tenderness - kidney function has remained stable since initial labs were taken. Continue monitoring and consider instituting pharmacological treatment if pain worsens Abdominal hematoma - possibly due to lovenox injections, will continue to monitor for changes. Lovenox DCd Hospice care recommended upon discharge. Patient to be transferred to inpatient rehab before transfer to home hospice care Plan: Monitor CHF and O2 levels Monitor creat Fall risk Home meds 01/16/2022: Supportive care Diuresis 01/17/2022: Continue therapy End stage CHF management 01/18/2022: Supportive care (1) Acute on chronic heart failure with preserved ejection fraction (HFpEF) Status: Acute FERN BAILEY DO Jan 18, 2022 06:20
[2022-01-18] MEDS: PANTOPRAZOLE 40 MG (PROTONIX) TAB PO SCH (06:41)
[2022-01-18] MEDS: BUMETANIDE 1 MG/4 ML (BUMEX) VIAL IV SCH ×2 (06:41→16:12)
[2022-01-18] MEDS: KCL 10 MEQ TAB (MICRO K) PO SCH (06:41)
[2022-01-18] MEDS: inSUlin ASPART (NovoLOG) 1 UNIT/0.01 ML (CHARGE PER UNIT) SQ SCH (06:42)
[2022-01-18] MEDS: LEVOTHYROXINE 125 MCG (LEVOTHROID) TABLET PO SCH (06:42)
[2022-01-18 07:15] VITALS: BP 133/84
[2022-01-18] MEDS: RT-ALBUTEROL SULF 2.5 MG/3 ML PRE-MIX VIAL INH SCH ×3 (08:08→19:51)
[2022-01-18] MEDS: RT-BUDESONIDE NEBS 0.5 MG/2ML (PULMICORT) AMP IH SCH ×2 (08:09→19:46)
[2022-01-18] MEDS: ZINC SULFATE 220 MG CAPSULE PO SCH (08:52)
[2022-01-18] MEDS: DOCUSATE SODIUM 100 MG (COLACE) CAP PO SCH ×2 (08:52→19:59)
[2022-01-18] MEDS: SENNOSIDES 8.6 MG (SENOKOT) TAB PO SCH ×2 (08:52→19:58)
[2022-01-18] MEDS: ASCORBIC ACID (VIT C) 500 MG TABLET PO SCH (08:52)
[2022-01-18] MEDS: VENlafaxine XR 75 MG (EFFEXOR XR) CAP PO SCH (08:52)
[2022-01-18] MEDS: GABAPENTIN 300 MG (NEURONTIN) CAP PO SCH ×4 (08:52→20:00)
[2022-01-18] MEDS: ASPIRIN E.C. 81 MG (ECOTRIN) TAB PO SCH (08:52)
[2022-01-18] MEDS: SILDENAFIL 20 MG (REVATIO) TAB PO SCH ×3 (08:53→19:58)
[2022-01-18] MEDS: VITAMIN D3 125 MCG (5,000 UNITS) CAPSULE PO SCH (08:53)
[2022-01-18] MEDS: busPIRone 5 MG (BUSPAR) TAB PO SCH ×2 (08:53→19:57)
[2022-01-18] MEDS: MICONAZOLE 2% POWDER (DESENEX AF) 90 GM TOP SCH ×2 (08:55→19:59)
[2022-01-18] MEDS: SALINE NASAL SPRAY (OCEAN) 45 ML BTL SCH ×4 (09:01→20:00)
[2022-01-18] MEDS: polyethylene glycoL POWDER 17 GM (MIRALAX) PACK PO SCH ×2 (09:02→19:51)
[2022-01-18] MEDS ORDERED: BUMETANIDE 1 MG/4 ML (BUMEX) VIAL IV ONE (10:15)
--- NOTE | 2022-01-18 10:22 | Cardiology Progress Note ---
Progress Note-Cardiology Events since last exam Date Seen by Provider: Jan 18, 2022 Time Seen by Provider: 10:16 Events since last exam I am following her due to heart failure. She remains on the inpatient physical rehabilitation unit. She continues to work with physical therapy and her breathing continues to improve. Her peripheral edema has resolved. She denies chest pain, palpitations, or syncope. She has requested a referral to an advanced heart failure team at [facility]. Certain portions of this document may have been dictated utilizing voice recognition technology. Inherent to this technology, typographical and grammatical errors may exist. As much as I am diligent to identify and correct these mistakes, some errors may remain in the document. Vitals Last set of Vitals Signs Vital Signs 01/18/22 01/18/22 01/18/22 07:15 08:09 08:14 Temp 36.7 Pulse 87 Resp 20 B/P (MAP) 133/84 (100) Pulse Ox 97 O2 Delivery Nasal Cannula O2 Flow Rate 4.00 Labs Labs Laboratory Tests 01/18/22 05:25 Exam Vital Signs Vital Signs Date Time Temp Pulse Resp B/P (MAP) Pulse Ox O2 Delivery O2 Flow Rate FiO2 01/18/22 08:14 Nasal Cannula 4.00 01/18/22 08:09 97 01/18/22 07:15 36.7 87 20 133/84 (100) Physical Exam General: Alert. No acute distress. She is obese. Eye: No xanthelasma. HENT: Normocephalic. Neck: Jugular venous pressure does not appear elevated. Respiratory: Lungs are clear to auscultation but decreased at the bases bilaterally. Respirations are non-labored. Breath sounds are equal. Symmetrical chest wall expansion. Cardiovascular: Normal rate. Regular rhythm. Distant S1/S2. No murmur. No gallop. No edema. Gastrointestinal: Soft. Normal bowel sounds. Skin: Warm. Dry. Neurologic: Alert and oriented to person, place, time. Cranial nerves 3-11 grossly intact. Psychiatric: Cooperative. Appropriate mood & affect. Labs Laboratory Tests Test 01/17/22 15:11 01/17/22 20:22 01/18/22 05:25 Range/Units Glucometer 149 H 167 H 70-110 MG/DL Sodium Level 142 135-145 MMOL/L Potassium Level 4.4 3.6-5.0 MMOL/L Chloride Level 98 98-107 MMOL/L Carbon Dioxide Level 30 21-32 MMOL/L Anion Gap 14 5-14 MMOL/L Blood Urea Nitrogen 34 H 7-18 MG/DL Creatinine 1.41 H 0.60-1.30 MG/DL Estimat Glomerular Filtration Rate 41 BUN/Creatinine Ratio 24 Glucose Level 169 H 70-105 MG/DL Calcium Level 8.6 8.5-10.1 MG/DL Diagnosis/Problems Diagnosis/Problems (1) Acute on chronic heart failure with preserved ejection fraction (HFpEF) Status: Acute Assessment & Plan: Symptomatically she has improved but she is still has significant congestion on her chest x-ray. I will increase the dose of bumetanide. She has been ordered for metolazone every 48 hours. I will discontinue this for the time being. I previously planned to change her oral furosemide over to oral bumetanide which will have better absorption and may provide better diuresis after discharge. She may not need the metolazone following discharge. I have also ordered a fluid restriction. Once she has been discharged home, I will make a referral to the advanced heart failure team at [facility] per her and her family's request. Being on hospice does not make this a contraindication. (2) Pulmonary hypertension Status: Chronic Assessment & Plan: This is being followed by a books binder at [place]. She takes in the sildenafil which has been continued. She is also on home oxygen. (3) Mitral stenosis Status: Chronic Assessment & Plan: This is in a mild to moderate range and I would not suspect this to be contributing to her symptoms but this will need to be followed. (4) Primary hypertension Status: Chronic Assessment & Plan: Blood pressure is reasonably controlled on a low-dose of metoprolol. (5) Mixed hyperlipidemia Status: Chronic Assessment & Plan: Continue statin. (6) Acute on chronic respiratory failure with hypoxemia Status: Acute Assessment & Plan: Most likely multifactorial. Continue with supplemental oxygen. (7) Stage 3a chronic kidney disease Status: Chronic Assessment & Plan: I have ordered daily BMPs on the intravenous diuretic. I need to watch her renal function closely. Fortunately, her renal function has been reasonably stable despite the intravenous diuretic for several days. (8) Type 2 diabetes mellitus with complication Status: Chronic Assessment & Plan: This is being managed by the hospitalist. (9) Morbid obesity Status: Chronic Assessment & Plan: She needs to work on weight loss. She has been counseled about this in the past on numerous occasions. JEANMARIE GRIFFITH JR, MD Jan 18, 2022 10:22
--- NOTE | 2022-01-18 10:48 | Physical Therapy Daily Note ---
PT Daily Note-Current Subjective Upon arrival, RN was present with pt. Pt was seated in recliner. Pt had call light and tray in reach. Pt states her sleep was fair, due to getting up in the night to use BR. Pt states she has low back pain and rates 4/10. Pt agrees to PT. Pain Section J - Health Conditions 1. Rarely or not at all 2. Occasionally 3. Frequently 4. Almost constantly 8. Unable to answer Pain Effect on Sleep: 2 Pain Interference with Therapy: 2 Pain Interference w/Day-to-Day: 2 Mental Status Patient Orientation: Person, Time, Situation Attachments: Oxygen (4L) Transfers SCALE: Activities may be completed with or without assistive devices. 9-Eyqijkicuf-wtjlllm completes the activity by him/herself with no assistance from a helper. 5-Set-up or Clean-up Assistance-helper sets up or cleans up; patient completes activity. [place] assists only prior to or following the activity. 4-Supervision or Touching Assistance-helper provides verbal cues and/or touching/steadying and/or contact guard assistance as patient completes activity. Assistance may be provided throughout the activity or intermittently. 3-Partial/Moderate Assistance-helper does LESS THAN HALF the effort. [place] lifts, holds or supports trunk or limbs, but provides less than half the effort. 2-Substantial/Maximal Assistance-helper does MORE THAN HALF the effort. [place] lifts or holds trunk or limbs and provides more than half the effort. 6-Feungngyh-gzfidl does ALL the effort. Patient does none of the effort to complete the activity. Or, the assistance of 2 or more helpers is required for the patient to complete the activity. If activity was not attempted, code reason: 7-Patient Refused. 9-Not Applicable-not attempted and the patient did not perform the activity before the current illness, exacerbation or injury. 10-Not Attempted due to Environmental Limitations-(lack of equipment, weather restraints, etc.). 88-Not Attempted due to Medical Conditions or Safety Concerns. Sit to Stand (QC): 4 Pt was able to stand on her own. Pt was SBA. Weight Bearing Right Lower Extremity: Right Full Weight Bearing Left Lower Extremity: Left Full Weight Bearing Gait Training Does the Patient Walk?: Yes Distance: 150 Walk 10 feet (QC): 4 Walk 50 ft with 2 Turns(QC): 4 Walk 150 ft (QC): 4 Gait Persons Needed: 1 Gait Assistive Device: FWW Pt ambulated from room around RN station and back to room. Pts GT was slow, but steady. Pt was CGA/SBA with ambulation. Pt demonstrates no LOB. Exercises Seated Therapy Exercises: Ankle pumps (20), Long arc quads, Hip flexion, Hamstring Curls, Hip abd/add Seated Reps: 15 Treatments Pt completed all exercises listed above. Pt ambulated from room around RN station to other room. Once PT was concluded, pt was seated in recliner with O2 attached to wall, call light and tray in reach and all needs met. Assessment Current Status: Good Progress Pt would benefit from continued skilled PT to address strength, and activity tolerance. PT Shelter Goals Clothes Presser Goals PT Shelter Goals Time Frame: Feb 08, 2022 Roll Left & Right (QC): 6 Sit to Lying (QC): 6 Lying-Sitting on Side/Bed(QC): 6 Sit to Stand (QC): 6 Chair/Shf-ce-Izgfs Xfer(QC): 6 Toilet Transfer (QC): 6 Car Transfer (QC): 6 Does the Patient Walk: Yes Walk 10 feet (QC): 6 Walk 50ft with 2 Turns (QC): 6 Walk 150 ft (QC): 6 Walking 10ft on Uneven Surface: 6 1 Step (curb) (QC): 6 4 Steps (QC): 6 12 Steps (QC): 6 Picking up an Object (QC): 6 Does the Pt use WC or Scooter?: No Wheel 50 feet with 2 turns (QC: 9 Wheel 150 feet: 9 PT Plan Problem List Problem List: Activity Tolerance, Functional Strength Treatment/Plan Treatment Plan: Continue Plan of Care Treatment Plan: Bed Mobility, Education, Functional Activity Lola, Functional Strength, Group Therapy, Gait, Safety, Therapeutic Exercise, Transfers Treatment Duration: Mar 08, 2022 Frequency: At least 5 of 7 days/Wk (IRF) Estimated Hrs Per Day: 1.5 hours per day Patient and/or Family Agrees t: Yes Time Time In: 855 Time Out: 913 DATE: Jan 18, 2022 Total Billed Treatment Time: 18 Total Billed Treatment 1, GT (8), Ex (10) GEORGE 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
[2022-01-18] MEDS: UMECLIDINIUM BROMIDE (INCRUSE ELLIPTA) 7'S IH SCH (11:41)
[2022-01-18] MEDS ORDERED: BUMETANIDE 1 MG/4 ML (BUMEX) VIAL ONE (12:37)
[2022-01-18] MEDS: MELATONIN 3 MG TABLET PO SCH (19:58)
[2022-01-18] MEDS: MONTELUKAST 10 MG (SINGULAIR) TAB PO SCH (19:58)
[2022-01-18] MEDS: AtorvaSTATin TABLET 10 MG TABLET PO SCH (19:59)
[2022-01-18] MEDS: traZODone 50 MG (DESYREL) TAB PO SCH (20:00)
[2022-01-18 20:23] VITALS: BP 115/56
[2022-01-19 06:12] LABS: POTASSIUM 3.9 MMOL/L (3.6-5.0)
[2022-01-19 06:13] LABS: CALCIUM 8.6 MG/DL (8.5-10.1)
[2022-01-19 06:17] LABS: CREATININE SERUM 1.42 MG/DL (0.60-1.30)
[2022-01-19] MEDS: inSUlin ASPART (NovoLOG) 1 UNIT/0.01 ML (CHARGE PER UNIT) SC SCH ×4 (06:28→20:17)
[2022-01-19] MEDS: KCL 10 MEQ TAB (MICRO K) PO SCH (06:33)
[2022-01-19] MEDS: PANTOPRAZOLE 40 MG (PROTONIX) TAB PO SCH (06:33)
[2022-01-19] MEDS: LEVOTHYROXINE 125 MCG (LEVOTHROID) TABLET PO SCH (06:33)
[2022-01-19] MEDS: BUMETANIDE 1 MG/4 ML (BUMEX) VIAL IV SCH ×2 (06:33→16:29)
[2022-01-19] MEDS: inSUlin ASPART (NovoLOG) 1 UNIT/0.01 ML (CHARGE PER UNIT) SQ SCH (06:34)
--- NOTE | 2022-01-19 07:08 | PM&R Progress Note ---
Subjective HPI/CC On Admission Date Seen by Provider: Jan 19, 2022 Time Seen by Provider: 12:00 Subjective/Events-last exam 01/19/2022: Doing well BM today Refused Levemir No pain reported 01/18/2022: Patient doing well Dr. Quinones set up second opinion with CHF program at Patient ultimately will likely require hospice Creatinine stable 01/17/2022: Family at bedside Patient and family go back and forth about hospice She wants to obtain a consultation and higher level of care for CHF but I seriously doubt we can keep her out of the hospital and healthy enough to do that up at a center like because the wait to get an appointment will be lengthy Zaroxolyn seems to be helpful 01/16/2022: Improved status but she still feels like she is retaining fluid Told her I would speak to Dr Hand who agreed with me she is end-stage and diuresis is the only management but CKD is an issue but he agreed with hospice No pain reported BM+ Catheter out Changed times of diuresis Review of Systems General: Fatigue, Malaise Pulmonary: Dyspnea Cardiovascular: Edema Objective Exam Vital Signs Vital Signs Date Time Temp Pulse Resp B/P (MAP) Pulse Ox O2 Delivery O2 Flow Rate FiO2 01/19/22 19:52 36.8 84 20 136/60 (85) 95 Nasal Cannula 4.00 Capillary Refill : General Appearance: WD/WN, Anxious, Chronically ill, Mild Distress, Obese HEENT: PERRL/EOMI, Normal ENT Inspection, Pharynx Normal Neck: Full Range of Motion, Normal Inspection, Non Tender, Supple, Carotid Bruit Respiratory: No Accessory Muscle Use, No Respiratory Distress, Decreased Breath Sounds; No Wheezing Cardiovascular: Regular Rate, Rhythm, No Murmur Gastrointestinal: Normal Bowel Sounds, No Organomegaly, No Pulsatile Mass, Non Tender, Soft Back: Normal Inspection, No CVA Tenderness, No Vertebral Tenderness Extremity: Normal Capillary Refill, Normal Inspection, Normal Range of Motion, Non Tender, No Calf Tenderness, No Pedal Edema Neurologic/Psychiatric: Alert, Oriented x3, Normal Mood/Affect, freight handler II-XII Norm as Tested, Abnormal Gait, Motor Weakness (generalized) Skin: Normal Color, Warm/Dry Lymphatic: No Adenopathy Results/Procedures Lab Laboratory Tests 01/19/22 05:40 Patient resulted labs reviewed. FIM Transfers Therapy Code Descriptions/Definitions Functional [place] Measure: 0=Not Assessed/NA 4=Minimal Assistance 1=Total Assistance 5=Supervision or Setup 2=Maximal Assistance 6=Modified [place] 3=Moderate Assistance 7=Complete IndependenceSCALE: Activities may be completed with or without assistive devices. 7-Swzsdbkzld-nhlzark completes the activity by him/herself with no assistance from a helper. 5-Set-up or Clean-up Assistance-helper sets up or cleans up; patient completes activity. [place] assists only prior to or following the activity. 4-Supervision or Touching Assistance-helper provides verbal cues and/or touching/steadying and/or contact guard assistance as patient completes activity. Assistance may be provided throughout the activity or intermittently. 3-Partial/Moderate Assistance-helper does LESS THAN HALF the effort. [place] lifts, holds or supports trunk or limbs, but provides less than half the effort. 2-Substantial/Maximal Assistance-helper does MORE THAN HALF the effort. [place] lifts or holds trunk or limbs and provides more than half the effort. 1-Tcccagvuf-badhcq does ALL the effort. Patient does none of the effort to complete the activity. Or, the assistance of 2 or more helpers is required for the patient to complete the activity. If activity was not attempted, code reason: 7-Patient Refused. 9-Not Applicable-not attempted and the patient did not perform the activity before the current illness, exacerbation or injury. 10-Not Attempted due to Environmental Limitations-(lack of equipment, weather restraints, etc.). 88-Not Attempted due to Medical Conditions or Safety Concerns. Roll Left to Right (QC): 4 Sit to Lying (QC): 4 Sit to Stand (QC): 4 Chair/Xlk-ux-Xltze Xfer(QC): 4 Car Transfer (QC): 4 Gait Training Does the Patient Walk?: Yes Distance: 150 Walk 10 feet (QC): 4 Walk 50 ft with 2 Turns(QC): 4 Walk 150 ft (QC): 4 Walking 10ft/uneven surface-QC: 4 Gait Persons Needed: 1 Gait Assistive Device: FWW Wheelchair Training Does the Pt Use a Wheelchair?: No Wheel 50 ft with 2 turns (QC): 9 Wheel 150 ft (QC): 9 Stair Training #of Steps: 16 1 Step (curb) (QC): 4 4 Steps (QC): 4 12 Steps (QC): 4 Balance Picking up an Object (QC): 3 ADL-Treatment Eating (QC): 6 Oral Hygiene (QC): 6 Shower/Bathe Self (QC): 4 Upper Body Dressing (QC): 5 Lower Body Dressing (QC): 3 On/Off Footwear (QC): 3 (Mod A) Toileting Hygiene (QC): 4 Toilet Transfer (QC): 4 Assessment/Plan Assessment and Plan Assess & Plan/Chief Complaint Assessment: CHF exacerbation - Given patient's failure to improve with furosemide up to 120 mg, bumetanide has been initiated to attain diuresis. Continue to monitor respiratory symptoms, fluid levels, and kidney function. Continue oxygen via [place]. Dr. Quinones was consulted for cardiological management. He does not recommend intervention in the case of her mitral stenosis at this time. He does recommend beginning oral bumetanide or torsemide once appropriate to transition to oral medications. Kidney function is stable, patient SOB and swelling continue to improve. COPD - albuterol sulfate, budesonide, revefenacin Anxiety - alprazolam, buspirone Depression - venlafaxine Mitral stenosis - Cardiology does not recommend intervention at this time Primary hypertension - losartan, metoprolol Hyperlipidemia - atorvastatin initiated Type II DM - insulin aspart, insulin degludec GERD - pantoprazole Hypothyroidism - levothyroxine Bilateral CVA tenderness - kidney function has remained stable since initial labs were taken. Continue monitoring and consider instituting pharmacological treatment if pain worsens Abdominal hematoma - possibly due to lovenox injections, will continue to monitor for changes. Lovenox DCd Hospice care recommended upon discharge. Patient to be transferred to inpatient rehab before transfer to home hospice care Plan: Monitor CHF and O2 levels Monitor creat Fall risk Home meds 01/16/2022: Supportive care Diuresis 01/17/2022: Continue therapy End stage CHF management 01/18/2022: Supportive care 01/19/2022: Monitor closely (1) Acute on chronic heart failure with preserved ejection fraction (HFpEF) Status: Acute Assessment & Plan: Symptomatically she has improved but she is still has significant congestion on her chest x-ray. I will increase the dose of bumetanide. She has been ordered for metolazone every 48 hours. I will discontinue this for the time being. I previously planned to change her oral furosemide over to oral bumetanide which will have better absorption and may provide better diuresis after discharge. She may not need the metolazone following discharge. I have also ordered a fluid restriction. Once she has been discharged home, I will make a referral to the advanced heart failure team at [facility] per her and her family's request. Being on hospice does not make this a contraindication. (2) Pulmonary hypertension Status: Chronic Assessment & Plan: This is being followed by a meat carver at [place]. She takes in the sildenafil which has been continued. She is also on home oxygen. (3) Mitral stenosis Status: Chronic Assessment & Plan: This is in a mild to moderate range and I would not suspect this to be contributing to her symptoms but this will need to be followed. (4) Primary hypertension Status: Chronic Assessment & Plan: Blood pressure is reasonably controlled on a low-dose of metoprolol. (5) Mixed hyperlipidemia Status: Chronic Assessment & Plan: Continue statin. (6) Acute on chronic respiratory failure with hypoxemia Status: Acute Assessment & Plan: Most likely multifactorial. Continue with supplemental oxygen. (7) Stage 3a chronic kidney disease Status: Chronic Assessment & Plan: I have ordered daily BMPs on the intravenous diuretic. I need to watch her renal function closely. Fortunately, her renal function has been reasonably stable despite the intravenous diuretic for several days. (8) Type 2 diabetes mellitus with complication Status: Chronic Assessment & Plan: This is being managed by the hospitalist. (9) Morbid obesity Status: Chronic Assessment & Plan: She needs to work on weight loss. She has been counseled about this in the past on numerous occasions. FERN BAILEY DO Jan 19, 2022 07:08
[2022-01-19 07:30] VITALS: BP 108/69
[2022-01-19] MEDS: RT-ALBUTEROL SULF 2.5 MG/3 ML PRE-MIX VIAL INH SCH ×3 (08:06→21:45)
[2022-01-19] MEDS: RT-BUDESONIDE NEBS 0.5 MG/2ML (PULMICORT) AMP IH SCH ×2 (08:06→21:45)
[2022-01-19] MEDS: SALINE NASAL SPRAY (OCEAN) 45 ML BTL SCH ×4 (09:00→20:44)
[2022-01-19] MEDS: polyethylene glycoL POWDER 17 GM (MIRALAX) PACK PO SCH ×2 (09:00→20:17)
[2022-01-19] MEDS: SILDENAFIL 20 MG (REVATIO) TAB PO SCH ×3 (10:22→20:22)
[2022-01-19] MEDS: GABAPENTIN 300 MG (NEURONTIN) CAP PO SCH ×4 (10:22→20:21)
[2022-01-19] MEDS: ZINC SULFATE 220 MG CAPSULE PO SCH (10:22)
[2022-01-19] MEDS: ASPIRIN E.C. 81 MG (ECOTRIN) TAB PO SCH (10:22)
[2022-01-19] MEDS: ASCORBIC ACID (VIT C) 500 MG TABLET PO SCH (10:22)
[2022-01-19] MEDS: SENNOSIDES 8.6 MG (SENOKOT) TAB PO SCH ×2 (10:22→20:44)
[2022-01-19] MEDS: busPIRone 5 MG (BUSPAR) TAB PO SCH ×2 (10:23→20:22)
[2022-01-19] MEDS: DOCUSATE SODIUM 100 MG (COLACE) CAP PO SCH ×2 (10:23→20:44)
[2022-01-19] MEDS: VENlafaxine XR 75 MG (EFFEXOR XR) CAP PO SCH (10:23)
[2022-01-19] MEDS: VITAMIN D3 125 MCG (5,000 UNITS) CAPSULE PO SCH (10:23)
--- NOTE | 2022-01-19 11:54 | Cardiology Progress Note ---
Progress Note-Cardiology Events since last exam Date Seen by Provider: Jan 19, 2022 Time Seen by Provider: 11:52 Events since last exam I am following her due to heart failure. She remains on our inpatient physical rehabilitation unit. She has minimal ankle edema today. She denies dyspnea at rest. She denies chest pain, palpitations, or syncope. Certain portions of this document may have been dictated utilizing voice recognition technology. Inherent to this technology, typographical and grammatical errors may exist. As much as I am diligent to identify and correct these mistakes, some errors may remain in the document. Vitals Last set of Vitals Signs Vital Signs 01/19/22 01/19/22 07:30 12:03 Temp 36.6 Pulse 85 Resp 20 B/P (MAP) 108/69 (82) Pulse Ox 94 O2 Delivery Nasal Cannula O2 Flow Rate 4.00 Labs Labs Laboratory Tests 01/19/22 05:40 Exam Vital Signs Vital Signs Date Time Temp Pulse Resp B/P (MAP) Pulse Ox O2 Delivery O2 Flow Rate FiO2 01/19/22 12:03 94 Nasal Cannula 4.00 01/19/22 07:30 36.6 85 20 108/69 (82) Physical Exam General: Alert. No acute distress. She is obese. Eye: No xanthelasma. HENT: Normocephalic. Neck: Jugular venous pressure does not appear elevated. Respiratory: Lungs are clear to auscultation. Respirations are non-labored. Breath sounds are equal. Symmetrical chest wall expansion. Cardiovascular: Normal rate. Regular rhythm. Distant S1/S2. No murmur. No gallop. Trace bilateral pretibial edema. Gastrointestinal: Soft. Normal bowel sounds. Skin: Warm. Dry. Neurologic: Alert and oriented to person, place, time. Cranial nerves 3-11 grossly intact. Psychiatric: Cooperative. Appropriate mood & affect. Labs Laboratory Tests Test 01/18/22 20:48 01/19/22 05:40 01/19/22 05:47 01/19/22 11:00 Range/Units Glucometer 173 H 168 H 201 H 70-110 MG/DL Sodium Level 139 135-145 MMOL/L Potassium Level 3.9 3.6-5.0 MMOL/L Chloride Level 96 L 98-107 MMOL/L Carbon Dioxide Level 31 21-32 MMOL/L Anion Gap 12 5-14 MMOL/L Blood Urea Nitrogen 35 H 7-18 MG/DL Creatinine 1.42 H 0.60-1.30 MG/DL Estimat Glomerular Filtration Rate 40 BUN/Creatinine Ratio 25 Glucose Level 176 H 70-105 MG/DL Calcium Level 8.6 8.5-10.1 MG/DL Diagnosis/Problems Diagnosis/Problems (1) Acute on chronic heart failure with preserved ejection fraction (HFpEF) Status: Acute Assessment & Plan: Symptomatically she has improved but she is still has significant congestion on her most recent chest x-ray. I increased the dose of IV bumetanide on 01/18. She had been ordered for metolazone every 48 hours. I discontinued this on 01/18 for the time being. I previously planned to change her oral furosemide over to oral bumetanide which will have better absorption and may provide better diuresis after discharge. She may not need the metolazone following discharge. I have also ordered a fluid restriction. Once she has been discharged home, I will make a referral to the advanced heart failure team at [facility] per her and her family's request. Being on hospice does not make this a contraindication. (2) Pulmonary hypertension Status: Chronic Assessment & Plan: This is being followed by a heater operator helper at [place]. She takes in the sildenafil which has been continued. She is also on home oxygen. (3) Primary hypertension Status: Chronic Assessment & Plan: Blood pressure is reasonably controlled on a low-dose of metoprolol. (4) Mitral stenosis Status: Chronic Assessment & Plan: This is in a mild to moderate range and I would not suspect this to be contributing to her symptoms but this will need to be followed. (5) Mixed hyperlipidemia Status: Chronic Assessment & Plan: Continue statin. (6) Acute on chronic respiratory failure with hypoxemia Status: Acute Assessment & Plan: Most likely multifactorial. Continue with supplemental oxygen. (7) Stage 3a chronic kidney disease Status: Chronic Assessment & Plan: I have ordered daily BMPs on the intravenous diuretic. We need to watch her renal function closely. Fortunately, her renal function has been reasonably stable despite the intravenous diuretic since admission. (8) Type 2 diabetes mellitus with complication Status: Chronic Assessment & Plan: This is being managed by the hospitalist. (9) Morbid obesity Status: Chronic Assessment & Plan: She needs to work on weight loss. She has been counseled about this in the past on numerous occasions. JEANMARIE GRIFFITH JR, MD Jan 19, 2022 11:54
[2022-01-19] MEDS: UMECLIDINIUM BROMIDE (INCRUSE ELLIPTA) 7'S IH SCH (12:03)
[2022-01-19] MEDS ORDERED: BUMETANIDE 1 MG/4 ML (BUMEX) VIAL ONE (16:31)
[2022-01-19] MEDS: MICONAZOLE 2% POWDER (DESENEX AF) 90 GM TOP SCH ×2 (17:08→20:23)
[2022-01-19 19:52] VITALS: BP 136/60
[2022-01-19] MEDS: traZODone 50 MG (DESYREL) TAB PO SCH (20:21)
[2022-01-19] MEDS: MELATONIN 3 MG TABLET PO SCH (20:22)
[2022-01-19] MEDS: MONTELUKAST 10 MG (SINGULAIR) TAB PO SCH (20:22)
[2022-01-19] MEDS: AtorvaSTATin TABLET 10 MG TABLET PO SCH (20:22)
--- NOTE | 2022-01-20 05:25 | PM&R Progress Note ---
Subjective HPI/CC On Admission Date Seen by Provider: Jan 20, 2022 Time Seen by Provider: 08:30 Subjective/Events-last exam 01/20/2022: Patient doing really well Labs remained stable Creatinine 1.69 Bowels moved today Blood sugars are reasonable at 175 01/19/2022: Doing well BM today Refused Levemir No pain reported 01/18/2022: Patient doing well Dr. Quinones set up second opinion with CHF program at Patient ultimately will likely require hospice Creatinine stable 01/17/2022: Family at bedside Patient and family go back and forth about hospice She wants to obtain a consultation and higher level of care for CHF but I seriously doubt we can keep her out of the hospital and healthy enough to do shy t up at a center like because the wait to get an appointment will be lengthy Zaroxolyn seems to be helpful 01/16/2022: Improved status but she still feels like she is retaining fluid Told her I would speak to Dr Hand who agreed with me she is end-stage and diuresis is the only management but CKD is an issue but he agreed with hospice No pain reported BM+ Catheter out Changed times of diuresis Review of Systems General: Fatigue, Malaise Objective Exam Vital Signs Vital Signs Date Time Temp Pulse Resp B/P (MAP) Pulse Ox O2 Delivery O2 Flow Rate FiO2 01/20/22 20:30 Nasal Cannula 4.00 01/20/22 20:30 35.9 80 18 115/79 (91) 98 Capillary Refill : General Appearance: WD/WN, Anxious, Chronically ill, Mild Distress, Obese HEENT: PERRL/EOMI, Normal ENT Inspection, Pharynx Normal Neck: Full Range of Motion, Normal Inspection, Non Tender, Supple, Carotid Bruit Respiratory: No Accessory Muscle Use, No Respiratory Distress, Decreased Breath Sounds; No Wheezing Cardiovascular: Regular Rate, Rhythm, No Murmur Gastrointestinal: Normal Bowel Sounds, No Organomegaly, No Pulsatile Mass, Non Tender, Soft Back: Normal Inspection, No CVA Tenderness, No Vertebral Tenderness Extremity: Normal Capillary Refill, Normal Inspection, Normal Range of Motion, Non Tender, No Calf Tenderness, No Pedal Edema Neurologic/Psychiatric: Alert, Oriented x3, Normal Mood/Affect, safety representative II-XII Norm as Tested, Abnormal Gait, Motor Weakness (generalized) Skin: Normal Color, Warm/Dry Lymphatic: No Adenopathy Results/Procedures Lab Laboratory Tests 01/20/22 05:10 01/20/22 05:20 Patient resulted labs reviewed. FIM Transfers Therapy Code Descriptions/Definitions Functional [place] Measure: 0=Not Assessed/NA 4=Minimal Assistance 1=Total Assistance 5=Supervision or Setup 2=Maximal Assistance 6=Modified [place] 3=Moderate Assistance 7=Complete IndependenceSCALE: Activities may be completed with or without assistive devices. 2-Dgufzaqfdk-qqartbf completes the activity by him/herself with no assistance from a helper. 5-Set-up or Clean-up Assistance-helper sets up or cleans up; patient completes activity. [place] assists only prior to or following the activity. 4-Supervision or Touching Assistance-helper provides verbal cues and/or touching/steadying and/or contact guard assistance as patient completes activity. Assistance may be provided throughout the activity or intermittently. 3-Partial/Moderate Assistance-helper does LESS THAN HALF the effort. [place] lifts, holds or supports trunk or limbs, but provides less than half the effort. 2-Substantial/Maximal Assistance-helper does MORE THAN HALF the effort. [place] lifts or holds trunk or limbs and provides more than half the effort. 9-Hyjohbeem-muqmew does ALL the effort. Patient does none of the effort to complete the activity. Or, the assistance of 2 or more helpers is required for t he patient to complete the activity. If activity was not attempted, code reason: 7-Patient Refused. 9-Not Applicable-not attempted and the patient did not perform the activity before the current illness, exacerbation or injury. 10-Not Attempted due to Environmental Limitations-(lack of equipment, weather restraints, etc.). 88-Not Attempted due to Medical Conditions or Safety Concerns. Roll Left to Right (QC): 4 Sit to Lying (QC): 4 Sit to Stand (QC): 4 Chair/Gdl-mt-Kmwis Xfer(QC): 4 Car Transfer (QC): 4 Gait Training Does the Patient Walk?: Yes Distance: 150 Walk 10 feet (QC): 4 Walk 50 ft with 2 Turns(QC): 4 Walk 150 ft (QC): 4 Walking 10ft/uneven surface-QC: 4 Gait Persons Needed: 1 Gait Assistive Device: FWW Wheelchair Training Does the Pt Use a Wheelchair?: No Wheel 50 ft with 2 turns (QC): 9 Wheel 150 ft (QC): 9 Stair Training #of Steps: 16 1 Step (curb) (QC): 4 4 Steps (QC): 4 12 Steps (QC): 4 Balance Picking up an Object (QC): 3 ADL-Treatment Eating (QC): 6 Oral Hygiene (QC): 6 Shower/Bathe Self (QC): 4 Upper Body Dressing (QC): 5 Lower Body Dressing (QC): 3 On/Off Footwear (QC): 3 (Mod A) Toileting Hygiene (QC): 4 Toilet Transfer (QC): 4 Assessment/Plan Assessment and Plan Assess & Plan/Chief Complaint Assessment: CHF exacerbation - Given patient's failure to improve with furosemide up to 120 mg, bumetanide has been initiated to attain diuresis. Continue to monitor respiratory symptoms, fluid levels, and kidney function. Continue oxygen via [place]. Dr. Quinones was consulted for cardiological management. He does not recommend intervention in the case of her mitral stenosis at this time. He does recommend beginning oral bumetanide or torsemide once appropriate to transition to oral medications. Kidney function is stable, patient SOB and swelling continue to improve. COPD - albuterol sulfate, budesonide, revefenacin Anxiety - alprazolam, buspirone Depression - venlafaxine Mitral stenosis - Cardiology does not recommend intervention at this time Primary hypertension - losartan, metoprolol Hyperlipidemia - atorvastatin initiated Type II DM - insulin aspart, insulin degludec GERD - pantoprazole Hypothyroidism - levothyroxine Bilateral CVA tenderness - kidney function has remained stable since initial labs were taken. Continue monitoring and consider instituting pharmacological treatment if pain worsens Abdominal hematoma - possibly due to lovenox injections, will continue to monitor for changes. Lovenox DCd Hospice care recommended upon discharge. Patient to be transferred to inpatient rehab before transfer to home hospice care Plan: Monitor CHF and O2 levels Monitor creat Fall risk Home meds 01/16/2022: Supportive care Diuresis 01/17/2022: Continue therapy End stage CHF management 01/18/2022: Supportive care 01/19/2022: Monitor closely 01/20/2022: Monitoring closely Continue diuresis (1) Acute on chronic heart failure with preserved ejection fraction (HFpEF) Status: Acute Assessment & Plan: Symptomatically she has improved but she is still has significant congestion on her most recent chest x-ray. I increased the dose of IV bumetanide on 01/18. She had been ordered for metolazone every 48 hours. I discontinued this on 01/18 for the time being. I previously planned to change her oral furosemide over to oral bumetanide which will have better absorption and may provide better diuresis after discharge. She may not need the metolazone following discharge. I have also ordered a fluid restriction. Once she has been discharged home, I will make a referral to the advanced heart failure team at [facility] per her and her family's request. Being on hospice does not make this a contraindication. (2) Pulmonary hypertension Status: Chronic Assessment & Plan: This is being followed by a labor and employment paralegal at [place]. She takes in the sildenafil which has been continued. She is also on home oxygen. (3) Primary hypertension Status: Chronic Assessment & Plan: Blood pressure is reasonably controlled on a low-dose of metoprolol. (4) Mitral stenosis Status: Chronic Assessment & Plan: This is in a mild to moderate range and I would not suspect this to be contributing to her symptoms but this will need to be followed. (5) Mixed hyperlipidemia Status: Chronic Assessment & Plan: Continue statin. (6) Acute on chronic respiratory failure with hypoxemia Status: Acute Assessment & Plan: Most likely multifactorial. Continue with supplemental oxygen. (7) Stage 3a chronic kidney disease Status: Chronic Assessment & Plan: I have ordered daily BMPs on the intravenous diuretic. We need to watch her renal function closely. Fortunately, her renal function has been reasonably stable despite the intravenous diuretic since admission. (8) Type 2 diabetes mellitus with complication Status: Chronic Assessment & Plan: This is being managed by the hospitalist. (9) Morbid obesity Status: Chronic Assessment & Plan: She needs to work on weight loss. She has been counseled ab out this in the past on numerous occasions. FERN BAILEY DO Jan 20, 2022 05:25
[2022-01-20] MEDS: inSUlin ASPART (NovoLOG) 1 UNIT/0.01 ML (CHARGE PER UNIT) SC SCH ×4 (05:26→20:31)
[2022-01-20 05:29] LABS: BASOPHILS # (AUTO) 0.1 10^3/uL (0.0-0.1); BASOPHILS % (AUTO) 1 % (0-10); EOSINOPHILS # (AUTO) 0.6 10^3/uL (0.0-0.3); EOSINOPHILS % (AUTO) 6 % (0-10); HEMATOCRIT 32 % (35-52); HEMOGLOBIN 9.6 g/dL (11.5-16.0); LYMPHOCYTES % (AUTO) 9 % (12-44); MEAN CORPUSCULAR HEMOGLOBIN 32 pg (25-34); MEAN CORPUSCULAR HGB CONC 30 g/dL (32-36); MEAN CORPUSCULAR VOLUME 105 fL (80-99); MEAN PLATELET VOLUME 9.5 fL (9.0-12.2); MONOCYTES # (AUTO) 0.6 10^3/uL (0.0-1.0); MONOCYTES % (AUTO) 5 % (0-12); NEUTROPHILS # (AUTO) 8.5 10^3/uL (1.8-7.8); NEUTROPHILS % (AUTO) 79 % (42-75); PLATELET COUNT 173 10^3/uL (130-400); WHITE BLOOD COUNT 10.7 10^3/uL (4.3-11.0)
[2022-01-20 05:57] LABS: ALBUMIN 3.4 GM/DL (3.2-4.5); BILIRUBIN,TOTAL 0.4 MG/DL (0.1-1.0); CALCIUM 8.6 MG/DL (8.5-10.1); CREATININE SERUM 1.69 MG/DL (0.60-1.30); POTASSIUM 4.2 MMOL/L (3.6-5.0)
[2022-01-20] MEDS: BUMETANIDE 1 MG/4 ML (BUMEX) VIAL IV SCH (06:28)
[2022-01-20] MEDS: KCL 10 MEQ TAB (MICRO K) PO SCH (06:29)
[2022-01-20] MEDS: PANTOPRAZOLE 40 MG (PROTONIX) TAB PO SCH (06:29)
[2022-01-20] MEDS: LEVOTHYROXINE 125 MCG (LEVOTHROID) TABLET PO SCH (06:29)
[2022-01-20] MEDS: inSUlin ASPART (NovoLOG) 1 UNIT/0.01 ML (CHARGE PER UNIT) SQ SCH (06:30)
[2022-01-20] MEDS: RT-BUDESONIDE NEBS 0.5 MG/2ML (PULMICORT) AMP IH SCH ×2 (07:10→22:45)
[2022-01-20] MEDS: RT-ALBUTEROL SULF 2.5 MG/3 ML PRE-MIX VIAL INH SCH ×3 (07:10→22:46)
[2022-01-20] MEDS: ACETAMINOPHEN 500 MG TAB (TYLENOL) PO PRN ×2 (07:52→20:30)
[2022-01-20] MEDS: GABAPENTIN 300 MG (NEURONTIN) CAP PO SCH ×4 (07:53→20:31)
[2022-01-20] MEDS: polyethylene glycoL POWDER 17 GM (MIRALAX) PACK PO SCH ×2 (07:53→20:30)
[2022-01-20] MEDS: VENlafaxine XR 75 MG (EFFEXOR XR) CAP PO SCH (07:53)
[2022-01-20] MEDS: DOCUSATE SODIUM 100 MG (COLACE) CAP PO SCH ×2 (07:53→20:31)
[2022-01-20] MEDS: busPIRone 5 MG (BUSPAR) TAB PO SCH ×2 (07:53→20:31)
[2022-01-20] MEDS: ZINC SULFATE 220 MG CAPSULE PO SCH (07:53)
[2022-01-20] MEDS: SENNOSIDES 8.6 MG (SENOKOT) TAB PO SCH ×2 (07:53→20:30)
[2022-01-20] MEDS: ASPIRIN E.C. 81 MG (ECOTRIN) TAB PO SCH (07:53)
[2022-01-20] MEDS: SILDENAFIL 20 MG (REVATIO) TAB PO SCH ×3 (07:54→20:30)
[2022-01-20] MEDS: ASCORBIC ACID (VIT C) 500 MG TABLET PO SCH (07:54)
[2022-01-20] MEDS: SALINE NASAL SPRAY (OCEAN) 45 ML BTL SCH ×4 (07:54→20:45)
[2022-01-20] MEDS: VITAMIN D3 125 MCG (5,000 UNITS) CAPSULE PO SCH (07:59)
[2022-01-20] MEDS: MICONAZOLE 2% POWDER (DESENEX AF) 90 GM TOP SCH ×2 (07:59→22:46)
[2022-01-20 08:00] VITALS: BP 137/81
--- NOTE | 2022-01-20 08:14 | Occupational Ther Daily Note ---
OT Current Status-Daily Note Subjective Pt alert, sitting in recliner. Pt agrees to therapy. Pt c/o L shldr pain, nrsg aware and brought pain meds while MARTINEZ applied warm blanket to area. Mental Status/Objective Patient Orientation: Person, Place, Time, Situation Attachments: Oxygen (4L) ADL-Treatment Pt declines shower and changing clothing, stating that she took on yesterday. Independent with eating. Pt ambulated using FWW with SBA for safety, no LOB. Independent for toilet transfer using FWW and grabbars. Independent with toileting. Sitting at sink, pt completes grooming and oral care independently. Assist provided for KHADRA larson. Therapy Code Descriptions/Definitions Functional [place] Measure: 0=Not Assessed/NA 4=Minimal Assistance 1=Total Assistance 5=Supervision or Setup 2=Maximal Assistance 6=Modified [place] 3=Moderate Assistance 7=Complete IndependenceSCALE: Activities may be completed with or without assistive devices. 9-Rtvffaqlxi-jvrarhz completes the activity by him/herself with no assistance from a helper. 5-Set-up or Clean-up Assistance-helper sets up or cleans up; patient completes activity. [place] assists only prior to or following the activity. 4-Supervision or Touching Assistance-helper provides verbal cues and/or touching/steadying and/or contact guard assistance as patient completes activity. Assistance may be provided throughout the activity or intermittently. 3-Partial/Moderate Assistance-helper does LESS THAN HALF the effort. [place] lifts, holds or supports trunk or limbs, but provides less than half the effort. 2-Substantial/Maximal Assistance-helper does MORE THAN HALF the effort. [place] lifts or holds trunk or limbs and provides more than half the effort. 9-Xrssvines-obxbfn does ALL the effort. Patient does none of the effort to complete the activity. Or, the assistance of 2 or more helpers is required for the patient to complete the activity. If activity was not attempted, code reason: 7-Patient Refused. 9-Not Applicable-not attempted and the patient did not perform the activity before the current illness, exacerbation or injury. 10-Not Attempted due to Environmental Limitations-(lack of equipment, weather restraints, etc.). 88-Not Attempted due to Medical Conditions or Safety Concerns. Eating (QC): 6 Oral Hygiene (QC): 6 Toileting Hygiene (QC): 6 Toilet Transfer (QC): 6 Other Treatment Pt ambulated to therapy gym using FWW with no LOB. Pt completed B UE exercises to increase over UE strength and activity tolerance for daily functional tasks. Arm bike completed with minimal resistance for 10 min with 1 break. Pt then complete arm pulleys for 3 min with minimal resistance for shldr stretch and strengthening. Fine motor tasks to increase strength for stained glass joiner and pinch. Dowel pedro with 2# wt, 3 B UE shldr exercises 1 set 10 reps of each. Ring transfer on arch with B UE's crossing midline while working on standing endurance. Skilled instruction provided for all activities for proper technique and positioning. Pt ambulated back to room with FWW to recliner. Pt placed on 4 L oxygen on wall. Pt made comfortable. Call light/ phone in reach. All needs met in room. Education OT Patient Education: Exercise program Teaching Recipient: Patient Teaching Methods: Demonstration Response to Teaching: Return Demonstration OT Short Term Goals Short Term Goals Time Frame: Jan 24, 2022 Shower/bathe self: 5 Upper body dressin Lower body dressin Putting on/taking off footwear: 5 OT Fci Goals Fci Goals Time Frame: Feb 07, 2022 Acute change in mental status: 0 Inattention: 0 Disorganized thinkin Altered level of consciousness: 0 Eating (QC): 6 Oral Hygiene (QC): 6 Toileting Hygiene (QC): 6 Shower/Bathe Self (QC): 6 Upper Body Dressing (QC): 6 Lower Body Dressing (QC): 6 On/Off Footwear (QC): 6 Additional Goals: 1-Demonstrate ADL Tasks, 2-Verbalize Understanding, 3- ImproveStrength/Lola 1=Demonstrate adherence to instructed precautions during ADL tasks. 2=Patient will verbalize/demonstrate understanding of assistive devices/modifications for ADL. 3=Patient will improve strength/tolerance for activity to enable patient to perform ADL's. OT Education/Plan Problem List/Assessment Assessment: Decreased Activ Tolerance, Decreased UE Strength, Impaired Self- Care Skills Discharge Recommendations Plan/Recommendations: Continue POC Treatment Plan/Plan of Care Patient would benefit from OT for education, treatment and training to promote independence in ADL's, mobility, safety and/or upper extremity function for ADL's. Plan of Care: ADL Retraining, Functional Mobility, Group Exercise/Act as Ind, UE Funct Exercise/Act Treatment Duration: Feb 07, 2022 Frequency: At least 5 of 7 days/Wk (IRF) Estimated Hrs Per Day: 1.5 hours per day Agreement: Yes Rehab Potential: Fair Time Start Time: 07:30 Stop Time: 09:00 DATE: Jan 20, 2022 Total Time Billed (hr/min): 90 Billed Treatment Time 1 visit-ADL 2 (30 min) EX 3 (40 min) FA 1 (20 min) IVETH COSTELLO Jan 20, 2022 08:14
--- NOTE | 2022-01-20 09:34 | Physical Therapy Daily Note ---
PT Daily Note-Current Subjective Note Late Entry from 01-16-22 Patient sitting in chair upon PT arrival, agreeable to treatment. Pain Section J - Health Conditions 1. Rarely or not at all 2. Occasionally 3. Frequently 4. Almost constantly 8. Unable to answer Pain Effect on Sleep: 2 Pain Interference with Therapy: 2 Pain Interference w/Day-to-Day: 2 Mental Status Patient Orientation: Person, Place, Time, Situation Transfers SCALE: Activities may be completed with or without assistive devices. 6-Leluyrjafj-kfcjkgu completes the activity by him/herself with no assistance from a helper. 5-Set-up or Clean-up Assistance-helper sets up or cleans up; patient completes activity. [place] assists only prior to or following the activity. 4-Supervision or Touching Assistance-helper provides verbal cues and/or touching/steadying and/or contact guard assistance as patient completes activity. Assistance may be provided throughout the activity or intermittently. 3-Partial/Moderate Assistance-helper does LESS THAN HALF the effort. [place] lifts, holds or supports trunk or limbs, but provides less than half the effort. 2-Substantial/Maximal Assistance-helper does MORE THAN HALF the effort. [place] lifts or holds trunk or limbs and provides more than half the effort. 6-Bvlpklick-trqgmf does ALL the effort. Patient does none of the effort to complete the activity. Or, the assistance of 2 or more helpers is required for the patient to complete the activity. If activity was not attempted, code reason: 7-Patient Refused. 9-Not Applicable-not attempted and the patient did not perform the activity before the current illness, exacerbation or injury. 10-Not Attempted due to Environmental Limitations-(lack of equipment, weather restraints, etc.). 88-Not Attempted due to Medical Conditions or Safety Concerns. Sit to Stand (QC): 4 Chair/Xnu-ru-Yrpja Xfer(QC): 4 Weight Bearing Right Lower Extremity: Right Full Weight Bearing Left Lower Extremity: Left Full Weight Bearing Gait Training Does the Patient Walk?: Yes Distance: 250 feet Walk 10 feet (QC): 4 Walk 50 ft with 2 Turns(QC): 4 Walk 150 ft (QC): 4 Gait Persons Needed: 1 Gait Assistive Device: FWW Assessment Current Status: Good Progress Patient tolerated treatment well. Demonstrates improved gait distance. Patient performs all observed transfers with SBA. Patient then ambulates 250 feet with FWW, with SBA and verbal cues for safety, progression, posture and conservation of energy. Patient in chair post treatment with all needs met, nursing notified, call light in hand. PT Senior Living Goals Senior Living Goals PT Hardware Technician Goals Time Frame: Feb 08, 2022 Roll Left & Right (QC): 6 Sit to Lying (QC): 6 Lying-Sitting on Side/Bed(QC): 6 Sit to Stand (QC): 6 Chair/Tvf-ib-Qkzli Xfer(QC): 6 Toilet Transfer (QC): 6 Car Transfer (QC): 6 Does the Patient Walk: Yes Walk 10 feet (QC): 6 Walk 50ft with 2 Turns (QC): 6 Walk 150 ft (QC): 6 Walking 10ft on Uneven Surface: 6 1 Step (curb) (QC): 6 4 Steps (QC): 6 12 Steps (QC): 6 Picking up an Object (QC): 6 Does the Pt use WC or Scooter?: No Wheel 50 feet with 2 turns (QC: 9 Wheel 150 feet: 9 PT Plan Treatment/Plan Treatment Plan: Continue Plan of Care Treatment Plan: Bed Mobility, Education, Functional Activity Lola, Functional Strength, Group Therapy, Gait, Safety, Therapeutic Exercise, Transfers Treatment Duration: Mar 08, 2022 Frequency: At least 5 of 7 days/Wk (IRF) Estimated Hrs Per Day: 1.5 hours per day Patient and/or Family Agrees t: Yes Safety Risks/Education Patient Education: Gait Training, Transfer Techniques Teaching Recipient: Patient Teaching Methods: Demonstration, Discussion Response to Teaching: Verbalize Understanding, Return Demonstration Time Time In: 1300 Time Out: 1315 DATE: Jan 16, 2022 Total Billed Treatment Time: 15 Total Billed Treatment Visit, Gait (15) KARTHIK PAIZ PT Jan 20, 2022 09:34
--- NOTE | 2022-01-20 11:11 | Physical Therapy Daily Note ---
PT Daily Note-Current Subjective Pt sitting in recliner upon arrival. Pt agrees to PT. Pt's recall shows deficits but this has been consistent throughout ARU stay. Pain Location: No Pain Reported Section J - Health Conditions 1. Rarely or not at all 2. Occasionally 3. Frequently 4. Almost constantly 8. Unable to answer Pain Effect on Sleep: 2 Pain Interference with Therapy: 2 Pain Interference w/Day-to-Day: 2 Mental Status Patient Orientation: Person, Place Attachments: Oxygen (4L) Transfers SCALE: Activities may be completed with or without assistive devices. 1-Yybjlzeubq-xljwoxh completes the activity by him/herself with no assistance from a helper. 5-Set-up or Clean-up Assistance-helper sets up or cleans up; patient completes activity. [place] assists only prior to or following the activity. 4-Supervision or Touching Assistance-helper provides verbal cues and/or touching/steadying and/or contact guard assistance as patient completes activity. Assistance may be provided throughout the activity or intermittently. 3-Partial/Moderate Assistance-helper does LESS THAN HALF the effort. [place] lifts, holds or supports trunk or limbs, but provides less than half the effort. 2-Substantial/Maximal Assistance-helper does MORE THAN HALF the effort. [place] lifts or holds trunk or limbs and provides more than half the effort. 4-Tfywiwrzg-wllngj does ALL the effort. Patient does none of the effort to co mplete the activity. Or, the assistance of 2 or more helpers is required for the patient to complete the activity. If activity was not attempted, code reason: 7-Patient Refused. 9-Not Applicable-not attempted and the patient did not perform the activity before the current illness, exacerbation or injury. 10-Not Attempted due to Environmental Limitations-(lack of equipment, weather restraints, etc.). 88-Not Attempted due to Medical Conditions or Safety Concerns. Sit to Stand (QC): 5 Toilet Transfer (QC): 5 Weight Bearing Right Lower Extremity: Right Full Weight Bearing Left Lower Extremity: Left Full Weight Bearing Gait Training Does the Patient Walk?: Yes Distance: 150' Walk 10 feet (QC): 5 Walk 50 ft with 2 Turns(QC): 5 Walk 150 ft (QC): 5 Gait Assistive Device: FWW Wheelchair Training Does the Pt Use a Wheelchair?: Yes Wheel 50 ft with 2 turns (QC): 5 Wheel 150 ft (QC): 5 Type of Wheelchair: Manual Pt uses WCH as she fatigues due to managing O2 at home since she lives alone. Stair Training Stair Training: Handrails/: 2 handrails #of Steps: 6 1 Step (curb) (QC): 5 4 Steps (QC): 5 Stairs: Pattern: Step to Exercises NuStep Minutes: 15 NuStep Workload: 4 Treatments [id number]: TF to standing and amb. in hallway. Pt completes 6 steps on staircase in [facility]. Pt uses NuStep then takes RB. Pt amb. in hallway before returning to room. Pt uses BR and returns to recliner to rest. All needs met, call light in hand. [id number]: FACE WORKER arrives and pt is sitting in recliner visiting with friends. Pt's friends report concern over pt being able to complete 3 steps at home while hauling O2 as pt has to when amb. for appt. This is practiced with friends present. Pt's O2 drops into 60's so O2 is turned to 5L on portable O2 until Pt's O2 returns to 90's. Pt returns to room to rest in recliner, back on 4L on O2. Pt resting with all needs met, call light in hand. Assessment Current Status: Good Progress Pt needs VC for safety, sequencing and reminder for Pursed Lip Breathing. PT Nursing Home Goals Bindery Machine Operator Goals PT Bindery Machine Operator Goals Time Frame: Feb 08, 2022 Roll Left & Right (QC): 6 Sit to Lying (QC): 6 Lying-Sitting on Side/Bed(QC): 6 Sit to Stand (QC): 6 Chair/Lze-uu-Hukkp Xfer(QC): 6 Toilet Transfer (QC): 6 Car Transfer (QC): 6 Does the Patient Walk: Yes Walk 10 feet (QC): 6 Walk 50ft with 2 Turns (QC): 6 Walk 150 ft (QC): 6 Walking 10ft on Uneven Surface: 6 1 Step (curb) (QC): 6 4 Steps (QC): 6 12 Steps (QC): 6 Picking up an Object (QC): 6 Does the Pt use WC or Scooter?: No Wheel 50 feet with 2 turns (QC: 9 Wheel 150 feet: 9 PT Plan Problem List Problem List: Activity Tolerance, Safety Treatment/Plan Treatment Plan: Continue Plan of Care Treatment Plan: Bed Mobility, Education, Functional Activity Lola, Functional Strength, Group Therapy, Gait, Safety, Therapeutic Exercise, Transfers Treatment Duration: Mar 08, 2022 Frequency: At least 5 of 7 days/Wk (IRF) Estimated Hrs Per Day: 1.5 hours per day Patient and/or Family Agrees t: Yes Safety Risks/Education Patient Education: Steps, Safety Issues Teaching Recipient: Patient, Friend Teaching Methods: Demonstration, Discussion Response to Teaching: Verbalize Understanding Time Time In: 1000 Time Out: 1100 DATE: Jan 20, 2022 Total Billed Treatment Time: 60 Total Billed Treatment [id number]: 1, GT (15m), FA x2 (30m) & EX (15m) [id number]: 1, FA x2 (30m) FRANCIS JIN PTA Jan 20, 2022 11:11
--- NOTE | 2022-01-20 11:11 | Progress Note ---
JACINTO DUARTEAELA 01/20/22 1111: Progress Note S: Ms. Taveras is a 66 year old female who presents to the in-patient rehabilitation unit for rehabilitation to return home and receive hospice care. Patient was transferred from [facility] fourth floor to the rehab unit on 01/15. Patient was admitted for severe CHF with exacerbation. Patient is resting comfortably in recliner this morning. Patient reports she is tolerating PO food and drink. Patient states she is ambulating well with assistance. Patient states she is urinating well and frequently since urinary catheter removal and diuresis with Bumex and metolazone and her last BM was this morning. Patient states her lower superficial abdominal pain, located under her abdominal pannus, has improved with using the miconazole powder. Patient describes mild SOA and denies chest pain. Patient states she has L shoulder pain and R hip pain this morning; patient states these are chronic pains possibly aggravated by therapy. O: -Vital signs stable: T 36.8, HR 84, RR 20, BP 136/60, SpO2 93% 4L NC -PE: -General: patient is resting in recliner comfortably -Cardiovascular: HRRR -Pulmonary: diminished lung sounds throughout, no wheezing present -Skin: diffuse purpura rash across lower abdomen, likely due to Lovenox inj. -LE: bilateral lower extremity mild edema -Labs: BUN 34 (35 on 01/19), Cr 1.69 (1.42 on 01/19) A/P: 1. Continue PT/OT for rehabilitation. Continue to discuss goals with patient and certified alcohol and drug counselor regarding the patient's prognosis 2. Continue Bumex for diuresis. 3. Intertrigo; manage with frequent monitoring of skin and miconazole powder 4. LLQ 1x1cm skin nodule; possible sebaceous cyst, lipoma, or skin infection/abscess. No in-patient management necessary at this time. Recommend addressing with PCP and continue to monitor. May apply warm compress to area for management 5. Cr stable, continue to monitor while patient receives diuresis therapy DEYA BAILEY DO 01/20/222052: Supervisory-Addendum Brief Verification & Attestation Participated in pt care: history, MDM, physical Personally performed: exam, history, MDM, supervision of care Care discussed with: Medical Student Procedures: n/a Results interpretation: Verified all documentation Verification and Attestation of Medical Student E/M Service A medical student performed and documented this service in my presence. I reviewed and verified all information documented by the medical student and made modifications to such information, when appropriate. I personally performed the physical exam and medical decision making. Deya Bailey, Jan 20, 2022,20:52 REJI DUARTE Jan 20, 2022 11:11 DEYA BAILEY DO Jan 20, 2022 20:53
[2022-01-20] MEDS: UMECLIDINIUM BROMIDE (INCRUSE ELLIPTA) 7'S IH SCH (11:34)
[2022-01-20] MEDS: BUMETANIDE 1 MG (BUMEX) TAB PO SCH (12:25)
--- NOTE | 2022-01-20 14:12 | Diagnostic Imaging Report ---
INDICATION: Congestive heart failure. TECHNIQUE: Two view chest at 1:04 PM. CORRELATION STUDY: 01/17/2022. FINDINGS: Right IJ Infusaport catheter tip over the SVC, stable. Cardiac enlargement and mediastinum are generally stable. Presence of pulmonary vascular congestion and perihilar edema does appear to be slightly increased from prior. Lung garcia are generally stable. No infiltrate. There may be trace effusions. Visualized osseous structures are unremarkable. IMPRESSION: Stable cardiac enlargement with moderate edema overall appearing perhaps slightly increased from prior. Dictated by: Dictated on workstation # [id number]
--- NOTE | 2022-01-20 15:36 | Physical Therapy Progress Note ---
Therapy Progress Note Pt will need a bariatric wheelchair as pt cannot use a walker or cane other than short distances while managing O2 bottle and line safely to due a mobility deficit and decreased activity tolerance. Pt is not able to qualify for smaller more manageable portable O2 unit due to the level of O2 needed at a time. Pt is able to safely use wheelchair and functional mobility deficit is sufficiently resolved with the use of a wheelchair. FRANCIS JIN GAMBLING FLOOR SUPERVISOR Jan 20, 2022 15:36
--- NOTE | 2022-01-20 17:10 | Cardiology Progress Note ---
Progress Note-Cardiology Events since last exam Date Seen by Provider: Jan 20, 2022 Time Seen by Provider: 17:03 Events since last exam I am following her due to heart failure. Her breathing has improved. Her per ipheral edema has resolved. She denies chest pain, palpitations, or syncope. Certain portions of this document may have been dictated utilizing voice recognition technology. Inherent to this technology, typographical and grammatical errors may exist. As much as I am diligent to identify and correct these mistakes, some errors may remain in the document. Vitals Last set of Vitals Signs Vital Signs 01/20/22 01/20/22 08:00 15:00 Temp 37.0 Pulse 93 Resp 18 B/P (MAP) 137/81 (99) Pulse Ox 96 O2 Delivery Nasal Cannula O2 Flow Rate 4.00 Labs Labs Laboratory Tests 01/20/22 05:10 01/20/22 05:20 Exam Vital Signs Vital Signs Date Time Temp Pulse Resp B/P (MAP) Pulse Ox O2 Delivery O2 Flow Rate FiO2 01/20/22 15:00 96 Nasal Cannula 4.00 01/20/22 08:00 37.0 93 18 137/81 (99) Physical Exam General: Alert. No acute distress. She is obese. Eye: No xanthelasma. HENT: Normocephalic. Neck: Jugular venous pressure does not appear elevated. Respiratory: Lungs are clear to auscultation. Respirations are non-labored. Breath sounds are equal. Symmetrical chest wall expansion. Cardiovascular: Normal rate. Regular rhythm. No murmur. No gallop. No edema. Gastrointestinal: Soft. Normal bowel sounds. Skin: Warm. Dry. Neurologic: Alert and oriented to person, place, time. Cranial nerves 3-11 grossly intact. Psychiatric: Cooperative. Appropriate mood & affect. Labs Laboratory Tests Test 01/19/22 20:11 01/20/22 05:10 01/20/22 05:20 01/20/22 10:46 Range/Units Glucometer 133 H 175 H 222 H 70-110 MG/DL Sodium Level 141 135-145 MMOL/L Potassium Level 4.2 3.6-5.0 MMOL/L Chloride Level 95 L 98-107 MMOL/L Carbon Dioxide Level 32 21-32 MMOL/L Anion Gap 14 5-14 MMOL/L Blood Urea Nitrogen 34 H 7-18 MG/DL Creatinine 1.69 H 0.60-1.30 MG/DL Estimat Glomerular Filtration Rate 33 BUN/Creatinine Ratio 20 Glucose Level 197 H 70-105 MG/DL Calcium Level 8.6 8.5-10.1 MG/DL Corrected Calcium 9.1 8.5-10.1 MG/DL Total Bilirubin 0.4 0.1-1.0 MG/DL Aspartate Amino Transf (AST/SGOT) 14 5-34 U/L Alanine Aminotransferase (ALT/SGPT) 12 0-55 U/L Alkaline Phosphatase 115 40-136 U/L Total Protein 7.0 6.4-8.2 GM/DL Albumin 3.4 3.2-4.5 GM/DL White Blood Count 10.7 4.3-11.0 10^3/uL Red Blood Count 3.04 L 3.80-5.11 10^6/uL Hemoglobin 9.6 L 11.5-16.0 g/dL Hematocrit 32 L 35-52 % Mean Corpuscular Volume 105 H 80-99 fL Mean Corpuscular Hemoglobin 32 25-34 pg Mean Corpuscular Hemoglobin Concent 30 L 32-36 g/dL Red Cell Distribution Width 12.9 10.0-14.5 % Platelet Count 173 130-400 10^3/uL Mean Platelet Volume 9.5 9.0-12.2 fL Immature Granulocyte % (Auto) 1 % Neutrophils (%) (Auto) 79 H 42-75 % Lymphocytes (%) (Auto) 9 L 12-44 % Monocytes (%) (Auto) 5 0-12 % Eosinophils (%) (Auto) 6 0-10 % Basophils (%) (Auto) 1 0-10 % Neutrophils # (Auto) 8.5 H 1.8-7.8 10^3/uL Lymphocytes # (Auto) 1.0 1.0-4.0 10^3/uL Monocytes # (Auto) 0.6 0.0-1.0 10^3/uL Eosinophils # (Auto) 0.6 H 0.0-0.3 10^3/uL Basophils # (Auto) 0.1 0.0-0.1 10^3/uL Immature Granulocyte # (Auto) 0.1 0.0-0.1 10^3/uL Test 01/20/22 16:05 Range/Units Glucometer 109 70-110 MG/DL Diagnosis/Problems Diagnosis/Problems (1) Acute on chronic heart failure with preserved ejection fraction (HFpEF) Status: Acute Assessment & Plan: Symptomatically she has improved but she still has persistent congestion on her most recent chest x-ray. I increased the dose of IV bumetanide on 01/18. Her creatinine has now gone up. I will change the diuretic over to oral. She had been ordered for metolazone every 48 hours. I discontinued this on 01/18 for the time being. She may not need the metolazone following discharge. I have also ordered a fluid restriction. I made a referral to the advanced heart failure team at [facility] per her and her family's request. I did this through my office EMR. Being on hospice does not make this a contraindication. (2) Pulmonary hypertension Status: Chronic Assessment & Plan: This is being followed by a baller tender at [place]. She takes in the sildenafil which has been continued. She is also on home oxygen. (3) Primary hypertension Status: Chronic Assessment & Plan: Blood pressure is reasonably controlled on a low-dose of metoprolol. (4) Mitral stenosis Status: Chronic Assessment & Plan: This is in a mild to moderate range and I would not suspect this to be contributing to her symptoms but this will need to be followed. (5) Mixed hyperlipidemia Status: Chronic Assessment & Plan: Continue statin. (6) Acute on chronic respiratory failure with hypoxemia Status: Acute Assessment & Plan: Most likely multifactorial. Continue with supplemental oxygen. (7) Stage 3a chronic kidney disease Status: Chronic Assessment & Plan: I have ordered daily BMPs on the intravenous diuretic and her creatinine has now increased. I will change her diuretic back to oral but using bumetanide instead of furosemide since bumetanide has better absorption if the patient has bowel edema. (8) Type 2 diabetes mellitus with complication Status: Chronic Assessment & Plan: This is being managed by the hospitalist. (9) Morbid obesity Status: Chronic Assessment & Plan: She needs to work on weight loss. She has been counseled about this in the past on numerous occasions. JEANMARIE GRIFFITH JR, MD Jan 20, 2022 17:09
[2022-01-20 20:30] VITALS: BP 115/79
[2022-01-20] MEDS: ALPRAZolam 0.5 MG (XANAX) TAB PO PRN (20:31)
[2022-01-20] MEDS: MELATONIN 3 MG TABLET PO SCH (20:31)
[2022-01-20] MEDS: MONTELUKAST 10 MG (SINGULAIR) TAB PO SCH (20:31)
[2022-01-20] MEDS: AtorvaSTATin TABLET 10 MG TABLET PO SCH (20:44)
[2022-01-20] MEDS: traZODone 50 MG (DESYREL) TAB PO SCH (20:45)
--- NOTE | 2022-01-21 05:34 | PM&R Progress Note ---
Subjective HPI/CC On Admission Date Seen by Provider: Jan 21, 2022 Time Seen by Provider: 08:30 Subjective/Events-last exam 01/21/2022: Patient doing well Less short of breath Kidney function stable No falls Discharge plan for 01/20/2022: Patient doing really well Labs remained stable Creatinine 1.69 Bowels moved today Blood sugars are reasonable at 175 01/19/2022: Doing well BM today Refused Levemir No pain reported 01/18/2022: Patient doing well Dr. Quinones set up second opinion with CHF program at Patient ultimately will likely require hospice Creatinine stable 01/17/2022: Family at bedside Patient and family go back and forth about hospice She wants to obtain a consultation and higher level of care for CHF but I seriously doubt we can keep her out of the hospital and healthy enough to do that up at a center like because the wait to get an appointment will be lengthy Zaroxolyn seems to be helpful 01/16/2022: Improved status but she still feels like she is retaining fluid Told her I would speak to Dr Hand who agreed with me she is end-stage and diuresis is the only management but CKD is an issue but he agreed with hospice No pain reported BM+ Catheter out Changed times of diuresis Review of Systems General: Fatigue, Malaise Objective Exam Vital Signs Vital Signs Date Time Temp Pulse Resp B/P (MAP) Pulse Ox O2 Delivery O2 Flow Rate FiO2 01/21/22 21:00 Nasal Cannula 4.00 01/21/22 20:35 36.7 77 20 133/81 (98) 98 Capillary Refill : General Appearance: WD/WN, Anxious, Chronically ill, Mild Distress, Obese HEENT: PERRL/EOMI, Normal ENT Inspection, Pharynx Normal Neck: Full Range of Motion, Normal Inspection, Non Tender, Supple, Carotid Bruit Respiratory: No Accessory Muscle Use, No Respiratory Distress, Decreased Breath Sounds; No Wheezing Cardiovascular: Regular Rate, Rhythm, No Murmur Gastrointestinal: Normal Bowel Sounds, No Organomegaly, No Pulsatile Mass, Non Tender, Soft Back: Normal Inspection, No CVA Tenderness, No Vertebral Tenderness Extremity: Normal Capillary Refill, Normal Inspection, Normal Range of Motion, Non Tender, No Calf Tenderness, No Pedal Edema Neurologic/Psychiatric: Alert, Oriented x3, Normal Mood/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 FIM Transfers Therapy Code Descriptions/Definitions Functional [place] Measure: 0=Not Assessed/NA 4=Minimal Assistance 1=Total Assistance 5=Supervision or Setup 2=Maximal Assistance 6=Modified [place] 3=Moderate Assistance 7=Complete IndependenceSCALE: Activities may be completed with or without assistive devices. 1-Makpakttst-bxkddkb completes the activity by him/herself with no assistance from a helper. 5-Set-up or Clean-up Assistance-helper sets up or cleans up; patient completes activity. [place] assists only prior to or following the activity. 4-Supervision or Touching Assistance-helper provides verbal cues and/or touching/steadying and/or contact guard assistance as patient completes activity. Assistance may be provided throughout the activity or intermittently. 3-Partial/Moderate Assistance-helper does LESS THAN HALF the effort. [place] lifts, holds or supports trunk or limbs, but provides less than half the effort. 2-Substantial/Maximal Assistance-helper does MORE THAN HALF the effort. [place] lifts or holds trunk or limbs and provides more than half the effort. 8-Imwpgpwrv-bxebfd does ALL the effort. Patient does none of the effort to comp lete the activity. Or, the assistance of 2 or more helpers is required for the patient to complete the activity. If activity was not attempted, code reason: 7-Patient Refused. 9-Not Applicable-not attempted and the patient did not perform the activity before the current illness, exacerbation or injury. 10-Not Attempted due to Environmental Limitations-(lack of equipment, weather restraints, etc.). 88-Not Attempted due to Medical Conditions or Safety Concerns. Roll Left to Right (QC): 4 Sit to Lying (QC): 4 Sit to Stand (QC): 5 Chair/Gjq-dq-Famde Xfer(QC): 4 Car Transfer (QC): 4 Gait Training Does the Patient Walk?: Yes Distance: 150' Walk 10 feet (QC): 5 Walk 50 ft with 2 Turns(QC): 5 Walk 150 ft (QC): 5 Walking 10ft/uneven surface-QC: 4 Gait Persons Needed: 1 Gait Assistive Device: FWW Wheelchair Training Does the Pt Use a Wheelchair?: Yes Wheel 50 ft with 2 turns (QC): 5 Wheel 150 ft (QC): 5 Type of Wheelchair: Manual Stair Training Stair Training: Handrails/: 2 handrails #of Steps: 6 1 Step (curb) (QC): 5 4 Steps (QC): 5 12 Steps (QC): 4 Stairs: Pattern: Step to Balance Picking up an Object (QC): 3 ADL-Treatment Eating (QC): 6 Oral Hygiene (QC): 6 Shower/Bathe Self (QC): 4 Upper Body Dressing (QC): 5 Lower Body Dressing (QC): 3 On/Off Footwear (QC): 3 (Mod A) Toileting Hygiene (QC): 6 Toilet Transfer (QC): 6 Assessment/Plan Assessment and Plan Assess & Plan/Chief Complaint Assessment: CHF exacerbation - Given patient's failure to improve with furosemide up to 120 mg, bumetanide has been initiated to attain diuresis. Continue to monitor respiratory symptoms, fluid levels, and kidney function. Continue oxygen via NC. Dr. Quinones was consulted for cardiological management. He does not recommend intervention in the case of her mitral stenosis at this time. He does recommend beginning oral bumetanide or torsemide once appropriate to transition to oral m edications. Kidney function is stable, patient SOB and swelling continue to improve. COPD - albuterol sulfate, budesonide, revefenacin Anxiety - alprazolam, buspirone Depression - venlafaxine Mitral stenosis - Cardiology does not recommend intervention at this time Primary hypertension - losartan, metoprolol Hyperlipidemia - atorvastatin initiated Type II DM - insulin aspart, insulin degludec GERD - pantoprazole Hypothyroidism - levothyroxine Bilateral CVA tenderness - kidney function has remained stable since initial labs were taken. Continue monitoring and consider instituting pharmacological treatment if pain worsens Abdominal hematoma - possibly due to lovenox injections, will continue to monitor for changes. Lovenox DCd Hospice care recommended upon discharge. Patient to be transferred to inpatient rehab before transfer to home hospice care Plan: Monitor CHF and O2 levels Monitor creat Fall risk Home meds 01/16/2022: Supportive care Diuresis 01/17/2022: Continue therapy End stage CHF management 01/18/2022: Supportive care 01/19/2022: Monitor closely 01/20/2022: Monitoring closely Continue diuresis 01/21/2022: Continue diuresis (1) Acute on chronic heart failure with preserved ejection fraction (HFpEF) Status: Acute Assessment & Plan: Symptomatically she has improved but she still has persistent congestion on her most recent chest x-ray. I increased the dose of IV bumetanide on 01/18. Her creatinine has now gone up. I will change the diuretic over to oral. She had been ordered for metolazone every 48 hours. I discontinued this on 01/18 for the time being. She may not need the metolazone following discharge. I have also ordered a fluid restriction. I made a referral to the advanced heart failure team at [facility] per her and her family's request. I did this through my office EMR. Being on hospice does not make this a contraindication. (2) Pulmonary hypertension Status: Chronic Assessment & Plan: This is being followed by a forestry technical officer at [place]. She takes in the sildenafil which has been continued. She is also on home oxygen. (3) Primary hypertension Status: Chronic Assessment & Plan: Blood pressure is reasonably controlled on a low-dose of metoprolol. (4) Mitral stenosis Status: Chronic Assessment & Plan: This is in a mild to moderate range and I would not suspect this to be contributing to her symptoms but this will need to be followed. (5) Mixed hyperlipidemia Status: Chronic Assessment & Plan: Continue statin. (6) Acute on chronic respiratory failure with hypoxemia Status: Acute Assessment & Plan: Most likely multifactorial. Continue with supplemental oxygen. (7) Stage 3a chronic kidney disease Status: Chronic Assessment & Plan: I have ordered daily BMPs on the intravenous diuretic and her creatinine has now increased. I will change her diuretic back to oral but using bumetanide instead of furosemide since bumetanide has better absorption if the patient has bowel edema. (8) Type 2 diabetes mellitus with complication Status: Chronic Assessment & Plan: This is being managed by the hospitalist. (9) Morbid obesity Status: Chronic Assessment & Plan: She needs to work on weight loss. She has been counseled about this in the past on numerous occasions. FERN BAILEY DO Jan 21, 2022 05:34
[2022-01-21] MEDS: LEVOTHYROXINE 125 MCG (LEVOTHROID) TABLET PO SCH (05:43)
[2022-01-21] MEDS: inSUlin ASPART (NovoLOG) 1 UNIT/0.01 ML (CHARGE PER UNIT) SC SCH ×4 (05:47→21:22)
[2022-01-21 06:12] LABS: CALCIUM 8.4 MG/DL (8.5-10.1); CREATININE SERUM 1.45 MG/DL (0.60-1.30); POTASSIUM 3.5 MMOL/L (3.6-5.0)
[2022-01-21] MEDS: KCL 10 MEQ TAB (MICRO K) PO SCH (06:29)
[2022-01-21] MEDS: PANTOPRAZOLE 40 MG (PROTONIX) TAB PO SCH (06:29)
[2022-01-21] MEDS: inSUlin ASPART (NovoLOG) 1 UNIT/0.01 ML (CHARGE PER UNIT) SQ SCH (07:43)
[2022-01-21 08:00] VITALS: BP 115/57
[2022-01-21] MEDS: VITAMIN D3 125 MCG (5,000 UNITS) CAPSULE PO SCH (08:18)
[2022-01-21] MEDS: ASCORBIC ACID (VIT C) 500 MG TABLET PO SCH (08:18)
[2022-01-21] MEDS: ASPIRIN E.C. 81 MG (ECOTRIN) TAB PO SCH (08:18)
[2022-01-21] MEDS: SENNOSIDES 8.6 MG (SENOKOT) TAB PO SCH ×2 (08:18→21:14)
[2022-01-21] MEDS: SILDENAFIL 20 MG (REVATIO) TAB PO SCH ×3 (08:18→21:14)
[2022-01-21] MEDS: busPIRone 5 MG (BUSPAR) TAB PO SCH ×2 (08:18→21:14)
[2022-01-21] MEDS: BUMETANIDE 1 MG (BUMEX) TAB PO SCH ×2 (08:18→13:30)
[2022-01-21] MEDS: GABAPENTIN 300 MG (NEURONTIN) CAP PO SCH ×4 (08:19→21:15)
[2022-01-21] MEDS: ZINC SULFATE 220 MG CAPSULE PO SCH (08:19)
[2022-01-21] MEDS: DOCUSATE SODIUM 100 MG (COLACE) CAP PO SCH ×2 (08:19→21:15)
[2022-01-21] MEDS: VENlafaxine XR 75 MG (EFFEXOR XR) CAP PO SCH (08:19)
[2022-01-21] MEDS: ACETAMINOPHEN 500 MG TAB (TYLENOL) PO PRN ×2 (08:20→21:15)
[2022-01-21] MEDS: SALINE NASAL SPRAY (OCEAN) 45 ML BTL SCH ×4 (08:22→21:13)
[2022-01-21] MEDS: MICONAZOLE 2% POWDER (DESENEX AF) 90 GM TOP SCH ×2 (08:23→21:14)
[2022-01-21] MEDS: polyethylene glycoL POWDER 17 GM (MIRALAX) PACK PO SCH ×2 (08:24→21:22)
--- NOTE | 2022-01-21 08:38 | Occupational Ther Daily Note ---
OT Current Status-Daily Note Subjective Pt alert, sitting in recliner. Pt agrees to therapy. Pt c/o neck/back pain, rate 7/10, nrsg brought meds. Mental Status/Objective Patient Orientation: Person, Place, Time, Situation Attachments: IV (port), Oxygen (4L) ADL-Treatment Pt agrees to shower. Pt completes eating independently. Pt retrieves clothing using FWW independently. Pt transports to bathroom to dress after shower. Independent with toileting and toilet transfer. Pt completes shower using shower bench, grabbar, hand held sock and LH sponge independently. Pt completes upper/lower body dressing independently without AE. Pt using sock aide to don socks and KHADRA hose, independent to don/doff regular socks then assist to set up and min A to pull sock aide over heel, pt completes rest on own. Standing at sink to complete oral care independently. Pt does fatigue though takes increased time to complete tasks for energy conservation and recovery breaks. Therapy Code Descriptions/Definitions Functional [place] Measure: 0=Not Assessed/NA 4=Minimal Assistance 1=Total Assistance 5=Supervision or Setup 2=Maximal Assistance 6=Modified [place] 3=Moderate Assistance 7=Complete IndependenceSCALE: Activities may be completed with or without assistive devices. 8-Ukiucjgysy-ncvaanf completes the activity by him/herself with no assistance from a helper. 5-Set-up or Clean-up Assistance-helper sets up or cleans up; patient completes activity. [place] assists only prior to or following the activity. 4-Supervision or Touching Assistance-helper provides verbal cues and/or touching/steadying and/or contact guard assistance as patient completes activity. Assistance may be provided throughout the activity or intermittently. 3-Partial/Moderate Assistance-helper does LESS THAN HALF the effort. [place] l ifts, holds or supports trunk or limbs, but provides less than half the effort. 2-Substantial/Maximal Assistance-helper does MORE THAN HALF the effort. [place] lifts or holds trunk or limbs and provides more than half the effort. 1-Wgyorvbwn-yqdipr does ALL the effort. Patient does none of the effort to complete the activity. Or, the assistance of 2 or more helpers is required for t he patient to complete the activity. If activity was not attempted, code reason: 7-Patient Refused. 9-Not Applicable-not attempted and the patient did not perform the activity before the current illness, exacerbation or injury. 10-Not Attempted due to Environmental Limitations-(lack of equipment, weather restraints, etc.). 88-Not Attempted due to Medical Conditions or Safety Concerns. Eating (QC): 6 Oral Hygiene (QC): 6 Bathing Location: L Arm, R Arm, L Upper Leg, R Upper Leg, L Lower Leg (including foot), R Lower Leg (including foot), Chest, Abdomen, Buttocks, Perineal Area Shower/Bathe Self (QC): 6 Upper Body Dressing (QC): 6 Lower Body Dressing (QC): 6 On/Off Footwear: 3 (min A to complete KHADRA hose with sock aide. Independent to use sock aide to don/doff socks.) Toileting Hygiene (QC): 6 Toilet Transfer (QC): 6 Other Treatment Pt completed B UE light resistance theraband exercises 3 sets 10 reps of 5 exercises to increase strength and stamina for daily functional tasks. Skilled instruction for correct technique and modifications required. After session, pt sitting in recliner with call light/phone in reach. All needs met in room. Education OT Patient Education: Exercise program, Use of adapted equipment Teaching Recipient: Patient Teaching Methods: Demonstration, Handout, Discussion Response to Teaching: Verbalize Understanding, Return Demonstration, Reinforcement Needed BIMS CAM BIMS Expression of Ideas and Wants: Without Difficulty Understanding Verbal Content: Understands Brief Interview/Mental Status: Yes IRF TANIA BIMS: IRF TANIA BIMS Response (Comments) Value Repitition of Three Words Three 3 Recalls Socks Yes, No Cue Required 2 Recalls Blue Yes, No Cue Required 2 Recalls Bed Yes, No Cue Required 2 Year Correct 3 Month Accurate Within 5 Days 2 Day Correct 1 Total 15 Patient Normally Able to Recal: Current Session, Location of own room, Staff Names and faces, That he/she in a [facility] Should Staff Asses. Mental St.: No CAM Mental Status Change/Baseline: 0 Inattention: 0 Disorganized thinkin Altered level of consciousness: 0 OT Short Term Goals Short Term Goals Time Frame: Jan 24, 2022 Shower/bathe self: 5 Upper body dressin Lower body dressin Putting on/taking off footwear: 5 OT Sole Stapler Welt Goals Half-Way Goals Time Frame: Feb 07, 2022 Acute change in mental status: 0 Inattention: 0 Disorganized thinkin Altered level of consciousness: 0 Eating (QC): 6 (met) Oral Hygiene (QC): 6 (met) Toileting Hygiene (QC): 6 (met) Shower/Bathe Self (QC): 6 (met) Upper Body Dressing (QC): 6 (met) Lower Body Dressing (QC): 6 (met) On/Off Footwear (QC): 6 (not met-KHADRA hose min A, regular socks independent) Additional Goals: 1-Demonstrate ADL Tasks, 2-Verbalize Understanding, 3- ImproveStrength/Lola 1=Demonstrate adherence to instructed precautions during ADL tasks. 2=Patient will verbalize/demonstrate understanding of assistive devices/modifications for ADL. 3=Patient will improve strength/tolerance for activity to enable patient to perform ADL's. OT Education/Plan Problem List/Assessment Assessment: Decreased Activ Tolerance, Decreased UE Strength, Impaired Self- Care Skills Discharge Recommendations Plan/Recommendations: Continue POC Treatment Plan/Plan of Care Patient would benefit from OT for education, treatment and training to promote independence in ADL's, mobility, safety and/or upper extremity function for ADL's. Plan of Care: ADL Retraining, Functional Mobility, Group Exercise/Act as Ind, UE Funct Exercise/Act Treatment Duration: Feb 07, 2022 Frequency: At least 5 of 7 days/Wk (IRF) Estimated Hrs Per Day: 1.5 hours per day Agreement: Yes Rehab Potential: Fair Time Start Time: 07:30 Stop Time: 09:00 DATE: Jan 21, 2022 Total Time Billed (hr/min): 90 Billed Treatment Time 1 visit-ADL 5 (75 min) EX 1 (15 min) IVETH COSTELLO Jan 21, 2022 08:38
[2022-01-21] MEDS: RT-BUDESONIDE NEBS 0.5 MG/2ML (PULMICORT) AMP IH SCH ×2 (09:22→20:23)
[2022-01-21] MEDS: RT-ALBUTEROL SULF 2.5 MG/3 ML PRE-MIX VIAL INH SCH ×3 (09:22→20:23)
[2022-01-21] MEDS: UMECLIDINIUM BROMIDE (INCRUSE ELLIPTA) 7'S IH SCH (09:24)
--- NOTE | 2022-01-21 11:06 | Physical Therapy Daily Note ---
PT Daily Note-Current Subjective Pt sitting in recliner upon arrival. Pt agrees to PT. Nurse is seeing pt at beginning of tx. Pain Location: No Pain Reported Section J - Health Conditions 1. Rarely or not at all 2. Occasionally 3. Frequently 4. Almost constantly 8. Unable to answer Pain Effect on Sleep: 2 Pain Interference with Therapy: 2 Pain Interference w/Day-to-Day: 2 Mental Status Patient Orientation: Person, Place, Situation Attachments: Oxygen (4L) Transfers SCALE: Activities may be completed with or without assistive devices. 1-Xclvibojcw-xwtmovi completes the activity by him/herself with no assistance from a helper. 5-Set-up or Clean-up Assistance-helper sets up or cleans up; patient completes activity. [place] assists only prior to or following the activity. 4-Supervision or Touching Assistance-helper provides verbal cues and/or touching/steadying and/or contact guard assistance as patient completes activity. Assistance may be provided throughout the activity or intermittently. 3-Partial/Moderate Assistance-helper does LESS THAN HALF the effort. [place] lifts, holds or supports trunk or limbs, but provides less than half the effort. 2-Substantial/Maximal Assistance-helper does MORE THAN HALF the effort. [place] lifts or holds trunk or limbs and provides more than half the effort. 9-Pptmbrzgm-xbigcv does ALL the effort. Patient does none of the effort to complete the activity. Or, the assistance of 2 or more helpers is required for the patient to complete the activity. If activity was not attempted, code reason: 7-Patient Refused. 9-Not Applicable-not attempted and the patient did not perform the activity before the current illness, exacerbation or injury. 10-Not Attempted due to Environmental Limitations-(lack of equipment, weather restraints, etc.). 88-Not Attempted due to Medical Conditions or Safety Concerns. Sit to Stand (QC): 5 Toilet Transfer (QC): 5 Weight Bearing Right Lower Extremity: Right Full Weight Bearing Left Lower Extremity: Left Full Weight Bearing Gait Training Does the Patient Walk?: Yes Distance: 150', 200' Walk 10 feet (QC): 5 Walk 50 ft with 2 Turns(QC): 5 Walk 150 ft (QC): 5 Gait Assistive Device: FWW Exercises NuStep Minutes: 20 NuStep Workload: 5 Treatments [id number]: TF to standing from recliner. Pt amb. to BR and after finished amb. in hallway. Pt uses NuStep then amb in hallway before returning to room to rest in recliner. Pt's O2 is monitored as pt occasionally will drop when extensive workout is completed. O2 dropped to 80 on 4L so pt is moved back on wall unit on 4L and pt quickly recovers to 94% w/Pursed Lip Breathing. Pt resting w/all needs met,call light in hand. [id number]: Pt completes Seated & Supine EX at recliner instead of planned amb. of stairs due to drowsiness of taking Xanax. Pt resting at end of tx with all needs met, call light in hand. Assessment Current Status: Good Progress Pt needs VC at times for safety of managing O2 line and resting when tired inste ad of pushing through w/lowering O2. PT Half-Way Goals Recycling Worker Goals PT Recycling Worker Goals Time Frame: Feb 08, 2022 Roll Left & Right (QC): 6 Sit to Lying (QC): 6 Lying-Sitting on Side/Bed(QC): 6 Sit to Stand (QC): 6 Chair/Uvu-ve-Jazvx Xfer(QC): 6 Toilet Transfer (QC): 6 Car Transfer (QC): 6 Does the Patient Walk: Yes Walk 10 feet (QC): 6 Walk 50ft with 2 Turns (QC): 6 Walk 150 ft (QC): 6 Walking 10ft on Uneven Surface: 6 1 Step (curb) (QC): 6 4 Steps (QC): 6 12 Steps (QC): 6 Picking up an Object (QC): 6 Does the Pt use WC or Scooter?: No Wheel 50 feet with 2 turns (QC: 9 Wheel 150 feet: 9 PT Plan Problem List Problem List: Activity Tolerance Treatment/Plan Treatment Plan: Continue Plan of Care Treatment Plan: Bed Mobility, Education, Functional Activity Lola, Functional Strength, Group Therapy, Gait, Safety, Therapeutic Exercise, Transfers Treatment Duration: Mar 08, 2022 Frequency: At least 5 of 7 days/Wk (IRF) Estimated Hrs Per Day: 1.5 hours per day Patient and/or Family Agrees t: Yes Safety Risks/Education Patient Education: Correct Positioning, Safety Issues Teaching Recipient: Patient Teaching Methods: Discussion Response to Teaching: Verbalize Understanding Time Time In: 1000 (1420) Time Out: 1100 (1450) DATE: Jan 21, 2022 Total Billed Treatment Time: 90 Total Billed Treatment [id number]: 1, GT x2 (30m), EX (20m) & FA (10m) [id number]: 1, EX x2 (30m) FRANCIS JIN CLAIM ADMINISTRATOR Jan 21, 2022 11:06
[2022-01-21] MEDS: ALPRAZolam 0.5 MG (XANAX) TAB PO PRN ×2 (13:34→21:14)
--- NOTE | 2022-01-21 13:53 | Progress Note ---
REJI DUARTE 01/21/22 1353: Progress Note S: Ms. Taveras is a 66 year old female who presents to the in-patient rehabilitation unit for rehabilitation to return home and receive hospice care. Patient was transferred from [facility] fourth floor to the rehab unit on 01/15. Patient was admitted for severe CHF with exacerbation. Patient states she is doing well today. Patient reports she is tolerating PO food and drink.Patient states she is tolerating therapy well. Patient reports SOA and denies chest pain. O: -Vital signs: T 35.2, HR 78, RR 22, BP 115/57, SpO2 97% 4L NC -PE: -Cardiovascular: HRRR -Pulmonary: diminished lung sounds throughout, no wheezing present -Skin: diffuse purpura rash across lower abdomen, likely due to Lovenox inj. -LE: bilateral lower extremity mild edema -Labs: K 3.5, Cl 95, CO2 35, BUN 36 (34 on 01/20), Cr 1.45 (1.69 on 01/20) A/P: 1. Continue PT/OT for rehabilitation. Continue to discuss goals with patient and dianetic counselor regarding the patient's prognosis 2. Continue Bumex for diuresis. 3. Intertrigo; manage with frequent monitoring of skin and miconazole powder 4. LLQ 1x1cm skin nodule; possible sebaceous cyst, lipoma, or skin infection/abscess. No in-patient management necessary at this time. Recommend addressing with PCP and continue to monitor. May apply warm compress to area for management 5. Cr stable at 1.45, continue to monitor while patient receives diuresis therapy 6. Hypokalemia, supplement with 10 meq PO KCl DEYA BAILEY DO 01/21/22 2015: Supervisory-Addendum Brief Verification & Attestation Participated in pt care: history, MDM, physical Personally performed: exam, history, MDM, supervision of care Care discussed with: Medical Student Procedures: n/a Results interpretation: Verified all documentation Verification and Attestation of Medical Student E/M Service A medical student performed and documented this service in my presence. I reviewed and verified all information documented by the medical student and made modifications to such information, when appropriate. I personally performed the physical exam and medical decision making. Deya Bailey Jan 21, 2022,20:15 REJI DUARTE Jan 21, 2022 13:53 DEYA BAILEY DO Jan 21, 2022 20:15
--- NOTE | 2022-01-21 16:18 | Cardiology Progress Note ---
Progress Note-Cardiology Events since last exam Date Seen by Provider: Jan 21, 2022 Time Seen by Provider: 16:16 Events since last exam I am following her due to heart failure. She was a little bit more short of breath today but states she felt somewhat anxious. She was given Xanax and her shortness of breath improved. She denies chest discomfort, palpitations, syncope, or ankle edema. Certain portions of this document may have been dictated utilizing voice recognition technology. Inherent to this technology, typographical and grammatical errors may exist. As much as I am diligent to identify and correct these mistakes, some errors may remain in the document. Vitals Last set of Vitals Signs Vital Signs 01/21/22 01/21/22 08:00 14:36 Temp 35.2 Pulse 78 Resp 22 B/P (MAP) 115/57 (76) Pulse Ox 96 O2 Delivery Nasal Cannula O2 Flow Rate 4.00 Labs Labs Laboratory Tests 01/21/22 05:35 Exam Vital Signs Vital Signs Date Time Temp Pulse Resp B/P (MAP) Pulse Ox O2 Delivery O2 Flow Rate FiO2 01/21/22 14:36 96 Nasal Cannula 4.00 01/21/22 08:00 35.2 78 22 115/57 (76) Physical Exam General: Alert. No acute distress. She is obese. Eye: No xanthelasma. HENT: Normocephalic. Neck: Jugular venous pressure does not appear elevated. Respiratory: Lungs are clear to auscultation. Respirations are non-labored. Breath sounds are equal. Symmetrical chest wall expansion. Cardiovascular: Normal rate. Regular rhythm. Distant S1/S2. No murmur. No gallop. No edema. Gastrointestinal: Soft. Normal bowel sounds. Skin: Warm. Dry. Neurologic: Alert and oriented to person, place, time. Cranial nerves 3-11 grossly intact. Psychiatric: Cooperative. Appropriate mood & affect. Labs Laboratory Tests Test 01/20/22 20:14 01/21/22 05:35 01/21/22 05:36 01/21/22 10:58 Range/Units Glucometer 184 H 99 134 H 70-110 MG/DL Sodium Level 142 135-145 MMOL/L Potassium Level 3.5 L 3.6-5.0 MMOL/L Chloride Level 95 L 98-107 MMOL/L Carbon Dioxide Level 35 H 21-32 MMOL/L Anion Gap 12 5-14 MMOL/L Blood Urea Nitrogen 36 H 7-18 MG/DL Creatinine 1.45 H 0.60-1.30 MG/DL Estimat Glomerular Filtration Rate 39 BUN/Creatinine Ratio 25 Glucose Level 100 70-105 MG/DL Calcium Level 8.4 L 8.5-10.1 MG/DL Test 01/21/22 15:20 Range/Units Glucometer 179 H 70-110 MG/DL Diagnosis/Problems Diagnosis/Problems (1) Acute on chronic heart failure with preserved ejection fraction (HFpEF) Status: Acute Assessment & Plan: Symptomatically she has improved I changed the diuretic over to oral on 01/20 due to a slight rise in the creatinine. She had been ordered for metolazone every 48 hours. I discontinued this on 01/18 for the time being. She may not need the metolazone following discharge. I have also ordered a fluid restriction. I made a referral to the advanced heart failure team at [facility] per her and her family's request. I did this through my office EMR. Being on hospice does not make this a contraindication. We will continue to monitor her renal function closely for the next couple of days. If her renal function stays stable, then we can probably stop the daily m etabolic panels. (2) Pulmonary hypertension Status: Chronic Assessment & Plan: This is being followed by a cooking show host at [place]. She takes in the sildenafil which has been continued. She is also on home oxygen. (3) Primary hypertension Status: Chronic Assessment & Plan: Blood pressure is reasonably controlled on a low-dose of metoprolol. (4) Mitral stenosis Status: Chronic Assessment & Plan: This is in a mild to moderate range and I would not suspect this to be contributing to her symptoms but this will need to be followed. (5) Mixed hyperlipidemia Status: Chronic Assessment & Plan: Continue statin. (6) Acute on chronic respiratory failure with hypoxemia Status: Acute Assessment & Plan: Most likely multifactorial. Continue with supplemental oxygen. (7) Stage 3a chronic kidney disease Status: Chronic Assessment & Plan: I have ordered daily BMPs on the intravenous diuretic and her creatinine has now increased. I will change her diuretic back to oral but using bumetanide instead of furosemide since bumetanide has better absorption if the patient has bowel edema. (8) Type 2 diabetes mellitus with complication Status: Chronic Assessment & Plan: This is being managed by the hospitalist. (9) Morbid obesity Status: Chronic Assessment & Plan: She needs to work on weight loss. She has been counseled about this in the past on numerous occasions. JEANMARIE GRIFFITH JR, MD Jan 21, 2022 16:18
[2022-01-21 20:35] VITALS: BP 133/81
[2022-01-21] MEDS: MONTELUKAST 10 MG (SINGULAIR) TAB PO SCH (21:14)
[2022-01-21] MEDS: traZODone 50 MG (DESYREL) TAB PO SCH (21:14)
[2022-01-21] MEDS: MELATONIN 3 MG TABLET PO SCH (21:15)
[2022-01-21] MEDS: AtorvaSTATin TABLET 10 MG TABLET PO SCH (21:15)
[2022-01-22] MEDS: LEVOTHYROXINE 125 MCG (LEVOTHROID) TABLET PO SCH (05:38)
[2022-01-22 06:01] LABS: CALCIUM 8.5 MG/DL (8.5-10.1); CREATININE SERUM 1.44 MG/DL (0.60-1.30); POTASSIUM 3.9 MMOL/L (3.6-5.0)
--- NOTE | 2022-01-22 06:10 | PM&R Progress Note ---
Subjective HPI/CC On Admission Date Seen by Provider: Jan 22, 2022 Time Seen by Provider: 08:30 Subjective/Events-last exam 01/22/2022: Patient doing well [facility] will directly contact her for congestive heart failure appointment Discharge plan tomorrow 01/21/2022: Patient doing well Less short of breath Kidney function stable No falls Discharge plan for 01/20/2022: Patient doing really well Labs remained stable Creatinine 1.69 Bowels moved today Blood sugars are reasonable at 175 01/19/2022: Doing well BM today Refused Levemir No pain reported 01/18/2022: Patient doing well Dr. Quinones set up second opinion with CHF program at Patient ultimately will likely require hospice Creatinine stable 01/17/2022: Family at bedside Patient and family go back and forth about hospice She wants to obtain a consultation and higher level of care for CHF but I seriously doubt we can keep her out of the hospital and healthy enough to do that up at a center like because the wait to get an appointment will be lengthy Zaroxolyn seems to be helpful 01/16/2022: Improved status but she still feels like she is retaining fluid Told her I would speak to Dr Hand who agreed with me she is end-stage and diuresis is the only management but CKD is an issue but he agreed with hospice No pain reported BM+ Catheter out Changed times of diuresis Review of Systems General: Fatigue, Malaise Objective Exam Vital Signs Vital Signs Date Time Temp Pulse Resp B/P (MAP) Pulse Ox O2 Delivery O2 Flow Rate FiO2 01/22/22 21:04 90 Nasal Cannula 4.00 01/22/22 19:36 36.4 86 20 120/57 (78) Capillary Refill : General Appearance: WD/WN, Anxious, Chronically ill, Mild Distress, Obese HEENT: PERRL/EOMI, Normal ENT Inspection, Pharynx Normal Neck: Full Range of Motion, Normal Inspection, Non Tender, Supple, Carotid Bruit Respiratory: No Accessory Muscle Use, No Respiratory Distress, Decreased Breath Sounds; No Wheezing Cardiovascular: Regular Rate, Rhythm, No Murmur Gastrointestinal: Normal Bowel Sounds, No Organomegaly, No Pulsatile Mass, Non Tender, Soft Back: Normal Inspection, No CVA Tenderness, No Vertebral Tenderness Extremity: Normal Capillary Refill, Normal Inspection, Normal Range of Motion, Non Tender, No Calf Tenderness, No Pedal Edema Neurologic/Psychiatric: Alert, Oriented x3, Normal Mood/Affect, file machine operator II-XII Norm as Tested, Abnormal Gait, Motor Weakness (generalized) Skin: Normal Color, Warm/Dry Lymphatic: No Adenopathy Results/Procedures Lab Laboratory Tests 01/22/22 05:39 Patient resulted labs reviewed. FIM Transfers Therapy Code Descriptions/Definitions Functional [place] Measure: 0=Not Assessed/NA 4=Minimal Assistance 1=Total Assistance 5=Supervision or Setup 2=Maximal Assistance 6=Modified [place] 3=Moderate Assistance 7=Complete IndependenceSCALE: Activities may be completed with or without assistive devices. 6-Ktdajontwa-vsayntg completes the activity by him/herself with no assistance from a helper. 5-Set-up or Clean-up Assistance-helper sets up or cleans up; patient completes activity. [place] assists only prior to or following the activity. 4-Supervision or Touching Assistance-helper provides verbal cues and/or touching/steadying and/or contact guard assistance as patient completes activity. Assistance may be provided throughout the activity or intermittently. 3-Partial/Moderate Assistance-helper does LESS THAN HALF the effort. [place] lifts, holds or supports trunk or limbs, but provides less than half the effort. 2-Substantial/Maximal Assistance-helper does MORE THAN HALF the effort. [place] lifts or holds trunk or limbs and provides more than half the effort. 3-Bslebinqs-ebwiwd does ALL the effort. Patient does none of the effort to complete the activity. Or, the assistance of 2 or more helpers is required for the patient to complete the activity. If activity was not attempted, code reason: 7-Patient Refused. 9-Not Applicable-not attempted and the patient did not perform the activity before the current illness, exacerbation or injury. 10-Not Attempted due to Environmental Limitations-(lack of equipment, weather restraints, etc.). 88-Not Attempted due to Medical Conditions or Safety Concerns. Roll Left to Right (QC): 4 Sit to Lying (QC): 4 Sit to Stand (QC): 5 Chair/Lae-db-Oyqjn Xfer(QC): 4 Car Transfer (QC): 4 Gait Training Does the Patient Walk?: Yes Distance: 150', 200' Walk 10 feet (QC): 5 Walk 50 ft with 2 Turns(QC): 5 Walk 150 ft (QC): 5 Walking 10ft/uneven surface-QC: 4 Gait Persons Needed: 1 Gait Assistive Device: FWW Wheelchair Training Does the Pt Use a Wheelchair?: Yes Wheel 50 ft with 2 turns (QC): 5 Wheel 150 ft (QC): 5 Type of Wheelchair: Manual Stair Training Stair Training: Handrails/: 2 handrails #of Steps: 6 1 Step (curb) (QC): 5 4 Steps (QC): 5 12 Steps (QC): 4 Stairs: Pattern: Step to Balance Picking up an Object (QC): 3 ADL-Treatment Eating (QC): 6 Oral Hygiene (QC): 6 Bathing Location: L Arm, R Arm, L Upper Leg, R Upper Leg, L Lower Leg (including foot), R Lower Leg (including foot), Chest, Abdomen, Buttocks, Perineal Area Shower/Bathe Self (QC): 6 Upper Body Dressing (QC): 6 Lower Body Dressing (QC): 6 On/Off Footwear (QC): 3 (min A to complete KHADRA hose with sock aide. Independent to use sock aide to don/doff socks.) Toileting Hygiene (QC): 6 Toilet Transfer (QC): 6 Assessment/Plan Assessment and Plan Assess & Plan/Chief Complaint Assessment: CHF exacerbation - Given patient's failure to improve with furosemide up to 120 mg, bumetanide has been initiated to attain diuresis. Continue to monitor respiratory symptoms, fluid levels, and kidney function. Continue oxygen via [place]. Dr. Quinones was consulted for cardiological management. He does not recommend intervention in the case of her mitral stenosis at this time. He does recommend beginning oral bumetanide or torsemide once appropriate to transition to oral me dications. Kidney function is stable, patient SOB and swelling continue to improve. COPD - albuterol sulfate, budesonide, revefenacin Anxiety - alprazolam, buspirone Depression - venlafaxine Mitral stenosis - Cardiology does not recommend intervention at this time Primary hypertension - losartan, metoprolol Hyperlipidemia - atorvastatin initiated Type II DM - insulin aspart, insulin degludec GERD - pantoprazole Hypothyroidism - levothyroxine Bilateral CVA tenderness - kidney function has remained stable since initial labs were taken. Continue monitoring and consider instituting pharmacological treatment if pain worsens Abdominal hematoma - possibly due to lovenox injections, will continue to monitor for changes. Lovenox DCd Hospice care recommended upon discharge. Patient to be transferred to inpatient rehab before transfer to home hospice care Plan: Monitor CHF and O2 levels Monitor creat Fall risk Home meds 01/16/2022: Supportive care Diuresis 01/17/2022: Continue therapy End stage CHF management 01/18/2022: Supportive care 01/19/2022: Monitor closely 01/20/2022: Monitoring closely Continue diuresis 01/21/2022: Continue diuresis 01/22/2022: Discharge home tomorrow (1) Acute on chronic heart failure with preserved ejection fraction (HFpEF) Status: Acute Assessment & Plan: Symptomatically she has improved I changed the diuretic over to oral on 01/20 due to a slight rise in the creatinine. She had been ordered for metolazone every 48 hours. I discontinued this on 01/18 for the time being. She may not need the metolazone following discharge. I have also ordered a fluid restriction. I made a referral to the advanced heart failure team at [facility] per her and her family's request. I did this through my office EMR. Being on hospice does not make this a contraindication. We will continue to monitor her renal function closely for the next couple of days. If her renal function stays stable, then we can probably stop the daily metabolic panels. (2) Pulmonary hypertension Status: Chronic Assessment & Plan: This is being followed by a financial analyst accountant at [place]. She takes in the sildenafil which has been continued. She is also on home oxygen. (3) Primary hypertension Status: Chronic Assessment & Plan: Blood pressure is reasonably controlled on a low-dose of metoprolol. (4) Mitral stenosis Status: Chronic Assessment & Plan: This is in a mild to moderate range and I would not suspect this to be contributing to her symptoms but this will need to be followed. (5) Mixed hyperlipidemia Status: Chronic Assessment & Plan: Continue statin. (6) Acute on chronic respiratory failure with hypoxemia Status: Acute Assessment & Plan: Most likely multifactorial. Continue with supplemental oxygen. (7) Stage 3a chronic kidney disease Status: Chronic Assessment & Plan: I have ordered daily BMPs on the intravenous diuretic and her creatinine has now increased. I will change her diuretic back to oral but using bumetanide instead of furosemide since bumetanide has better absorption if the patient has bowel edema. (8) Type 2 diabetes mellitus with complication Status: Chronic Assessment & Plan: This is being managed by the hospitalist. (9) Morbid obesity Status: Chronic Assessment & Plan: She needs to work on weight loss. She has been counseled about this in the past on numerous occasions. FERN BAILEY DO Jan 22, 2022 06:10
[2022-01-22] MEDS: PANTOPRAZOLE 40 MG (PROTONIX) TAB PO SCH (06:19)
[2022-01-22] MEDS: KCL 10 MEQ TAB (MICRO K) PO SCH (06:19)
[2022-01-22] MEDS: inSUlin ASPART (NovoLOG) 1 UNIT/0.01 ML (CHARGE PER UNIT) SC SCH ×4 (07:20→20:09)
[2022-01-22] MEDS: inSUlin ASPART (NovoLOG) 1 UNIT/0.01 ML (CHARGE PER UNIT) SQ SCH (07:21)
[2022-01-22 07:44] VITALS: BP 133/66
[2022-01-22] MEDS: SENNOSIDES 8.6 MG (SENOKOT) TAB PO SCH ×2 (09:00→20:18)
[2022-01-22] MEDS: SALINE NASAL SPRAY (OCEAN) 45 ML BTL SCH ×4 (09:00→20:15)
[2022-01-22] MEDS: MICONAZOLE 2% POWDER (DESENEX AF) 90 GM TOP SCH ×2 (09:00→20:20)
[2022-01-22] MEDS: polyethylene glycoL POWDER 17 GM (MIRALAX) PACK PO SCH ×2 (09:00→20:20)
--- NOTE | 2022-01-22 09:42 | Occupational Ther Daily Note ---
OT Current Status-Daily Note Subjective Pt in recliner, alert. Pt c/o no pain. Agrees to therapy. Mental Status/Objective Patient Orientation: Person, Place, Time, Situation Attachments: Oxygen (4L) ADL-Treatment Pt declined shower. Ambulated to bathroom with FWW. Performed toilet transfer and hygiene independently. Pt stood at sink with FWW to perform oral hygiene independently. Pt required to don KHADRA hose with AEMin A. Pt donned and doffed socks with AE by self. Pt agrees to ambulate to [facility] gym. Therapy Code Descriptions/Definitions Functional [place] Measure: 0=Not Assessed/NA 4=Minimal Assistance 1=Total Assistance 5=Supervision or Setup 2=Maximal Assistance 6=Modified [place] 3=Moderate Assistance 7=Complete IndependenceSCALE: Activities may be completed with or without assistive devices. 7-Rydglqdtof-yrvqvgw completes the activity by him/herself with no assistance from a helper. 5-Set-up or Clean-up Assistance-helper sets up or cleans up; patient completes activity. [place] assists only prior to or following the activity. 4-Supervision or Touching Assistance-helper provides verbal cues and/or touching/steadying and/or contact guard assistance as patient completes activity. Assistance may be provided throughout the activity or intermittently. 3-Partial/Moderate Assistance-helper does LESS THAN HALF the effort. [place] lifts, holds or supports trunk or limbs, but provides less than half the effort. 2-Substantial/Maximal Assistance-helper does MORE THAN HALF the effort. [place] lifts or holds trunk or limbs and provides more than half the effort. 9-Krrdddevx-dtmwsm does ALL the effort. Patient does none of the effort to complete the activity. Or, the assistance of 2 or more helpers is required for the patient to complete the activity. If activity was not attempted, code reason: 7-Patient Refused. 9-Not Applicable-not attempted and the patient did not perform the activity before the current illness, exacerbation or injury. 10-Not Attempted due to Environmental Limitations-(lack of equipment, weather restraints, etc.). 88-Not Attempted due to Medical Conditions or Safety Concerns. Oral Hygiene (QC): 6 On/Off Footwear: 3 Toileting Hygiene (QC): 6 Toilet Transfer (QC): 6 Client c/o increased weakness in UE's. Other Treatment Pt ambulated to therapy gym with FWW. Pt participated in FM activities to imp rove FM grasp for self care skills. Pt participated in UE exercises in reps of 20 with 2# weights to improve UE strength for independent mobility. Pt participated in forward and backward rotation with no resistance on arm bike for 5 min each to improve endurance for mobility and self care. Pt stood for ~4 mins to grasp resistant clothes pins with B UE's to improve UE strength and grasp for self care and mobility. Pt required breaks between reps on each exercise. Pt pushed resistant pegs into peg board with L and R hand 50 each to improve grasp and UE strength for self care and mobility. Skills instruction provided for proper technique and positioning. Pt ambulated back to room with FWW. Pt in recliner at the end of session. Call light/phone in reach. All needs met in room. Education OT Patient Education: Home exercise program Teaching Recipient: Patient Teaching Methods: Demonstration Response to Teaching: Return Demonstration OT Short Term Goals Short Term Goals Time Frame: Jan 24, 2022 Shower/bathe self: 5 Upper body dressin Lower body dressin Putting on/taking off footwear: 5 OT Package Clerk Goals Package Clerk Goals Time Frame: Feb 07, 2022 Acute change in mental status: 0 Inattention: 0 Disorganized thinkin Altered level of consciousness: 0 Eating (QC): 6 (met) Oral Hygiene (QC): 6 (met) Toileting Hygiene (QC): 6 (met) Shower/Bathe Self (QC): 6 (met) Upper Body Dressing (QC): 6 (met) Lower Body Dressing (QC): 6 (met) On/Off Footwear (QC): 6 (not met-KHADRA hose min A, regular socks independent) Additional Goals: 1-Demonstrate ADL Tasks, 2-Verbalize Understanding, 3- ImproveStrength/Lola 1=Demonstrate adherence to instructed precautions during ADL tasks. 2=Patient will verbalize/demonstrate understanding of assistive devices/ modifications for ADL. 3=Patient will improve strength/tolerance for activity to enable patient to perform ADL's. OT Education/Plan Problem List/Assessment Assessment: Decreased Activ Tolerance, Decreased UE Strength, Impaired I ADL's, Impaired Self-Care Skills Discharge Recommendations Plan/Recommendations: Continue POC Treatment Plan/Plan of Care Patient would benefit from OT for education, treatment and training to promote independence in ADL's, mobility, safety and/or upper extremity function for ADL's. Plan of Care: ADL Retraining, Functional Mobility, Group Exercise/Act as Ind, UE Funct Exercise/Act Treatment Duration: Feb 07, 2022 Frequency: At least 5 of 7 days/Wk (IRF) Estimated Hrs Per Day: 1.5 hours per day Agreement: Yes Rehab Potential: Fair Time Start Time: 08:00 Stop Time: 09:30 DATE: Jan 22, 2022 Total Time Billed (hr/min): 90 Billed Treatment Time 1 visit ADL 2 (30 min) EX 4 (60 min) IVETH COSTELLO Jan 22, 2022 09:42
[2022-01-22] MEDS: RT-BUDESONIDE NEBS 0.5 MG/2ML (PULMICORT) AMP IH SCH ×2 (09:51→21:00)
[2022-01-22] MEDS: RT-ALBUTEROL SULF 2.5 MG/3 ML PRE-MIX VIAL INH SCH ×3 (09:51→21:00)
[2022-01-22] MEDS: UMECLIDINIUM BROMIDE (INCRUSE ELLIPTA) 7'S IH SCH (09:52)
[2022-01-22] MEDS: ASPIRIN E.C. 81 MG (ECOTRIN) TAB PO SCH (11:00)
[2022-01-22] MEDS: BUMETANIDE 1 MG (BUMEX) TAB PO SCH ×2 (11:00→16:34)
[2022-01-22] MEDS: SILDENAFIL 20 MG (REVATIO) TAB PO SCH ×3 (11:00→20:18)
[2022-01-22] MEDS: VENlafaxine XR 75 MG (EFFEXOR XR) CAP PO SCH (11:00)
[2022-01-22] MEDS: busPIRone 5 MG (BUSPAR) TAB PO SCH ×2 (11:01→20:19)
[2022-01-22] MEDS: VITAMIN D3 125 MCG (5,000 UNITS) CAPSULE PO SCH (11:01)
[2022-01-22] MEDS: ZINC SULFATE 220 MG CAPSULE PO SCH (11:01)
[2022-01-22] MEDS: GABAPENTIN 300 MG (NEURONTIN) CAP PO SCH ×4 (11:01→20:19)
[2022-01-22] MEDS: ASCORBIC ACID (VIT C) 500 MG TABLET PO SCH (11:01)
[2022-01-22] MEDS: DOCUSATE SODIUM 100 MG (COLACE) CAP PO SCH ×2 (11:01→20:18)
--- NOTE | 2022-01-22 11:58 | Physical Therapy Daily Note ---
PT Daily Note-Current Subjective Pt is taken for Chest Xray at start of tx then PT sees pt as pt returns. Pt agrees to PT. Pain Location: No Pain Reported Section J - Health Conditions 1. Rarely or not at all 2. Occasionally 3. Frequently 4. Almost constantly 8. Unable to answer Pain Effect on Sleep: 2 Pain Interference with Therapy: 2 Pain Interference w/Day-to-Day: 2 Mental Status Patient Orientation: Person, Place, Situation Transfers SCALE: Activities may be completed with or without assistive devices. 1-Ebqtmguudg-bvcdknc completes the activity by him/herself with no assistance from a helper. 5-Set-up or Clean-up Assistance-helper sets up or cleans up; patient completes activity. [place] assists only prior to or following the activity. 4-Supervision or Touching Assistance-helper provides verbal cues and/or touching/steadying and/or contact guard assistance as patient completes activity. Assistance may be provided throughout the activity or intermittently. 3-Partial/Moderate Assistance-helper does LESS THAN HALF the effort. [place] l ifts, holds or supports trunk or limbs, but provides less than half the effort. 2-Substantial/Maximal Assistance-helper does MORE THAN HALF the effort. [place] lifts or holds trunk or limbs and provides more than half the effort. 0-Wqlqhnyhp-qtkwni does ALL the effort. Patient does none of the effort to complete the activity. Or, the assistance of 2 or more helpers is required for t he patient to complete the activity. If activity was not attempted, code reason: 7-Patient Refused. 9-Not Applicable-not attempted and the patient did not perform the activity before the current illness, exacerbation or injury. 10-Not Attempted due to Environmental Limitations-(lack of equipment, weather restraints, etc.). 88-Not Attempted due to Medical Conditions or Safety Concerns. Roll Left & Right (QC): 6 Sit to Lying (QC): 6 Lying to Sitting/Side of Bed(Q: 6 Sit to Stand (QC): 6 Chair/Dup-tu-Vigbo Xfer(QC): 6 Toilet Transfer (QC): 6 Car Transfer (QC): 6 Weight Bearing Right Lower Extremity: Right Full Weight Bearing Left Lower Extremity: Left Full Weight Bearing Gait Training Does the Patient Walk?: Yes Distance: 150' Walk 10 feet (QC): 6 Walk 50 ft with 2 Turns(QC): 6 Walk 150 ft (QC): 6 Walking 10ft/uneven surface-QC: 6 Gait Assistive Device: FWW Wheelchair Training Does the Pt Use a Wheelchair?: No Stair Training Stair Training: Handrails/: 1 handrail #of Steps: 8 1 Step (curb) (QC): 6 4 Steps (QC): 6 Stairs: Pattern: Step to INTEGRATED CAMPAIGN MANAGER or friend (when at home) will assist managing O2 bottle when ambulating stairs. Balance Picking up an Object (QC): 6 Special Test Comments Pt uses combat systems officer. Treatments [id number]: Pt completes Sit to Stand TF, bed mobility and toileting during session after returning from chest xray. Pt resting in recliner at end of morning session with all needs met, call light in hand. 1400--1420: Pt finishes QC scoring in afternoon tx. Pt then returns to rest in room. All needs met, call light in hand. Assessment Current Status: Good Progress Pt is improving with mobility and activity tolerance. PT [facility] Goals [facility] Goals PT [facility] Goals Time Frame: Feb 08, 2022 Roll Left & Right (QC): 6 Sit to Lying (QC): 6 Lying-Sitting on Side/Bed(QC): 6 Sit to Stand (QC): 6 Chair/Kht-dz-Pghfq Xfer(QC): 6 Toilet Transfer (QC): 6 Car Transfer (QC): 6 Does the Patient Walk: Yes Walk 10 feet (QC): 6 Walk 50ft with 2 Turns (QC): 6 Walk 150 ft (QC): 6 Walking 10ft on Uneven Surface: 6 1 Step (curb) (QC): 6 4 Steps (QC): 6 12 Steps (QC): 6 Picking up an Object (QC): 6 Does the Pt use WC or Scooter?: No Wheel 50 feet with 2 turns (QC: 9 Wheel 150 feet: 9 PT Plan Problem List Problem List: Activity Tolerance Treatment/Plan Treatment Plan: Continue Plan of Care Treatment Plan: Bed Mobility, Education, Functional Activity Lola, Functional Strength, Group Therapy, Gait, Safety, Therapeutic Exercise, Transfers Treatment Duration: Mar 08, 2022 Frequency: At least 5 of 7 days/Wk (IRF) Estimated Hrs Per Day: 1.5 hours per day Patient and/or Family Agrees t: Yes Safety Risks/Education Patient Education: Steps, Correct Positioning, Safety Issues Teaching Recipient: Patient Teaching Methods: Discussion Response to Teaching: Verbalize Understanding Time Time In: 1030 (1400) Time Out: 1100 (1420) DATE: Jan 22, 2022 Total Billed Treatment Time: 50 Total Billed Treatment [id number]: 1, FA x2 (30m) [id number]: 1, FA (20m) FRANCIS JIN INTEGRATED CAMPAIGN MANAGER Jan 22, 2022 11:58
[2022-01-22] MEDS ORDERED: SACUBITRIL/VALSARTAN 24/26 MG (ENTRESTO) TABLET PO NR (13:15)
--- NOTE | 2022-01-22 13:44 | Occupational Ther Daily Note ---
OT Current Status-Daily Note Subjective Pt in recliner, alert. Pt agrees to therapy. C/o no pain at this time. Mental Status/Objective Patient Orientation: Person, Place, Time, Situation Attachments: IV, Oxygen (4l) ADL-Treatment Pt ambulated to bathroom with FWW. Completed toilet transfer and hygiene independently. Pt ambulated back to recliner with FWW. Therapy Code Descriptions/Definitions Functional [place] Measure: 0=Not Assessed/NA 4=Minimal Assistance 1=Total Assistance 5=Supervision or Setup 2=Maximal Assistance 6=Modified [place] 3=Moderate Assistance 7=Complete IndependenceSCALE: Activities may be completed with or without assistive devices. 0-Parfbgtsfg-wqzppmd completes the activity by him/herself with no assistance from a helper. 5-Set-up or Clean-up Assistance-helper sets up or cleans up; patient completes activity. [place] assists only prior to or following the activity. 4-Supervision or Touching Assistance-helper provides verbal cues and/or touching/steadying and/or contact guard assistance as patient completes activity. Assistance may be provided throughout the activity or intermittently. 3-Partial/Moderate Assistance-helper does LESS THAN HALF the effort. [place] lifts, holds or supports trunk or limbs, but provides less than half the effort. 2-Substantial/Maximal Assistance-helper does MORE THAN HALF the effort. [place] lifts or holds trunk or limbs and provides more than half the effort. 6-Uajngxtsb-uqhuih does ALL the effort. Patient does none of the effort to complete the activity. Or, the assistance of 2 or more helpers is required for the patient to complete the activity. If activity was not attempted, code reason: 7-Patient Refused. 9-Not Applicable-not attempted and the patient did not perform the activity before the current illness, exacerbation or injury. 10-Not Attempted due to Environmental Limitations-(lack of equipment, weather restraints, etc.). 88-Not Attempted due to Medical Conditions or Safety Concerns. Toileting Hygiene (QC): 6 Toilet Transfer (QC): 6 Other Treatment Pt completed dynamic standing activities while grasp/release in designated areas with 90% accuracy to improve endurance and FM skills with a cognitive component to improve skills necessary for self care. Pt took recovery breaks between each activity. No LOB noted throughout session. After session, pt sitting in recliner with call light/phone in reach. All needs met in room. OT Short Term Goals Short Term Goals Time Frame: Jan 24, 2022 Shower/bathe self: 5 Upper body dressin Lower body dressin Putting on/taking off footwear: 5 OT Residential Goals Rn Cardiac Cath Goals Time Frame: Feb 07, 2022 Acute change in mental status: 0 Inattention: 0 Disorganized thinkin Altered level of consciousness: 0 Eating (QC): 6 (met) Oral Hygiene (QC): 6 (met) Toileting Hygiene (QC): 6 (met) Shower/Bathe Self (QC): 6 (met) Upper Body Dressing (QC): 6 (met) Lower Body Dressing (QC): 6 (met) On/Off Footwear (QC): 6 (not met-KHADRA hose min A, regular socks independent) Additional Goals: 1-Demonstrate ADL Tasks, 2-Verbalize Understanding, 3-ImproveStrength/Lola 1=Demonstrate adherence to instructed precautions during ADL tasks. 2=Patient will verbalize/demonstrate understanding of assistive devices/modifications for ADL. 3=Patient will improve strength/tolerance for activity to enable patient to perform ADL's. OT Education/Plan Problem List/Assessment Assessment: Decreased Activ Tolerance, Impaired I ADL's, Impaired Self-Care Skills Discharge Recommendations Plan/Recommendations: Continue POC Treatment Plan/Plan of Care Patient would benefit from OT for education, treatment and training to promote independence in ADL's, mobility, safety and/or upper extremity function for ADL's. Plan of Care: ADL Retraining, Functional Mobility, Group Exercise/Act as Ind, UE Funct Exercise/Act Treatment Duration: Feb 07, 2022 Frequency: At least 5 of 7 days/Wk (IRF) Estimated Hrs Per Day: 1.5 hours per day Agreement: Yes Rehab Potential: Fair Time Start Time: 13:00 Stop Time: 13:45 DATE: Jan 22, 2022 Total Time Billed (hr/min): 45 Billed Treatment Time 1 FA 3 (45 min) IVETH COSTELLO Jan 22, 2022 13:44
--- NOTE | 2022-01-22 15:18 | Diagnostic Imaging Report ---
HISTORY: Shortness of air. COMPARISON: 01/20/2022. TECHNIQUE: Two views of the chest. FINDINGS: There is mild cardiomegaly with central vascular congestion and interstitial edema. The right Port-A-Cath tip projects over the upper SVC. No airspace consolidation is seen. There is no pleural effusion or pneumothorax seen. IMPRESSION: 1. Stable cardiomegaly with stable interstitial edema. Dictated by: Dictated on workstation # [id number]
--- NOTE | 2022-01-22 15:27 | Cardiology Progress Note ---
Progress Note-Cardiology Events since last exam Date Seen by Provider: Jan 22, 2022 Time Seen by Provider: 15:23 Events since last exam I am following her due to heart failure with preserved ejection fraction. O verall, her breathing and peripheral edema have improved. Plans are in place for her to be discharged to home tomorrow. She continues to work with physical therapy. She does have some dyspnea on exertion but again, overall improved. She denies chest pain, palpitations, syncope, or ankle edema. Certain portions of this document may have been dictated utilizing voice recognition technology. Inherent to this technology, typographical and grammatical errors may exist. As much as I am diligent to identify and correct these mistakes, some errors may remain in the document. Vitals Last set of Vitals Signs Vital Signs 01/22/22 01/22/22 07:44 14:14 Temp 36.6 Pulse 79 Resp 20 B/P (MAP) 133/66 (88) Pulse Ox 97 O2 Delivery Nasal Cannula O2 Flow Rate 4.00 Labs Labs Laboratory Tests 01/22/22 05:39 Exam Vital Signs Vital Signs Date Time Temp Pulse Resp B/P (MAP) Pulse Ox O2 Delivery O2 Flow Rate FiO2 01/22/22 14:14 97 Nasal Cannula 4.00 01/22/22 07:44 36.6 79 20 133/66 (88) Physical Exam General: Alert. No acute distress. Eye: No xanthelasma. HENT: Normocephalic. Neck: Jugular venous pressure does not appear elevated. Respiratory: Lungs are clear to auscultation. Respirations are non-labored. B reath sounds are equal. Symmetrical chest wall expansion. Cardiovascular: Normal rate. Regular rhythm. Distant S1/S2. No murmur. No gallop. No edema. Gastrointestinal: Soft. Normal bowel sounds. Skin: Warm. Dry. Neurologic: Alert and oriented to person, place, time. Cranial nerves 3-11 grossly intact. Psychiatric: Cooperative. Appropriate mood & affect. Labs Laboratory Tests Test 01/21/22 20:26 01/22/22 05:33 01/22/22 05:39 01/22/22 10:46 Range/Units Glucometer 162 H 181 H 173 H 70-110 MG/DL Sodium Level 141 135-145 MMOL/L Potassium Level 3.9 3.6-5.0 MMOL/L Chloride Level 94 L 98-107 MMOL/L Carbon Dioxide Level 34 H 21-32 MMOL/L Anion Gap 13 5-14 MMOL/L Blood Urea Nitrogen 34 H 7-18 MG/DL Creatinine 1.44 H 0.60-1.30 MG/DL Estimat Glomerular Filtration Rate 40 BUN/Creatinine Ratio 24 Glucose Level 194 H 70-105 MG/DL Calcium Level 8.5 8.5-10.1 MG/DL Diagnosis/Problems Diagnosis/Problems (1) Acute on chronic heart failure with preserved ejection fraction (HFpEF) Status: Acute Assessment & Plan: Symptomatically she has improved I changed the diuretic over to oral on 01/20 due to a slight rise in the creatinine. She had been ordered for metolazone every 48 hours. I discontinued this on 01/18 for the time being. She may not need the metolazone following discharge. I have also ordered a fluid restriction. Given the persistent pulmonary congestion on her chest x- ray, I will start her on a low-dose of Entresto giving her half tablet twice a day of the lowest dose. She will need to follow-up basic metabolic panel next week following discharge. I made a referral to the advanced heart failure team at [facility] per her and her family's request. I did this through my office EMR. Being on hospice does not make this a contrain dication. We will continue to monitor her renal function closely for the next couple of days. If her renal function stays stable, then we can probably stop the daily metabolic panels. (2) Pulmonary hypertension Status: Chronic Assessment & Plan: This is being followed by a renal dialysis rn at [facility]. She takes in the sildenafil which has been continued. She is also on home oxygen. This may be causing some persistent enlargement of the pulmonary arteries which may be misleading on her chest x-ray in regards to being reported as pulmonary congestion. (3) Primary hypertension Status: Chronic Assessment & Plan: Blood pressure is reasonably controlled on a low-dose of metoprolol. We will need to watch her blood pressure closely with the addition of Entresto. The most common side effects from Entresto are low blood pressure, hyperkalemia and worsening renal function. (4) Stage 3a chronic kidney disease Status: Chronic Assessment & Plan: Her creatinine eventually climbed after several days of intravenous bumetanide at which time this was changed over to oral. Her creatinine has again stabilized. As above, we will need to watch this closely with the addition of Entresto. (5) Mitral stenosis Status: Chronic Assessment & Plan: This is in a mild to moderate range and I would not suspect this to be contributing to her symptoms but this will need to be followed. (6) Mixed hyperlipidemia Status: Chronic Assessment & Plan: Continue statin. (7) Acute on chronic respiratory failure with hypoxemia Status: Acute Assessment & Plan: Most likely multifactorial. Continue with supplemental oxy gen. (8) Type 2 diabetes mellitus with complication Status: Chronic Assessment & Plan: This is being managed by the hospitalist. (9) Morbid obesity Status: Chronic Assessment & Plan: She needs to work on weight loss. She has been counseled about this in the past on numerous occasions. JEANMARIE GRIFFITH JR, MD Jan 22, 2022 15:27
--- NOTE | 2022-01-22 16:55 | Progress Note ---
JACINTO DUARTEAELA 01/22/22 1655: Progress Note S: Ms. Taveras is a 66 year old female who presents to the in-patient rehabilitation unit for rehabilitation to return home and receive hospice care. Patient was transferred from [facility] fourth floor to the rehab unit on 01/15. Patient was admitted for severe CHF with exacerbation. Patient states she is doing well today. Patient reports she is tolerating PO food and drink.Patient states she is tolerating therapy well. Patient reports SOA and denies chest pain. Patient reports she is feelings ready to return home tomorrow, 01/23/22. O: -Vital signs: T 36.7, HR 77, RR 20, BP 133/81, SpO2 98% 4L NC -PE: -Cardiovascular: HRRR -Pulmonary: diminished lung sounds throughout, no wheezing present -Skin: diffuse purpura rash across lower abdomen, likely due to Lovenox inj. -LE: bilateral lower extremity mild edema -Labs: K 3.9, Cl 94, CO2 34, BUN 34 (36 on 01/21), Cr 1.44 (1.45 on 01/20) A/P: 1. Continue PT/OT for rehabilitation. Continue to discuss goals with patient and equal opportunity counselor regarding the patient's prognosis. Plan to discharge home on 01/23. 2. Continue Bumex for diuresis. 3. Intertrigo; manage with frequent monitoring of skin and miconazole powder 4. LLQ 1x1cm skin nodule; possible sebaceous cyst, lipoma, or skin infection/abscess. No in-patient management necessary at this time. Recommend addressing with PCP and continue to monitor. May apply warm compress to area for management 5. Cr stable at 1.44, continue to monitor while patient receives diuresis therapy 6. Hypokalemia, supplement with 10 meq PO KCl -> K improved to 3.9 DEYA BAILEY DO 01/23/22 0557: Supervisory-Addendum Brief Verification & Attestation Participated in pt care: history, MDM, physical Personally performed: exam, history, MDM, supervision of care Care discussed with: Medical Student Procedures: n/a Results interpretation: Verified all documentation Verification and Attestation of Medical Student E/M Service A medical student performed and documented this service in my presence. I reviewed and verified all information documented by the medical student and made modifications to such information, when appropriate. I personally performed the physical exam and medical decision making. Deya Bailey, Jan 23, 2022,05:57 REJI DUARTE Jan 22, 2022 16:55 DEYA BAILEY DO Jan 23, 2022 05:57
[2022-01-22 19:36] VITALS: BP 120/57
[2022-01-22] MEDS: ALPRAZolam 0.5 MG (XANAX) TAB PO PRN (20:15)
[2022-01-22] MEDS: SACUBITRIL/VALSARTAN 24/26 MG (ENTRESTO) TABLET PO SCH (20:16)
[2022-01-22] MEDS: MELATONIN 3 MG TABLET PO SCH (20:18)
[2022-01-22] MEDS: traZODone 50 MG (DESYREL) TAB PO SCH (20:18)
[2022-01-22] MEDS: MONTELUKAST 10 MG (SINGULAIR) TAB PO SCH (20:18)
[2022-01-22] MEDS: ACETAMINOPHEN 500 MG TAB (TYLENOL) PO PRN (20:19)
[2022-01-22] MEDS: AtorvaSTATin TABLET 10 MG TABLET PO SCH (20:19)
[2022-01-23] MEDS ORDERED: BUME1TAB8 PO (06:16)
[2022-01-23] MEDS ORDERED: SACU1TAB2 PO (06:16)
--- NOTE | 2022-01-23 06:17 | D/C HH Face to Face Order ---
D/C Face to Face Orders Reconcile Patient Problems Problems Reviewed?: Yes Instructions for Patient [facility] Patient Instructions/FollowUp: pcp 1 week Physician to follow Patient: Maxwell Discharge Diet for Home: ADA Diet Patient Problems: CHF Patient Data-Allergies,Ht & Wt Patient Allergies: Coded Allergies: Penicillins (Verified Allergy, Unknown, VOMITING, 12/09/21) meperidine (Verified Allergy, Unknown, VOMITING, 12/09/21) morphine (Unverified Allergy, Unknown, RASH, BREATHING DIFFICULTY, 12/09/21) propoxyphene (Verified Allergy, Unknown, 12/09/21) topiramate (Verified Allergy, Unknown, LOSS OF EYESIGHT, 12/09/21) codeine (Verified Adverse Reaction, Unknown, UPSET STOMACH, 12/09/21) dapagliflozin (Verified Adverse Reaction, Unknown, yeast infection, 12/09/21) Height (Feet): 5 Height (Inches): 4.00 Weight (Pounds): 246 Weight (Ounces): 6.0 Home Health Need/Face to Face Date of Face to Face: Jan 23, 2022 Clinical Findings: Instability, Muscle weakness, Shortness of breath I have seen Pt [id number]: Yes Discharged To: Home Diagnosis/Conditions: CHF Patient is Homebound due to: Muscle weakness, Shortness of breath/distress Homebound Status Due to the above stated illness, injury or surgical procedure (medical condition or diagnosis) and associated clinical findings, the patient is homebound because of his/her inability to leave home except with aid of a supportive device and/or person AND leaving the home requires a considerable and taxing effort or is medically contraindicated. Pt req the following assistanc: [facility] Nursing Orders Home Health Services Order: Nursing Services, Family Dentist-Evaluate & Treat, Physical Therapy-Evaluate & Treat Certify Stmt I certify that this patient is under my care and that I, a nurse practitioner or a physician; a conference assistant working with me, had a face to face encounter that - meets the physician face to face encounter requirements with this patient as dated. FERN BAILEY DO Jan 23, 2022 06:17
--- NOTE | 2022-01-23 06:18 | Discharge Summary ---
Diagnosis/Chief Complaint Date of Admission Jan 15, 2022 at 13:20 Date of Discharge Discharge Date: Jan 23, 2022 Discharge Diagnosis Assessment: CHF exacerbation - Given patient's failure to improve with furosemide up to 120 mg, bumetanide has been initiated to attain diuresis. Continue to monitor respiratory symptoms, fluid levels, and kidney function. Continue oxygen via [place]. Dr. Quinones was consulted for cardiological management. He does not recommend intervention in the case of her mitral stenosis at this time. He does recommend beginning oral bumetanide or torsemide once appropriate to transition to oral medications. Kidney function is stable, patient SOB and swelling continue to improve. COPD - albuterol sulfate, budesonide, revefenacin Anxiety - alprazolam, buspirone Depression - venlafaxine Mitral stenosis - Cardiology does not recommend intervention at this time Primary hypertension - losartan, metoprolol Hyperlipidemia - atorvastatin initiated Type II DM - insulin aspart, insulin degludec GERD - pantoprazole Hypothyroidism - levothyroxine Bilateral CVA tenderness - kidney function has remained stable since initial labs were taken. Continue monitoring and consider instituting pharmacological treatment if pain worsens Abdominal hematoma - possibly due to lovenox injections, will continue to monitor for changes. Lovenox DCd Hospice care recommended upon discharge. Patient to be transferred to inpatient rehab before transfer to home hospice care Plan: Monitor CHF and O2 levels Monitor creat Fall risk Home meds 01/16/2022: Supportive care Diuresis 01/17/2022: Continue therapy End stage CHF management 01/18/2022: Supportive care 01/19/2022: Monitor closely 01/20/2022: Monitoring closely Continue diuresis 01/21/2022: Continue diuresis 01/22/2022: Discharge home tomorrow (1) Acute on chronic heart failure with preserved ejection fraction (HFpEF) Status: Acute Assessment & Plan: Symptomatically she has improved I changed the diuretic over to oral on 01/20 due to a slight rise in the creatinine. She had been ordered for metolazone every 48 hours. I discontinued this on 01/18 for the time being. She may not need the metolazone following discharge. I have also ordered a fluid restriction. I made a referral to the advanced heart failure team at [facility] per her and her family's request. I did this through my office EMR. Being on hospice does not make this a contraindication. We will continue to monitor her renal function closely for the next couple of days. If her renal function stays stable, then we can probably stop the daily metabolic panels. (2) Pulmonary hypertension Status: Chronic Assessment & Plan: This is being followed by a second time worker at [place]. She takes in the sildenafil which has been continued. She is also on home oxygen. (3) Primary hypertension Status: Chronic Assessment & Plan: Blood pressure is reasonably controlled on a low-dose of metoprolol. (4) Mitral stenosis Status: Chronic Assessment & Plan: This is in a mild to moderate range and I would not suspect this to be contributing to her symptoms but this will need to be followed. (5) Mixed hyperlipidemia Status: Chronic Assessment & Plan: Continue statin. (6) Acute on chronic respiratory failure with hypoxemia Status: Acute Assessment & Plan: Most likely multifactorial. Continue with supplemental oxygen. (7) Stage 3a chronic kidney disease Status: Chronic Assessment & Plan: I have ordered daily BMPs on the intravenous diuretic and her creatinine has now increased. I will change her diuretic back to oral but using bumetanide instead of furosemide since bumetanide has better absorption if the patient has bowel edema. (8) Type 2 diabetes mellitus with complication Status: Chronic Assessment & Plan: This is being managed by the hospitalist. (9) Morbid obesity Status: Chronic Assessment & Plan: She needs to work on weight loss. She has been counseled about this in the past on numerous occasions. FERN BAILEY DO Discharge Summary Discharge Physical Examination Allergies: Coded Allergies: Penicillins (Verified Allergy, Unknown, VOMITING, 12/09/21) meperidine (Verified Allergy, Unknown, VOMITING, 12/09/21) morphine (Unverified Allergy, Unknown, RASH, BREATHING DIFFICULTY, 12/09/21) propoxyphene (Verified Allergy, Unknown, 12/09/21) topiramate (Verified Allergy, Unknown, LOSS OF EYESIGHT, 12/09/21) codeine (Verified Adverse Reaction, Unknown, UPSET STOMACH, 12/09/21) dapagliflozin (Verified Adverse Reaction, Unknown, yeast infection, 12/09/21) Vitals & I&Os Vital Signs Date Time Temp Pulse Resp B/P (MAP) Pulse Ox O2 Delivery O2 Flow Rate FiO2 01/23/22 11:08 36.7 84 18 138/79 99 Nasal Cannula 4.00 General Appearance: Alert, Oriented X3, Cooperative Respiratory: Clear to Auscultation Cardiovascular: Regular Rate Psych/Mental Status: Mental Status NL Hospital Course Was the Problem List Reviewed?: Yes Discharge Summary: Ms. Taveras is a 66 year old female who transferred from [facility] fourth floor to the ARU on 01/15/22. Patient was admitted to [facility] on 01/13 for management of an acute CHF exacerbation. Patient has a PMHx of CHF, COPD, HTN, T2 DM, Stage III CKD, HLD, pulmonary hypertension, anxiety, CAD, sleep apnea, and depression. The patient requires 4L of supplemental O2 at home. The patient was stable to transfer to ARU and begin therapy. The patient's goals were to rehabilitate to return home, mitigate chronic disease symptoms, and prevent future hospital stays. During the patient's stay she received counseling regarding her prognosis and various options were discussed with her, including hospice care. After discussion the patient declined hospice care upon returning home. The patient wa s continued on diuresis therapy while receiving care with the ARU. The patient was treated for intertrigo of the abdomen/groin during her stay with improvement. The patient received therapy from PT and OT services. Prior to the patient's admission, the patient was requiring assistance with ADLs. The patient has met the goals established by PT and OT services and has made improvements in independence with ADLs, endurance, and activity tolerance. Discharge instructions: Follow-up with PCP. In-patient PT and OT is not recommended at this time. Refer to PCP for recommendations regarding out-patient therapy. REJI DUARTE Jan 23, 2022 15:38 Labs (last 24 hrs) Laboratory Tests 01/15/22 16:15: Glucometer 123H 01/15/22 20:38: Glucometer 119H 01/16/22 05:45: Glucometer 106 01/16/22 05:50: White Blood Count 7.4, Red Blood Count 2.98L, Hemoglobin 9.4L, Hematocrit 32L, Mean Corpuscular Volume 106H, Mean Corpuscular Hemoglobin 32, Mean Corpuscular Hemoglobin Concent 30L, Red Cell Distribution Width 13.1, Platelet Count 203, Mean Platelet Volume 9.5, Immature Granulocyte % (Auto) 0, Neutrophils (%) (Auto) 74, Lymphocytes (%) (Auto) 12, Monocytes (%) (Auto) 5, Eosinophils (%) (Auto) 7, Basophils (%) (Auto) 1, Neutrophils # (Auto) 5.5, Lymphocytes # (Auto) 0.9L, Monocytes # (Auto) 0.4, Eosinophils # (Auto) 0.5H, Basophils # (Auto) 0.1, Immature Granulocyte # (Auto) 0.0, Sodium Level 142, Potassium Level 4.2, Chloride Level 99, Carbon Dioxide Level 32, Anion Gap 11, Blood Urea Nitrogen 40H, Creatinine 1.57H, Estimat Glomerular Filtration Rate 36, BUN/Creatinine Ratio 25, Glucose Level 99, Calcium Level 8.6, Corrected Calcium 9.2, Total Bilirubin 0.4, Aspartate Amino Transf (AST/SGOT) 20, Alanine Aminotransferase (ALT/SGPT) 25, Alkaline Phosphatase 125, Total Protein 6.8, Albumin 3.3 01/16/22 10:47: Glucometer 112H 01/16/22 13:09: Glucometer 93 01/16/22 15:47: Glucometer 164H 01/16/22 20:05: Glucometer 182H 01/17/22 05:57: Glucometer 150H 01/17/22 10:00: Glucometer 111H 01/17/22 15:11: Glucometer 149H 01/17/22 20:22: Glucometer 167H 01/18/22 05:25: Sodium Level 142, Potassium Level 4.4, Chloride Level 98, Carbon Dioxide Level 30, Anion Gap 14, Blood Urea Nitrogen 34H, Creatinine 1.41H, Estimat Glomerular Filtration Rate 41, BUN/Creatinine Ratio 24, Glucose Level 169H, Calcium Level 8.6 01/18/22 10:46: Glucometer 149H 01/18/22 20:48: Glucometer 173H 01/19/22 05:40: Sodium Level 139, Potassium Level 3.9, Chloride Level 96L, Carbon Dioxide Level 31, Anion Gap 12, Blood Urea Nitrogen 35H, Creatinine 1.42H, Estimat Glomerular Filtration Rate 40, BUN/Creatinine Ratio 25, Glucose Level 176H, Calcium Level 8.6 01/19/22 05:47: Glucometer 168H 01/19/22 11:00: Glucometer 201H 01/19/22 15:12: Glucometer 210H 01/19/22 20:11: Glucometer 133H 01/20/22 05:10: Sodium Level 141, Potassium Level 4.2, Chloride Level 95L, Carbon Dioxide Level 32, Anion Gap 14, Blood Urea Nitrogen 34H, Creatinine 1.69H, Estimat Glomerular Filtration Rate 33, BUN/Creatinine Ratio 20, Glucose Level 197H, Calcium Level 8.6, Corrected Calcium 9.1, Total Bilirubin 0.4, Aspartate Amino Transf (AST/SGOT) 14, Alanine Aminotransferase (ALT/SGPT) 12, Alkaline Phosphatase 115, Total Protein 7.0, Albumin 3.4 01/20/22 05:20: White Blood Count 10.7, Red Blood Count 3.04L, Hemoglobin 9.6L, Hematocrit 32L, Mean Corpuscular Volume 105H, Mean Corpuscular Hemoglobin 32, Mean Corpuscular Hemoglobin Concent 30L, Red Cell Distribution Width 12.9, Platelet Count 173, Mean Platelet Volume 9.5, Immature Granulocyte % (Auto) 1, Neutrophils (%) (Auto) 79H, Lymphocytes (%) (Auto) 9L, Monocytes (%) (Auto) 5, Eosinophils (%) (Auto) 6, Basophils (%) (Auto) 1, Neutrophils # (Auto) 8.5H, Lymphocytes # (Auto) 1.0, Monocytes # (Auto) 0.6, Eosinophils # (Auto) 0.6H, Basophils # (Auto) 0.1, Immature Granulocyte # (Auto) 0.1, Glucometer 175H 01/20/22 10:46: Glucometer 222H 01/20/22 16:05: Glucometer 109 01/20/22 20:14: Glucometer 184H 01/21/22 05:35: Sodium Level 142, Potassium Level 3.5L, Chloride Level 95L, Carbon Dioxide Level 35H, Anion Gap 12, Blood Urea Nitrogen 36H, Creatinine 1.45H, Estimat Glomerular Filtration Rate 39, BUN/Creatinine Ratio 25, Glucose Level 100, Calcium Level 8.4L 01/21/22 05:36: Glucometer 99 01/21/22 10:58: Glucometer 134H 01/21/22 15:20: Glucometer 179H 01/21/22 20:26: Glucometer 162H 01/22/22 05:33: Glucometer 181H 01/22/22 05:39: Sodium Level 141, Potassium Level 3.9, Chloride Level 94L, Carbon Dioxide Level 34H, Anion Gap 13, Blood Urea Nitrogen 34H, Creatinine 1.44H, Estimat Glomerular Filtration Rate 40, BUN/Creatinine Ratio 24, Glucose Level 194H, Calcium Level 8.5 01/22/22 10:46: Glucometer 173H 01/22/22 16:38: Glucometer 167H 01/22/22 20:07: Glucometer 170H 01/23/22 06:17: Glucometer 201H 01/23/22 06:20: Sodium Level 142, Potassium Level 3.9, Chloride Level 97L, Carbon Dioxide Level 34H, Anion Gap 11, Blood Urea Nitrogen 31H, Creatinine 1.44H, Estimat Glomerular Filtration Rate 40, BUN/Creatinine Ratio 22, Glucose Level 207H, Calcium Level 9.0 Pending Labs Laboratory Tests 01/15/22 16:15: Glucometer 123 01/15/22 20:38: Glucometer 119 01/16/22 05:45: Glucometer 106 01/16/22 05:50: White Blood Count 7.4, Red Blood Count 2.98, Hemoglobin 9.4, Hematocrit 32, Mean Corpuscular Volume 106, Mean Corpuscular Hemoglobin 32, Mean Corpuscular Hemoglobin Concent 30, Red Cell Distribution Width 13.1, Platelet Count 203, Mean Platelet Volume 9.5, Immature Granulocyte % (Auto) 0, Neutrophils (%) (Auto) 74, Lymphocytes (%) (Auto) 12, Monocytes (%) (Auto) 5, Eosinophils (%) (Auto) 7, Basophils (%) (Auto) 1, Neutrophils # (Auto) 5.5, Lymphocytes # (Auto) 0.9, Monocytes # (Auto) 0.4, Eosinophils # (Auto) 0.5, Basophils # (Auto) 0.1, Immature Granulocyte # (Auto) 0.0, Sodium Level 142, Potassium Level 4.2, Chloride Level 99, Carbon Dioxide Level 32, Anion Gap 11, Blood Urea Nitrogen 40, Creatinine 1.57, Estimat Glomerular Filtration Rate 36, BUN/Creatinine Ratio 25, Glucose Level 99, Calcium Level 8.6, Corrected Calcium 9.2, Total Bilirubin 0.4, Aspartate Amino Transf (AST/SGOT) 20, Alanine Aminotransferase (ALT/SGPT) 25, Alkaline Phosphatase 125, Total Protein 6.8, Albumin 3.3 01/16/22 10:47: Glucometer 112 01/16/22 13:09: Glucometer 93 01/16/22 15:47: Glucometer 164 01/16/22 20:05: Glucometer 182 01/17/22 05:57: Glucometer 150 01/17/22 10:00: Glucometer 111 01/17/22 15:11: Glucometer 149 01/17/22 20:22: Glucometer 167 01/18/22 05:25: Sodium Level 142, Potassium Level 4.4, Chloride Level 98, Carbon Dioxide Level 30, Anion Gap 14, Blood Urea Nitrogen 34, Creatinine 1.41, Estimat Glomerular Filtration Rate 41, BUN/Creatinine Ratio 24, Glucose Level 169, Calcium Level 8.6 01/18/22 10:46: Glucometer 149 01/18/22 20:48: Glucometer 173 01/19/22 05:40: Sodium Level 139, Potassium Level 3.9, Chloride Level 96, Carbon Dioxide Level 31, Anion Gap 12, Blood Urea Nitrogen 35, Creatinine 1.42, Estimat Glomerular Filtration Rate 40, BUN/Creatinine Ratio 25, Glucose Level 176, Calcium Level 8.6 01/19/22 05:47: Glucometer 168 01/19/22 11:00: Glucometer 201 01/19/22 15:12: Glucometer 210 01/19/22 20:11: Glucometer 133 01/20/22 05:10: Sodium Level 141, Potassium Level 4.2, Chloride Level 95, Carbon Dioxide Level 32, Anion Gap 14, Blood Urea Nitrogen 34, Creatinine 1.69, Estimat Glomerular Filtration Rate 33, BUN/Creatinine Ratio 20, Glucose Level 197, Calcium Level 8.6, Corrected Calcium 9.1, Total Bilirubin 0.4, Aspartate Amino Transf (AST/SGOT) 14, Alanine Aminotransferase (ALT/SGPT) 12, Alkaline Phosphatase 115, Total Protein 7.0, Albumin 3.4 01/20/22 05:20: White Blood Count 10.7, Red Blood Count 3.04, Hemoglobin 9.6, Hematocrit 32, Mean Corpuscular Volume 105, Mean Corpuscular Hemoglobin 32, Mean Corpuscular Hemoglobin Concent 30, Red Cell Distribution Width 12.9, Platelet Count 173, Mean Platelet Volume 9.5, Immature Granulocyte % (Auto) 1, Neutrophils (%) (Auto) 79, Lymphocytes (%) (Auto) 9, Monocytes (%) (Auto) 5, Eosinophils (%) (Auto) 6, Basophils (%) (Auto) 1, Neutrophils # (Auto) 8.5, Lymphocytes # (Auto) 1.0, Monocytes # (Auto) 0.6, Eosinophils # (Auto) 0.6, Basophils # (Auto) 0.1, Immature Granulocyte # (Auto) 0.1, Glucometer 175 01/20/22 10:46: Glucometer 222 01/20/22 16:05: Glucometer 109 01/20/22 20:14: Glucometer 184 01/21/22 05:35: Sodium Level 142, Potassium Level 3.5, Chloride Level 95, Carbon Dioxide Level 35, Anion Gap 12, Blood Urea Nitrogen 36, Creatinine 1.45, Estimat Glomerular Filtration Rate 39, BUN/Creatinine Ratio 25, Glucose Level 100, Calcium Level 8.4 01/21/22 05:36: Glucometer 99 01/21/22 10:58: Glucometer 134 01/21/22 15:20: Glucometer 179 01/21/22 20:26: Glucometer 162 01/22/22 05:33: Glucometer 181 01/22/22 05:39: Sodium Level 141, Potassium Level 3.9, Chloride Level 94, Carbon Dioxide Level 34, Anion Gap 13, Blood Urea Nitrogen 34, Creatinine 1.44, Estimat Glomerular Filtration Rate 40, BUN/Creatinine Ratio 24, Glucose Level 194, Calcium Level 8.5 01/22/22 10:46: Glucometer 173 01/22/22 16:38: Glucometer 167 01/22/22 20:07: Glucometer 170 01/23/22 06:17: Glucometer 201 01/23/22 06:20: Sodium Level 142, Potassium Level 3.9, Chloride Level 97, Carbon Dioxide Level 34, Anion Gap 11, Blood Urea Nitrogen 31, Creatinine 1.44, Estimat Glomerular Filtration Rate 40, BUN/Creatinine Ratio 22, Glucose Level 207, Calcium Level 9.0 Discharge Home Medications: Active Scripts Active Bumetanide 1 Mg Tablet 1 Mg PO BID@0900,1400 Entresto 24 mg-26 mg Tablet (Sacubitril/Valsartan) 24 Mg-26 Mg Tablet 0.5 Tab PO BID Furosemide 40 Mg Tablet 40 Mg PO DAILY@0700,1200 Reported Alprazolam 0.5 Mg Tablet 0.5 Mg PO BID PRN Ventolin Hfa (Albuterol Sulfate) 90 Mcg Hfa.aer.ad 2 Puff INH Q6H PRN Trazodone HCl 50 Mg Tablet 150 Mg PO HS TAKES 3 (50MG) TABS Melatonin 3 Mg Tablet 3 Mg PO HS Buspirone HCl 5 Mg Tablet 5 Mg PO BID Promethazine Tablet (Promethazine HCl) 25 Mg Tablet 25 Mg PO Q6H PRN Yupelri (Revefenacin) 175 Mcg/3 Ml Vial.neb 175 Mcg IH 1200 Perforomist (Formoterol Fumarate) 20 Mcg/2 Ml Vial.neb 20 Mcg IH BID Budesonide 0.5 Mg/2 Ml Ampul.neb 0.5 Mg IH BID Vitamin D3 (Cholecalciferol (Vitamin D3)) 125 Mcg (5000 Unit) Tablet 125 Mcg PO DAILY Vitamin C (Ascorbate Calcium) 500 Mg Tablet 500 Mg PO DAILY Zinc (Zinc Amino Acid Chelate) 50 Mg Tablet 50 Mg PO DAILY Neurontin (Gabapentin) 300 Mg Capsule 300 Mg PO QID Venlafaxine HCl ER (Venlafaxine HCl) 150 Mg Cap.er.24h 150 Mg PO DAILY Sildenafil (Sildenafil Citrate) 20 Mg Tablet 20 Mg PO TID Insulin Aspart Flexpen (Insulin Aspart) 100 Unit/Ml (3 Ml) Insuln.pen 6 Unit SQ DAILY Simvastatin 10 Mg Tablet 10 Mg PO HS Montelukast Sodium 10 Mg Tablet 10 Mg PO HS Potassium Chloride 10 Meq Tab.er.prt 10 Meq PO DAILY Pantoprazole Sodium 40 Mg Tablet.dr 40 Mg PO DAILY Levothyroxine Sodium 125 Mcg Tablet 125 Mcg PO DAILY Tylenol Extra Strength (Acetaminophen) 500 Mg Tablet 1,000 Mg PO BID PRN Aspirin EC (Aspirin) 81 Mg Tablet.dr 81 Mg PO DAILY Metoprolol Succinate 25 Mg Tab.er.24h 25 Mg PO DAILY Tresiba Flextouch U-200 (Insulin Degludec) 200 Unit/Ml (3 Ml) Insuln.pen 30 Units SC BID Instructions to patient/family Please see electronic discharge instructions given to patient. Diagnosis/Problems Diagnosis/Problems (1) Acute on chronic heart failure with preserved ejection fraction (HFpEF) Status: Acute Clinical Quality Measures DVT/VTE Risk/Contraindication: Contraindications-Pharm: Other *list below* Other: abd hematoma FERN BAILEY DO Jan 23, 2022 06:17
[2022-01-23] MEDS: inSUlin ASPART (NovoLOG) 1 UNIT/0.01 ML (CHARGE PER UNIT) SC SCH (06:26)
[2022-01-23] MEDS: PANTOPRAZOLE 40 MG (PROTONIX) TAB PO SCH (06:27)
[2022-01-23] MEDS: inSUlin ASPART (NovoLOG) 1 UNIT/0.01 ML (CHARGE PER UNIT) SQ SCH (06:27)
[2022-01-23] MEDS: LEVOTHYROXINE 125 MCG (LEVOTHROID) TABLET PO SCH (06:27)
[2022-01-23] MEDS: KCL 10 MEQ TAB (MICRO K) PO SCH (06:27)
[2022-01-23 06:35] LABS: POTASSIUM 3.9 MMOL/L (3.6-5.0)
[2022-01-23 06:41] LABS: CREATININE SERUM 1.44 MG/DL (0.60-1.30)
[2022-01-23] MEDS: RT-BUDESONIDE NEBS 0.5 MG/2ML (PULMICORT) AMP IH SCH (07:49)
[2022-01-23] MEDS: RT-ALBUTEROL SULF 2.5 MG/3 ML PRE-MIX VIAL INH SCH (07:49)
[2022-01-23] MEDS: UMECLIDINIUM BROMIDE (INCRUSE ELLIPTA) 7'S IH SCH (07:49)
[2022-01-23 07:59] VITALS: BP 138/79
[2022-01-23] MEDS: VITAMIN D3 125 MCG (5,000 UNITS) CAPSULE PO SCH (08:09)
[2022-01-23] MEDS: SACUBITRIL/VALSARTAN 24/26 MG (ENTRESTO) TABLET PO SCH (08:09)
[2022-01-23] MEDS: busPIRone 5 MG (BUSPAR) TAB PO SCH (08:09)
[2022-01-23] MEDS: SILDENAFIL 20 MG (REVATIO) TAB PO SCH (08:09)
[2022-01-23] MEDS: ASCORBIC ACID (VIT C) 500 MG TABLET PO SCH (08:09)
[2022-01-23] MEDS: ZINC SULFATE 220 MG CAPSULE PO SCH (08:09)
[2022-01-23] MEDS: GABAPENTIN 300 MG (NEURONTIN) CAP PO SCH (08:09)
[2022-01-23] MEDS: SENNOSIDES 8.6 MG (SENOKOT) TAB PO SCH (08:09)
[2022-01-23] MEDS: BUMETANIDE 1 MG (BUMEX) TAB PO SCH (08:09)
[2022-01-23] MEDS: VENlafaxine XR 75 MG (EFFEXOR XR) CAP PO SCH (08:09)
[2022-01-23] MEDS: DOCUSATE SODIUM 100 MG (COLACE) CAP PO SCH (08:09)
[2022-01-23] MEDS: ASPIRIN E.C. 81 MG (ECOTRIN) TAB PO SCH (08:09)
[2022-01-23] MEDS: polyethylene glycoL POWDER 17 GM (MIRALAX) PACK PO SCH (08:10)
[2022-01-23] MEDS: MICONAZOLE 2% POWDER (DESENEX AF) 90 GM TOP SCH (08:10)
[2022-01-23] MEDS: SALINE NASAL SPRAY (OCEAN) 45 ML BTL SCH (08:10)
[2022-01-23 08:13] VITALS: BP 138/79
--- NOTE | 2022-01-23 08:37 | Cardiology Progress Note ---
Subjective Date Seen by Provider: Jan 23, 2022 Time Seen by Provider: 07:40 Subjective/Events-last exam Pt reports the same left shoulder and low back pain as yesterday (states it is due to the chair in the room). Denies CP and syncope. States that her SOB has improved. She thought she felt a few seconds of palpitations yesterday. Believes her swelling has improved. Dr. Quinones: I am following her due to heart failure. Her breathing and peripheral edema have improved. She denies chest discomfort. She was having some slight palpitations complaining of a fluttering in her chest yesterday without associated symptoms. She denies syncope. Certain portions of this document may have been dictated utilizing voice recognition technology. Inherent to this technology, typographical and grammatical errors may exist. As much as I am diligent to identify and correct these mistakes, some errors may remain in the document. Focused Exam Respiratory: Lungs Clear, Normal Breath Sounds, No Accessory Muscle Use, No Respiratory Distress Cardiovascular: Regular Rate, Rhythm Skin: normal color, warm/dry Objective-Cardiology Exam Last Set of Vital Signs Vital Signs 01/23/22 08:13 Temp 36.7 Pulse 84 Resp 18 B/P (MAP) 138/79 (98) Pulse Ox 99 O2 Delivery Room Air O2 Flow Rate 4.00 4.00 I&O Intake and Output 01/23/22 00:00 Intake Total 1510 ml Balance 1510 ml Intake Oral 1510 ml # Voids 5 General: Alert, Oriented X3, Cooperative, No Acute Distress HEENT: Atraumatic, EOMI Neck: Supple Lungs: Other (Slightly diminished breath sounds bilaterally) Heart: Regular Rate, No Murmurs Abdomen: Soft, No Tenderness Extremities: No Edema Skin: No Significant Lesion Neuro: Normal Speech Psych/Mental Status: Mental Status NL, Mood NL Other physical findings Dr. Quinones: General: Alert. No acute distress. She is obese. She is wearing oxygen by nasal cannula. Eye: No xanthelasma. HENT: Normocephalic. Neck: Jugular venous pressure does not appear elevated. Respiratory: Lungs are clear to auscultation. Respirations are non-labored. Breath sounds are equal. Symmetrical chest wall expansion. Cardiovascular: Normal rate. Regular rhythm. No murmur. No gallop. No edema. Gastrointestinal: Soft. Normal bowel sounds. Skin: Warm. Dry. Neurologic: Alert and oriented to person, place, time. Cranial nerves 3-11 grossly intact. Psychiatric: Cooperative. Appropriate mood & affect. Results Lab Laboratory Tests 01/23/22 06:20 A/P-Cardiology Admission Diagnosis (1) Acute on chronic heart failure with preserved ejection fraction (HFpEF) Status: Acute Assessment & Plan: Symptomatically she has improved I changed the diuretic over to oral on 01/20 due to a slight rise in the creatinine. She had been ordered for metolazone every 48 hours. I discontinued this on 01/18 for the time being. She may not need the metolazone following discharge. I have also ordered a fluid restriction. Given the persistent pulmonary congestion on her chest x- ray, I started her on a low-dose of Entresto giving her half tablet twice a day of the lowest dose on 01/22. She will need to follow-up basic metabolic panel next week following discharge. I made a referral to the advanced heart failure team at [facility] per her and her family's request. I did this through my office EMR. Being on hospice does not make this a contraindication. From a cardiac standpoint, she is ready for discharge today. (2) Primary hypertension Status: Chronic Assessment & Plan: Blood pressure is reasonably controlled on a low-dose of metoprolol. We will need to watch her blood pressure closely with the addition of Entresto. The most common side effects from Entresto are low blood pressure, hyperkalemia and worsening renal function. (3) Mixed hyperlipidemia Status: Chronic (4) Pulmonary hypertension Status: Chronic Assessment & Plan: This is being followed by a nicking machine operator at [place]. She takes in the sildenafil which has been continued. She is also on home oxygen. This may be causing some persistent enlargement of the pulmonary arteries which may be misleading on her chest x-ray in regards to being reported as pulmonary congestion. (5) Mitral stenosis Status: Chronic (6) Stage 3b chronic kidney disease Status: Chronic (7) Morbid obesity Status: Chronic Assessment/Plan (1) Acute on chronic heart failure with preserved ejection fraction (HFpEF) Assessment & Plan: She is now receiving oral bumetanide. She was started on entresto. (2) Mitral stenosis Assessment & Plan: She has mild to moderate mitral stenosis noted on her previous echocardiogram. I do not think this is at the point that this needs intervention but this will need to be followed longitudinally. (3) Pulmonary hypertension Assessment & Plan: This is most likely multifactorial. The patient may benefit from home oxygen if she is not already using this. She does also follow with a nicking machine operator at [place]. (4) Primary hypertension Assessment & Plan: Continue outpatient antihypertensive medication. (5) Mixed hyperlipidemia Assessment & Plan: Continue statin medication. (6) Acute on chronic respiratory failure with hypoxemia Assessment & Plan: Most likely multifactorial due to underlying pulmonary disease as well as the decompensated heart failure. (7) Stage 3a chronic kidney disease Assessment & Plan: We will need to watch this closely with the intravenous diuretic. She will be seeing a workforce specialist as an outpatient in the near future. (8) Type 2 diabetes mellitus with complication Assessment & Plan: This is being managed by the hospitalist. (9) Morbid obesity Assessment & Plan: She has been counseled about weight loss and health implicat ions of obesity. Clinical Quality Measures DVT/VTE Risk/Contraindication: Contraindications-Pharm: Other *list below* Other: abd hematoma Supervisory-Addendum Brief Verification & Attestation Participated in pt care: history, MDM, physical Personally performed: exam, history, MDM Care discussed with: Medical Student Procedures: n/a Results interpretation: Verified all documentation I independently performed my own history and physical and physical examination. I formulated my own impression and plan. I also reviewed the documentation of the medical student. MILLER FELIZ Jan 23, 2022 08:37 JEANMARIE QUINONES JR, MD Jan 23, 2022 09:25
[2022-01-23 11:08] VITALS: BP 138/79
--- NOTE | 2022-01-23 14:56 | Therapy Team Discharge Summary ---
Therapy Discharge Summary Discharge Recommendations Date of Discharge Jan 23, 2022 at 11:00 Physical Therapy Roll Left to Right (QC): 6 Sit to Lying (QC): 6 Lying to Sitting/Side of Bed(Q: 6 Sit to Stand (QC): 6 Chair/Rxe-we-Emhce Xfer(QC): 6 Toilet Transfer (QC): 5 Car Transfer (QC): 6 Does the Patient Walk: Yes Mode of Locomotion: Walk Anticipated Mode of Locomotion: Walk Walk 10 feet (QC): 6 Walk 50 ft with 2 Turns(QC): 6 Walk 150 ft (QC): 6 Walking 10ft on uneven surface: 6 Distance: 100 feet Gait Assistive Device: FWW Does the Pt Use a Wheelchair: No Wheel 50 ft with 2 turns (QC): 5 Wheel 150 ft (QC): 5 Type of Wheelchair: Manual #of Steps: 8 1 Step (curb) (QC): 6 4 Steps (QC): 6 12 Steps (QC): 4 Balance Sitting Static: Good Balance Sitting Dynamic: Good Balance-Standing Static: Fair Picking up an Object (QC): 6 Occupational Therapy Pt admitted to ARU with CHF myopathy. At [facility], pt was independent with functional mobility using QC inside the house and w/c outside. She was typically able to complete ADLs independently, but did have assistance with groceries, sponge baths and other tasks as needed. Upon initial evaluation, pt was independent with eating, required SBA with oral care and toileting, mod A with footwear and LE dressing, and set up with showering and UE dressing. Pt made good progress towards goals, attaining all LTGs except footwear. Pt able to complete gripper socks independently, but requires min A with tedhose. Pt discharged from facility, d/c from OT. Decreased Activ Tolerance, Impaired I ADL's, Impaired Self-Care Skills Eating (QC): 6 Oral Hygiene (QC): 6 Shower/Bathe Self (QC): 6 Upper Body Dressing (QC): 6 Lower Body Dressing (QC): 6 On/Off Footwear (QC): 3 Toileting Hygiene (QC): 6 PT Correction Goals Top And Trim Worker Goals PT Top And Trim Worker Goals Time Frame: Feb 08, 2022 Roll Left to Right (QC): 6 Sit to Lying (QC): 6 Lying-Sitting on Side/Bed(QC): 6 Sit to Stand (QC): 6 Chair/Zwt-cn-Dfaqq Xfer(QC): 6 Toilet/Commode Transfer (QC): 6 Car Transfer (QC): 6 Does the Patient Walk: Yes Walk 10 feet (QC): 6 Walk 10ft-Uneven Surface(QC): 6 Walk 50ft with 2 Turns (QC): 6 Walk 150 ft (QC): 6 Does the Pt use WC or Scooter?: No Wheel 50 feet with 2 turns (QC: 9 Wheel 150 feet: 9 1 Step (curb) (QC): 6 4 Steps (QC): 6 12 Steps (QC): 6 Picking up an Object (QC): 6 OT Correction Goals Correction Goals Time Frame: Feb 07, 2022 Acute change in mental status: 0 Inattention: 0 Disorganized thinkin Altered level of consciousness: 0 Eating (QC): 6 (met) Oral Hygiene (QC): 6 (met) Toileting Hygiene (QC): 6 (met) Shower/Bathe Self (QC): 6 (met) Upper Body Dressing (QC): 6 (met) Lower Body Dressing (QC): 6 (met) On/Off Footwear (QC): 6 (not met-KHADRA hose min A, regular socks independent) Additional Goals: 1-Demonstrate ADL Tasks, 2-Verbalize Understanding, 3- ImproveStrength/Lola 1=Demonstrate adherence to instructed precautions during ADL tasks. 2=Patient will verbalize/demonstrate understanding of assistive devices/modifications for ADL. 3=Patient will improve strength/tolerance for activity to enable patient to perform ADL's. SABRINA AMADOR OT Jan 23, 2022 14:56
--- NOTE | 2022-01-23 15:35 | Therapy Team Discharge Summary ---
Therapy Discharge Summary Discharge Recommendations Date of Discharge Jan 23, 2022 at 11:00 Physical Therapy Patient came to rehab with CHF myopathy. Upon evaluation patient performed rolling and supine <-> sit with CGA/SBA, sit <-> stand and transfers with CGA/SBA, car transfer CGA/SBA, ambulated 100' with a rolling walker with min/mod assist (but CGA/SBA for 50' with at least 2 turns of 90 degrees and 10' over an uneven surface), went up and down 12 steps using 2 handrails with min/mod assist, and could pickling grader an object from the floor with min/mod assist. Patient has been performing bed mobility and transfer training, balance and endurance training, functional strengthening, stair training, gait training, and education. Patient has made good progress and has met all of her snf goals except for 12 steps. Now, patient performs rolling and supine <-> sit with independence, sit <-> stand and transfers with independence, car transfer independent, ambulates 150' with a rolling walker with independence (including 50' with at least 2 turns of 90 degrees and 10' over an uneven surface), can go up and down 8 steps using 1 handrail with independence, and can pickling grader an object from the floor using a fitness and wellness coordinator with independence. Patient has been discharged from this facility and will be discharged from PT at this time. Roll Left to Right (QC): 6 Sit to Lying (QC): 6 Lying to Sitting/Side of Bed(Q: 6 Sit to Stand (QC): 6 Chair/Cve-mk-Rrpcb Xfer(QC): 6 Toilet Transfer (QC): 6 Car Transfer (QC): 6 Does the Patient Walk: Yes Mode of Locomotion: Walk Anticipated Mode of Locomotion: Walk Walk 10 feet (QC): 6 Walk 50 ft with 2 Turns(QC): 6 Walk 150 ft (QC): 6 Walking 10ft on uneven surface: 6 Distance: 100 feet Gait Assistive Device: FWW Does the Pt Use a Wheelchair: No Wheel 50 ft with 2 turns (QC): 5 Wheel 150 ft (QC): 5 Type of Wheelchair: Manual #of Steps: 8 1 Step (curb) (QC): 6 4 Steps (QC): 6 12 Steps (QC): 4 Balance Sitting Static: Good Balance Sitting Dynamic: Good Balance-Standing Static: Fair Picking up an Object (QC): 6 Occupational Therapy Decreased Activ Tolerance, Impaired I ADL's, Impaired Self-Care Skills Eating (QC): 6 Oral Hygiene (QC): 6 Shower/Bathe Self (QC): 6 Upper Body Dressing (QC): 6 Lower Body Dressing (QC): 6 On/Off Footwear (QC): 3 Toileting Hygiene (QC): 6 PT Printing Machine Mechanic Goals Printing Machine Mechanic Goals PT Fpc Goals Time Frame: Feb 08, 2022 Roll Left to Right (QC): 6 Sit to Lying (QC): 6 Lying-Sitting on Side/Bed(QC): 6 Sit to Stand (QC): 6 Chair/Qyv-di-Uwnze Xfer(QC): 6 Toilet/Commode Transfer (QC): 6 Car Transfer (QC): 6 Does the Patient Walk: Yes Walk 10 feet (QC): 6 Walk 10ft-Uneven Surface(QC): 6 Walk 50ft with 2 Turns (QC): 6 Walk 150 ft (QC): 6 Does the Pt use WC or Scooter?: No Wheel 50 feet with 2 turns (QC: 9 Wheel 150 feet: 9 1 Step (curb) (QC): 6 4 Steps (QC): 6 12 Steps (QC): 6 Picking up an Object (QC): 6 OT Printing Machine Mechanic Goals Printing Machine Mechanic Goals Time Frame: Feb 07, 2022 Acute change in mental status: 0 Inattention: 0 Disorganized thinkin Altered level of consciousness: 0 Eating (QC): 6 (met) Oral Hygiene (QC): 6 (met) Toileting Hygiene (QC): 6 (met) Shower/Bathe Self (QC): 6 (met) Upper Body Dressing (QC): 6 (met) Lower Body Dressing (QC): 6 (met) On/Off Footwear (QC): 6 (not met-KHADRA hose min A, regular socks independent) Additional Goals: 1-Demonstrate ADL Tasks, 2-Verbalize Understanding, 3- ImproveStrength/Lola 1=Demonstrate adherence to instructed precautions during ADL tasks. 2=Patient will verbalize/demonstrate understanding of assistive devices/modifications for ADL. 3=Patient will improve strength/tolerance for activity to enable patient to perform ADL's. BRENT MORRIS PT Jan 23, 2022 15:35
--- NOTE | 2022-01-23 15:38 | Progress Note ---
REJI DUARTE 01/23/22 1538: Progress Note Discharge Summary: Ms. Taveras is a 66 year old female who transferred from [facility] fourth floor to the ARU on 01/15/22. Patient was admitted to [facility] on 01/13 for management of an acute CHF exacerbation. Patient has a PMHx of CHF, COPD, HTN, T2 DM, Stage III CKD, HLD, pulmonary hypertension, anxiety, CAD, sleep apnea, and depression. The patient requires 4L of supplemental O2 at home. The patient was stable to transfer to ARU and begin therapy. The patient's goals were to rehabilitate to return home, mitigate chronic disease symptoms, and prevent future hospital stays. During the patient's stay she received counseling regarding her prognosis and various options were discussed with her, including hospice care. After discussion the patient declined hospice care upon returning home. The patient was continued on diuresis therapy while receiving care with the ARU. The patient was treated for intertrigo of the abdomen/groin during her stay with improvement. The patient received therapy from PT and OT services. Prior to the patient's admission, the patient was requiring assistance with ADLs. The patient has met the goals established by PT and OT services and has made improvements in independence with ADLs, endurance, and activity tolerance. Discharge instructions: Follow-up with PCP. In-patient PT and OT is not recommended at this time. Refer to PCP for recommendations regarding out-patient therapy. DEYA BAILEY DO 01/24/22 0526: Supervisory-Addendum Brief Verification & Attestation Participated in pt care: history, MDM, physical Personally performed: exam, history, MDM, supervision of care Care discussed with: Medical Student Procedures: n/a Results interpretation: Verified all documentation Verification and Attestation of Medical Student E/M Service A medical student performed and documented this service in my presence. I reviewed and verified all information documented by the medical student and made modifications to such information, when appropriate. I personally performed the physical exam and medical decision making. Deya Bailey, Jan 24, 2022,05:26 REJI DUARTE Jan 23, 2022 15:38 DEYA BAILEY DO Jan 24, 2022 05:26
--- NOTE | 2022-01-24 11:46 | Physical Therapy Daily Note ---
PT Daily Note-Current Subjective Late Entry from 01-16-22 Patient sitting in recliner upon PT arrival, agreeable to treatment. Pain Section J - Health Conditions 1. Rarely or not at all 2. Occasionally 3. Frequently 4. Almost constantly 8. Unable to answer Pain Effect on Sleep: 2 Pain Interference with Therapy: 2 Pain Interference w/Day-to-Day: 2 Mental Status Patient Orientation: Person, Place, Time, Situation Transfers SCALE: Activities may be completed with or without assistive devices. 2-Iclhdfmpxe-llgtgzc completes the activity by him/herself with no assistance from a helper. 5-Set-up or Clean-up Assistance-helper sets up or cleans up; patient completes activity. [place] assists only prior to or following the activity. 4-Supervision or Touching Assistance-helper provides verbal cues and/or touching/steadying and/or contact guard assistance as patient completes activity. Assistance may be provided throughout the activity or intermittently. 3-Partial/Moderate Assistance-helper does LESS THAN HALF the effort. [place] lifts, holds or supports trunk or limbs, but provides less than half the effort. 2-Substantial/Maximal Assistance-helper does MORE THAN HALF the effort. [place] lifts or holds trunk or limbs and provides more than half the effort. 8-Ioyowgdif-zlowzf does ALL the effort. Patient does none of the effort to complete the activity. Or, the assistance of 2 or more helpers is required for the patient to complete the activity. If activity was not attempted, code reason: 7-Patient Refused. 9-Not Applicable-not attempted and the patient did not perform the activity before the current illness, exacerbation or injury. 10-Not Attempted due to Environmental Limitations-(lack of equipment, weather restraints, etc.). 88-Not Attempted due to Medical Conditions or Safety Concerns. Roll Left & Right (QC): 6 Sit to Lying (QC): 6 Lying to Sitting/Side of Bed(Q: 4 Sit to Stand (QC): 4 Chair/Bej-aq-Exvcu Xfer(QC): 4 Weight Bearing Right Lower Extremity: Right Full Weight Bearing Left Lower Extremity: Left Full Weight Bearing Gait Training Does the Patient Walk?: Yes Distance: 250' Walk 10 feet (QC): 4 Walk 50 ft with 2 Turns(QC): 4 Walk 150 ft (QC): 4 Gait Assistive Device: FWW Assessment Current Status: Fair Progress Patient tolerated treatment well. Demonstrates improved gait distance. Patient performs all observed bed mobility with [place] and all observed transfers with SBA. Patient ambulates 250 feet with FWW, with SBA and verbal cues for safety, progression, posture and conservation of energy. Patient in chair post treatment with all needs met, nursing notified, call light in hand. PT Shipping Technician Goals Shipping Technician Goals PT Residential Goals Time Frame: Feb 08, 2022 Roll Left & Right (QC): 6 Sit to Lying (QC): 6 Lying-Sitting on Side/Bed(QC): 6 Sit to Stand (QC): 6 Chair/Ftz-bi-Efxlm Xfer(QC): 6 Toilet Transfer (QC): 6 Car Transfer (QC): 6 Does the Patient Walk: Yes Walk 10 feet (QC): 6 Walk 50ft with 2 Turns (QC): 6 Walk 150 ft (QC): 6 Walking 10ft on Uneven Surface: 6 1 Step (curb) (QC): 6 4 Steps (QC): 6 12 Steps (QC): 6 Picking up an Object (QC): 6 Does the Pt use WC or Scooter?: No Wheel 50 feet with 2 turns (QC: 9 Wheel 150 feet: 9 PT Plan Treatment/Plan Treatment Plan: Continue Plan of Care Treatment Plan: Bed Mobility, Education, Functional Activity Lola, Functional Strength, Group Therapy, Gait, Safety, Therapeutic Exercise, Transfers Treatment Duration: Mar 08, 2022 Frequency: At least 5 of 7 days/Wk (IRF) Estimated Hrs Per Day: 1.5 hours per day Patient and/or Family Agrees t: Yes Safety Risks/Education Patient Education: Gait Training Teaching Recipient: Patient Teaching Methods: Demonstration, Discussion Response to Teaching: Verbalize Understanding, Return Demonstration Time Time In: 1300 Time Out: 1315 DATE: Jan 16, 2022 Total Billed Treatment Time: 15 Total Billed Treatment Visit, KARTHIK Reeves PT Jan 24, 2022 11:46
== END 2022-01-23 11:00 | disposition home health service (06) | DRG 91 ==
PROVIDERS: ADMIT Internal Medicine; ATTEND Internal Medicine
DX: G72.89 Other specified myopathies (principal); I50.33 Acute on chronic diastolic (congestive) heart failure; J96.21 Acute and chronic respiratory failure with hypoxia; I13.0 Hypertensive heart and chronic kidney disease with heart failure and stage 1 through stage 4 chronic kidney disease, or unspecified chronic kidney disease; I42.9 Cardiomyopathy, unspecified; Z68.41 Body mass index [BMI] 40.0-44.9, adult; E11.22 Type 2 diabetes mellitus with diabetic chronic kidney disease; E11.40 Type 2 diabetes mellitus with diabetic neuropathy, unspecified; Z66 Do not resuscitate; I05.0 Rheumatic mitral stenosis; F41.9 Anxiety disorder, unspecified; I27.20 Pulmonary hypertension, unspecified; J44.9 Chronic obstructive pulmonary disease, unspecified; I25.10 Atherosclerotic heart disease of native coronary artery without angina pectoris; G47.30 Sleep apnea, unspecified; N18.31 Chronic kidney disease, stage 3a; F32.A Depression, unspecified; E66.01 Morbid (severe) obesity due to excess calories; L30.4 Erythema intertrigo; E87.5 Hyperkalemia; K21.9 Gastro-esophageal reflux disease without esophagitis; E03.9 Hypothyroidism, unspecified; H54.3 Unqualified visual loss, both eyes; T80.89XD Other complications following infusion, transfusion and therapeutic injection, subsequent encounter; R58 Hemorrhage, not elsewhere classified; E78.2 Mixed hyperlipidemia; Z79.4 Long term (current) use of insulin; Z79.82 Long term (current) use of aspirin; Z88.5 Allergy status to narcotic agent; Z88.0 Allergy status to penicillin; Z88.8 Allergy status to other drugs, medicaments and biological substances; Z83.3 Family history of diabetes mellitus; Z82.49 Family history of ischemic heart disease and other diseases of the circulatory system
CPT/HCPCS: 36415; 71046; 80048; 80053; 82947; 85025; 94640; 94760

== ENCOUNTER → 2022-02-10 | Outpatient (CLI) | payer MEDICARE, OTHER ==
[~2022-02-10] MED LIST changes: +BUME1TAB8 PO; +SACU1TAB2 PO
[2022-02-10 10:02] LABS: BASOPHILS # (AUTO) 0.1 10^3/uL (0.0-0.1); BASOPHILS % (AUTO) 1 % (0-10); EOSINOPHILS # (AUTO) 0.2 10^3/uL (0.0-0.3); EOSINOPHILS % (AUTO) 2 % (0-10); HEMATOCRIT 33 % (35-52); LYMPHOCYTES # (AUTO) 0.7 10^3/uL (1.0-4.0); LYMPHOCYTES % (AUTO) 6 % (12-44); MEAN CORPUSCULAR HEMOGLOBIN 32 pg (25-34); MEAN CORPUSCULAR HGB CONC 31 g/dL (32-36); MEAN CORPUSCULAR VOLUME 104 fL (80-99); MONOCYTES # (AUTO) 0.5 10^3/uL (0.0-1.0); MONOCYTES % (AUTO) 4 % (0-12); NEUTROPHILS % (AUTO) 87 % (42-75); PLATELET COUNT 168 10^3/uL (130-400); WHITE BLOOD COUNT 11.6 10^3/uL (4.3-11.0)
[2022-02-10 10:24] LABS: ALBUMIN 3.6 GM/DL (3.2-4.5); CALCIUM 8.5 MG/DL (8.5-10.1); CREATININE SERUM 1.62 MG/DL (0.60-1.30); PHOSPHORUS 4.3 MG/DL (2.3-4.7); POTASSIUM 4.5 MMOL/L (3.6-5.0)
[2022-02-10 10:37] LABS: BASOPHILS % (MANUAL) 0 %; EOSINOPHILS % (MANUAL) 1 %; LYMPHOCYTES % (MANUAL) 9 %; MONOCYTES % (MANUAL) 4 %; NEUTROPHILS % (MANUAL) 86 %
--- NOTE | 2022-02-10 13:34 | Diagnostic Imaging Report ---
PROCEDURE: US Renal Bilateral. TECHNIQUE: Multiple real-time grayscale images were obtained over the kidneys in various projections bilaterally. INDICATION: Chronic kidney disease. COMPARISON: None. FINDINGS: Both kidneys are normal in size and echogenicity. Both kidneys measure approximately 9 cm in length The cortical thickness and the cortical medullary differentiation is well maintained. There is no evidence of calculi, focal mass or hydronephrosis. Limited views of the pelvis demonstrate minimally distended urinary bladder. No large intraluminal masses or calculi are present. There is no ascites. IMPRESSION: Normal renal sonogram. Dictated by: Dictated on workstation # [id number]
[2022-02-10 20:57] LABS: HEPATITIS C ANTIBODY C Non-Reactive (Non-Reactive)
== END ==
LOC: RAD 09:00
PROVIDERS: ATTEND Internal Medicine Nephrology
DX: I12.9 Hypertensive chronic kidney disease with stage 1 through stage 4 chronic kidney disease, or unspecified chronic kidney disease (principal); N18.32 Chronic kidney disease, stage 3b; D63.1 Anemia in chronic kidney disease; I27.23 Pulmonary hypertension due to lung diseases and hypoxia; J96.11 Chronic respiratory failure with hypoxia
CPT/HCPCS: 36415; 76770; 80069; 80074; 82306; 82595; 82728; 83540; 83550; 83970; 84155; 84165; 84550; 85007; 85027; 86021; 86038; 86039; 86160; 86225; 86235; 86431

== ENCOUNTER → 2022-04-17 | Outpatient (CLI) | payer MEDICARE, OTHER ==
[2022-04-17 13:10] VITALS: BP 123/57
== END ==
LOC: SDC 12:45
PROVIDERS: ATTEND Internal Medicine
DX: Z45.2 Encounter for adjustment and management of vascular access device (principal)
CPT/HCPCS: 96523

== ENCOUNTER 2022-05-02 17:57 | Emergency (ER) | payer MEDICARE, OTHER ==
[~2022-05-02] VITALS: Ht 163 cm; Wt 105.0 kg
--- NOTE | 2022-05-02 19:21 | ED Cough/URI ---
General Chief Complaint: Cough/Cold/Flu Symptoms Stated Complaint: ABDNORMAL LABS Nursing Triage Note: patient to er via wheelchair w c/o abnormal labs. Patient states she went to [facility] today for her cough. Labs were drawn at [facility] around 1200 today. Patient states she was called by [facility] with abnormal lab results so they recommended she come to the ER. Cough started 2 days ago. hx of CHF, Kidney/lung, bronchitis, and anxiety. Source: patient, family Exam Limitations: no limitations History of Present Illness Date Seen by Provider: May 02, 2022 Time Seen by Provider: 19:12 Initial Comments Patient is a 66-year-old female who presents to the emergency room with a chief complaint of "abnormal labs". Patient states that she has had upper respiratory congestion, runny nose and nonproductive cough for the last 2 to 3 days. She went to urgent care this morning. They did lab work on her and she states a chest x-ray. They called her this afternoon and told her that her white blood cell count was very high and some other test and she needed to come to the emergency room. Patient denies fevers or chills. She states she had a COVID and flu test as well as a strep test that were all normal at urgent care. She denies excessive swelling in her legs or pain. She is chronically on 4 L of oxygen per nasal cannula and has not had to increase that. She denies chest pain or palpitations. No hemoptysis. She states she wishes her cough was produ ctive but it is not. Patient tells me that she has a history of kidney disease, chronic congestive failure and COPD. Her family who is at the bedside also states that she is a very anxious person. All other review of systems reviewed and negative except as stated Timing/Duration: other (2- days) Severity/Quality: moderate, dry cough Prior Episodes/Possible Cause: occasional episodes Modifying Factors: Improves With Oxygen Associated Symptoms: cough, earache ("fullness" or "blocked"), nasal congestion Allergies and Home Medications Allergies Coded Allergies: Penicillins (Verified Allergy, Unknown, VOMITING, 12/09/21) meperidine (Verified Allergy, Unknown, VOMITING, 12/09/21) morphine (Unverified Allergy, Unknown, RASH, BREATHING DIFFICULTY, 12/09/21) propoxyphene (Verified Allergy, Unknown, 12/09/21) topiramate (Verified Allergy, Unknown, LOSS OF EYESIGHT, 12/09/21) codeine (Verified Adverse Reaction, Unknown, UPSET STOMACH, 12/09/21) dapagliflozin (Verified Adverse Reaction, Unknown, yeast infection, 12/09/21) Patient Home Medication List Home Medication List Reviewed: Yes Acetaminophen (Tylenol Extra Strength) 500 Mg Tablet, 1,000 MG PO BID PRN for PAIN-MILD, (Reported) Entered as Reported by: MOODY FRANCO on 11/02/17 1632 Albuterol Sulfate (Ventolin Hfa) 90 Mcg Hfa.aer.ad, 2 PUFF INH Q6H PRN for SHORTNESS OF BREATH, (Reported) Entered as Reported by: TROY HAQUE on 01/03/22 112 Alprazolam (Alprazolam) 0.5 Mg Tablet, 0.5 MG PO BID PRN for ANXIETY, (Reported) Entered as Reported by: TROY HAQUE on 01/03/22 112 Ascorbate Calcium (Vitamin C) 500 Mg Tablet, 500 MG PO DAILY, (Reported) Entered as Reported by: TEJA OPRTILLO on 08/12/21 1323 Aspirin (Aspirin EC) 81 Mg Tablet.dr, 81 MG PO DAILY, (Reported) Entered as Reported by: MOODY FRANCO on 11/02/17 1632 Budesonide (Budesonide) 0.5 Mg/2 Ml Ampul.neb, 0.5 MG IH BID, (Reported) Entered as Reported by: TEJA PORTILLO on 08/12/21 1503 Bumetanide (Bumetanide) 1 Mg Tablet, 1 MG PO BID@0900,1400 Prescribed by: FERN BAILEY on 01/23/22 0616 Buspirone HCl (Buspirone HCl) 5 Mg Tablet, 5 MG PO BID, (Reported) Entered as Reported by: TROY HAQUE on 01/03/22 112 Cefdinir (Cefdinir) 300 Mg Capsule, 300 MG PO BID Prescribed by: CROW HERNANDEZ on 05/02/222025 Cholecalciferol (Vitamin D3) (Vitamin D3) 125 Mcg (5000 Unit) Tablet, 125 MCG PO DAILY, (Reported) Entered as Reported by: TEJA PORTILLO on 08/12/21 1324 Formoterol Fumarate (Perforomist) 20 Mcg/2 Ml Vial.neb, 20 MCG IH BID, (Reported) Entered as Reported by: TEJA PORTILLO on 08/12/21 1503 Gabapentin (Neurontin) 300 Mg Capsule, 300 MG PO QID, (Reported) Entered as Reported by: TEJA PORTILLO on 08/12/21 1320 Insulin Aspart (Insulin Aspart Flexpen) 100 Unit/Ml (3 Ml) Insuln.pen, 6 UNIT SQ DAILY, (Reported) Entered as Reported by: Linh Cat on 08/11/21 1009 Insulin Degludec (Tresiba Flextouch U-200) 200 Unit/Ml (3 Ml) Insuln.pen, 30 UNITS SC BID, (Reported) Entered as Reported by: MOODY FRANCO on 11/02/17 1632 Levothyroxine Sodium (Levothyroxine Sodium) 125 Mcg Tablet, 125 MCG PO DAILY, (Reported) Entered as Reported by: ALHAJI HORTA on 09/13/19 0833 Melatonin (Melatonin) 3 Mg Tablet, 3 MG PO HS, (Reported) Entered as Reported by: TROY HAQUE on 01/03/22 1127 Metoprolol Succinate (Metoprolol Succinate) 25 Mg Tab.er.24h, 25 MG PO DAILY, (Reported) Entered as Reported by: MOODY FRANCO on 11/02/17 1632 Montelukast Sodium (Montelukast Sodium) 10 Mg Tablet, 10 MG PO HS, (Reported) Entered as Reported by: TROY HAQUE on 06/20/20 1407 Pantoprazole Sodium (Pantoprazole Sodium) 40 Mg Tablet.dr, 40 MG PO DAILY, (Reported) Entered as Reported by: ALHAJI HORTA on 09/13/19 0833 Potassium Chloride (Potassium Chloride) 10 Meq Tab.er.prt, 10 MEQ PO DAILY, (Reported) Entered as Reported by: TROY HAQUE on 06/20/20 1407 Promethazine HCl (Promethazine Tablet) 25 Mg Tablet, 25 MG PO Q6H PRN for NAUSEA/VOMITING-2ND LINE, (Reported) Entered as Reported by: TROY HAQUE on 12/03/21 1230 Revefenacin (Yupelri) 175 Mcg/3 Ml Vial.neb, 175 MCG IH 1200, (Reported) Entered as Reported by: TEJA PORTILLO on 08/12/21 1504 Sacubitril/Valsartan (Entresto 24 mg-26 mg Tablet) 24 Mg-26 Mg Tablet, 0.5 TAB PO BID Prescribed by: FERN BAILEY on 01/23/22 0616 Sildenafil Citrate (Sildenafil) 20 Mg Tablet, 20 MG PO TID, (Reported) Entered as Reported by: Linh Cat on 08/11/21 1009 Simvastatin (Simvastatin) 10 Mg Tablet, 10 MG PO HS, (Reported) Entered as Reported by: Linh Cat on 08/11/21 1009 Trazodone HCl (Trazodone HCl) 50 Mg Tablet, 150 MG PO HS, (Reported) Entered as Reported by: TROY HAQUE on 01/03/22 1127 Venlafaxine HCl (Venlafaxine HCl ER) 150 Mg Cap.er.24h, 150 MG PO DAILY, (Reported) Entered as Reported by: TEJA PORTILLO on 08/12/21 1217 Zinc Amino Acid Chelate (Zinc) 50 Mg Tablet, 50 MG PO DAILY, (Reported) Entered as Reported by: TEJA PORTILLO on 08/12/21 1323 Review of Systems Review of Systems Constitutional: see HPI EENTM: ear pain ("fillness"), nose congestion Respiratory: cough; No phlegm; short of breath Cardiovascular: no symptoms reported Gastrointestinal: no symptoms reported Genitourinary: no symptoms reported Musculoskeletal: no symptoms reported Skin: no symptoms reported Psychiatric/Neurological: Anxiety All Other Systems Reviewed Negative Unless Noted: Yes Past Gkqpcvd-[id number]-[id number] Hx Patient Social History Tobacco Use?: No Substance use?: No Alcohol Use?: No Immunizations Up To Date Tetanus Booster (TDap): Unknown First/Initial COVID19 Vaccinat: 2020 Second COVID19 Vaccination Trey: 2020 Third COVID19 Vaccination Date: 2020 COVID19 Vaccine Coffee Attendant: jeremiah Seasonal Allergies Seasonal Allergies: No Past Medical History Surgery/Hospitalization HX: CHF, CKD, COPD, DM 2, HTN Surgeries: Yes (FOOT, bilat CTR, carotid endartectomy, bilat TKR) Appendectomy, Gallbladder, Orthopedic, Thyroidectomy Respiratory: Yes (CPAP - 4L NC O2, DAYTIME O2 4L) Pneumonia, Sleep Apnea, COPD Currently Using CPAP: No Currently Using BIPAP: No Cardiac: Yes (STENT; CAROTID ENDARTERECTOMY, CHF, MITRAL STENOSIS,PULMONARY HTN) Cardiomyopathy, Chronic Edema/Swelling, Coronary Artery Disease, High Cholesterol, Hypertension Neurological: Yes Neuropathy 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 Disorders: No Female 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 Disorders: Denies 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 Sexually Transmitted Disease: No HIV/AIDS: No Genitourinary: Yes UTI-Chronic Gastrointestinal: Yes Colitis, Gastroesophageal Reflux, Chronic Constipation, Hemorrhoids, Gall Bladder Disease Musculoskeletal: Yes (ARTHRITIS, spinal stenosis) Degenerate Disk Disease, Arthritis Endocrine: Yes Diabetes, Insulin dep, Hypothyroidsim HEENT: Yes (nosebleeds) Cataract Loss of Vision: Bilateral Hearing Impairment: Denies Cancer: No Psychosocial: Yes Anxiety, Depression Integumentary: Yes (RASH) Blood Disorders: Yes (ANEMIA) Adverse Reaction/Blood Tranf: No Family Medical History Alzheimer's disease G8 SISTER Diabetes mellitus 19 FATHER Hypertension 19 FATHER 19 MOTHER Myocardial infarction 19 FATHER 19 MOTHER Neoplasm G8 SISTER No Pertinent Family Hx Noncontributory Physical Exam Vital Signs - First Documented 05/02/22 18:22 Pulse 82 Resp 20 B/P (MAP) 130/79 (96) Pulse Ox 100 O2 Delivery Nasal Cannula Capillary Refill : Less Than 3 Seconds Height: 5'4.00" Weight: 246lbs. 6.0oz. [id number]; 39.00 BMI Method:Stated General Appearance: WD/WN, no apparent distress Eyes: Bilateral Eye Normal Inspection, Bilateral Eye PERRL, Bilateral Eye EOMI HEENT: PERRL/EOMI, pharynx normal, other (bilateral TM's partially occluded by cerumen however visualised portions appear normal.) Neck: full range of motion, normal inspection Respiratory: lungs clear, no respiratory distress, no accessory muscle use, other (diminished throughout) Cardiovascular: regular rate, rhythm Gastrointestinal: normal bowel sounds, non tender, soft Extremities: normal range of motion, normal inspection, swelling (minimal LE edema bilaterally) Neurologic/Psychiatric: alert, normal mood/affect, oriented x 3 Skin: normal color, warm/dry Progress/Results/Core Measures Suspected Sepsis SIRS Temperature: Pulse: 82 Respiratory Rate: 20 Laboratory Tests 05/02/22 18:45: White Blood Count 19.9H Blood Pressure 130 /79 Mean: 96 Laboratory Tests 05/02/22 18:45: Creatinine 1.56H, Platelet Count 212 Results/Orders Lab Results Laboratory Tests Test 05/02/22 18:45 Range/Units White Blood Count 19.9 H 4.3-11.0 10^3/uL Red Blood Count 3.68 L 3.80-5.11 10^6/uL Hemoglobin 12.3 11.5-16.0 g/dL Hematocrit 36 35-52 % Mean Corpuscular Volume 98 80-99 fL Mean Corpuscular Hemoglobin 33 25-34 pg Mean Corpuscular Hemoglobin Concent 34 32-36 g/dL Red Cell Distribution Width 13.9 10.0-14.5 % Platelet Count 212 130-400 10^3/uL Mean Platelet Volume 10.1 9.0-12.2 fL Immature Granulocyte % (Auto) 0 % Neutrophils (%) (Auto) 89 H 42-75 % Lymphocytes (%) (Auto) 5 L 12-44 % Monocytes (%) (Auto) 4 0-12 % Eosinophils (%) (Auto) 1 0-10 % Basophils (%) (Auto) 1 0-10 % Neutrophils # (Auto) 17.7 H 1.8-7.8 10^3/uL Lymphocytes # (Auto) 1.0 1.0-4.0 10^3/uL Monocytes # (Auto) 0.9 0.0-1.0 10^3/uL Eosinophils # (Auto) 0.2 0.0-0.3 10^3/uL Basophils # (Auto) 0.1 0.0-0.1 10^3/uL Immature Granulocyte # (Auto) 0.1 0.0-0.1 10^3/uL Neutrophils % (Manual) 90 % Lymphocytes % (Manual) 6 % Monocytes % (Manual) 2 % Eosinophils % (Manual) 2 % Basophils % (Manual) 0 % Band Neutrophils 0 % Anisocytosis SLIGHT Sodium Level 135 135-145 MMOL/L Potassium Level 4.6 3.6-5.0 MMOL/L Chloride Level 93 L 98-107 MMOL/L Carbon Dioxide Level 30 21-32 MMOL/L Anion Gap 12 5-14 MMOL/L Blood Urea Nitrogen 29 H 7-18 MG/DL Creatinine 1.56 H 0.60-1.30 MG/DL Estimat Glomerular Filtration Rate 36 BUN/Creatinine Ratio 19 Glucose Level 322 H 70-105 MG/DL Calcium Level 9.1 8.5-10.1 MG/DL My Orders Orders - MARY,CROW M MD Ekg Tracing (05/02/22 18:50) Ed Iv/Invasive Line Start (05/02/22 19:15) Cbc With Automated Diff (05/02/22 19:15) Basic Metabolic Panel (05/02/22 19:15) Chest 1 View, Ap/Pa Only (05/02/22 19:15) Manual Differential (05/02/22 18:45) Ceftriaxone 1 Gm Pre-Mix (Rocephin 1 Gm (05/02/22 20:30) Medications Given in ED Current Medications Medications Dose Ordered Sig/Katrina Route Start Time Stop Time Status Last Admin Dose Admin Ceftriaxone Sodium/Dextrose 50 ml @ 100 mls/hr ONCE ONCE IV 05/02/22 20:30 05/02/22 20:50 DC 05/02/22 20:29 100 MLS/HR Vital Signs/I&O 05/02/22 05/02/22 18:22 20:41 Pulse 82 80 Resp 20 20 B/P (MAP) 130/79 (96) 120/82 Pulse Ox 100 98 O2 Delivery Nasal Cannula 05/03/22 00:00 Intake Total 50 ml Balance 50 ml Capillary Refill : Less Than 3 Seconds Blood Pressure Mean: 96 Progress Note : Time: 20:19 Progress Note Patient seen and evaluated, 66-year-old with chronic COPD, congestive failure. Evaluation today includes physical exam, CBC, chemistry, chest x-ray. Patient's physical exam is pertinent for occasional crackles and overall diminished breath sounds on auscultation. No expiratory wheezes are noted. No respiratory distress. On 4 L she is satting 99%. She is not tachycardic nor hypotensive. She has no lower extremity edema, calf cramping or tenderness to palpation. Heart is regular without murmur. HEENT exam is as documented/unremarkable. Differential diagnosis includes COPD exacerbation, pneumonia, acute bronchitis, sepsis. Labs reviewed, CBC shows a white count of 19,000. Chemistry shows chronic kidney disease with no acute changes. BNP was considered but not ordered due to no concerning findings on physical exam. Chest x-ray is unremarkable for any acute infiltrate or effusion. Normal mediastinal structures. No concern at this time for acute COPD exacerbation as the patient is not wheezing or in respiratory distress. She does not have pneumonia on ches t x-ray. Her vital signs and overall clinical picture as well as labs are not concerning for sepsis in spite of her elevated white count. She is not febrile, tachycardic or hypotensive. She is not in any distress sepsis is very low on the list in the differential. Patient is treated in the emergency room with a gram of Rocephin. She was prescribed methylprednisolone by urgent care however the patient is diabetic and due to no respiratory distress or wheezing currently we will hold off on steroids as the risk of worsening her blood sugar outweighs the benefit at this time. She was also prescribed Levaquin however due to age I think this is a poor choice and we will switch her to cefdinir. Patient is comfortable with the plan of care. She desires discharge to home. Return precautions gone over in detail with the patient. She is agreeable all questions are sought and answered. Patient is stable for discharge. ECG Initial ECG Impression Date: May 02, 2022 Initial ECG Impression Time: 18:50 Initial ECG Rate: 81 Initial ECG Rhythm: Normal Sinus Initial ECG Intervals: Normal Initial ECG Impression: Nonspecific Changes Comment No ectopy, normal sinus rhythm, normal intervals. Nonspecific ST-T wave changes over the precordium. Diagnostic Imaging Diagonstic Imaging: Xray Plain Films/CT/US/NM/MRI: chest Comments [facility], [place] NAME: RUDDY [facility]LAND [facility] REC#: [id number] PT STATUS: REG ER : 1955 PHYSICIAN: CROW HERNANDEZ MD ADMIT DATE: 05/02/22/ER Draft Date of Exam:05/02/22 CHEST 1 VIEW, AP/PA ONLY EXAM: Chest 1 view, AP/PA only. INDICATION: Cough. Congestion. COMPARISON: 01/13/2022. FINDINGS: Cardiomegaly with mild pulmonary vascular congestion, similar to the prior. No focal pulmonary opacity. No pleural effusion or pneumothorax. No acute osseous finding. Right IJ CVC tip mid SVC. IMPRESSION: Stable chest including cardiomegaly with mild pulmonary vascular congestion. No new focal pulmonary opacity. Dictated on workstation # [id number] Dict: 05/02/221949 Trans: 05/02/221952 [facility] [phone] Interpreted by: COURT RODIRGUEZ MD Electronically signed by: Departure Impression Primary Impression: COPD with acute bronchitis Disposition: 01 HOME, SELF-CARE Condition: Stable Departure-Patient Inst. Decision time for Depature: 20:23 Referrals: FERN BAILEY DO (PCP/Family) Primary Care Physician Patient Instructions: Bronchitis, Adult ED Add. Discharge Instructions: Take the CEFDINIR antibiotic twice a day starting tomorrow for 1 week. You can also take over the counter CORICIDIN HBP as needed for congestion/ runny nose. This is SAFE for people with high blood pressure. You can use your inhaler, 2 puffs every 4 - 6 hours as needed for shortness of breath/wheezing. Do not take the steroids or the levofloxacin. If you have worsening symptoms of cough, shortness of breath, especially with high fever, swelling or other worsening symptoms, please come back to the emergency department for re-evaluation. Please call Dr Bailey's office on Thursday morning for a follow up floresita next week. Scripts Cefdinir (Cefdinir) 300 Mg Capsule 300 MG PO BID, #14 CAP 0 Refills Prov: CROW HERNANDEZ MD 05/02/22 Copy Copies To 1: FERN BAILEY KATHRYN M MD May 02, 2022 19:21
[2022-05-02 19:25] LABS: BASOPHILS # (AUTO) 0.1 10^3/uL (0.0-0.1); BASOPHILS % (AUTO) 1 % (0-10); EOSINOPHILS # (AUTO) 0.2 10^3/uL (0.0-0.3); EOSINOPHILS % (AUTO) 1 % (0-10); HEMATOCRIT 36 % (35-52); HEMOGLOBIN 12.3 g/dL (11.5-16.0); LYMPHOCYTES % (AUTO) 5 % (12-44); MEAN CORPUSCULAR HEMOGLOBIN 33 pg (25-34); MEAN CORPUSCULAR HGB CONC 34 g/dL (32-36); MEAN CORPUSCULAR VOLUME 98 fL (80-99); MEAN PLATELET VOLUME 10.1 fL (9.0-12.2); MONOCYTES # (AUTO) 0.9 10^3/uL (0.0-1.0); MONOCYTES % (AUTO) 4 % (0-12); NEUTROPHILS # (AUTO) 17.7 10^3/uL (1.8-7.8); NEUTROPHILS % (AUTO) 89 % (42-75); PLATELET COUNT 212 10^3/uL (130-400); WHITE BLOOD COUNT 19.9 10^3/uL (4.3-11.0)
[2022-05-02 19:48] LABS: CALCIUM 9.1 MG/DL (8.5-10.1); CREATININE SERUM 1.56 MG/DL (0.60-1.30); POTASSIUM 4.6 MMOL/L (3.6-5.0)
--- NOTE | 2022-05-02 19:54 | Diagnostic Imaging Report ---
EXAM: Chest 1 view, AP/PA only. INDICATION: Cough. Congestion. COMPARISON: 01/13/2022. FINDINGS: Cardiomegaly with mild pulmonary vascular congestion, similar to the prior. No focal pulmonary opacity. No pleural effusion or pneumothorax. No acute osseous finding. Right IJ CVC tip mid SVC. IMPRESSION: Stable chest including cardiomegaly with mild pulmonary vascular congestion. No new focal pulmonary opacity. Dictated by: Dictated on workstation # [id number]
[2022-05-02 19:55] LABS: ANISOCYTOSIS SLIGHT; BAND NEUTROPHILS 0 %; BASOPHILS % (MANUAL) 0 %; EOSINOPHILS % (MANUAL) 2 %; LYMPHOCYTES % (MANUAL) 6 %; MONOCYTES % (MANUAL) 2 %; NEUTROPHILS % (MANUAL) 90 %
[2022-05-02] MEDS ORDERED: CEFD300C3 PO (20:26)
[2022-05-02] MEDS ORDERED: cefTRIAXone 1 GM PRE-MIX 50 ML IV ONE (20:30)
[2022-05-02 20:41] VITALS: BP 120/82
== END 2022-05-02 20:41 | disposition home or self-care (01) ==
LOC: EDUNIT# 17:57 → ER 17:58
DX: J44.9 Chronic obstructive pulmonary disease, unspecified (principal); I13.0 Hypertensive heart and chronic kidney disease with heart failure and stage 1 through stage 4 chronic kidney disease, or unspecified chronic kidney disease; E11.22 Type 2 diabetes mellitus with diabetic chronic kidney disease; I50.9 Heart failure, unspecified; N18.9 Chronic kidney disease, unspecified; Z79.4 Long term (current) use of insulin; Z99.81 Dependence on supplemental oxygen; Z88.0 Allergy status to penicillin
CPT/HCPCS: 36415; 71045; 80048; 85007; 85027; 93005

== ENCOUNTER → 2022-05-20 | Outpatient (CLI) | payer MEDICARE, OTHER ==
[2022-05-20 11:15] VITALS: BP 113/72
== END ==
LOC: SDC 11:10
PROVIDERS: ATTEND Internal Medicine
DX: Z45.2 Encounter for adjustment and management of vascular access device (principal)
CPT/HCPCS: 96523

== ENCOUNTER → 2022-06-26 | Outpatient (CLI) | payer MEDICARE, OTHER ==
[~2022-06-26] MED LIST changes: +MONT-47 PO; -MONT10TA21 PO
[2022-06-26 11:30] VITALS: BP 128/70
== END ==
LOC: SDC 11:01
PROVIDERS: ATTEND Internal Medicine
DX: Z45.2 Encounter for adjustment and management of vascular access device (principal)
CPT/HCPCS: 96523

== ENCOUNTER 2022-07-14 10:00 | Emergency (ER) | payer MEDICARE ==
[~2022-07-14 10:00] MED LIST changes: -GABA300S2 PO; +GABA300S3 PO
--- NOTE | 2022-07-14 10:13 | ED General ---
General Chief Complaint: General Problems/Pain Stated Complaint: WEAKNESS Source of Information: Patient Exam Limitations: No Limitations History of Present Illness Date Seen by Provider: July 14, 2022 Time Seen by Provider: 10:13 Initial Comments Patient is a 66-year-old highly anxious female who presents to the emergency room with a chief complaint of congestion, clogged nose, left ear fullness. She states its been going on about a week. She saw her primary care physician, Dr. Bailey on Thursday of last week and was placed on Mucinex as well as Tessalon Perles. Patient states that the medications are not helping her cough. She states she feels like she "gets choked" at night and has difficulty breathing. She is chronically on 4 L of oxygen daily. She denies chest pain. She is quite tearful, crying. She states she is using her nebulizer as prescribed. She states she "tries to" use a humidifier in her home. She states she is using nasal saline. No fevers or chills. She endorses burning with urination that started over the weekend. She is not currently on antibiotics. Timing/Duration: 1 Week Severity: Moderate Associated Systoms: Cough, Malaise, Shortness of Air Allergies and Home Medications Allergies Coded Allergies: Penicillins (Verified Allergy, Unknown, VOMITING, 12/09/21) meperidine (Verified Allergy, Unknown, VOMITING, 12/09/21) morphine (Unverified Allergy, Unknown, RASH, BREATHING DIFFICULTY, 12/09/21) propoxyphene (Verified Allergy, Unknown, 12/09/21) topiramate (Verified Allergy, Unknown, LOSS OF EYESIGHT, 12/09/21) codeine (Verified Adverse Reaction, Unknown, UPSET STOMACH, 12/09/21) dapagliflozin (Verified Adverse Reaction, Unknown, yeast infection, 12/09/21) Patient Home Medication List Home Medication List Reviewed: Yes Acetaminophen (Tylenol Extra Strength) 500 Mg Tablet, 1,000 MG PO BID PRN for PAIN-MILD, (Reported) Entered as Reported by: MOODY FRANCO on 11/02/17 1632 Albuterol Sulfate (Ventolin Hfa) 90 Mcg Hfa.aer.ad, 2 PUFF INH Q6H PRN for SHORTNESS OF BREATH, (Reported) Entered as Reported by: TROY HAQUE on 01/03/22 1127 Alprazolam (Alprazolam) 0.5 Mg Tablet, 0.5 MG PO BID PRN for ANXIETY, (Reported) Entered as Reported by: TROY HAQUE on 01/03/22 1127 Ascorbate Calcium (Vitamin C) 500 Mg Tablet, 500 MG PO DAILY, (Reported) Entered as Reported by: TEJA PORTILLO on 08/12/21 1323 Aspirin (Aspirin EC) 81 Mg Tablet.dr, 81 MG PO DAILY, (Reported) Entered as Reported by: MOODY FRANCO on 11/02/17 1632 Budesonide (Budesonide) 0.5 Mg/2 Ml Ampul.neb, 0.5 MG IH BID, (Reported) Entered as Reported by: TEJA PORTILLO on 08/12/21 1503 Bumetanide (Bumetanide) 1 Mg Tablet, 1 MG PO BID@0900,1400 Prescribed by: FERN BAILEY on 01/23/22 0616 Buspirone HCl (Buspirone HCl) 5 Mg Tablet, 5 MG PO BID, (Reported) Entered as Reported by: TROY HAQUE on 01/03/22 112 Cefdinir (Cefdinir) 300 Mg Capsule, 300 MG PO BID Prescribed by: CROW HERNANDEZ on 05/02/222025 Cholecalciferol (Vitamin D3) (Vitamin D3) 125 Mcg (5000 Unit) Tablet, 125 MCG PO DAILY, (Reported) Entered as Reported by: TEJA PORTILLO on 08/12/21 1324 Formoterol Fumarate (Perforomist) 20 Mcg/2 Ml Vial.neb, 20 MCG IH BID, (Reported) Entered as Reported by: TEJA PORTILLO on 08/12/21 1503 Gabapentin (Neurontin) 300 Mg Capsule, 300 MG PO QID, (Reported) Entered as Reported by: TEJA PORTILLO on 08/12/21 1320 Insulin Aspart (Insulin Aspart Flexpen) 100 Unit/Ml (3 Ml) Insuln.pen, 6 UNIT SQ DAILY, (Reported) Entered as Reported by: Linh Cat on 08/11/21 1009 Insulin Degludec (Tresiba Flextouch U-200) 200 Unit/Ml (3 Ml) Insuln.pen, 30 UNITS SC BID, (Reported) Entered as Reported by: MOODY FRANCO on 11/02/17 1632 Levothyroxine Sodium (Levothyroxine Sodium) 125 Mcg Tablet, 125 MCG PO DAILY, (Reported) Entered as Reported by: ALHAJI HORTA on 09/13/19 0833 Melatonin (Melatonin) 3 Mg Tablet, 3 MG PO HS, (Reported) Entered as Reported by: TROY HAQUE on 01/03/22 1127 Metoprolol Succinate (Metoprolol Succinate) 25 Mg Tab.er.24h, 25 MG PO DAILY, (Reported) Entered as Reported by: MOODY FRANCO on 11/02/17 1632 Montelukast Sodium (Montelukast Sodium) 10 Mg Tablet, 10 MG PO HS, (Reported) Entered as Reported by: TROY HAQUE on 06/20/20 1407 Pantoprazole Sodium (Pantoprazole Sodium) 40 Mg Tablet.dr, 40 MG PO DAILY, (Reported) Entered as Reported by: ALHAJI HORTA on 09/13/19 0833 Potassium Chloride (Potassium Chloride) 10 Meq Tab.er.prt, 10 MEQ PO DAILY, (Reported) Entered as Reported by: TROY HAQUE on 06/20/20 1407 Promethazine HCl (Promethazine Tablet) 25 Mg Tablet, 25 MG PO Q6H PRN for NAUSEA/VOMITING-2ND LINE, (Reported) Entered as Reported by: TROY HAQUE on 12/03/21 1230 Revefenacin (Yupelri) 175 Mcg/3 Ml Vial.neb, 175 MCG IH 1200, (Reported) Entered as Reported by: TEJA OPRTILLO on 08/12/21 1504 Sacubitril/Valsartan (Entresto 24 mg-26 mg Tablet) 24 Mg-26 Mg Tablet, 0.5 TAB PO BID Prescribed by: FERN BAILEY on 01/23/22 0616 Sildenafil Citrate (Sildenafil) 20 Mg Tablet, 20 MG PO TID, (Reported) Entered as Reported by: Linh Cat on 08/11/21 1009 Simvastatin (Simvastatin) 10 Mg Tablet, 10 MG PO HS, (Reported) Entered as Reported by: Linh Cat on 08/11/21 1009 Trazodone HCl (Trazodone HCl) 50 Mg Tablet, 150 MG PO HS, (Reported) Entered as Reported by: TROY HAQUE on 01/03/22 1127 Venlafaxine HCl (Venlafaxine HCl ER) 150 Mg Cap.er.24h, 150 MG PO DAILY, (Reported) Entered as Reported by: TEJA PORTILLO on 08/12/21 1217 Zinc Amino Acid Chelate (Zinc) 50 Mg Tablet, 50 MG PO DAILY, (Reported) Entered as Reported by: TEJA PORTILLO on 08/12/21 1323 Review of Systems Review of Systems Constitutional: see HPI EENTM: nose congestion Respiratory: cough, phlegm, short of breath Cardiovascular: no symptoms reported Gastrointestinal: no symptoms reported Genitourinary: dysuria Musculoskeletal: no symptoms reported Skin: no symptoms reported Hematologic/Lymphatic: Other ("night sweats" about 2 weeks) Past Evxwern-Svzsrb-Ofvyky Hx Patient Social History Tobacco Use?: No Use of E-Cig and/or Vaping dev: No Substance use?: No Alcohol Use?: No Pt feels they are or have been: No Immunizations Up To Date Tetanus Booster (TDap): Unknown First/Initial COVID19 Vaccinat: 2020 Second COVID19 Vaccination Trey: 2020 Third COVID19 Vaccination Date: 2020 Seasonal Allergies Seasonal Allergies: No Past Medical History Surgery/Hospitalization HX: CHF, CKD, COPD, DM 2, HTN Surgeries: Yes (FOOT, bilat CTR, carotid endartectomy, bilat TKR) Appendectomy, Gallbladder, Orthopedic, Thyroidectomy Respiratory: Yes (CPAP - 4L NC O2, DAYTIME O2 4L) Pneumonia, Sleep Apnea, COPD Currently Using CPAP: No Currently Using BIPAP: No Cardiac: Yes (STENT; CAROTID ENDARTERECTOMY, CHF, MITRAL STENOSIS,PULMONARY HTN) Cardiomyopathy, Chronic Edema/Swelling, Coronary Artery Disease, High Cholesterol, Hypertension Neurological: Yes Neuropathy 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 Disorders: No Female 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 Disorders: Denies 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 Sexually Transmitted Disease: No HIV/AIDS: No Genitourinary: Yes UTI-Chronic Gastrointestinal: Yes Colitis, Gastroesophageal Reflux, Chronic Constipation, Hemorrhoids, Gall B ladder Disease Musculoskeletal: Yes (ARTHRITIS, spinal stenosis) Degenerate Disk Disease, Arthritis Endocrine: Yes Diabetes, Insulin dep, Hypothyroidsim HEENT: Yes (nosebleeds) Cataract Loss of Vision: Bilateral Hearing Impairment: Denies Cancer: No Psychosocial: Yes Anxiety, Depression Integumentary: Yes (RASH) Blood Disorders: Yes (ANEMIA) Adverse Reaction/Blood Tranf: No Family Medical History Alzheimer's disease G8 SISTER Diabetes mellitus 19 FATHER Hypertension 19 FATHER 19 MOTHER Myocardial infarction 19 FATHER 19 MOTHER Neoplasm G8 SISTER No Pertinent Family Hx Noncontributory Physical Exam Vital Signs Vital Signs - First Documented 07/14/22 10:02 Temp 36.4 Pulse 85 Resp 23 B/P (MAP) 108/97 (101) Pulse Ox 97 O2 Delivery Nasal Cannula O2 Flow Rate 4.00 Capillary Refill : Height, Weight, BMI Height: 5'4.00" Weight: 246lbs. 6.0oz. 111.216979uj; 39.00 BMI Method:Stated General Appearance: WD/WN, Anxious, Obese Eyes: Bilateral Eye Normal Inspection, Bilateral Eye PERRL, Bilateral Eye EOMI HEENT: PERRL/EOMI, Pharynx Normal, TM Abnormal (L) (slightly opaque) Neck: Normal Inspection Respiratory: Lungs Clear, Normal Breath Sounds, No Accessory Muscle Use, No Respiratory Distress Gastrointestinal: Non Tender, Soft Extremity: Normal Inspection, Normal Range of Motion, No Pedal Edema Neurologic/Psychiatric: Alert, Oriented x3, No Motor/Sensory Deficits, outside operator II- XII Norm as Tested, Depressed Affect, Other (anxious) Skin: Normal Color, Warm/Dry Progress/Results/Core Measures Suspected Sepsis SIRS Temperature: Pulse: Respiratory Rate: Blood Pressure / Mean: Results/Orders Lab Results Laboratory Tests Test 07/14/22 10:36 Range/Units Urine Color YELLOW Urine Clarity CLEAR Urine pH 6.0 5-9 Urine Specific [place] 1.010 L 1.016-1.022 Urine Protein TRACE H NEGATIVE Urine Glucose (UA) NEGATIVE NEGATIVE Urine Ketones NEGATIVE NEGATIVE Urine Nitrite NEGATIVE NEGATIVE Urine Bilirubin NEGATIVE NEGATIVE Urine Urobilinogen 1.0 < = 1.0 MG/DL Urine Leukocyte Esterase NEGATIVE NEGATIVE Urine RBC (Auto) NEGATIVE NEGATIVE Urine RBC NONE /HPF Urine WBC RARE /HPF Urine Squamous Epithelial Cells 25-50 H /HPF Urine Crystals NONE /LPF Urine Bacteria FEW H /HPF Urine Casts NONE /LPF Urine Mucus NEGATIVE /LPF Urine Culture Indicated NO My Orders Orders - CROW HERNANDEZ MD Ua Culture If Indicated (07/14/22 10:25) Vital Signs/I&O 07/14/22 07/14/22 10:02 10:10 Temp 36.4 Pulse 85 Resp 23 B/P (MAP) 108/97 (101) Pulse Ox 97 O2 Delivery Nasal Cannula Nasal Cannula O2 Flow Rate 4.00 4.00 Capillary Refill : Departure Impression Primary Impression: Congestion of upper airway Additional Impression: Anxiety about health Disposition: HOME, SELF-CARE Condition: Stable Departure-Patient Inst. Decision time for Depature: 11:11 Referrals: FERN BAILEY DO (PCP/Family) Primary Care Physician Patient Instructions: Acute Bronchitis, Child (DC) Add. Discharge Instructions: Drink plenty of fluids to stay well-hydrated. You should use a COOL MIST humidifier in your house at all times while you are congested. Nasal SALINE spray as often as you need it. Continue the Mucinex and Perles. You can also take over the counter CORICIDIN HBP for cough and congestion. If you run fever, have worsening shortness of breath or any other emergent, concerning symptoms, please return to the Emergency Department for re- evaluation. Copy Copies To 1: FERN BAILEY KATHRYN M MD July 14, 2022 10:13
[2022-07-14 10:47] LABS: BILIRUBIN,URINE NEGATIVE (NEGATIVE); CLARITY,URINE CLEAR; COLOR,URINE YELLOW; GLUCOSE, URINE (UA) NEGATIVE (NEGATIVE); KETONES,URINE NEGATIVE (NEGATIVE); LEUKOCYTE ESTERASE ,URINE NEGATIVE (NEGATIVE); NITRITE,URINE NEGATIVE (NEGATIVE); PROTEIN,URINE TRACE (NEGATIVE)
[2022-07-14 11:01] LABS: BACTERIA,URINE FEW /HPF; SQUAMOUS EPITHELIAL CELL,UR 25-50 /HPF; WBC,URINE RARE /HPF
[2022-07-14 11:16] VITALS: BP 120/69
== END 2022-07-14 12:00 | disposition home or self-care (01) ==
LOC: EDUNIT# 10:00 → ER 10:01
DX: R09.89 Other specified symptoms and signs involving the circulatory and respiratory systems (principal); F41.9 Anxiety disorder, unspecified; G47.30 Sleep apnea, unspecified; J44.9 Chronic obstructive pulmonary disease, unspecified; E66.9 Obesity, unspecified; Z68.39 Body mass index [BMI] 39.0-39.9, adult; Z99.89 Dependence on other enabling machines and devices; Z99.81 Dependence on supplemental oxygen
CPT/HCPCS: 81000; 99283

== ENCOUNTER → 2022-07-29 | Outpatient (CLI) | payer MEDICARE ==
[~2022-07-29] VITALS: Ht 165 cm; Wt 105.0 kg
[2022-07-29 10:30] VITALS: BP 98/79
== END ==
LOC: SDC 10:14
PROVIDERS: ATTEND Internal Medicine
DX: Z45.2 Encounter for adjustment and management of vascular access device (principal)
CPT/HCPCS: 96523

== ENCOUNTER 2022-12-21 14:06 | Emergency (ER) | payer MEDICARE, OTHER ==
[~2022-12-21] VITALS: Ht 162 cm; Wt 113.0 kg
[~2022-12-21 14:06] MED LIST changes: +DICY-11 PO; -DICY10CA12 PO; -GABA-490 PO; +GABA-491 PO; -MECL-149 PO; +MECL-291 PO
[2022-12-21] MEDS ORDERED: MILR1VIA IV (14:20)
--- NOTE | 2022-12-21 14:26 | ED Fall/Injury ---
General Chief Complaint: Trauma-Non Activation Stated Complaint: TAILBONE PAIN/FALL Source: patient Exam Limitations: no limitations History of Present Illness Date Seen by Provider: Dec 21, 2022 Time Seen by Provider: 14:11 Initial Comments 67-year-old female presents to the ER via EMS with complaint of coccyx pain. She states she fell on , states she tripped over her oxygen concentrator. She was seen at [facility] on Thursday, she had an x-ray completed but there was no radiologist to read the report. She states she does not have any pain medication at home. Patient has past medical history of CHF and chronic kidney disease. She wears 4 L of oxygen at all times and has a continuous infusion for her heart failure. She also takes Lasix 3 times a day. She reports a 3 pound water weight overnight. She took extra Lasix today as she is supposed to. She reports mildly worsened shortness of air. Allergies and Home Medications Allergies Coded Allergies: Penicillins (Verified Allergy, Unknown, VOMITING, 12/09/21) meperidine (Verified Allergy, Unknown, VOMITING, 12/09/21) morphine (Unverified Allergy, Unknown, RASH, BREATHING DIFFICULTY, 12/09/21) propoxyphene (Verified Allergy, Unknown, 12/09/21) topiramate (Verified Allergy, Unknown, LOSS OF EYESIGHT, 12/09/21) codeine (Verified Adverse Reaction, Unknown, UPSET STOMACH, 12/09/21) dapagliflozin (Verified Adverse Reaction, Unknown, yeast infection, 12/09/21) Patient Home Medication List Home Medication List Reviewed: Yes Acetaminophen (Tylenol Extra Strength) 500 Mg Tablet, 1,000 MG PO BID PRN for PAIN-MILD, (Reported) Entered as Reported by: MOODY FRANCO on 11/02/17 1632 Albuterol Sulfate (Ventolin Hfa) 90 Mcg Hfa.aer.ad, 2 PUFF INH Q6H PRN for SHORTNESS OF BREATH, (Reported) Entered as Reported by: TROY HAQUE on 01/03/22 1127 Alprazolam (Alprazolam) 0.5 Mg Tablet, 0.5 MG PO BID PRN for ANXIETY, (Reported) Entered as Reported by: TROY HAQUE on 01/03/22 1127 Ascorbate Calcium (Vitamin C) 500 Mg Tablet, 500 MG PO DAILY, (Reported) Entered as Reported by: TEJA PORTILLO on 08/12/21 1323 Aspirin (Aspirin EC) 81 Mg Tablet.dr, 81 MG PO DAILY, (Reported) Entered as Reported by: MOODY FRANCO on 11/02/17 1632 Budesonide (Budesonide) 0.5 Mg/2 Ml Ampul.neb, 0.5 MG IH BID, (Reported) Entered as Reported by: TEJA PORTILLO on 08/12/21 1503 Bumetanide (Bumetanide) 1 Mg Tablet, 1 MG PO BID@0900,1400 Prescribed by: FERN BAILEY on 01/23/22 0616 Buspirone HCl (Buspirone HCl) 5 Mg Tablet, 5 MG PO BID, (Reported) Entered as Reported by: TROY HAQUE on 01/03/22 1127 Cefdinir (Cefdinir) 300 Mg Capsule, 300 MG PO BID Prescribed by: CROW HERNANDEZ on 05/02/222025 Cholecalciferol (Vitamin D3) (Vitamin D3) 125 Mcg (5000 Unit) Tablet, 125 MCG PO DAILY, (Reported) Entered as Reported by: TEJA PORTILLO on 08/12/21 1324 Formoterol Fumarate (Perforomist) 20 Mcg/2 Ml Vial.neb, 20 MCG IH BID, (Reported) Entered as Reported by: TEJA PORTILLO on 08/12/21 1503 Gabapentin (Neurontin) 300 Mg Capsule, 300 MG PO QID, (Reported) Entered as Reported by: TEJA PORTILLO on 08/12/21 1320 Insulin Aspart (Insulin Aspart Flexpen) 100 Unit/Ml (3 Ml) Insuln.pen, 6 UNIT SQ DAILY, (Reported) Entered as Reported by: Linh Cat on 08/11/21 1009 Insulin Degludec (Tresiba Flextouch U-200) 200 Unit/Ml (3 Ml) Insuln.pen, 30 UNITS SC BID, (Reported) Entered as Reported by: MOODY FRANCO on 11/02/17 1632 Levothyroxine Sodium (Levothyroxine Sodium) 125 Mcg Tablet, 125 MCG PO DAILY, (Reported) Entered as Reported by: ALHAJI HORTA on 09/13/19 0833 Melatonin (Melatonin) 3 Mg Tablet, 3 MG PO HS, (Reported) Entered as Reported by: TROY HAQUE on 01/03/22 1127 Metoprolol Succinate (Metoprolol Succinate) 25 Mg Tab.er.24h, 25 MG PO DAILY, (Reported) Entered as Reported by: MOODY FRANCO on 11/02/17 1632 Milrinone Lactate (Milrinone Lactate) 1 Mg/Ml Vial, 1 MG IV PRN, (Reported) Entered as Reported by: ENRIQUE BARFIELD on 12/21/22 1420 Last Action: New Order Montelukast Sodium (Montelukast Sodium) 10 Mg Tablet, 10 MG PO HS, (Reported) Entered as Reported by: TROY HAQUE on 06/20/20 1407 Pantoprazole Sodium (Pantoprazole Sodium) 40 Mg Tablet.dr, 40 MG PO DAILY, (Reported) Entered as Reported by: ALHAJI HORTA on 09/13/19 0833 Potassium Chloride (Potassium Chloride) 10 Meq Tab.er.prt, 10 MEQ PO DAILY, (Reported) Entered as Reported by: TROY HAQUE on 06/20/20 1407 Promethazine HCl (Promethazine Tablet) 25 Mg Tablet, 25 MG PO Q6H PRN for NAUSEA/VOMITING-2ND LINE, (Reported) Entered as Reported by: TROY HAQUE on 12/03/21 1230 Revefenacin (Yupelri) 175 Mcg/3 Ml Vial.neb, 175 MCG IH 1200, (Reported) Entered as Reported by: TEJA PORTILLO on 08/12/21 1504 Sacubitril/Valsartan (Entresto 24 mg-26 mg Tablet) 24 Mg-26 Mg Tablet, 0.5 TAB PO BID Prescribed by: FERN BAILEY on 01/23/22 0616 Sildenafil Citrate (Sildenafil) 20 Mg Tablet, 20 MG PO TID, (Reported) Entered as Reported by: Linh Cat on 08/11/21 1009 Simvastatin (Simvastatin) 10 Mg Tablet, 10 MG PO HS, (Reported) Entered as Reported by: Linh Cat on 08/11/21 1009 Tramadol HCl (Tramadol HCl) 50 Mg Tablet, 50 MG PO Q6H PRN for PAIN Prescribed by: Юлия Saleh on 12/21/22 1511 Trazodone HCl (Trazodone HCl) 50 Mg Tablet, 150 MG PO HS, (Reported) Entered as Reported by: TROY HAQUE on 01/03/22 1127 Venlafaxine HCl (Venlafaxine HCl ER) 150 Mg Cap.er.24h, 150 MG PO DAILY, (Re ported) Entered as Reported by: TEJA PORTILLO on 08/12/21 1217 Zinc Amino Acid Chelate (Zinc) 50 Mg Tablet, 50 MG PO DAILY, (Reported) Entered as Reported by: TEJA PORTILLO on 08/12/21 1323 Review of Systems Review of Systems Constitutional: see HPI Past Rtvtdgb-Kniouk-Bwlfgo Hx Patient Social History Tobacco Use?: No Substance use?: No Alcohol Use?: No Immunizations Up To Date Tetanus Booster (TDap): Unknown First/Initial COVID19 Vaccinat: 2020 Second COVID19 Vaccination Trey: 2020 Third COVID19 Vaccination Date: 2020 Seasonal Allergies Seasonal Allergies: No Past Medical History Surgery/Hospitalization HX: CHF, CKD, COPD, DM 2, HTN, BI LAT KNEES REPLACED, EMI, HEART STENT, BI LAT CARPAL TUNNEL, BUTTONS IN HER NOSE Surgeries: Yes (FOOT, bilat CTR, carotid endartectomy, bilat TKR) Appendectomy, Gallbladder, Orthopedic, Thyroidectomy Respiratory: Yes (CPAP - 4L NC O2, DAYTIME O2 4L) Pneumonia, Sleep Apnea, COPD Currently Using CPAP: No Currently Using BIPAP: No Cardiac: Yes (STENT; CAROTID ENDARTERECTOMY, CHF, MITRAL STENOSIS,PULMONARY HTN) Cardiomyopathy, Chronic Edema/Swelling, Coronary Artery Disease, High Cholesterol, Hypertension Neurological: Yes Neuropathy 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 Disorders: No Female 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 Disorders: Denies 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 Sexually Transmitted Disease: No HIV/AIDS: No Genitourinary: Yes UTI-Chronic Gastrointestinal: Yes Colitis, Gastroesophageal Reflux, Chronic Constipation, Hemorrhoids, Gall Bladder Disease Musculoskeletal: Yes (ARTHRITIS, spinal stenosis) Degenerate Disk Disease, Arthritis Endocrine: Yes Diabetes, Insulin dep, Hypothyroidsim HEENT: Yes (nosebleeds) Cataract Loss of Vision: Bilateral Hearing Impairment: Denies Cancer: No Psychosocial: Yes Anxiety, Depression Integumentary: Yes (RASH) Blood Disorders: Yes (ANEMIA) Adverse Reaction/Blood Tranf: No Family Medical History Alzheimer's disease G8 SISTER Diabetes mellitus 19 FATHER Hypertension 19 FATHER 19 MOTHER Myocardial infarction 19 FATHER 19 MOTHER Neoplasm G8 SISTER No Pertinent Family Hx Noncontributory Physical Exam Vital Signs Vital Signs - First Documented 12/21/22 14:10 Temp 36.6 Pulse 90 Resp 18 B/P (MAP) 138/76 (96) Pulse Ox 94 O2 Delivery Nasal Cannula O2 Flow Rate 4.00 Capillary Refill : Height, Weight, BMI Height: 5'4.00" Weight: 246lbs. 6.0oz. 111.556228kl; 39.00 BMI Method:Stated General Appearance: WD/WN, no apparent distress Neck: supple, normal inspection Cardiovascular: regular rate, rhythm Respiratory: lungs clear, normal breath sounds, no respiratory distress, no accessory muscle use Back: normal inspection, no vertebral tenderness, other (Tenderness over c occyx, no hip pain) Neurologic/Psychiatric: alert, normal mood/affect Skin: normal color, warm/dry Progress/Results/Core Measures Results/Orders My Orders Orders - ЮЛИЯ RUIZ APRN Sacrum And Coccyx (12/21/22 14:19) Tramadol Tablet (Ultram Tablet) (12/21/22 14:30) Medications Given in ED Current Medications Medications Dose Ordered Sig/Katrina Route Start Time Stop Time Status Last Admin Dose Admin Tramadol HCl 50 mg ONCE ONCE PO 12/21/22 14:30 12/21/22 14:31 DC 12/21/22 14:43 50 MG Vital Signs/I&O 12/21/22 12/21/22 14:10 14:43 Temp 36.6 36.6 Pulse 90 Resp 18 B/P (MAP) 138/76 (96) Pulse Ox 94 O2 Delivery Nasal Cannula O2 Flow Rate 4.00 Progress Progress Note : Progress Note Patient seen and evaluated, resting comfortably in bed, no acute distress. Based on exam and symptoms, x-ray of coccyx and sacrum ordered. Tramadol ordered for pain. Patient is in no acute respiratory distress, lung sounds are clear, she is wearing her normal oxygen amount. Labs were considered, but deferred due to this. 1509 X-ray reviewed. Negative for acute fracture of the sacrum and coccyx. Results discussed with patient. Patient question whether she needed to be admitted for her heart failure. Patient informed that since she is in no acute respiratory distress, her oxygen saturation is within normal limits on her normal amount of oxygen, and her lungs are clear, she does not need admission at this time. Patient instructed to return if her shortness of air becomes worse or she continues to gain weight. Patient already has a plan in place to increase her Lasix when she gains weight. Patient reports she did take an extra half tablet of Lasix today as she is supposed to. Will discharge with short prescription for tramadol. Patient is stable for discharge. Discharge instruc tions and return precautions provided. Diagnostic Imaging Diagonstic Imaging: Xray Plain Films/CT/US/NM/MRI: other (sacrum and coccyx) Comments [facility], [place] NAME: RUDDY GARLAND [facility] REC#: [id number] PT STATUS: REG ER : 1955 PHYSICIAN: ЮЛИЯ RUIZ APRN ADMIT DATE: 12/21/22/ER Signed Date of Exam:12/21/22 SACRUM AND COCCYX SACRUM AND COCCYX. INDICATION: Fall with coccygeal pain. COMPARISON: None available. TECHNIQUE: 3 views of the sacrum and coccyx. FINDINGS: No displaced fracture in the sacrum or coccyx. The sacral ala are normal in appearance. SI joints are unremarkable. Symphysis pubis is normal in appearance. IMPRESSION: No displaced fracture of the sacrum or coccyx. Dictated by: Dictated on workstation # [id number] Dict: 12/21/22 1440 Trans: 12/21/22 1456 [id number] Interpreted by: GENO CORNEJO MD Electronically signed by: GENO CORNEJO MD 12/21/22 1456 Departure Impression Primary Impression: Coccyx contusion Disposition: HOME, SELF-CARE Condition: Stable Departure-Patient Inst. Decision time for Depature: 15:09 Referrals: FERN BAILEY DO (PCP/Family) Primary Care Physician Patient Instructions: Coccyx Injury Add. Discharge Instructions: Take tramadol as needed for pain. It may make you sleepy. Follow-up with your primary care provider. Return for severe shortness of breath, increasing weight gain, or any other new, concerning, or worsening symptoms. All discharge instructions reviewed with patient and/or family. Voiced understanding. Scripts Tramadol HCl (Tramadol HCl) 50 Mg Tablet 50 MG PO Q6H PRN for PAIN, #10 TAB 0 Refills Prov: ЮЛИЯ RUIZ APRN 12/21/22 ЮЛИЯ RUIZ APRN Dec 21, 2022 14:26
--- NOTE | 2022-12-21 14:43 | Diagnostic Imaging Report ---
SACRUM AND COCCYX. INDICATION: Fall with coccygeal pain. COMPARISON: None available. TECHNIQUE: 3 views of the sacrum and coccyx. FINDINGS: No displaced fracture in the sacrum or coccyx. The sacral ala are normal in appearance. SI joints are unremarkable. Symphysis pubis is normal in appearance. IMPRESSION: No displaced fracture of the sacrum or coccyx. Dictated by: Dictated on workstation # [id number]
[2022-12-21] MEDS ORDERED: TRM50T PO (15:11)
[2022-12-21 15:37] VITALS: BP 134/78
== END 2022-12-21 15:37 | disposition home or self-care (01) ==
LOC: EDUNIT# 14:06 → ER 14:08
DX: S30.0XXA Contusion of lower back and pelvis, initial encounter (principal); J44.9 Chronic obstructive pulmonary disease, unspecified; I13.0 Hypertensive heart and chronic kidney disease with heart failure and stage 1 through stage 4 chronic kidney disease, or unspecified chronic kidney disease; E11.22 Type 2 diabetes mellitus with diabetic chronic kidney disease; N18.9 Chronic kidney disease, unspecified; I50.9 Heart failure, unspecified; Z79.4 Long term (current) use of insulin; Z99.81 Dependence on supplemental oxygen; W01.0XXA Fall on same level from slipping, tripping and stumbling without subsequent striking against object, initial encounter
CPT/HCPCS: 72220